=== PATIENT | female | born 1945 | race Caucasian/White ===

== ENCOUNTER → 2017-10-15 08:09 | Outpatient (CLI) | payer MEDICARE, SELFPAY ==
[2017-10-15 10:47] LABS: ALB/GLOB Ratio 1.1 RATIO (0.9-2.4); AST(SGOT) 28 U/L (15-37); Alanine Aminotransfer ALT/SGPT 38 U/L (13-56); Albumin, Serum 3.7 g/dL (3.2-5.0); Alkaline Phosphatase 74 U/L (45-117); Anion Gap 7 (5-15); BUN 8 mg/dL (7-18); BUN/Creat Ratio 8.2 RATIO (10-20); Calcium,Total 9.2 mg/dL (8.5-10.1); Chloride 106 mmol/L (98-107); Creatinine, Serum 0.98 mg/dL (0.55-1.02); EST Glomerular Filtration Rate 59 mL/min (>60); Est Glom Filt Rate - Afr Amer 71 mL/min (>60); Globulin 3.5 g/dL (2.2-4.2); Glucose 92 mg/dL (74-106); Potassium 3.8 mmol/L (3.5-5.1); Protein, Total 7.2 g/dL (6.4-8.2); Sodium Level 142 mmol/L (136-145)
[2017-10-15 10:54] LABS: Absolute Neutrophil Count 2.5 X10^3/uL (2.0-7.7); Basophil# 0.01 X10^3/uL; Basophil% 0.3 % (0-1); Hematocrit 37.4 % (37-47); Hemoglobin 12.1 g/dl (12.0-15.0); Lymphocyte % 20.2 % (19-41); Mean Corp Hgb Conc 32.4 g/gl (32-36); Mean Corpuscular Hgb 30.5 pg (27.0-32.0); Mean Corpuscular Volume 94.2 fL (81-99); Mean Platelet Vol. 9.8 fl (6.2-12.0); Monocyte# 0.29 X10^3/uL; Monocyte% 8.4 % (0-10); Neutrophil # 2.45 X10^3/uL (2.7-7.7); Neutrophil % 70.8 % (47-70); Platelet Count 356 K/mm3 (150-450); RBC Distribution Width CV 15.3 % (11.6-14.6); RBC Distribution Width SD 50.6 fl (35.1-43.9); Red Blood Count 3.97 M/mm3 (4.2-5.4); White Blood Count 3.5 K/mm3 (4.4-11.0)
[2017-10-15 11:01] LABS: POSITIVE COUNT NO; POSITIVE DIFFERENTIAL NO; POSITIVE MORPHOLOGY NO
== END ==
PROVIDERS: Family Provider Internal Medicine; PCP Internal Medicine; Visit Provider Internal Medicine Rheumatology
DX: M06.4 Inflammatory polyarthropathy (principal); M17.0 Bilateral primary osteoarthritis of knee; M19.071 Primary osteoarthritis, right ankle and foot; K76.0 Fatty (change of) liver, not elsewhere classified; K21.9 Gastro-esophageal reflux disease without esophagitis; M47.896 Other spondylosis, lumbar region; H33.001 Unspecified retinal detachment with retinal break, right eye; E78.5 Hyperlipidemia, unspecified; Z79.899 Other long term (current) drug therapy
CPT/HCPCS: 36415; 80053; 85025

== ENCOUNTER → 2017-12-25 10:43 | Outpatient (CLI) | payer MEDICARE, SELFPAY ==
--- NOTE | 2017-12-25 10:44 | CDU_ITS ---
Reason For Study: Carotid stenosis Rt. Velocities/BP Lt. Velocities/BP Prox CCA 87.9/18.2 cm/sec. Prox CCA 134.0/24.4 cm/sec. Mid CCA 92.6/19.3 cm/sec. Mid CCA 119.0/26.7 cm/sec. Dist CCA 92.0/18.2 cm/sec. Dist CCA 86.4/23.6 cm/sec. Prox ICA 81.5/17.6 cm/sec. Prox ICA 54.3/13.8 cm/sec. Mid ICA 105.0/32.2 cm/sec. Mid ICA 87.4/27.0 cm/sec. Dist ICA 80.7/19.2 cm/sec. Dist ICA 96.7/29.3 cm/sec. Rt. ICA/CCA = 1.1. Lt. ICA/CCA = .81. Prox ECA 151.0/22.8 cm/sec. Prox ECA 113.0/17.6 cm/sec. Rt. Vert. 59.8/17.0 cm/sec. Lt. Vert. 80.3/18.8 cm/sec. Right Extracranial There is intimal thickening but no significant atherosclerotic plaque noted in the right common carotid artery. There is intimal thickening but no significant atherosclerotic plaque noted in the right internal carotid artery. There is intimal thickening but no significant atherosclerotic plaque noted in the right external carotid artery. Antegrade flow is noted in the right vertebral artery. Left Extracranial There is intimal thickening but no significant atherosclerotic plaque noted in the left common carotid artery. There is intimal thickening but no significant atherosclerotic plaque noted in the left internal carotid artery. There is heterogeneous, irregular atherosclerotic plaque noted in the left external carotid artery. Antegrade flow is noted in the left vertebral artery. Procedure Carotid Duplex 92165. Exam performed in department. Interpretation Summary Mild (<50%) stenosis right extracranial internal carotid. Mild (<50%) stenosis left extracranial internal carotid. Flow within the vertebral arteries is antegrade bilaterally. Ordering Physician: Camryn Faith Referring Physician: Camryn Faith Performed By: Adelita Ramirez RVT
== END ==
PROVIDERS: Family Provider Internal Medicine; PCP Internal Medicine; Visit Provider Internal Medicine
DX: I65.23 Occlusion and stenosis of bilateral carotid arteries (principal); Z78.0 Asymptomatic menopausal state
CPT/HCPCS: 93880

== ENCOUNTER → 2018-01-23 10:39 | Outpatient (CLI) | payer MEDICARE, SELFPAY ==
[2018-01-23 12:14] LABS: Absolute Lymphocyte Count 0.91 X10^3/ul (0.83-4.51); Absolute Neutrophil Count 3.3 X10^3/uL (2.0-7.7); Basophil# 0.01 X10^3/uL; Basophil% 0.2 % (0-1); Eosinophil# 0.06 X10^3/uL; Eosinophils% 1.3 % (0-5); Hematocrit 40.8 % (37-47); Hemoglobin 12.8 g/dl (12.0-15.0); Lymphocyte # 0.91 X10^3/ul (4.0); Lymphocyte % 19.4 % (19-41); Mean Corp Hgb Conc 31.4 g/gl (32-36); Mean Corpuscular Hgb 30.5 pg (27.0-32.0); Mean Corpuscular Volume 97.1 fL (81-99); Mean Platelet Vol. 9.4 fl (6.2-12.0); Monocyte% 8.5 % (0-10); Neutrophil % 70.4 % (47-70); POSITIVE COUNT NO; POSITIVE DIFFERENTIAL NO; POSITIVE MORPHOLOGY NO; Platelet Count 344 K/mm3 (150-450); RBC Distribution Width CV 15.3 % (11.6-14.6); RBC Distribution Width SD 53.4 fl (35.1-43.9); White Blood Count 4.7 K/mm3 (4.4-11.0)
[2018-01-23 12:49] LABS: ALB/GLOB Ratio 1.1 RATIO (0.9-2.4); AST(SGOT) 54 U/L (15-37); Alanine Aminotransfer ALT/SGPT 66 U/L (13-56); Albumin, Serum 3.9 g/dL (3.2-5.0); Alkaline Phosphatase 100 U/L (45-117); Anion Gap 6 (5-15); BUN 11 mg/dL (7-18); BUN/Creat Ratio 11.3 RATIO (10-20); Calcium,Total 9.7 mg/dL (8.5-10.1); Chloride 105 mmol/L (98-107); Creatinine, Serum 0.97 mg/dL (0.55-1.02); EST Glomerular Filtration Rate 60 mL/min (>60); Est Glom Filt Rate - Afr Amer 72 mL/min (>60); Globulin 3.7 g/dL (2.2-4.2); Glucose 105 mg/dL (74-106); Protein, Total 7.6 g/dL (6.4-8.2); Sodium Level 140 mmol/L (136-145)
== END ==
PROVIDERS: Family Provider Internal Medicine; PCP Internal Medicine; Visit Provider Internal Medicine Rheumatology
DX: M06.4 Inflammatory polyarthropathy (principal); M17.0 Bilateral primary osteoarthritis of knee; M19.071 Primary osteoarthritis, right ankle and foot; M79.7 Fibromyalgia; M47.896 Other spondylosis, lumbar region; K76.0 Fatty (change of) liver, not elsewhere classified; H33.001 Unspecified retinal detachment with retinal break, right eye; E78.5 Hyperlipidemia, unspecified; K21.9 Gastro-esophageal reflux disease without esophagitis; F41.9 Anxiety disorder, unspecified; Z79.899 Other long term (current) drug therapy
CPT/HCPCS: 36415; 80053; 85025

== ENCOUNTER → 2018-02-01 13:40 | Outpatient (CLI) | payer MEDICARE, SELFPAY ==
--- NOTE | 2018-02-01 13:41 | BI_ITS ---
MAMMOGRAPHY - BILATERAL DIAGNOSTIC REASON FOR EXAM: Female, 72 years old. Right breast lump. PERTINENT HISTORY: Daughter with breast cancer. Prior left excisional breast biopsy. TECHNIQUE: Digital bilateral breast stephanie (3D mammographic acquisition) in the CC and MLO projections. 2-D mediolateral oblique (MLO) and craniocaudad (CC) views of both breasts were obtained. CAD: Full Field Digital Mammography with Computer Added Detection was performed. COMPARISON: Comparison is made with prior study dated April 16, 2017 and February 15, 2016. FINDINGS: Breast Composition: There are scattered areas of fibroglandular density. There are no dominant masses or suspicious calcifications. Stable 4 mm well-defined nodule in the upper slightly lateral portion of the left breast. No other significant abnormalities are identified. There has been no significant change since the prior study. BI/DIAG MAMM W/CAD, BILAT IMPRESSION: Stable bilateral diagnostic mammogram. With the patient's history of a palpable abnormality in the inferior retroareolar region of the right breast, correlation with ultrasound is recommended. ASSESSMENT CATEGORY: BIRADS Category 0: Incomplete. Need additional imaging evaluation. A letter regarding these results will be sent to the patient by the facility within 30 days. Approximately 10% of breast cancers are not detected by mammography. A normal mammogram should not delay biopsy of a clinically suspicious abnormality. Electronically Signed: Zbigniew Perez MD at 15:36 EDT Tel [phone], Service support ,
--- NOTE | 2018-02-01 13:41 | US_ITS ---
STUDY: ULTRASOUND BREAST - RIGHT REASON FOR EXAM: Female, 72 years old. Palpable lump in the right breast. TECHNIQUE: Axial and longitudinal images of the RIGHT breast were performed with a high resolution ultrasound transducer. COMPARISON: Comparison is made with prior mammogram done earlier today. FINDINGS: RIGHT Breast: The inferior aspect of the right breast was examined by ultrasound. No solid or cystic mass lesion is seen. US/Breast Limited Unilateral IMPRESSION: Unremarkable sonographic examination. ASSESSMENT CATEGORY: BIRADS Category 1: Negative. A letter regarding these results will be sent to the patient by the facility within 30 days. Electronically Signed: Zbigniew Perez MD at 15:46 EDT Tel [phone], Service support ,
== END ==
PROVIDERS: Family Provider Internal Medicine; PCP Internal Medicine; Visit Provider Nurse Practitioner Women's Health
DX: N64.4 Mastodynia (principal); N63.10 Unspecified lump in the right breast, unspecified quadrant
CPT/HCPCS: 76642; 77062; 77066; G0279

== ENCOUNTER → 2018-02-19 08:18 | Outpatient (CLI) | payer MEDICARE, SELFPAY ==
[2018-02-19 10:31] LABS: Absolute Lymphocyte Count 0.84 X10^3/ul (0.83-4.51); Absolute Neutrophil Count 4.5 X10^3/uL (2.0-7.7); Basophil# 0.02 X10^3/uL; Basophil% 0.3 % (0-1); Eosinophil# 0.01 X10^3/uL; Eosinophils% 0.2 % (0-5); Hematocrit 40.5 % (37-47); Lymphocyte # 0.84 X10^3/ul (4.0); Lymphocyte % 14.5 % (19-41); Mean Corp Hgb Conc 32.1 g/gl (32-36); Mean Corpuscular Hgb 31.2 pg (27.0-32.0); Mean Corpuscular Volume 97.1 fL (81-99); Mean Platelet Vol. 9.8 fl (6.2-12.0); Monocyte# 0.44 X10^3/uL; Monocyte% 7.6 % (0-10); Neutrophil # 4.45 X10^3/uL (2.7-7.7); Neutrophil % 77.1 % (47-70); Platelet Count 358 K/mm3 (150-450); RBC Distribution Width CV 13.8 % (11.6-14.6); RBC Distribution Width SD 47.7 fl (35.1-43.9); Red Blood Count 4.17 M/mm3 (4.2-5.4); White Blood Count 5.8 K/mm3 (4.4-11.0)
[2018-02-19 10:35] LABS: POSITIVE COUNT NO; POSITIVE DIFFERENTIAL NO; POSITIVE MORPHOLOGY NO
[2018-02-19 10:50] LABS: Albumin, Serum 3.8 g/dL (3.2-5.0); BUN 9 mg/dL (7-18); BUN/Creat Ratio 9.7 RATIO (10-20); Creatinine, Serum 0.93 mg/dL (0.55-1.02); EST Glomerular Filtration Rate 63 mL/min (>60); Est Glom Filt Rate - Afr Amer 76 mL/min (>60); Globulin 3.6 g/dL (2.2-4.2); Glucose 90 mg/dL (74-106); Protein, Total 7.4 g/dL (6.4-8.2)
[2018-02-19 10:51] LABS: ALB/GLOB Ratio 1.1 RATIO (0.9-2.4); AST(SGOT) 25 U/L (15-37); Alanine Aminotransfer ALT/SGPT 34 U/L (13-56); Alkaline Phosphatase 101 U/L (45-117); Anion Gap 5 (5-15); Calcium,Total 9.7 mg/dL (8.5-10.1); Chloride 104 mmol/L (98-107); Potassium 3.9 mmol/L (3.5-5.1); Sodium Level 139 mmol/L (136-145)
== END ==
PROVIDERS: Family Provider Internal Medicine; PCP Internal Medicine; Visit Provider Internal Medicine Rheumatology
DX: M06.4 Inflammatory polyarthropathy (principal); M17.0 Bilateral primary osteoarthritis of knee; M19.071 Primary osteoarthritis, right ankle and foot; M79.7 Fibromyalgia; K76.0 Fatty (change of) liver, not elsewhere classified; M47.896 Other spondylosis, lumbar region; H33.001 Unspecified retinal detachment with retinal break, right eye; E78.5 Hyperlipidemia, unspecified; K21.9 Gastro-esophageal reflux disease without esophagitis; F41.9 Anxiety disorder, unspecified; Z79.899 Other long term (current) drug therapy
CPT/HCPCS: 36415; 80053; 85025

== ENCOUNTER → 2018-04-04 09:26 | Outpatient (CLI) | payer MEDICARE, SELFPAY ==
[2018-04-04 12:22] LABS: Absolute Lymphocyte Count 0.71 X10^3/ul (0.83-4.51); Absolute Neutrophil Count 3.5 X10^3/uL (2.0-7.7); Basophil# 0.01 X10^3/uL; Basophil% 0.2 % (0-1); Eosinophil# 0.02 X10^3/uL; Eosinophils% 0.4 % (0-5); Hematocrit 37.8 % (37-47); Lymphocyte # 0.71 X10^3/ul (4.0); Lymphocyte % 15.1 % (19-41); Mean Corp Hgb Conc 31.7 g/gl (32-36); Mean Corpuscular Hgb 30.5 pg (27.0-32.0); Mean Corpuscular Volume 95.9 fL (81-99); Mean Platelet Vol. 9.6 fl (6.2-12.0); Monocyte# 0.42 X10^3/uL; Monocyte% 8.9 % (0-10); Neutrophil # 3.53 X10^3/uL (2.7-7.7); Neutrophil % 75.2 % (47-70); Platelet Count 392 K/mm3 (150-450); RBC Distribution Width CV 13.6 % (11.6-14.6); RBC Distribution Width SD 46.1 fl (35.1-43.9); Red Blood Count 3.94 M/mm3 (4.2-5.4); White Blood Count 4.7 K/mm3 (4.4-11.0)
[2018-04-04 12:29] LABS: POSITIVE COUNT NO; POSITIVE DIFFERENTIAL NO; POSITIVE MORPHOLOGY NO
[2018-04-04 12:38] LABS: AST(SGOT) 30 U/L (15-37); Alanine Aminotransfer ALT/SGPT 32 U/L (13-56); Albumin, Serum 3.6 g/dL (3.2-5.0); Alkaline Phosphatase 91 U/L (45-117); Anion Gap 10 (5-15); BUN 14 mg/dL (7-18); BUN/Creat Ratio 13.7 RATIO (10-20); Calcium,Total 9.1 mg/dL (8.5-10.1); Chloride 107 mmol/L (98-107); Creatinine, Serum 1.02 mg/dL (0.55-1.02); EST Glomerular Filtration Rate 56 mL/min (>60); Est Glom Filt Rate - Afr Amer 68 mL/min (>60); Globulin 3.5 g/dL (2.2-4.2); Glucose 98 mg/dL (74-106); Protein, Total 7.1 g/dL (6.4-8.2); Sodium Level 144 mmol/L (136-145)
== END ==
PROVIDERS: Family Provider Internal Medicine; PCP Internal Medicine; Visit Provider Internal Medicine Rheumatology
DX: M06.4 Inflammatory polyarthropathy (principal); M17.0 Bilateral primary osteoarthritis of knee; M19.071 Primary osteoarthritis, right ankle and foot; M79.7 Fibromyalgia; K76.0 Fatty (change of) liver, not elsewhere classified; H33.001 Unspecified retinal detachment with retinal break, right eye; M47.896 Other spondylosis, lumbar region; E78.5 Hyperlipidemia, unspecified; K21.9 Gastro-esophageal reflux disease without esophagitis; F32.89 Other specified depressive episodes; F41.9 Anxiety disorder, unspecified; Z79.899 Other long term (current) drug therapy
CPT/HCPCS: 36415; 80053; 85025

== ENCOUNTER → 2018-04-16 06:06 | Outpatient (CLI) | payer MEDICARE, SELFPAY ==
--- NOTE | 2018-04-16 17:09 | STRESSREP ---
Stress Test Report Date: 04/16/2018 Procedure: Exercise tolerance test/imaging study Indications: Shortness of breath/dyspnea on exertion Consent: Per the patient Procedure: The patient exercised on a Darian protocol for 6 minutes and 30 seconds completing Stage II and 30 seconds of Stage III achieving a peak heart rate of 139 bpm (95 % predicted maximal heart rate) with a peak blood pressure 184/60 mmHg and a peak MET capacity of 7 METs. The baseline ECG demonstrated normal sinus rhythm. The peak exercise ECG demonstrated no obvious ECG changes. There were no cardiac dysrhythmias pretest, during exercise, or recovery. The functional capacity was considered average. There was no complaint of chest discomfort during exercise or recovery. The examination was discontinued secondary to dyspnea. Impression: 1. Technically adequate (percent predicted maximal heart rate greater than 85%) exercise tolerance test 2. Peak exercise ECG with no obvious ECG changes 3. There were no cardiac dysrhythmias pretest, during exercise, or recovery. 4. Nuclear images pending Myocardial perfusion imaging study: Technique: The patient was injected with 11.3 mCi of technetium 99m Cardiolite and subsequently rest SPECT Cardiolite nuclear imaging was obtained in the horizontal long, vertical long, and short axis views. The patient exercised on a Darian protocol for 6 minutes and 30 seconds completing Stage II and 30 seconds of Stage III achieving a peak heart rate of 139 bpm (95 % predicted maximal heart rate) with a peak blood pressure 184/60 mmHg and a peak MET capacity of 7 METs. The patient was injected with 32.9 mCi of technetium 99m Cardiolite and subsequently stress SPECT Cardiolite nuclear imaging was obtained in the horizontal long, vertical long, and short axis views. A gated Cardiolite study at peak stress was obtained. Interpretation: Rest and stress SPECT Cardiolite nuclear imaging status post realignment, normalization, and attenuation correction, demonstrates the appearance of relative uniform tracer uptake and myocardial perfusion appearing within normal limits. There is end systolic thickening and brightening. The gated Cardiolite study demonstrates myocardial thickening and inward wall motion. The reported LVEF is 86 %. Impression: 1. Rest and stress SPECT Cardiolite nuclear imaging demonstrate relative uniform tracer uptake and myocardial perfusion appearing within normal limits. 2. The gated Cardiolite study reports an LVEF of 86 %. This note was generated with [employer] software. It may contain incorrect words, spelling, and punctuation that were not noted in checking the note before signing.
== END ==
PROVIDERS: Family Provider Internal Medicine; PCP Internal Medicine; Visit Provider Internal Medicine
DX: R06.02 Shortness of breath (principal); R10.13 Epigastric pain
CPT/HCPCS: 76705; 78452; 93017; 93306; A9500; A4216

== ENCOUNTER → 2018-04-30 08:00 | Outpatient (CLI) | payer MEDICARE, SELFPAY | PROVIDERS: Family Provider Internal Medicine; PCP Internal Medicine; Visit Provider Surgery | DX: K44.9 Diaphragmatic hernia without obstruction or gangrene (principal); R10.13 Epigastric pain | CPT/HCPCS: 74246 ==

== ENCOUNTER → 2018-05-08 08:45 | Outpatient (CLI) | payer MEDICARE, SELFPAY ==
--- OUTSIDE RECORDS SUMMARY | 2018-05-01 07:16 | XMS RPT_ITS ---
:1945 Author Organization OHIP Support Name Relationship Address Phone AYAAN OCTAVIA Unavailable [address] + [address] [place] [address] R Unavailable Unavailable Unavailable GUPTA, KAMRYN Unavailable [address] + [place] [address] OCTAVIA BROWN Unavailable [address] + [address] [place] [address] R Unavailable Unavailable Unavailable GUPTA, KAMRYN Unavailable [address] + [place] [address] OCTAVIA BROWN Unavailable [address] + [address] [place] [address] R Unavailable Unavailable Unavailable GUPTA, KAMRYN Unavailable [address] + [place] [address] OCTAVIA BROWN Unavailable [address] + [address] [place] [address] R Unavailable Unavailable Unavailable GUPTA, KAMRYN Unavailable [address] + [place] [address] OCTAVIA BROWN Unavailable [address] + [address] [place] [address] R Unavailable Unavailable Unavailable GUPTA, KAMRYN Unavailable [address] + [place] [address] OCTAVIA BROWN Unavailable [address] + [address] [place] [address] R Unavailable Unavailable Unavailable GPUTA, KAMRYN Unavailable [address] + [place] [address] OCTAVIA BROWN Unavailable [address] + [address] [place] [address] R Unavailable Unavailable Unavailable GUPTA, KAMRYN Unavailable [address] + [place] [address] OCTAVIA BROWN Unavailable [address] + [address] [place] [address] R Unavailable Unavailable Unavailable GUPTA, KAMRYN Unavailable [address] + [place] [address] OCTAVIA BROWN Unavailable [address] + [address] [place] [address] R Unavailable Unavailable Unavailable GUPTA, KAMRYN Unavailable [address] + [place] [address] OCTAVIA BROWN Unavailable [address] + [address] [place] [address] R Unavailable Unavailable Unavailable GUPTA, KAMRYN Unavailable [address] + [place] [address] OCTAVIA BROWN Unavailable [address] + [address] [place] [address] R Unavailable Unavailable Unavailable GUPTA, KAMRYN Unavailable [address] + [place] [address] OCTAVIA BROWN Unavailable [address] + [address] [place] [address] R Unavailable Unavailable Unavailable GUPTA, KAMRYN Unavailable [address] + [place] [address] OCTAVIA BROWN JR Unavailable [address] + [address] [place] [address] R Unavailable Unavailable Unavailable GUPTA, KAMRYN Unavailable [address] + [place] [address] Care Team Providers Name Role Phone Sybil Gill Attending Unavailable Camryn Faith Primary Care Unavailable Carmine Reddy Attending Unavailable Camryn Faith Referring Unavailable Camryn Faith Primary Care Unavailable Sybil Gill Attending Unavailable Vellanki, Sybil Referring Unavailable Marcell, Camryn Primary Care Unavailable Marcell, Camryn Attending Unavailable Marcell, Camryn Referring Unavailable Marcell, Camryn Primary Care Unavailable Vellanki, Sybil Attending Unavailable Vellanki, Sybil Referring Unavailable Marcell, Camryn Primary Care Unavailable [place], Lawanda Attending Unavailable Marcell, Camryn Referring Unavailable Marcell, Camryn Primary Care Unavailable [place], Lawanda Attending Unavailable [place], Lawanda Referring Unavailable Marcell, Camryn Primary Care Unavailable Vellanki, Sybil Attending Unavailable Vellanki, Sybil Referring Unavailable Marcell, Camryn Primary Care Unavailable Vellanki, Sybil Attending Unavailable Vellanki, Sybil Referring Unavailable Marcell, Camryn Primary Care Unavailable Marcell, Camryn Attending Unavailable Marcell, Camryn Referring Unavailable Marcell, Camryn Primary Care Unavailable Cebul, Rylan Attending Unavailable Marcell, Camryn Referring Unavailable Marcell, Camryn Primary Care Unavailable Cebul, Rylan Attending Unavailable Cebul, Rylan Referring Unavailable Marcell, Camryn Primary Care Unavailable SuhailPino Attending Unavailable Suhail, Pino Veliz Referring Unavailable Marcell, Carmyn Primary Care Unavailable PROBLEMS PROBLEMS DATE TYPE CONDITION / CODE ATTENDING STATUS SOURCE 04/30/2018 Unknown K44.9 - Diaphragmatic Cebul, Rylan Active [facility] hernia without Community obstruction or Hospital gangrene / Repository K44.9(ICD-10) 04/30/2018 Unknown R10.13 - Epigastric Cebul, Rylan Active [facility] pain / R10.13(ICD-10) Community Hospital Repository 04/25/2018 Unknown K21.9 - Cebul, Rylan Active [facility] Gastro-esophageal Community reflux disease Hospital without esophagitis / Repository K21.9(ICD-10) 04/25/2018 Unknown R06.02 - Shortness of Cebul, Rylan Active [facility] breath / Community R06.02(ICD-10) Hospital Repository 04/25/2018 Unknown Z12.10 - Encounter CebuRylan suarez Active [facility] for screening for Community malignant neoplasm of Hospital intestinal tract, Repository unspecified / Z12.10(ICD-10) 02/19/2018 Unknown M06.4 - Inflammatory Vellanki, 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 / Community M06.4(ICD-10) Hospital Repository 02/19/2018 Unknown Z79.899 - Other long Vellanki, Sybil Active [facility] term (current) drug Community therapy / Hospital Z79.899(ICD-10) Repository 02/19/2018 Unknown M79.7 - Fibromyalgia Vellanki, Sybil Active [facility] / M79.7(ICD-10) Community Hospital Repository 02/19/2018 Unknown M15.9 - Vellanki, 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, Community unspecified / Hospital M15.9(ICD-10) Repository 02/19/2018 Unknown 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, Sybil Active [facility] primary Community osteoarthritis of Hospital knee / M17.0(ICD-10) Repository 02/19/2018 Unknown 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, Sybil Active [facility] osteoarthritis, right Community ankle and foot / Hospital M19.071(ICD-10) Repository 02/19/2018 Unknown K76.0 - Fatty (change Vellanki, Sybil Active [facility] of) liver, not Community elsewhere classified Hospital / K76.0(ICD-10) Repository 02/19/2018 Unknown M47.896 - Other Vellanki, Sybil Active [facility] spondylosis, lumbar Community region / Hospital M47.896(ICD-10) Repository 02/19/2018 Unknown H33.001 - Unspecified Vellanki, Sybil Active [facility] detachment [facility] with retinal break, Hospital right eye / Repository H33.001(ICD-10) 02/19/2018 Unknown E78.5 - Vellanki, Sybil Active [facility] Hyperlipidemia, Community unspecified / Hospital E78.5(ICD-10) Repository 02/19/2018 Unknown F41.9 - Anxiety Vellanki, Sybil Active [facility] disorder, unspecified Community / F41.9(ICD-10) Hospital Repository 01/29/2018 Unknown Z12.31 - Encounter [place], Lawanda Active [facility] for screening Community mammogram for Hospital malignant neoplasm of Repository breast / Z12.31(ICD-10) 01/29/2018 Unknown N64.4 - Mastodynia / Jorge, Lawanda Active [facility] N64.4(ICD-10) Community Hospital Repository 01/29/2018 Unknown N63.10 - Unspecified Jorge, Lawanda Active [facility] lump in the right Community breast, unspecified Hospital quadrant / Repository N63.10(ICD-10) 01/29/2018 Unknown Z01.411 - Encounter Lawanda Patel Active [facility] for gynecological Community examination (general) Hospital (routine) with Repository abnormal findings / Z01.411(ICD-10) 01/29/2018 Unknown N95.2 - Lawanda Patel Active [facility] Postmenopausal Community atrophic vaginitis / Hospital N95.2(ICD-10) Repository 12/25/2017 Unknown I65.23 - Occlusion Marcell, Active [facility] and stenosis of [facility] bilateral carotid Hospital arteries / Repository I65.23(ICD-10) 12/25/2017 Unknown Z78.0 - Asymptomatic Marcell, Active [facility] menopausal state / [facility] Z78.0(ICD-10) Hospital Repository 07/30/2017 Unknown INFLAMMATORY Vellanki, Sybil Active [facility] POLYARTHROPATHY / Community M06.4(ICD-10) Hospital Repository 07/30/2017 Unknown BILATERAL PRIMARY Vellanki, Sybil Active [facility] OSTEOARTHRITIS OF Community KNEE / M17.0(ICD-10) Hospital Repository 07/30/2017 Unknown PRIMARY Vellanki, Sybil Active [facility] OSTEOARTHRITIS, RIGHT Community ANKLE AND FOOT / Hospital M19.071(ICD-10) Repository 07/30/2017 Unknown FIBROMYALGIA / Vellanki, Sybil Active [facility] M79.7(ICD-10) [facility] Hospital Repository 07/30/2017 Unknown FATTY (CHANGE OF) Vellanki, Sybil Active [facility] LIVER, NOT ELSEWHERE Community CLASSIFIED / Hospital K76.0(ICD-10) Repository 07/30/2017 Unknown OTHER SPONDYLOSIS, Vellanki, Sybil Active [facility] LUMBAR REGION / Community M47.896(ICD-10) Hospital Repository 07/30/2017 Unknown UNSPECIFIED RETINAL Vellanki, Sybil Active [facility] DETACHMENT WITH Community RETINAL BREAK, RIGHT Hospital EYE / H33.001(ICD-10) Repository 07/30/2017 Unknown HYPERLIPIDEMIA, Vellanki, Sybil Active [facility] UNSPECIFIED / Community E78.5(ICD-10) Hospital Repository 07/30/2017 Unknown GASTRO-ESOPHAGEAL Vellanki, Sybil Active [facility] REFLUX DISEASE Community WITHOUT ESOPHAGITIS / Hospital K21.9(ICD-10) Repository 07/30/2017 Unknown OTHER SPECIFIED Vellanki, Sybil Active [facility] DEPRESSIVE EPISODES / Community F32.89(ICD-10) Hospital Repository 07/30/2017 Unknown ANXIETY DISORDER, Sybil Gill Active [facility] UNSPECIFIED / Community F41.9(ICD-10) Hospital Repository 07/30/2017 Unknown OTHER VIDEO PRODUCTION COORDINATOR Sybil Gill Active [facility] (CURRENT) DRUG Community THERAPY / Hospital Z79.899(ICD-10) Repository PROCEDURES PROCEDURES No Procedure Records FoundRESULTS RESULTS UPPER GI W/BA Observed: 04/30/2018 Status: F Source: [place] SWALLOW 8:02 AM [facility] [id number] [place] [address]Zevym GI w/BA SwallowMR#: [id number] Acct: [id number]: JENS BROWN Rep #: [id number]: F 72 From: Zbigniew Perez MDPCP: Camryn Faith DO Status: REG CLIStudy: Upper GI w/BA Swallow Date of Exam: 04/30/18Exam# [id number] Ordering Dr: Rylan Bird MDSTUDY: AIR-CONTRAST UPPER GI SERIES.REASON FOR EXAM: Female , 72 years old. Epigastric pain.FLUOROSCOPY TIME (if supplied): (1:00) minutes/secondsTECHNIQUE: The patient ingested barium. Multiple images of the esophagusstomach and duodenum were obtained.COMPARISON: None. FINDINGS:The esophagus is unremarkable. There is no evidence of gastroesophagealreflux. No mass lesion is seen. The patient ingested a 12 mm tablet ofbarium without any difficulty.The stomach and duodenum are unremarkable. There is no evidence ofulceration. ORDER #: [id number] RAD/Upper GI w/BA SwallowIMPRESSION:Unremarkable examination.Electronically Signed:Zbigniew Perez MD at 15:59 EDTTel [phone], Service support , IP: Camryn Faith DO; Rylan Bird MD Trailer Body Assembler:Signed SURGERY VISIT REPORT Observed: 04/25/2018 Status: F Source: [place] 9:12 AM [facility] REPOSITORY [facility] [address] [place] [address] [id number] VISITDate of Service: 04/25/18MR#: [id number] Acct: [id number]: JENS BROWN Rk Rep #: [id number]: 1945 Provider: Rylan Bird MDAge/Sex: 72/F [facility]: [facility]OCIATIONWSAStatus: SignedIntakeVital Signs04/25/18 Height 5 ft 1 in04/25/18 Weight: 149 lb 5 oz04/25/18 Body Mass Index (BMI) 28.208 Blood Pressure 166/75IntakeVisit Reasons: Acid RefluxChief Complaint: gerd, need for colonoscopyInterpreter Required: NoIs patient in pain?: NoAllergieserythromycin base Allergy (Verified 04/25/18 08:41)Rashibuprofen [From Motrin] Allergy (Verified 04/25/18 08:41)Rashdicyclomine HCl [From Bentyl] Adverse Reaction (Verified 08:41)Nauseanitrofurantoin Adverse Reaction (Verified 04/25/18 08:41) NauseaSulfa (Sulfonamide Antibiotics) Adverse Reaction (Verified 04/25/18 08:41)NauseaMedicationstraMADol [Ultram] 100 mg PO BID 09/30/13 [History Confirmed 04/25/18]Bergamot [Rosebud Bergamot] 02/12/17 [History Confirmed 04/25/18]Cyanocobalamin (Vitamin B-12) [B-12] 2,000 mcg PO DAILY 02/12/17 [ History Confirmed 04/25/18]Duloxetine HCl 60 mg PO DAILY 02/12/17 [History Confirmed 04/25/18]Folic Acid 2 mg PO DAILY 02/12/17 [History Confirmed 04/25/18] busPIRone [Buspar] 15 mg PO BID 02/12/17 [History Confirmed 04/25/18]Esomeprazole Magnesium [Nexium 24Hr] 22.3 mg PO BID 03/14/17 [History Confirmed 04/25/18]aspirin 81 mg chewable tablet 81 mg PO QDAY 01/29/18 [History Confirmed 04/25/18] cholecalciferol (vit D3) 1,000 unit-vitamin K2 (MK4) 100 mcg tablet 1 tab PO QDAY 01/29/18[ History Confirmed 04/25/18]estradiol 0.01% (0.1 mg/gram) vaginal cream See Label Instructions VAGINAL .COMPLEX #42.5 g001/29/18 [Rx Confirmed 04/25/18]ferrous sulfate 324 mg (65 mg iron) tablet,delayed release 324 mg PO QDAY tab 01/29/18[History Confirmed 04/25/18]metformin ER 500 mg tablet,extended release 24 hr 500 mg PO QDAY 01/29 [History Xszvzvqut87/23/18]gabapentin 600 mg tablet 600 mg PO DAILY 04/25/18 [ History Confirmed 04/25/18]methotrexate sodium 2.5 mg tablet 12.5 mg PO QWEEK tab [History Confirmed 04/25/18]vitamin K2 40 mcg tablet 40 mcg PO DAILY 04/25/18 [History Confirmed 04/25/18]Is last menstrual period known: NoPost menopausal: YesPatient : NoPFSHMedical HistoryScreening for intestinal cancer (Acute)Shortness of breath (Acute)Anxiety (Acute)Arthritis (Acute)Constipation (Acute)Diabetes (Acute)Diverticula of colon (Acute)GERD (gastroesophageal reflux disease) (Acute)Rheumatoid arthritis (Acute)Surgical HistoryHistory of appendectomy (Acute)History of colectomy (Acute 03/2017)History of colonoscopy (Acute 03/2017)History of esophagogastroduodenoscopy (EGD) (Acute 2014)History of hysterectomy (Acute)History of laparoscopic cholecystectomy (Acute)Family HistoryMother CVA (cerebral vascular accident)Sister DiabetesHeart diseaseBrother Heart diseaseDaughter Breast cancerSocial HistorySmoking Status: Never smokeralcohol intake: neversubstance use type: does not usecaffeine: Yeswhat type of physical activity do you participate in: noneseatbelt use: alwaysdo you feel safe at home: Yesadditional social history: Octavia- Both are retiredHPIHPIHPI: JENS BROWN, is a 72 F who presents to the office today for surgical follow-up statuspost a laparoscopic sigmoid colectomy that performed for her for intractable recurrentdiverticulitis. I perform that procedure for her on March 19, 2017. She is very pleased withher progress and has not had any recurrent disease. Her final pathology showed diverticulardisease. It is of note that the colonoscopy that I attempted prior to that procedure could notbe accomplished due to the severity of her diverticular disease. Her only previouslyaccomplished colonoscopy was in 2004.She has had a previous CT scan February 12, 2017. She has evidence of previous cholecystectomy.To the diverticular disease. Demonstrated a small umbilical hernia at that time and smallhiatal hernia.Her previous upper endoscopy was June with H. pylori negative but with antralgastritis. Distal and proximal esophageal esophageal biopsies did not show esophagitis at thattime. She did have an abnormal pH probe study at that time.On this occasion the patient is also complaining of progressive new recurrent problems ofshortness of breath. She does have her head of bed elevated. She complains of intermittentepigastric pain and breakthrough problems with her chronic Nexium. She is interested in tryingto come off of her chronic Nexium. She does not eat within 2 hours of going to sleep.ROSGeneralGeneral: Yes weight change;no appetite, fatigue, colon cancer, breast cancer or weaknessHEENTHEENT: Yes eye surgery;no difficulty swallowing, eye injury, swollen glands or hoarsenessEndoEndocrine: No thyroid disease, diabetes mellitus, thyroid cancer, Hair loss, heat intoleranceor cold intoleranceMuscMusculoskeletal: Yes rheumatoid arthritis;no back problems, arthritis, gout or joint painCardioCardiovascular: No murmur, pacemaker, heart disease, atrial fibrillation, high blood pressure,heart attack, heart stent, palpitations, shortness of breat with exertion or chest painRespRespiratory: No shortness of breath, No sleep apnea, No cough, No COPD, No asthma, Noemphysema, No wheezingGastroGastrointestinal: Yes abdominal pain, Yes nausea or vomiting, No diarrhea, Yes constipation, Noblood in stool, Yes acid reflux, No hemorrhoids, No ulcers, No gallbladder problem, Noblack,tarry stoolsHemaHematologic: No blood thinners, No blood disorders, No bleeding, No anemia, No blood clotsNeuroNeurologic: No weaknessExamConstGeneral : cooperative, healthy appearing, comfortable, no acute distressHENMTHead: normal to inspectionEyesGeneral: appearance normal, both eyes and all related structuresNeckNeck: normal visual inspectionChestChest palpation AND inspection: normal inspection of the chestRespEffort AND Inspection: normal respiratory effortAuscultation: clear to auscultation bilaterallyCardioRate: regular rateRhythm: regular rhythmHeart Sounds: no murmursGIPalpation: soft, no hepatosplenomegalyOther: Well-healed mini Pfannenstiel incision from her colectomyWell-healed larger transverse right lower quadrant incision from a previous appendectomySmall nontender umbilical herniaMuscCervical Spine: normal cervical lordosisSkinGeneral: no rashes or lesions notedNeuroGeneral: CN's II-XI intact bilaterallyExtremGeneral: no calf tendernessPsychAffect: normal affectAssessment AND PlanProblems1. Shortness of breath R06.022. Gastroesophageal reflux disease, esophagitis presence not specified K21.93. Screening for intestinal cancer Z12.10PlanI am concerned that the patient's shortness of breath may be secondary to mechanical problemswith her hiatal hernia or intractable gastroesophageal reflux disease. It is been 3 years fromher previous testing. I recommend a esophagogastroduodenoscopy with anticipated biopsies andpH probe placement. The patient may require future manometry but that will not yet bescheduled. I am also requesting a upper GI contrast study to get imaging evidence of her upperGI tract.I am recommending a screening colonoscopy. The patient's previous successful screeningcolonoscopy was 2004. Her colonoscopy performed a year ago was not successful due to theseverity of her diverticular disease.She has had an opportunity to ask and have questions answered. She is very much interested intrying to limit her come off of her proton pump inhibitor Nexium. I believe that she may be afuture candidate for reflux surgery but as noted above we would need to additionally obtainmanometry.I appreciate the ongoing opportunity of assisting with her surgical careCc: Dr. Camryn Bird M.D., F.A.C.S.OrdersOrders: CodingLevel of Care CodeOff vis,est,level 3DiagnosesShortness of breath R06.02Gastroesophageal reflux disease, esophagitis presence not specified K21.9Esophagitis presence: esophagitis presence not specifiedScreening for intestinal cancer Z12.1008/ 0912 <Electronically signed by Rylan Bird MD>Date Rylan Bird MDCosigner Signature: Date (if applicable)CC: Camryn Faith DO STRESS REPORT Observed: 04/16/2018 Status: F Source: [place] 5:14 PM [facility] RE[facility] [address] [place], [place] [address]JZ#: [id number] Acct: [id number]: JENS BROWN Rep #: [id number]: 1945 72 From: [facility] southtammie Care: Camryn Faith DO Status: REG CLIOrdering Dr: Sex: F CStress Test ReportDate: 04/16/2018Procedure: Exercise tolerance test/imaging studyIndications: Shortness of breath/dyspnea on exertionConsent: Per the patientProcedure:The patient exercised on a Darian protocol for 6 minutes and 30 seconds completing Stage II and30 seconds of Stage III achieving a peak heart rate of 139 bpm (95 % predicted maximal heartrate) with a peak blood pressure 184/60 mmHg and a peak MET capacity of 7 METs.The baseline ECG demonstrated normal sinus rhythm. The peak exercise ECG demonstrated noobvious ECG changes.There were no cardiac dysrhythmias pretest, during exercise, or recovery.The functional capacity was considered average.There was no complaint of chest discomfort during exercise or recovery.The examination was discontinued secondary to dyspnea.Impression:1. Technically adequate (percent predicted maximal heart rate greater than 85%) exercisetolerance test2. Peak exercise ECG with no obvious ECG changes3. There were no cardiac dysrhythmias pretest, during exercise, or recovery.4. Nuclear images pendingMyocardial perfusion imaging study:Technique:The patient was injected with 11.3 mCi of technetium 99m Cardiolite and subsequently rest SPECTCardiolite nuclear imaging was obtained in the horizontal long, vertical long, and short axisviews. The patient exercised on a Darian protocol for 6 minutes and 30 seconds completing StageII and 30 seconds of Stage III achieving a peak heart rate of 139 bpm (95 % predicted maximalheart rate) with a peak blood pressure 184/60 mmHg and a peak MET capacity of 7 METs. Thepatient was injected with 32.9 mCi of technetium 99m Cardiolite and subsequently stress SPECTCardiolite nuclear imaging was obtained in the horizontal long, vertical long, and short axisviews. A gated Cardiolite study at peak stress was obtained.Interpretation :Rest and stress SPECT Cardiolite nuclear imaging status post realignment, normalization, andattenuation correction, demonstrates the appearance of relative uniform tracer uptake andmyocardial perfusion appearing within normal limits. There is end systolic thickening andbrightening. The gated Cardiolite study demonstrates myocardial thickening and inward wallmotion. The reported LVEF is 86 %.Impression:1. Rest and stress SPECT Cardiolite nuclear imaging demonstrate relative uniform tracer uptakeand myocardial perfusion appearing within normal limits.2. The gated Cardiolite study reports an LVEF of 86 %.This note was generated with MediaSiloation software. It may contain incorrect words,spelling, and punctuation that were not noted in checking the note before signing.04/16/18 1714 <Electronically signed by Julio Cote MD>Date Julio Cote [facility]: Camryn Faith DO Date Dictated: 04/16/181708Date Transcribed: 1708Transcriptionist: PMSkassandra ECHOCARDIOGRAM COMPLETE Observed: 04/16/2018 Status: F Source: [place] 4:00 PM [facility]POS[facility] [address] [place], [place] [address]Inbq Wbhszzus44/14/18 0844MR#: [id number] Acct: [id number]: JENS BROWN Rep #: [id number]: 1945 72 From: Julio Cote MDAttending Dr: Camryn Faith DO Status: REG CLIOrdering Dr: Camryn Faith DO Date: 04/16/18Location: [facility] Sex: F CAdmitted:Reason For Study: SOB on exertionProcedureThis was a 2D Doppler, Color Flow transthoracic echocardiogram. The exam was of fair technicalquality due to diminished acoustic windows. The study was technically difficult. Exam performedindepartment.Left VentricleNormal LV size. Left ventricular systolic function is normal. The estimated ejection fractionis 55%. Diastolic function: considered indeterminate. No regional wall motion abnormalities noted.Right VentricleNormal RV size. Normal systolic function.AtriaNormal left atrium. Normal right atrium. No doppler evidence for ASD.Mitral ValveThere is no mitral annular calcification. Normal mitral valve. Trivial mitral valveinsufficiency.Tricuspid ValveNormal tricuspid valve. Trivial tricuspid valve insufficiency. Right ventricular systolicpressureestimated to be 28 mmHg.Aortic ValveTrisinus/trileaflet aortic valve. Mild diffuse aortic valve thickening.Pulmonic ValveThe pulmonic valve is not well visualized.Great VesselsNormal sized aortic root.Pericardium/PleuralNo pericardial effusion.MMode/2D Measurements AND CalculationsLVIDd: 3.8 cm IVSd: 0.77 cm Ao root diam: 3.1 cmLVIDs: 2.6 cm LVPWd: 0.83 cm LA dimension: 3.5 cmFS: 32.2 % __LAV( MOD-bp): 39.3 ml LVAd ap4: 24.3 cm2 SV(MOD-sp4) : 36.5 mlLAV(MOD-bp) Indexed: 23.9 ml/m2 EDV(MOD-sp4): 65.9 mlLAV(MOD-sp2): 39.4 ml EDV(sp4-el): 67.8 mlLAV(MOD-sp4): 36.8 ml LVAs ap4: 14.5 cm2ESV(MOD-sp4): 29.5 mlESV(sp4-el): 28.9 mlEF(MOD-sp4): 55.3 %EF(sp4-el): 57.4 % __SV(s p4-el): 38.9 ml LA A4 area: 15.1 cm2 RA A4 area: 12.8 ta2Bfgx MeasurementsMV dec time: 0.20 secDoppler Measurements AND CalculationsMV E max luigi: 85.0 cm/sec Lat Peak E' Luigi: 8.0 cm/sec Med Peak E' Luigi: 6.7 cm/secMV A max luigi: 110.8 cm/sec E/E' lat: 10.6 E/E' med: 12.7MV E/A: 0.77 M V V2 max: 118.5 cm/sec MV P1/2t max luigi: 93.4 cm/sec Ao V2 max: 121.5 cm/secMV max P.6 mmHg MV P1/2t: 86.2 msec Ao max P.9 mmHgMV V2 mean: 64.1 cm/sec MV dec slope: 317.5 cm/sec2 Ao V2 mean: 76.8 cm/secMV mean P.9 mmHg MVA(P1/2t): 2.6 cm2 Ao mean P.7 mmHgMV V2 VTI: 26.0 cm Ao V2 VTI: 24.3 cm ___LV V1 max: 101.3 cm/sec PA V2 max: 97.3 cm/sec TR max luigi: 250.0 cm/secLV V1 max P.1 mmHg TR max P.0 mmHgLV V1 mean P.2 mmHgLV V1 mean: 68.5 cm/secLV V1 VTI: 23.1 cmInterpretation SummaryThe study was technically difficult.Left ventricular systolic function is normal.The estimated ejection fraction is 55 %.Trivial mitral valve insufficiency.Trivial tricuspid valve insufficiency.Mild diffuse aortic valve thickening.Right ventricular systolic pressure estimated to be 28 mmHg.Diastolic function: considered indeterminate. Ordering Physician: Camryn FaithReferring Physician: Camryn FaithPerformed By: Sam Quinones RCS 04/16/18 1559Date Julio Cote MDCC: Camryn Faith DO Date Dictated: 04/16/18 0844Date Transcribed: 04/16/18 1559Transcriptionist:Signed ABDOMEN LIMITED Observed: 04/16/2018 Status: F Source: [place] 9:19 AM [facility] REPOSITORY [facility]ITALIm[facility] [address] [place] [address]Chihaxl LimitedMR#: [id number] Acct: [id number]: JENS BROWN Rep #: [id number]: 1945 F 72 From: Bairon Fernandez MDPCP: Camryn Faith DO Status: REG CLIStudy: Abdomen Limited Date of Exam: 04/16/18Exam# [id number] Ordering Dr: Camryn Faith DOSTUDY: ABDOMINAL ULTRASOUND - RIGHT UPPER QUADRANTREASON FOR VISIT: Female, 72 years old. Epigastric pain x3 monthsTECHNIQUE: Ultrasound evaluation of the right upper quadrant wasperformed with real-time and static rene-scale imaging.TECHNICAL QUALITY: Adequate.COMPARISON: 05/03/2016 FINDINGS:Liver: The liver measures 15.8 cm. There is increased echogenicityconsistent with fatty infiltration. The bile ducts are within normallimits. There is hepatic color flow. The direction of portal flow ishepatopetal. There is no demonstrated mass lesion.Gallbladder: The patient is status post cholecystectomy.Common Bile Duct (C.B.D.): The common bile duct measures 4.0 mm.Pancreas: Normal size of the head, body and tail of the pancreas. Thereis normal echogenicity of the pancreas. There is no demonstratedpancreatic mass or cyst.Right Kidney: Normal size of the right kidney. The right kidney dmybreqx81.1 x 4.4 x 4.5 cm. Normal renal cortex. The right cortex measures 1.3cm. There is no demonstrated renal mass or cyst. There is mild righthydronephrosis. Nonobstructing stones noted. ORDER #: [id number] US/Abdomen LimitedIMPRESSION:Fatty infiltration of liver, no discrete lesion.Mild right hydronephrosis, there are nonobstructing stones noted in theright kidney.Previous cholecystectomyLimited evaluation of the left lower quadrant did not demonstrate asuspicious abnormality. There is sonographic evidence of a stone in theleft kidney.Electronically Signed:Terry Fernandez MD at 12:14 Han [phone], Service support , QH: Camryn Faith Trailer Body Assembler:Signed CBC W/DIFF, AUTOMATED Collected: 04/04/2018 Status: F Source: [place] 9:31 AM [facility] REPOSITORY TYPE CODE TESTS RESULT OUT OF RANGE REFERENCE UNITS LAB L100.1000 Normal 4.4-11.0 K/mm3 WBC 4.7 LAB L100.1200 Low 4.2-5.4 M/mm3 RBC 3.94 LAB L100.1300 Normal 12.0-15.0 g/dl HGB 12.0 LAB L100.1400 Normal 37-47 % HCT 37.8 LAB L100.1500 Normal 81-99 fL MCV 95.9 LAB L100.1600 Normal 27.0-32.0 pg MCH 30.5 LAB L100.1700 Low 32-36 g/gl MCHC 31.7 LAB L100.1810 Normal 11.6-14.6 % RDW 13.6 CV LAB L100.1820 High 35.1-43.9 fl RDW 46.1 SD LAB L100.1900 Normal 150-450 K/mm3 PLT 392 LAB L100.2000 Normal 6.2-12.0 fl MPV 9.6 LAB L100.2100 High 47-70 % NEUT% 75.2 LAB L100.2200 Low 19-41 % LY% 15.1 LAB L100.2300 Normal 0-10 % MONO% 8.9 LAB L100.2400 Normal 0-5 % EO% 0.4 LAB L100.2500 Normal 0-1 % BASO% 0.2 LAB L100.2550 Normal 0.0-0.9 % IM 0.200 GRAN % Result Comment: IG% - Immature Granulocytes (promyelocytes, myelocytes andmetamyelocytes) > 1% indicates that a LEFT SHIFT is Present. LAB L100.2620 Normal 2.0-7.7 X10 3/uL Absolute Neut 3.5 LAB L100.2720 Low 0.83-4.51 X10 3/ul Absolute Lymph 0.71 Performed By: #### L100.0100 ####[facility] [address] [place], [place], [address] COMPREHENSIVE METABOLIC Collected: 04/04/2018 Status: F Source: [place] 9:31 AM [facility] REPOSITORY TYPE CODE TESTS RESULT OUT OF RANGE REFERENCE UNITS LAB L501.0100 Normal 74-106 mg/dL GLU 98 Result Comment: Please note revised GLUCOSE reference range gehrktcas44/02/2018. LAB L501.1000 Normal 7-18 mg/dL BUN 14 LAB L501.1100 Normal 0.55-1.02 mg/dL CREAT,SERUM 1.02 Result Comment: The validity of the calculated GFR AND GFRAA in patients over70 years has not been determined. Clinical correlation isessential. LAB L501.1110 Low >60 mL/min EST GFR 56 Result Comment: Non- GFR Calc LAB L501.1115 Normal >60 mL/min EST GFR - 68 AA Result Comment: GFR Calc LAB L501.1300 Normal 10-20 RATIO BUN/CRE 13.7 LAB L501.1500 Normal 6.4-8.2 g/dL T PROT 7.1 LAB L501.1800 Normal 3.2-5.0 g/dL ALB 3.6 LAB L501.1950 Normal 2.2-4.2 g/dL GLOB 3.5 LAB L501.2000 Normal 0.9-2.4 RATIO A/G 1.0 LAB L501.2200 Normal 8.5-10.1 mg/dL CA 9.1 LAB L501.4100 Normal 15-37 U/L AST 30 LAB L501.4305 Normal 45-117 U/L ALK P 91 LAB L501.4405 Normal 13-56 U/L ALT 32 LAB L501.4600 Normal 0.20-1.00 mg/dL T BILI 0.30 LAB L501.5300 Normal 136-145 mmol/L NA 144 LAB L501.5600 Normal 3.5-5.1 mmol/L K 4.0 LAB L501.5900 Normal 98-107 mmol/L CL 107 LAB L501.6100 Normal 21.0-32.0 mmol/L CO2 27.0 LAB L501.6200 Normal 5-15 GAP 10 Performed By: #### L500.4050 ####[facility] [address] [place], [place], [id number] CBC W/DIFF, AUTOMATED Collected: 02/19/2018 Status: F Source: [place] 8:29 AM [facility] REPOSITORY TYPE CODE TESTS RESULT OUT OF RANGE REFERENCE UNITS LAB L100.1000 Normal 4.4-11.0 K/mm3 WBC 5.8 LAB L100.1200 Low 4.2-5.4 M/mm3 RBC 4.17 LAB L100.1300 Normal 12.0-15.0 g/dl HGB 13.0 LAB L100.1400 Normal 37-47 % HCT 40.5 LAB L100.1500 Normal 81-99 fL MCV 97.1 LAB L100.1600 Normal 27.0-32.0 pg MCH 31.2 LAB L100.1700 Normal 32-36 g/gl MCHC 32.1 LAB L100.1810 Normal 11.6-14.6 % RDW 13.8 CV LAB L100.1820 High 35.1-43.9 fl RDW 47.7 SD LAB L100.1900 Normal 150-450 K/mm3 PLT 358 LAB L100.2000 Normal 6.2-12.0 fl MPV 9.8 LAB L100.2100 High 47-70 % NEUT% 77.1 LAB L100.2200 Low 19-41 % LY% 14.5 LAB L100.2300 Normal 0-10 % MONO% 7.6 LAB L100.2400 Normal 0-5 % EO% 0.2 LAB L100.2500 Normal 0-1 % BASO% 0.3 LAB L100.2550 Normal 0.0-0.9 % IM 0.300 GRAN % Result Comment: IG% - Immature Granulocytes (promyelocytes, myelocytes andmetamyelocytes) > 1% indicates that a LEFT SHIFT is Present. LAB L100.2620 Normal 2.0-7.7 X10 3/uL Absolute Neut 4.5 LAB L100.2720 Normal 0.83-4.51 X10 3/ul Absolute Lymph 0.84 Performed By: #### L100.0100 ####[facility] [address] [place], [address] COMPREHENSIVE METABOLIC Collected: 02/19/2018 Status: F [facility] REPOSITORY TYPE CODE TESTS RESULT OUT OF RANGE REFERENCE UNITS LAB L501.0100 Normal 74-106 mg/dL GLU 90 Result Comment: Please note revised GLUCOSE reference range hykfjcnni92/02/2018. LAB L501.1000 Normal 7-18 mg/dL BUN 9 LAB L501.1100 Normal 0.55-1.02 mg/dL CREAT,SERUM 0.93 Result Comment: The validity of the calculated GFR AND GFRAA in patients over70 years has not been determined. Clinical correlation isessential. LAB L501.1110 Normal >60 mL/min EST GFR 63 Result Comment: Non- GFR Calc LAB L501.1115 Normal >60 mL/min EST GFR - 76 AA Result Comment: GFR Calc LAB L501.1300 Low 10-20 RATIO BUN/CRE 9.7 LAB L501.1500 Normal 6.4-8.2 g/dL T PROT 7.4 LAB L501.1800 Normal 3.2-5.0 g/dL ALB 3.8 LAB L501.1950 Normal 2.2-4.2 g/dL GLOB 3.6 LAB L501.2000 Normal 0.9-2.4 RATIO A/G 1.1 LAB L501.2200 Normal 8.5-10.1 mg/dL CA 9.7 LAB L501.4100 Normal 15-37 U/L AST 25 LAB L501.4305 Normal 45-117 U/L ALK P 101 LAB L501.4405 Normal 13-56 U/L ALT 34 LAB L501.4600 Normal 0.20-1.00 mg/dL T BILI 0.60 LAB L501.5300 Normal 136-145 mmol/L NA 139 LAB L501.5600 Normal 3.5-5.1 mmol/L K 3.9 LAB L501.5900 Normal 98-107 mmol/L CL 104 LAB L501.6100 Normal 21.0-32.0 mmol/L CO2 30.0 LAB L501.6200 Normal 5-15 GAP 5 Performed By: #### L500.4050 ####[facility] [address] [place], [address] DIAG MAMM W/CAD, Observed: 02/01/2018 Status: F Source: [place] BILAT 1:41 PM [facility] REPOSITORY [facility]ITALIm[facility] Gvsizaqg[address] [place] [address]PMIL MAMM W/CAD, BILATMR#: [id number] Acct: [id number]: JENS BROWN Rep #: [id number]: F 72 From: Zbigniew Perez MDPCP: Camryn Faith DO Status: REG CLIStudy: DIAG MAMM W/CAD, BILAT Date of Exam: 02/01/18Exam# [id number] Ordering Dr: Lawanda Patel RN PERITONEAL DIALYSIS-CMAMMOGRAPHY - BILATERAL DIAGNOSTICREASON FOR EXAM: Female , 72 years old. Right breast lump.PERTINENT HISTORY: Daughter with breast cancer. Prior left excisionalbreast biopsy.TECHNIQUE: Digital bilateral breast stephanie (3D mammographic acquisition) inthe CC and MLO projections. 2-D mediolateral oblique (MLO) and craniocaudad(CC) views of both breasts were obtained. CAD: Full Field DigitalMammography with Computer Added Detection was performed.COMPARISON: Comparison is made with prior study dated April 16, 2017 andFebruary 15, 2016. FINDINGS:Breast Composition: There are scattered areas of fibroglandular density.There are no dominant masses or suspicious calcifications. Stable 4 mmwell-defined nodule in the upper slightly lateral portion of the leftbreast.No other significant abnormalities are identified. There has been nosignificant change since the prior study. BI/DIAG MAMM W/CAD, BILATIMPRESSION:Stable bilateral diagnostic mammogram. With the patient's history of apalpable abnormality in the inferior retroareolar region of the rightbreast, correlation with ultrasound is recommended. ASSESSMENT CATEGORY:BIRADS Category 0: Incomplete. Need additional imaging evaluation. Aletter regarding these results will be sent to the patient by the facilitywithin 30 days.Approximately 10% of breast cancers are not detected by mammography. Anormal mammogram should not delay biopsy of a clinically suspiciousabnormality.Electronically Signed:Zbigniew Perez MD at 15:36 EDTTel [phone], Service support , DY: CHIQUIS Patel; Camryn Faith DO Trailer Body Assembler: Signed BREAST LIMITED Observed: 02/01/2018 Status: F Source: [place] UNILATERAL 1:41 PM [facility] REPOSITORY [facility]ITALIm[facility] [address] [address]Lamtwt Limited UnilateralMR#: [id number] Acct: [id number]: JENS BROWN Rep #: [id number]: F 72 From: Zbigniew Perez MDPCP: Camryn Faith DO Status: REG CLIStudy: Breast Limited Unilateral Date of Exam: 02/01/18Exam# [id number] Ordering Dr: Lawanda Patel RN PERITONEAL DIALYSIS-CSTUDY: ULTRASOUND BREAST - RIGHTREASON FOR EXAM: Female , 72 years old. Palpable lump in the rightbreast.TECHNIQUE: Axial and longitudinal images of the RIGHT breast wereperformed with a high resolution ultrasound transducer.COMPARISON: Comparison is made with prior mammogram done earlier today. FINDINGS:RIGHT Breast:The inferior aspect of the right breast was examined by ultrasound. Nosolid or cystic mass lesion is seen. ORDER #: [id number] US/Breast Limited UnilateralIMPRESSION:Unremarkable sonographic examination. ASSESSMENT CATEGORY:BIRADS Category 1: Negative. A letter regarding these results will besent to the patient by the facility within 30 days.Electronically Signed:Zbigniew Perez MD at 15:46 Han [phone], Service support , GG: CHIQUIS Patel; Camryn Faith DO Trailer Body Assembler:Signed DEBURRER STRIP OFFICE VISIT Observed: 01/29/2018 Status: F Source: [place] REPORT 8:58 AM [facility] [place] [address] [place] [address] [id number] VISITDate of Service: 01/29/18MR#: [id number] Acct: [id number]: JENS BROWN Rep #: [id number]: 1945 Provider: CHIQUIS Hernandezge/Sex: 72/F [facility]: SignedIntakeVital Signs01/29/18 Height 5 ft 1 in01/29/18 Weight: 147 lb 6 oz01/29/18 Body Mass Index (BMI) 27.805 Blood Pressure 131/74IntakeVisit Reasons: WELLNESS CHECKChief Complaint: est annualInterpreter Required: NoIs patient in pain?: YesAllergieserythromycin base Allergy (Verified 01/29/18 08:04)Rashibuprofen [From Motrin] Allergy (Verified 01/29/18 08:04)Rashdicyclomine HCl [From Bentyl] Adverse Reaction (Verified 08:04)Nauseanitrofurantoin Adverse Reaction (Verified 01/29/18 08:04) NauseaSulfa (Sulfonamide Antibiotics) Adverse Reaction (Verified 01/29/18 08:04)NauseaMedicationstraMADol [Ultram] 100 mg PO BID 09/30/13 [History Confirmed 01/29/18]Bergamot [Rosebud Bergamot] 02/12/17 [History Confirmed 01/29/18]Cyanocobalamin (Vitamin B-12) [B-12] 2,000 mcg PO DAILY 02/12/17 [ History Confirmed 01/29/18]Duloxetine HCl 60 mg PO DAILY 02/12/17 [History Confirmed 01/29/18]Folic Acid 2 mg PO DAILY 02/12/17 [History Confirmed 01/29/18] busPIRone [Buspar] 15 mg PO BID 02/12/17 [History Confirmed 01/29/18]Esomeprazole Magnesium [Nexium 24Hr] 22.3 mg PO BID 03/14/17 [History Confirmed 01/29/18]aspirin 81 mg chewable tablet 81 mg PO QDAY 01/29/18 [History Confirmed 01/29/18] cholecalciferol (vit D3) 1,000 unit-vitamin K2 (MK4) 100 mcg tablet 1 tab PO QDAY 01/29/18[ History Confirmed 01/29/18]estradiol 0.01% (0.1 mg/gram) vaginal cream See Label Instructions VAGINAL .COMPLEX #42.5 g001/29/18 [Rx Confirmed 01/29/18]ferrous sulfate 324 mg (65 mg iron) tablet,delayed release 324 mg PO QDAY tab 01/29/18[History Confirmed 01/29/18]metformin ER 500 mg tablet,extended release 24 hr 500 mg PO QDAY 01/29 [History Ciokahbjz65/29/18]Is last menstrual period known: NoPost menopausal: YesPatient : NoBreastfeeding: NoPFSHMedical History Anxiety (Acute)Arthritis (Acute)Diverticula of colon (Acute)Family HistoryMother CVA (cerebral vascular accident)Social HistorySmoking Status: Never smokeralcohol intake: neversubstance use type: does not usecaffeine: Yeswhat type of physical activity do you participate in: noneseatbelt use: alwaysdo you feel safe at home: Yesadditional social history: Octavia- Both are retiredPregancy HistoryGravida 2 Elective abortionsHx Para 2 Spontaneous abortionsPast PregnanciesDel. DatName GA/WeeksOutcome Route [facility] WeigInflagstaff medical centert GLaoverlake hospital [facility] LgAnestheCHI St. [facility] LocaProviderFOBe ht en ia tnUnknown 1965 BrendaUnknown 1968 RichardHPIWELLNESS CHECK:Details : JENS BROWN is a 72 year old who presents for annual exam. Right breast tenderness X4 daysHistory of abnormal PAP: noLast mammogram: 04/2017History of abnormal mammogram: noColon cancer screeninFemale Reproductive HistoryQuestions: Metorrhagia: No, Sexually active: Yes, Dyspareunia: Yes, PCB: NoMenopausal Treatment: No HRT, Yes Vaginal Estrogen (premarin cream)ROSConstConstitutional: Denies fatigue, weight gain or weight lossCardioCard: Denies chest painRespResp: Denies cough or shortness of breath with activityGIGI: Denies abdominal pain, constipation, change in stools, vomiting or bloatingGUGU: Reports as per HPI;denies urinary frequency, pelvic pain, urinary urgency, vaginal discharge, vaginal itching,urinary incontinence or difficulty urinatingExamConstGeneral: cooperative, healthy appearing, no acute distress, well developedOrientation: alert, oriented to person, oriented to placeHENMTHead: normal to inspectionNeckNeck: normal visual inspectionThyroid: thyroid normalLymphatic: no lymphadenopathy notedChestBreast inspection: normal inspection of the breasts, normal inspection of the axillaeBreast palpation: normal palpation of the breasts (left), normal palpation of the axillae(bilateral), no axillary lymphadenopathy (bilateral), abnormal palpation of the breast right: mass mobile and cysticOther: 7:00 position, 3cm from areolaRespEffort AND Inspection: normal respiratory effortAuscultation: clear to auscultation bilaterallyCardioRate: regular rateRhythm: regular rhythmGIPalpation: soft, nontender, no massesRectal Exam: mass, deferredGUExternal Female Exam: normal external appearance, normal appearance of the urethraUrethra: normal appearance of the urethra, normal palpationSpeculum Exam - Vagina: normal appearance of the vagina, normal vaginal discharge, atrophicvaginal mucosa (mild)Speculum Exam - Cervix: normal appearance of the cervixBimanual Exam- Vagina AND Uterus: normal bimanual exam, uterine size normal, uterine shapenormal, uterus non-tenderBimanual Exam- Adnexa, other: normal adnexae, no adnexal masses, adnexae non-tender, pelvicsupport normalPelvic Support: normalNeuroGeneral: alert, oriented x2OzmimHcnhvl: normal affectAssessment AND PlanProblems1. Encounter for gynecological examination with abnormal finding Z01.4112. Mass of right breast N63.103. Mastodynia of right breast N64.44. Atrophic vaginitis N95.2PlanCompleted breast and pelvic examReviewed diet and exercisePap NAMammogram bilateral diagnostic with right ultrasoundColonoscopy up to dateBone density do not see in hospital records, [facility] Will checkCCF records also.RTO 1 year, prn with Britton Patel CNPOrdersOrders:MedicationsNew:CodingLevel of Care [facility] Pelvic/BreastDiagnosesEncounter for gynecological examination with abnormal finding Z01.411Gynecological examination findings: abnormal findings PRESENTMass of right breast N63.10Mastodynia of right breast N64.4Atrophic vaginitis N95. 0858 <Electronically signed by Lawanda Patel NP-C>Date Lawanda Patel RN PERITONEAL DIALYSIS-CCosigner Signature: Date (if applicable)CC: CBC W/DIFF, AUTOMATED Collected: 01/23/2018 Status: F Source: [place] 10:52 AM [facility] REPOSITORY TYPE CODE TESTS RESULT OUT OF RANGE REFERENCE UNITS LAB L100.1000 Normal 4.4-11.0 K/mm3 WBC 4.7 LAB L100.1200 Normal 4.2-5.4 M/mm3 RBC 4.20 LAB L100.1300 Normal 12.0-15.0 g/dl HGB 12.8 LAB L100.1400 Normal 37-47 % HCT 40.8 LAB L100.1500 Normal 81-99 fL MCV 97.1 LAB L100.1600 Normal 27.0-32.0 pg MCH 30.5 LAB L100.1700 Low 32-36 g/gl MCHC 31.4 LAB L100.1810 High 11.6-14.6 % RDW 15.3 CV LAB L100.1820 High 35.1-43.9 fl RDW 53.4 SD LAB L100.1900 Normal 150-450 K/mm3 PLT 344 LAB L100.2000 Normal 6.2-12.0 fl MPV 9.4 LAB L100.2100 High 47-70 % NEUT% 70.4 LAB L100.2200 Normal 19-41 % LY% 19.4 LAB L100.2300 Normal 0-10 % MONO% 8.5 LAB L100.2400 Normal 0-5 % EO% 1.3 LAB L100.2500 Normal 0-1 % BASO% 0.2 LAB L100.2550 Normal 0.0-0.9 % IM 0.200 GRAN % Result Comment: IG% - Immature Granulocytes (promyelocytes, myelocytes andmetamyelocytes) > 1% indicates that a LEFT SHIFT is Present. LAB L100.2620 Normal 2.0-7.7 X10 3/uL Absolute Neut 3.3 LAB L100.2720 Normal 0.83-4.51 X10 3/ul Absolute Lymph 0.91 Performed By: #### L100.0100 ####[facility] [address] [place], [place], [address] COMPREHENSIVE METABOLIC Collected: 01/23/2018 Status: F Source: [facility] 10:52 AM [facility] REPOSITORY TYPE CODE TESTS RESULT OUT OF RANGE REFERENCE UNITS LAB L501.0100 Normal 74-106 mg/dL GLU 105 Result Comment: Fasting Glucose result from 100 to 125 mg/dLsuggests IMPAIRED HOMEOSTASIS per A.D.A. criteria.Please note revised GLUCOSE reference range zicqvnvgy94/02/2018. LAB L501.1000 Normal 7-18 mg/dL BUN 11 LAB L501.1100 Normal 0.55-1.02 mg/dL CREAT,SERUM 0.97 Result Comment: The validity of the calculated GFR AND GFRAA in patients over70 years has not been determined. Clinical correlation isessential. LAB L501.1110 Normal >60 mL/min EST GFR 60 Result Comment: Non- GFR Calc LAB L501.1115 Normal >60 mL/min EST GFR - 72 AA Result Comment: GFR Calc LAB L501.1300 Normal 10-20 RATIO BUN/CRE 11.3 LAB L501.1500 Normal 6.4-8.2 g/dL T PROT 7.6 LAB L501.1800 Normal 3.2-5.0 g/dL ALB 3.9 LAB L501.1950 Normal 2.2-4.2 g/dL GLOB 3.7 LAB L501.2000 Normal 0.9-2.4 RATIO A/G 1.1 LAB L501.2200 Normal 8.5-10.1 mg/dL CA 9.7 LAB L501.4100 High 15-37 U/L AST 54 LAB L501.4305 Normal 45-117 U/L ALK P 100 LAB L501.4405 High 13-56 U/L ALT 66 LAB L501.4600 Normal 0.20-1.00 mg/dL T BILI 0.40 LAB L501.5300 Normal 136-145 mmol/L NA 140 LAB L501.5600 Normal 3.5-5.1 mmol/L K 4.0 LAB L501.5900 Normal 98-107 mmol/L CL 105 LAB L501.6100 Normal 21.0-32.0 mmol/L CO2 29.0 LAB L501.6200 Normal 5-15 GAP 6 Performed By: #### L500.4050 ####[facility] [address] [facility] [place], [address] CAROTID DUPLEX Observed: 12/26/2017 Status: F Source: [place] ULTRASOUND 8:25 AM [facility] REPOSITORY [facility]ITALCard[facility] [address] [place], [place] [address]Aihnfbn Duplex Hzzpspvdxj60/24/18 1043#: [id number] Acct: [id number]: JENS BROWN Rep #: [id number]: 1945 72 From: Ej Ortiz MDAchelsy Dr: Camryn Faith DO Status: REG CLIOrdering Dr: Camryn Faith DO Date: 12/25/17Location: [facility] Sex: F CAdmitted:Reason For Study: Carotid stenosisRt. Velocities/BP Lt. Velocities/BPProx CCA 87.9/18.2 cm/sec. Prox CCA 134.0/24.4 cm/sec.Mid CCA 92.6/19.3 cm/sec. Mid CCA 119.0/26.7 cm/ sec.Dist CCA 92.0/18.2 cm/sec. Dist CCA 86.4/23.6 cm/sec.Prox ICA 81.5/17.6 cm/sec. Prox ICA 54.3/13.8 cm/sec.Mid ICA 105.0/32.2 cm/sec. Mid ICA 87.4/27.0 cm/sec.Dist ICA 80.7/19.2 cm/sec. Dist ICA 96.7/29.3 cm/ sec.Rt. ICA/CCA = 1.1. Lt. ICA/CCA = .81.Prox ECA 151.0/22.8 cm/sec. Prox ECA 113.0/17.6 cm/sec.Rt. Vert. 59.8/17.0 cm/sec. Lt. Vert. 80.3/18.8 cm/sec.Right ExtracranialThere is intimal thickening but no significant atherosclerotic plaque noted in the right commoncarotid artery. There is intimal thickening but no significant atherosclerotic plaque noted intheright internal carotid artery. There is intimal thickening but no significant atheroscleroticplaque noted in the right external carotid artery. Antegrade flow is noted in the rightvertebralartery.Left ExtracranialThere is intimal thickening but no significant atherosclerotic plaque noted in the left commoncarotid artery. There is intimal thickening but no significant atherosclerotic plaque noted intheleft internal carotid artery. There is heterogeneous, irregular atherosclerotic plaque noted intheleft external carotid artery. Antegrade flow is noted in the left vertebral artery.ProcedureCarotid Duplex [id number]. Exam performed in department.Interpretation SummaryMild (<50%) stenosis right extracranial internal carotid. Mild (<50%) stenosis leftextracranialinternal carotid. Flow within the vertebral arteries is antegrade bilaterally. Ordering Physician: Camryn FaithReferring Physician: Camryn FaithPerformed By: Adelita Ramirez, RVT 12/26/17 0824Date _ Ej Ortiz [facility]: Camryn Faith DO Date Dictated: 12/25/17 1043Date Transcribed: 12/26/17 0824Transcriptionist:Signed COMPREHENSIVE METABOLIC Collected: 10/15/2017 Status: F Source: [place] PROFIL 8:15 AM [facility] REPOSITORY TYPE CODE TESTS RESULT OUT OF RANGE REFERENCE UNITS LAB L501.0100 Normal 74-106 mg/dL GLU 92 Result Comment: Please note revised GLUCOSE reference range cbqufzyfi37/02/2018. LAB L501.1000 Normal 7-18 mg/dL BUN 8 LAB L501.1100 Normal 0.55-1.02 mg/dL CREAT,SERUM 0.98 Result Comment: The validity of the calculated GFR AND GFRAA in patients over70 years has not been determined. Clinical correlation isessential. LAB L501.1110 Low >60 mL/min EST GFR 59 Result Comment: Non- GFR Calc LAB L501.1115 Normal >60 mL/min EST GFR - 71 AA Result Comment: GFR Calc LAB L501.1300 Low 10-20 RATIO BUN/CRE 8.2 LAB L501.1500 Normal 6.4-8.2 g/dL T PROT 7.2 LAB L501.1800 Normal 3.2-5.0 g/dL ALB 3.7 LAB L501.1950 Normal 2.2-4.2 g/dL GLOB 3.5 LAB L501.2000 Normal 0.9-2.4 RATIO A/G 1.1 LAB L501.2200 Normal 8.5-10.1 mg/dL CA 9.2 LAB L501.4100 Normal 15-37 U/L AST 28 LAB L501.4305 Normal 45-117 U/L ALK P 74 LAB L501.4405 Normal 13-56 U/L ALT 38 Result Comment: Please note revised ALT reference range gvhyxxoft16/28/2018. LAB L501.4600 Normal 0.20-1.00 mg/dL T BILI 0.40 LAB L501.5300 Normal 136-145 mmol/L NA 142 LAB L501.5600 Normal 3.5-5.1 mmol/L K 3.8 LAB L501.5900 Normal 98-107 mmol/L CL 106 LAB L501.6100 Normal 21.0-32.0 mmol/L CO2 29.0 LAB L501.6200 Normal 5-15 GAP 7 Performed By: #### L500.4050 ####[facility] [address] [place], [address] CBC W/DIFF, AUTOMATED Collected: 10/15/2017 Status: F Source: [place] 8:15 AM [facility] REPOSITORY TYPE CODE TESTS RESULT OUT OF RANGE REFERENCE UNITS LAB L100.1000 Low 4.4-11.0 K/mm3 WBC 3.5 LAB L100.1200 Low 4.2-5.4 M/mm3 RBC 3.97 LAB L100.1300 Normal 12.0-15.0 g/dl HGB 12.1 LAB L100.1400 Normal 37-47 % HCT 37.4 LAB L100.1500 Normal 81-99 fL MCV 94.2 LAB L100.1600 Normal 27.0-32.0 pg MCH 30.5 LAB L100.1700 Normal 32-36 g/gl MCHC 32.4 LAB L100.1810 High 11.6-14.6 % RDW 15.3 CV LAB L100.1820 High 35.1-43.9 fl RDW 50.6 SD LAB L100.1900 Normal 150-450 K/mm3 PLT 356 LAB L100.2000 Normal 6.2-12.0 fl MPV 9.8 LAB L100.2100 High 47-70 % NEUT% 70.8 LAB L100.2200 Normal 19-41 % LY% 20.2 LAB L100.2300 Normal 0-10 % MONO% 8.4 LAB L100.2400 Normal 0-5 % EO% 0.0 LAB L100.2500 Normal 0-1 % BASO% 0.3 LAB L100.2550 Normal 0.0-0.9 % IM 0.300 GRAN % Result Comment: IG% - Immature Granulocytes (promyelocytes, myelocytes andmetamyelocytes) > 1% indicates that a LEFT SHIFT is Present. LAB L100.2620 Normal 2.0-7.7 X10 3/uL Absolute Neut 2.5 LAB L100.2720 Low 0.83-4.51 X10 3/ul Absolute Lymph 0.70 Performed By: #### L100.0100 ####[facility] [address] [place], [place], [address] URGENT CARE VISIT Observed: 09/26/2017 Status: F Source: [place] REPORT 12:16 PM [facility] REPOSITORY Now [address] [id number] VISITDate of Service: 08/28/17MR#: [id number] Acct: [id number]: JENS BROWN Rep #: [id number]: 1945 Provider: Carmine Bergeron/Sex: 72/F Location: [facility] [place].NOWStatus: SignedIntakeVital Signs08/28/17 Height 5 ft 1 in08/28/17 Weight: 146 lb08/28/17 Body Mass Index (BMI) 27.6IntakeVisit Reasons: Sinus infectionInterpreter Required: NoIs patient in pain?: NoAllergieserythromycin base Allergy (Verified 08/28/17 09:42)Rashibuprofen [From Motrin] Allergy (Verified 08/28/17 09:42)Rashdicyclomine HCl [From Bentyl] Adverse Reaction (Verified 09:42)Nauseanitrofurantoin Adverse Reaction (Verified 08/28/17 09:42) NauseaSulfa (Sulfonamide Antibiotics) Adverse Reaction (Verified 08/28/17 09:42)NauseaMedicationsTraMADol [Ultram] 100 mg PO BID 09/30/13 [History Confirmed 03/20/17]Bergamot [Rosebud Bergamot] 02/12/17 [History]BusPIRone [Buspar] 15 mg PO BID 02/12/17 [History Confirmed 03/14/17]Cyanocobalamin (Vitamin B-12) [B-12] 2 ,000 mcg PO DAILY 02/12/17 [History Confirmed 03/14/17]Duloxetine HCl 60 mg PO DAILY 02/12/17 [History Confirmed 03/14/17]Folic Acid 2 mg PO DAILY 02/12/17 [History Confirmed 03/14/17]Hydroxychloroquine [Plaquenil] 200 mg PO DAILY 02/12/17 [ History Confirmed 03/14/17]Methotrexate 12.5 mg PO Q7D 02/12/17 [History Confirmed 03/14/17]Esomeprazole Magnesium [Nexium 24Hr] 22.3 mg PO BID 03/14/17 [History Confirmed 03/19/17]cephalexin 500 mg capsule 500 mg PO Q12H 10 Days #20 cap [Rx Confirmed 08/28/17]PFSHMedical History Hyperlipidemia (Chronic)Acute diverticulitis (Acute)Social HistorySmoking Status: Never smokerHPISinusitis:Details: JENS BROWN, is a 72 F who presents to the office today for complaint of sinuscongestion pressure and pain for the past 10 day. She is a pressure pain is causedintermittent headaches which is made better with ibuprofen. She also complains of slightlysore throat with postnasal drainage. No fever, chills, sweats. No chest pain or shortness ofbreath. No other associated symptoms or alleviating/aggravating factors.ROSConstConstitutional: Positive for headache(s);no fever(s), chills, night sweats or abnormal sleep patternENTENT: Positive for headache(s), nasal congestion, sinus pressure, sinus pain and nasaldischarge;no ear painRespRespiratory: No cough or shortness of breathCardioCardiology: No shortness of breath, irregular heart rhythm or fast heart rateNeuroNeurology: Positive for headache(s);no confusionPsychPsychiatric: No abnormal sleep pattern, No confusionExamConstGeneral: cooperativeHENMTHead: normal to inspectionEars: hearing grossly normal bilaterallyNose: nasal discharge purulentFace and sinus: sinus tenderness frontal and maxillaryMouth: oral mucosae normalThroat: abnormal tonsil bilaterally, postnasal drainageRespEffort AND Inspection: normal respiratory effortAuscultation: Bilateral: Clear to AuscultationCardioRate: regular rateRhythm: regular rhythmNeuroGeneral: alert, CN's II-XI intact bilaterallyPsychAppearance: grossly normalMental Status: mental status grossly normalAssessment AND Plan1. Acute non-recurrent maxillary sinusitis J01.00; J01.00StatusAcutePlanEncouraged to get plenty of rest, drink lots of clear liquids, and use Tylenol or Ibuprofen(unless contraindicated) for fever and comfort. Patient also educated on other symptomaticmanagement techniques. To be seen in 7-10 days if no improvement; sooner if worsening ofsymptoms. Patient advised of potential red flags when appropriate report to the ED. Patientverbalized understanding all the above.Plan DetailOther MedicationsNew:CodingLevel of Care CodeOff vis,new,level 3DiagnosesAcute non-recurrent maxillary sinusitis J01.00; J01.00Chronicity: acuteRecurrence: non-recurrentSinusitis location: pajuxresh90/08/18 1614 <Electronically signed by Carmine ELDER>Date Carmine Reddy PACosigner Signature: Date (if applicable)CC: CBC W/DIFF, AUTOMATED Collected: 07/16/2017 Status: F Source: [place] 7:53 AM [facility] REPOSITORY TYPE CODE TESTS RESULT OUT OF RANGE REFERENCE UNITS LAB L100.1000 Low 4.4-11.0 K/mm3 WBC 3.8 LAB L100.1200 Low 4.2-5.4 M/mm3 RBC 3.93 LAB L100.1300 Low 12.0-15.0 g/dl HGB 11.0 LAB L100.1400 Low 37-47 % HCT 36.0 LAB L100.1500 Normal 81-99 fL MCV 91.6 LAB L100.1600 Normal 27.0-32.0 pg MCH 28.0 LAB L100.1700 Low 32-36 g/gl MCHC 30.6 LAB L100.1810 High 11.6-14.6 % RDW 16.9 CV LAB L100.1820 High 35.1-43.9 fl RDW 55.4 SD LAB L100.1900 Normal 150-450 K/mm3 PLT 423 LAB L100.2000 Normal 6.2-12.0 fl MPV 9.4 LAB L100.2100 High 47-70 % NEUT% 70.4 LAB L100.2200 Normal 19-41 % LY% 20.4 LAB L100.2300 Normal 0-10 % MONO% 8.6 LAB L100.2400 Normal 0-5 % EO% 0.0 LAB L100.2500 Normal 0-1 % BASO% 0.3 LAB L100.2550 Normal 0.0-0.9 % IM 0.300 GRAN % Result Comment: IG% - Immature Granulocytes (promyelocytes, myelocytes andmetamyelocytes) > 1% indicates that a LEFT SHIFT is Present. LAB L100.2620 Normal 2.0-7.7 X10 3/uL Absolute Neut 2.7 LAB L100.2720 Low 0.83-4.51 X10 3/ul Absolute Lymph 0.78 Performed By: #### L100.0100 ####[facility] [address] [place], [address] COMPREHENSIVE METABOLIC Collected: 07/16/2017 Status: F Source: [facility] 7:53 AM [facility] REPOSITORY TYPE CODE TESTS RESULT OUT OF RANGE REFERENCE UNITS LAB L501.0100 Normal 70-110 mg/dL GLU 90 LAB L501.1000 Normal 7-18 mg/dL BUN 10 LAB L501.1100 Normal 0.55-1.02 mg/dL 0.96 CREAT,SERUM Result Comment: The validity of the calculated GFR AND GFRAA in patients over70 years has not been determined. Clinical correlation isessential. LAB L501.1110 Normal >60 mL/min EST GFR 60 Result Comment: Non- GFR Calc LAB L501.1115 Normal >60 mL/min EST GFR - 73 AA Result Comment: GFR Calc LAB L501.1300 Normal 10-20 RATIO BUN/CRE 10.4 LAB L501.1500 Normal 6.4-8.2 g/dL T PROT 7.4 LAB L501.1800 Normal 3.4-5.0 g/dL ALB 3.8 Result Comment: Please note revised Albumin AND Globulin reference rangeeffective 2017. LAB L501.1950 Normal 2.2-4.2 g/dL GLOB 3.6 LAB L501.2000 Normal 0.9-2.4 RATIO A/G 1.1 LAB L501.2200 Normal 8.5-10.1 mg/dL CA 9.2 LAB L501.4100 High 15-37 U/L AST 43 LAB L501.4305 Normal 45-117 U/L ALK P 79 LAB L501.4405 Normal 12-78 U/L ALT 54 LAB L501.4600 Normal 0.20-1.00 mg/dL T BILI 0.50 LAB L501.5300 Normal 136-145 mmol/L NA 140 LAB L501.5600 Normal 3.5-5.1 mmol/L K 3.7 LAB L501.5900 Normal 98-107 mmol/L CL 105 LAB L501.6100 Normal 21.0-32.0 mmol/L CO2 27.0 LAB L501.6200 Normal 5-15 GAP 8 Performed By: #### L500.4050 ####[facility] [address] [place], [address] ALLERGIES ALLERGIES DATE TYPE / CODE NAME / CODE REACTION SEVERITY SOURCE 04/25/2018 Drug dicyclomine Nausea Unknown Sheri Allergy/416 HCl/[id number](RXNO Community 010245([facility] ED CT) Repository 04/25/2018 Drug Sulfa (Sulfonamide Nausea Unknown Jackson Allergy/416 Antibiotics)/Z99371 Community 822297([facility] 0491([facility] ED [facility]) Repository 04/25/2018 Drug ibuprofen/[id number] Rash Unknown Jackson Allergy/416 7(RXNORM) [facility] 915475([facility] ED CT) Repository 04/25/2018 Drug erythromycin Rash Unknown Jackson Allergy/416 base/[id number](RXN Community 693533([facility] [place] [place] ED CT) Repository 04/25/2018 Drug nitrofurantoin/F006 Nausea Unknown Jackson Allergy/416 137375(RXNORM) Community 923091([facility] ED CT) Repository 02/12/2017 Drug dicyclomine Nausea Jackson Allergy/416 HCl/U601426434(RXNO Community 210923([facility] ED CT) Repository 02/12/2017 Drug Sulfa (Sulfonamide Nausea Sheri Allergy/416 Antibiotics)/C56703 Community 682375([facility] 0491([facility] ED CT) Repository 02/12/2017 Drug ibuprofen/F59961767 Rash Sheri Allergy/416 7(RXNORM) Community 344728([facility] ED CT) Repository 02/12/2017 Drug erythromycin Rash Sheri Allergy/416 base/E818494363(RXN Community 020247([facility] [place] [place] ED CT) Repository 02/12/2017 Drug nitrofurantoin/F006 Nausea Sheri Allergy/416 817173(RXNORM) [facility] 343123([facility] ED CT) Repository ENCOUNTERS ENCOUNTERS ADMIT/DISCHARGE ACCOUNT ADMITTING ENCOUNTER LOCATION SOURCE NUMBER CLASS 05/01/2018 [id number] Ambulatory Jackson Jackson 2 [facility] Hospital ing:CT Repository 04/30/2018 [id number] Ambulatory Sheri Jackson 9 [facility] Hospital ing:RAD Repository 04/25/2018/ [id number] Ambulatory BMSBuilding:B Sheri 8 7 [facility] Repository 04/16/2018 [id number] Ambulatory Sheri Jackson 0 [facility] Hospital ing:CVS Repository 04/04/2018 [id number] Ambulatory Sheri Jackson 6 [facility] Hospital ing:MTLAB Repository 02/19/2018 [id number] Ambulatory Jackson Sheri 9 [facility] Hospital ing:MTLAB Repository 02/01/2018 [id number] Ambulatory Jackson Jackson 2 [facility] Hospital ing:OPUS Repository 01/29/2018/ [id number] Ambulatory BMSBuilding:B Jackson 8 4 [facility] Repository 01/23/2018 [id number] Ambulatory Jackson Sheri 6 [facility] Hospital ing:MTLAB Repository 12/25/2017 [id number] Ambulatory Jackson Sheri 2 [facility] ing:CVS Repository 10/15/2017 [id number] Ambulatory Sheri Jackson 5 [facility] ing:MTLAB Repository 08/28/2017/ [id number] [facility]MS[facility] 07/16/2017 [id number] Ambulatory Jackson Sheri 1 [facility] ing:MTLAB Repository PAYERS PAYERS ENCOUNTER GUARANTOR PAYER SUBSCRIBER SOURCE 05/01/2018 JENS [id number] Insurance:HUMANA MOOREDOB: [place] PPOPolicy [id number] [address]Tel: (330) Number: Repository [phone] () [id number] Date:8387-45-10CN [address] [place] [address]FX: 05/01/2018 Secondary NOT GIVENUNK Jackson Insurance:SELF PAY [facility] Number: Effective Repository Date:2018-04-22 04/30/2018 JENS [id number] Insurance:HUMANA MOOREDOB: Community [place] PPOPolicy [id number] [address]Tel: [phone]) Number: Repository [phone] () [id number] Date:[id number] [address]IE: 04/30/2018 Secondary NOT GIVENUNK Sheri Insurance:SELF PAY [facility] Number: Effective Repository Date:2018-04-25 04/25/2018 JENS [id number] Insurance:HUMANA AYAANDOB: Community [place] PPOPolicy [id number] [place] [address]Tel: [phone]) Number: Repository [phone] () [id number] Date:9499-61-25FB [place] [address]WP: 04/25/2018 Secondary NOT GIVENUNK Jackson Insurance:SELF PAY [facility] Number: Effective Repository Date:2018-04-25 04/16/2018 JENS Beckman [id number] Primary [address] Insurance:HUMANA MOOREDOB: Community [place] PPOPolicy [id number] Hospital [address]Pot: [phone]) Number: Repository [phone] () [id number] Date:8129-74-51PN [address] [address]GW: 04/16/2018 Secondary NOT GIVENUNK Sheri Insurance:SELF PAY [facility] Number: Effective Repository Date:2018-04-10 04/04/2018 JENS K [id number] Primary JENS [address] Insurance:HUMANA MOOREDOB: Community [place] PPOPolicy [id number] Hospital [address]Nnu: (330) Number: Repository [phone] () [id number] Date:3675-35-14SR [address] [address]PC: 04/04/2018 Secondary NOT GIVENUNK Jackson Insurance:SELF PAY [facility] Number: Effective Repository Date:2018-04-04 02/19/2018 JENS K [id number] Primary [address] Insurance:HUMANA MOOREDOB: Community [place] PPOPolicy [id number] Hospital [address]Iwe: (330) Number: Repository [phone] () [id number] Date:4657-47-85GZ [address] [address]RG: 02/19/2018 Secondary NOT GIVENUNK Sheri Insurance:SELF PAY [facility] Number: Effective Repository Date:2018-02-19 02/01/2018 JENS [id number] [address] Insurance:HUMANA MOOREDOB: [facility] [place] [facility] [id number] [facility] [address]Ypg: (330) Number: Repository [phone] () [id number] Date:7717-75-87UN [address] [address]AK: 02/01/2018 Secondary NOT GIVENUNK Jackson Insurance:SELF PAY [facility] Number: Effective Repository Date:2018-01-29 01/29/2018 JENS K [id number] Primary JENS Rk Jackson [address] Insurance:HUMANA MOOREDOB: [address] [facility]ARE [facility] [id number] Hospital [address]Exd: [phone]) Number: Repository [phone] () [id number] Date:8142-24-22RK [address] [address]LH: 01/29/2018 Secondary NOT GIVENUNK Jackson Insurance:SELF PAY [facility] Number: Effective Repository Date:2018-01-29 01/23/2018 JENS K [id number] Primary JENS Rk Jackson [address] Insurance:HUMANA AYAANDOB: Community [place] PPOPolicy [id number] Hospital [address]Dve: (330) Number: Repository [phone] () [id number] Date:9181-45-51ZG [address] [address]DO: 01/23/2018 Secondary NOT GIVENUNK Jackson Insurance:SELF PAY [facility] Number: Effective Repository Date:2018-01-23 12/25/2017 JENS [id number] Primary JENS K Sheri [address] Insurance:HUMANA AYAANDOB: [address] MEDICARE [facility] [id number] Hospital [address]Shx: [phone]) Number: Repository [phone] () [id number] Date:2329-20-27OU [address] [address]HJ: 12/25/2017 Secondary NOT GIVENUNK Jackson Insurance:SELF PAY [facility] Number: Effective Repository Date:2017-12-06 10/15/2017 Octavia Brown [id number] [address] Insurance:HUMANA AYAANDOB: Community [address] [place] [address] MEDICARE [facility] [id number] Hospital [address]Jgh: Number: Repository [phone] [id number] (HP) Date:7053-39-78NT [address] [address]RG: 10/15/2017 Secondary NOT GIVENUNK Jackson Insurance:SELF PAY [facility] Number: Effective Repository Date:2017-10-15 08/28/2017 Octavia Brown [id number] [address] Insurance:HUMANA AYAANDOB: [address] MEDICARE [facility] [id number] [id number]: Number: Repository [phone] [id number] (HP) Date:6939-65-77JI [address] [address]CU: 08/28/2017 Secondary NOT GIVENUNK Jackson Insurance:SELF PAY [facility] Number: Effective Repository Date:2017-08-28 07/16/2017 OCTAVIA BROWN [id number] Primary [address] Insurance:HUMANA AYAANDOB: [address] MEDICARE [facility] [id number] Hospital [address]Rgj: (330) Number: Repository [phone] (HP) [id number] Date:3250-94-35DI [address] [address]IZ:
== END ==
PROVIDERS: Family Provider Internal Medicine; PCP Internal Medicine; Visit Provider Internal Medicine
DX: N13.2 Hydronephrosis with renal and ureteral calculous obstruction (principal)
CPT/HCPCS: 74176

== ENCOUNTER 2018-05-21 05:15 | Day surgery (SDC) | payer MEDICARE, SELFPAY ==
[2018-05-21] VITALS (12 sets, daily range): BP systolic 119–189; BP diastolic 63–89; PULSE 77–88; RESP 16–18; TEMP 36.2–36.8; O2SAT 95–100
--- NOTE | 2018-05-21 | IMM_PTH ---
PATIENT: JENS KUO LOC: EN U#:[id number] AGE/SX: 73/F ROOM: RE05/21/[address]: Dr. Rylan Bird MD : 1945 BED: DIS: 05/21/2018 SPEC #: [id number] RECD: 05/22/18 14:30 STATUS: NICOLE RERaymundo #: [id number] NANI: 05/21/18 00:[address]: Rylan Bird DEPT: IMMUNOHISTOCHEMISTRY RECD BY: Stacey Matthews ENTERED: 05/22/18 14:31 SP TYPE: IMMUNO OTHR DR: Dr. Camryn Faith DO Tissues: A - Stomach, NOS Procedures: H Pylori (initial) PHYSICIAN & INSTITUTION [place] [address] SPECIMEN INFORMATION: Tissue Source: A ? Antral biopsy Clinical Info: GERD, esophagitis, screening Specimen Number: [id number] CPT code: 34699 METHODOLOGY: Deparaffinized sections of prefer/formalin-fixed tissue or PAP/DQ stained slides are incubated with monoclonal/polyclonal antibodies/oligonucleotide probes. Localization is made via biotin free immunoperoxidase method. Appropriate controls are performed and reacted as expected. Results on target cell population are indicated in the following table: RESULTS: ANTIBODY / CLONE RESULT Block A H Pylori (polyclonal) negative These tests were developed and their performance characteristics determined by [facility]. They may not have been cleared or approved by the U.S. Food and Drug Administration. The FDA has determined that such clearance or approval is not necessary. INTERPRETATION: A. Antral biopsy: Negative for Helicobacter pylori organisms. AM:aga 05/24/18
--- NOTE | 2018-05-21 06:30 | EGD_PTH ---
PATIENT: JENS KUO LOC: EN U#:[id number] AGE/SX: 73/F ROOM: RE05/21/[address]: Dr. Rylan Bird MD : 1945 BED: DIS: 05/21/2018 SPEC #: [id number] RECD: 05/21/18 09:43 STATUS: NICOLE DONY #: [id number] NANI: 05/21/18 06:[address]: Rylan Bird DEPT: SURGICAL PATHOLOGY RECD BY: Shan Davidson ENTERED: 05/21/18 11:21 SP TYPE: EGD BIOPSY ASHLEIGH DR: Dr. Camryn Faith, DO Tissues: A - Gastric mucous membrane B - Esophageal mucous membrane C - Esophageal mucous membrane Procedures: Surgery Specimen Level IV HEADER OPERATION: Colonoscopy, EGD (MOD) with PH probe PRE-OP DIAGNOSIS: GERD, esophagitis, screening for intestinal cancer, shortness of breath TISSUE SUBMITTED: A ? Antral biopsy, B ? Distal esophageal biopsy, C ? Mid esophageal biopsy MICROSCOPIC DIAGNOSIS A. Gastric antrum, biopsy: Mild chronic gastritis. B. Distal esophagus, biopsy: Fragments of benign squamous mucosa. No evidence of inflammation. C. Mid esophagus, biopsy: Fragments of benign squamous mucosa. No evidence of inflammation. AM:aga 05/22/18 COMMENT The results of immunohistochemistry for Helicobacter pylori will be reported separately ([id number]). MICROSCOPIC DESCRIPTION Slides are reviewed. GROSS DESCRIPTION A - Received in fixative is one container labeled with the patient's name and designated gastric antrum. The specimen consists of one irregular fragment of light burciaga soft tissue that measures 0.5 x 0.2 x 0.1 cm. The specimen is totally submitted in one cassette. B - Received in fixative is one container labeled with the patient's name and designated biopsy distal esophagus. The specimen consists of multiple irregular fragments of light burciaga soft tissue that in aggregate measure 1 x 0.3 x 0.1 cm. The specimen is totally submitted in one cassette. C - Received in fixative is one container labeled with the patient's name and designated mid esophageal biopsy. The specimen consists of one irregular fragment of light burciaga soft tissue that measures 0.4 x 0.2 x 0.1 cm. The specimen is totally submitted in one cassette. / TERENCE:aga 05/21/18 TC:3 CPT: 95373 x3
--- NOTE | 2018-05-21 10:45 | OP.ENDO_ITS ---
Patient Name: Brandie Brown Procedure Date: 05/21/2018 6:22 AM Date of : 1945 Age: 73 Procedure: Upper GI endoscopy Indications: Gastro-esophageal reflux disease Providers: Rylan Bird Referring MD: Camryn Tobin Medicines: Midazolam 4 mg IV, Meperidine 100 mg IV Complications: No immediate complications. Procedure: Pre-Anesthesia Assessment: - Prior to the procedure, a History and Physical was performed, and patient medications and allergies were reviewed. The patient's tolerance of previous anesthesia was also reviewed. The risks and benefits of the procedure and the sedation options and risks were discussed with the patient. All questions were answered, and informed consent was obtained. Prior Anticoagulants: The patient has taken no previous anticoagulant or antiplatelet agents. ASA Grade Assessment: II - A patient with mild systemic disease. After reviewing the risks and benefits, the patient was deemed in satisfactory condition to undergo the procedure. After obtaining informed consent, the endoscope was passed under direct vision. Throughout the procedure, the patient's blood pressure, pulse, and oxygen saturations were monitored continuously. The gastroscope was introduced through the mouth, and advanced to the second part of duodenum. The upper GI endoscopy was accomplished without difficulty. The patient tolerated the procedure well. Scope In: 6:36:00 AM Scope Out: 6:44:58 AM Total Procedure Duration Time 0 hours 8 minutes 58 seconds Findings: LA Grade A (one or more mucosal breaks less than 5 mm, not extending between tops of 2 mucosal folds) esophagitis with no bleeding was found 36 to 37 cm from the incisors. Biopsies were taken with a cold forceps for histology. A small hiatal hernia was present. Diffuse mild inflammation characterized by erythema and bile staining was found in the gastric antrum. Biopsies were taken with a cold forceps for histology. The examined duodenum was normal. The ELLIS capsule with delivery system was introduced through the mouth and advanced into the esophagus, such that the ELLIS pH capsule was positioned 30 cm from the incisors, which was 6 cm proximal to the GE junction. The ELLIS pH capsule was then deployed and attached to the esophageal mucosa. The delivery system was then withdrawn. Endoscopy was utilized for probe placement and diagnostic evaluation. Impression: - LA Grade A reflux esophagitis. Biopsied. - Small hiatal hernia. - Chronic gastritis. Biopsied. - Normal examined duodenum. - The ELLIS pH capsule was deployed. Recommendation: - Discharge patient to home. - Resume previous diet. - Continue present medications. - Return to my office in 1 week. Procedure Code(s): --- Professional --- 71720, Esophagogastroduodenoscopy, flexible, transoral; with biopsy, single or multiple Diagnosis Code(s): --- Professional --- K21.0, Gastro-esophageal reflux disease with esophagitis K44.9, Diaphragmatic hernia without obstruction or gangrene K29.50, Unspecified chronic gastritis without bleeding CPT copyright 2017 [employer]. All rights reserved. The codes documented in this report are preliminary and upon coder operator review may be revised to meet current compliance requirements. MD Rylan Taylor MD 05/21/2018 7:16:52 AM This report has been signed electronically. Number of Addenda: 0 Note Initiated On: 05/21/2018 6:22 AM
--- NOTE | 2018-05-21 10:45 | OP.ENDO_ITS ---
Patient Name: Brandie Brown Procedure Date: 05/21/2018 6:47 AM Date of : 1945 Age: 73 Procedure: Colonoscopy Indications: Screening for colorectal malignant neoplasm Providers: Rylan Bird Referring MD: Rylan Bird Medicines: See the other procedure note for documentation of the administered medications Complications: No immediate complications. Procedure: Pre-Anesthesia Assessment: - Prior to the procedure, a History and Physical was performed, and patient medications and allergies were reviewed. The patient's tolerance of previous anesthesia was also reviewed. The risks and benefits of the procedure and the sedation options and risks were discussed with the patient. All questions were answered, and informed consent was obtained. Prior Anticoagulants: The patient has taken no previous anticoagulant or antiplatelet agents. ASA Grade Assessment: II - A patient with mild systemic disease. After reviewing the risks and benefits, the patient was deemed in satisfactory condition to undergo the procedure. After I obtained informed consent, the scope was passed under direct vision. Throughout the procedure, the patient's blood pressure, pulse, and oxygen saturations were monitored continuously. The colonoscope was introduced through the anus and advanced to the cecum, identified by appendiceal orifice and ileocecal valve. The colonoscopy was performed without difficulty. The patient tolerated the procedure well. The quality of the bowel preparation was excellent. Scope In: 6:48:39 AM Scope Withdrawal Time 0 hours 6 minutes 25 seconds Scope Out: 7:04:54 AM Total Procedure Duration Time 0 hours 16 minutes 15 seconds Findings: Hemorrhoids were found on perianal exam. There was evidence of a prior end-to-side colo-colonic anastomosis in the distal sigmoid colon. This was patent and was characterized by moderate stenosis. The anastomosis was traversed after dilation. A TTS dilator was passed through the scope. Dilation with a 13.5 mm colonic balloon dilator was performed. The dilation site was examined following endoscope reinsertion and showed moderate improvement in luminal narrowing. Estimated blood loss was minimal. Scattered small-mouthed diverticula were found in the distal sigmoid colon. At anastomosis an end to side was found with photo taken of the blind end pouch, healthy in appearance. Impression: - Hemorrhoids found on perianal exam. - Patent end-to-side colo-colonic anastomosis, characterized by moderate stenosis. Dilated. - Diverticulosis in the distal sigmoid colon. - At anastomosis an end to side was found with photo taken of the blind end pouch, healthy in appearance. - No specimens collected. Recommendation: - Discharge patient to home. - Resume previous diet. - Continue present medications. - Return to my office in 1 week. Procedure Code(s): --- Professional --- 12876, Colonoscopy, flexible; with transendoscopic balloon dilation Diagnosis Code(s): --- Professional --- Z12.11, Encounter for screening for malignant neoplasm of colon K64.9, Unspecified hemorrhoids Z98.0, Intestinal bypass and anastomosis status K57.30, Diverticulosis of large intestine without perforation or abscess without bleeding CPT copyright 2017 [employer]. All rights reserved. The codes documented in this report are preliminary and upon electrician locomotive review may be revised to meet current compliance requirements. MD Rylan Taylor MD 05/21/2018 7:25:41 AM This report has been signed electronically. Number of Addenda: 1 Note Initiated On: 05/21/2018 6:47 AM Addendum Number: 1 Addendum Date: 05/21/2018 7:30:35 AM Repeat colonoscopy for screening in 10 years. MD Rylan Taylor MD 05/21/2018 7:30:59 AM This report has been signed electronically.
== END 2018-05-21 07:48 | disposition home or self-care (01) ==
LOC: EN 05:18 → AC 05:19
PROVIDERS: Family Provider Internal Medicine; PCP Internal Medicine; Visit Provider Surgery
PROC: 0DJD8ZZ Inspection of Lower Intestinal Tract, Via Natural or Artificial Opening Endoscopic (ICD-10-PCS; CPT 45378; principal; 2018-05-21 06:00)
DX: Z12.11 Encounter for screening for malignant neoplasm of colon (principal); Z12.12 Encounter for screening for malignant neoplasm of rectum; K91.89 Other postprocedural complications and disorders of digestive system; K57.30 Diverticulosis of large intestine without perforation or abscess without bleeding; K64.9 Unspecified hemorrhoids; K29.50 Unspecified chronic gastritis without bleeding; K44.9 Diaphragmatic hernia without obstruction or gangrene; Z98.0 Intestinal bypass and anastomosis status; K21.9 Gastro-esophageal reflux disease without esophagitis; M06.9 Rheumatoid arthritis, unspecified; F41.9 Anxiety disorder, unspecified; Z79.84 Long term (current) use of oral hypoglycemic drugs; Z79.82 Long term (current) use of aspirin; Z79.899 Other long term (current) drug therapy; Z90.49 Acquired absence of other specified parts of digestive tract
CPT/HCPCS: 43239; 45386; 91035; 88305; 88342; 99152; 99153; J7120

== ENCOUNTER → 2018-05-23 09:43 | Outpatient (CLI) | payer MEDICARE, SELFPAY ==
--- NOTE | 2018-05-23 09:49 | BD_ITS ---
STUDY: DUAL ENERGY X-RAY ABSORPTIOMETRY / DXA REASON FOR EXAM: Female, 73 years old. The patient is postmenopausal. Loss of height. TECHNIQUE: Bone Mineral Density (BMD) measurements of lumbar spine and bilateral hips were obtained. COMPARISON: Comparison is made with prior study dated February 15, 2016. FINDINGS: Lumbar Spine (L1-L4): g/cm2 (1.027) / T-score (-1.3) / Z-score (0.5) Findings are suggestive of osteopenia with a moderate fracture risk. Left Femur Total: g/cm2 (0.997) / T-score (-0.1) / Z-score (1.6) Left Femoral Neck: g/cm2 (0.893) / T-score (-1.0) / Z-score (0.9) Right Femur Total: g/cm2 (0.917) / T-score (-0.7) / Z-score (1.0) Right Femoral Neck: g/cm2 (0.819) / T-score (-1.6) / Z-score (0.3) The T-Scores on the most recent prior examination were: Lumbar Spine (L1-L4): There has been improvement of bone density since the previous examination. Left Femur Total: which represents an improvement of 3.6%. Right Femur Total: which represents an improvement of 2.7%. BD/Dexa Bone Density Study IMPRESSION: The patient is considered osteopenic as outlined below according to World Matt Organization (WHO) criteria with a moderate fracture risk. There has been improvement of bone density since the previous examination. Reference Information: The T-score is the number of standard deviations above or below the standard which is normal for young adults at their peak bone mineral density. The World Health Organization (WHO) interprets the T-scores as follows: Above -1 Normal bone density Between -1 and -2.5 Osteopenia Equal to / or below -2.5 Osteoporosis As a practical clinical guideline, osteopenia may be graded as follows: Mild -1 through -1.5 Moderate -1.6 through -2.0 Severe -2.1 through -2.4 The Z-score is the number of standard deviations above or below age-matched controls. A Z-score of less than -1.5 would be considered abnormal. References: 1. NIH Osteoporosis and Related Bone Diseases http://www.osteo.org 2. International Society for Clinical Densitometry http://www.iscd.org 3. National Osteoporosis Foundation http://www.nof.org Electronically Signed: Zbigniew Perez MD at 8:17 EDT Tel [phone], Service support ,
== END ==
PROVIDERS: Family Provider Internal Medicine; PCP Internal Medicine; Visit Provider Internal Medicine
DX: Z78.0 Asymptomatic menopausal state (principal); M85.80 Other specified disorders of bone density and structure, unspecified site
CPT/HCPCS: 77080

== ENCOUNTER → 2018-05-31 09:27 | Outpatient (CLI) | payer MEDICARE, SELFPAY ==
--- NOTE | 2018-05-31 09:30 | NM_ITS ---
CLINICAL: 73-year-old female with reported history of abdominal pain. SEMI-SOLID PHASE 99m Tc SULFUR COLLOID GASTRIC EMPTYING STUDY COMPARISON: CT of the abdomen-pelvis report 05/08/2018 FINDINGS: The patient was administered 1.1 mCi of 99m Tc sulfur colloid mixed with oatmeal and consumed per os. Image acquisitions in the anterior-posterior projections were obtained for 60 minutes. There is prompt visualization of the stomach. There is no gastroesophageal reflux identified. First order kinetics are maintained throughout the duration of the acquisitions. The T1/2 linear fit was calculated to be 63.43 minutes, (Normal: 12-56 minutes). NM/Gastric Emptying Study IMPRESSION: 1. MILDLY ABNORMAL 99m Tc sulfur colloid semi-solid phase (oatmeal) gastric emptying imaging examination. A. There is mild delayed semi-solid phase gastric emptying compared to normal controls with defined first order kinetics throughout all components of the examination. (Alannah et al, J Nucl Med Tech 38: 186, 2010). Electronically Signed: Carson Thacker DO at 8:03 EDT Tel , Service support ,
== END ==
PROVIDERS: Family Provider Internal Medicine; PCP Internal Medicine; Referring Provider Physician Assistant; Visit Provider Physician Assistant
DX: K21.9 Gastro-esophageal reflux disease without esophagitis (principal)
CPT/HCPCS: 78264; A9541

== ENCOUNTER → 2018-06-10 15:21 | Outpatient (CLI) | payer MEDICARE, SELFPAY ==
[2018-06-10 17:36] LABS: Absolute Lymphocyte Count 0.97 X10^3/ul (0.83-4.51); Absolute Neutrophil Count 3.8 X10^3/uL (2.0-7.7); Basophil# 0.02 X10^3/uL; Basophil% 0.4 % (0-1); Eosinophil# 0.01 X10^3/uL; Eosinophils% 0.2 % (0-5); Hematocrit 36.1 % (37-47); Hemoglobin 11.5 g/dl (12.0-15.0); Lymphocyte # 0.97 X10^3/ul (4.0); Lymphocyte % 18.5 % (19-41); Mean Corp Hgb Conc 31.9 g/gl (32-36); Mean Corpuscular Hgb 30.6 pg (27.0-32.0); Mean Platelet Vol. 8.9 fl (6.2-12.0); Monocyte# 0.44 X10^3/uL; Monocyte% 8.4 % (0-10); Neutrophil # 3.79 X10^3/uL (2.7-7.7); Neutrophil % 72.5 % (47-70); Platelet Count 416 K/mm3 (150-450); RBC Distribution Width CV 15.2 % (11.6-14.6); RBC Distribution Width SD 52.1 fl (35.1-43.9); Red Blood Count 3.76 M/mm3 (4.2-5.4); White Blood Count 5.2 K/mm3 (4.4-11.0)
[2018-06-10 17:38] LABS: POSITIVE COUNT NO; POSITIVE DIFFERENTIAL NO; POSITIVE MORPHOLOGY NO
[2018-06-10 17:49] LABS: AST(SGOT) 35 U/L (15-37); Alanine Aminotransfer ALT/SGPT 60 U/L (13-56); Albumin, Serum 3.8 g/dL (3.2-5.0); Alkaline Phosphatase 104 U/L (45-117); Anion Gap 9 (5-15); BUN 11 mg/dL (7-18); BUN/Creat Ratio 11.5 RATIO (10-20); Calcium,Total 9.7 mg/dL (8.5-10.1); Chloride 104 mmol/L (98-107); Creatinine, Serum 0.96 mg/dL (0.55-1.02); EST Glomerular Filtration Rate 61 mL/min (>60); Est Glom Filt Rate - Afr Amer 73 mL/min (>60); Globulin 3.8 g/dL (2.2-4.2); Glucose 94 mg/dL (74-106); Potassium 3.9 mmol/L (3.5-5.1); Protein, Total 7.6 g/dL (6.4-8.2); Sodium Level 141 mmol/L (136-145)
== END ==
PROVIDERS: Family Provider Internal Medicine; PCP Internal Medicine; Referring Provider Internal Medicine Rheumatology; Visit Provider Internal Medicine Rheumatology
DX: M06.4 Inflammatory polyarthropathy (principal); Z79.899 Other long term (current) drug therapy; M79.7 Fibromyalgia; M15.9 Polyosteoarthritis, unspecified; M17.0 Bilateral primary osteoarthritis of knee; M19.071 Primary osteoarthritis, right ankle and foot; K76.0 Fatty (change of) liver, not elsewhere classified; K21.9 Gastro-esophageal reflux disease without esophagitis; M47.896 Other spondylosis, lumbar region; H33.001 Unspecified retinal detachment with retinal break, right eye; E78.5 Hyperlipidemia, unspecified; F41.9 Anxiety disorder, unspecified
CPT/HCPCS: 36415; 80053; 85025

== ENCOUNTER 2018-06-13 08:38 | Day surgery (SDC) | payer MEDICARE, SELFPAY ==
[2018-06-13 08:56] VITALS: BP 140/76; PULSE 98; RESP 16; O2SAT 98
== END 2018-06-13 09:24 | disposition home or self-care (01) ==
LOC: EN 08:39
PROVIDERS: Family Provider Internal Medicine; PCP Internal Medicine; Referring Provider Surgery; Visit Provider Surgery
PROC: F00ZJWZ Instrumental Swallowing and Oral Function Assessment using Swallowing Equipment (ICD-10-PCS; CPT 43235; principal; 2018-06-13 08:55)
DX: K21.9 Gastro-esophageal reflux disease without esophagitis (principal)
CPT/HCPCS: 91010

== ENCOUNTER → 2018-08-13 09:17 | Outpatient (CLI) | payer MEDICARE, SELFPAY ==
[2018-06-24 07:51] VITALS: BMI 27.6
[2018-08-13 10:50] LABS: Absolute Lymphocyte Count 0.68 X10^3/ul (0.83-4.51); Absolute Neutrophil Count 3.6 X10^3/uL (2.0-7.7); Basophil# 0.02 X10^3/uL; Basophil% 0.4 % (0-1); Eosinophil# 0.06 X10^3/uL; Eosinophils% 1.2 % (0-5); Hematocrit 39.3 % (37-47); Hemoglobin 12.4 g/dl (12.0-15.0); Lymphocyte # 0.68 X10^3/ul (4.0); Lymphocyte % 13.8 % (19-41); Mean Corp Hgb Conc 31.6 g/gl (32-36); Mean Corpuscular Volume 98.3 fL (81-99); Mean Platelet Vol. 9.2 fl (6.2-12.0); Monocyte# 0.54 X10^3/uL; Neutrophil % 73.4 % (47-70); POSITIVE COUNT NO; POSITIVE DIFFERENTIAL NO; POSITIVE MORPHOLOGY NO; Platelet Count 355 K/mm3 (150-450); RBC Distribution Width CV 14.8 % (11.6-14.6); RBC Distribution Width SD 53.1 fl (35.1-43.9); White Blood Count 4.9 K/mm3 (4.4-11.0)
[2018-08-13 11:10] LABS: AST(SGOT) 28 U/L (15-37); Alanine Aminotransfer ALT/SGPT 29 U/L (13-56); Albumin, Serum 3.9 g/dL (3.2-5.0); Alkaline Phosphatase 108 U/L (45-117); Anion Gap 5 (5-15); BUN 12 mg/dL (7-18); BUN/Creat Ratio 12.5 RATIO (10-20); Calcium,Total 9.6 mg/dL (8.5-10.1); Chloride 105 mmol/L (98-107); Creatinine, Serum 0.96 mg/dL (0.55-1.02); EST Glomerular Filtration Rate 60 mL/min (>60); Est Glom Filt Rate - Afr Amer 73 mL/min (>60); Globulin 3.8 g/dL (2.2-4.2); Glucose 96 mg/dL (74-106); Protein, Total 7.7 g/dL (6.4-8.2); Sodium Level 140 mmol/L (136-145)
--- OUTSIDE RECORDS SUMMARY | 2018-09-29 08:14 | XMS RPT_ITS | Continuity of Care Document ---
:1945 Author Organization [facility] Address [address] [place] [address] Phone Care Team Providers Name Role Phone Camryn Faith DO Unavailable Artemio Huang MD Unavailable Christina MONROE, Dr. Avani Benitez Unavailable Rylan Bird MD Unavailable DERRICK George Unavailable Unavailable Polina Worthington Unavailable Unavailable Long Ale MEZA Unavailable Unavailable Unavailable Unavailable Problems Name Dates Details Abdominal pain (R10.9, 789.00) Comments: PUDr pelon Cid, endopscopy Haital hernia.Onprilisec 20 mg Qdpain worse after eating, central, 5/10, most of the timect scan 10/19 diverticulosis Status: Active Abdominal pain, acute, generalized (R10.84, 789.07) Status: Active Abdominal pain, acute, left lower quadrant (Renamed from Acute abdominal pain in left lower quadrant) (R10.32, 789.04) Status: Active Abnormal blood finding (R79.9, 790.99) Status: Active Abnormal glucose tolerance test (Renamed from Abnormal glucose tolerance test (GTT)) (R73.02, 790.22) Status: Active Abnormal urine (R82.90, 791.9) Status: Active Anemia, unspecified (D64.9, 285.9) Comments: cologard 2017 normal Status: Active Annual Medicare Phyiscal WITHOUT abnormal findings (Renamed from Encounter for general adult medical examination without abnormal findings) (Z00.00, V70.9) Status: Active Arteriosclerosis of carotid artery, bilateral (I65.23, 433.10) Comments: 02/02/16: <50% narrowing, yeraly Status: Active arthritis left first digit Status: Active Arthritis, rheumatic, acute or subacute (I00, 390) Status: Active Asymptomatic bilateral carotid artery stenosis (I65.23, 433.10) Comments: last doppler 12/2015- mild Status: Active Bilateral kidney stones (N20.0, 592.0) Status: Active BMI 26.0-26.9,adult (Z68.26, V85.22) Status: Active BMI 27.0-27.9,adult (Z68.27, V85.23) Status: Active BMI 28.0-28.9,adult (Z68.28, V85.24) Status: Active BMI 28.0-28.9,adult (Z68.28, V85.24) Status: Active Burning tongue (K14.6, 529.6) Comments: since 02/16, on right anterior side, Used probiotics and kefir did not helpHas swollen gland on the right submandibular area Status: Active Chronic pain of right knee (M25.561, 719.46) Status: Active 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 Sm. Adenoma Status: Active Constipation, chronic (K59.09, 564.00) Status: Active Deliveries (Parity) Comments: 2 Status: Active Diverticulitis (K57.92, 562.11) Status: Active Diverticulitis, colon (K57.32, 562.11) Status: Active Dyspnea on exertion (Renamed from Breathlessness on exertion) (R06.09, 786.09) Status: Active Elevated pancreatic enzyme (R74.8, 790.5) Status: Active Elevated serum globulin level (R77.1, 790.99) Status: Active Encounter for annual general medical examination with abnormal findings in adult (Z00.01, V70.0) Status: Active Encounter for immunization (Z23, V03.89) Status: Active Encounter for screening for malignant neoplasm of colon (Renamed from Special screening for malignant neoplasms, colon) (Z12.11, V76.51) Comments: beto 2017 normal Status: Active Encounter for screening mammogram for breast cancer (Renamed from Encounter for screening mammogram for malignant neoplasm of breast) (Z12.31, V76.12) Comments: 2018 Status: Active enlarged pancreas /adrenal lesion Status: Active Epigastric pain (R10.13, 789.06) Comments: pt will increase ppi bid until sees dr bird and see if helps Status: Active Eustachian tube dysfunction (H69.80, 381.81) Status: Active Fatty liver (K76.0, 571.8) Status: Active Gastroesophageal reflux disease without esophagitis (K21.9, 530.81) Comments: worsening Status: Active Hiatal hernia (K44.9, 553.3) Status: Active History of colon polyps (Z86.010, V12.72) Comments: cebul/jaobur q 5yr and last one 3yrs ago Status: Active History of constipation (Renamed from H/O constipation) (Z87.19, V12.79) Status: Active History of peptic ulcer (Z87.11, V12.71) Status: Active Hydronephrosis, right (N13.30, 591) Status: Active Hypercalcemia (E83.52, 275.42) -Jun-2012 Comments: chronic stable-continue present regimen Status: Active Hypercholesterolemia (E78.00, 272.0) Comments: long historyof not toelrating many statins - tried on many over the yrs Status: Active Hyperlipidemia, mixed (E78.2, 272.2) Status: Active Hysterectomy; Abdominal Status: Active Inflamed skin tag (L91.8, 701.9) Status: Active Intention tremor (G25.2, 333.1) Status: Active Iron deficiency anemia, unspecified iron deficiency anemia type (D50.9, 280.9) Status: Active Irritable bowel syndrome (K58.9, 564.1) Comments: goping to start probiotic and digestion support-- chg in diet Status: Active Leg cramp (R25.2, 729.82) Comments: improved off of crestor, getting lipid today and f/u with Dr. Haywood to determine if back on cholest med Status: Active Low back pain (M54.5, 724.2) Status: Active Medication side effect, initial encounter (T88.7XXA, 995.20) Status: Active Mitral valve insufficiency and aortic valve insufficiency (I08.0, 396.3) Status: Active Nausea alone (R11.0, 787.02) Status: Active Need for prophylactic vaccination and inoculation against influenza (Z23, V04.81) Status: Active Need for prophylactic vaccination and inoculation against influenza (Renamed from Need for immunization against influenza) (Z23, V04.81) Status: Active Non-smoker (Z78.9, V49.89) Status: Active Osteoarthritis of right knee, unspecified osteoarthritis type (M17.11, 715.96) Status: Active Osteopenia (M85.80, 733.90) Status: Active Other anxiety states (F41.1, 300.09) Status: Active Other dietary vitamin B12 deficiency anemia (D51.3, 281.1) Status: Active Other intervertebral disc degeneration, lumbar region (M51.36, 722.52) Status: Active Other seborrheic keratosis (L82.1, 702.19) Status: Active Postmenopausal (Z78.0, V49.81) Status: Active Pregnancies () Comments: 2 Status: Active Renal calculi (N20.0, 592.0) Comments: right per CT 2.4mm nonobstructing stone, to drink more water will follow Status: Active right thoracic pain Status: Active screening Status: Active Shortness of breath on exertion (R06.02, 786.05) Comments: stress test and echo normaloffered pulm consult since cv normal but declined and we decidied to work on kid stones /hydronephrosis and epigastric pain first Status: Active Sinusitis, chronic (J32.9, 473.9) Status: Active Skin lesion of hand (L98.9, 709.9) Status: Active Stress incontinence, female (N39.3, 625.6) Status: Active Vitamin D deficiency, unspecified (E55.9, 268.9) Status: Active Wart (B07.9, 078.10) Status: Active Weight gain (R63.5, 783.1) Status: Active Medications Name Dates Details BusPIRone HCl 15 MG Oral Tablet 1 (one) Tablet bid for 90 days Quantity: 180 {Tablet} Refills: 2 Ordered:04-Mar-2018 Domi Faith DO, DO, Kathleen Start : 04-Mar-2018 Active Cymbalta 60 MG Oral Capsule Delayed Release Particles 1 (one) Capsule DR Part qd for 0 days Quantity: 90 {Capsule} Refills: 3 Ordered:20-Feb-2018 Domi Faith DO, DO, Kathleen Start : 20-Feb-2018 Active Folic Acid 1 MG Oral Tablet 2 (two) Tablet qd for 0 days Quantity: 60 {Tablet} Refills: 3 Ordered:26-Apr-2016 Royal Perea MD Start : 26-Apr-2016 Active Gabapentin 300 MG Oral Capsule 1 qd (300 MG) Active Hydroxychloroquine Sulfate 200 MG Oral Tablet 2 tabs bid (200 MG) Start : 27-Nov-2016 Active Comments:Dr. Lehman Ibandronate Sodium 150 MG Oral Tablet 1 (one) Tablet Tablet qmonth for 0 days Quantity: 1 {Tablet} Refills: 4 Ordered:03-May-2017 Polina Worthington Start : 03-May-2017 Active Iron 18 MG Oral Tablet Extended Release 1 qd (18 MG) Active MetFORMIN HCl ER 500 MG Oral Tablet Extended Release 24 Hour 1 (one) Tablet Tablet qd for 0 days Quantity: 30 {Tablet} Refills: 3 Ordered:03-Aug-2017 Domi Faith DO, DO, Kathleen Start : 03-Aug-2017 Active NexIUM 40 MG Oral Capsule Delayed Release 1 (one) Capsule DR qd for 0 days Quantity: 90 {Capsule} Refills: 0 Ordered:18-Apr-2018 Domi Faith DO, DO, Kathleen Start : 18-Apr-2018 Active PREMARIN, 0.625MG/GM (Vaginal Cream) uad twice a week (0.625 MG/GM) Active Prochlorperazine Maleate 10 MG Oral Tablet 1 (one) Tablet Tablet 1 q 8hrs prn for 0 days Quantity: 20 {Tablet} Refills: 0 Ordered:14-Feb-2017 Daly George LPN Start : 14-Feb-2017 Active Promethazine HCl 12.5 MG Oral Tablet 1 (one) Tablet Tablet q 8hr prn nausea and vomiiting for 0 days Quantity: 10 {Tablet} Refills: 0 Ordered:21-Feb-2017 Daly George LPN Start : 21-Feb-2017 Active Comments:hold for sedation Vitamin D3 2000 UNIT Oral Capsule 2 (two) Capsule qd for 0 days Quantity: 90 {Capsule} Refills: 0 Ordered:26-Apr-2016 Royal Perea MD Start : 26-Apr-2016 Active ACYCLOVIR, 800MG (Oral Tablet) 1 (one) Tablet Tablet 5x daily for 7 days Quantity: 35 {Tablet} Refills: 0 Ordered:15-Apr-2014 Magdalena Leroy Start : 15-Apr-2014 End : 22-Apr-2014 Inactive MICHAEL ALLERGY, 180MG (Oral Tablet) 1 Tablet daily for 30 days Refills: 0 Ordered:20-Sep-2011 Shannon Campuzano RN Start : 19-Jun-2011 End : 19-Jul-2011 Inactive Amitriptyline HCl 10 MG Oral Tablet 1 Tablet qhs prn for 0 days Quantity: 30 {Tablet} Refills: 1 Ordered:27-Nov-2016 Daly George LPN Start : 26-Apr-2016 End : 27-Nov-2016 Inactive Comments:dont take with tramadol AMOXICILLIN, 875MG (Oral Tablet) 1 (one) Tablet Tablet bid for 10 days Quantity: 20 {Tablet} Refills: 0 Ordered:17-Jun-2015 Itzel Boucher LPN Start : 17-Jun-2015 End : 27-Jun-2015 Inactive Augmentin 875-125 MG Oral Tablet 1 (one) Tablet bid for 10 days Quantity: 20 {Tablet} Refills: 0 Ordered:12-Feb-2017 Daly George LPN Start : 12-Feb-2017 End : 22-Feb-2017 Inactive Comments:take with Probiotic Cipro 500 MG Oral Tablet 1 (one) Tablet bid for 5 days Quantity: 10 {Tablet} Refills: 0 Ordered:16-Feb-2017 Alicia Shaffer Start : 16-Feb-2017 End : 21-Feb-2017 Inactive CIPROFLOXACIN HCL, 500MG (Oral Tablet) 1 (one) Tablet bid for 10 days Quantity: 20 {Tablet} Refills: 0 Ordered:07-May-2015 Kylie Haywood DO Start : 07-May-2015 End : 17-May-2015 Inactive Citalopram Hydrobromide 40 MG Oral Tablet 1 Tablet QD for 90 days Quantity: 90 {Tablet} Refills: 0 Ordered:27-Nov-2016 Daly George LPN Start : 29-Nov-2015 End : 27-Nov-2016 Inactive Clotrimazole 10 MG Mouth/Throat Yaritza 1 (one) Yaritza 5 times aday for 10 days Quantity: 50 {Yaritza} Refills: 0 Ordered:26-Apr-2016 Royal Perea MD Start : 26-Apr-2016 End : 06-May-2016 Inactive COMPOUNDING CREAM (NEUROPATHIC: AMANTADINE 8%, GABAPENTIN 10%, IMIPRAMINE 3%, BUPIVACAINE 5%) (External Cream) (Free Text) 1 (one) Cream Cream bid for 0 days Quantity: 1 {Tube} Refills: 0 Ordered:26-Apr-[address] LPN Start : 15-Apr-2014 End : 26-Apr-2016 Inactive Flagyl 500 MG Oral Tablet 1 (one) Tablet Tablet q8hrs for 10 days Quantity: 30 {Tablet} Refills: 0 Ordered:12-Feb-2017 Daly George LPN Start : 12-Feb-2017 End : 22-Feb-2017 Inactive Levaquin 500 MG Oral Tablet 1 (one) Tablet Tablet qd for 0 days Quantity: 5 {Tablet} Refills: 0 Ordered:03-Aug-2017 Daly George LPN Start : 21-Feb-2017 End : 03-Aug-2017 Inactive LEXAPRO, 20MG (Oral Tablet) 2 Tablet QD for 0 days Quantity: 90 {Tablet} Refills: 3 Ordered:30-May-2007 Sigrid Rock Start : 30-May-2007 End : 31-May-2007 Inactive Lovastatin 20 MG Oral Tablet 1 (one) Tablet Tablet qd for 30 days Quantity: 30 {Tablet} Refills: 3 Ordered:27-Nov-2016 Daly George LPN Start : 26-Apr-2016 End : 27-Nov-2016 Inactive Methotrexate 2.5 MG Oral Tablet 5 Tablet weekly for 0 days Quantity: 20 {Tablet} Refills: 0 Ordered:19-Feb-2018 Daly Enriquez Start : 26-Apr-2016 End : 19-Feb-2018 Inactive Comments:[place] MultiVitamin 1 qd Inactive NASACORT AQ, 55MCG/ACT (Nasal Aerosol Solution) 2 (two) Aerosol Soln qd for 0 days Refills: 0 Ordered:01-Dec-2008 Magdalena Leroy Start : 01-Dec-2008 End : 27-Jul-2009 Inactive NITROFURANTOIN MONOHYD MACRO, 100MG (Oral Capsule) 1 Capsule q12 hr for 7 days Quantity: 14 {Capsule} Refills: 0 Ordered:25-Apr-2013 Yumiko Felton CNP Start : 25-Apr-2013 End : 02-May-2013 Inactive Omeprazole 40 MG Oral Capsule Delayed Release 1 (one) Capsule DR q am for 90 days Quantity: 90 {Capsule} Refills: 1 Ordered:27-Nov-2016 Daly George LPN Start : 26-Apr-2016 End : 27-Nov-2016 Inactive TraMADol HCl 50 MG Oral Tablet 1 tab Tablet tid, prn for 14 days Quantity: 42 {Tablet} Refills: 0 Ordered:27-Nov-2016 Domi Faith DO, DO, Kathleen Start : 27-Nov-2016 End : 11-Dec-2016 Inactive Comments:earlier refill was incorrect- didnt need it for mail away- is currently waiting on tabs in the mail-just needs 14 day supply till gets mail away- verbally called [facility] 12/14/15- earlier approved and signed OARS by rudolph TRAZODONE HCL, 50MG (Oral Tablet) 1 (one) Tablet Each evening as needed for 0 days Quantity: 30 {Tablet} Refills: 3 Ordered:18-Sep-2006 Magdalena Leroy Start : 18-Sep-2006 End : 25-Dec-2006 Inactive Comments:Medication taken as needed. VYTORIN, 10-20MG (Oral Tablet) 1 Tablet QD for 0 days Quantity: 30 {Tablet} Refills: 3 Ordered:03-Jul-2006 Magdalena Leroy Start : 03-Jul-2006 End : 18-Sep-2006 Inactive AMOXICILLIN, 500MG (Oral Capsule) 4 Capsule 1 hour prior to dental procedure for 0 days Quantity: 4 {Capsule} Refills: 0 Ordered:09-Apr-2007 Magdalena Leroy Start : 09-Apr-2007 End : 06-Nov-2007 Discontinued Comments:no longer needed. COQ10, 100MG (Oral Capsule) 1 cap qd (100 MG) End : 05-Oct-2014 Discontinued CRESTOR, 10MG (Oral Tablet) 1 (one) Tablet qd for 0 days Quantity: 90 {Tablet} Refills: 3 Ordered:27-Apr-2009 Kylie Haywood DO Start : 27-Apr-2009 End : 27-Apr-2009 Discontinued CRESTOR, 5MG (Oral Tablet) 1 Tablet qd for 0 days Quantity: 50 {Tablet} Refills: 0 Ordered:15-Feb-2016 SlaItzel henderson LPN Start : 08-Sep-2014 End : 15-Feb-2016 Discontinued FISH OIL BURP-LESS, 1200MG (Oral Capsule) 1 cap qd (1200 MG) End : 14-Oct-2013 Discontinued FOLIC ACID, 1MG (Oral Tablet) 1 tab qd (1 MG) End : 06-Feb-2012 Discontinued HYDROCORTISONE VALERATE, 0.2% (External Cream) 1 (one) Cream Cream apply twice a day for 0 days Quantity: 60 {Gram} Refills: 0 Ordered:08-Sep-2014 Saray Escalante LPN Start : 20-Apr-2014 End : 08-Sep-2014 Discontinued LINZESS, 290MCG (Oral Capsule) 1 cap prn (290 MCG) End : 15-Jun-2015 Discontinued LIVALO, 2MG (Oral Tablet) 1 Tablet qd for 0 days Quantity: 30 {Tablet} Refills: 3 Ordered:06-Feb-2012 Magdalena Leroy Start : 06-Feb-2012 End : 06-Feb-2012 Discontinued METHOTREXATE, 2.5MG (Oral Tablet) 4 tabs once weekly (2.5 MG) End : 14-Feb-2011 Discontinued Comments:Dr. Lehman NAPROXEN, 500MG (Oral Tablet) 1 to 2 tabs qd (500 MG) End : 07-Jun-2012 Discontinued Comments:Dr. Lehman NASONEX, 50MCG/ACT (Nasal Suspension) 2 (two) Suspension daily for 0 days Quantity: 3 {Suspension} Refills: 3 Ordered:08-Sep-2014 Saray Escalante LPN Start : 20-Sep-2011 End : 08-Sep-2014 Discontinued OMEGA 3, 1000MG (Oral Capsule) 1 cap tid for 0 days Refills: 0 Ordered:17-Sep-2007 Magdalena Leroy End : 17-Sep-2007 Discontinued PLAQUENIL, 200MG (Oral Tablet) 1 (one) Tablet qd for 0 days Quantity: 30 {Tablet} Refills: 3 Ordered:15-Apr-2014 Saray Escalante LPN Start : 06-Jan-2014 End : 15-Apr-2014 Discontinued PRAVACHOL, 80MG (Oral Tablet) 1 (one) Tablet qd for 0 days Quantity: 90 {Tablet} Refills: 3 Ordered:10-Oct-2011 Yobany YEE Kylie Farris Start : 10-Oct-2011 End : 10-Oct-2011 Discontinued WELCHOL, 625MG (Oral Tablet) 6 Tablet Daily for 0 days Quantity: 540 {Tablet} Refills: 3 Ordered:23-Oct-2008 Casie Nichols Start : 23-Oct-2008 End : 01-Dec-2008 Discontinued Comments:generic ZEGERID, 40-1100MG (Oral Capsule) 1 cap Capsule qd for 0 days Quantity: 90 {Capsule} Refills: 3 Ordered:10-Oct-2011 Yobany YEEKylie Start : 10-Oct-2011 End : 10-Oct-2011 Discontinued ZETIA, 10MG (Oral Tablet) 1 Tablet QD for 0 days Refills: 0 Ordered:18-Sep-2006 Magdalena Leroy Start : 18-Sep-2006 End : 01-Oct-2006 Discontinued ZOSTAVAX, 21528SPP/0.65ML (Subcutaneous Solution Reconstituted) 1 (one) For Solution For Solution one time dose for 0 days Quantity: 1 {Vial} Refills: 0 Ordered:22-Oct-2015 Magdalena Leroy Start : 25-Jun-2014 End : 22-Oct-2015 Discontinued Allergies and Adverse Reactions Name Dates Details Bentyl *ULCER DRUGS* (Allergy) Status: Active Erythromycins (Allergy) Status: Active Livalo *ANTIHYPERLIPIDEMICS* (Allergy) Status: Active Comments: fatigue Motrin *ANALGESICS - ANTI-INFLAMMATORY* (Allergy) Status: Active Pravachol *ANTIHYPERLIPIDEMICS* (Allergy) Status: Active Comments: myalgia Sulfa Drugs (Allergy) Status: Active Past Medical History Name Dates Details Acute sinusitis (J01.90, 461.9) 26-Dec-2010 Status: Resolved as of 20-Apr-2014 atypical skin lesion-- shave bx set up Status: Resolved as of 25-Jan-2009 Cough (R05, 786.2) Comments: she eleni check with insurance and see if covers nexium and let me know Status: Resolved as of 06-Feb-2012 Diarrhea (R19.7, 787.91) 16-Jun-2011 Status: Resolved as of 04-Jul-2011 diarrhea- getting colonoscopy Status: Resolved as of 22-Jan-2009 Dysuria (R30.0, 788.1) Comments: although urine not >100,000 colonies will treat as if UTI as symptoms worsen and known stone per US Status: Resolved as of 20-Apr-2014 Encounter for Medicare annual wellness exam (Z00.00, V70.0) Status: Inactive as of 20-Apr-2014 Encounter for screening for malignant neoplasm of cervix (Z12.4, V76.2) Status: Inactive as of 06-Jan-2014 enlarged pancreas and adrenal on ct- she never followed up for results with Drew and I encouraged to be compliant with this- will try to get the results- Status: Resolved as of 25-Jan-2009 Epigastric pain (R10.13, 789.06) Status: Inactive as of 03-Aug-2017 Epigastric Pain (R10.13, 789.06) Status: Resolved as of 13-May-2013 ETD- Status: Resolved as of 25-Jan-2009 Gastritis, acute (K29.00, 535.00) Comments: chronic stable-continue present regimen Status: Resolved as of 01-Nov-2010 Headache (R51, 784.0) Status: Resolved as of 13-Jun-2011 Itching (L29.9, 698.9) Status: Resolved as of 20-Apr-2014 Lateral epicondylitis (Renamed from Backhand tennis elbow) (M77.10, 726.32) Status: Resolved as of 25-Jan-2009 Myalgia and myositis (729.1) Comments: improved Status: Inactive as of 03-Aug-2017 Nausea and vomiting in adult (R11.2, 787.01) Comments: from cipro-- pt didnt want to go back on augmentin so willing to purchase adn try levaquin -- will cont flagyll ---- medication side effect along with discont sympthomo from running out of cyXenaptoalta Status: Inactive as of 05-Dec-2017 Other specified viral infection, in conditions classified elsewhere and of unspecified site (B97.89, 079.89) Status: Resolved as of 20-Apr-2014 Paresthesia (R20.2, 782.0) Status: Resolved as of 22-Jan-2009 Peptic ulcer disease (K27.9, 533.90) Status: Inactive as of 27-Nov-2016 possible lipoma of right latissimus dorsi- Status: Inactive as of 25-Jan-2009 Rib pain on left side (R07.81, 786.50) Status: Resolved as of 06-Jan-2014 right latissimus dorsi pain- get mri of the muscle Status: Resolved as of 25-Jan-2009 screening Status: Inactive as of 20-Apr-2014 screening Status: Inactive as of 20-Apr-2014 screening Status: Inactive as of 20-Apr-2014 screening Status: Inactive as of 26-Oct-2009 screening Status: Inactive as of 01-Nov-2010 SCREENING FOR BLOOD DISORDER NEC (V78.8) Status: Inactive as of 01-Nov-2010 Screening for thyroid disorder (Z13.29, V77.0) Status: Inactive as of 01-Nov-2010 Shingles (B02.9, 053.9) Status: Resolved as of 19-May-2014 Thrush (B37.0, 112.0) Status: Inactive as of 27-Nov-2016 Unspecified Diagnosis Status: Inactive as of 22-Jan-2009 Unspecified Diagnosis Status: Inactive as of 20-Apr-2014 Urinary tract infection (N39.0, 599.0) Status: Resolved as of 20-Apr-2014 wt gain-- Status: Resolved as of 25-Jan-2009 Procedures Procedure Dates Details bowel sx Completed Comments: 03/19 Date Value Details 24-Jun-2018 Surgery Visit Report Result: Comments: See Note; NOTES: [facility] [address] [place] [address]. [address] [place] [address] OFFICE VISIT Date of Service: 06/24/18 MR#: [id number] Acct: [id number] Name: BRANDIE KUO Rep #: [id number] : 1945 Provider: Rylan Bird MD Age/Sex: 73/F Location: [facility] Status: Signed Intake Vital Signs06/24/18 Height 5 ft 1.5 in 06/24/18 Weight: 149 lb Intake Visit Re asons: To discuss test results Chief Complaint: gerd, need for colonoscopy Fisheries Inspector Required: No Is patient in pain?: No Allergies erythromycin base Allergy (Verified 06/24/18 07:52) Rash ibuprofen [From Motrin] Allergy (Verified 06/24/18 07:52) Rash dicyclomine HCl [From Bentyl] Adverse Reaction (Verified 06/24/18 07:52) Nausea nitrofurantoin Adverse Reaction (Verified 06/24/18 07:52) Nausea Sul fa (Sulfonamide Antibiotics) Adverse Reaction (Verified 06/24/18 07:52) Nausea Medications traMADol [Ultram] 100 mg PO BID 09/30/13 [History Confirmed 06/24/18] Bergamot [Paola Bergamot] 02/12/17 [H istory Confirmed 06/24/18] Cyanocobalamin (Vitamin B-12) [B-12] 2,000 mcg PO DAILY 02/12/17 [History Confirmed 06/24/18] Duloxetine HCl 60 mg PO DAILY 02/12/17 [History Confirmed 06/24/18] Folic Acid 2 mg PO DAILY 02/12/17 [History Confirmed 06/24/18] busPIRone [Buspar] 15 mg PO BID 02/12/17 [History Confirmed 06/24/18] Esomeprazole Magnesium [Nexium 24Hr] 22.3 mg PO BID 03/14/17 [History Confirmed ] aspirin 81 mg chewable tablet 81 mg PO QDAY 01/29/18 [History Confirmed 06/24/18] cholecalciferol (vit D3) 1,000 unit-vitamin K2 (MK4) 100 mcg tablet 1 tab PO QDAY 01/29/18 [History Confirmed ] estradiol 0.01% (0.1 mg/gram) vaginal cream See Rx Instructions VAGINAL .COMPLEX #42.5 g 01/29/18 [Rx Confirmed 06/24/18] ferrous sulfate 324 mg (65 mg iron) tablet,delayed release 324 mg PO QDA Y tab 01/29/18 [History Confirmed 06/24/18] metformin ER 500 mg tablet,extended release 24 hr 500 mg PO QDAY 01/29/18 [History Confirmed 06/24/18] gabapentin 600 mg tablet 600 mg PO DAILY 04/25/18 [Hist ory Confirmed 06/24/18] methotrexate sodium 2.5 mg tablet 12.5 mg PO QWEEK tab 04/25/18 [History Confirmed 06/24/18] vitamin K2 40 mcg tablet 40 mcg PO DAILY 04/25/18 [History Confirmed 06/24/18] PFS H Medical History Screening for intestinal cancer (Acute) Shortness of breath (Acute) Anxiety (Acute) Arthritis (Acute) Constipation (Acute) Diabetes (Ac yosvany) Diverticula of colon (Acute) GERD (gastroesophageal reflux disease) (Acute) History of hysterectomy (Acute) Rheumatoid arthritis (Acute) Surgical History History of appendectomy (Acute) History of colectomy (Acute 03/2017) History of colonoscopy (Acute 03/2017) History of esophagogastroduodenoscopy (EGD) (Acute 2014) History of laparoscopic ch olecystectomy (Acute) Family History Mother CVA (cerebral vascular accident) Sister Diabetes Heart disease Brother Heart disease Daughter Breast cancer Social History Smoking Status: Never smoker alcohol intake: never substance use type: does not use caffeine: Yes what type of physical activity do you participate in: none seatbelt use: always do you feel safe at home: Yes additional social history: Cholo- Both are retired HPI HPI HPI: BRANDIE KOU, is a 73 F who presents to the office today for surgical follow-up regarding esophageal dysphasia April 16, 2018 right upper quadrant ultrasound performed at the [facility] Fatty infiltration of the liver. Mild right hydronephrosis. No stones identified. Evidence of previous cholec ystectomy. April 30, 2018 contrast upper GI examination performed at the [facility] Normal findings May 08, 2018 CT scan abdomen and pelvis performed at the [facility] pital. 3 nonobstructing right renal collecting system stones. Evidence of previous cholecystectomy. Normal-appearing liver and stomach. No acute findings May 21, 2018. Esophagogastroduodenoscopy with biopsy and pH probe placement. Colonoscopy with hydrostatic anastomotic dilatation The colonoscopy demonstrated evidence of a previous end-to-side colocolonic anastomosis in the distal sigmoid colo n. Moderate stenosis. Dilatation to 13.5 mm with a hydrostatic balloon was performed. The colonoscope then advanced without difficulty. Diverticulosis of the distal sigmoid identified and hemorrhoids no vandana. No other acute findings. The patient had not been symptomatic from a colorectal standpoint preprocedure. She had had a preoperative history of a sigmoid diverticular recurrent disease. The upper en doscopy suggested a small hiatal hernia and clinical findings suggestive of reflux and some mild bile staining and gastritis. H. pylori was negative. Antral biopsies showed mild chronic gastritis. Inter estingly however biopsies of both the distal and midesophagus showed no evidence of inflammation. The pH probe demonstrated a DeMeester score of 32.5 with 17.1 for first 24hr and 42.2 for the second 24 hr. Esophageal manometry performed June 13, 2018 was abnormal with distal contraction integral 6804. The distal contraction integral highest reading was 9557. Incomplete bolus clearance at 60%. LES basal respiratory mean 31.9 with a residual of 28.1. The e.g. junction demonstrated a median IRP of 27.1 mmHg greater than normal of 15. Nuclear medicine gastric emptying study May 31, 2018. Prom pt visualization of the stomach. No GE reflux identified. The T1/2 linear fit calculated to be 63.43 minutes with normal up to 56 minutes. Findings were felt to be mildly abnormal technetium 99 colloid semisolid phase oatmeal gastric emptying imaging examination. ROS General General: Yes weight change; no appetite, fatigue, colon cancer, breast cancer or weakness HEENT HEENT: Yes eye surgery; no difficulty swallowing, eye injury, swollen glands or hoarseness Endo Endocrine: No thyroid disease, diabetes mellitus, thyroid cancer, Hair loss, heat intolerance or cold intolerance Musc Musculoske letal: Yes rheumatoid arthritis; no back problems, arthritis, gout or joint pain Cardio Cardiovascular: No murmur, pacemaker, heart disease, atrial fibrillation, high blood pressure, heart attack, heart stent, palpitations, shortness of breat with exertion or chest pain Resp Respiratory: No shortness of breath, No sleep apnea, No cough, No COPD, No asthma, No emphysema, No wheezing Gastro Gastrointest inal: Yes abdominal pain, Yes nausea or vomiting, No diarrhea, Yes constipation, No blood in stool, Yes acid reflux, No hemorrhoids, No ulcers, No gallbladder problem, No black,tarry stools Blu Hematol ogic: No blood thinners, No blood disorders, No bleeding, No anemia, No blood clots Neuro Neurologic: No weakness Exam Cardio Heart Sounds: no murmurs Assessment AND Plan Problems 1. Esophageal dysp hagia R13.10 Plan Today was a 20-minute [id number] consultative appointment. I reviewed all of the extensive above evaluation. Findings are curious in that biopsies did not confirm esophageal inflamm ation but the pH study was abnormal. The barium study does not demonstrate a hiatal hernia but I felt on upper endoscopy that one was present. It is of note that the gastric emptying study is abnormal. It is of note that the manometric study is significantly abnormal. With all of this in mind it is not completely clear to me the etiology to her esophageal reflux symptoms/upper abdominal bloating/exce ssive flatus. I am recommending tertiary referral for review of all of the above findings for additional treatment recommendations. 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 It is not clear to brandi conrad that offering her a reflux procedure would be of benefit even though the patient would like to be able to come off her proton pump inhibitors. CC: Dr. Camryn Bird M.D., F.A.C.S. Coding Level of Care Code Off vis,est,level 2 Diagnoses Esophageal dysphagia R13.10 Dysphagia type: esophageal phase 06/24/18 1523 <Electronically signed by Rylan Bird MD> Rudy e Rylan Bird MD Cosigner Signature: Date (if applicable) CC: Camryn Faith DO 31-May-2018 Gastric Emptying Study Result: Comments: See Note; NOTES: [facility] Imaging Services [address] [place] [address] Gastric Emptying Study MR#: [id number] Acct: [id number] Name: BRANDIE KUO Rk Rep #: [id number] : 1945 F 73 From: Carson Thacker DO PCP: Camryn Faith DO Status: REG CLI Study: Gastric Emptying Study Date of Exam: 05/31/18 Exam# [id number] Ordering Dr: Kay Sanchez PA-C CLINICAL : 73-year-old female with reported history of abdominal pain. SEMI-SOLID PHASE 99m Tc SULFUR COLLOID GASTRIC EMPTYING STUDY COMPARISON: CT of the abdomen- pelvis report 05/08/2018 FINDINGS: The patien t was administered 1.1 mCi of 99m Tc sulfur colloid mixed with oatmeal and consumed per os. Image acquisitions in the anterior-posterior projections were obtained for 60 minutes. There is prompt visuali zation of the stomach. There is no gastroesophageal reflux identified. First order kinetics are maintained throughout the duration of the acquisitions. The T1/2 linear fit was calculated to be 63.43 min utes, (Normal: 12-56 minutes). NM/Gastric Emptying Study IMPRESSION: 1. MILDLY ABNORMAL 99m Tc sulfur colloid semi-solid phase (oatmeal) gastric emptying imaging examination. A. Th ere is mild delayed semi-solid phase gastric emptying compared to normal controls with defined first order kinetics throughout all components of the examination. (Alannah et al, J Nucl Med Tech 38: 186, 2010). Electronically Signed: Carson Thacker DO at 8:03 EDT Tel , Service support , CC: Kay Sanchez PA-C; Camryn Faith DO Accounts Receivable Coordinator: Signed 28-May-2018 Surgery Visit Report Result: Comments: See Note; NOTES: [facility] [address] [place] [address] OFFICE VISIT Date of Service: 05/28/18 MR#: [id number] Acct: [id number] Name: BRANDIE KUO Rep #: [id number] : 1945 Provider: Rylan Bird MD Age/Sex: 73/F Location: [facility] Status: Signed Intake Intake Visit Reasons: C-Scope 05/21 Chief Complaint: gerd, need for colonoscopy Allergies erythromycin base Allergy (Verified 04/25/18 08:41) Rash ibuprofen [From Motrin] Allergy (Verified 04/25/18 08:41) Rash dicyclomine HCl [From Bentyl] Adverse Reaction (Verified 04/25/18 08:4 1) Nausea nitrofurantoin Adverse Reaction (Verified 04/25/18 08:41) Nausea Sulfa (Sulfonamide Antibiotics) Adverse Reaction (Verified 04/25/18 08:41) Nausea Medications traMADol [Ultram] 100 mg PO BI D 09/30/13 [History Confirmed 04/25/18] Bergamot [Paola Bergamot] 02/12/17 [History Confirmed 04/25/18] Cyanocobalamin (Vitamin B-12) [B-12] 2,000 mcg PO DAILY 02/12/17 [History Confirmed 04/25/18] Dul oxetine HCl 60 mg PO DAILY 02/12/17 [History Confirmed 04/25/18] Folic Acid 2 mg PO DAILY 02/12/17 [History Confirmed 04/25/18] busPIRone [Buspar] 15 mg PO BID 02/12/17 [History Confirmed 04/25/18] Esom eprazole Magnesium [Nexium 24Hr] 22.3 mg PO BID 03/14/17 [History Confirmed 04/25/18] aspirin 81 mg chewable tablet 81 mg PO QDAY 01/29/18 [History Confirmed 04/25/18] cholecalciferol (vit D3) 1,000 uni t-vitamin K2 (MK4) 100 mcg tablet 1 tab PO QDAY 01/29/18 [History Confirmed 04/25/18] estradiol 0.01% (0.1 mg/gram) vaginal cream See Rx Instructions VAGINAL .COMPLEX #42.5 g 01/29/18 [Rx Confirmed 04/04 11/18] ferrous sulfate 324 mg (65 mg iron) tablet,delayed release 324 mg PO QDAY tab 01/29/18 [History Confirmed 04/25/18] metformin ER 500 mg tablet,extended release 24 hr 500 mg PO QDAY 01/29/18 [Histo ry Confirmed 04/25/18] gabapentin 600 mg tablet 600 mg PO DAILY 04/25/18 [History Confirmed 04/25/18] methotrexate sodium 2.5 mg tablet 12.5 mg PO QWEEK tab 04/25/18 [History Confirmed 04/25/18] vitamin K2 40 mcg tablet 40 mcg PO DAILY 04/25/18 [History Confirmed 04/25/18] [facility] Medical History Screening for intestinal cancer (Acute) Shortness of breath (Acute) Anxiety (Acute) Arthritis (Acute) Con stipation (Acute) Diabetes (Acute) Diverticula of colon (Acute) GERD (gastroesophageal reflux disease) (Acute) Rheumatoid arthritis (Acute) Surgical History History of appendectomy (Acute) History of colectomy (Acute 03/2017) History of colonoscopy (Acute 03/2017) History of esophagogastroduodenoscopy (EGD) (Acute 2014) History of hysterectomy (Acute) History of laparoscopic cholecystectomy (Acu te) Family History Mother CVA (cerebral vascular accident) Sister Diabetes Heart disease Brother Heart disease Daughter Breast cancer Social History Smoking Status: Never smoker alcohol intake: hardeep kelley substance use type: does not use caffeine: Yes what type of physical activity do you participate in: none seatbelt use: always do you feel safe at home: Yes additional social history: [place]- Both are retired HPI HPI HPI: BRANDIE KUO, is a 73 F who presents to the office today for surgical follow-up Her previous concerns are as follows HPI: BRANDIE KUO, is a 72 F who presents to the office to day for surgical follow-up status post a laparoscopic sigmoid colectomy that performed for her for intractable recurrent diverticulitis. I perform that procedure for her on March 19, 2017. She is very pl eased with her progress and has not had any recurrent disease. Her final pathology showed diverticular disease. It is of note that the colonoscopy that I attempted prior to that procedure could not be a ccomplished due to the severity of her diverticular disease. Her only previously accomplished colonoscopy was in 2004. She has had a previous CT scan February 12, 2017. She has evidence of previous cholecy stectomy. To the diverticular disease. Demonstrated a small umbilical hernia at that time and small hiatal hernia. Her previous upper endoscopy was June 16, 2015 with H. pylori negative but with ant ral gastritis. Distal and proximal esophageal esophageal biopsies did not show esophagitis at that time. She did have an abnormal pH probe study at this time.Demeester score32.5 av. with first 24hr 17.1 and 48hr 42.2 On this occasion the patient is also complaining of progressive new recurrent problems of shortness of breath. She does have her head of bed elevated. She complains of intermittent epiga stric pain and breakthrough problems with her chronic Nexium. She is interested in trying to come off of her chronic Nexium. She does not eat within 2 hours of going to sleep. To help evaluate her sit uation she had a combined esophagogastroduodenoscopy with biopsy and pH probe placement as well as a colonoscopy with anastomotic dilatation. She had a previous history of a lap scopic sigmoid colectomy for diverticular disease. On May 21, 2018 did a colonoscopy. I did have to do a hydrostatic dilatation to 13 mm to allow for advancement of the colonoscope. She had an end-to-side anastomosis wit h a very short rectal pouch. Few scattered distal sigmoid diverticula remained. The patient confirms that she has had a previous history of colon polyps. For that reason a follow-up colonoscopy recommen ded in 5 years. If the patient were to further clarify her symptoms it would be problems with intermittent food regurgitation and some abdominal bloating Assessment AND Plan Problems 1. Gastroesopha geal reflux disease, esophagitis presence not specified K21.9 Plan Having reviewed the upper endoscopy showing some mild chronic gastritis. Distal and mid esophageal biopsies showed no signs of inflamm ation. H. pylori is negative. however the pH probe is abnormal The patient does have some symptoms of abdominal bloating in addition to her food regurgitation. I believe that it is important to assess for esophageal motility and gastric emptying. I am recommending to her esophageal manometry and a nuclear medicine gastric emptying study. I will then have her return to the office one more time to disc uss the potential as to whether she could be benefited from a laparoscopic Toupet procedure She has had an opportunity to ask and have questions answered. She will return subsequent to the 2 additional testing procedures. Cc: Dr. Camryn Bird M.D., F.A.C.S. Orders Orders: Coding Level of Care Code Off vis,est,level 2 Diagnoses Gastroesophageal reflux disease, esophagitis p resence not specified K21.9 Esophagitis presence: esophagitis presence not specified 05/28/18 150 <Electronically signed by Rylan Bird MD> Date Rylan Bird MD Cosigner Signature: Date (if applicable) CC: Camryn Faith DO 23-May-2018 Dexa Bone Density Study Result: Comments: See Note; NOTES: [facility] Imaging Services [address] [place] [address] Dexa Bone Density Study MR#: [id number] Acct: [id number] Name: BRANDIE KUO Rep #: [id number] : 1945 F 73 From: Zbigniew Carroll MD PCP: Camryn Faith DO Status: [facility] CLI Study: Dexa Bone Density Study Date of Exam: 05/23/18 Exam# [id number] Ordering Dr: Camryn Faith DO UDY: DUAL ENERGY X-RAY ABSORPTIOMETRY / DXA REASON FOR EXAM: Female, 73 years old. The patient is postmenopausal. Loss of height. TECHNIQUE: Bone Mineral Density (BMD) measurements of lumbar spine and bilateral hips were obtained. COMPARISON: Comparison is made with prior study dated February 15, 2016. FINDINGS: Lumbar Spine (L1-L4): g/cm2 (1.027) / T-score (-1.3) / Z-score (0.5) Findings are suggestive of osteopenia with a moderate fracture risk. Left Femur Total: g/cm2 (0.997) / T-score (-0.1) / Z-score (1.6) Left Femoral Neck: g/cm2 (0.893) / T-score (-1.0) / Z-score (0.9) Right Femur Total: g/cm2 (0.917) / T-score (-0.7) / Z-score (1.0) Right Femoral Neck: g/cm2 (0.819) / T-score (-1.6) / Z-score (0.3) The T- Scores on the most recent prior examination wer e: Lumbar Spine (L1-L4): There has been improvement of bone density since the previous examination. Left Femur Total: which represents an improvement of 3.6%. Right Femur Total: which represents an im provement of 2.7%. BD/Dexa Bone Density Study IMPRESSION: The patient is considered osteopenic as outlined below according to World [employer] Organ[employer] ation (WHO) criteria with a moderate fracture risk. There has been improvement of bone density since the previous examination. Reference Information: The T-score is the number of standard deviations above or below the standard which is normal for young adults at their peak bone mineral density. The World Health Organization (WHO) interprets the T-scores as follows : Above -1 Normal bone density Between -1 and -2.5 Osteopenia Equal to / or below -2.5 Osteoporosis As a practical clinical guideline, osteopenia may be graded as follows: Mild -1 through -1.5 Moderat e -1.6 through -2.0 Severe -2.1 through -2.4 The Z-score is the number of standard deviations above or below age-matched controls. A Z-score of less than -1.5 would be considered abnormal. References: 1. NIH Osteoporosis and Related Bone Diseases http://www.osteo.org 2. International Society for Clinical Densitometry http://www.iscd.org 3. National Osteoporosis Foundation http://www.nof.org Electro nically Signed: Zbigniew Carroll MD at 8:17 EDT Tel [phone], Service support , CC: Camryn Faith DO Accounts Receivable Coordinator: Signed 22-May-2018 Operative Report - Endoscopy Result: Comments: See Note; NOTES: [facility] Medical Records Department [address] [address] Progress Note - Endoscopy 05/21/18 0647 MR#: [id number] Acct: [id number] Name: BRANDIE LOGAN #: [id number] : 1945 73 From: Rylan Bird MD Patient Name: Brandie Kuo Procedure Date: 05/21/2018 6:47 AM Date of : 1945 [address] Age: 73 Procedure: Colonoscopy Indications: Screening for colorectal malignant neoplasm Providers: Rylan Bird Referring MD: Rylan Bird Medicines: See the other procedure note for document ation of the administered medications Complications: No immediate complications. Procedure: Pre-Anesthesia Assessment: - Prior to the procedure, a History and Physical was performed, and patient medicat ions and allergies were reviewed. The patient's tolerance of previous anesthesia was also reviewed. The risks and benefits of the procedure and the sedation options and risks were discussed with the pat ient. All questions were answered, and informed consent was obtained. Prior Anticoagulants: The patient has taken no previous anticoagulant or antiplatelet agents. ASA Grade Assessment: II - A patient w ith mild systemic disease. After reviewing the risks and benefits, the patient was deemed in satisfactory condition to undergo the procedure. After I obtained informed consent, the scope was passed unde r direct vision. Throughout the procedure, the patient's blood pressure, pulse, and oxygen saturations were monitored continuously. The colonoscope was introduced through the anus and advanced to the ce cum, identified by appendiceal orifice and ileocecal valve. The colonoscopy was performed without difficulty. The patient tolerated the procedure well. The quality of the bowel preparation was excellent . Scope In: 6:48:39 AM Scope Withdrawal Time 0 hours 6 minutes 25 seconds Scope Out: 7:04:54 AM Total Procedure Duration Time 0 hours 16 minutes 15 seconds Findings: Hemorrhoids were found on perianal e xam. There was evidence of a prior end-to-side colo-colonic anastomosis in the distal sigmoid colon. This was patent and was characterized by moderate stenosis. The anastomosis was traversed after dilat ion. A TTS dilator was passed through the scope. Dilation with a 13.5 mm colonic balloon dilator was performed. The dilation site was examined following endoscope reinsertion and showed moderate improve ment in luminal narrowing. Estimated blood loss was minimal. Scattered small-mouthed diverticula were found in the distal sigmoid colon. At anastomosis an end to side was found with photo taken of the danilo yarbrough end pouch, healthy in appearance. Impression: - Hemorrhoids found on perianal exam. - Patent end-to-side colo-colonic anastomosis, characterized by moderate stenosis. Dilated. - Diverticulosis in t he distal sigmoid colon. - At anastomosis an end to side was found with photo taken of the blind end pouch, healthy in appearance. - No specimens collected. Recommendation: - Discharge patient to home. - Resume previous diet. - Continue present medications. - Return to my office in 1 week. Procedure Code(s): --- Professional --- 23246, Colonoscopy, flexible; with transendoscopic balloon dilation Diagn osis Code(s): --- Professional --- Z12.11, Encounter for screening for malignant neoplasm of colon K64.9, Unspecified hemorrhoids Z98.0, Intestinal bypass and anastomosis status K57.30, Diverticulosis o f large intestine without perforation or abscess without bleeding CPT copyright 2017 [employer]. All rights reserved. The codes documented in this report are preliminary and upon individual small group instructor review may be revised to meet current compliance requirements. MD Rylan Taylor MD 05/21/2018 7:25:41 AM This report has been signed electronically. Number of Addenda: 1 Note Initiated O n: 05/21/2018 6:47 AM Addendum Number: 1 Addendum Date: 05/21/2018 7:30:35 AM Repeat colonoscopy for screening in 10 years. MD Rylan Taylor MD 05/21/2018 7:30:59 AM This report has been si gned electronically. ____ No Clinically relevant changes since time of dictation ____ See Progress Notes for Changes ____ Dictated on Admission 05/21/18 0846 Date Rylan Bird MD Progress Note - Endoscopy CC: DT: RDC Signed 21-May-2018 Progress Note - Endoscopy Result: Comments: See Note; NOTES: [facility] Medical Records Department [address] [place] [address] Progress Note - Endoscopy 05/21/18 0647 MR#: [id number] Acct: [id number] Name: BRANDIE LOGAN Rep #: [id number] : 1945 73 From: Rylan Bird MD Patient Name: Brandie Kuo Procedure Date: 05/21/2018 6:47 AM Date of : 1945 7871 Age: 73 Procedure: Colonoscopy Indications: Screening for colorectal malignant neoplasm Providers: Rylan Bird Referring MD: Rylan Bird Medicines: See the other procedure note for document ation of the administered medications Complications: No immediate complications. Procedure: Pre-Anesthesia Assessment: - Prior to the procedure, a History and Physical was performed, and patient medicat ions and allergies were reviewed. The patient's tolerance of previous anesthesia was also reviewed. The risks and benefits of the procedure and the sedation options and risks were discussed with the pat ient. All questions were answered, and informed consent was obtained. Prior Anticoagulants: The patient has taken no previous anticoagulant or antiplatelet agents. ASA Grade Assessment: II - A patient w ith mild systemic disease. After reviewing the risks and benefits, the patient was deemed in satisfactory condition to undergo the procedure. After I obtained informed consent, the scope was passed unde r direct vision. Throughout the procedure, the patient's blood pressure, pulse, and oxygen saturations were monitored continuously. The colonoscope was introduced through the anus and advanced to the ce cum, identified by appendiceal orifice and ileocecal valve. The colonoscopy was performed without difficulty. The patient tolerated the procedure well. The quality of the bowel preparation was excellent . Scope In: 6:48:39 AM Scope Withdrawal Time 0 hours 6 minutes 25 seconds Scope Out: 7:04:54 AM Total Procedure Duration Time 0 hours 16 minutes 15 seconds Findings: Hemorrhoids were found on perianal e xam. There was evidence of a prior end-to-side colo-colonic anastomosis in the distal sigmoid colon. This was patent and was characterized by moderate stenosis. The anastomosis was traversed after dilat ion. A TTS dilator was passed through the scope. Dilation with a 13.5 mm colonic balloon dilator was performed. The dilation site was examined following endoscope reinsertion and showed moderate improve ment in luminal narrowing. Estimated blood loss was minimal. Scattered small-mouthed diverticula were found in the distal sigmoid colon. At anastomosis an end to side was found with photo taken of the b linnea end pouch, healthy in appearance. Impression: - Hemorrhoids found on perianal exam. - Patent end-to-side colo-colonic anastomosis, characterized by moderate stenosis. Dilated. - Diverticulosis in t he distal sigmoid colon. - At anastomosis an end to side was found with photo taken of the blind end pouch, healthy in appearance. - No specimens collected. Recommendation: - Discharge patient to home. - Resume previous diet. - Continue present medications. - Return to my office in 1 week. Procedure Code(s): --- Professional --- 22149, Colonoscopy, flexible; with transendoscopic balloon dilation Diagn osis Code(s): --- Professional --- Z12.11, Encounter for screening for malignant neoplasm of colon K64.9, Unspecified hemorrhoids Z98.0, Intestinal bypass and anastomosis status K57.30, Diverticulosis o f large intestine without perforation or abscess without bleeding CPT copyright 2017 [employer]. All rights reserved. The codes documented in this report are preliminary and upon individual small group instructor review may be revised to meet current compliance requirements. MD Rylan Taylor MD 05/21/2018 7:25:41 AM This report has been signed electronically. Number of Addenda: 1 Note Initiated O n: 05/21/2018 6:47 AM Addendum Number: 1 Addendum Date: 05/21/2018 7:30:35 AM Repeat colonoscopy for screening in 10 years. MD Rylan Taylor MD 05/21/2018 7:30:59 AM This report has been si gned electronically. ____ No Clinically relevant changes since time of dictation ____ See Progress Notes for Changes ____ Dictated on Admission 05/21/18 0846 Date Rylan Bird MD Progress Note - Endoscopy CC: [id number] DT: LIU Signed 21-May-2018 Progress Note - Endoscopy Result: Comments: See Note; NOTES: [facility] Medical Records Department [address] [place] [address] Progress Note - Endoscopy 05/21/18 0647 MR#: [id number] Acct: [id number] Name: BRANDIE LOGAN Rep #: [id number] : 1945 73 From: Eduardo Adams MD Patient Name: Brandie Kuo Procedure Date: 05/21/2018 6:47 AM Date of : 1945 Account Number: [id number] Age: 73 Procedure: Colonoscopy Indications: Screening for colorectal malignant neoplasm Providers: Rylan Bird Referring MD: Rylan Bird Medicines: See the other procedure note for docu mentation of the administered medications Complications: No immediate complications. Procedure: Pre-Anesthesia Assessment: - Prior to the procedure, a History and Physical was performed, and patient med ications and allergies were reviewed. The patient's tolerance of previous anesthesia was also reviewed. The risks and benefits of the procedure and the sedation options and risks were discussed with the patient. All questions were answered, and informed consent was obtained. Prior Anticoagulants: The patient has taken no previous anticoagulant or antiplatelet agents. ASA Grade Assessment: II - A patie nt with mild systemic disease. After reviewing the risks and benefits, the patient was deemed in satisfactory condition to undergo the procedure. After I obtained informed consent, the scope was passed under direct vision. Throughout the procedure, the patient's blood pressure, pulse, and oxygen saturations were monitored continuously. The colonoscope was introduced through the anus and advanced to th e cecum, identified by appendiceal orifice and ileocecal valve. The colonoscopy was performed without difficulty. The patient tolerated the procedure well. The quality of the bowel preparation was excel lent. Scope In: 6:48:39 AM Scope Withdrawal Time 0 hours 6 minutes 25 seconds Scope Out: 7:04:54 AM Total Procedure Duration Time 0 hours 16 minutes 15 seconds Findings: Hemorrhoids were found on perian al exam. There was evidence of a prior end-to-side colo-colonic anastomosis in the distal sigmoid colon. This was patent and was characterized by moderate stenosis. The anastomosis was traversed after d ilation. A TTS dilator was passed through the scope. Dilation with a 13.5 mm colonic balloon dilator was performed. The dilation site was examined following endoscope reinsertion and showed moderate imp rovement in luminal narrowing. Estimated blood loss was minimal. Scattered small- mouthed diverticula were found in the distal sigmoid colon. At anastomosis an end to side was found with photo taken of t he blind end pouch, healthy in appearance. Impression: - Hemorrhoids found on perianal exam. - Patent end-to-side colo-colonic anastomosis, characterized by moderate stenosis. Dilated. - Diverticulosis in the distal sigmoid colon. - At anastomosis an end to side was found with photo taken of the blind end pouch, healthy in appearance. - No specimens collected. Recommendation: [facility] - Resume previous diet. - Continue present medications. - Return to my office in 1 week. Procedure Code(s): --- Professional --- 48483, Colonoscopy, flexible; with transendoscopic balloon dilation D iagnosis Code(s): --- Professional --- Z12.11, Encounter for screening for malignant neoplasm of colon K64.9, Unspecified hemorrhoids Z98.0, Intestinal bypass and anastomosis status K57.30, Diverticulos is of large intestine without perforation or abscess without bleeding CPT copyright 2017 [employer]. All rights reserved. The codes documented in this report are preliminary and upon c crower review may be revised to meet current compliance requirements. MD Rylan Taylor MD 05/21/2018 7:25:41 AM This report has been signed electronically. Number of Addenda: 1 Note Initiat ed On: 05/21/2018 6:47 AM Addendum Number: 1 Addendum Date: 05/21/2018 7:30:35 AM Repeat colonoscopy for screening in 10 years. MD Rylan Taylor MD 05/21/2018 7:30:59 AM This report has bee n signed electronically. ____ No Clinically relevant changes since time of dictation ____ See Progress Notes for Changes ____ Dictated on Admission 05/21/18 0846 Date Eduardo Adams MD Progress Note - Endoscopy CC: DD: 09/646 DT: AC Signed 21-May-2018 Progress Note - Endoscopy Result: Comments: See Note; NOTES: [facility] Medical Records Department [address] [place] [address] Progress Note - Endoscopy 05/21/18646 MR#: [id number] Acct: [id number] Name: BRANDIE LOGAN Rep #: [id number] : 1945 73 From: Eduardo Adams MD Patient Name: Brandie Kuo Procedure Date: 05/21/2018 6:47 AM Date of : 1945 Account Number: [id number] Age: 73 Procedure: Colonoscopy Indications: Screening for colorectal malignant neoplasm Providers: Rylan Bird Referring MD: Rylan Bird Medicines: See the other procedure note for docu mentation of the administered medications Complications: No immediate complications. Procedure: Pre-Anesthesia Assessment: - Prior to the procedure, a History and Physical was performed, and patient med ications and allergies were reviewed. The patient's tolerance of previous anesthesia was also reviewed. The risks and benefits of the procedure and the sedation options and risks were discussed with the patient. All questions were answered, and informed consent was obtained. Prior Anticoagulants: The patient has taken no previous anticoagulant or antiplatelet agents. ASA Grade Assessment: II - A patie nt with mild systemic disease. After reviewing the risks and benefits, the patient was deemed in satisfactory condition to undergo the procedure. After I obtained informed consent, the scope was passed under direct vision. Throughout the procedure, the patient's blood pressure, pulse, and oxygen saturations were monitored continuously. The colonoscope was introduced through the anus and advanced to th e cecum, identified by appendiceal orifice and ileocecal valve. The colonoscopy was performed without difficulty. The patient tolerated the procedure well. The quality of the bowel preparation was excel lent. Scope In: 6:48:39 AM Scope Withdrawal Time 0 hours 6 minutes 25 seconds Scope Out: 7:04:54 AM Total Procedure Duration Time 0 hours 16 minutes 15 seconds Findings: Hemorrhoids were found on perian al exam. There was evidence of a prior end-to-side colo-colonic anastomosis in the distal sigmoid colon. This was patent and was characterized by moderate stenosis. The anastomosis was traversed after d ilation. A TTS dilator was passed through the scope. Dilation with a 13.5 mm colonic balloon dilator was performed. The dilation site was examined following endoscope reinsertion and showed moderate imp rovement in luminal narrowing. Estimated blood loss was minimal. Scattered small- mouthed diverticula were found in the distal sigmoid colon. At anastomosis an end to side was found with photo taken of t he blind end pouch, healthy in appearance. Impression: - Hemorrhoids found on perianal exam. - Patent end-to-side colo-colonic anastomosis, characterized by moderate stenosis. Dilated. - Diverticulosis in the distal sigmoid colon. - At anastomosis an end to side was found with photo taken of the blind end pouch, healthy in appearance. - No specimens collected. Recommendation: [facility] - Resume previous diet. - Continue present medications. - Return to my office in 1 week. Procedure Code(s): --- Professional --- 49278, Colonoscopy, flexible; with transendoscopic balloon dilation D iagnosis Code(s): --- Professional --- Z12.11, Encounter for screening for malignant neoplasm of colon K64.9, Unspecified hemorrhoids Z98.0, Intestinal bypass and anastomosis status K57.30, Diverticulos is of large intestine without perforation or abscess without bleeding CPT copyright 2017 [employer]. All rights reserved. The codes documented in this report are preliminary and upon c crower review may be revised to meet current compliance requirements. MD Rylan Taylor MD 05/21/2018 7:25:41 AM This report has been signed electronically. Number of Addenda: 1 Note Initiat ed On: 05/21/2018 6:47 AM Addendum Number: 1 Addendum Date: 05/21/2018 7:30:35 AM Repeat colonoscopy for screening in 10 years. MD Rylan Taylor MD 05/21/2018 7:30:59 AM This report has bee n signed electronically. ____ No Clinically relevant changes since time of dictation ____ See Progress Notes for Changes ____ Dictated on Admission 05/21/18 0845 Date Eduardo Adams MD Progress Note - Endoscopy CC: DT: AC Signed 21-May-2018 Progress Note - Endoscopy Result: Comments: See Note; NOTES: [facility] Medical Records Department [address] [place] [address] Progress Note - Endoscopy 05/21/18621 MR#: [id number] Acct: [id number] Name: BRANDIE LOGAN Rep #: [id number] : 1945 73 From: Eduardo Adams MD Patient Name: Brandie Kuo Procedure Date: 05/21/2018 6:22 AM Date of : 1945 Account Number: [id number] Age: 73 Procedure: Upper GI endoscopy Indications: Gastro-esophageal reflux disease Providers: Rylan Bird Referring MD: Camryn Tobin Medicines: Midazolam 4 mg IV, Meper idine 100 mg IV Complications: No immediate complications. Procedure: Pre-Anesthesia Assessment: - Prior to the procedure, a History and Physical was performed, and patient medications and allergies wer e reviewed. The patient's tolerance of previous anesthesia was also reviewed. The risks and benefits of the procedure and the sedation options and risks were discussed with the patient. All questions we re answered, and informed consent was obtained. Prior Anticoagulants: The patient has taken no previous anticoagulant or antiplatelet agents. ASA Grade Assessment: II - A patient with mild systemic dise ase. After reviewing the risks and benefits, the patient was deemed in satisfactory condition to undergo the procedure. After obtaining informed consent, the endoscope was passed under direct vision. Th roughout the procedure, the patient's blood pressure, pulse, and oxygen saturations were monitored continuously. The gastroscope was introduced through the mouth, and advanced to the second part of duod enum. The upper GI endoscopy was accomplished without difficulty. The patient tolerated the procedure well. Scope In: 6:36:00 AM Scope Out: 6:44:58 AM Total Procedure Duration Time 0 hours 8 minutes 58 seconds Findings: LA Grade A (one or more mucosal breaks less than 5 mm, not extending between tops of 2 mucosal folds) esophagitis with no bleeding was found 36 to 37 cm from the incisors. Biopsies wer e taken with a cold forceps for histology. A small hiatal hernia was present. Diffuse mild inflammation characterized by erythema and bile staining was found in the gastric antrum. Biopsies were taken w ith a cold forceps for histology. The examined duodenum was normal. The ELLIS capsule with delivery system was introduced through the mouth and advanced into the esophagus, such that the ELLIS pH capsul e was positioned 30 cm from the incisors, which was 6 cm proximal to the GE junction. The ELLIS pH capsule was then deployed and attached to the esophageal mucosa. The delivery system was then withdrawn . Endoscopy was utilized for probe placement and diagnostic evaluation. Impression: - LA Grade A reflux esophagitis. Biopsied. - Small hiatal hernia. - Chronic gastritis. Biopsied. - Normal examined duo denum. - The ELLIS pH capsule was deployed. Recommendation: - Discharge patient to home. - Resume previous diet. - Continue present medications. - Return to my office in 1 week. Procedure Code(s): --- P rofessional --- 63657, Esophagogastroduodenoscopy, flexible, transoral; with biopsy, single or multiple Diagnosis Code(s): --- Professional --- K21.0, Gastro- esophageal reflux disease with esophagitis K 44.9, Diaphragmatic hernia without obstruction or gangrene K29.50, Unspecified chronic gastritis without bleeding CPT copyright 2017 [employer]. All rights reserved. The codes document ed in this report are preliminary and upon individual small group instructor review may be revised to meet current compliance requirements. MD Rylan Taylor MD 05/21/2018 7:16:52 AM This report has been signed elect ronically. Number of Addenda: 0 Note Initiated On: 05/21/2018 6:22 AM ____ No Clinically relevant changes since time of dictation ____ See Progress Notes for Changes ____ Dictated on Admission 0845 Date Eduardo Adams MD Progress Note - Endoscopy CC: 0622 DT: AC Signed 08-May-2018 Abdomen/Pelvis without Cont Result: Comments: See Note; NOTES: [facility] Imaging Services [address] [place] [address] Abdomen/Pelvis without Cont MR#: [id number] Acct: [id number] Name: BRANDIE KUO Rep #: [id number] : 1945 F 72 From: Kenneth Hunter MD PCP: Camryn Faith DO Status: REG CLI Study: Abdomen/Pelvis without Cont Date of Exam: 05/08/18 Exam# [id number] Ordering Dr: Pino Jang MD STUDY: CT ABDOMEN AND PELVIS WITHOUT CONTRAST REASON FOR EXAM: Female, 72 years old. Pain. History of kidney stones, cholecystectomy and appendectomy. RADIATION DOSAGE (If Supplied By Facility): CTDI vol = ( 8.95 ) mGy, DLP = ( 472.02 ) mGycm TECHNIQUE: Transaxial images were obtained from the dome of the diaphragm to the symphysis pubis with oral contrast, and without intravenous contrast. Sagitta l and coronal images were reconstructed. Individualized dose optimization techniques were used for this CT. COMPARISON: CT dated 02/12/2017. FINDINGS: Evaluation o f the abdominal viscera is limited in the absence of intravenous contrast. There is atelectasis at the lung bases. The visualized portions of the heart and pericardium are within normal limits. The pa tient is status post cholecystectomy. The liver demonstrates an unremarkable unenhanced appearance. The spleen is normal in size. There are calcified granulomata noted in the spleen. The pancreas dem onstrates an unremarkable unenhanced appearance. The adrenal glands are within normal limits. There is a 3 mm nonobstructing stone in the collecting system of the right kidney. There are no additional urinary stones. There is no hydronephrosis. Normal visualized stomach. There is no bowel obstruction or inflammation. The patient is status post appendectomy. The aorta is normal in caliber. There is no abdominal or pelvic free air, free fluid, fluid collection or lymphadenopathy. There are no destructive osseous lesions. CT/Abdomen/Pelvis w ithout Cont IMPRESSION: 3 mm nonobstructing stone in the collecting system of the right kidney. No additional urinary calculi. No hydronephrosis. No bowel obstruction or inflammation. Electronically Signed: Kenneth Hunter, at 19:31 EDT Tel , Service support , CC: Pino Jang MD; Camryn Faith DO Accounts Receivable Coordinator: Signed 30-Apr-2018 Upper GI w/BA Swallow Result: Comments: See Note; NOTES: [facility] Imaging Services [address] [place] [address] Upper GI w/BA Swallow MR#: [id number] Acct: [id number] Name: BRANDIE KUO Rep #: [id number] : 1945 F 72 From: Zbigniew Carroll MD PCP: Camryn Faith DO Status: REG CLI Study: Upper GI w/BA Swallow Date of Exam: 04/30/18 Exam# [id number] Ordering Dr: Rylan Bird MD STUDY: AIR-CONTRAST UPPER GI SERIES. REASON FOR EXAM: Female, 72 years old. Epigastric pain. FLUOROSCOPY TIME (if supplied): (1:00) minutes/seconds TECHNIQUE: The patient ingested barium. Multiple images of the esophagus stomach and duodenum were obtained. COMPARISON: None. FINDINGS: The esophagus is unremarkable. There is no evidence of gastroesophageal reflux. No ma ss lesion is seen. The patient ingested a 12 mm tablet of barium without any difficulty. The stomach and duodenum are unremarkable. There is no evidence of ulceration. __ RAD/Upper GI w/BA Swallow IMPRESSION: Unremarkable examination. Electronically Signed: Zbigniew Carroll MD at 15:59 EDT Tel [phone], Service support [phone], CC: Camryn Faith DO; Rylan Bird MD Accounts Receivable Coordinator: Signed 25-Apr-2018 Surgery Visit Report Result: Comments: See Note; NOTES: [facility] [address] [place] [address] OFFICE VISIT Date of Service: 04/25/18 MR#: [id number] Acct: [id number] Name: BRANDIE KUO Rep #: [id number] : 1945 Provider: Rylan Bird MD Age/Sex: 72/F Location: [facility] Status: Signed Intake Vital Signs04/25/18 Height 5 ft 1 in 04/25/18 Weight: 149 lb 5 oz 04/25/18 Body Mass Index (BMI) 28.2 04/25/18 Blood Pressure 166/75 Intake Visit Reasons: Acid Reflux Chief Complaint: gerd, need for colonoscopy Fisheries Inspector Required: No Is patient in pain?: No Allergies erythrom ycin base Allergy (Verified 04/25/18 08:41) Rash ibuprofen [From Motrin] Allergy (Verified 04/25/18 08:41) Rash dicyclomine HCl [From Bentyl] Adverse Reaction (Verified 04/25/18 08:41) Nausea nitrofuran toin Adverse Reaction (Verified 04/25/18 08:41) Nausea Sulfa (Sulfonamide Antibiotics) Adverse Reaction (Verified 04/25/18 08:41) Nausea Medications traMADol [Ultram] 100 mg PO BID 09/30/13 [History Confirmed 04/25/18] Bergamot [Paola Bergamot] 02/12/17 [History Confirmed 04/25/18] Cyanocobalamin (Vitamin B-12) [B-12] 2,000 mcg PO DAILY 02/12/17 [History Confirmed 04/25/18] Duloxetine HCl 60 mg PO DAILY 02/12/17 [History Confirmed 04/25/18] Folic Acid 2 mg PO DAILY 02/12/17 [History Confirmed 04/25/18] busPIRone [Buspar] 15 mg PO BID 02/12/17 [History Confirmed 04/25/18] Esomeprazole Magnesium [ Nexium 24Hr] 22.3 mg PO BID 03/14/17 [History Confirmed 04/25/18] aspirin 81 mg chewable tablet 81 mg PO QDAY 01/29/18 [History Confirmed 04/25/18] cholecalciferol (vit D3) 1,000 unit-vitamin K2 (MK4) 1 00 mcg tablet 1 tab PO QDAY 01/29/18 [History Confirmed 04/25/18] estradiol 0.01% (0.1 mg/gram) vaginal cream See Label Instructions VAGINAL .COMPLEX #42.5 g 01/29/18 [Rx Confirmed 04/25/18] ferrous sul fate 324 mg (65 mg iron) tablet,delayed release 324 mg PO QDAY tab 01/29/18 [History Confirmed 04/25/18] metformin ER 500 mg tablet,extended release 24 hr 500 mg PO QDAY 01/29/18 [History Confirmed 04/04 11/18] gabapentin 600 mg tablet 600 mg PO DAILY 04/25/18 [History Confirmed 04/25/18] methotrexate sodium 2.5 mg tablet 12.5 mg PO QWEEK tab 04/25/18 [History Confirmed 04/25/18] vitamin K2 40 mcg tablet 40 mcg PO DAILY 04/25/18 [History Confirmed 04/25/18] Is last menstrual period known: No Post menopausal: Yes Patient : No PFSH Medical History Screening for intestinal cancer (Acute) Short ness of breath (Acute) Anxiety (Acute) Arthritis (Acute) Constipation (Acute) Diabetes (Acute) Diverticula of colon (Acute) GERD (gastroesophageal reflux disease) (Acute) Rheumatoid arthritis (Acute) Surgical History History of appendectomy (Acute) History of colectomy (Acute 03/2017) History of colonoscopy (Acute 03/2017) History of esophagogastroduodenoscopy (EGD) (Acute 2014) History of hyste rectomy (Acute) History of laparoscopic cholecystectomy (Acute) Family History Mother CVA (cerebral vascular accident) Sister Diabetes Heart disease Brother Heart disease Daughter Breast cancer Soci al History Smoking Status: Never smoker alcohol intake: never substance use type: does not use caffeine: Yes what type of physical activity do you participate in: none seatbelt use: always do you feel safe at home: Yes additional social history: [place]- Both are retired HPI HPI HPI: BRANDIE KUO, is a 72 F who presents to the office today for surgical follow-up status post a laparoscopic si gmoid colectomy that performed for her for intractable recurrent diverticulitis. I perform that procedure for her on March 19, 2017. She is very pleased with her progress and has not had any recurrent di sease. Her final pathology showed diverticular disease. It is of note that the colonoscopy that I attempted prior to that procedure could not be accomplished due to the severity of her diverticular dise ase. Her only previously accomplished colonoscopy was in 2004. She has had a previous CT scan February 12, 2017. She has evidence of previous cholecystectomy. To the diverticular disease. Demonstrated a sm all umbilical hernia at that time and small hiatal hernia. Her previous upper endoscopy was June 16, 2015 with H. pylori negative but with antral gastritis. Distal and proximal esophageal esophageal biopsies did not show esophagitis at that time. She did have an abnormal pH probe study at that time. On this occasion the patient is also complaining of progressive new recurrent problems of shortnes s of breath. She does have her head of bed elevated. She complains of intermittent epigastric pain and breakthrough problems with her chronic Nexium. She is interested in trying to come off of her chron ic Nexium. She does not eat within 2 hours of going to sleep. ROS General General: Yes weight change; no appetite, fatigue, colon cancer, breast cancer or weakness HEENT HEENT: Yes eye surgery; no di fficulty swallowing, eye injury, swollen glands or hoarseness Endo Endocrine: No thyroid disease, diabetes mellitus, thyroid cancer, Hair loss, heat intolerance or cold intolerance Musc Musculoskeletal: Yes rheumatoid arthritis; no back problems, arthritis, gout or joint pain Cardio Cardiovascular: No murmur, pacemaker, heart disease, atrial fibrillation, high blood pressure, heart attack, heart stent , palpitations, shortness of breat with exertion or chest pain Resp Respiratory: No shortness of breath, No sleep apnea, No cough, No COPD, No asthma, No emphysema, No wheezing Gastro Gastrointestinal: Yes abdominal pain, Yes nausea or vomiting, No diarrhea, Yes constipation, No blood in stool, Yes acid reflux, No hemorrhoids, No ulcers, No gallbladder problem, No black,tarry stools Blu Hematologic: No blood thinners, No blood disorders, No bleeding, No anemia, No blood clots Neuro Neurologic: No weakness Exam Const General: cooperative, healthy appearing, comfortable, no acute distress [facility] Hea d: normal to inspection Eyes General: appearance normal, both eyes and all related structures Neck Neck: normal visual inspection Chest Chest palpation AND inspection: normal inspection of the chest Res p Effort AND Inspection: normal respiratory effort Auscultation: clear to auscultation bilaterally Cardio Rate: regular rate Rhythm: regular rhythm Heart Sounds: no murmurs GI Palpation: soft, no hepato splenomegaly Other: Well-healed mini Pfannenstiel incision from her colectomy Well-healed larger transverse right lower quadrant incision from a previous appendectomy Small nontender umbilical hernia Musc Cervical Spine: normal cervical lordosis Skin General: no rashes or lesions noted Neuro General: CN's II-XI intact bilaterally Extrem General: no calf tenderness Psych Affect: normal affect Asses sment AND Plan Problems 1. Shortness of breath R06.02 2. Gastroesophageal reflux disease, esophagitis presence not specified K21.9 3. Screening for intestinal cancer Z12.10 Plan I am concerned that the patient's shortness of breath may be secondary to mechanical problems with her hiatal hernia or intractable gastroesophageal reflux disease. It is been 3 years from her previous testing. I recommend a esophagogastroduodenoscopy with anticipated biopsies and pH probe placement. The patient may require future manometry but that will not yet be scheduled. I am also requesting a upper GI contrast study t o get imaging evidence of her upper GI tract. I am recommending a screening colonoscopy. The patient's previous successful screening colonoscopy was 2004. Her colonoscopy performed a year ago was not s uccessful due to the severity of her diverticular disease. She has had an opportunity to ask and have questions answered. She is very much interested in trying to limit her come off of her proton pump inhibitor Nexium. I believe that she may be a future candidate for reflux surgery but as noted above we would need to additionally obtain manometry. I appreciate the ongoing opportunity of assisting wi th her surgical care Cc: Dr. Camryn Bird M.D., F.A.C.S. Orders Orders: Coding Level of Care Code Off vis,est,level 3 Diagnoses Shortness of breath R06.02 Gastroesophageal refl ux disease, esophagitis presence not specified K21.9 Esophagitis presence: esophagitis presence not specified Screening for intestinal cancer Z12.10 04/25/18 0912 <Electronically signed by Crystal Bird MD> Date [facility] Signature: Date (if applicable) CC: Camryn Faith DO 16-Apr-2018 Stress Report Result: Comments: See Note; NOTES: [facility] Cardiovascular Services [address] [place] [address] MR#: [id number] Acct: [id number] Name: BRANDIE KUO Rep #: [id number] : [birth year] 72 From: Julio Cote MD Primary Care: Camryn Faith DO Status: REG CLI Ordering Dr: Sex: F C Stress Test Report Date: 04/16/2018 Procedure: Exercise tolerance test/imaging study Indicat ions: Shortness of breath/dyspnea on exertion Consent: Per the patient Procedure: The patient exercised on a Darian protocol for 6 minutes and 30 seconds completing Stage II and 30 seconds of Stage II I achieving a peak heart rate of 139 bpm (95 % predicted maximal heart rate) with a peak blood pressure 184/60 mmHg and a peak MET capacity of 7 METs. The baseline ECG demonstrated normal sinus rhythm. The peak exercise ECG demonstrated no obvious ECG changes. There were no cardiac dysrhythmias pretest, during exercise, or recovery. The functional capacity was considered average. There was no comp laint of chest discomfort during exercise or recovery. The examination was discontinued secondary to dyspnea. Impression: 1. Technically adequate (percent predicted maximal heart rate greater than 85 %) exercise tolerance test 2. Peak exercise ECG with no obvious ECG changes 3. There were no cardiac dysrhythmias pretest, during exercise, or recovery. 4. Nuclear images pending Myocardial perfusion i maging study: Technique: The patient was injected with 11.3 mCi of technetium 99m Cardiolite and subsequently rest SPECT Cardiolite nuclear imaging was obtained in the horizontal long, vertical long, and short axis views. The patient exercised on a Darian protocol for 6 minutes and 30 seconds completing Stage II and 30 seconds of Stage III achieving a peak heart rate of 139 bpm (95 % predicted haider l heart rate) with a peak blood pressure 184/60 mmHg and a peak MET capacity of 7 METs. The patient was injected with 32.9 mCi of technetium 99m Cardiolite and subsequently stress SPECT Cardiolite nucle ar imaging was obtained in the horizontal long, vertical long, and short axis views. A gated Cardiolite study at peak stress was obtained. Interpretation: Rest and stress SPECT Cardiolite nuclear imag ing status post realignment, normalization, and attenuation correction, demonstrates the appearance of relative uniform tracer uptake and myocardial perfusion appearing within normal limits. There is en d systolic thickening and brightening. The gated Cardiolite study demonstrates myocardial thickening and inward wall motion. The reported LVEF is 86 %. Impression: 1. Rest and stress SPECT Cardiolite nuclear imaging demonstrate relative uniform tracer uptake and myocardial perfusion appearing within normal limits. 2. The gated Cardiolite study reports an LVEF of 86 %. This note was generated with iMusicTweetation software. It may contain incorrect words, spelling, and punctuation that were not noted in checking the note before signing. 04/16/18 171 <Electronically signed by Julio savage MD> Date Julio Cote MD CC: Camryn Faith DO Date Dictated: 04/16/181708 Date Transcribed: 04/16/181708 Accounts Receivable Coordinator: PM Signed 16-Apr-2018 Echocardiogram Complete Result: Comments: See Note; NOTES: [facility] Cardiovascular Services [address] [place] [address] Echo Complete 04/16/18 0844 MR#: [id number] Acct: [id number] Name: BRANDIE KUO ep #: [id number] : 1945 72 From: Julio Cote MD Attending Dr: Camryn Faith DO Status: REG CLI Ordering Dr: Camryn Faith DO Date: 04/16/18 Location: [facility] Sex: F C Admitted: Reason F or Study: SOB on exertion Procedure This was a 2D Doppler, Color Flow transthoracic echocardiogram. The exam was of fair technical quality due to diminished acoustic windows. The study was technically difficult. Exam performed in department. Left Ventricle Normal LV size. Left ventricular systolic function is normal. The estimated ejection fraction is 55 %. Diastolic function: considered indetermina te. No regional wall motion abnormalities noted. Right Ventricle Normal RV size. Normal systolic function. Atria Normal left atrium. Normal right atrium. No doppler evidence for ASD. Mitral Valve The re is no mitral annular calcification. Normal mitral valve. Trivial mitral valve insufficiency. Tricuspid Valve Normal tricuspid valve. Trivial tricuspid valve insufficiency. Right ventricular systolic pressure estimated to be 28 mmHg. Aortic Valve Trisinus/trileaflet aortic valve. Mild diffuse aortic valve thickening. Pulmonic Valve The pulmonic valve is not well visualized. Great Vessels Normal s ized aortic root. Pericardium/Pleural No pericardial effusion. MMode/2D Measurements AND Calculations LVIDd: 3.8 cm IVSd: 0.77 cm Ao root diam: 3.1 cm LVIDs: 2.6 cm LVPWd: 0.83 cm LA dimension: 3.5 cm FS: 32.2 % LAV(MOD-bp): 39.3 ml LVAd ap4: 24.3 cm2 SV(MOD-sp4): 36.5 ml LAV(MOD-bp) Indexed: 23.9 ml/m2 EDV(MOD-sp4): 6 5.9 ml LAV(MOD-sp2): 39.4 ml EDV(sp4-el): 67.8 ml LAV(MOD-sp4): 36.8 ml LVAs ap4: 14.5 cm2 ESV(MOD-sp4): 29.5 ml ESV(sp4-el): 28.9 ml EF(MOD-sp4): 55.3 % EF(sp4- el): 57.4 % SV(sp4-el): 38.9 ml LA A4 area: 15.1 cm2 RA A4 area: 12.8 cm2 Time Measurements MV dec time: 0.20 sec Doppler Measurements AND Calculations MV E ma x josé miguel: 85.0 cm/sec Lat Peak E' José Miguel: 8.0 cm/sec Med Peak E' José Miguel: 6.7 cm/sec MV A max josé miguel: 110.8 cm/sec E/E' lat: 10.6 E/E' med: 12.7 MV E/A: 0.77 MV V2 max: 118.5 cm/sec MV P1/2t max josé miguel: 93.4 cm/sec Ao V2 max: 121.5 cm/sec MV max P.6 mmHg MV P1/2t: 86.2 msec Ao max P.9 mmHg MV V2 mean: 64.1 cm/sec MV dec slope: 3 17.5 cm/sec2 Ao V2 mean: 76.8 cm/sec MV mean P.9 mmHg MVA(P1/2t): 2.6 cm2 Ao mean P.7 mmHg MV V2 VTI: 26.0 cm Ao V2 VTI: 24.3 cm LV V1 max: 101.3 cm/sec PA V2 max: 97.3 cm/sec TR max josé miguel: 250.0 cm/sec LV V1 max P.1 mmHg TR max P.0 mmHg LV V1 mean P.2 mmHg LV V1 mean: 68.5 cm/sec LV V1 VTI: 23.1 cm I nterpretation Summary The study was technically difficult. Left ventricular systolic function is normal. The estimated ejection fraction is 55 %. Trivial mitral valve insufficiency. Trivial tricuspid v alve insufficiency. Mild diffuse aortic valve thickening. Right ventricular systolic pressure estimated to be 28 mmHg. Diastolic function: considered indeterminate. Ordering Physician: Camryn Faith Referring Physician: Camryn Faith Performed By: Sam Quinones [facility] 04/16/18 1559 Date Julio Cote MD CC: Camryn Faith DO Date Dictated: 04/16/18 0844 Date Transcribed: 04/16/181558 Accounts Receivable Coordinator: Signed 16-Apr-2018 Abdomen Limited Result: Comments: See Note; NOTES: [facility] Imaging Services [address] [place] [address] Abdomen Limited MR#: [id number] Acct: [id number] Name: BRANDIE KUO Rep #: [id number] : 1945 F 72 From: Bairon Fernandez MD PCP: Camryn Faith DO Status: REG CLI Study: Abdomen Limited Date of Exam: 04/16/18 Exam# [id number] Ordering Dr: Camryn Faith DO STUDY: ABDOMINAL ULTRASOU ND - RIGHT UPPER QUADRANT REASON FOR VISIT: Female, 72 years old. Epigastric pain x3 months TECHNIQUE: Ultrasound evaluation of the right upper quadrant was performed with real-time and static rene-sc leslie imaging. TECHNICAL QUALITY: Adequate. COMPARISON: 05/03/2016 FINDINGS: Liver: The liver measures 15.8 cm. There is increased echogenicity consistent with fatty infiltration. The bile ducts are within normal limits. There is hepatic color flow. The direction of portal flow is hepatopetal. There is no demonstrated mass lesion. Gallbladder: The patient is statu s post cholecystectomy. Common Bile Duct (C.B.D.): The common bile duct measures 4.0 mm. Pancreas: Normal size of the head, body and tail of the pancreas. There is normal echogenicity of the pancreas. There is no demonstrated pancreatic mass or cyst. Right Kidney: Normal size of the right kidney. The right kidney measures 10.1 x 4.4 x 4.5 cm. Normal renal cortex. The right cortex measures 1.3 cm. T here is no demonstrated renal mass or cyst. There is mild right hydronephrosis. Nonobstructing stones noted. US/Abdomen Limited IMPRESSION: Fatty infiltration of liver, no discrete lesion. Mild right hydronephrosis, there are nonobstructing stones noted in the right kidney. Previous cholecystectomy Limited evaluation of the left lower quadran t did not demonstrate a suspicious abnormality. There is sonographic evidence of a stone in the left kidney. Electronically Signed: Terry Fernandez MD at 12:14 EDT , Service support , CC: Camryn Faith DO Accounts Receivable Coordinator: Signed 01-Feb-2018 Breast Limited Unilateral Result: Comments: See Note; NOTES: [facility] Imaging Services [address] [place] [address] Breast Limited Unilateral MR#: [id number] Acct: [id number] Name: BRANDIE KUO Rep #: [id number] : 1945 F 72 From: Zbigniew Carroll MD PCP: Camryn Faith DO Status: REG CLI Study: Breast Limited Unilateral Date of Exam: 02/01/18 Exam# [id number] Ordering Dr: Lawanda aPtel STUDY: ULTRASOUND BREAST - RIGHT REASON FOR EXAM: Female, 72 years old. Palpable lump in the right breast. TECHNIQUE: Axial and longitudinal images of the RIGHT breast were performed with a high re solution ultrasound transducer. COMPARISON: Comparison is made with prior mammogram done earlier today. FINDINGS: RIGHT Breast: The inferior aspect of the right br east was examined by ultrasound. No solid or cystic mass lesion is seen. US/Breast Limited Unilateral IMPRESSION: Unremarkable sonographic examin ation. ASSESSMENT CATEGORY: BIRADS Category 1: Negative. A letter regarding these results will be sent to the patient by the facility within 30 days. Electronically Signed: Zbigniew Carroll MD at 15:46 EDT Tel [phone], Service support , CC: CHIQUIS Patel; Camryn Faith DO Accounts Receivable Coordinator: Signed 01-Feb-2018 DIAG MAMM W/CAD, BILAT Result: Comments: See Note; NOTES: [facility] Imaging Services [address] [place] [address] DIAG MAMM W/CAD, BILAT MR#: [id number] Acct: [id number] Name: BRANDIE KUO Rep #: [id number] : 1945 F 72 From: Zbigniew Carroll MD PCP: Camryn Faith DO Status: REG CLI Study: DIAG MAMM W/CAD, BILAT Date of Exam: 02/01/18 Exam# [id number] Ordering Dr: Lawanda Patel [facility] REASON FOR EXAM: Female, 72 years old. Right breast lump. PERTINENT HISTORY: Daughter with breast cancer. Prior left excisional breast biopsy. TECHNIQUE: Digital bilat eral breast stephanie (3D mammographic acquisition) in the CC and MLO projections. 2-D mediolateral oblique (MLO) and craniocaudad (CC) views of both breasts were obtained. CAD: Full Field Digital Mammograph y with Computer Added Detection was performed. COMPARISON: Comparison is made with prior study dated April 16, 2017 and February 15, 2016. FINDINGS: Breast Composition : There are scattered areas of fibroglandular density. There are no dominant masses or suspicious calcifications. Stable 4 mm well-defined nodule in the upper slightly lateral portion of the left breas t. No other significant abnormalities are identified. There has been no significant change since the prior study. BI/DIAG MAMM W/CAD, BILAT IMPR ESSION: Stable bilateral diagnostic mammogram. With the patient's history of a palpable abnormality in the inferior retroareolar region of the right breast, correlation with ultrasound is recommended. ASSESSMENT CATEGORY: BIRADS Category 0: Incomplete. Need additional imaging evaluation. A letter regarding these results will be sent to the patient by the facility within 30 days. Approximately 10% of breast cancers are not detected by mammography. A normal mammogram should not delay biopsy of a clinically suspicious abnormality. Electronically Signed: Zbigniew Carroll MD at 15:36 EDT Tel [phone], Service support , CC: CHIQUIS Patel; Camryn Faith DO Accounts Receivable Coordinator: Signed 29-Jan-2018 Form Setter Office Visit Report Result: Comments: See Note; NOTES: [facility] [address] [facility] [place] [id number] OFFICE VISIT Date of Service: 01/29/18 MR#: [id number] Acct: [id number] Name: ADITHYA KUO RA Rep #: [id number] : 1945 Provider: CHIQUSI Patel Age/Sex: 72/F [place] [facility] [place]: Signed Intake Vital Signs01/29/18 Height 5 ft 1 in 01/29/18 Weight: 147 lb 6 oz 01/29/18 Body M ass Index (BMI) 27.8 01/29/18 Blood Pressure 131/74 Intake Visit Reasons: WELLNESS CHECK Chief Complaint: est annual Fisheries Inspector Required: No Is patient in pain?: Yes Allergies erythromycin base Celio rgy (Verified 01/29/18 08:04) Rash ibuprofen [From Motrin] Allergy (Verified 01/29/18 08:04) Rash dicyclomine HCl [From Bentyl] Adverse Reaction (Verified 01/29/18 08:04) Nausea nitrofurantoin Adverse R eaction (Verified 01/29/18 08:04) Nausea Sulfa (Sulfonamide Antibiotics) Adverse Reaction (Verified 01/29/18 08:04) Nausea Medications traMADol [Ultram] 100 mg PO BID 09/30/13 [History Confirmed 01/02 05/21] Bergamot [Paola Bergamot] 02/12/17 [History Confirmed 01/29/18] Cyanocobalamin (Vitamin B-12) [B-12] 2,000 mcg PO DAILY 02/12/17 [History Confirmed 01/29/18] Duloxetine HCl 60 mg PO DAILY 7 [History Confirmed 01/29/18] Folic Acid 2 mg PO DAILY 02/12/17 [History Confirmed 01/29/18] busPIRone [Buspar] 15 mg PO BID 02/12/17 [History Confirmed 01/29/18] Esomeprazole Magnesium [Nexium 24Hr] 2 2.3 mg PO BID 03/14/17 [History Confirmed 01/29/18] aspirin 81 mg chewable tablet 81 mg PO QDAY 01/29/18 [History Confirmed 01/29/18] cholecalciferol (vit D3) 1,000 unit-vitamin K2 (MK4) 100 mcg tablet 1 tab PO QDAY 01/29/18 [History Confirmed 01/29/18] estradiol 0.01% (0.1 mg/gram) vaginal cream See Label Instructions VAGINAL .COMPLEX #42.5 g 01/29/18 [Rx Confirmed 01/29/18] ferrous sulfate 324 mg (6 5 mg iron) tablet,delayed release 324 mg PO QDAY tab 01/29/18 [History Confirmed 01/29/18] metformin ER 500 mg tablet,extended release 24 hr 500 mg PO QDAY 01/29/18 [History Confirmed 01/29/18] Is las t menstrual period known: No Post menopausal: Yes Patient : No : No PFSH Medical History Anxiety (Acute) Arthritis (Acute) Diverti cula of colon (Acute) Family History Mother CVA (cerebral vascular accident) Social History Smoking Status: Never smoker alcohol intake: never substance use type: does not use caffeine: Yes what type of physical activity do you participate in: none seatbelt use: always do you feel safe at home: Yes additional social history: Cholo- Both are retired Pregancy History 2 Elective abortions Hx Para 2 Spontaneous abortions Past Pregnancies Del. DatName GA/WeeksOutcome Route [facility] LocaProviderFOB e ht en tn Unknown 1965 Lisa nda Unknown 1969 Bartolo hard HPI WELLNESS CHECK: Details: BRANDIE KUO is a 72 year old who presents for annual exam. Right breast tenderness X 4 days History of abnormal PAP: no Last mammogram: 04/2017 History of abnormal mammogram: no Colon cancer screenin Female Reproductive History Questions: Metorrhagia: No, Sexually active: Yes, Dyspareunia: Yes, PCB: No Menopausal Treatment: No HRT, Yes Vaginal Estrogen (premarin cream) ROS Const Constitutional: Denies fatigue, weight gain or weight loss Cardio Card: Denies chest pain Resp Resp: Denies cough or shortness of breath with activity GI GI: Denies abdomina l pain, constipation, change in stools, vomiting or bloating : Reports as per HPI; denies urinary frequency, pelvic pain, urinary urgency, vaginal discharge, vaginal itching, urinary incontinence o r difficulty urinating Exam Const General: cooperative, healthy appearing, no acute distress, well developed Orientation: alert, oriented to person, oriented to place [facility] Head: normal to inspection Neck Neck: normal visual inspection Thyroid: thyroid normal Lymphatic: no lymphadenopathy noted Chest Breast inspection: normal inspection of the breasts, normal inspection of the axillae Breast palpati on: normal palpation of the breasts (left), normal palpation of the axillae (bilateral), no axillary lymphadenopathy (bilateral), abnormal palpation of the breast right: mass mobile and cystic Other: 7: 00 position, 3cm from areola Resp Effort AND Inspection: normal respiratory effort Auscultation: clear to auscultation bilaterally Cardio Rate: regular rate Rhythm: regular rhythm GI Palpation: soft, no ntender, no masses Rectal Exam: mass, deferred External Female Exam: normal external appearance, normal appearance of the urethra Urethra: normal appearance of the urethra, normal palpation Speculum Exam - Vagina: normal appearance of the vagina, normal vaginal discharge, atrophic vaginal mucosa (mild) Speculum Exam - Cervix: normal appearance of the cervix Bimanual Exam- Vagina AND Uterus: normal bimanual exam, uterine size normal, uterine shape normal, uterus non-tender Bimanual Exam- Adnexa, other: normal adnexae, no adnexal masses, adnexae non-tender, pelvic support normal Pelvic Support: nor mal Neuro General: alert, oriented x3 Psych Affect: normal affect Assessment AND Plan Problems 1. Encounter for gynecological examination with abnormal finding Z01.411 2. Mass of right breast N63.10 3 . Mastodynia of right breast N64.4 4. Atrophic vaginitis N95.2 Plan Completed breast and pelvic exam Reviewed diet and exercise Pap NA Mammogram bilateral diagnostic with right ultrasound Colonoscopy u p to date Bone density do not see in hospital records, she thought was done at [facility]. Will check [facility] records also. RTO 1 year, prn with problems Lawanda Patel AUTO APPRAISER Orders Orders: Medications New : Coding Level of Care Code Pelvic/Breast Diagnoses Encounter for gynecological examination with abnormal finding Z01.411 Gynecological examination findings: abnormal findings PRESENT Mass of righ t breast N63.10 Mastodynia of right breast N64.4 Atrophic vaginitis N95.2 01/29/18 0858 <Electronically signed by Lawanda Patel SUPERVISOR LENDING [employer]IVITIES-C> Date ____ Lawanda Patel SUPERVIS[employer]-C Cosigner Signature: Date (if applicable) CC: 26-Dec-2017 Carotid Duplex Ultrasound Result: Comments: See Note; NOTES: [facility] Cardiovascular Services [address] [place] [address] Carotid Duplex Ultrasound 12/25/17 1043 MR#: [id number] Acct: [id number] Name: BRANDIE ARTEAGA Rep #: [id number] : 1945 72 From: Ej Ortiz MD Attending Dr: Camyrn Faith DO Status: REG CLI Ordering Dr: Camryn Faith DO Date: 12/25/17 Location: [facility] Sex: F C Admitted: Reason For Study: Carotid stenosis Rt. Velocities/BP Lt. Velocities/BP Prox CCA 87.9/18.2 cm/sec. Prox CCA 134.0/24.4 cm/sec. Mid CCA 92.6/19.3 cm/sec. Mid CCA 119.0/26.7 cm/sec. Dist CCA 92.0/18.2 cm/sec. Dist CCA 86.4/23.6 cm/sec. Prox ICA 81.5/17.6 cm/sec. Prox ICA 54.3/13.8 cm/sec. Mid ICA 105.0/32.2 cm/sec. Mid ICA 87.4/27.0 cm/sec. Dist ICA 80.7/19.2 cm/sec. Dist ICA 96.7/29.3 cm/sec. Rt. I CA/CCA = 1.1. Lt. ICA/CCA = .81. Prox ECA 151.0/22.8 cm/sec. Prox ECA 113.0/17.6 cm/sec. Rt. Vert. 59.8/17.0 cm/sec. Lt. Vert. 80.3/18.8 cm/sec. Right Extracranial There is intimal thickening but no si gnificant atherosclerotic plaque noted in the right common carotid artery. There is intimal thickening but no significant atherosclerotic plaque noted in the right internal carotid artery. There is inti mal thickening but no significant atherosclerotic plaque noted in the right external carotid artery. Antegrade flow is noted in the right vertebral artery. Left Extracranial There is intimal thickening but no significant atherosclerotic plaque noted in the left common carotid artery. There is intimal thickening but no significant atherosclerotic plaque noted in the left internal carotid artery. There is heterogeneous, irregular atherosclerotic plaque noted in the left external carotid artery. Antegrade flow is noted in the left vertebral artery. Procedure Carotid Duplex [address]. Exam performed in [facility]. Interpretation Summary Mild (<50%) stenosis right extracranial internal carotid. Mild (<50%) stenosis left extracranial internal carotid. Flow within the vertebral arteries is antegrade bilaterally. Ordering Physician: Camryn Faith Referring Physician: Mai Faith Performed By: Adelita Ramirez RVT 12/26/17823 Date Ej Ortiz MD CC: Rk Faith DO Date Dictated: 12/25/17 1043 Date Transcribed: 12/26/17823 Accounts Receivable Coordinator: Signed 26-Sep-2017 Urgent Care Visit Report Result: Comments: See Note; NOTES: [place] [id number] OFFICE VISIT Date of Service: 08/28/17 MR#: [id number] Acct: [id number] Name: BRANDIE KUO #: [id number] : 1945 Provider: Carmine ELDER Age/Sex: 72/F [place] [facility] [place] Status: Signed Intake Vital Signs08/28/17 Height 5 ft 1 in 08/28/17 Weight: 146 lb 08/28/17 Body Mass Index (BMI) 27.6 Intake Visit Reasons: Sinus infection Fisheries Inspector Required: No Is patient in pain?: No Allergies erythromycin base Allergy (Verified 08/28/17 09:42) Rash ibuprofen [From Motrin] Allergy (Verifie d 08/28/17 09:42) Rash dicyclomine HCl [From Bentyl] Adverse Reaction (Verified 08/28/17 09:42) Nausea nitrofurantoin Adverse Reaction (Verified 08/28/17 09:42) Nausea Sulfa (Sulfonamide Antibiotics) Ad verse Reaction (Verified 08/28/17 09:42) Nausea Medications TraMADol [Ultram] 100 mg PO BID 09/30/13 [History Confirmed 03/20/17] Bergamot [Paola Bergamot] 02/12/17 [History] BusPIRone [Buspar] 15 m g PO BID 02/12/17 [History Confirmed 03/14/17] Cyanocobalamin (Vitamin B-12) [B- 12] 2,000 mcg PO DAILY 02/12/17 [History Confirmed 03/14/17] Duloxetine HCl 60 mg PO DAILY 02/12/17 [History Confirmed 08/19] Folic Acid 2 mg PO DAILY 02/12/17 [History Confirmed 03/14/17] Hydroxychloroquine [Plaquenil] 200 mg PO DAILY 02/12/17 [History Confirmed 03/14/17] Methotrexate 12.5 mg PO Q7D 02/12/17 [History C onfirmed 03/14/17] Esomeprazole Magnesium [Nexium 24Hr] 22.3 mg PO BID 03/14/17 [History Confirmed 03/19/17] cephalexin 500 mg capsule 500 mg PO Q12H 10 Days #20 cap 08/28/17 [Rx Confirmed 08/28/17] PFSH Medical History Hyperlipidemia (Chronic) Acute diverticulitis (Acute) Social History Smoking Status: Never smoker HPI Sinusitis: Details: BRANDIE KUO, is a 72 F who presents to the office today for complaint of sinus congestion pressure and pain for the past 10 day. She is a pressure pain is caused intermittent headaches which is made better w ith ibuprofen. She also complains of slightly sore throat with postnasal drainage. No fever, chills, sweats. No chest pain or shortness of breath. No other associated symptoms or alleviating/aggravating factors. ROS Const Constitutional: Positive for headache(s); no fever(s), chills, night sweats or abnormal sleep pattern ENT ENT: Positive for headache(s), nasal congestion, sinus pressure, sinus pain and nasal discharge; no ear pain Resp Respiratory: No cough or shortness of breath Cardio Cardiology: No shortness of breath, irregular heart rhythm or fast heart rate Neuro Neurology: Positive for hea dache(s); no confusion Psych Psychiatric: No abnormal sleep pattern, No confusion Exam Const General: cooperative HENMT Head: normal to inspection Ears: hearing grossly normal bilaterally Nose: nasal discharge purulent Face and sinus: sinus tenderness frontal and maxillary Mouth: oral mucosae normal Throat: abnormal tonsil bilaterally, postnasal drainage Resp Effort AND Inspection: normal respirator y effort Auscultation: Bilateral: Clear to Auscultation Cardio Rate: regular rate Rhythm: regular rhythm Neuro General: alert, CN's II-XI intact bilaterally Psych Appearance: grossly normal Mental Statu s: mental status grossly normal Assessment AND Plan 1. Acute non-recurrent maxillary sinusitis J01.00; J01.00 Status Acute Plan Encouraged to get plenty of rest, drink lots of clear liquids, and use T ylenol or Ibuprofen (unless contraindicated) for fever and comfort. Patient also educated on other symptomatic management techniques. To be seen in 7-10 days if no improvement; sooner if worsening of sy mptoms. Patient advised of potential red flags when appropriate report to the ED. Patient verbalized understanding all the above. Plan Detail Other Medications New: Coding Level of Care Code Off vis, new,level 3 Diagnoses Acute non-recurrent maxillary sinusitis J01.00; J01.00 Chronicity: acute Recurrence: non-recurrent Sinusitis location: maxillary 09/10/17 6555 <Electronically signed by Carmine ELDER> Date Carmine ELDER Cosign Signature: Date (if applicable) CC: 10-Sep-2017 Urgent Care Visit Report Result: Comments: See Note; NOTES: [facility] [address] [place] [address] OFFICE VISIT Date of Service: 08/28/17 MR#: [id number] Acct: [id number] Name: BRANDIE KUO Rep #: [id number] : 1945 Provider: Carmine ELDER Age/Sex: 72/F Location: [facility] Status: Signed Intake Vital Signs08/28/17 Height 5 ft 1 in 08/28/17 Weight: 146 lb 08/28/17 Body Mass Index (BMI) 27.6 Intake Visit Reasons: Sinus infection Fisheries Inspector Required: No Is patient in pain?: No Allergies erythromycin base Allergy (Verified 08/28/17 09:42) Rash ibuprofen [From Motrin] Allergy (Verifie d 08/28/17 09:42) Rash dicyclomine HCl [From Bentyl] Adverse Reaction (Verified 08/28/17 09:42) Nausea nitrofurantoin Adverse Reaction (Verified 08/28/17 09:42) Nausea Sulfa (Sulfonamide Antibiotics) Ad verse Reaction (Verified 08/28/17 09:42) Nausea Medications TraMADol [Ultram] 100 mg PO BID 09/30/13 [History Confirmed 03/20/17] Bergamot [Paola Bergamot] 02/12/17 [History] BusPIRone [Buspar] 15 m g PO BID 02/12/17 [History Confirmed 03/14/17] Cyanocobalamin (Vitamin B-12) [B- 12] 2,000 mcg PO DAILY 02/12/17 [History Confirmed 03/14/17] Duloxetine HCl 60 mg PO DAILY 02/12/17 [History Confirmed 08/19] Folic Acid 2 mg PO DAILY 02/12/17 [History Confirmed 03/14/17] Hydroxychloroquine [Plaquenil] 200 mg PO DAILY 02/12/17 [History Confirmed 03/14/17] Methotrexate 12.5 mg PO Q7D 02/12/17 [History C onfirmed 03/14/17] Esomeprazole Magnesium [Nexium 24Hr] 22.3 mg PO BID 03/14/17 [History Confirmed 03/19/17] PFSH Medical History Hyperlipidemia (Chronic ) Acute diverticulitis (Acute) Social History Smoking Status: Never smoker HPI Sinusitis: Details: BRANDIE KUO, is a 72 F who presents to the office today for Assessment AND Plan 1. Acute non-recurrent maxillary sinusitis J01.00; J01.00 Coding Diagnoses Acute non-recurrent maxillary sinusitis J01.00; J01.00 Sinusitis location: maxillary Chronici ty: acute Recurrence: non-recurrent 09/10/17 8814 <Electronically signed by Carmine ELDER> Date Carmine ELDER Cosigner Signature : Date (if applicable) CC: 16-Apr-2017 SCREENING MAMM (CAD), BILAT Result: Comments: See Note; NOTES: [facility] Imaging Services [address] [place] [address] SCREENING MAMM (CAD), BILAT MR#: [id number] Acct: [id number] Name: BRANDIE KUO Rep #: [id number] : 1945 F 71 From: Zbigniew Carroll MD PCP: Camryn Faith DO Status: [facility] Study: SCREENING MAMM (CAD), BILAT Date of Exam: 04/16/17 Exam# [id number] Ordering Dr: Camryn Faith DO MAMMOGRAPHY - BILATERAL SCREENING REASON FOR EXAM: Female, 71 years old. Routine annual screening examination. PERTINENT HISTORY: Daughter with breast cancer. Remote left excisional breast biops y. TECHNIQUE: Digital bilateral breast stephanie (3D mammographic acquisition) in the CC and MLO projections. 2-D mediolateral oblique (MLO) and craniocaudad (CC) views of both breasts were obtained. CAD: F ull Field Digital Mammography with Computer Added Detection was performed. COMPARISON: Comparison is made with prior study dated February 15, 2016 and February 09, 2015. FIN DINGS: Breast Composition: There are scattered areas of fibroglandular density. There are no dominant masses or suspicious calcifications. Stable 4 mm well- defined nodule in the superior deep lateral a spect of the left breast. No other significant abnormalities are identified. There has been no significant change since the prior study. HPBI/SC REENING MAMM (CAD), BILAT IMPRESSION: Stable bilateral screening mammogram. Yearly follow-up mammogram recommended. (A) ASSESSMENT CATEGORY: BIRADS Category 2: Amish gn. A letter regarding these results will be sent to the patient by the facility within 30 days. Approximately 10% of breast cancers are not detected by mammography. A normal mammogram should not delay biopsy of a clinically suspicious abnormality. [id number] Electronically Signed: Zbigniew Carroll MD at 8:58 EDT Tel [phone], Service support , CC: Camryn Faith DO Accounts Receivable Coordinator: Signed 15-Mar-2017 12 Lead Electrocardiogram Result: Comments: See Note; NOTES: [facility] Cardiovascular Services [address] [place] [address] [facility] [place] 03/14/17 0732 MR#: [id number] Acct: [id number] Name: BRANDIE KUO Rep # : [id number] : 1945 71 From: Luis Buckley MD Attending Dr: Rylan Bird MD Status: PRE IN Ordering Dr: Rylan Bird MD Date: 03/14/17 Location: [facility] Sex: F C Admitted: Test Reason : Blood Pressure : / mmHG Vent. Rate : 078 BPM Atrial Rate : 078 BPM P-R Int : 130 ms QRS Dur : 084 ms QT Int : 386 ms P-R-T Axes : 044 026 070 degrees QTc Int : 440 ms Normal sinus rhythm Low voltage Q RS Borderline ECG Confirmed by LUIS BUCKLEY ([id number]), brands editor DEENA TOUSSAINT ([id number]) on 03/15/2017 10:41:46 AM Referred By: CARLIE TEJEDA Confirmed By:LUIS BUCKLEY 03/15/17 1041 Date Luis Buckley MD CC: Luis Buckley MD; Camryn Faith DO Date Dictated: 03/14/17731 Date Transcribed: 03/14/17731 Accounts Receivable Coordinator: Signed 12-Feb-2017 Emergency Department Summary Result: Comments: See Note; NOTES: [facility] Medical Records Department [address] [place] [address] Emergency Department Summary MR#: [id number] Acct: [id number] Name: BRANDIE KUO Rep #: [id number] : 1945 71 From: Luis Garcia DO PCP: Camryn Faith DO Status: [facility] ER DATE OF SERVICE: 02/12/2017 CHIEF COMPLAINT: Abdominal pain. HISTORY OF PRESENT ILLNESS: A very p leasant 71-year-old female with history of diverticulitis states she ate some strawberries about 4 days ago and 2 days after that she began to have some pain, left lower quadrant, pain when she urinates and when she defecates, she saw her primary care physician today, was placed on Augmentin and Flagyl. She states the pain seems to have gotten worse. She denies any fevers. She denies any bleeding. PH YSICAL EXAMINATION: VITAL SIGNS: Afebrile. Vital signs are stable. ABDOMEN: The patient does have tenderness, some mild guarding in the left lower and suprapubic quadrant. I do not appreciate any reboun d. EMERGENCY DEPARTMENT COURSE: Basic labs were essentially negative. Creatinine 1.11. CT of the abdomen and pelvis demonstrates uncomplicated descending and sigmoid diverticulitis. No perforation. She received fluids, morphine, Zofran and feels significantly improved. I will write for some OxyIR as well as Zofran. Return if worsening. CLINICAL IMPRESSION: Acute sigmoid diverticulitis. Luis kenney DO T: NTS JOB: [id number] 02/12/172224 <Electronically signed by Luis Garcia DO> Date Luis Garcia DO Cosigner Signature (If I ndicated): Date CC: Camryn Faith DO Date Dictated: 02/12/171934 Date Transcribed: 02/12/171934 Accounts Receivable Coordinator: Signed 12-Feb-2017 Discharge Instruction Result: Comments: See Note; NOTES: [facility] Medical Records Department [address] [place] [address] Discharge Instruction 02/12/171913 MR#: [id number] Acct: [id number] Name: Michelle KUO Rep #: [id number] : 1945 71 From: Luis Garcia DO PCP: Camryn Faith DO Status: REG ER ED Disposition - Plan for ED Patient: Disposition: Home or Assisted Living Chief Complaint: Abd Pain Instructions: ED Diverticulitis Prescriptions: Oxycodone [Oxyir] 5 - 10 mg PO Q4H PRN PRN #25 tablet PRN Reason: Pain Ondansetron [Zofran Odt] 4 mg PO Q6H PRN PRN #15 tablet PRN Reason: Nausea Referrals: Camryn Faith DO [Primary Care Provider] - 3-5 Days if not improving What to do if you have Problems For any increased pain, shortness of breath, bleeding, nausea or vomiting, chest pa in, or any unexpected problems, contact your Primary Care Provider. Call [facility] ([phone]) or report to the closest Emergency Room. Call 911 if necessary. 02/12/17 1916 <Electron ically signed by Luis Garcia DO> Date Luis Garcia DO Cosigner Signature (If Indicated): Date CC: Camryn Faith DO 12-Feb-2017 Abdomen/Pelvis W IV Cont ONLY Result: Comments: See Note; NOTES: [facility] Imaging Services [address] [place] [address] Verdana 4d Abdomen/Pelvis W IV Cont ONLY MR#: [id number] Acct: [id number] Name: ADITHYA KUO RA Rep #: [id number] : 1945 F 71 From: Gloria Whitman MD PCP: Camryn Faith DO Status: REG ER Study: Abdomen/Pelvis W IV Cont ONLY Date of Exam: 02/12/17 Exam# [id number] Ordering Dr: Palak Garcia DO STUDY: CT ABDOMEN AND PELVIS WITH CONTRAST REASON FOR EXAM: Female, 71 years old. Pain nausea and history of diverticulitis hypertension, surgical history appendectomy cholecystectomy hyster ectomy RADIATION DOSAGE (If Supplied By Facility): CTDIvol = ( 13.86 ) mGy, DLP = ( 880.62 ) mGycm TECHNIQUE: Transaxial images were obtained from the dome of the diaphragm to the symphysis pubis with out oral contrast. 100ML ml of Isovue 300 contrast was administered. Sagittal and coronal images were reconstructed. Individualized dose optimization techniques were used for this CT. COMPARISON: 2015 CT scan abdomen and pelvis FINDINGS: The visualized lung bases are unremarkable. The visualized portions of the heart are within normal limits. There is mild intrahepatic ductal dilatation. The common duct measures 6.3 mm stable since prior study. There are multiple benign calcified granulomata of the spleen. Normal pancreas. Normal bilateral adrena l glands. There is a left renal cyst measuring 1.3 x 1.2 cm. There is a 3.6 mm stone in the right kidney. There is no evidence of hydronephrosis. There is a small hiatal hernia. Normal small intestine . There is moderate stool in the colon. Within the distal descending colon and sigmoid there are numerous diverticula. There is focal inflammatory change in the pelvis adjacent to the distal descending colon and proximal sigmoid on image #94 of the axial views. There is no evidence of significant free fluid free air or abscess development. There is non- visualization of the appendix. There is partial calcification of the aorta. Normal inferior vena cava. Normal retroperitoneum. The bladder wall is mildly thickened. There is absence of the uterus consistent with a prior hysterectomy. There is a sma ll umbilical hernia containing fat. Normal osseous structures. CT/Abdomen/Pelvis W IV Cont ONLY IMPRESSION: Status post cholecystectomy stable mo derate intrahepatic and extrahepatic ductal dilatation Evidence of a granulomatous disease Stable nonobstructing right renal stone. Stable left renal cysts. Mild diverticulitis of the distal descend ing colon/sigmoid on image #94 the axial views. Status post hysterectomy Status post appendectomy. Degenerative change thoracolumbar spine. Electronically Signed: Gloria Whitman MD at 19:20 EDT Tel , Service support , CC: Luis Garcia DO; Camryn Faith DO Accounts Receivable Coordinator: Signed 03-May-2016 Transvaginal Non- Result: Comments: See Note; NOTES: [facility] Imaging Services [address] [place] [address] Verdana 4d Transvaginal Non- MR#: [id number] Acct: [id number] Name: BRANDIE KUO Rep #: [id number] : 1945 F 70 From: Zbigniew Carroll MD PCP: Royal Perea Status: REG CLI Study: Transvaginal Non- Date of Exam: 05/03/16 Exam# [id number] Ordering Dr: Royal Perea STUDY: ULTRASOUND OF THE FEMALE PELVIS - COMPLETE REASON FOR EXAM: Female, 70 years old. 4 month history of abdominal pain. LMP: The patient is postmenopausal. TECHNIQUE: Transabdominal and Transvagi nal TECHNICAL QUALITY: Adequate. COMPARISON: None. FINDINGS: The patient is status post hysterectomy. The right ovary is visualized. The right ovary measures 3.3 cm x 1.7 cm x 1.3 cm. There is no right ovarian cyst or ovarian mass. There is no visualized right adnexal mass or complex lesion. There is normal arterial and normal venous vascularity. The patient is status post left oophorectomy. There is no fluid in the cul-de-sac. US/Transvaginal Non- IMPRESSION: The patient is status post hyste rectomy and left oophorectomy. No other abnormality is seen. Electronically Signed: Zbigniew Carroll MD at 11:16 EDT Tel [phone], Service support [phone], CC: Royal Perea Accounts Receivable Coordinator: Signed 03-May-2016 Abdomen Complete Result: Comments: See Note; NOTES: [facility] Imaging Services [address] [place] [address] Verdana 4d Abdomen Complete MR#: [id number] Acct: [id number] Name: BRANDIE KUO Rep #: [id number] : 1945 F 70 From: Zbigniew Carroll MD PCP: Royal Perea Status: REG CLI Study: Abdomen Complete Date of Exam: 05/03/16 Exam# [id number] Ordering Dr: Royal Perea STUDY: ABDOMINAL ULTRASOUND REASON FOR EXAM: Female, 70 years old. 4 month history of abdominal pain. Hiatal hernia. TECHNIQUE: Transabdominal ultrasound was performed with real-time and static rene scale imaging. TE CHNICAL QUALITY: Adequate. COMPARISON: Comparison is made with prior study dated April 24, 2013. FINDINGS: Liver: The liver measures 14.1 cm. There is increased e chogenicity consistent with fatty infiltration. The bile ducts are within normal limits. There is hepatic color flow. The direction of portal flow is hepatopetal. There is no demonstrated mass lesion. Gallbladder: The patient is status post cholecystectomy. Common Bile Duct (C.B.D.): The common bile duct measures 4.0 mm. Pancreas: Normal size of the head, body and tail of the pancreas. There is nor mal echogenicity of the pancreas. There is no demonstrated pancreatic mass or cyst. Spleen: Normal size of the spleen. The spleen measures 10.2 cm x 4.4 cm x 4.3 cm. Multiple calcified granulomas are s een within the spleen. Right Kidney: Normal size of the right kidney. The right kidney measures 9.7 cm x 4.7 cm x 5.2 cm. Normal renal cortex. The right cortex measures 1.3 cm. There is no demonstrated renal mass or cyst. There is no right hydronephrosis. Suspect a 3 mm nonobstructive intrarenal calculus. Left Kidney: Normal size of the left kidney. The left kidney measures 9.7 cm x 5.8 cm x 5.3 cm. Normal renal cortex. The left cortex measures 1.4 cm. There is a 9 mm x 10 mm x 8 mm cyst. There is no left hydronephrosis. I suspect a 5 mm x 5 mm x 1.4 cm nonobstructive intrarenal calculus. There i s no ascites. US/Abdomen Complete IMPRESSION: Findings suggestive of bilateral nonobstructive intrarenal calculi. Small left renal cyst. Electr onically Signed: Zbigniew Carroll MD at 11:14 EDT Tel [phone], Service support [phone], CC: Royal Perea Accounts Receivable Coordinator: Signed 03-May-2016 Pelvic (Non ) Result: Comments: See Note; NOTES: [facility] Imaging Services [address] [place] [address] Verdana 4d Pelvic (Non ) MR#: [id number] Acct: [id number] Name: BRANDIE KUO Deborah p #: [id number] : 1945 F 70 From: Zbigniew Carroll MD PCP: Royal Perea Status: REG CLI Study: Pelvic (Non ) Date of Exam: 05/03/16 Exam# [id number] Ordering Dr: Royal Perea STUDY: ULTRASOUND OF THE FEMALE PELVIS - COMPLETE REASON FOR EXAM: Female, 70 years old. 4 month history of abdominal pain. LMP: The patient is postmenopausal. TECHNIQUE: Transabdominal and Transvaginal LEONA HNICAL QUALITY: Adequate. COMPARISON: None. FINDINGS: The patient is status post hysterectomy. The right ovary is visualized. The right ovary measures 3.3 cm x 1.7 cm x 1.3 cm. There is no right ovarian cyst or ovarian mass. There is no visualized right adnexal mass or complex lesion. There is normal arterial and normal venous vascularity. The patient is status post left oophorectomy. There is no fluid in the cul-de-sac. US/Pelvic (Non ) IMPRESSION: The patient is status post hysterectomy and left oophorectomy. No other abnormality is seen. Electronically Signed: Zbigniew Carroll MD at 11:16 EDT Tel [phone], Service support [phone], CC: Royal Perea Accounts Receivable Coordinator: Signed 15-Feb-2016 Bilat Scrn Digital AND CAD Result: Comments: See Note; NOTES: [facility] Imaging Services [address] [place] [address] Verdana 4d Bilat Scrn Digital AND CAD MR#: [id number] Acct: [id number] Name: BRANDIE KUO Rep #: [id number] : 1945 F 70 From: Zbigniew Carroll MD PCP: Royal Perea Status: REG CLI Study: Bilat Scrn Digital AND CAD Date of Exam: 02/15/16 Exam# [id number] Ordering D r: Kylie Haywood DO MAMMOGRAPHY - BILATERAL SCREENING REASON FOR EXAM: Female, 70 years old. Routine annual screening examination. PERTINENT HISTORY: Prior left excisional breast biopsy. TECHNI QUE: Digital bilateral breast tomosynthesis (3-D mammographic acquisition) in the CC and MLO projections. Synthesized 2-D images (C-View reconstruction from tomosynthesis acquisition) providing bilate ral breast CC and MLO views. Mediolateral oblique (MLO) and craniocaudad (CC) views of both breasts were obtained. CAD: Full Field Digital Mammography with Computer Added Detection was performed. C OMPARISON: Comparison is made with prior study dated February 09, 2015 and January 16, 2014. FINDINGS: Breast Composition: There are scattered areas of fibroglandular den sity. There are no dominant masses or suspicious calcifications. There is a stable 4.3 mm well-defined nodule in the superior deep lateral aspect of the left breast. This is unchanged. No other si gnificant abnormalities are identified. There has been no significant change since the prior study. IMPRESSION: Stable bilateral screening mammogram. Yearly foll ow-up mammogram recommended. (A) ASSESSMENT CATEGORY: BIRADS Category 2: Benign. A letter regarding these results will be sent to the patient by the facility w ithin 30 days. Approximately 10% of breast cancers are not detected by mammography. A normal mammogram should not delay biopsy of a clinically suspicious abnormality. [id number] Electronically Shaina d: Zbigniew Carroll MD at 9:50 EDT Tel [phone], Service support [phone], CC: Kylie Haywood DO; Royal Perea Accounts Receivable Coordinator: Signed 15-Feb-2016 Dexa Bone Density/Append Skel Result: Comments: See Note; NOTES: [facility] Imaging Services [address] [place] [address] Verdana 4d Dexa Bone Density/Append Skel MR#: [id number] Acct: [id number] [facility] e: BRANDIE KUO Rep #: [id number] : 1945 F 70 From: Zbigniew Carroll MD PCP: Royal Perea Status: REG CLI Study: Dexa Bone Density/Append Skel Date of Exam: 02/15/16 Exam# [id number] Orde ring Dr: Kylie Haywood DO STUDY: DUAL ENERGY X-RAY ABSORPTIOMETRY / DXA REASON FOR EXAM: Female, 70 years old. Early menopause. Loss of height. TECHNIQUE: Bone Mineral Density (BMD) measurements o f lumbar spine and bilateral hips were obtained. COMPARISON: Comparison is made with prior study dated July 15, 2013. FINDINGS: Lumbar Spine (L1-L4): g/cm 2 (0.988) / T-score (-1.6) / Z-score (0.1) Findings are suggestive of osteopenia with a moderate fracture risk. Left Femur Total: g/cm2 (0.962) / T-score (- 0.4) / Z-score (1.2) Left Femoral Neck: g/ cm2 (0.875) / T-score (-1.2) / Z-score (0.6) Right Femur Total: g/cm2 (0.893) / T-score (-0.9) / Z-score (0.7) Right Femoral Neck: g/cm2 (0.799) / T-score (-1.7) / Z-score (0.1) The T-Scores on the most recent prior examination were: Lumbar Spine (L1-L4): There has been worsening of bone density since the previous examination. Left Femur Total: which represents a worsening of 3.5%. Right Fem ur Total: which represents a worsening of 3.6%. IMPRESSION: The patient is considered osteopenic as outlined below according to World Matt Organization (WHO) cr iteria with a moderate fracture risk. There has been worsening of bone density since the previous examination. Reference Information: The T-score is the number of standard deviations above or below the standard which is normal for young adults at their peak bone mineral density. The World Health Organization (WHO) interprets the T-scores as follows: Above -1 Normal bone density Between -1 and -2.5 Osteopenia Equal to / or below - 2.5 Osteoporosis As a practical clinical guideline, osteopenia may be graded as follows: Mild -1 through -1.5 Moderate - 1.6 through -2.0 Severe -2.1 through -2.4 The Z-score is the number of standard deviations above or below age-matched controls. A Z-score of less than -1.5 would be considered abnormal. References : 1. NIH Osteoporosis and Related Bone Diseases http://www.osteo.org 2. International Society for Clinical Densitometry http://www.iscd.org 3. National Osteoporosis Foundation http://www.nof.org El ectronically Signed: Zbigniew Carroll MD at 9:26 EDT Tel [phone], Service support [phone], CC: Kylie Haywood DO; Royal Perea Accounts Receivable Coordinator: Signed 02-Feb-2016 Carotid Duplex Ultrasound Result: Comments: See Note; NOTES: [facility] Cardiovascular Services [address] [place] [address] Carotid Duplex Ultrasound 02/01/16 0856 MR#: [id number] Acct: [id number] Name: BRANDIE KUO Rep #: [id number] : 1945 70 From: Ej Ortiz MD Attending Dr: Kylie Haywood DO Status: REG CLI Ordering Dr: Kylie Haywood DO Date: 02/01/16 Location: [facility] Sex: F C Ad mitted: Reason For Study: atherosclerosis Rt. Velocities/BP Lt. Velocities/BP Prox CCA 97.3/19.3 cm/sec. Prox CCA 106/22.8 cm/sec. Mid CCA 91.5/19.9 cm/sec. Mid CCA 97.4/23.6 cm/sec. Dist CC A 76.8/20.5 cm/sec. Dist CCA 97.4/25.1 cm/sec. Prox ICA 108/22.0 cm/sec. Prox ICA 101/25.9 cm/sec. Mid ICA 102/25.1 cm/sec. Mid ICA 96.6/31.4 cm/sec. Dist ICA 107/38.5 cm/sec. Dist ICA 105/27.5 cm/se c. Rt. ICA/CCA = 1.2. Lt. ICA/CCA = 1.1. Prox ECA 159/21.2 cm/sec. Prox ECA 123/22.8 cm/sec. Rt. Vert. 51.9/11.4 cm/sec. Lt. Vert. 61.3/15.7 cm/sec. Right Extracranial There is homogeneous, smooth atherosclerotic plaque noted in the right common carotid artery. There is homogeneous, smooth atherosclerotic plaque noted in the right internal carotid artery. There is intimal thickening but no s ignificant atherosclerotic plaque noted in the right external carotid artery. Antegrade flow is noted in the right vertebral artery. Left Extracranial There is intimal thickening but no significant atherosclerotic plaque noted in the left common carotid artery. There is intimal thickening but no significant atherosclerotic plaque noted in the left internal carotid artery. There is intimal thick ening but no significant atherosclerotic plaque noted in the left external carotid artery. Antegrade flow is noted in the left vertebral artery. Procedure Carotid Duplex [id number]. The exam was diagno stic. Exam performed in department. Interpretation Summary Mild (<50%) stenosis right extracranial internal carotid. Mild (<50%) stenosis left extracranial internal carotid. Flow wi thin the vertebral arteries is antegrade bilaterally. Ordering Physician: Kylie Haywood By: Blue Joseph RVT 02/02/16 1123 Date Ej Ortiz MD CC: Kylie Haywood DO Date Dictated: 02/01/16 0856 Date Transcribed: 02/02/16 1123 Accounts Receivable Coordinator: Signed 25-Jan-2016 EKG ([id number]) Comments: ekg showed normal sinus rhythym, normal axis, no acute st/t wave changes Result: [MEASUREMENTS ANALYSIS] Date of Test: 01/25/2016 10:38:09; Heart Rate: 73; CA Interval: 132; QRS: 95; QT Interval: 408; Corrected QT Interval (QTc): 430; P Wave [place]: 52; QRS Wave [place]: 20; T Wave [place]: 61; Blood Pressure: 124/68 [ECG DIAGNOSTIC STATEMENTS] Date of Test: 01/25/2016 10:38:09; Summary: Sinus Rhythm Low voltage in limb leads. ABNORMAL 28-Oct-2015 Abdomen/Pelvis WITH Contrast Result: Comments: See Note; NOTES: [facility] Imaging Services [address] [place] [address] Verdana 4d Abdomen/Pelvis WITH Contrast MR#: [id number] Acct: [id number] Name : BRANDIE KUO Rep #: [id number] : 1945 F 70 From: Zbigniew Carroll MD PCP: Kylie Haywood DO Status: REG CLI Study: Abdomen/Pelvis WITH Contrast Date of Exam: 10/28/15 Exam# [id number] [facility] Dr: Kylie Haywood DO STUDY: CT ABDOMEN AND PELVIS WITH CONTRAST REASON FOR EXAM: Female, 70 years old. Left-sided abdominal pain. RADIATION DOSAGE (If Supplied By Facility): CTDIvol = ( 10.43 ) mGy, DLP = ( 953.46 ) mGycm TECHNIQUE: Transaxial images were obtained from the dome of the diaphragm to the symphysis pubis with oral contrast. 100 ml of Isovue 300 contrast was administered. S agittal and coronal images were reconstructed. Delayed imaging was obtained as well. COMPARISON: Comparison is made with prior study dated September 05, 2014. FIND INGS: Stable mild increased linear markings at the lung bases suggestive of linear scarring. The visualized portions of the heart are within normal limits. Normal liver. The patient is status post cholecystectomy. There are multiple benign calcified granulomata of the spleen. Normal pancreas. Normal bilateral adrenal glands. A punctate calcification is seen in the lower pole calyx of the rig ht kidney. 8.2 mm cyst in the upper pole of the left kidney. There is a small hiatal hernia. Normal small intestine. There are multiple colonic diverticula consistent with diverticulosis. The patien t is status post appendectomy. There is scattered atherosclerotic calcification of the abdominal aorta, without a demonstrated aneurysm. Normal inferior vena cava. Normal retroperitoneum. The uri nary bladder is empty at the time of the examination. There is absence of the uterus consistent with a prior hysterectomy. Normal abdominal wall. There are diffuse degenerative changes of the visual ized lumbar spine. IMPRESSION: Sigmoid diverticulosis with no evidence of diverticulitis. Stable examination. Electronically Signed: Zbigniew Carroll MD at 15:09 EST Tel [phone], Service support [phone], CC: Kylie Haywood DO Accounts Receivable Coordinator: Signed 25-Oct-2015 L/S Spine Min 4 Views Result: Comments: See Note; NOTES: [facility] Imaging Services [address] [place] [address] Verdana 4d L/S Spine Min 4 Views MR#: [id number] Acct: [id number] Name: BRANDIE KUO Rep #: [id number] : 1945 F 70 From: Zbigniew Carroll MD PCP: Kylie Haywood DO Status: REG CLI Study: L/S Spine Min 4 Views Date of Exam: 10/25/15 Exam# [id number] Ordering Dr: Kylie Haywood DO STUDY: X-RAY - LUMBAR SPINE REASON FOR EXAM: Female, 70 years old. Low back and bilateral hip pain. TECHNIQUE: 5 view(s) of the lumbar spine were obtained including oblique views. C OMPARISON: None FINDINGS: Normal lumbar lordosis. There is no substantial scoliosis. There is a normal alignment of the vertebrae. There is multilevel endplate spondylosis of the lumbar vertebrae. There is multi-level degenerative disc disease with multi-level disc space narrowing. Facet joint osteoarthritis. There is atherosclerotic calcification of the abdominal aorta without a demonstrated aneurysm. IMPRESSION: Degenerative changes of the spine, as detailed above. Electronically Signed: Zbigniew Carroll MD at 8:59 EST Tel [phone], Service support [phone], RAD/L/S Spine Min 4 Views IMPRESSION: Degenerative changes of the spine, as detailed a zabrina. Electronically Signed: Zbiginew Carroll MD at 8:59 EST Tel [phone], Service support [phone], CC: Kylie Haywood DO Accounts Receivable Coordinator: Signed 17-Jun-2015 Operative Report Result: Comments: See Note; NOTES: [facility] Medical Records Department [address] [place] [address] Operative Report MR#: [id number] Acct: [id number] Name: BRANDIE KUO Rep #: [id number] : 1945 70 From: Rylan Bird MD PCP: Kylie Haywood DO Status: REG CLI DATE OF SERVICE: 06/16/2015 DATE OF PROCEDURE: June 16, 2015 PREOPERATIVE DIAGNOSIS: Int ractable gastroesophageal reflux disease, abdominal pain with intractable diarrhea and suspected episode of acute diverticulitis, personal history of colon polyps. POSTOPERATIVE DIAGNOSES: Small hia marli hernia, mild chronic gastritis, sigmoid diverticulosis. PROCEDURES: Esophagogastroduodenoscopy with gastric and distal esophageal and proximal esophageal biopsies with Ellis pH probe placement, colonoscopy with random colonic biopsies. SURGEON: Rylan Bird M.D. DESCRIPTION OF PROCEDURE: Time out and informed consent was obtained. A 70-year-old female was taken to the endoscopy suite. Her oropharynx was anesthetized with 0.5% Cetacaine. She was placed in the left lateral decubitus position. Throughout both the upper and lower endoscopy, she received a total of 100 mg of Demerol and 4 mg of Versed as intravenous sedation. Under direct visualization, GF-130 gastroscope was inserted in the esophageal inlet, advanced without difficulty. Proximal, mid, distal esophagus initially did not appear to be remarkable. EG junction was at 35 cm. Scope was advanced in the stomach, very mild amount of flat chronic gastritis identified, a small amount of bile was staining the stomach, no e vidence of active bleeding. The scope was advanced through the pylorus. The first and second portions of the duodenum were inspected. No evidence of abnormality. The scope was withdrawn back into the stomach, retroflexed, the EG junction inspected. Small hiatal hernia noted. The cardia was not remarkable. The scope was placed back in an antegrade viewing position, lesser and greater curvatures ins pected. The scope was advanced back down to the antral area. Biopsy was obtained for histopathology and PyloriTek. Excess fluid and air was aspirated free. The scope was withdrawn to the distal esoph lior. Distal esophageal biopsies obtained of otherwise normal mucosa in that looking for possible eosinophilic esophagitis and the scope was withdrawn back to the proximal esophagus where proximal eso phageal biopsy was obtained as well, then the probe was checked likely lubricated. It was carefully inserted to 29 cm. Suction was applied. The device was fired. Then, dissection was removed and the d evice was released. Finally, the upper scope was replaced, demonstrating the probe to be in good position. The procedure was completed. The patient tolerated it well. The patient was kept in the lef t lateral decubitus position. Digital rectal exam performed, normal anal tone. Mild hemorrhoidal changes. Flexible CF 140 colonoscope inserted in the rectum, advanced through the colon, sigmoid colon was rather tortuous. There was extensive diverticulosis; however the scope was advanced past this area and then nicely advanced to the cecum. Cecum and ileocecal valve area was nicely achieved. Bowel prep was quite good. This scope was carefully withdrawn from the ascending, transverse, descending and sigmoid colon. Random colonic biopsies were obtained. No gross abnormalities noted. There was fa irly extensive sigmoid diverticulosis, but the lumen appeared to be patent. There was no evidence of active purulence or erythema. The scope was withdrawn to the rectum. Mild hemorrhoidal changes note d. Excess fluid and air was aspirated free. The procedure was completed with the patient tolerating it well. IMPRESSION: Mild chronic gastritis, normal- appearing proximal and distal esophagus. Small hiatal hernia. Extensive sigmoid diverticulosis without luminal narrowing. The patient will pursue the pH probe monitoring for 48 hours. The random gastroesophageal and random colonic biopsies were pending. We will have her return to the office in 1 week's time for surgical follow up. Based upon personal history of colon polyps, next routine colonoscopy for screening would be in 5 years. Rylan Bird MD T: NTS JOB: [id number] 06/17/15 0548 <Electronically signed by Rylan Bird MD> Date Rylan hidalgo Signature (If Indicated): Date CC: Kylie Haywood DO; Rylan Bird MD Date Dictated: 06/16/15833 Date Transcribed: 06/16/15833 Accounts Receivable Coordinator: Signed 15-Feb-2015 Carotid Duplex Ultrasound Result: Comments: See Note; NOTES: [facility] Cardiovascular Services [address] [place] [address] Carotid Duplex Ultrasound 02/15/15 1339 MR#: [id number] Acct: [id number] Na me: BRANDIE KUO Rep #: [id number] : 1945 69 From: Ej Ortiz MD Attending Dr: Kylie Haywood DO Status: REG CLI Ordering Dr: Kylie Haywood DO Date: 02/15/15 Location: [facility] Sex: F C Admitted : Rt. Velocities/BP Lt. Velocities/BP Prox CCA 74.5/17 cm/sec. Prox CCA 117/26.5 cm/sec. Mid CCA 72.1/17.6 cm/sec. Mid CCA 92.3/31.4 cm/sec. Dist CCA 86.2/17.6 cm/sec. Dist CCA 91.3/31.4 cm/sec. Prox ICA 86.1/16.7 cm/sec. Prox ICA 93.3/25.5 cm/sec. Mid ICA 114/36.3 cm/sec. Mid ICA 100/35.4 cm/sec. Dist ICA 106/39.3 cm/sec. Dist ICA 92.3/35.4 cm/sec. Rt. ICA/CCA = 1.6. Lt. ICA/CCA = 1.1. P sue ECA 101/16.9 cm/sec. Prox ECA 87.4/9.8 cm/sec. Rt. Vert. 61.9/15.7 cm/sec. Lt. Vert. 64.8/27.5 cm/sec. Right Extracranial There is homogeneous, smooth atherosclerotic plaque noted in the right c ommon carotid artery. There is intimal thickening but no significant atherosclerotic plaque noted in the right internal carotid artery. There is intimal thickening but no significant atherosclerotic plaque noted in the right external carotid artery. Antegrade flow is noted in the right vertebral artery. Left Extracranial There is homogeneous, smooth atherosclerotic plaque noted in the left co mmon carotid artery. There is intimal thickening but no significant atherosclerotic plaque noted in the left internal carotid artery. There is intimal thickening but no significant atherosclerotic p laque noted in the left external carotid artery. Antegrade flow is noted in the left vertebral artery. Procedure Carotid Duplex 38585. The exam was diagnostic. Exam performed in department. Inter pretation Summary Mild (<50%) stenosis right extracranial internal carotid. Mild (<50%) stenosis left extracranial internal carotid. Flow within the vertebral arteries is antegrade bi laterally. Ordering Physician: Kylie Haywood Performed By: BRENTON Eng Electronically si gned by: MD Ej Ortiz on 02/15/2015 07:45 PM 02/15/151944 Date Ej Ortiz MD CC: Kylie Haywood DO Date Dictated: 02/15/15 1339 Date Transcribed: 02/15/151944 Accounts Receivable Coordinator: Signed 09-Feb-2015 Bilat Scrn Digital AND CAD Result: Comments: See Note; NOTES: [facility] Imaging Services [address] [place] [address] Breast Imaging Report MR#: [id number] Acct: [id number] Name: BRANDIE KUO Rep #: [id number] : 1945 F 69 From: Zbigniew Carroll MD PCP: Kylie Haywood DO Status: REG CLI Study: Bilat Scrn Digital AND CAD Date of Exam: 02/09/15 Exam# [id number] Ordering Dr: Kylie Haywood DO MAMMOGRAPHY - BILATERAL SCREENING REASON FOR EXAM: Female, 69 years old. Routine annual screening examination. PERTINENT HISTORY: Prior left excisional breast biopsy. TECHNIQUE: Digital examina tion. Mediolateral oblique (MLO) and craniocaudad (CC) views of both breasts were obtained. CAD: CAD was performed on this study. COMPARISON: Comparison is made with prior study dated January 16, 2014 a nd January 01, 2013. FINDINGS: Breast Composition: There are scattered areas of fibroglandular density. There are no dominant masses or suspicious calcifications. T here is a stable 4.3 mm well-defined nodule in the superior deep lateral portion of the left breast. This is unchanged as compared to prior studies. This most likely represents a small cyst. No oth er significant abnormalities are identified. There has been no significant change since the prior study. IMPRESSION: Stable bilateral screening mammogram. Yearly follow-up recommended. (A) ASSESSMENT CATEGORY: BIRADS Category 2: Benign. A letter regarding these results will be sent to the patient by the facility within 30 days. Approximately 10% of breast cancers are not detected by mammography. A normal mammogram should not delay biopsy of a clinically suspicious abnormality. Electronically Signed: Zbigniew pop MD at 10:49 EDT Tel [phone], Service support [phone], CC: Kylie PATEL Accounts Receivable Coordinator: Signed 05-Sep-2014 Discharge Instruction Result: Comments: See Note; NOTES: [facility] Medical Records Department [address] [place] [address] Discharge Instruction 09/05/14 0648 MR#: [id number] Acct: [id number] Name: BRANDIE KUO Rep #: [id number] : 1945 69 From: Kamran Swartz MD PCP: Kylie Haywood DO Status: REG ER ED Disposition - Plan for ED Patient: Disposition: Home Chief Complaint: Abd Pa in Instructions: ED Palpitations Referrals: Kylie Haywood DO [Primary Care Provider] - Kirby Jeronimo DO [STAFF PHYSICIAN] - What to do if you have Problems For any increased pain, shortness of breath, bleeding, nausea or vomiting, chest pain, or any unexpected problems, contact your doctor. Call [facility] ( [phone]) or report to the closest Emergency Room. Call 911 if necessar y. 09/05/14 0744 <Electronically signed by Kamran Swartz MD> Date Kamran Swartz MD Cosigner Signature (If Indicated): Date CC: Kylie Haywood DO 05-Sep-2014 Discharge Instruction Result: Comments: See Note; NOTES: [facility] Medical Records Department [address] [place] [address] Discharge Instruction 09/05/14 0647 MR#: [id number] Acct: [id number] Name: BRANDIE KUO Rep #: [id number] : 1945 69 From: Kamran Swartz MD PCP: Kylie Haywood DO Status: REG ER ED Disposition - Plan for ED Patient: Disposition: Home Chief Complaint: Abd Pa in Instructions: ED Palpitations Referrals: Kylie Haywood DO [Primary Care Provider] - Kirby Jeronimo DO [STAFF PHYSICIAN] - What to do if you have Problems For any increased pain, shortness of breath, bleeding, nausea or vomiting, chest pain, or any unexpected problems, contact your doctor. Call [facility] ( [phone]) or report to the closest Emergency Room. Call 911 if necessar y. 09/05/14 0648 <Electronically signed by Kamran Swartz MD> Date Kamran Swartz MD Cosigner Signature (If Indicated): Date CC: Kylie Haywood DO 05-Sep-2014 Abdomen/Pelvis without Cont Result: Comments: See Note; NOTES: [facility] Imaging Services [address] [place] [address] CAT Scan Report MR#: [id number] Acct: [id number] Name: BRANDIE KUO Rep #: [id number] : 1945 F 69 From: Viviana Robles PCP: Kylie Haywood DO Status: REG ER Study: Abdomen/Pelvis without Cont Date of Exam: 09/05/14 Exam# [id number] Ordering Dr: Kamran Swartz MD STUDY: CT ABDOMEN AND PELVIS WITHOUT CONTRAST REASON FOR EXAM: Female, 69 years old. Left lower quadrant pain. History of diverticulitis. RADIATION DOSAGE (If Supplied By Facility): CTDIvol = ( 8.91 ) mGy, DLP = ( 420.46 ) mGycm TECHNIQUE: Transaxial images were obtained from the dome of the diaphragm to the symphysis pubis without oral contrast, and without intravenous contrast. Sagittal and coronal images were reconstructed. COMPARISON: 09/30/2013 FINDINGS: The visualized lung bases demonstrate posteriorly linear mild fibrotic atelectasis. The visualized portions of the heart are within normal limits. There are a few calcified tiny granulomata of the liver. There is non-visualization of the gallbladder, which may be secondary to either contraction or a prior cholecystectomy. There are multiple benign calcified granulomata of the spleen. Normal unenhanced pancreas. Normal bilateral adrenal glands. There is a 2.5 mm small nonobstructing calcu judy present in lower pole calyx of the right kidney. Normal left kidney. There is a very small hiatal hernia. Normal small intestine. There are multiple colonic diverticula consistent with sigmoid d iverticulosis. Also there is abnormal wall thickening of the mid sigmoid colon with pericolonic inflammatory stranding of the fat noted, consistent with acute diverticulitis, somewhat similar to the previous exam. There is no focal abscess formation. There Is non-visualization of the appendix. There is atherosclerotic calcification of the abdominal aorta, without a demonstrated aneurysm. Normal inferior vena cava. Normal retroperitoneum. Centrally a few small reactive mesenteric lymph nodes are visualized. Normal urinary bladder. There is absence of the uterus consistent with a prior hyst erectomy. Normal abdominal wall. There are degenerative changes of the visualized lumbar spine, most pronounced at L5-S1 level. IMPRESSION: 1. Abnormal wall th ickening and pericolonic inflammatory stranding of the sigmoid, consistent with acute diverticulitis. Since differential diagnosis includes malignancy, followup with colonoscopy is recommended at [facility] nically appropriate time. 2. Non-obstructing small right renal calculus. 3. Degenerative lumbosacral spondylosis. Electronically Signed: Brooks Robles MD at 6:33 EST Tel , Service support [phone], CC: Kylie Haywood DO; Kamran Swartz MD Accounts Receivable Coordinator: Signed 16-Jan-2014 Bilat Scrn Digital & CAD Result: Comments: See Note; NOTES: [facility] Imaging Services [address] [place] [address] Breast Imaging Report MR#: [id number] Acct: [id number] Name: BRANDIE KUO Rep #: [id number] : 1945 F 68 From: Zbigniew Carroll MD PCP: Kylie Haywood DO Status: REG [facility] Exam# [id number] Ordering Dr: Kylie Haywood DO MAMMOGRAPHY - BILATERAL SCREENING REASON FOR EXAM: Fem leslie, 68 years old. Routine annual screening examination. PERTINENT HISTORY: Non-contributory. TECHNIQUE: Digital examination. Mediolateral oblique (MLO) and craniocaudad (CC) views of both breasts were obtained. CAD: CAD was performed on this study. COMPARISON: Comparison is made with prior study dated January 01, 2013 and January 01, 2012. FINDINGS: The colette st composition is composed of scattered fibroglandular tissues ranging from 25% to 50% of the breast. There are no dominant masses or suspicious calcifications. No other significant abnormalities a re identified. There has been no significant change since the prior study. IMPRESSION: Stable bilateral screening mammogram. Yearly follow-up recommended. (A) _ ASSESSMENT CATEGORY: BIRADS Category 2: Benign finding(s). A letter regarding these results will be sent to the patient by the facility within 30 days. Approxima tely 10% of breast cancers are not detected by mammography. A normal mammogram should not delay biopsy of a clinically suspicious abnormality. Electronically Signed: Zbigniew Carroll MD at 8:42 EDT Tel [phone], Service support [phone], CC: Kylie Haywood DO Accounts Receivable Coordinator: Signed 14-Oct-2013 Ribs Uni Min 3V w/PA Chest Result: Comments: See Note; NOTES: [facility] Imaging Services [address] [place] [address] Radiology Report MR#: [id number] Acct: [id number] Name: BRANDIE KUO Rep #: [id number] : 1945 F 68 From: Zbigniew Carroll MD PCP: Kylie Haywood DO Status: REG CLI Study: Ribs Uni Min 3V w/PA Chest Date of Exam: 10/14/13 Exam# [id number] Ordering Dr: Kylie Haywood DO STUD Y: X-RAY - BILATERAL RIBS WITH CHEST REASON FOR EXAM: Female, 68 years old. Left mid rib pain following a fall. TECHNIQUE - RIBS: 3 views of the ribs. TECHNIQUE - CHEST: Single PA view of the [address]. COMPARISON: None. FINDINGS - RIBS : Normal visualized ribs without a demonstrated fracture. FINDINGS - CHEST: The lungs are clear and expanded. Calcifie d old granulomatous disease. There is no demonstrated pleural abnormality. Normal size heart. Normal mediastinum and [place]. Normal visualized pulmonary arteries. Normal visualized aortic arch and yusef cending thoracic aorta. Normal visualized thoracic spine. Normal visualized ribs, clavicles, and shoulders. There is no demonstrated abnormality of the visualized soft tissue structures of the up per abdomen. IMPRESSION: RIBS: Normal x-ray examination of the bilateral ribs. CHEST: Normal x-ray examination of the chest. Electronically Signed: Zbigniew Carroll M.D. at 15:39 EST , Service support [phone], CC: Kylie Haywood DO Accounts Receivable Coordinator: Signed 15-Jul-2013 Dexa Bone Density Study (HP) Result: Comments: See Note; NOTES: [facility] Imaging Services [address] [place] [address] Bone Density Report MR#: [id number] Acct: [id number] Name: BRANDIE KUO Rep #: [id number] : 1945 F 68 From: Zbigniew Carroll MD PCP: Status: REG CLI Study: Dexa Bone Density Study (HP) Date of Exam: 07/15/13 Exam# [id number] Ordering Dr: Kylie Haywood DO STUDY: DUAL E NERGY X-RAY ABSORPTIOMETRY / DXA REASON FOR EXAM: Female, 68 years old. The patient is postmenopausal. TECHNIQUE: Bone Mineral Density (BMD) measurements of lumbar spine and bilateral hips were obt ained. COMPARISON: Comparison is made with prior study dated July 13, 2011. FINDINGS: Lumbar Spine (L1-L4): g/cm2 (1.020) / T-score (-1.3) / Z-score (0.3) Findings are suggestive of osteopenia with a moderate fracture risk. Left Femur Total: g/cm2 (0.997) / T-score (-0.1) / Z-score (1.4) Left Femoral Neck: g/cm2 (0.905) / T-score (-1.0) / Z-score (0.7 ) Right Femur Total: g/cm2 (0.926) / T-score (-0.7) / Z-score (0.8) Right Femoral Neck: g/cm2 (0.838) / T-score (-1.4) / Z-score (0.3) The T-Scores on the most recent prior examination were: Lumba r Spine (L1-L4): There has been worsening of bone density since the previous examination. Left Femur Total: which represents a worsening of 0.2%. Right Femur Total: which represents a worsening of 3 .8%. IMPRESSION: The patient is considered osteopenic as outlined below according to World Matt Organization (WHO) criteria with a moderate fracture risk. There has been worsening of bone density since the previous examination. Reference Information: The T-score is the number of standard deviations above or below the standard which is normal for young adults at their peak bone mineral density. The World Health Organization (WHO) interprets the T-scores as follows: Above -1 Normal bone density Between -1 and -2. 5 Osteopenia Equal to / or below -2.5 Osteoporosis As a practical clinical guideline, osteopenia may be graded as follows: Mild -1 through -1.5 Moderate -1.6 through -2.0 Severe -2.1 through -2.4 The Z-score is the number of standard deviations above or below age-matched controls. A Z-score of less than -1.5 would be considered abnormal. References: 1. NIH Osteoporosis and Related Bone Dis eases http://www.osteo.org 2. International Society for Clinical Densitometry http://www.iscd.org 3. National Osteoporosis Foundation http://www.nof.org Signed: Zbigniew Carroll M.D. July 042012 at 8:59:54 AM EST [phone] Electronically Signed GP/GP If you are the referring physician and would like to consult with the radiologist who provided this interpretation, please conta mikhail Carroll M.D. at [phone]. If this radiologist is unavailable, you will be directed to another radiologist to assist. If you are a patient with a question regarding this report, pl ease contact your referring physician directly. Professional Interpretation Provided By: [employer], Phone , These documents contain legally protected and confidenti al health information intended only for the use of the individual or entity named above. If you are not the intended recipient, you are hereby notified that any disclosure, copying, distribution, or other use of these documents is strictly prohibited. If you have received this information in error, please notify the sender immediately and arrange for the return or destruction of these documents. CC: Kylie Haywood DO Accounts Receivable Coordinator: Signed Immunization Name Dates Details Influenza (3 years and up) on: 25-Jun-2007 Comments: given in left deltoid, 0.5cc, lot#[id number], exp.03.02.08 WF Influenza (3 years and up) on: 23-Jun-2008 Pneumococcal (2 years and up) on: 25-Jun-2007 Comments: given in right deltoid, 0.5cc, lot#[id number], exp.07.14.08 WF Family History Unknown Family Member Name Dates Details Father Comments: at 92 Status: Active Mother Comments: CVA Status: Active Sister 1 Comments: OA all 6 sisters Status: Active Social History Name Dates Details Alcohol Use Comments: Occasional alcohol use Status: Active Non Smoker/No Tobacco Use Comments: 04/19/11 Status: Active Tobacco use: Former smoker. Comments: 10/10/11 Status: Active Smoking Status Name Dates Details Former smoker Vital Signs Date Test Result Details [id number] Comments: Dr. Quick and had a glaucoma test doneHearing wnl Pulse 89 /min Comments: Pattern: Regular Respiration Rate 18 /min Comments: Pattern: Unlabored O2 SAT 90 % Comments: Room air BP Systolic 128 mm[Hg] Comments: Patient Position: Sitting; Cuff Location: Left Arm; Cuff Size: Standard BP Diastolic 78 mm[Hg] Comments: Patient Position: Sitting; Cuff Location: Left Arm; Cuff Size: Standard Weight 149.5 lb Height 61 in Body Mass Index Calculated 28.25 kg/m2 Body Surface Area Calculated 1.67 m2 :16 Temperature 97.6 f Comments: Method: Temporal Pulse 72 /min Comments: Pattern: Regular Respiration Rate 16 /min Comments: Pattern: Unlabored O2 SAT 97 % Comments: Room air BP Systolic 140 mm[Hg] Comments: Patient Position: Sitting; Cuff Location: Left Arm; Cuff Size: Standard BP Diastolic 72 mm[Hg] Comments: Patient Position: Sitting; Cuff Location: Left Arm; Cuff Size: Standard Weight 149 lb Height 61 in Body Mass Index Calculated 28.15 kg/m2 Body Surface Area Calculated 1.67 m2 :12 Pulse 82 /min Comments: Pattern: Regular Respiration Rate 18 /min Comments: Pattern: Unlabored O2 SAT 95 % Comments: Room air BP Systolic 120 mm[Hg] Comments: Patient Position: Sitting; Cuff Location: Left Arm; Cuff Size: Standard BP Diastolic 68 mm[Hg] Comments: Patient Position: Sitting; Cuff Location: Left Arm; Cuff Size: Standard Weight 149.25 lb Height 61 in Body Mass Index Calculated 28.2 kg/m2 Body Surface Area Calculated 1.67 m2 :44 Temperature 97.2 f Comments: Method: Temporal Pulse 84 /min Comments: Pattern: Regular Respiration Rate 16 /min Comments: Pattern: Unlabored O2 SAT 95 % Comments: Room air BP Systolic 128 mm[Hg] Comments: Patient Position: Sitting; Cuff Location: Left Arm; Cuff Size: Standard BP Diastolic 80 mm[Hg] Comments: Patient Position: Sitting; Cuff Location: Left Arm; Cuff Size: Standard Weight 148 lb Height 61 in Body Mass Index Calculated 27.96 kg/m2 Body Surface Area Calculated 1.66 m2 :13 Pulse 81 /min Comments: Pattern: Regular Respiration Rate 18 /min Comments: Pattern: Unlabored O2 SAT 95 % Comments: Room air BP Systolic 148 mm[Hg] Comments: Patient Position: Sitting; Cuff Location: Left Arm; Cuff Size: Standard BP Diastolic 70 mm[Hg] Comments: Patient Position: Sitting; Cuff Location: Left Arm; Cuff Size: Standard Weight 143.5 lb Height 61 in Body Mass Index Calculated 27.11 kg/m2 Body Surface Area Calculated 1.64 m2 :24 Pulse 62 /min Comments: Pattern: Regular Respiration Rate 18 /min Comments: Pattern: Unlabored O2 SAT 92 % Comments: Room air BP Systolic 122 mm[Hg] Comments: Patient Position: Sitting; Cuff Location: Left Arm; Cuff Size: Standard BP Diastolic 60 mm[Hg] Comments: Patient Position: Sitting; Cuff Location: Left Arm; Cuff Size: Standard Weight 143.5 lb Height 61 in Body Mass Index Calculated 27.11 kg/m2 Body Surface Area Calculated 1.64 m2 :21 Pulse 84 /min Comments: Pattern: Regular Respiration Rate 18 /min Comments: Pattern: Unlabored O2 SAT 97 % Comments: Room air BP Systolic 120 mm[Hg] Comments: Patient Position: Sitting; Cuff Location: Left Arm; Cuff Size: Large BP Diastolic 62 mm[Hg] Comments: Patient Position: Sitting; Cuff Location: Left Arm; Cuff Size: Large Weight 142 lb Height 61 in Body Mass Index Calculated 26.83 kg/m2 Body Surface Area Calculated 1.63 m2 :06 Pulse 80 /min Comments: Pattern: Regular Respiration Rate 18 /min Comments: Pattern: Unlabored O2 SAT 93 % Comments: Room air BP Systolic 128 mm[Hg] Comments: Patient Position: Sitting; Cuff Location: Left Arm; Cuff Size: Large BP Diastolic 76 mm[Hg] Comments: Patient Position: Sitting; Cuff Location: Left Arm; Cuff Size: Large Weight 142 lb Height 61 in Body Mass Index Calculated 26.83 kg/m2 Body Surface Area Calculated 1.63 m2 :32 Pulse 81 /min Comments: Pattern: Regular Respiration Rate 18 /min Comments: Pattern: Unlabored O2 SAT 97 % Comments: Room air BP Systolic 140 mm[Hg] Comments: Patient Position: Sitting; Cuff Location: Left Arm; Cuff Size: Standard BP Diastolic 80 mm[Hg] Comments: Patient Position: Sitting; Cuff Location: Left Arm; Cuff Size: Standard Weight 142 lb Height 61 in Body Mass Index Calculated 26.83 kg/m2 Body Surface Area Calculated 1.63 m2 :34 Pulse 87 /min Comments: Pattern: Regular Respiration Rate 18 /min Comments: Pattern: Unlabored O2 SAT 94 % Comments: Room air BP Systolic 140 mm[Hg] Comments: Patient Position: Sitting; Cuff Location: Left Arm; Cuff Size: Large BP Diastolic 78 mm[Hg] Comments: Patient Position: Sitting; Cuff Location: Left Arm; Cuff Size: Large Weight 144.125 lb Height 61 in Body Mass Index Calculated 27.23 kg/m2 Body Surface Area Calculated 1.64 m2 :33 Comments: hearing wnlDr. Fenzal and had aglaucoma test done Pulse 94 /min Comments: Pattern: Regular Respiration Rate 18 /min Comments: Pattern: Unlabored O2 SAT 94 % Comments: Room air BP Systolic 142 mm[Hg] Comments: Patient Position: Sitting; Cuff Location: Left Arm; Cuff Size: Large BP Diastolic 64 mm[Hg] Comments: Patient Position: Sitting; Cuff Location: Left Arm; Cuff Size: Large Weight 146.5 lb Height 61 in Body Mass Index Calculated 27.68 kg/m2 Body Surface Area Calculated 1.66 m2 :30 Pulse 64 /min Comments: Pattern: Regular Respiration Rate 18 /min Comments: Pattern: Unlabored O2 SAT 96 % Comments: Room air BP Systolic 128 mm[Hg] Comments: Patient Position: Sitting; Cuff Location: Left Arm; Cuff Size: Standard BP Diastolic 62 mm[Hg] Comments: Patient Position: Sitting; Cuff Location: Left Arm; Cuff Size: Standard Weight 147 lb Height 61 in Body Mass Index Calculated 27.78 kg/m2 Body Surface Area Calculated 1.66 m2 :16 Temperature 97.6 f Pulse 82 /min Comments: Pattern: Regular Respiration Rate 16 /min Comments: Pattern: Unlabored BP Systolic 124 mm[Hg] Comments: Patient Position: Sitting; Cuff Location: Left Arm; Cuff Size: Standard BP Diastolic 80 mm[Hg] Comments: Patient Position: Sitting; Cuff Location: Left Arm; Cuff Size: Standard Weight 146 lb Height 61 in Body Mass Index Calculated 27.59 kg/m2 Body Surface Area Calculated 1.65 m2 :21 Temperature 97.7 f Pulse 90 /min Comments: Pattern: Regular Respiration Rate 17 /min Comments: Pattern: Unlabored O2 SAT 95 % Comments: Room air BP Systolic 118 mm[Hg] Comments: Patient Position: Sitting; Cuff Location: Left Arm; Cuff Size: Standard BP Diastolic 72 mm[Hg] Comments: Patient Position: Sitting; Cuff Location: Left Arm; Cuff Size: Standard Weight 142 lb Height 61 in Body Mass Index Calculated 26.83 kg/m2 Body Surface Area Calculated 1.63 m2 :52 Temperature 97 f Comments: Method: Temporal Pulse 82 /min Comments: Pattern: Regular Respiration Rate 15 /min Comments: Pattern: Unlabored O2 SAT 96 % Comments: Room air BP Systolic 124 mm[Hg] Comments: Patient Position: Sitting; Cuff Location: Left Arm; Cuff Size: Standard BP Diastolic 68 mm[Hg] Comments: Patient Position: Sitting; Cuff Location: Left Arm; Cuff Size: Standard Weight 142 lb Height 61 in Body Mass Index Calculated 26.83 kg/m2 Body Surface Area Calculated 1.63 m2 :15 Temperature 96.7 f Comments: Method: Temporal Pulse 78 /min Comments: Pattern: Regular Respiration Rate 16 /min Comments: Pattern: Unlabored O2 SAT 95 % Comments: Room air BP Systolic 132 mm[Hg] Comments: Patient Position: Sitting; Cuff Location: Left Arm; Cuff Size: Standard BP Diastolic 72 mm[Hg] Comments: Patient Position: Sitting; Cuff Location: Left Arm; Cuff Size: Standard Weight 142 lb Height 61 in Body Mass Index Calculated 26.83 kg/m2 Body Surface Area Calculated 1.63 m2 :26 Temperature 97.8 f Comments: Method: Temporal Pulse 82 /min Comments: Pattern: Regular Respiration Rate 16 /min Comments: Pattern: Unlabored BP Systolic 112 mm[Hg] Comments: Patient Position: Sitting; Cuff Location: Left Arm; Cuff Size: Standard BP Diastolic 70 mm[Hg] Comments: Patient Position: Sitting; Cuff Location: Left Arm; Cuff Size: Standard Weight 135 lb Height 61 in Body Mass Index Calculated 25.51 kg/m2 Body Surface Area Calculated 1.6 m2 :13 Temperature 96.9 f Comments: Method: Oral Pulse 76 /min Comments: Pattern: Regular Respiration Rate 16 /min Comments: Pattern: Unlabored BP Systolic 136 mm[Hg] Comments: Patient Position: Sitting; Cuff Location: Left Arm; Cuff Size: Standard BP Diastolic 72 mm[Hg] Comments: Patient Position: Sitting; Cuff Location: Left Arm; Cuff Size: Standard Weight 134 lb Height 61 in Body Mass Index Calculated 25.32 kg/m2 Body Surface Area Calculated 1.59 m2 :43 Temperature 98.4 f Comments: Method: Oral Pulse 80 /min Comments: Pattern: Regular Respiration Rate 16 /min Comments: Pattern: Unlabored BP Systolic 100 mm[Hg] Comments: Patient Position: Sitting; Cuff Location: Left Arm; Cuff Size: Standard BP Diastolic 52 mm[Hg] Comments: Patient Position: Sitting; Cuff Location: Left Arm; Cuff Size: Standard Weight 134 lb Height 61 in Body Mass Index Calculated 25.32 kg/m2 Body Surface Area Calculated 1.59 m2 :14 Temperature 98.2 f Pulse 84 /min Comments: Pattern: Regular Respiration Rate 16 /min Comments: Pattern: Unlabored BP Systolic 110 mm[Hg] Comments: Patient Position: Sitting; Cuff Location: Left Arm; Cuff Size: Standard BP Diastolic 54 mm[Hg] Comments: Patient Position: Sitting; Cuff Location: Left Arm; Cuff Size: Standard Weight 129 lb Height 61 in Body Mass Index Calculated 24.37 kg/m2 Body Surface Area Calculated 1.57 m2 :09 Temperature 97.8 f Comments: Method: Oral Pulse 86 /min Comments: Pattern: Regular Respiration Rate 17 /min O2 SAT 96 % Comments: Room air BP Systolic 120 mm[Hg] Comments: Patient Position: Sitting; Cuff Location: Left Arm; Cuff Size: Standard BP Diastolic 72 mm[Hg] Comments: Patient Position: Sitting; Cuff Location: Left Arm; Cuff Size: Standard Weight 130.3125 lb Height 61 in Body Mass Index Calculated 24.62 kg/m2 Body Surface Area Calculated 1.57 m2 :06 Temperature 98.8 f Comments: Method: Oral Pulse 84 /min Comments: Pattern: Regular Respiration Rate 17 /min O2 SAT 98 % Comments: Room air BP Systolic 142 mm[Hg] Comments: Patient Position: Sitting; Cuff Location: Left Arm; Cuff Size: Standard BP Diastolic 80 mm[Hg] Comments: Patient Position: Sitting; Cuff Location: Left Arm; Cuff Size: Standard Weight 136.125 lb Height 61 in Body Mass Index Calculated 25.72 kg/m2 Body Surface Area Calculated 1.6 m2 :06 BP Systolic 118 mm[Hg] Comments: Patient Position: Sitting; Cuff Location: Left Arm; Cuff Size: Standard BP Diastolic 72 mm[Hg] Comments: Patient Position: Sitting; Cuff Location: Left Arm; Cuff Size: Standard :22 Temperature 97.6 f Comments: Method: Oral Pulse 83 /min Comments: Pattern: Regular Respiration Rate 18 /min Comments: Pattern: Unlabored O2 SAT 97 % Comments: Room air BP Systolic 140 mm[Hg] Comments: Patient Position: Sitting; Cuff Location: Left Arm; Cuff Size: Standard BP Diastolic 72 mm[Hg] Comments: Patient Position: Sitting; Cuff Location: Left Arm; Cuff Size: Standard Weight 132 lb Height 61.5 in Body Mass Index Calculated 24.54 kg/m2 Body Surface Area Calculated 1.59 m2 :58 Temperature 98.4 f Pulse 86 /min Comments: Pattern: Regular Respiration Rate 16 /min Comments: Pattern: Unlabored BP Systolic 122 mm[Hg] Comments: Patient Position: Sitting; Cuff Location: Left Arm; Cuff Size: Standard BP Diastolic 64 mm[Hg] Comments: Patient Position: Sitting; Cuff Location: Left Arm; Cuff Size: Standard Weight 130 lb Height 61.5 in Body Mass Index Calculated 24.17 kg/m2 Body Surface Area Calculated 1.58 m2 :46 Temperature 97.4 f Comments: Method: Oral Pulse 60 /min Comments: Pattern: Regular Respiration Rate 15 /min O2 SAT 96 % Comments: Room air BP Systolic 126 mm[Hg] Comments: Patient Position: Sitting; Cuff Location: Left Arm; Cuff Size: Standard BP Diastolic 70 mm[Hg] Comments: Patient Position: Sitting; Cuff Location: Left Arm; Cuff Size: Standard Weight 130 lb Height 61.5 in Body Mass Index Calculated 24.17 kg/m2 Body Surface Area Calculated 1.58 m2 :36 Temperature 98.4 f Pulse 110 /min Comments: Pattern: Regular Respiration Rate 16 /min Comments: Pattern: Unlabored BP Systolic 112 mm[Hg] Comments: Patient Position: Sitting; Cuff Location: Left Arm; Cuff Size: Standard BP Diastolic 62 mm[Hg] Comments: Patient Position: Sitting; Cuff Location: Left Arm; Cuff Size: Standard Weight 130 lb Height 61.5 in Body Mass Index Calculated 24.17 kg/m2 Body Surface Area Calculated 1.58 m2 :39 Temperature 98 f Pulse 76 /min Comments: Pattern: Regular Respiration Rate 16 /min Comments: Pattern: Unlabored BP Systolic 102 mm[Hg] Comments: Patient Position: Sitting; Cuff Location: Left Arm; Cuff Size: Large BP Diastolic 64 mm[Hg] Comments: Patient Position: Sitting; Cuff Location: Left Arm; Cuff Size: Large Weight 135 lb Height 61.5 in Body Mass Index Calculated 25.09 kg/m2 Body Surface Area Calculated 1.61 m2 :54 Temperature 97.8 f Pulse 84 /min Comments: Pattern: Regular Respiration Rate 16 /min Comments: Pattern: Unlabored BP Systolic 116 mm[Hg] Comments: Patient Position: Sitting; Cuff Location: Left Arm; Cuff Size: Standard BP Diastolic 60 mm[Hg] Comments: Patient Position: Sitting; Cuff Location: Left Arm; Cuff Size: Standard Weight 141 lb Height 61.5 in Body Mass Index Calculated 26.21 kg/m2 Body Surface Area Calculated 1.64 m2 :30 Temperature 97.9 f Pulse 76 /min Comments: Pattern: Regular Respiration Rate 18 /min Comments: Pattern: Unlabored BP Systolic 110 mm[Hg] Comments: Patient Position: Sitting; Cuff Location: Left Arm; Cuff Size: Standard BP Diastolic 66 mm[Hg] Comments: Patient Position: Sitting; Cuff Location: Left Arm; Cuff Size: Standard Weight 140 lb Height 61.5 in Body Mass Index Calculated 26.02 kg/m2 Body Surface Area Calculated 1.63 m2 :03 Pulse 81 /min Comments: Pattern: Regular Respiration Rate 16 /min Comments: Pattern: Unlabored O2 SAT 98 % Comments: Room air BP Systolic 122 mm[Hg] Comments: Patient Position: Sitting; Cuff Location: Left Arm; Cuff Size: Standard BP Diastolic 72 mm[Hg] Comments: Patient Position: Sitting; Cuff Location: Left Arm; Cuff Size: Standard Weight 141 lb Height 61.5 in Body Mass Index Calculated 26.21 kg/m2 Body Surface Area Calculated 1.64 m2 :51 Temperature 99.1 f Comments: Method: Oral Pulse 99 /min Comments: Pattern: Regular O2 SAT 97 % Comments: Room air BP Systolic 140 mm[Hg] Comments: Patient Position: Sitting; Cuff Location: Left Arm; Cuff Size: Standard BP Diastolic 72 mm[Hg] Comments: Patient Position: Sitting; Cuff Location: Left Arm; Cuff Size: Standard Weight 141 lb Height 61.5 in Body Mass Index Calculated 26.21 kg/m2 Body Surface Area Calculated 1.64 m2 :11 Temperature 97.9 f Pulse 80 /min Comments: Pattern: Regular Respiration Rate 16 /min Comments: Pattern: Unlabored BP Systolic 114 mm[Hg] Comments: Patient Position: Sitting; Cuff Location: Left Arm; Cuff Size: Standard BP Diastolic 62 mm[Hg] Comments: Patient Position: Sitting; Cuff Location: Left Arm; Cuff Size: Standard Weight 137 lb Height 61.5 in Body Mass Index Calculated 25.47 kg/m2 Body Surface Area Calculated 1.62 m2 :32 Temperature 97.9 f Pulse 76 /min Comments: Pattern: Regular Respiration Rate 18 /min Comments: Pattern: Unlabored BP Systolic 126 mm[Hg] Comments: Patient Position: Sitting; Cuff Location: Left Arm; Cuff Size: Large BP Diastolic 68 mm[Hg] Comments: Patient Position: Sitting; Cuff Location: Left Arm; Cuff Size: Large Weight 133 lb Height 61.5 in Body Mass Index Calculated 24.72 kg/m2 Body Surface Area Calculated 1.6 m2 :57 Temperature 97.3 f Pulse 72 /min Comments: Pattern: Regular Respiration Rate 16 /min Comments: Pattern: Unlabored BP Systolic 122 mm[Hg] Comments: Patient Position: Sitting; Cuff Location: Left Arm; Cuff Size: Large BP Diastolic 62 mm[Hg] Comments: Patient Position: Sitting; Cuff Location: Left Arm; Cuff Size: Large Weight 136 lb Height 61.5 in Body Mass Index Calculated 25.28 kg/m2 Body Surface Area Calculated 1.61 m2 :40 Temperature 97.8 f Pulse 72 /min Comments: Pattern: Regular Respiration Rate 16 /min Comments: Pattern: Unlabored BP Systolic 110 mm[Hg] Comments: Patient Position: Sitting; Cuff Location: Left Arm; Cuff Size: Large BP Diastolic 62 mm[Hg] Comments: Patient Position: Sitting; Cuff Location: Left Arm; Cuff Size: Large Weight 137 lb Height 61.5 in Body Mass Index Calculated 25.47 kg/m2 Body Surface Area Calculated 1.62 m2 :08 Temperature 97.6 f Pulse 76 /min Comments: Pattern: Regular Respiration Rate 16 /min Comments: Pattern: Unlabored BP Systolic 100 mm[Hg] Comments: Patient Position: Sitting; Cuff Location: Left Arm; Cuff Size: Large BP Diastolic 62 mm[Hg] Comments: Patient Position: Sitting; Cuff Location: Left Arm; Cuff Size: Large Weight 143 lb Height 61.5 in Body Mass Index Calculated 26.58 kg/m2 Body Surface Area Calculated 1.65 m2 :21 Temperature 98.4 f Comments: Method: Oral Pulse 80 /min Comments: Pattern: Regular Respiration Rate 14 /min Comments: Pattern: Unlabored BP Systolic 120 mm[Hg] Comments: Patient Position: Sitting; Cuff Location: Left Arm; Cuff Size: Standard BP Diastolic 72 mm[Hg] Comments: Patient Position: Sitting; Cuff Location: Left Arm; Cuff Size: Standard Weight 143 lb Height 61.5 in Body Mass Index Calculated 26.58 kg/m2 Body Surface Area Calculated 1.65 m2 :28 Temperature 97.3 f Comments: Method: Oral Pulse 72 /min Comments: Pattern: Regular Respiration Rate 18 /min Comments: Pattern: Unlabored BP Systolic 118 mm[Hg] Comments: Patient Position: Sitting; Cuff Location: Left Arm; Cuff Size: Large BP Diastolic 62 mm[Hg] Comments: Patient Position: Sitting; Cuff Location: Left Arm; Cuff Size: Large Weight 144 lb Height 61.5 in Body Mass Index Calculated 26.77 kg/m2 Body Surface Area Calculated 1.65 m2 :33 Temperature 99.5 f Comments: Method: Oral Pulse 80 /min Comments: Pattern: Regular Respiration Rate 20 /min Comments: Pattern: Unlabored BP Systolic 116 mm[Hg] Comments: Patient Position: Sitting; Cuff Location: Left Arm; Cuff Size: Standard BP Diastolic 56 mm[Hg] Comments: Patient Position: Sitting; Cuff Location: Left Arm; Cuff Size: Standard Weight 143 lb Height 61.5 in Body Mass Index Calculated 26.58 kg/m2 Body Surface Area Calculated 1.65 m2 :55 Temperature 97.8 f Pulse 76 /min Comments: Pattern: Regular Respiration Rate 16 /min Comments: Pattern: Unlabored BP Systolic 128 mm[Hg] Comments: Patient Position: Sitting; Cuff Location: Left Arm; Cuff Size: Large BP Diastolic 70 mm[Hg] Comments: Patient Position: Sitting; Cuff Location: Left Arm; Cuff Size: Large Weight 148 lb Height 61.5 in Body Mass Index Calculated 27.51 kg/m2 Body Surface Area Calculated 1.67 m2 :26 Temperature 97.6 f Pulse 86 /min Comments: Pattern: Regular Respiration Rate 16 /min Comments: Pattern: Unlabored BP Systolic 110 mm[Hg] Comments: Patient Position: Sitting; Cuff Location: Left Arm; Cuff Size: Large BP Diastolic 60 mm[Hg] Comments: Patient Position: Sitting; Cuff Location: Left Arm; Cuff Size: Large Weight 141 lb Height 61.5 in Body Mass Index Calculated 26.21 kg/m2 Body Surface Area Calculated 1.64 m2 :36 Temperature 96.9 f Comments: Method: Oral Pulse 76 /min Comments: Pattern: Regular Respiration Rate 16 /min Comments: Pattern: Unlabored BP Systolic 104 mm[Hg] Comments: Patient Position: Sitting; Cuff Location: Left Arm; Cuff Size: Standard BP Diastolic 58 mm[Hg] Comments: Patient Position: Sitting; Cuff Location: Left Arm; Cuff Size: Standard Weight 140 lb Height 61.5 in Body Mass Index Calculated 26.02 kg/m2 Body Surface Area Calculated 1.63 m2 :41 Temperature 98.9 f Pulse 92 /min Comments: Pattern: Regular Respiration Rate 16 /min Comments: Pattern: Unlabored BP Systolic 120 mm[Hg] Comments: Patient Position: Sitting; Cuff Location: Left Arm; Cuff Size: Large BP Diastolic 60 mm[Hg] Comments: Patient Position: Sitting; Cuff Location: Left Arm; Cuff Size: Large Weight 139 lb Height 61.5 in Body Mass Index Calculated 25.84 kg/m2 Body Surface Area Calculated 1.63 m2 :25 Temperature 97.9 f Pulse 84 /min Comments: Pattern: Regular Respiration Rate 16 /min Comments: Pattern: Unlabored BP Systolic 116 mm[Hg] Comments: Patient Position: Sitting; Cuff Location: Left Arm; Cuff Size: Standard BP Diastolic 56 mm[Hg] Comments: Patient Position: Sitting; Cuff Location: Left Arm; Cuff Size: Standard Weight 139 lb Height 61.5 in Body Mass Index Calculated 25.84 kg/m2 Body Surface Area Calculated 1.63 m2 :06 Temperature 97.4 f Pulse 72 /min Comments: Pattern: Regular Respiration Rate 18 /min Comments: Pattern: Unlabored BP Systolic 122 mm[Hg] Comments: Patient Position: Sitting; Cuff Location: Left Arm; Cuff Size: Standard BP Diastolic 62 mm[Hg] Comments: Patient Position: Sitting; Cuff Location: Left Arm; Cuff Size: Standard Weight 140 lb :21 Pulse 92 /min Comments: Pattern: Regular Respiration Rate 16 /min Comments: Pattern: Unlabored BP Systolic 134 mm[Hg] Comments: Patient Position: Sitting; Cuff Location: Left Arm; Cuff Size: Standard BP Diastolic 68 mm[Hg] Comments: Patient Position: Sitting; Cuff Location: Left Arm; Cuff Size: Standard :15 Temperature 97.7 f Pulse 80 /min Comments: Pattern: Regular Respiration Rate 18 /min Comments: Pattern: Unlabored BP Systolic 110 mm[Hg] Comments: Patient Position: Sitting; Cuff Location: Left Arm; Cuff Size: Large BP Diastolic 60 mm[Hg] Comments: Patient Position: Sitting; Cuff Location: Left Arm; Cuff Size: Large Weight 138 lb :15 Temperature 97.1 f Pulse 86 /min Comments: Pattern: Regular Respiration Rate 18 /min Comments: Pattern: Unlabored BP Systolic 120 mm[Hg] Comments: Patient Position: Sitting; Cuff Location: Left Arm; Cuff Size: Large BP Diastolic 64 mm[Hg] Comments: Patient Position: Sitting; Cuff Location: Left Arm; Cuff Size: Large Weight 140 lb :03 Temperature 97.3 f Comments: Method: Undefined Pulse 84 /min Comments: Pattern: Regular Respiration Rate 18 /min Comments: Pattern: Undefined BP Systolic 128 mm[Hg] Comments: Patient Position: Sitting; Cuff Location: Left Arm; Cuff Size: Standard BP Diastolic 62 mm[Hg] Comments: Patient Position: Sitting; Cuff Location: Left Arm; Cuff Size: Standard Weight 139 lb Height 0 in Head Circumference 0.00 cm :25 Temperature 97.4 f Comments: Method: Undefined Pulse 80 /min Comments: Pattern: Regular Respiration Rate 16 /min Comments: Pattern: Undefined BP Systolic 130 mm[Hg] Comments: Patient Position: Sitting; Cuff Location: Right Arm; Cuff Size: Standard BP Diastolic 70 mm[Hg] Comments: Patient Position: Sitting; Cuff Location: Right Arm; Cuff Size: Standard Weight 133 lb Height 0 in Head Circumference 0.00 cm :39 Temperature 96.3 f Comments: Method: Undefined Pulse 70 /min Comments: Pattern: Regular Respiration Rate 16 /min Comments: Pattern: Undefined BP Systolic 126 mm[Hg] Comments: Patient Position: Sitting; Cuff Location: Right Arm; Cuff Size: Standard BP Diastolic 70 mm[Hg] Comments: Patient Position: Sitting; Cuff Location: Right Arm; Cuff Size: Standard Weight 128 lb Height 62 in Body Mass Index Calculated 23.41 kg/m2 Body Surface Area Calculated 1.58 m2 Head Circumference 0.00 cm :29 Temperature 97.5 f Comments: Method: Oral Pulse 75 /min Comments: Pattern: Regular Respiration Rate 16 /min Comments: Pattern: Unlabored BP Systolic 118 mm[Hg] Comments: Patient Position: Sitting; Cuff Location: Left Arm; Cuff Size: Standard BP Diastolic 72 mm[Hg] Comments: Patient Position: Sitting; Cuff Location: Left Arm; Cuff Size: Standard Weight 130.5625 lb Height 62 in Body Mass Index Calculated 23.88 kg/m2 Body Surface Area Calculated 1.59 m2 Head Circumference 0.00 cm :17 Temperature 96.8 f Comments: Method: Undefined Pulse 96 /min Comments: Pattern: Regular Respiration Rate 16 /min Comments: Pattern: Undefined BP Systolic 116 mm[Hg] Comments: Patient Position: Sitting; Cuff Location: Right Arm; Cuff Size: Large BP Diastolic 60 mm[Hg] Comments: Patient Position: Sitting; Cuff Location: Right Arm; Cuff Size: Large Weight 0 lb Height 0 in Head Circumference 0.00 cm :06 Temperature 98.5 f Comments: Method: Undefined Pulse 72 /min Comments: Pattern: Regular Respiration Rate 16 /min Comments: Pattern: Undefined BP Systolic 132 mm[Hg] Comments: Patient Position: Sitting; Cuff Location: Right Arm; Cuff Size: Large BP Diastolic 68 mm[Hg] Comments: Patient Position: Sitting; Cuff Location: Right Arm; Cuff Size: Large Weight 133 lb Height 0 in Head Circumference 0.00 cm :20 Temperature 97 f Comments: Method: Undefined Pulse 84 /min Comments: Pattern: Regular Respiration Rate 16 /min Comments: Pattern: Undefined BP Systolic 120 mm[Hg] Comments: Patient Position: Sitting; Cuff Location: Right Arm; Cuff Size: Standard BP Diastolic 70 mm[Hg] Comments: Patient Position: Sitting; Cuff Location: Right Arm; Cuff Size: Standard Weight 132 lb Height 0 in Head Circumference 0.00 cm :46 Temperature 97.9 f Comments: Method: Undefined Pulse 76 /min Comments: Pattern: Regular Respiration Rate 16 /min Comments: Pattern: Undefined BP Systolic 108 mm[Hg] Comments: Patient Position: Sitting; Cuff Location: Right Arm; Cuff Size: Standard BP Diastolic 54 mm[Hg] Comments: Patient Position: Sitting; Cuff Location: Right Arm; Cuff Size: Standard Weight 131 lb Height 0 in Head Circumference 0.00 cm :28 Temperature 97.9 f Comments: Method: Undefined Pulse 88 /min Comments: Pattern: Regular Respiration Rate 16 /min Comments: Pattern: Undefined BP Systolic 124 mm[Hg] Comments: Patient Position: Sitting; Cuff Location: Left Arm; Cuff Size: Large BP Diastolic 72 mm[Hg] Comments: Patient Position: Sitting; Cuff Location: Left Arm; Cuff Size: Large Weight 126 lb Height 61.75 in Body Mass Index Calculated 23.23 kg/m2 Body Surface Area Calculated 1.57 m2 Head Circumference 0.00 cm :29 Temperature 97 f Comments: Method: Oral Pulse 76 /min Comments: Pattern: Regular Respiration Rate 16 /min Comments: Pattern: Unlabored BP Systolic 138 mm[Hg] Comments: Patient Position: Sitting; Cuff Location: Left Arm; Cuff Size: Standard BP Diastolic 80 mm[Hg] Comments: Patient Position: Sitting; Cuff Location: Left Arm; Cuff Size: Standard Weight 120 lb Height 61.75 in Body Mass Index Calculated 22.13 kg/m2 Body Surface Area Calculated 1.53 m2 Head Circumference 0.00 cm :54 Temperature 98.1 f Comments: Method: Oral Pulse 80 /min Comments: Pattern: Regular Respiration Rate 16 /min Comments: Pattern: Unlabored BP Systolic 116 mm[Hg] Comments: Patient Position: Sitting; Cuff Location: Left Arm; Cuff Size: Standard BP Diastolic 68 mm[Hg] Comments: Patient Position: Sitting; Cuff Location: Left Arm; Cuff Size: Standard Weight 127 lb Height 61.75 in Body Mass Index Calculated 23.42 kg/m2 Body Surface Area Calculated 1.57 m2 Head Circumference 0.00 cm :02 Temperature 97.9 f Comments: Method: Oral Pulse 84 /min Comments: Pattern: Regular Respiration Rate 16 /min Comments: Pattern: Unlabored BP Systolic 102 mm[Hg] Comments: Patient Position: Sitting; Cuff Location: Right Arm; Cuff Size: Standard BP Diastolic 56 mm[Hg] Comments: Patient Position: Sitting; Cuff Location: Right Arm; Cuff Size: Standard Weight 133 lb Height 61.75 in Body Mass Index Calculated 24.52 kg/m2 Body Surface Area Calculated 1.6 m2 Head Circumference 0.00 cm :55 Temperature 98.2 f Comments: Method: Oral Pulse 72 /min Comments: Pattern: Regular Respiration Rate 16 /min Comments: Pattern: Unlabored BP Systolic 122 mm[Hg] Comments: Patient Position: Sitting; Cuff Location: Left Arm; Cuff Size: Standard BP Diastolic 70 mm[Hg] Comments: Patient Position: Sitting; Cuff Location: Left Arm; Cuff Size: Standard Weight 129 lb Height 61.75 in Body Mass Index Calculated 23.79 kg/m2 Body Surface Area Calculated 1.58 m2 Head Circumference 0.00 cm :09 Temperature 97.6 f Comments: Method: Oral Pulse 88 /min Comments: Pattern: Regular Respiration Rate 16 /min Comments: Pattern: Unlabored BP Systolic 118 mm[Hg] Comments: Patient Position: Sitting; Cuff Location: Right Arm; Cuff Size: Standard BP Diastolic 58 mm[Hg] Comments: Patient Position: Sitting; Cuff Location: Right Arm; Cuff Size: Standard Weight 127.5 lb Height 61.75 in Body Mass Index Calculated 23.51 kg/m2 Body Surface Area Calculated 1.57 m2 Head Circumference 0.00 cm :23 Temperature 97.7 f Comments: Method: Oral Pulse 72 /min Comments: Pattern: Regular Respiration Rate 16 /min Comments: Pattern: Unlabored BP Systolic 100 mm[Hg] Comments: Patient Position: Sitting; Cuff Location: Left Arm; Cuff Size: Standard BP Diastolic 62 mm[Hg] Comments: Patient Position: Sitting; Cuff Location: Left Arm; Cuff Size: Standard Weight 124.5 lb Height 0 in Head Circumference 0.00 cm :07 Temperature 98.1 f Comments: Method: Oral Pulse 80 /min Comments: Pattern: Regular Respiration Rate 16 /min Comments: Pattern: Unlabored BP Systolic 114 mm[Hg] Comments: Patient Position: Sitting; Cuff Location: Left Arm; Cuff Size: Standard BP Diastolic 60 mm[Hg] Comments: Patient Position: Sitting; Cuff Location: Left Arm; Cuff Size: Standard Weight 127.0625 lb Height 63 in Body Mass Index Calculated 22.51 kg/m2 Body Surface Area Calculated 1.59 m2 Head Circumference 0.00 cm :05 Temperature 97.8 f Comments: Method: Oral Pulse 76 /min Comments: Pattern: Regular Respiration Rate 16 /min Comments: Pattern: Unlabored BP Systolic 120 mm[Hg] Comments: Patient Position: Sitting; Cuff Location: Right Arm; Cuff Size: Undefined BP Diastolic 72 mm[Hg] Comments: Patient Position: Sitting; Cuff Location: Right Arm; Cuff Size: Undefined Weight 124 lb Height 63 in Body Mass Index Calculated 21.97 kg/m2 Body Surface Area Calculated 1.58 m2 Head Circumference 0.00 cm Results Date Description Value Details 5-Mzu-[id number]:27 CBC W/Diff, Automated Comments: [facility] [address] [place], [place], [id number] Absolute Lymph 0.97 {X10_3/ul} (Normal) Range: 0.83-4.51 Absolute Neut 3.8 {X10_3/uL} (Normal) Range: 2.0-7.7 IM GRAN % 0.000 % (Normal) Range: 0.0-0.9 Comments: IG% - Immature Granulocytes (promyelocytes, myelocytes andmetamyelocytes) > 1% indicates that a LEFT SHIFT is Present. BASO% 0.4 % (Normal) Range: 0-1 EO% 0.2 % (Normal) Range: 0-5 MONO% 8.4 % (Normal) Range: 0-10 LY% 18.5 % (Abnormal) Range: 19-41 NEUT% 72.5 % (Abnormal) Range: 47-70 MPV 8.9 fL (Normal) Range: 6.2-12.0 PLT 416 K/mm3 (Normal) Range: 150-450 RDW SD 52.1 fL (Abnormal) Range: 35.1-43.9 RDW CV 15.2 % (Abnormal) Range: 11.6-14.6 MCHC 31.9 {g/gl} (Abnormal) Range: 32-36 MCH 30.6 pg (Normal) Range: 27.0-32.0 MCV 96.0 fL (Normal) Range: 81-99 HCT 36.1 % (Abnormal) Range: 37-47 HGB 11.5 g/dL (Abnormal) Range: 12.0-15.0 RBC 3.76 {M/mm3} (Abnormal) Range: 4.2-5.4 WBC 5.2 K/mm3 (Normal) Range: 4.4-11.0 5-Uoe-130070:27 Comprehensive Metabolic Profil Comments: [facility] [address] [place], [place], [address] GAP 9 (Normal) Range: 5-15 CO2 28.0 mmol/L (Normal) Range: 21.0-32.0 CL 104 mmol/L (Normal) Range: 98-107 K 3.9 mmol/L (Normal) Range: 3.5-5.1 NA 141 mmol/L (Normal) Range: 136-145 T BILI 0.30 mg/dL (Normal) Range: 0.20-1.00 ALT 60 U/L (Abnormal) Range: 13-56 ALK P 104 U/L (Normal) Range: 45-117 AST 35 U/L (Normal) Range: 15-37 CA 9.7 mg/dL (Normal) Range: 8.5-10.1 A/G 1.0 {RATIO} (Normal) Range: 0.9-2.4 GLOB 3.8 g/dL (Normal) Range: 2.2-4.2 ALB 3.8 g/dL (Normal) Range: 3.2-5.0 T PROT 7.6 g/dL (Normal) Range: 6.4-8.2 BUN/CRE 11.5 {RATIO} Range: 10-20 (Normal) EST GFR - AA 73 mL/min (Normal) Comments: GFR Calc EST GFR 61 mL/min (Normal) Comments: Non- GFR Calc CREAT,SERUM 0.96 mg/dL (Normal) Range: 0.55-1.02 Comments: The validity of the calculated GFR AND GFRAA in patients over70 years has not been determined. Clinical correlation isessential. BUN 11 mg/dL (Normal) Range: 7-18 GLU 94 mg/dL (Normal) Range: 74-106 Comments: Please note revised GLUCOSE reference range pitdkcyya25/02/2018. 16-Qcf-10313:3 EGD (PICK SITE) See Note (Normal) Comments: [facility] [address] [place], [address] 0 Comments: Patient: BRANDIE KUO : 1945 (73/F) Acct Num: [id number] Phys: Pelon MONROE,Rylan Unit Num: [id number] Loc: EN Specimen: [id number] Received: 05/21/18942 Spec Type: EGD B IOPSY TISSUES TISSUES: A. Gastric mucous membrane B. Esophageal mucous membrane C. Esophageal mucous membrane COMMENT The results of immunohisto chemistry for Helicobacter pylori will be reported separately ([id number]). GROSS DESCRIPTION A - Received in fixative is one container labeled with the patient's name and designated gastric antru m. The specimen consists of one irregular fragment oflight burciaga soft tissue that measures 0.5 x 0.2 x 0.1 cm. The specimen is totallysubmitted in one cassette. B - Received in fixative is one contai ner labeled with the patient's name and designated biopsy distal esophagus. The specimen consists of multiple irregular fragments of light burciaga soft tissue that in aggregate measure 1 x 0.3 x0.1 cm. The specimen is totally submitted in one cassette. C - Received in fixative is one container labeled with the patient's name and designated mid esophageal biopsy. The specimen consists of one irre gular fragment of light burciaga soft tissue that measures 0.4 x 0.2 x 0.1 cm. The specimen is totally submitted in one cassette. / SJ:aga 05/21/18 TC:3 CPT: 63387 x3 HEADER OPERATION: Colonoscopy , EGD (MOD) with PH probe PRE-OP DIAGNOSIS: GERD, esophagitis, screening for intestinal cancer, shortness of breath TISSUE SUBMITTED: A Antral biopsy, B Distal esophageal biopsy, C Mid esoph ageal biopsy MICROSCOPIC DESCRIPTION Slides are reviewed. MICROSCOPIC DIAGNOSIS A. Gastric antrum, biopsy: Mild chronic gastritis. B. Distal esophagus, biopsy: Fragments of benign squamous mucosa. No evidence of inflammation. C. Mid esophagus, biopsy: Fragments of benign squamous mucosa. No evidence of inflammation. AM:aga 05/22/18 Signed ___ [facility] 05/22/18 <signature on file> :0 IMMUNOHISTOCHEMISTRY See Note (Normal) Comments: [facility] [address] [place], [place], [id number] 0 Comments: Patient: BRANDIE KUO : 1945 (73/F) Acct Num: [id number] Phys: Pelon MONROE,Rylan Unit Num: [id number] Loc: EN Specimen: [id number] Received: 05/22/181429 Spec Type: IMMUN O TISSUES TISSUES: A. Stomach, NOS SPECIMEN INFORMATION: Tissue Source: A Antral biopsy Clinical Info: GERD, esophagitis, screening Specimen Number: [id number] CPT code: 00239 METHODOLOGY: Deparaffinized sections of prefer/formalin- fixed tissue or PAP/DQ stained slides are incubated with monoclonal/polyclonal antibodies/oligonucleotide probes. Localizat ion is made via biotin free immunoperoxidase method. Appropriate controls are performed and reacted as expected. Results on target cell population are indicated in the following table: RESULTS: ANTIBODY / CLONE RESULT Block A H Pylori (polyclonal) negative These tests were developed and their performance characteristics determined by [facility]. They may not have been cleared or approved by the U.S. Food and Drug Administration. The FDA has determined that such clearance or approval is not necessary. INTERPRETATION: A. Antral biopsy: Negative for Helicobacter pylori organisms. AM:aga 05/24/18 PHYSICIAN AND INSTITUTION [address] [address] Sign ed [facility] 05/24/18 <signature on file> :18 C-REACTIVE PROTEIN (14993) Comments: PATIENT NOT FASTINGPERFORMED BY: JAYDE [facility] [address] Danni [facility] [id number] C-Reactive Protein, Quant 4.9 mg/L (Normal) Range: 0.0-4.9 :18 ESR-F (SED RATE ERYTHROCYTE - Comments: PATIENT NOT FASTINGPERFORMED BY: [facility] [facility] [id number] FEMALE) (75740) Sedimentation Rate-Westergren 24 mm/h (Normal) Range: 0-40 :18 LIPASE (20630) Comments: PATIENT NOT FASTINGPERFORMED BY: [facility] [facility] [id number] Lipase 76 U/L (Normal) Range: 14-85 :18 AMYLASE (14714) Comments: PATIENT NOT FASTINGPERFORMED BY: [facility] [facility] [id number] Amylase 111 U/L (Normal) Range: 31-124 :18 TSH (93711) Comments: PATIENT NOT FASTINGPERFORMED BY: [facility] [facility] [id number] TSH 3.730 {uIU/mL} (Normal) Range: 0.450-4.500 :18 T4, FREE (THYROXINE) (04882) Comments: PATIENT NOT FASTINGPERFORMED BY: [facility] [facility] [id number] T4,Free(Direct) 0.84 ng/dL (Normal) Range: 0.82-1.77 :18 T3, FREE (TRIDOTHYRONINE) (94656) Comments: PATIENT NOT FASTINGPERFORMED BY: [facility] [facility] [id number] Triiodothyronine (T3), Free 2.7 pg/mL (Normal) Range: 2.0-4.4 :13 HgA1C , Office (76985) HgA1C , Office 5.8 % (Normal) Range: 4.6 - 7.1 :13 Blood Glucose , Office (43947) Blood Glucose , Office 98 (Normal) :31 CBC W/Diff, Automated Comments: [facility] [address] [place], [address] Absolute Lymph 0.71 {X10_3/ul} (Abnormal) Range: 0.83-4.51 Absolute Neut 3.5 {X10_3/uL} (Normal) Range: 2.0-7.7 IM GRAN % 0.200 % (Normal) Range: 0.0-0.9 Comments: IG% - Immature Granulocytes (promyelocytes, myelocytes andmetamyelocytes) > 1% indicates that a LEFT SHIFT is Present. BASO% 0.2 % (Normal) Range: 0-1 EO% 0.4 % (Normal) Range: 0-5 MONO% 8.9 % (Normal) Range: 0-10 LY% 15.1 % (Abnormal) Range: 19-41 NEUT% 75.2 % (Abnormal) Range: 47-70 MPV 9.6 fL (Normal) Range: 6.2-12.0 PLT 392 K/mm3 (Normal) Range: 150-450 RDW SD 46.1 fL (Abnormal) Range: 35.1-43.9 RDW CV 13.6 % (Normal) Range: 11.6-14.6 MCHC 31.7 {g/gl} (Abnormal) Range: 32-36 MCH 30.5 pg (Normal) Range: 27.0-32.0 MCV 95.9 fL (Normal) Range: 81-99 HCT 37.8 % (Normal) Range: 37-47 HGB 12.0 g/dL (Normal) Range: 12.0-15.0 RBC 3.94 {M/mm3} (Abnormal) Range: 4.2-5.4 WBC 4.7 K/mm3 (Normal) Range: 4.4-11.0 04-Apr-20189:31 Comprehensive Metabolic Profil Comments: [facility] [address] [place], [address] GAP 10 (Normal) Range: 5-15 CO2 27.0 mmol/L (Normal) Range: 21.0-32.0 CL 107 mmol/L (Normal) Range: 98-107 K 4.0 mmol/L (Normal) Range: 3.5-5.1 NA 144 mmol/L (Normal) Range: 136-145 T BILI 0.30 mg/dL (Normal) Range: 0.20-1.00 ALT 32 U/L (Normal) Range: 13-56 ALK P 91 U/L (Normal) Range: 45-117 AST 30 U/L (Normal) Range: 15-37 CA 9.1 mg/dL (Normal) Range: 8.5-10.1 A/G 1.0 {RATIO} (Normal) Range: 0.9-2.4 GLOB 3.5 g/dL (Normal) Range: 2.2-4.2 ALB 3.6 g/dL (Normal) Range: 3.2-5.0 T PROT 7.1 g/dL (Normal) Range: 6.4-8.2 BUN/CRE 13.7 {RATIO} (Normal) Range: 10-20 EST GFR - AA 68 mL/min (Normal) Comments: GFR Calc EST GFR 56 mL/min (Abnormal) Comments: Non- GFR Calc CREAT,SERUM 1.02 mg/dL (Normal) Range: 0.55-1.02 Comments: The validity of the calculated GFR AND GFRAA in patients over70 years has not been determined. Clinical correlation isessential. BUN 14 mg/dL (Normal) Range: 7-18 GLU 98 mg/dL (Normal) Range: 74-106 Comments: Please note revised GLUCOSE reference range bshfqbqeb21/02/2018. 11-Jdq-08669:29 CBC W/Diff, Automated Comments: [facility] [address] [place], [address] Absolute Lymph 0.84 {X10_3/ul} (Normal) Range: 0.83-4.51 Absolute Neut 4.5 {X10_3/uL} (Normal) Range: 2.0-7.7 IM GRAN % 0.300 % (Normal) Range: 0.0-0.9 Comments: IG% - Immature Granulocytes (promyelocytes, myelocytes andmetamyelocytes) > 1% indicates that a LEFT SHIFT is Present. BASO% 0.3 % (Normal) Range: 0-1 EO% 0.2 % (Normal) Range: 0-5 MONO% 7.6 % (Normal) Range: 0-10 LY% 14.5 % (Abnormal) Range: 19-41 NEUT% 77.1 % (Abnormal) Range: 47-70 MPV 9.8 fL (Normal) Range: 6.2-12.0 PLT 358 K/mm3 (Normal) Range: 150-450 RDW SD 47.7 fL (Abnormal) Range: 35.1-43.9 RDW CV 13.8 % (Normal) Range: 11.6-14.6 MCHC 32.1 {g/gl} (Normal) Range: 32-36 MCH 31.2 pg (Normal) Range: 27.0-32.0 MCV 97.1 fL (Normal) Range: 81-99 HCT 40.5 % (Normal) Range: 37-47 HGB 13.0 g/dL (Normal) Range: 12.0-15.0 RBC 4.17 {M/mm3} (Abnormal) Range: 4.2-5.4 WBC 5.8 K/mm3 (Normal) Range: 4.4-11.0 11-Qrs-01064:29 Comprehensive Metabolic Profil Comments: [facility] [address] [place], [place], [id number] GAP 5 (Normal) Range: 5-15 CO2 30.0 mmol/L (Normal) Range: 21.0-32.0 CL 104 mmol/L (Normal) Range: 98-107 K 3.9 mmol/L (Normal) Range: 3.5-5.1 NA 139 mmol/L (Normal) Range: 136-145 T BILI 0.60 mg/dL (Normal) Range: 0.20-1.00 ALT 34 U/L (Normal) Range: 13-56 ALK P 101 U/L (Normal) Range: 45-117 AST 25 U/L (Normal) Range: 15-37 CA 9.7 mg/dL (Normal) Range: 8.5-10.1 A/G 1.1 {RATIO} (Normal) Range: 0.9-2.4 GLOB 3.6 g/dL (Normal) Range: 2.2-4.2 ALB 3.8 g/dL (Normal) Range: 3.2-5.0 T PROT 7.4 g/dL (Normal) Range: 6.4-8.2 BUN/CRE 9.7 {RATIO} (Abnormal) Range: 10-20 EST GFR - AA 76 mL/min (Normal) Comments: GFR Calc EST GFR 63 mL/min (Normal) Comments: Non- GFR Calc CREAT,SERUM 0.93 mg/dL (Normal) Range: 0.55-1.02 Comments: The validity of the calculated GFR AND GFRAA in patients over70 years has not been determined. Clinical correlation isessential. BUN 9 mg/dL (Normal) Range: 7-18 GLU 90 mg/dL (Normal) Range: 74-106 Comments: Please note revised GLUCOSE reference range wyaqcvoji85/02/2018. 53-Qtf-59519:14 METABOLIC PANEL, COMPREHENSIVE Comments: PATIENT WAS FASTINGPERFORMED BY: [facility] [id number] ([address]) ALT (SGPT) 26 [iU]/L (Normal) Range: 0-32 AST (SGOT) 26 [iU]/L (Normal) Range: 0-40 Alkaline Phosphatase 95 [iU]/L (Normal) Range: 39-117 Bilirubin, Total 0.3 mg/dL (Normal) Range: 0.0-1.2 A/G Ratio 1.7 (Normal) Range: 1.2-2.2 Globulin, Total 2.5 g/dL (Normal) Range: 1.5-4.5 Albumin 4.3 g/dL (Normal) Range: 3.5-4.8 Protein, Total 6.8 g/dL (Normal) Range: 6.0-8.5 Calcium 10.1 mg/dL (Normal) Range: 8.7-10.3 Carbon Dioxide, Total 23 mmol/L (Normal) Range: 20-29 Chloride 100 mmol/L (Normal) Range: 96-106 Potassium 4.5 mmol/L (Normal) Range: 3.5-5.2 Sodium 140 mmol/L (Normal) Range: 134-144 BUN/Creatinine Ratio 14 (Normal) Range: 12-28 eGFR If Africn Am 63 mL/min/1.73 (Normal) eGFR If NonAfricn Am 55 mL/min/1.73 (Abnormal) Creatinine 1.01 mg/dL (Abnormal) Range: 0.57-1.00 BUN 14 mg/dL (Normal) Range: 8-27 Glucose 93 mg/dL (Normal) Range: 65-99 28-Olz-99688:14 CBC, PLATELETS & AUT DIFF Comments: PATIENT WAS FASTINGPERFORMED BY: BevBucksox RoadDublin [place] [id number] ([address]) Immature Grans (Abs) 0.0 {x10E3/uL} (Normal) Range: 0.0-0.1 Immature Granulocytes 0 % (Normal) Baso (Absolute) 0.0 {x10E3/uL} (Normal) Range: 0.0-0.2 Eos (Absolute) 0.0 {x10E3/uL} (Normal) Range: 0.0-0.4 Monocytes(Absolute) 0.4 {x10E3/uL} (Normal) Range: 0.1-0.9 Lymphs (Absolute) 0.9 {x10E3/uL} (Normal) Range: 0.7-3.1 Neutrophils (Absolute) 4.0 {x10E3/uL} (Normal) Range: 1.4-7.0 Basos 0 % (Normal) Eos 0 % (Normal) Monocytes 7 % (Normal) Lymphs 16 % (Normal) Neutrophils 77 % (Normal) Platelets 409 {x10E3/uL} (Abnormal) Range: 150-379 RDW 14.9 % (Normal) Range: 12.3-15.4 MCHC 32.8 g/dL (Normal) Range: 31.5-35.7 MCH 30.4 pg (Normal) Range: 26.6-33.0 MCV 93 fL (Normal) Range: 79-97 Hematocrit 37.5 % (Normal) Range: 34.0-46.6 Hemoglobin 12.3 g/dL (Normal) Range: 11.1-15.9 RBC 4.05 {x10E6/uL} (Normal) Range: 3.77-5.28 WBC 5.3 {x10E3/uL} (Normal) Range: 3.4-10.8 54-Twf-43253:14 LIPID PANEL (53614) Comments: PATIENT WAS FASTINGPERFORMED BY: [facility]v2402 [facility] [id number] LDL/HDL Ratio 4.7 {ratio} (Abnormal) Range: 0.0-3.2 Comments: LDL/HDL Ratio Men Women 1/2 Avg.Risk 1.0 1.5 Av g.Risk 3.6 3.2 2X Avg.Risk 6.2 5.0 3X Avg.Risk 8.0 6.1 LDL Cholesterol Calc 178 mg/dL (Abnormal) Range: 0-99 VLDL Cholesterol Rocky 79 mg/dL (Abnormal) Range: 5-40 HDL Cholesterol 38 mg/dL (Abnormal) Triglycerides 397 mg/dL (Abnormal) Range: 0-149 Cholesterol, Total 295 mg/dL (Abnormal) Range: 100-199 43-Bcc-09946:14 CALCIFEDIOL (79205) Comments: PATIENT WAS FASTINGPERFORMED BY: [facility] HospitalIbayjm4138 [facility] [id number] Vitamin D, 25-Hydroxy 75.8 ng/mL (Normal) Range: 30.0-100.0 Comments: Vitamin D deficiency has been defined by the [place] ofMedicine and an Endocrine Society practice guideline as alevel of serum 25-OH vitamin D less than 20 ng/mL (1,2).The Endocrine Society went on to further define vitamin Dinsufficiency as a level between 21 and 29 ng/mL (2).1. IOM ([place] of [employer]). 2010. Dietary reference intakes for calcium and D. [place]: The National Academies Press.2. Micky MF, Yohana NC, Kennedy PAL, et al. Evaluation, treatment, and prevention of vitamin D deficiency: an Endocrine Society clinical practice guideline. JCEM. 2010; 96(7):1911-30. 80-Trk-434870:52 CBC W/Diff, Automated Comments: [facility] [address] [place], [place], [address] Absolute Lymph 0.91 {X10_3/ul} (Normal) Range: 0.83-4.51 Absolute Neut 3.3 {X10_3/uL} (Normal) Range: 2.0-7.7 IM GRAN % 0.200 % (Normal) Range: 0.0-0.9 Comments: IG% - Immature Granulocytes (promyelocytes, myelocytes andmetamyelocytes) > 1% indicates that a LEFT SHIFT is Present. BASO% 0.2 % (Normal) Range: 0-1 EO% 1.3 % (Normal) Range: 0-5 MONO% 8.5 % (Normal) Range: 0-10 LY% 19.4 % (Normal) Range: 19-41 NEUT% 70.4 % (Abnormal) Range: 47-70 MPV 9.4 fL (Normal) Range: 6.2-12.0 PLT 344 K/mm3 (Normal) Range: 150-450 RDW SD 53.4 fL (Abnormal) Range: 35.1-43.9 RDW CV 15.3 % (Abnormal) Range: 11.6-14.6 MCHC 31.4 {g/gl} (Abnormal) Range: 32-36 MCH 30.5 pg (Normal) Range: 27.0-32.0 MCV 97.1 fL (Normal) Range: 81-99 HCT 40.8 % (Normal) Range: 37-47 HGB 12.8 g/dL (Normal) Range: 12.0-15.0 RBC 4.20 {M/mm3} (Normal) Range: 4.2-5.4 WBC 4.7 K/mm3 (Normal) Range: 4.4-11.0 97-Cix-691724:52 Comprehensive Metabolic Profil Comments: [facility] [address] [place], [place], [address] GAP 6 (Normal) Range: 5-15 CO2 29.0 mmol/L (Normal) Range: 21.0-32.0 CL 105 mmol/L (Normal) Range: 98-107 K 4.0 mmol/L (Normal) Range: 3.5-5.1 NA 140 mmol/L (Normal) Range: 136-145 T BILI 0.40 mg/dL (Normal) Range: 0.20-1.00 ALT 66 U/L (Abnormal) Range: 13-56 ALK P 100 U/L (Normal) Range: 45-117 AST 54 U/L (Abnormal) Range: 15-37 CA 9.7 mg/dL (Normal) Range: 8.5-10.1 A/G 1.1 {RATIO} (Normal) Range: 0.9-2.4 GLOB 3.7 g/dL (Normal) Range: 2.2-4.2 ALB 3.9 g/dL (Normal) Range: 3.2-5.0 T PROT 7.6 g/dL (Normal) Range: 6.4-8.2 BUN/CRE 11.3 {RATIO} (Normal) Range: 10-20 EST GFR - AA 72 mL/min (Normal) Comments: GFR Calc EST GFR 60 mL/min (Normal) Comments: Non- GFR Calc CREAT,SERUM 0.97 mg/dL (Normal) Range: 0.55-1.02 Comments: The validity of the calculated GFR AND GFRAA in patients over70 years has not been determined. Clinical correlation isessential. BUN 11 mg/dL (Normal) Range: 7-18 GLU 105 mg/dL (Normal) Range: 74-106 Comments: Fasting Glucose result from 100 to 125 mg/dLsuggests IMPAIRED HOMEOSTASIS per A.D.A. criteria.Please note revised GLUCOSE reference range xnrksoiah76/02/2018. 3-Glc-571767:09 HgA1C , Office (46222) HgA1C , Office 5.6 % (Normal) Range: 4.6 - 7.1 02-Qgf-77198:15 CBC W/Diff, Automated Comments: [facility] [address] [place], [place], [id number] Absolute Lymph 0.70 {X10_3/ul} (Abnormal) Range: 0.83-4.51 Absolute Neut 2.5 {X10_3/uL} (Normal) Range: 2.0-7.7 IM GRAN % 0.300 % (Normal) Range: 0.0-0.9 Comments: IG% - Immature Granulocytes (promyelocytes, myelocytes andmetamyelocytes) > 1% indicates that a LEFT SHIFT is Present. BASO% 0.3 % (Normal) Range: 0-1 EO% 0.0 % (Normal) Range: 0-5 MONO% 8.4 % (Normal) Range: 0-10 LY% 20.2 % (Normal) Range: 19-41 NEUT% 70.8 % (Abnormal) Range: 47-70 MPV 9.8 fL (Normal) Range: 6.2-12.0 PLT 356 K/mm3 (Normal) Range: 150-450 RDW SD 50.6 fL (Abnormal) Range: 35.1-43.9 RDW CV 15.3 % (Abnormal) Range: 11.6-14.6 MCHC 32.4 {g/gl} (Normal) Range: 32-36 MCH 30.5 pg (Normal) Range: 27.0-32.0 MCV 94.2 fL (Normal) Range: 81-99 HCT 37.4 % (Normal) Range: 37-47 HGB 12.1 g/dL (Normal) Range: 12.0-15.0 RBC 3.97 {M/mm3} (Abnormal) Range: 4.2-5.4 WBC 3.5 K/mm3 (Abnormal) Range: 4.4-11.0 [id number] Comprehensive Metabolic Profil Comments: [facility] [id number] [place], [place], [id number] GAP 7 (Normal) Range: 5-15 CO2 29.0 mmol/L (Normal) Range: 21.0-32.0 CL 106 mmol/L (Normal) Range: 98-107 K 3.8 mmol/L (Normal) Range: 3.5-5.1 NA 142 mmol/L (Normal) Range: 136-145 T BILI 0.40 mg/dL (Normal) Range: 0.20-1.00 ALT 38 U/L (Normal) Range: 13-56 Comments: Please note revised ALT reference range [id number]/28/2018. ALK P 74 U/L (Normal) Range: 45-117 AST 28 U/L (Normal) Range: 15-37 CA 9.2 mg/dL (Normal) Range: 8.5-10.1 A/G 1.1 {RATIO} (Normal) Range: 0.9-2.4 GLOB 3.5 g/dL (Normal) Range: 2.2-4.2 ALB 3.7 g/dL (Normal) Range: 3.2-5.0 T PROT 7.2 g/dL (Normal) Range: 6.4-8.2 BUN/CRE 8.2 {RATIO} (Abnormal) Range: 10-20 EST GFR - AA 71 mL/min (Normal) Comments: GFR Calc EST GFR 59 mL/min (Abnormal) Comments: Non- GFR Calc CREAT,SERUM 0.98 mg/dL (Normal) Range: 0.55-1.02 Comments: The validity of the calculated GFR AND GFRAA in patients over70 years has not been determined. Clinical correlation isessential. BUN 8 mg/dL (Normal) Range: 7-18 GLU 92 mg/dL (Normal) Range: 74-106 Comments: Please note revised GLUCOSE reference range uiiipurxk96/02/2018. 47-Vtc-64448:44 VITAMIN B-12 (CYANOCOBALAMIN) Comments: PATIENT WAS FASTINGPERFORMED BY: [facility]ohmMeadowview Psychiatric HospitalTabtzl9256 [facility] [id number] ([id number]) Vitamin B12 575 pg/mL (Normal) Range: 232-1245 12-Nix-06536:44 METABOLIC PANEL, COMPREHENSIVE Comments: PATIENT WAS FASTINGPERFORMED BY: EnohmMeadowview Psychiatric HospitalQgijmo2707 [facility] [id number] (19698) ALT (SGPT) 30 [iU]/L (Normal) Range: 0-32 AST (SGOT) 30 [iU]/L (Normal) Range: 0-40 Alkaline Phosphatase 74 [iU]/L (Normal) Range: 39-117 Bilirubin, Total 0.3 mg/dL (Normal) Range: 0.0-1.2 A/G Ratio 1.9 (Normal) Range: 1.2-2.2 Globulin, Total 2.4 g/dL (Normal) Range: 1.5-4.5 Albumin 4.5 g/dL (Normal) Range: 3.5-4.8 Protein, Total 6.9 g/dL (Normal) Range: 6.0-8.5 Calcium 9.6 mg/dL (Normal) Range: 8.7-10.3 Carbon Dioxide, Total 24 mmol/L (Normal) Range: 18-29 Chloride 101 mmol/L (Normal) Range: 96-106 Potassium 4.2 mmol/L (Normal) Range: 3.5-5.2 Sodium 144 mmol/L (Normal) Range: 134-144 BUN/Creatinine Ratio 11 (Abnormal) Range: 12-28 eGFR If Africn Am 70 mL/min/1.73 (Normal) eGFR If NonAfricn Am 61 mL/min/1.73 (Normal) Creatinine 0.93 mg/dL (Normal) Range: 0.57-1.00 BUN 10 mg/dL (Normal) Range: 8-27 Glucose 86 mg/dL (Normal) Range: 65-99 49-Dtc-60325:44 CBC W/AUTO DIFF WBC (49790) Comments: PATIENT WAS FASTINGPERFORMED BY: EnohmMeadowview Psychiatric HospitalJlijhe1607 [facility] [id number] Immature Grans (Abs) 0.0 {x10E3/uL} (Normal) Range: 0.0-0.1 Immature Granulocytes 0 % (Normal) Baso (Absolute) 0.0 {x10E3/uL} (Normal) Range: 0.0-0.2 Eos (Absolute) 0.0 {x10E3/uL} (Normal) Range: 0.0-0.4 Monocytes(Absolute) 0.4 {x10E3/uL} (Normal) Range: 0.1-0.9 Lymphs (Absolute) 1.1 {x10E3/uL} (Normal) Range: 0.7-3.1 Neutrophils (Absolute) 4.0 {x10E3/uL} (Normal) Range: 1.4-7.0 Basos 0 % (Normal) Eos 0 % (Normal) Monocytes 7 % (Normal) Lymphs 19 % (Normal) Neutrophils 74 % (Normal) Platelets 376 {x10E3/uL} (Normal) Range: 150-379 RDW 16.9 % (Abnormal) Range: 12.3-15.4 MCHC 32.2 g/dL (Normal) Range: 31.5-35.7 MCH 30.3 pg (Normal) Range: 26.6-33.0 MCV 94 fL (Normal) Range: 79-97 Hematocrit 38.2 % (Normal) Range: 34.0-46.6 Hemoglobin 12.3 g/dL (Normal) Range: 11.1-15.9 RBC 4.06 {x10E6/uL} (Normal) Range: 3.77-5.28 WBC 5.5 {x10E3/uL} (Normal) Range: 3.4-10.8 98-Lyz-47373:44 LIPID PANEL (19587) Comments: PATIENT WAS FASTINGPERFORMED BY: LabCoMeadowview Psychiatric HospitalMvcgsn0303 [facility] [id number] LDL/HDL Ratio 3.9 {ratio_units} (Abnormal) Range: 0.0-3.2 Comments: LDL/HDL Ratio Men Women 1/2 Avg.Risk 1.0 1.5 Av g.Risk 3.6 3.2 2X Avg.Risk 6.2 5.0 3X Avg.Risk 8.0 6.1 LDL Cholesterol Calc 177 mg/dL (Abnormal) Range: 0-99 VLDL Cholesterol Rocky 54 mg/dL (Abnormal) Range: 5-40 HDL Cholesterol 45 mg/dL (Normal) Triglycerides 271 mg/dL (Abnormal) Range: 0-149 Cholesterol, Total 276 mg/dL (Abnormal) Range: 100-199 60-Ecu-28398:44 CALCIFIDIOL (44156) VIT D 25 Comments: PATIENT WAS FASTINGPERFORMED BY: LabCoMeadowview Psychiatric HospitalYfbshv4397 [facility] [id number] Vitamin D, 25-Hydroxy 38.1 ng/mL (Normal) Range: 30.0-100.0 Comments: Vitamin D deficiency has been defined by the [place] ofMedicine and an Endocrine Society practice guideline as alevel of serum 25-OH vitamin D less than 20 ng/mL (1,2).The Endocrine Society went on to further define vitamin Dinsufficiency as a level between 21 and 29 ng/mL (2).1. IOM ([place] of Medicine). 2010. Dietary reference intakes for calcium and D. [place]: The National Academies Press.2. Micky MF, Yohana COBURN, Kennedy PAL, et al. Evaluation, treatment, and prevention of vitamin D deficiency: an Endocrine Society clinical practice guideline. JCEM. 2010; 96(7):1911-30. :51 HgA1C , Office (65959) HgA1C , Office 5.6 % (Normal) Range: 4.6 - 7.1 :53 CBC W/Diff, Automated Comments: [facility] [address] [place], [place], [id number] Absolute Lymph 0.78 {X10_3/ul} (Abnormal) Range: 0.83-4.51 Absolute Neut 2.7 {X10_3/uL} (Normal) Range: 2.0-7.7 IM GRAN % 0.300 % (Normal) Range: 0.0-0.9 Comments: IG% - Immature Granulocytes (promyelocytes, myelocytes andmetamyelocytes) > 1% indicates that a LEFT SHIFT is Present. BASO% 0.3 % (Normal) Range: 0-1 EO% 0.0 % (Normal) Range: 0-5 MONO% 8.6 % (Normal) Range: 0-10 LY% 20.4 % (Normal) Range: 19-41 NEUT% 70.4 % (Abnormal) Range: 47-70 MPV 9.4 fL (Normal) Range: 6.2-12.0 PLT 423 K/mm3 (Normal) Range: 150-450 RDW SD 55.4 fL (Abnormal) Range: 35.1-43.9 RDW CV 16.9 % (Abnormal) Range: 11.6-14.6 MCHC 30.6 {g/gl} (Abnormal) Range: 32-36 MCH 28.0 pg (Normal) Range: 27.0-32.0 MCV 91.6 fL (Normal) Range: 81-99 HCT 36.0 % (Abnormal) Range: 37-47 HGB 11.0 g/dL (Abnormal) Range: 12.0-15.0 RBC 3.93 {M/mm3} (Abnormal) Range: 4.2-5.4 WBC 3.8 K/mm3 (Abnormal) Range: 4.4-11.0 :53 Comprehensive Metabolic Profil Comments: [facility] [address] [place], [address] GAP 8 (Normal) Range: 5-15 CO2 27.0 mmol/L (Normal) Range: 21.0-32.0 CL 105 mmol/L (Normal) Range: 98-107 K 3.7 mmol/L (Normal) Range: 3.5-5.1 NA 140 mmol/L (Normal) Range: 136-145 T BILI 0.50 mg/dL (Normal) Range: 0.20-1.00 ALT 54 U/L (Normal) Range: 12-78 ALK P 79 U/L (Normal) Range: 45-117 AST 43 U/L (Abnormal) Range: 15-37 CA 9.2 mg/dL (Normal) Range: 8.5-10.1 A/G 1.1 {RATIO} (Normal) Range: 0.9-2.4 GLOB 3.6 g/dL (Normal) Range: 2.2-4.2 ALB 3.8 g/dL (Normal) Range: 3.4-5.0 Comments: Please note revised Albumin AND Globulin reference rangeeffective 2017. T PROT 7.4 g/dL (Normal) Range: 6.4-8.2 BUN/CRE 10.4 {RATIO} (Normal) Range: 10-20 EST GFR - AA 73 mL/min (Normal) Comments: GFR Calc EST GFR 60 mL/min (Normal) Comments: Non- GFR Calc CREAT,SERUM 0.96 mg/dL (Normal) Range: 0.55-1.02 Comments: The validity of the calculated GFR AND GFRAA in patients over70 years has not been determined. Clinical correlation isessential. BUN 10 mg/dL (Normal) Range: 7-18 GLU 90 mg/dL (Normal) Range: 70-110 :48 LIPID PANEL (00722) Comments: PATIENT WAS FASTINGPERFORMED BY: [employer] [facility] HospitalVF CorporationRutherford Regional Health System [id number] BY: [employer] [address] [id number] LDL/HDL Ratio 4.5 {ratio_units} (Abnormal) Range: 0.0-3.2 Comments: LDL/HDL Ratio Men Women 1/2 Avg.Risk 1.0 1.5 Av g.Risk 3.6 3.2 2X Avg.Risk 6.2 5.0 3X Avg.Risk 8.0 6.1 LDL Cholesterol Calc 211 mg/dL (Abnormal) Range: 0-99 VLDL Cholesterol Rocky 51 mg/dL (Abnormal) Range: 5-40 HDL Cholesterol 47 mg/dL (Normal) Triglycerides 253 mg/dL (Abnormal) Range: 0-149 Cholesterol, Total 309 mg/dL (Abnormal) Range: 100-199 48-Csm-09134:48 Vitamin D Hydroxy Comments: PATIENT WAS FASTINGPERFORMED BY: [employer] [facility] [id number] BY: [employer] [address] [id number] (11416) Vitamin D, 25-Hydroxy 68.0 ng/mL (Normal) Range: 30.0-100.0 Comments: Vitamin D deficiency has been defined by the [place] ofMedicine and an Endocrine Society practice guideline as alevel of serum 25-OH vitamin D less than 20 ng/mL (1,2).The Endocrine Society went on to further define vitamin Dinsufficiency as a level between 21 and 29 ng/mL (2).1. IOM ([place] of Medicine). 2010. Dietary reference intakes for calcium and D. [place]: The National Academies Press.2. Micky MF, Yohana COBURN, Kennedy PAL, et al. Evaluation, treatment, and prevention of vitamin D deficiency: an Endocrine Society clinical practice guideline. JCEM. 2010; 96(7):1911-30. :48 FERRITIN (53175) Comments: PATIENT WAS FASTINGPERFORMED BY: [employer]70 [address] Road[address] [place] [id number] BY: Enohm[address] [id number] Ferritin, Serum 20 ng/mL (Normal) Range: 15-150 :48 IRON BINDING CAPACITY Comments: PATIENT WAS FASTINGPERFORMED BY: [employer] [facility] [place] [id number] BY: Enohm[address] [id number] (TIBC) (14510) Iron Saturation 10 % (Abnormal) Range: 15-55 Iron, Serum 43 ug/dL (Normal) Range: 27-139 UIBC 376 ug/dL (Abnormal) Range: 118-369 Iron Bind.Cap.(TIBC) 419 ug/dL (Normal) Range: 250-450 :48 Methymalonic Acid, Serum Comments: PATIENT WAS FASTINGPERFORMED BY: [employer] [address] [facility] [place] [id number] BY: Enohm[address] [id number] (14161) Methylmalonic Acid, Serum 371 nmol/L (Normal) Range: 0-378 :48 VITAMIN B-12 (CYANOCOBALAMIN) Comments: PATIENT WAS FASTINGPERFORMED BY: [employer] [address] [facility] [place] [id number] BY: [address] [id number] (72059) Vitamin B12 511 pg/mL (Normal) Range: 211-946 Comments: Effective August 06, 2017 the reference interval for Vitamin B12 will be changing to: 232-1245 pg/mL. 71-Oxv-252515:27 Protein Electro, Random Comments: PATIENT NOT FASTINGPERFORMED BY: Enohm Wnhkoh4231 [facility] [id number] BY: [address] [id number] Urine Please note: SPRCS (Normal) Comments: Protein electrophoresis scan will follow via computer, mail, orcourier delivery. M-Geraldo, % Not Observed % (Normal) Gamma Globulin, U 24.5 % (Normal) Beta Globulin, U 26.3 % (Normal) Tvbus-3-Upoavhju, U 17.3 % (Normal) Gtadu-4-Fsowznce, U 7.0 % (Normal) Albumin, U 24.9 % (Normal) Protein,Total,Urine <4.0 mg/dL (Normal) Comments: Verified by repeat analysis 36-Dyt-989042:27 Soluble Transferrin Comments: PATIENT NOT FASTINGPERFORMED BY: Enohm Fzhvhh4262 [facility] [id number] BY: [address] [id number] Receptor (95212) Soluble Transferrin Receptor 24.6 nmol/L (Normal) Range: 12.2-27.3 15-Ili-008338:27 WILLIAM TEST, DIRECT Comments: PATIENT NOT FASTINGPERFORMED BY: Enohm Lzotjv9927 [facility] [id number] BY: [address] [id number] (84708) William', Direct Negative (Normal) 57-Bga-214063:27 FOLIC ACID SERUM (67402) Comments: PATIENT NOT FASTINGPERFORMED BY: Enohm Jzythh7345 [facility] [id number] BY: [address] [id number] Folate (Folic Acid), Serum >20.0 ng/mL (Normal) Comments: A serum folate concentration of less than 3.1 ng/mL isconsidered to represent clinical deficiency. 22-Psp-653750:27 Methymalonic Acid, Serum Comments: PATIENT NOT FASTINGPERFORMED BY: [employer] Gynfsm[address] [facility] [place] [id number] BY: [address] [id number] (64742) Methylmalonic Acid, Serum 554 nmol/L (Abnormal) Range: 0-378 39-Cee-602983:27 VITAMIN B-12 Comments: PATIENT NOT FASTINGPERFORMED BY: [employer] Ibelfe7362 Razo RoadDublin [place] [id number] BY: [address] [id number] (CYANOCOBALAMIN) (81493) Vitamin B12 386 pg/mL (Normal) Range: 211-946 26-Hed-946046:27 RETICULOCYTE COUNT MANUL Comments: PATIENT NOT FASTINGPERFORMED BY: [facility] Hzknhr[address] [facility] [place] [id number] BY: [address] [id number] (73550) Reticulocyte Count 1.4 % (Normal) Range: 0.6-2.6 29-Xmx-997231:27 LDH (LD) (LACTATE Comments: PATIENT NOT FASTINGPERFORMED BY: [facility] Ilokib[address] [facility] [place] [id number] BY: [address] [id number] DEHYDROGENASE) (09331) LDH 202 [iU]/L (Normal) Range: 119-226 91-Eti-006776:27 IRON BINDING CAPACITY Comments: PATIENT NOT FASTINGPERFORMED BY: [facility] Qufbuh78[address] RoadFormerly [facility] Hospitalin [place] [id number] BY: [address] [id number] (TIBC) (98553) Iron Saturation 6 % (Abnormal) Range: 15-55 Iron, Serum 26 ug/dL (Abnormal) Range: 27-139 UIBC 394 ug/dL (Abnormal) Range: 118-369 Iron Bind.Cap.(TIBC) 420 ug/dL (Normal) Range: 250-450 02-Zxr-214963:27 FERRITIN (62130) Comments: PATIENT NOT FASTINGPERFORMED BY: EnohmRobert [place] 2379370 [facility] [id number] BY: Enohm[address] [id number] Ferritin, Serum 20 ng/mL (Normal) Range: 15-150 47-Xqc-049814:27 CBC, PLATELETS & AUT DIFF Comments: PATIENT NOT FASTINGPERFORMED BY: EnohmRobert [place] 2379370 [facility] [id number] BY: Enohm[address] [id number] (38440) Immature Grans (Abs) 0.0 {x10E3/uL} (Normal) Range: 0.0-0.1 Immature Granulocytes 0 % (Normal) Baso (Absolute) 0.0 {x10E3/uL} (Normal) Range: 0.0-0.2 Eos (Absolute) 0.0 {x10E3/uL} (Normal) Range: 0.0-0.4 Monocytes(Absolute) 0.4 {x10E3/uL} (Normal) Range: 0.1-0.9 Lymphs (Absolute) 0.8 {x10E3/uL} (Normal) Range: 0.7-3.1 Neutrophils (Absolute) 3.9 {x10E3/uL} (Normal) Range: 1.4-7.0 Basos 0 % (Normal) Eos 0 % (Normal) Monocytes 8 % (Normal) Lymphs 15 % (Normal) Neutrophils 77 % (Normal) Platelets 469 {x10E3/uL} (Abnormal) Range: 150-379 RDW 17.7 % (Abnormal) Range: 12.3-15.4 MCHC 31.2 g/dL (Abnormal) Range: 31.5-35.7 MCH 27.5 pg (Normal) Range: 26.6-33.0 MCV 88 fL (Normal) Range: 79-97 Hematocrit 34.3 % (Normal) Range: 34.0-46.6 Hemoglobin 10.7 g/dL (Abnormal) Range: 11.1-15.9 RBC 3.89 {x10E6/uL} (Normal) Range: 3.77-5.28 WBC 5.1 {x10E3/uL} (Normal) Range: 3.4-10.8 75-Jea-366150:27 Serum Protein Comments: PATIENT NOT FASTINGPERFORMED BY: CB [facility] Fuxgot4201 [facility] [id number] BY: BN [facility] [address] [id number] Electrophoresis (SPEP) (75158) Please note: SPRCS (Normal) Comments: Protein electrophoresis scan will follow via computer, mail, orcourier delivery. A/G Ratio 1.2 (Normal) Range: 0.7-1.7 Globulin, Total 3.3 g/dL (Normal) Range: 2.2-3.9 M-Geraldo Not Observed g/dL (Normal) Gamma Globulin 0.8 g/dL (Normal) Range: 0.4-1.8 Beta Globulin 1.3 g/dL (Normal) Range: 0.7-1.3 Hqmbf-2-Xspcrzxy 1.0 g/dL (Normal) Range: 0.4-1.0 Lnjiw-7-Uectafmd 0.2 g/dL (Normal) Range: 0.0-0.4 Albumin 3.8 g/dL (Normal) Range: 2.9-4.4 Protein, Total, Serum 7.1 g/dL (Normal) Range: 6.0-8.5 :58 CBC W/Diff, Automated Comments: [facility] [address] [place], [place], [id number] Absolute Lymph 0.80 {X10_3/ul} (Abnormal) Range: 0.83-4.51 Absolute Neut 3.5 {X10_3/uL} (Normal) Range: 2.0-7.7 IM GRAN % 0.200 % (Normal) Range: 0.0-0.9 Comments: IG% - Immature Granulocytes (promyelocytes, myelocytes andmetamyelocytes) > 1% indicates that a LEFT SHIFT is Present. BASO% 0.4 % (Normal) Range: 0-1 EO% 0.4 % (Normal) Range: 0-5 MONO% 6.7 % (Normal) Range: 0-10 LY% 17.2 % (Abnormal) Range: 19-41 NEUT% 75.1 % (Abnormal) Range: 47-70 MPV 9.8 fL (Normal) Range: 6.2-12.0 PLT 367 K/mm3 (Normal) Range: 150-450 RDW SD 50.6 fL (Abnormal) Range: 35.1-43.9 RDW CV 15.6 % (Abnormal) Range: 11.6-14.6 MCHC 31.3 {g/gl} (Abnormal) Range: 32-36 MCH 28.2 pg (Normal) Range: 27.0-32.0 MCV 90.3 fL (Normal) Range: 81-99 HCT 35.5 % (Abnormal) Range: 37-47 HGB 11.1 g/dL (Abnormal) Range: 12.0-15.0 RBC 3.93 {M/mm3} (Abnormal) Range: 4.2-5.4 WBC 4.6 K/mm3 (Normal) Range: 4.4-11.0 18-Qhr-78049:58 Comprehensive Metabolic Profil Comments: [facility] [address] [place], [address] GAP 7 (Normal) Range: 5-15 CO2 30.0 mmol/L (Normal) Range: 21.0-32.0 CL 102 mmol/L (Normal) Range: 98-107 K 3.7 mmol/L (Normal) Range: 3.5-5.1 NA 139 mmol/L (Normal) Range: 136-145 T BILI 0.60 mg/dL (Normal) Range: 0.20-1.00 ALT 25 U/L (Normal) Range: 12-78 ALK P 81 U/L (Normal) Range: 45-117 AST 28 U/L (Normal) Range: 15-37 CA 9.6 mg/dL (Normal) Range: 8.5-10.1 A/G 1.0 {RATIO} (Normal) Range: 0.9-2.4 GLOB 3.9 g/dL (Abnormal) Range: 2.3-3.5 ALB 3.8 g/dL (Normal) Range: 3.4-5.0 T PROT 7.7 g/dL (Normal) Range: 6.4-8.2 BUN/CRE 13.0 {RATIO} (Normal) Range: 10-20 EST GFR - AA 77 mL/min (Normal) Comments: GFR Calc EST GFR 63 mL/min (Normal) Comments: Non- GFR Calc CREAT,SERUM 0.92 mg/dL (Normal) Range: 0.55-1.02 Comments: The validity of the calculated GFR AND GFRAA in patients over70 years has not been determined. Clinical correlation isessential. BUN 12 mg/dL (Normal) Range: 7-18 GLU 90 mg/dL (Normal) Range: 70-110 :35 Basic Metabolic Profile (BMP) Comments: [facility] [address] [place], [place], [id number] GAP 9 (Normal) Range: 5-15 CO2 28.0 mmol/L (Normal) Range: 21.0-32.0 CL 104 mmol/L (Normal) Range: 98-107 K 4.0 mmol/L (Normal) Range: 3.5-5.1 NA 141 mmol/L (Normal) Range: 136-145 CA 9.6 mg/dL (Normal) Range: 8.5-10.1 BUN/CRE 8.0 {RATIO} (Abnormal) Range: 10-20 Estimated CRCL 37.81 ml/min (Normal) EST GFR - AA 70 mL/min (Normal) Comments: GFR Calc EST GFR 58 mL/min (Abnormal) Comments: Non- GFR Calc CREAT,SERUM 1.00 mg/dL (Normal) Range: 0.55-1.02 Comments: The validity of the calculated GFR AND GFRAA in patients over70 years has not been determined. Clinical correlation isessential. BUN 8 mg/dL (Normal) Range: 7-18 GLU 94 mg/dL (Normal) Range: 70-110 :35 CBC-Complete Blood Cnt No Diff Comments: [facility] [address] [place], [place], [id number] MPV 9.6 fL (Normal) Range: 6.2-12.0 PLT 400 K/mm3 (Normal) Range: 150-450 RDW SD 47.8 fL (Abnormal) Range: 35.1-43.9 RDW CV 14.8 % (Abnormal) Range: 11.6-14.6 MCHC 31.6 {g/gl} (Abnormal) Range: 32-36 MCH 28.5 pg (Normal) Range: 27.0-32.0 MCV 90.1 fL (Normal) Range: 81-99 HCT 36.4 % (Abnormal) Range: 37-47 HGB 11.5 g/dL (Abnormal) Range: 12.0-15.0 RBC 4.04 {M/mm3} (Abnormal) Range: 4.2-5.4 WBC 4.5 K/mm3 (Normal) Range: 4.4-11.0 :35 Partial Thromboplast Time Comments: [facility] [address] [place], [place], [id number] PTT 27.3 s (Normal) Range: 24.1-36.2 :35 Prothrombin Time w/INR Comments: [facility] [address] [place], [address] INR 1.0 (Normal) PROTIME 12.7 s (Normal) Range: 11.7-14.9 79-Hjx-365044:30 Urinalysis, Complete Comments: Order Date: 02/12/17How was Urine Obtained? CLEAN [facility] [address] [place], [place], [id number] MUCUS, URINE 0 SEEN {/hpf} (Normal) BACTERIA 0 SEEN {/hpf} (Normal) SQUAM EPI 5-10 SEEN {/hpf} (Normal) Range: 5-10 RBC-UA 0-5 SEEN {/hpf} (Normal) Range: 0-5 WBC 0-5 SEEN {/hpf} (Normal) Range: 0-5 LEUK ESTERASE 25 /ul (Abnormal) OCCULT BLOOD-UR 10 /ul (Abnormal) NITRITE UR Negative (Normal) UROBILI Normal mg/dL (Normal) PROT DIPSTX 15 mg/dL (Abnormal) pH UR 6.0 (Normal) Range: 5.0 - 8.0 SP.GR. DIPSTX 1.020 (Normal) Range: 1.002-1.030 KETONE UR Negative mg/dL (Normal) BILIRUBIN URINE Negative mg/dL (Normal) GLUCOSE, UR Normal mg/dL (Normal) CLARITY Sl. Cloudy (Normal) COLOR Yellow (Normal) :45 Basic Metabolic Profile (BMP) Comments: [facility] [address] [place], [place], [id number] GAP 10 (Normal) Range: 5-15 CO2 27.0 mmol/L (Normal) Range: 21.0-32.0 CL 104 mmol/L (Normal) Range: 98-107 K 3.6 mmol/L (Normal) Range: 3.5-5.1 Comments: Slight Hemolysis, Result may be falsely increased. NA 141 mmol/L (Normal) Range: 136-145 CA 10.1 mg/dL (Normal) Range: 8.5-10.1 BUN/CRE 7.2 {RATIO} (Abnormal) Range: 10-20 Estimated CRCL 34.06 ml/min (Normal) EST GFR - AA 62 mL/min (Normal) Comments: GFR Calc EST GFR 51 mL/min (Abnormal) Comments: Non- GFR Calc CREAT,SERUM 1.11 mg/dL (Abnormal) Range: 0.55-1.02 Comments: The validity of the calculated GFR AND GFRAA in patients over70 years has not been determined. Clinical correlation isessential. BUN 8 mg/dL (Normal) Range: 7-18 GLU 100 mg/dL (Normal) Range: 70-110 :45 CBC W/Diff, Automated Comments: [facility] [address] [place], [address] Absolute Lymph 0.94 {X10_3/ul} (Normal) Range: 0.83-4.51 Absolute Neut 5.9 {X10_3/uL} (Normal) Range: 2.0-7.7 IM GRAN % 0.300 % (Normal) Range: 0.0-0.9 Comments: IG% - Immature Granulocytes (promyelocytes, myelocytes andmetamyelocytes) > 1% indicates that a LEFT SHIFT is Present. BASO% 0.1 % (Normal) Range: 0-1 EO% 0.0 % (Normal) Range: 0-5 MONO% 5.5 % (Normal) Range: 0-10 LY% 12.9 % (Abnormal) Range: 19-41 NEUT% 81.2 % (Abnormal) Range: 47-70 MPV 9.6 fL (Normal) Range: 6.2-12.0 PLT 436 K/mm3 (Normal) Range: 150-450 RDW SD 49.3 fL (Abnormal) Range: 35.1-43.9 RDW CV 15.0 % (Abnormal) Range: 11.6-14.6 MCHC 31.5 {g/gl} (Abnormal) Range: 32-36 MCH 28.3 pg (Normal) Range: 27.0-32.0 MCV 90.1 fL (Normal) Range: 81-99 HCT 37.2 % (Normal) Range: 37-47 HGB 11.7 g/dL (Abnormal) Range: 12.0-15.0 RBC 4.13 {M/mm3} (Abnormal) Range: 4.2-5.4 WBC 7.3 K/mm3 (Normal) Range: 4.4-11.0 08-Hly-679280:10 URINE MAHENDRA CULTURE-IDENTIFICATN Comments: PATIENT WAS FASTINGPERFORMED BY: FreshPayMeadowview Psychiatric HospitalUrjszk1220 [facility] [id number] (28907) Result 1 MUG (Normal) Comments: Mixed urogenital flora25,000-50,000 colony forming units per mL Urine Final report (Normal) Culture,Comprehensive 72-Zhq-900108:10 URINALYSIS (26450) Comments: PATIENT WAS FASTINGPERFORMED BY: FreshPayMeadowview Psychiatric HospitalMvfkki1565 [facility] [id number] Microscopic Examination MICNIP (Normal) Comments: Microscopic not indicated and not performed. Nitrite, Urine Negative (Normal) Urobilinogen,Semi-Qn 0.2 mg/dL (Normal) Range: 0.2-1.0 Bilirubin Negative (Normal) Occult Blood Negative (Normal) Ketones Negative (Normal) Glucose Negative (Normal) Protein Trace (Normal) WBC Esterase Negative (Normal) Appearance Clear (Normal) Urine-Color Yellow (Normal) pH 7.0 (Normal) Range: 5.0-7.5 Specific Kinder 1.015 (Normal) Range: 1.005-1.030 [id number] C-REACTIVE PROTEIN ([id number]) Comments: PATIENT WAS FASTINGPERFORMED BY: [employer] [id number] [facility] [id number] C-Reactive Protein, Quant 7.7 mg/L (Abnormal) Range: 0.0-4.9 :10 Sed Rate Erythrocyte (84922) Comments: PATIENT WAS FASTINGPERFORMED BY: [facility] [id number] [facility] [id number] Sedimentation Rate-Westergren 34 mm/h (Normal) Range: 0-40 [id number] Metabolic Panel, Comprehensive Comments: PATIENT WAS FASTINGPERFORMED BY: [employer] [id number] [facility] [id number] ([id number]) ALT (SGPT) 13 [iU]/L (Normal) Range: 0-32 AST (SGOT) 26 [iU]/L (Normal) Range: 0-40 Alkaline Phosphatase, S 77 [iU]/L (Normal) Range: 39-117 Bilirubin, Total 0.5 mg/dL (Normal) Range: 0.0-1.2 A/G Ratio 1.8 (Normal) Range: 1.2-2.2 Globulin, Total 2.4 g/dL (Normal) Range: 1.5-4.5 Albumin, Serum 4.4 g/dL (Normal) Range: 3.5-4.8 Protein, Total, Serum 6.8 g/dL (Normal) Range: 6.0-8.5 Calcium, Serum 10.6 mg/dL (Abnormal) Range: 8.7-10.3 Carbon Dioxide, Total 23 mmol/L (Normal) Range: 18-29 Chloride, Serum 99 mmol/L (Normal) Range: 96-106 Potassium, Serum 4.5 mmol/L (Normal) Range: 3.5-5.2 Sodium, Serum 141 mmol/L (Normal) Range: 134-144 BUN/Creatinine Ratio 9 (Abnormal) Range: 12-28 eGFR If Africn Am 66 mL/min/1.73 (Normal) eGFR If NonAfricn Am 57 mL/min/1.73 (Abnormal) Creatinine, Serum 0.98 mg/dL (Normal) Range: 0.57-1.00 BUN 9 mg/dL (Normal) Range: 8-27 Glucose, Serum 93 mg/dL (Normal) Range: 65-99 [id number] CBC with auto diff Comments: PATIENT WAS FASTINGPERFORMED BY: [facility] [id number] [facility] [id number] Information: SRC:KORINA ([id number]) Hematology Comments: Note: (Normal) Comments: Verified by microscopic examination. Immature Grans (Abs) 0.0 {x10E3/uL} (Normal) Range: 0.0-0.1 Immature Granulocytes 0 % (Normal) Baso (Absolute) 0.0 {x10E3/uL} (Normal) Range: 0.0-0.2 Eos (Absolute) 0.0 {x10E3/uL} (Normal) Range: 0.0-0.4 Monocytes(Absolute) 0.4 {x10E3/uL} (Normal) Range: 0.1-0.9 Lymphs (Absolute) 0.9 {x10E3/uL} (Normal) Range: 0.7-3.1 Neutrophils (Absolute) 5.1 {x10E3/uL} (Normal) Range: 1.4-7.0 Basos 0 % (Normal) Eos 0 % (Normal) Monocytes 6 % (Normal) Lymphs 13 % (Normal) Neutrophils 81 % (Normal) Platelets 404 {x10E3/uL} (Abnormal) Range: 150-379 RDW 16.6 % (Abnormal) Range: 12.3-15.4 MCHC 32.2 g/dL (Normal) Range: 31.5-35.7 MCH 27.8 pg (Normal) Range: 26.6-33.0 MCV 86 fL (Normal) Range: 79-97 Hematocrit 35.7 % (Normal) Range: 34.0-46.6 Hemoglobin 11.5 g/dL (Normal) Range: 11.1-15.9 RBC 4.13 {x10E6/uL} (Normal) Range: 3.77-5.28 Comments: Polychromasia presentOvalocytes present. WBC 6.4 {x10E3/uL} (Normal) Range: 3.4-10.8 :43 CBC W/Diff, Automated Comments: [facility] [address] [place], [place], [id number] Absolute Lymph 0.79 {X10_3/ul} (Abnormal) Range: 0.83-4.51 Absolute Neut 2.8 {X10_3/uL} (Normal) Range: 2.0-7.7 IM GRAN % 0.300 % (Normal) Range: 0.0-0.9 Comments: IG% - Immature Granulocytes (promyelocytes, myelocytes andmetamyelocytes) > 1% indicates that a LEFT SHIFT is Present. BASO% 0.3 % (Normal) Range: 0-1 EO% 0.0 % (Normal) Range: 0-5 MONO% 8.8 % (Normal) Range: 0-10 LY% 19.9 % (Normal) Range: 19-41 NEUT% 70.7 % (Abnormal) Range: 47-70 MPV 9.5 fL (Normal) Range: 6.2-12.0 PLT 441 K/mm3 (Normal) Range: 150-450 RDW SD 49.2 fL (Abnormal) Range: 35.1-43.9 RDW CV 15.2 % (Abnormal) Range: 11.6-14.6 MCHC 30.9 {g/gl} (Abnormal) Range: 32-36 MCH 28.2 pg (Normal) Range: 27.0-32.0 MCV 91.3 fL (Normal) Range: 81-99 HCT 35.9 % (Abnormal) Range: 37-47 HGB 11.1 g/dL (Abnormal) Range: 12.0-15.0 RBC 3.93 {M/mm3} (Abnormal) Range: 4.2-5.4 WBC 4.0 K/mm3 (Abnormal) Range: 4.4-11.0 :43 Comprehensive Metabolic Profil Comments: [facility] [address] [place], [place], [id number] GAP 7 (Normal) Range: 5-15 CO2 29.0 mmol/L (Normal) Range: 21.0-32.0 CL 107 mmol/L (Normal) Range: 98-107 K 3.9 mmol/L (Normal) Range: 3.5-5.1 NA 143 mmol/L (Normal) Range: 136-145 T BILI 0.40 mg/dL (Normal) Range: 0.20-1.00 ALT 26 U/L (Normal) Range: 12-78 ALK P 78 U/L (Normal) Range: 45-117 AST 26 U/L (Normal) Range: 15-37 CA 9.2 mg/dL (Normal) Range: 8.5-10.1 A/G 1.1 {RATIO} (Normal) Range: 0.9-2.4 GLOB 3.5 g/dL (Normal) Range: 2.3-3.5 ALB 3.8 g/dL (Normal) Range: 3.4-5.0 T PROT 7.3 g/dL (Normal) Range: 6.4-8.2 BUN/CRE 11.9 {RATIO} (Normal) Range: 10-20 EST GFR - AA 69 mL/min (Normal) Comments: GFR Calc EST GFR 57 mL/min (Abnormal) Comments: Non- GFR Calc CREAT,SERUM 1.01 mg/dL (Normal) Range: 0.55-1.02 Comments: The validity of the calculated GFR AND GFRAA in patients over70 years has not been determined. Clinical correlation isessential. BUN 12 mg/dL (Normal) Range: 7-18 GLU 94 mg/dL (Normal) Range: 70-110 57-Lmz-13598:10 LIPID PANEL (77030) Comments: PATIENT WAS FASTINGPERFORMED BY: [facility] Gbytkp1850 [facility] [id number] LDL/HDL Ratio 4.4 {ratio_units} (Abnormal) Range: 0.0-3.2 Comments: LDL/HDL Ratio Men Women 1/2 Avg.Risk 1.0 1.5 Av g.Risk 3.6 3.2 2X Avg.Risk 6.2 5.0 3X Avg.Risk 8.0 6.1 Comment: LDLCOM (Normal) Comments: Possible Familial Hypercholesterolemia. FH should be suspected whenfasting LDL cholesterol is above 189 mg/dL or non-HDL cholesterolis above 219 mg/dL. A family history of high cholesterol and heartdise ase in 1st degree relatives should be collected. J Clin Gngycmk3442;5:133-140 LDL Cholesterol Calc 209 mg/dL (Abnormal) Range: 0-99 VLDL Cholesterol Rocky 57 mg/dL (Abnormal) Range: 5-40 HDL Cholesterol 48 mg/dL (Normal) Triglycerides 285 mg/dL (Abnormal) Range: 0-149 Cholesterol, Total 314 mg/dL (Abnormal) Range: 100-199 :10 HEPATIC FUNCTION PANEL Comments: PATIENT WAS FASTINGPERFORMED BY: [facility] [id number] ([id number]) ALT (SGPT) 13 [iU]/L (Normal) Range: 0-32 AST (SGOT) 19 [iU]/L (Normal) Range: 0-40 Alkaline Phosphatase, S 75 [iU]/L (Normal) Range: 39-117 Bilirubin, Direct 0.08 mg/dL (Normal) Range: 0.00-0.40 Bilirubin, Total 0.2 mg/dL (Normal) Range: 0.0-1.2 Albumin, Serum 4.4 g/dL (Normal) Range: 3.5-4.8 Protein, Total, Serum 6.7 g/dL (Normal) Range: 6.0-8.5 :46 FRQDE-CNDJXSNEUMZ-SWITK ([id number]) Comments: PATIENT WAS FASTINGPERFORMED BY: [facility] [id number] AFP, Serum, Tumor Marker 5.5 ng/mL (Normal) Range: 0.0-8.3 Comments: Carmencita ECLIA methodology [id number]-Tno-880633:28 HgA1C , Office (40283) HgA1C , Office 5.7 % (Normal) Range: 4.6 - 7.1 :46 CBC W/AUTO DIFF WBC (04354) Comments: PATIENT WAS FASTINGPERFORMED BY: Wind[employer]70 [facility] [id number] Immature Grans (Abs) 0.0 {x10E3/uL} (Normal) Range: 0.0-0.1 Immature Granulocytes 0 % (Normal) Baso (Absolute) 0.0 {x10E3/uL} (Normal) Range: 0.0-0.2 Eos (Absolute) 0.0 {x10E3/uL} (Normal) Range: 0.0-0.4 Monocytes(Absolute) 0.2 {x10E3/uL} (Normal) Range: 0.1-0.9 Lymphs (Absolute) 0.7 {x10E3/uL} (Normal) Range: 0.7-3.1 Neutrophils (Absolute) 3.4 {x10E3/uL} (Normal) Range: 1.4-7.0 Basos 1 % (Normal) Eos 0 % (Normal) Monocytes 5 % (Normal) Lymphs 17 % (Normal) Neutrophils 77 % (Normal) Platelets 452 {x10E3/uL} (Abnormal) Range: 150-379 RDW 16.0 % (Abnormal) Range: 12.3-15.4 MCHC 32.4 g/dL (Normal) Range: 31.5-35.7 MCH 28.4 pg (Normal) Range: 26.6-33.0 MCV 88 fL (Normal) Range: 79-97 Hematocrit 35.8 % (Normal) Range: 34.0-46.6 Hemoglobin 11.6 g/dL (Normal) Range: 11.1-15.9 RBC 4.08 {x10E6/uL} (Normal) Range: 3.77-5.28 WBC 4.4 {x10E3/uL} (Normal) Range: 3.4-10.8 25-Pvq-380243:46 METABOLIC PANEL, COMPREHENSIVE Comments: PATIENT WAS FASTINGPERFORMED BY: [facility] HospitalYcdzcw4287 [facility] [id number] (63691) ALT (SGPT) 15 [iU]/L (Normal) Range: 0-32 AST (SGOT) 19 [iU]/L (Normal) Range: 0-40 Alkaline Phosphatase, S 74 [iU]/L (Normal) Range: 39-117 Bilirubin, Total 0.3 mg/dL (Normal) Range: 0.0-1.2 A/G Ratio 1.8 (Normal) Range: 1.2-2.2 Comments: Please note reference interval change Globulin, Total 2.5 g/dL (Normal) Range: 1.5-4.5 Albumin, Serum 4.6 g/dL (Normal) Range: 3.5-4.8 Protein, Total, Serum 7.1 g/dL (Normal) Range: 6.0-8.5 Calcium, Serum 9.7 mg/dL (Normal) Range: 8.7-10.3 Carbon Dioxide, Total 21 mmol/L (Normal) Range: 18-29 Chloride, Serum 102 mmol/L (Normal) Range: 96-106 Potassium, Serum 4.7 mmol/L (Normal) Range: 3.5-5.2 Sodium, Serum 144 mmol/L (Normal) Range: 134-144 BUN/Creatinine Ratio 11 (Normal) Range: 11-26 Comments: Effective December 04, 2016 BUN/Creatinine Ratio reference interval will be changing to: Age Male Female 0 days - 7 days 9 - 25 9 - 26 8 days - 30 days 8 - 32 10 - 33 1 month - 6 months 11 - 57 11 - 54 7 mo nths - 1 year - 71 20 - 71 2 years - 5 years 19 - 51 19 - 49 6 years - 12 years 14 - 34 13 - 32 13 years - 17 years 10 - 22 10 - 22 18 years - 59 years 9 - 20 9 - 23 >59 years 10 - 24 12 - 28 eGFR If Africn Am 71 mL/min/1.73 (Normal) eGFR If NonAfricn Am 62 mL/min/1.73 (Normal) Creatinine, Serum 0.92 mg/dL (Normal) Range: 0.57-1.00 BUN 10 mg/dL (Normal) Range: 8-27 Glucose, Serum 95 mg/dL (Normal) Range: 65-99 24-Mha-690619:46 TSH (11585) Comments: PATIENT WAS FASTINGPERFORMED BY: [employer]70 [facility] [id number] TSH 1.750 {uIU/mL} (Normal) Range: 0.450-4.500 44-Zei-425120:46 LIPID PANEL (11352) Comments: PATIENT WAS FASTINGPERFORMED BY: [facility]70 [facility] [id number] LDL/HDL Ratio 4.7 {ratio_units} (Abnormal) Range: 0.0-3.2 Comments: LDL/HDL Ratio Men Women 1/2 Avg.Risk 1.0 1.5 Av g.Risk 3.6 3.2 2X Avg.Risk 6.2 5.0 3X Avg.Risk 8.0 6.1 Comment: LDLCOM (Normal) Comments: Possible Familial Hypercholesterolemia. FH should be suspected whenfasting LDL cholesterol is above 189 mg/dL or non-HDL cholesterolis above 219 mg/dL. A family history of high cholesterol and heartdise ase in 1st degree relatives should be collected. J Clin Ssmoxpm8843;5:133-140 LDL Cholesterol Calc 201 mg/dL (Abnormal) Range: 0-99 VLDL Cholesterol Rocky 63 mg/dL (Abnormal) Range: 5-40 HDL Cholesterol 43 mg/dL (Normal) Triglycerides 316 mg/dL (Abnormal) Range: 0-149 Cholesterol, Total 307 mg/dL (Abnormal) Range: 100-199 97-Fbm-997490:46 CALCIFIDIOL (29773) VIT D 25 Comments: PATIENT WAS FASTINGPERFORMED BY: [facility] Hrjnqn1834 [facility] [id number] Vitamin D, 25-Hydroxy 38.5 ng/mL (Normal) Range: 30.0-100.0 Comments: Vitamin D deficiency has been defined by the [place] [facility] and an Endocrine Society practice guideline as alevel of serum 25-OH vitamin D less than 20 ng/mL (1,2).The Endocrine Society went on to further define vitamin Dinsufficiency as a level between 21 and 29 ng/mL (2).1. IOM ([place] of Medicine). 2010. Dietary reference intakes for calcium and D. [place]: The National Academies Press.2. Micky MF, Yohana NC, Kennedy PAL, et al. Evaluation, treatment, and prevention of vitamin D deficiency: an Endocrine Society clinical practice guideline. JCEM. 2010; 96(7):1911-30. 92-Tkn-760661:43 CBC W/Diff, Automated Comments: [facility] [address] [place], [place], [id number] Absolute Lymph 1.03 {X10_3/ul} (Normal) Range: 0.83-4.51 Absolute Neut 3.7 {X10_3/uL} (Normal) Range: 2.0-7.7 IM GRAN % 0.200 % (Normal) Range: 0.0-0.9 Comments: IG% - Immature Granulocytes (promyelocytes, myelocytes andmetamyelocytes) > 1% indicates that a LEFT SHIFT is Present. BASO% 0.2 % (Normal) Range: 0-1 EO% 0.0 % (Normal) Range: 0-5 MONO% 6.9 % (Normal) Range: 0-10 LY% 20.4 % (Normal) Range: 19-41 NEUT% 72.3 % (Abnormal) Range: 47-70 MPV 9.5 fL (Normal) Range: 6.2-12.0 PLT 385 K/mm3 (Normal) Range: 150-450 RDW SD 48.8 fL (Abnormal) Range: 35.1-43.9 RDW CV 15.2 % (Abnormal) Range: 11.6-14.6 MCHC 31.1 {g/gl} (Abnormal) Range: 32-36 MCH 28.4 pg (Normal) Range: 27.0-32.0 MCV 91.3 fL (Normal) Range: 81-99 HCT 34.7 % (Abnormal) Range: 37-47 HGB 10.8 g/dL (Abnormal) Range: 12.0-15.0 RBC 3.80 {M/mm3} (Abnormal) Range: 4.2-5.4 WBC 5.1 K/mm3 (Normal) Range: 4.4-11.0 58-Pmy-414136:43 Comprehensive Metabolic Profil Comments: [facility] [address] [place], [place], [address] GAP -4 (Abnormal) Range: 5-15 CO2 29.0 mmol/L (Normal) Range: 21.0-32.0 CL 108 mmol/L (Abnormal) Range: 98-107 K 4.0 mmol/L (Normal) Range: 3.5-5.1 NA 133 mmol/L (Abnormal) Range: 136-145 T BILI 0.30 mg/dL (Normal) Range: 0.20-1.00 ALT 25 U/L (Normal) Range: 12-78 ALK P 76 U/L (Normal) Range: 50-136 AST 21 U/L (Normal) Range: 15-37 CA 8.7 mg/dL (Normal) Range: 8.5-10.1 A/G 1.2 {RATIO} (Normal) Range: 0.9-2.4 GLOB 3.3 g/dL (Normal) Range: 2.3-3.5 ALB 3.8 g/dL (Normal) Range: 3.4-5.0 T PROT 7.1 g/dL (Normal) Range: 6.4-8.2 BUN/CRE 9.4 {RATIO} (Abnormal) Range: 10-20 EST GFR - AA 65 mL/min (Normal) Comments: GFR Calc EST GFR 54 mL/min (Abnormal) Comments: Non- GFR Calc CREAT,SERUM 1.06 mg/dL (Normal) Range: 0.55-1.20 Comments: The validity of the calculated GFR AND GFRAA in patients over70 years has not been determined. Clinical correlation isessential. BUN 10 mg/dL (Normal) Range: 7-18 GLU 86 mg/dL (Normal) Range: 70-110 62-Ryk-05012:30 Culture, Miscellaneous Comments: [facility] [address] [place], [place], [id number] CUM See Note (Normal) Comments: MOUTH AND TONGUE PLUS YEAST TONGUE GLOSSITIS DRY MOUTH Comments: MOUTH AND TONGUE/ PLUS YEASTMisc. CultureNo Yeast, Haemophilus, Streptococcus pneumoniae, beta-hemolytic Streptococcus or Staphyloco ccus aureus isolated. Gram StainGram Stain 2+ Epithelial cells 2+ Gram positive cocci 94-Wfu-702826:03 CBC W/Diff, Automated Comments: [facility] [address] [place], [place], [address] Absolute Lymph 0.88 {X10_3/ul} (Normal) Range: 0.83-4.51 Absolute Neut 3.7 {X10_3/uL} (Normal) Range: 2.0-7.7 IM GRAN % 0.200 % (Normal) Range: 0.0-0.9 Comments: IG% - Immature Granulocytes (promyelocytes, myelocytes andmetamyelocytes) > 1% indicates that a LEFT SHIFT is Present. BASO% 0.4 % (Normal) Range: 0-1 EO% 0.0 % (Normal) Range: 0-5 MONO% 8.7 % (Normal) Range: 0-10 LY% 17.5 % (Abnormal) Range: 19-41 NEUT% 73.2 % (Abnormal) Range: 47-70 MPV 9.8 fL (Normal) Range: 6.2-12.0 PLT 403 K/mm3 (Normal) Range: 150-450 RDW SD 47.4 fL (Abnormal) Range: 35.1-43.9 RDW CV 14.5 % (Normal) Range: 11.6-14.6 MCHC 31.3 {g/gl} (Abnormal) Range: 32-36 MCH 28.2 pg (Normal) Range: 27.0-32.0 MCV 90.1 fL (Normal) Range: 81-99 HCT 36.4 % (Abnormal) Range: 37-47 HGB 11.4 g/dL (Abnormal) Range: 12.0-15.0 RBC 4.04 {M/mm3} (Abnormal) Range: 4.2-5.4 WBC 5.0 K/mm3 (Normal) Range: 4.4-11.0 56-Tmc-588248:03 Comprehensive Metabolic Profil Comments: [facility] [address] [place], [place], [id number] GAP 7 (Normal) Range: 5-15 CO2 29.0 mmol/L (Normal) Range: 21.0-32.0 CL 100 mmol/L (Normal) Range: 98-107 K 4.2 mmol/L (Normal) Range: 3.5-5.1 NA 136 mmol/L (Normal) Range: 136-145 T BILI 0.30 mg/dL (Normal) Range: 0.20-1.00 ALT 20 U/L (Normal) Range: 12-78 ALK P 82 U/L (Normal) Range: 50-136 AST 22 U/L (Normal) Range: 15-37 CA 9.8 mg/dL (Normal) Range: 8.5-10.1 A/G 1.0 {RATIO} (Normal) Range: 0.9-2.4 GLOB 3.9 g/dL (Abnormal) Range: 2.3-3.5 ALB 3.8 g/dL (Normal) Range: 3.4-5.0 T PROT 7.7 g/dL (Normal) Range: 6.4-8.2 BUN/CRE 10.1 {RATIO} (Normal) Range: 10-20 EST GFR - AA 63 mL/min (Normal) Comments: GFR Calc EST GFR 52 mL/min (Abnormal) Comments: Non- GFR Calc CREAT,SERUM 1.09 mg/dL (Normal) Range: 0.55-1.20 Comments: The validity of the calculated GFR AND GFRAA in patients over70 years has not been determined. Clinical correlation isessential. BUN 11 mg/dL (Normal) Range: 7-18 GLU 83 mg/dL (Normal) Range: 70-110 :16 Vitamin D Hydroxy (09705) Comments: PATIENT WAS FASTINGPERFORMED BY: [facility] [id number] Vitamin D, 25-Hydroxy 56.1 ng/mL (Normal) Range: 30.0-100.0 Comments: Vitamin D deficiency has been defined by the [place] ofMedicine and an Endocrine Society practice guideline as alevel of serum 25-OH vitamin D less than 20 ng/mL (1,2).The Endocrine Society went on to further define vitamin Dinsufficiency as a level between 21 and 29 ng/mL (2).1. IOM ([place] of Medicine). 2010. Dietary reference intakes for calcium and D. [place]: The National Academies Press.2. Micky MF, Yohana NC, Mateo-Quintin PAL, et al. Evaluation, treatment, and prevention of vitamin D deficiency: an Endocrine Society clinical practice guideline. JCEM. 2010; 96(7):1911-30. :16 [id number]-[id number] (06169) Comments: PATIENT WAS FASTINGPERFORMED BY: [employer]6370 [facility] [id number] AFP, Serum, Tumor Marker 5.3 ng/mL (Normal) Range: 0.0-8.3 Comments: Carmencita ECLIA methodology :16 METABOLIC PANEL, Comments: PATIENT WAS FASTINGPERFORMED BY: WindSim70 [facility] [id number] Information: [id number] COMPREHENSIVE (00135) ALT (SGPT) 14 [iU]/L (Normal) Range: 0-32 AST (SGOT) 25 [iU]/L (Normal) Range: 0-40 Alkaline Phosphatase, S 77 [iU]/L (Normal) Range: 39-117 Bilirubin, Total 0.4 mg/dL (Normal) Range: 0.0-1.2 A/G Ratio 1.6 (Normal) Range: 1.1-2.5 Globulin, Total 2.6 g/dL (Normal) Range: 1.5-4.5 Albumin, Serum 4.2 g/dL (Normal) Range: 3.5-4.8 Protein, Total, Serum 6.8 g/dL (Normal) Range: 6.0-8.5 Calcium, Serum 9.6 mg/dL (Normal) Range: 8.7-10.3 Carbon Dioxide, Total 22 mmol/L (Normal) Range: 18-29 Chloride, Serum 98 mmol/L (Normal) Range: 97-108 Potassium, Serum 4.6 mmol/L (Normal) Range: 3.5-5.2 Sodium, Serum 141 mmol/L (Normal) Range: 134-144 BUN/Creatinine Ratio 13 (Normal) Range: 11-26 eGFR If Africn Am 67 mL/min/1.73 (Normal) eGFR If NonAfricn Am 59 mL/min/1.73 (Abnormal) Creatinine, Serum 0.97 mg/dL (Normal) Range: 0.57-1.00 BUN 13 mg/dL (Normal) Range: 8-27 Glucose, Serum 85 mg/dL (Normal) Range: 65-99 29-Wpa-50516:16 LIPID PANEL (78773) Comments: PATIENT WAS FASTINGPERFORMED BY: [facility]CoM[facility] HospitalNitocx9397 [facility] [id number]; non-emergent till apt with Dr. Perea LDL/HDL Ratio 4.6 {ratio_units} (Abnormal) Range: 0.0-3.2 Comments: LDL/HDL Ratio Men Women 1/2 Avg.Risk 1.0 1.5 Av g.Risk 3.6 3.2 2X Avg.Risk 6.2 5.0 3X Avg.Risk 8.0 6.1 LDL Cholesterol Calc 196 mg/dL (Abnormal) Range: 0-99 VLDL Cholesterol Rocky 55 mg/dL (Abnormal) Range: 5-40 HDL Cholesterol 43 mg/dL (Normal) Comments: According to ATP-III Guidelines, HDL-C >59 mg/dL is considered anegative risk factor for CHD. Triglycerides 273 mg/dL (Abnormal) Range: 0-149 Cholesterol, Total 294 mg/dL (Abnormal) Range: 100-199 9-Wre-601089:21 ANTINUCLEAR ANTIBODIES DIRECT Comments: [facility] (refer to report for specific site)refer to report for address and phone number RENUKA-DIRECT Negative (Normal) Comments: Performed at: - [facility] [id number] Director: Sudheer Russell PhD, Phone: [phone] 7-Ytd-625663:21 CBC W/Diff, Automated Comments: [facility] [address] [place], [place], [id number] Absolute Lymph 1.13 {X10_3/ul} (Normal) Range: 0.83-4.51 Absolute Neut 3.3 {X10_3/uL} (Normal) Range: 2.0-7.7 IM GRAN % 0.200 % (Normal) Range: 0.0-0.9 Comments: IG% - Immature Granulocytes (promyelocytes, myelocytes andmetamyelocytes) > 1% indicates that a LEFT SHIFT is Present. BASO% 0.2 % (Normal) Range: 0-1 EO% 0.0 % (Normal) Range: 0-5 MONO% 9.9 % (Normal) Range: 0-10 LY% 22.8 % (Normal) Range: 19-41 NEUT% 66.9 % (Normal) Range: 47-70 MPV 9.3 fL (Normal) Range: 6.2-12.0 PLT 413 K/mm3 (Normal) Range: 150-450 RDW SD 45.0 fL (Abnormal) Range: 35.1-43.9 RDW CV 13.9 % (Normal) Range: 11.6-14.6 MCHC 32.1 {g/gl} (Normal) Range: 32-36 MCH 28.8 pg (Normal) Range: 27.0-32.0 MCV 89.6 fL (Normal) Range: 81-99 HCT 36.1 % (Abnormal) Range: 37-47 HGB 11.6 g/dL (Abnormal) Range: 12.0-15.0 RBC 4.03 {M/mm3} (Abnormal) Range: 4.2-5.4 WBC 5.0 K/mm3 (Normal) Range: 4.4-11.0 5-Mmv-213568:21 CCP IgG Antibodies Comments: [facility] (refer to report for specific site)refer to report for address and phone number ANTI-CCP [id number] 8 {units} (Normal) Range: 0-19 Comments: Negative <20 Weak positive 20 - 39 Moderate positive 40 - 59 Strong positive >59 8-Rfp-222296:21 Comprehensive Metabolic Profil Comments: [facility] [address] [place], [address] GAP 7 (Normal) Range: 5-15 CO2 29.0 mmol/L (Normal) Range: 21.0-32.0 CL 106 mmol/L (Normal) Range: 98-107 K 3.8 mmol/L (Normal) Range: 3.5-5.1 NA 142 mmol/L (Normal) Range: 136-145 T BILI 0.40 mg/dL (Normal) Range: 0.20-1.00 ALT 30 U/L (Normal) Range: 12-78 ALK P 84 U/L (Normal) Range: 50-136 AST 29 U/L (Normal) Range: 15-37 CA 9.0 mg/dL (Normal) Range: 8.5-10.1 A/G 1.0 {RATIO} (Normal) Range: 0.9-2.4 GLOB 3.8 g/dL (Abnormal) Range: 2.3-3.5 ALB 3.7 g/dL (Normal) Range: 3.4-5.0 T PROT 7.5 g/dL (Normal) Range: 6.4-8.2 BUN/CRE 6.9 {RATIO} (Abnormal) Range: 10-20 EST GFR - AA 69 mL/min (Normal) Comments: GFR Calc EST GFR 57 mL/min (Abnormal) Comments: Non- GFR Calc CREAT,SERUM 1.01 mg/dL (Normal) Range: 0.55-1.20 Comments: The validity of the calculated GFR AND GFRAA in patients over70 years has not been determined. Clinical correlation isessential. BUN 7 mg/dL (Normal) Range: 7-18 GLU 87 mg/dL (Normal) Range: 70-110 8-Yux-460945:21 Hep B Surface Antibodies Comments: [facility] (refer to report for specific site)refer to report for address and phone number Hep B Cecille AB Non Reactive (Normal) Comments: Non Reactive: Inconsistent with immunity, less than 10 mIU/mL Reactive: Consistent with immunity, greater than 9.9 mIU/ mL 5-Gme-967877:21 Hepatitis B Surface Ag Comments: [facility] (refer to report for specific site)refer to report for address and phone number HB SURF AG Negative (Normal) Comments: Performed at: [facility] [address] [id number] Director: Sudheer Russell PhD, Phone: [phone] at: [address] [id number] Director: Kirby Fitch MD, Phone: [phone] 5-Bia-866275:21 Hepatitis C Antibodies Comments: [facility] (refer to report for specific site)refer to report for address and phone number HEP C AB 0.2 {s/co_ratio} (Normal) Range: 0.0-0.9 Comments: Negative: < 0.8 Indeterminate: 0.8 - 0.9 Positive: > 0.9 The CDC recommends that a positive HCV antibody result be followed up with a HCV Nucleic Acid Amplification test ([id number]). 0-Jva-148084:21 Rheumatoid Factor Comments: [facility] [address] [place], [place], [address] RHEUMATOID FAC < 10.0 {IU/mL} (Normal) 24-Wsx-68736:16 CBC with auto diff Comments: PATIENT WAS FASTINGPERFORMED BY: [facility] [id number] Information: [id number] (41561) Immature Grans (Abs) 0.0 {x10E3/uL} (Normal) Range: 0.0-0.1 Immature Granulocytes 0 % (Normal) Baso (Absolute) 0.0 {x10E3/uL} (Normal) Range: 0.0-0.2 Eos (Absolute) 0.0 {x10E3/uL} (Normal) Range: 0.0-0.4 Monocytes(Absolute) 0.5 {x10E3/uL} (Normal) Range: 0.1-0.9 Lymphs (Absolute) 0.9 {x10E3/uL} (Normal) Range: 0.7-3.1 Neutrophils (Absolute) 3.8 {x10E3/uL} (Normal) Range: 1.4-7.0 Basos 0 % (Normal) Eos 0 % (Normal) Monocytes 9 % (Normal) Lymphs 17 % (Normal) Neutrophils 74 % (Normal) Platelets 362 {x10E3/uL} (Normal) Range: 150-379 RDW 15.4 % (Normal) Range: 12.3-15.4 MCHC 32.3 g/dL (Normal) Range: 31.5-35.7 MCH 28.3 pg (Normal) Range: 26.6-33.0 MCV 88 fL (Normal) Range: 79-97 Hematocrit 36.2 % (Normal) Range: 34.0-46.6 Hemoglobin 11.7 g/dL (Normal) Range: 11.1-15.9 RBC 4.13 {x10E6/uL} (Normal) Range: 3.77-5.28 WBC 5.2 {x10E3/uL} (Normal) Range: 3.4-10.8 :16 LIPID PANEL (12065) Comments: PATIENT WAS FASTINGPERFORMED BY: [facility]Co[facility] HospitalTphmtf6087 [facility] [id number] LDL/HDL Ratio 5.7 {ratio_units} (Abnormal) Range: 0.0-3.2 Comments: LDL/HDL Ratio Men Women 1/2 Avg.Risk 1.0 1.5 Av g.Risk 3.6 3.2 2X Avg.Risk 6.2 5.0 3X Avg.Risk 8.0 6.1 Comment: LDLCOM (Normal) Comments: Possible Familial Hypercholesterolemia. FH should be suspected whenfasting LDL cholesterol is above 189 mg/dL or non-HDL cholesterolis above 219 mg/dL. A family history of high cholesterol and heartdise ase in 1st degree relatives should be collected. J Clin [id number];5:133-140 LDL Cholesterol Calc 223 mg/dL (Abnormal) Range: 0-99 VLDL Cholesterol Rocky 63 mg/dL (Abnormal) Range: 5-40 HDL Cholesterol 39 mg/dL (Abnormal) Comments: According to ATP-III Guidelines, HDL-C >59 mg/dL is considered anegative risk factor for CHD. Triglycerides 313 mg/dL (Abnormal) Range: 0-149 Cholesterol, Total 325 mg/dL (Abnormal) Range: 100-199 :16 METABOLIC PANEL, COMPREHENSIVE Comments: PATIENT WAS FASTINGPERFORMED BY: [employer] [place] [id number] ([id number]) ALT (SGPT) 13 [iU]/L (Normal) Range: 0-32 AST (SGOT) 19 [iU]/L (Normal) Range: 0-40 Alkaline Phosphatase, S 81 [iU]/L (Normal) Range: 39-117 Bilirubin, Total 0.4 mg/dL (Normal) Range: 0.0-1.2 A/G Ratio 2.0 (Normal) Range: 1.1-2.5 Globulin, Total 2.2 g/dL (Normal) Range: 1.5-4.5 Albumin, Serum 4.5 g/dL (Normal) Range: 3.5-4.8 Protein, Total, Serum 6.7 g/dL (Normal) Range: 6.0-8.5 Calcium, Serum 9.9 mg/dL (Normal) Range: 8.7-10.3 Carbon Dioxide, Total 25 mmol/L (Normal) Range: 18-29 Chloride, Serum 99 mmol/L (Normal) Range: 97-108 Potassium, Serum 4.6 mmol/L (Normal) Range: 3.5-5.2 Sodium, Serum 140 mmol/L (Normal) Range: 134-144 BUN/Creatinine Ratio 10 (Abnormal) Range: 11-26 eGFR If Africn Am 61 mL/min/1.73 (Normal) eGFR If NonAfricn Am 53 mL/min/1.73 (Abnormal) Creatinine, Serum 1.05 mg/dL (Abnormal) Range: 0.57-1.00 BUN 11 mg/dL (Normal) Range: 8-27 Glucose, Serum 87 mg/dL (Normal) Range: 65-99 :16 Vitamin D Hydroxy ([id number]) Comments: PATIENT WAS FASTINGPERFORMED BY: [id number] [id number] Vitamin D, 25-Hydroxy 35.5 ng/mL (Normal) Range: 30.0-100.0 Comments: Vitamin D deficiency has been defined by the [place] of[employer] and an Endocrine Society practice guideline as alevel of serum 25-OH vitamin D less than 20 ng/mL (1,2).The Endocrine Society went on to further define vitamin Dinsufficiency as a level between 21 and 29 ng/mL (2).1. IOM ([place] of [employer]). 2010. Dietary reference intakes for calcium and D. [place]: The National Academies Press.2. Micky MF, Yohana COBURN, Kennedy PAL, et al. Evaluation, treatment, and prevention of vitamin D deficiency: an Endocrine Society clinical practice guideline. JCEM. 2010; 96(7):1911-30. [id number] Comprehensive Metabolic Profil Comments: [facility] [id number] [place], [address] GAP 8 (Normal) Range: 5-15 CO2 29.0 mmol/L (Normal) Range: 21.0-32.0 CL 106 mmol/L (Normal) Range: 98-107 K 4.0 mmol/L (Normal) Range: 3.5-5.1 NA 143 mmol/L (Normal) Range: 136-145 T BILI 0.30 mg/dL (Normal) Range: 0.20-1.00 ALT 18 U/L (Normal) Range: 12-78 ALK P 89 U/L (Normal) Range: 50-136 AST 24 U/L (Normal) Range: 15-37 CA 9.6 mg/dL (Normal) Range: 8.5-10.1 A/G 0.9 {RATIO} (Normal) Range: 0.9-2.4 GLOB 3.9 g/dL (Abnormal) Range: 2.3-3.5 ALB 3.7 g/dL (Normal) Range: 3.4-5.0 T PROT 7.6 g/dL (Normal) Range: 6.4-8.2 BUN/CRE 10.1 {RATIO} (Normal) Range: 10-20 EST GFR - AA 63 mL/min (Normal) Comments: GFR Calc EST GFR 52 mL/min (Abnormal) Comments: Non- GFR Calc CREAT,SERUM 1.09 mg/dL (Normal) Range: 0.55-1.20 Comments: The validity of the calculated GFR AND GFRAA in patients over70 years has not been determined. Clinical correlation isessential. BUN 11 mg/dL (Normal) Range: 7-18 GLU 96 mg/dL (Normal) Range: 70-110 55-Ytw-74848:22 Lipase Comments: [facility] [address] [place], [address] LIPASE 583 U/L (Abnormal) Range: 73-393 :22 Lipid Profile Comments: [facility] [address] [place], [address] VLDL 55 mg/dL (Abnormal) Range: 5-40 LDL 214 mg/dL (Abnormal) Range: 0-130 HDL 43 mg/dL (Normal) Comments: Reference Range HDL <40 mg/dL Low HDL Cholesterol HDL >or= 60 mg/dL High HDL Cholesterol TRIG 273 mg/dL (Abnormal) Comments: Serum Triglycerides Reference Interval Normal <150 mg/dL Borderline high 150 - 199 mg/dL High 200 - 499 mg/dL Very High > or = 500 mg/dL CHOL 312 mg/dL (Abnormal) Comments: <200 mg/dL Desirable 200-240 mg/dL Borderline >240 mg/dL High Risk 19-Nwj-33165:22 Vitamin D,25 Hydroxy Comments: [facility] [address] [place], [address] Vitamin D 25-OH 37.0 ng/mL (Normal) Comments: Vitamin D 25(OH) Status Range Deficiency <20 ng/mL (50nmol/L) Insuffciency 20 - 30 ng/mL (50 - 75 nmol/L) Sufficiency 30 - 100 ng/mL (75 - 250 nmol/L) Toxicity >100 ng/mL (>250 nmol/L) 1-Pgz-059173:10 Culture, Nose Comments: [facility] [address] [place], [address] CUN See Note (Normal) Comments: Gram StainGram Stain 1+ White Blood Cells Rare Red Blood Cells No organisms seen Nasoph. CultNo Haemophilus, Streptococcus pneumoniae, beta-hemolytic Streptococcus or Staphylococcus aureus isolated. : EGD (PICK SITE) See Note (Normal) Comments: [facility] [address] [place], [place], [address] 00 Comments: Patient: BRANDIE KUO : 1945 (70/F) Acct Num: [id number] Phys: Pelon MONROE,Rylan Unit Num: [id number] Loc: EN Specimen: [id number] Received: 06/16/1549 Spec Type: EGD B IOPSY TISSUES TISSUES: COMMENT A - The results of immunohistochemistry for Helicobacter pylori will be reportedseparately ([id number]). GROSS DESCRIPTION A - Received is one contai ner labeled with the patient name and designated gastric antrum biopsy. The specimen consists of one irregular fragment of light burciaga soft tissue that measures 0.3 x 0.1 x 0.1 cm. The specimen is tot allysubmitted in one cassette. B - Received is one container labeled with the patient name and designated distal esophagus biopsy. The specimen consists of one irregular fragment of light burciaga so ft tissue that measures 0.6 x 0.2 x < 0.1 cm. The specimen is totally submitted in one cassette. C - Received is one container labeled with the patient name and designated proximal esophagus. The specimen consists of one irregular fragment of light burciaga soft tissue that measures 0.7 x 0.3 x < 0.1 cm. The specimen is totally submitted in one cassette. D - Received is one container l abeled with the patient name and designated random colon biopsy. The specimen consists of multiple irregular fragments oflight burciaga soft tissue that in aggregate measure 1.5 x 1 x 0.1 cm. The specime n is totally submitted in one cassette. / AM: 06/16/15 TC:3 CPT: 61587 x4 HEADER OPERATION: EGD and colonoscopy with biopsies PRE-OP DIAGNOSIS: Reflux, epigastric pain, diverticulitis TISSUE SUBMITTED: A - Gastric antrum biopsy, B - Distal esophagus biopsy, C - Proximal esophagus biopsy, D - Random colonic biopsy MICROSCOPIC DESCRIPTION Slides are reviewed. A - Sections show small collections and groups of plasma cells in the mucosa. Active inflammation is not present. These findings are consistent with mild chronic gastritis. MICROSCOPIC DIAGNOSIS A. Gastric antrum , biopsy: Gastritis. B. Distal esophagus, biopsy: Fragments of squamous epithelium with no significant pathologic change. No evidence of esophagitis. C. Proximal esophagus, biops y: No pathologic change. D. Colon, random biopsy: Melanosis coli. AM: 06/17/15 Signed Edgard Betancur 06/18/15 <signature on file> : IMMUNOHISTOCHEMISTRY See Note (Normal) Comments: [facility] [address] [place], [place], [address] 00 Comments: Patient: BRANDIE KUO : 1945 (70/F) Acct Num: [id number] Phys: Pelon MONROE,Rylan Unit Num: [id number] Loc: EN Specimen: [id number] Received: 06/18/151003 Spec Type: IMMU NO TISSUES TISSUES: SPECIMEN INFORMATION: Tissue Source: Gastric antrum, biopsy Clinical Info: Reflux, epigastric pain Specimen Number: [id number] CPT code: 79635 METHODOLO GY: Deparaffinized sections of prefer/formalin-fixed tissue or PAP/DQ stained slides are incubated with monoclonal/polyclonal antibodies/oligonucleotide probes. Localization is made via biotin free immunoperoxidase method. Appropriate controls are performed and reacted as expected. Results on target cell population are indicated in the following table: RESULTS: ANTIBODY / CLONE RESULT H Pylori (polyclonal) negative These tests were developed and their performance characteristics determined by [facility]. They may not have been cleared or approved by the U.S. Food and Drug Administration. The FDA has determined that such clearance or approval is not necessary. INTERPRETATION: Gastric antrum, biopsy: Negative for H elicobacter pylori organisms. SJ: 06/18/15 PHYSICIAN AND INSTITUTION [facility] [address] [place], [place] [address] Signed Bobby Yadav 06/18/15 <signature on file> 29-Wiq-82279:59 Urinalysis, Office (61075) UA - LEUKOCYTE ESTERASE Trace (Normal) UA - NITRITE Negative (Normal) URINE UROBILINGN MIKI TIMED 2 mg/dL (Normal) UA - PROTEIN Trace mg/dL (Normal) UA - PH 8.0 (Normal) UA - BLOOD Negative (Normal) UA - SPECIFIC GRAVITY 1.020 (Normal) UA - KETONES Small mg/dL (Normal) UA - BILIRUBIN Small (Normal) UA - GLUCOSE Negative (Normal) 01-Ics-26220:34 URINE MAHENDRA CULTURE-IDENTIFICATN Comments: PATIENT NOT FASTINGPERFORMED BY: [place] 9414370 [facility] [id number] Information: [id number] ([id number]) Result 1 BETAGB (Abnormal) Comments: Beta hemolytic Streptococcus, group B25,000- 50,000 colony forming units per mLPenicillin and ampicillin are drugs of choice for treatment ofbeta-hemolytic streptococcal infections. Susceptibility testin g ofpenicillins and other beta-lactam agents approved by the FDA fortreatment of beta-hemolytic streptococcal infections need not beperformed routinely because nonsusceptible isolates are extremelyrare in any beta-hemolytic streptococcus and have not been reportedfor Streptococcus pyogenes (group A). (CLSI 2011)Mixed urogenital flora25,000-50,000 colony forming units per mL Urine Final report (Abnormal) Culture,Comprehensive 3-Dez-127540:44 URINE MAHENDRA CULTURE-MIKI COL Comments: PATIENT NOT FASTINGPERFORMED BY: [facility]6[address] [facility] [id number] Information: SRC:URT [id number] COUNT ([id number]) Result 2 BETAGB (Abnormal) Comments: Beta hemolytic Streptococcus, group B25,000- 50,000 colony forming units per mLPenicillin and ampicillin are drugs of choice for treatment ofbeta-hemolytic streptococcal infections. Susceptibility testin g ofpenicillins and other beta-lactam agents approved by the FDA fortreatment of beta-hemolytic streptococcal infections need not beperformed routinely because nonsusceptible isolates are extremelyrare in any beta-hemolytic streptococcus and have not been reportedfor Streptococcus pyogenes (group A). (CLSI 2011) S = Susceptible; I = Intermediate; R = Resistant P = Positive ; N = Negative MICS are expressed in micrograms per mL Antibiotic RSLT#1 RSLT#2 RSLT#3 RSLT#4Ciprofloxacin SLevofloxacin SNitrofu rantoin SPenicillin STetracycline RVancomycin S Result 1 Enterococcus faecalis Comments: 10,000-25,000 colony forming units per mLNote: this isolate is vancomycin-susceptible.This information is provided for epidemiologic purposes only:vancomycin is not among the antibiotics rec ommended for (Abnormal) therapyof urinary tract infections caused by Enterococcus.For Enterococcus species, cephalosporins, aminoglycosides (except forhigh-level resistance screening), clindamycin, and trimethoprim-sulfametho xazole are not effective clinically. Fluoroquinolones areused primarily for treating urinary tract infections. (CLSI, E145-U55,2009) Urine Final report (Abnormal) Culture,Comprehensive 3-Beq-249618:12 Urinalysis, Office (94129) UA - LEUKOCYTE ESTERASE Negative (Normal) UA - NITRITE Negative (Normal) URINE UROBILINGN MIKI TIMED Normal mg/dL (Normal) UA - PROTEIN Negative mg/dL (Normal) UA - PH 7.0 (Normal) UA - BLOOD Negative (Normal) UA - SPECIFIC GRAVITY 1.020 (Normal) UA - KETONES Negative mg/dL (Normal) UA - BILIRUBIN Negative (Normal) UA - GLUCOSE Negative (Normal) 08-Jun-20158:26 CBC W/AUTO DIFF WBC Comments: PATIENT WAS FASTINGPERFORMED BY: [facility] Nolvbb5936 [facility] [id number] Information: [id number] (86023) Immature Grans (Abs) 0.0 {x10E3/uL} (Normal) Range: 0.0-0.1 Immature Granulocytes 0 % (Normal) Baso (Absolute) 0.0 {x10E3/uL} (Normal) Range: 0.0-0.2 Eos (Absolute) 0.0 {x10E3/uL} (Normal) Range: 0.0-0.4 Monocytes(Absolute) 0.3 {x10E3/uL} (Normal) Range: 0.1-0.9 Lymphs (Absolute) 1.0 {x10E3/uL} (Normal) Range: 0.7-3.1 Neutrophils (Absolute) 3.1 {x10E3/uL} (Normal) Range: 1.4-7.0 Basos 0 % (Normal) Eos 0 % (Normal) Monocytes 7 % (Normal) Lymphs 23 % (Normal) Neutrophils 70 % (Normal) Platelets 359 {x10E3/uL} (Normal) Range: 150-379 RDW 16.0 % (Abnormal) Range: 12.3-15.4 MCHC 32.5 g/dL (Normal) Range: 31.5-35.7 MCH 28.9 pg (Normal) Range: 26.6-33.0 MCV 89 fL (Normal) Range: 79-97 Hematocrit 37.8 % (Normal) Range: 34.0-46.6 Hemoglobin 12.3 g/dL (Normal) Range: 11.1-15.9 RBC 4.26 {x10E6/uL} (Normal) Range: 3.77-5.28 WBC 4.4 {x10E3/uL} (Normal) Range: 3.4-10.8 :26 Vitamin D Hydroxy (97427) Comments: PATIENT WAS FASTINGPERFORMED BY: [facility]6[address] [facility] [id number] Vitamin D, 25-Hydroxy 36.5 ng/mL (Normal) Range: 30.0-100.0 Comments: Vitamin D deficiency has been defined by the [place] [facility] and an Endocrine Society practice guideline as alevel of serum 25-OH vitamin D less than 20 ng/mL (1,2).The Endocrine Society went on to further define vitamin Dinsufficiency as a level between 21 and 29 ng/mL (2).1. IOM ([place] of Medicine). 2010. Dietary reference intakes for calcium and D. [place]: The National Academies Press.2. Micky MF, Yohana NC, Kennedy PAL, et al. Evaluation, treatment, and prevention of vitamin D deficiency: an Endocrine Society clinical practice guideline. JCEM. 2010; 96(7):1911-30. :26 METABOLIC PANEL, COMPREHENSIVE Comments: PATIENT WAS FASTINGPERFORMED BY: [employer]6[address] [facility] HospitalVF CorporationRuther[facility] [id number] (48999) ALT (SGPT) 13 [iU]/L (Normal) Range: 0-32 AST (SGOT) 23 [iU]/L (Normal) Range: 0-40 Alkaline Phosphatase, S 78 [iU]/L (Normal) Range: 39-117 Bilirubin, Total 0.4 mg/dL (Normal) Range: 0.0-1.2 A/G Ratio 1.7 (Normal) Range: 1.1-2.5 Globulin, Total 2.5 g/dL (Normal) Range: 1.5-4.5 Albumin, Serum 4.3 g/dL (Normal) Range: 3.5-4.8 Protein, Total, Serum 6.8 g/dL (Normal) Range: 6.0-8.5 Calcium, Serum 9.9 mg/dL (Normal) Range: 8.7-10.3 Carbon Dioxide, Total 24 mmol/L (Normal) Range: 18-29 Chloride, Serum 100 mmol/L (Normal) Range: 97-108 Potassium, Serum 4.5 mmol/L (Normal) Range: 3.5-5.2 Sodium, Serum 141 mmol/L (Normal) Range: 134-144 BUN/Creatinine Ratio 9 (Abnormal) Range: 11-26 eGFR If Africn Am 64 mL/min/1.73 (Normal) eGFR If NonAfricn Am 55 mL/min/1.73 (Abnormal) Creatinine, Serum 1.02 mg/dL (Abnormal) Range: 0.57-1.00 BUN 9 mg/dL (Normal) Range: 8-27 Glucose, Serum 85 mg/dL (Normal) Range: 65-99 08-Jun-20158:26 LIPID PANEL (69707) Comments: PATIENT WAS FASTINGPERFORMED BY: [facility]6[address] [facility] [id number] LDL/HDL Ratio 5.8 {ratio_units} (Abnormal) Range: 0.0-3.2 Comments: LDL/HDL Ratio Men Women 1/2 Avg.Risk 1.0 1.5 Av g.Risk 3.6 3.2 2X Avg.Risk 6.2 5.0 3X Avg.Risk 8.0 6.1 LDL Cholesterol Calc 254 mg/dL (Abnormal) Range: 0-99 VLDL Cholesterol Rocky 50 mg/dL (Abnormal) Range: 5-40 HDL Cholesterol 44 mg/dL (Normal) Comments: According to ATP-III Guidelines, HDL-C >59 mg/dL is considered anegative risk factor for CHD. Triglycerides 250 mg/dL (Abnormal) Range: 0-149 Cholesterol, Total 348 mg/dL (Abnormal) Range: 100-199 :26 GVFMS-VBYMAPQFSER-[id number] (78679) Comments: PATIENT WAS FASTINGPERFORMED BY: [employer]6[address] [facility] [id number] AFP, Serum, Tumor Marker 5.8 ng/mL (Normal) Range: 0.0-8.3 Comments: Carmencita ECLIA methodology :26 LIPASE (25551) Comments: PATIENT WAS FASTINGPERFORMED BY: [employer]6[address] [facility] [id number] Lipase, Serum 117 U/L (Abnormal) Range: 0-59 :11 Comp. Metabolic Panel (14) Comments: PATIENT NOT FASTINGPERFORMED BY: [employer]6[address] [facility] [id number] Information: [id number] ALT (SGPT) 11 [iU]/L (Normal) Range: 0-32 AST (SGOT) 21 [iU]/L (Normal) Range: 0-40 Alkaline Phosphatase, S 74 [iU]/L (Normal) Range: 39-117 Bilirubin, Total 0.3 mg/dL (Normal) Range: 0.0-1.2 A/G Ratio 1.8 (Normal) Range: 1.1-2.5 Globulin, Total 2.4 g/dL (Normal) Range: 1.5-4.5 Albumin, Serum 4.2 g/dL (Normal) Range: 3.5-4.8 Protein, Total, Serum 6.6 g/dL (Normal) Range: 6.0-8.5 Calcium, Serum 9.5 mg/dL (Normal) Range: 8.7-10.3 Carbon Dioxide, Total 24 mmol/L (Normal) Range: 18-29 Chloride, Serum 103 mmol/L (Normal) Range: 97-108 Potassium, Serum 4.2 mmol/L (Normal) Range: 3.5-5.2 Sodium, Serum 141 mmol/L (Normal) Range: 134-144 BUN/Creatinine Ratio 12 (Normal) Range: 11-26 eGFR If Africn Am 73 mL/min/1.73 (Normal) eGFR If NonAfricn Am 64 mL/min/1.73 (Normal) Creatinine, Serum 0.91 mg/dL (Normal) Range: 0.57-1.00 BUN 11 mg/dL (Normal) Range: 8-27 Glucose, Serum 89 mg/dL (Normal) Range: 65-99 :11 Lipid Panel With LDL/HDL Comments: PATIENT NOT FASTINGPERFORMED BY: Enohm Uslayq6204 [facility] [id number]; will review at 02/09 appt Ratio LDL/HDL Ratio 5.5 {ratio_units} Range: 0.0-3.2 (Abnormal) Comments: LDL/HDL Ratio Men Women 1/2 Avg.Risk 1.0 1.5 Av g.Risk 3.6 3.2 2X Avg.Risk 6.2 5.0 3X Avg.Risk 8.0 6.1 LDL Cholesterol Calc 220 mg/dL (Abnormal) Range: 0-99 VLDL Cholesterol Rocky 54 mg/dL (Abnormal) Range: 5-40 HDL Cholesterol 40 mg/dL (Normal) Comments: According to ATP-III Guidelines, HDL-C >59 mg/dL is considered anegative risk factor for CHD. Triglycerides 268 mg/dL (Abnormal) Range: 0-149 Cholesterol, Total 314 mg/dL (Abnormal) Range: 100-199 Vitamin D, 25-Hydroxy 28.4 ng/mL (Abnormal) Comments: PATIENT NOT FASTINGPERFORMED BY: Enohm Ltwuji2818 [facility] [id number] :11 Range: 30.0-100.0 Comments: Vitamin D deficiency has been defined by the [place] ofMedicine and an Endocrine Society practice guideline as alevel of serum 25-OH vitamin D less than 20 ng/mL (1,2).The Endocrine Society went on to further define vitamin Dinsufficiency as a level between 21 and 29 ng/mL (2).1. IOM ([place] of Medicine). 2010. Dietary reference intakes for calcium and D. [place]: The National Academies Press.2. Micky RAWLS, Yohana COBURN, Kennedy PAL, et al. Evaluation, treatment, and prevention of vitamin D deficiency: an Endocrine Society clinical practice guideline. JCEM. 2010; 96(9):1911-30. 2-Qpe-437234:37 LIPASE (37036) Comments: PATIENT NOT FASTINGPERFORMED BY: [place] 9414370 [facility] [id number] Information: [id number] Lipase, Serum 99 U/L (Abnormal) Range: 0-59 :48 Lipase (25529) Comments: PATIENT WAS FASTINGPERFORMED BY: [place] 9414370 [facility] [id number] Information: [id number] Lipase, Serum 110 U/L (Abnormal) Range: 0-59 :20 Basic Metabolic Profile (BMP) Comments: Test performed at:[facility] [address] [place], [place] [id number] GAP 8 (Normal) Range: 5-15 CO2 26.0 mmol/L (Normal) Range: 21.0-32.0 CL 105 mmol/L (Normal) Range: 98-107 K 3.6 mmol/L (Normal) Range: 3.5-5.1 NA 139 mmol/L (Normal) Range: 136-145 CA 9.5 mg/dL (Normal) Range: 8.5-10.1 BUN/CRE 6.7 {RATIO} (Abnormal) Range: 10-20 Estimated CRCL 43.26 ml/min (Normal) CREAT,SERUM 0.9 mg/dL (Normal) Range: 0.6-1.0 BUN 6 mg/dL (Abnormal) Range: 7-18 GLU 96 mg/dL (Normal) Range: 70-110 :20 CBC W/Diff, Automated Comments: Test performed at:[facility] [address] [facility] [place], [place] [id number] Absolute Lymph 0.64 {X10_3/ul} (Abnormal) Range: 0.83-4.51 Absolute Neut 7.4 {X10_3/uL} (Normal) Range: 2.0-7.7 IM GRAN % 0.200 % (Normal) Range: 0.0-0.9 Comments: IG% - Immature Granulocytes (promyelocytes, myelocytes andmetamyelocytes) > 1% indicates that a LEFT SHIFT is Present. BASO% 0.1 % (Normal) Range: 0-1 EO% 0.0 % (Normal) Range: 0-5 MONO% 7.6 % (Normal) Range: 0-10 LY% 7.3 % (Abnormal) Range: 19-41 NEUT% 84.8 % (Abnormal) Range: 47-70 MPV 9.0 fL (Normal) Range: 6.2-12.0 PLT 316 K/mm3 (Normal) Range: 150-450 RDW SD 43.7 fL (Normal) Range: 35.1-43.9 RDW CV 13.3 % (Normal) Range: 11.6-14.6 MCHC 32.7 {g/gl} (Normal) Range: 32-36 MCH 29.5 pg (Normal) Range: 27.0-32.0 MCV 90.3 fL (Normal) Range: 81-99 HCT 36.1 % (Abnormal) Range: 37-47 HGB 11.8 g/dL (Abnormal) Range: 12.0-15.0 RBC 4.00 {M/mm3} (Abnormal) Range: 4.2-5.4 WBC 8.7 K/mm3 (Normal) Range: 4.4-11.0 :20 Lipase Comments: Test performed at:[facility] [address] [place], [place] [id number] LIPASE 377 U/L (Abnormal) Range: 70-290 62-Liv-39604:50 CBCD ALC 0.80 {X10_3/ul} (Abnormal) Range: 0.83-4.51 ANC 2.5 {X10_3/uL} (Normal) Range: 2.0-7.7 IG% 0.000 % (Normal) Range: 0.0-0.9 Comments: IG% - Immature Granulocytes (promyelocytes, myelocytes andmetamyelocytes) > 1% indicates that a LEFT SHIFT is Present. B% 0.3 % (Normal) Range: 0-1 E% 0.0 % (Normal) Range: 0-5 M% 9.1 % (Normal) Range: 0-10 L% 22.1 % (Normal) Range: 19-41 N% 68.5 % (Normal) Range: 47-70 MPV 9.7 fL (Normal) Range: 6.2-12.0 PLT 344 K/mm3 (Normal) Range: 150-450 RDWSD 45.1 fL (Abnormal) Range: 35.1-43.9 RDWCV 13.5 % (Normal) Range: 11.6-14.6 MCHC 32.0 {g/gl} (Normal) Range: 32-36 MCH 29.4 pg (Normal) Range: 27.0-32.0 MCV 92.0 fL (Normal) Range: 81-99 HCT 37.8 % (Normal) Range: 37-47 HGB 12.1 g/dL (Normal) Range: 12.0-15.0 RBC 4.11 {M/mm3} (Abnormal) Range: 4.2-5.4 WBC 3.6 K/mm3 (Abnormal) Range: 4.4-11.0 07-Brp-64310:50 CMP GAP 6 (Normal) Range: 5-15 CO2 30.0 mmol/L (Normal) Range: 21.0-32.0 CL 102 mmol/L (Normal) Range: 98-107 K 3.9 mmol/L (Normal) Range: 3.5-5.1 NA 138 mmol/L (Normal) Range: 136-145 BIT 0.50 mg/dL (Normal) Range: 0.00-4.00 ALT 19 U/L (Normal) Range: 12-78 ALK 70 U/L (Normal) Range: 50-136 AST 18 U/L (Normal) Range: 15-37 CA 9.3 mg/dL (Normal) Range: 8.5-10.1 AG 1.2 {RATIO} (Normal) Range: 0.9-2.4 GLOB 3.3 g/dL (Normal) Range: 2.7-4.2 ALB 3.9 g/dL (Normal) Range: 3.4-5.0 TPROT 7.2 g/dL (Normal) Range: 6.4-8.2 BC 9.0 {RATIO} (Abnormal) Range: 10-20 CREAT 1.0 mg/dL (Normal) Range: 0.6-1.0 BUN 9 mg/dL (Normal) Range: 7-18 GLU 80 mg/dL (Normal) Range: 70-110 :50 Vitamin D Hydroxy (41961) Comments: PATIENT WAS FASTINGPERFORMED BY: [facility]6370 [facility] [id number] Vitamin D, 25-Hydroxy 35.7 ng/mL (Normal) Range: 30.0-100.0 Comments: Vitamin D deficiency has been defined by the [place] [facility] and an Endocrine Society practice guideline as alevel of serum 25-OH vitamin D less than 20 ng/mL (1,2).The Endocrine Society went on to further define vitamin Dinsufficiency as a level between 21 and 29 ng/mL (2).1. IOM ([place] of Medicine). 2010. Dietary reference intakes for calcium and D. [place]: The National AcademAgorafy Press.2. Micky MF, Yohana COBURN, Kennedy PAL, et al. Evaluation, treatment, and prevention of vitamin D deficiency: an Endocrine Society clinical practice guideline. JCEM. 2010; 96(7):1911-30. :50 LIPID PANEL (06734) Comments: PATIENT WAS FASTINGPERFORMED BY: [facility]6[address] [facility] [id number] Information: [id number],2ND ORDER LDL/HDL Ratio 4.0 {ratio_units} (Abnormal) Range: 0.0-3.2 Comments: LDL/HDL Ratio Men Women 1/2 Avg.Risk 1.0 1.5 Av g.Risk 3.6 3.2 2X Avg.Risk 6.2 5.0 3X Avg.Risk 8.0 6.1 Comment: LDLCOM (Normal) Comments: Possible Familial Hypercholesterolemia. FH should be suspected whenfasting LDL cholesterol is above 189 mg/dL or non-HDL cholesterolis above 219 mg/dL. A family history of high cholesterol and heartdise ase in 1st degree relatives should be collected. J Clin Wzrdunr1403;5:133-140 LDL Cholesterol Calc 195 mg/dL (Abnormal) Range: 0-99 VLDL Cholesterol Rocky 32 mg/dL (Normal) Range: 5-40 HDL Cholesterol 49 mg/dL (Normal) Comments: According to ATP-III Guidelines, HDL-C >59 mg/dL is considered anegative risk factor for CHD. Triglycerides 160 mg/dL (Abnormal) Range: 0-149 Cholesterol, Total 276 mg/dL (Abnormal) Range: 100-199 :50 [id number]-[id number] (26953) Comments: PATIENT WAS FASTINGPERFORMED BY: [place] [id number] [facility] [id number] AFP, Serum, Tumor Marker 6.3 ng/mL (Normal) Range: 0.0-8.3 Comments: Carmencita ECLIA methodology :50 PTT (Activated Partial Comments: PATIENT WAS FASTINGPERFORMED BY: [address] [id number] Thromboplastin Time) (89569) aPTT 24 {sec} (Normal) Range: 24-33 Comments: This test has not been validated for monitoring unfractionated heparintherapy. aPTT-based therapeutic ranges for unfractionated heparintherapy have not been established. For general guidelines onHeparin monitoring, refer to the [facility] Directory of Services. :50 PT (Prothrobim Time) (72112) Comments: PATIENT WAS FASTINGPERFORMED BY: [facility]6370 [facility] [id number] Prothrombin Time 10.3 {sec} (Normal) Range: 9.1-12.0 INR 1.0 (Normal) Range: 0.8-1.2 Comments: Reference interval is for non-anticoagulated patients. . Suggested INR therapeutic range for Vitamin K anta gonist therapy: Standard Dose (moderate intensity therapeutic range): 2.0 - 3.0 Higher intensity therapeutic range 2.5 - 3.5 :19 CBC WITH MANUAL DIFF Comments: PATIENT WAS FASTINGPERFORMED BY: [place] [id number] [facility] [id number] Information: [id number] (41322) Immature Grans (Abs) 0.0 {x10E3/uL} (Normal) Range: 0.0-0.1 Immature Granulocytes 0 % (Normal) Range: 0-2 Comments: The percent (%) differential reference intervals for normal cell typeswill be removed from patient reports beginning May 18, 2014,consistent with CAP standards. Baso (Absolute) 0.0 {x10E3/uL} (Normal) Range: 0.0-0.2 Eos (Absolute) 0.0 {x10E3/uL} (Normal) Range: 0.0-0.4 Monocytes(Absolute) 0.4 {x10E3/uL} (Normal) Range: 0.1-0.9 Lymphs (Absolute) 0.8 {x10E3/uL} (Normal) Range: 0.7-3.1 Neutrophils (Absolute) 3.3 {x10E3/uL} (Normal) Range: 1.4-7.0 Basos 0 % (Normal) Range: 0-3 Comments: The percent (%) differential reference intervals for normal cell typeswill be removed from patient reports beginning May 18, 2014,consistent with CAP standards. Eos 0 % (Normal) Range: 0-5 Comments: The percent (%) differential reference intervals for normal cell typeswill be removed from patient reports beginning May 18, 2014,consistent with CAP standards. Monocytes 8 % (Normal) Range: 4-12 Comments: The percent (%) differential reference intervals for normal cell typeswill be removed from patient reports beginning May 18, 2014,consistent with CAP standards. Lymphs 18 % (Normal) Range: 14-46 Comments: The percent (%) differential reference intervals for normal cell typeswill be removed from patient reports beginning May 18, 2014,consistent with CAP standards. Neutrophils 74 % (Normal) Range: 40-74 Comments: The percent (%) differential reference intervals for normal cell typeswill be removed from patient reports beginning May 18, 2014,consistent with CAP standards. Platelets 339 {x10E3/uL} (Normal) Range: 150-379 RDW 15.6 % (Abnormal) Range: 12.3-15.4 MCHC 33.2 g/dL (Normal) Range: 31.5-35.7 MCH 29.5 pg (Normal) Range: 26.6-33.0 MCV 89 fL (Normal) Range: 79-97 Hematocrit 36.8 % (Normal) Range: 34.0-46.6 Hemoglobin 12.2 g/dL (Normal) Range: 11.1-15.9 RBC 4.13 {x10E6/uL} (Normal) Range: 3.77-5.28 WBC 4.5 {x10E3/uL} (Normal) Range: 3.4-10.8 :19 METABOLIC PANEL, COMPREHENSIVE Comments: PATIENT WAS FASTINGPERFORMED BY: Enohm LP Amina [facility] [id number] ([id number]) ALT (SGPT) 10 [iU]/L (Normal) Range: 0-32 AST (SGOT) 21 [iU]/L (Normal) Range: 0-40 Alkaline Phosphatase, S 73 [iU]/L (Normal) Range: 39-117 Bilirubin, Total 0.4 mg/dL (Normal) Range: 0.0-1.2 A/G Ratio 2.1 (Normal) Range: 1.1-2.5 Globulin, Total 2.1 g/dL (Normal) Range: 1.5-4.5 Albumin, Serum 4.4 g/dL (Normal) Range: 3.5-4.8 Protein, Total, Serum 6.5 g/dL (Normal) Range: 6.0-8.5 Calcium, Serum 9.9 mg/dL (Normal) Range: 8.6-10.2 Carbon Dioxide, Total 26 mmol/L (Normal) Range: 18-29 Chloride, Serum 101 mmol/L (Normal) Range: 97-108 Potassium, Serum 4.5 mmol/L (Normal) Range: 3.5-5.2 Sodium, Serum 143 mmol/L (Normal) Range: 134-144 BUN/Creatinine Ratio 9 (Abnormal) Range: 11-26 eGFR If Africn Am 68 mL/min/1.73 (Normal) eGFR If NonAfricn Am 59 mL/min/1.73 (Abnormal) Creatinine, Serum 0.98 mg/dL (Normal) Range: 0.57-1.00 BUN 9 mg/dL (Normal) Range: 8-27 Glucose, Serum 81 mg/dL (Normal) Range: 65-99 :19 Vitamin D Hydroxy (16079) Comments: PATIENT WAS FASTINGPERFORMED BY: [employer]6370 [facility] [id number] Vitamin D, 25-Hydroxy 42.1 ng/mL (Normal) Range: 30.0-100.0 Comments: Vitamin D deficiency has been defined by the [place] ofMedicine and an Endocrine Society practice guideline as alevel of serum 25-OH vitamin D less than 20 ng/mL (1,2).The Endocrine Society went on to further define vitamin Dinsufficiency as a level between 21 and 29 ng/mL (2).1. IOM ([place] of [employer]). 2010. Dietary reference intakes for calcium and D. [place]: The National Academies Press.2. Micky MF, Yohana COBURN, Kennedy PAL, et al. Evaluation, treatment, and prevention of vitamin D deficiency: an Endocrine Society clinical practice guideline. JCEM. 2010; 96(7):1911-30. :19 LIPID PANEL (62921) Comments: PATIENT WAS FASTINGPERFORMED BY: [facility] [id number] LDL/HDL Ratio 2.4 {ratio_units} (Normal) Range: 0.0-3.2 LDL Cholesterol Calc 126 mg/dL (Abnormal) Range: 0-99 VLDL Cholesterol Rocky 36 mg/dL (Normal) Range: 5-40 HDL Cholesterol 53 mg/dL (Normal) Comments: According to ATP-III Guidelines, HDL-C >59 mg/dL is considered anegative risk factor for CHD. Triglycerides 178 mg/dL (Abnormal) Range: 0-149 Cholesterol, Total 215 mg/dL (Abnormal) Range: 100-199 :41 T4, FREE (THYROXINE) (61944) Comments: PATIENT WAS FASTINGPERFORMED BY: [facility] [id number] T4,Free(Direct) 1.00 ng/dL (Normal) Range: 0.82-1.77 :41 T3, FREE (TRIDOTHYRONINE) (19402) Comments: PATIENT WAS FASTINGPERFORMED BY: [employer] [place] [id number] Triiodothyronine,Free,Serum 3.0 pg/mL (Normal) Range: 2.0-4.4 :41 TSH (41745) Comments: PATIENT WAS FASTINGPERFORMED BY: [employer] RoadDublin [place] [id number] TSH 1.740 {uIU/mL} (Normal) Range: 0.450-4.500 :41 LIPID PANEL (02459) Comments: PATIENT WAS FASTINGPERFORMED BY: [facility] [facility] [id number] Information: [id number],NO DRAW FEE 2ND ORD ER; see message from 01/09/14....labs taken care of LDL/HDL Ratio 2.2 {ratio_units} (Normal) Range: 0.0-3.2 LDL Cholesterol Calc 115 mg/dL (Abnormal) Range: 0-99 VLDL Cholesterol Rocky 24 mg/dL (Normal) Range: 5-40 HDL Cholesterol 52 mg/dL (Normal) Comments: According to ATP-III Guidelines, HDL-C >59 mg/dL is considered anegative risk factor for CHD. Triglycerides 120 mg/dL (Normal) Range: 0-149 Cholesterol, Total 191 mg/dL (Normal) Range: 100-199 :19 [id number] (06031) Comments: PATIENT WAS FASTINGPERFORMED BY: [facility]6[address] [facility] [id number] AFP, Serum, Tumor Marker 5.2 ng/mL (Normal) Range: 0.0-8.3 Comments: Carmencita ECLIA methodology :19 PTT (Activated Partial Comments: PATIENT WAS FASTINGPERFORMED BY: [facility]6[address] [facility] [id number] Thromboplastin Time) (81720) aPTT 25 {sec} (Normal) Range: 24-33 Comments: This test has not been validated for monitoring unfractionated heparintherapy. aPTT-based therapeutic ranges for unfractionated heparintherapy have not been established. For general guidelines onHeparin monitoring, refer to the [facility] Directory of Services. :19 PT (Prothrobim Time) (43848) Comments: PATIENT WAS FASTINGPERFORMED BY: [facility]6[address] [facility] [id number] Prothrombin Time 11.0 {sec} (Normal) Range: 9.1-12.0 INR 1.1 (Normal) Range: 0.8-1.2 Comments: Reference interval is for non-anticoagulated patients. . Suggested INR therapeutic range for Vitamin K anta gonist therapy: Standard Dose (moderate intensity therapeutic range): 2.0 - 3.0 Higher intensity therapeutic range 2.5 - 3.5 51-Pkh-52916:19 CBC WITH MANUAL DIFF Comments: PATIENT WAS FASTINGPERFORMED BY: [facility]6[address] [facility] [id number] Information: [id number] ([id number]) Immature Grans (Abs) 0.0 {x10E3/uL} (Normal) Range: 0.0-0.1 Immature Granulocytes 0 % (Normal) Range: 0-2 Baso (Absolute) 0.0 {x10E3/uL} (Normal) Range: 0.0-0.2 Eos (Absolute) 0.0 {x10E3/uL} (Normal) Range: 0.0-0.4 Monocytes(Absolute) 0.3 {x10E3/uL} (Normal) Range: 0.1-0.9 Lymphs (Absolute) 0.6 {x10E3/uL} (Abnormal) Range: 0.7-3.1 Neutrophils (Absolute) 2.7 {x10E3/uL} (Normal) Range: 1.4-7.0 Basos 0 % (Normal) Range: 0-3 Eos 0 % (Normal) Range: 0-5 Monocytes 8 % (Normal) Range: 4-12 Lymphs 17 % (Normal) Range: 14-46 Neutrophils 75 % (Abnormal) Range: 40-74 Platelets 303 {x10E3/uL} (Normal) Range: 155-379 RDW 15.0 % (Normal) Range: 12.3-15.4 MCHC 33.0 g/dL (Normal) Range: 31.5-35.7 MCH 29.7 pg (Normal) Range: 26.6-33.0 MCV 90 fL (Normal) Range: 79-97 Hematocrit 36.4 % (Normal) Range: 34.0-46.6 Hemoglobin 12.0 g/dL (Normal) Range: 11.1-15.9 RBC 4.04 {x10E6/uL} (Normal) Range: 3.77-5.28 WBC 3.7 {x10E3/uL} (Normal) Range: 3.4-10.8 :19 METABOLIC PANEL, COMPREHENSIVE Comments: PATIENT WAS FASTINGPERFORMED BY: Enohm LP Amina [facility] [id number] ([id number]) ALT (SGPT) 10 [iU]/L (Normal) Range: 0-32 AST (SGOT) 19 [iU]/L (Normal) Range: 0-40 Alkaline Phosphatase, S 61 [iU]/L (Normal) Range: 39-117 Bilirubin, Total 0.5 mg/dL (Normal) Range: 0.0-1.2 A/G Ratio 1.9 (Normal) Range: 1.1-2.5 Globulin, Total 2.3 g/dL (Normal) Range: 1.5-4.5 Albumin, Serum 4.4 g/dL (Normal) Range: 3.5-4.8 Protein, Total, Serum 6.7 g/dL (Normal) Range: 6.0-8.5 Calcium, Serum 10.0 mg/dL (Normal) Range: 8.6-10.2 Carbon Dioxide, Total 25 mmol/L (Normal) Range: 19-28 Chloride, Serum 103 mmol/L (Normal) Range: 97-108 Potassium, Serum 4.0 mmol/L (Normal) Range: 3.5-5.2 BUN/Creatinine Ratio 10 (Abnormal) Range: 11-26 Sodium, Serum 142 mmol/L (Normal) Range: 134-144 eGFR If Africn Am 68 mL/min/1.73 (Normal) eGFR If NonAfricn Am 59 mL/min/1.73 (Abnormal) Creatinine, Serum 0.97 mg/dL (Normal) Range: 0.57-1.00 BUN 10 mg/dL (Normal) Range: 8-27 Glucose, Serum 77 mg/dL (Normal) Range: 65-99 :19 Vitamin D Hydroxy (25561) Comments: PATIENT WAS FASTINGPERFORMED BY: Enohm Ewnsxq3129 [facility] [id number] Vitamin D, 25-Hydroxy 36.2 ng/mL (Normal) Range: 30.0-100.0 Comments: Vitamin D deficiency has been defined by the [place] of[place]icine and an Endocrine Society practice guideline as alevel of serum 25-OH vitamin D less than 20 ng/mL (1,2).The Endocrine Society went on to further define vitamin Dinsufficiency as a level between 21 and 29 ng/mL (2).1. IOM ([place] of [employer]). 2010. Dietary reference intakes for calcium and D. [place]: The National Academies Press.2. Micky MF, Yohana COBURN, Kennedy PAL, et al. Evaluation, treatment, and prevention of vitamin D deficiency: an Endocrine Society clinical practice guideline. JCEM. 2010; 96(7):1911-30. :55 URINE MAHENDRA CULTURE (MIKI Comments: PATIENT NOT FASTINGPERFORMED BY: [employer] [place] [id number] Information: SRC:UR [id number] COL COUNT) (78050) Result 1 BETAGB (Normal) Comments: Beta hemolytic Streptococcus, group B10,000- 25,000 colony forming units per mLPenicillin and ampicillin are drugs of choice for treatment ofbeta-hemolytic streptococcal infections. Susceptibility testin g ofpenicillins and other beta-lactam agents approved by the FDA fortreatment of beta-hemolytic streptococcal infections need not beperformed routinely because nonsusceptible isolates are extremelyrare in any beta-hemolytic streptococcus and have not been reportedfor Streptococcus pyogenes (group A). (CLSI 2010)Mixed urogenital flora10,000-25,000 colony forming units per mL Urine Final report (Normal) Culture,Comprehensive :43 Urinalysis, Office (24586) UA - BILIRUBIN Negative (Normal) UA - BLOOD Negative (Normal) UA - GLUCOSE Negative (Normal) UA - KETONES Negative mg/dL (Normal) UA - LEUKOCYTE ESTERASE Small (Normal) UA - NITRITE Negative (Normal) UA - PH 7.0 (Normal) UA - PROTEIN Negative mg/dL (Normal) UA - SPECIFIC GRAVITY 1.025 (Normal) URINE UROBILINGN MIKI TIMED Normal mg/dL (Normal) 62-Tjr-99612:13 LIPID PANEL (11820) Comments: PATIENT WAS FASTINGPERFORMED BY: [facility]CoCOMPS.com70 [address] [facility] [id number] LDL Cholesterol Calc 93 mg/dL (Normal) Range: 0-99 LDL/HDL Ratio 1.7 {ratio_units} (Normal) Range: 0.0-3.2 VLDL Cholesterol Rocky 32 mg/dL (Normal) Range: 5-40 HDL Cholesterol 54 mg/dL (Normal) Comments: According to ATP-III Guidelines, HDL-C >59 mg/dL is considered anegative risk factor for CHD. Cholesterol, Total 179 mg/dL (Normal) Range: 100-199 Triglycerides 161 mg/dL (Abnormal) Range: 0-149 91-Neg-07316:13 CBC WITH MANUAL DIFF Comments: PATIENT WAS FASTINGPERFORMED BY: [facility] Srrbfm1496 [address] [facility] [id number] Information: [id number] (19447) Immature Grans (Abs) 0.0 {x10E3/uL} (Normal) Range: 0.0-0.1 Immature Granulocytes 0 % (Normal) Range: 0-2 Baso (Absolute) 0.0 {x10E3/uL} (Normal) Range: 0.0-0.2 Eos (Absolute) 0.0 {x10E3/uL} (Normal) Range: 0.0-0.4 Monocytes(Absolute) 0.4 {x10E3/uL} (Normal) Range: 0.1-0.9 Lymphs (Absolute) 0.9 {x10E3/uL} (Normal) Range: 0.7-3.1 Neutrophils (Absolute) 2.9 {x10E3/uL} (Normal) Range: 1.4-7.0 Basos 1 % (Normal) Range: 0-3 Eos 0 % (Normal) Range: 0-5 Monocytes 9 % (Normal) Range: 4-12 Lymphs 22 % (Normal) Range: 14-46 Neutrophils 68 % (Normal) Range: 40-74 Platelets 346 {x10E3/uL} (Normal) Range: 155-379 RDW 15.3 % (Normal) Range: 12.3-15.4 MCHC 32.5 g/dL (Normal) Range: 31.5-35.7 MCH 28.8 pg (Normal) Range: 26.6-33.0 MCV 89 fL (Normal) Range: 79-97 Hematocrit 36.6 % (Normal) Range: 34.0-46.6 Hemoglobin 11.9 g/dL (Normal) Range: 11.1-15.9 RBC 4.13 {x10E6/uL} (Normal) Range: 3.77-5.28 WBC 4.1 {x10E3/uL} (Normal) Range: 3.4-10.8 :13 METABOLIC PANEL, COMPREHENSIVE Comments: PATIENT WAS FASTINGPERFORMED BY: [employer]70 [facility] [id number] ([id number]) ALT (SGPT) 16 [iU]/L (Normal) Range: 0-32 Alkaline Phosphatase, S 73 [iU]/L (Normal) Range: 39-117 AST (SGOT) 30 [iU]/L (Normal) Range: 0-40 Bilirubin, Total 0.4 mg/dL (Normal) Range: 0.0-1.2 A/G Ratio 1.8 (Normal) Range: 1.1-2.5 Globulin, Total 2.4 g/dL (Normal) Range: 1.5-4.5 Albumin, Serum 4.4 g/dL (Normal) Range: 3.5-4.8 Protein, Total, Serum 6.8 g/dL (Normal) Range: 6.0-8.5 Calcium, Serum 9.9 mg/dL (Normal) Range: 8.6-10.2 Carbon Dioxide, Total 23 mmol/L (Normal) Range: 19-28 Chloride, Serum 102 mmol/L (Normal) Range: 97-108 Potassium, Serum 4.2 mmol/L (Normal) Range: 3.5-5.2 Sodium, Serum 140 mmol/L (Normal) Range: 134-144 BUN/Creatinine Ratio 11 (Normal) Range: 11-26 eGFR If Africn Am 64 mL/min/1.73 (Normal) eGFR If NonAfricn Am 55 mL/min/1.73 (Abnormal) Creatinine, Serum 1.03 mg/dL (Abnormal) Range: 0.57-1.00 BUN 11 mg/dL (Normal) Range: 8-27 Glucose, Serum 80 mg/dL (Normal) Range: 65-99 :13 Vitamin D Hydroxy (86955) Comments: PATIENT WAS FASTINGPERFORMED BY: [employer]70 [facility] [id number] Vitamin D, 25-Hydroxy 40.1 ng/mL (Normal) Range: 30.0-100.0 Comments: Vitamin D deficiency has been defined by the [place] of[place]icine and an Endocrine Society practice guideline as alevel of serum 25-OH vitamin D less than 20 ng/mL (1,2).The Endocrine Society went on to further define vitamin Dinsufficiency as a level between 21 and 29 ng/mL (2).1. IOM ([place] of [employer]). 2010. Dietary reference intakes for calcium and D. [place]: The National Academies Press.2. Micky MF, Yohana NC, Kennedy PAL, et al. Evaluation, treatment, and prevention of vitamin D deficiency: an Endocrine Society clinical practice guideline. JCEM. 2010; 96(7):1911-30. 47-Mzh-88128:33 ABDOMEN COMPLETE Radiology Report See Note Comments: STUDY: ABDOMINAL ULTRASOUND REASON FOR EXAM: Female, 67 years old with left lower abdominal pain. TECHNIQUE: Transabdominal ultrasound was performed with real-time andstatic rene scale imaging. TECHNICA (Normal) L QUALITY: Adequate. COMPARISON: 05/13/12 FINDINGS: Liver: The liver measures 11.9 cm. There is normal echogenicity of theliver. The bile ducts are within normal limits . There is hepatic colorflow. There is no demonstrated mass lesion. Gallbladder: Not demonstrated. There is history of cholecystectomy. Common Bile Duct (C.B.D.): The common bile duct measures 5.9 mm. P ancreas: This organ is not visualized due to adjacent bowel gas. Spleen: Normal size of the spleen. The spleen measures 8.2 cm. Smalldenseechoes in the spleen representing granulomatous calcifications. Right Kidney: Normal size of the right kidney. The right kidney measures9.5 cm. Normal renal cortex. The right cortex measures 1.2 cm. There isnodemonstrated renal mass or cyst. There is no right hydron ephrosis. Left Kidney: Normal size of the left kidney. The left kidney measures 9.5cm. Normal renal cortex. There is small dense echo in the left kidneyrepresenting nonobstructing calculus. Aorta: The a bdominal aorta is of normal caliber. I.V.C.: The IVC is patent. There is no ascites. IMPRESSION:1. Small nonobstructing left renal calculus. Signed:Milly PhamApril 24, 2013 at 2:03:02 PM [id number] Signed RU/RU If you are the referring physician and would like to consult with theradiologist who provided this interpretation, please contbrenton Sheehan M.D. at [phone]. If this radiologist is unavailable, youwillbe directed to another radiologist to assist. If you are a patient with a question regarding this report, pleasecontac tyour referring physician directly. Professional Interpretation Provided By: [employer], Phone , These documents contain legally protected and confidential healthinformati on intended only for the use of the individual or entity namedabove. If you are not the intended recipient, you are hereby notifiedthatany disclosure, copying, distribution, or other use of these docume nts isstrictly prohibited. If you have received this information in error,pleasenotify the sender immediately and arrange for the return or destructionofthese documents. Dictated on 04/24/13 1403 by Carson MontoyaTranscribed on 04/24/131426 by ITS IMPORTSign by Carson Montoya on 04/24/131427 Sign by: Carson Montoya 40-Cgr-69405:33 TRANSVAGINAL NON- Radiology See Note Comments: CLINICAL:Female, 67 years old with left lower quadrant pain. STUDY: ULTRASOUND TRANSVAGINAL TECHNIQUE:Transvaginal COMPARISON:None. FINDINGS:The uterus is not visualiz Report (Normal) ed. There is history of hysterectomy. The leftovary is not visualized. There is also history of left nephrectomy. The right ovary could not be delineated by ultrasound in thispostmenopausal patient. No obvious adnexal masses are seen on the right. No free pelvic fluid is observed. IMPRESSION:1. Hysterectomy with left nephrectomy. 2. Right ovary could not be demonstra vandana by ultrasound. No obvious rightadnexal masses seen, however. Signed:Carson Montoya M.D.April 24, 2013 at 2:03:00 PM [id number] Signed RU/RU If you are the referring physician a nd would like to consult with theradiologist who provided this interpretation, please contact Joshua Sheehan at [phone]. If this radiologist is unavailable, youwillbe directed to another radi ologist to assist. If you are a patient with a question regarding this report, pleasecontactyour referring physician directly. Professional Interpretation Provided By: [employer], Phone , These documents contain legally protected and confidential healthinformation intended only for the use of the individual or entity namedabove. If you are not the intended recipient, you are hereby notifiedthatany disclosure, copying, distribution, or other use of these documents isstrictly prohibited. If you have received this information in error,pleasenotify the sender immediately a nd arrange for the return or destructionofthese documents. Dictated on 04/24/13 1403 by Carson MontoyaTranscribed on 04/24/13 1435 by ITS IMPORTSign by Carson Montoya on 04/24/13 1436 Sign by: Carson Montoya 03-Exl-508456:01 URINE MAHENDRA CULTURE-IDENTIFICATN Comments: PATIENT NOT FASTINGPERFORMED BY: [facility] Jsyuxm5996 [facility] [id number] Information: [id number] ([id number]) Result 1 Enterococcus faecalis Comments: 3,000 Colonies/mLNote: this isolate is vancomycin-susceptible.This information is provided for epidemiologic purposesonly: vancomycin is not among the antibioticsrecommended for therapy of urinary tract (Normal) infectionscaused by Enterococcus.For Enterococcus species, cephalosporins, aminoglycosides (except forhigh-level resistance screening), clindamycin, and trimethoprim-sulfamethoxazole are not effective clinically. Fluoroquinolones areused primarily for treating urinary tract infections. (CLSI, Z397-[id number],2009) Result 2 BETAGB (Normal) Comments: Beta hemolytic Streptococcus, group B2,000 Colonies/mLPenicillin and ampicillin are drugs of choice for treatment ofbeta- hemolytic streptococcal infections. Susceptibility testing ofpenicillins and othe r beta-lactam agents approved by the FDA fortreatment of beta-hemolytic streptococcal infections need not beperformed routinely because nonsusceptible isolates are extremelyrare in any beta-hemolytic st reptococcus and have not been reportedfor Streptococcus pyogenes (group A). (CLSI 2011)Mixed urogenital flora4,000 Colonies/mL S = Susceptible; I = Intermediate; R = Resistant P = Positive; N = Negative MICS are expressed in micrograms per mL Antibiotic RSLT#1 RSLT#2 RSLT#3 RSLT#4Ciprofloxacin SLevofloxacin SNitrofurantoin SPenicillin STetracycline RVancomycin S Urine Final report (Normal) Culture,Comprehens laquita 14-Pkg-891017:55 Urinalysis, Office (94325) UA - LEUKOCYTE ESTERASE Small (Normal) UA - NITRITE Negative (Normal) URINE UROBILINGN MIKI TIMED Normal mg/dL (Normal) UA - PROTEIN Negative mg/dL (Normal) UA - BLOOD Non Hemolyzed Trace (Normal) UA - SPECIFIC GRAVITY 1.025 (Normal) UA - KETONES Negative mg/dL (Normal) UA - BILIRUBIN Negative (Normal) UA - GLUCOSE Negative (Normal) 01-Jan-20136:57 BILAT SCRN DIGITAL & CAD Radiology Report See Note (Normal) Comments: MAMMOGRAPHY - BILATERAL SCREENING REASON FOR EXAM: Female, 67 years old. Routine annual screeningexamination. PERTINENT HISTORY: Non-contributory. TECHNIQUE: Digital examination. Med iolateral ob lique (MLO) andcraniocaudad (CC) views of both breasts were obtained. CAD: CAD wasperformed on this study. COMPARISON: Comparison is made with prior study dated December 31ndFebruary 2010. GINGER DINGS:The breast composition is composed of scattered fibroglandular tissuesranging from 25% to 50% of the breast. There are no dominant masses or suspicious calcifications. No other significant abnorma lities are identified. There has been nosignificant change since the prior study. IMPRESSION:Stable bilateral screening mammogram. Yearly follow-up recommended. (A) ASSESSMENT CATEGORY:BIRADS Catego ry 2: Benign finding(s). A letter regarding these resultswill be sent to the patient by the facility within 30 days. Approximately 10% of breast cancers are not detected by mammography. Anormal mammo gram should not delay biopsy of a clinically suspiciousabnormality. Signed:Zbigniew Carroll M.D.January 01, 2013 at 8:13:49 AM [id number] Signed GP/GP If you are the referring physician and would like to consult with theradiologist who provided this interpretation, please contact Joshua Brunson at [phone]. If this radiologist is unavailable, youwill be directed to [facility] radiologist to assist. If you are a patient with a question regarding this report, pleasecontactyour referring physician directly. Professional Interpretation Provided By: [employer], Phone , These documents contain legally protected and confidential healthinformation intended only for the use of the individual or entity namedabove. If you are not the intended recipien t, you are hereby notifiedthatany disclosure, copying, distribution, or other use of these documents isstrictly prohibited. If you have received this information in error,pleasenotify the sender immedia tely and arrange for the return or destructionofthese documents. Dictated on 01/01/1357 by Ana MONROE,Maliascribed on 01/01/1333 by ITS IMPORTSign by Zbigniew Carroll MD on 01/01/13833 Sign by: Zbigniew Carroll MD 98-Cae-44101:18 ABDOMEN COMPLETE Radiology Report See Note (Normal) Comments: PROCEDURE: ABDOMINAL ULTRASOUND REASON FOR EXAM: Female, 67 years old. Epigastric pain. TECHNIQUE: Transabdominal ultrasound was performed with real-time andstatic rene scale imaging. TECHNICAL QUALITY: Adequate. COMPARISON: Comparison is made with prior study dated May. FINDINGS: Liver: The liver measures 11.7 cm. There is normal echogenicity of theliver. The bile ducts a re within normal limits. There is hepatic colorflow. The direction of portal flow is hepatopetal. There is nodemonstrated mass lesion. Gallbladder: The patient is status post cholecystectomy. Common Bile Duct (C.B.D.): The common bile duct measures 3.2 mm. Pancreas: Normal size of the head, body of the pancreas. The tailportionis obscured due to overlying bowel gas. There is normal echogenici ty ofthe pancreas. There is no demonstrated pancreatic mass or cyst. Spleen: Normal size of the spleen. The spleen measures 8.3-cm . Right Kidney: Normal size of the right kidney. The right kidney measures8.7 cm. Normal renal cortex. The right cortex measures 1.3 cm. Thereisno demonstrated renal mass or cyst. There is no right hydronephrosis.Norenal cyst is seen on this examination. Left Kidn ey: Normal size of the left kidney. The left kidney measures9.1cm. Normal renal cortex. The left cortex measures 1.3 cm. There is nodemonstrated renal mass or cyst. There is no left hydronephrosis. Aorta: Unremarkable. I.V.C.: The IVC is patent. There is no ascites. IMPRESSION:Normal abdominal ultrasound examination. Status post cholecystectomy. Signed:Zbigniew Carroll M.D.December 20, 2012 at 12:53:26 PM [id number] Signed GP/GP If you are the referring physician and would like to consult with theradiologist who provided this interpretation, please contact Alyssa parikh M.D. at [phone]. If this radiologist is unavailable, youwill be directed to another radiologist to assist. If you are a patient with a question regarding this report, pleasecontactyour referring physician directly. Professional Interpretation Provided By: Pavithra, Phone , These documents contain legally protected and confidential healthinformation intended onl y for the use of the individual or entity namedabove. If you are not the intended recipient, you are hereby notifiedthatany disclosure, copying, distribution, or other use of these documents isstrictly prohibited. If you have received this information in error,pleasenotify the sender immediately and arrange for the return or destructionofthese documents. Dictated on 12/20/12 0922 by Ana MONROE,Bob Pearcecribed on 12/20/12 1255 by ITS IMPORTSign by Ana MONROE,Zbigniew on 12/20/12 1256 Sign by: Zbigniew Carroll MD 75-Nax-34160:34 HEPATIC FUNCTION PANEL Comments: PATIENT WAS FASTINGPERFORMED BY: Moonfryelin6370 [facility] [id number] ([id number]) ALT (SGPT) 28 [iU]/L (Normal) Range: 0-32 AST (SGOT) 39 [iU]/L (Normal) Range: 0-40 Alkaline Phosphatase, S 99 [iU]/L (Normal) Range: 47-112 Bilirubin, Direct 0.17 mg/dL (Normal) Range: 0.00-0.40 Bilirubin, Total 0.7 mg/dL (Normal) Range: 0.0-1.2 Albumin, Serum 4.6 g/dL (Normal) Range: 3.6-4.8 Protein, Total, Serum 7.2 g/dL (Normal) Range: 6.0-8.5 :34 LIPID PANEL (89900) Comments: PATIENT WAS FASTINGPERFORMED BY: [facility]PayM[facility] HospitalVananf7198 [facility] [id number] Information: [id number] LDL/HDL Ratio 1.7 {ratio_units} (Normal) Range: 0.0-3.2 HDL Cholesterol 62 mg/dL (Normal) Comments: According to ATP-III Guidelines, HDL-C >59 mg/dL is considered anegative risk factor for CHD. LDL Cholesterol Calc 104 mg/dL (Abnormal) Range: 0-99 VLDL Cholesterol Rocky 32 mg/dL (Normal) Range: 5-40 Triglycerides 158 mg/dL (Abnormal) Range: 0-149 Cholesterol, Total 198 mg/dL (Normal) Range: 100-199 :34 [id number] ([id number]) Comments: PATIENT WAS FASTINGPERFORMED BY: [address] [id number] AFP, Serum, Tumor Marker 5.3 ng/mL (Normal) Range: 0.0-8.3 Comments: Carmencita ECLIA methodology :34 PTT (Activated Partial Comments: PATIENT WAS FASTINGPERFORMED BY: [address] [id number] Thromboplastin Time) (39074) aPTT 27 {sec} (Normal) Range: 24-33 Comments: This test has not been validated for monitoring unfractionated heparintherapy. aPTT-based therapeutic ranges for unfractionated heparintherapy have not been established. For general guidelines onHeparin monitoring, refer to the [facility] Directory of Services. :34 PT (Prothrobim Time) (14915) Comments: PATIENT WAS FASTINGPERFORMED BY: [place] [id number] [facility] [id number] INR 1.0 (Normal) Range: 0.8-1.2 Comments: Reference interval is for non-anticoagulated patients. . Suggested INR therapeutic range for Vitamin K anta gonist therapy: Standard Dose (moderate intensity therapeutic range): 2.0 - 3.0 Higher intensity therapeutic range 2.5 - 3.5 Prothrombin Time 10.3 {sec} (Normal) Range: 9.1-12.0 :28 METABOLIC PANEL, COMPREHENSIVE Comments: PATIENT WAS FASTINGPERFORMED BY: [address] [id number] ([id number]) ALT (SGPT) 11 [iU]/L (Normal) Range: 0-32 AST (SGOT) 21 [iU]/L (Normal) Range: 0-40 Alkaline Phosphatase, S 78 [iU]/L (Normal) Range: 25-165 Bilirubin, Total 0.5 mg/dL (Normal) Range: 0.0-1.2 A/G Ratio 1.8 (Normal) Range: 1.1-2.5 Globulin, Total 2.5 g/dL (Normal) Range: 1.5-4.5 Albumin, Serum 4.4 g/dL (Normal) Range: 3.6-4.8 Protein, Total, Serum 6.9 g/dL (Normal) Range: 6.0-8.5 Calcium, Serum 9.7 mg/dL (Normal) Range: 8.6-10.2 Carbon Dioxide, Total 23 mmol/L (Normal) Range: 20-32 Chloride, Serum 103 mmol/L (Normal) Range: 97-108 Potassium, Serum 4.3 mmol/L (Normal) Range: 3.5-5.2 Sodium, Serum 141 mmol/L (Normal) Range: 134-144 BUN/Creatinine Ratio 13 (Normal) Range: 11-26 eGFR If Africn Am 74 mL/min/1.73 (Normal) eGFR If NonAfricn Am 65 mL/min/1.73 (Normal) Creatinine, Serum 0.91 mg/dL (Normal) Range: 0.57-1.00 BUN 12 mg/dL (Normal) Range: 8-27 Glucose, Serum 86 mg/dL (Normal) Range: 65-99 05-Dec-20128:28 CBC WITH MANUAL DIFF Comments: PATIENT WAS FASTINGPERFORMED BY: [facility]6370 [facility] [id number] Information: [id number] ([id number]) Immature Grans (Abs) 0.0 {x10E3/uL} (Normal) Range: 0.0-0.1 Immature Granulocytes 0 % (Normal) Range: 0-2 Baso (Absolute) 0.0 {x10E3/uL} (Normal) Range: 0.0-0.2 Eos (Absolute) 0.0 {x10E3/uL} (Normal) Range: 0.0-0.4 Monocytes(Absolute) 0.4 {x10E3/uL} (Normal) Range: 0.1-1.0 Lymphs (Absolute) 1.0 {x10E3/uL} (Normal) Range: 0.7-4.5 Neutrophils (Absolute) 3.2 {x10E3/uL} (Normal) Range: 1.8-7.8 Basos 0 % (Normal) Range: 0-3 Eos 0 % (Normal) Range: 0-7 Monocytes 8 % (Normal) Range: 4-13 Lymphs 22 % (Normal) Range: 14-46 Neutrophils 70 % (Normal) Range: 40-74 Platelets 334 {x10E3/uL} (Normal) Range: 140-415 RDW 15.5 % (Abnormal) Range: 12.3-15.4 MCHC 32.9 g/dL (Normal) Range: 31.5-35.7 MCH 29.6 pg (Normal) Range: 26.6-33.0 MCV 90 fL (Normal) Range: 79-97 Hematocrit 37.4 % (Normal) Range: 34.0-46.6 Hemoglobin 12.3 g/dL (Normal) Range: 11.1-15.9 RBC 4.15 {x10E6/uL} (Normal) Range: 3.77-5.28 WBC 4.6 {x10E3/uL} (Normal) Range: 4.0-10.5 05-Dec-20128:28 Vitamin D Hydroxy (45562) Comments: PATIENT WAS FASTINGPERFORMED BY: LabCoMeadowview Psychiatric HospitalZqobpt3816 [facility] [id number] Vitamin D, 25-Hydroxy 48.4 ng/mL (Normal) Range: 30.0-100.0 Comments: Vitamin D deficiency has been defined by the [place] ofMedicine and an Endocrine Society practice guideline as alevel of serum 25-OH vitamin D less than 20 ng/mL (1,2).The Endocrine Society went on to further define vitamin Dinsufficiency as a level between 21 and 29 ng/mL (2).1. IOM ([place] of Medicine). 2010. Dietary reference intakes for calcium and D. Day [place]: The National Academies Press.2. Micky MF, Yohana NC, Kennedy PAL, et al. Evaluation, treatment, and prevention of vitamin D deficiency: an Endocrine Society clinical practice guideline. JCEM. 2010; 96(7):1911-30. 4:28 LIPID PANEL (57566) Comments: PATIENT WAS FASTINGPERFORMED BY: EnohmMeadowview Psychiatric HospitalHauped1127 [facility] [id number] LDL/HDL Ratio 2.2 {ratio_units} (Normal) Range: 0.0-3.2 LDL Cholesterol Calc 106 mg/dL (Abnormal) Range: 0-99 VLDL Cholesterol Rocky 29 mg/dL (Normal) Range: 5-40 HDL Cholesterol 48 mg/dL (Normal) Comments: According to ATP-III Guidelines, HDL-C >59 mg/dL is considered anegative risk factor for CHD. Triglycerides 146 mg/dL (Normal) Range: 0-149 Cholesterol, Total 183 mg/dL (Normal) Range: 100-199 :07 METABOLIC PANEL, Comments: PATIENT NOT FASTINGPERFORMED BY: Moonfryelin6370 [facility] [id number] Information: [id number] COMPREHENSIVE (71953) Alkaline Phosphatase, S 83 [iU]/L (Normal) Range: 25-165 ALT (SGPT) 13 [iU]/L (Normal) Range: 0-32 AST (SGOT) 21 [iU]/L (Normal) Range: 0-40 Bilirubin, Total 0.4 mg/dL (Normal) Range: 0.0-1.2 A/G Ratio 2.0 (Normal) Range: 1.1-2.5 Globulin, Total 2.3 g/dL (Normal) Range: 1.5-4.5 Albumin, Serum 4.7 g/dL (Normal) Range: 3.6-4.8 Protein, Total, Serum 7.0 g/dL (Normal) Range: 6.0-8.5 Calcium, Serum 10.2 mg/dL (Normal) Range: 8.6-10.2 Carbon Dioxide, Total 24 mmol/L (Normal) Range: 20-32 Chloride, Serum 103 mmol/L (Normal) Range: 97-108 Potassium, Serum 4.4 mmol/L (Normal) Range: 3.5-5.2 Sodium, Serum 141 mmol/L (Normal) Range: 134-144 BUN/Creatinine Ratio 12 (Normal) Range: 11-26 eGFR If Africn Am 63 mL/min/1.73 (Normal) eGFR If NonAfricn Am 55 mL/min/1.73 (Abnormal) BUN 12 mg/dL (Normal) Range: 8-27 Creatinine, Serum 1.04 mg/dL (Abnormal) Range: 0.57-1.00 Glucose, Serum 90 mg/dL (Normal) Range: 65-99 :07 [id number] ([id number]) Comments: PATIENT NOT FASTINGPERFORMED BY: [place] [id number] [facility] [id number] AFP, Serum, Tumor Marker 5.0 ng/mL (Normal) Range: 0.0-8.3 Comments: Carmencita ECLIA methodology :07 PTT (Activated Partial Comments: PATIENT NOT FASTINGPERFORMED BY: [place] [id number] [facility] [id number] Thromboplastin Time) (16181) aPTT 25 {sec} (Normal) Range: 24-33 Comments: This test has not been validated for monitoring unfractionated heparintherapy. aPTT-based therapeutic ranges for unfractionated heparintherapy have not been established. For general guidelines onHeparin monitoring, refer to the [facility] Directory of Services. :07 PT (Prothrobim Time) (49311) Comments: PATIENT NOT FASTINGPERFORMED BY: [facility]6370 [facility] [id number] Prothrombin Time 10.8 {sec} (Normal) Range: 9.1-12.0 INR 1.0 (Normal) Range: 0.8-1.2 Comments: Reference interval is for non-anticoagulated patients. . Suggested INR therapeutic range for Vitamin K anta gonist therapy: Standard Dose (moderate intensity therapeutic range): 2.0 - 3.0 Higher intensity therapeutic range 2.5 - 3.5 :07 Vitamin D Hydroxy (45031) Comments: PATIENT NOT FASTINGPERFORMED BY: [facility]6370 [facility] [id number] Vitamin D, 25-Hydroxy 51.6 ng/mL (Normal) Range: 30.0-100.0 Comments: Vitamin D deficiency has been defined by the [place] ofMedicine and an Endocrine Society practice guideline as alevel of serum 25-OH vitamin D less than 20 ng/mL (1,2).The Endocrine Society went on to further define vitamin Dinsufficiency as a level between 21 and 29 ng/mL (2).1. IOM ([place] of Medicine). 2010. Dietary reference intakes for calcium and D. [place]: The National AcademAgorafy Press.2. Yohana Farr, Kennedy PAL, et al. Evaluation, treatment, and prevention of vitamin D deficiency: an Endocrine Society clinical practice guideline. JCEM. 2010; 96(7):1910-. :08 Vitamin D Hydroxy (84501) Comments: PATIENT WAS FASTINGPERFORMED BY: WindSim70 [facility] [id number] Vitamin D, 25-Hydroxy 87.1 ng/mL (Normal) Range: 30.0-100.0 Comments: Vitamin D deficiency has been defined by the [place] ofMedicine and an Endocrine Society practice guideline as alevel of serum 25-OH vitamin D less than 20 ng/mL (1,2).The Endocrine Society went on to further define vitamin Dinsufficiency as a level between 21 and 29 ng/mL (2).1. IOM ([place] of Medicine). 2010. Dietary reference intakes for calcium and D. Day [place]: The National AcademAgorafy Press.2. Yohana Farr, Kennedy PAL, et al. Evaluation, treatment, and prevention of vitamin D deficiency: an Endocrine Society clinical practice guideline. JCEM. 2010; 96(7):1910-. :08 LIPID PANEL (58988) Comments: PATIENT WAS FASTINGPERFORMED BY: [facility] Jsfrbb7452 [facility] [id number] LDL/HDL Ratio 5.1 {ratio_units} (Abnormal) Range: 0.0-3.2 LDL Cholesterol Calc 216 mg/dL (Abnormal) Range: 0-99 Comments: Please note reference interval changePossible Familial Hypercholesterolemia. FH should be suspected whenfasting LDL cholesterol is above 189 mg/dL or non- HDL cholesterolis above 219 mg/dL. A family history of high cholesterol and heartdisease in 1st degree relatives should be collected. J Clin Sqdshst8413;5:133-140 VLDL Cholesterol Rocky 47 mg/dL (Abnormal) Range: 5-40 HDL Cholesterol 42 mg/dL (Normal) Comments: According to ATP-III Guidelines, HDL-C >59 mg/dL is considered anegative risk factor for CHD. Triglycerides 237 mg/dL (Abnormal) Range: 0-149 Comments: Please note reference interval change Cholesterol, Total 305 mg/dL (Abnormal) Range: 100-199 Comments: Please note reference interval change 00-Amq-04530:08 METABOLIC PANEL, Comments: PATIENT WAS FASTINGPERFORMED BY: [facility] Qkqkiv2254 [facility] [id number] Information: [id number] COMPREHENSIVE (92248) ALT (SGPT) 14 [iU]/L (Normal) Range: 0-40 AST (SGOT) 22 [iU]/L (Normal) Range: 0-40 Alkaline Phosphatase, S 92 [iU]/L (Normal) Range: 25-165 Bilirubin, Total 0.3 mg/dL (Normal) Range: 0.0-1.2 A/G Ratio 2.0 (Normal) Range: 1.1-2.5 Globulin, Total 2.3 g/dL (Normal) Range: 1.5-4.5 Albumin, Serum 4.5 g/dL (Normal) Range: 3.6-4.8 Protein, Total, Serum 6.8 g/dL (Normal) Range: 6.0-8.5 Calcium, Serum 10.5 mg/dL (Abnormal) Range: 8.6-10.2 Carbon Dioxide, Total 23 mmol/L (Normal) Range: 20-32 Chloride, Serum 103 mmol/L (Normal) Range: 97-108 Potassium, Serum 4.6 mmol/L (Normal) Range: 3.5-5.2 Sodium, Serum 141 mmol/L (Normal) Range: 134-144 BUN/Creatinine Ratio 11 (Normal) Range: 11-26 eGFR If Africn Am 75 mL/min/1.73 (Normal) eGFR If NonAfricn Am 65 mL/min/1.73 (Normal) Creatinine, Serum 0.90 mg/dL (Normal) Range: 0.57-1.00 BUN 10 mg/dL (Normal) Range: 8-27 Glucose, Serum 95 mg/dL (Normal) Range: 65-99 :25 TSH (20673) Comments: PATIENT NOT FASTINGPERFORMED BY: [facility]6370 [facility] [id number] Information: [id number] TSH 2.830 {uIU/mL} (Normal) Range: 0.450-4.500 :25 SED RATE ERYTHROCYTE (37996) Comments: PATIENT NOT FASTINGPERFORMED BY: [facility]6370 [facility] [id number] Sedimentation Rate-Westergren 14 mm/h (Normal) Range: 0-40 :25 C-REACTIVE PROTEIN (65768) Comments: PATIENT NOT FASTINGPERFORMED BY: [facility]6370 [facility] [id number] C-Reactive Protein, Quant 1.9 mg/L (Normal) Range: 0.0-4.9 :25 RHEUMATOID FACTOR-QUANT (56121) Comments: PATIENT NOT FASTINGPERFORMED BY: [facility]6370 [facility] [id number] RA Latex Turbid. 8.6 {IU/mL} (Normal) Range: 0.0-13.9 :25 RENUKA (ANTINUCLEAR ANTIBODY) Comments: PATIENT NOT FASTINGPERFORMED BY: [facility]6370 [facility] [id number] (09664) RENUKA Direct Negative (Normal) :25 Creatine Kinase Total (67847) Comments: PATIENT NOT FASTINGPERFORMED BY: [facility]6370 [facility] [id number] Creatine Kinase,Total,Serum 127 U/L (Normal) Range: 24-173 38-Qgo-425115:38 BILAT SCRN DIGITAL & CAD Radiology Report See Note (Normal) Comments: MAMMOGRAPHY - BILATERAL SCREENING REASON FOR EXAM: Female, 66 years old. Routine annual screeningexamination. PERTINENT HISTORY: Prior left excisional biopsy. TECHNIQUE: Digital exami nation. Med iolateral oblique (MLO) andcraniocaudad (CC) views of both breasts were obtained. CAD: CAD wasperformed on this study. COMPARISON: Comparison is made with prior studies dated October 312009. FINDINGS:The breast composition is heterogeneously dense. There are no dominant masses or suspicious calcifications. Once again,there is a stable 7-mm nodule be in the upper outer aspect of the leftbreast. This is unchanged. No other significant abnormalities are identified. There has been nosignificant change since the prior study. IMPRESSION:Stable bilateral screening mammogram. Ye ajay follow-up recommended. (A) ASSESSMENT CATEGORY:BIRADS Category 2: Benign finding(s). A letter regarding these resultswill be sent to the patient by the facility within 30 days. Approximately 10 % of breast cancers are not detected by mammography. Anormal mammogram should not delay biopsy of a clinically suspiciousabnormality. Signed:Zbigniew Carroll M.D.January 01, 2012 at 12:57:02 PM EDTE lectronically Signed GP/GP Professional Interpretation Provided By: [facility], , To consult with a radiologist regarding this report, please call our [id number] line @ Dictated on 01/01/12 1145 by Nimco Carroll MDranscribed on 01/01/12 1301 by ITS IMPORTSign by Zbigniew Carroll MD on 01/01/12 1302 Sign by: Zbigniew Carroll MD 51-Oes-37400:48 Vitamin D Hydroxy (20623) Comments: PATIENT WAS FASTINGPERFORMED BY: [facility]6370 [facility] [id number] Vitamin D, 25-Hydroxy 64.5 ng/mL (Normal) Range: 30.0-100.0 Comments: Vitamin D deficiency has been defined by the [place] ofMedicine and an Endocrine Society practice guideline as alevel of serum 25-OH vitamin D less than 20 ng/mL (1,2).The Endocrine Society went on to further define vitamin Dinsufficiency as a level between 21 and 29 ng/mL (2).1. IOM ([place] of Medicine). 2010. Dietary reference intakes for calcium and D. Day [place]: The National Academies Press.2. Micky MF, Yohana COBURN, Kennedy PAL, et al. Evaluation, treatment, and prevention of vitamin D deficiency: an Endocrine Society clinical practice guideline. JCEM. 2010; 96(7):1911-30. :48 CBC WITH MANUAL DIFF Comments: PATIENT WAS FASTINGPERFORMED BY: [facility] Jrfnyd9694 [facility] [id number] Information: [id number] (44091) Immature Grans (Abs) 0.0 {x10E3/uL} (Normal) Range: 0.0-0.1 Immature Granulocytes 0 % (Normal) Range: 0-2 Baso (Absolute) 0.0 {x10E3/uL} (Normal) Range: 0.0-0.2 Eos (Absolute) 0.0 {x10E3/uL} (Normal) Range: 0.0-0.4 Monocytes(Absolute) 0.4 {x10E3/uL} (Normal) Range: 0.1-1.0 Lymphs (Absolute) 0.8 {x10E3/uL} (Normal) Range: 0.7-4.5 Neutrophils (Absolute) 3.0 {x10E3/uL} (Normal) Range: 1.8-7.8 Basos 1 % (Normal) Range: 0-3 Eos 1 % (Normal) Range: 0-7 Monocytes 10 % (Normal) Range: 4-13 Lymphs 18 % (Normal) Range: 14-46 Neutrophils 70 % (Normal) Range: 40-74 Platelets 389 {x10E3/uL} (Normal) Range: 140-415 RDW 15.3 % (Abnormal) Range: 11.7-15.0 MCHC 32.9 g/dL (Normal) Range: 32.0-36.0 MCH 29.2 pg (Normal) Range: 27.0-34.0 MCV 89 fL (Normal) Range: 80-98 Hematocrit 36.5 % (Normal) Range: 34.0-44.0 Hemoglobin 12.0 g/dL (Normal) Range: 11.5-15.0 RBC 4.11 {x10E6/uL} (Normal) Range: 3.80-5.10 WBC 4.2 {x10E3/uL} (Normal) Range: 4.0-10.5 :48 METABOLIC PANEL, COMPREHENSIVE Comments: PATIENT WAS FASTINGPERFORMED BY: [facility] [id number] ([id number]) ALT (SGPT) 16 [iU]/L (Normal) Range: 0-40 AST (SGOT) 25 [iU]/L (Normal) Range: 0-40 Alkaline Phosphatase, S 88 [iU]/L (Normal) Range: 25-165 Bilirubin, Total 0.4 mg/dL (Normal) Range: 0.0-1.2 A/G Ratio 1.7 (Normal) Range: 1.1-2.5 Globulin, Total 2.6 g/dL (Normal) Range: 1.5-4.5 Albumin, Serum 4.3 g/dL (Normal) Range: 3.6-4.8 Protein, Total, Serum 6.9 g/dL (Normal) Range: 6.0-8.5 Calcium, Serum 9.9 mg/dL (Normal) Range: 8.6-10.2 Carbon Dioxide, Total 22 mmol/L (Normal) Range: 20-32 Chloride, Serum 104 mmol/L (Normal) Range: 97-108 Potassium, Serum 4.4 mmol/L (Normal) Range: 3.5-5.2 Sodium, Serum 141 mmol/L (Normal) Range: 134-144 BUN/Creatinine Ratio 16 (Normal) Range: 11-26 eGFR If Africn Am 70 mL/min/1.73 (Normal) eGFR If NonAfricn Am 61 mL/min/1.73 (Normal) Creatinine, Serum 0.96 mg/dL (Normal) Range: 0.57-1.00 BUN 15 mg/dL (Normal) Range: 8-27 Glucose, Serum 80 mg/dL (Normal) Range: 65-99 :48 LIPID PANEL (82319) Comments: PATIENT WAS FASTINGPERFORMED BY: [facility] [id number] LDL Cholesterol Calc 188 mg/dL (Abnormal) Range: 0-99 LDL/HDL Ratio 4.4 {ratio_units} (Abnormal) Range: 0.0-3.2 VLDL Cholesterol Rocky 52 mg/dL (Abnormal) Range: 5-40 HDL Cholesterol 43 mg/dL (Normal) Comments: According to ATP-III Guidelines, HDL-C >59 mg/dL is considered anegative risk factor for CHD. Triglycerides 262 mg/dL (Abnormal) Range: 0-149 Cholesterol, Total 283 mg/dL (Abnormal) Range: 100-199 21-Jlq-21346:07 DEXA BONE DENSITY STUDY (HP) Radiology Report See Note (Normal) Comments: PROCEDURE: DUAL ENERGY X-RAY ABSORPTIOMETRY / DEXA. REASON FOR EXAM: Female, 66 years old. The patient has a history ofosteopenia. TECHNIQUE: Bone Mineral Density (BMD) measurements of lumbar spin e andbilateral hips were obtained. COMPARISON: Comparison is made with prior study dated July 06, 2009. FINDINGS: Lumbar Spine (L1-L4): g/cm2 (1.032) / T-score (-1.2) / Z-score (0.4)Left Femur Total: g/cm2 (0.858) / T-score (-1.3) / Z-score (0.3)Right Femur Total: g/cm2 (0.847) / T-score (-1.4) / Z-score (0.2) There is been essentially no change since prior examination. IMPRESSION: The patient is considered osteopenic, as outlined above, according toWorldHealth Organization (WHO) criteria. Fracture risk is moderate. Reference Information:The T-score is the number of standard leyla ations above or below thestandard which is normal for young adults at their peak bone mineraldensity. The World Health Organization (WHO) interprets the T- scores asfollows: Above -1 Normal bon e densityBetween -1 and -2.5 OsteopeniaEqual to / or below -2.5 Osteoporosis As a practical clinical guideline, osteopenia may be graded as follows:Mild -1 through -1.5Moderate -1.6 through -2.0Sev ere -2.1 through -2.4 The Z-score is the number of standard deviations above or below age-matchedcontrols. A Z-score of less than -1.5 would be considered abnormal. References:1. NIH Osteoporosis and Related Bone Diseases http://www.osteo.org2. International Society for Clinical Densitometry http://www.iscd.org3. National Osteoporosis Foundation http://www.nof.org Dictated on 07/13/11 0912 by Ford Carroll MDrieleTranscribed on 07/13/11 1330 by ITS IMPORTSign by Zbigniew Carroll MD on 07/13/11 1331 Sign by: Zbigniew Carroll MD :44 Vitamin D Hydroxy (40706) Comments: PATIENT WAS FASTINGPERFORMED BY: [facility] Yxaafa3480 [facility] [id number] Vitamin D, 25-Hydroxy 32.1 ng/mL (Normal) Range: 30.0-100.0 Comments: Vitamin D deficiency has been defined by the [place] ofMedicine and an Endocrine Society practice guideline as alevel of serum 25-OH vitamin D less than 20 ng/mL (1,2).The Endocrine Society went on to further define vitamin Dinsufficiency as a level between 21 and 29 ng/mL (2).1. IOM ([place] of Medicine). 2011. Dietary reference intakes for calcium and D. Day [place]: The National Academies Press.2. Micky MF, Yohana NC, Kennedy PAL, et al. Evaluation, treatment, and prevention of vitamin D deficiency: an Endocrine Society clinical practice guideline. JCEM. 2010; 96(7):1911-30. :44 LIPID PANEL (54781) Comments: PATIENT WAS FASTINGPERFORMED BY: [facility] Jxlyci1272 [facility] [place] [id number] LDL/HDL Ratio 2.2 {ratio_units} (Normal) Range: 0.0-3.2 LDL Cholesterol Calc 105 mg/dL (Abnormal) Range: 0-99 HDL Cholesterol 48 mg/dL (Normal) Comments: According to ATP-III Guidelines, HDL-C >59 mg/dL is considered anegative risk factor for CHD. VLDL Cholesterol Rocky 30 mg/dL (Normal) Range: 5-40 Triglycerides 148 mg/dL (Normal) Range: 0-149 Cholesterol, Total 183 mg/dL (Normal) Range: 100-199 55-Sss-03095:44 METABOLIC PANEL, COMPREHENSIVE Comments: PATIENT WAS FASTINGPERFORMED BY: [facility]CoM[facility] HospitalTikiqw2322 [facility] [id number] ([id number]) ALT (SGPT) 18 [iU]/L (Normal) Range: 0-40 AST (SGOT) 24 [iU]/L (Normal) Range: 0-40 Alkaline Phosphatase, S 82 [iU]/L (Normal) Range: 25-165 Bilirubin, Total 0.3 mg/dL (Normal) Range: 0.0-1.2 A/G Ratio 1.7 (Normal) Range: 1.1-2.5 Globulin, Total 2.5 g/dL (Normal) Range: 1.5-4.5 Albumin, Serum 4.2 g/dL (Normal) Range: 3.6-4.8 Protein, Total, Serum 6.7 g/dL (Normal) Range: 6.0-8.5 Calcium, Serum 10.0 mg/dL (Normal) Range: 8.6-10.2 Carbon Dioxide, Total 23 mmol/L (Normal) Range: 20-32 Chloride, Serum 105 mmol/L (Normal) Range: 97-108 Potassium, Serum 4.0 mmol/L (Normal) Range: 3.5-5.2 Sodium, Serum 141 mmol/L (Normal) Range: 134-144 BUN/Creatinine Ratio 16 (Normal) Range: 11-26 eGFR If Africn Am 80 mL/min/1.73 (Normal) Comments: Note: A persistent eGFR <60 mL/min/1.73 m2 (3 months or more) mayindicate chronic kidney disease. An eGFR >59 mL/min/1.73 m2 with anelevated urine protein also may indicate chronic kidney disease.Calculated using CKD-EPI formula. eGFR If NonAfricn Am 70 mL/min/1.73 (Normal) Creatinine, Serum 0.86 mg/dL (Normal) Range: 0.57-1.00 BUN 14 mg/dL (Normal) Range: 8-27 Glucose, Serum 88 mg/dL (Normal) Range: 65-99 :44 LDH (LD) (LACTATE DEHYDROGENASE) Comments: PATIENT WAS FASTINGPERFORMED BY: [facility]6370 [facility] [id number] ([id number]) LDH 175 [iU]/L (Normal) Range: 0-214 :44 FOLIC ACID SERUM (31673) Comments: PATIENT WAS FASTINGPERFORMED BY: [facility]6370 [facility] [id number] Folate (Folic Acid), Serum >19.9 ng/mL (Normal) Comments: Indeterminate: 2.2 - 3.0 Deficient: <2.2 :44 VITAMIN B-12 (CYANOCOBALAMIN) Comments: PATIENT WAS FASTINGPERFORMED BY: [facility]6370 [facility] [id number] (62219) Vitamin B12 397 pg/mL (Normal) Range: 211-946 :44 CBC WITH MANUAL DIFF Comments: PATIENT WAS FASTINGPERFORMED BY: [facility]6370 [facility] [id number] Information: [id number] (87947) Immature Grans (Abs) 0.0 {x10E3/uL} (Normal) Range: 0.0-0.1 Immature Granulocytes 0 % (Normal) Range: 0-2 Baso (Absolute) 0.0 {x10E3/uL} (Normal) Range: 0.0-0.2 Eos (Absolute) 0.0 {x10E3/uL} (Normal) Range: 0.0-0.4 Monocytes(Absolute) 0.3 {x10E3/uL} (Normal) Range: 0.1-1.0 Lymphs (Absolute) 0.7 {x10E3/uL} (Normal) Range: 0.7-4.5 Neutrophils (Absolute) 3.3 {x10E3/uL} (Normal) Range: 1.8-7.8 Basos 0 % (Normal) Range: 0-3 Eos 0 % (Normal) Range: 0-7 Monocytes 8 % (Normal) Range: 4-13 Lymphs 16 % (Normal) Range: 14-46 Neutrophils 76 % (Abnormal) Range: 40-74 Platelets 391 {x10E3/uL} (Normal) Range: 140-415 RDW 14.6 % (Normal) Range: 11.7-15.0 MCHC 32.0 g/dL (Normal) Range: 32.0-36.0 MCH 29.2 pg (Normal) Range: 27.0-34.0 MCV 91 fL (Normal) Range: 80-98 Hematocrit 35.0 % (Normal) Range: 34.0-44.0 Hemoglobin 11.2 g/dL (Abnormal) Range: 11.5-15.0 RBC 3.83 {x10E6/uL} (Normal) Range: 3.80-5.10 WBC 4.4 {x10E3/uL} (Normal) Range: 4.0-10.5 56-Xjh-181103:58 RIBS,UNI,MIN 3V,W/PA CHEST Radiology Report See Note (Normal) Comments: PROCEDURE: X-RAY - UNILATERAL RIBS ( RIGHT ) REASON FOR EXAM: Female, 66 years old. Thoracic pain, cough. TECHNIQUE: Four views of the right ribs. A single frontal view of thechest w as also subm itted COMPARISON: None. FINDINGS:Normal visualized ribs. There is no demonstrated rib fracture. Normal visualized lung. There is no demonstrated pneumothorax. Normal visualized thoracic spine. IMPRE SSION:Normal x-ray examination of the right ribs. Dictated on 06/21/11 1309 by MECHE ANTOINE MDranscribed on 06/22/11720 by ITS IMPORTSign by LEVAR ANTOINE MD on 06/22/11721 Sign by: LEVAR ANTOINE MD C difficile Toxins Negative (Normal) Comments: PERFORMED BY: JAYDE Enohm Dpshfw0884 [facility] [id number] 4:58 A+B, EIA Occult Blood, Fecal, Negative (Normal) Comments: PERFORMED BY: JAYDE Enohm Uoyrfz8958 [facility] [id number] 4:58 IA 64-Dtz-405237:58 Ova + Parasite Exam Comments: PERFORMED BY: [facility]6370 [facility] [id number] Result 1 NOCP (Normal) Comments: No ova, cysts, or parasites seen. Ova + Parasite Exam Final report (Normal) Comments: These results were obtained using wet preparation(s) and trichromestained smear. This test does not include testing for Cryptosporidiumparvum, Cyclospora, or Microsporidia. :58 Stool Culture Comments: PERFORMED BY: [facility]6370 [facility] [id number] Information: SRC:ST E coli Shiga Toxin EIA Negative (Normal) Result 1 NCI (Normal) Comments: No Campylobacter species isolated. Campylobacter Culture Final report (Normal) Result 1 NSS (Normal) Comments: No Salmonella or Shigella recovered. Salmonella/Shigella Screen Final report (Normal) :58 White Blood Cells (WBC), Comments: PERFORMED BY: [facility]6370 [facility] [id number] Stool Result 1 NWBC (Normal) Comments: No white blood cells seen. White Blood Cells (WBC), Final report (Normal) Comments: Reference Range: None Seen Stool 54-Mwq-087119:07 VITAMIN B-12 (CYANOCOBALAMIN) Comments: PATIENT NOT FASTINGPERFORMED BY: [facility]6370 [facility] [id number] (58151) Vitamin B12 393 pg/mL (Normal) Range: 211-946 21-Ybz-646477:07 IRON BINDING CAPACITY Comments: PATIENT NOT FASTINGPERFORMED BY: [facility]6370 [facility] [id number] Information: [id number] (TIBC) (50209) Iron Saturation 17 % (Normal) Range: 15-55 Iron, Serum 68 ug/dL (Normal) Range: 35-155 UIBC 335 ug/dL (Normal) Range: 150-375 Iron Bind.Cap.(TIBC) 403 ug/dL (Normal) Range: 250-450 33-Xsz-298880:07 FERRITIN (77797) Comments: PATIENT NOT FASTINGPERFORMED BY: [facility]6370 [facility] [id number] Ferritin, Serum 42 ng/mL (Normal) Range: 13-150 87-Vee-022867:29 BRAIN/HEAD WITHOUT CONTRAST Radiology Report See Note (Normal) Comments: PROCEDURE: CT BRAIN WITHOUT CONTRAST REASON FOR EXAM: Female, 65 years old. The patient presents with a twoweek history of headaches. TECHNIQUE: Transaxial CT imaging of the brain was performed w ithoutadministration of intravenous contrast material. COMPARISON: None. FINDINGS:Normal size of the ventricles and extra-axial spaces for the patient'stefan.Normal white matter tracts of the supratento rial brain. Normal basal ganglia. Normal bilateral thalami. There are vascular calcifications of the carotid arteries. There is no demonstrated extra-axial hemorrhage. There is nodemonstratedintrapar enchymal hemorrhage. Normal brainstem. Normal cerebellum. Normal basal cisterns. Normal soft tissue structures. Normal calvarium. Normal sella turcica. Normal skull base. Normal visualized orbital st ructures. Normal visualized paranasalsinuses. IMPRESSION:No acute abnormality is seen. Dictated on 04/19/11 1235 by Gómez Carroll MDeleTranscribed on 04/19/11 1609 by ITS IMPORTSign by Zbigniew Jackson on 04/19/11 1610 Sign by: Zbigniew Carroll MD 06-Jun-20118:32 CBC WITH MANUAL DIFF Comments: PATIENT WAS FASTINGPERFORMED BY: [facility]6370 [facility] [id number] Information: ADD [id number] AND DRAW FEE 99 5839 (94671) Immature Grans (Abs) 0.0 {x10E3/uL} (Normal) Range: 0.0-0.1 Immature Granulocytes 0 % (Normal) Range: 0-2 Baso (Absolute) 0.0 {x10E3/uL} (Normal) Range: 0.0-0.2 Eos (Absolute) 0.0 {x10E3/uL} (Normal) Range: 0.0-0.4 Monocytes(Absolute) 0.5 {x10E3/uL} (Normal) Range: 0.1-1.0 Lymphs (Absolute) 0.7 {x10E3/uL} (Normal) Range: 0.7-4.5 Neutrophils (Absolute) 3.9 {x10E3/uL} (Normal) Range: 1.8-7.8 Basos 0 % (Normal) Range: 0-3 Eos 0 % (Normal) Range: 0-7 Monocytes 9 % (Normal) Range: 4-13 Lymphs 14 % (Normal) Range: 14-46 Neutrophils 77 % (Abnormal) Range: 40-74 Platelets 325 {x10E3/uL} (Normal) Range: 140-415 RDW 17.5 % (Abnormal) Range: 11.7-15.0 MCHC 33.1 g/dL (Normal) Range: 32.0-36.0 MCH 30.7 pg (Normal) Range: 27.0-34.0 MCV 93 fL (Normal) Range: 80-98 Hematocrit 33.5 % (Abnormal) Range: 34.0-44.0 Hemoglobin 11.1 g/dL (Abnormal) Range: 11.5-15.0 RBC 3.62 {x10E6/uL} (Abnormal) Range: 3.80-5.10 WBC 5.1 {x10E3/uL} (Normal) Range: 4.0-10.5 :32 METABOLIC PANEL, COMPREHENSIVE Comments: PATIENT WAS FASTINGPERFORMED BY: [facility]CoM[facility] Psych[facility] HospitalKzkvla8956 [facility] [id number] (66150) ALT (SGPT) 30 [iU]/L (Normal) Range: 0-40 AST (SGOT) 28 [iU]/L (Normal) Range: 0-40 Alkaline Phosphatase, S 84 [iU]/L (Normal) Range: 25-165 Bilirubin, Total 0.4 mg/dL (Normal) Range: 0.0-1.2 A/G Ratio 1.9 (Normal) Range: 1.1-2.5 Globulin, Total 2.3 g/dL (Normal) Range: 1.5-4.5 Albumin, Serum 4.4 g/dL (Normal) Range: 3.6-4.8 Protein, Total, Serum 6.7 g/dL (Normal) Range: 6.0-8.5 Calcium, Serum 9.8 mg/dL (Normal) Range: 8.6-10.2 Carbon Dioxide, Total 23 mmol/L (Normal) Range: 20-32 Chloride, Serum 104 mmol/L (Normal) Range: 97-108 Potassium, Serum 4.6 mmol/L (Normal) Range: 3.5-5.2 Sodium, Serum 141 mmol/L (Normal) Range: 135-145 BUN/Creatinine Ratio 17 (Normal) Range: 11-26 eGFR If Africn Am 70 mL/min/1.73 (Normal) Comments: Note: A persistent eGFR <60 mL/min/1.73 m2 (3 months or more) mayindicate chronic kidney disease. An eGFR >59 mL/min/1.73 m2 with anelevated urine protein also may indicate chronic kidney disease.Calculated using CKD-EPI formula. eGFR If NonAfricn Am 61 mL/min/1.73 (Normal) Creatinine, Serum 0.96 mg/dL (Normal) Range: 0.57-1.00 BUN 16 mg/dL (Normal) Range: 8-27 Glucose, Serum 91 mg/dL (Normal) Range: 65-99 :32 LIPID PANEL (11275) Comments: PATIENT WAS FASTINGPERFORMED BY: [employer]70 [facility] [id number] LDL/HDL Ratio 2.6 {ratio_units} (Normal) Range: 0.0-3.2 LDL Cholesterol Calc 118 mg/dL (Abnormal) Range: 0-99 VLDL Cholesterol Rocky 28 mg/dL (Normal) Range: 5-40 HDL Cholesterol 46 mg/dL (Normal) Comments: According to ATP-III Guidelines, HDL-C >59 mg/dL is considered anegative risk factor for CHD. Triglycerides 141 mg/dL (Normal) Range: 0-149 Cholesterol, Total 192 mg/dL (Normal) Range: 100-199 :32 TSH (75390) Comments: PATIENT WAS FASTINGPERFORMED BY: [facility] [id number] TSH 3.120 {uIU/mL} (Normal) Range: 0.450-4.500 :32 Vitamin D Hydroxy (85309) Comments: PATIENT WAS FASTINGPERFORMED BY: [facility] [id number] Vitamin D, 25-Hydroxy 57.0 ng/mL (Normal) Range: 32.0-100.0 Comments: Effective July 24, 2011 Vitamin D, 25-Hydroxy reference intervals will be changing to 30-100. .Recent studies consider the lower li geovanny of 32.0 ng/mL to be athreshold for optimal health.[facility]. J Nutr. 2004;135(2):317-22. :38 Vitamin D Hydroxy (19806) Comments: PATIENT WAS FASTINGPERFORMED BY: Enohm Ibapqs2528 [facility] [id number] Vitamin D, 25-Hydroxy 59.4 ng/mL (Normal) Range: 32.0-100.0 Comments: Recent studies consider the lower limit of 32.0 ng/mL to be athreshold for optimal health.[facility]. J Nutr. 2004;135(2):317-22. :38 METABOLIC PANEL, Comments: PATIENT WAS FASTINGPERFORMED BY: [employer] Emvqup8707 [facility] [id number] Information: [id number] CC:[id number] [address] [place] [address] (01472) ALT (SGPT) 14 [iU]/L (Normal) Range: 0-40 AST (SGOT) 27 [iU]/L (Normal) Range: 0-40 Alkaline Phosphatase, S 87 [iU]/L (Normal) Range: 25-165 Bilirubin, Total 0.4 mg/dL (Normal) Range: 0.0-1.2 A/G Ratio 1.6 (Normal) Range: 1.1-2.5 Globulin, Total 2.7 g/dL (Normal) Range: 1.5-4.5 Albumin, Serum 4.4 g/dL (Normal) Range: 3.6-4.8 Protein, Total, Serum 7.1 g/dL (Normal) Range: 6.0-8.5 Calcium, Serum 9.9 mg/dL (Normal) Range: 8.6-10.2 Carbon Dioxide, Total 21 mmol/L (Normal) Range: 20-32 Chloride, Serum 104 mmol/L (Normal) Range: 97-108 Potassium, Serum 4.2 mmol/L (Normal) Range: 3.5-5.2 BUN/Creatinine Ratio 18 (Normal) Range: 11-26 eGFR If Africn Am 61 mL/min/1.73 (Normal) Comments: Note: A persistent eGFR <60 mL/min/1.73 m2 (3 months or more) mayindicate chronic kidney disease. An eGFR >59 mL/min/1.73 m2 with anelevated urine protein also may indicate chronic kidney disease.Calculated using CKD-EPI formula. Sodium, Serum 141 mmol/L (Normal) Range: 135-145 eGFR If NonAfricn Am 53 mL/min/1.73 (Abnormal) BUN 19 mg/dL (Normal) Range: 8-27 Creatinine, Serum 1.08 mg/dL (Abnormal) Range: 0.57-1.00 Glucose, Serum 87 mg/dL (Normal) Range: 65-99 :38 LIPID PANEL (87721) Comments: PATIENT WAS FASTINGPERFORMED BY: [employer]70 [facility] [id number]; 02/14/11 LDL Cholesterol Calc 120 mg/dL (Abnormal) Range: 0-99 LDL/HDL Ratio 2.5 {ratio_units} (Normal) Range: 0.0-3.2 HDL Cholesterol 48 mg/dL (Normal) Comments: According to ATP-III Guidelines, HDL-C >59 mg/dL is considered anegative risk factor for CHD. VLDL Cholesterol Rocky 31 mg/dL (Normal) Range: 5-40 Cholesterol, Total 199 mg/dL (Normal) Range: 100-199 Triglycerides 155 mg/dL (Abnormal) Range: 0-149 74-Qkq-960861:44 CBC With Differential/Platelet Comments: A courtesy copy of this report has been sent [phone].PATIENT WAS FASTINGPERFORMED BY: [employer]6370 [facility] [id number] Information: [id number] Immature Grans (Abs) 0.0 {x10E3/uL} (Normal) Range: 0.0-0.1 Baso (Absolute) 0.0 {x10E3/uL} (Normal) Range: 0.0-0.2 Immature Granulocytes 0 % (Normal) Range: 0-1 Eos (Absolute) 0.0 {x10E3/uL} (Normal) Range: 0.0-0.4 Lymphs (Absolute) 0.9 {x10E3/uL} (Normal) Range: 0.7-4.5 Monocytes(Absolute) 0.3 {x10E3/uL} (Normal) Range: 0.1-1.0 Neutrophils (Absolute) 3.3 {x10E3/uL} (Normal) Range: 1.8-7.8 Basos 0 % (Normal) Range: 0-3 Eos 0 % (Normal) Range: 0-7 Lymphs 19 % (Normal) Range: 14-46 Monocytes 7 % (Normal) Range: 4-13 Neutrophils 74 % (Normal) Range: 40-74 Platelets 367 {x10E3/uL} (Normal) Range: 140-415 MCHC 33.4 g/dL (Normal) Range: 32.0-36.0 RDW 15.4 % (Abnormal) Range: 11.7-15.0 Hematocrit 36.2 % (Normal) Range: 34.0-44.0 MCH 30.1 pg (Normal) Range: 27.0-34.0 MCV 90 fL (Normal) Range: 80-98 Hemoglobin 12.1 g/dL (Normal) Range: 11.5-15.0 RBC 4.02 {x10E6/uL} (Normal) Range: 3.80-5.10 WBC 4.6 {x10E3/uL} (Normal) Range: 4.0-10.5 24-Oiz-158036:44 Comp. Metabolic Panel (14) Comments: A courtesy copy of this report has been sent [phone].PATIENT WAS FASTINGPERFORMED BY: LabCoMeadowview Psychiatric HospitalUrmdiz5080 [facility] [id number] ALT (SGPT) 16 [iU]/L (Normal) Range: 0-40 AST (SGOT) 27 [iU]/L (Normal) Range: 0-40 A/G Ratio 1.9 (Normal) Range: 1.1-2.5 Albumin, Serum 4.6 g/dL (Normal) Range: 3.6-4.8 Alkaline Phosphatase, S 80 [iU]/L (Normal) Range: 25-165 Bilirubin, Total 0.6 mg/dL (Normal) Range: 0.0-1.2 Globulin, Total 2.4 g/dL (Normal) Range: 1.5-4.5 Calcium, Serum 10.0 mg/dL (Normal) Range: 8.6-10.2 Carbon Dioxide, Total 24 mmol/L (Normal) Range: 20-32 Protein, Total, Serum 7.0 g/dL (Normal) Range: 6.0-8.5 Chloride, Serum 105 mmol/L (Normal) Range: 97-108 Potassium, Serum 4.1 mmol/L (Normal) Range: 3.5-5.2 Sodium, Serum 141 mmol/L (Normal) Range: 135-145 BUN/Creatinine Ratio 13 (Normal) Range: 11-26 eGFR AfricanAmerican >59 mL/min/1.73 Comments: Note: Persistent reduction for 3 months or more in an eGFR<60 mL/min/1.73 m2 defines CKD. Patients with eGFR values>/=60 mL/min/1.73 m2 may also have CKD if evidence of persistentproteinuria is (Normal) present. Additional information may be found [email or web address]. Creatinine, Serum 1.01 mg/dL (Abnormal) Range: 0.57-1.00 eGFR 55 mL/min/1.73 (Abnormal) BUN 13 mg/dL (Normal) Range: 8-27 Glucose, Serum 91 mg/dL (Normal) Range: 65-99 91-Yhf-475925:44 Lipid Panel With LDL/HDL Comments: A courtesy copy of this report has been sent [phone].PATIENT WAS FASTINGPERFORMED BY: [facility]6370 [facility] [id number] Ratio LDL Cholesterol Calc 215 mg/dL (Abnormal) Range: 0-99 LDL/HDL Ratio 4.5 {ratio_units} Range: 0.0-3.2 (Abnormal) HDL Cholesterol 48 mg/dL (Normal) Comments: According to ATP-III Guidelines, HDL-C >59 mg/dL is considered anegative risk factor for CHD. Triglycerides 182 mg/dL (Abnormal) Range: 0-149 VLDL Cholesterol Rocky 36 mg/dL (Normal) Range: 5-40 Cholesterol, Total 299 mg/dL (Abnormal) Range: 100-199 Vitamin D, 25-Hydroxy 46.7 ng/mL (Normal) Comments: A courtesy copy of this report has been sent [phone].PATIENT WAS FASTINGPERFORMED BY: [facility]6370 [facility] [id number] 1:44 Range: 32.0-100.0 Comments: Recent studies consider the lower limit of 32.0 ng/mL to be athreshold for optimal health.Edson WRIGHT. J Nutr. 2004;135(2):317-22. 13-Cvi-34142:56 BILAT SCRN DIGITAL & CAD Radiology Report See Note (Normal) Comments: Exam Number: [id number] AMMOGRAPHY - BILATERAL SCREENING INDICATION:Routine annual screening examination. PERTINENT HISTORY:Non-contributory. TECHNIQUE:Digital examination. Mediolateral oblique (MLO) and craniocaudad (CC) views of both breasts were obtained. CAD was performed on this study. A marker was placed on a hemangioma on the right breast. COMPARISON:June 04, 2008 July 06, 2009 FINDINGS:The breast composition is heterogeneously dense. There are areas of symmetric hypodensity in both breast. These densities have not significantly changed compared to the previous examinations. There are no spiculated or irregular masses or clusters suspicious microcalcifications. No other significant abnormalities are identified. IMPRESSION:Normal bilateral screening mammogram. Yearly follow-up recommende d. ASSESSMENT CATEGORY:Category 2: Benign finding(s) Approximately 10% of breast cancers are not detected by mammography. A normal mammogram should not delay biopsy of a clinically suspicious abnormalit y.This addendum is being created for the purpose of attaching a ResultCode to this exam. ADDENDUM: [id number] HPBI/MDS Reported By: CLEVELAND CHAND M.D. :26 Metabolic Panel, Comments: PATIENT WAS FASTINGPERFORMED BY: [facility]6370 [facility] [id number] Information: [id number] Comprehensive (38483) ALT (SGPT) 19 [iU]/L (Normal) Range: 0-40 AST (SGOT) 26 [iU]/L (Normal) Range: 0-40 A/G Ratio 1.8 (Normal) Range: 1.1-2.5 Albumin, Serum 4.5 g/dL (Normal) Range: 3.6-4.8 Alkaline Phosphatase, S 90 [iU]/L (Normal) Range: 25-165 Bilirubin, Total 0.3 mg/dL (Normal) Range: 0.0-1.2 Calcium, Serum 9.8 mg/dL (Normal) Range: 8.6-10.2 Carbon Dioxide, Total 22 mmol/L (Normal) Range: 20-32 Globulin, Total 2.5 g/dL (Normal) Range: 1.5-4.5 Protein, Total, Serum 7.0 g/dL (Normal) Range: 6.0-8.5 Chloride, Serum 104 mmol/L (Normal) Range: 97-108 Potassium, Serum 4.7 mmol/L (Normal) Range: 3.5-5.2 BUN/Creatinine Ratio 12 (Normal) Range: 8-27 Sodium, Serum 141 mmol/L (Normal) Range: 135-145 Creatinine, Serum 1.03 mg/dL (Abnormal) Range: 0.57-1.00 eGFR 53 mL/min/1.73 (Abnormal) eGFR AfricanAmerican >59 mL/min/1.73 Comments: Note: Persistent reduction for 3 months or more in an eGFR<60 mL/min/1.73 m2 defines CKD. Patients with eGFR values>/=60 mL/min/1.73 m2 may also have CKD if evidence of persistentproteinuria is (Normal) present. Additional information may be found [email or web address]. BUN 12 mg/dL (Normal) Range: 5-26 Glucose, Serum 91 mg/dL (Normal) Range: 65-99 :26 TSH (77445) Comments: PATIENT WAS FASTINGPERFORMED BY: [facility] Zlvzfi6071 [address] [facility] [place] [id number] TSH 3.450 {uIU/mL} (Normal) Range: 0.450-4.500 :26 Vitamin D Hydroxy (75918) Comments: PATIENT WAS FASTINGPERFORMED BY: [facility] Uypnjq4491 [address] [facility] [place] [id number] Vitamin D, 25-Hydroxy 61.8 ng/mL (Normal) Range: 32.0-100.0 Comments: Recent studies consider the lower limit of 32.0 ng/mL to be athreshold for optimal health.Edson WRIGHT. J Nutr. 2004;135(2):317-22. :26 Lipid Panel (25579) Comments: PATIENT WAS FASTINGPERFORMED BY: EnohmMeadowview Psychiatric HospitalXlgwjd9504 [facility] [id number] Cholesterol, Total 234 mg/dL (Abnormal) Range: 100-199 HDL Cholesterol 41 mg/dL (Normal) Comments: According to ATP-III Guidelines, HDL-C >59 mg/dL is considered anegative risk factor for CHD. LDL Cholesterol Calc 150 mg/dL (Abnormal) Range: 0-99 LDL/HDL Ratio 3.7 {ratio_units} (Abnormal) Range: 0.0-3.2 Triglycerides 214 mg/dL (Abnormal) Range: 0-149 VLDL Cholesterol Rocky 43 mg/dL (Abnormal) Range: 5-40 :40 METABOLIC PANEL, Comments: PATIENT WAS FASTINGPERFORMED BY: [employer]6370 [facility] [id number] Information: [id number] COMPREHENSIVE (67157) A/G Ratio 1.7 (Normal) Range: 1.1-2.5 Alkaline Phosphatase, S 86 [iU]/L (Normal) Range: 25-165 ALT (SGPT) 18 [iU]/L (Normal) Range: 0-40 AST (SGOT) 27 [iU]/L (Normal) Range: 0-40 Bilirubin, Total 0.4 mg/dL (Normal) Range: 0.0-1.2 Albumin, Serum 4.5 g/dL (Normal) Range: 3.6-4.8 Calcium, Serum 9.7 mg/dL (Normal) Range: 8.6-10.2 Carbon Dioxide, Total 24 mmol/L (Normal) Range: 20-32 Globulin, Total 2.6 g/dL (Normal) Range: 1.5-4.5 Protein, Total, Serum 7.1 g/dL (Normal) Range: 6.0-8.5 Chloride, Serum 102 mmol/L (Normal) Range: 97-108 Potassium, Serum 4.2 mmol/L (Normal) Range: 3.5-5.2 BUN/Creatinine Ratio 13 (Normal) Range: 8-27 Sodium, Serum 142 mmol/L (Normal) Range: 135-145 Creatinine, Serum 0.94 mg/dL (Normal) Range: 0.57-1.00 eGFR >59 mL/min/1.73 (Normal) eGFR AfricanAmerican >59 mL/min/1.73 Comments: Note: Persistent reduction for 3 months or more in an eGFR<60 mL/min/1.73 m2 defines CKD. Patients with eGFR values>/=60 mL/min/1.73 m2 may also have CKD if evidence of persistentproteinuria is (Normal) present. Additional information may be found [email or web address]. BUN 12 mg/dL (Normal) Range: 5-26 Glucose, Serum 86 mg/dL (Normal) Range: 65-99 :40 HEPATIC FUNCTION PANEL (50741) Comments: PATIENT WAS FASTINGPERFORMED BY: [facility]ShowR[facility] [id number] Bilirubin, Direct 0.10 mg/dL (Normal) Range: 0.00-0.40 :40 LIPID PANEL (26711) Comments: PATIENT WAS FASTINGPERFORMED BY: [employer]6370 [facility] [id number] LDL Cholesterol Calc 121 mg/dL (Abnormal) Range: 0-99 LDL/HDL Ratio 2.5 {ratio_units} (Normal) Range: 0.0-3.2 VLDL Cholesterol Rocky 44 mg/dL (Abnormal) Range: 5-40 HDL Cholesterol 49 mg/dL (Normal) Comments: According to ATP-III Guidelines, HDL-C >59 mg/dL is considered anegative risk factor for CHD. Triglycerides 220 mg/dL (Abnormal) Range: 0-149 Cholesterol, Total 214 mg/dL (Abnormal) Range: 100-199 :40 Vitamin D Hydroxy (15717) Comments: PATIENT WAS FASTINGPERFORMED BY: [employer]6370 [employer] [facility] [id number] Vitamin D, 25-Hydroxy 57.9 ng/mL (Normal) Range: 32.0-100.0 Comments: Recent studies consider the lower limit of 32.0 ng/mL to be athreshold for optimal health.Edson WRIGHT. J Nutr. 2004;135(2):317-22. :22 Comp. Metabolic Panel (14) Comments: PATIENT WAS FASTINGPERFORMED BY: [facility] Ukikki4203 [facility] [id number] ALT (SGPT) 14 [iU]/L (Normal) Range: 0-40 AST (SGOT) 21 [iU]/L (Normal) Range: 0-40 A/G Ratio 1.6 (Normal) Range: 1.1-2.5 Albumin, Serum 4.4 g/dL (Normal) Range: 3.6-4.8 Alkaline Phosphatase, S 84 [iU]/L (Normal) Range: 25-165 Bilirubin, Total 0.4 mg/dL (Normal) Range: 0.1-1.2 Calcium, Serum 10.4 mg/dL (Abnormal) Range: 8.6-10.2 Globulin, Total 2.8 g/dL (Normal) Range: 1.5-4.5 Protein, Total, Serum 7.2 g/dL (Normal) Range: 6.0-8.5 Carbon Dioxide, Total 22 mmol/L (Normal) Range: 20-32 Chloride, Serum 104 mmol/L (Normal) Range: 97-108 Potassium, Serum 4.3 mmol/L (Normal) Range: 3.5-5.2 BUN/Creatinine Ratio 13 (Normal) Range: 8-27 Sodium, Serum 141 mmol/L (Normal) Range: 135-145 Creatinine, Serum 1.01 mg/dL (Abnormal) Range: 0.57-1.00 eGFR 55 mL/min/1.73 (Abnormal) eGFR AfricanAmerican >59 mL/min/1.73 Comments: Note: Persistent reduction for 3 months or more in an eGFR<60 mL/min/1.73 m2 defines CKD. Patients with eGFR values>/=60 mL/min/1.73 m2 may also have CKD if evidence of persistentproteinuria is (Normal) present. Additional information may be found [email or web address]. BUN 13 mg/dL (Normal) Range: 5-26 Glucose, Serum 85 mg/dL (Normal) Range: 65-99 :22 Hepatic Function Panel (7) Comments: PATIENT WAS FASTINGPERFORMED BY: [facility] Lmrkei8448 [facility] [id number] Bilirubin, Direct 0.10 mg/dL (Normal) Range: 0.00-0.40 :22 Lipid Panel With LDL/HDL Comments: PATIENT WAS FASTINGPERFORMED BY: [facility]Core[facility]6370 [facility] [id number] Ratio LDL Cholesterol Calc 158 mg/dL (Abnormal) Range: 0-99 LDL/HDL Ratio 3.0 {ratio_units} Range: 0.0-3.2 (Normal) VLDL Cholesterol Rocky 30 mg/dL (Normal) Range: 5-40 Cholesterol, Total 240 mg/dL (Abnormal) Range: 100-199 HDL Cholesterol 52 mg/dL (Normal) Comments: According to ATP-III Guidelines, HDL-C >59 mg/dL is considered anegative risk factor for CHD. Triglycerides 152 mg/dL (Abnormal) Range: 0-149 Vitamin D, 25-Hydroxy 36.1 ng/mL (Normal) Comments: PATIENT WAS FASTINGPERFORMED BY: [facility]Core[facility]6370 [facility] [id number] :22 Range: 32.0-100.0 Comments: Recent studies consider the lower limit of 32.0 ng/mL to be athreshold for optimal health.Edson WRIGHT. J Nutr. 2004;135(2):317-22. :40 BILAT SCRN DIGITAL & CAD Radiology Report See Note (Normal) Comments: Exam Number: [id number] DIGITAL BILATERAL MAMMOGRAM Digital oblique and craniocaudal views were obtained. Comparison ismade with the prior examination dated June 04, 2008. Interpretationwas made with the benefit of the CAD system. There is a moderateamount of fibroglandular tissue. No dominant mass lesion is seen. Nocluster of microcalcifications present. The overlying skin is notthickened. Th ere has been no change since prior examination. Routineannual mammographic screening is suggested for further evaluation. IMPRESSIONThere has been no change since prior examination. FINAL ASSESSMENTBIR ADS Category 1. Negative. A letter regarding the results has been sent to the patient. This interpretation was rendered by a radiologist certified under theMammography Quality Standards Act of 1992 (M QSA). The mammograms werealso examined with computer-aided detection software ([employer], [employer] Reported By: ZBIGNIEW CARROLL :39 DEXA BONE DENSITY STUDY () Radiology Report See Note (Normal) Comments: Exam Number: [id number] BONE DENSITOMETRY HISTORYOsteopenia. TECHNIQUE Bone densitometry of the lumbar spine and both hips is now beingperformed. The best criteria for evaluation of osteoporosis is theT-value, which represents the comparison of the patient's bone mass gorge expected peak bone mass. For most patients, the mean T-value of K3shljjyr L4 is used to evaluate the lumbar spine. To evalua te the hip,the lower T-value of the femoral neck or total hip is used. FINDINGSIn this patient, the mean T-value of L1 through L4 is -1.2 which is inthe range of osteopenia. Bone mineral density is pia sured at 3.1%greater than in 1996 and 9% greater than in 2006. Digital lateralview for evaluation of vertebral deformity only demonstrates noobvious compression fractures. The T-value of the left femo ral neckis -1 which is low normal. The T-value of the total left hip is -0.4which is normal. Bone mineral density is measured at 10.3% less thanin 1996 and 3.6% less than in 2006. The T-value of the right femoralneck is -1.3 which is in the range of osteopenia. The T-value of thetotal right hip is -0.7 which is normal. IMPRESSIONThere is osteopenia of the lumbar spine and right hip. Bonedensitome try of the left hip is low normal. Reported By: CLEVELAND CHAND M.D. :25 Vitamin D Hydroxy ([id number]) Comments: PATIENT NOT FASTINGPERFORMED BY: [facility]6[address] [facility] [id number] Vitamin D, 25-Hydroxy 39.8 ng/mL (Normal) Range: 32.0-100.0 Comments: Recent studies consider the lower limit of 32.0 ng/mL to be athreshold for optimal health.Edson WRIGHT. J Nutr. 2005 Oct;135(2):317-22. :25 HEPATIC FUNCTION PANEL Comments: PATIENT NOT FASTINGClinical Information: ADD DRAW FEE [id number] AND [id number] PERFORMED BY: Enohm LP Amina [facility] [id number] ([id number]) Albumin, Serum 4.1 g/dL (Normal) Range: 3.6-4.8 Alkaline Phosphatase, S 78 [iU]/L (Normal) Range: 25-165 ALT (SGPT) 14 [iU]/L (Normal) Range: 0-40 AST (SGOT) 24 [iU]/L (Normal) Range: 0-40 Bilirubin, Direct 0.08 mg/dL (Normal) Range: 0.00-0.40 Bilirubin, Total 0.4 mg/dL (Normal) Range: 0.1-1.2 Protein, Total, Serum 6.8 g/dL (Normal) Range: 6.0-8.5 :25 LIPID PANEL ([id number]) Comments: PATIENT NOT FASTINGPERFORMED BY: [employer]6[address] [facility] [id number] Cholesterol, Total 307 mg/dL (Abnormal) Range: 100-199 HDL Cholesterol 45 mg/dL (Normal) Comments: According to ATP-III Guidelines, HDL-C >59 mg/dL is considered anegative risk factor for CHD. LDL Cholesterol Calc 224 mg/dL (Abnormal) Range: 0-99 LDL/HDL Ratio 5.0 {ratio_units} (Abnormal) Range: 0.0-3.2 Triglycerides 190 mg/dL (Abnormal) Range: 0-149 VLDL Cholesterol Rocky 38 mg/dL (Normal) Range: 5-40 [id number]-Xti-[id number]:13 METABOLIC PANEL, COMPREHENSIVE Comments: PATIENT WAS FASTINGClinical Information: ADD DRAW FEE AND [id number] PERFORMED BY: Enohm LP Amina [facility] [id number] ([id number]) A/G Ratio 1.6 (Normal) Range: 1.1-2.5 Albumin, Serum 4.4 g/dL (Normal) Range: 3.6-4.8 Alkaline Phosphatase, S 72 [iU]/L (Normal) Range: 25-165 ALT (SGPT) 14 [iU]/L (Normal) Range: 0-40 AST (SGOT) 22 [iU]/L (Normal) Range: 0-40 Bilirubin, Total 0.5 mg/dL (Normal) Range: 0.1-1.2 BUN 9 mg/dL (Normal) Range: 5-26 BUN/Creatinine Ratio 10 (Normal) Range: 8-27 Calcium, Serum 10.4 mg/dL (Normal) Range: 8.5-10.6 Carbon Dioxide, Total 23 mmol/L (Normal) Range: 20-32 Chloride, Serum 106 mmol/L (Normal) Range: 97-108 Creatinine, Serum 0.91 mg/dL (Normal) Range: 0.57-1.00 eGFR >59 mL/min/1.73 (Normal) eGFR AfricanAmerican >59 mL/min/1.73 Comments: Note: Persistent reduction for 3 months or more in an eGFR<60 mL/min/1.73 m2 defines CKD. Patients with eGFR values>/=60 mL/min/1.73 m2 may also have CKD if evidence of persistentproteinuria is (Normal) present. Additional information may be found [email or web address]. Globulin, Total 2.7 g/dL (Normal) Range: 1.5-4.5 Glucose, Serum 87 mg/dL (Normal) Range: 65-99 Potassium, Serum 4.7 mmol/L (Normal) Range: 3.5-5.2 Protein, Total, Serum 7.1 g/dL (Normal) Range: 6.0-8.5 Sodium, Serum 145 mmol/L (Normal) Range: 135-145 [id number]-Irm-[id number]:13 TSH ([id number]) Comments: PATIENT WAS FASTINGPERFORMED BY: EnohmMeadowview Psychiatric HospitalKyejen3919 [facility] [id number] TSH 2.300 {uIU/mL} (Normal) Range: 0.450-4.500 31-Qzh-646490:13 HEPATIC FUNCTION PANEL Comments: PATIENT WAS FASTINGPERFORMED BY: [facility]6[address] [facility] [id number] ([id number]) Bilirubin, Direct 0.11 mg/dL (Normal) Range: 0.00-0.40 65-Woe-964764:13 LIPID PANEL ([id number]) Comments: PATIENT WAS FASTINGPERFORMED BY: [employer]6[address] [facility] [id number] Cholesterol, Total 303 mg/dL (Abnormal) Range: 100-199 HDL Cholesterol 54 mg/dL (Normal) Comments: According to ATP-III Guidelines, HDL-C >59 mg/dL is considered anegative risk factor for CHD. LDL Cholesterol Calc 218 mg/dL (Abnormal) Range: 0-99 LDL/HDL Ratio 4.0 {ratio_units} (Abnormal) Range: 0.0-3.2 Triglycerides 157 mg/dL (Abnormal) Range: 0-149 VLDL Cholesterol Rocky 31 mg/dL (Normal) Range: 5-40 :17 HEPATIC FUNCTION PANEL Comments: PATIENT WAS FASTINGClinical Information: ADD DRAW FEE [id number] ADD J [id number] PERFORMED BY: [employer]70 [facility] [id number] ([id number]) Albumin, Serum 4.3 g/dL (Normal) Range: 3.6-4.8 Alkaline Phosphatase, S 75 [iU]/L (Normal) Range: 25-165 ALT (SGPT) 18 [iU]/L (Normal) Range: 0-40 AST (SGOT) 32 [iU]/L (Normal) Range: 0-40 Bilirubin, Direct 0.13 mg/dL (Normal) Range: 0.00-0.40 Bilirubin, Total 0.6 mg/dL (Normal) Range: 0.1-1.2 Protein, Total, Serum 7.0 g/dL (Normal) Range: 6.0-8.5 :17 LIPID PANEL ([id number]) Comments: PATIENT WAS FASTINGPERFORMED BY: [employer]6[address] [facility] [id number] Cholesterol, Total 292 mg/dL (Abnormal) Range: 100-199 Comment SPRCS (Normal) Comments: If initial LDL-cholesterol result is >100 mg/dL, assess forrisk factors. HDL Cholesterol 45 mg/dL (Normal) Comments: According to ATP-III Guidelines, HDL-C >59 mg/dL is considered anegative risk factor for CHD. LDL Cholesterol Calc 217 mg/dL (Abnormal) Range: 0-99 LDL/HDL Ratio 4.8 {ratio_units} (Abnormal) Range: 0.0-3.2 Triglycerides 150 mg/dL (Abnormal) Range: 0-149 VLDL Cholesterol Rocky 30 mg/dL (Normal) Range: 5-40 08-Sep-20088:47 Comp. Metabolic Panel (14) Comments: PATIENT WAS FASTINGPERFORMED BY: LabCoMeadowview Psychiatric HospitalInriki8290 [facility] [id number] A/G Ratio 1.5 (Normal) Range: 1.1-2.5 Albumin, Serum 4.6 g/dL (Normal) Range: 3.6-4.8 Alkaline Phosphatase, S 94 [iU]/L (Normal) Range: 25-165 ALT (SGPT) 21 [iU]/L (Normal) Range: 0-40 AST (SGOT) 28 [iU]/L (Normal) Range: 0-40 Bilirubin, Total 0.6 mg/dL (Normal) Range: 0.1-1.2 BUN 13 mg/dL (Normal) Range: 5-26 BUN/Creatinine Ratio 14 (Normal) Range: 8-27 Calcium, Serum 10.5 mg/dL (Normal) Range: 8.5-10.6 Carbon Dioxide, Total 25 mmol/L (Normal) Range: 20-32 Chloride, Serum 102 mmol/L (Normal) Range: 97-108 Creatinine, Serum 0.90 mg/dL (Normal) Range: 0.57-1.00 Globulin, Total 3.0 g/dL (Normal) Range: 1.5-4.5 Glom Filt Rate, Est >59 mL/min/1.73 (Normal) Glucose, Serum 86 mg/dL (Normal) Range: 65-99 If -Peruvian >59 mL/min/1.73 Comments: Note: Persistent reduction for 3 months or more in an eGFR<60 mL/min/1.73 m2 defines CKD. Patients with eGFR values>/=60 mL/min/1.73 m2 may also have CKD if evidence of persistentproteinur ia is (Normal) present. Additional information may be found [email or web address]. Potassium, Serum 4.1 mmol/L (Normal) Range: 3.5-5.2 Protein, Total, Serum 7.6 g/dL (Normal) Range: 6.0-8.5 Sodium, Serum 140 mmol/L (Normal) Range: 135-145 :47 Hepatic Function Panel (7) Comments: PATIENT WAS FASTINGPERFORMED BY: LabCoMeadowview Psychiatric HospitalVnmbcc4947 [facility] [id number] Bilirubin, Direct 0.11 mg/dL (Normal) Range: 0.00-0.40 :47 Lipid Panel With LDL/HDL Comments: PATIENT WAS FASTINGPERFORMED BY: LabCoMeadowview Psychiatric HospitalRtezqy2212 [facility] [id number] Ratio Cholesterol, Total 325 mg/dL (Abnormal) Range: 100-199 Comment SPRCS (Normal) Comments: If initial LDL-cholesterol result is >100 mg/dL, assess forrisk factors. HDL Cholesterol 56 mg/dL (Normal) Comments: According to ATP-III Guidelines, HDL-C >59 mg/dL is considered anegative risk factor for CHD. LDL Cholesterol Calc 222 mg/dL (Abnormal) Range: 0-99 LDL/HDL Ratio 4.0 {ratio_units} (Abnormal) Range: 0.0-3.2 Triglycerides 237 mg/dL (Abnormal) Range: 0-149 VLDL Cholesterol Rocky 47 mg/dL (Abnormal) Range: 5-40 08-Cbu-68714:49 PELVIS WITH CONTRAST Radiology Report See Note (Normal) Comments: Exam Number: [id number] CT ABDOMEN WITHOUT AND WITH CONTRAST AND CT PELVIS WITH INTRAVENOUSCONTRAST REASON FOR EXAMFollow up mass associated with the left adrenal gland.Follow up enlarged shirley creas. Unenh anced scans were initially obtained through the upper abdomenfollowed by contrast enhanced MDCT performed with intravenousadministration of l00 cc of Isovue 300. Axial reconstructions wereobtained from hepatic dome to symphysis pubis. Precontrast scans redemonstrate focal nodular prominence of the leftadrenal gland, stable and unchanged since 2005. There are noassociated calcifications in either a drenal gland or the pancreas.There is a 2-3 mm calcific opacity associated with the lower pole of the right kidney also seen on previous study of July 02, 2007.There is no abnormal distention of eith er collecting system. On postcontrast scans, there is normal size and attenuation of theliver and spleen. There is no contour deformity or attenuationabnormality associated with the pancreas. The ri ght adrenal gland is normal. Nodular associated with the left adrenal gland is mostconsistent with incidental benign nonfunctioning adrenal gland adenomaand needs no additional workup given stability o jessica 2 years and likelybenign etiology. Kidneys are symmetric in imaging corticonephrographic phase. Excretion is not assessed. There is a 7 mm low attenuation structureassociated with the posterior a nd upper pole of the left kidneyunchanged since March 22, 2006, indicating benignity. The patient is post cholecystectomy. There is no intra orextrahepatic ductal dilatation. There is no ascites. C T pelvisBladder is adequately distended. There are no bladder calculi.Pelvic ureters are not dilated. There is no free fluid in the pelvis.Abdominal and pelvic bowel loops as visualized are unremarkab le. There is no free fluid in the abdomen or pelvis. Lung bases areclear. IMPRESSION1. 4 mm low attenuation nodule associated with left adrenal glandmost compatible with an incidental benign nonfun ctioning adrenal glandadenoma without significant change since March 22, 2006, indicating benignity. This needs no additional workup. 2. Normal CT appearance of the pancreas. 3. No acute findings in the abdomen or pelvis. Reported By: TITA FULLER M.D. 74-Swx-34650:48 ABDOMEN W/WO CONTRAST Radiology Report See Note (Normal) Comments: Exam Number: [id number] CT ABDOMEN WITHOUT AND WITH CONTRAST AND CT PELVIS WITH INTRAVENOUSCONTRAST REASON FOR EXAMFollow up mass associated with the left adrenal gland.Follow up enlarged shirley creas. Unenh anced scans were initially obtained through the upper abdomenfollowed by contrast enhanced MDCT performed with intravenousadministration of l00 cc of Isovue 300. Axial reconstructions wereobtained from hepatic dome to symphysis pubis. Precontrast scans redemonstrate focal nodular prominence of the leftadrenal gland, stable and unchanged since 2005. There are noassociated calcifications in either a drenal gland or the pancreas.There is a 2-3 mm calcific opacity associated with the lower pole of the right kidney also seen on previous study of July 02, 2007.There is no abnormal distention of eith er collecting system. On postcontrast scans, there is normal size and attenuation of theliver and spleen. There is no contour deformity or attenuationabnormality associated with the pancreas. The ri ght adrenal gland is normal. Nodular associated with the left adrenal gland is mostconsistent with incidental benign nonfunctioning adrenal gland adenomaand needs no additional workup given stability o jessica 2 years and likelybenign etiology. Kidneys are symmetric in imaging corticonephrographic phase. Excretion is not assessed. There is a 7 mm low attenuation structureassociated with the posterior a nd upper pole of the left kidneyunchanged since March 22, 2006, indicating benignity. The patient is post cholecystectomy. There is no intra orextrahepatic ductal dilatation. There is no ascites. C T pelvisBladder is adequately distended. There are no bladder calculi.Pelvic ureters are not dilated. There is no free fluid in the pelvis.Abdominal and pelvic bowel loops as visualized are unremarkab le. There is no free fluid in the abdomen or pelvis. Lung bases areclear. IMPRESSION1. 4 mm low attenuation nodule associated with left adrenal glandmost compatible with an incidental benign nonfun ctioning adrenal glandadenoma without significant change since March 22, 2006, indicating benignity. This needs no additional workup. 2. Normal CT appearance of the pancreas. 3. No acute findings in the abdomen or pelvis. Reported By: TITA FULLER M.D. 08-Jun-20089:37 CBCD,SMEAR DIFF CELLS COUNTED 100 (Normal) HCT 35.8 % (Abnormal) Range: 37-47 HGB 12.0 g/dL (Normal) Range: 12.0-16.0 LYMPH 24 % (Normal) Range: 19-41 MCH 30.3 pg (Normal) Range: 27.0-32.0 MCHC 33.6 g/dL (Normal) Range: 32-36 MCV 90.4 fL (Normal) Range: 81-99 MONOCYTE 7 % (Normal) Range: 0-10 PLT 389 K/mm3 (Normal) Range: 150-450 PLT EST SeeNote (Normal) Comments: Result: ADEQUATE RBC 3.96 {M/mm3} (Abnormal) Range: 4.2-5.4 RDW 14.5 % (Normal) Range: 11.6-14.6 RED CELL MORPH SeeNote {NORMAL} (Normal) Comments: Result: NORM C+C SEGS 69 % (Normal) Range: 47-70 WBC 4.1 K/mm3 (Abnormal) Range: 4.4-11.0 :37 COMP METABOLIC A/G 1.2 {RATIO} (Normal) Range: 0.9-2.4 ALB 4.0 g/dL (Normal) Range: 3.4-5.0 ALK P 90 U/L (Normal) Range: 50-136 ALT 31 U/L (Normal) Range: 30-65 AST 24 U/L (Normal) Range: 15-37 BUN 15 mg/dL (Normal) Range: 7-18 BUN/CRE 16.7 {RATIO} (Normal) Range: 10-20 CA 10.0 mg/dL (Normal) Range: 8.5-10.1 CL 105 mmol/L (Normal) Range: 98-107 CO2 29.2 mmol/L (Normal) Range: 21.0-32.0 CREAT,SERUM 0.9 mg/dL (Normal) Range: 0.6-1.0 GAP 7 (Normal) Range: 5-15 GLOB 3.3 g/dL (Normal) Range: 2.7-4.2 GLU 91 mg/dL (Normal) Range: 70-110 K 4.4 mmol/L (Normal) Range: 3.5-5.1 NA 141 mmol/L (Normal) Range: 136-145 T BILI 0.39 mg/dL (Normal) Range: 0.00-1.00 T PROT 7.3 g/dL (Normal) Range: 6.4-8.2 :37 D BILI 0.07 mg/dL (Normal) Range: 0.00-0.30 :37 LIPID CHOL 259 mg/dL (Abnormal) Comments: <200 mg/dL Desirable 200-240 mg/dL Borderline >240 mg/dL High Risk HDL 46 mg/dL (Normal) Comments: Reference Range HDL <40 mg/dL Low HDL Cholesterol HDL >or= 60 mg/dL High HDL Cholesterol LDL 178 mg/dL (Abnormal) Range: 0-130 TRIG 173 mg/dL (Normal) Comments: Serum Triglycerides Reference Interval Normal <150 mg/dL Borderline high 150 - 199 mg/dL High 200 - 499 mg/dL Very High > or = 500 mg/dL VLDL 35 mg/dL (Normal) Range: -40 :37 TSH 1.40 {uIU/mL} (Normal) Range: 0.34-4.82 1-Frx-525061:43 BILAT SCRN DIGITAL & CAD Radiology Report See Note (Normal) Comments: Exam Number: [id number] DIGITAL SCREENING MAMMOGRAMS WITH CAD COMPARISON STUDYAugus2006 and February 09, 2006 TECHNIQUERoutine craniocaudal and mediolateral oblique views are obtained ofeach breast using digital technique. CAD is also performed. There is moderate breast density bilaterally. There is no worrisomemass, typically malignant-type microcalcifications or architecturaldistortion in either lisa ast. There is no significant interval changesince April 05, 2007 and February 09, 2006. IMPRESSIONNo mammographic evidence for cancer in either breast. Routinebilateral annual screening assessment is recom mended. BIRADS Category 1. Negative. A letter regarding the results has been sent to the patient. This interpretation was rendered by a radiologist certified under theMammography Quality Standards Act of 1992 (MQSA). The mammograms werealso examined with computer-aided detection software ([employer], [employer] Reported By: TITA FULLER M.D. 73-Emr-77848:30 LIPID CHOL 232 mg/dL (Abnormal) Comments: <200 mg/dL Desirable 200-240 mg/dL Borderline >240 mg/dL High Risk HDL 54 mg/dL (Normal) Comments: Reference Range HDL <40 mg/dL Low HDL Cholesterol HDL >or= 60 mg/dL High HDL Cholesterol LDL 134 mg/dL (Abnormal) Range: 0-130 TRIG 218 mg/dL (Abnormal) Comments: Serum Triglycerides Reference Interval Normal <150 mg/dL Borderline high 150 - 199 mg/dL High 200 - 499 mg/dL Very High > or = 500 mg/dL VLDL 44 mg/dL (Abnormal) Range: 5-40 :30 LIVER ALB 4.0 g/dL (Normal) Range: 3.4-5.0 ALK P 95 U/L (Normal) Range: 50-136 ALT 43 U/L (Normal) Range: 30-65 AST 33 U/L (Normal) Range: 15-37 D BILI 0.07 mg/dL (Normal) Range: 0.00-0.30 T BILI 0.29 mg/dL (Normal) Range: 0.00-1.00 T PROT 7.0 g/dL (Normal) Range: 6.4-8.2 :32 FINGER(S),MIN 2 VIEWS Radiology Report See Note (Normal) Comments: Exam Number: [id number] THREE VIEWS OF THE LEFT INDEX FINGER AP, LATERAL AND OBLIQUE HISTORYBeing done for swelling and pain. No acute fracture is noted. There are mild to moderate degenerat ivechanges i n the PIP joint with narrowing and spur formation. There ismoderate soft tissue swelling in the area of the PIP joint. Theremainder of the finger is unremarkable. If patient persists in beingsymptoma tic and there has been trauma, repeat study in 5-7 days issuggested. No foreign body is demonstrated. IMPRESSIONDegenerative changes PIP joint with joint swelling. Reported By: JULIO BRANCH M.D. :53 RENUKA-D [id number] RENUKA-DIRECT 27 AU/mL (Normal) Range: 0-99 Comments: Negative <100 Equivocal 100 - 120 Positive >120 :53 C-REACTIVE PROT 3.33 mg/L (Normal) Range: 0.0-6.0 Comments: Test performed using the Dimension C-Reactive ProteinExtended Range assay method. This assay meets the AHA/CDC 2003 recommendations fordetermining patients at high risk for cardiovasculardisease. Reference: High risk CRP >3.0 mg/L :53 ESR SED RATE 20 mm/h (Normal) Range: 0-30 :53 RA LATEX 6502 8.8 {IU/mL} (Normal) Range: 0.0-13.9 Comments: Performed At: [facility] [place], [place] [id number] :53 URIC 3.4 mg/dL (Normal) Range: 2.6-6.0 :09 LIPID CHOL 227 mg/dL (Abnormal) Comments: <200 mg/dL Desirable 200-240 mg/dL Borderline >240 mg/dL High Risk HDL 53 mg/dL (Normal) Comments: Reference Range HDL <40 mg/dL Low HDL Cholesterol HDL >or= 60 mg/dL High HDL Cholesterol LDL 142 mg/dL (Abnormal) Range: 0-130 TRIG 161 mg/dL (Normal) Comments: Serum Triglycerides Reference Interval Normal <150 mg/dL Borderline high 150 - 199 mg/dL High 200 - 499 mg/dL Very High > or = 500 mg/dL VLDL 32 mg/dL (Normal) Range: 5-40 :09 LIVER ALB 4.0 g/dL (Normal) Range: 3.4-5.0 ALK P 104 U/L (Normal) Range: 50-136 ALT 35 [iU]/L (Normal) Range: 30-65 AST 27 U/L (Normal) Range: 15-37 D BILI 0.09 mg/dL (Normal) Range: 0.00-0.30 T BILI 0.54 mg/dL (Normal) Range: 0.00-1.00 T PROT 7.7 g/dL (Normal) Range: 6.4-8.2 :35 COMP METABOLIC A/G 1.1 {RATIO} (Normal) Range: 0.9-2.4 ALB 3.9 g/dL (Normal) Range: 3.4-5.0 ALK P 103 U/L (Normal) Range: 50-136 ALT 31 [iU]/L (Normal) Range: 30-65 AST 21 U/L (Normal) Range: 15-37 BUN 8 mg/dL (Normal) Range: 7-18 BUN/CRE 10.0 {RATIO} (Normal) Range: 10-20 CA 9.8 mg/dL (Normal) Range: 8.5-10.1 CL 103 mmol/L (Normal) Range: 98-107 CO2 29.1 mmol/L (Normal) Range: 21.0-32.0 Comments: Please Note Reference Interval Change CREAT,SERUM 0.8 mg/dL (Normal) Range: 0.6-1.0 GAP 9 (Normal) Range: 5-15 GLOB 3.4 g/dL (Normal) Range: 2.7-4.2 Comments: Please Note Reference Interval Change GLU 86 mg/dL (Normal) Range: 70-110 K 4.1 mmol/L (Normal) Range: 3.5-5.1 NA 141 mmol/L (Normal) Range: 136-145 T BILI 0.55 mg/dL (Normal) Range: 0.00-1.00 T PROT 7.3 g/dL (Normal) Range: 6.4-8.2 :35 D BILI 0.06 mg/dL (Normal) Range: 0.00-0.30 :35 LIPID CHOL 221 mg/dL (Abnormal) Comments: <200 mg/dL Desirable 200-240 mg/dL Borderline >240 mg/dL High Risk HDL 42 mg/dL (Normal) Comments: Reference Range HDL <40 mg/dL Low HDL Cholesterol HDL >or= 60 mg/dL High HDL Cholesterol LDL 140 mg/dL (Abnormal) Range: 0-130 TRIG 194 mg/dL (Normal) Comments: Serum Triglycerides Reference Interval Normal <150 mg/dL Borderline high 150 - 199 mg/dL High 200 - 499 mg/dL Very High > or = 500 mg/dL VLDL 39 mg/dL (Normal) Range: 5-40 :08 ABDOMEN W/WO CONTRAST Radiology Report See Note (Normal) Comments: Exam Number: [id number] CT SCAN OF ABDOMEN AND PELVIS HISTORYEnlarged pancreas. Following the oral administration of contrast, scans were obtainedthrough the pancreas at 2.5-mm intervals without intraven ous contrastenhancement. With the intravenous administration of 100 mL of Odohxl696, scans were obtained at 2.5-mm intervals through the pancreas and3.75-mm intervals from the lung bases through the sy mphysis pubis. The current study is compared to the examinations of December 28nd June 18, 2006. There is a small calcified granuloma in theright lung base. The liver contains a small number of calcifiedgranulomas. Calcified granulomas are also seen in the normal-sizespleen. As seen on the previous examinations, the pancreas is abovethe usual limits of normal in size. The pancreatic head m easures 3.4cm compared to 3.2 cm on the previous examination. The maximumcaliber of the distal pancreatic tail is 4.6 cm compared to 4.6 cm onthe previous examination. At the level of the proximal shirley creatictail there is a nodule arising from the anterior surface of thepancreas. This measures approximately 1 cm i size. It is better seenon the current study but appears to have been present on the pr eviousexamination. The maximum caliber of the pancreatic body is 4 cmcompared to 3.9 cm on the previous examination. There is no adrenallesion identified. There is a small hypodensity in the left kid neyunchanged from the previous study. There is no periaortic adenopathy.There is a small hiatal hernia. The caliber of the abdominal aorta iswithin normal limits. Scans through the pelvis demonstrat e the urinary bladder to be normal.The uterus is surgically absent. Ovaries are not seen. There iscolonic diverticulosis. The pancreas is enlarged. The enlargement ofthe tail has a nodular appearanc e. The appearance of the pancreas,however, has not significantly changed compared to the study of 2006. A previous noncontrast examination performed through the[facility] is available. This wa s performed June 18, 2006. Thepancreas size has not significantly changed. The nodularity seen atthe level of the pancreatic tail was also present on that examination. IMPRESSION1. There is enlarg ement of the pancreas which is stable. There is noabnormality of attenuation, no surrounding peripancreatic adenopathyor inflammatory change and no abnormality of attenuation is seenwithin the pancreas .2. There is mild enlargement of the left adrenal which is stable.3. There is colonic diverticulosis. Reported By: CLEVELAND CHAND M.D. [id number] PELVIS WITH CONTRAST Radiology Report See Note (Normal) Comments: Exam Number: [id number] CT SCAN OF ABDOMEN AND PELVIS HISTORYEnlarged pancreas. Following the oral administration of contrast, scans were obtainedthrough the pancreas at 2.5-mm intervals without intraven ous contrastenhancement. With the intravenous administration of 100 mL of [id number], scans were obtained at 2.5-mm intervals through the pancreas and3.75-mm intervals from the lung bases through the sy mphysis pubis. The current study is compared to the examinations of December 28nd June 18, 2006. There is a small calcified granuloma in theright lung base. The liver contains a small number of calcifiedgranulomas. Calcified granulomas are also seen in the normal-sizespleen. As seen on the previous examinations, the pancreas is abovethe usual limits of normal in size. The pancreatic head m easures 3.4cm compared to 3.2 cm on the previous examination. The maximumcaliber of the distal pancreatic tail is 4.6 cm compared to 4.6 cm onthe previous examination. At the level of the proximal shirley creatictail there is a nodule arising from the anterior surface of thepancreas. This measures approximately 1 cm i size. It is better seenon the current study but appears to have been present on the pr eviousexamination. The maximum caliber of the pancreatic body is 4 cmcompared to 3.9 cm on the previous examination. There is no adrenallesion identified. There is a small hypodensity in the left kid neyunchanged from the previous study. There is no periaortic adenopathy.There is a small hiatal hernia. The caliber of the abdominal aorta iswithin normal limits. Scans through the pelvis demonstrat e the urinary bladder to be normal.The uterus is surgically absent. Ovaries are not seen. There iscolonic diverticulosis. The pancreas is enlarged. The enlargement ofthe tail has a nodular appearanc e. The appearance of the pancreas,however, has not significantly changed compared to the study of 2006. A [facility]contrast [facility]. This wa s performed June 18, 2006. Thepancreas size has not significantly changed. The nodularity seen atthe level of the pancreatic tail was also present on that examination. IMPRESSION1. There is enlarg ement of the pancreas which is stable. There is noabnormality of attenuation, no surrounding peripancreatic adenopathyor inflammatory change and no abnormality of attenuation is seenwithin the pancreas .2. There is mild enlargement of the left adrenal which is stable.3. There is colonic diverticulosis. Reported By: CLEVELAND CHAND M.D. [id number] DEXA BONE DENSITY STUDY () Radiology Report See Note (Normal) Comments: Exam Number: [id number] BONE DENSITOMETRY HISTORYOsteopenia. TECHNIQUE Bone densitometry of the lumbar spine and left hip was performed. Thebest criteria for evaluation of osteoporosis is the T-valu e whichrepresents the comparison of the patient's bone mass to an expectedpeak bone mass. For most patients, the mean T-value of L1 through L4and the T-value of the total left hip are most useful. FI NDINGSIn this patient, the mean T-value of L1 through L4 is -1.9 which is inthe range of osteopenia. Digital lateral view for evaluation ofvertebral deformity only demonstrates no obvious compressionfr actures. Bone mineral density is measured at 5.8% less than in 1997and 11.5% less than in 2000. The T-value of the left femoral neck is-0.7 which is within normal limits. The T-value of the total left hipis -0.4 which is normal. Bone mineral density is measured at 8.5%less than in 1996 and 8.3% less than in 2000. IMPRESSIONThere is osteopenia of the lumbar spine. Bone densitometry of thetotal left hip is within normal limits. Reported By: CLEVELAND CHAND M.D. :46 TSH ([id number]) Comments: PATIENT NOT FASTINGClinical Information: ADD DRAW FEE [id number] ADD [id number] DIFFICULT DRAW PERFORMED BY: [facility] [id number] [facility] [id number] TSH 1.980 {uIU/mL} (Normal) Range: 0.350-5.500 :46 COMP METABOLIC A/G 1.1 {RATIO} (Normal) Range: 0.9-2.4 ALB 3.9 g/dL (Normal) Range: 3.4-5.0 ALK P 80 U/L (Normal) Range: 50-136 ALT 29 [iU]/L (Abnormal) Range: 30-65 AST 23 U/L (Normal) Range: 15-37 BUN 8 mg/dL (Normal) Range: 7-18 BUN/CRE 8.9 {RATIO} (Abnormal) Range: 10-20 CA 9.5 mg/dL (Normal) Range: 8.5-10.1 CL 104 mmol/L (Normal) Range: 98-107 CO2 29.3 mmol/L (Normal) Range: 21.0-32.0 Comments: Please Note Reference Interval Change CREAT,SERUM 0.9 mg/dL (Normal) Range: 0.6-1.0 GAP 8 (Normal) Range: 5-15 GLOB 3.6 g/dL (Normal) Range: 2.7-4.2 Comments: Please Note Reference Interval Change GLU 89 mg/dL (Normal) Range: 70-110 K 3.7 mmol/L (Normal) Range: 3.5-5.1 NA 141 mmol/L (Normal) Range: 136-145 T BILI 0.62 mg/dL (Normal) Range: 0.00-1.00 T PROT 7.5 g/dL (Normal) Range: 6.4-8.2 :46 D BILI 0.13 mg/dL (Normal) Range: 0.00-0.30 :46 LIPID CHOL 352 mg/dL (Abnormal) Comments: <200 mg/dL Desirable 200-240 mg/dL Borderline >240 mg/dL High Risk HDL 47 mg/dL (Normal) Comments: Reference Range HDL <40 mg/dL Low HDL Cholesterol HDL >or= 60 mg/dL High HDL Cholesterol LDL 274 mg/dL (Abnormal) Range: 0-130 TRIG 155 mg/dL (Normal) Comments: Serum Triglycerides Reference Interval Normal <150 mg/dL Borderline high 150 - 199 mg/dL High 200 - 499 mg/dL Very High > or = 500 mg/dL VLDL 31 mg/dL (Normal) Range: 5-40 [id number] Fecal Occult Blood , Office ([id number]) Comments: NEG Fecal Occult Blood , Office Negative (Normal) Comments: X3 :07 BILAT SCRN DIGITAL & CAD Radiology Report See Note (Normal) Comments: Exam Number: [id number] BILATERAL SCREENING DIGITAL MAMMOGRAPHY AND CAD. REASON FOR EXAMINATIONScreening. COMPARISONApr2004 and February 09, 2006. SCREENING MAMMOGRAMS WITH CAD COMPARISON STUDY TECHN IQUERoutine craniocaudal and mediolateral oblique views are obtained ofeach breast using digital technique. CAD is also performed. There is heterogeneously dense breast density bilaterally. There isno worrisome mass, typically malignant-type microcalcification orarchitectural distortion in either breast. There is no significantinterval change since December, and February 09, 2006. Nodularity in thelate ral left breast, posterior depth has remained stable since . IMPRESSIONNo mammographic evidence for cancer in either breast. Routinebilateral annual screening assessment is recommended. BIRAD S Category 2. Negative. A letter regarding the results has been sent to the patient. This interpretation was rendered by a radiologist certified under theMammography Quality Standards Act of 1992 (MQS A). The mammograms werealso examined with computer-aided detection software ([employer] Reported By: TITA FULLER :46 COMP METABOLIC CL 104 mmol/L (Normal) Range: 98-107 CO2 27.9 mmol/L (Normal) Range: 22.0-29.0 GAP 8 (Normal) Range: 5-15 A/G 1.1 {RATIO} (Normal) Range: 0.9-2.4 ALB 3.8 g/dL (Normal) Range: 3.4-5.0 ALK P 85 U/L (Normal) Range: 50-136 ALT 35 [iU]/L (Normal) Range: 30-65 AST 25 U/L (Normal) Range: 15-37 BUN 11 mg/dL (Normal) Range: 7-18 BUN/CRE 11.0 {RATIO} (Normal) Range: 10-20 CA 9.3 mg/dL (Normal) Range: 8.5-10.1 CREAT,SERUM 1.0 mg/dL (Normal) Range: 0.6-1.0 GLOB 3.6 g/dL (Abnormal) Range: 2.3-3.5 GLU 82 mg/dL (Normal) Range: 70-110 K 3.9 mmol/L (Normal) Range: 3.5-5.1 NA 140 mmol/L (Normal) Range: 136-145 T BILI 0.44 mg/dL (Normal) Range: 0.00-1.00 T PROT 7.4 g/dL (Normal) Range: 6.4-8.2 :46 [place] [address] 5.8 mg/dL (Abnormal) Range: 4.5-5.6 :46 PTH,[id number] PTH,Intact 19 pg/mL (Normal) Range: 12-65 Comments: Performed At: [address] [id number] :36 L/S SPINE,MIN 4 VIEWS Radiology Report See Note (Normal) Comments: Exam Number: [id number] LUMBAR SPINE, 5 VIEWS HISTORYLow back spine. TECHNIQUEAP, lateral, both obliques, and coned-down L5-S1 views of the lumbarspine were obtained. FINDINGSPedicles are intact. There is moderate disc disease at L5-S1. Thereis mild disease at L2-L3 and L3-L4 with spur formation at theselevels. What is seen of the S1 joints is unremarkable. No fracturesare seen. If the patient per sists being symptomatic, MR scan issuggested to evaluate possible nerve root irritation. 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 Reported By: JULIO BRANCH M.D. :24 CBCD,SMEAR DIFF BAND 4 % (Normal) Range: 0-5 BASOPHIL 3 % (Abnormal) Range: 0-1 CELLS COUNTED 100 (Normal) HCT 38.1 % (Normal) Range: 37-47 HGB 12.7 g/dL (Normal) Range: 12.0-16.0 LYMPH 33 % (Normal) Range: 19-41 MCH 30.4 pg (Normal) Range: 27.0-32.0 MCHC 33.3 g/dL (Normal) Range: 32-36 MCV 91.5 fL (Normal) Range: 81-99 MONOCYTE 2 % (Normal) Range: 0-10 PLT 388 K/mm3 (Normal) Range: 150-450 PLT EST SeeNote (Normal) Comments: Result: ADEQUATE RBC 4.17 {M/mm3} (Abnormal) Range: 4.2-5.4 RDW 14.2 % (Normal) Range: 11.6-14.6 RED CELL MORPH SeeNote {NORMAL} (Normal) Comments: Result: NORM C&C SEGS 58 % (Normal) Range: 47-70 WBC 3.5 K/mm3 (Abnormal) Range: 4.4-11.0 :24 COMP METABOLIC A/G 1.1 {RATIO} (Normal) Range: 0.9-2.4 ALB 4.0 g/dL (Normal) Range: 3.4-5.0 ALK P 107 U/L (Normal) Range: 50-136 ALT 32 [iU]/L (Normal) Range: 30-65 AST 24 U/L (Normal) Range: 15-37 BUN 9 mg/dL (Normal) Range: 7-18 BUN/CRE 10.0 {RATIO} (Normal) Range: 10-20 CA 9.6 mg/dL (Normal) Range: 8.5-10.1 CL 105 mmol/L (Normal) Range: 98-107 CO2 29.4 mmol/L (Abnormal) Range: 22.0-29.0 CREAT,SERUM 0.9 mg/dL (Normal) Range: 0.6-1.0 GAP 8 (Normal) Range: 5-15 GLOB 3.8 g/dL (Abnormal) Range: 2.3-3.5 GLU 81 mg/dL (Normal) Range: 70-110 K 3.9 mmol/L (Normal) Range: 3.5-5.1 NA 142 mmol/L (Normal) Range: 136-145 T BILI 0.51 mg/dL (Normal) Range: 0.00-1.00 T PROT 7.8 g/dL (Normal) Range: 6.4-8.2 :33 COMP METABOLIC A/G 1.1 {RATIO} (Normal) Range: 0.9-2.4 ALB 3.9 g/dL (Normal) Range: 3.4-5.0 ALK P 101 U/L (Normal) Range: 50-136 ALT 33 [iU]/L (Normal) Range: 30-65 AST 23 U/L (Normal) Range: 15-37 BUN 10 mg/dL (Normal) Range: 7-18 BUN/CRE 11.1 {RATIO} (Normal) Range: 10-20 CA 9.0 mg/dL (Normal) Range: 8.5-10.1 CL 104 mmol/L (Normal) Range: 98-107 CO2 28.8 mmol/L (Normal) Range: 22.0-29.0 CREAT,SERUM 0.9 mg/dL (Normal) Range: 0.6-1.0 GAP 10 (Normal) Range: 5-15 GLOB 3.6 g/dL (Abnormal) Range: 2.3-3.5 GLU 85 mg/dL (Normal) Range: 70-110 K 4.2 mmol/L (Normal) Range: 3.5-5.1 NA 143 mmol/L (Normal) Range: 136-145 T BILI 0.62 mg/dL (Normal) Range: 0.00-1.00 T PROT 7.5 g/dL (Normal) Range: 6.4-8.2 :33 D BILI 0.13 mg/dL (Normal) Range: 0.00-0.30 :33 LIPID CHOL 277 mg/dL (Abnormal) Comments: <200 mg/dL Desirable 200-240 mg/dL Borderline >240 mg/dL High Risk HDL 45 mg/dL (Normal) Comments: Reference Range HDL <40 mg/dL Low HDL Cholesterol HDL >or= 60 mg/dL High HDL Cholesterol LDL 196 mg/dL (Abnormal) Range: 0-130 TRIG 181 mg/dL (Normal) Comments: Serum Triglycerides Reference Interval Normal <150 mg/dL Borderline high 150 - 199 mg/dL High 200 - 499 mg/dL Very High > or = 500 mg/dL VLDL 36 mg/dL (Normal) Range: 5-40 [id number]:25 ABDOMEN W/WO CONTRAST Radiology Report See Note (Normal) Comments: Exam Number: [id number] CT OF THE ABDOMEN WITH AND WITHOUT CONTRAST AND CT OF THE PELVIS WITHCONTRAST STATEMENTFollowup of pancreas and adrenal glands. COMPARISONAbdominal CT of June 18, 2006, and [facility] CT of March 22, 2006. TECHNIQUEInitial nonenhanced imaging was performed through the abdomen. Thiswas followed by routine CT to the abdomen and pelvis utilizing l00cc of Isovue-300 and oral contrast. FINDINGSThe lung bases are clear. The heart size is within normal limits. There are multiple splenic granuloma. The liver, spleen, bile ductsand right adrenal gland are stable. There is mild nodular fullnessof the left adrenal gland unchanged, likely secondary to underlyingadenomatous changes. There is persistent mild fullness of thepancreatic body and tail which is stable. No pancreatic mass or peripancreatic inflammation is shown. There is no pancreatic ductaldilatation. There is a small cyst in the left kidney. Right kidneyis unremarkable. The aorta is mildly atherosclerotic. Small andb owel was unremarkable with the exception of mild sigmoiddiverticulosis. There are degenerative changes present within thelower lumbar spine. Uterus is absent. There is no adnexal mass orfree pelvic f luid. The urinary bladder was unremarkable. IMPRESSION1. No acute intra- abdominal or pelvic process. 2. Stable appearance of the pancreas and left adrenal gland. Reported By: PRABHAKAR ROTH M.D. :25 PELVIS WITH CONTRAST Radiology Report See Note (Normal) Comments: Exam Number: [id number] CT OF THE ABDOMEN WITH AND WITHOUT CONTRAST AND CT OF THE PELVIS WITHCONTRAST STATEMENTFollowup of pancreas and adrenal glands. COMPARISONAbdominal CT of June 18, 2006, and [facility] CT of March 22, 2006. TECHNIQUEInitial nonenhanced imaging was performed through the abdomen. Thiswas followed by routine CT to the abdomen and pelvis utilizing l00cc of Isovue-300 and oral contrast. FINDINGSThe lung bases are clear. The heart size is within normal limits. There are multiple splenic granuloma. The liver, spleen, bile ductsand right adrenal gland are stable. There is mild nodular fullnessof the left adrenal gland unchanged, likely secondary to underlyingadenomatous changes. There is persistent mild fullness of thepancreatic body and tail which is stable. No pancreatic mass or peripancreatic inflammation is shown. There is no pancreatic ductaldilatation. There is a small cyst in the left kidney. Right kidneyis unremarkable. The aorta is mildly atherosclerotic. Small andb owel was unremarkable with the exception of mild sigmoiddiverticulosis. There are degenerative changes present within thelower lumbar spine. Uterus is absent. There is no adnexal mass orfree pelvic f luid. The urinary bladder was unremarkable. IMPRESSION1. No acute intra- abdominal or pelvic process. 2. Stable appearance of the pancreas and left adrenal gland. Reported By: PRABHAKAR ROTH M.D. [id number] COMP METABOLIC A/G 1.1 {RATIO} (Normal) Range: 0.9-2.4 ALB 3.9 g/dL (Normal) Range: 3.4-5.0 ALK P 96 U/L (Normal) Range: 50-136 ALT 31 [iU]/L (Normal) Range: 30-65 AST 25 U/L (Normal) Range: 15-37 BUN 11 mg/dL (Normal) Range: 7-18 BUN/CRE 12.2 {RATIO} (Normal) Range: 10-20 CA 9.3 mg/dL (Normal) Range: 8.5-10.1 CL 102 mmol/L (Normal) Range: 98-107 CO2 31.9 mmol/L (Abnormal) Range: 22.0-29.0 CREAT,SERUM 0.9 mg/dL (Normal) Range: 0.6-1.0 GAP 5 (Normal) Range: 5-15 GLOB 3.7 g/dL (Abnormal) Range: 2.3-3.5 GLU 90 mg/dL (Normal) Range: 70-110 K 4.3 mmol/L (Normal) Range: 3.5-5.1 NA 139 mmol/L (Normal) Range: 136-145 T BILI 0.39 mg/dL (Normal) Range: 0.00-1.00 T PROT 7.6 g/dL (Normal) Range: 6.4-8.2 :57 D BILI 0.13 mg/dL (Normal) Range: 0.00-0.30 :57 [place] [address] 5.8 mg/dL (Abnormal) Range: 4.5-5.6 :57 LIPID CHOL 252 mg/dL (Abnormal) Comments: <200 mg/dL Desirable 200-240 mg/dL Borderline >240 mg/dL High Risk HDL 52 mg/dL (Normal) Comments: Reference Range HDL <40 mg/dL Low HDL Cholesterol HDL >or= 60 mg/dL High HDL Cholesterol LDL 167 mg/dL (Abnormal) Range: 0-130 TRIG 164 mg/dL (Normal) Comments: Serum Triglycerides Reference Interval Normal <150 mg/dL Borderline high 150 - 199 mg/dL High 200 - 499 mg/dL Very High > or = 500 mg/dL VLDL 33 mg/dL (Normal) Range: 5-40 :57 PTH,[id number] PTH,Intact 16 pg/mL (Normal) Range: 12-65 Comments: Performed At: [address] [id number] :45 BMP BUN 10 mg/dL (Normal) Range: 7-18 BUN/CRE 11.1 {RATIO} (Normal) Range: 10-20 CA 10.1 mg/dL (Normal) Range: 8.5-10.1 CL 102 mmol/L (Normal) Range: 98-107 CO2 29.3 mmol/L (Abnormal) Range: 22.0-29.0 CREAT,SERUM 0.9 mg/dL (Normal) Range: 0.6-1.0 GAP 7 (Normal) Range: 5-15 GLU 84 mg/dL (Normal) Range: 70-110 K 4.2 mmol/L (Normal) Range: 3.5-5.1 NA 138 mmol/L (Normal) Range: 136-145 :45 LIVER ALB 4.2 g/dL (Normal) Range: 3.4-5.0 ALK P 102 U/L (Normal) Range: 50-136 ALT 39 [iU]/L (Normal) Range: 30-65 AST 29 U/L (Normal) Range: 15-37 D BILI 0.07 mg/dL (Normal) Range: 0.00-0.30 T BILI 0.53 mg/dL (Normal) Range: 0.00-1.00 T PROT 8.0 g/dL (Normal) Range: 6.4-8.2 :45 PFLIP CHOL 299 mg/dL (Abnormal) Comments: <200 mg/dL Desirable 200-240 mg/dL Borderline >240 mg/dL High Risk HDL 46 mg/dL (Normal) Comments: Reference Range HDL <40 mg/dL Low HDL Cholesterol HDL >or= 60 mg/dL High HDL Cholesterol LDL 216 mg/dL (Abnormal) Range: 0-130 TRIG 186 mg/dL (Normal) Comments: Serum Triglycerides Reference Interval Normal <150 mg/dL Borderline high 150 - 199 mg/dL High 200 - 499 mg/dL Very High > or = 500 mg/dL VLDL 37 mg/dL (Normal) Range: 5-40 Plan of Care Name Dates Details Instructions Annual Medicare Phyiscal WITHOUT abnormal findings (Renamed from Encounter for general adult medical examination without abnormal findings) : fall reduction handout Indication: Annual Medicare Phyiscal WITHOUT abnormal findings (Renamed from Encounter for general adult medical examination without abnormal findings) Annual Medicare Phyiscal WITHOUT abnormal findings (Renamed from Encounter for general adult medical examination without abnormal findings) : elderly packet given Indication: Annual Medicare Phyiscal WITHOUT abnormal findings (Renamed from Encounter for general adult medical examination without abnormal findings) Annual Medicare Phyiscal WITHOUT abnormal findings (Renamed from Encounter for general adult medical examination without abnormal findings) : advance planning information Indication: Annual Medicare Phyiscal WITHOUT abnormal findings (Renamed from Encounter for general adult medical examination without abnormal findings) Shortness of breath on exertion : Reviewed Diagnostic Tests Indication: Shortness of breath on exertion Epigastric pain : Reviewed Lab Indication: Epigastric pain Epigastric pain : Reviewed Diagnostic Tests Indication: Epigastric pain BMI 28.0-28.9,adult : Eprescribed prescriptions (G8553) Indication: BMI 28.0-28.9,adult Shortness of breath on exertion : Follow up - Make appt after diagnostic tests Indication: Shortness of breath on exertion Abnormal glucose tolerance test (Renamed from Abnormal glucose tolerance test (GTT)) : Follow up in 4 months Indication: Abnormal glucose tolerance test (Renamed from Abnormal glucose tolerance test (GTT)) Abnormal glucose tolerance test (Renamed from Abnormal glucose tolerance test (GTT)) : Continue Current Prescription(s) Indication: Abnormal glucose tolerance test (Renamed from Abnormal glucose tolerance test (GTT)) Fatty liver : Diet, Exercise, and Wt loss Indication: Fatty liver Gastroesophageal reflux disease without esophagitis : Continue Current Prescription(s) Indication: Gastroesophageal reflux disease without esophagitis Hypercholesterolemia : Reviewed Lab Indication: Hypercholesterolemia Skin lesion of hand : Follow up if no improvement or if symptoms worsen Indication: Skin lesion of hand Wart : Warts: skin Indication: Wart Wart : Liquid Nitrogen - Wart Indication: Wart Non-smoker : Eprescribed prescriptions (G8553) Indication: Non-smoker Abnormal glucose tolerance test (Renamed from Abnormal glucose tolerance test (GTT)) : Follow up in 4 months Indication: Abnormal glucose tolerance test (Renamed from Abnormal glucose tolerance test (GTT)) Abnormal glucose tolerance test (Renamed from Abnormal glucose tolerance test (GTT)) : *Diabetes Education Indication: Abnormal glucose tolerance test (Renamed from Abnormal glucose tolerance test (GTT)) Fatty liver : Reviewed Lab Indication: Fatty liver Fatty liver : Continue Current Prescription(s) Indication: Fatty liver Gastroesophageal reflux disease without esophagitis : GERD Education Indication: Gastroesophageal reflux disease without esophagitis Hypercholesterolemia : Eprescribed prescriptions (G8553) Indication: Hypercholesterolemia Fatty liver : Diet, Exercise, and Wt loss Indication: Fatty liver Hypercholesterolemia : Cholesterol mgmt Indication: Hypercholesterolemia Iron deficiency anemia, unspecified iron deficiency anemia type : Reviewed Clinical Unit Coordinator Letter-- colonoscopy 04/19-[place] Indication: Iron deficiency anemia, unspecified iron deficiency anemia type Elevated serum globulin level : Reviewed Lab Indication: Elevated serum globulin level Osteopenia : Reviewed Diagnostic Tests Indication: Osteopenia Anemia, unspecified : Anemia: diagnosis and treatment Indication: Anemia, unspecified Abdominal pain : Continue Current Prescription(s) Indication: Abdominal pain Abdominal pain : Reviewed Lab Indication: Abdominal pain Abdominal pain : Reviewed Diagnostic Tests Indication: Abdominal pain Abdominal pain : *Abd Pain Red Flags Indication: Abdominal pain Hypercholesterolemia : Reviewed Lab Indication: Hypercholesterolemia Encounter for annual general medical examination with abnormal findings in adult : fall reduction handout Indication: Encounter for annual general medical examination with abnormal findings in adult Encounter for annual general medical examination with abnormal findings in adult : elderly packet given Indication: Encounter for annual general medical examination with abnormal findings in adult Encounter for annual general medical examination with abnormal findings in adult : advance planning information Indication: Encounter for annual general medical examination with abnormal findings in adult Encounter for annual general medical examination with abnormal findings in adult : Self breast exam Indication: Encounter for annual general medical examination with abnormal findings in adult Encounter for screening for malignant neoplasm of colon (Renamed from Special screening for malignant neoplasms, colon) : *Colon Cancer Screening Indication: Encounter for screening for malignant neoplasm of colon (Renamed from Special screening for malignant neoplasms, colon) Other anxiety states : Follow up in 1 month Indication: Other anxiety states Hypercholesterolemia : Cholesterol mgmt Indication: Hypercholesterolemia History of peptic ulcer : Continue Current Prescription(s) Indication: History of peptic ulcer 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 Hypercholesterolemia : Follow up in 4 months Indication: Hypercholesterolemia Hypercholesterolemia : Eprescribed prescriptions (G8553) Indication: Hypercholesterolemia Burning tongue : Follow up if no improvement or if symptoms worsen Indication: Burning tongue Burning tongue : Eprescribed prescriptions (G8553) Indication: Burning tongue Hypercholesterolemia : Eprescribed prescriptions (G8553) Indication: Hypercholesterolemia Hypercholesterolemia : Eprescribed prescriptions (G8553) Indication: Hypercholesterolemia Hypercholesterolemia : Eprescribed prescriptions (G8553) Indication: Hypercholesterolemia Abdominal pain, acute, generalized : Eprescribed prescriptions (G8553) Indication: Abdominal pain, acute, generalized Hypercholesterolemia : Eprescribed prescriptions (G8553) Indication: Hypercholesterolemia Hypercholesterolemia : Eprescribed prescriptions (G8553) Indication: Hypercholesterolemia Renal calculi : Follow up with Dr. Haywood Indication: Renal calculi Leg cramp : Reviewed Lab Indication: Leg cramp Diverticulitis : Reviewed Lab Indication: Diverticulitis Leg cramp : Follow up in 2 weeks Indication: Leg cramp Encounter for immunization : Shingles Vaccine Education 2005 Indication: Encounter for immunization Hypercholesterolemia : Diet, Exercise, and Wt loss Indication: Hypercholesterolemia Shingles : Eprescribed prescriptions (G8553) Indication: Shingles Itching : Follow up if no improvement or if symptoms worsen Indication: Itching Shingles : Shingles (Herpes Zoster) *: blisters Indication: Shingles Encounter for Medicare annual wellness exam : fall reduction handout Indication: Encounter for Medicare annual wellness exam Encounter for Medicare annual wellness exam : elderly packet given Indication: Encounter for Medicare annual wellness exam Encounter for screening for malignant neoplasm of cervix : *Well Female Maintenance (KF) Indication: Encounter for screening for malignant neoplasm of cervix Epigastric pain : Follow up if no improvement or if symptoms worsen Indication: Epigastric pain Epigastric pain : Reviewed Diagnostic Tests Indication: Epigastric pain Dysuria : Reviewed Diagnostic Tests Indication: Dysuria Renal calculi : Reviewed Diagnostic Tests Indication: Renal calculi Epigastric pain : Abdominal Pain: abdominal pain Indication: Epigastric pain Epigastric pain : Follow up in 3 days Indication: Epigastric pain Gastroesophageal reflux disease without esophagitis : Heartburn *: heartburn Indication: Gastroesophageal reflux disease without esophagitis Hypercholesterolemia : High Cholesterol (Hypercholesterolemia) *: cholesterol Indication: Hypercholesterolemia Other anxiety states : Anxiety: anxiety Indication: Other anxiety states Other specified viral infection, in conditions classified elsewhere and of unspecified site : *URI Symptoms Indication: Other specified viral infection, in conditions classified elsewhere and of unspecified site Other specified viral infection, in conditions classified elsewhere and of unspecified site : *URI Treatment Indication: Other specified viral infection, in conditions classified elsewhere and of unspecified site Diarrhea : *Abd Pain Red Flags Indication: Diarrhea Diarrhea : Diarrhea instructions Indication: Diarrhea Acute sinusitis : *Antibiotic Usage Education - Female Indication: Acute sinusitis Hypercholesterolemia : Diet and Exercise Indication: Hypercholesterolemia Hypercholesterolemia : Cholesterol - Medication Side Effects Indication: Hypercholesterolemia Hypercholesterolemia : Cholesterol - Medication Side Effects Indication: Hypercholesterolemia Acute sinusitis : Antibiotic Usage Education - Female Indication: Acute sinusitis Planned Observations Lipid Panel ([id number])Indication: Hypercholesterolemia On: 78-Jhz-456679:39 Request MICROALBUMIN: CREATININE RATIO ([id number]) AND (05961)Indication: Abnormal glucose tolerance test (Renamed from Abnormal glucose tolerance test (GTT)) On: 1-Zql-934067:03 Request URINALYSIS ([id number])Indication: Abnormal glucose tolerance test (Renamed from Abnormal glucose tolerance test (GTT)) On: 5-Tfw-866468:03 Request [id number] ([id number])Indication: Hyperlipidemia, mixed On: 3-Psk-322618:16 Request CALCIFEDIOL ([id number])Indication: Vitamin D deficiency, unspecified On: 5-Czw-647725:01 Request IRON ([id number])Indication: Iron deficiency anemia, unspecified iron deficiency anemia type On: 79-Mnu-941468:20 Request IRON ([id number])Indication: Anemia, unspecified On: :48 Request Urine Protein Electrophoresis (UPEP) ([id number])Indication: Elevated serum globulin level On: :48 Request MICROALBUMIN: CREATININE RATIO ([id number]) AND ([id number])Indication: Hypercholesterolemia On: :14 Request Comments: 09/19 VITAMIN B12 AND FOLATES ([id number])Indication: Hypercholesterolemia On: : Request Comments: 09/19 CALCIFEDIOL ([id number])Indication: Hypercholesterolemia On: :14 Request Comments: 09/19 TSH (THYROID STIMULATING HORMONE) ([id number])Indication: Hypercholesterolemia On: Request Comments: 09/19 METABOLIC PANEL, COMPREHENSIVE ([id number])Indication: Hypercholesterolemia On: :14 Request Comments: 09/19 CBC, PLATELETS & AUT DIFF ([id number])Indication: Hypercholesterolemia On: 14 Request Comments: 09/19 LIPID PANEL ([id number])Indication: Hypercholesterolemia On: :14 Request Comments: 09/19 LIPID PANEL ([id number])Indication: Hypercholesterolemia On: :13 Request Comments: 06/18 METABOLIC PANEL, COMPREHENSIVE ([id number])Indication: Hypercholesterolemia On: :13 Request Comments: 06/18 LIPASE ([id number])Indication: Vitamin D deficiency, unspecified On: : Request Vitamin D Hydroxy ([id number])Indication: Vitamin D deficiency, unspecified On: : Request METABOLIC PANEL, COMPREHENSIVE ([id number])Indication: Fatty liver On: :00 Request LIPID PANEL ([id number])Indication: Hypercholesterolemia On: :00 Request LIPID PANEL ([id number])Indication: Hypercholesterolemia On: :33 Request METABOLIC PANEL, COMPREHENSIVE ([id number])Indication: Hypercalcemia On: :33 Request Vitamin D Hydroxy ([id number])Indication: Vitamin D deficiency, unspecified On: :33 Request LIPASE ([id number])Indication: Abnormal blood finding On: :28 Request AMYLASE ([id number])Indication: Abnormal blood finding On: :28 Request URINE MAHENDRA CULTURE-IDENTIFICATN ([id number])Indication: Urinary tract infection On: 7-Tue-597483:11 Request Comments: repeat after finishing atb LIPID PANEL ([id number])Indication: Hypercholesterolemia On: :43 Request CALCIUM SERUM ([id number])Indication: Hypercalcemia On: :03 Request Vitamin D Hydroxy ([id number])Indication: Hypercalcemia On: :03 Request Vitamin D Hydroxy ([id number])Indication: Vitamin D deficiency, unspecified On: :28 Request CBC WITH MANUAL DIFF ([id number])Indication: Anemia, unspecified On: : Request LIPID PANEL ([id number])Indication: Hypercholesterolemia On: : Request METABOLIC PANEL, COMPREHENSIVE ([id number])Indication: Hypercalcemia On: : Request OVA & PARASITE DIR SMEAR ([id number])Indication: Diarrhea On: :50 Request OCCULT BLOOD FECES SCREEN ([id number])Indication: Diarrhea On: 47-Kqr-972733:50 Request LEUKOCYTE COUNT, FECAL ([id number])Indication: Diarrhea On: :50 Request C-DIFFICILE, STOOL ([id number])Indication: Diarrhea On: :50 Request MAHENDRA CULTURE-STOOL ([id number])Indication: Diarrhea On: :50 Request IRON ([id number])Indication: Anemia, unspecified On: 93-Mzp-787564:25 Request Vitamin D Hydroxy ([id number])Indication: Osteopenia On: :25 Request METABOLIC PANEL, COMPREHENSIVE ([id number])Indication: Gastritis, acute On: :25 Request LIPID PANEL ([id number])Indication: Hypercholesterolemia On: :25 Request Vitamin D Hydroxy ([id number])Indication: Vitamin D deficiency, unspecified On: 66-Ybu-868598:13 Request HEPATIC FUNCTION PANEL ([id number])Indication: Hypercholesterolemia On: 21-Jpi-890404:13 Request LIPID PANEL ([id number])Indication: Hypercholesterolemia On: 74-Fhv-990196:13 Request HEPATIC FUNCTION PANEL ([id number])Indication: Hypercholesterolemia On: :31 Request LIPID PANEL ([id number])Indication: Hypercholesterolemia On: :31 Request METABOLIC PANEL, COMPREHENSIVE ([id number])Indication: Hypercalcemia On: :16 Request HEPATIC FUNCTION PANEL ([id number])Indication: Hypercholesterolemia On: :16 Request LIPID PANEL ([id number])Indication: Hypercholesterolemia On: :16 Request CBC WITH MANUAL DIFF ([id number])Indication: Hypercalcemia On: :20 Request TSH ([id number])Indication: Hypercalcemia On: :20 Request METABOLIC PANEL, COMPREHENSIVE ([id number])Indication: Hypercalcemia On: :20 Request HEPATIC FUNCTION PANEL ([id number])Indication: Hypercholesterolemia On: :19 Request LIPID PANEL ([id number])Indication: Hypercholesterolemia On: :19 Request Uric Acid Blood ([id number])Indication: arthritis left first digit On: :53 Request SED RATE ERYTHROCYTE ([id number])Indication: arthritis left first digit On: 94-Gbu-47429:53 Request C-REACTIVE PROTEIN ([id number])Indication: arthritis left first digit On: 33-Hre-84428:53 Request RHEUMATOID FACTOR-QUANT ([id number])Indication: arthritis left first digit On: :53 Request RENUKA (ANTINUCLEAR ANTIBODY) ([id number])Indication: arthritis left first digit On: 01-Upa-14446:53 Request LIPID PANEL ([id number])Indication: Hypercholesterolemia On: :06 Request HEPATIC FUNCTION PANEL ([id number])Indication: Hypercholesterolemia On: :06 Request METABOLIC PANEL, COMPREHENSIVE ([id number])Indication: Hypercalcemia On: 24-Jju-788244:37 Request HEPATIC FUNCTION PANEL ([id number])Indication: Hypercholesterolemia On: 43-Tim-984089:37 Request LIPID PANEL ([id number])Indication: Hypercholesterolemia On: 96-Rwa-151068:37 Request METABOLIC PANEL, COMPREHENSIVE ([id number])Indication: Hypercalcemia On: 91-Vnv-738755:40 Request HEPATIC FUNCTION PANEL ([id number])Indication: Hypercholesterolemia On: :40 Request LIPID PANEL ([id number])Indication: Hypercholesterolemia On: 25-Zve-095828:40 Request METABOLIC PANEL, COMPREHENSIVE ([id number])Indication: Hypercalcemia On: 44-Yam-284547:08 Request HEPATIC FUNCTION PANEL ([id number])Indication: Hypercholesterolemia On: 87-Cgf-477931:07 Request LIPID PANEL ([id number])Indication: Hypercholesterolemia On: 48-Nhz-293082:07 Request HEPATIC FUNCTION PANEL ([id number])Indication: Hypercholesterolemia On: :58 Request Comments: 3 mos LIPID PANEL ([id number])Indication: Hypercholesterolemia On: :58 Request Planned Encounters Medical; 3 Month FU - On: 05-Jul-2018 10:00 [facility] Camryn Faith DO, DO, Kathleen Planned Procedures DEXA SCAN AXIAL SKELETON ([id number])By: On: 24-Apr-2018 Intent Camryn Faith DO, DO, Kathleen ABDOMINAL ULTRASOUND, LIMITED On: 10-Apr-2018 Intent ([id number])By: Camryn Faith DO DOCamryn ELECTROCARDIOGRAM, COMPLETE (ECG) On: 10-Apr-2018 Intent ([id number])By: Camryn Faith DO Comments: nsr no acute chg Camryn Faith DO Nuclear Stress Test/Stress On: 10-Apr-2018 Intent SPECT/TreadmillBy: Camryn Faith DO, DO, Kathleen Echo CompleteBy: Marcell YEE, On: 10-Apr-2018 Intent Camryn Dykes DO ELECTROCARDIOGRAM, COMPLETE (ECG) On: 05-Dec-2017 Intent ([id number])By: Camryn Faith DO Comments: nsr no acute chg Camryn Faith DO DEXA SCAN AXIAL SKELETON ([id number])By: On: 05-Dec-2017 Intent Camryn Faith DO DOCamryn US DOPPLER CAROTID BILATERAL On: 05-Dec-2017 Intent ([id number])By: Camryn Faith DO, DO, Kathleen ELECTROCARDIOGRAM, COMPLETE (ECG) On: 03-Aug-2017 Intent ([id number])By: Camryn Faith DO Comments: nsr no acute chg Marcell DOCamryn US DOPPLER CAROTID BILATERAL On: 03-Aug-2017 Intent ([id number])By: Camryn Faith DO, DO, Kathleen Flu Vaccine (Quadrivalent) [id number]: On: 11-Jun-2017 Intent Marcell YEE, Camryn Faith DO, Comments: QUAD flu shotlot number: [id number]: 12/2017L Deltoid IMAD STAVE HEWER Camryn B 12 Injection, 1000 mcg ([id number])By: On: 03-May-2017 Intent Marcell YEE Camryn Faith , Comments: 1 ml given rt arm lot [id number] exp 10/22 Camryn MAMMOGRAM, BOTH SIDES ([id number])By: On: 05-Dec-2016 Intent Marcell YEE Camryn Northgisselle YEE, Comments: due after 02/14/17 Camryn Ultrasound - Abdomen Complete & On: 26-Apr-2016 Intent PelvisBy: Royal Perea MD DEXA SCAN AXIAL SKELETON ([id number])By: On: 25-Jan-2016 Intent Kylie Haywood DO MAMMOGRAM, SCREENING, BOTH BREAST On: 25-Jan-2016 Intent ([id number])By: Kylie Haywood DO Cartoid DopplerBy: Kylie Haywood DO On: 25-Jan-2016 Intent Radiology - Lumbar SpineBy: Fast On: 22-Oct-[address] - Abdomen (IV Contrast On: 22-Oct-2015 Intent Needed)By: Kylie Haywood DO Flu Vaccine (Quadrivalent) 25813Eb: On: 25-Jun-2015 Intent Slarb STAVE HEWER Itzel Comments: Lot #Lot #[id number]-L dltd, IMDose prefilled syringeVIS and ABN signedgiven by:as, STAVE HEWER MAMMOGRAM, SCREENING, BOTH BREAST On: 09-Feb-2015 Intent ([id number])By: Kylie Haywood DO Cartoid DopplerBy: Kylie Haywood DO On: 09-Feb-2015 Intent IMMUNIZ ADMNIN, 1 VAC, SNGL/COMBO On: 25-Jun-2014 Intent ([id number])By: Magdalena Leroy ZOSTER VACC, [place] ([id number])By: Mariaa, On: 25-Jun-2014 Intent Magdalena EKG (49705)By: Kylie Haywood DO On: 19-May-2014 Intent Comments: ekg showed normal sinus rhythym, normal axis, no acute st/t wave changes MAMMOGRAM, SCREENING, BOTH BREASTS On: 06-Jan-2014 Intent ([id number])By: Kylie Haywood DO Eprescribed prescriptions On: 06-Jan-2014 Intent ([id number])By: Kylie Haywood DO Mgtxzlprk-Tzy-Zglo ([id number])By: Yobany On: 14-Oct-2013 Intent Kylie YEE Pelvic and Breast, Medicare On: 14-Oct-2013 Intent (G0101)By: Kylie Haywood DO Eprescribed prescriptions On: 08-Sep-2013 Intent (G8553)By: Magdalena Leroy ADMINISTRATION OF INFLUENZA VIRUS On: 09-Jun-2013 Intent VACCINE (G0008)By: Kim MEZA, Comments: Lot:[id number]:0.5mLSite: L Dltd, IMGiven by: ANTONIO Silverman signed Shayla FLU VAC, SPLIT, >3 YEARS, INTRAMUSC On: 09-Jun-2013 Intent ([id number])By: Shayla Alvarez LPN Spirometry (07289)By: Mariaa, On: 13-May-2013 Intent Magdalena Comments: good effort and curve normal EKG (81035)By: Kylie Haywood DO On: 13-May-2013 Intent Comments: ekg showed normal sinus rhythym, normal axis, no acute st/t wave changes DXA, BONE DENSITY, AXIAL SKELETON On: 13-May-2013 Intent ([id number])By: Kylie Haywood DO Comments: nov Eprescribed prescriptions On: 13-May-2013 Intent ([id number])By: Magdalena Leroy Eprescribed prescriptions On: 25-Apr-2013 Intent (G8553)By: Alicia Shaffer Ultrasound - Abdomen Complete & On: 22-Apr-2013 Intent PelvisBy: Ciesa AUTO APPRAISER, Melre Eprescribed prescriptions On: 22-Apr-2013 Intent (G8553)By: Alicia Shaffer PNEUM VAC ADLT/IMUMNOSPR, SBC/INTRM On: 10-Jan-2013 Intent ([id number])By: Kylie Haywood DO Comments: lot: [id number]: 03/06/14site/route: L deltoid/IMamt: 0.5mlVIS signed when applicable: yesChelsea, SURVEILLANCE INVESTIGATOR ADMINISTRATION OF PNEUMOCOCCAL On: 10-Jan-2013 Intent VACCINE (G0009)By: Kylie Haywood DO Ultrasound - Abdomen CompleteBy: On: 16-Dec-2012 Intent [address] DO CT - AbdomenBy: Kylie Haywood DO On: 13-Dec-2012 Intent MAMMOGRAM, SCREENING, BOTH BREASTS On: 13-Dec-2012 Intent ([id number])By: Kylie Haywood DO EKG (19781)By: Magdalena Leroy On: 06-Feb-2012 Intent Comments: ekg showed normal sinus rhythym, normal axis, no acute st/t wave changes TDAP VACCINE >7 IM ([id number])By: Yobany On: 04-Jul-2011 Kylie Wayne DO Comments: Lot #[id number] arm, IMSite- Dose prefilledgiven by:Ale DXA, BONE DENSITY, AXIAL SKELETON On: 04-Jul-2011 Intent ([id number])By: Kylie Haywood DO Spirometry ([id number])By: Yobany YEE, On: 13-Jun-2011 Rosana Farris Comments: good effort and curv enormal Ymmucgpde-Nkn-Pfttx ([id number])By: Yobany On: 13-Jun-2011 Kylie Wayne DO Radiology - Chest- PA and LatBy: On: 13-Jun-2011 Intent Kylie Haywood DO MAMMOGRAM, SCREENING, BOTH BREASTS On: 13-Jun-2011 Intent ([id number])By: Kylie Haywood DO Comments: nov Cartoid DopplerBy: Kylie Haywood DO On: 13-Jun-2011 Intent FLU VAC, SPLIT, >3 YEARS, INTRAMUSC On: 13-Jun-2011 Intent ([id number])By: Magdalena Leroy Comments: Lot #:[id number] date:03/02/12Amount given:0.5mlRoute: IMSite given:left deltGiven by: PARIS Silver TD Injection , IM (13811)By: On: 13-Jun-2011 Intent Magdalena Leroy Comments: received in 1999 ADMINISTRATION OF INFLUENZA VIRUS On: 13-Jun-2011 Intent VACCINE (G0008)By: Magdalena Leroy CT - Brain/HeadBy: Kylie Haywood DO A On: 19-Apr-2011 Intent Comments: stat call wet read EKG ([id number])By: Magdalena Leroy On: 01-Nov-2010 Intent Comments: ekg showed normal sinus rhythym, normal axis, no acute st/t wave changes FLU VAC, SPLIT, >3 YEARS, INTRAMUSC On: 17-Jun-2010 Intent ([id number])By: Magdalena Leroy Comments: Lot #: [id number] date: mount given: 0.5 mlRoute: IMSite given: left deltoidGiven by: Brenton Castillo RN MAMMOGRAM, SCREENING, BOTH BREASTS On: 17-Jun-2010 Intent ([id number])By: Kylie Haywood DO ADMINISTRATION OF INFLUENZA VIRUS On: 17-Jun-2010 Intent VACCINE (G0008)By: Magdalena Leroy EKG ([id number])By: Magdalena Leroy On: 27-Jul-2009 Intent Comments: ekg showed normal sinus rhythym, normal axis, no acute st/t wave changes MAMMOGRAM, SCREENING, BOTH BREASTS On: 27-Apr-2009 Intent ([id number])By: Kylie Haywood DO DXA, BONE DENSITY, AXIAL SKELETON On: 27-Apr-2009 Intent ([id number])By: Kylie Haywood DO Comments: oct Nerve ConductionBy: Kylie Haywood DO On: 23-Oct-2008 Intent A Comments: upper ext EMGBy: Se Haywood DOa A On: 23-Oct-2008 Intent Comments: upper ext CT - Abdomen & PelvisBy: Yobany YEE, On: 23-Jun-2008 Intent Kylie Brenton FLU VAC, SPLIT, >3 YEARS, INTRAMUSC On: 23-Jun-2008 Intent ([id number])By: Magdalena Leroy IMMUNIZ ADMNIN, 1 VAC, SNGL/COMBO On: 23-Jun-2008 Intent (06050)By: Magdalena Leroy EKG ([id number])By: Magdalena Leroy On: 23-Jun-2008 Intent Comments: ekg showed normal sinus rhythym, normal axis, no acute st/t wave changes EKG ([id number])By: Kylie Haywood DO On: 25-Jun-2007 Intent Comments: ekg showed normal sinus rhythym, normal axis, no acute st/t wave changes CT - Abdomen & PelvisBy: Yobany YEE, On: 25-Jun-2007 Intent Kylie Farris DXA, BONE DENSITY, AXIAL SKELETON On: 25-Jun-2007 Intent ([id number])By: Kylie Haywood DO IMMUNIZ ADMNIN, 1 VAC, SNGL/COMBO On: 25-Jun-2007 Intent ([id number])By: Kylie Haywood DO FLU VAC, SPLIT, >3 YEARS, INTRAMUSC On: 25-Jun-2007 Intent ([id number])By: Kylie Haywood DO Comments: given in left deltoid, 0.5cc, lot#[id number], exp.03.02.08 WF Pneumovax ([id number])By: Yobany YEE, On: 25-Jun-2007 Intent Kylie Farris Comments: given in right deltoid, 0.5cc, lot#[id number], exp.07.14.08 WF EKG ([id number])By: Magdalena Leroy On: 25-Mar-2007 Intent Comments: ekg showed normal sinus rhythym, normal axis, no acute st/t wave changes CT - Abdomen & PelvisBy: Yobany YEE, On: 25-Dec-2006 Intent Kylie Farris Planned Medications Vitamin B-12 1000 MCG/ML Injection Solution Ordered: 03-May-2017 Pending Camryn Faith DO, DO, Kathleen Instructions Name Dates Details Non-smoker : How to access health information online Indication: Non-smoker Non-smoker : How to access health information online - Detail Indication: Non-smoker Non-smoker : Patient Instructions Indication: Non-smoker Non-smoker : Patient Instructions Indication: Non-smoker BMI 28.0-28.9,adult : How to access health information online Indication: BMI 28.0-28.9,adult BMI 28.0-28.9,adult : How to access health information online - Detail Indication: BMI 28.0-28.9,adult BMI 28.0-28.9,adult : Patient Instructions Indication: BMI 28.0-28.9,adult Abnormal glucose tolerance test (Renamed from Abnormal glucose tolerance test (GTT)) : How to access health information online Indication: Abnormal glucose tolerance test (Renamed from Abnormal glucose tolerance test (GTT)) Abnormal glucose tolerance test (Renamed from Abnormal glucose tolerance test (GTT)) : How to access health information online - Detail Indication: Abnormal glucose tolerance test (Renamed from Abnormal glucose tolerance test (GTT)) Abnormal glucose tolerance test (Renamed from Abnormal glucose tolerance test (GTT)) : Patient Instructions Indication: Abnormal glucose tolerance test (Renamed from Abnormal glucose tolerance test (GTT)) Non-smoker : How to access health information online Indication: Non-smoker Non-smoker : How to access health information online - Detail Indication: Non-smoker Skin lesion of hand : Patient Instructions Indication: Skin lesion of hand Hypercholesterolemia : How to access health information online Indication: Hypercholesterolemia Hypercholesterolemia : How to access health information online - Detail Indication: Hypercholesterolemia Hypercholesterolemia : Patient Instructions Indication: Hypercholesterolemia Non-smoker : How to access health information online Indication: Non-smoker Non-smoker : How to access health information online - Detail Indication: Non-smoker Non-smoker : Patient Instructions Indication: Non-smoker Non-smoker : How to access health information online Indication: Non-smoker Non-smoker : How to access health information online - Detail Indication: Non-smoker Non-smoker : Patient Instructions Indication: Non-smoker Non-smoker : How to access health information online Indication: Non-smoker Non-smoker : How to access health information online - Detail Indication: Non-smoker Non-smoker : Patient Instructions Indication: Non-smoker Non-smoker : How to access health information online Indication: Non-smoker Non-smoker : Patient Instructions Indication: Non-smoker Non-smoker : How to access health information online Indication: Non-smoker Non-smoker : How to access health information online - Detail Indication: Non-smoker Non-smoker : Patient Instructions Indication: Non-smoker Non-smoker : How to access health information online Indication: Non-smoker Non-smoker : How to access health information online - Detail Indication: Non-smoker Non-smoker : Patient Instructions Indication: Non-smoker Non-smoker : How to access health information online Indication: Non-smoker Non-smoker : How to access health information online - Detail Indication: Non-smoker Non-smoker : Patient Instructions Indication: Non-smoker Hypercholesterolemia : How to access health information online Indication: Hypercholesterolemia Hypercholesterolemia : How to access health information online - Detail Indication: Hypercholesterolemia Hypercholesterolemia : Patient Instructions Indication: Hypercholesterolemia Burning tongue : How to access health information online Indication: Burning tongue Burning tongue : How to access health information online - Detail Indication: Burning tongue Burning tongue : Patient Instructions Indication: Burning tongue Hypercholesterolemia : How to access health information online Indication: Hypercholesterolemia Hypercholesterolemia : How to access health information online - Detail Indication: Hypercholesterolemia Hypercholesterolemia : Patient Instructions Indication: Hypercholesterolemia Hypercholesterolemia : How to access health information online Indication: Hypercholesterolemia Hypercholesterolemia : How to access health information online - Detail Indication: Hypercholesterolemia Hypercholesterolemia : Patient Instructions Indication: Hypercholesterolemia Hypercholesterolemia : How to access health information online Indication: Hypercholesterolemia Hypercholesterolemia : How to access health information online - Detail Indication: Hypercholesterolemia Hypercholesterolemia : Patient Instructions Indication: Hypercholesterolemia Abdominal pain, acute, generalized : How to access health information online Indication: Abdominal pain, acute, generalized Abdominal pain, acute, generalized : How to access health information online - Detail Indication: Abdominal pain, acute, generalized Abdominal pain, acute, generalized : Patient Instructions Indication: Abdominal pain, acute, generalized Hypercholesterolemia : Patient Instructions Indication: Hypercholesterolemia Hypercholesterolemia : Patient Instructions Indication: Hypercholesterolemia Leg cramp : Patient Instructions Indication: Leg cramp Fatty liver : How to access health information online Indication: Fatty liver Fatty liver : How to access health information online - Detail Indication: Fatty liver Hypercholesterolemia : Patient Instructions Indication: Hypercholesterolemia Shingles : Patient Instructions Indication: Shingles Hypercholesterolemia : Patient Instructions Indication: Hypercholesterolemia Encounter for screening for malignant neoplasm of cervix : Patient Instructions Indication: Encounter for screening for malignant neoplasm of cervix Hypercholesterolemia : Patient Instructions Indication: Hypercholesterolemia Hypercholesterolemia : Patient Instructions Indication: Hypercholesterolemia Epigastric pain : Patient Instructions Indication: Epigastric pain Epigastric pain : Patient Instructions Indication: Epigastric pain Epigastric Pain : Patient Instructions Indication: Epigastric Pain Hypercholesterolemia : Patient Instructions Indication: Hypercholesterolemia Hypercholesterolemia : Patient Instructions Indication: Hypercholesterolemia Other anxiety states : Patient Instructions Indication: Other anxiety states Encounters Phone Encounter On: 28-Jun-2018 13:37 Encounter Diagnosis: Hypercholesterolemia End: 28-Jun-2018 13:39 [facility] Office Visit On: 24-Apr-2018 9:03 Encounter Reason: Annual Medicare Exam - The patient had reviewed and updated the family history, medication/s, past medical history and social history. Yes the patient did have a mini mental status exam done today. The End: 24-Apr-2018 9:59 activities of daily living the patient needs help with are none. The patient has driven in past 6 months and put area rugs through house, but the patient has not had fecal incontinence, had urinary inco ntinence, missed or ran out of medications to soon, fallen in the past 6 months, gotten lost, has a medalert necklace or bracelet or put handrails in bathroom. The patient has completed the following pr eventative measures: PAP smear (2018), mammography (2018) and colonoscopy (due this year). The patient does have durable power of business attorney and living will. The patient has noticed nothing from the geria tic depression scale. Other providers contributing to the patient's care are gastrologist and urologist.Encounter Diagnosis: BMI 28.0-28.9,adult, Non-smoker, Annual Medicare Phyiscal WITHOUT abnormal findings (Renamed from Encounter for general adult medical examination without abnormal findings), Encounter for screening for malignant neoplasm of colon (Renamed from Special screening for malignant neoplasms, colon), Encounter for screening mammogram for breast cancer (Renamed from Encounter for screening mammogram for malignant neoplasm of breast), Postmenopausal [facility] Office Visit On: 18-Apr-2018 7:15 Encounter Reason: Follow up testsEncounter Diagnosis: BMI 28.0-28.9,adult, Non-smoker, Epigastric pain, Shortness of breath on exertion, Hydronephrosis, right, Bilateral kidney stones End: 18-Apr-2018 8:04 [facility] Visit On: 10-Apr-2018 8:00 Encounter Reason: Follow up for chronic medical issues - The patient feels well with minor complaints, has good energy level and is sleeping well. Patient has been compliant with instructions. Current medication use: no End: 10-Apr-2018 17:30 side effects and compliant with dosing regimen. Patient sleeps 6 hours per night. Nutrition: balanced diet and no supplemental vitamins & iron. The medical issues the patient is following up for inc lude All identified problems below, blood sugar issues, gastric reflux, high cholesterol and other. blood pressure range :, fasting blood sugars : and weight :., [ADDITIONAL REASON] Follow up tests - Date: (04/04/18). Encounter Diagnosis: BMI 28.0-28.9,adult, Non-smoker, Abnormal glucose tolerance test (Renamed from Abnormal glucose tolerance test (GTT)), Weight gain, Hypercholesterolemia, Vitamin D deficiency, unspecified, Gastroesophageal reflux disease without esophagitis, Irritable bowel syndrome (564.1), Fatty liver, Shortness of breath on exertion, Nausea alone, Epigastric pain [facility] Visit On: 19-Feb-2018 8:43 Encounter Reason: Warts, Unspecified - The lesions are located on the right hand. Note for Unspecified warts: Have had this wart on right hand for some time now-its starting to really be bothersome. Hurts when it gets End: 19-Feb-2018 9:35 bumped. No itching, bleeding, scaling, or peeling.Encounter Diagnosis: BMI 27.0- 27.9,adult, Non-smoker, Wart, Skin lesion of hand [facility] Lab Order On: 04-Feb-2018 11:58 Encounter Diagnosis: Vitamin D deficiency, unspecified, Hypercholesterolemia, Fatty liver, Abnormal glucose tolerance test (Renamed from Abnormal glucose tolerance test (GTT)) End: 04-Feb-2018 12:06 [facility] Visit On: 05-Dec-2017 9:11 Encounter Reason: Follow up tests - Diagnostic tests include other (labs). Date: (11/27/17)., [ADDITIONAL REASON] Follow up for chronic medical issues - The patient feels well with minor complai End: 05-Dec-2017 16:14 nts, has good energy level and is sleeping well. Patient has been compliant with instructions. Current medication use: no side effects and compliant with dosing regimen. Patient sleeps 8 hours per night . Nutrition: balanced diet and supplemental vitamins. The medical issues the patient is following up for include All identified problems below, gastric reflux, high cholesterol and other. weight :. Encounter Diagnosis: BMI 27.0-27.9,adult, Non-smoker , Hypercholesterolemia, Gastroesophageal reflux disease without esophagitis, Fatty liver, Vitamin D deficiency, unspecified, Asymptomatic bilateral carotid artery stenosis, Osteopenia (733.90), Abnormal glucose tolerance test (Renamed from Abnormal glucose tolerance test (GTT)), Hyperlipidemia, mixed [facility] Visit On: 03-Aug-2017 7:19 Encounter Reason: Follow up tests - Date: (07/25/17 labs)., [ADDITIONAL REASON] Follow up for chronic medical issues - The patient feels well with minor complai End: 03-Aug-2017 8:59 nts, has good energy level and is sleeping well. Patient has been compliant with instructions. Current medication use: no side effects and compliant with dosing regimen. Patient sleeps 7 hours per night . Nutrition: balanced diet and supplemental vitamins. The medical issues the patient is following up for include All identified problems below, gastric reflux, high cholesterol and other. weight :. Encounter Diagnosis: BMI 27.0-27.9,adult, Non-smoker , Hypercholesterolemia, Other dietary vitamin B12 deficiency anemia, Vitamin D deficiency, unspecified, Constipation, chronic, Fatty liver, Asymptomatic bilateral carotid artery stenosis [facility] Visit On: 11-Jun-2017 11:05 Encounter Reason: Injections - The medication the patient is here to receive is other (quad flu).Encounter Diagnosis: Need for prophylactic vaccination and inoculation against influenza (Renamed from Need for immunization against influenza) End: 11-Jun-2017 11:42 [facility] Visit On: 03-May-2017 10:20 Encounter Reason: Follow up tests - Date: (04/26/17 labs).Encounter Diagnosis: BMI 26.0-26.9,adult, Non-smoker, Osteopenia (733.90), Vitamin D deficiency, unspecified, Elevated serum globulin level, Other dietary vitamin B12 deficiency anemia, End: 03-May-2017 13:36 Iron deficiency anemia, unspecified iron deficiency anemia type, Hypercholesterolemia [facility] Visit On: 26-Apr-2017 9:39 Encounter Reason: Follow up tests - Date: (04/16/17 labs).Encounter Diagnosis: BMI 26.0-26.9,adult, Non-smoker, Elevated serum globulin level, Anemia, unspecified, Hypercholesterolemia End: 26-Apr-2017 10:55 [facility] Visit On: 21-Feb-2017 11:27 Encounter Reason: Diverticulitis - No changes in management were made at the last visit. Symptoms include abdominal pain, abdominal cramping, nausea and constipation. Pain is located in the left lower quadrant and in the End: 21-Feb-2017 17:05 right lower quadrant. There is no radiation. The patient describes the pain as aching. Onset was gradual 3 day(s) ago. The symptoms occur constantly. The patient describes this as moderate in severity and worsening.Encounter Diagnosis: BMI 27.0-27.9,adult, Non-smoker, Abdominal pain, Diverticulitis, colon, Nausea and vomiting in adult, Medication side effect, initial encounter, Other anxiety states, Chronic pain of right knee, Osteoarthritis of right knee, unspecified osteoarthritis type [facility] Phone Encounter On: 16-Feb-2017 13:11 Encounter Diagnosis: Abdominal pain End: 16-Feb-2017 13:13 [facility] Phone Encounter On: 14-Feb-2017 15:47 Encounter Diagnosis: Other anxiety states End: 14-Feb-2017 15:52 [facility] Office Visit On: 12-Feb-2017 9:32 Encounter Reason: Diverticulitis - No changes in management were made at the last visit. Symptoms include abdominal pain, abdominal cramping, nausea and constipation. Pain is located in the left lower quadrant and in the End: 12-Feb-2017 10:34 right lower quadrant. There is no radiation. The patient describes the pain as aching. Onset was gradual 3 day(s) ago. The symptoms occur constantly. The patient describes this as moderate in severity and worsening.Encounter Diagnosis: BMI 27.0-27.9,adult, Non-smoker, Abdominal pain, acute, left lower quadrant (Renamed from Acute abdominal pain in left lower quadrant), Abdominal pain, Constipation, chronic [facility] Visit On: 05-Dec-2016 9:33 Encounter Reason: Annual Medicare Exam - The patient had reviewed and updated the family history, medication/s, past medical history and social history. Yes the patient did have a mini mental status exam done today. The End: 05-Dec-2016 14:07 activities of daily living the patient needs help with are none. The patient has driven in past 6 months, but the patient has not had fecal incontinence, had urinary incontinence, missed or ran out of m edications to soon, fallen in the past 6 months, gotten lost, has a medalert necklace or bracelet, put area rugs through house or put handrails in bathroom. The patient has completed the following preve ntative measures: PAP smear (2014), mammography (2015) and colonoscopy (2015). The patient does have durable power of business attorney and living will. The patient has noticed dissatisfaction with life. Other p roviders contributing to the patient's care are other:.Encounter Diagnosis: BMI 27.0-27.9,adult, Non-smoker, Encounter for screening mammogram for breast cancer (Renamed from Encounter for screening mammogram for malignant neoplasm of breast), Postmenopausal, Encounter for screening for malignant neoplasm of colon (Renamed from Special screening for malignant neoplasms, colon), Encounter for annual general medical examination with abnormal findings in adult, Hypercholesterolemia [facility] Visit On: 27-Nov-2016 9:25 Encounter Reason: Follow up for chronic medical issues - The patient feels well with minor complaints, has good energy level and is sleeping well. Patient has been compliant with instructions. Current medication use: no End: 27-Nov-2016 17:15 side effects and compliant with dosing regimen. Patient sleeps 7 hours per night. Nutrition: balanced diet and supplemental vitamins. The medical issues the patient is following up for include All ident ified problems below, high blood pressure and high cholesterol. 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), History of peptic ulcer, History of colon polyps, Mitral valve insufficiency and aortic valve insufficiency, Hiatal hernia, Arthritis, rheumatic, acute or subacute, Other anxiety states, Vitamin D deficiency, unspecified, Hypercholesterolemia, Fatty liver, Asymptomatic bilateral carotid artery stenosis, Osteopenia (733.90) [facility] Visit On: 26-Apr-2016 9:05 Encounter Reason: Follow up tests - Date: ()., [ADDITIONAL REASON] Follow up for chronic medical issues - The patient feels well with no complaints End: 26-Apr-2016 16:57 , has good energy level and is sleeping well. Patient has been compliant with instructions. Current medication use: no side effects, compliant with dosing regimen and considered effective by patient. Brad dwyer sleeps 6 hours per night. Nutrition: balanced diet, supplemental vitamins and low salt diet. The medical issues the patient is following up for include All identified problems below, cardiac issue s (mitral vavle insuff), gastric reflux, high cholesterol, osteoporosis/osteopenia and other (ibs, ddd, arthritis). 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 Has improved but not gone. Encounter Diagnosis: Burning tongue End: 15-Feb-2016 10:02 [facility] Visit On: 25-Jan-2016 9:37 Encounter Reason: Follow up for chronic medical issues - The patient feels well with no complaints, has good energy level and is sleeping well. Patient has been compliant with instructions. Current medication use: no danilo End: 25-Jan-2016 23:28 e effects, compliant with dosing regimen and considered effective by patient. Patient sleeps 7 hours per night. Nutrition: balanced diet, supplemental vitamins and low salt diet. The medical issues the patient is following up for include All identified problems below, cardiac issues (mitral vavle insuff), gastric reflux, high cholesterol, osteoporosis/osteopenia and other (ibs, ddd, arthritis). Note f or Follow up for chronic medical issues: overall doing ok and mood been pretty good adn stomach ok if watches what she eats andno gerd-not exercising yet - she is encouraged- she thinks taking 1-2000 of vit d- so double, [ADDITIONAL REASON] Follow up, Laboratory Test Results - Date: (01/18/16). Encounter Diagnosis: Hypercholesterolemia, Gastroesophageal reflux disease without esophagitis, Fatty liver, Vitamin D deficiency, unspecified, Osteopenia (733.90), Arteriosclerosis of carotid artery, bilateral, Encounter for screening mammogram for breast cancer (Renamed from Encounter for screening mammogram for malignant neoplasm of breast), BMI 26.0-26.9,adult, Non-smoker [facility] Visit On: 22-Oct-2015 8:02 Encounter Reason: Follow up for chronic medical issues - The patient feels well with minor complaints (lower back pain- hx of arthritis), has good energy level and is sleeping well. Patient has been compliant with instru End: 23-Oct-2015 12:38 ctions. Current medication use: no side effects, compliant with dosing regimen and considered effective by patient. Patient sleeps 7 hours per night. Nutrition: balanced diet, supplemental vitamins and low salt diet. The medical issues the patient is following up for include All identified problems below, cardiac issues (mitral vavle insuff), gastric reflux, high cholesterol, osteoporosis/osteopenia a nd other (ibs, ddd, arthritis). Note for Follow up for chronic medical issues: had colosncopy and egd - had no polyps had gerd- this was cebul gerd better - occ some upper abd pain comes and goes - did have nausea this am no vomit-no tyopicalweight up not exercising, [ADDITIONAL REASON] Follow up, Laboratory Test Results - Date: (10/18/15). Encounter Diagnosis: Hypercholesterolemia, Other anxiety states, Arthritis, rheumatic, acute or subacute, Epigastric pain, Vitamin D deficiency, unspecified, Elevated pancreatic enzyme, Fatty liver, Gastroesophageal reflux disease without esophagitis, Low back pain [facility] Visit On: 25-Jun-2015 10:35 Encounter Reason: Injections - The medication the patient is here to receive is other (Influenza). history: Patient is not currently .Encounter Diagnosis: Need for prophylactic vaccination and inoculation against influenza End: 25-Jun-2015 11:14 [facility] Phone Encounter On: 17-Jun-2015 15:17 Encounter Diagnosis: Abnormal urine End: 17-Jun-2015 15:19 [facility] Office Visit On: 15-Jun-2015 8:15 Encounter Reason: Follow up for chronic medical issues - The patient feels well with no complaints, has good energy level and is sleeping well. Patient has been compliant with instructions. Current medication use: no danilo End: 15-Jun-2015 22:48 e effects, compliant with dosing regimen and considered effective by patient. Patient sleeps 7 hours per night. Nutrition: balanced diet, supplemental vitamins and low salt diet. The medical issues the patient is following up for include All identified problems below, cardiac issues (mitral vavle insuff), gastric reflux, high cholesterol, osteoporosis/osteopenia and other (ibs, ddd, arthritis). Note f or Follow up for chronic medical issues: - sometimes gets nauseated- and sometimes epigastric pain - comes and goes daily and food makes it worse- no vomit- bowels ok - saw cebul and getting upper and lower endoscopy, [ADDITIONAL REASON] Follow up, Laboratory Test Results - Date: (06/08/15). 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 The course has been increasing. The pain is described as a moderate dull ache. The End: 10-May-2015 17:46 pain is described as being located in the suprapubic area. The pain does not radiate. The symptoms have been associated with bloating, dysuria and nausea, while the symptoms have not been associated wi th bloody stools, constipation, dark urine, diarrhea or vomiting. Note for Pain: - lower abd pain never gets diarrhea- and always constipation- - no fever or vomiting but nauseaEncounter Diagnosis: Abdominal Pain,General (789.07), Diverticulitis (562.11) [facility] Visit On: 09-Feb-2015 8:36 Encounter Reason: Follow up for chronic medical issues - The patient feels well with no complaints, has good energy level and is sleeping well. Patient has been compliant with instructions. Current medication use: no danilo End: 09-Feb-2015 9:10 e effects, compliant with dosing regimen and considered effective by patient. Patient sleeps 7 hours per night. Nutrition: balanced diet, supplemental vitamins and low salt diet. The medical issues the patient is following up for include All identified problems below, cardiac issues (mitral vavle insuff), gastric reflux, high cholesterol, osteoporosis/osteopenia and other (ibs, ddd, arthritis). Note f or Follow up for chronic medical issues: weight up 5 pounds- ating things shouldnt - bp is good feels well- she saw Mike and he told her he didnt know at this point what to do with elevation of panc reas enzymes- she not having pain has some nausea in am relieved with nexium has been scoped above has female exam appt, [ADDITIONAL REASON] Follow up, Laboratory Test Results - Date: (02/01/15). Encounter Diagnosis: Hypercholesterolemia (272.0), Gerd (530.81), Carotid stenosis (433.10), Fatty Liver (571.8), Elevated pancreatic enzyme, VITAMIN D DEFICIENCY, NOS (268.9), screening [facility] Visit On: 05-Oct-2014 13:00 Encounter Reason: Follow up for chronic medical issues - The patient feels well with no complaints, has good energy level and is sleeping well. Patient has been compliant with instructions. Current medication use: no danilo End: 05-Oct-2014 20:42 e effects, compliant with dosing regimen and considered effective by patient. Patient sleeps 7 hours per night. Nutrition: balanced diet, supplemental vitamins and low salt diet. The medical issues the patient is following up for include All identified problems below, cardiac issues (mitral vavle insuff), gastric reflux, high cholesterol, osteoporosis/osteopenia and other (ibs, ddd, arthritis). Note f or Follow up for chronic medical issues: is going to see Irene next week had diverticiulitis and was in hosptial again - feelingb lalita now and trying to watch what eat- appetitie good and bp is good - had to go off crestor - muscle aching- and that better- no gerd- no nausea or abd pain, [ADDITIONAL REASON] Follow up, Laboratory Test Results - Date: (09/24/14). Encounter Diagnosis: Hypercholesterolemia (272.0), Elevated pancreatic enzyme, Gerd (530.81), VITAMIN D DEFICIENCY, NOS (268.9), Fatty Liver (571.8), Colon Polyps, History of (V12.72), DISORDERS OF CALCIUM METABOLISM, HYPERCALCEMIA (275.42) [facility] Phone Encounter On: 25-Sep-2014 8:07 Encounter Diagnosis: Abnormal blood finding End: 25-Sep-2014 8:28 [facility] Office Visit On: 24-Sep-2014 7:57 Encounter Reason: Follow up acute care visit - The patient feeling better since last seen and improving. Patient has been compliant with instructions. Current medication use: no side effects. The medical issues the patie End: 24-Sep-2014 8:44 nt is following up for include All identified problems below and other (diverticulitis, leg cramps).Encounter Diagnosis: Diverticulitis (562.11), Leg cramp, Renal calculi (592.0), Elevated pancreatic enzyme [facility] Visit On: 08-Sep-2014 14:18 Encounter Reason: Transition into care - The patient is transitioning into care from a hospital and a summary of care was reviewed ., [ADDITIONAL REASON] Follow up hospital - The patient does not feel well, has good energy level and i End: 08-Sep-2014 15:41 s sleeping well. Patient has been compliant with instructions. Current medication use: experiencing side effects (? myalgia ), compliant with dosing regimen and considered effective by patient. Patient sleeps 8 hours per night. Encounter Diagnosis: Diverticulitis (562.11), Renal calculi (592.0), Leg cramp [facility] Phone Encounter On: 25-Jun-2014 10:45 Encounter Diagnosis: SHINGLES,NEED FOR PROPHYLACTIC VACCINATION AND INOCULATION AGAINST (V05.8) End: 25-Jun-2014 10:53 [facility] Visit On: 19-May-2014 8:22 Encounter Reason: Follow up for chronic medical issues - The patient feels well with no complaints, has good energy level and is sleeping well. Patient has been compliant with instructions. Current medication use: no danilo End: 19-May-2014 9:07 e effects, compliant with dosing regimen and considered effective by patient. Patient sleeps 7 hours per night. Nutrition: balanced diet, supplemental vitamins and low salt diet. The medical issues the patient is following up for include All identified problems below, cardiac issues (mitral vavle insuff), gastric reflux, high cholesterol, osteoporosis/osteopenia and other (ibs, ddd, arthritis). Note f or Follow up for chronic medical issues: feeling well- ??bp up a little - no routine gerd- using linzess from jabour prn for bowels and woring - taking crestor qod and tolerating , [ADDITIONAL REASON] Follow up, Laboratory Test Results - Date: (05/13/14). Encounter Diagnosis: Hypercholesterolemia (272.0), Fatty Liver (571.8), Anxiety state, unspecified (300.00), VITAMIN D DEFICIENCY, NOS (268.9), Gerd (530.81), Irritable bowel syndrome (564.1) [facility] Visit On: 20-Apr-2014 10:53 Encounter Reason: Follow up acute care visit - The patient feels the same (shingles is spreading) and worsening. Patient has been compliant with instructions. Current medication use: no side effects and compliant with do End: 20-Apr-2014 12:18 sing regimen. Patient sleeps 6 hours per night. The medical issues the patient is following up for include All identified problems below and other (shingles). Note for Follow up acute care visit: not painfulno issue sleep and onlyitch Encounter Diagnosis: Shingles [facility] Visit On: 15-Apr-2014 9:38 Encounter Reason: Skin Problems - The onset of the skin problems has been sudden and they have been occurring in a persistent pattern for days. The course has been increasing. The problem is characterized as a rash, itch End: 15-Apr-2014 10:24 ing and a change in skin color. Lesions are described as red and raised above the skin. The spots were first seen on sites of pressure (R hip). There has been no progression. There has been associated itching, while there has been no pain. Encounter Diagnosis: Shingles, Itching [facility] Visit On: 06-Jan-2014 8:27 Encounter Reason: Follow up for chronic medical issues - The patient feels well with no complaints, has good energy level and is sleeping well. Patient has been compliant with instructions. Current medication use: no danilo End: 06-Jan-2014 21:22 e effects, compliant with dosing regimen and considered effective by patient. Patient sleeps 7 hours per night. Nutrition: balanced diet, supplemental vitamins and low salt diet. The medical issues the patient is following up for include All identified problems below, cardiac issues (mitral vavle insuff), gastric reflux, high cholesterol, osteoporosis/osteopenia and other (ibs, ddd, arthritis). Note f or Follow up for chronic medical issues: weight down 5 more pounds really trying to cut back- and bp is good and exercising- no gerd- mood good ??- she is taking plaquneil per valenke , [ADDITIONAL REASON] Follow up, Laboratory Test Results - Date: (12/25/13). 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 Yes the patient did have a mini mental status exam done today. The End: 14-Oct-2013 9:10 activities of daily living the patient needs help with are none. The patient has driven in past 6 months and fallen in the past 6 months, but the patient has not had fecal incontinence, had urinary inco ntinence, missed or ran out of medications to soon, gotten lost, has a medalert necklace or bracelet, put area rugs through house or put handrails in bathroom. The patient has completed the following pr eventative measures: PAP smear (2011), mammography (2012) and colonoscopy (07/2013). The patient does have durable power of business attorney and living will. The patient has noticed nothing from the geriatic de pression scale. Other providers contributing to the patient's care are gastrologist and qc lab technician., [ADDITIONAL REASON] Well Women Exam - The patient feels well with minor complaints (left sided rib p ain from falling in bathtub couple weeks ago), has good energy level and is sleeping well. Pap smear: date of last pap: (not sure when last pap was since had hysterectomy). Contraceptive history: The pa yuliya is not using any method of contraception at this time. Patient exercises 3 - 4 times per week. The patient's libido is normal. The patient reports that she performs monthly self breast exam. Calci um intake includes 1 serving milk daily. Previous evaluations: hysterectomy (partial- still has right ovary). The patient denies the use of oral contraceptives or hormone replacement therapy. Menstruati on: Last menstrual period date: (post-lily). Note for Well Women Exam: no breast lumps no vaginal bleeding , [ADDITIONAL REASON] RIb Pain - Pt fell in bathtub couple weeks ago and is having some left sided rib pain, upper back area. - fall becuase slipped in tub- no mat- put mat-- nothing hurt now except left ribs no sob Encounter Diagnosis: Well Woman Exam , Medicare (V76.2) (Renamed from Well Woman Exam , Medicare (V76.2, V72.31)), Annual Medicare Physical (V70.0), Rib pain on left side [facility] Phone Encounter On: 10-Sep-2013 13:08 Encounter Diagnosis: Urinary tract infection (599.0) End: 10-Sep-2013 13:12 [facility] Office Visit On: 08-Sep-2013 8:48 Encounter Reason: Follow up for chronic medical issues - The patient feels well with no complaints, has good energy level and is sleeping poorly (tosses and turns a lot). Patient has been compliant with instructions. Cur End: 08-Sep-2013 10:10 rent medication use: no side effects, compliant with dosing regimen and considered effective by patient. Patient sleeps 6 hours per night. Nutrition: balanced diet, supplemental vitamins and low salt di et. The medical issues the patient is following up for include All identified problems below, cardiac issues (mitral vavle insuff), gastric reflux, high cholesterol, osteoporosis/osteopenia and other (i bs, ddd, arthritis). Note for Follow up for chronic medical issues: prilosec working no gerd and bp is good and mood is good - she is exercisig 4 days a week- bone density - we discussed options for m eds and she conscerned about bisphosphonate side effects and cost of evista- insurance no cover iv at this level- and sob better, [ADDITIONAL REASON] Follow up, Laboratory Test Results - Date: (07/25/13). Encounter Diagnosis: Hypercholesterolemia (272.0), Anxiety state, unspecified (300.00), Gerd (530.81), VITAMIN D DEFICIENCY, NOS (268.9), Osteopenia (733.90), Fatty Liver (571.8), Stress Incontinence, Female (625.6) [facility] Office Visit On: 09-Jun-2013 10:25 Encounter Reason: Injections - The medication the patient is here to receive is other (Influenza Vaccine).Encounter Diagnosis: Need for prophylactic vaccination and inoculation against influenza (V04.81) End: 09-Jun-2013 10:44 [facility] Office Visit On: 13-May-2013 8:25 Encounter Reason: Follow up for chronic medical issues - The patient feels well with no complaints, has good energy level and is sleeping poorly (tosses and turns a lot). Patient has been compliant with instructions. Cur End: 13-May-2013 9:16 rent medication use: no side effects, compliant with dosing regimen and considered effective by patient. Patient sleeps 6 hours per night. Nutrition: balanced diet, supplemental vitamins and low salt di et. The medical issues the patient is following up for include All identified problems below, cardiac issues (mitral vavle insuff), gastric reflux, high cholesterol, osteoporosis/osteopenia and other (i bs, ddd, arthritis). Note for Follow up for chronic medical issues: - little ache with crestor not bad- bp is good in general feels good- only sleeps bad if doesnt take amitryptline- mood good - , [ADDITIONAL REASON] Follow up, Laboratory Test Results - Date: (04/23/13). Encounter Diagnosis: Hypercholesterolemia (272.0), Dyspnea on exertion (786.09), Gerd (530.81), Epigastric Pain (789.06), Osteopenia (733.90), VITAMIN D DEFICIENCY, NOS (268.9), Colon Polyps, History of (V12.72) [facility] Annotation/Addendum On: 25-Apr-2013 15:29 Encounter Diagnosis: Unspecified Diagnosis End: 25-Apr-2013 15:36 [facility] Office Visit On: 25-Apr-2013 11:01 Encounter Reason: Follow up tests - Diagnostic tests include ultrasound (abdomen and pelvic). Date: (04/24/13 and blood work).Encounter Diagnosis: Abdominal pain (789.00), Renal calculi (592.0), Dysuria (788.1) End: 25-Apr-2013 11:52 [facility] Office Visit On: 22-Apr-2013 11:46 Encounter Reason: Abdominal Pain, Female - Symptoms include abdominal pain and nausea, while symptoms do not include vomiting, diarrhea or vaginal bleeding. The pain is located in the lower abdominal area. The pain radia End: 22-Apr-2013 12:28 eddie to the left pelvis, right pelvis and back. The patient describes the pain as sharp. Onset was 1 day(s) ago. There is no known event that preceded symptom onset. The symptoms occur intermittently. Th e patient describes this as worsening. Associated symptoms do not include fever. The patient is not currently being treated for this problem.Encounter Diagnosis: Abdominal pain (789.00), History of constipation (V12.79) [facility] Office Visit On: 10-Jan-2013 8:06 Encounter Reason: Follow up tests - Diagnostic tests include ultrasound (abd). Date: (12/13/12). Follow up visit with no current symptoms. 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 Also says some nausea off and on- Hasnt been taking her Prilosec daily- I suggested to take it daily and see if helps with the nausea.), has good energy level and is sleeping poorly (cause of j oint pain). Patient has been compliant with instructions. Current medication use: no side effects, compliant with dosing regimen and considered effective by patient. Patient sleeps 8 hours per night. Nu trition: balanced diet, supplemental vitamins and low salt diet. The medical issues the patient is following up for include All identified problems below, cardiac issues (mitral vavle insuff), gastric r eflux, high cholesterol, osteoporosis/osteopenia and other (ibs, ddd, arthritis). Note for Follow up for chronic medical issues: her bp is good weight down and trying- her chol way better and tolerati ng crestor thinks myalgia not from crestor just started , [ADDITIONAL REASON] Follow up, Laboratory Test Results - Date: (12/05/12). 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 Patient has been compliant with instructions. Current medication use: no danilo End: 13-Sep-2012 9:33 e effects, compliant with dosing regimen and considered effective by patient. Patient sleeps 8 hours per night. Impact of disease: no overall impact. Nutrition: balanced diet, supplemental vitamins and low salt diet. The medical issues the patient is following up for include All identified problems below, cardiac issues (mitral vavle insuff), gastric reflux, high cholesterol, osteoporosis/osteopenia a nd other (ibs, ddd, arthritis). Note for Follow up for chronic medical issues: she can take crestor with q10 but cant afford it- - feeling good- no gerd, [ADDITIONAL REASON] Follow up, Laboratory Test Results - Date: (08/14). Encounter Diagnosis: Hypercholesterolemia (272.0), VITAMIN D DEFICIENCY, NOS (268.9), Carotid stenosis (433.10), Fatty Liver (571.8), Gerd (530.81), Anxiety state, unspecified (300.00), Myalgia(729.1), Osteopenia (733.90) [facility] Office Visit On: 07-Jun-2012 8:29 Encounter Reason: Follow up for chronic medical issues - The patient feels well with no complaints, has good energy level and is sleeping well. Patient has been compliant with instructions. Current medication use: no danilo End: 07-Jun-2012 9:19 e effects, compliant with dosing regimen and considered effective by patient. Patient sleeps 8 hours per night. Impact of disease: no overall impact. Nutrition: balanced diet, supplemental vitamins and low salt diet. The medical issues the patient is following up for include All identified problems below, cardiac issues (mitral vavle insuff), gastric reflux, high cholesterol, osteoporosis/osteopenia a nd other (ibs, ddd, arthritis). Note for Follow up for chronic medical issues: she is feeling wellin general and was told by yudelka that she has fatty liver so we disccused - she is having no gerd of f nexium - by watching foods more takign prilosec-mood is good and sleepign good- weight loss of 6 pounds and trying and bp is goood- she is exercising, [ADDITIONAL REASON] Follow up, Laboratory Test Results - Date: (05/27/12). Encounter Diagnosis: Anxiety state, unspecified (300.00), VITAMIN D DEFICIENCY, NOS (268.9), Gerd (530.81), Hypercholesterolemia (272.0), Carotid stenosis (433.10), Fatty Liver (571.8), DISORDERS OF CALCIUM METABOLISM, HYPERCALCEMIA (275.42) [facility] Office Visit On: 06-Feb-2012 8:01 Encounter Reason: Follow up for chronic medical issues - The patient feels well with no complaints, has good energy level and is sleeping well. Patient has been compliant with instructions. Current medication use: no danilo End: 06-Feb-2012 8:54 e effects, compliant with dosing regimen and considered effective by patient. Patient sleeps 8 hours per night. Impact of disease: no overall impact. Nutrition: balanced diet, supplemental vitamins and low salt diet. The medical issues the patient is following up for include All identified problems below, cardiac issues (mitral vavle insuff), gastric reflux, high cholesterol, osteoporosis/osteopenia a nd other (ibs, ddd, arthritis). Note for Follow up for chronic medical issues: livalo made her very tired and grumpy so she quit taking - bp is good-- gerd once a week if eats something wrong- she eleni l take extra nexium then and relieves it- no dysphia routinely- she feels anxiety is controlled- - she is still having muscle aches and fatigue off drugs though not as bad- all muscles- weak and achey- her knees and elbows ache- not much shoulders or hips- she tends to get worse when stressed out, [ADDITIONAL REASON] Follow up, Laboratory Test Results - Date: (01/24/12). Encounter Diagnosis: Hypercholesterolemia (272.0), VITAMIN D DEFICIENCY, NOS (268.9), Gerd (530.81), Anemia(285.9), Anxiety state, unspecified (300.00), Myalgia(729.1) [facility] Office Visit On: 10-Oct-2011 8:17 Encounter Reason: Follow up for chronic medical issues - The patient feels well with minor complaints (soreness from pravachol), has good energy level and is sleeping well. Patient has been compliant with instructions. C End: 10-Oct-2011 8:54 urrent medication use: no side effects, compliant with dosing regimen and considered effective by patient. Patient sleeps 8 hours per night. Impact of disease: no overall impact. Nutrition: balanced t, supplemental vitamins and low salt diet. The medical issues the patient is following up for include All identified problems below, cardiac issues (mitral vavle insuff), gastric reflux, high cholester ol, osteoporosis/osteopenia and other (ibs, ddd, arthritis). Note for Follow up for chronic medical issues: cough is improved compared to previous- she hasnt checked into nexium still havign gerd ever y few days - nexium makes it go away- takign 4000 vit d increase to 6000- mood good- with celexa but pravachol making her achey and weak- she is exercising 4 days a weekEncounter Diagnosis: Gerd (530.81), VITAMIN D DEFICIENCY, NOS (268.9), Anemia(285.9), Hypercholesterolemia (272.0), Osteopenia (733.90), Anxiety state, unspecified (300.00) [facility] Office Visit On: 04-Jul-2011 10:26 Encounter Reason: Follow up tests - Diagnostic tests include other (carotid dopplers) and X-Ray (ribs). Date: (06/21/11). Note for Follow up tests: rib pain improving but still - cough nonproductive- xray ok takign clive End: 04-Jul-2011 11:42 d meds- and allergy meds- still having gerd onn otc meds- did better on nexium- she will che4ck insurqance and let me know may switch see if helps coughEncounter Diagnosis: Cough (786.2), Anemia(285.9), Diarrhea (787.91), Osteopenia (733.90), VITAMIN D DEFICIENCY, NOS (268.9), Hypercholesterolemia (272.0) [facility] Office Visit On: 19-Jun-2011 9:31 Encounter Reason: Sinus pain - The onset of the pain has been acute and has been occurring in a persistent pattern for 4 days. The course has been constant. The pain is described as being located in the frontal area and the temporal area. End: 19-Jun-2011 9:59 Encounter Diagnosis: Viral infection, unspecified (079.99), Eustachian tube dysfunction (381.81) [facility] Historical Summary On: 16-Jun-2011 14:48 Encounter Diagnosis: Diarrhea (787.91) End: 16-Jun-2011 14:50 [facility] Office Visit On: 13-Jun-2011 10:24 Encounter Reason: Follow up for chronic medical issues - The patient feels well with no complaints, has good energy level and is sleeping well. Patient has been compliant with instructions. Current medication use: no danilo End: 13-Jun-2011 12:47 e effects, compliant with dosing regimen and considered effective by patient. Patient sleeps 8 hours per night. Nutrition: inappropriate diet, supplemental vitamins and low salt diet. The medical issues the patient is following up for include All identified problems below, cardiac issues (mitral vavle insuff), gastric reflux, high cholesterol, osteoporosis/osteopenia and other (ibs, ddd, arthritis). N ote for Follow up for chronic medical issues: she is taking prilosec prn- but told her if taking 2 times a week or more after the fact then risk for esophageal cancer- should take every day- bowels ab out the same- weight up 7 pounds- but exercising - no more pal- mood is good, [ADDITIONAL REASON] Follow up, Laboratory Test Results - Date: (06/06/11). Encounter Diagnosis: Need for prophylactic vaccination and inoculation against influenza (V04.81) , Carotid stenosis (433.10), Headache (784.0), Irritable bowel syndrome (564.1), Gerd (530.81), DISORDERS OF CALCIUM METABOLISM, HYPERCALCEMIA (275.42), VITAMIN D DEFICIENCY, NOS (268.9), Hypercholesterolemia (272.0), Anxiety state, unspecified (300.00), screening, Anemia(285.9), Cough (786.2), right thoracic pain [facility] Office Visit On: 19-Apr-2011 11:21 Encounter Reason: Head injury - The type of injury is blunt head trauma (hit tree branch, roght side forehead). The head injury has been occurring in a persistent pattern for weeks (2). The course has been constant. The End: 19-Apr-2011 11:48 head injury is described as moderate. The accident occured other (mowing lawn and hit head on tree branch). There has been associated headache and other (sore to touch), while there has been no associa vandana vomiting, weakness, inability to walk, nausea, fatigue, intolerance to light, intolerance to loud sounds, difficulty speaking, difficulty hearing, difficulty seeing or difficulty understanding. Note for Head injury: right frontal- didnt get bump or bruise- headaches off and on but pretty sore to touch- - no vision change or weak or numb in arm or legEncounter Diagnosis: Headache (784.0) [facility] Office Visit On: 14-Feb-2011 9:32 Encounter Reason: Follow up for chronic medical issues - The patient feels well with no complaints, has decreased energy level and is sleeping well. Patient has been compliant with instructions. Current medication use: n End: 14-Feb-2011 10:09 o side effects, compliant with dosing regimen and considered effective by patient. Patient sleeps 8 hours per night. Impact of disease: emotional impact-mild. Nutrition: inappropriate diet, supplemental vitamins and low salt diet. The medical issues the patient is following up for include All identified problems below, cardiac issues (mitral vavle insuff), gastric reflux, high cholesterol, osteoporosi s/osteopenia and other (ibs, ddd, arthritis). 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 Onset was sudden 3 day(s End: 26-Dec-2010 11:21 ) ago. Onset followed exposure at home to someone with upper respiratory symptoms. The symptoms occur constantly. The patient describes this as moderate in severity and worsening. Symptoms are exacerbat ed by lying down, while symptoms are not exacerbated by activity. Associated symptoms include shortness of breath, fever and chills, while associated symptoms do not include ear pain, wheezing, nausea, vomiting or diarrhea. The patient is not currently being treated for this problem. Note for Cold Symptoms: not getting any better not tried ot c- use warm compresses- temp 100.8- sob is congestion in noseEncounter Diagnosis: Acute sinusitis (461.9) [facility] Office Visit On: 01-Nov-2010 10:17 Encounter Reason: Follow up for chronic medical issues - The patient feels well with no complaints, has good energy level and is sleeping well. Patient has been compliant with instructions. Current medication use: no danilo End: 01-Nov-2010 10:58 e effects and compliant with dosing regimen. Patient sleeps 8 hours per night. Nutrition: inappropriate diet, supplemental vitamins and low salt diet. The medical issues the patient is following up for include All identified problems below, cardiac issues (mitral vavle insuff), gastric reflux, high cholesterol, osteoporosis/osteopenia and other (ibs, ddd, arthritis). weight : (home-139). 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 Patient has been compliant with instructions. Current medication use: no danilo End: 17-Jun-2010 8:01 e effects and compliant with dosing regimen. Patient sleeps 8 hours per night. Nutrition: inappropriate diet and no supplemental vitamins & iron. The medical issues the patient is following up for i nclude All identified problems below, cardiac issues (mitral vavle insuff), gastric reflux, high cholesterol, osteoporosis/osteopenia and other (ibs, ddd, arthritis). blood pressure range : (130's/80's) . Note for Follow up for chronic medical issues: she is feelingwell - no change in stomach or gerd- she admits to not exercising this summer and chol went astray becuase of it but tolerating the prava chol and only taking celexa qod and mood is good , [ADDITIONAL REASON] Follow up, Laboratory Test Results - Date: (06/02/10). Encounter Diagnosis: Need for prophylactic vaccination and inoculation against influenza (V04.81), Hypercholesterolemia (272.0), Gastritis (535.00), Irritable bowel syndrome (564.1), Osteopenia (733.90), screening [facility] Phone Encounter On: 01-Jun-2010 14:50 Encounter Diagnosis: Hypercholesterolemia (272.0), VITAMIN D DEFICIENCY, NOS (268.9), Screening for thyroid disorder (V77.0), SCREENING FOR BLOOD DISORDER NEC (V78.8) End: 01-Jun-2010 15:11 [facility] Office Visit On: 02-Mar-2010 16:17 Encounter Reason: Skin lesion - The skin lesion appeared gradually and has been occurring for months. It has been unchanging in size. The skin lesion is characterized as red (where its sore) ,brown and raised above the s End: 03-Mar-2010 21:20 kin. The skin lesion is located on the upper extremity (left underarm). There has been associated pain (from rubbing it when she walks or clothes rubbing it), while there has been no chills ,fever ,itching or loss of sensation. Encounter Diagnosis: Skin Tag, Irritated (701.9) [facility] Office Visit On: 15-Feb-2010 9:15 Encounter Reason: Follow up for chronic medical issues - The patient feels well with no complaints ,has good energy level and is sleeping well. Patient has been compliant with instructions. Current medication use: no danilo End: 15-Feb-2010 10:14 e effects and compliant with dosing regimen. Patient sleeps 7 hours per night. Nutrition: inappropriate diet and no supplemental vitamins & iron. The medical issues the patient is following up for i nclude All identified problems below ,cardiac issues (mitral vavle insuff) ,gastric reflux ,high cholesterol ,osteoporosis/osteopenia and other (ibs, ddd, arthritis). weight :. Note for Follow up for c hronic medical issues: no issues with the pravachol- bpis good- and weight down 2 pounds- walking 31/2 miles - 4 times a week- she admits to dietary indescretionwith carbs- will help with trigs- calciu m good- no gerd with meds- and anxiety is really good, [ADDITIONAL REASON] Follow up, Laboratory Test Results - Date: (02/02/10). Encounter Diagnosis: Sinusitis,chronic (473.9), Anxiety state, unspecified (300.00), Gerd (530.81), Hypercholesterolemia (272.0), VITAMIN D DEFICIENCY, NOS (268.9) [facility] Office Visit On: 26-Oct-2009 9:15 Encounter Reason: Follow up for chronic medical issues - The patient feels well with no complaints ,has good energy level and is sleeping well. Patient has been compliant with instructions. Current medication use: no danilo End: 26-Oct-2009 9:55 e effects and compliant with dosing regimen. Patient sleeps 9 hours per night. Nutrition: inappropriate diet and no supplemental vitamins & iron. The medical issues the patient is following up for i nclude All identified problems below ,cardiac issues (mitral vavle insuff) ,gastric reflux ,high cholesterol ,osteoporosis/osteopenia and other (ibs, ddd, arthritis). Note for Follow up for chronic med ical issues: she has been doing well - her gerd is well controlled on the zegerid and mood is good- she is taking pravachol and doing ok on that- and tolerating it, [ADDITIONAL REASON] Follow up, Laboratory Test Results - Date: (10/15/09). Encounter Diagnosis: VITAMIN D DEFICIENCY, NOS (268.9), Hypercholesterolemia (272.0), Gerd (530.81), Anxiety state, unspecified (300.00), DISORDERS OF CALCIUM METABOLISM, HYPERCALCEMIA (275.42) [facility] Office Visit On: 27-Jul-2009 9:00 Encounter Reason: Follow up for chronic medical issues - The patient feels well with no complaints ,has good energy level and is sleeping well. Patient has been compliant with instructions. Current medication use: no danilo End: 27-Jul-2009 9:52 e effects and compliant with dosing regimen. Patient sleeps 9 hours per night. Nutrition: inappropriate diet ,supplemental vitamins and low salt diet. The medical issues the patient is following up for include All identified problems below ,cardiac issues (mitral vavle insuff) ,gastric reflux ,high cholesterol ,osteoporosis/osteopenia and other (ibs, ddd, arthritis). Note for Follow up for chronic me dical issues: she had colonsocoopy - had polyp- was told benign followup 5 years- she tried pravachol but didnt keep taking and diddnt send for it- no side effects- she got zegerid and it helped her- b p is good and her weight is up - so encouraged routine exercise, [ADDITIONAL REASON] Follow up, Laboratory Test Results - Date: (07/13/09). , [ADDITIONAL REASON] Follow up, Diagnostic Procedure Results - Diagnostic tests include other (bone d exa). Date: (07/06/09). Encounter Diagnosis: Gerd (530.81), Anxiety state, unspecified (300.00), Hypercholesterolemia (272.0), Colon Polyps, History of (V12.72), Osteopenia (733.90) [facility] Historical Summary On: 02-Jul-2009 7:54 [facility] End: 02-Jul-2009 7:54 Historical Summary On: 24-Jun-2009 9:32 [facility] End: 24-Jun-2009 9:33 Office Visit On: 27-Apr-2009 8:23 Encounter Reason: Follow up, Laboratory Test Results - Date: (04/14/09- under date of 01/09). , [ADDITIONAL REASON] Follow up for chronic medical issues - The patient feels well with no complaints End: 27-Apr-2009 9:21 ,has good energy level and is sleeping well. Patient has been compliant with instructions. Current medication use: experiencing side effects (muscle pain from statin) and compliant with dosing regimen. Patient sleeps 8 hours per night. Nutrition: inappropriate diet ,supplemental vitamins and low salt diet. The medical issues the patient is following up for include All identified problems below ,gastr ic reflux ,high cholesterol ,osteoporosis/osteopenia and other (ddd, anxiety). Note for Follow up for chronic medical issues: her bowels are good and using miralax for constipation- she admits to not watching the diet so sometimes issues with the gastritis-- only tolereating crestor 5 mg every 3-4 days- makes muscles ache- hasnt been taking zegerid due to insurance Encounter Diagnosis: Hypercholesterolemia (272.0), Gastritis (535.00), Irritable bowel syndrome (564.1), Anxiety state, unspecified (300.00), enlarged pancreas /adrenal lesion, Osteopenia (733.90), screening [facility] Office Visit On: 22-Jan-2009 8:36 Encounter Reason: Follow up for chronic medical issues - The patient feels well with no complaints ,has good energy level and is sleeping poorly. Patient has been compliant with instructions. Current medication use: no s End: 25-Jan-2009 20:23 rubin effects and compliant with dosing regimen. Patient sleeps 2 (to 10hrs, different each night) hours per night. Nutrition: inappropriate diet ,supplemental vitamins and low salt diet. The medical issu es the patient is following up for include All identified problems below ,gastric reflux ,high cholesterol ,osteoporosis/osteopenia and other (ddd, anemia, ibs). Note for Follow up for chronic medical issues: her idarrhea is gone off the zegerid- and her stomach feels ok - bowels ok -- she didnt get the nerve study done because her numbness is better- her mood is good but still cant sleep- cant fall asleep- start with some tylenol pm-- -- sinus stuffy - using the nasal spray and does help, [ADDITIONAL REASON] Follow up, Laboratory Test Results - Date: (12/29/08). Encounter Diagnosis: Irritable bowel syndrome (564.1), Hypercholesterolemia (272.0), Anxiety state, unspecified (300.00), Gastritis (535.00), Diarrhea (787.91), Diverticulitis (562.11), Parasthesia (782.0), DISORDERS OF CALCIUM METABOLISM, HYPERCALCEMIA (275.42), atypical skin lesion-- shave bx set up , Lateral epicondylitis (Renamed from Backhand tennis elbow), wt gain--, enlarged pancreas and adrenal on ct- she never followed up for results with Drew and I encouraged to be compliant with this- will try to get the results-, ETD- , possible lipoma of right latissimus dorsi-, right latissimus dorsi pain- get mri of the muscle [facility] Office Visit On: 07-Dec-2008 17:46 Encounter Diagnosis: Diarrhea (787.91) End: 07-Dec-2008 18:08 [facility] Office Visit On: 01-Dec-2008 11:27 Encounter Reason: Sinus pain - The onset of the pain has been acute and has been occurring in a persistent pattern for 3 days. The course has been constant. The pain is characterized as a pressure sensation. The pain is End: 01-Dec-2008 12:02 experienced any time of the day (no diurnal variation). The pain is described as being located in the frontal area. The symptoms have been associated with nasal discharge/stuffy nose and tenderness over sinuses, while the symptoms have not been associated with ear pain ,eye pain ,nausea ,neck pain or vomiting. Note for Sinus pain: alot of facial pressure and burning throat teeth and gums hurtEncounter Diagnosis: Acute sinusitis (461.9) [facility] Office Visit On: 11-Nov-2008 12:17 Encounter Reason: Skin lesion - The skin lesion appeared rapidly and has been occurring for 1 months. It has been unchanging in size. The skin lesion is characterized as red ,crusty and raised above the skin. The skin le End: 12-Nov-2008 14:57 isabell is located on the back. There has been no associated chills ,itching ,loss of sensation or pain. Encounter Diagnosis: Other seborrheic keratosis (702.19) [facility] Office Visit On: 23-Oct-2008 12:06 Encounter Reason: Follow up for chronic medical issues - The patient feels well with no complaints ,has good energy level and is sleeping well. Patient has been compliant with instructions. Current medication use: no danilo End: 25-Oct-2008 20:39 e effects and compliant with dosing regimen. Patient sleeps 10 hours per night. Nutrition: inappropriate diet ,no supplemental vitamins & iron and low salt diet. The medical issues the patient is fo llowing up for include All identified problems below ,cardiac issues (mitral valve insuff) ,gastric reflux (pud) ,high cholesterol ,osteoporosis/osteopenia and other (ddd, ibs, anxiety). weight :. Note for Follow up for chronic medical issues: wt creeping and so is blood pressure- elbow not hurting --feels pretty good except when goes to bed at night- arms are tingling- goes into hands- both sides- ramon change positon and make it better- no weakness except when she carries something heavy left feels weak and achey- she had went down to 4 welchol- just wanted to see what would happen- her chol way up but not watching diet or exercise-- -- she would lijke to go back up on celexa- she is unmotivated and fatigued - more anxiuos, [ADDITIONAL REASON] Follow up, Laboratory Test Results - Date: (09/08/08). Encounter Diagnosis: Irritable bowel syndrome (564.1), Hypercholesterolemia (272.0), Anxiety state, unspecified (300.00), Sinusitis,chronic (473.9), DISORDERS OF CALCIUM METABOLISM, HYPERCALCEMIA (275.42), Osteopenia (733.90), Parasthesia (782.0) [facility] Office Visit On: 23-Jun-2008 8:18 Encounter Reason: Follow up for chronic medical issues - The patient feels well with minor complaints (elbow pain) ,has good energy level and is sleeping well. Patient has been compliant with instructions. Current medica End: 23-Jun-2008 9:16 tion use: no side effects and compliant with dosing regimen. Patient sleeps 8 hours per night. Nutrition: low salt diet. The medical issues the patient is following up for include All identified problem s below ,cardiac issues (mvp) ,gastric reflux ,high cholesterol ,osteoporosis/osteopenia and other (anxiety, ddd, ibs, arthritis). weight :. Note for Follow up for chronic medical issues: she saw Kayla cool and he put her on zelnormand it helped but her insurance wont cover-- breathing got better- if she watches what she eats not much gerd- wt stable and bp good-- anxiety is good=-- she is only taking 3 welchol a day-- so will go back to 6 , [ADDITIONAL REASON] Elbow Pain - The onset of the elbow pain has been gradual following no specific incident and has been occurring in an intermittent pattern for months. The course has been recurrent. The elbow pain is mild to moderate. The elbow pain is characterized as a burning sensation. The elbow pain is described as being located over the lateral elbow and over the posterior elbow. Aggravating factors include physical activity. There were no relieving factors. The symptoms have been associated with decreased range of motion ,swelling in the elbow ,difficulty using extremity ,difficulty strai ghtening arm and difficulty turning doorknobs, while the symptoms have not been associated with stiffness ,weakness ,numbness ,tingling ,grinding ,catching ,locking ,muscle atrophy ,swelling in the arm ,skin rash ,trauma ,fever ,chills ,difficulty with sports activities or other joint complaints. , [ADDITIONAL REASON] Follow up, Laboratory Test Results - Date: (06/08/08). Encounter Diagnosis: Hypercholesterolemia (272.0), Anxiety state, unspecified (300.00), Lateral epicondylitis (726.32), DISORDERS OF CALCIUM METABOLISM, HYPERCALCEMIA (275.42), Need for prophylactic vaccination and inoculation against influenza (V04.81), enlarged pancreas /adrenal lesion, Osteopenia (733.90), Gerd (530.81), Irritable bowel syndrome (564.1), atypical skin lesion-- shave bx set up [facility] Office Visit On: 17-Mar-2008 8:27 Encounter Reason: Follow up for chronic medical issues - The patient feels well with minor complaints (arthritis hurts) ,has good energy level and is sleeping well. Patient has been compliant with instructions. Current m End: 17-Mar-2008 22:30 edication use: no side effects and compliant with dosing regimen. The medical issues the patient is following up for include All identified problems below ,gastric reflux ,high blood pressure ,high chol esterol ,osteoporosis/osteopenia and other (ibs, arthritis, ddd, anxiety). Note for Follow up for chronic medical issues: she is still having arthritis issues- her labs neg-- xrays showed deg arthriti s- she doesnt do well with nsaids and glucosamine-- this made her gaseous-- maybe retry glucosamine at once a day to start- welchol could bloat as well - celexa is good for mood , [ADDITIONAL REASON] Follow up, Laboratory Test Results - Date: (02/25/08). Encounter Diagnosis: Hypercholesterolemia (272.0), Sinusitis,chronic (473.9), Gastritis (535.00), Irritable bowel syndrome (564.1), Anxiety state, unspecified (300.00), Gerd (530.81), DISORDERS OF CALCIUM METABOLISM, HYPERCALCEMIA (275.42) [facility] Office Visit On: 17-Dec-2007 8:28 Encounter Reason: Follow up for chronic medical issues - The patient feels well with minor complaints (hands hurt from arthritis) ,has good energy level and is sleeping well. Patient has been compliant with instructions. End: 17-Dec-2007 8:58 Current medication use: no side effects and compliant with dosing regimen. Nutrition: balanced diet ,no supplemental vitamins & iron and low salt diet. The medical issues the patient is following u p for include All identified problems below ,gastric reflux ,high blood pressure ,high cholesterol ,osteoporosis/osteopenia and other (anxiety, ddd, mitrial valve insufficiency). weight :. Note for Fol low up for chronic medical issues: saw mike had egd--gastritis and mri of pancreas-- she will see him again in 6 weeks- she is feeling well and no back pain- no issues with welchol- mood better with sunsrise--- and calcium level now normal, [ADDITIONAL REASON] Hand Pain - The onset of the hand pain has been gradual following no specific incident and has been occurring in a persistent pattern for months. The course has been gradually worse eleni. The hand pain is moderate to severe. The hand pain is characterized as a sharp stabbing. The hand pain is described as being located in the palmar hand ,index finger ,long finger ,ring finger and small finger. The hand pain is aggravated by work duties. There have been no relieving factors. The symptoms have been associated with muscle stiffness ,joint swelling ,painful ROM ,decreased ROM ,warmt h ,difficulty with shaking hands ,difficulty with fine motor skills ,difficulty with lifting ,difficulty with grasping and difficulty with pinching, while the symptoms have not been associated with burn ing sensation ,fever ,chills ,difficulty opening doors or difficulty turning keys in the ignition. Note for Hand Pain: first finger on the left swollen and painful-- no trauma- hurts to have sheets touch it-- , [ADDITIONAL REASON] Follow up, Laboratory Test Results - Date: (12/07/07). Encounter Diagnosis: Hypercholesterolemia (272.0), Anxiety state, unspecified (300.00), Irritable bowel syndrome (564.1), enlarged pancreas /adrenal lesion, Gastritis (535.00), arthritis left first digit [facility] Historical Summary On: 06-Nov-2007 13:20 [facility] End: 06-Nov-2007 13:20 Office Visit On: 17-Sep-2007 8:29 Encounter Reason: Follow up for chronic medical issues - The patient feels well with no complaints (so, so) ,has decreased energy level and is sleeping well. Patient has been compliant with instructions. Current medicati End: 17-Sep-2007 9:08 on use: experiencing side effects (weight gain from anti-depressant) and compliant with dosing regimen. Nutrition: inappropriate diet ,no supplemental vitamins & iron and low salt diet. The medical issues the patient is following up for include All identified problems below ,gastric reflux ,high cholesterol ,osteoporosis/osteopenia and other (chronic sinus, ibs, anxiety, ddd). weight :. Note for Follow up for chronic medical issues: back doing better with alot of exercise and she is changing insurances so she will check and see if he takes her insurance-- has gerd if doesnt watch her diet- no issues with the welchol- would like to wean to lower dose of celexa, [ADDITIONAL REASON] Follow up, Laboratory Test Results - Date: (09/05/07). Encounter Diagnosis: Hypercholesterolemia (272.0), Degenerative Disc Disease - Lumbar (722.52), enlarged pancreas /adrenal lesion, DISORDERS OF CALCIUM METABOLISM, HYPERCALCEMIA (275.42), Anxiety state, unspecified (300.00) [facility] Office Visit On: 16-Jul-2007 14:54 Encounter Reason: Follow up, Diagnostic Procedure Results - Diagnostic tests include CT scan (abd/pelvis) and other (bone density- 06/27/07). Date: (07/02/07). Encounter Diagnosis: enlarged pancreas /adrenal lesion, End: 16-Jul-2007 15:39 Degenerative Disc Disease - Lumbar (722.52), Osteopenia (733.90), Hypercholesterolemia (272.0), DISORDERS OF CALCIUM METABOLISM, HYPERCALCEMIA (275.42) [facility] Office Visit On: 25-Jun-2007 9:02 Encounter Reason: Follow up for chronic medical issues - The patient feels well with minor complaints (bloating from IBS) ,has good energy level and is sleeping poorly (tossing and turning). Patient has been compliant wi End: 25-Jun-2007 10:28 th instructions. Current medication use: no side effects and non-compliant with dosing regimen (stopped welchol and is now taking omega 3). Nutrition: inappropriate diet ,no supplemental vitamins & iron and low salt diet. The medical issues the patient is following up for include All identified problems below ,gastric reflux ,high cholesterol ,osteoporosis/osteopenia and other (IBS, chronic sinus, ddd, diverticulitis, anxiety). blood pressure range : (100's/60's) and weight :. Note for Follow up for chronic medical issues: not having lat pain any more-- cant lose wt - gained 10 pounds- likely celexa, [ADDITIONAL REASON] Follow up, Laboratory Test Results - Date: (06/10/07). Encounter Diagnosis: Hypercholesterolemia (272.0), Gerd (530.81), Osteopenia (733.90), Anxiety state, unspecified (300.00), Irritable bowel syndrome (564.1), Need for prophylactic vaccination and inoculation against influenza (V04.81), enlarged pancreas /adrenal lesion, wt gain-- [facility] Historical Summary On: 31-May-2007 11:07 [facility] End: 31-May-2007 11:07 Phone Encounter On: 31-May-2007 9:27 [facility] End: 31-May-2007 9:27 Nurse Visit On: 09-Apr-2007 10:47 [facility] End: 09-Apr-2007 10:49 Office Visit On: 05-Apr-2007 13:01 Encounter Diagnosis: Unspecified Diagnosis End: 05-Apr-2007 13:36 [facility] Office Visit On: 25-Mar-2007 14:55 Encounter Reason: Follow up for chronic medical issues - The patient feels well with minor complaints (back pain) ,has good energy level and is sleeping well. Patient has been compliant with instructions. Current medicat End: 25-Mar-2007 16:02 ion use: no side effects and compliant with dosing regimen. Nutrition: inappropriate diet ,no supplemental vitamins & iron and low salt diet. The medical issues the patient is following up for inclu de All identified problems below ,gastric reflux ,high cholesterol ,osteoporosis/osteopenia and other (anxiety, IBS, hypercalemia). Note for Follow up for chronic medical issues: gerd is stable and raheem nielsong to watch the diet- she does have colonoscopy scheduled for her diarrhea and intermittent abdominal pain- taking the welchol but not watching her diet- chol is high again- nothing changed in pancrea s and adrenal on ct and did see Colin and he wants to see her in fall but no want to do sx- and she said it feels better- calcium is normal, [ADDITIONAL REASON] Follow up, Laboratory Test Results - Date: (03/12/07 and 03/14/07- on face sheet). , [ADDITIONAL REASON] Follow up, Diagnostic Procedure Results - Diagnostic tests include X-Ray (l/s spine). Date: (03/14/07- on face sheet). Encounter Diagnosis: Hypercholesterolemia (272.0), Degenerative Disc Disease - Lumbar (722.52), Gerd (530.81) , diarrhea- getting colonoscopy, DISORDERS OF CALCIUM METABOLISM, HYPERCALCEMIA (275.42), enlarged pancreas and adrenal on ct- she never followed up for results with Drew and I encouraged to be compliant with this- will try to get the results- [facility] Office Visit On: 25-Dec-2006 9:09 Encounter Reason: Follow up for chronic medical issues - The patient feels well with minor complaints (arthritis) ,has decreased energy level and is sleeping well. Patient has been compliant with instructions. Current ok End: 25-Dec-2006 10:13 dication use: no side effects and non-compliant with dosing regimen. Nutrition: balanced diet ,inappropriate diet ,supplemental vitamins and low salt diet. The medical issues the patient is following up for include All identified problems below ,gastric reflux ,high cholesterol ,osteoporosis/osteopenia and other (pud, IBS, chronic sinus, hypercalemia, anxiety). weight :. 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 Encounter Diagnosis: Anxiety state, unspecified (300.00), Hypercholesterolemia (272.0), Gerd (530.81), DISORDERS OF CALCIUM METABOLISM, HYPERCALCEMIA (275.42), possible lipoma of right latissimus dorsi-, ETD- , enlarged pancreas and adrenal on ct- she never followed up for results with Drew and I encouraged to be compliant with this- will try to get the results- [facility] Office Visit On: 01-Oct-2006 12:24 Encounter Reason: Follow up tests - Diagnostic tests include MRI (chest). Date: (09/24/06- on paper chart.). Note for Follow up tests: she showed them the spot of issue and the MRI is normal- Encounter Diagnosis: End: 01-Oct-2006 12:59 right latissimus dorsi pain- get mri of the muscle, Hypercholesterolemia (272.0) [facility] Office Visit On: 18-Sep-2006 8:07 Encounter Reason: Follow up for chronic medical issues - The patient feels well with no complaints ,has decreased energy level and is sleeping poorly. Patient has been compliant with instructions. Current medication use: End: 18-Sep-2006 9:07 experiencing side effects (vytorin- myalgia) and non-compliant with dosing regimen (stopped the vytorin). Patient sleeps 5 hours per night. Nutrition: inappropriate diet and low salt diet. The medical issues the patient is following up for include gastric reflux ,high cholesterol and other (anxiety, hypercalemia). weight :. Note for Follow up for chronic medical issues: waking every 2 hours- no fee l depressed but does get issues in the winter- never followed up with Drew scherer- for her calcium and encouraged her she needs to follow up- pt had followup ct af abd to follow up adrenal and pancreas and she never followed up with W[facility] to get results, [ADDITIONAL REASON] Follow up, Laboratory Test Results - Date: (08/21/06- on face sheet.). , [ADDITIONAL REASON] Muscle pain - The onset of the pain has been gradual and has been occurring in a n intermittent pattern for months. The course has been increasing. The pain is described as a moderate dull aching (soreness). The pain is located in the shoulder ,in the upper arm and in the leg (knees ). The symptoms are aggravated by prolonged rest. The symptoms have no relieving factors. There has been no associated arthralgia ,cough ,fatigue ,fever ,headache or insomnia. Encounter Diagnosis: Hypercholesterolemia (272.0), Gerd (530.81), right latissimus dorsi pain- get mri of the muscle, enlarged pancreas and adrenal on ct- she never followed up for results with Drew and I encouraged to be compliant with this- will try to get the results-, Anxiety state, unspecified (300.00), DISORDERS OF CALCIUM METABOLISM, HYPERCALCEMIA (275.42) [facility] Historical Summary On: 14-Sep-2006 13:22 [facility] End: 14-Sep-2006 13:34 Historical Summary On: 03-Jul-2006 10:18 [facility] End: 03-Jul-2006 10:19 Office Visit On: 29-Jun-2006 11:22 [facility] End: 01-Jul-2006 8:53 Office Visit On: 09-May-2006 7:59 [facility] End: 09-May-2006 8:44 Payers Hum//Medicare Cleopatra Kuo; [place] guarantor
--- OUTSIDE RECORDS SUMMARY | 2018-09-29 08:17 | XMS RPT_ITS | Continuity of Care Document ---
:1945 Author Organization [facility] Address [facility] [address] [place] [address] Phone Care Team Providers Name Role Phone Camryn Faith DO Unavailable Artemio Huang MD Unavailable Christina MONROE, Dr. Avani Benitez Unavailable Rylan Bird MD Unavailable DERRICK George Unavailable Unavailable Unavailable Unavailable Problems Name Dates Details Abdominal pain, acute, generalized (R10.84, 789.07) Status: Active Abdominal pain, acute, left lower quadrant (Renamed from Acute abdominal pain in left lower quadrant) (R10.32, 789.04) Status: Active Abnormal blood finding (R79.9, 790.99) Status: Active Abnormal glucose tolerance test (Renamed from Abnormal glucose tolerance test (GTT)) (R73.02, 790.22) Status: Active Abnormal urine (R82.90, 791.9) Status: Active Anemia, unspecified (D64.9, 285.9) Comments: beto 2016 normal Status: Active Annual Medicare Phyiscal WITHOUT [...] Elevated pancreatic enzyme (R74.8, 790.5) Status: Active Encounter for annual general medical [...] unspecified iron deficiency anemia type (D50.9, 280.9) Comments: drop recently prob related to surgery with blood loss -- will follow and cont iron Status: Active Irritable bowel syndrome (K58.9, 564.1) Comments: goping to start probiotic and digestion support-- chg in diet Status: Active Leg cramp (R25.2, 729.82) Comments: improved off of crestor, getting lipid today and f/u with Dr. 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.3) Status: Active Need for prophylactic vaccination and [...] thoracic pain Status: Active screening Status: Active Sinusitis, chronic (J32.9, 473.9) Status: Active Stress incontinence, female (N39.3, 625.6) Status: Active Vitamin D deficiency, unspecified (E55.9, 268.9) Comments: on 5K D3 withK2 Status: Active Weight gain (R63.5, 783.1) Status: [...] DO, DO, Kathleen Start : 18-Apr-2018 Active TraMADol HCl 50 MG Oral Tablet 1 tab Tablet bid for 14 days Quantity: 42 {Tablet} Refills: 0 Ordered:05-Jul-2018 Domi Faith DO, DO, Kathleen Start : 05-Jul-2018 Active Comments:earlier refill was incorrect- didnt need it for mail away- is currently waiting on tabs in the mail-just needs 14 day supply till gets mail away- verbally called [facility] 12/14/15- earlier approved and signed OARS by rudolph Vitamin D3 2000 UNIT Oral Capsule 2 [...] days Quantity: 20 {Tablet} Refills: 0 Ordered:17-Jun-2015 Slabeatriz MEZA Itzel Start : 17-Jun-2015 End : 27-Jun-2015 Inactive [...] Start : 26-Apr-2016 End : 27-Nov-2016 Inactive PREMARIN, 0.625MG/GM (Vaginal Cream) uad twice a week (0.625 MG/GM) Inactive Prochlorperazine Maleate 10 MG Oral Tablet 1 (one) Tablet Tablet 1 q 8hrs prn for 0 days Quantity: 20 {Tablet} Refills: 0 Ordered:05-Jul-2018 Daly George LPN Start : 14-Feb-2017 End : 05-Jul-2018 Inactive Promethazine HCl 12.5 MG Oral Tablet 1 (one) Tablet Tablet q 8hr prn nausea and vomiiting for 0 days Quantity: 10 {Tablet} Refills: 0 Ordered:05-Jul-2018 Daly George LPN Start : 21-Feb-2017 End : 05-Jul-2018 Inactive Comments:hold for sedation TRAZODONE HCL, 50MG (Oral Tablet) 1 (one) [...] days Quantity: 90 {Tablet} Refills: 3 Ordered:27-Apr-2009 Yobany DO, Kylie Farris Start : 27-Apr-2009 End : 27-Apr-2009 Discontinued CRESTOR, 5MG (Oral Tablet) 1 Tablet qd for 0 days Quantity: 50 {Tablet} Refills: 0 Ordered:15-Feb-2016 Itzel Boucher LPN Start : 08-Sep-2014 End : 15-Feb-2016 [...] days Quantity: 90 {Tablet} Refills: 3 Ordered:10-Oct-2011 DO, Kylie A Start : 10-Oct-2011 End : 10-Oct-2011 Discontinued WELCHOL, 625MG (Oral Tablet) 6 Tablet Daily for 0 days Quantity: 540 {Tablet} Refills: 3 Ordered:23-Oct-2008 Casie Nichols Start : 23-Oct-2008 End : 01-Dec-2008 Discontinued Comments:generic ZEGERID, 40-1100MG (Oral Capsule) 1 cap Capsule qd for 0 days Quantity: 90 {Capsule} Refills: 3 Ordered:10-Oct-2011 Fast DO, Kylie A Start : 10-Oct-2011 End : 10-Oct-2011 Discontinued ZETIA, 10MG (Oral Tablet) 1 Tablet QD for 0 days Refills: 0 Ordered:18-Sep-2006 Magdalena Leroy Start : 18-Sep-2006 End : 01-Oct-2006 Discontinued ZOSTAVAX, 76624VLK/0.65ML (Subcutaneous Solution Reconstituted) 1 (one) For Solution [...] Active Past Medical History Name Dates Details Abdominal pain (R10.9, 789.00) Comments: Dr pelon ODELL, endopscopy Haital hernia.Onprilisec 20 mg Qdpain worse after eating, central, 01/10, most of the timect scan 10/19 diverticulosis Status: Inactive as of 05-Jul-2018 Acute sinusitis (J01.90, 461.9) 26-Dec-2010 Status: Resolved [...] per US Status: Resolved as of 20-Apr-2014 Elevated serum globulin level (R77.1, 790.99) Status: Inactive as of 05-Jul-2018 Encounter for Medicare annual wellness exam (Z00.00, [...] (M77.10, 726.32) Status: Resolved as of 25-Jan-2009 Low back pain (M54.5, 724.2) Status: Inactive as of 05-Jul-2018 Myalgia and myositis (729.1) Comments: improved Status: Inactive as of 03-Aug-2017 Nausea alone (R11.0, 787.02) Status: Inactive as of 05-Jul-2018 Nausea and vomiting in adult (R11.2, 787.01) Comments: from cipro-- pt didnt want to go back on augmentin so willing to purchase adn try levaquin -- will cont flagyll ---- medication side effect along with discont sympthomo from running out of cyBringmeta Status: Inactive as of 05-Dec-2017 Other specified [...] (B02.9, 053.9) Status: Resolved as of 19-May-2014 Shortness of breath on exertion (R06.02, 786.05) Comments: stress test and echo normaloffered pulm consult since cv normal but declined and we decidied to work on kid stones /hydronephrosis and epigastric pain first Status: Inactive as of 05-Jul-2018 Skin lesion of hand (L98.9, 709.9) Status: Inactive as of 05-Jul-2018 Thrush (B37.0, 112.0) Status: Inactive as of 27-Nov-2016 Unspecified Diagnosis Status: Inactive as of 20-Apr-2014 Unspecified Diagnosis Status: Inactive as of 22-Jan-2009 Urinary tract infection (N39.0, 599.0) Status: Resolved as of 20-Apr-2014 Wart (B07.9, 078.10) Status: Inactive as of 05-Jul-2018 wt gain-- Status: Resolved as of 25-Jan-2009 Procedures Procedure Dates Details bowel sx Completed Comments: 03/19 Date Value Details 24-Jun-2018 Surgery Visit Report Result: Comments: See Note; NOTES: [facility] [address] [place] [address] OFFICE VISIT Date of Service: 06/24/18 MR#: [id number] Acct: [id number] Name: BRANDIE KUO Rep #: [id number] : 1945 Provider: Rylan Bird MD Age/Sex: 73/F Location: [facility] Status: Signed Intake Vital Signs06/24/18 Height 5 ft 1.5 in 06/24/18 Weight: 149 lb Intake Visit Re asons: To discuss test results Chief Complaint: gerd, need for colonoscopy 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 Required: No Is patient in pain?: No Allergies erythromycin base Allergy (Verified 06/24/18 07:52) Rash ibuprofen [From Motrin] Allergy (Verified 06/24/18 07:52) Rash dicyclomine HCl [From Bentyl] Adverse Reaction (Verified 06/24/18 07:52) Nausea nitrofurantoin Adverse Reaction (Verified 06/24/18 07:52) Nausea Sul fa (Sulfonamide Antibiotics) Adverse Reaction (Verified 06/24/18 07:52) Nausea Medications traMADol [Ultram] 100 mg PO BID 09/30/13 [History Confirmed 06/24/18] Bergamot [[place] Bergamot] 02/12/17 [H istory Confirmed 06/24/18] Cyanocobalamin [...] (Acute) Arthritis (Acute) Constipation (Acute) Diabetes (Ac [place]) Diverticula of colon (Acute) GERD (gastroesophageal reflux [...] right upper quadrant ultrasound performed at the [facility] Fatty infiltration of the liver. Mild right hydronephrosis. No stones identified. Evidence of previous cholec ystectomy. April 30, 2018 contrast upper GI examination performed at the [facility] Normal findings May 08, 2018 CT scan abdomen and pelvis performed at the [facility]. 3 nonobstructing right renal collecting system [...] hagia R13.10 Plan Today was a 20-minute mflp-lf-vuvt consultative appointment. I reviewed all of the [...] Emptying Study Result: Comments: See Note; NOTES: [facility] Imaging Services [address] [place] [address] Gastric Emptying Study MR#: [id number] Acct: [id number] Name: BRANDIE KUO Rep #: [id number] : 1945 F 73 From: Carson Thacker DO PCP: Camryn Faith DO Status: REG CLI Study: Gastric Emptying Study Date of Exam: 05/31/18 Exam# [id number] Ordering Dr: Kay Sanchez PA-C CLINICAL : [...] throughout all components of the examination. (Alannah velazco al, J Nucl Med Tech 38: 186, 2010). Electronically Signed: Carson Thacker DO at 8:03 EDT Tel , Service support , CC: Kay Sanchez PA-C; Camryn Faith DO Claims Coordinator: Signed 28-May-2018 Surgery Visit Report Result: Comments: See Note; NOTES: [facility] [address] [facility] [place] [address] OFFICE VISIT Date of Service: 05/28/18 MR#: [id number] Acct: [id number] Name: ADITHYA KUORA Beckman Rep #: [id number] : 1945 Provider: Rylan Bird MD Age/Sex: 73/F Location: [facility] Status: Signed Intake Intake Visit Reasons: C-Scope [...] BI D 09/30/13 [History Confirmed 04/25/18] Bergamot [[place] Bergamot] 02/12/17 [History Confirmed 04/25/18] Cyanocobalamin (Vitamin [...] mcg PO DAILY 04/25/18 [History Confirmed 04/25/18] [facility] Medical History Screening for intestinal cancer [...] Esophagitis presence: esophagitis presence not specified 05/28/18 0102 <Electronically signed by Rylan Bird MD> Date Rylan Bird MD Cosigner Signature: Date (if applicable) CC: Camryn Faith DO 23-May-2018 Dexa Bone Density Study Result: Comments: See Note; NOTES: [facility] Imaging Services [address] [place] [address] Dexa Bone Density Study MR#: [id number] Acct: [id number] Name: BRANDIE KUO Rep #: [id number] : 1945 F 73 From: Zbigniew Carroll MD PCP: Camryn Faith DO Status: REG CLI Study: Dexa Bone Density Study Date of Exam: 05/23/18 Exam# [id number] Ordering Dr: Camryn Faith DO UDY: DUAL [...] Zbigniew Carroll MD at 8:17 EDT Tel [phone], Service support , CC: Camryn Faith DO Claims Coordinator: Signed 22-May-2018 Operative Report - Endoscopy Result: Comments: See Note; NOTES: [facility] Medical Records Department [address] [place] [address] Progress Note - Endoscopy 05/21/18 0647 MR#: [id number] Acct: [id number] Name: BRANDIE LOGAN Rep #: [id number] : 1945 73 From: Rylan Bird MD [...] 1 week. Procedure Code(s): --- Professional --- 41865, Colonoscopy, flexible; with transendoscopic balloon dilation Diagn osis Code(s): --- Professional --- Z12.11, Encounter for screening for malignant neoplasm of colon K64.9, Unspecified hemorrhoids Z98.0, Intestinal bypass and anastomosis status K57.30, Diverticulosis o f large intestine without perforation or abscess without bleeding CPT copyright 2017 [employer]. All rights reserved. The codes documented in this report are preliminary and upon header dock review may be revised to meet current [...] Bird MD Progress Note - Endoscopy CC: 6 DT: RDC Signed 21-May-2018 Progress Note - Endoscopy Result: Comments: See Note; NOTES: [facility] Medical Records Department [address] [place] [address] Progress Note - Endoscopy 05/21/18646 MR#: [id number] Acct: [id number] Name: BRANDIE LOGAN Rep #: [id number] : 1945 73 From: Rylan Bird MD [...] 1 week. Procedure Code(s): --- Professional --- 12897, Colonoscopy, flexible; with transendoscopic balloon dilation Diagn osis Code(s): --- Professional --- Z12.11, Encounter for screening for malignant neoplasm of colon K64.9, Unspecified hemorrhoids Z98.0, Intestinal bypass and anastomosis status K57.30, Diverticulosis o f large intestine without perforation or abscess without bleeding CPT copyright 2017 [employer]. All rights reserved. The codes documented in this report are preliminary and upon header dock review may be revised to meet current [...] Bird MD Progress Note - Endoscopy CC: 6 DT: RDC Signed 21-May-2018 Progress Note - Endoscopy Result: Comments: See Note; NOTES: [facility] Medical Records Department [address] [place] [address] Progress Note - Endoscopy 05/21/18646 MR#: [id number] Acct: [id number] Name: BRANDIE LOGAN Rep #: [id number] : 1945 73 From: Eduardo Adams MD Patient Name: Brandie Kuo Procedure Date: 05/21/2018 6:47 AM Date of : 1945 Account Number: [id number] Age: 73 Procedure: Colonoscopy Indications: Screening for [...] specimens collected. Recommendation: - Discharge [facility]. - Resume previous diet. - Continue present medications. - Return to my office in 1 week. Procedure Code(s): --- Professional --- 10579, Colonoscopy, flexible; with transendoscopic balloon dilation D iagnosis Code(s): --- Professional --- Z12.11, Encounter for screening for malignant neoplasm of colon K64.9, Unspecified hemorrhoids Z98.0, Intestinal bypass and anastomosis status K57.30, Diverticulos is of large intestine without perforation or abscess without bleeding CPT copyright 2017 [employer]. All rights reserved. The codes [...] Adams MD Progress Note - Endoscopy CC: 6 DT: AC Signed 21-May-2018 Progress Note - Endoscopy Result: Comments: See Note; NOTES: [facility] Medical Records Department [address] [place] [address] Progress Note - Endoscopy 05/21/18646 MR#: [id number] Acct: [id number] Name: BRANDIE LOGAN Rep #: [id number] : 1945 73 From: Eduardo Adams MD Patient Name: Brandie Kuo Procedure Date: 05/21/2018 6:47 AM Date of : 1945 Account Number: [id number] Age: 73 Procedure: Colonoscopy Indications: Screening for [...] specimens collected. Recommendation: - Discharge patient to [facility]. - Resume previous diet. - Continue present medications. - Return to my office in 1 week. Procedure Code(s): --- Professional --- 85384, Colonoscopy, flexible; with transendoscopic balloon dilation D iagnosis Code(s): --- Professional --- Z12.11, Encounter for screening for malignant neoplasm of colon K64.9, Unspecified hemorrhoids Z98.0, Intestinal bypass and anastomosis status K57.30, Diverticulos is of large intestine without perforation or abscess without bleeding CPT copyright 2017 [employer]. All rights reserved. The codes [...] Adams MD Progress Note - Endoscopy CC: 0647 DT: AC Signed 21-May-2018 Progress Note - Endoscopy Result: Comments: See Note; NOTES: [facility] Medical Records Department [address] [place] [address] Progress Note - Endoscopy 05/21/18621 MR#: [id number] Acct: [id number] Name: BRANDIE LOGAN Rep #: [id number] : 1945 73 From: Eduardo Adams MD Patient Name: Brandie Kuo Procedure Date: 05/21/2018 6:22 AM Date of : 1945 Account Number: [id number] Age: 73 Procedure: Upper GI endoscopy Indications: [...] week. Procedure Code(s): --- P rofessional --- 16744, Esophagogastroduodenoscopy, flexible, transoral; with biopsy, single or multiple Diagnosis Code(s): --- Professional --- K21.0, Gastro- esophageal reflux disease with esophagitis K 44.9, Diaphragmatic hernia without obstruction or gangrene K29.50, Unspecified chronic gastritis without bleeding CPT copyright 2017 [employer]. All rights reserved. The codes document ed in this report are preliminary and upon header dock review may be revised to meet current [...] without Cont Result: Comments: See Note; NOTES: [facility] Imaging Services [address] [place] [address] Abdomen/Pelvis without Cont MR#: [id number] Acct: [id number] Name: BRANDIE KUO Rep #: [id number] : 1945 F 72 From: Kenneth Hunter MD PCP: Camryn Faith DO Status: REG CLI Study: Abdomen/Pelvis without Cont Date of Exam: 05/08/18 Exam# [id number] Ordering Dr: Pino Jang MD STUDY: CT [...] CC: Pino Jang MD; Camryn Faith DO Claims Coordinator: Signed 30-Apr-2018 Upper GI w/BA Swallow Result: Comments: See Note; NOTES: [facility] Imaging Services [address] [place] [address] Upper GI w/BA Swallow MR#: [id number] Acct: [id number] Name: BRANDIE KUO Rep #: [id number] : 1945 F 72 From: Zbigniew Carroll MD PCP: Camryn Faith DO Status: REG CLI Study: Upper GI w/BA Swallow Date of Exam: 04/30/18 Exam# [id number] Ordering Dr: Rylan Bird MD STUDY: AIR-CONTRAST [...] Zbigniew Carroll MD at 15:59 EDT Tel [phone], Service support [phone], CC: Camryn Faith DO; Rylan Bird MD Claims Coordinator: Signed 25-Apr-2018 Surgery Visit Report Result: Comments: See Note; NOTES: [facility] [address] [place] [address] OFFICE VISIT Date of Service: 04/25/18 MR#: [id number] Acct: [id number] Name: BRANDIE KUO Rep #: [id number] : 1945 Provider: Rylan Bird MD Age/Sex: 72/F Location: [facility] Status: Signed Intake Vital Signs04/25/18 Height 5 ft 1 in 04/25/18 Weight: 149 lb 5 oz 04/25/18 Body Mass Index (BMI) 28.2 04/25/18 Blood Pressure 166/75 Intake Visit Reasons: Acid Reflux Chief Complaint: gerd, need for colonoscopy 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 Required: No Is patient in pain?: No Allergies erythrom ycin base Allergy (Verified 04/25/18 08:41) Rash ibuprofen [From Motrin] Allergy (Verified 04/25/18 08:41) Rash dicyclomine HCl [From Bentyl] Adverse Reaction (Verified 04/25/18 08:41) Nausea nitrofuran toin Adverse Reaction (Verified 04/25/18 08:41) Nausea Sulfa (Sulfonamide Antibiotics) Adverse Reaction (Verified 04/25/18 08:41) Nausea Medications traMADol [Ultram] 100 mg PO BID 09/30/13 [History Confirmed 04/25/18] Bergamot [[place] Bergamot] 02/12/17 [History Confirmed 04/25/18] Cyanocobalamin (Vitamin [...] cooperative, healthy appearing, comfortable, no acute distress HENBENJI Hea d: normal to inspection Eyes General: [...] Crystal Bird MD> Date Rylan Bird MD Cosigner Signature: Date (if applicable) CC: Camryn Marcell YEE 16-Apr-2018 Stress Report Result: Comments: See Note; NOTES: [facility] Cardiovascular Services [address] [place] [address] MR#: [id number] Acct: [id number] Name: BRANDIE KUO Rep #: [id number] : [birth year] 72 From: Julio Cote MD [...] 86 %. This note was generated with Watt[employer] dictation software. It may contain incorrect words, spelling, and punctuation that were not noted in checking the note before signing. 04/16/181713 <Electronically signed by Julio savage MD> Date Julio Cote MD CC: Camryn Faith DO Date Dictated: 04/16/181708 Date Transcribed: 04/16/181708 Claims Coordinator: PM Signed 16-Apr-2018 Echocardiogram Complete Result: Comments: See Note; NOTES: [facility] Cardiovascular Services [address] [place] [address] Echo Complete 04/16/18843 MR#: [id number] Acct: [id number] Name: BRANDIE KUO ep #: [id number] : 1945 72 From: Julio Cote MD Attending Dr: Camryn Faith DO Status: REG CLI Ordering Dr: Camryn Faith DO Date: 04/16/18 Location: [facility] Sex: F C Admitted: Reason F or [...] Physician: Camryn Faith Performed By: Sam Quinones [facility] 04/16/18 1559 Date Julio Cote MD CC: Camryn Faith DO Date Dictated: 04/16/18 0844 Date Transcribed: 04/16/18 1559 Claims Coordinator: Signed 16-Apr-2018 Abdomen Limited Result: Comments: See Note; NOTES: [facility] Imaging Services [address] [place] [address] Abdomen Limited MR#: [id number] Acct: [id number] Name: BRANDIE KUO Rep #: [id number] : 1945 F 72 From: Bairon Fernandez MD PCP: Camryn Faith DO Status: REG CLI Study: Abdomen Limited Date of Exam: 04/16/18 Exam# [id number] Ordering Dr: Camryn Faith DO STUDY: ABDOMINAL [...] Service support , CC: Camryn Faith DO Claims Coordinator: Signed 01-Feb-2018 Breast Limited Unilateral Result: Comments: See Note; NOTES: [facility] Imaging Services [address] [place] [address] Breast Limited Unilateral MR#: [id number] Acct: [id number] Name: BRANDIE KUO Rep #: [id number] : 1945 F 72 From: Zbigniew Carroll MD PCP: Camryn Faith DO Status: REG CLI Study: Breast Limited Unilateral Date of Exam: 02/01/18 Exam# [id number] Ordering Dr: Evelyn Patel CERTIFIED TECHNICIAN SPECIALIST-Sara STUDY: ULTRASOUND BREAST - RIGHT REASON FOR [...] Zbigniew Carroll MD at 15:46 EDT Tel [phone], Service support , CC: CHIQUIS Patel; Camryn Faith DO Claims Coordinator: Signed 01-Feb-2018 DIAG MAMM W/CAD, BILAT Result: Comments: See Note; NOTES: [facility] Imaging Services [address] [place] [address] DIAG MAMM W/CAD, BILAT MR#: [id number] Acct: [id number] Name: BRANDIE KUO Rep #: [id number] : 1945 F 72 From: Zbigniew Carroll MD PCP: Camryn Faith DO Status: [facility] Study: DIAG MAMM W/CAD, BILAT Date of Exam: 02/01/18 Exam# [id number] Ordering Dr: Evelyn Patel CERTIFIED TECHNICIAN SPECIALIST-C WAGNER MOGRAPHY - BILATERAL DIAGNOSTIC REASON FOR EXAM: Female, [...] Zbigniew Carroll MD at 15:36 EDT Tel [phone], Service support , CC: CHIQUIS Patel; Camryn Faith DO Claims Coordinator: Signed 29-Jan-2018 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 [place] [address] OFFICE VISIT Date of Service: 01/29/18 MR#: [id number] Acct: [id number] Name: ADITHYA KUO RA Rep #: [id number] : 1945 Provider: CHIQUIS Patel Age/Sex: 72/F [place] [facility]: Signed Intake Vital Signs01/29/18 Height 5 ft 1 in 01/29/18 Weight: 147 lb 6 oz 01/29/18 Body M ass Index (BMI) 27.8 01/29/18 Blood Pressure 131/74 Intake Visit Reasons: WELLNESS CHECK Chief Complaint: est annual 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 Required: No Is patient in pain?: Yes [...] BID 09/30/13 [History Confirmed 01/02 05/21] Bergamot [[place] Bergamot] 02/12/17 [History Confirmed 01/29/18] Cyanocobalamin (Vitamin [...] abortions Past Pregnancies Del. DatName GA/WeeksOutcome Route [facility] tn Unknown 1965 [...] alert, oriented to person, oriented to place HENOR Head: normal to inspection Neck Neck: normal [...] hospital records, she thought was done at [facility]. Will check [facility] records also. 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 Orders Orders: Medications New : Coding Level of Care Code Pelvic/Breast Diagnoses Encounter for gynecological examination with abnormal finding Z01.411 Gynecological examination findings: abnormal findings PRESENT Mass of righ t breast N63.10 Mastodynia of right breast N64.4 Atrophic vaginitis N95.2 01/29/18 0858 <Electronically signed by Evelyn MALDONADO> Date ____ Evelyn MALDONADO Cosigner Signature: Date (if applicable) CC: 26-Dec-2017 Carotid Duplex Ultrasound Result: Comments: See Note; NOTES: [facility] Cardiovascular Services [address] [place] [address] Carotid Duplex Ultrasound 12/25/17 1043 MR#: [id number] Acct: [id number] Name: JANET KitBRANDIE K Rep #: [id number] : 1945 72 From: Ej Ortiz MD Attending Dr: Camryn Faith DO Status: REG CLI Ordering Dr: Camryn Faith DO Date: 12/25/17 Location: [facility] Sex: F C Admitted: Reason For Study: [...] the left vertebral artery. Procedure Carotid Duplex 45245. Exam performed in [facility]. Interpretation Summary Mild (<50%) stenosis right extracranial internal carotid. Mild (<50%) stenosis left extracranial internal carotid. Flow within the vertebral arteries is antegrade bilaterally. Ordering Physician: Camryn Faith Referring Physician: Mai Faith Performed By: Adelita Ramirez RVT 12/26/17823 Date Ej Ortiz MD CC: Rk Faith DO Date Dictated: 12/25/17 1043 Date Transcribed: 12/26/17823 Claims Coordinator: Signed 26-Sep-2017 Urgent Care Visit Report Result: Comments: See Note; NOTES: [facility] [address] [place] [address] [address] [place] [address] OFFICE VISIT Date of Service: 08/28/17 MR#: [id number] Acct: [id number] Name: BRANDIE KUO Rep #: [id number] : 1945 Provider: Carmine ELDER Age/Sex: 72/F Location: [facility] [place] Status: Signed Intake Vital Signs08/28/17 Height 5 ft 1 in 08/28/17 Weight: 146 lb 08/28/17 Body Mass Index (BMI) 27.6 Intake Visit Reasons: Sinus infection 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 Required: No Is patient in pain?: No Allergies erythromycin base Allergy (Verified 08/28/17 09:42) Rash ibuprofen [From Motrin] Allergy (Verifie d 08/28/17 09:42) Rash dicyclomine HCl [From Bentyl] Adverse Reaction (Verified 08/28/17 09:42) Nausea nitrofurantoin Adverse Reaction (Verified 08/28/17 09:42) Nausea Sulfa (Sulfonamide Antibiotics) Ad verse Reaction (Verified 08/28/17 09:42) Nausea Medications TraMADol [Ultram] 100 mg PO BID 09/30/13 [History Confirmed 03/20/17] Bergamot [[place] Bergamot] 02/12/17 [History] BusPIRone [Buspar] 15 m [...] Days #20 cap 08/28/17 [Rx Confirmed 08/28/17] [facility] Medical History Hyperlipidemia (Chronic) Acute diverticulitis (Acute) [...] acute Recurrence: non-recurrent Sinusitis location: maxillary 09/10/17 1614 <Electronically signed by Carmine ELDER> Date Carmine ELDER Cosigner Signature: Date (if applicable) CC: 10-Sep-2017 Urgent Care Visit Report Result: Comments: See Note; NOTES: [facility] [address] [place] [address] OFFICE VISIT Date of Service: 08/28/17 MR#: [id number] Acct: [id number] Name: BRANDIE KUO Rk Rep #: [id number] : 1945 Provider: Carmine ELDER Age/Sex: 72/F Location: [facility] [place] Status: Signed Intake Vital Signs08/28/17 Height 5 ft 1 in 08/28/17 Weight: 146 lb 08/28/17 Body Mass Index (BMI) 27.6 Intake Visit Reasons: Sinus infection 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 Required: No Is patient in pain?: No Allergies erythromycin base Allergy (Verified 08/28/17 09:42) Rash ibuprofen [From Motrin] Allergy (Verifie d 08/28/17 09:42) Rash dicyclomine HCl [From Bentyl] Adverse Reaction (Verified 08/28/17 09:42) Nausea nitrofurantoin Adverse Reaction (Verified 08/28/17 09:42) Nausea Sulfa (Sulfonamide Antibiotics) Ad verse Reaction (Verified 08/28/17 09:42) Nausea Medications TraMADol [Ultram] 100 mg PO BID 09/30/13 [History Confirmed 03/20/17] Bergamot [[place]'S Bergamot] 02/12/17 [History] BusPIRone [Buspar] 15 m [...] maxillary Chronici ty: acute Recurrence: non-recurrent 09/10/17 1614 <Electronically signed by Carmine ELDER> Date Carmine ELDER Cosigner Signature : Date (if applicable) CC: 16-Apr-2017 SCREENING MAMM (CAD), BILAT Result: Comments: See Note; NOTES: [facility] Imaging Services [address] [place] [address] SCREENING MAMM (CAD), BILAT MR#: [id number] Acct: [id number] Name: BRANDIE KUO Rep #: [id number] : 1945 F 71 From: Zbigniew Carroll MD PCP: Camryn Faith DO Status: REG CLI Study: SCREENING MAMM (CAD), BILAT Date of Exam: 04/16/17 Exam# [id number] Ordering Dr: Camryn Faith DO MAMMOGRAPHY - [...] delay biopsy of a clinically suspicious abnormality. [id number] Electronically Signed: Zbigniew Carroll MD at 8:58 EDT Tel [phone], Service support , CC: Camryn Faith DO Claims Coordinator: Signed 15-Mar-2017 12 Lead Electrocardiogram Result: Comments: See Note; NOTES: [facility] Cardiovascular Services [address] [place] [address] EKG - SDC 03/14/1732 MR#: [id number] Acct: [id number] Name: BRANDIE KUO Rep # : [id number] : 1945 71 From: Luis Buckley MD Attending Dr: Rylan Bird MD Status: PRE IN Ordering Dr: Rylan Bird MD Date: 03/14/17 Location: [facility] Sex: F C Admitted: Test Reason [...] Borderline ECG Confirmed by LUIS BUCKLEY ([id number]), business editor DEENA TOUSSAINT ([id number]) on 03/15/2017 10:41:46 AM Referred By: CARLIE TEJEDA Confirmed By:LUIS BUCKLEY 03/15/17 1041 Date Luis Buckley MD CC: Luis Buckley MD; Camryn Faith DO Date Dictated: 03/14/17731 Date Transcribed: 03/14/17731 Claims Coordinator: Signed 12-Feb-2017 Emergency Department Summary Result: Comments: See Note; NOTES: [facility] Medical Records Department [address] [place] [address] Emergency Department Summary MR#: [id number] Acct: [id number] Name: BRANDIE KUO Rep #: [id number] : 1945 71 From: Luis Garcia DO PCP: Camryn Faith DO Status: [facility] ER DATE OF SERVICE: 02/12/2017 CHIEF COMPLAINT: [...] diverticulitis. Luis kenney DO T: NTS JOB: [id number] 02/12/172224 <Electronically signed by Luis Garcia DO> Date Luis Garcia DO Cosigner Signature (If I ndicated): Date CC: Camryn Faith DO Date Dictated: 02/12/171934 Date Transcribed: 02/12/171934 Claims Coordinator: Signed 12-Feb-2017 Discharge Instruction Result: Comments: See Note; NOTES: [facility] Medical Records Department [address] [place] [address] Discharge Instruction 02/12/171913 MR#: [id number] Acct: [id number] Name: Michelle KUO Rep #: [id number] : 1945 71 From: Lusi Garcia DO PCP: Camryn Faith DO Status: [...] your Primary Care Provider. Call Doctors Registry ([phone]) or report to the closest Emergency Room. Call 911 if necessary. 02/12/171915 <Electron ically signed by Luis Garcia DO> Date Luis Garcia DO Cosigner Signature (If Indicated): Date CC: Camryn Faith DO 12-Feb-2017 Abdomen/Pelvis W IV Cont ONLY Result: Comments: See Note; NOTES: [facility] Imaging Services [address] [place] [address] Verdana 4d Abdomen/Pelvis W IV Cont ONLY MR#: [id number] Acct: [id number] Name: ADITHYA KUO RA Beckman Rep #: [id number] : 1945 F 71 From: Gloria Whitman MD PCP: Camryn Faith DO Status: REG ER Study: Abdomen/Pelvis W IV Cont ONLY Date of Exam: 02/12/17 Exam# [id number] Ordering Dr: Palak Garcia DO STUDY: CT [...] techniques were used for this CT. COMPARISON: [facility] 2015 CT scan abdomen and pelvis FINDINGS: [...] CC: Luis Garcia DO; Camryn Faith DO Claims Coordinator: Signed 03-May-2016 Transvaginal Non- Result: Comments: See Note; NOTES: [facility] Imaging Services [address] [place] [address] Verdana 4d Transvaginal Non- MR#: [id number] Acct: [id number] Name: BRANDIE KUO Rep #: [id number] : 1945 F 70 From: Zbigniew Carroll MD PCP: Royal Perea Status: REG CLI Study: Transvaginal Non- Date of Exam: 05/03/16 Exam# [id number] Ordering Dr: Royal Perea STUDY: ULTRASOUND OF [...] Zbigniew Carroll MD at 11:16 EDT Tel [phone], Service support [phone], CC: Royal Perea Claims Coordinator: Signed 03-May-2016 Abdomen Complete Result: Comments: See Note; NOTES: [facility] Imaging Services [address] [place] [address] Verdana 4d Abdomen Complete MR#: [id number] Acct: [id number] Name: BRANDIE KUO Rep #: [id number] : 1945 F 70 From: Zbigniew Carroll MD PCP: Royal Perea Status: REG CLI Study: Abdomen Complete Date of Exam: 05/03/16 Exam# [id number] Ordering Dr: Royal Perea STUDY: ABDOMINAL ULTRASOUND [...] Zbigniew Carroll MD at 11:14 EDT Tel [phone], Service support [phone], CC: Royal Perea Claims Coordinator: Signed 03-May-2016 Pelvic (Non ) Result: Comments: See Note; NOTES: [facility] Imaging Services [address] [place] [address] Verdana 4d Pelvic (Non ) MR#: [id number] Acct: [id number] Name: AYAANBRANDIERA Rk Cabrera p #: [id number] : 1945 F 70 From: Zbigniew Carroll MD PCP: Royal Perea Status: REG CLI Study: Pelvic (Non ) Date of Exam: 05/03/16 Exam# [id number] Ordering Dr: Royal Perea STUDY: ULTRASOUND OF [...] Zbigniew Carroll MD at 11:16 EDT Tel [phone], Service support [phone], CC: Royal Perea Claims Coordinator: Signed 15-Feb-2016 Bilat Scrn Digital AND CAD Result: Comments: See Note; NOTES: [facility] Imaging Services [address] [facility] [place] [address] Verdana 4d Bilat Scrn Digital AND CAD MR#: [id number] Acct: [id number] Name: BRANDIE KUO Rep #: [id number] : 1945 F 70 From: Zbigniew Carroll MD PCP: Royal Perea Status: REG CLI Study: Bilat Scrn Digital AND CAD Date of Exam: 02/15/16 Exam# [id number] Ordering D r: Yobany, Kylie DO MAMMOGRAPHY - BILATERAL SCREENING REASON FOR [...] delay biopsy of a clinically suspicious abnormality. [id number] Electronically Shaina d: Zbigniew Carroll MD at 9:50 EDT Tel [phone], Service support [phone], CC: Kylie Haywood DO; Royal Perea Claims Coordinator: Signed 15-Feb-2016 Dexa Bone Density/Append Skel Result: Comments: See Note; NOTES: [facility] Imaging Services [address] [place] [address] Verdana 4d Dexa Bone Density/Append Skel MR#: [id number] Acct: [id number] Wilder e: BRANDIE KUO Rep #: [id number] : 1945 F 70 From: Zbigniew Carroll MD PCP: Royal Perea Status: REG CLI Study: Dexa Bone Density/Append Skel Date of Exam: 02/15/16 Exam# [id number] Orde ring Dr: Kylie Haywood DO STUDY: [...] Zbigniew Carroll MD at 9:26 EDT Tel [phone], Service support [phone], CC: Kylie Haywood DO; Royal Perea Claims Coordinator: Signed 02-Feb-2016 Carotid Duplex Ultrasound Result: Comments: See Note; NOTES: [facility] Cardiovascular Services [address] [place] [address] Carotid Duplex Ultrasound 02/01/16 0856 MR#: [id number] Acct: [id number] Name: BRANDIE KUO Rep #: [id number] : 1945 70 From: Ej Ortiz MD [...] the left vertebral artery. Procedure Carotid Duplex 27687. The exam was diagno stic. Exam performed in department. Interpretation Summary Mild (<50%) stenosis right extracranial internal carotid. Mild (<50%) stenosis left extracranial internal carotid. Flow wi thin the vertebral arteries is antegrade bilaterally. Ordering Physician: Kylie Haywood By: Blue Joseph RVT 02/02/16 1123 Date Ej Ortiz MD CC: Kylie Haywood DO Date Dictated: 02/01/16 0856 Date Transcribed: 02/02/16 1123 Claims Coordinator: Signed 25-Jan-2016 EKG (63020) Comments: ekg showed normal sinus rhythym, normal axis, no acute st/t wave changes Result: [MEASUREMENTS ANALYSIS] Date of Test: 01/25/2016 10:38:09; Heart Rate: 73; AR Interval: 132; QRS: 95; QT Interval: 408; Corrected QT Interval (QTc): 430; P Wave Pearcy: 52; QRS Wave Pearcy: 20; T Wave Pearcy: 61; Blood Pressure: 124/68 [ECG DIAGNOSTIC STATEMENTS] Date of Test: 01/25/2016 10:38:09; Summary: Sinus Rhythm Low voltage in limb leads. ABNORMAL 28-Oct-2015 Abdomen/Pelvis WITH Contrast Result: Comments: See Note; NOTES: [facility] Imaging Services [address] [place] [address] Verdana 4d Abdomen/Pelvis WITH Contrast MR#: [id number] Acct: [id number] Name : BRANDIE KUO Rep #: [id number] : 1945 F 70 From: Zbigniew Carroll MD PCP: Kylie Haywood DO Status: REG CLI Study: Abdomen/Pelvis WITH Contrast Date of Exam: 10/28/15 Exam# [id number] [facility] Dr: Kylie Haywood DO STUDY: CT ABDOMEN [...] Zbigniew Carroll MD at 15:09 EST Tel [phone], Service support [phone], CC: Kylie Haywood DO Claims Coordinator: Signed 25-Oct-2015 L/S Spine Min 4 Views Result: Comments: See Note; NOTES: [facility] Imaging Services [address] [place] [address] Verda 4d L/S Spine Min 4 Views MR#: [id number] Acct: [id number] Name: BRANDIE KUO Rep #: [id number] : 1945 F 70 From: Zbigniew Carroll MD PCP: Kylie Haywood DO Status: REG CLI Study: L/S Spine Min 4 Views Date of Exam: 10/25/15 Exam# [id number] Ordering Dr: Kylie Haywood DO STUDY: X-RAY [...] Zbigniew Carroll MD at 8:59 EST Tel [phone], Service support [phone], RAD/L/S Spine Min 4 Views IMPRESSION: Degenerative changes of the spine, as detailed a zabrina. Electronically Signed: Zbigniew Carroll MD at 8:59 EST Tel [phone], Service support [phone], CC: Kylie Haywood DO Claims Coordinator: Signed 17-Jun-2015 Operative Report Result: Comments: See Note; NOTES: [facility] Medical Records Department [address] [place] [address] Operative Report MR#: [id number] Acct: [id number] Name: BRANDIE KUO Rep #: [id number] : 1945 70 From: Rylan Bird MD [...] years. Rylan Bird MD T: NTS JOB: [id number] 06/17/15 0548 <Electronically signed by Rylan Bird MD> Date Rylan hidalgo Signature (If Indicated): Date CC: Kylie Haywood DO; Rylan Bird MD Date Dictated: 06/16/15833 Date Transcribed: 06/16/15833 Claims Coordinator: Signed 15-Feb-2015 Carotid Duplex Ultrasound Result: Comments: See Note; NOTES: [facility] Cardiovascular Services [address] [place] [address] Carotid Duplex Ultrasound 02/15/15 1339 MR#: [id number] Acct: [id number] Na me: BRANDIE KUO Rep #: [id number] : 1945 69 From: Ej Ortiz MD [...] the left vertebral artery. Procedure Carotid Duplex 76025. The exam was diagnostic. Exam performed in [...] Date Dictated: 02/15/15 1339 Date Transcribed: 02/15/151944 Claims Coordinator: Signed 09-Feb-2015 Bilat Scrn Digital AND CAD Result: Comments: See Note; NOTES: [facility] Imaging Services [address] [place] [address] Breast Imaging Report MR#: [id number] Acct: [id number] Name: BRANDIE KUO Rep #: [id number] : 1945 F 69 From: Zbigniew Carroll MD PCP: Kylie Haywood DO Status: REG CLI Study: Logan Roperjeff Digital AND CAD Date of Exam: 02/09/15 Exam# [id number] Ordering Dr: Kylie Haywood DO MAMMOGRAPHY - [...] Zbigniew pop MD at 10:49 EDT Tel [phone], Service support [phone], CC: Kylie Haywood DO; EVELYN PATEL Claims Coordinator: Signed 05-Sep-2014 Discharge Instruction Result: Comments: See Note; NOTES: [facility] Medical Records Department [address] [facility] [place] [address] Discharge Instruction 09/05/14 0648 MR#: [id number] Acct: [id number] Name: BRANDIE KUO Rep #: [id number] : 1945 69 From: Kamran Swartz MD [...] problems, contact your doctor. Call Doctors Registry ) or report to the closest Emergency Room. Call 911 if necessar y. 09/05/14 0744 <Electronically signed by Kamran Swartz MD> Date Kamran Swartz MD Cosigner Signature (If Indicated): Date CC: Kylie Haywood DO 05-Sep-2014 Discharge Instruction Result: Comments: See Note; NOTES: [facility] Medical Records Department [address] [place] [address] Discharge Instruction 09/05/14 0647 MR#: [id number] Acct: [id number] Name: BRANDIE UKO Rep #: [id number] : 1945 69 From: Kamran Swartz MD [...] problems, contact your doctor. Call Doctors Registry ) or report to the closest Emergency Room. Call 911 if necessar y. 09/05/14 0648 <Electronically signed by Kamran Swartz MD> Date Kamran Swartz MD Cosigner Signature (If Indicated): Date CC: Kylie Haywood DO 05-Sep-2014 Abdomen/Pelvis without Cont Result: Comments: See Note; NOTES: [facility] Imaging Services [address] [place] [address] CAT Scan Report MR#: [id number] Acct: [id number] Name: BRANDIE KUO Rep #: [id number] : 1945 F 69 From: Viviana Robles PCP: Kylie Haywood DO Status: REG ER Study: Abdomen/Pelvis without Cont Date of Exam: 09/05/14 Exam# [id number] Ordering Dr: Kamran Swartz MD STUDY: CT [...] malignancy, followup with [facility] is [facility] n[facility] appropriate [facility]. 2. Non-obstructing small right renal calculus. 3. Degenerative lumbosacral spondylosis. Electronically Signed: Brooks Robles MD at 6:33 EST Tel , Service support [phone], CC: Kylie Haywood DO; Kamran Swartz MD Claims Coordinator: Signed 16-Jan-2014 Bilat Scrn Digital & CAD Result: Comments: See Note; NOTES: [facility] Imaging Services [address] [place] [address] Breast Imaging Report MR#: [id number] Acct: [id number] Name: BRANDIE KUO Rep #: [id number] : 1945 F 68 From: Zbigniew Carroll MD PCP: Kylie Haywood DO Status: REG CLI Exam# [id number] Ordering Dr: Kylie Haywood DO MAMMOGRAPHY - BILATERAL SCREENING REASON FOR EXAM: Dmitry nelson, 68 years old. Routine annual screening examination. [...] Zbigniew Carroll MD at 8:42 EDT Tel [phone], Service support [phone], CC: Kylie Haywood DO Claims Coordinator: Signed 14-Oct-2013 Ribs Uni Min 3V w/PA Chest Result: Comments: See Note; NOTES: [facility] Imaging Services [address] [place] [address] Radiology Report MR#: [id number] Acct: [id number] Name: BRANDIE KUO Rep #: [id number] : 1945 F 68 From: Zbigniew Carroll MD PCP: Kylie Haywood DO Status: REG CLI Study: Ribs Uni Min 3V w/PA Chest Date of Exam: 10/14/13 Exam# [id number] Ordering Dr: Kylie Haywood DO STUD Y: [...] M.D. at 15:39 EST , Service support [phone], CC: Kylie Haywood DO Claims Coordinator: Signed 15-Jul-2013 Dexa Bone Density Study (HP) Result: Comments: See Note; NOTES: [facility] Imaging Services [address] [place] [address] Bone Density Report MR#: [id number] Acct: [id number] Name: BRANDIE KUO Rep #: [id number] : 1945 F 68 From: Zbigniew Carroll MD PCP: Status: REG CLI Study: Dexa Bone Density Study (HP) Date of Exam: 07/15/13 Exam# [id number] Ordering Dr: Kylie Haywood DO STUDY: DUAL [...] M.D. July 042012 at 8:59:54 AM EST [phone] Electronically Signed GP/GP If you are the referring physician and would like to consult with the radiologist who provided this interpretation, please conta mikhail Carroll M.D. at [phone]. If this radiologist is unavailable, you will be directed to another radiologist to assist. If you are a patient with a question regarding this report, pl ease contact your referring physician directly. Professional Interpretation Provided By: [employer], Phone , These documents contain legally protected [...] of these documents. CC: Kylie Haywood DO Claims Coordinator: Signed Immunization Name Dates Details Influenza (3 years and up) on: 25-Jun-2007 Comments: given in left deltoid, 0.5cc, lot#[id number], exp.08 WF Influenza (3 years and up) on: 23-Jun-2008 Pneumococcal (2 years and up) on: 25-Jun-2007 Comments: given in right deltoid, 0.5cc, lot#[id number], exp.08 WF Family History Unknown Family Member Name [...] smoker Vital Signs Date Test Result Details :59 Pulse 74 /min Comments: Pattern: Regular Respiration Rate 18 /min Comments: Pattern: Unlabored O2 SAT 94 % Comments: Room air BP Systolic 124 mm[Hg] Comments: Patient Position: Standing; Cuff Location: Left Arm; Cuff Size: Large BP Diastolic 62 mm[Hg] Comments: Patient Position: Standing; Cuff Location: Left Arm; Cuff Size: Large Weight 146.375 lb Height 61 in Body Mass Index Calculated 27.66 kg/m2 Body Surface Area Calculated 1.65 m2 :20 Comments: Dr. Quick and had a glaucoma [...] 0.00 cm Results Date Description Value Details :02 Blood Glucose , Office (80632) Blood Glucose , Office 102 (Normal) :02 HgA1C , Office (06773) HgA1C , Office 5.5 % (Normal) Range: 4.6 - 7.1 :27 CBC W/Diff, Automated Comments: [facility] [address] [place], [place], [address] Absolute Lymph 0.97 {X10_3/ul} (Normal) Range: 0.83-4.51 [...] 4.2-5.4 WBC 5.2 K/mm3 (Normal) Range: 4.4-11.0 9-Xhb-693874:27 Comprehensive Metabolic Profil Comments: [facility] [address] [place], [place], [address] GAP 9 (Normal) Range: 5-15 CO2 28.0 [...] Comments: Please note revised GLUCOSE reference range wltoqgezq44/02/2018. 94-Ojm-88505:3 EGD ([facility]) See Note (Normal) Comments: [facility] [address] [place], [address] 0 Comments: Patient: BRANDIE KUO : 1945 (73/F) Acct Num: [id number] Phys: Rylan Bird MD Unit Num: [id number] Loc: EN Specimen: [id number] Received: 05/21/1817 Spec Type: EGD B IOPSY TISSUES TISSUES: A. Gastric mucous membrane B. Esophageal mucous membrane C. Esophageal mucous membrane COMMENT The results of immunohisto chemistry for Helicobacter pylori will be reported separately ([id number]). GROSS DESCRIPTION A - Received in fixative [...] one cassette. / SJ:aga 05/21/18 TC:3 CPT: 94354 x3 HEADER OPERATION: Colonoscopy , EGD (MOD) [...] of inflammation. AM:aga 05/22/18 Signed ___ [facility] 05/22/18 <signature on file> 10-Uxw-67681:0 IMMUNOHISTOCHEMISTRY See Note (Normal) Comments: [facility] [address] [facility] [place], [place], [address] 0 Comments: Patient: BRANDIE KUO : 1945 (73/F) Acct Num: [id number] Phys: Pelon MONROE,Rylan Unit Num: [id number] Loc: EN Specimen: [id number] Received: 05/22/18 - 1430 Spec Type: IMMUN O TISSUES TISSUES: A. Stomach, NOS SPECIMEN INFORMATION: Tissue Source: A Antral biopsy Clinical Info: GERD, esophagitis, screening Specimen Number: [id number] CPT code: 29276 METHODOLOGY: Deparaffinized sections of prefer/formalin- fixed tissue [...] developed and their performance characteristics determined by [facility]. They may not have been cleared or approved by the U.S. Food and Drug Administration. The FDA has determined that such clearance or approval is not necessary. INTERPRETATION: A. Antral biopsy: Negative for Helicobacter pylori organisms. AM:aga 05/24/18 PHYSICIAN AND INSTITUTION [place] [address] Sign ed Edgard Pipe 05/24/18 <signature on file> :18 C-REACTIVE PROTEIN (63879) Comments: PATIENT NOT FASTINGPERFORMED BY: [facility] Fcbmlt2996 [facility] [id number] C-Reactive Protein, Quant 4.9 mg/L (Normal) Range: 0.0-4.9 :18 ESR-F (SED RATE ERYTHROCYTE - Comments: PATIENT NOT FASTINGPERFORMED BY: [facility] Npwxkx5579 [facility] [id number] FEMALE) (83664) Sedimentation Rate-Westergren 24 mm/h (Normal) Range: 0-40 :18 LIPASE (26022) Comments: PATIENT NOT FASTINGPERFORMED BY: [facility] Zatxjs9786 [facility] [id number] Lipase 76 U/L (Normal) Range: 14-85 :18 AMYLASE (15256) Comments: PATIENT NOT FASTINGPERFORMED BY: [facility] Apqsif9547 [facility] [id number] Amylase 111 U/L (Normal) Range: 31-124 :18 TSH (71829) Comments: PATIENT NOT FASTINGPERFORMED BY: [facility] Ejxfpr2451 [facility] [id number] TSH 3.730 {uIU/mL} (Normal) Range: 0.450-4.500 :18 T4, FREE (THYROXINE) (89179) Comments: PATIENT NOT FASTINGPERFORMED BY: [facility]Dbgbog5634 [facility] [id number] T4,Free(Direct) 0.84 ng/dL (Normal) Range: 0.82-1.77 :18 T3, FREE (TRIDOTHYRONINE) (60714) Comments: PATIENT NOT FASTINGPERFORMED BY: [facility]Aoyitn3696 [facility] [id number] Triiodothyronine (T3), Free 2.7 pg/mL (Normal) Range: 2.0-4.4 :13 HgA1C , Office (50240) HgA1C , Office 5.8 % (Normal) Range: 4.6 - 7.1 :13 Blood Glucose , Office (13268) Blood Glucose , Office 98 (Normal) :31 CBC W/Diff, Automated Comments: [facility] [address], [place], [address] Absolute Lymph 0.71 {X10_3/ul} (Abnormal) Range: 0.83-4.51 [...] Range: 4.4-11.0 04-Apr-20189:31 Comprehensive Metabolic Profil Comments: [facility] [address] [place], [address] GAP 10 (Normal) Range: 5-15 CO2 27.0 [...] Comments: Please note revised GLUCOSE reference range qteauiopb31/02/2018. 77-Fpq-98358:29 CBC W/Diff, Automated Comments: [facility] [address] [place], [place], [phone] Absolute Lymph 0.84 {X10_3/ul} (Normal) Range: 0.83-4.51 [...] 4.2-5.4 WBC 5.8 K/mm3 (Normal) Range: 4.4-11.0 27-Ooq-26422:29 Comprehensive Metabolic Profil Comments: [facility] [address] [place], [place], [address] GAP 5 (Normal) Range: 5-15 CO2 30.0 [...] Comments: Please note revised GLUCOSE reference range atzdxqtfs46/02/2018. 73-Hju-91848:14 METABOLIC PANEL, COMPREHENSIVE Comments: PATIENT WAS FASTINGPERFORMED BY: [facility]Zxiqvf5773 [facility] [id number] (83543) ALT (SGPT) 26 [iU]/L (Normal) Range: 0-32 [...] 8-27 Glucose 93 mg/dL (Normal) Range: 65-99 00-Fix-20788:14 CBC, PLATELETS & AUT DIFF Comments: PATIENT WAS FASTINGPERFORMED BY: [facility] Tbvurg7914 [facility] [id number] (26936) Immature Grans (Abs) 0.0 {x10E3/uL} (Normal) Range: [...] 3.77-5.28 WBC 5.3 {x10E3/uL} (Normal) Range: 3.4-10.8 25-Wca-70672:14 LIPID PANEL (26605) Comments: PATIENT WAS FASTINGPERFORMED BY: [facility]Ehlkaf7779 [facility] [id number] LDL/HDL Ratio 4.7 {ratio} (Abnormal) Range: 0.0-3.2 Comments: LDL/HDL Ratio Men Women 1/2 Avg.Risk 1.0 1.5 Av g.Risk 3.6 3.2 2X Avg.Risk 6.2 5.0 3X Avg.Risk 8.0 6.1 LDL Cholesterol Calc 178 mg/dL (Abnormal) Range: 0-99 VLDL Cholesterol Rocky 79 mg/dL (Abnormal) Range: 5-40 HDL Cholesterol 38 mg/dL (Abnormal) Triglycerides 397 mg/dL (Abnormal) Range: 0-149 Cholesterol, Total 295 mg/dL (Abnormal) Range: 100-199 :14 CALCIFEDIOL (72437) Comments: PATIENT WAS FASTINGPERFORMED BY: Krikle Xxrexg8782 [facility] [id number] Vitamin D, 25-Hydroxy 75.8 ng/mL (Normal) Range: 30.0-100.0 Comments: Vitamin D deficiency has been defined by the [place] ofMedicine and an Endocrine Society practice guideline as alevel of serum 25-OH vitamin D less than 20 ng/mL (1,2).The Endocrine Society went on to further define vitamin Dinsufficiency as a level between 21 and 29 ng/mL (2).1. IOM ([place] of Medicine). 2010. Dietary reference intakes for calcium and D. Day [place]: The National Academies Press.2. Micky RAWLS, Yohana COBURN, eKnnedy PAL, et al. Evaluation, treatment, and prevention of vitamin D deficiency: an Endocrine Society clinical practice guideline. JCEM. 2010; 96(7):1911-30. 49-Guw-221480:52 CBC W/Diff, Automated Comments: [facility] [address] [place], [phone] Absolute Lymph 0.91 {X10_3/ul} (Normal) Range: 0.83-4.51 [...] 4.2-5.4 WBC 4.7 K/mm3 (Normal) Range: 4.4-11.0 85-Ghl-984140:52 Comprehensive Metabolic Profil Comments: [facility] [address] [place], [id number] GAP 6 (Normal) Range: 5-15 CO2 29.0 [...] A.D.A. criteria.Please note revised GLUCOSE reference range baykieqhn20/02/2018. 9-Tjz-376492:09 HgA1C , Office (78325) HgA1C , Office 5.6 % (Normal) Range: 4.6 - 7.1 :15 CBC W/Diff, Automated Comments: [facility] [address] [place], [place], [address] Absolute Lymph 0.70 {X10_3/ul} (Abnormal) Range: 0.83-4.51 [...] 4.2-5.4 WBC 3.5 K/mm3 (Abnormal) Range: 4.4-11.0 39-Pof-36729:15 Comprehensive Metabolic Profil Comments: [facility] [address] [place], [address] GAP 7 (Normal) Range: 5-15 CO2 29.0 mmol/L (Normal) Range: 21.0-32.0 CL 106 mmol/L (Normal) Range: 98-107 K 3.8 mmol/L (Normal) Range: 3.5-5.1 NA 142 mmol/L (Normal) Range: 136-145 T BILI 0.40 mg/dL (Normal) Range: 0.20-1.00 ALT 38 U/L (Normal) Range: 13-56 Comments: Please note revised ALT reference range gwdwfimyl90/28/2018. ALK P 74 U/L (Normal) Range: 45-117 [...] Comments: Please note revised GLUCOSE reference range izohoaitu45/02/2018. 79-Dqn-41194:44 VITAMIN B-12 (CYANOCOBALAMIN) Comments: PATIENT WAS FASTINGPERFORMED BY: [employer]6370 [facility] [id number] (99083) Vitamin B12 575 pg/mL (Normal) Range: 232-1245 25-Nel-37486:44 METABOLIC PANEL, COMPREHENSIVE Comments: PATIENT WAS FASTINGPERFORMED BY: [employer]6370 [facility] [id number] (70923) ALT (SGPT) 30 [iU]/L (Normal) Range: 0-32 [...] 8-27 Glucose 86 mg/dL (Normal) Range: 65-99 36-Snf-48115:44 CBC W/AUTO DIFF WBC (78888) Comments: PATIENT WAS FASTINGPERFORMED BY: [facility]Henry [facility]6370 [facility] [id number] Immature Grans (Abs) 0.0 {x10E3/uL} (Normal) Range: [...] 3.77-5.28 WBC 5.5 {x10E3/uL} (Normal) Range: 3.4-10.8 80-Tha-27405:44 LIPID PANEL (06449) Comments: PATIENT WAS FASTINGPERFORMED BY: [facility]Umkyjh3341 [facility] [id number] LDL/HDL Ratio 3.9 {ratio_units} (Abnormal) Range: 0.0-3.2 Comments: LDL/HDL Ratio Men Women 1/2 Avg.Risk 1.0 1.5 Av g.Risk 3.6 3.2 2X Avg.Risk 6.2 5.0 3X Avg.Risk 8.0 6.1 LDL Cholesterol Calc 177 mg/dL (Abnormal) Range: 0-99 VLDL Cholesterol Rocky 54 mg/dL (Abnormal) Range: 5-40 HDL Cholesterol 45 mg/dL (Normal) Triglycerides 271 mg/dL (Abnormal) Range: 0-149 Cholesterol, Total 276 mg/dL (Abnormal) Range: 100-199 06-Zlq-83730:44 CALCIFIDIOL (23963) VIT D 25 Comments: PATIENT WAS FASTINGPERFORMED BY: Realvu IncHenry Ford [facility] Hospital6370 [facility] [id number] Vitamin D, 25-Hydroxy 38.1 ng/mL (Normal) Range: 30.0-100.0 Comments: Vitamin D deficiency has been defined by the [place] ofMedicine and an Endocrine Society practice guideline as alevel of serum 25-OH vitamin D less than 20 ng/mL (1,2).The Endocrine Society went on to further define vitamin Dinsufficiency as a level between 21 and 29 ng/mL (2).1. IOM ([place] of Medicine). 2010. Dietary reference intakes for calcium and D. Day [place]: The National Academies Press.2. Micky MF, Yohana NC, Kennedy PAL, et al. Evaluation, treatment, and prevention of vitamin D deficiency: an Endocrine Society clinical practice guideline. JCEM. 2010; 96(7):1911-30. :51 HgA1C , Office (21325) HgA1C , Office 5.6 % (Normal) Range: 4.6 - 7.1 :53 CBC W/Diff, Automated Comments: [facility] [address] [place], [place], [address] Absolute Lymph 0.78 {X10_3/ul} (Abnormal) Range: 0.83-4.51 [...] Range: 4.4-11.0 :53 Comprehensive Metabolic Profil Comments: [facility] [address] [place], [address] GAP 8 (Normal) Range: 5-15 CO2 27.0 [...] 7-18 GLU 90 mg/dL (Normal) Range: 70-110 46-Gis-10656:48 LIPID PANEL (83321) Comments: PATIENT WAS FASTINGPERFORMED BY: CB [facility] Bxqeht7053 [facility] [id number] BY: BN [facility] [address] [id number] LDL/HDL Ratio 4.5 {ratio_units} (Abnormal) Range: 0.0-3.2 Comments: LDL/HDL Ratio Men Women 1/2 Avg.Risk 1.0 1.5 Av g.Risk 3.6 3.2 2X Avg.Risk 6.2 5.0 3X Avg.Risk 8.0 6.1 LDL Cholesterol Calc 211 mg/dL (Abnormal) Range: 0-99 VLDL Cholesterol Rocky 51 mg/dL (Abnormal) Range: 5-40 HDL Cholesterol 47 mg/dL (Normal) Triglycerides 253 mg/dL (Abnormal) Range: 0-149 Cholesterol, Total 309 mg/dL (Abnormal) Range: 100-199 :48 Vitamin D Hydroxy Comments: PATIENT WAS FASTINGPERFORMED BY: [employer] Hdukpi4445 [facility] [place] [id number] BY: Krikle[address] [id number] (05219) Vitamin D, 25-Hydroxy 68.0 ng/mL (Normal) Range: 30.0-100.0 Comments: Vitamin D deficiency has been defined by the [place] of[facility] and an Endocrine Society practice guideline as alevel of serum 25-OH vitamin D less than 20 ng/mL (1,2).The Endocrine Society went on to further define vitamin Dinsufficiency as a level between 21 and 29 ng/mL (2).1. IOM ([place] of [place]). 2010. Dietary reference intakes for calcium and D. Day [place]: The National Academies Press.2. Micky MF, Yohana COBURN, Kennedy PAL, et al. Evaluation, treatment, and prevention of vitamin D deficiency: an Endocrine Society clinical practice guideline. JCEM. 2010; 96(7):1911-30. :48 FERRITIN (90166) Comments: PATIENT WAS FASTINGPERFORMED BY: [employer] Jzywln3154 [facility] [place] [id number] BY: Krikle[address] [id number] Ferritin, Serum 20 ng/mL (Normal) Range: 15-150 :48 IRON BINDING CAPACITY Comments: PATIENT WAS FASTINGPERFORMED BY: [employer] Kvorgh4627 [address] [facility] [place] [id number] BY: Krikle[address] [id number] (TIBC) (87885) Iron Saturation 10 % (Abnormal) Range: 15-55 Iron, Serum 43 ug/dL (Normal) Range: 27-139 UIBC 376 ug/dL (Abnormal) Range: 118-369 Iron Bind.Cap.(TIBC) 419 ug/dL (Normal) Range: 250-450 43-Izc-55642:48 Methymalonic Acid, Serum Comments: PATIENT WAS FASTINGPERFORMED BY: [employer]70 [address] [facility] [id number] BY: Bonush Madixfclxo8830 [facility] [id number] (69287) Methylmalonic Acid, Serum 371 nmol/L (Normal) Range: 0-378 92-Mwj-60577:48 VITAMIN B-12 (CYANOCOBALAMIN) Comments: PATIENT WAS FASTINGPERFORMED BY: [employer]70 [facility] [id number] BY: [employer] Fnwflnpuct8836 [facility] [id number] (54510) Vitamin B12 511 pg/mL (Normal) Range: 211-946 Comments: Effective August 06, 2017 the reference interval for Vitamin B12 will be changing to: 232-1245 pg/mL. 07-Fmo-622985:27 Protein Electro, Random Comments: PATIENT NOT FASTINGPERFORMED BY: [employer]6370 [facility] [id number] BY: Krikle[address] [id number] Urine Please note: SPRCS (Normal) Comments: Protein electrophoresis scan will follow via computer, mail, orcourier delivery. M-Geraldo, % Not Observed % (Normal) Gamma Globulin, U 24.5 % (Normal) Beta Globulin, U 26.3 % (Normal) Bejlh-1-Aqzhjwom, U 17.3 % (Normal) Glowj-2-Obojvsag, U 7.0 % (Normal) Albumin, U 24.9 % (Normal) Protein,Total,Urine <4.0 mg/dL (Normal) Comments: Verified by repeat analysis 96-Hib-292912:27 Soluble Transferrin Comments: PATIENT NOT FASTINGPERFORMED BY: LabJJ [employer]ARMA Ebzsho9488 [facility] [id number] BY: [address] [id number] Receptor (07244) Soluble Transferrin Receptor 24.6 nmol/L (Normal) Range: 12.2-27.3 23-Txw-614166:27 WILLIAM TEST, DIRECT Comments: PATIENT NOT FASTINGPERFORMED BY: [facility] Pzkvjk7074 [address] [facility] [id number] BY: [address] [id number] (50876) William', Direct Negative (Normal) 27-Ixq-004290: FOLIC ACID SERUM (13094) Comments: PATIENT NOT FASTINGPERFORMED BY: LabJJ [employer]ARMA Lnebfo8787 [facility] [id number] BY: [address] [id number] Folate (Folic Acid), Serum >20.0 ng/mL (Normal) Comments: A serum folate concentration of less than 3.1 ng/mL isconsidered to represent clinical deficiency. 50-Svk-839051:27 Methymalonic Acid, Serum Comments: PATIENT NOT FASTINGPERFORMED BY: Kriklerp Tfdehj5351 [facility] [id number] BY: [address] [id number] (55120) Methylmalonic Acid, Serum 554 nmol/L (Abnormal) Range: 0-378 71-Nul-523415:27 VITAMIN B-12 Comments: PATIENT NOT FASTINGPERFORMED BY: [facility] Cdihyo0496 [facility] [id number] BY: [address] [id number] (CYANOCOBALAMIN) (28323) Vitamin B12 386 pg/mL (Normal) Range: 211-946 23-Qoj-037299:27 RETICULOCYTE COUNT MANUL Comments: PATIENT NOT FASTINGPERFORMED BY: [place] 0415370 [facility] [id number] BY: [address] [id number] (46370) Reticulocyte Count 1.4 % (Normal) Range: 0.6-2.6 74-Sxf-675680:27 LDH (LD) (LACTATE Comments: PATIENT NOT FASTINGPERFORMED BY: [place] 0415370 [facility] [id number] BY: [address] [id number] DEHYDROGENASE) (11165) LDH 202 [iU]/L (Normal) Range: 119-226 60-Jvh-490920:27 IRON BINDING CAPACITY Comments: PATIENT NOT FASTINGPERFORMED BY: [address] [id number] BY: [address] [id number] (TIBC) (42298) Iron Saturation 6 % (Abnormal) Range: 15-55 Iron, Serum 26 ug/dL (Abnormal) Range: 27-139 UIBC 394 ug/dL (Abnormal) Range: 118-369 Iron Bind.Cap.(TIBC) 420 ug/dL (Normal) Range: 250-450 22-Uer-557682:27 FERRITIN (32674) Comments: PATIENT NOT FASTINGPERFORMED BY: [place] 0415370 [facility] [id number] BY: [address] [id number] Ferritin, Serum 20 ng/mL (Normal) Range: 15-150 64-Buh-474876:27 CBC, PLATELETS & AUT DIFF Comments: PATIENT NOT FASTINGPERFORMED BY: [address] [id number] BY: [address] [id number] (42704) Immature Grans (Abs) 0.0 {x10E3/uL} (Normal) Range: [...] 3.77-5.28 WBC 5.1 {x10E3/uL} (Normal) Range: 3.4-10.8 73-Prt-268668:27 Serum Protein Comments: PATIENT NOT FASTINGPERFORMED BY: [facility] Lquwif8222 [facility] [id number] BY: [facility] [address] [id number] Electrophoresis (SPEP) (80580) Please note: SPRCS (Normal) Comments: Protein electrophoresis scan will follow via computer, mail, orcourier delivery. A/G Ratio 1.2 (Normal) Range: 0.7-1.7 Globulin, Total 3.3 g/dL (Normal) Range: 2.2-3.9 M-Geraldo Not Observed g/dL (Normal) Gamma Globulin 0.8 g/dL (Normal) Range: 0.4-1.8 Beta Globulin 1.3 g/dL (Normal) Range: 0.7-1.3 Rdjji-0-Hfqaqdfv 1.0 g/dL (Normal) Range: 0.4-1.0 Ikbhd-1-Getjlryc 0.2 g/dL (Normal) Range: 0.0-0.4 Albumin 3.8 g/dL (Normal) Range: 2.9-4.4 Protein, Total, Serum 7.1 g/dL (Normal) Range: 6.0-8.5 :58 CBC W/Diff, Automated Comments: [facility] [address] [place], [place], [address] Absolute Lymph 0.80 {X10_3/ul} (Abnormal) Range: 0.83-4.51 [...] 4.2-5.4 WBC 4.6 K/mm3 (Normal) Range: 4.4-11.0 :58 Comprehensive Metabolic Profil Comments: [facility] [address] [place], [place], [address](082) GAP 7 (Normal) Range: 5-15 CO2 30.0 [...] 70-110 :35 Basic Metabolic Profile (BMP) Comments: [facility] [address] [place], [place], [address] GAP 9 (Normal) Range: 5-15 CO2 28.0 [...] :35 CBC-Complete Blood Cnt No Diff Comments: [facility] [address] [place], [place], [address] MPV 9.6 fL (Normal) Range: 6.2-12.0 PLT [...] Range: 4.4-11.0 :35 Partial Thromboplast Time Comments: [facility] [address] [place], [place], [address] PTT 27.3 s (Normal) Range: 24.1-36.2 :35 Prothrombin Time w/INR Comments: [facility] [address] [place], [place], [address] INR 1.0 (Normal) PROTIME 12.7 s (Normal) Range: 11.7-14.9 60-Hly-799003:30 Urinalysis, Complete Comments: Order Date: 02/12/17How was Urine Obtained? CLEAN CATCHWooSelect [facility], Inc [address]poplafzzd[address] [place], [place], [address] MUCUS, URINE 0 SEEN {/hpf} (Normal) BACTERIA [...] CLARITY Sl. Cloudy (Normal) COLOR Yellow (Normal) 68-Qff-645521:45 Basic Metabolic Profile (BMP) Comments: [facility] [address] [place], [place], [address] GAP 10 (Normal) Range: 5-15 CO2 27.0 [...] 7-18 GLU 100 mg/dL (Normal) Range: 70-110 86-Muu-789611:45 CBC W/Diff, Automated Comments: [facility] [address] [place], [address] Absolute Lymph 0.94 {X10_3/ul} (Normal) Range: 0.83-4.51 [...] 4.2-5.4 WBC 7.3 K/mm3 (Normal) Range: 4.4-11.0 44-Vuz-367137:10 URINE MAHENDRA CULTURE-IDENTIFICATN Comments: PATIENT WAS FASTINGPERFORMED BY: Realvu IncHenry [facility] Hospital6370 [facility] [id number] (69002) Result 1 MUG (Normal) Comments: Mixed urogenital flora25,000-50,000 colony forming units per mL Urine Final report (Normal) Culture,Comprehensive 97-Quz-427277:10 URINALYSIS (95552) Comments: PATIENT WAS FASTINGPERFORMED BY: Real[employer] IncHenry [facility]6370 [facility] [id number] Microscopic Examination MICNIP (Normal) Comments: Microscopic not indicated and not performed. Nitrite, Urine Negative (Normal) Urobilinogen,Semi-Qn 0.2 mg/dL (Normal) Range: 0.2-1.0 Bilirubin Negative (Normal) Occult Blood Negative (Normal) Ketones Negative (Normal) Glucose Negative (Normal) Protein Trace (Normal) WBC Esterase Negative (Normal) Appearance Clear (Normal) Urine-Color Yellow (Normal) pH 7.0 (Normal) Range: 5.0-7.5 Specific Elkin 1.015 (Normal) Range: 1.005-1.030 14-Jam-517783:10 C-REACTIVE PROTEIN (56579) Comments: PATIENT WAS FASTINGPERFORMED BY: Real[facility] IncHenry [facility]6370 [facility] [id number] C-Reactive Protein, Quant 7.7 mg/L (Abnormal) Range: 0.0-4.9 39-Gsa-207610:10 Sed Rate Erythrocyte (38650) Comments: PATIENT WAS FASTINGPERFORMED BY: Real[employer] IncHenry [facility]6370 [facility] [id number] Sedimentation Rate-Westergren 34 mm/h (Normal) Range: 0-40 54-Gfp-237885:10 Metabolic Panel, Comprehensive Comments: PATIENT WAS FASTINGPERFORMED BY: Real[facility] IncHenry [facility]6370 [facility] [id number] (29177) ALT (SGPT) 13 [iU]/L (Normal) Range: 0-32 [...] Glucose, Serum 93 mg/dL (Normal) Range: 65-99 36-Cqw-341494:10 CBC with auto diff Comments: PATIENT WAS FASTINGPERFORMED BY: LabHenry [facility]6370 [facility] [id number] Information: SRC:KORINA (52592) Hematology Comments: Note: (Normal) Comments: Verified by [...] Range: 3.4-10.8 :43 CBC W/Diff, Automated Comments: [facility] Waqnmcuxvp3625 [facility] [place], [place], [address] Absolute Lymph 0.79 {X10_3/ul} (Abnormal) Range: 0.83-4.51 [...] Range: 4.4-11.0 :43 Comprehensive Metabolic Profil Comments: [facility] [address]it[address] [place], [address] GAP 7 (Normal) Range: 5-15 CO2 29.0 [...] 7-18 GLU 94 mg/dL (Normal) Range: 70-110 :10 LIPID PANEL (49053) Comments: PATIENT WAS FASTINGPERFORMED BY: [employer]6370 [facility] [id number] LDL/HDL Ratio 4.4 {ratio_units} (Abnormal) Range: 0.0-3.2 [...] degree relatives should be collected. J Clin Zmqvncd4973;5:133-140 LDL Cholesterol Calc 209 mg/dL (Abnormal) Range: 0-99 VLDL Cholesterol Rocky 57 mg/dL (Abnormal) Range: 5-40 HDL Cholesterol 48 mg/dL (Normal) Triglycerides 285 mg/dL (Abnormal) Range: 0-149 Cholesterol, Total 314 mg/dL (Abnormal) Range: 100-199 49-Dfi-20333:10 HEPATIC FUNCTION PANEL Comments: PATIENT WAS FASTINGPERFORMED BY: P[facility]Lmpbah1334 [facility] [id number] (73579) ALT (SGPT) 13 [iU]/L (Normal) Range: 0-32 AST (SGOT) 19 [iU]/L (Normal) Range: 0-40 Alkaline Phosphatase, S 75 [iU]/L (Normal) Range: 39-117 Bilirubin, Direct 0.08 mg/dL (Normal) Range: 0.00-0.40 Bilirubin, Total 0.2 mg/dL (Normal) Range: 0.0-1.2 Albumin, Serum 4.4 g/dL (Normal) Range: 3.5-4.8 Protein, Total, Serum 6.7 g/dL (Normal) Range: 6.0-8.5 :46 ATLHW-HWDHQIOTHUX-TVXLI (54614) Comments: PATIENT WAS FASTINGPERFORMED BY: LabCoCapital [facility])Bnmfor3085 [facility] [id number] AFP, Serum, Tumor Marker 5.5 ng/mL (Normal) Range: 0.0-8.3 Comments: Carmencita ECLIA methodology :28 HgA1C , Office (30420) HgA1C , Office 5.7 % (Normal) Range: 4.6 - 7.1 :46 CBC W/AUTO DIFF WBC (11955) Comments: PATIENT WAS FASTINGPERFORMED BY: [facility]CoCap[facility])Kagjwp2075 [facility] [id number] Immature Grans (Abs) 0.0 {x10E3/uL} (Normal) Range: [...] 3.77-5.28 WBC 4.4 {x10E3/uL} (Normal) Range: 3.4-10.8 09-Zze-021614:46 METABOLIC PANEL, COMPREHENSIVE Comments: PATIENT WAS FASTINGPERFORMED BY: [facility] Mimocw6978 [facility] [id number] (01550) ALT (SGPT) 15 [iU]/L (Normal) Range: 0-32 [...] 0 days - 7 days 9 - 9 - 26 8 days - 30 days 8 - 32 10 - 33 1 month - 6 months 11 - 57 11 - 54 7 mo nths - 1 year - - 71 2 years - 5 years [...] Glucose, Serum 95 mg/dL (Normal) Range: 65-99 05-Asb-312981:46 TSH (43413) Comments: PATIENT WAS FASTINGPERFORMED BY: Krikle Qikskg8449 [facility] [id number] TSH 1.750 {uIU/mL} (Normal) Range: 0.450-4.500 95-Aya-349326:46 LIPID PANEL (19386) Comments: PATIENT WAS FASTINGPERFORMED BY: Krikle Ucbwpb0430 [facility] [id number] LDL/HDL Ratio 4.7 {ratio_units} (Abnormal) Range: 0.0-3.2 [...] degree relatives should be collected. J Clin Gkgnllr3095;5:133-140 LDL Cholesterol Calc 201 mg/dL (Abnormal) Range: 0-99 VLDL Cholesterol Rocky 63 mg/dL (Abnormal) Range: 5-40 HDL Cholesterol 43 mg/dL (Normal) Triglycerides 316 mg/dL (Abnormal) Range: 0-149 Cholesterol, Total 307 mg/dL (Abnormal) Range: 100-199 41-Dhf-845820:46 CALCIFIDIOL (04766) VIT D 25 Comments: PATIENT WAS FASTINGPERFORMED BY: [facility]leCap[facility]Ftvnia3183 [facility] [id number] Vitamin D, 25-Hydroxy 38.5 ng/mL (Normal) Range: 30.0-100.0 Comments: Vitamin D deficiency has been defined by the [place] ofMedicine and an Endocrine Society practice guideline as alevel of serum 25-OH vitamin D less than 20 ng/mL (1,2).The Endocrine Society went on to further define vitamin Dinsufficiency as a level between 21 and 29 ng/mL (2).1. IOM ([place] of Medicine). 2010. Dietary reference intakes for calcium and D. Day [place]: The National Academies Press.2. Micky MF, Yohana COBURN, Kennedy PAL, et al. Evaluation, treatment, and prevention of vitamin D deficiency: an Endocrine Society clinical practice guideline. JCEM. 2010; 96(7):1911-30. 43-Ujm-178460:43 CBC W/Diff, Automated Comments: [facility] [address] [place], [place], [address] Absolute Lymph 1.03 {X10_3/ul} (Normal) Range: 0.83-4.51 [...] 4.2-5.4 WBC 5.1 K/mm3 (Normal) Range: 4.4-11.0 64-Qal-859699:43 Comprehensive Metabolic Profil Comments: [facility] [address] [place], [place], [address] GAP -4 (Abnormal) Range: 5-15 CO2 29.0 [...] 7-18 GLU 86 mg/dL (Normal) Range: 70-110 :30 Culture, Miscellaneous Comments: [facility] [address]xt[address]mkky[address] [place], [place], [address] CUM See Note (Normal) Comments: MOUTH AND TONGUE PLUS YEAST TONGUE GLOSSITIS DRY MOUTH Comments: MOUTH AND TONGUE/ PLUS YEASTMisc. CultureNo Yeast, Haemophilus, Streptococcus pneumoniae, beta-hemolytic Streptococcus or Staphyloco ccus aureus isolated. Gram StainGram Stain 2+ Epithelial cells 2+ Gram positive cocci :03 CBC W/Diff, Automated Comments: [facility] [address] [place], [place], [address] Absolute Lymph 0.88 {X10_3/ul} (Normal) Range: 0.83-4.51 [...] 4.2-5.4 WBC 5.0 K/mm3 (Normal) Range: 4.4-11.0 40-Hex-983202:03 Comprehensive Metabolic Profil Comments: [facility] [address]ftzl[address] [place], [place], [address] GAP 7 (Normal) Range: 5-15 CO2 29.0 [...] 7-18 GLU 83 mg/dL (Normal) Range: 70-110 71-Lih-53351:16 Vitamin D Hydroxy (09574) Comments: PATIENT WAS FASTINGPERFORMED BY: [facility]6370 [facility] [id number] Vitamin D, 25-Hydroxy 56.1 ng/mL (Normal) Range: 30.0-100.0 Comments: Vitamin D deficiency has been defined by the [place] ofMedicine and an Endocrine Society practice guideline as alevel of serum 25-OH vitamin D less than 20 ng/mL (1,2).The Endocrine Society went on to further define vitamin Dinsufficiency as a level between 21 and 29 ng/mL (2).1. IOM ([place] of Medicine). 2010. Dietary reference intakes for calcium and D. Day [place]: The National Academies Press.2. Micky RAWLS, Yohana COBURN, Kennedy PAL, et al. Evaluation, treatment, and prevention of vitamin D deficiency: an Endocrine Society clinical practice guideline. JCEM. 2010; 96(7):1911-30. :16 REXHU-ZNHSEEFHJRJ-ERCWI (63146) Comments: PATIENT WAS FASTINGPERFORMED BY: [employer]6370 [facility] [id number] AFP, Serum, Tumor Marker 5.3 ng/mL (Normal) Range: 0.0-8.3 Comments: Carmencita ECLIA methodology :16 METABOLIC PANEL, Comments: PATIENT WAS FASTINGPERFORMED BY: Krikle Dvengt8900 [facility] [id number] Information: [id number] COMPREHENSIVE (45494) ALT (SGPT) 14 [iU]/L (Normal) Range: 0-32 [...] Glucose, Serum 85 mg/dL (Normal) Range: 65-99 00-Pko-94297:16 LIPID PANEL (61365) Comments: PATIENT WAS FASTINGPERFORMED BY: [address] [id number]; non-emergent till apt with Dr. Perea LDL/HDL [...] Cholesterol, Total 294 mg/dL (Abnormal) Range: 100-199 1-Dlv-537233:21 ANTINUCLEAR ANTIBODIES DIRECT Comments: [facility] (refer to report for specific site)refer to report for address and phone number RENUKA-DIRECT Negative (Normal) Comments: Performed at: [address] [id number] Director: Sudheer Russell PhD, Phone: [phone] 9-Cxz-957315:21 CBC W/Diff, Automated Comments: [facility] [address] [place], [address] Absolute Lymph 1.13 {X10_3/ul} (Normal) Range: 0.83-4.51 [...] 4.2-5.4 WBC 5.0 K/mm3 (Normal) Range: 4.4-11.0 [id number] CCP IgG Antibodies Comments: [facility] (refer to report for specific site)refer to report for address and phone number ANTI-CCP [id number] {units} (Normal) Range: 0-19 Comments: Negative <20 Weak positive 20 - 39 Moderate positive 40 - 59 Strong positive >59 [id number] Comprehensive Metabolic Profil Comments: [facility] [address] [place], [place], [id number] GAP 7 (Normal) Range: 5-15 CO2 29.0 [...] 7-18 GLU 87 mg/dL (Normal) Range: 70-110 6-Tyn-417859:21 Hep B Surface Antibodies Comments: [facility] (refer to report for specific site)refer to report for address and phone number Hep B Cecille AB Non Reactive (Normal) Comments: Non Reactive: Inconsistent with immunity, less than 10 mIU/mL Reactive: Consistent with immunity, greater than 9.9 mIU/ mL 7-Kqs-658916:21 Hepatitis B Surface Ag Comments: [facility] (refer to report for specific site)refer to report for address and phone number HB SURF AG Negative (Normal) Comments: Performed at: CB - [facility] [address] [id number] Director: Sudheer Russell PhD, Phone: [phone] at: BN - [facility] [place] [id number] Director: Kirby Fitch MD, Phone: [phone] 6-Swj-506775:21 Hepatitis C Antibodies Comments: [facility] (refer to report for specific site)refer to report for address and phone number HEP C AB 0.2 {s/co_ratio} (Normal) Range: 0.0-0.9 Comments: Negative: < 0.8 Indeterminate: 0.8 - 0.9 Positive: > 0.9 The CDC recommends that a positive HCV antibody result be followed up with a HCV Nucleic Acid Amplification test (058275). 8-Tmr-902497:21 Rheumatoid Factor Comments: [facility] [address] [place], [address] RHEUMATOID FAC < 10.0 {IU/mL} (Normal) 61-Mew-01766:16 CBC with auto diff Comments: PATIENT WAS FASTINGPERFORMED BY: [facility]Ubrwyh0373 [facility] [id number] Information: [id number] (42830) Immature Grans (Abs) 0.0 {x10E3/uL} (Normal) Range: [...] 3.77-5.28 WBC 5.2 {x10E3/uL} (Normal) Range: 3.4-10.8 46-Lkh-15642:16 LIPID PANEL (20142) Comments: PATIENT WAS FASTINGPERFORMED BY: [facility]Htzjfc5624 [facility] [id number] LDL/HDL Ratio 5.7 {ratio_units} (Abnormal) Range: 0.0-3.2 [...] degree relatives should be collected. J Clin Wadgxbb1318;5:133-140 LDL Cholesterol Calc 223 mg/dL (Abnormal) Range: 0-99 VLDL Cholesterol Rocky 63 mg/dL (Abnormal) Range: 5-40 HDL Cholesterol 39 mg/dL (Abnormal) Comments: According to ATP-III Guidelines, HDL-C >59 mg/dL is considered anegative risk factor for CHD. Triglycerides 313 mg/dL (Abnormal) Range: 0-149 Cholesterol, Total 325 mg/dL (Abnormal) Range: 100-199 :16 METABOLIC PANEL, COMPREHENSIVE Comments: PATIENT WAS FASTINGPERFORMED BY: [facility]addle8 Oudtho6916 [facility] [id number] (40581) ALT (SGPT) 13 [iU]/L (Normal) Range: 0-32 [...] (Normal) Range: 65-99 :16 Vitamin D Hydroxy (56413) Comments: PATIENT WAS FASTINGPERFORMED BY: [facility]Fawtyp8835 [facility] [id number] Vitamin D, 25-Hydroxy 35.5 ng/mL (Normal) Range: 30.0-100.0 Comments: Vitamin D deficiency has been defined by the [place] [facility] and an Endocrine Society practice guideline as alevel of serum 25-OH vitamin D less than 20 ng/mL (1,2).The Endocrine Society went on to further define vitamin Dinsufficiency as a level between 21 and 29 ng/mL (2).1. IOM ([place] of Medicine). 2010. Dietary reference intakes for calcium and D. Day [place]: The National Academies Press.2. Micky MF, Yohana NC, Kennedy PAL, et al. Evaluation, treatment, and prevention of vitamin D deficiency: an Endocrine Society clinical practice guideline. JCEM. 2010; 96(7):1911-30. :22 Comprehensive Metabolic Profil Comments: [facility] [address] [place], [address] GAP 8 (Normal) Range: 5-15 CO2 29.0 [...] 7-18 GLU 96 mg/dL (Normal) Range: 70-110 44-Avo-15532:22 Lipase Comments: [facility] [address] [facility] [address] [place], [place], [address] LIPASE 583 U/L (Abnormal) Range: 73-393 :22 Lipid Profile Comments: [facility] [address] [facility] [address] [place], [place], [address] VLDL 55 mg/dL (Abnormal) Range: 5-40 LDL [...] 200-240 mg/dL Borderline >240 mg/dL High Risk :22 Vitamin D,25 Hydroxy Comments: [facility] [address] [place], [address] Vitamin D 25-OH 37.0 ng/mL (Normal) Comments: Vitamin D 25(OH) Status Range Deficiency <20 ng/mL (50nmol/L) Insuffciency 20 - 30 ng/mL (50 - 75 nmol/L) Sufficiency 30 - 100 ng/mL (75 - 250 nmol/L) Toxicity >100 ng/mL (>250 nmol/L) 9-Urx-850796:10 Culture, Nose Comments: [facility] [address] [place], [address] CUN See Note (Normal) Comments: Gram StainGram Stain 1+ White Blood Cells Rare Red Blood Cells No organisms seen Nasoph. CultNo Haemophilus, Streptococcus pneumoniae, beta-hemolytic Streptococcus or Staphylococcus aureus isolated. : EGD (PICK SITE) See Note (Normal) Comments: [facility] [address] [place], [address] 00 Comments: Patient: BRANDIE KUO : 1945 (70/F) Acct Num: [id number] Phys: Rylan Bird MD Unit Num: [id number] Loc: EN Specimen: [id number] Received: 06/16/1549 Spec Type: EGD B IOPSY TISSUES TISSUES: COMMENT A - The results of immunohistochemistry for Helicobacter pylori will be reportedseparately ([id number]). GROSS DESCRIPTION A - Received is one [...] one cassette. / AM: 06/16/15 TC:3 CPT: 27499 x4 HEADER OPERATION: EGD and colonoscopy with [...] biopsy: Melanosis coli. AM: 06/17/15 Signed [facility] 06/18/15 <signature on file> : IMMUNOHISTOCHEMISTRY See Note (Normal) Comments: [facility] Lhq[address]argu[address] [facility] [place], [address] 00 Comments: Patient: BRANDIE KUO : 1945 (70/F) Acct Num: [id number] Phys: Pelon MONROE,Rylan Unit Num: [id number] Loc: EN Specimen: [id number] Received: 06/18/15 - 1004 Spec Type: IMMU NO TISSUES TISSUES: SPECIMEN INFORMATION: Tissue Source: Gastric antrum, biopsy Clinical Info: Reflux, epigastric pain Specimen Number: [id number] CPT code: 48958 METHODOLO GY: Deparaffinized sections of prefer/formalin-fixed tissue or PAP/DQ stained slides are incubated with monoclonal/polyclonal antibodies/oligonucleotide probes. Localization is made via biotin free immunoperoxidase method. Appropriate controls are performed and reacted as expected. Results on target cell population are indicated in the following table: RESULTS: ANTIBODY / CLONE RESULT H Pylori (polyclonal) negative These tests were developed and their performance characteristics determined by [facility]. They may not have been cleared or approved by the U.S. Food and Drug Administration. The FDA has determined that such clearance or approval is not necessary. INTERPRETATION: Gastric antrum, biopsy: Negative for H elicobacter pylori organisms. SJ:shaan 06/18/15 PHYSICIAN AND INSTITUTION [place] [address] Signed Bobby Yadav 06/18/15 <signature on file> 53-Fqy-98154:59 Urinalysis, Office (05940) UA - LEUKOCYTE ESTERASE Trace (Normal) UA - NITRITE Negative (Normal) URINE UROBILINGN MIKI TIMED 2 mg/dL (Normal) UA - PROTEIN Trace mg/dL (Normal) UA - PH 8.0 (Normal) UA - BLOOD Negative (Normal) UA - SPECIFIC GRAVITY 1.020 (Normal) UA - KETONES Small mg/dL (Normal) UA - BILIRUBIN Small (Normal) UA - GLUCOSE Negative (Normal) 73-Buh-30614:34 URINE MAHENDRA CULTURE-IDENTIFICATN Comments: PATIENT NOT FASTINGPERFORMED BY: [facility] Sxsviz0621 [facility] [id number] Information: [id number] (75658) Result 1 BETAGB (Abnormal) Comments: Beta hemolytic [...] per mL Urine Final report (Abnormal) Culture,Comprehensive 3-Kxc-966691:44 URINE MAHENDRA CULTURE-MIKI COL Comments: PATIENT NOT FASTINGPERFORMED BY: JAYDE [facility] Zxqild1198 Danni [facility] [id number] Information: SRC:URT [id number] COUNT (84836) Result 2 BETAGB (Abnormal) Comments: Beta hemolytic [...] primarily for treating urinary tract infections. (CLSI, [id number],2009) Urine Final report (Abnormal) Culture,Comprehensive 9-Umk-841355:12 Urinalysis, Office (35931) UA - LEUKOCYTE ESTERASE Negative (Normal) UA - NITRITE Negative (Normal) URINE UROBILINGN MIKI TIMED Normal mg/dL (Normal) UA - PROTEIN Negative mg/dL (Normal) UA - PH 7.0 (Normal) UA - BLOOD Negative (Normal) UA - SPECIFIC GRAVITY 1.020 (Normal) UA - KETONES Negative mg/dL (Normal) UA - BILIRUBIN Negative (Normal) UA - GLUCOSE Negative (Normal) :26 CBC W/AUTO DIFF WBC Comments: PATIENT WAS FASTINGPERFORMED BY: K[employer]le [employer] Razo [facility] [id number] Information: [id number] (75608) Immature Grans (Abs) 0.0 {x10E3/uL} (Normal) Range: [...] (Normal) Range: 3.4-10.8 :26 Vitamin D Hydroxy (84901) Comments: PATIENT WAS FASTINGPERFORMED BY: KrikleZuni HospitalThgejr7325 [facility] [id number] Vitamin D, 25-Hydroxy 36.5 ng/mL (Normal) Range: 30.0-100.0 Comments: Vitamin D deficiency has been defined by the [place] of[place]icine and an Endocrine Society practice guideline as alevel of serum 25-OH vitamin D less than 20 ng/mL (1,2).The Endocrine Society went on to further define vitamin Dinsufficiency as a level between 21 and 29 ng/mL (2).1. IOM ([place] of Medicine). 2010. Dietary reference intakes for calcium and D. Day [place]: The National Academies Press.2. Micky MF, Yohana COBURN, Kennedy PAL, et al. Evaluation, treatment, and prevention of vitamin D deficiency: an Endocrine Society clinical practice guideline. JCEM. 2010; 96(7):1911-30. :26 METABOLIC PANEL, COMPREHENSIVE Comments: PATIENT WAS FASTINGPERFORMED BY: [facility]Ylcqki4836 [facility] [id number] (16578) ALT (SGPT) 13 [iU]/L (Normal) Range: 0-32 [...] Glucose, Serum 85 mg/dL (Normal) Range: 65-99 :26 LIPID PANEL (05124) Comments: PATIENT WAS FASTINGPERFORMED BY: [facility]Ckjnok7945 [facility] [id number] LDL/HDL Ratio 5.8 {ratio_units} (Abnormal) Range: 0.0-3.2 [...] Total 348 mg/dL (Abnormal) Range: 100-199 :26 [id number]-JDYXTMUIKFJ-UGKAD (11937) Comments: PATIENT WAS FASTINGPERFORMED BY: [facility]Qbhugd0697 [facility] [id number] AFP, Serum, Tumor Marker 5.8 ng/mL (Normal) Range: 0.0-8.3 Comments: Carmencita ECLIA methodology :26 LIPASE (95126) Comments: PATIENT WAS FASTINGPERFORMED BY: [facility]Uwpazs7616 [facility] [id number] Lipase, Serum 117 U/L (Abnormal) Range: 0-59 :11 Comp. Metabolic Panel (14) Comments: PATIENT NOT FASTINGPERFORMED BY: [facility]Uoznic4423 [facility] [id number] Information: [id number] ALT (SGPT) 11 [iU]/L (Normal) Range: 0-32 [...] Glucose, Serum 89 mg/dL (Normal) Range: 65-99 01-Feb-20159:11 Lipid Panel With LDL/HDL Comments: PATIENT NOT FASTINGPERFORMED BY: [facility]Fymleg9128 [facility] [id number]; will review at 02/09 appt Ratio LDL/HDL [...] ng/mL (Abnormal) Comments: PATIENT NOT FASTINGPERFORMED BY: [place] [address]370 [facility] [id number] :11 Range: 30.0-100.0 Comments: Vitamin D deficiency has been defined by the [place] ofMedicine and an Endocrine Society practice guideline as alevel of serum 25-OH vitamin D less than 20 ng/mL (1,2).The Endocrine Society went on to further define vitamin Dinsufficiency as a level between 21 and 29 ng/mL (2).1. IOM ([place] of Medicine). 2010. Dietary reference intakes for calcium and D. Day [place]: The National Academies Press.2. Micky MF, Yohana NC, Kennedy PAL, et al. Evaluation, treatment, and prevention of vitamin D deficiency: an Endocrine Society clinical practice guideline. JCEM. 2010; 96(7):1911-30. :37 LIPASE (16209) Comments: PATIENT NOT FASTINGPERFORMED BY: [place] 0415370 [facility] [id number] Information: [id number] Lipase, Serum 99 U/L (Abnormal) Range: 0-59 :48 Lipase (81759) Comments: PATIENT WAS FASTINGPERFORMED BY: [place] 0415370 [facility] [id number] Information: [id number] Lipase, Serum 110 U/L (Abnormal) Range: 0-59 :20 Basic Metabolic Profile (BMP) Comments: Test performed at:[facility] [address] [place] [address] GAP 8 (Normal) Range: 5-15 CO2 26.0 [...] 7-18 GLU 96 mg/dL (Normal) Range: 70-110 05-Sep-20145:20 CBC W/Diff, Automated Comments: Test performed at:[facility] [address]jkmcx[address] [place], [place] [id number] Absolute Lymph 0.64 {X10_3/ul} (Abnormal) Range: 0.83-4.51 [...] Range: 4.4-11.0 :20 Lipase Comments: Test performed at:[facility] [address] [place] [address] LIPASE 377 U/L (Abnormal) Range: 70-290 :50 CBCD ALC 0.80 {X10_3/ul} (Abnormal) Range: 0.83-4.51 [...] 4.2-5.4 WBC 3.6 K/mm3 (Abnormal) Range: 4.4-11.0 :50 CMP GAP 6 (Normal) Range: 5-15 CO2 [...] (Normal) Range: 70-110 :50 Vitamin D Hydroxy (83706) Comments: PATIENT WAS FASTINGPERFORMED BY: [facility]Sktxdo2618 [facility] [id number] Vitamin D, 25-Hydroxy 35.7 ng/mL (Normal) Range: 30.0-100.0 Comments: Vitamin D deficiency has been defined by the [place] [facility] and an Endocrine Society practice guideline as alevel of serum 25-OH vitamin D less than 20 ng/mL (1,2).The Endocrine Society went on to further define vitamin Dinsufficiency as a level between 21 and 29 ng/mL (2).1. IOM ([place] of Medicine). 2010. Dietary reference intakes for calcium and D. Day [place]: The National Academies Press.2. Micky MF, Yohana NC, Kennedy PAL, et al. Evaluation, treatment, and prevention of vitamin D deficiency: an Endocrine Society clinical practice guideline. JCEM. 2010; 96(7):1911-30. :50 LIPID PANEL (58898) Comments: PATIENT WAS FASTINGPERFORMED BY: [facility]6370 [facility] [id number] Information: [id number],2ND ORDER LDL/HDL Ratio 4.0 {ratio_units} (Abnormal) Range: [...] degree relatives should be collected. J Clin Nqkuyfn1104;5:133-140 LDL Cholesterol Calc 195 mg/dL (Abnormal) Range: 0-99 VLDL Cholesterol Rocky 32 mg/dL (Normal) Range: 5-40 HDL Cholesterol 49 mg/dL (Normal) Comments: According to ATP-III Guidelines, HDL-C >59 mg/dL is considered anegative risk factor for CHD. Triglycerides 160 mg/dL (Abnormal) Range: 0-149 Cholesterol, Total 276 mg/dL (Abnormal) Range: 100-199 :50 LZTMJ-QFWKPFATDGR-HRANU (33865) Comments: PATIENT WAS FASTINGPERFORMED BY: [facility]6370 [facility] [id number] AFP, Serum, Tumor Marker 6.3 ng/mL (Normal) Range: 0.0-8.3 Comments: Carmencita ECLIA methodology :50 PTT (Activated Partial Comments: PATIENT WAS FASTINGPERFORMED BY: [facility]6370 [facility] [id number] Thromboplastin Time) (83795) aPTT 24 {sec} (Normal) Range: 24-33 Comments: This test has not been validated for monitoring unfractionated heparintherapy. aPTT-based therapeutic ranges for unfractionated heparintherapy have not been established. For general guidelines onHeparin monitoring, refer to the [facility] Directory of Services. :50 PT (Prothrobim Time) (20501) Comments: PATIENT WAS FASTINGPERFORMED BY: [facility]6370 [facility] [id number] Prothrombin Time 10.3 {sec} (Normal) Range: 9.1-12.0 INR 1.0 (Normal) Range: 0.8-1.2 Comments: Reference interval is for non-anticoagulated patients. . Suggested INR therapeutic range for Vitamin K anta gonist therapy: Standard Dose (moderate intensity therapeutic range): 2.0 - 3.0 Higher intensity therapeutic range 2.5 - 3.5 33-Awy-54116:19 CBC WITH MANUAL DIFF Comments: PATIENT WAS FASTINGPERFORMED BY: [facility]6370 [facility] [id number] Information: [id number] (24881) Immature Grans (Abs) 0.0 {x10E3/uL} (Normal) Range: [...] 3.77-5.28 WBC 4.5 {x10E3/uL} (Normal) Range: 3.4-10.8 61-Ljv-45774:19 METABOLIC PANEL, COMPREHENSIVE Comments: PATIENT WAS FASTINGPERFORMED BY: [facility]Quoybm8491 [facility] [id number] (10194) ALT (SGPT) 10 [iU]/L (Normal) Range: 0-32 [...] (Normal) Range: 65-99 :19 Vitamin D Hydroxy (89285) Comments: PATIENT WAS FASTINGPERFORMED BY: [employer] [facility] [id number] Vitamin D, 25-Hydroxy 42.1 ng/mL (Normal) Range: 30.0-100.0 Comments: Vitamin D deficiency has been defined by the [place] [facility] and an Endocrine Society practice guideline as alevel of serum 25-OH vitamin D less than 20 ng/mL (1,2).The Endocrine Society went on to further define vitamin Dinsufficiency as a level between 21 and 29 ng/mL (2).1. IOM ([place] of [place]). 2010. Dietary reference intakes for calcium and D. Day [place]: The National Academies Press.2. Micky MF, Yohana NC, Kenendy PAL, et al. Evaluation, treatment, and prevention of vitamin D deficiency: an Endocrine Society clinical practice guideline. JCEM. 2010; 96(7):1911-30. :19 LIPID PANEL (88450) Comments: PATIENT WAS FASTINGPERFORMED BY: [facility] Xbmbbz6407 [facility] [id number] LDL/HDL Ratio 2.4 {ratio_units} (Normal) Range: 0.0-3.2 LDL Cholesterol Calc 126 mg/dL (Abnormal) Range: 0-99 VLDL Cholesterol Rocky 36 mg/dL (Normal) Range: 5-40 HDL Cholesterol 53 mg/dL (Normal) Comments: According to ATP-III Guidelines, HDL-C >59 mg/dL is considered anegative risk factor for CHD. Triglycerides 178 mg/dL (Abnormal) Range: 0-149 Cholesterol, Total 215 mg/dL (Abnormal) Range: 100-199 :41 T4, FREE (THYROXINE) (02909) Comments: PATIENT WAS FASTINGPERFORMED BY: [facility]Jmrrfl8326 [facility] [id number] T4,Free(Direct) 1.00 ng/dL (Normal) Range: 0.82-1.77 :41 T3, FREE (TRIDOTHYRONINE) (36815) Comments: PATIENT WAS FASTINGPERFORMED BY: [facility]Qtxqvf5116 [facility] [id number] Triiodothyronine,Free,Serum 3.0 pg/mL (Normal) Range: 2.0-4.4 :41 TSH (81567) Comments: PATIENT WAS FASTINGPERFORMED BY: Krikle Udctuv7746 [facility] [id number] TSH 1.740 {uIU/mL} (Normal) Range: 0.450-4.500 :41 LIPID PANEL (59673) Comments: PATIENT WAS FASTINGPERFORMED BY: [facility]Ervdja0986 [facility] [id number] Information: [id number],NO DRAW FEE 2ND ORD ER; see message [...] Total 191 mg/dL (Normal) Range: 100-199 :19 RGBQN-NSSZOWGIGEJ-OIGTP (10732) Comments: PATIENT WAS FASTINGPERFORMED BY: [facility]6370 [facility] [id number] AFP, Serum, Tumor Marker 5.2 ng/mL (Normal) Range: 0.0-8.3 Comments: Carmencita ECLIA methodology :19 PTT (Activated Partial Comments: PATIENT WAS FASTINGPERFORMED BY: [facility]6370 [facility] [id number] Thromboplastin Time) (76494) aPTT 25 {sec} (Normal) Range: 24-33 Comments: This test has not been validated for monitoring unfractionated heparintherapy. aPTT-based therapeutic ranges for unfractionated heparintherapy have not been established. For general guidelines onHeparin monitoring, refer to the [facility] Directory of Services. :19 PT (Prothrobim Time) (39336) Comments: PATIENT WAS FASTINGPERFORMED BY: [facility]6370 [facility] [id number] Prothrombin Time 11.0 {sec} (Normal) Range: 9.1-12.0 INR 1.1 (Normal) Range: 0.8-1.2 Comments: Reference interval is for non-anticoagulated patients. . Suggested INR therapeutic range for Vitamin K anta gonist therapy: Standard Dose (moderate intensity therapeutic range): 2.0 - 3.0 Higher intensity therapeutic range 2.5 - 3.5 :19 CBC WITH MANUAL DIFF Comments: PATIENT WAS FASTINGPERFORMED BY: [facility]6370 [facility] [id number] Information: [id number] (49831) Immature Grans (Abs) 0.0 {x10E3/uL} (Normal) Range: [...] 3.77-5.28 WBC 3.7 {x10E3/uL} (Normal) Range: 3.4-10.8 85-Xgd-20242:19 METABOLIC PANEL, COMPREHENSIVE Comments: PATIENT WAS FASTINGPERFORMED BY: [facility]Yyvylm7391 [facility] [id number] (16083) ALT (SGPT) 10 [iU]/L (Normal) Range: 0-32 [...] (Normal) Range: 65-99 :19 Vitamin D Hydroxy (29371) Comments: PATIENT WAS FASTINGPERFORMED BY: [employer])[facility] [id number] Vitamin D, 25-Hydroxy 36.2 ng/mL (Normal) Range: 30.0-100.0 Comments: Vitamin D deficiency has been defined by the [place] ofMedicine and an Endocrine Society practice guideline as alevel of serum 25-OH vitamin D less than 20 ng/mL (1,2).The Endocrine Society went on to further define vitamin Dinsufficiency as a level between 21 and 29 ng/mL (2).1. IOM ([place] of Medicine). 2010. Dietary reference intakes for calcium and D. Day [place]: The National Academies Press.2. Micky MF, Yohana NC, Kennedy PAL, et al. Evaluation, treatment, and prevention of vitamin D deficiency: an Endocrine Society clinical practice guideline. JCEM. 2010; 96(7):1911-30. :55 URINE MAHENDRA CULTURE (MIKI Comments: PATIENT NOT FASTINGPERFORMED BY: Ping4 Wynwnp2042 [facility] [id number] Information: SRC:UR [id number] COL COUNT) (82805) Result 1 BETAGB (Normal) Comments: Beta hemolytic [...] Streptococcus pyogenes (group A). (CLSI 2011)Mixed urogenital flora10,000-25,000 colony forming units per mL Urine Final report (Normal) Culture,Comprehensive 08-Sep-20139:43 Urinalysis, Office (98633) UA - BILIRUBIN Negative (Normal) UA - BLOOD Negative (Normal) UA - GLUCOSE Negative (Normal) UA - KETONES Negative mg/dL (Normal) UA - LEUKOCYTE ESTERASE Small (Normal) UA - NITRITE Negative (Normal) UA - PH 7.0 (Normal) UA - PROTEIN Negative mg/dL (Normal) UA - SPECIFIC GRAVITY 1.025 (Normal) URINE UROBILINGN MIKI TIMED Normal mg/dL (Normal) :13 LIPID PANEL (43797) Comments: PATIENT WAS FASTINGPERFORMED BY: [facility] [id number] LDL Cholesterol Calc 93 mg/dL (Normal) Range: 0-99 LDL/HDL Ratio 1.7 {ratio_units} (Normal) Range: 0.0-3.2 VLDL Cholesterol Rocky 32 mg/dL (Normal) Range: 5-40 HDL Cholesterol 54 mg/dL (Normal) Comments: According to ATP-III Guidelines, HDL-C >59 mg/dL is considered anegative risk factor for CHD. Cholesterol, Total 179 mg/dL (Normal) Range: 100-199 Triglycerides 161 mg/dL (Abnormal) Range: 0-149 :13 CBC WITH MANUAL DIFF Comments: PATIENT WAS FASTINGPERFORMED BY: [employer]6370 [facility]azo [facility] [id number] Information: [id number] (45684) Immature Grans (Abs) 0.0 {x10E3/uL} (Normal) Range: [...] 3.77-5.28 WBC 4.1 {x10E3/uL} (Normal) Range: 3.4-10.8 82-Bsg-19523:13 METABOLIC PANEL, COMPREHENSIVE Comments: PATIENT WAS FASTINGPERFORMED BY: [facility]Dfalij8501 [facility] [id number] (43260) ALT (SGPT) 16 [iU]/L (Normal) Range: 0-32 [...] (Normal) Range: 65-99 :13 Vitamin D Hydroxy (30468) Comments: PATIENT WAS FASTINGPERFORMED BY: [facility]6370 [facility] [id number] Vitamin D, 25-Hydroxy 40.1 ng/mL (Normal) Range: 30.0-100.0 Comments: Vitamin D deficiency has been defined by the [place] of[facility] and an Endocrine Society practice guideline as alevel of serum 25-OH vitamin D less than 20 ng/mL (1,2).The Endocrine Society went on to further define vitamin Dinsufficiency as a level between 21 and 29 ng/mL (2).1. IOM ([place] of Medicine). 2010. Dietary reference intakes for calcium and D. Day [place]: The National Academies Press.2. Micky MF, Yohana NC, Kennedy PAL, et al. Evaluation, treatment, and prevention of vitamin D deficiency: an Endocrine Society clinical practice guideline. JCEM. 2010; 96(7):1911-30. :33 ABDOMEN COMPLETE Radiology Report See Note Comments: [...] Signed:Milly PhamApril 24, 2013 at 2:03:02 PM [id number] Signed RU/RU If you are the referring physician and would like to consult with theradiologist who provided this interpretation, please conta mikhail Sheehan M.D. at [phone]. If this radiologist is unavailable, youwillbe directed to another radiologist to assist. If you are a patient with a question regarding this report, pleasecontac tyour referring physician directly. Professional Interpretation Provided By: [employer], Phone , These documents contain legally protected [...] Montoya on 04/24/131427 Sign by: Carson Montoya 32-Ghn-82528:33 TRANSVAGINAL NON- Radiology See Note Comments: CLINICAL:Female, [...] Montoya M.D.April 24, 2013 at 2:03:00 PM [id number] Signed RU/RU If you are the referring physician a nd would like to consult with theradiologist who provided this interpretation, please contact Joshua Sheehan at [phone]. If this radiologist is unavailable, youellyllbe directed to another radi ologist to assist. If you are a patient with a question regarding this report, pleasecontactyour referring physician directly. Professional Interpretation Provided By: [employer], Phone , These documents contain legally protected [...] on 04/24/13 1436 Sign by: Carson Montoya 30-Mma-703649:01 URINE MAHENDRA CULTURE-IDENTIFICATN Comments: PATIENT NOT FASTINGPERFORMED BY: [facility] Ukrisp3168 [facility] [id number] Information: [id number] (48360) Result 1 Enterococcus faecalis Comments: 3,000 Colonies/mLNote: this isolate is vancomycin-susceptible.This information is provided for epidemiologic purposesonly: vancomycin is not among the antibioticsrecommended for therapy of urinary tract (Normal) infectionscaused by Enterococcus.For Enterococcus species, cephalosporins, aminoglycosides (except forhigh-level resistance screening), clindamycin, and trimethoprim-sulfamethoxazole are not effective clinically. Fluoroquinolones areused primarily for treating urinary tract infections. (CLSI, M507-[id number],2009) Result 2 BETAGB (Normal) Comments: Beta hemolytic [...] STetracycline RVancomycin S Urine Final report (Normal) CultureIsh 04-Ffe-829691:55 Urinalysis, Office (66012) UA - LEUKOCYTE ESTERASE Small (Normal) UA [...] with prior study dated December 31ndFebruary 2010. FIN DINGS:The breast composition is composed of scattered [...] Carroll M.D.January 01, 2013 at 8:13:49 AM [id number] Signed GP/GP If you are the referring physician and would like to consult with theradiologist who provided this interpretation, please contact Joshua Brunson at [phone]. If this radiologist is unavailable, youwill be directed to [facility] radiologist to assist. If you are a [...] the return or destructionofthese documents. Dictated on 01/01/13 0657 by Ana MONROE,Nimcoranscribed on 01/01/13 0833 by ITS IMPORTSign by Zbigniew Carroll MD on 01/01/13833 Sign by: Zbigniew Carroll MD 21-Mlu-71537:18 ABDOMEN COMPLETE Radiology Report See Note (Normal) [...] Carroll M.D.December 20, 2012 at 12:53:26 PM [id number] Signed GP/GP If you are the referring physician and would like to consult with theradiologist who provided this interpretation, please contact Alyssa parikh M.D. at [phone]. If this radiologist is unavailable, youwill be directed to another radiologist to assist. If you are a patient with a question regarding this report, pleasecontactyour referring physician directly. Professional Interpretation Provided By: [employer], Phone , These documents contain legally protected [...] Dictated on 12/20/12 0922 by Ana MONROE,Bob Kingnscribed on 12/20/12 1255 by ITS IMPORTSign by Zbigniew Carroll MD on 12/20/12 1256 Sign by: Zbigniew Carroll MD 60-Ixz-72701:34 HEPATIC FUNCTION PANEL Comments: PATIENT WAS FASTINGPERFORMED BY: [facility]6370 [facility] [id number] (52834) ALT (SGPT) 28 [iU]/L (Normal) Range: 0-32 AST (SGOT) 39 [iU]/L (Normal) Range: 0-40 Alkaline Phosphatase, S 99 [iU]/L (Normal) Range: 47-112 Bilirubin, Direct 0.17 mg/dL (Normal) Range: 0.00-0.40 Bilirubin, Total 0.7 mg/dL (Normal) Range: 0.0-1.2 Albumin, Serum 4.6 g/dL (Normal) Range: 3.6-4.8 Protein, Total, Serum 7.2 g/dL (Normal) Range: 6.0-8.5 :34 LIPID PANEL (40568) Comments: PATIENT WAS FASTINGPERFORMED BY: [facility]Tcdlum1591 [facility] [id number] Information: [id number] LDL/HDL Ratio 1.7 {ratio_units} (Normal) Range: 0.0-3.2 HDL Cholesterol 62 mg/dL (Normal) Comments: According to ATP-III Guidelines, HDL-C >59 mg/dL is considered anegative risk factor for CHD. LDL Cholesterol Calc 104 mg/dL (Abnormal) Range: 0-99 VLDL Cholesterol Rocky 32 mg/dL (Normal) Range: 5-40 Triglycerides 158 mg/dL (Abnormal) Range: 0-149 Cholesterol, Total 198 mg/dL (Normal) Range: 100-199 :34 SGNTZ-LRHERULFDKN-PSHUR (64517) Comments: PATIENT WAS FASTINGPERFORMED BY: [employer] Bpczks0467 [facility] [id number] AFP, Serum, Tumor Marker 5.3 ng/mL (Normal) Range: 0.0-8.3 Comments: Carmencita ECLIA methodology :34 PTT (Activated Partial Comments: PATIENT WAS FASTINGPERFORMED BY: [facility]Jtcdic0121 [facility] [id number] Thromboplastin Time) (41769) aPTT 27 {sec} (Normal) Range: 24-33 Comments: This test has not been validated for monitoring unfractionated heparintherapy. aPTT-based therapeutic ranges for unfractionated heparintherapy have not been established. For general guidelines onHeparin monitoring, refer to the [facility] Directory of Services. :34 PT (Prothrobim Time) (39846) Comments: PATIENT WAS FASTINGPERFORMED BY: [facility]6370 [facility] [id number] INR 1.0 (Normal) Range: 0.8-1.2 Comments: Reference interval is for non-anticoagulated patients. . Suggested INR therapeutic range for Vitamin K anta gonist therapy: Standard Dose (moderate intensity therapeutic range): 2.0 - 3.0 Higher intensity therapeutic range 2.5 - 3.5 Prothrombin Time 10.3 {sec} (Normal) Range: 9.1-12.0 :28 METABOLIC PANEL, COMPREHENSIVE Comments: PATIENT WAS FASTINGPERFORMED BY: [facility]6370 [facility] [id number] (38006) ALT (SGPT) 11 [iU]/L (Normal) Range: 0-32 [...] Glucose, Serum 86 mg/dL (Normal) Range: 65-99 :28 CBC WITH MANUAL DIFF Comments: PATIENT WAS FASTINGPERFORMED BY: [facility]6370 [facility] [id number] Information: [id number] (66677) Immature Grans (Abs) 0.0 {x10E3/uL} (Normal) Range: [...] 3.77-5.28 WBC 4.6 {x10E3/uL} (Normal) Range: 4.0-10.5 :28 Vitamin D Hydroxy (82869) Comments: PATIENT WAS FASTINGPERFORMED BY: Ping4 Abdnmw3818 [facility] [id number] Vitamin D, 25-Hydroxy 48.4 ng/mL (Normal) Range: 30.0-100.0 Comments: Vitamin D deficiency has been defined by the [place] ofMedicine and an Endocrine Society practice guideline as alevel of serum 25-OH vitamin D less than 20 ng/mL (1,2).The Endocrine Society went on to further define vitamin Dinsufficiency as a level between 21 and 29 ng/mL (2).1. IOM ([place] of Medicine). 2010. Dietary reference intakes for calcium and D. [place]: The National Academies Press.2. Micky MF, Yohana COBURN, Kennedy PAL, et al. Evaluation, treatment, and prevention of vitamin D deficiency: an Endocrine Society clinical practice guideline. JCEM. 2010; 96(7):1911-30. :28 LIPID PANEL (31782) Comments: PATIENT WAS FASTINGPERFORMED BY: [employer]6370 [facility] [id number] LDL/HDL Ratio 2.2 {ratio_units} (Normal) Range: 0.0-3.2 [...] METABOLIC PANEL, Comments: PATIENT NOT FASTINGPERFORMED BY: [employer] Jbxisn3948 [facility] [id number] Information: [id number] COMPREHENSIVE (08406) Alkaline Phosphatase, S 83 [iU]/L (Normal) Range: [...] Serum 90 mg/dL (Normal) Range: 65-99 :07 EMIFR-PTYYOFAZNRF-FKSNA (27782) Comments: PATIENT NOT FASTINGPERFORMED BY: [employer]6370 [facility] [id number] AFP, Serum, Tumor Marker 5.0 ng/mL (Normal) Range: 0.0-8.3 Comments: Carmencita ECLIA methodology :07 PTT (Activated Partial Comments: PATIENT NOT FASTINGPERFORMED BY: [employer] Bojijs9730 [facility] [id number] Thromboplastin Time) (04113) aPTT 25 {sec} (Normal) Range: 24-33 Comments: This test has not been validated for monitoring unfractionated heparintherapy. aPTT-based therapeutic ranges for unfractionated heparintherapy have not been established. For general guidelines onHeparin monitoring, refer to the [facility] Directory of Services. :07 PT (Prothrobim Time) (90727) Comments: PATIENT NOT FASTINGPERFORMED BY: [facility]6370 [facility] [id number] Prothrombin Time 10.8 {sec} (Normal) Range: 9.1-12.0 INR 1.0 (Normal) Range: 0.8-1.2 Comments: Reference interval is for non-anticoagulated patients. . Suggested INR therapeutic range for Vitamin K anta gonist therapy: Standard Dose (moderate intensity therapeutic range): 2.0 - 3.0 Higher intensity therapeutic range 2.5 - 3.5 :07 Vitamin D Hydroxy (02168) Comments: PATIENT NOT FASTINGPERFORMED BY: [facility]6370 [facility] [id number] Vitamin D, 25-Hydroxy 51.6 ng/mL (Normal) Range: 30.0-100.0 Comments: Vitamin D deficiency has been defined by the [place] of[place]icine and an Endocrine Society practice guideline as alevel of serum 25-OH vitamin D less than 20 ng/mL (1,2).The Endocrine Society went on to further define vitamin Dinsufficiency as a level between 21 and 29 ng/mL (2).1. IOM ([place] of [place]). 2010. Dietary reference intakes for calcium and D. [place]: The National Academies Press.2. Micky MF, Yohana NC, Kennedy PAL, et al. Evaluation, treatment, and prevention of vitamin D deficiency: an Endocrine Society clinical practice guideline. JCEM. 2010; 96(7):1911-30. :08 Vitamin D Hydroxy (34363) Comments: PATIENT WAS FASTINGPERFORMED BY: [facility]6370 [facility] [id number] Vitamin D, 25-Hydroxy 87.1 ng/mL (Normal) Range: 30.0-100.0 Comments: Vitamin D deficiency has been defined by the [place] of[place]icine and an Endocrine Society practice guideline as alevel of serum 25-OH vitamin D less than 20 ng/mL (1,2).The Endocrine Society went on to further define vitamin Dinsufficiency as a level between 21 and 29 ng/mL (2).1. IOM ([place]). 2010. Dietary reference intakes for calcium and D. [place]: The National Academies Press.2. Micky MF, Yohana COBURN, Kennedy PAL, et al. Evaluation, treatment, and prevention of vitamin D deficiency: an Endocrine Society clinical practice guideline. JCEM. 2010; 96(7):1911-30. :08 LIPID PANEL (94202) Comments: PATIENT WAS FASTINGPERFORMED BY: [facility]Ditgiv5291 [facility] [id number] LDL/HDL Ratio 5.1 {ratio_units} (Abnormal) Range: 0.0-3.2 LDL Cholesterol Calc 216 mg/dL (Abnormal) Range: 0-99 Comments: Please note reference interval changePossible Familial Hypercholesterolemia. FH should be suspected whenfasting LDL cholesterol is above 189 mg/dL or non- HDL cholesterolis above 219 mg/dL. A family history of high cholesterol and heartdisease in 1st degree relatives should be collected. J Clin Hbpnqgd9137;5:133-140 VLDL Cholesterol Rocky 47 mg/dL (Abnormal) Range: 5-40 HDL Cholesterol 42 mg/dL (Normal) Comments: According to ATP-III Guidelines, HDL-C >59 mg/dL is considered anegative risk factor for CHD. Triglycerides 237 mg/dL (Abnormal) Range: 0-149 Comments: Please note reference interval change Cholesterol, Total 305 mg/dL (Abnormal) Range: 100-199 Comments: Please note reference interval change :08 METABOLIC PANEL, Comments: PATIENT WAS FASTINGPERFORMED BY: [facility]Esvmfz9161 [facility] [id number] Information: [id number] COMPREHENSIVE (78556) ALT (SGPT) 14 [iU]/L (Normal) Range: 0-40 [...] 95 mg/dL (Normal) Range: 65-99 :25 TSH (90525) Comments: PATIENT NOT FASTINGPERFORMED BY: [facility]Yrjlkq4986 [facility] [id number] Information: [id number] TSH 2.830 {uIU/mL} (Normal) Range: 0.450-4.500 :25 SED RATE ERYTHROCYTE (01045) Comments: PATIENT NOT FASTINGPERFORMED BY: [facility]Henry [facility]6370 [facility] [id number] Sedimentation Rate-Westergren 14 mm/h (Normal) Range: 0-40 :25 C-REACTIVE PROTEIN (65233) Comments: PATIENT NOT FASTINGPERFORMED BY: [facility] IncHenry [facility]6370 [facility] [id number] C-Reactive Protein, Quant 1.9 mg/L (Normal) Range: 0.0-4.9 :25 RHEUMATOID FACTOR-QUANT (18628) Comments: PATIENT NOT FASTINGPERFORMED BY: [facility] Cmfpiu3231 [facility] [id number] RA Latex Turbid. 8.6 {IU/mL} (Normal) Range: 0.0-13.9 06-Feb-20129:25 RENUKA (ANTINUCLEAR ANTIBODY) Comments: PATIENT NOT FASTINGPERFORMED BY: CB [facility] Abqpxi4369 [facility] [id number] (02151) RENUKA Direct Negative (Normal) :25 Creatine Kinase Total (09593) Comments: PATIENT NOT FASTINGPERFORMED BY: CB [facility] Qgulyq2320 [facility] [id number] Creatine Kinase,Total,Serum 127 U/L (Normal) Range: 24-173 06-Xow-726593:38 BILAT SCRN DIGITAL & CAD Radiology Report See Note (Normal) Comments: MAMMOGRAPHY - BILATERAL SCREENING REASON FOR EXAM: Female, 66 years old. Routine annual screeningexamination. PERTINENT HISTORY: Prior left excisional biopsy. TECHNIQUE: Digital exami [facility] [place]. Med iolateral oblique (MLO) andcraniocaudad (CC) views of both breasts were obtained. CAD: CAD wasperformed on this study. COMPARISON: Comparison is made with prior studies dated October 31nd 2009. FINDINGS:The breast composition is heterogeneously dense. There [...] lectronically Signed GP/GP Professional Interpretation Provided By: [facility], , To consult with a radiologist regarding this report, please call our 35I0fyhayjv line @ Dictated on 01/01/12 1145 by Ana MONROE,FordriAngelranscribed on 01/01/12 1301 by ITS IMPORTSign by Zbigniew Carroll MD on 01/01/12 1302 Sign by: Zbigniew Carroll MD :48 Vitamin D Hydroxy (67290) Comments: PATIENT WAS FASTINGPERFORMED BY: [employer]4 Vzjwdb5911 [facility] [id number] Vitamin D, 25-Hydroxy 64.5 ng/mL (Normal) Range: 30.0-100.0 Comments: Vitamin D deficiency has been defined by the [place] of[place]icine and an Endocrine Society practice guideline as alevel of serum 25-OH vitamin D less than 20 ng/mL (1,2).The Endocrine Society went on to further define vitamin Dinsufficiency as a level between 21 and 29 ng/mL (2).1. IOM ([place]). 2010. Dietary reference intakes for calcium and D. Day [place]: The National Academies Press.2. Micky MF, Yohana NC, Kennedy PAL, et al. Evaluation, treatment, and prevention of vitamin D deficiency: an Endocrine Society clinical practice guideline. JCEM. 2010; 96(7):1911-30. :48 CBC WITH MANUAL DIFF Comments: PATIENT WAS FASTINGPERFORMED BY: [facility] Iigvkz5874 [facility] [id number] Information: [id number] (20662) Immature Grans (Abs) 0.0 {x10E3/uL} (Normal) Range: [...] 3.80-5.10 WBC 4.2 {x10E3/uL} (Normal) Range: 4.0-10.5 85-Tvu-08207:48 METABOLIC PANEL, COMPREHENSIVE Comments: PATIENT WAS FASTINGPERFORMED BY: [facility]Imdeik0100 [facility] [id number] (24963) ALT (SGPT) 16 [iU]/L (Normal) Range: 0-40 [...] Glucose, Serum 80 mg/dL (Normal) Range: 65-99 31-Sip-85001:48 LIPID PANEL (45071) Comments: PATIENT WAS FASTINGPERFORMED BY: [facility] Dxymqt1657 [facility] [id number] LDL Cholesterol Calc 188 mg/dL (Abnormal) Range: 0-99 LDL/HDL Ratio 4.4 {ratio_units} (Abnormal) Range: 0.0-3.2 VLDL Cholesterol Rocky 52 mg/dL (Abnormal) Range: 5-40 HDL Cholesterol 43 mg/dL (Normal) Comments: According to ATP-III Guidelines, HDL-C >59 mg/dL is considered anegative risk factor for CHD. Triglycerides 262 mg/dL (Abnormal) Range: 0-149 Cholesterol, Total 283 mg/dL (Abnormal) Range: 100-199 :07 DEXA BONE DENSITY STUDY (HP) Radiology Report [...] Foundation [email or web address] Dictated on 07/13/11 0912 by Nimco Carroll MDranscribed on 07/13/11 1330 by ITS IMPORTSign by Zbigniew Carroll MD on 07/13/11 1331 Sign by: Zbigniew Carroll MD 38-Mwf-47018:44 Vitamin D Hydroxy (15181) Comments: PATIENT WAS FASTINGPERFORMED BY: [facility]6370 [facility] [id number] Vitamin D, 25-Hydroxy 32.1 ng/mL (Normal) Range: 30.0-100.0 Comments: Vitamin D deficiency has been defined by the [place] of[place]icine and an Endocrine Society practice guideline as alevel of serum 25-OH vitamin D less than 20 ng/mL (1,2).The Endocrine Society went on to further define vitamin Dinsufficiency as a level between 21 and 29 ng/mL (2).1. IOM ([place] of [place]). 2011. Dietary reference intakes for calcium and D. Day [place]: The National Academies Press.2. Micky MF, Yohana COBURN, Kennedy PAL, et al. Evaluation, treatment, and prevention of vitamin D deficiency: an Endocrine Society clinical practice guideline. JCEM. 2010; 96(7):1911-30. :44 LIPID PANEL (96504) Comments: PATIENT WAS FASTINGPERFORMED BY: [employer]6370 [facility] [id number] LDL/HDL Ratio 2.2 {ratio_units} (Normal) Range: 0.0-3.2 LDL Cholesterol Calc 105 mg/dL (Abnormal) Range: 0-99 HDL Cholesterol 48 mg/dL (Normal) Comments: According to ATP-III Guidelines, HDL-C >59 mg/dL is considered anegative risk factor for CHD. VLDL Cholesterol Rocky 30 mg/dL (Normal) Range: 5-40 Triglycerides 148 mg/dL (Normal) Range: 0-149 Cholesterol, Total 183 mg/dL (Normal) Range: 100-199 :44 METABOLIC PANEL, COMPREHENSIVE Comments: PATIENT WAS FASTINGPERFORMED BY: [facility]Uxpygz6757 [facility] [id number] (44549) ALT (SGPT) 18 [iU]/L (Normal) Range: 0-40 [...] (LACTATE DEHYDROGENASE) Comments: PATIENT WAS FASTINGPERFORMED BY: [employer]email [place] [id number] (43744) LDH 175 [iU]/L (Normal) Range: 0-214 :44 FOLIC ACID SERUM (69202) Comments: PATIENT WAS FASTINGPERFORMED BY: [employer]6370 [facility] [employer] [facility] [id number] Folate (Folic Acid), Serum >19.9 ng/mL (Normal) Comments: Indeterminate: 2.2 - 3.0 Deficient: <2.2 :44 VITAMIN B-12 (CYANOCOBALAMIN) Comments: PATIENT WAS FASTINGPERFORMED BY: [employer]70 [facility] [employer] [facility] [id number] (57146) Vitamin B12 397 pg/mL (Normal) Range: 211-946 :44 CBC WITH MANUAL DIFF Comments: PATIENT WAS FASTINGPERFORMED BY: [employer]70 [facility] [employer] [facility])in [place] [id number] Information: [id number], [id number] (12921) Immature Grans (Abs) 0.0 {x10E3/uL} (Normal) Range: [...] 3.80-5.10 WBC 4.4 {x10E3/uL} (Normal) Range: 4.0-10.5 35-Wet-172682:58 RIBS,UNI,MIN 3V,W/PA CHEST Radiology Report See Note [...] right ribs. Dictated on 06/21/11 1309 by SALAS ANTOINE MDSTranscribed on 06/22/11720 by ITS IMPORTSign by LEVAR ANTOINE MD on 06/22/11721 Sign by: LEVAR ANTOINE MD C difficile Toxins Negative (Normal) Comments: PERFORMED BY: [facility] [id number] 4:58 A+B, EIA Occult Blood, Fecal, Negative (Normal) Comments: PERFORMED BY: [facility] IncSaint [facility] Fuqgzn9[address] [place] [address] [id number] 4:58 IA :58 Ova + Parasite Exam Comments: PERFORMED BY: [facility] IncHenry [facility] [place] [address] [id number] Result 1 NOCP (Normal) Comments: No ova, cysts, or parasites seen. Ova + Parasite Exam Final report (Normal) Comments: These results were obtained using wet preparation(s) and trichromestained smear. This test does not include testing for Cryptosporidiumparvum, Cyclospora, or Microsporidia. :58 Stool Culture Comments: PERFORMED BY: [facility] IncSaint [facility] V[address]gt[address] [place] [address] [id number] Information: SRC:ST E coli Shiga Toxin EIA Negative (Normal) Result 1 NCI (Normal) Comments: No Campylobacter species isolated. Campylobacter Culture Final report (Normal) Result 1 NSS (Normal) Comments: No Salmonella or Shigella recovered. Salmonella/Shigella Screen Final report (Normal) :58 White Blood Cells (WBC), Comments: PERFORMED BY: [facility] IncSaint [facility] Iovcmt7383 [facility] [id number] Stool Result 1 NWBC (Normal) Comments: No white blood cells seen. White Blood Cells (WBC), Final report (Normal) Comments: Reference Range: None Seen Stool 68-Gny-019052:07 VITAMIN B-12 (CYANOCOBALAMIN) Comments: PATIENT NOT FASTINGPERFORMED BY: [facility]le[facility]Ghooxi3821 [facility] [id number] (91838) Vitamin B12 393 pg/mL (Normal) Range: 211-946 08-Mzh-484963:07 IRON BINDING CAPACITY Comments: PATIENT NOT FASTINGPERFORMED BY: [facility] IncHenry [facility]6370 [facility] [id number] Information: [id number] (TIBC) (89610) Iron Saturation 17 % (Normal) Range: 15-55 Iron, Serum 68 ug/dL (Normal) Range: 35-155 UIBC 335 ug/dL (Normal) Range: 150-375 Iron Bind.Cap.(TIBC) 403 ug/dL (Normal) Range: 250-450 03-Bvu-888818:07 FERRITIN (71208) Comments: PATIENT NOT FASTINGPERFORMED BY: [facility]Ljznbg4676 [facility] [id number] Ferritin, Serum 42 ng/mL (Normal) Range: 13-150 80-Wgs-641959:29 BRAIN/HEAD WITHOUT CONTRAST Radiology Report See Note [...] is seen. Dictated on 04/19/11 1235 by Nimco Carroll MDranscribed on 04/19/11 1609 by ITS IMPORTSign by Zbigniew Jackson on 04/19/11 1610 Sign by: Zbigniew Carroll MD 06-Jun-20118:32 CBC WITH MANUAL DIFF Comments: PATIENT WAS FASTINGPERFORMED BY: [facility] Kuirmm0053 [facility] [id number] Information: ADD [id number] AND DRAW FEE 99 9316 (06603) Immature Grans (Abs) 0.0 {x10E3/uL} (Normal) Range: [...] PANEL, COMPREHENSIVE Comments: PATIENT WAS FASTINGPERFORMED BY: [employer]70 [facility] [id number] (79346) ALT (SGPT) 30 [iU]/L (Normal) Range: 0-40 [...] mg/dL (Normal) Range: 65-99 :32 LIPID PANEL (79278) Comments: PATIENT WAS FASTINGPERFORMED BY: [employer]70 [facility] [id number] LDL/HDL Ratio 2.6 {ratio_units} (Normal) Range: 0.0-3.2 LDL Cholesterol Calc 118 mg/dL (Abnormal) Range: 0-99 VLDL Cholesterol Rocky 28 mg/dL (Normal) Range: 5-40 HDL Cholesterol 46 mg/dL (Normal) Comments: According to ATP-III Guidelines, HDL-C >59 mg/dL is considered anegative risk factor for CHD. Triglycerides 141 mg/dL (Normal) Range: 0-149 Cholesterol, Total 192 mg/dL (Normal) Range: 100-199 :32 TSH (17305) Comments: PATIENT WAS FASTINGPERFORMED BY: [employer]6370 [employer] [facility] [id number] TSH 3.120 {uIU/mL} (Normal) Range: 0.450-4.500 :32 Vitamin D Hydroxy (87201) Comments: PATIENT WAS FASTINGPERFORMED BY: [employer]6370 [facility]urg[facility] HospitalHAULblin [place] [id number] Vitamin D, 25-Hydroxy 57.0 ng/mL (Normal) Range: 32.0-100.0 Comments: Effective July 24, 2011 Vitamin D, 25-Hydroxy reference intervals will be changing to 30-100. .Recent studies consider the lower li geovanny of 32.0 ng/mL to be athreshold for optimal health.Sandhu BW. J Nutr. 2004;135(2):317-. :38 Vitamin D Hydroxy (22820) Comments: PATIENT WAS FASTINGPERFORMED BY: Krikle Yseemu8479 [facility] [place] [id number] Vitamin D, 25-Hydroxy 59.4 ng/mL (Normal) Range: 32.0-100.0 Comments: Recent studies consider the lower limit of 32.0 ng/mL to be athreshold for optimal health.Sandhu BW. J Nutr. 2004;135(2):317-22. :38 METABOLIC PANEL, Comments: PATIENT WAS FASTINGPERFORMED BY: Krikle Etlunt0785 [facility] [place] [id number] Information: [id number] CC:[id number] COMPREHENSIVE (99353) ALT (SGPT) 14 [iU]/L (Normal) Range: 0-40 [...] mg/dL (Normal) Range: 65-99 :38 LIPID PANEL (15191) Comments: PATIENT WAS FASTINGPERFORMED BY: [facility][id number] [facility] [id number]; 02/14/11 LDL Cholesterol Calc 120 mg/dL (Abnormal) Range: 0-99 LDL/HDL Ratio 2.5 {ratio_units} (Normal) Range: 0.0-3.2 HDL Cholesterol 48 mg/dL (Normal) Comments: According to ATP-III Guidelines, HDL-C >59 mg/dL is considered anegative risk factor for CHD. VLDL Cholesterol Rocky 31 mg/dL (Normal) Range: 5-40 Cholesterol, Total 199 mg/dL (Normal) Range: 100-199 Triglycerides 155 mg/dL (Abnormal) Range: 0-149 97-Vsf-763432:44 CBC With Differential/Platelet Comments: A courtesy copy of this report has been sent [phone].PATIENT WAS FASTINGPERFORMED BY: [facility] Hcfvvn5821 [facility] [id number] Information: [id number] Immature Grans (Abs) 0.0 {x10E3/uL} (Normal) Range: [...] 3.80-5.10 WBC 4.6 {x10E3/uL} (Normal) Range: 4.0-10.5 86-Kug-953858:44 Comp. Metabolic Panel (14) Comments: A courtesy copy of this report has been sent [phone].PATIENT WAS FASTINGPERFORMED BY: [facility]Uazizq3367 [facility] [id number] ALT (SGPT) 16 [iU]/L (Normal) Range: 0-40 [...] Glucose, Serum 91 mg/dL (Normal) Range: 65-99 12-Eja-054068:44 Lipid Panel With LDL/HDL Comments: A courtesy copy of this report has been sent [phone].PATIENT WAS FASTINGPERFORMED BY: [facility][id number] [facility] [id number] Ratio LDL Cholesterol Calc 215 mg/dL (Abnormal) [...] copy of this report has been sent [phone].PATIENT WAS FASTINGPERFORMED BY: [facility]Qjgfju2016 [facility] [id number] 1:44 Range: 32.0-100.0 Comments: Recent studies consider the lower limit of 32.0 ng/mL to be athreshold for optimal health.Edson WRIGHT. J Nutr. 2004;135(2):317-22. 83-Rhk-09627:56 BILAT SCRN DIGITAL & CAD Radiology Report See Note (Normal) Comments: Exam Number: [id number] AMMOGRAPHY - BILATERAL SCREENING INDICATION:Routine annual screening [...] attaching a ResultCode to this exam. ADDENDUM: [id number] HPBI/MDS Reported By: CLEVELAND CHAND M.D. 15-Qll-20372:26 Metabolic Panel, Comments: PATIENT WAS FASTINGPERFORMED BY: [facility]Ymydgg1914 [facility] [id number] Information: [id number] Comprehensive (79556) ALT (SGPT) 19 [iU]/L (Normal) Range: 0-40 [...] 91 mg/dL (Normal) Range: 65-99 :26 TSH (58678) Comments: PATIENT WAS FASTINGPERFORMED BY: [facility] Zmbwus5555 [facility] [place] [id number] TSH 3.450 {uIU/mL} (Normal) Range: 0.450-4.500 :26 Vitamin D Hydroxy (28675) Comments: PATIENT WAS FASTINGPERFORMED BY: [facility]Place [facility] Egfxyb0951 [facility] [id number] Vitamin D, 25-Hydroxy 61.8 ng/mL (Normal) Range: 32.0-100.0 Comments: Recent studies consider the lower limit of 32.0 ng/mL to be athreshold for optimal health.Edson WRIGHT. J Nutr. 2004;135(2):317-22. :26 Lipid Panel (16341) Comments: PATIENT WAS FASTINGPERFORMED BY: ZendyPlace Lab[facility] PHARMArp Hwcopw0096 [facility] [id number] Cholesterol, Total 234 mg/dL (Abnormal) Range: 100-199 [...] PANEL, Comments: PATIENT WAS FASTINGPERFORMED BY: [facility] Jctqkb6553 [facility] [id number] Information: [id number] COMPREHENSIVE (11630) A/G Ratio 1.7 (Normal) Range: 1.1-2.5 Alkaline [...] (Normal) Range: 65-99 :40 HEPATIC FUNCTION PANEL (49490) Comments: PATIENT WAS FASTINGPERFORMED BY: [facility][id number] [facility] [id number] Bilirubin, Direct 0.10 mg/dL (Normal) Range: 0.00-0.40 :40 LIPID PANEL (07245) Comments: PATIENT WAS FASTINGPERFORMED BY: [facility]Dbftwz4669 [facility] [id number] LDL Cholesterol Calc 121 mg/dL (Abnormal) Range: 0-99 LDL/HDL Ratio 2.5 {ratio_units} (Normal) Range: 0.0-3.2 VLDL Cholesterol Rocky 44 mg/dL (Abnormal) Range: 5-40 HDL Cholesterol 49 mg/dL (Normal) Comments: According to ATP-III Guidelines, HDL-C >59 mg/dL is considered anegative risk factor for CHD. Triglycerides 220 mg/dL (Abnormal) Range: 0-149 Cholesterol, Total 214 mg/dL (Abnormal) Range: 100-199 :40 Vitamin D Hydroxy (94612) Comments: PATIENT WAS FASTINGPERFORMED BY: [facility]Iluyvc2797 [facility] [id number] Vitamin D, 25-Hydroxy 57.9 ng/mL (Normal) Range: 32.0-100.0 Comments: Recent studies consider the lower limit of 32.0 ng/mL to be athreshold for optimal health.Edson WRIGHT. J Nutr. 2004;135(2):317-22. :22 Comp. Metabolic Panel (14) Comments: PATIENT WAS FASTINGPERFORMED BY: [facility]Yeusmb0948 [facility] [id number] ALT (SGPT) 14 [iU]/L (Normal) Range: 0-40 [...] Panel (7) Comments: PATIENT WAS FASTINGPERFORMED BY: [employer]70 [employer] [id number] Bilirubin, Direct 0.10 mg/dL (Normal) Range: 0.00-0.40 :22 Lipid Panel With LDL/HDL Comments: PATIENT WAS FASTINGPERFORMED BY: [employer] [facility] [id number] Ratio LDL Cholesterol Calc 158 mg/dL (Abnormal) [...] ng/mL (Normal) Comments: PATIENT WAS FASTINGPERFORMED BY: Sandman D&RAt[facility] [id number] :22 Range: 32.0-100.0 Comments: Recent studies consider the lower limit of 32.0 ng/mL to be athreshold for optimal health.Edson WRIGHT. J Nutr. 2004;135(2):317-22. 06-Jul-20098:40 BILAT SCRN DIGITAL & CAD Radiology Report See Note (Normal) Comments: Exam Number: [id number] DIGITAL BILATERAL MAMMOGRAM Digital oblique and craniocaudal [...] mammograms werealso examined with computer-aided detection software ([employer], [employer].). Reported By: ZBIGNIEW CARROLL :39 DEXA BONE DENSITY STUDY (HP) Radiology Report See Note (Normal) Comments: Exam Number: [id number] BONE DENSITOMETRY HISTORYOsteopenia. TECHNIQUE Bone densitometry of the lumbar spine and both hips is now beingperformed. The best criteria for evaluation of osteoporosis is theT-value, which represents the comparison of the patient's bone mass gorge expected peak bone mass. For most patients, the mean T-value of W7dyiumpr L4 is used to evaluate the lumbar spine. To evalua te the hip,the lower T-value of the femoral neck or total hip is used. FINDINGSIn this patient, the mean T-value of L1 through L4 is -1.2 which is inthe range of osteopenia. Bone mineral density is pia sured at 3.1%greater than in 1997 and 9% greater than in 2006. Digital [...] CLEVELAND CHAND M.D. :25 Vitamin D Hydroxy (85869) Comments: PATIENT NOT FASTINGPERFORMED BY: [employer] [employer] [employer] [place] [id number] Vitamin D, 25-Hydroxy 39.8 ng/mL (Normal) Range: 32.0-100.0 Comments: Recent studies consider the lower limit of 32.0 ng/mL to be athreshold for optimal health.Edson WRIGHT. J Nutr. 2004;135(2):317-22. :25 HEPATIC FUNCTION PANEL Comments: PATIENT NOT FASTINGClinical Information: ADD DRAW FEE 145106 AND J0 8809 PERFORMED BY: Sand[facility]&R[facility] [id number] (02433) Albumin, Serum 4.1 g/dL (Normal) Range: 3.6-4.8 Alkaline Phosphatase, S 78 [iU]/L (Normal) Range: 25-165 ALT (SGPT) 14 [iU]/L (Normal) Range: 0-40 AST (SGOT) 24 [iU]/L (Normal) Range: 0-40 Bilirubin, Direct 0.08 mg/dL (Normal) Range: 0.00-0.40 Bilirubin, Total 0.4 mg/dL (Normal) Range: 0.1-1.2 Protein, Total, Serum 6.8 g/dL (Normal) Range: 6.0-8.5 :25 LIPID PANEL (19381) Comments: PATIENT NOT FASTINGPERFORMED BY: Sand[facility]RAt[facility] [id number] Cholesterol, Total 307 mg/dL (Abnormal) Range: 100-199 HDL Cholesterol 45 mg/dL (Normal) Comments: According to ATP-III Guidelines, HDL-C >59 mg/dL is considered anegative risk factor for CHD. LDL Cholesterol Calc 224 mg/dL (Abnormal) Range: 0-99 LDL/HDL Ratio 5.0 {ratio_units} (Abnormal) Range: 0.0-3.2 Triglycerides 190 mg/dL (Abnormal) Range: 0-149 VLDL Cholesterol Rocky 38 mg/dL (Normal) Range: 5-40 86-Wjt-849266:13 METABOLIC PANEL, COMPREHENSIVE Comments: PATIENT WAS FASTINGClinical Information: ADD DRAW FEE AND [id number] PERFORMED BY: [facility]Ocrwhp2373 [facility] [id number] (23834) A/G Ratio 1.6 (Normal) Range: 1.1-2.5 Albumin, [...] Sodium, Serum 145 mmol/L (Normal) Range: 135-145 85-Agp-066959:13 TSH (64644) Comments: PATIENT WAS FASTINGPERFORMED BY: Ping4 [employer] [facility] [id number] TSH 2.300 {uIU/mL} (Normal) Range: 0.450-4.500 90-Dgc-545213:13 HEPATIC FUNCTION PANEL Comments: PATIENT WAS FASTINGPERFORMED BY: [employer] [facility] [id number] (89687) Bilirubin, Direct 0.11 mg/dL (Normal) Range: 0.00-0.40 84-Cmi-383639:13 LIPID PANEL (82506) Comments: PATIENT WAS FASTINGPERFORMED BY: Ping4 [address] [place] [address] [id number] Cholesterol, Total 303 mg/dL (Abnormal) Range: 100-199 HDL Cholesterol 54 mg/dL (Normal) Comments: According to ATP-III Guidelines, HDL-C >59 mg/dL is considered anegative risk factor for CHD. LDL Cholesterol Calc 218 mg/dL (Abnormal) Range: 0-99 LDL/HDL Ratio 4.0 {ratio_units} (Abnormal) Range: 0.0-3.2 Triglycerides 157 mg/dL (Abnormal) Range: 0-149 VLDL Cholesterol Rocky 31 mg/dL (Normal) Range: 5-40 39-Sqs-67975:17 HEPATIC FUNCTION PANEL Comments: PATIENT WAS FASTINGClinical Information: ADD DRAW FEE 230341 ADD J 77112 PERFORMED BY: Ping[address] [id number] (00201) Albumin, Serum 4.3 g/dL (Normal) Range: 3.6-4.8 Alkaline Phosphatase, S 75 [iU]/L (Normal) Range: 25-165 ALT (SGPT) 18 [iU]/L (Normal) Range: 0-40 AST (SGOT) 32 [iU]/L (Normal) Range: 0-40 Bilirubin, Direct 0.13 mg/dL (Normal) Range: 0.00-0.40 Bilirubin, Total 0.6 mg/dL (Normal) Range: 0.1-1.2 Protein, Total, Serum 7.0 g/dL (Normal) Range: 6.0-8.5 :17 LIPID PANEL (51002) Comments: PATIENT WAS FASTINGPERFORMED BY: Bonush Lldwmy8324 [facility] [id number] Cholesterol, Total 292 mg/dL (Abnormal) Range: 100-199 [...] Cholesterol Rocky 30 mg/dL (Normal) Range: 5-40 :47 Comp. Metabolic Panel (14) Comments: PATIENT WAS FASTINGPERFORMED BY: [employer] Dwssov1566 [facility] [id number] A/G Ratio 1.5 (Normal) Range: 1.1-2.5 Albumin, [...] Serum 86 mg/dL (Normal) Range: 65-99 If -Nigerian >59 mL/min/1.73 Comments: Note: Persistent reduction for [...] Panel (7) Comments: PATIENT WAS FASTINGPERFORMED BY: ZendyPlace LabCoSharp Edge LabsCmslqi1358 [facility] [id number] Bilirubin, Direct 0.11 mg/dL (Normal) Range: 0.00-0.40 :47 Lipid Panel With LDL/HDL Comments: PATIENT WAS FASTINGPERFORMED BY: [facility]Place [facility] Viyofn0420 [facility] [id number] Ratio Cholesterol, Total 325 mg/dL (Abnormal) Range: 100-199 Comment SPR (Normal) Comments: If initial LDL-cholesterol result is >100 mg/dL, assess forrisk factors. HDL Cholesterol 56 mg/dL (Normal) Comments: According to ATP-III Guidelines, HDL-C >59 mg/dL is considered anegative risk factor for CHD. LDL Cholesterol Calc 222 mg/dL (Abnormal) Range: 0-99 LDL/HDL Ratio 4.0 {ratio_units} (Abnormal) Range: 0.0-3.2 Triglycerides 237 mg/dL (Abnormal) Range: 0-149 VLDL Cholesterol Rocky 47 mg/dL (Abnormal) Range: 5-40 70-Zlz-24381:49 PELVIS WITH CONTRAST Radiology Report See Note (Normal) Comments: Exam Number: [id number] CT ABDOMEN WITHOUT AND WITH CONTRAST AND [...] or pelvis. Reported By: TITA FULLER M.D. 06-Uez-64317:48 ABDOMEN W/WO CONTRAST Radiology Report See Note (Normal) Comments: Exam Number: [id number] CT ABDOMEN WITHOUT AND WITH CONTRAST AND [...] or pelvis. Reported By: TITA FULLER M.D. :37 CBCD,SMEAR DIFF CELLS COUNTED 100 (Normal) HCT [...] 500 mg/dL VLDL 35 mg/dL (Normal) Range: 5-40 :37 TSH 1.40 {uIU/mL} (Normal) Range: 0.34-4.82 :43 BILAT SCRN DIGITAL & CAD Radiology Report See Note (Normal) Comments: Exam Number: [id number] DIGITAL SCREENING MAMMOGRAMS WITH CAD COMPARISON STUDYAugus2006 [...] mammograms werealso examined with computer-aided detection software ([employer], [employer] Reported By: TITA FULLER M.D. :30 LIPID CHOL 232 mg/dL (Abnormal) Comments: <200 [...] Report See Note (Normal) Comments: Exam Number: [id number] THREE VIEWS OF THE LEFT INDEX FINGER [...] Reported By: JULIO BRANCH M.D. :53 RENUKA-D [id number] RENUKA-DIRECT 27 AU/mL (Normal) Range: 0-99 Comments: [...] {IU/mL} (Normal) Range: 0.0-13.9 Comments: Performed At: [address] [id number] :53 URIC 3.4 mg/dL (Normal) Range: 2.6-6.0 [...] Report See Note (Normal) Comments: Exam Number: [id number] CT SCAN OF ABDOMEN AND PELVIS HISTORYEnlarged pancreas. Following the oral administration of contrast, scans were obtainedthrough the pancreas at 2.5-mm intervals without intraven ous contrastenhancement. With the intravenous administration of 100 mL of Ibxbkh135, scans were obtained at 2.5-mm intervals through [...] 2006. [facility] This wa s performed June [...] colonic diverticulosis. Reported By: CLEVELAND CHAND M.D. 65-Det-19168:08 PELVIS WITH CONTRAST Radiology Report See Note (Normal) Comments: Exam Number: [id number] CT SCAN OF ABDOMEN AND PELVIS HISTORYEnlarged pancreas. Following the oral administration of contrast, scans were obtainedthrough the pancreas at 2.5-mm intervals without intraven ous contrastenhancement. With the intravenous administration of 100 mL of Kfasyi905, scans were obtained at 2.5-mm intervals through [...] 2006. [facility] This wa s performed June [...] colonic diverticulosis. Reported By: CLEVELAND CHAND M.D. 75-Tjr-649698:55 DEXA BONE DENSITY STUDY () Radiology Report See Note (Normal) Comments: Exam Number: [id number] BONE DENSITOMETRY HISTORYOsteopenia. TECHNIQUE Bone densitometry of [...] density is measured at 8.5%less than in 1997 and 8.3% less than in 2001. IMPRESSIONThere is osteopenia of the lumbar spine. Bone densitometry of thetotal left hip is within normal limits. Reported By: CLEVELAND CHAND M.D. :46 TSH (95964) Comments: PATIENT NOT FASTINGClinical Information: ADD DRAW FEE 164089 ADD J0 3378 DIFFICULT DRAW PERFORMED BY: LabHenry [facility]6370 [facility] [id number] TSH 1.980 {uIU/mL} (Normal) Range: 0.350-5.500 :46 [...] mg/dL VLDL 31 mg/dL (Normal) Range: 5-40 :02 Fecal Occult Blood , Office (69983) Comments: NEG Fecal Occult Blood , Office Negative (Normal) Comments: X3 :07 BILAT SCRN DIGITAL & CAD Radiology Report See Note (Normal) Comments: Exam Number: [id number] BILATERAL SCREENING DIGITAL MAMMOGRAPHY AND CAD. REASON [...] mammograms werealso examined with computer-aided detection software ([employer].). Reported By: TITA FULLER :46 COMP METABOLIC [...] 4804 5.8 mg/dL (Abnormal) Range: 4.5-5.6 :46 PTH,[id number] PTH,Intact 19 pg/mL (Normal) Range: 12-65 Comments: Performed At: [address] [id number] :36 L/S SPINE,MIN 4 VIEWS Radiology Report See Note (Normal) Comments: Exam Number: [id number] LUMBAR SPINE, 5 VIEWS HISTORYLow back spine. [...] mg/dL VLDL 36 mg/dL (Normal) Range: 5-40 :25 ABDOMEN W/WO CONTRAST Radiology Report See Note (Normal) Comments: Exam Number: [id number] CT OF THE ABDOMEN WITH AND WITHOUT CONTRAST AND CT OF THE PELVIS WITHCONTRAST STATEMENTFollowup of pancreas and adrenal glands. COMPARISONAbdominal CT of June 18, 2006, and [facility] CT of March 22, 2006. TECHNIQUEInitial nonenhanced [...] adrenal gland. Reported By: PRABHAKAR ROTH M.D. 72-Hfd-42133:25 PELVIS WITH CONTRAST Radiology Report See Note (Normal) Comments: Exam Number: [id number] CT OF THE ABDOMEN WITH AND WITHOUT CONTRAST AND CT OF THE PELVIS WITHCONTRAST STATEMENTFollowup of pancreas and adrenal glands. COMPARISONAbdominal CT of June 18, 2006, and [facility] CT of March 22, 2006. TECHNIQUEInitial nonenhanced [...] adrenal gland. Reported By: PRABHAKAR ROTH M.D. 42-Fjp-41057:57 COMP METABOLIC A/G 1.1 {RATIO} (Normal) Range: [...] VLDL 33 mg/dL (Normal) Range: 5-40 :57 PTH,[id number] PTH,Intact 16 pg/mL (Normal) Range: 12-65 Comments: Performed At: [address] [id number] :45 BMP BUN 10 mg/dL (Normal) Range: [...] Plan of Care Name Dates Details Instructions Abnormal glucose tolerance test (Renamed from Abnormal glucose tolerance test (GTT)) : Follow up in 4 months Indication: Abnormal glucose tolerance test (Renamed from Abnormal glucose tolerance test (GTT)) Epigastric pain : Reviewed Diagnostic Tests Indication: Epigastric pain Epigastric pain : Reviewed [employer] Supervisor Letter Indication: Epigastric pain Hypercholesterolemia : Cholesterol mgmt Indication: Hypercholesterolemia Abnormal glucose tolerance test (Renamed from Abnormal glucose tolerance test (GTT)) : *Diabetes Education Indication: Abnormal glucose tolerance test (Renamed from Abnormal glucose tolerance test (GTT)) Annual Medicare Phyiscal WITHOUT abnormal findings (Renamed [...] unspecified iron deficiency anemia type : Reviewed [employer]izing Supervisor Letter-- colonoscopy 04/19-pelon Indication: Iron deficiency anemia, [...] - Female Indication: Acute sinusitis Planned Observations CALCIFIDIOL (28543) VIT D 25Indication: Vitamin D deficiency, unspecified On: :57 Request TSH (36137)Indication: Abnormal glucose tolerance test (Renamed from Abnormal glucose tolerance test (GTT)) On: :57 Request URINALYSIS, W/ MICRO (02965)Indication: Abnormal glucose tolerance test (Renamed from Abnormal glucose tolerance test (GTT)) On: :57 Request MICROALBUMIN: CREATININE RATIO (60904) AND (68222)Indication: Abnormal glucose tolerance test (Renamed from Abnormal glucose tolerance test (GTT)) On: :57 Request METABOLIC PANEL, COMPREHENSIVE (31254)Indication: Abnormal glucose tolerance test (Renamed from Abnormal glucose tolerance test (GTT)) On: :57 Request LIPOPROTEIN, BLD, BY NMR (34800)Indication: Hypercholesterolemia On: :57 Request CBC, PLATELETS & AUT DIFF (62286)Indication: Iron deficiency anemia, unspecified iron deficiency anemia type On: :57 Request VITAMIN B-12 (CYANOCOBALAMIN) (62560)Indication: Other dietary vitamin B12 deficiency anemia On: :56 Request IRON BINDING CAPACITY (TIBC) (55270)Indication: Iron deficiency anemia, unspecified iron deficiency anemia type On: :56 Request IRON (96907)Indication: Iron deficiency anemia, unspecified iron deficiency anemia type On: 2-Khs-063118:56 Request FERRITIN (38521)Indication: Iron deficiency anemia, unspecified iron deficiency anemia type On: 2-Szh-212524:56 Request Lipid Panel (22342)Indication: Hypercholesterolemia On: 06-Vpa-956469:39 Request MICROALBUMIN: CREATININE RATIO (60761) AND (41009)Indication: Abnormal glucose tolerance test (Renamed from Abnormal glucose tolerance test (GTT)) On: 1-Vjq-005530:03 Request URINALYSIS (01021)Indication: Abnormal glucose tolerance test (Renamed from Abnormal glucose tolerance test (GTT)) On: 2-Lvv-355218:03 Request IYOKH-VMTYPSDBKVP-YDBFA (24025)Indication: Hyperlipidemia, mixed On: 3-Abk-066205:16 Request CALCIFEDIOL (65187)Indication: Vitamin D deficiency, unspecified On: 5-Zhy-042811: Request IRON (32921)Indication: Iron deficiency anemia, unspecified iron deficiency anemia type On: 82-Qlm-445846:20 Request IRON (17961)Indication: Anemia, unspecified On: 71-Jql-378058:48 Request Urine Protein Electrophoresis (UPEP) (36313)Indication: Elevated serum globulin level On: 28-Aqw-871817:48 Request MICROALBUMIN: CREATININE RATIO (13851) AND (13635)Indication: Hypercholesterolemia On: :14 Request Comments: 09/19 VITAMIN B12 AND FOLATES (37050)Indication: Hypercholesterolemia On: :14 Request Comments: 09/19 CALCIFEDIOL (96968)Indication: Hypercholesterolemia On: :14 Request Comments: 09/19 TSH (THYROID STIMULATING HORMONE) (15884)Indication: Hypercholesterolemia On: :14 Request Comments: 09/19 METABOLIC PANEL, COMPREHENSIVE (20156)Indication: Hypercholesterolemia On: :14 Request Comments: 09/19 CBC, PLATELETS & AUT DIFF (63716)Indication: Hypercholesterolemia On: :14 Request Comments: 09/19 LIPID PANEL (91962)Indication: Hypercholesterolemia On: :14 Request Comments: 09/19 LIPID PANEL (95974)Indication: Hypercholesterolemia On: :13 Request Comments: 06/18 METABOLIC PANEL, COMPREHENSIVE (24389)Indication: Hypercholesterolemia On: 82-Hbu-192150:13 Request Comments: 06/18 LIPASE (57817)Indication: Vitamin D deficiency, unspecified On: : Request Vitamin D Hydroxy (48713)Indication: Vitamin D deficiency, unspecified On: : Request METABOLIC PANEL, COMPREHENSIVE (83962)Indication: Fatty liver On: :00 Request LIPID PANEL (62892)Indication: Hypercholesterolemia On: :00 Request LIPID PANEL (15972)Indication: Hypercholesterolemia On: :33 Request METABOLIC PANEL, COMPREHENSIVE (25801)Indication: Hypercalcemia On: :33 Request Vitamin D Hydroxy (19833)Indication: Vitamin D deficiency, unspecified On: :33 Request LIPASE (61366)Indication: Abnormal blood finding On: :28 Request AMYLASE (00964)Indication: Abnormal blood finding On: :28 Request URINE MAHENDRA CULTURE-IDENTIFICATN (97665)Indication: Urinary tract infection On: 4-Jjp-306634:11 Request Comments: repeat after finishing atb LIPID PANEL (08736)Indication: Hypercholesterolemia On: :43 Request CALCIUM SERUM (89558)Indication: Hypercalcemia On: :03 Request Vitamin D Hydroxy (46614)Indication: Hypercalcemia On: :03 Request Vitamin D Hydroxy (84948)Indication: Vitamin D deficiency, unspecified On: :28 Request CBC WITH MANUAL DIFF (18303)Indication: Anemia, unspecified On: :27 Request LIPID PANEL (33457)Indication: Hypercholesterolemia On: :27 Request METABOLIC PANEL, COMPREHENSIVE (91910)Indication: Hypercalcemia On: : Request OVA & PARASITE DIR SMEAR (12579)Indication: Diarrhea On: :50 Request OCCULT BLOOD FECES SCREEN (33738)Indication: Diarrhea On: :50 Request LEUKOCYTE COUNT, FECAL (46946)Indication: Diarrhea On: 65-Byu-695039:50 Request C-DIFFICILE, STOOL (91599)Indication: Diarrhea On: 81-Yzy-479198:50 Request MAHENDRA CULTURE-STOOL (19871)Indication: Diarrhea On: 57-Yzw-074777:50 Request IRON (37683)Indication: Anemia, unspecified On: 36-Puj-484444:25 Request Vitamin D Hydroxy (31896)Indication: Osteopenia On: :25 Request METABOLIC PANEL, COMPREHENSIVE (64826)Indication: Gastritis, acute On: :25 Request LIPID PANEL (27863)Indication: Hypercholesterolemia On: :25 Request Vitamin D Hydroxy (00995)Indication: Vitamin D deficiency, unspecified On: 37-Uoh-504053:13 Request HEPATIC FUNCTION PANEL (64606)Indication: Hypercholesterolemia On: :13 Request LIPID PANEL (61948)Indication: Hypercholesterolemia On: :13 Request HEPATIC FUNCTION PANEL (80656)Indication: Hypercholesterolemia On: :31 Request LIPID PANEL (43475)Indication: Hypercholesterolemia On: :31 Request METABOLIC PANEL, COMPREHENSIVE (45798)Indication: Hypercalcemia On: 69-Oym-43690:16 Request HEPATIC FUNCTION PANEL ([id number])Indication: Hypercholesterolemia On: :16 Request LIPID PANEL ([id number])Indication: Hypercholesterolemia On: :16 Request CBC WITH MANUAL DIFF ([id number])Indication: Hypercalcemia On: :20 Request TSH ([id number])Indication: Hypercalcemia On: :20 Request METABOLIC PANEL, COMPREHENSIVE ([id number])Indication: Hypercalcemia On: :20 Request HEPATIC FUNCTION PANEL ([id number])Indication: Hypercholesterolemia On: :19 Request LIPID PANEL ([id number])Indication: Hypercholesterolemia On: :19 Request Uric Acid Blood ([id number])Indication: arthritis left first digit On: :53 Request SED RATE ERYTHROCYTE ([id number])Indication: arthritis left first digit On: 02-Qyc-74937:53 Request C-REACTIVE PROTEIN ([id number])Indication: arthritis left first digit On: :53 Request RHEUMATOID FACTOR-QUANT ([id number])Indication: arthritis left first digit On: 62-Wvj-13449:53 Request RENUKA (ANTINUCLEAR ANTIBODY) ([id number])Indication: arthritis left first digit On: :53 Request LIPID PANEL ([id number])Indication: Hypercholesterolemia On: :06 Request HEPATIC FUNCTION PANEL ([id number])Indication: Hypercholesterolemia On: :06 Request METABOLIC PANEL, COMPREHENSIVE ([id number])Indication: Hypercalcemia On: 71-Ptp-947641:37 Request HEPATIC FUNCTION PANEL ([id number])Indication: Hypercholesterolemia On: 54-Hrs-508245:37 Request LIPID PANEL ([id number])Indication: Hypercholesterolemia On: :37 Request METABOLIC PANEL, COMPREHENSIVE ([id number])Indication: Hypercalcemia On: :40 Request HEPATIC FUNCTION PANEL ([id number])Indication: Hypercholesterolemia On: :40 Request LIPID PANEL ([id number])Indication: Hypercholesterolemia On: :40 Request METABOLIC PANEL, COMPREHENSIVE ([id number])Indication: Hypercalcemia On: 39-Wbo-443445:08 Request HEPATIC FUNCTION PANEL ([id number])Indication: Hypercholesterolemia On: 42-Vqe-171911:07 Request LIPID PANEL ([id number])Indication: Hypercholesterolemia On: 37-Wea-330134:07 Request HEPATIC FUNCTION PANEL ([id number])Indication: Hypercholesterolemia On: :58 Request Comments: 3 mos LIPID PANEL ([id number])Indication: Hypercholesterolemia On: 96-Pow-641739:58 Request Planned Encounters Medical; 4 Month FU - On: 04-Nov-2018 8:30 [facility] Camryn Faith DO, DO, Kathleen Planned Procedures B 12 Injection, 1000 mcg ([id number])By: On: 05-Jul-2018 Intent Camryn Faith DO, DO, Comments: 1 ml given lt dltd lot [id number] exp 12/21 Camryn DEXA SCAN AXIAL SKELETON ([id number])By: On: 24-Apr-2018 Intent Camryn Faith DO, DO, Kathleen ABDOMINAL ULTRASOUND, LIMITED On: 10-Apr-2018 Intent ([id number])By: Camryn Faith DO, DO, Kathleen ELECTROCARDIOGRAM, COMPLETE (ECG) On: 10-Apr-2018 Intent ([id number])By: Camryn Faith DO Comments: nsr no acute chg Camryn Faith DO Nuclear Stress Test/Stress On: 10-Apr-2018 Intent SPECT/TreadmillBy: Camryn Faith DO, DO, Kathleen Echo CompleteBy: Marcell YEE, On: 10-Apr-2018 Intent Camryn Dykes DO ELECTROCARDIOGRAM, COMPLETE (ECG) On: 05-Dec-2017 Intent ([id number])By: Camryn Faith DO Comments: nsr no acute chg Camryn Faith DO DEXA SCAN AXIAL SKELETON ([id number])By: On: 05-Dec-2017 Intent Camryn Faith DO, DO, Kathleen US DOPPLER CAROTID BILATERAL On: 05-Dec-2017 Intent ([id number])By: Camryn Faith DO, DO, Kathleen ELECTROCARDIOGRAM, COMPLETE (ECG) On: 03-Aug-2017 Intent ([id number])By: Camryn Faith DO Comments: nsr no acute chg Camryn Faith DO US DOPPLER CAROTID BILATERAL On: 03-Aug-2017 Intent ([id number])By: Camryn Faith DO, DO, Kathleen Flu Vaccine (Quadrivalent) [id number]: On: 11-Jun-2017 Intent Camryn Faith DO, DO, Comments: QUAD flu shotlot number: [id number]: 12/2017L Deltoid IMAD MINE [employer]ORER Camryn B 12 Injection, 1000 mcg ([id number])By: On: 03-May-2017 Intent Camryn Faith DO, DO, Comments: 1 ml given rt arm lot [id number] exp 10/22 Camryn MAMMOGRAM, BOTH SIDES ([id number])By: On: 05-Dec-2016 Intent Camryn Faith DO, DO, Comments: due after 02/14/17 Camryn Ultrasound - Abdomen Complete & On: 26-Apr-2016 Intent PelvisBy: Royal Perea MD DEXA SCAN AXIAL SKELETON ([id number])By: On: 25-Jan-2016 Intent Kylie Haywood DO MAMMOGRAM, SCREENING, BOTH BREAST On: 25-Jan-2016 Intent ([id number])By: Kylie Haywood DO Cartoid DopplerBy: Yobany YEE Kylie A On: 25-Jan-2016 Intent Radiology - Lumbar SpineBy: Fast On: 22-Oct-[address] - Abdomen (IV Contrast On: 22-Oct-2015 Intent Needed)By: Kylie Haywood DO Flu Vaccine (Quadrivalent) [id number]: On: 25-Jun-2015 Intent Itzel Boucher LPN Comments: Lot #Lot #[id number]-L dltd, IMDose prefilled syringeVIS and ABN signedgiven by:DERRICK mahmood MAMMOGRAM, SCREENING, BOTH BREAST On: 09-Feb-2015 Intent ([id number])By: Kylie Haywood DO Cartoid DopplerBy: Kylie Haywood DO On: 09-Feb-2015 Intent IMMUNIZ ADMNIN, 1 VAC, SNGL/COMBO On: 25-Jun-2014 Intent ([id number])By: Magdalena Leroy ZOSTER VACC, [place] ([id number])By: Mariaa, On: 25-Jun-2014 Intent Magdalena EKG ([id number])By: Kylie Haywood DO On: 19-May-2014 Intent Comments: ekg showed normal sinus rhythym, normal axis, no acute st/t wave changes MAMMOGRAM, SCREENING, BOTH BREASTS On: 06-Jan-2014 Intent ([id number])By: Kylie Haywood DO Eprescribed prescriptions On: 06-Jan-2014 Intent ([id number])By: Kylie Haywood DO Rrstnueqf-Tee-Facs ([id number])By: Yobany On: 14-Oct-2013 Intent Kylie YEE Pelvic and Breast, Medicare On: 14-Oct-2013 Intent (G0101)By: Kylie Haywood DO A Eprescribed prescriptions On: 08-Sep-2013 Intent (G8553)By: Magdalena Leroy ADMINISTRATION OF INFLUENZA VIRUS On: 09-Jun-2013 Intent VACCINE (G0008)By: Kim MEZA, Comments: Lot:[id number]:6.14Amt:0.5mLSite: L Dltd, IMGiven by: DERRICK SilvermanVIS signed Shayla FLU VAC, SPLIT, >3 YEARS, INTRAMUSC On: 09-Jun-2013 Intent ([id number])By: Shayla Alvarez LPN Spirometry ([id number])By: Mraiaa, On: 13-May-2013 Intent Magdalena Comments: good effort and curve normal EKG (17684)By: Kylie Haywood DO On: 13-May-2013 Intent Comments: ekg showed normal sinus rhythym, normal axis, no acute st/t wave changes DXA, BONE DENSITY, AXIAL SKELETON On: 13-May-2013 Intent ([id number])By: Kylie Haywood DO Comments: alexus Eprescribed prescriptions On: 13-May-2013 Intent ([id number])By: Magdalena Leroy Eprescribed prescriptions On: 25-Apr-2013 Intent ([id number])By: Alicia Shaffer Ultrasound - Abdomen Complete & On: 22-Apr-2013 Intent PelvisBy: Purnima VALLE, Merle Eprescribed prescriptions On: 22-Apr-2013 Intent ([id number])By: Alicia Shaffer PNEUM VAC ADLT/IMUMNOSPR, SBC/INTRM On: 10-Jan-2013 Intent ([id number])By: Kylie Haywood DO Comments: lot: [id number]: 03/06/14site/route: L deltoid/IMamt: 0.5mlVIS signed when applicable: OSCAR Liu ADMINISTRATION OF PNEUMOCOCCAL On: 10-Jan-2013 Intent VACCINE ([id number])By: Kylie Haywood DO Ultrasound - Abdomen CompleteBy: On: 16-Dec-[address] DO CT - AbdomenBy: Kylie Haywood DO On: 13-Dec-2012 Intent MAMMOGRAM, SCREENING, BOTH BREASTS On: 13-Dec-2012 Intent ([id number])By: Kylie Haywood DO EKG ([id number])By: Magdalena Leroy On: 06-Feb-2012 Intent Comments: ekg showed normal sinus rhythym, normal axis, no acute st/t wave changes TDAP VACCINE >7 IM ([id number])By: Yobany On: 04-Jul-2011 Intent Kylie YEE Comments: Lot #[id number] arm, IMSite- Dose prefilledgiven by:Ale DXA, BONE DENSITY, AXIAL SKELETON On: 04-Jul-2011 Intent ([id number])By: Kylie Haywood DO Spirometry (73607)By: Yobany YEE, On: 13-Jun-2011 Intent Kylie Farris Comments: good effort and curv enormal Rdrxuytps-Ojq-Orilg ([id number])By: Yobany On: 13-Jun-2011 Intent Kylie YEE Radiology - Chest- PA and LatBy: On: 13-Jun-2011 Intent Kylie Haywood DO MAMMOGRAM, SCREENING, BOTH BREASTS On: 13-Jun-2011 Intent ([id number])By: Kylie Haywood DO Comments: nov Cartoid DopplerBy: Kylie Haywood DO On: 13-Jun-2011 Intent FLU VAC, SPLIT, >3 YEARS, INTRAMUSC On: 13-Jun-2011 Intent ([id number])By: Magdalena Leroy Comments: Lot #:[id number] date:03/02/12Amount given:0.5mlRoute: IMSite given:left deltGiven by: PARIS Silver TD Injection , IM ([id number])By: On: 13-Jun-2011 Intent Magdalena Leroy Comments: received in 1999 ADMINISTRATION OF INFLUENZA VIRUS On: 13-Jun-2011 Intent VACCINE (G0008)By: Magdalena Leroy CT - Brain/HeadBy: Kylie Haywood DO On: 19-Apr-2011 Intent Comments: stat call wet read EKG ([id number])By: Magdalena Leroy On: 01-Nov-2010 Intent Comments: ekg showed normal sinus rhythym, normal axis, no acute st/t wave changes FLU VAC, SPLIT, >3 YEARS, INTRAMUSC On: 17-Jun-2010 Intent ([id number])By: Magdalena eLroy Comments: Lot #: [id number] date: mount given: 0.5 mlRoute: IMSite given: left deltoidGiven by: Brenton Castillo RN MAMMOGRAM, SCREENING, BOTH BREASTS On: 17-Jun-2010 Intent ([id number])By: Kylie Haywood DO ADMINISTRATION OF INFLUENZA VIRUS On: 17-Jun-2010 Intent VACCINE (G0008)By: Magdalena Leroy EKG ([id number])By: Magdalena Leroy On: 27-Jul-2009 Intent Comments: ekg showed normal sinus rhythym, normal axis, no acute st/t wave changes MAMMOGRAM, SCREENING, BOTH BREASTS On: 27-Apr-2009 Intent ([id number])By: Kylie Haywood DO A DXA, BONE DENSITY, AXIAL SKELETON On: 27-Apr-2009 Intent ([id number])By: Se Haywood DOa A Comments: oct Nerve ConductionBy: Se Haywood DOa On: 23-Oct-2008 Intent A Comments: upper ext EMGBy: Se Haywood DOa A On: 23-Oct-2008 Intent Comments: upper ext CT - Abdomen & PelvisBy: Yobany YEE, On: 23-Jun-2008 Intent Kylie A FLU VAC, SPLIT, >3 YEARS, INTRAMUSC On: 23-Jun-2008 Intent ([id number])By: Magdalena Leroy IMMUNIZ ADMNIN, 1 VAC, SNGL/COMBO On: 23-Jun-2008 Intent ([id number])By: Magdalena Leroy EKG ([id number])By: Magdalena Leroy On: 23-Jun-2008 Intent Comments: ekg showed normal sinus rhythym, normal axis, no acute st/t wave changes EKG ([id number])By: Kylie Haywood DO A On: 25-Jun-2007 Intent Comments: ekg showed normal sinus rhythym, normal axis, no acute st/t wave changes CT - Abdomen & PelvisBy: Yobany YEE, On: 25-Jun-2007 Intent Kylie A DXA, BONE DENSITY, AXIAL SKELETON On: 25-Jun-2007 Intent ([id number])By: Kylie Haywood DO A IMMUNIZ ADMNIN, 1 VAC, SNGL/COMBO On: 25-Jun-2007 Intent ([id number])By: Se Haywood DOa A FLU VAC, SPLIT, >3 YEARS, INTRAMUSC On: 25-Jun-2007 Intent ([id number])By: Se Haywood DOa A Comments: given in left deltoid, 0.5cc, lot#[id number], exp.03.02.08 WF Pneumovax ([id number])By: Yobany YEE, On: 25-Jun-2007 Intent Kylie A Comments: given in right deltoid, 0.5cc, lot#[id number], exp.07.14.08 WF EKG ([id number])By: Magdalena Leroy On: 25-Mar-2007 Intent Comments: ekg showed normal sinus rhythym, normal axis, no acute st/t wave changes CT - Abdomen & PelvisBy: Yobany , On: 25-Dec-2006 Intent Kylie A Planned Medications Vitamin B-12 1000 MCG/ML Injection Solution Ordered: 03-May-2017 Pending Camryn Faith DO, DO, Kathleen Vitamin B-12 1000 MCG/ML Injection Solution Ordered: 05-Jul-2018 Pending Camryn Faith DO, DO, Kathleen Instructions [...] Patient Instructions Indication: Other anxiety states Encounters Office Visit On: 05-Jul-2018 9:50 Encounter Reason: Follow up for chronic medical issues - The patient feels well with minor complaints, has good energy level and is sleeping well. Patient has been compliant with instructions. Current medication use: no End: 05-Jul-2018 12:37 side effects and compliant with dosing regimen. Patient sleeps 6 hours per night. Nutrition: balanced diet and supplemental vitamins. The medical issues the patient is following up for include All ident ified problems below, blood sugar issues, gastric reflux, high cholesterol and other. blood pressure range : and weight :.Encounter Diagnosis: BMI 27.0-27.9,adult, Non-smoker, Abnormal glucose tolerance test (Renamed from Abnormal glucose tolerance test (GTT)), Hypercholesterolemia, Iron deficiency anemia, unspecified iron deficiency anemia type, Other dietary vitamin B12 deficiency anemia, Bilateral kidney stones, Epigastric pain, Asymptomatic bilateral carotid artery stenosis, Vitamin D deficiency, unspecified [facility] Phone Encounter On: 28-Jun-2018 13:37 Encounter Diagnosis: [...] The patient does have durable power of boatswain mate and living will. The patient has noticed [...] preve ntative measures: PAP smear (2014), mammography (2016) and colonoscopy (2016). The patient does have durable power of boatswain mate and living will. The patient has noticed [...] The patient does have durable power of boatswain mate and living will. The patient has noticed nothing from the geriatic de pression scale. Other providers contributing to the patient's care are gastrologist and fisher trot line., [ADDITIONAL REASON] Well Women Exam - The patient feels well with minor complaints (left sided rib p ain from falling in bathtub couple weeks ago), has good energy level and is sleeping well. Pap smear: date of last pap: (not sure when last pap was since had hysterectomy). Contraceptive history: The pa tieevans is not using any method of contraception [...] results: she is feeling alot better - saw yudelka lozano End: 10-Jan-2013 8:44 ut her on [...] but still - cough nonproductive- xray ok takalea clive End: 04-Jul-2011 11:42 d meds- and [...] up she is exercising and joined the Employee Benefit Plans [facility]- she is working on diet too- [...] chronic medical issues: gerd is stable and tr yeni to watch the diet- she does have [...] Patient has been compliant with instructions. Current wi End: 25-Dec-2006 10:13 dication use: no side [...] c medical issues: tolerating welchol and saw order picker and she is not finding an etiology [...] she never followed up for results with [employer] and I encouraged to be compliant with [...] pancreas and she never followed up with [facility] to get results, [ADDITIONAL REASON] Follow up, [...]
--- OUTSIDE RECORDS SUMMARY | 2018-09-29 08:20 | XMS RPT_ITS | Continuity of Care Document ---
:1945 Author Organization [facility] Address [facility]7 [facility] [address] [place] [address] Phone Care Team Providers Name Role Phone [...] : 18-Sep-2006 End : 01-Oct-2006 Discontinued ZOSTAVAX, 92889GSZ/0.65ML (Subcutaneous Solution Reconstituted) 1 (one) For Solution [...] with discont sympthomo from running out of cyConverginta Status: Inactive as of 05-Dec-2017 Other specified [...] Visit Report Result: Comments: See Note; NOTES: [facility] [address] [place] [address] OFFICE VISIT Date of Service: 06/24/18 MR#: [id number] Acct: [id number] Name: BRANDIE KUO Rep #: [id number] : 1945 Provider: Rylan Bird MD Age/Sex: 73/F Location: [facility] Status: Signed Intake Vital Signs06/24/18 Height 5 ft 1.5 in 06/24/18 Weight: 149 lb Intake Visit Re asons: To discuss test results Chief Complaint: gerd, need for colonoscopy Bolt Sorter Required: No Is patient in pain?: No Allergies erythromycin base Allergy (Verified 06/24/18 07:52) Rash ibuprofen [From Motrin] Allergy (Verified 06/24/18 07:52) Rash dicyclomine HCl [From Bentyl] Adverse Reaction (Verified 06/24/18 07:52) Nausea nitrofurantoin Adverse Reaction (Verified 06/24/18 07:52) Nausea Sul fa (Sulfonamide Antibiotics) Adverse Reaction (Verified 06/24/18 07:52) Nausea Medications traMADol [Ultram] 100 mg PO BID 09/30/13 [History Confirmed 06/24/18] Bergamot [[place] Bergamot] 02/12/17 [H istory Confirmed 06/24/18] Cyanocobalamin [...] (Acute) Arthritis (Acute) Constipation (Acute) Diabetes (Ac inaja) Diverticula of colon (Acute) GERD (gastroesophageal reflux [...] right upper quadrant ultrasound performed at the [facility] Fatty infiltration of the liver. Mild right hydronephrosis. No stones identified. Evidence of previous cholec ystectomy. April 30, 2018 contrast upper GI examination performed at the [facility] Normal findings May 08, 2018 CT scan abdomen and pelvis performed at the [facility] pital. 3 nonobstructing right renal collecting [...] hagia R13.10 Plan Today was a 20-minute [id number]-[id number] consultative appointment. I reviewed all of the [...] signed by Rylan Bird MD> Rudy e yRlan Bird MD Cosigner Signature: Date (if applicable) CC: Camryn Faith DO 31-May-2018 Gastric Emptying Study Result: Comments: See Note; NOTES: [facility] Imaging Services [address] [place] [address] Gastric Emptying Study MR#: [id number] Acct: [id number] Name: BRANDIE KUO Rep #: [id number] : 1945 F 73 From: Carson Thacker DO PCP: Camryn Faith DO Status: REG CLI Study: Gastric Emptying Study Date of Exam: 05/31/18 Exam# [id number] Ordering Dr: Kay Sanchez PA-C CLINICAL : [...] CC: Kay Sanchez PA-C; Camryn Faith DO Roof Truss Builder: Signed 28-May-2018 Surgery Visit Report Result: Comments: See Note; NOTES: [facility] [address] [facility] [place] [address] OFFICE VISIT Date of Service: 05/28/18 MR#: [id number] Acct: [id number] Name: ADITHYA KUORA Beckman Rep #: [id number] : 1945 Provider: Rylan Bird MD Age/Sex: 73/F Location: [facility] Status: Signed Intake Intake Visit Reasons: [...] BI D 09/30/13 [History Confirmed 04/25/18] Bergamot [[place] Bergamot] 02/12/17 [History Confirmed 04/25/18] Cyanocobalamin (Vitamin [...] mcg PO DAILY 04/25/18 [History Confirmed 04/25/18] [facility] Medical History Screening for intestinal cancer (Acute) [...] Esophagitis presence: esophagitis presence not specified 05/28/18 6092 <Electronically signed by Rylan Bird MD> Date Rylan Bird MD Cosigner Signature: Date (if applicable) CC: Camryn Faith DO 23-May-2018 Dexa Bone Density Study Result: Comments: See Note; NOTES: [facility] Imaging Services [address] [place] [address] Dexa Bone Density Study MR#: [id number] Acct: [id number] Name: BRANDIE KUO Rep #: [id number] : 1945 F 73 From: Zbigniew Carroll MD PCP: Camryn Faith DO Status: REG CLI Study: Dexa Bone Density Study Date of Exam: 05/23/18 Exam# [id number] Ordering Dr: Camryn Faith DO UDY: DUAL [...] Zbigniew Carroll MD at 8:17 EDT Tel [phone], Service support , CC: Camryn Faith DO Roof Truss Builder: Signed 22-May-2018 Operative Report - Endoscopy Result: Comments: See Note; NOTES: [facility] Medical Records Department [address] [place] [address] Progress Note - Endoscopy 05/21/18 0647 MR#: [id number] Acct: [id number] Name: BRANDIE LOGAN Rep #: [id number] : 1945 73 From: Rylan Bird MD [...] 1 week. Procedure Code(s): --- Professional --- 76909, Colonoscopy, flexible; with transendoscopic balloon dilation Diagn osis Code(s): --- Professional --- Z12.11, Encounter for screening for malignant neoplasm of colon K64.9, Unspecified hemorrhoids Z98.0, Intestinal bypass and anastomosis status K57.30, Diverticulosis o f large intestine without perforation or abscess without bleeding CPT copyright 2017 [employer]. All rights reserved. The codes documented in this report are preliminary and upon editor book review may be revised to meet current [...] - Endoscopy Result: Comments: See Note; NOTES: [facility] Medical Records Department [address] [place] [address] Progress Note - Endoscopy 05/21/18646 MR#: [id number] Acct: [id number] Name: BRANDIE LOGAN Rep #: [id number] : 1945 73 From: Rylan Bird MD [...] 1 week. Procedure Code(s): --- Professional --- 51206, Colonoscopy, flexible; with transendoscopic balloon dilation Diagn osis Code(s): --- Professional --- Z12.11, Encounter for screening for malignant neoplasm of colon K64.9, Unspecified hemorrhoids Z98.0, Intestinal bypass and anastomosis status K57.30, Diverticulosis o f large intestine without perforation or abscess without bleeding CPT copyright 2017 [employer]. All rights reserved. The codes documented in this report are preliminary and upon editor book review may be revised to meet current [...] - Endoscopy Result: Comments: See Note; NOTES: [facility] Medical Records Department [address] [place] [address] Progress Note - Endoscopy 05/21/18646 MR#: [id number] Acct: [id number] Name: BRANDIE LGOAN Rep #: [id number] : 1945 73 From: Eduardo Adams MD Patient Name: Brandie Kuo Procedure Date: 05/21/2018 6:47 AM Date of : 1945 Account Number: [id number] Age: 73 Procedure: Colonoscopy Indications: Screening for [...] specimens collected. Recommendation: - Discharge patient to [facility]. - Resume previous diet. - Continue present medications. - Return to my office in 1 week. Procedure Code(s): --- Professional --- 60886, Colonoscopy, flexible; with transendoscopic balloon dilation D iagnosis Code(s): --- Professional --- Z12.11, Encounter for screening for malignant neoplasm of colon K64.9, Unspecified hemorrhoids Z98.0, Intestinal bypass and anastomosis status K57.30, Diverticulos is of large intestine without perforation or abscess without bleeding CPT copyright 2017 [employer]. All rights reserved. The codes [...] - Endoscopy Result: Comments: See Note; NOTES: [facility] Medical Records Department [address] [place] [address] Progress Note - Endoscopy 05/21/18646 MR#: [id number] Acct: [id number] Name: BRANDIE LOGAN Rep #: [id number] : 1945 73 From: Eduardo Adams MD Patient Name: Brandie Kuo Procedure Date: 05/21/2018 6:47 AM Date of : 1945 Account Number: [id number] Age: 73 Procedure: Colonoscopy Indications: Screening for [...] specimens collected. Recommendation: - Discharge patient to [facility]. - Resume previous diet. - Continue present medications. - Return to my office in 1 week. Procedure Code(s): --- Professional --- 99315, Colonoscopy, flexible; with transendoscopic balloon dilation D iagnosis Code(s): --- Professional --- Z12.11, Encounter for screening for malignant neoplasm of colon K64.9, Unspecified hemorrhoids Z98.0, Intestinal bypass and anastomosis status K57.30, Diverticulos is of large intestine without perforation or abscess without bleeding CPT copyright 2017 [employer]. All rights reserved. The codes [...] - Endoscopy Result: Comments: See Note; NOTES: [facility] Medical Records Department [address] [place] [address] Progress Note - Endoscopy 05/21/18621 MR#: [id number] Acct: [id number] Name: BRANDIE LOGAN Rep #: [id number] : 1945 73 From: Eduardo Adams MD Patient Name: Brandie Kuo Procedure Date: 05/21/2018 6:22 AM Date of : 1945 Account Number: [id number] Age: 73 Procedure: Upper GI endoscopy Indications: [...] week. Procedure Code(s): --- P rofessional --- 03883, Esophagogastroduodenoscopy, flexible, transoral; with biopsy, single or multiple Diagnosis Code(s): --- Professional --- K21.0, Gastro- esophageal reflux disease with esophagitis K 44.9, Diaphragmatic hernia without obstruction or gangrene K29.50, Unspecified chronic gastritis without bleeding CPT copyright 2017 [employer]. All rights reserved. The codes document ed in this report are preliminary and upon editor book review may be revised to meet current [...] without Cont Result: Comments: See Note; NOTES: [facility] Imaging Services [address] [place] [address] Abdomen/Pelvis without Cont MR#: [id number] Acct: [id number] Name: BRANDIE KUO Rep #: [id number] : 1945 F 72 From: Kenneth Hunter MD PCP: Camryn Faith DO Status: REG CLI Study: Abdomen/Pelvis without Cont Date of Exam: 05/08/18 Exam# [id number] Ordering Dr: Pino Jang MD STUDY: CT [...] CC: Pino Jang MD; Camryn Faith DO Roof Truss Builder: Signed 30-Apr-2018 Upper GI w/BA Swallow Result: Comments: See Note; NOTES: [facility] Imaging Services [address] [place] [address] Upper GI w/BA Swallow MR#: [id number] Acct: [id number] Name: BRANDIE KUO Rep #: [id number] : 1945 F 72 From: Zbigniew Carroll MD PCP: Camryn Faith DO Status: REG CLI Study: Upper GI w/BA Swallow Date of Exam: 04/30/18 Exam# [id number] Ordering Dr: Rylan Bird MD STUDY: AIR-CONTRAST [...] Zbigniew Carroll MD at 15:59 EDT Tel [phone], Service support , CC: Camryn Faith DO; Rylan Bird MD Roof Truss Builder: Signed 25-Apr-2018 Surgery Visit Report Result: Comments: See Note; NOTES: [facility] [address] [place] [address] OFFICE VISIT Date of Service: 04/25/18 MR#: [id number] Acct: [id number] Name: BRANDIE KUO Rep #: [id number] : 1945 Provider: Rylan Bird MD Age/Sex: 72/F Location: [facility] Status: Signed Intake Vital Signs04/25/18 Height 5 ft 1 in 04/25/18 Weight: 149 lb 5 oz 04/25/18 Body Mass Index (BMI) 28.2 04/25/18 Blood Pressure 166/75 Intake Visit Reasons: Acid Reflux Chief Complaint: gerd, need for colonoscopy Bolt Sorter Required: No Is patient in pain?: No Allergies erythrom ycin base Allergy (Verified 04/25/18 08:41) Rash ibuprofen [From Motrin] Allergy (Verified 04/25/18 08:41) Rash dicyclomine HCl [From Bentyl] Adverse Reaction (Verified 04/25/18 08:41) Nausea nitrofuran toin Adverse Reaction (Verified 04/25/18 08:41) Nausea Sulfa (Sulfonamide Antibiotics) Adverse Reaction (Verified 04/25/18 08:41) Nausea Medications traMADol [Ultram] 100 mg PO BID 09/30/13 [History Confirmed 04/25/18] Bergamot [[place] Bergamot] 02/12/17 [History Confirmed 04/25/18] Cyanocobalamin (Vitamin [...] Stress Report Result: Comments: See Note; NOTES: [facility] Cardiovascular Services [address] [place] [address] MR#: [id number] Acct: [id number] Name: BRANDIE KUO Rep #: [id number] : [birth year] 72 From: Julio Cote MD [...] 86 %. This note was generated with [employer] dictation software. It may contain incorrect words, spelling, and punctuation that were not noted in checking the note before signing. 04/16/181713 <Electronically signed by Julio savage MD> Date Julio Cote MD CC: Camryn Faith DO Date Dictated: 04/16/181708 Date Transcribed: 04/16/181708 Roof Truss Builder: PM Signed 16-Apr-2018 Echocardiogram Complete Result: Comments: See Note; NOTES: [facility] Cardiovascular Services [address] [place] [address] Echo Complete 04/16/18843 MR#: [id number] Acct: [id number] Name: BRANDIE KUO ep #: [id number] : 1945 72 From: Julio Cote MD [...] Physician: Camryn Faith Performed By: Sam Quinones [facility] [[email or web address]] 04/16/18 1559 Date Julio Cote MD CC: Camryn Faith DO Date Dictated: 04/16/18 0844 Date Transcribed: 04/16/18 1559 Roof Truss Builder: Signed 16-Apr-2018 Abdomen Limited Result: Comments: See Note; NOTES: [facility] Imaging Services [address] [place] [address] Abdomen Limited MR#: [id number] Acct: [id number] Name: BRANDIE KUO Rep #: [id number] : 1945 F 72 From: Bairon Fernandez MD PCP: Camryn Faith DO Status: REG CLI Study: Abdomen Limited Date of Exam: 04/16/18 Exam# [id number] Ordering Dr: Camryn Faith DO STUDY: ABDOMINAL [...] Service support , CC: Camryn Faith DO Roof Truss Builder: Signed 01-Feb-2018 Breast Limited Unilateral Result: Comments: See Note; NOTES: [facility] Imaging Services [address] [place] [address] Breast Limited Unilateral MR#: [id number] Acct: [id number] Name: BRANDIE KUO Rep #: [id number] : 1945 F 72 From: Zbigniew Carroll MD PCP: Camryn Faith DO Status: REG CLI Study: Breast Limited Unilateral Date of Exam: 02/01/18 Exam# [id number] Ordering Dr: Evelyn Patel LEARNING ANALYST-Sara STUDY: ULTRASOUND BREAST - RIGHT REASON FOR [...] Zbigniew Carroll MD at 15:46 EDT Tel [phone], Service support , CC: CHIQUIS Patel; Camryn Faith DO Roof Truss Builder: Signed 01-Feb-2018 DIAG MAMM W/CAD, BILAT Result: Comments: See Note; NOTES: [facility] Imaging Services [address] [place] [address] DIAG MAMM W/CAD, BILAT MR#: [id number] Acct: [id number] Name: BRANDIE KUO Rep #: [id number] : 1945 F 72 From: Zbigniew Carroll MD PCP: Carmyn Faith DO Status: [facility] CL Study: DIAG MAMM W/CAD, BILAT Date of Exam: 02/01/18 Exam# [id number] Ordering Dr: Evelyn Patel LEARNING ANALYST-C WAGNER MOGRAPHY - BILATERAL DIAGNOSTIC REASON FOR [...] Zbigniew Carroll MD at 15:36 EDT Tel [phone], Service support , CC: CHIQUIS Patel; Camryn Faith DO Roof Truss Builder: Signed 29-Jan-2018 Natural Resource Manager Office Visit Report Result: Comments: See Note; NOTES: [facility] [place] [address] [facility] [place] [address] OFFICE VISIT Date of Service: 01/29/18 MR#: [id number] Acct: [id number] Name: ADITHYA KUO RA Rep #: [id number] : 1945 Provider: CHIQUIS Patel Age/Sex: 72/F Location: [facility] Status: Signed Intake Vital Signs01/29/18 Height 5 ft 1 in 01/29/18 Weight: 147 lb 6 oz 01/29/18 Body M ass Index (BMI) 27.8 01/29/18 Blood Pressure 131/74 Intake Visit Reasons: WELLNESS CHECK Chief Complaint: est annual Bolt Sorter Required: No Is patient in pain?: Yes [...] BID 09/30/13 [History Confirmed 01/02 05/21] Bergamot [[place] Bergamot] 02/12/17 [History Confirmed 01/29/18] Cyanocobalamin (Vitamin [...] abortions Past Pregnancies Del. DatName GA/WeeksOutcome Route [facility] LocaProviderFOB e ht en tn Unknown 1965 [...] alert, oriented to person, oriented to place HENIL Head: normal to inspection Neck Neck: normal [...] hospital records, she thought was done at [facility]. Will check [facility] records also. RTO 1 year, prn with problems Evelyn Patel MEDICAL STAFF MANAGER Orders Orders: Medications New : Coding Level [...] Duplex Ultrasound Result: Comments: See Note; NOTES: [facility] Cardiovascular Services [address] [place] [address] Carotid Duplex Ultrasound 12/25/17 1043 MR#: [id number] Acct: [id number] Name: JANET KitBRANDIE K Rep #: [id number] : 1945 72 From: Ej Ortiz MD Attending Dr: Camryn Faith DO Status: REG CLI Ordering Dr: Camryn Faith DO Date: 12/25/17 Location: [facility] Sex: F C Admitted: Reason For [...] the left vertebral artery. Procedure Carotid Duplex 92675. Exam performed in [facility]. Interpretation Summary Mild (<50%) stenosis right extracranial internal carotid. Mild (<50%) stenosis left extracranial internal carotid. Flow within the vertebral arteries is antegrade bilaterally. Ordering Physician: Camryn Faith Referring Physician: Mai Faith Performed By: Adelita Ramirez RVT 12/26/17823 Date Ej Ortiz MD CC: Rk Faith DO Date Dictated: 12/25/17 1043 Date Transcribed: 12/26/17823 Roof Truss Builder: Signed 26-Sep-2017 Urgent Care Visit Report Result: Comments: See Note; NOTES: [facility] [address] [place] [address] [address] [place] [address] OFFICE VISIT Date of Service: 08/28/17 MR#: [id number] Acct: [id number] Name: BRANDIE KUO Rep #: [id number] : 1945 Provider: Carmine ELDER Age/Sex: 72/F Location: [facility] Status: Signed Intake Vital Signs08/28/17 Height 5 ft 1 in 08/28/17 Weight: 146 lb 08/28/17 Body Mass Index (BMI) 27.6 Intake Visit Reasons: Sinus infection Bolt Sorter Required: No Is patient in pain?: No Allergies erythromycin base Allergy (Verified 08/28/17 09:42) Rash ibuprofen [From Motrin] Allergy (Verifie d 08/28/17 09:42) Rash dicyclomine HCl [From Bentyl] Adverse Reaction (Verified 08/28/17 09:42) Nausea nitrofurantoin Adverse Reaction (Verified 08/28/17 09:42) Nausea Sulfa (Sulfonamide Antibiotics) Ad verse Reaction (Verified 08/28/17 09:42) Nausea Medications TraMADol [Ultram] 100 mg PO BID 09/30/13 [History Confirmed 03/20/17] Bergamot [[place] Bergamot] 02/12/17 [History] BusPIRone [Buspar] 15 m [...] Days #20 cap 08/28/17 [Rx Confirmed 08/28/17] [facility] Medical History Hyperlipidemia (Chronic) Acute diverticulitis (Acute) [...] Result: Comments: See Note; NOTES: [facility] [address] [place] [address] OFFICE VISIT Date of Service: 08/28/17 MR#: [id number] Acct: [id number] Name: BRANDIE KUO Rk Rep #: [id number] : 1945 Provider: Carmine ELDER Age/Sex: 72/F Location: [facility] Status: Signed Intake Vital Signs08/28/17 Height 5 ft 1 in 08/28/17 Weight: 146 lb 08/28/17 Body Mass Index (BMI) 27.6 Intake Visit Reasons: Sinus infection Bolt Sorter Required: No Is patient in pain?: No Allergies erythromycin base Allergy (Verified 08/28/17 09:42) Rash ibuprofen [From Motrin] Allergy (Verifie d 08/28/17 09:42) Rash dicyclomine HCl [From Bentyl] Adverse Reaction (Verified 08/28/17 09:42) Nausea nitrofurantoin Adverse Reaction (Verified 08/28/17 09:42) Nausea Sulfa (Sulfonamide Antibiotics) Ad verse Reaction (Verified 08/28/17 09:42) Nausea Medications TraMADol [Ultram] 100 mg PO BID 09/30/13 [History Confirmed 03/20/17] Bergamot [[place] Bergamot] 02/12/17 [History] BusPIRone [Buspar] 15 m [...] (CAD), BILAT Result: Comments: See Note; NOTES: [facility] Imaging Services [address] [place] [address] SCREENING MAMM (CAD), BILAT MR#: [id number] Acct: [id number] Name: BRANDIE KUO Rep #: [id number] : 1945 F 71 From: Zbigniew Carroll MD PCP: Camryn Faith DO Status: REG CLI Study: SCREENING MAMM (CAD), BILAT Date of Exam: 04/16/17 Exam# [id number] Ordering Dr: Camryn Faith DO MAMMOGRAPHY - [...] delay biopsy of a clinically suspicious abnormality. [id number] Electronically Signed: Zbigniew Carroll MD at 8:58 EDT Tel [phone], Service support , CC: Camryn Faith DO Roof Truss Builder: Signed 15-Mar-2017 12 Lead Electrocardiogram Result: Comments: See Note; NOTES: [facility] Cardiovascular Services [address] [place] [address] EKG - SDC 03/14/1732 MR#: [id number] Acct: [id number] Name: BRANDIE KUO Rep # : [id number] : 1945 71 From: Luis Buckley MD Attending Dr: Rylan Bird MD Status: PRE IN Ordering Dr: Rylan Bird MD Date: 03/14/17 Location: [facility] Sex: F C Admitted: Test Reason : Blood Pressure : / mmHG Vent. Rate : 078 BPM Atrial Rate : 078 BPM P-R Int : 130 ms QRS Dur : 084 ms QT Int : 386 ms P-R-T Axes : 044 026 070 degrees QTc Int : 440 ms Normal sinus rhythm Low voltage Q RS Borderline ECG Confirmed by LUIS BUCKLEY ([id number]), editor sound DEENA TOUSSAINT ([id number]) on 03/15/2017 10:41:46 AM Referred By: CARLIE TEJEDA Confirmed By:LUIS BUCKLEY 03/15/17 1041 Date Luis Buckley MD CC: Luis Buckley MD; Camryn Faith DO Date Dictated: 03/14/17731 Date Transcribed: 03/14/17731 Roof Truss Builder: Signed 12-Feb-2017 Emergency Department Summary Result: Comments: See Note; NOTES: [facility] Medical Records Department [address] [place] [address] Emergency Department Summary MR#: [id number] Acct: [id number] Name: BRANDIE KUO Rep #: [id number] : 1945 71 From: Luis Garcia DO PCP: Camryn Faith DO Status: [facility] ER DATE OF SERVICE: 02/12/2017 CHIEF [...] diverticulitis. Luis kenney DO T: NTS JOB: [id number] 02/12/172224 <Electronically signed by Luis Garcia DO> Date Luis Garcia DO Cosigner Signature (If I ndicated): Date CC: Camryn Faith DO Date Dictated: 02/12/171934 Date Transcribed: 02/12/171934 Roof Truss Builder: Signed 12-Feb-2017 Discharge Instruction Result: Comments: See Note; NOTES: [facility] Medical Records Department [address] [place] [address] Discharge Instruction 02/12/171913 MR#: [id number] Acct: [id number] Name: Michelle KUO Rep #: [id number] : 1945 71 From: Luis Garcia DO [...] your Primary Care Provider. Call [facility] ([phone]) or report to the closest Emergency Room. Call 911 if necessary. 02/12/171915 <Electron ically signed by Luis Garcia DO> Date Luis Garcia DO Cosigner Signature (If Indicated): Date CC: Camryn Faith DO 12-Feb-2017 Abdomen/Pelvis W IV Cont ONLY Result: Comments: See Note; NOTES: [facility] Imaging Services [address] [place] [address] Verdana 4d Abdomen/Pelvis W IV Cont ONLY MR#: [id number] Acct: [id number] Name: ADITHYA KUO RA Beckman Rep #: [id number] : 1945 F 71 From: Gloria Whitman MD PCP: Camryn Faith DO Status: REG ER Study: Abdomen/Pelvis W IV Cont ONLY Date of Exam: 02/12/17 Exam# [id number] Ordering Dr: Palak Garcia DO STUDY: CT [...] techniques were used for this CT. COMPARISON: [facility] 2015 CT scan abdomen and pelvis FINDINGS: [...] CC: Luis Garcia DO; Camryn Faith DO Roof Truss Builder: Signed 03-May-2016 Transvaginal Non- Result: Comments: See Note; NOTES: [facility] Imaging Services [address] [place] [address] Verdana 4d Transvaginal Non- MR#: [id number] Acct: [id number] Name: BRANDIE KUO Rep #: [id number] : 1945 F 70 From: Zbigniew Carroll MD PCP: Royal Perea Status: REG CLI Study: Transvaginal Non- Date of Exam: 05/03/16 Exam# [id number] Ordering Dr: Royal Perea STUDY: ULTRASOUND OF [...] Zbigniew Carroll MD at 11:16 EDT Tel [phone], Service support [phone], CC: Royal Perea Roof Truss Builder: Signed 03-May-2016 Abdomen Complete Result: Comments: See Note; NOTES: [facility] Imaging Services [address] [place] [address] Verdana 4d Abdomen Complete MR#: [id number] Acct: [id number] Name: BRANDIE KUO Rep #: [id number] : 1945 F 70 From: Zbigniew Carroll MD PCP: Royal Perea Status: REG CLI Study: Abdomen Complete Date of Exam: 05/03/16 Exam# [id number] Ordering Dr: Royal Perea STUDY: ABDOMINAL ULTRASOUND [...] Zbigniew Carroll MD at 11:14 EDT Tel [phone], Service support [phone], CC: Royal Perea Roof Truss Builder: Signed 03-May-2016 Pelvic (Non ) Result: Comments: See Note; NOTES: [facility] Imaging Services [address] [place] [address] Verdana 4d Pelvic (Non ) MR#: [id number] Acct: [id number] Name: AYAANBRANDIERA Rk Cabrera p #: [id number] : 1945 F 70 From: Zbigniew Carroll MD PCP: Royal Perea Status: REG CLI Study: Pelvic (Non ) Date of Exam: 05/03/16 Exam# [id number] Ordering Dr: Royal Perea STUDY: ULTRASOUND OF [...] Zbigniew Carroll MD at 11:16 EDT Tel [phone], Service support [phone], CC: Royal Perea Roof Truss Builder: Signed 15-Feb-2016 Bilat Scrn Digital AND CAD Result: Comments: See Note; NOTES: [facility] Imaging Services [address] [place] [address] Verdana 4d Bilat Scrn Digital AND CAD MR#: [id number] Acct: [id number] Name: BRANDIE KUO Rep #: [id number] : 1945 F 70 From: Zbigniew Carroll MD PCP: Royal Perea Status: REG CLI Study: Bilat Scrn Digital AND CAD Date of Exam: 02/15/16 Exam# [id number] Ordering D r: Yobany, Kylie DO MAMMOGRAPHY [...] delay biopsy of a clinically suspicious abnormality. [id number] Electronically Shaina d: Zbigniew Carroll MD at 9:50 EDT Tel [phone], Service support [phone], CC: Kylie Haywood DO; Royal Perea Roof Truss Builder: Signed 15-Feb-2016 Dexa Bone Density/Append Skel Result: Comments: See Note; NOTES: [facility] Imaging Services [address] [place] [address] Verdana 4d Dexa Bone Density/Append Skel MR#: [id number] Acct: [id number] Wilder e: BRANDIE KUO Rep #: [id number] : 1945 F 70 From: Zbigniew Carroll MD PCP: Royal Perea Status: REG CLI Study: Dexa Bone Density/Append Skel Date of Exam: 02/15/16 Exam# [id number] Orde ring Dr: Kylie Haywood DO STUDY: [...] Zbigniew Carroll MD at 9:26 EDT Tel [phone], Service support [phone], CC: Kylie Haywood DO; Royal Perea Roof Truss Builder: Signed 02-Feb-2016 Carotid Duplex Ultrasound Result: Comments: See Note; NOTES: [facility] Cardiovascular Services [address] [place] [address] Carotid Duplex Ultrasound 02/01/16 0856 MR#: [id number] Acct: [id number] Name: BRANDIE KUO Rep #: [id number] : 1945 70 From: Ej Ortiz MD [...] the left vertebral artery. Procedure Carotid Duplex 07375. The exam was diagno stic. Exam performed in department. Interpretation Summary Mild (<50%) stenosis right extracranial internal carotid. Mild (<50%) stenosis left extracranial internal carotid. Flow wi thin the vertebral arteries is antegrade bilaterally. Ordering Physician: Kylie Haywood By: Blue Joseph RVT 02/02/16 1123 Date Ej Ortiz MD CC: Kylie Haywood DO Date Dictated: 02/01/16 0856 Date Transcribed: 02/02/16 1123 Roof Truss Builder: Signed 25-Jan-2016 EKG (57304) Comments: ekg showed normal sinus rhythym, normal axis, no acute st/t wave changes Result: [MEASUREMENTS ANALYSIS] Date of Test: 01/25/2016 10:38:09; Heart Rate: 73; LA Interval: 132; QRS: 95; QT Interval: 408; Corrected QT Interval (QTc): 430; P Wave Secor: 52; QRS Wave Secor: 20; T Wave Secor: 61; Blood Pressure: 124/68 [ECG DIAGNOSTIC STATEMENTS] Date of Test: 01/25/2016 10:38:09; Summary: Sinus Rhythm Low voltage in limb leads. ABNORMAL 28-Oct-2015 Abdomen/Pelvis WITH Contrast Result: Comments: See Note; NOTES: [facility] Imaging Services [address] [place] [address] Verdana 4d Abdomen/Pelvis WITH Contrast MR#: [id number] Acct: [id number] Name : BRANDIE KUO Rep #: [id number] : 1945 F 70 From: Zbigniew Carroll MD PCP: Kylie Haywood DO Status: REG CLI Study: Abdomen/Pelvis WITH Contrast Date of Exam: 10/28/15 Exam# [id number] Orde [facility] Dr: Kylie Haywood DO STUDY: CT ABDOMEN [...] Zbigniew Carroll MD at 15:09 EST Tel [phone], Service support [phone], CC: Kylie Haywood DO Roof Truss Builder: Signed 25-Oct-2015 L/S Spine Min 4 Views Result: Comments: See Note; NOTES: [facility] Imaging Services [address] [place] [address] Verda 4d L/S Spine Min 4 Views MR#: [id number] Acct: [id number] Name: BRANDIE KUO Rep #: [id number] : 1945 F 70 From: Zbigniew Carroll MD PCP: Kylie Haywood DO Status: REG CLI Study: L/S Spine Min 4 Views Date of Exam: 10/25/15 Exam# [id number] Ordering Dr: Kylie Haywood DO STUDY: X-RAY [...] Zbigniew Carroll MD at 8:59 EST Tel [phone], Service support [phone], RAD/L/S Spine Min 4 Views IMPRESSION: Degenerative changes of the spine, as detailed a zabrina. Electronically Signed: Zbigniew Carroll MD at 8:59 EST Tel [phone], Service support [phone], CC: Kylie Haywood DO Roof Truss Builder: Signed 17-Jun-2015 Operative Report Result: Comments: See Note; NOTES: [facility] Medical Records Department [address] [place] [address] Operative Report MR#: [id number] Acct: [id number] Name: BRANDIE KUO Rep #: [id number] : 1945 70 From: Rylan Bird MD [...] years. Rylan Bird MD T: NTS JOB: [id number] 06/17/15 0548 <Electronically signed by Rylan Bird MD> Date Rylan hidalgo Signature (If Indicated): Date CC: Kylie Haywood DO; Rylan Bird MD Date Dictated: 06/16/15833 Date Transcribed: 06/16/15833 Roof Truss Builder: Signed 15-Feb-2015 Carotid Duplex Ultrasound Result: Comments: See Note; NOTES: [facility] Cardiovascular Services [address] [place] [address] Carotid Duplex Ultrasound 02/15/15 1339 MR#: [id number] Acct: [id number] Na me: BRANDIE KUO Rep #: [id number] : 1945 69 From: Ej Ortiz MD [...] the left vertebral artery. Procedure Carotid Duplex 80372. The exam was diagnostic. Exam performed in [...] Date Dictated: 02/15/15 1339 Date Transcribed: 02/15/151944 Roof Truss Builder: Signed 09-Feb-2015 Bilat Scrn Digital AND CAD Result: Comments: See Note; NOTES: [facility] Imaging Services [address] [place] [address] Breast Imaging Report MR#: [id number] Acct: [id number] Name: BRANDIE KUO Rep #: [id number] : 1945 F 69 From: Zbigniew Carroll MD PCP: Kylie Haywood DO Status: REG CLI Study: Logan Roperjeff Digital AND CAD Date of Exam: 02/09/15 Exam# [id number] Ordering Dr: Kylie Haywood DO MAMMOGRAPHY - [...] Zbigniew pop MD at 10:49 EDT Tel [phone], Service support [phone], CC: Kylie Haywood DO; EVELYN PATEL Roof Truss Builder: Signed 05-Sep-2014 Discharge Instruction Result: Comments: See Note; NOTES: [facility] Medical Records Department [address] [place] [address] Discharge Instruction 09/05/14 0648 MR#: [id number] Acct: [id number] Name: BRANDIE KUO Rep #: [id number] : 1945 69 From: Kamran Swartz MD [...] Discharge Instruction Result: Comments: See Note; NOTES: [facility] Medical Records Department [address] [place] [address] Discharge Instruction 09/05/14 0647 MR#: [id number] Acct: [id number] Name: BRANDIE KUO Rep #: [id number] : 1945 69 From: Kamran Swartz MD [...] without Cont Result: Comments: See Note; NOTES: [facility] Imaging Services [address] [place] [address] CAT Scan Report MR#: [id number] Acct: [id number] Name: BRANDIE KUO Rep #: [id number] : 1945 F 69 From: Viviana Robles PCP: Kylie Haywood DO Status: REG ER Study: Abdomen/Pelvis without Cont Date of Exam: 09/05/14 Exam# [id number] Ordering Dr: Kamran Swartz MD STUDY: CT [...] malignancy, followup with colonoscopy is recommended at [facility] nically appropriate time. 2. Non-obstructing small right renal calculus. 3. Degenerative lumbosacral spondylosis. Electronically Signed: Brooks Robles MD at 6:33 EST Tel , Service support [phone], CC: Kylie Haywood DO; Kamran Swartz MD Roof Truss Builder: Signed 16-Jan-2014 Bilat Scrn Digital & CAD Result: Comments: See Note; NOTES: [facility] Imaging Services [address] [place] [address] Breast Imaging Report MR#: [id number] Acct: [id number] Name: BRANDIE KUO Rep #: [id number] : 1945 F 68 From: Zbigniew Carroll MD PCP: Kylie Haywood DO Status: REG CLI Exam# [id number] Ordering Dr: Kylie Haywood DO MAMMOGRAPHY - [...] Zbigniew Carroll MD at 8:42 EDT Tel [phone], Service support [phone], CC: Kylie Haywood DO Roof Truss Builder: Signed 14-Oct-2013 Ribs Uni Min 3V w/PA Chest Result: Comments: See Note; NOTES: [facility] Imaging Services [address] [place] [address] Radiology Report MR#: [id number] Acct: [id number] Name: BRANDIE KUO Rep #: [id number] : 1945 F 68 From: Zbigniew Carroll MD PCP: Kylie Haywood DO Status: REG CLI Study: Ribs Uni Min 3V w/PA Chest Date of Exam: 10/14/13 Exam# [id number] Ordering Dr: Kylie Haywood DO STUD Y: [...] M.D. at 15:39 EST , Service support [phone], CC: Kylie Haywood DO Roof Truss Builder: Signed 15-Jul-2013 Dexa Bone Density Study (HP) Result: Comments: See Note; NOTES: [facility] Imaging Services [address] [place] [address] Bone Density Report MR#: [id number] Acct: [id number] Name: BRANDIE KUO Rep #: [id number] : 1945 F 68 From: Zbigniew Carroll MD PCP: Status: REG CLI Study: Dexa Bone Density Study (HP) Date of Exam: 07/15/13 Exam# [id number] Ordering Dr: Kylie Haywood DO STUDY: DUAL [...] M.D. July 042012 at 8:59:54 AM EST [phone] Electronically Signed GP/GP If you are the referring physician and would like to consult with the radiologist who provided this interpretation, please conta mikhail Carroll M.D. at [phone]. If this radiologist is unavailable, you will be directed to another radiologist to assist. If you are a patient with a question regarding this report, pl ease contact your referring physician directly. Professional Interpretation Provided By: [email or web address], Phone , These documents contain legally protected [...] of these documents. CC: Kylie Haywood DO Roof Truss Builder: Signed Immunization Name Dates Details Influenza (3 years and up) on: 25-Jun-2007 Comments: given in left deltoid, 0.5cc, lot#[id number], exp.08 WF Influenza (3 years and up) [...] Value Details :02 Blood Glucose , Office (13698) Blood Glucose , Office 102 (Normal) :02 HgA1C , Office (84181) HgA1C , Office 5.5 % (Normal) Range: 4.6 - 7.1 :27 CBC W/Diff, Automated Comments: [facility] [address] [place], [place], [address] Absolute Lymph 0.97 {X10_3/ul} (Normal) Range: 0.83-4.51 [...] 4.2-5.4 WBC 5.2 K/mm3 (Normal) Range: 4.4-11.0 1-Rah-525115:27 Comprehensive Metabolic Profil Comments: [facility] [address] [place], [place], [id number] GAP 9 (Normal) Range: 5-15 CO2 28.0 [...] Comments: Please note revised GLUCOSE reference range yowfypsst60/02/2018. 63-Njq-52916:3 EGD ([facility] SITE) See Note (Normal) Comments: [facility] [address] [place], [address] 0 Comments: Patient: BRANDIE KUO : 1945 (73/F) Acct Num: [id number] Phys: Rylan Bird MD Unit Num: [id number] Loc: EN Specimen: [id number] Received: 05/21/1820 Spec Type: EGD B IOPSY TISSUES TISSUES: A. Gastric mucous membrane B. Esophageal mucous membrane C. Esophageal mucous membrane COMMENT The results of immunohisto chemistry for Helicobacter pylori will be reported separately ([id number]). GROSS DESCRIPTION A - Received in fixative [...] one cassette. / SJ:aga 05/21/18 TC:3 CPT: 61179 x3 HEADER OPERATION: Colonoscopy , EGD (MOD) [...] of inflammation. AM:aga 05/22/18 Signed ___ Edgard [facility] 05/22/18 <signature on file> 04-Nhn-64111:0 IMMUNOHISTOCHEMISTRY See Note (Normal) Comments: [facility] [address] [facility] [place], [place], [address] 0 Comments: Patient: BRANDIE KUO : 1945 (73/F) Acct Num: [id number] Phys: Pelon MONROE,Rylan Unit Num: [id number] Loc: EN Specimen: [id number] Received: 05/22/18 - 1430 Spec Type: IMMUN O TISSUES TISSUES: A. Stomach, NOS SPECIMEN INFORMATION: Tissue Source: A Antral biopsy Clinical Info: GERD, esophagitis, screening Specimen Number: [id number] CPT code: 52077 METHODOLOGY: Deparaffinized sections of prefer/formalin- fixed tissue [...] developed and their performance characteristics determined by [facility]. They may not have been cleared or approved by the U.S. Food and Drug Administration. The FDA has determined that such clearance or approval is not necessary. INTERPRETATION: A. Antral biopsy: Negative for Helicobacter pylori organisms. AM:aga 05/24/18 PHYSICIAN AND INSTITUTION [place] [address] Sign ed Edgard Pipe 05/24/18 <signature on file> :18 C-REACTIVE PROTEIN (89218) Comments: PATIENT NOT FASTINGPERFORMED BY: [facility] Eymeil3870 [facility] [id number] C-Reactive Protein, Quant 4.9 mg/L (Normal) Range: 0.0-4.9 :18 ESR-F (SED RATE ERYTHROCYTE - Comments: PATIENT NOT FASTINGPERFORMED BY: [facility] Aliswz2958 [facility] [id number] FEMALE) (96683) Sedimentation Rate-Westergren 24 mm/h (Normal) Range: 0-40 :18 LIPASE (96824) Comments: PATIENT NOT FASTINGPERFORMED BY: [facility] Vxyhpk4966 [facility] [id number] Lipase 76 U/L (Normal) Range: 14-85 :18 AMYLASE (26534) Comments: PATIENT NOT FASTINGPERFORMED BY: [facility] Cxsjih0782 [facility] [id number] Amylase 111 U/L (Normal) Range: 31-124 :18 TSH (39597) Comments: PATIENT NOT FASTINGPERFORMED BY: [facility] Yvghog7273 [facility] [id number] TSH 3.730 {uIU/mL} (Normal) Range: 0.450-4.500 :18 T4, FREE (THYROXINE) (42692) Comments: PATIENT NOT FASTINGPERFORMED BY: [facility]CoRobert [facility] at HamiltonXkkcuf8005 [facility] [id number] T4,Free(Direct) 0.84 ng/dL (Normal) Range: 0.82-1.77 :18 T3, FREE (TRIDOTHYRONINE) (79489) Comments: PATIENT NOT FASTINGPERFORMED BY: LabCoRobert [facility] at HamiltonNfbeav9714 [facility] [id number] Triiodothyronine (T3), Free 2.7 pg/mL (Normal) Range: 2.0-4.4 :13 HgA1C , Office (02034) HgA1C , Office 5.8 % (Normal) Range: 4.6 - 7.1 :13 Blood Glucose , Office (36883) Blood Glucose , Office 98 (Normal) :31 CBC W/Diff, Automated Comments: [facility] [address], [place], [address] Absolute Lymph 0.71 {X10_3/ul} (Abnormal) Range: 0.83-4.51 [...] Range: 4.4-11.0 04-Apr-20189:31 Comprehensive Metabolic Profil Comments: [facility] [address] [place], [address] GAP 10 (Normal) Range: 5-15 CO2 27.0 [...] Comments: Please note revised GLUCOSE reference range duyyccegt60/02/2018. 20-Pnz-47078:29 CBC W/Diff, Automated Comments: [facility] [address] [place], [place], [phone] Absolute Lymph 0.84 {X10_3/ul} (Normal) Range: 0.83-4.51 [...] 4.2-5.4 WBC 5.8 K/mm3 (Normal) Range: 4.4-11.0 13-Zfo-24553:29 Comprehensive Metabolic Profil Comments: [facility] [address] [place], [place], [address] GAP 5 (Normal) Range: 5-15 CO2 30.0 [...] Comments: Please note revised GLUCOSE reference range vainkkxch87/02/2018. 72-Wyr-72265:14 METABOLIC PANEL, COMPREHENSIVE Comments: PATIENT WAS FASTINGPERFORMED BY: LabCoRobert Wood Johnson [facility] at HamiltonTrsffn0632 [facility] [id number] (56482) ALT (SGPT) 26 [iU]/L (Normal) Range: 0-32 [...] 8-27 Glucose 93 mg/dL (Normal) Range: 65-99 55-Vaf-43894:14 CBC, PLATELETS & AUT DIFF Comments: PATIENT WAS FASTINGPERFORMED BY: [facility] Pftehx4875 [facility] [id number] (77641) Immature Grans (Abs) 0.0 {x10E3/uL} (Normal) Range: [...] 3.77-5.28 WBC 5.3 {x10E3/uL} (Normal) Range: 3.4-10.8 97-Mat-69002:14 LIPID PANEL (34685) Comments: PATIENT WAS FASTINGPERFORMED BY: Cupid-LabsRobert Wood Johnson University Hospital at HamiltonXuhold6884 [facility] [id number] LDL/HDL Ratio 4.7 {ratio} (Abnormal) Range: 0.0-3.2 [...] 295 mg/dL (Abnormal) Range: 100-199 :14 CALCIFEDIOL (56373) Comments: PATIENT WAS FASTINGPERFORMED BY: [employer] Dgpebr8127 [facility] [id number] Vitamin D, 25-Hydroxy 75.8 ng/mL (Normal) Range: 30.0-100.0 Comments: Vitamin D deficiency has been defined by the [place] of[place]icine and an Endocrine Society practice guideline as alevel of serum 25-OH vitamin D less than 20 ng/mL (1,2).The Endocrine Society went on to further define vitamin Dinsufficiency as a level between 21 and 29 ng/mL (2).1. IOM ([place] of Medicine). 2010. Dietary reference intakes for calcium and D. Day [place]: The National Academies Press.2. Micky RAWLS, Yohana COBURN, Kennedy PAL, et al. Evaluation, treatment, and prevention of vitamin D deficiency: an Endocrine Society clinical practice guideline. JCEM. 2010; 96(7):1911-30. 01-Gfv-259154:52 CBC W/Diff, Automated Comments: [facility] [address] [place], [phone] Absolute Lymph 0.91 {X10_3/ul} (Normal) Range: 0.83-4.51 [...] 4.2-5.4 WBC 4.7 K/mm3 (Normal) Range: 4.4-11.0 54-Hhb-820509:52 Comprehensive Metabolic Profil Comments: [facility] [address] [place], [phone] GAP 6 (Normal) Range: 5-15 CO2 29.0 [...] A.D.A. criteria.Please note revised GLUCOSE reference range tebqnrvdd97/02/2018. 0-Yid-805399:09 HgA1C , Office (50034) HgA1C , Office 5.6 % (Normal) Range: 4.6 - 7.1 :15 CBC W/Diff, Automated Comments: [facility] [address] [place], [place], [address] Absolute Lymph 0.70 {X10_3/ul} (Abnormal) Range: 0.83-4.51 [...] 4.2-5.4 WBC 3.5 K/mm3 (Abnormal) Range: 4.4-11.0 00-Vup-14323:15 Comprehensive Metabolic Profil Comments: [facility] [address] [place], [address] GAP 7 (Normal) Range: 5-15 CO2 29.0 mmol/L (Normal) Range: 21.0-32.0 CL 106 mmol/L (Normal) Range: 98-107 K 3.8 mmol/L (Normal) Range: 3.5-5.1 NA 142 mmol/L (Normal) Range: 136-145 T BILI 0.40 mg/dL (Normal) Range: 0.20-1.00 ALT 38 U/L (Normal) Range: 13-56 Comments: Please note revised ALT reference range jyrninydt09/28/2018. ALK P 74 U/L (Normal) Range: 45-117 [...] Comments: Please note revised GLUCOSE reference range gphebuser70/02/2018. 36-Sff-58456:44 VITAMIN B-12 (CYANOCOBALAMIN) Comments: PATIENT WAS FASTINGPERFORMED BY: [employer]6370 [facility] [id number] (51606) Vitamin B12 575 pg/mL (Normal) Range: 232-1245 07-Ddk-13454:44 METABOLIC PANEL, COMPREHENSIVE Comments: PATIENT WAS FASTINGPERFORMED BY: [employer]6370 [facility] [id number] (60253) ALT (SGPT) 30 [iU]/L (Normal) Range: 0-32 [...] 8-27 Glucose 86 mg/dL (Normal) Range: 65-99 47-Cko-87076:44 CBC W/AUTO DIFF WBC (70934) Comments: PATIENT WAS FASTINGPERFORMED BY: LabFormerly [facility]6370 [facility] [id number] Immature Grans (Abs) 0.0 {x10E3/uL} (Normal) Range: [...] 3.77-5.28 WBC 5.5 {x10E3/uL} (Normal) Range: 3.4-10.8 19-Dgy-89613:44 LIPID PANEL (05776) Comments: PATIENT WAS FASTINGPERFORMED BY: Cupid-LabsRobert Wood Johnson [facility] Hospital at HamiltonSqabbv2894 [facility] [id number] LDL/HDL Ratio 3.9 {ratio_units} (Abnormal) Range: 0.0-3.2 Comments: LDL/HDL Ratio Men Women 1/2 Avg.Risk 1.0 1.5 Av g.Risk 3.6 3.2 2X Avg.Risk 6.2 5.0 3X Avg.Risk 8.0 6.1 LDL Cholesterol Calc 177 mg/dL (Abnormal) Range: 0-99 VLDL Cholesterol Rocky 54 mg/dL (Abnormal) Range: 5-40 HDL Cholesterol 45 mg/dL (Normal) Triglycerides 271 mg/dL (Abnormal) Range: 0-149 Cholesterol, Total 276 mg/dL (Abnormal) Range: 100-199 88-Wqg-54443:44 CALCIFIDIOL (44655) VIT D 25 Comments: PATIENT WAS FASTINGPERFORMED BY: [facility]6370 [facility] [id number] Vitamin D, 25-Hydroxy 38.1 ng/mL (Normal) Range: 30.0-100.0 Comments: Vitamin D deficiency has been defined by the [place] of[place]icine and an Endocrine Society practice guideline as alevel of serum 25-OH vitamin D less than 20 ng/mL (1,2).The Endocrine Society went on to further define vitamin Dinsufficiency as a level between 21 and 29 ng/mL (2).1. IOM ([place] of Medicine). 2010. Dietary reference intakes for calcium and D. Day [place]: The National Academies Press.2. Micky MF, Yohana NC, Kennedy PAL, et al. Evaluation, treatment, and prevention of vitamin D deficiency: an Endocrine Society clinical practice guideline. JCEM. 2010; 96(7):1911-30. :51 HgA1C , Office (72101) HgA1C , Office 5.6 % (Normal) Range: 4.6 - 7.1 :53 CBC W/Diff, Automated Comments: [facility] [address] [place], [place], [phone] Absolute Lymph 0.78 {X10_3/ul} (Abnormal) Range: 0.83-4.51 [...] Range: 4.4-11.0 :53 Comprehensive Metabolic Profil Comments: [facility] [address] [place], [address] GAP 8 (Normal) Range: 5-15 CO2 27.0 [...] 7-18 GLU 90 mg/dL (Normal) Range: 70-110 42-Twq-69958:48 LIPID PANEL (29606) Comments: PATIENT WAS FASTINGPERFORMED BY: CB [facility] Fzgopw9635 [facility] [id number] BY: BN [facility] [address] [id number] LDL/HDL Ratio 4.5 {ratio_units} (Abnormal) Range: 0.0-3.2 [...] D Hydroxy Comments: PATIENT WAS FASTINGPERFORMED BY: [employer] Fwjvdi6968 [address] [facility] [place] [id number] BY: [employer] [id number] ([address]) Vitamin D, 25-Hydroxy 68.0 ng/mL (Normal) Range: 30.0-100.0 Comments: Vitamin D deficiency has been defined by the [place] of[facility] Oste[facility] Cliniccine and an Endocrine Society practice guideline as alevel of serum 25-OH vitamin D less than 20 ng/mL (1,2).The Endocrine Society went on to further define vitamin Dinsufficiency as a level between 21 and 29 ng/mL (2).1. IOM ([place]). 2010. Dietary reference intakes for calcium and D. Day [place]: The National Academies Press.2. Micky MF, Yohana COBURN, Kennedy PAL, et al. Evaluation, treatment, and prevention of vitamin D deficiency: an Endocrine Society clinical practice guideline. JCEM. 2010; 96(7):1911-30. :48 FERRITIN (59021) Comments: PATIENT WAS FASTINGPERFORMED BY: [employer] Mxspsd4086 [facility] [place] [id number] BY: [employer] [id number] Ferritin, Serum 20 ng/mL (Normal) Range: 15-150 :48 IRON BINDING CAPACITY Comments: PATIENT WAS FASTINGPERFORMED BY: Fredio LabFRESS Daigka0696 [address] [facility] [place] [id number] BY: [employer] [id number] (TIBC) (58167) Iron Saturation 10 % (Abnormal) Range: 15-55 Iron, Serum 43 ug/dL (Normal) Range: 27-139 UIBC 376 ug/dL (Abnormal) Range: 118-369 Iron Bind.Cap.(TIBC) 419 ug/dL (Normal) Range: 250-450 76-Bnr-78601:48 Methymalonic Acid, Serum Comments: PATIENT WAS FASTINGPERFORMED BY: [employer]versions70 [address] [facility] [id number] BY: [employer] Ffditocudm4735 [facility] [id number] (52295) Methylmalonic Acid, Serum 371 nmol/L (Normal) Range: 0-378 40-Rpf-68688:48 VITAMIN B-12 (CYANOCOBALAMIN) Comments: PATIENT WAS FASTINGPERFORMED BY: [employer]versions70 [address] [facility] [id number] BY: [employer] Lbpwsxexet1260 [facility] [id number] (41882) Vitamin B12 511 pg/mL (Normal) Range: 211-946 Comments: Effective August 06, 2017 the reference interval for Vitamin B12 will be changing to: 232-1245 pg/mL. 57-Bet-949108:27 Protein Electro, Random Comments: PATIENT NOT FASTINGPERFORMED BY: [employer]6370 [facility] [id number] BY: [employer] [id number] Urine Please note: SPRCS (Normal) Comments: Protein electrophoresis scan will follow via computer, mail, orcourier delivery. M-Geraldo, % Not Observed % (Normal) Gamma Globulin, U 24.5 % (Normal) Beta Globulin, U 26.3 % (Normal) Axlsm-5-Svcjqjzz, U 17.3 % (Normal) Wipja-6-Ujkiktou, U 7.0 % (Normal) Albumin, U 24.9 % (Normal) Protein,Total,Urine <4.0 mg/dL (Normal) Comments: Verified by repeat analysis 09-Oia-553819:27 Soluble Transferrin Comments: PATIENT NOT FASTINGPERFORMED BY: LabEncompass Media Fiukcg6862 [facility] [id number] BY: [address] [id number] Receptor (34298) Soluble Transferrin Receptor 24.6 nmol/L (Normal) Range: 12.2-27.3 00-Pcu-326232:27 WILLIAM TEST, DIRECT Comments: PATIENT NOT FASTINGPERFORMED BY: [facility] Zlufcc7876 [address] [id number] BY: [address] [id number] ([address]019) William', Direct Negative (Normal) 23-Tus-467587: FOLIC ACID SERUM (86485) Comments: PATIENT NOT FASTINGPERFORMED BY: [employer] Kddenh0369 [facility] [id number] BY: [address] [id number] Folate (Folic Acid), Serum >20.0 ng/mL (Normal) Comments: A serum folate concentration of less than 3.1 ng/mL isconsidered to represent clinical deficiency. 49-Quj-416961:27 Methymalonic Acid, Serum Comments: PATIENT NOT FASTINGPERFORMED BY: [employer] Ujraef0112 [facility] [id number] BY: [address] [id number] (27317) Methylmalonic Acid, Serum 554 nmol/L (Abnormal) Range: 0-378 38-Xyc-380037:27 VITAMIN B-12 Comments: PATIENT NOT FASTINGPERFORMED BY: [facility] Xcnnxl5889 [facility] [id number] BY: [address] [id number] (CYANOCOBALAMIN) (32837) Vitamin B12 386 pg/mL (Normal) Range: 211-946 56-Rtw-324085:27 RETICULOCYTE COUNT MANUL Comments: PATIENT NOT FASTINGPERFORMED BY: [place] 4127470 [facility] [id number] BY: [address] [id number] (46077) Reticulocyte Count 1.4 % (Normal) Range: 0.6-2.6 64-Rdw-372968:27 LDH (LD) (LACTATE Comments: PATIENT NOT FASTINGPERFORMED BY: [place] 4127470 [facility] [id number] BY: [address] [id number] DEHYDROGENASE) (92500) LDH 202 [iU]/L (Normal) Range: 119-226 75-Tdg-420856:27 IRON BINDING CAPACITY Comments: PATIENT NOT FASTINGPERFORMED BY: [address] [id number] BY: [address] [id number] (TIBC) (26543) Iron Saturation 6 % (Abnormal) Range: 15-55 Iron, Serum 26 ug/dL (Abnormal) Range: 27-139 UIBC 394 ug/dL (Abnormal) Range: 118-369 Iron Bind.Cap.(TIBC) 420 ug/dL (Normal) Range: 250-450 43-Men-939491:27 FERRITIN (61649) Comments: PATIENT NOT FASTINGPERFORMED BY: [place] 4127470 [facility] [id number] BY: [address] [id number] Ferritin, Serum 20 ng/mL (Normal) Range: 15-150 13-Zej-024537:27 CBC, PLATELETS & AUT DIFF Comments: PATIENT NOT FASTINGPERFORMED BY: [address] [id number] BY: [address] [id number] (85444) Immature Grans (Abs) 0.0 {x10E3/uL} (Normal) Range: [...] 3.77-5.28 WBC 5.1 {x10E3/uL} (Normal) Range: 3.4-10.8 55-Ayz-915388:27 Serum Protein Comments: PATIENT NOT FASTINGPERFORMED BY: [facility] Ftsoha8213 [facility] [id number] BY: [facility] [address] [id number] Electrophoresis (SPEP) (83054) Please note: SPRCS (Normal) Comments: Protein electrophoresis scan will follow via computer, mail, orcourier delivery. A/G Ratio 1.2 (Normal) Range: 0.7-1.7 Globulin, Total 3.3 g/dL (Normal) Range: 2.2-3.9 M-Geraldo Not Observed g/dL (Normal) Gamma Globulin 0.8 g/dL (Normal) Range: 0.4-1.8 Beta Globulin 1.3 g/dL (Normal) Range: 0.7-1.3 Fhhon-8-Chcfiroj 1.0 g/dL (Normal) Range: 0.4-1.0 Dhisb-9-Zjxtxzdv 0.2 g/dL (Normal) Range: 0.0-0.4 Albumin 3.8 g/dL (Normal) Range: 2.9-4.4 Protein, Total, Serum 7.1 g/dL (Normal) Range: 6.0-8.5 :58 CBC W/Diff, Automated Comments: [facility] [address] [place], [place], [address] Absolute Lymph 0.80 {X10_3/ul} (Abnormal) Range: 0.83-4.51 [...] Range: 4.4-11.0 :58 Comprehensive Metabolic Profil Comments: [facility] [address] [place], [place], [phone](270) GAP 7 (Normal) Range: 5-15 CO2 30.0 [...] 70-110 :35 Basic Metabolic Profile (BMP) Comments: [facility] [address] [place], [place], [address] GAP 9 (Normal) Range: 5-15 CO2 28.0 [...] :35 CBC-Complete Blood Cnt No Diff Comments: [facility] [address] [place], [place], [address] MPV 9.6 fL (Normal) Range: 6.2-12.0 PLT [...] Range: 4.4-11.0 :35 Partial Thromboplast Time Comments: [facility] [address] [place], [place], [phone] PTT 27.3 s (Normal) Range: 24.1-36.2 :35 Prothrombin Time w/INR Comments: [facility] [address] [place], [place], [address] INR 1.0 (Normal) PROTIME 12.7 s (Normal) Range: 11.7-14.9 01-Stl-356183:30 Urinalysis, Complete Comments: Order Date: 02/12/17How was Urine Obtained? [facility] [address] [place], [place], [address] MUCUS, URINE 0 SEEN {/hpf} (Normal) BACTERIA [...] CLARITY Sl. Cloudy (Normal) COLOR Yellow (Normal) 05-Owv-382088:45 Basic Metabolic Profile (BMP) Comments: [facility] [address] [place], [place], [address] GAP 10 (Normal) Range: 5-15 CO2 27.0 [...] 7-18 GLU 100 mg/dL (Normal) Range: 70-110 01-Wiy-671874:45 CBC W/Diff, Automated Comments: [facility] [address] [place], [address] Absolute Lymph 0.94 {X10_3/ul} (Normal) Range: 0.83-4.51 [...] 4.2-5.4 WBC 7.3 K/mm3 (Normal) Range: 4.4-11.0 53-Oqm-872102:10 URINE MAHENDRA CULTURE-IDENTIFICATN Comments: PATIENT WAS FASTINGPERFORMED BY: [facility]6370 [facility] [id number] (31235) Result 1 MUG (Normal) Comments: Mixed urogenital flora25,000-50,000 colony forming units per mL Urine Final report (Normal) Culture,Comprehensive 89-Hta-170748:10 URINALYSIS (80426) Comments: PATIENT WAS FASTINGPERFORMED BY: [facility]6370 [facility] [id number] Microscopic Examination MICNIP (Normal) Comments: Microscopic not indicated and not performed. Nitrite, Urine Negative (Normal) Urobilinogen,Semi-Qn 0.2 mg/dL (Normal) Range: 0.2-1.0 Bilirubin Negative (Normal) Occult Blood Negative (Normal) Ketones Negative (Normal) Glucose Negative (Normal) Protein Trace (Normal) WBC Esterase Negative (Normal) Appearance Clear (Normal) Urine-Color Yellow (Normal) pH 7.0 (Normal) Range: 5.0-7.5 Specific Climax 1.015 (Normal) Range: 1.005-1.030 69-Jup-517585:10 C-REACTIVE PROTEIN (32879) Comments: PATIENT WAS FASTINGPERFORMED BY: [facility]6370 [facility] [id number] C-Reactive Protein, Quant 7.7 mg/L (Abnormal) Range: 0.0-4.9 95-Hgu-339575:10 Sed Rate Erythrocyte (98009) Comments: PATIENT WAS FASTINGPERFORMED BY: [facility]6370 [facility] [id number] Sedimentation Rate-Westergren 34 mm/h (Normal) Range: 0-40 90-Vtk-825273:10 Metabolic Panel, Comprehensive Comments: PATIENT WAS FASTINGPERFORMED BY: [facility]6370 [facility] [id number] (46651) ALT (SGPT) 13 [iU]/L (Normal) Range: 0-32 [...] Glucose, Serum 93 mg/dL (Normal) Range: 65-99 56-Skz-575918:10 CBC with auto diff Comments: PATIENT WAS FASTINGPERFORMED BY: [facility]6370 [facility] [id number] Information: SRC:KORINA (45393) Hematology Comments: Note: (Normal) Comments: Verified by [...] Range: 3.4-10.8 :43 CBC W/Diff, Automated Comments: [facility] Ibrtbzarok8470 [facility] [place], [place], [address] Absolute Lymph 0.79 {X10_3/ul} (Abnormal) Range: 0.83-4.51 [...] Range: 4.4-11.0 :43 Comprehensive Metabolic Profil Comments: [facility] [address] [place], [address] GAP 7 (Normal) Range: 5-15 CO2 29.0 [...] mg/dL (Normal) Range: 70-110 :10 LIPID PANEL (05049) Comments: PATIENT WAS FASTINGPERFORMED BY: [employer]6370 [facility] [id number] LDL/HDL Ratio 4.4 {ratio_units} (Abnormal) Range: 0.0-3.2 [...] degree relatives should be collected. J Clin Pgvqfvk5195;5:133-140 LDL Cholesterol Calc 209 mg/dL (Abnormal) Range: 0-99 VLDL Cholesterol Rocky 57 mg/dL (Abnormal) Range: 5-40 HDL Cholesterol 48 mg/dL (Normal) Triglycerides 285 mg/dL (Abnormal) Range: 0-149 Cholesterol, Total 314 mg/dL (Abnormal) Range: 100-199 84-Drn-79649:10 HEPATIC FUNCTION PANEL Comments: PATIENT WAS FASTINGPERFORMED BY: AM PharmaRobert Wood [facility] at HamiltonCyuobl5874 [facility] [id number] (37913) ALT (SGPT) 13 [iU]/L (Normal) Range: 0-32 AST (SGOT) 19 [iU]/L (Normal) Range: 0-40 Alkaline Phosphatase, S 75 [iU]/L (Normal) Range: 39-117 Bilirubin, Direct 0.08 mg/dL (Normal) Range: 0.00-0.40 Bilirubin, Total 0.2 mg/dL (Normal) Range: 0.0-1.2 Albumin, Serum 4.4 g/dL (Normal) Range: 3.5-4.8 Protein, Total, Serum 6.7 g/dL (Normal) Range: 6.0-8.5 :46 LFAUE-OIOXWCLMVDA-UXZGM (58768) Comments: PATIENT WAS FASTINGPERFORMED BY: LabCoRobert Wood Johnson [facility] Hospital at HamiltonKbimmf7332 [facility] [id number] AFP, Serum, Tumor Marker 5.5 ng/mL (Normal) Range: 0.0-8.3 Comments: Carmencita ECLIA methodology :28 HgA1C , Office (34088) HgA1C , Office 5.7 % (Normal) Range: 4.6 - 7.1 :46 CBC W/AUTO DIFF WBC (35010) Comments: PATIENT WAS FASTINGPERFORMED BY: LabCoRobert Wood Johnson [facility] at HamiltonNtiotw2285 [facility] [id number] Immature Grans (Abs) 0.0 {x10E3/uL} (Normal) Range: [...] 3.77-5.28 WBC 4.4 {x10E3/uL} (Normal) Range: 3.4-10.8 88-Rtq-013290:46 METABOLIC PANEL, COMPREHENSIVE Comments: PATIENT WAS FASTINGPERFORMED BY: [facility] Yenupo1571 [facility] [id number] (95298) ALT (SGPT) 15 [iU]/L (Normal) Range: 0-32 [...] Glucose, Serum 95 mg/dL (Normal) Range: 65-99 68-Qak-765939:46 TSH (20186) Comments: PATIENT WAS FASTINGPERFORMED BY: [employer] Svmrnm8211 [facility] [id number] TSH 1.750 {uIU/mL} (Normal) Range: 0.450-4.500 15-Shx-109989:46 LIPID PANEL (11156) Comments: PATIENT WAS FASTINGPERFORMED BY: [employer] Obgvlr0054 [facility] [id number] LDL/HDL Ratio 4.7 {ratio_units} (Abnormal) Range: 0.0-3.2 [...] degree relatives should be collected. J Clin Hdeeypp1690;5:133-140 LDL Cholesterol Calc 201 mg/dL (Abnormal) Range: 0-99 VLDL Cholesterol Rocky 63 mg/dL (Abnormal) Range: 5-40 HDL Cholesterol 43 mg/dL (Normal) Triglycerides 316 mg/dL (Abnormal) Range: 0-149 Cholesterol, Total 307 mg/dL (Abnormal) Range: 100-199 85-Vhp-501657:46 CALCIFIDIOL (83467) VIT D 25 Comments: PATIENT WAS FASTINGPERFORMED BY: Cupid-LabsRobert Wood Johnson [facility] Hospital at HamiltonPolffx6578 [facility] [id number] Vitamin D, 25-Hydroxy 38.5 ng/mL (Normal) Range: 30.0-100.0 Comments: Vitamin D deficiency has been defined by the [place] of[place]icine and an Endocrine Society practice guideline as alevel of serum 25-OH vitamin D less than 20 ng/mL (1,2).The Endocrine Society went on to further define vitamin Dinsufficiency as a level between 21 and 29 ng/mL (2).1. IOM ([place] of Medicine). 2010. Dietary reference intakes for calcium and D. Day [place]: The National Academies Press.2. Micky MF, Yohana COBURN, Kennedy PAL, et al. Evaluation, treatment, and prevention of vitamin D deficiency: an Endocrine Society clinical practice guideline. JCEM. 2010; 96(7):1911-30. 88-Zpo-605828:43 CBC W/Diff, Automated Comments: [facility] [address] [place], [place], [address] Absolute Lymph 1.03 {X10_3/ul} (Normal) Range: 0.83-4.51 [...] 4.2-5.4 WBC 5.1 K/mm3 (Normal) Range: 4.4-11.0 26-Quq-274421:43 Comprehensive Metabolic Profil Comments: [facility] [address] [place], [place], [address] GAP -4 (Abnormal) Range: 5-15 CO2 29.0 [...] (Normal) Range: 70-110 :30 Culture, Miscellaneous Comments: [facility] [address] [place], [place], [address] CUM See Note (Normal) Comments: MOUTH AND TONGUE PLUS YEAST TONGUE GLOSSITIS DRY MOUTH Comments: MOUTH AND TONGUE/ PLUS YEASTMisc. CultureNo Yeast, Haemophilus, Streptococcus pneumoniae, beta-hemolytic Streptococcus or Staphyloco ccus aureus isolated. Gram StainGram Stain 2+ Epithelial cells 2+ Gram positive cocci :03 CBC W/Diff, Automated Comments: [facility] [address] [place], [place], [address] Absolute Lymph 0.88 {X10_3/ul} (Normal) Range: 0.83-4.51 [...] 4.2-5.4 WBC 5.0 K/mm3 (Normal) Range: 4.4-11.0 47-Sxl-811815:03 Comprehensive Metabolic Profil Comments: [facility] [address] [place], [place], [phone] GAP 7 (Normal) Range: 5-15 CO2 29.0 [...] 7-18 GLU 83 mg/dL (Normal) Range: 70-110 31-Nnz-63879:16 Vitamin D Hydroxy (39171) Comments: PATIENT WAS FASTINGPERFORMED BY: [facility]6370 [facility] [id number] Vitamin D, 25-Hydroxy 56.1 ng/mL (Normal) Range: 30.0-100.0 Comments: Vitamin D deficiency has been defined by the [place] ofMedicine and an Endocrine Society practice guideline as alevel of serum 25-OH vitamin D less than 20 ng/mL (1,2).The Endocrine Society went on to further define vitamin Dinsufficiency as a level between 21 and 29 ng/mL (2).1. IOM ([place] of Medicine). 2010. Dietary reference intakes for calcium and D. Day [place]: The National Academies Press.2. Micky RAWLS, Yohana COBURN, Kennedy PAL, et al. Evaluation, treatment, and prevention of vitamin D deficiency: an Endocrine Society clinical practice guideline. JCEM. 2010; 96(7):1911-30. :16 JJJCJ-VOKHGYOJUSR-GLJRM (70243) Comments: PATIENT WAS FASTINGPERFORMED BY: [facility]6370 [facility] [id number] AFP, Serum, Tumor Marker 5.3 ng/mL (Normal) Range: 0.0-8.3 Comments: Carmencita ECLIA methodology :16 METABOLIC PANEL, Comments: PATIENT WAS FASTINGPERFORMED BY: [employer] Qcrjcg7728 [facility] [id number] Information: [id number] COMPREHENSIVE (10178) ALT (SGPT) 14 [iU]/L (Normal) Range: 0-32 [...] Glucose, Serum 85 mg/dL (Normal) Range: 65-99 42-Lpf-76067:16 LIPID PANEL (83296) Comments: PATIENT WAS FASTINGPERFORMED BY: [address] [id number]; non-emergent till apt with Dr. Perea LDL/HDL [...] Cholesterol, Total 294 mg/dL (Abnormal) Range: 100-199 9-Aqh-726621:21 ANTINUCLEAR ANTIBODIES DIRECT Comments: [facility] (refer to report for specific site)refer to report for address and phone number RENUKA-DIRECT Negative (Normal) Comments: Performed at: [address] [id number] Director: Sudheer Russell PhD, Phone: [phone] 0-Xql-986705:21 CBC W/Diff, Automated Comments: [facility] [address] [place], [address] Absolute Lymph 1.13 {X10_3/ul} (Normal) [...] 4.2-5.4 WBC 5.0 K/mm3 (Normal) Range: 4.4-11.0 3-Obq-675268:21 CCP IgG Antibodies Comments: [facility] (refer to report for specific site)refer to report for address and phone number ANTI-CCP 234596 8 {units} (Normal) Range: 0-19 Comments: Negative <20 Weak positive 20 - 39 Moderate positive 40 - 59 Strong positive >59 0-Lbs-835614:21 Comprehensive Metabolic Profil Comments: [facility] [address] [place], [place], [address] GAP 7 (Normal) Range: 5-15 CO2 29.0 [...] 7-18 GLU 87 mg/dL (Normal) Range: 70-110 7-Veh-286103:21 Hep B Surface Antibodies Comments: [facility] (refer to report for specific site)refer to report for address and phone number Hep B Cecille AB Non Reactive (Normal) Comments: Non Reactive: Inconsistent with immunity, less than 10 mIU/mL Reactive: Consistent with immunity, greater than 9.9 mIU/ mL 9-Nfq-128531:21 Hepatitis B Surface Ag Comments: [facility] (refer to report for specific site)refer to report for address and phone number HB SURF AG Negative (Normal) Comments: Performed at: CB - [facility] [address] [id number] Director: Sudheer Russell PhD, Phone: [phone] at: BN - [facility] [place] [id number] Director: Kirby Fitch MD, Phone: [phone] 4-Bgk-792850:21 Hepatitis C Antibodies Comments: [facility] (refer to report for specific site)refer to report for address and phone number HEP C AB 0.2 {s/co_ratio} (Normal) Range: 0.0-0.9 Comments: Negative: < 0.8 Indeterminate: 0.8 - 0.9 Positive: > 0.9 The CDC recommends that a positive HCV antibody result be followed up with a HCV Nucleic Acid Amplification test (077164). 8-Jbs-571665:21 Rheumatoid Factor Comments: [facility] [address] [place], [address] RHEUMATOID FAC < 10.0 {IU/mL} (Normal) 85-Ovo-34709:16 CBC with auto diff Comments: PATIENT WAS FASTINGPERFORMED BY: LabCoRobert [facility] at HamiltonOzrzlf9503 [facility] [id number] Information: [id number] (44840) Immature Grans (Abs) 0.0 {x10E3/uL} (Normal) Range: [...] 3.77-5.28 WBC 5.2 {x10E3/uL} (Normal) Range: 3.4-10.8 59-Qts-86827:16 LIPID PANEL (39675) Comments: PATIENT WAS FASTINGPERFORMED BY: LabCoRobert Wood Johnson [facility] Hospital at HamiltonGmladz7924 [facility] [id number] LDL/HDL Ratio 5.7 {ratio_units} (Abnormal) Range: 0.0-3.2 [...] degree relatives should be collected. J Clin Mqbwake8592;5:133-140 LDL Cholesterol Calc 223 mg/dL (Abnormal) Range: 0-99 VLDL Cholesterol Rocky 63 mg/dL (Abnormal) Range: 5-40 HDL Cholesterol 39 mg/dL (Abnormal) Comments: According to ATP-III Guidelines, HDL-C >59 mg/dL is considered anegative risk factor for CHD. Triglycerides 313 mg/dL (Abnormal) Range: 0-149 Cholesterol, Total 325 mg/dL (Abnormal) Range: 100-199 :16 METABOLIC PANEL, COMPREHENSIVE Comments: PATIENT WAS FASTINGPERFORMED BY: LabCoNavSem[employer] Rzrrfr9326 [facility] [id number] (02762) ALT (SGPT) 13 [iU]/L (Normal) Range: 0-32 [...] (Normal) Range: 65-99 :16 Vitamin D Hydroxy (19279) Comments: PATIENT WAS FASTINGPERFORMED BY: LabCoRobert Wood Johnson [facility] Hospital at HamiltonYlnqiz8185 [facility] [id number] Vitamin D, 25-Hydroxy 35.5 ng/mL (Normal) Range: 30.0-100.0 Comments: Vitamin D deficiency has been defined by the [place] of[facility] Osteopathic Cliniccine and an Endocrine Society practice guideline as alevel of serum 25-OH vitamin D less than 20 ng/mL (1,2).The Endocrine Society went on to further define vitamin Dinsufficiency as a level between 21 and 29 ng/mL (2).1. IOM ([place] of Medicine). 2010. Dietary reference intakes for calcium and D. Day [place]: The National Academies Press.2. Micky MF, Yohana NC, Kennedy PAL, et al. Evaluation, treatment, and prevention of vitamin D deficiency: an Endocrine Society clinical practice guideline. JCEM. 2010; 96(7):1911-30. :22 Comprehensive Metabolic Profil Comments: [facility] [address] [place], [address] GAP 8 (Normal) Range: 5-15 CO2 29.0 [...] 7-18 GLU 96 mg/dL (Normal) Range: 70-110 33-Tpm-99463:22 Lipase Comments: [facility] [address] [facility] [address] [place], [place], [address] LIPASE 583 U/L (Abnormal) Range: 73-393 :22 Lipid Profile Comments: [facility] [address] [facility] [address] [place], [place], [address] VLDL 55 mg/dL (Abnormal) Range: 5-40 LDL [...] High Risk :22 Vitamin D,25 Hydroxy Comments: [facility] [address] [place], [address] Vitamin D 25-OH 37.0 ng/mL (Normal) Comments: Vitamin D 25(OH) Status Range Deficiency <20 ng/mL (50nmol/L) Insuffciency 20 - 30 ng/mL (50 - 75 nmol/L) Sufficiency 30 - 100 ng/mL (75 - 250 nmol/L) Toxicity >100 ng/mL (>250 nmol/L) 3-Sog-513086:10 Culture, Nose Comments: [facility] [address] [place], [address] CUN See Note (Normal) Comments: Gram StainGram Stain 1+ White Blood Cells Rare Red Blood Cells No organisms seen Nasoph. CultNo Haemophilus, Streptococcus pneumoniae, beta-hemolytic Streptococcus or Staphylococcus aureus isolated. : EGD (PICK SITE) See Note (Normal) Comments: [facility] [address] [place], [address] 00 Comments: Patient: BRANDIE KUO : 1945 (70/F) Acct Num: [id number] Phys: Rylan Bird MD Unit Num: [id number] Loc: EN Specimen: [id number] Received: 06/16/1549 Spec Type: EGD B IOPSY TISSUES TISSUES: COMMENT A - The results of immunohistochemistry for Helicobacter pylori will be reportedseparately ([id number]). GROSS DESCRIPTION A - Received is one [...] one cassette. / AM: 06/16/15 TC:3 CPT: 40570 x4 HEADER OPERATION: EGD and colonoscopy with [...] biopsy: Melanosis coli. AM: 06/17/15 Signed [facility] 06/18/15 <signature on file> : IMMUNOHISTOCHEMISTRY See Note (Normal) Comments: [facility] [address] [facility] [place], [address] 00 Comments: Patient: BRANDIE KUO : 1945 (70/F) Acct Num: [id number] Phys: Pelon MONROE,Rylan Unit Num: [id number] Loc: EN Specimen: [id number] Received: 06/18/15 - 1004 Spec Type: IMMU NO TISSUES TISSUES: SPECIMEN INFORMATION: Tissue Source: Gastric antrum, biopsy Clinical Info: Reflux, epigastric pain Specimen Number: [id number] CPT code: 67117 METHODOLO GY: Deparaffinized sections of prefer/formalin-fixed tissue or PAP/DQ stained slides are incubated with monoclonal/polyclonal antibodies/oligonucleotide probes. Localization is made via biotin free immunoperoxidase method. Appropriate controls are performed and reacted as expected. Results on target cell population are indicated in the following table: RESULTS: ANTIBODY / CLONE RESULT H Pylori (polyclonal) negative These tests were developed and their performance characteristics determined by [facility]. They may not have been cleared or approved by the U.S. Food and Drug Administration. The FDA has determined that such clearance or approval is not necessary. INTERPRETATION: Gastric antrum, biopsy: Negative for H elicobacter pylori organisms. SJ:shaan 06/18/15 PHYSICIAN AND INSTITUTION [place] [address] Signed Bobby Yadav 06/18/15 <signature on file> 21-Dhx-35158:59 Urinalysis, Office (43245) UA - LEUKOCYTE ESTERASE Trace (Normal) UA - NITRITE Negative (Normal) URINE UROBILINGN MIKI TIMED 2 mg/dL (Normal) UA - PROTEIN Trace mg/dL (Normal) UA - PH 8.0 (Normal) UA - BLOOD Negative (Normal) UA - SPECIFIC GRAVITY 1.020 (Normal) UA - KETONES Small mg/dL (Normal) UA - BILIRUBIN Small (Normal) UA - GLUCOSE Negative (Normal) 78-Ywh-23569:34 URINE MAHENDRA CULTURE-IDENTIFICATN Comments: PATIENT NOT FASTINGPERFORMED BY: [facility] Tifgbs7193 [facility] [id number] Information: [id number] (94543) Result 1 BETAGB (Abnormal) Comments: Beta hemolytic [...] per mL Urine Final report (Abnormal) Culture,Comprehensive 0-Wbf-219568:44 URINE MAHENDRA CULTURE-MIKI COL Comments: PATIENT NOT FASTINGPERFORMED BY: JAYDE [facility] Zimabu4201 Danni FregosoAtrium Health Cleveland [id number] Information: SRC:URT [id number] COUNT (06265) Result 2 BETAGB (Abnormal) Comments: Beta hemolytic [...] primarily for treating urinary tract infections. (CLSI, X771-I49,2009) Urine Final report (Abnormal) Culture,Comprehensive 9-Ktt-882721:12 Urinalysis, Office (83067) UA - LEUKOCYTE ESTERASE Negative (Normal) UA [...] DIFF WBC Comments: PATIENT WAS FASTINGPERFORMED BY: [employer] [facility] [id number] Information: [id number] (49957) Immature Grans (Abs) 0.0 {x10E3/uL} (Normal) Range: [...] (Normal) Range: 3.4-10.8 :26 Vitamin D Hydroxy (68025) Comments: PATIENT WAS FASTINGPERFORMED BY: Cupid-LabsUNM Cancer CenterBtynqb1178 [facility] [id number] Vitamin D, 25-Hydroxy 36.5 ng/mL (Normal) Range: 30.0-100.0 Comments: Vitamin D deficiency has been defined by the [place] of[place]icine and an Endocrine Society practice guideline as alevel of serum 25-OH vitamin D less than 20 ng/mL (1,2).The Endocrine Society went on to further define vitamin Dinsufficiency as a level between 21 and 29 ng/mL (2).1. IOM ([place] of Medicine). 2010. Dietary reference intakes for calcium and D. Day [place]: The National Academies Press.2. Micky MF, Yohana COBURN, Kennedy PAL, et al. Evaluation, treatment, and prevention of vitamin D deficiency: an Endocrine Society clinical practice guideline. JCEM. 2010; 96(7):1911-30. :26 METABOLIC PANEL, COMPREHENSIVE Comments: PATIENT WAS FASTINGPERFORMED BY: LabCoRobert Wood Johnson University Hospital at HamiltonAcxlnl8558 [facility] [id number] (87207) ALT (SGPT) 13 [iU]/L (Normal) Range: 0-32 [...] mg/dL (Normal) Range: 65-99 :26 LIPID PANEL (21316) Comments: PATIENT WAS FASTINGPERFORMED BY: Cupid-LabsRobert Wood Johnson University Hospital at HamiltonFggdtx3275 [facility] [id number] LDL/HDL Ratio 5.8 {ratio_units} (Abnormal) Range: 0.0-3.2 [...] Total 348 mg/dL (Abnormal) Range: 100-199 :26 MGPPT-[id number]-GLGMT (63059) Comments: PATIENT WAS FASTINGPERFORMED BY: Cupid-LabsRobert Wood Johnson University Hospital at HamiltonQstpju7868 [facility] [id number] AFP, Serum, Tumor Marker 5.8 ng/mL (Normal) Range: 0.0-8.3 Comments: Carmencita ECLIA methodology :26 LIPASE (71051) Comments: PATIENT WAS FASTINGPERFORMED BY: Cupid-LabsRobert Wood Johnson University Hospital at HamiltonLajflf5704 [facility] [id number] Lipase, Serum 117 U/L (Abnormal) Range: 0-59 :11 Comp. Metabolic Panel (14) Comments: PATIENT NOT FASTINGPERFORMED BY: Cupid-LabsRobert Wood Johnson University Hospital at HamiltonIioqyh1621 [facility] [id number] Information: [id number], [id number] ALT (SGPT) 11 [iU]/L (Normal) Range: 0-32 [...] With LDL/HDL Comments: PATIENT NOT FASTINGPERFORMED BY: LabCoRobert Wood Johnson University Hospital at HamiltonEtlicb6133 [facility] [id number]; will review at 02/09 appt Ratio LDL/HDL [...] ng/mL (Abnormal) Comments: PATIENT NOT FASTINGPERFORMED BY: [place] [id number] [facility] [id number] :11 Range: 30.0-100.0 Comments: Vitamin D deficiency has been defined by the [place] of[place]icine and an Endocrine Society practice guideline as alevel of serum 25-OH vitamin D less than 20 ng/mL (1,2).The Endocrine Society went on to further define vitamin Dinsufficiency as a level between 21 and 29 ng/mL (2).1. IOM ([place] of Medicine). 2010. Dietary reference intakes for calcium and D. Day [place]: The National Academies Press.2. Micky MF, Yohana NC, Kennedy PAL, et al. Evaluation, treatment, and prevention of vitamin D deficiency: an Endocrine Society clinical practice guideline. JCEM. 2010; 96(7):1911-30. :37 LIPASE (99898) Comments: PATIENT NOT FASTINGPERFORMED BY: [place] [id number] [facility] [id number] Information: [id number] Lipase, Serum 99 U/L (Abnormal) Range: 0-59 :48 Lipase (31986) Comments: PATIENT WAS FASTINGPERFORMED BY: [place] 4127470 [facility] [id number] Information: [id number] Lipase, Serum 110 U/L (Abnormal) Range: 0-59 :20 Basic Metabolic Profile (BMP) Comments: Test performed at:[facility] Ttlzciaxvv96[address] [place] [address] GAP 8 (Normal) Range: 5-15 CO2 26.0 [...] 05-Sep-20145:20 CBC W/Diff, Automated Comments: Test performed at:[facility] Dqnmrbmkot8088 [address] HoyosRani [place], [place] [id number] Absolute Lymph 0.64 {X10_3/ul} (Abnormal) Range: 0.83-4.51 [...] Range: 4.4-11.0 :20 Lipase Comments: Test performed at:[facility] Agksmphkhi0901 [place] [address] LIPASE 377 U/L (Abnormal) Range: 70-290 :50 [...] (Normal) Range: 70-110 :50 Vitamin D Hydroxy (80025) Comments: PATIENT WAS FASTINGPERFORMED BY: LabCoRobert Wood Johnson University Hospital at HamiltonXjbyoh7932 [facility] [id number] Vitamin D, 25-Hydroxy 35.7 ng/mL (Normal) Range: 30.0-100.0 Comments: Vitamin D deficiency has been defined by the [place] [facility] and an Endocrine Society practice guideline as alevel of serum 25-OH vitamin D less than 20 ng/mL (1,2).The Endocrine Society went on to further define vitamin Dinsufficiency as a level between 21 and 29 ng/mL (2).1. IOM ([place] of [place]). 2010. Dietary reference intakes for calcium and D. [place]: The National Academies Press.2. Micky MF, Yohana NC, Kennedy PAL, et al. Evaluation, treatment, and prevention of vitamin D deficiency: an Endocrine Society clinical practice guideline. JCEM. 2010; 96(7):1911-30. :50 LIPID PANEL (69632) Comments: PATIENT WAS FASTINGPERFORMED BY: [facility]6370 [facility] [id number] Information: [id number],2ND ORDER LDL/HDL Ratio 4.0 {ratio_units} (Abnormal) Range: [...] degree relatives should be collected. J Clin Cjhzvvj8335;5:133-140 LDL Cholesterol Calc 195 mg/dL (Abnormal) Range: 0-99 VLDL Cholesterol Rocky 32 mg/dL (Normal) Range: 5-40 HDL Cholesterol 49 mg/dL (Normal) Comments: According to ATP-III Guidelines, HDL-C >59 mg/dL is considered anegative risk factor for CHD. Triglycerides 160 mg/dL (Abnormal) Range: 0-149 Cholesterol, Total 276 mg/dL (Abnormal) Range: 100-199 :50 YJZDM-IDESEZWZLIN-OAYIF (07441) Comments: PATIENT WAS FASTINGPERFORMED BY: [facility]6370 [facility] [id number] AFP, Serum, Tumor Marker 6.3 ng/mL (Normal) Range: 0.0-8.3 Comments: Carmencita ECLIA methodology :50 PTT (Activated Partial Comments: PATIENT WAS FASTINGPERFORMED BY: [facility]6370 [facility] [id number] Thromboplastin Time) (45278) aPTT 24 {sec} (Normal) Range: 24-33 Comments: This test has not been validated for monitoring unfractionated heparintherapy. aPTT-based therapeutic ranges for unfractionated heparintherapy have not been established. For general guidelines onHeparin monitoring, refer to the [facility] Directory of Services. :50 PT (Prothrobim Time) (67088) Comments: PATIENT WAS FASTINGPERFORMED BY: [facility]Formerly [facility]6370 [facility] [id number] Prothrombin Time 10.3 {sec} (Normal) Range: 9.1-12.0 INR 1.0 (Normal) Range: 0.8-1.2 Comments: Reference interval is for non-anticoagulated patients. . Suggested INR therapeutic range for Vitamin K anta gonist therapy: Standard Dose (moderate intensity therapeutic range): 2.0 - 3.0 Higher intensity therapeutic range 2.5 - 3.5 11-Fad-66625:19 CBC WITH MANUAL DIFF Comments: PATIENT WAS FASTINGPERFORMED BY: [facility]6370 [facility] [id number] Information: [id number] (03710) Immature Grans (Abs) 0.0 {x10E3/uL} (Normal) Range: [...] 3.77-5.28 WBC 4.5 {x10E3/uL} (Normal) Range: 3.4-10.8 83-Qhm-12696:19 METABOLIC PANEL, COMPREHENSIVE Comments: PATIENT WAS FASTINGPERFORMED BY: LabCoRobert Wood Johnson University Hospital at HamiltonUpsaml6215 [facility] [id number] (41754) ALT (SGPT) 10 [iU]/L (Normal) Range: 0-32 [...] (Normal) Range: 65-99 :19 Vitamin D Hydroxy (38978) Comments: PATIENT WAS FASTINGPERFORMED BY: [employer]70 [facility] [id number] Vitamin D, 25-Hydroxy 42.1 ng/mL (Normal) Range: 30.0-100.0 Comments: Vitamin D deficiency has been defined by the [place] [facility] and an Endocrine Society practice guideline as alevel of serum 25-OH vitamin D less than 20 ng/mL (1,2).The Endocrine Society went on to further define vitamin Dinsufficiency as a level between 21 and 29 ng/mL (2).1. IOM ([place]). 2010. Dietary reference intakes for calcium and D. [place]: The National Academies Press.2. Micky MF, Yohana NC, Kennedy PAL, et al. Evaluation, treatment, and prevention of vitamin D deficiency: an Endocrine Society clinical practice guideline. JCEM. 2010; 96(7):1911-30. :19 LIPID PANEL (08570) Comments: PATIENT WAS FASTINGPERFORMED BY: [facility] Zkchhb0107 [facility] [id number] LDL/HDL Ratio 2.4 {ratio_units} (Normal) Range: 0.0-3.2 LDL Cholesterol Calc 126 mg/dL (Abnormal) Range: 0-99 VLDL Cholesterol Rocky 36 mg/dL (Normal) Range: 5-40 HDL Cholesterol 53 mg/dL (Normal) Comments: According to ATP-III Guidelines, HDL-C >59 mg/dL is considered anegative risk factor for CHD. Triglycerides 178 mg/dL (Abnormal) Range: 0-149 Cholesterol, Total 215 mg/dL (Abnormal) Range: 100-199 :41 T4, FREE (THYROXINE) (50882) Comments: PATIENT WAS FASTINGPERFORMED BY: Cupid-LabsRobert Wood Johnson University Hospital at HamiltonKrqsrs2665 [facility] [id number] T4,Free(Direct) 1.00 ng/dL (Normal) Range: 0.82-1.77 :41 T3, FREE (TRIDOTHYRONINE) (71487) Comments: PATIENT WAS FASTINGPERFORMED BY: Cupid-LabsRobert Wood Johnson University Hospital at HamiltonTepvug1274 [facility] [id number] Triiodothyronine,Free,Serum 3.0 pg/mL (Normal) Range: 2.0-4.4 :41 TSH (96802) Comments: PATIENT WAS FASTINGPERFORMED BY: [employer] Fndqwu5028 [facility] [id number] TSH 1.740 {uIU/mL} (Normal) Range: 0.450-4.500 :41 LIPID PANEL (91857) Comments: PATIENT WAS FASTINGPERFORMED BY: Cupid-LabsRobert Wood Johnson University Hospital at HamiltonSbnjcn4818 [facility] [id number] Information: [id number],NO DRAW FEE 2ND ORD ER; see message [...] Total 191 mg/dL (Normal) Range: 100-199 :19 [id number]-ZFDCR (81546) Comments: PATIENT WAS FASTINGPERFORMED BY: [facility]6370 [facility] [id number] AFP, Serum, Tumor Marker 5.2 ng/mL (Normal) Range: 0.0-8.3 Comments: Carmencita ECLIA methodology :19 PTT (Activated Partial Comments: PATIENT WAS FASTINGPERFORMED BY: [facility]6370 [facility] [id number] Thromboplastin Time) (19101) aPTT 25 {sec} (Normal) Range: 24-33 Comments: This test has not been validated for monitoring unfractionated heparintherapy. aPTT-based therapeutic ranges for unfractionated heparintherapy have not been established. For general guidelines onHeparin monitoring, refer to the [facility] Directory of Services. :19 PT (Prothrobim Time) (80239) Comments: PATIENT WAS FASTINGPERFORMED BY: [facility]6370 [facility] [id number] Prothrombin Time 11.0 {sec} (Normal) Range: 9.1-12.0 INR 1.1 (Normal) Range: 0.8-1.2 Comments: Reference interval is for non-anticoagulated patients. . Suggested INR therapeutic range for Vitamin K anta gonist therapy: Standard Dose (moderate intensity therapeutic range): 2.0 - 3.0 Higher intensity therapeutic range 2.5 - 3.5 :19 CBC WITH MANUAL DIFF Comments: PATIENT WAS FASTINGPERFORMED BY: [facility]6370 [facility] [id number] Information: [id number] (02353) Immature Grans (Abs) 0.0 {x10E3/uL} (Normal) Range: [...] 3.77-5.28 WBC 3.7 {x10E3/uL} (Normal) Range: 3.4-10.8 20-Nhy-99320:19 METABOLIC PANEL, COMPREHENSIVE Comments: PATIENT WAS FASTINGPERFORMED BY: LabCoRobert Wood Johnson University Hospital at HamiltonBjmylf4672 [facility] [id number] (16082) ALT (SGPT) 10 [iU]/L (Normal) Range: 0-32 [...] (Normal) Range: 65-99 :19 Vitamin D Hydroxy (90027) Comments: PATIENT WAS FASTINGPERFORMED BY: [employer] EV Conversions70 DigitalTownAt[facility] [id number] Vitamin D, 25-Hydroxy 36.2 ng/mL (Normal) Range: 30.0-100.0 Comments: Vitamin D deficiency has been defined by the [place] of[place]icine and an Endocrine Society practice guideline as alevel of serum 25-OH vitamin D less than 20 ng/mL (1,2).The Endocrine Society went on to further define vitamin Dinsufficiency as a level between 21 and 29 ng/mL (2).1. IOM ([place]). 2010. Dietary reference intakes for calcium and D. Day [place]: The National Academies Press.2. Micky MF, Yohana NC, Kennedy PAL, et al. Evaluation, treatment, and prevention of vitamin D deficiency: an Endocrine Society clinical practice guideline. JCEM. 2010; 96(7):1911-30. :55 URINE MAHENDRA CULTURE (MIKI Comments: PATIENT NOT FASTINGPERFORMED BY: [employer] Qnflfu8494 [facility] [id number] Information: SRC:UR [id number] COL COUNT) (13984) Result 1 BETAGB (Normal) Comments: Beta hemolytic [...] Final report (Normal) Culture,Comprehensive 08-Sep-20139:43 Urinalysis, Office (02837) UA - BILIRUBIN Negative (Normal) UA - BLOOD Negative (Normal) UA - GLUCOSE Negative (Normal) UA - KETONES Negative mg/dL (Normal) UA - LEUKOCYTE ESTERASE Small (Normal) UA - NITRITE Negative (Normal) UA - PH 7.0 (Normal) UA - PROTEIN Negative mg/dL (Normal) UA - SPECIFIC GRAVITY 1.025 (Normal) URINE UROBILINGN MIKI TIMED Normal mg/dL (Normal) :13 LIPID PANEL (15602) Comments: PATIENT WAS FASTINGPERFORMED BY: [employer] WolinakAt[facility] Health [place] [id number] LDL Cholesterol Calc 93 mg/dL (Normal) Range: [...] MANUAL DIFF Comments: PATIENT WAS FASTINGPERFORMED BY: [employer]6370 [facility] [id number] Information: [id number] (88494) Immature Grans (Abs) 0.0 {x10E3/uL} (Normal) Range: [...] 3.77-5.28 WBC 4.1 {x10E3/uL} (Normal) Range: 3.4-10.8 91-Rhh-97561:13 METABOLIC PANEL, COMPREHENSIVE Comments: PATIENT WAS FASTINGPERFORMED BY: LabCoRobert Wood Johnson University Hospital at HamiltonIwhhvh7912 [facility] [id number] (58138) ALT (SGPT) 16 [iU]/L (Normal) Range: 0-32 [...] (Normal) Range: 65-99 :13 Vitamin D Hydroxy (40941) Comments: PATIENT WAS FASTINGPERFORMED BY: [facility]6370 [facility] [id number] Vitamin D, 25-Hydroxy 40.1 ng/mL (Normal) Range: 30.0-100.0 Comments: Vitamin D deficiency has been defined by the [place] [facility] [facility] and an Endocrine Society practice guideline as alevel of serum 25-OH vitamin D less than 20 ng/mL (1,2).The Endocrine Society went on to further define vitamin Dinsufficiency as a level between 21 and 29 ng/mL (2).1. IOM ([place] of [place]). 2010. Dietary reference intakes for [...] Signed:Milly PhamApril 24, 2013 at 2:03:02 PM [id number] Signed RU/RU If you are the referring physician and would like to consult with theradiologist who provided this interpretation, please conta mikhail Sheehan M.D. at [phone]. If this radiologist is unavailable, youwillbe directed to another radiologist to assist. If you are a patient with a question regarding this report, pleasecontac tyour referring physician directly. Professional Interpretation Provided By: [email or web address], Phone , These documents contain legally protected [...] Montoya on 04/24/131427 Sign by: Carson Montoya 12-Wli-18451:33 TRANSVAGINAL NON- Radiology See Note Comments: CLINICAL:Female, [...] Montoya M.D.April 24, 2013 at 2:03:00 PM [id number] Signed RU/RU If you are the referring physician a nd would like to consult with theradiologist who provided this interpretation, please contact Joshua Sheehan at [phone]. If this radiologist is unavailable, youellyllbe directed to another radi ologist to assist. If you are a patient with a question regarding this report, pleasecontactyour referring physician directly. Professional Interpretation Provided By: [email or web address], Phone , These documents contain legally protected [...] on 04/24/13 1436 Sign by: Carson Montoya 62-Fnu-825269:01 URINE MAHENDRA CULTURE-IDENTIFICATN Comments: PATIENT NOT FASTINGPERFORMED BY: [facility]Co Ovamlf0884 [facility] [id number] Information: [id number] (88770) Result 1 Enterococcus faecalis Comments: 3,000 Colonies/mLNote: this isolate is vancomycin-susceptible.This information is provided for epidemiologic purposesonly: vancomycin is not among the antibioticsrecommended for therapy of urinary tract (Normal) infectionscaused by Enterococcus.For Enterococcus species, cephalosporins, aminoglycosides (except forhigh-level resistance screening), clindamycin, and trimethoprim-sulfamethoxazole are not effective clinically. Fluoroquinolones areused primarily for treating urinary tract infections. (CLSI, [id number],2009) Result 2 BETAGB (Normal) Comments: Beta hemolytic [...] RVancomycin S Urine Final report (Normal) CultureIsh 42-Cmu-888098:55 Urinalysis, Office (08718) UA - LEUKOCYTE ESTERASE Small (Normal) UA [...] Carroll M.D.January 01, 2013 at 8:13:49 AM [id number] Signed GP/GP If you are the referring physician and would like to consult with theradiologist who provided this interpretation, please contact Joshua Brunson at [phone]. If this radiologist is unavailable, youwill be directed to [facility] to assist. If you are [...] on 01/01/13833 Sign by: Zbigniew Carroll MD 89-Xto-15907:18 ABDOMEN COMPLETE Radiology Report See Note (Normal) [...] Carroll M.D.December 20, 2012 at 12:53:26 PM [id number] Signed GP/GP If you are the referring physician and would like to consult with theradiologist who provided this interpretation, please contact Alyssa parikh M.D. at [phone]. If this radiologist is unavailable, youwill be directed to another radiologist to assist. If you are a patient with a question regarding this report, pleasecontactyour referring physician directly. Professional Interpretation Provided By: [email or web address], Phone , These documents contain legally protected [...] 12/20/12 1256 Sign by: Zbigniew Carroll MD 69-Xii-77359:34 HEPATIC FUNCTION PANEL Comments: PATIENT WAS FASTINGPERFORMED BY: [facility]6370 [facility] [id number] (93025) ALT (SGPT) 28 [iU]/L (Normal) Range: 0-32 AST (SGOT) 39 [iU]/L (Normal) Range: 0-40 Alkaline Phosphatase, S 99 [iU]/L (Normal) Range: 47-112 Bilirubin, Direct 0.17 mg/dL (Normal) Range: 0.00-0.40 Bilirubin, Total 0.7 mg/dL (Normal) Range: 0.0-1.2 Albumin, Serum 4.6 g/dL (Normal) Range: 3.6-4.8 Protein, Total, Serum 7.2 g/dL (Normal) Range: 6.0-8.5 :34 LIPID PANEL (25607) Comments: PATIENT WAS FASTINGPERFORMED BY: AM PharmaRobert Wood Johnson University Hospital at HamiltonWbykyu3840 [facility] [id number] Information: [id number] LDL/HDL Ratio 1.7 {ratio_units} (Normal) Range: 0.0-3.2 HDL Cholesterol 62 mg/dL (Normal) Comments: According to ATP-III Guidelines, HDL-C >59 mg/dL is considered anegative risk factor for CHD. LDL Cholesterol Calc 104 mg/dL (Abnormal) Range: 0-99 VLDL Cholesterol Rocky 32 mg/dL (Normal) Range: 5-40 Triglycerides 158 mg/dL (Abnormal) Range: 0-149 Cholesterol, Total 198 mg/dL (Normal) Range: 100-199 :34 USNTR-GYSBHVCCTWO-FIUCW (15383) Comments: PATIENT WAS FASTINGPERFORMED BY: [employer] Gzuqje3424 [facility] [id number] AFP, Serum, Tumor Marker 5.3 ng/mL (Normal) Range: 0.0-8.3 Comments: Carmencita ECLIA methodology :34 PTT (Activated Partial Comments: PATIENT WAS FASTINGPERFORMED BY: Cupid-LabsRobert Wood Johnson University Hospital at HamiltonFtkhmv6987 [facility] [id number] Thromboplastin Time) (56152) aPTT 27 {sec} (Normal) Range: 24-33 Comments: This test has not been validated for monitoring unfractionated heparintherapy. aPTT-based therapeutic ranges for unfractionated heparintherapy have not been established. For general guidelines onHeparin monitoring, refer to the [facility] Directory of Services. :34 PT (Prothrobim Time) (36328) Comments: PATIENT WAS FASTINGPERFORMED BY: [facility]6370 [facility] [id number] INR 1.0 (Normal) Range: 0.8-1.2 Comments: Reference interval is for non-anticoagulated patients. . Suggested INR therapeutic range for Vitamin K anta gonist therapy: Standard Dose (moderate intensity therapeutic range): 2.0 - 3.0 Higher intensity therapeutic range 2.5 - 3.5 Prothrombin Time 10.3 {sec} (Normal) Range: 9.1-12.0 :28 METABOLIC PANEL, COMPREHENSIVE Comments: PATIENT WAS FASTINGPERFORMED BY: [facility]6370 [facility] [id number] (86240) ALT (SGPT) 11 [iU]/L (Normal) Range: 0-32 [...] MANUAL DIFF Comments: PATIENT WAS FASTINGPERFORMED BY: [facility]6[address] [facility] [id number] Information: [id number] (28462) Immature Grans (Abs) 0.0 {x10E3/uL} (Normal) Range: [...] (Normal) Range: 4.0-10.5 :28 Vitamin D Hydroxy (96753) Comments: PATIENT WAS FASTINGPERFORMED BY: [employer] Yxhmlr1746 [facility] [id number] Vitamin D, 25-Hydroxy 48.4 ng/mL (Normal) Range: 30.0-100.0 Comments: Vitamin D deficiency has been defined by the [place] of[place]icine and an Endocrine Society practice guideline as alevel of serum 25-OH vitamin D less than 20 ng/mL (1,2).The Endocrine Society went on to further define vitamin Dinsufficiency as a level between 21 and 29 ng/mL (2).1. IOM ([place]). 2010. Dietary reference intakes for calcium and D. Day [place]: The National Academies Press.2. Micky MF, Yohana COBURN, Kennedy PAL, et al. Evaluation, treatment, and prevention of vitamin D deficiency: an Endocrine Society clinical practice guideline. JCEM. 2010; 96(7):1911-30. :28 LIPID PANEL (79377) Comments: PATIENT WAS FASTINGPERFORMED BY: [employer]6370 [facility] [id number] LDL/HDL Ratio 2.2 {ratio_units} (Normal) Range: 0.0-3.2 [...] METABOLIC PANEL, Comments: PATIENT NOT FASTINGPERFORMED BY: [employer] Hgskih5491 [facility] [id number] Information: [id number] COMPREHENSIVE (63526) Alkaline Phosphatase, S 83 [iU]/L (Normal) Range: [...] Serum 90 mg/dL (Normal) Range: 65-99 :07 SDLNM-HSUZPYMAACA-BSPHJ (24308) Comments: PATIENT NOT FASTINGPERFORMED BY: [facility]6370 [facility]Former[facility] [id number] AFP, Serum, Tumor Marker 5.0 ng/mL (Normal) Range: 0.0-8.3 Comments: Carmencita ECLIA methodology :07 PTT (Activated Partial Comments: PATIENT NOT FASTINGPERFORMED BY: [employer] Wfizkv1128 [facility] [id number] Thromboplastin Time) (03196) aPTT 25 {sec} (Normal) Range: 24-33 Comments: This test has not been validated for monitoring unfractionated heparintherapy. aPTT-based therapeutic ranges for unfractionated heparintherapy have not been established. For general guidelines onHeparin monitoring, refer to the [facility] Directory of Services. :07 PT (Prothrobim Time) (29965) Comments: PATIENT NOT FASTINGPERFORMED BY: [facility]6370 [facility] [id number] Prothrombin Time 10.8 {sec} (Normal) Range: 9.1-12.0 INR 1.0 (Normal) Range: 0.8-1.2 Comments: Reference interval is for non-anticoagulated patients. . Suggested INR therapeutic range for Vitamin K anta gonist therapy: Standard Dose (moderate intensity therapeutic range): 2.0 - 3.0 Higher intensity therapeutic range 2.5 - 3.5 :07 Vitamin D Hydroxy (34238) Comments: PATIENT NOT FASTINGPERFORMED BY: [facility]6370 [facility] [id number] Vitamin D, 25-Hydroxy 51.6 ng/mL (Normal) Range: 30.0-100.0 Comments: Vitamin D deficiency has been defined by the [place] of[place]icine and an Endocrine Society practice guideline as alevel of serum 25-OH vitamin D less than 20 ng/mL (1,2).The Endocrine Society went on to further define vitamin Dinsufficiency as a level between 21 and 29 ng/mL (2).1. IOM ([place] of [place]). 2010. Dietary reference intakes for calcium and D. Day [place]: The National Academies Press.2. Micky MF, Yohana NC, Kennedy PAL, et al. Evaluation, treatment, and prevention of vitamin D deficiency: an Endocrine Society clinical practice guideline. JCEM. 2010; 96(7):1911-30. :08 Vitamin D Hydroxy (52523) Comments: PATIENT WAS FASTINGPERFORMED BY: [facility]6[address] [facility] [id number] Vitamin D, 25-Hydroxy 87.1 ng/mL (Normal) Range: 30.0-100.0 Comments: Vitamin D deficiency has been defined by the [place] of[place]icine and an Endocrine Society practice guideline as alevel of serum 25-OH vitamin D less than 20 ng/mL (1,2).The Endocrine Society went on to further define vitamin Dinsufficiency as a level between 21 and 29 ng/mL (2).1. IOM ([place] of Medicine). 2010. Dietary reference intakes for calcium and D. [place]: The National Academies Press.2. Micky MF, Yohana COBURN, Kennedy PAL, et al. Evaluation, treatment, and prevention of vitamin D deficiency: an Endocrine Society clinical practice guideline. JCEM. 2010; 96(7):1911-30. :08 LIPID PANEL (80602) Comments: PATIENT WAS FASTINGPERFORMED BY: Cupid-LabsRobert Wood Johnson University Hospital at HamiltonVvrusq6893 [facility] [id number] LDL/HDL Ratio 5.1 {ratio_units} (Abnormal) Range: 0.0-3.2 LDL Cholesterol Calc 216 mg/dL (Abnormal) Range: 0-99 Comments: Please note reference interval changePossible Familial Hypercholesterolemia. FH should be suspected whenfasting LDL cholesterol is above 189 mg/dL or non- HDL cholesterolis above 219 mg/dL. A family history of high cholesterol and heartdisease in 1st degree relatives should be collected. J Clin Jpvtpyj5851;5:133-140 VLDL Cholesterol Rocky 47 mg/dL (Abnormal) Range: 5-40 HDL Cholesterol 42 mg/dL (Normal) Comments: According to ATP-III Guidelines, HDL-C >59 mg/dL is considered anegative risk factor for CHD. Triglycerides 237 mg/dL (Abnormal) Range: 0-149 Comments: Please note reference interval change Cholesterol, Total 305 mg/dL (Abnormal) Range: 100-199 Comments: Please note reference interval change :08 METABOLIC PANEL, Comments: PATIENT WAS FASTINGPERFORMED BY: Cupid-LabsRobert Wood Johnson University Hospital at HamiltonBbjfdf7622 [facility] [id number] Information: [id number] COMPREHENSIVE (95189) ALT (SGPT) 14 [iU]/L (Normal) Range: 0-40 [...] 95 mg/dL (Normal) Range: 65-99 :25 TSH (10787) Comments: PATIENT NOT FASTINGPERFORMED BY: Cupid-LabsRobert Wood Johnson University Hospital at HamiltonIbgrgy9516 [facility] [id number] Information: [id number] TSH 2.830 {uIU/mL} (Normal) Range: 0.450-4.500 :25 SED RATE ERYTHROCYTE (65494) Comments: PATIENT NOT FASTINGPERFORMED BY: [facility]6370 [facility] [id number] Sedimentation Rate-Westergren 14 mm/h (Normal) Range: 0-40 :25 C-REACTIVE PROTEIN (88256) Comments: PATIENT NOT FASTINGPERFORMED BY: [facility]6370 [facility] [id number] C-Reactive Protein, Quant 1.9 mg/L (Normal) Range: 0.0-4.9 :25 RHEUMATOID FACTOR-QUANT (86221) Comments: PATIENT NOT FASTINGPERFORMED BY: [facility] Opcbpz3826 [facility] [id number] RA Latex Turbid. 8.6 {IU/mL} (Normal) Range: 0.0-13.9 06-Feb-20129:25 RENUKA (ANTINUCLEAR ANTIBODY) Comments: PATIENT NOT FASTINGPERFORMED BY: CB [facility] Htheik5754 [facility] [id number] (91640) RENUKA Direct Negative (Normal) :25 Creatine Kinase Total (81478) Comments: PATIENT NOT FASTINGPERFORMED BY: CB [facility] Myuvxn6285 [facility] [id number] Creatine Kinase,Total,Serum 127 U/L (Normal) Range: 24-173 94-Ruu-228486:38 BILAT SCRN DIGITAL & CAD Radiology Report See Note (Normal) Comments: MAMMOGRAPHY - BILATERAL SCREENING REASON FOR EXAM: Female, 66 years old. Routine annual screeningexamination. PERTINENT HISTORY: Prior left excisional biopsy. TECHNIQUE: Digital exami nemours foundation. Med iolateral oblique (MLO) andcraniocaudad (CC) views [...] lectronically Signed GP/GP Professional Interpretation Provided By: [facility]Sing[facility], , To consult with a radiologist regarding this report, please call our [id number] line @ Dictated on 01/01/12 1145 by Ana MONROE,FordriAngelranscribed on 01/01/12 1301 by ITS IMPORTSign by Zbigniew Carroll MD on 01/01/12 1302 Sign by: Zbigniew Carroll MD :48 Vitamin D Hydroxy (14141) Comments: PATIENT WAS FASTINGPERFORMED BY: [employer] Evymhf7291 [facility] [id number] Vitamin D, 25-Hydroxy 64.5 ng/mL (Normal) Range: 30.0-100.0 Comments: Vitamin D deficiency has been defined by the [place] of[place]icine and an Endocrine Society practice guideline as alevel of serum 25-OH vitamin D less than 20 ng/mL (1,2).The Endocrine Society went on to further define vitamin Dinsufficiency as a level between 21 and 29 ng/mL (2).1. IOM ([place] of [place]). 2010. Dietary reference intakes for calcium and D. [place]: The National Academies Press.2. Micky MF, Yohana NC, Kennedy PAL, et al. Evaluation, treatment, and prevention of vitamin D deficiency: an Endocrine Society clinical practice guideline. JCEM. 2010; 96(7):1911-30. :48 CBC WITH MANUAL DIFF Comments: PATIENT WAS FASTINGPERFORMED BY: [facility] Qdiyoa3052 [facility] [id number] Information: [id number] (80464) Immature Grans (Abs) 0.0 {x10E3/uL} (Normal) Range: [...] 3.80-5.10 WBC 4.2 {x10E3/uL} (Normal) Range: 4.0-10.5 20-Ggl-36703:48 METABOLIC PANEL, COMPREHENSIVE Comments: PATIENT WAS FASTINGPERFORMED BY: LabCoRobert Wood Johnson University Hospital at HamiltonGvoxfp8684 [facility] [id number] (50775) ALT (SGPT) 16 [iU]/L (Normal) Range: 0-40 [...] Glucose, Serum 80 mg/dL (Normal) Range: 65-99 19-Eus-06026:48 LIPID PANEL (25563) Comments: PATIENT WAS FASTINGPERFORMED BY: [facility] Ocmyqm8748 [facility] [id number] LDL Cholesterol Calc 188 mg/dL (Abnormal) Range: [...] 07/13/11 1331 Sign by: Zbigniew Carroll MD 19-Apq-56510:44 Vitamin D Hydroxy (66079) Comments: PATIENT WAS FASTINGPERFORMED BY: [facility]6370 [facility] [id number] Vitamin D, 25-Hydroxy 32.1 ng/mL (Normal) Range: 30.0-100.0 Comments: Vitamin D deficiency has been defined by the [place] of[place] and an Endocrine Society practice guideline as alevel of serum 25-OH vitamin D less than 20 ng/mL (1,2).The Endocrine Society went on to further define vitamin Dinsufficiency as a level between 21 and 29 ng/mL (2).1. IOM ([place] of [place]). 2011. Dietary reference intakes for calcium and D. [place]: The National Academies Press.2. Micky MF, Yohana COBURN, Kennedy PAL, et al. Evaluation, treatment, and prevention of vitamin D deficiency: an Endocrine Society clinical practice guideline. JCEM. 2010; 96(7):1911-30. :44 LIPID PANEL (23959) Comments: PATIENT WAS FASTINGPERFORMED BY: [employer]6370 [facility] [id number] LDL/HDL Ratio 2.2 {ratio_units} (Normal) Range: 0.0-3.2 [...] PANEL, COMPREHENSIVE Comments: PATIENT WAS FASTINGPERFORMED BY: AM PharmaRobert Wood Johnson University Hospital at HamiltonLmwdin8179 [facility] [id number] (98792) ALT (SGPT) 18 [iU]/L (Normal) Range: 0-40 [...] (LACTATE DEHYDROGENASE) Comments: PATIENT WAS FASTINGPERFORMED BY: [employer] [place] [id number] (78123) LDH 175 [iU]/L (Normal) Range: 0-214 :44 FOLIC ACID SERUM (30634) Comments: PATIENT WAS FASTINGPERFORMED BY: [employer]6370 [employer]Town[employer] [place] [id number] Folate (Folic Acid), Serum >19.9 ng/mL (Normal) Comments: Indeterminate: 2.2 - 3.0 Deficient: <2.2 :44 VITAMIN B-12 (CYANOCOBALAMIN) Comments: PATIENT WAS FASTINGPERFORMED BY: [employer] EV Conversions70 [employer]Townbl[place] [id number] (59632) Vitamin B12 397 pg/mL (Normal) Range: 211-946 :44 CBC WITH MANUAL DIFF Comments: PATIENT WAS FASTINGPERFORMED BY: [employer] EV Conversions70 DigitalTownin [place] [id number] Information: [id number], [id number] (50343) Immature Grans (Abs) 0.0 {x10E3/uL} (Normal) Range: [...] 3.80-5.10 WBC 4.4 {x10E3/uL} (Normal) Range: 4.0-10.5 29-Tqc-195929:58 RIBS,UNI,MIN 3V,W/PA CHEST Radiology Report See Note [...] difficile Toxins Negative (Normal) Comments: PERFORMED BY: Lab[address] [id number] 4:58 A+B, EIA Occult Blood, Fecal, Negative (Normal) Comments: PERFORMED BY: [facility] Iowryy[address] [place] [address] [id number] 4:58 IA :58 Ova + Parasite Exam Comments: PERFORMED BY: [facility] [place] [address] [id number] Result 1 NOCP (Normal) Comments: No ova, cysts, or parasites seen. Ova + Parasite Exam Final report (Normal) Comments: These results were obtained using wet preparation(s) and trichromestained smear. This test does not include testing for Cryptosporidiumparvum, Cyclospora, or Microsporidia. :58 Stool Culture Comments: PERFORMED BY: [facility] Cetsbc[address] [place] [address] [id number] Information: SRC:ST E coli Shiga Toxin EIA Negative (Normal) Result 1 NCI (Normal) Comments: No Campylobacter species isolated. Campylobacter Culture Final report (Normal) Result 1 NSS (Normal) Comments: No Salmonella or Shigella recovered. Salmonella/Shigella Screen Final report (Normal) :58 White Blood Cells (WBC), Comments: PERFORMED BY: [facility] Ecmyhq9851 [facility] [id number] Stool Result 1 NWBC (Normal) Comments: No white blood cells seen. White Blood Cells (WBC), Final report (Normal) Comments: Reference Range: None Seen Stool 44-Ffy-790166:07 VITAMIN B-12 (CYANOCOBALAMIN) Comments: PATIENT NOT FASTINGPERFORMED BY: Cupid-LabsRobert Wood Johnson University Hospital at HamiltonVieyor5874 [facility] [id number] (16510) Vitamin B12 393 pg/mL (Normal) Range: 211-946 77-Opf-005059:07 IRON BINDING CAPACITY Comments: PATIENT NOT FASTINGPERFORMED BY: [facility]6370 [facility] [id number] Information: [id number] (TIBC) (73264) Iron Saturation 17 % (Normal) Range: 15-55 Iron, Serum 68 ug/dL (Normal) Range: 35-155 UIBC 335 ug/dL (Normal) Range: 150-375 Iron Bind.Cap.(TIBC) 403 ug/dL (Normal) Range: 250-450 43-Jev-193816:07 FERRITIN (98537) Comments: PATIENT NOT FASTINGPERFORMED BY: Cupid-LabsRobert Wood Johnson University Hospital at HamiltonMwayei0574 [facility] [id number] Ferritin, Serum 42 ng/mL (Normal) Range: 13-150 17-Nxx-186989:29 BRAIN/HEAD WITHOUT CONTRAST Radiology Report See Note [...] DIFF Comments: PATIENT WAS FASTINGPERFORMED BY: [facility] Ngwogg1677 [facility] [id number] Information: ADD [id number] AND DRAW FEE 99 5932 (90445) Immature Grans (Abs) 0.0 {x10E3/uL} (Normal) Range: [...] PANEL, COMPREHENSIVE Comments: PATIENT WAS FASTINGPERFORMED BY: [employer]versions70 [facility] [id number] (98677) ALT (SGPT) 30 [iU]/L (Normal) Range: 0-40 [...] mg/dL (Normal) Range: 65-99 :32 LIPID PANEL (09618) Comments: PATIENT WAS FASTINGPERFORMED BY: [employer] EV Conversions70 [facility] [id number] LDL/HDL Ratio 2.6 {ratio_units} (Normal) Range: 0.0-3.2 LDL Cholesterol Calc 118 mg/dL (Abnormal) Range: 0-99 VLDL Cholesterol Rocky 28 mg/dL (Normal) Range: 5-40 HDL Cholesterol 46 mg/dL (Normal) Comments: According to ATP-III Guidelines, HDL-C >59 mg/dL is considered anegative risk factor for CHD. Triglycerides 141 mg/dL (Normal) Range: 0-149 Cholesterol, Total 192 mg/dL (Normal) Range: 100-199 :32 TSH (46648) Comments: PATIENT WAS FASTINGPERFORMED BY: [employer]6370 [employer] [id number] TSH 3.120 {uIU/mL} (Normal) Range: 0.450-4.500 :32 Vitamin D Hydroxy (12135) Comments: PATIENT WAS FASTINGPERFORMED BY: [employer]6370 [facility] CenterREHblin [place] [id number] Vitamin D, 25-Hydroxy 57.0 ng/mL (Normal) Range: 32.0-100.0 Comments: Effective July 24, 2011 Vitamin D, 25-Hydroxy reference intervals will be changing to 30-100. .Recent studies consider the lower li geovanny of 32.0 ng/mL to be athreshold for optimal health.Sandhu BW. J Nutr. 2004;135(2):317-. :38 Vitamin D Hydroxy (56826) Comments: PATIENT WAS FASTINGPERFORMED BY: [facility] Qjtujq0557 [facility] [place] [id number] Vitamin D, 25-Hydroxy 59.4 ng/mL (Normal) Range: 32.0-100.0 Comments: Recent studies consider the lower limit of 32.0 ng/mL to be athreshold for optimal health.Sandhu BW. J Nutr. 2004;135(2):317-22. :38 METABOLIC PANEL, Comments: PATIENT WAS FASTINGPERFORMED BY: [employer] Vdbrtv4530 [facility] [place] [id number] Information: [id number] COMPREHENSIVE (12980) ALT (SGPT) 14 [iU]/L (Normal) Range: 0-40 [...] mg/dL (Normal) Range: 65-99 :38 LIPID PANEL (31503) Comments: PATIENT WAS FASTINGPERFORMED BY: LabCoRobert Wood Johnson University Hospital at HamiltonBatkbr0569 [facility] [id number]; 02/14/11 LDL Cholesterol Calc 120 mg/dL (Abnormal) Range: 0-99 LDL/HDL Ratio 2.5 {ratio_units} (Normal) Range: 0.0-3.2 HDL Cholesterol 48 mg/dL (Normal) Comments: According to ATP-III Guidelines, HDL-C >59 mg/dL is considered anegative risk factor for CHD. VLDL Cholesterol Rocky 31 mg/dL (Normal) Range: 5-40 Cholesterol, Total 199 mg/dL (Normal) Range: 100-199 Triglycerides 155 mg/dL (Abnormal) Range: 0-149 78-Xbh-196893:44 CBC With Differential/Platelet Comments: A courtesy copy of this report has been sent [phone].PATIENT WAS FASTINGPERFORMED BY: [facility] Srbazu0010 [facility] [id number] Information: [id number] Immature Grans (Abs) 0.0 {x10E3/uL} (Normal) Range: [...] 3.80-5.10 WBC 4.6 {x10E3/uL} (Normal) Range: 4.0-10.5 55-Rge-971669:44 Comp. Metabolic Panel (14) Comments: A courtesy copy of this report has been sent [phone].PATIENT WAS FASTINGPERFORMED BY: LabCoRobert Wood Johnson University Hospital at HamiltonTdtlbg9416 [facility] [id number] ALT (SGPT) 16 [iU]/L (Normal) Range: 0-40 [...] Glucose, Serum 91 mg/dL (Normal) Range: 65-99 51-Cak-865620:44 Lipid Panel With LDL/HDL Comments: A courtesy copy of this report has been sent [phone].PATIENT WAS FASTINGPERFORMED BY: Cupid-LabsRobert Wood Johnson University Hospital at HamiltonMepmun5932 [facility] [id number] Ratio LDL Cholesterol Calc 215 mg/dL (Abnormal) [...] copy of this report has been sent [phone].PATIENT WAS FASTINGPERFORMED BY: Cupid-LabsRobert Wood Johnson University Hospital at HamiltonLbuard7434 [facility] [id number] 1:44 Range: 32.0-100.0 Comments: Recent studies consider the lower limit of 32.0 ng/mL to be athreshold for optimal health.Edson WRIGHT. J Nutr. 2004;135(2):317-22. 14-Rjp-15747:56 BILAT SCRN DIGITAL & CAD Radiology Report See Note (Normal) Comments: Exam Number: [id number] AMMOGRAPHY - BILATERAL SCREENING INDICATION:Routine annual screening [...] attaching a ResultCode to this exam. ADDENDUM: [id number] HPBI/MDS Reported By: CLEVELAND CHAND M.D. 55-Pzr-62681:26 Metabolic Panel, Comments: PATIENT WAS FASTINGPERFORMED BY: LabCoRobert Wood Johnson University Hospital at HamiltonVcbnog2880 [facility] [id number] Information: [id number] Comprehensive (61295) ALT (SGPT) 19 [iU]/L (Normal) Range: 0-40 [...] 91 mg/dL (Normal) Range: 65-99 :26 TSH (63802) Comments: PATIENT WAS FASTINGPERFORMED BY: [facility] Wqwzkp6252 [facility] [place] [id number] TSH 3.450 {uIU/mL} (Normal) Range: 0.450-4.500 :26 Vitamin D Hydroxy (44416) Comments: PATIENT WAS FASTINGPERFORMED BY: Fredio [facility] Troifq5799 [facility] [id number] Vitamin D, 25-Hydroxy 61.8 ng/mL (Normal) Range: 32.0-100.0 Comments: Recent studies consider the lower limit of 32.0 ng/mL to be athreshold for optimal health.Edson WRIGHT. J Nutr. 2004;135(2):317-22. :26 Lipid Panel (07596) Comments: PATIENT WAS FASTINGPERFORMED BY: Fredio [facility] Mgdbse3891 [facility] [id number] Cholesterol, Total 234 mg/dL (Abnormal) Range: 100-199 [...] PANEL, Comments: PATIENT WAS FASTINGPERFORMED BY: [facility] Prvicd7903 [facility] [id number] Information: [id number] COMPREHENSIVE (27607) A/G Ratio 1.7 (Normal) Range: 1.1-2.5 Alkaline [...] (Normal) Range: 65-99 :40 HEPATIC FUNCTION PANEL (85642) Comments: PATIENT WAS FASTINGPERFORMED BY: LabCoRobert Wood Johnson University Hospital at HamiltonEansjc4586 [facility] [id number] Bilirubin, Direct 0.10 mg/dL (Normal) Range: 0.00-0.40 :40 LIPID PANEL (58644) Comments: PATIENT WAS FASTINGPERFORMED BY: Cupid-LabsRobert Wood Johnson University Hospital at HamiltonBomhaq4451 [facility] [id number] LDL Cholesterol Calc 121 mg/dL (Abnormal) Range: 0-99 LDL/HDL Ratio 2.5 {ratio_units} (Normal) Range: 0.0-3.2 VLDL Cholesterol Rocky 44 mg/dL (Abnormal) Range: 5-40 HDL Cholesterol 49 mg/dL (Normal) Comments: According to ATP-III Guidelines, HDL-C >59 mg/dL is considered anegative risk factor for CHD. Triglycerides 220 mg/dL (Abnormal) Range: 0-149 Cholesterol, Total 214 mg/dL (Abnormal) Range: 100-199 :40 Vitamin D Hydroxy (58979) Comments: PATIENT WAS FASTINGPERFORMED BY: Cupid-LabsRobert Wood Johnson University Hospital at HamiltonPurboz5171 [facility] [id number] Vitamin D, 25-Hydroxy 57.9 ng/mL (Normal) Range: 32.0-100.0 Comments: Recent studies consider the lower limit of 32.0 ng/mL to be athreshold for optimal health.Edson WRIGHT. J Nutr. 2004;135(2):317-22. :22 Comp. Metabolic Panel (14) Comments: PATIENT WAS FASTINGPERFORMED BY: Cupid-LabsRobert Wood Johnson University Hospital at HamiltonQpeccw2759 [facility] [id number] ALT (SGPT) 14 [iU]/L (Normal) Range: 0-40 [...] Panel (7) Comments: PATIENT WAS FASTINGPERFORMED BY: [employer] EV Conversions70 [facility]TownAt[facility] [id number] Bilirubin, Direct 0.10 mg/dL (Normal) Range: 0.00-0.40 :22 Lipid Panel With LDL/HDL Comments: PATIENT WAS FASTINGPERFORMED BY: [employer] EV Conversions70 DigitalTownAt[facility] [id number] Ratio LDL Cholesterol Calc 158 mg/dL (Abnormal) [...] ng/mL (Normal) Comments: PATIENT WAS FASTINGPERFORMED BY: Plastiques WolinakAtrium Health [place] [id number] :22 Range: 32.0-100.0 Comments: Recent studies consider the lower limit of 32.0 ng/mL to be athreshold for optimal health.Edson WRIGHT. J Nutr. 2004;135(2):317-22. 06-Jul-20098:40 BILAT SCRN DIGITAL & CAD Radiology Report See Note (Normal) Comments: Exam Number: [id number] DIGITAL BILATERAL MAMMOGRAM Digital oblique and craniocaudal [...] mammograms werealso examined with computer-aided detection software ([employer], [employer] Reported By: ZBIGNIEW CARROLL :39 DEXA BONE DENSITY STUDY (HP) Radiology Report See Note (Normal) Comments: Exam Number: [id number] BONE DENSITOMETRY HISTORYOsteopenia. TECHNIQUE Bone densitometry of the lumbar spine and both hips is now beingperformed. The best criteria for evaluation of osteoporosis is theT-value, which represents the comparison of the patient's bone mass gorge expected peak bone mass. For most patients, the mean T-value of J0fxiafmx L4 is used to evaluate the lumbar [...] CLEVELAND CHAND M.D. :25 Vitamin D Hydroxy (71770) Comments: PATIENT NOT FASTINGPERFORMED BY: [employer] WolinakAcylin Therapeutics [place] [id number] Vitamin D, 25-Hydroxy 39.8 ng/mL (Normal) Range: 32.0-100.0 Comments: Recent studies consider the lower limit of 32.0 ng/mL to be athreshold for optimal health.Edson WRIGHT. J Nutr. 2004;135(2):317-22. :25 HEPATIC FUNCTION PANEL Comments: PATIENT NOT FASTINGClinical Information: ADD DRAW FEE 597919 AND J0 1954 PERFORMED BY: Plastiques WolinakAtrium Health [facility] [id number] (67838) Albumin, Serum 4.1 g/dL (Normal) Range: 3.6-4.8 Alkaline Phosphatase, S 78 [iU]/L (Normal) Range: 25-165 ALT (SGPT) 14 [iU]/L (Normal) Range: 0-40 AST (SGOT) 24 [iU]/L (Normal) Range: 0-40 Bilirubin, Direct 0.08 mg/dL (Normal) Range: 0.00-0.40 Bilirubin, Total 0.4 mg/dL (Normal) Range: 0.1-1.2 Protein, Total, Serum 6.8 g/dL (Normal) Range: 6.0-8.5 :25 LIPID PANEL (81374) Comments: PATIENT NOT FASTINGPERFORMED BY: Plastiques WolinakAtrium Health [place] [id number] Cholesterol, Total 307 mg/dL (Abnormal) Range: 100-199 HDL Cholesterol 45 mg/dL (Normal) Comments: According to ATP-III Guidelines, HDL-C >59 mg/dL is considered anegative risk factor for CHD. LDL Cholesterol Calc 224 mg/dL (Abnormal) Range: 0-99 LDL/HDL Ratio 5.0 {ratio_units} (Abnormal) Range: 0.0-3.2 Triglycerides 190 mg/dL (Abnormal) Range: 0-149 VLDL Cholesterol Rocky 38 mg/dL (Normal) Range: 5-40 04-Rqn-341484:13 METABOLIC PANEL, COMPREHENSIVE Comments: PATIENT WAS FASTINGClinical Information: ADD DRAW FEE AND [id number] PERFORMED BY: LabCoRobert Wood Johnson [facility] Hospital at HamiltonYdvmok2305 [facility] [id number] (06938) A/G Ratio 1.6 (Normal) Range: 1.1-2.5 Albumin, [...] Sodium, Serum 145 mmol/L (Normal) Range: 135-145 52-Vbu-026842:13 TSH (00794) Comments: PATIENT WAS FASTINGPERFORMED BY: [employer] [facility] [id number] TSH 2.300 {uIU/mL} (Normal) Range: 0.450-4.500 27-Ygp-643220:13 HEPATIC FUNCTION PANEL Comments: PATIENT WAS FASTINGPERFORMED BY: Digital H2O [facility] [id number] (15978) Bilirubin, Direct 0.11 mg/dL (Normal) Range: 0.00-0.40 27-Zdn-938744:13 LIPID PANEL (29726) Comments: PATIENT WAS FASTINGPERFORMED BY: [employer] Cnqpns[address] [place] [address] [id number] Cholesterol, Total 303 mg/dL (Abnormal) Range: 100-199 HDL Cholesterol 54 mg/dL (Normal) Comments: According to ATP-III Guidelines, HDL-C >59 mg/dL is considered anegative risk factor for CHD. LDL Cholesterol Calc 218 mg/dL (Abnormal) Range: 0-99 LDL/HDL Ratio 4.0 {ratio_units} (Abnormal) Range: 0.0-3.2 Triglycerides 157 mg/dL (Abnormal) Range: 0-149 VLDL Cholesterol Rocky 31 mg/dL (Normal) Range: 5-40 29-Huq-94566:17 HEPATIC FUNCTION PANEL Comments: PATIENT WAS FASTINGClinical Information: ADD DRAW FEE [id number] ADD J 59180 PERFORMED BY: AM [employer]arma[address] [id number] (52830) Albumin, Serum 4.3 g/dL (Normal) Range: 3.6-4.8 Alkaline Phosphatase, S 75 [iU]/L (Normal) Range: 25-165 ALT (SGPT) 18 [iU]/L (Normal) Range: 0-40 AST (SGOT) 32 [iU]/L (Normal) Range: 0-40 Bilirubin, Direct 0.13 mg/dL (Normal) Range: 0.00-0.40 Bilirubin, Total 0.6 mg/dL (Normal) Range: 0.1-1.2 Protein, Total, Serum 7.0 g/dL (Normal) Range: 6.0-8.5 :17 LIPID PANEL (89611) Comments: PATIENT WAS FASTINGPERFORMED BY: Kosmix Yyehxb2175 [facility] [id number] Cholesterol, Total 292 mg/dL (Abnormal) Range: 100-199 [...] Panel (14) Comments: PATIENT WAS FASTINGPERFORMED BY: Applifier Hlantp9246 [facility] [id number] A/G Ratio 1.5 (Normal) Range: 1.1-2.5 Albumin, [...] Serum 86 mg/dL (Normal) Range: 65-99 If -Mosotho >59 mL/min/1.73 Comments: Note: Persistent reduction for [...] Panel (7) Comments: PATIENT WAS FASTINGPERFORMED BY: Fredio LabCoNitroAfcdgr3695 [facility] [id number] Bilirubin, Direct 0.11 mg/dL (Normal) Range: 0.00-0.40 :47 Lipid Panel With LDL/HDL Comments: PATIENT WAS FASTINGPERFORMED BY: Fredio [facility] Kgsdzw8313 [facility] [id number] Ratio Cholesterol, Total 325 mg/dL (Abnormal) Range: [...] Cholesterol Rocky 47 mg/dL (Abnormal) Range: 5-40 98-Nsh-30660:49 PELVIS WITH CONTRAST Radiology Report See Note (Normal) Comments: Exam Number: [id number] CT ABDOMEN WITHOUT AND WITH CONTRAST AND [...] or pelvis. Reported By: TITA FULLER M.D. 30-Eqr-90811:48 ABDOMEN W/WO CONTRAST Radiology Report See Note (Normal) Comments: Exam Number: [id number] CT ABDOMEN WITHOUT AND WITH CONTRAST AND [...] Report See Note (Normal) Comments: Exam Number: [id number] DIGITAL SCREENING MAMMOGRAMS WITH CAD COMPARISON STUDYAugus2006 [...] mammograms werealso examined with computer-aided detection software ([employer], [employer] Reported By: TITA FULLER M.D. :30 [...] Report See Note (Normal) Comments: Exam Number: [id number] THREE VIEWS OF THE LEFT INDEX FINGER [...] Reported By: JULIO BRANCH M.D. :53 RENUKA-D [id number] RENUKA-DIRECT 27 AU/mL (Normal) Range: 0-99 Comments: [...] {IU/mL} (Normal) Range: 0.0-13.9 Comments: Performed At: [address] [id number] :53 URIC 3.4 mg/dL (Normal) Range: 2.6-6.0 [...] Report See Note (Normal) Comments: Exam Number: [id number] CT SCAN OF ABDOMEN AND PELVIS HISTORYEnlarged pancreas. Following the oral administration of contrast, scans were obtainedthrough the pancreas at 2.5-mm intervals without intraven ous contrastenhancement. With the intravenous administration of 100 mL of Unnbin714, scans were obtained at 2.5-mm intervals through [...] 2006. A previous noncontrast examination performed through [facility] is available. This wa s performed June [...] colonic diverticulosis. Reported By: CLEVELAND CHAND M.D. 81-Bwe-87585:08 PELVIS WITH CONTRAST Radiology Report See Note (Normal) Comments: Exam Number: [id number] CT SCAN OF ABDOMEN AND PELVIS HISTORYEnlarged pancreas. Following the oral administration of contrast, scans were obtainedthrough the pancreas at 2.5-mm intervals without intraven ous contrastenhancement. With the intravenous administration of 100 mL of Jelxyt777, scans were obtained at 2.5-mm intervals through [...] 2006. A previous noncontrast examination performed through [facility] is available. This wa s performed June [...] colonic diverticulosis. Reported By: CLEVELAND CHAND M.D. 74-Oog-682467:55 DEXA BONE DENSITY STUDY () Radiology Report See Note (Normal) Comments: Exam Number: [id number] BONE DENSITOMETRY HISTORYOsteopenia. TECHNIQUE Bone densitometry of [...] Reported By: CLEVELAND CHAND M.D. :46 TSH (56675) Comments: PATIENT NOT FASTINGClinical Information: ADD DRAW FEE [id number] ADD J0 3378 DIFFICULT DRAW PERFORMED BY: [facility] [facility] [id number] TSH 1.980 {uIU/mL} (Normal) Range: 0.350-5.500 :46 [...] 5-40 :02 Fecal Occult Blood , Office (20409) Comments: NEG Fecal Occult Blood , Office Negative (Normal) Comments: X3 :07 BILAT SCRN DIGITAL & CAD Radiology Report See Note (Normal) Comments: Exam Number: [id number] BILATERAL SCREENING DIGITAL MAMMOGRAPHY AND CAD. REASON [...] mammograms werealso examined with computer-aided detection software (ImageCursogram.). Reported By: TITA FULLER :46 COMP METABOLIC [...] 4804 5.8 mg/dL (Abnormal) Range: 4.5-5.6 :46 PTH,[id number] PTH,Intact 19 pg/mL (Normal) Range: 12-65 Comments: Performed At: [address] [id number] :36 L/S SPINE,MIN 4 VIEWS Radiology Report See Note (Normal) Comments: Exam Number: [id number] LUMBAR SPINE, 5 VIEWS HISTORYLow back spine. [...] Report See Note (Normal) Comments: Exam Number: [id number] CT OF THE ABDOMEN WITH AND WITHOUT CONTRAST AND CT OF THE PELVIS WITHCONTRAST STATEMENTFollowup of pancreas and adrenal glands. COMPARISONAbdominal CT of June 18, 2006, and [facility] CT of March 22, 2006. [...] adrenal gland. Reported By: PRABHAKAR ROTH M.D. 58-Whw-93799:25 PELVIS WITH CONTRAST Radiology Report See Note (Normal) Comments: Exam Number: [id number] CT OF THE ABDOMEN WITH AND WITHOUT CONTRAST AND CT OF THE PELVIS WITHCONTRAST STATEMENTFollowup of pancreas and adrenal glands. COMPARISONAbdominal CT of June 18, 2006, and [facility] CT of March 22, 2006. [...] adrenal gland. Reported By: PRABHAKAR ROTH M.D. 10-Xro-41928:57 COMP METABOLIC A/G 1.1 {RATIO} (Normal) Range: [...] VLDL 33 mg/dL (Normal) Range: 5-40 :57 PTH,[id number] PTH,Intact 16 pg/mL (Normal) Range: 12-65 Comments: Performed At: [address] [id number] :45 BMP BUN 10 mg/dL (Normal) Range: [...] Indication: Epigastric pain Epigastric pain : Reviewed Egg Worker Letter Indication: Epigastric pain Hypercholesterolemia : Cholesterol [...] unspecified iron deficiency anemia type : Reviewed Egg Worker Letter-- colonoscopy 04/19-pelon Indication: Iron deficiency anemia, [...] Female Indication: Acute sinusitis Planned Observations CALCIFIDIOL (41887) VIT D 25Indication: Vitamin D deficiency, unspecified On: :57 Request TSH ([id number])Indication: Abnormal glucose tolerance test (Renamed from Abnormal glucose tolerance test (GTT)) On: :57 Request URINALYSIS, W/ MICRO (87713)Indication: Abnormal glucose tolerance test (Renamed from Abnormal glucose tolerance test (GTT)) On: :57 Request MICROALBUMIN: CREATININE RATIO ([id number]) AND ([id number])Indication: Abnormal glucose tolerance test (Renamed from Abnormal glucose tolerance test (GTT)) On: :57 Request METABOLIC PANEL, COMPREHENSIVE ([id number])Indication: Abnormal glucose tolerance test (Renamed from Abnormal glucose tolerance test (GTT)) On: :57 Request LIPOPROTEIN, BLD, BY NMR ([id number])Indication: Hypercholesterolemia On: :57 Request CBC, PLATELETS & AUT DIFF (43689)Indication: Iron deficiency anemia, unspecified iron deficiency anemia type On: :57 Request VITAMIN B-12 (CYANOCOBALAMIN) (92426)Indication: Other dietary vitamin B12 deficiency anemia On: :56 Request IRON BINDING CAPACITY (TIBC) (14327)Indication: Iron deficiency anemia, unspecified iron deficiency anemia type On: :56 Request IRON (94700)Indication: Iron deficiency anemia, unspecified iron deficiency anemia type On: 5-Mmg-477698:56 Request FERRITIN (23116)Indication: Iron deficiency anemia, unspecified iron deficiency anemia type On: 8-Rmy-222834:56 Request Lipid Panel (98786)Indication: Hypercholesterolemia On: 67-Rhr-342408:39 Request MICROALBUMIN: CREATININE RATIO (31295) AND (72703)Indication: Abnormal glucose tolerance test (Renamed from Abnormal glucose tolerance test (GTT)) On: 9-Zdq-049518:03 Request URINALYSIS (00488)Indication: Abnormal glucose tolerance test (Renamed from Abnormal glucose tolerance test (GTT)) On: 9-Xfe-143880:03 Request XJYVA-ZTHNZKCJXUM-NQCAS (53389)Indication: Hyperlipidemia, mixed On: 1-Jdf-923268:16 Request CALCIFEDIOL (94049)Indication: Vitamin D deficiency, unspecified On: 5-Uqu-367492: Request IRON (48523)Indication: Iron deficiency anemia, unspecified iron deficiency anemia type On: 30-Auj-833076:20 Request IRON ([id number])Indication: Anemia, unspecified On: 00-Byd-515191:48 Request Urine Protein Electrophoresis (UPEP) (39541)Indication: Elevated serum globulin level On: 09-Kjn-073485:48 Request MICROALBUMIN: CREATININE RATIO (32648) AND (67773)Indication: Hypercholesterolemia On: :14 Request Comments: 09/19 VITAMIN B12 AND FOLATES (32053)Indication: Hypercholesterolemia On: :14 Request Comments: 09/19 CALCIFEDIOL (65734)Indication: Hypercholesterolemia On: :14 Request Comments: 09/19 TSH (THYROID STIMULATING HORMONE) (57668)Indication: Hypercholesterolemia On: :14 Request Comments: 09/19 METABOLIC PANEL, COMPREHENSIVE (79957)Indication: Hypercholesterolemia On: :14 Request Comments: 09/19 CBC, PLATELETS & AUT DIFF (52759)Indication: Hypercholesterolemia On: :14 Request Comments: 09/19 LIPID PANEL (12149)Indication: Hypercholesterolemia On: :14 Request Comments: 09/19 LIPID PANEL (22378)Indication: Hypercholesterolemia On: :13 Request Comments: 06/18 METABOLIC PANEL, COMPREHENSIVE (40183)Indication: Hypercholesterolemia On: 25-Gim-560250:13 Request Comments: 06/18 LIPASE (99967)Indication: Vitamin D deficiency, unspecified On: : Request Vitamin D Hydroxy (18604)Indication: Vitamin D deficiency, unspecified On: : Request METABOLIC PANEL, COMPREHENSIVE (04143)Indication: Fatty liver On: :00 Request LIPID PANEL (36808)Indication: Hypercholesterolemia On: :00 Request LIPID PANEL (85004)Indication: Hypercholesterolemia On: :33 Request METABOLIC PANEL, COMPREHENSIVE (27172)Indication: Hypercalcemia On: :33 Request Vitamin D Hydroxy (93631)Indication: Vitamin D deficiency, unspecified On: :33 Request LIPASE (23110)Indication: Abnormal blood finding On: :28 Request AMYLASE (47812)Indication: Abnormal blood finding On: :28 Request URINE MAHENDRA CULTURE-IDENTIFICATN (20760)Indication: Urinary tract infection On: 1-Omo-138202:11 Request Comments: repeat after finishing atb LIPID PANEL (27778)Indication: Hypercholesterolemia On: :43 Request CALCIUM SERUM (48068)Indication: Hypercalcemia On: :03 Request Vitamin D Hydroxy (00511)Indication: Hypercalcemia On: :03 Request Vitamin D Hydroxy (95616)Indication: Vitamin D deficiency, unspecified On: :28 Request CBC WITH MANUAL DIFF (78599)Indication: Anemia, unspecified On: :27 Request LIPID PANEL (94292)Indication: Hypercholesterolemia On: :27 Request METABOLIC PANEL, COMPREHENSIVE (13963)Indication: Hypercalcemia On: : Request OVA & PARASITE DIR SMEAR (16887)Indication: Diarrhea On: :50 Request OCCULT BLOOD FECES SCREEN (95665)Indication: Diarrhea On: :50 Request LEUKOCYTE COUNT, FECAL (68564)Indication: Diarrhea On: 29-Nol-418304:50 Request C-DIFFICILE, STOOL (29652)Indication: Diarrhea On: 60-Pwh-906061:50 Request MAHENDRA CULTURE-STOOL (45531)Indication: Diarrhea On: 23-Fgg-482761:50 Request IRON ([id number])Indication: Anemia, unspecified On: 58-Puq-982791:25 Request Vitamin D Hydroxy (83371)Indication: Osteopenia On: :25 Request METABOLIC PANEL, COMPREHENSIVE (47539)Indication: Gastritis, acute On: :25 Request LIPID PANEL (42583)Indication: Hypercholesterolemia On: :25 Request Vitamin D Hydroxy (09552)Indication: Vitamin D deficiency, unspecified On: 15-Vcw-768572:13 Request HEPATIC FUNCTION PANEL (14920)Indication: Hypercholesterolemia On: :13 Request LIPID PANEL (97354)Indication: Hypercholesterolemia On: :13 Request HEPATIC FUNCTION PANEL (19442)Indication: Hypercholesterolemia On: :31 Request LIPID PANEL (29303)Indication: Hypercholesterolemia On: :31 Request METABOLIC PANEL, COMPREHENSIVE (62029)Indication: Hypercalcemia On: 46-Soh-15413:16 Request HEPATIC FUNCTION PANEL (17858)Indication: Hypercholesterolemia On: :16 Request LIPID PANEL (56200)Indication: Hypercholesterolemia On: :16 Request CBC WITH MANUAL DIFF (09601)Indication: Hypercalcemia On: :20 Request TSH (15974)Indication: Hypercalcemia On: :20 Request METABOLIC PANEL, COMPREHENSIVE (64560)Indication: Hypercalcemia On: :20 Request HEPATIC FUNCTION PANEL ([id number])Indication: Hypercholesterolemia On: :19 Request LIPID PANEL (53094)Indication: Hypercholesterolemia On: :19 Request Uric Acid Blood (23040)Indication: arthritis left first digit On: :53 Request SED RATE ERYTHROCYTE (60529)Indication: arthritis left first digit On: 48-Bpf-88055:53 Request C-REACTIVE PROTEIN (03791)Indication: arthritis left first digit On: :53 Request RHEUMATOID FACTOR-QUANT (39579)Indication: arthritis left first digit On: 33-Kvy-86739:53 Request RENUKA (ANTINUCLEAR ANTIBODY) (45606)Indication: arthritis left first digit On: :53 Request LIPID PANEL (36219)Indication: Hypercholesterolemia On: :06 Request HEPATIC FUNCTION PANEL (96583)Indication: Hypercholesterolemia On: :06 Request METABOLIC PANEL, COMPREHENSIVE ([id number])Indication: Hypercalcemia On: 50-Guc-745241:37 Request HEPATIC FUNCTION PANEL (14129)Indication: Hypercholesterolemia On: 83-Wtp-784747:37 Request LIPID PANEL (02630)Indication: Hypercholesterolemia On: :37 Request METABOLIC PANEL, COMPREHENSIVE (06910)Indication: Hypercalcemia On: :40 Request HEPATIC FUNCTION PANEL (21038)Indication: Hypercholesterolemia On: :40 Request LIPID PANEL (31021)Indication: Hypercholesterolemia On: :40 Request METABOLIC PANEL, COMPREHENSIVE ([id number])Indication: Hypercalcemia On: 26-Qsj-128174:08 Request HEPATIC FUNCTION PANEL (23942)Indication: Hypercholesterolemia On: 21-Qjr-789685:07 Request LIPID PANEL (50483)Indication: Hypercholesterolemia On: 07-Cdl-849498:07 Request HEPATIC FUNCTION PANEL (66819)Indication: Hypercholesterolemia On: :58 Request Comments: 3 mos LIPID PANEL ([id number])Indication: Hypercholesterolemia On: 36-Dhm-461413:58 Request Planned Encounters Medical; 4 Month FU - On: 04-Nov-2018 8:30 [facility] Camryn Faith DO, DO, Kathleen Planned Procedures B 12 Injection, 1000 mcg (J3420)By: On: 05-Jul-2018 Intent Camryn Faith DO, DO, Comments: 1 ml given lt dltd lot [id number] exp 12/21 Camryn DEXA SCAN AXIAL SKELETON (71887)By: On: 24-Apr-2018 Intent Camryn Faith DO, DO, Kathleen ABDOMINAL ULTRASOUND, LIMITED On: 10-Apr-2018 Intent (09372)By: Camryn Faith DO, DO, Kathleen ELECTROCARDIOGRAM, COMPLETE (ECG) On: 10-Apr-2018 Intent (70829)By: Camryn Faith DO Comments: nsr no acute chg Camryn Faith DO Nuclear Stress Test/Stress On: 10-Apr-2018 Intent SPECT/TreadmillBy: Camryn Faith DO, DO, Kathleen Echo CompleteBy: Marcell YEE, On: 10-Apr-2018 Intent Camryn Dykes DO ELECTROCARDIOGRAM, COMPLETE (ECG) On: 05-Dec-2017 Intent (59342)By: Camryn Faith DO Comments: nsr no acute chg Camryn Faith DO DEXA SCAN AXIAL SKELETON (59603)By: On: 05-Dec-2017 Intent Camryn Faith DO, DO, Kathleen US DOPPLER CAROTID BILATERAL On: 05-Dec-2017 Intent (08673)By: Camryn Faith DO, DO, Kathleen ELECTROCARDIOGRAM, COMPLETE (ECG) On: 03-Aug-2017 Intent (05831)By: Camryn Faith DO Comments: nsr no acute chg Camryn Faith DO US DOPPLER CAROTID BILATERAL On: 03-Aug-2017 Intent (40632)By: Camryn Faith DO, DO, Kathleen Flu Vaccine (Quadrivalent) 37905Rh: On: 11-Jun-2017 Intent Camryn Faith DO, DO, Comments: QUAD flu shotlot number: [id number]: 12/2017L Deltoid 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 Camryn B 12 Injection, 1000 mcg (J3420)By: On: 03-May-2017 Intent Camryn Faith DO, DO, Comments: 1 ml given rt arm lot [id number] exp 10/22 Camryn MAMMOGRAM, BOTH SIDES (66288)By: On: 05-Dec-2016 Intent Camryn Faith DO, DO, Comments: due after 02/14/17 Camryn Ultrasound - Abdomen Complete & On: 26-Apr-2016 Intent PelvisBy: Royal Perea MD DEXA SCAN AXIAL SKELETON (49141)By: On: 25-Jan-2016 Intent Kylie Haywood DO MAMMOGRAM, SCREENING, BOTH BREAST On: 25-Jan-2016 Intent (80269)By: Kylie Haywood DO Cartoid DopplerBy: Yobany YEE Kylie A On: 25-Jan-2016 Intent Radiology - Lumbar SpineBy: Fast On: 22-Oct-[address] - Abdomen (IV Contrast On: 22-Oct-2015 Intent Needed)By: Kylie Haywood DO Flu Vaccine (Quadrivalent) 44093Er: On: 25-Jun-2015 Intent Itzel Boucher LPN Comments: Lot #Lot #[id number]-L dltd, IMDose prefilled syringeVIS and ABN signedgiven by:DERRICK mahmood MAMMOGRAM, SCREENING, BOTH BREAST On: 09-Feb-2015 Intent (40496)By: Kylie Haywood DO Cartoid DopplerBy: Kylie Haywood DO On: 09-Feb-2015 Intent IMMUNIZ ADMNIN, 1 VAC, SNGL/COMBO On: 25-Jun-2014 Intent (18327)By: Magdalena Leroy ZOSTER VACC, [place] (04902)By: Mariaa, On: 25-Jun-2014 Intent Magdalena EKG (52454)By: Kylie Haywood DO On: 19-May-2014 Intent Comments: ekg showed normal sinus rhythym, normal axis, no acute st/t wave changes MAMMOGRAM, SCREENING, BOTH BREASTS On: 06-Jan-2014 Intent (69325)By: Kylie Haywood DO Eprescribed prescriptions On: 06-Jan-2014 Intent (G8553)By: Kylie Haywood DO Dlvnzhcpy-Acd-Cfnk (24761)By: Yobany On: 14-Oct-2013 Intent Kylie YEE Pelvic and Breast, Medicare On: 14-Oct-2013 Intent (G0101)By: Kylie Haywood DO A Eprescribed prescriptions On: 08-Sep-2013 Intent (G8553)By: Magdalena Leroy ADMINISTRATION OF INFLUENZA VIRUS On: 09-Jun-2013 Intent VACCINE (G0008)By: Kim MEZA, Comments: Lot:[id number]:0.5mLSite: L Dltd, IMGiven by: DERRICK SilvermanVIS signed Shayla FLU VAC, SPLIT, >3 YEARS, INTRAMUSC On: 09-Jun-2013 Intent (24152)By: Shayla Alvarez LPN Spirometry (04332)By: Mariaa, On: 13-May-2013 Intent Magdalena Comments: good effort and curve normal EKG (84724)By: Kylie Haywood DO On: 13-May-2013 Intent Comments: ekg showed normal sinus rhythym, normal axis, no acute st/t wave changes DXA, BONE DENSITY, AXIAL SKELETON On: 13-May-2013 Intent (61126)By: Kylie Haywood DO Comments: alexus Eprescribed prescriptions On: 13-May-2013 Intent (G8553)By: Magdalena Leroy Eprescribed prescriptions On: 25-Apr-2013 Intent (G8553)By: Alicia Shaffer Ultrasound - Abdomen Complete & On: 22-Apr-2013 Intent PelvisBy: Purnima VALLE, Merle Eprescribed prescriptions On: 22-Apr-2013 Intent (G8553)By: Alicia Shaffer PNEUM VAC ADLT/IMUMNOSPR, SBC/INTRM On: 10-Jan-2013 Intent (18804)By: Kylie Haywood DO Comments: lot: [id number]: 03/06/14site/route: L deltoid/IMamt: 0.5mlVIS signed when applicable: OSCAR Liu ADMINISTRATION OF PNEUMOCOCCAL On: 10-Jan-2013 Intent VACCINE (G0009)By: Kylie Haywood DO Ultrasound - Abdomen CompleteBy: On: 16-Dec-[address] - AbdomenBy: Kylie Haywood DO On: 13-Dec-2012 Intent MAMMOGRAM, SCREENING, BOTH BREASTS On: 13-Dec-2012 Intent (93808)By: Kylie Haywood DO EKG (03708)By: Magdalena Leroy On: 06-Feb-2012 Intent Comments: ekg showed normal sinus rhythym, normal axis, no acute st/t wave changes TDAP VACCINE >7 IM (03404)By: Yobany On: 04-Jul-2011 Intent Kylie YEE Comments: Lot #[id number] arm, IMSite- Dose prefilledgiven by:Ale DXA, BONE DENSITY, AXIAL SKELETON On: 04-Jul-2011 Intent (60327)By: Kylie Haywood DO Spirometry (32852)By: Yobany EYE, On: 13-Jun-2011 Intent Kylie Farris Comments: good effort and curv enormal Bxmjqzsya-Irt-Zuahl (93695)By: Yobany On: 13-Jun-2011 Intent Kylie YEE Radiology - Chest- PA and LatBy: On: 13-Jun-2011 Intent Kylie Haywood DO MAMMOGRAM, SCREENING, BOTH BREASTS On: 13-Jun-2011 Intent (10755)By: Kylie Haywood DO Comments: nov Cartoid DopplerBy: Kylie Haywood DO On: 13-Jun-2011 Intent FLU VAC, SPLIT, >3 YEARS, INTRAMUSC On: 13-Jun-2011 Intent (26413)By: Magdalena Leroy Comments: Lot #:[id number] date:03/02/12Amount given:0.5mlRoute: IMSite given:left deltGiven by: PARIS Silver TD Injection , IM (80008)By: On: 13-Jun-2011 Intent Magdalena Leroy Comments: received in 1999 ADMINISTRATION OF INFLUENZA VIRUS On: 13-Jun-2011 Intent VACCINE (G0008)By: Magdalena Leroy CT - Brain/HeadBy: Kylie Haywood DO On: 19-Apr-2011 Intent Comments: stat call wet read EKG (74322)By: Magdalena Leroy On: 01-Nov-2010 Intent Comments: ekg showed normal sinus rhythym, normal axis, no acute st/t wave changes FLU VAC, SPLIT, >3 YEARS, INTRAMUSC On: 17-Jun-2010 Intent (48623)By: Magdalena Leroy Comments: Lot #: [id number] date: mount given: 0.5 mlRoute: IMSite given: left deltoidGiven by: Brenton Castillo RN MAMMOGRAM, SCREENING, BOTH BREASTS On: 17-Jun-2010 Intent (59059)By: Kylie Haywood DO ADMINISTRATION OF INFLUENZA VIRUS On: 17-Jun-2010 Intent VACCINE (G0008)By: Magdalena Leroy EKG (70717)By: Magdalena Leroy On: 27-Jul-2009 Intent Comments: ekg showed normal sinus rhythym, normal axis, no acute st/t wave changes MAMMOGRAM, SCREENING, BOTH BREASTS On: 27-Apr-2009 Intent (28100)By: Kylie Haywood DO A DXA, BONE DENSITY, AXIAL SKELETON On: 27-Apr-2009 Intent (25331)By: Se Haywood DOa A Comments: oct Nerve ConductionBy: Se Haywood DOa On: 23-Oct-2008 Intent A Comments: upper ext EMGBy: Se Haywood DOa A On: 23-Oct-2008 Intent Comments: upper ext CT - Abdomen & PelvisBy: Yobany YEE, On: 23-Jun-2008 Intent Kylie A FLU VAC, SPLIT, >3 YEARS, INTRAMUSC On: 23-Jun-2008 Intent (96362)By: Magdalena Leroy IMMUNIZ ADMNIN, 1 VAC, SNGL/COMBO On: 23-Jun-2008 Intent (99985)By: Magdalena Leroy EKG (20586)By: Magdalena Leroy On: 23-Jun-2008 Intent Comments: ekg showed normal sinus rhythym, normal axis, no acute st/t wave changes EKG (70589)By: Kylie Haywood DO A On: 25-Jun-2007 Intent Comments: ekg showed normal sinus rhythym, normal axis, no acute st/t wave changes CT - Abdomen & PelvisBy: Yobany YEE, On: 25-Jun-2007 Intent Kylie A DXA, BONE DENSITY, AXIAL SKELETON On: 25-Jun-2007 Intent (46984)By: Kylie Haywood DO A IMMUNIZ ADMNIN, 1 VAC, SNGL/COMBO On: 25-Jun-2007 Intent (39631)By: eS Haywood DOa A FLU VAC, SPLIT, >3 YEARS, INTRAMUSC On: 25-Jun-2007 Intent (07979)By: Se Haywood DOa A Comments: given in left deltoid, 0.5cc, lot#[id number], exp.03.02.08 WF Pneumovax (67670)By: Yobany YEE, On: 25-Jun-2007 Intent Kylie A Comments: given in right deltoid, 0.5cc, lot#[id number], exp.07.14.08 WF EKG (90217)By: Magdalena Leroy On: 25-Mar-2007 Intent Comments: ekg [...] The patient does have durable power of ward secretary and living will. The patient has noticed [...] The patient does have durable power of ward secretary and living will. The patient has noticed [...] The patient does have durable power of ward secretary and living will. The patient has noticed nothing from the geriatic de pression scale. Other providers contributing to the patient's care are gastrologist and a&p technician., [ADDITIONAL REASON] Well Women Exam - [...] up she is exercising and joined the [employer] [facility]- she is working on diet too- [...] Patient has been compliant with instructions. Current wa End: 25-Dec-2006 10:13 dication use: no side [...] c medical issues: tolerating welchol and saw legal secretary and she is not finding an etiology [...] she never followed up for results with [facility] and I encouraged to be compliant with [...]
--- OUTSIDE RECORDS SUMMARY | 2018-09-29 08:23 | XMS RPT_ITS | Continuity of Care Document ---
:1945 Author Organization [facility] Address [facility]7 [facility] [address] [place] [address] Phone Care Team Providers Name Role Phone [...] : 18-Sep-2006 End : 01-Oct-2006 Discontinued ZOSTAVAX, 32786OSS/0.65ML (Subcutaneous Solution Reconstituted) 1 (one) For Solution [...] with discont sympthomo from running out of cyLocomizerta Status: Inactive as of 05-Dec-2017 Other specified [...] Visit Report Result: Comments: See Note; NOTES: [facility] [address] [place] [address] OFFICE VISIT Date of Service: 06/24/18 MR#: [id number] Acct: [id number] Name: BRANDIE KUO Rep #: [id number] : 1945 Provider: Rylan Bird MD Age/Sex: 73/F Location: [facility] Status: Signed Intake Vital Signs06/24/18 Height 5 ft 1.5 in 06/24/18 Weight: 149 lb Intake Visit Re asons: To discuss test results Chief Complaint: gerd, need for colonoscopy Manager Rail Required: No Is patient in pain?: No Allergies erythromycin base Allergy (Verified 06/24/18 07:52) Rash ibuprofen [From Motrin] Allergy (Verified 06/24/18 07:52) Rash dicyclomine HCl [From Bentyl] Adverse Reaction (Verified 06/24/18 07:52) Nausea nitrofurantoin Adverse Reaction (Verified 06/24/18 07:52) Nausea Sul fa (Sulfonamide Antibiotics) Adverse Reaction (Verified 06/24/18 07:52) Nausea Medications traMADol [Ultram] 100 mg PO BID 09/30/13 [History Confirmed 06/24/18] Bergamot [Susque[place]anna Bergamot] 02/12/17 [H istory Confirmed 06/24/18] Cyanocobalamin [...] (Acute) Arthritis (Acute) Constipation (Acute) Diabetes (Ac false pass) Diverticula of colon (Acute) GERD (gastroesophageal reflux [...] right upper quadrant ultrasound performed at the [facility] Fatty infiltration of the liver. Mild right hydronephrosis. No stones identified. Evidence of previous cholec ystectomy. April 30, 2018 contrast upper GI examination performed at the [facility] Normal findings May 08, 2018 CT scan abdomen and pelvis performed at the [facility] pital. 3 nonobstructing right renal collecting [...] hagia R13.10 Plan Today was a 20-minute iplz-ya-faxr consultative appointment. I reviewed all of the [...] Emptying Study Result: Comments: See Note; NOTES: [facility] Imaging Services [address] [place] [address] Gastric Emptying Study MR#: [id number] Acct: [id number] Name: BRANDIE KUO Rep #: [id number] : 1945 F 73 From: Carson Thacker DO PCP: Camryn Faith DO Status: REG CLI Study: Gastric Emptying Study Date of Exam: 05/31/18 Exam# [id number] Ordering Dr: Kay Sanchez PA-C CLINICAL : [...] CC: Kay Sanchez PA-C; Camryn Faith DO Track Hoe Operator: Signed 28-May-2018 Surgery Visit Report Result: Comments: See Note; NOTES: [facility] [address] [place] [address] OFFICE VISIT Date of Service: 05/28/18 MR#: [id number] Acct: [id number] Name: ADITHYA KUORA Beckman Rep #: [id number] : 1945 Provider: Rylan Bird MD Age/Sex: 73/F Location: [facility] Status: Signed Intake Intake Visit Reasons: C-Scope [...] BI D 09/30/13 [History Confirmed 04/25/18] Bergamot [Susquehanna Bergamot] 02/12/17 [History Confirmed 04/25/18] Cyanocobalamin (Vitamin [...] mcg PO DAILY 04/25/18 [History Confirmed 04/25/18] [facility] Medical History Screening for intestinal cancer (Acute) [...] Esophagitis presence: esophagitis presence not specified 05/28/18 2517 <Electronically signed by Rylan Bird MD> Date Rylan Bird MD Cosigner Signature: Date (if applicable) CC: Camryn Faith DO 23-May-2018 Dexa Bone Density Study Result: Comments: See Note; NOTES: [facility] Imaging Services [address] [place] [address] Dexa Bone Density Study MR#: [id number] Acct: [id number] Name: BRANDIE KUO Rep #: [id number] : 1945 F 73 From: Zbigniew Carroll MD PCP: Camryn Faith DO Status: REG CLI Study: Dexa Bone Density Study Date of Exam: 05/23/18 Exam# [id number] Ordering Dr: Camryn Faith DO UDY: DUAL [...] Zbigniew Carroll MD at 8:17 EDT Tel [phone], Service support , CC: Camryn Faith DO Track Hoe Operator: Signed 22-May-2018 Operative Report - Endoscopy Result: Comments: See Note; NOTES: [facility] Medical Records Department [address] [place] [address] Progress Note - Endoscopy 05/21/18 0647 MR#: [id number] Acct: [id number] Name: BRANDIE LOGAN Rep #: [id number] : 1945 73 From: Rylan Bird MD [...] 1 week. Procedure Code(s): --- Professional --- 61740, Colonoscopy, flexible; with transendoscopic balloon dilation Diagn osis Code(s): --- Professional --- Z12.11, Encounter for screening for malignant neoplasm of colon K64.9, Unspecified hemorrhoids Z98.0, Intestinal bypass and anastomosis status K57.30, Diverticulosis o f large intestine without perforation or abscess without bleeding CPT copyright 2017 [employer]. All rights reserved. The codes documented in this report are preliminary and upon certified professional coder review may be revised to meet current [...] - Endoscopy Result: Comments: See Note; NOTES: [facility] Medical Records Department [address] [place] [address] Progress Note - Endoscopy 05/21/18646 MR#: [id number] Acct: [id number] Name: BRANDIE LOGAN Rep #: [id number] : 1945 73 From: Rylan Bird MD [...] 1 week. Procedure Code(s): --- Professional --- 27641, Colonoscopy, flexible; with transendoscopic balloon dilation Diagn osis Code(s): --- Professional --- Z12.11, Encounter for screening for malignant neoplasm of colon K64.9, Unspecified hemorrhoids Z98.0, Intestinal bypass and anastomosis status K57.30, Diverticulosis o f large intestine without perforation or abscess without bleeding CPT copyright 2017 [employer]. All rights reserved. The codes documented in this report are preliminary and upon certified professional coder review may be revised to meet current [...] - Endoscopy Result: Comments: See Note; NOTES: [facility] Medical Records Department [address] [place] [address] Progress Note - Endoscopy 05/21/18646 MR#: [id number] Acct: [id number] Name: BRANDIE LOGAN Rep #: [id number] : 1945 73 From: Eduardo Adams MD Patient Name: Brandie Kuo Procedure Date: 05/21/2018 6:47 AM Date of : 1945 Account Number: [id number] Age: 73 Procedure: Colonoscopy Indications: Screening for [...] specimens collected. Recommendation: - Discharge patient to [facility]. - Resume previous diet. - Continue present medications. - Return to my office in 1 week. Procedure Code(s): --- Professional --- 83374, Colonoscopy, flexible; with transendoscopic balloon dilation D iagnosis Code(s): --- Professional --- Z12.11, Encounter for screening for malignant neoplasm of colon K64.9, Unspecified hemorrhoids Z98.0, Intestinal bypass and anastomosis status K57.30, Diverticulos is of large intestine without perforation or abscess without bleeding CPT copyright 2017 [employer]. All rights reserved. The codes [...] - Endoscopy Result: Comments: See Note; NOTES: [facility] Medical Records Department [address] [place] [address] Progress Note - Endoscopy 05/21/18646 MR#: [id number] Acct: [id number] Name: BRANDIE LOGAN Rep #: [id number] : 1945 73 From: Eduardo Adams MD Patient Name: Brandie Kuo Procedure Date: 05/21/2018 6:47 AM Date of : 1945 Account Number: [id number] Age: 73 Procedure: Colonoscopy Indications: Screening for [...] specimens collected. Recommendation: - Discharge patient to [facility]. - Resume previous diet. - Continue present medications. - Return to my office in 1 week. Procedure Code(s): --- Professional --- 05837, Colonoscopy, flexible; with transendoscopic balloon dilation D iagnosis Code(s): --- Professional --- Z12.11, Encounter for screening for malignant neoplasm of colon K64.9, Unspecified hemorrhoids Z98.0, Intestinal bypass and anastomosis status K57.30, Diverticulos is of large intestine without perforation or abscess without bleeding CPT copyright 2017 [employer]. All rights reserved. The codes [...] - Endoscopy Result: Comments: See Note; NOTES: [facility] Medical Records Department [address] [place] [address] Progress Note - Endoscopy 05/21/18621 MR#: [id number] Acct: [id number] Name: BRANDIE LOGAN Rep #: [id number] : 1945 73 From: Eduardo Adams MD Patient Name: Brandie Kuo Procedure Date: 05/21/2018 6:22 AM Date of : 1945 Account Number: [id number] Age: 73 Procedure: Upper GI endoscopy Indications: [...] week. Procedure Code(s): --- P rofessional --- 90794, Esophagogastroduodenoscopy, flexible, transoral; with biopsy, single or multiple Diagnosis Code(s): --- Professional --- K21.0, Gastro- esophageal reflux disease with esophagitis K 44.9, Diaphragmatic hernia without obstruction or gangrene K29.50, Unspecified chronic gastritis without bleeding CPT copyright 2017 [employer]. All rights reserved. The codes document ed in this report are preliminary and upon certified professional coder review may be revised to meet current [...] without Cont Result: Comments: See Note; NOTES: [facility] Imaging Services [address] [place] [address] Abdomen/Pelvis without Cont MR#: [id number] Acct: [id number] Name: BRANDIE KUO Rep #: [id number] : 1945 F 72 From: Kenneth Hunter MD PCP: Camryn Faith DO Status: REG CLI Study: Abdomen/Pelvis without Cont Date of Exam: 05/08/18 Exam# [id number] Ordering Dr: Pino Jang MD STUDY: CT [...] CC: Pino Jang MD; Camryn Faith DO Track Hoe Operator: Signed 30-Apr-2018 Upper GI w/BA Swallow Result: Comments: See Note; NOTES: [facility] Imaging Services [address] [place] [address] Upper GI w/BA Swallow MR#: [id number] Acct: [id number] Name: BRANDIE KUO Rep #: [id number] : 1945 F 72 From: Zbigniew Carroll MD PCP: Camryn Faith DO Status: REG CLI Study: Upper GI w/BA Swallow Date of Exam: 04/30/18 Exam# [id number] Ordering Dr: Rylan Bird MD STUDY: AIR-CONTRAST [...] Zbigniew Carroll MD at 15:59 EDT Tel [phone], Service support [phone], CC: Camryn Faith DO; Rylan Bird MD Track Hoe Operator: Signed 25-Apr-2018 Surgery Visit Report Result: Comments: See Note; NOTES: [facility] [address] [place] [address] OFFICE VISIT Date of Service: 04/25/18 MR#: [id number] Acct: [id number] Name: BRANDIE KUO Rep #: [id number] : 1945 Provider: Rylan Bird MD Age/Sex: 72/F Location: [facility] Status: Signed Intake Vital Signs04/25/18 Height 5 ft 1 in 04/25/18 Weight: 149 lb 5 oz 04/25/18 Body Mass Index (BMI) 28.2 04/25/18 Blood Pressure 166/75 Intake Visit Reasons: Acid Reflux Chief Complaint: gerd, need for colonoscopy Manager Rail Required: No Is patient in pain?: No Allergies erythrom ycin base Allergy (Verified 04/25/18 08:41) Rash ibuprofen [From Motrin] Allergy (Verified 04/25/18 08:41) Rash dicyclomine HCl [From Bentyl] Adverse Reaction (Verified 04/25/18 08:41) Nausea nitrofuran toin Adverse Reaction (Verified 04/25/18 08:41) Nausea Sulfa (Sulfonamide Antibiotics) Adverse Reaction (Verified 04/25/18 08:41) Nausea Medications traMADol [Ultram] 100 mg PO BID 09/30/13 [History Confirmed 04/25/18] Bergamot [Susquehanna Bergamot] 02/12/17 [History Confirmed 04/25/18] Cyanocobalamin (Vitamin [...] Stress Report Result: Comments: See Note; NOTES: [facility] Cardiovascular Services [address] [place] [address] MR#: [id number] Acct: [id number] Name: BRANDIE KUO Rep #: [id number] : [birth year] 72 From: Julio Cote MD [...] 86 %. This note was generated with [employer] dictation software. It may contain incorrect words, spelling, and punctuation that were not noted in checking the note before signing. 04/16/181713 <Electronically signed by Julio savage MD> Date Julio Cote MD CC: Camryn Faith DO Date Dictated: 04/16/181708 Date Transcribed: 04/16/181708 Track Hoe Operator: PM Signed 16-Apr-2018 Echocardiogram Complete Result: Comments: See Note; NOTES: [facility] Cardiovascular Services [address] [place] [address] Echo Complete 04/16/18843 MR#: [id number] Acct: [id number] Name: BRANDIE KUO ep #: [id number] : 1945 72 From: Julio Cote MD [...] Physician: Camryn Faith Performed By: Sam Quinones [facility] 04/16/18 1559 Date Julio Cote MD CC: Camryn Faith DO Date Dictated: 04/16/18 0844 Date Transcribed: 04/16/18 1559 Track Hoe Operator: Signed 16-Apr-2018 Abdomen Limited Result: Comments: See Note; NOTES: [facility] Imaging Services [address] [place] [address] Abdomen Limited MR#: [id number] Acct: [id number] Name: BRANDIE KUO Rep #: [id number] : 1945 F 72 From: Bairon Fernandez MD PCP: Camryn Faith DO Status: REG CLI Study: Abdomen Limited Date of Exam: 04/16/18 Exam# [id number] Ordering Dr: Camryn Faith DO STUDY: ABDOMINAL [...] Service support , CC: Camryn Faith DO Track Hoe Operator: Signed 01-Feb-2018 Breast Limited Unilateral Result: Comments: See Note; NOTES: [facility] Imaging Services [address] [place] [address] Breast Limited Unilateral MR#: [id number] Acct: [id number] Name: BRANDIE KUO Rep #: [id number] : 1945 F 72 From: Zbigniew Carroll MD PCP: Camryn Faith DO Status: REG CLI Study: Breast Limited Unilateral Date of Exam: 02/01/18 Exam# [id number] Ordering Dr: Evelyn Patel PERFORMANCE IMPROVEMENT SPECIALIST-Sara STUDY: ULTRASOUND BREAST - RIGHT REASON [...] Zbigniew Carroll MD at 15:46 EDT Tel [phone], Service support , CC: CHIQUIS Patel; Camryn Faith DO Track Hoe Operator: Signed 01-Feb-2018 DIAG MAMM W/CAD, BILAT Result: Comments: See Note; NOTES: [facility] Imaging Services [address] [place] [address] DIAG MAMM W/CAD, BILAT MR#: [id number] Acct: [id number] Name: BRANDIE KUO Rep #: [id number] : 1945 F 72 From: Zbigniew Carroll MD PCP: Camryn Faith DO Status: [facility] CL Study: DIAG MAMM W/CAD, BILAT Date of Exam: 02/01/18 Exam# [id number] Ordering Dr: Evelyn Patel PERFORMANCE IMPROVEMENT SPECIALIST-C WAGNER MOGRAPHY - BILATERAL DIAGNOSTIC REASON [...] Zbigniew Carroll MD at 15:36 EDT Tel [phone], Service support , CC: CHIQUIS Patel; Camryn Faith DO Track Hoe Operator: Signed 29-Jan-2018 Guest Services Director Office Visit Report Result: Comments: See Note; NOTES: [facility] [address] [place] [address] OFFICE VISIT Date of Service: 01/29/18 MR#: [id number] Acct: [id number] Name: ADITHYA KUO RA Rep #: [id number] : 1945 Provider: CHIQUIS Patel Age/Sex: 72/F Location: [facility] Status: Signed Intake Vital Signs01/29/18 Height 5 ft 1 in 01/29/18 Weight: 147 lb 6 oz 01/29/18 Body M ass Index (BMI) 27.8 01/29/18 Blood Pressure 131/74 Intake Visit Reasons: WELLNESS CHECK Chief Complaint: est annual Manager Rail Required: No Is patient in pain?: Yes [...] BID 09/30/13 [History Confirmed 01/02 05/21] Bergamot [Sus[place]anna Bergamot] 02/12/17 [History Confirmed 01/29/18] Cyanocobalamin (Vitamin [...] abortions Past Pregnancies Del. DatName [place]/WeeksOutcome Route [facility] LocaProviderFOB e ht en tn Unknown [...] alert, oriented to person, oriented to place HENCA Head: normal to inspection Neck Neck: normal [...] hospital records, she thought was done at [facility]. Will check [facility] records also. RTO 1 year, prn with problems Evelyn Patel FINISHER HAND Orders Orders: Medications New : Coding Level [...] Duplex Ultrasound Result: Comments: See Note; NOTES: [facility] Cardiovascular Services [address] [place] [address] Carotid Duplex Ultrasound 12/25/17 1043 MR#: [id number] Acct: [id number] Name: JANET KitBRANDIE K Rep #: [id number] : 1945 72 From: Ej Ortiz MD Attending Dr: Camryn Faith DO Status: REG CLI Ordering Dr: Camryn Faith DO Date: 12/25/17 Location: [facility] Sex: F C Admitted: Reason For [...] the left vertebral artery. Procedure Carotid Duplex 48933. Exam performed in [facility]. Interpretation Summary Mild (<50%) stenosis right extracranial internal carotid. Mild (<50%) stenosis left extracranial internal carotid. Flow within the vertebral arteries is antegrade bilaterally. Ordering Physician: Camryn Faith Referring Physician: Mai Faith Performed By: Adelita Ramirez RVT 12/26/17823 Date Ej Ortiz MD CC: Rk Faith DO Date Dictated: 12/25/17 1043 Date Transcribed: 12/26/17823 Track Hoe Operator: Signed 26-Sep-2017 Urgent Care Visit Report Result: Comments: See Note; NOTES: [facility] [address] [place] [address] [address] [place] [address] OFFICE VISIT Date of Service: 08/28/17 MR#: [id number] Acct: [id number] Name: BRANDIE KUO Rep #: [id number] : 1945 Provider: Carmine ELDER Age/Sex: 72/F Location: [facility] Status: Signed Intake Vital Signs08/28/17 Height 5 ft 1 in 08/28/17 Weight: 146 lb 08/28/17 Body Mass Index (BMI) 27.6 Intake Visit Reasons: Sinus infection Manager Rail Required: No Is patient in pain?: No Allergies erythromycin base Allergy (Verified 08/28/17 09:42) Rash ibuprofen [From Motrin] Allergy (Verifie d 08/28/17 09:42) Rash dicyclomine HCl [From Bentyl] Adverse Reaction (Verified 08/28/17 09:42) Nausea nitrofurantoin Adverse Reaction (Verified 08/28/17 09:42) Nausea Sulfa (Sulfonamide Antibiotics) Ad verse Reaction (Verified 08/28/17 09:42) Nausea Medications TraMADol [Ultram] 100 mg PO BID 09/30/13 [History Confirmed 03/20/17] Bergamot [[place] Bergamot] 02/12/17 [History] BusPIRone [Buspar] 15 m [...] Days #20 cap 08/28/17 [Rx Confirmed 08/28/17] [facility] Medical History Hyperlipidemia (Chronic) Acute diverticulitis (Acute) [...] Result: Comments: See Note; NOTES: [facility] [address] [place] [address] OFFICE VISIT Date of Service: 08/28/17 MR#: [id number] Acct: [id number] Name: BRANDIE KUO Rk Rep #: [id number] : 1945 Provider: Carmine ELDER Age/Sex: 72/F Location: [facility] Status: Signed Intake Vital Signs08/28/17 Height 5 ft 1 in 08/28/17 Weight: 146 lb 08/28/17 Body Mass Index (BMI) 27.6 Intake Visit Reasons: Sinus infection Manager Rail Required: No Is patient in pain?: No Allergies erythromycin base Allergy (Verified 08/28/17 09:42) Rash ibuprofen [From Motrin] Allergy (Verifie d 08/28/17 09:42) Rash dicyclomine HCl [From Bentyl] Adverse Reaction (Verified 08/28/17 09:42) Nausea nitrofurantoin Adverse Reaction (Verified 08/28/17 09:42) Nausea Sulfa (Sulfonamide Antibiotics) Ad verse Reaction (Verified 08/28/17 09:42) Nausea Medications TraMADol [Ultram] 100 mg PO BID 09/30/13 [History Confirmed 03/20/17] Bergamot [[place] Bergamot] 02/12/17 [History] BusPIRone [Buspar] 15 m [...] (CAD), BILAT Result: Comments: See Note; NOTES: [facility] Imaging Services [address] [place] [address] SCREENING MAMM (CAD), BILAT MR#: [id number] Acct: [id number] Name: BRANDIE KUO Rep #: [id number] : 1945 F 71 From: Zbigniew Carroll MD PCP: Camryn Faith DO Status: REG CLI Study: SCREENING MAMM (CAD), BILAT Date of Exam: 04/16/17 Exam# [id number] Ordering Dr: Camryn Faith DO MAMMOGRAPHY - [...] delay biopsy of a clinically suspicious abnormality. [id number] Electronically Signed: Zbigniew Carroll MD at 8:58 EDT Tel [phone], Service support , CC: Camryn Faith DO Track Hoe Operator: Signed 15-Mar-2017 12 Lead Electrocardiogram Result: Comments: See Note; NOTES: [facility] Cardiovascular Services [address] [place] [address] EKG - SDC 03/14/1732 MR#: [id number] Acct: [id number] Name: BRANDIE KUO Rep # : [id number] : 1945 71 From: Luis Buckley MD Attending Dr: Rylan Bird MD Status: PRE IN Ordering Dr: Rylan Bird MD Date: 03/14/17 Location: [facility] Sex: F C Admitted: Test Reason : Blood Pressure : / mmHG Vent. Rate : 078 BPM Atrial Rate : 078 BPM P-R Int : 130 ms QRS Dur : 084 ms QT Int : 386 ms P-R-T Axes : 044 026 070 degrees QTc Int : 440 ms Normal sinus rhythm Low voltage Q RS Borderline ECG Confirmed by LUIS BUCKLEY ([id number]), medical editor DEENA TOUSSAINT ([id number]) on 03/15/2017 10:41:46 AM Referred By: CARLIE TEJEDA Confirmed By:LUIS BUCKLEY 03/15/17 1041 Date uLis Buckley MD CC: Luis Buckley MD; Camryn Faith DO Date Dictated: 03/14/17731 Date Transcribed: 03/14/17731 Track Hoe Operator: Signed 12-Feb-2017 Emergency Department Summary Result: Comments: See Note; NOTES: [facility] Medical Records Department [address] [place] [address] Emergency Department Summary MR#: [id number] Acct: [id number] Name: BRANDIE KUO Rep #: [id number] : 1945 71 From: Luis Garcia DO PCP: Camryn Faith DO Status: [facility] ER DATE OF SERVICE: 02/12/2017 CHIEF COMPLAINT: [...] diverticulitis. Luis kenney DO T: NTS JOB: [id number] 02/12/172224 <Electronically signed by Luis Garcia DO> Date Luis Garcia DO Cosigner Signature (If I ndicated): Date CC: Camryn Faith DO Date Dictated: 02/12/171934 Date Transcribed: 02/12/171934 Track Hoe Operator: Signed 12-Feb-2017 Discharge Instruction Result: Comments: See Note; NOTES: [facility] Medical Records Department [address] [place] [address] Discharge Instruction 02/12/171913 MR#: [id number] Acct: [id number] Name: Michelle KUO Rep #: [id number] : 1945 71 From: Luis Garcia DO [...] your Primary Care Provider. Call [facility] ([phone]) or report to the closest Emergency Room. Call 911 if necessary. 02/12/171915 <Electron ically signed by Luis Garcia DO> Date Luis Garcia DO Cosigner Signature (If Indicated): Date CC: Camryn Faith DO 12-Feb-2017 Abdomen/Pelvis W IV Cont ONLY Result: Comments: See Note; NOTES: [facility] Imaging Services [address] [place] [address] [address] 4d Abdomen/Pelvis W IV Cont ONLY MR#: [id number] Acct: [id number] Name: ADITHYA KUO RA Beckman Rep #: [id number] : 1945 F 71 From: Gloria Whtiman MD PCP: Camryn Faith DO Status: REG ER Study: Abdomen/Pelvis W IV Cont ONLY Date of Exam: 02/12/17 Exam# [id number] Ordering Dr: Palak Garcia DO STUDY: CT [...] techniques were used for this CT. COMPARISON: [facility] 2015 CT scan abdomen and [...] CC: Luis Garcia DO; Camryn Faith DO Track Hoe Operator: Signed 03-May-2016 Transvaginal Non- Result: Comments: See Note; NOTES: [facility] Imaging Services [address] [place] [address] Verdana 4d Transvaginal Non- MR#: [id number] Acct: [id number] Name: BRANDIE KUO Rep #: [id number] : 1945 F 70 From: Zbigniew Carroll MD PCP: Royal Perea Status: REG CLI Study: Transvaginal Non- Date of Exam: 05/03/16 Exam# [id number] Ordering Dr: Royal Perea STUDY: ULTRASOUND OF [...] Zbigniew Carroll MD at 11:16 EDT Tel [phone], Service support [phone], CC: Royal Perea Track Hoe Operator: Signed 03-May-2016 Abdomen Complete Result: Comments: See Note; NOTES: [facility] Imaging Services [address] [place] [address] Verdana 4d Abdomen Complete MR#: [id number] Acct: [id number] Name: BRANDIE KUO Rep #: [id number] : 1945 F 70 From: Zbigniew Carroll MD PCP: Royal Perea Status: REG CLI Study: Abdomen Complete Date of Exam: 05/03/16 Exam# [id number] Ordering Dr: Royal Perea STUDY: ABDOMINAL ULTRASOUND [...] Zbigniew Carroll MD at 11:14 EDT Tel [phone], Service support [phone], CC: Royal Perea Track Hoe Operator: Signed 03-May-2016 Pelvic (Non ) Result: Comments: See Note; NOTES: [facility] Imaging Services [address] [place] [address]33 Verdana 4d Pelvic (Non ) MR#: [id number] Acct: [id number] Name: AYAANBRANDIERA Rk Cabrera p #: [id number] : 1945 F 70 From: Zbigniew Carroll MD PCP: Royal Perea Status: REG CLI Study: Pelvic (Non ) Date of Exam: 05/03/16 Exam# [id number] Ordering Dr: Royal Perea STUDY: ULTRASOUND OF [...] Zbigniew Carroll MD at 11:16 EDT Tel [phone], Service support [phone], CC: Royal Perea Track Hoe Operator: Signed 15-Feb-2016 Bilat Scrn Digital AND CAD Result: Comments: See Note; NOTES: [facility] Imaging Services [address] [place] [address] Verdana 4d Bilat Scrn Digital AND CAD MR#: [id number] Acct: [id number] Name: BRANDIE KUO Rep #: [id number] : 1945 F 70 From: Zbigniew Carroll MD PCP: Royal Perea Status: REG CLI Study: Bilat Scrn Digital AND CAD Date of Exam: 02/15/16 Exam# [id number] Ordering D r: Yobany, Kylie DO MAMMOGRAPHY [...] delay biopsy of a clinically suspicious abnormality. [id number] Electronically Shaina d: Zbigniew Carroll MD at 9:50 EDT Tel [phone], Service support [phone], CC: Kylie Haywood DO; Royal Perea Track Hoe Operator: Signed 15-Feb-2016 Dexa Bone Density/Append Skel Result: Comments: See Note; NOTES: [facility] Imaging Services [address] [place] [address]139 Verdana 4d Dexa Bone Density/Append Skel MR#: [id number] Acct: [id number] Wilder e: BRANDIE KUO Rep #: [id number] : 1945 F 70 From: Zbigniew Carroll MD PCP: Royal Perea Status: REG CLI Study: Dexa Bone Density/Append Skel Date of Exam: 02/15/16 Exam# [id number] Orde ring Dr: Kylie Haywood DO STUDY: [...] osteopenic as outlined below according to World Amtt Organization (WHO) cr iteria with a moderate [...] Zbigniew Carroll MD at 9:26 EDT Tel [phone], Service support [phone], CC: Kylie Haywood DO; Royal Perea Track Hoe Operator: Signed 02-Feb-2016 Carotid Duplex Ultrasound Result: Comments: See Note; NOTES: [facility] Cardiovascular Services [address] [place] [address] Carotid Duplex Ultrasound 02/01/16 0856 MR#: [id number] Acct: [id number] Name: BRANDIE KUO Rep #: [id number] : 1945 70 From: Ej Ortiz MD [...] the left vertebral artery. Procedure Carotid Duplex 03115. The exam was diagno stic. Exam performed in department. Interpretation Summary Mild (<50%) stenosis right extracranial internal carotid. Mild (<50%) stenosis left extracranial internal carotid. Flow wi thin the vertebral arteries is antegrade bilaterally. Ordering Physician: Kylie Haywood By: Blue Joseph RVT 02/02/16 1123 Date Ej Ortiz MD CC: Kylie Haywood DO Date Dictated: 02/01/16 0856 Date Transcribed: 02/02/16 1123 Track Hoe Operator: Signed 25-Jan-2016 EKG (61323) Comments: ekg showed normal sinus rhythym, normal axis, no acute st/t wave changes Result: [MEASUREMENTS ANALYSIS] Date of Test: 01/25/2016 10:38:09; Heart Rate: 73; VT Interval: 132; QRS: 95; QT Interval: 408; Corrected QT Interval (QTc): 430; P Wave [place]: 52; QRS Wave [place]: 20; T Wave [place]: 61; Blood Pressure: 124/68 [ECG DIAGNOSTIC STATEMENTS] Date of Test: 01/25/2016 10:38:09; Summary: Sinus Rhythm Low voltage in limb leads. ABNORMAL 28-Oct-2015 Abdomen/Pelvis WITH Contrast Result: Comments: See Note; NOTES: [facility] Imaging Services [address] [place] [address] Verdana 4d Abdomen/Pelvis WITH Contrast MR#: [id number] Acct: [id number] Name : BRANDIE KUO Rep #: [id number] : 1945 F 70 From: Zbigniew Carroll MD PCP: Kylie Haywood DO Status: REG CLI Study: Abdomen/Pelvis WITH Contrast Date of Exam: 10/28/15 Exam# [id number] Orde [facility] Dr: Kylie Haywood DO STUDY: CT ABDOMEN [...] Zbigniew Carroll MD at 15:09 EST Tel [phone], Service support [phone], CC: Kylie Haywood DO Track Hoe Operator: Signed 25-Oct-2015 L/S Spine Min 4 Views Result: Comments: See Note; NOTES: [facility] Imaging Services [address] [place] [address] 12510 Verda 4d L/S Spine Min 4 Views MR#: [id number] Acct: [id number] Name: BRANDIE KUO Rep #: [id number] : 1945 F 70 From: Zbigniew Carroll MD PCP: Kylie Haywood DO Status: REG CLI Study: L/S Spine Min 4 Views Date of Exam: 10/25/15 Exam# [id number] Ordering Dr: Kylie Haywood DO STUDY: X-RAY [...] Zbigniew Carroll MD at 8:59 EST Tel [phone], Service support [phone], RAD/L/S Spine Min 4 Views IMPRESSION: Degenerative changes of the spine, as detailed a zabrina. Electronically Signed: Zbigniew Carroll MD at 8:59 EST Tel [phone], Service support [phone], CC: Kylie Haywood DO Track Hoe Operator: Signed 17-Jun-2015 Operative Report Result: Comments: See Note; NOTES: [facility] Medical Records Department [address] [place] [address] Operative Report MR#: [id number] Acct: [id number] Name: BRANDIE KUO Rep #: [id number] : 1945 70 From: Rylan Bird MD [...] years. Rylan Bird MD T: NTS JOB: [id number] 06/17/15 0548 <Electronically signed by Rylan Bird MD> Date Rylan hidalgo Signature (If Indicated): Date CC: Kylie Haywood DO; Rylan Bird MD Date Dictated: 06/16/15833 Date Transcribed: 06/16/15833 Track Hoe Operator: Signed 15-Feb-2015 Carotid Duplex Ultrasound Result: Comments: See Note; NOTES: [facility] Cardiovascular Services [address] [place] [address] Carotid Duplex Ultrasound 02/15/15 1339 MR#: [id number] Acct: [id number] Na me: BRANDIE KUO Rep #: [id number] : 1945 69 From: Ej Ortiz MD [...] the left vertebral artery. Procedure Carotid Duplex 84386. The exam was diagnostic. Exam performed in [...] Date Dictated: 02/15/15 1339 Date Transcribed: 02/15/151944 Track Hoe Operator: Signed 09-Feb-2015 Bilat Scrn Digital AND CAD Result: Comments: See Note; NOTES: [facility] Imaging Services [address] [place] [address] Breast Imaging Report MR#: [id number] Acct: [id number] Name: BRANDIE KUO Rep #: [id number] : 1945 F 69 From: Zbigniew Carroll MD PCP: Kylie Haywood DO Status: REG CLI Study: Logan Roperjeff Digital AND CAD Date of Exam: 02/09/15 Exam# [id number] Ordering Dr: Kylie Haywood DO MAMMOGRAPHY - [...] Zbigniew pop MD at 10:49 EDT Tel [phone], Service support [phone], CC: Kylie Haywood DO; EVELYN PATEL Track Hoe Operator: Signed 05-Sep-2014 Discharge Instruction Result: Comments: See Note; NOTES: [facility] Medical Records Department [address] [place] [address] Discharge Instruction 09/05/14 0648 MR#: [id number] Acct: [id number] Name: BRANDIE KUO Rep #: [id number] : 1945 69 From: Kamran Swratz MD PCP: Kylie Haywood DO Status: REG [...] Discharge Instruction Result: Comments: See Note; NOTES: [facility] Medical Records Department [address] [place] [address] Discharge Instruction 09/05/14 0647 MR#: [id number] Acct: [id number] Name: BRANDIE KUO Rep #: [id number] : 1945 69 From: Kamran Swartz MD [...] without Cont Result: Comments: See Note; NOTES: [facility] Imaging Services [address] [place] [address] CAT Scan Report MR#: [id number] Acct: [id number] Name: BRANDIE KUO Rep #: [id number] : 1945 F 69 From: Viviana Robles PCP: Kylie Haywood DO Status: REG ER Study: Abdomen/Pelvis without Cont Date of Exam: 09/05/14 Exam# [id number] Ordering Dr: Kamran Swartz MD STUDY: CT [...] malignancy, followup with colonoscopy is recommended at [facility] nically appropriate time. 2. Non-obstructing small right renal calculus. 3. Degenerative lumbosacral spondylosis. Electronically Signed: Brooks Robles MD at 6:33 EST Tel , Service support [phone], CC: Kylie Haywood DO; Kamran Swartz MD Track Hoe Operator: Signed 16-Jan-2014 Bilat Scrn Digital & CAD Result: Comments: See Note; NOTES: [facility] Imaging Services [address] [place] [address] Breast Imaging Report MR#: [id number] Acct: [id number] Name: BRANDIE KUO Rep #: [id number] : 1945 F 68 From: Zbigniew Carroll MD PCP: Kylie Haywood DO Status: REG CLI Exam# [id number] Ordering Dr: Kylie Haywood DO MAMMOGRAPHY - [...] Zbigniew Carroll MD at 8:42 EDT Tel [phone], Service support [phone], CC: Kylie Haywood DO Track Hoe Operator: Signed 14-Oct-2013 Ribs Uni Min 3V w/PA Chest Result: Comments: See Note; NOTES: [facility] Imaging Services [address] [place] [address] Radiology Report MR#: [id number] Acct: [id number] Name: BRANDIE KUO Rep #: [id number] : 1945 F 68 From: Zbigniew Carroll MD PCP: Kylie Haywood DO Status: REG CLI Study: Ribs Uni Min 3V w/PA Chest Date of Exam: 10/14/13 Exam# [id number] Ordering Dr: Kylie Haywood DO STUD Y: [...] M.D. at 15:39 EST , Service support [phone], CC: Kylie Haywood DO Track Hoe Operator: Signed 15-Jul-2013 Dexa Bone Density Study (HP) Result: Comments: See Note; NOTES: [facility] Imaging Services [address] [place] [address] 44629 Bone Density Report MR#: [id number] Acct: [id number] Name: BRANDIE KUO Rep #: [id number] : 1945 F 68 From: Zbigniew Carroll MD PCP: Status: REG CLI Study: Dexa Bone Density Study (HP) Date of Exam: 07/15/13 Exam# [id number] Ordering Dr: Kylie Haywood DO STUDY: DUAL [...] M.D. July 042012 at 8:59:54 AM EST [phone] Electronically Signed GP/GP If you are the referring physician and would like to consult with the radiologist who provided this interpretation, please conta mikhail Carroll M.D. at [phone]. If this radiologist is unavailable, you will be directed to another radiologist to assist. If you are a patient with a question regarding this report, pl ease contact your referring physician directly. Professional Interpretation Provided By: USMD, Phone , These documents contain legally protected [...] of these documents. CC: Kylie Haywood DO Track Hoe Operator: Signed Immunization Name Dates Details Influenza (3 years and up) on: 25-Jun-2007 Comments: given in left deltoid, 0.5cc, lot#[id number], exp.08 WF Influenza (3 years and up) [...] Value Details :02 Blood Glucose , Office (33510) Blood Glucose , Office 102 (Normal) :02 HgA1C , Office (75364) HgA1C , Office 5.5 % (Normal) Range: 4.6 - 7.1 :27 CBC W/Diff, Automated Comments: [facility] [address] [place], [place], [address] Absolute Lymph 0.97 {X10_3/ul} (Normal) Range: 0.83-4.51 [...] 4.2-5.4 WBC 5.2 K/mm3 (Normal) Range: 4.4-11.0 1-Lyj-209078:27 Comprehensive Metabolic Profil Comments: [facility] [address] [place], [place], [id number] GAP 9 (Normal) Range: 5-15 CO2 28.0 [...] Comments: Please note revised GLUCOSE reference range bgsucmivc40/02/2018. 50-Vuu-03045:3 EGD ([facility] SITE) See Note (Normal) Comments: [facility] [address] [place], [address] 0 Comments: Patient: BRANDIE KUO : 1945 (73/F) Acct Num: [id number] Phys: Rylan Bird MD Unit Num: [id number] Loc: EN Specimen: [id number] Received: 05/21/1828 Spec Type: EGD B IOPSY TISSUES TISSUES: A. Gastric mucous membrane B. Esophageal mucous membrane C. Esophageal mucous membrane COMMENT The results of immunohisto chemistry for Helicobacter pylori will be reported separately ([id number]). GROSS DESCRIPTION A - Received in fixative [...] one cassette. / SJ:aga 05/21/18 TC:3 CPT: 33193 x3 HEADER OPERATION: Colonoscopy , EGD (MOD) [...] of inflammation. AM:aga 05/22/18 Signed ___ Edgard [facility] 05/22/18 <signature on file> 58-Aef-19752:0 IMMUNOHISTOCHEMISTRY See Note (Normal) Comments: [facility] [address] [facility] [place], [place], [address] 0 Comments: Patient: BRANDIE KUO : 1945 (73/F) Acct Num: [id number] Phys: Pelon MONROE,Rylan Unit Num: [id number] Loc: EN Specimen: [id number] Received: 05/22/18 - 1430 Spec Type: IMMUN O TISSUES TISSUES: A. Stomach, NOS SPECIMEN INFORMATION: Tissue Source: A Antral biopsy Clinical Info: GERD, esophagitis, screening Specimen Number: [id number] CPT code: 20220 METHODOLOGY: Deparaffinized sections of prefer/formalin- fixed tissue [...] developed and their performance characteristics determined by [facility]. They may not have been cleared or approved by the U.S. Food and Drug Administration. The FDA has determined that such clearance or approval is not necessary. INTERPRETATION: A. Antral biopsy: Negative for Helicobacter pylori organisms. AM:aga 05/24/18 PHYSICIAN AND INSTITUTION [place] [address] Sign ed Edgard Pipe 05/24/18 <signature on file> :18 C-REACTIVE PROTEIN (09259) Comments: PATIENT NOT FASTINGPERFORMED BY: [facility] Eozrzr8213 [facility] [id number] C-Reactive Protein, Quant 4.9 mg/L (Normal) Range: 0.0-4.9 :18 ESR-F (SED RATE ERYTHROCYTE - Comments: PATIENT NOT FASTINGPERFORMED BY: [facility] Ebzndo2050 [facility] [id number] FEMALE) (73908) Sedimentation Rate-Westergren 24 mm/h (Normal) Range: 0-40 :18 LIPASE (35863) Comments: PATIENT NOT FASTINGPERFORMED BY: [facility] Pqpdsf6068 [facility] [id number] Lipase 76 U/L (Normal) Range: 14-85 :18 AMYLASE (34210) Comments: PATIENT NOT FASTINGPERFORMED BY: [facility] Sxthdz0299 [facility] [id number] Amylase 111 U/L (Normal) Range: 31-124 :18 TSH (75178) Comments: PATIENT NOT FASTINGPERFORMED BY: [facility] Eentpq9068 [facility] [id number] TSH 3.730 {uIU/mL} (Normal) Range: 0.450-4.500 :18 T4, FREE (THYROXINE) (12008) Comments: PATIENT NOT FASTINGPERFORMED BY: [facility]CoBay[facility] CenterHrnant5508 [facility] [id number] T4,Free(Direct) 0.84 ng/dL (Normal) Range: 0.82-1.77 :18 T3, FREE (TRIDOTHYRONINE) (05639) Comments: PATIENT NOT FASTINGPERFORMED BY: [facility]Co[facility] CenterNrwmaf7772 [facility] [id number] Triiodothyronine (T3), Free 2.7 pg/mL (Normal) Range: 2.0-4.4 :13 HgA1C , Office (09118) HgA1C , Office 5.8 % (Normal) Range: 4.6 - 7.1 :13 Blood Glucose , Office (41531) Blood Glucose , Office 98 (Normal) :31 CBC W/Diff, Automated Comments: [facility] [address], [place], [id number] Absolute Lymph 0.71 {X10_3/ul} (Abnormal) Range: 0.83-4.51 [...] Range: 4.4-11.0 04-Apr-20189:31 Comprehensive Metabolic Profil Comments: [facility] [address] [place], [address] GAP 10 (Normal) Range: 5-15 CO2 27.0 [...] Comments: Please note revised GLUCOSE reference range jamddjljq11/02/2018. 43-Jsj-46822:29 CBC W/Diff, Automated Comments: [facility] [address] [place], [place], [phone] Absolute Lymph 0.84 {X10_3/ul} (Normal) Range: 0.83-4.51 [...] 4.2-5.4 WBC 5.8 K/mm3 (Normal) Range: 4.4-11.0 42-Ywn-49855:29 Comprehensive Metabolic Profil Comments: [facility] [address] [place], [place], [phone] GAP 5 (Normal) Range: 5-15 CO2 30.0 [...] Comments: Please note revised GLUCOSE reference range zaitrhwwb28/02/2018. 12-Gbs-93934:14 METABOLIC PANEL, COMPREHENSIVE Comments: PATIENT WAS FASTINGPERFORMED BY: [facility]CoBay[facility] CenterToziyg6600 [facility] [id number] (34477) ALT (SGPT) 26 [iU]/L (Normal) Range: 0-32 [...] 8-27 Glucose 93 mg/dL (Normal) Range: 65-99 83-Kya-70116:14 CBC, PLATELETS & AUT DIFF Comments: PATIENT WAS FASTINGPERFORMED BY: [facility] Bnijim6721 [facility] [id number] (97391) Immature Grans (Abs) 0.0 {x10E3/uL} (Normal) Range: [...] 3.77-5.28 WBC 5.3 {x10E3/uL} (Normal) Range: 3.4-10.8 25-Mxy-89937:14 LIPID PANEL (15098) Comments: PATIENT WAS FASTINGPERFORMED BY: OrderlordBayonne Medical CenterSyecve6940 [facility] [id number] LDL/HDL Ratio 4.7 {ratio} (Abnormal) Range: 0.0-3.2 [...] 295 mg/dL (Abnormal) Range: 100-199 :14 CALCIFEDIOL (92178) Comments: PATIENT WAS FASTINGPERFORMED BY: Orderlord Ynqdxw3225 [facility] [id number] Vitamin D, 25-Hydroxy 75.8 ng/mL (Normal) Range: 30.0-100.0 Comments: Vitamin D deficiency has been defined by the Hilbert ofMedicine and an Endocrine Society practice guideline as alevel of serum 25-OH vitamin D less than 20 ng/mL (1,2).The Endocrine Society went on to further define vitamin Dinsufficiency as a level between 21 and 29 ng/mL (2).1. IOM (Hilbert of Medicine). 2010. Dietary reference intakes for calcium and D. Day [place]: The National Academies Press.2. Micky RAWLS, Yohana COBURN, Kennedy PAL, et al. Evaluation, treatment, and prevention of vitamin D deficiency: an Endocrine Society clinical practice guideline. JCEM. 2010; 96(7):1911-30. 08-Dgl-907265:52 CBC W/Diff, Automated Comments: [facility] [address] [place], [phone] Absolute Lymph 0.91 {X10_3/ul} (Normal) Range: 0.83-4.51 [...] 4.2-5.4 WBC 4.7 K/mm3 (Normal) Range: 4.4-11.0 96-Oit-788339:52 Comprehensive Metabolic Profil Comments: [facility] [address] [place], [phone] GAP 6 (Normal) Range: 5-15 CO2 29.0 [...] A.D.A. criteria.Please note revised GLUCOSE reference range gzficzyjj17/02/2018. 4-Ldn-587374:09 HgA1C , Office (29905) HgA1C , Office 5.6 % (Normal) Range: 4.6 - 7.1 :15 CBC W/Diff, Automated Comments: [facility] [address] [place], [place], [address] Absolute Lymph 0.70 {X10_3/ul} (Abnormal) Range: 0.83-4.51 [...] 4.2-5.4 WBC 3.5 K/mm3 (Abnormal) Range: 4.4-11.0 54-Snr-81894:15 Comprehensive Metabolic Profil Comments: [facility] [address] [place], [address] GAP 7 (Normal) Range: 5-15 CO2 29.0 mmol/L (Normal) Range: 21.0-32.0 CL 106 mmol/L (Normal) Range: 98-107 K 3.8 mmol/L (Normal) Range: 3.5-5.1 NA 142 mmol/L (Normal) Range: 136-145 T BILI 0.40 mg/dL (Normal) Range: 0.20-1.00 ALT 38 U/L (Normal) Range: 13-56 Comments: Please note revised ALT reference range xcfyunbxf59/28/2018. ALK P 74 U/L (Normal) Range: 45-117 [...] Comments: Please note revised GLUCOSE reference range fkwnxdciw05/02/2018. 90-Haz-35328:44 VITAMIN B-12 (CYANOCOBALAMIN) Comments: PATIENT WAS FASTINGPERFORMED BY: [employer]6370 [facility] [id number] (02215) Vitamin B12 575 pg/mL (Normal) Range: 232-1245 85-Vxl-94180:44 METABOLIC PANEL, COMPREHENSIVE Comments: PATIENT WAS FASTINGPERFORMED BY: [employer]6370 [facility] [id number] (89777) ALT (SGPT) 30 [iU]/L (Normal) Range: 0-32 [...] 8-27 Glucose 86 mg/dL (Normal) Range: 65-99 84-Rgf-12988:44 CBC W/AUTO DIFF WBC (17664) Comments: PATIENT WAS FASTINGPERFORMED BY: [facility]6370 [facility] [id number] Immature Grans (Abs) 0.0 {x10E3/uL} (Normal) Range: [...] 3.77-5.28 WBC 5.5 {x10E3/uL} (Normal) Range: 3.4-10.8 84-Bdb-84683:44 LIPID PANEL (26213) Comments: PATIENT WAS FASTINGPERFORMED BY: OrderlordBayonne Medical CenterBmyuzi7328 [facility] [id number] LDL/HDL Ratio 3.9 {ratio_units} (Abnormal) Range: 0.0-3.2 Comments: LDL/HDL Ratio Men Women 1/2 Avg.Risk 1.0 1.5 Av g.Risk 3.6 3.2 2X Avg.Risk 6.2 5.0 3X Avg.Risk 8.0 6.1 LDL Cholesterol Calc 177 mg/dL (Abnormal) Range: 0-99 VLDL Cholesterol Rocky 54 mg/dL (Abnormal) Range: 5-40 HDL Cholesterol 45 mg/dL (Normal) Triglycerides 271 mg/dL (Abnormal) Range: 0-149 Cholesterol, Total 276 mg/dL (Abnormal) Range: 100-199 47-Myd-03447:44 CALCIFIDIOL (42091) VIT D 25 Comments: PATIENT WAS FASTINGPERFORMED BY: APT PharmaceuticalsMary [facility] Bed [facility] Hospital6370 [facility] [id number] Vitamin D, 25-Hydroxy 38.1 ng/mL (Normal) Range: 30.0-100.0 Comments: Vitamin D deficiency has been defined by the Hilbert ofMedicine and an Endocrine Society practice guideline as alevel of serum 25-OH vitamin D less than 20 ng/mL (1,2).The Endocrine Society went on to further define vitamin Dinsufficiency as a level between 21 and 29 ng/mL (2).1. IOM (Hilbert of Medicine). 2010. Dietary reference intakes for calcium and D. Day [place]: The National Academies Press.2. Micky MF, Yohana NC, Kennedy PAL, et al. Evaluation, treatment, and prevention of vitamin D deficiency: an Endocrine Society clinical practice guideline. JCEM. 2010; 96(7):1911-30. :51 HgA1C , Office (99778) HgA1C , Office 5.6 % (Normal) Range: 4.6 - 7.1 :53 CBC W/Diff, Automated Comments: [facility] [address] [place], [place], [id number] Absolute Lymph 0.78 {X10_3/ul} (Abnormal) Range: 0.83-4.51 [...] Range: 4.4-11.0 :53 Comprehensive Metabolic Profil Comments: [facility] [address] [place], [address] GAP 8 (Normal) Range: 5-15 CO2 27.0 [...] 7-18 GLU 90 mg/dL (Normal) Range: 70-110 14-Jsf-80642:48 LIPID PANEL (05267) Comments: PATIENT WAS FASTINGPERFORMED BY: CB [facility] Wzqcjr3159 [facility] [id number] BY: BN [facility] [address] [id number] LDL/HDL Ratio 4.5 {ratio_units} (Abnormal) Range: 0.0-3.2 [...] D Hydroxy Comments: PATIENT WAS FASTINGPERFORMED BY: [employer] Iajgtj9118 [facility] [place] [id number] BY: Orderlord[address] [id number] (25140) Vitamin D, 25-Hydroxy 68.0 ng/mL (Normal) Range: 30.0-100.0 Comments: Vitamin D deficiency has been defined by the Hilbert ofMercy Healthcine and an Endocrine Society practice guideline as alevel of serum 25-OH vitamin D less than 20 ng/mL (1,2).The Endocrine Society went on to further define vitamin Dinsufficiency as a level between 21 and 29 ng/mL (2).1. IOM (Hilbert of Medicine). 2010. Dietary reference intakes for calcium and D. Day [place]: The National Academies Press.2. Micky MF, Yohana COBURN, Kennedy PAL, et al. Evaluation, treatment, and prevention of vitamin D deficiency: an Endocrine Society clinical practice guideline. JCEM. 2010; 96(7):1911-30. :48 FERRITIN (07728) Comments: PATIENT WAS FASTINGPERFORMED BY: [employer] Wzsbip4589 [facility] [place] [id number] BY: Orderlord[address] [id number] Ferritin, Serum 20 ng/mL (Normal) Range: 15-150 :48 IRON BINDING CAPACITY Comments: PATIENT WAS FASTINGPERFORMED BY: [employer] Cijtmw9304 [address] [facility] [place] [id number] BY: Orderlord[address] [id number] (TIBC) (75565) Iron Saturation 10 % (Abnormal) Range: 15-55 Iron, Serum 43 ug/dL (Normal) Range: 27-139 UIBC 376 ug/dL (Abnormal) Range: 118-369 Iron Bind.Cap.(TIBC) 419 ug/dL (Normal) Range: 250-450 66-Aae-32615:48 Methymalonic Acid, Serum Comments: PATIENT WAS FASTINGPERFORMED BY: Triage[address] [facility] [id number] BY: [employer] Ntwkokhheg2816 [facility] [id number] (39814) Methylmalonic Acid, Serum 371 nmol/L (Normal) Range: 0-378 71-Xct-09928:48 VITAMIN B-12 (CYANOCOBALAMIN) Comments: PATIENT WAS FASTINGPERFORMED BY: [address] [facility] [id number] BY: My 1% Skktjvmtmk9230 [facility] [id number] (59448) Vitamin B12 511 pg/mL (Normal) Range: 211-946 Comments: Effective August 06, 2017 the reference interval for Vitamin B12 will be changing to: 232-1245 pg/mL. 00-Lco-125122:27 Protein Electro, Random Comments: PATIENT NOT FASTINGPERFORMED BY: [employer]6370 [facility] [id number] BY: Orderlord[address] [id number] Urine Please note: SPRCS (Normal) Comments: Protein electrophoresis scan will follow via computer, mail, orcourier delivery. M-Geraldo, % Not Observed % (Normal) Gamma Globulin, U 24.5 % (Normal) Beta Globulin, U 26.3 % (Normal) Grpnh-3-Inhdbbbx, U 17.3 % (Normal) Ceqtd-6-Csatwrbv, U 7.0 % (Normal) Albumin, U 24.9 % (Normal) Protein,Total,Urine <4.0 mg/dL (Normal) Comments: Verified by repeat analysis 79-Ywz-845067:27 Soluble Transferrin Comments: PATIENT NOT FASTINGPERFORMED BY: [facility] Qddsze6857 [facility] [id number] BY: [address] [id number] Receptor (12459) Soluble Transferrin Receptor 24.6 nmol/L (Normal) Range: 12.2-27.3 06-Oxz-964465:27 WILLIAM TEST, DIRECT Comments: PATIENT NOT FASTINGPERFORMED BY: [facility] Okgiun[address] [facility] [id number] BY: [address] [id number] (39032) William', Direct Negative (Normal) 15-Hzs-941379: FOLIC ACID SERUM (03623) Comments: PATIENT NOT FASTINGPERFORMED BY: [facility] Jdhcfx7089 [facility] [id number] BY: [address] [id number] Folate (Folic Acid), Serum >20.0 ng/mL (Normal) Comments: A serum folate concentration of less than 3.1 ng/mL isconsidered to represent clinical deficiency. 25-Xug-122919:27 Methymalonic Acid, Serum Comments: PATIENT NOT FASTINGPERFORMED BY: Orderlordrp Vbtdbn1026 [facility] [id number] BY: [address] [id number] (30245) Methylmalonic Acid, Serum 554 nmol/L (Abnormal) Range: 0-378 52-Jzy-519571:27 VITAMIN B-12 Comments: PATIENT NOT FASTINGPERFORMED BY: [facility] Tveebd9220 [facility] [id number] BY: [address] [id number] (CYANOCOBALAMIN) (71270) Vitamin B12 386 pg/mL (Normal) Range: 211-946 08-Nhv-480637:27 RETICULOCYTE COUNT MANUL Comments: PATIENT NOT FASTINGPERFORMED BY: [place] 3926070 [facility] [id number] BY: [address] [id number] (52695) Reticulocyte Count 1.4 % (Normal) Range: 0.6-2.6 48-Yov-706759:27 LDH (LD) (LACTATE Comments: PATIENT NOT FASTINGPERFORMED BY: [place] 3926070 [facility] [id number] BY: [address] [id number] DEHYDROGENASE) (86064) LDH 202 [iU]/L (Normal) Range: 119-226 00-Iki-890228:27 IRON BINDING CAPACITY Comments: PATIENT NOT FASTINGPERFORMED BY: [address] [id number] BY: [address] [id number] (TIBC) (33380) Iron Saturation 6 % (Abnormal) Range: 15-55 Iron, Serum 26 ug/dL (Abnormal) Range: 27-139 UIBC 394 ug/dL (Abnormal) Range: 118-369 Iron Bind.Cap.(TIBC) 420 ug/dL (Normal) Range: 250-450 46-Iqd-666455:27 FERRITIN (20180) Comments: PATIENT NOT FASTINGPERFORMED BY: [place] 3926070 [facility] [id number] BY: [address] [id number] Ferritin, Serum 20 ng/mL (Normal) Range: 15-150 24-Xth-008169:27 CBC, PLATELETS & AUT DIFF Comments: PATIENT NOT FASTINGPERFORMED BY: [address] [id number] BY: [address] [id number] (41219) Immature Grans (Abs) 0.0 {x10E3/uL} (Normal) Range: [...] 3.77-5.28 WBC 5.1 {x10E3/uL} (Normal) Range: 3.4-10.8 19-Zqr-311466:27 Serum Protein Comments: PATIENT NOT FASTINGPERFORMED BY: [facility] Viysdd3892 [facility] [id number] BY: [facility] [address] [id number] Electrophoresis (SPEP) (26329) Please note: SPRCS (Normal) Comments: Protein electrophoresis scan will follow via computer, mail, orcourier delivery. A/G Ratio 1.2 (Normal) Range: 0.7-1.7 Globulin, Total 3.3 g/dL (Normal) Range: 2.2-3.9 M-Geraldo Not Observed g/dL (Normal) Gamma Globulin 0.8 g/dL (Normal) Range: 0.4-1.8 Beta Globulin 1.3 g/dL (Normal) Range: 0.7-1.3 Ryxbb-2-Qytzgfhp 1.0 g/dL (Normal) Range: 0.4-1.0 Rgctp-3-Drblhpzs 0.2 g/dL (Normal) Range: 0.0-0.4 Albumin 3.8 g/dL (Normal) Range: 2.9-4.4 Protein, Total, Serum 7.1 g/dL (Normal) Range: 6.0-8.5 :58 CBC W/Diff, Automated Comments: [facility] [address] [place], [place], [address] Absolute Lymph 0.80 {X10_3/ul} (Abnormal) Range: 0.83-4.51 [...] Range: 4.4-11.0 :58 Comprehensive Metabolic Profil Comments: [facility] [address] [place], [place], [phone](638) GAP 7 (Normal) Range: 5-15 CO2 30.0 [...] 70-110 :35 Basic Metabolic Profile (BMP) Comments: [facility] [address] [place], [place], [address] GAP 9 (Normal) Range: 5-15 CO2 28.0 [...] :35 CBC-Complete Blood Cnt No Diff Comments: [facility] [address] [place], [place], [address] MPV 9.6 fL (Normal) Range: 6.2-12.0 PLT [...] Range: 4.4-11.0 :35 Partial Thromboplast Time Comments: [facility] [address] [place], [place], [address] PTT 27.3 s (Normal) Range: 24.1-36.2 :35 Prothrombin Time w/INR Comments: [facility] [address] [place], [place], [address] INR 1.0 (Normal) PROTIME 12.7 s (Normal) Range: 11.7-14.9 02-Nbu-187276:30 Urinalysis, Complete Comments: Order Date: 02/12/17How was Urine Obtained? [facility]Woo[facility] [address]nvjiwzk[address] [place], [place], [address] MUCUS, URINE 0 SEEN {/hpf} (Normal) BACTERIA [...] CLARITY Sl. Cloudy (Normal) COLOR Yellow (Normal) 11-Fro-117094:45 Basic Metabolic Profile (BMP) Comments: [facility] [address]sox[address] [place], [place], [address] GAP 10 (Normal) Range: 5-15 CO2 27.0 [...] 7-18 GLU 100 mg/dL (Normal) Range: 70-110 10-Was-508064:45 CBC W/Diff, Automated Comments: [facility] [address] [place], [address] Absolute Lymph 0.94 {X10_3/ul} (Normal) Range: 0.83-4.51 [...] 4.2-5.4 WBC 7.3 K/mm3 (Normal) Range: 4.4-11.0 18-Rcf-975574:10 URINE MAHENDRA CULTURE-IDENTIFICATN Comments: PATIENT WAS FASTINGPERFORMED BY: APT PharmaceuticalsMary [facility] Hospital6370 [facility] [id number] (53660) Result 1 MUG (Normal) Comments: Mixed urogenital flora25,000-50,000 colony forming units per mL Urine Final report (Normal) Culture,Comprehensive 04-Fyp-247768:10 URINALYSIS (44476) Comments: PATIENT WAS FASTINGPERFORMED BY: APT PharmaceuticalsMary [facility]6370 [facility] [id number] Microscopic Examination MICNIP (Normal) Comments: Microscopic not indicated and not performed. Nitrite, Urine Negative (Normal) Urobilinogen,Semi-Qn 0.2 mg/dL (Normal) Range: 0.2-1.0 Bilirubin Negative (Normal) Occult Blood Negative (Normal) Ketones Negative (Normal) Glucose Negative (Normal) Protein Trace (Normal) WBC Esterase Negative (Normal) Appearance Clear (Normal) Urine-Color Yellow (Normal) pH 7.0 (Normal) Range: 5.0-7.5 Specific [place] 1.015 (Normal) Range: 1.005-1.030 31-Unf-878020:10 C-REACTIVE PROTEIN (51506) Comments: PATIENT WAS FASTINGPERFORMED BY: AP[facility] PharmaceuticalsMary [facility]6370 [facility] [id number] C-Reactive Protein, Quant 7.7 mg/L (Abnormal) Range: 0.0-4.9 48-Wad-045882:10 Sed Rate Erythrocyte (99354) Comments: PATIENT WAS FASTINGPERFORMED BY: AP[facility] PharmaceuticalsMary [facility]6370 [facility] [id number] Sedimentation Rate-Westergren 34 mm/h (Normal) Range: 0-40 60-Wtr-511195:10 Metabolic Panel, Comprehensive Comments: PATIENT WAS FASTINGPERFORMED BY: AP[facility] PharmaceuticalsMary [facility]6370 [facility] [id number] (04268) ALT (SGPT) 13 [iU]/L (Normal) Range: 0-32 [...] Glucose, Serum 93 mg/dL (Normal) Range: 65-99 32-Hnc-729477:10 CBC with auto diff Comments: PATIENT WAS FASTINGPERFORMED BY: LabMary [facility] Hospital6370 [facility] [id number] Information: SRC:KORINA (45779) Hematology Comments: Note: (Normal) Comments: Verified by [...] Range: 3.4-10.8 :43 CBC W/Diff, Automated Comments: [facility] Hdgglnkssm9995 [facility] [place], [place], [address] Absolute Lymph 0.79 {X10_3/ul} (Abnormal) Range: 0.83-4.51 [...] Range: 4.4-11.0 :43 Comprehensive Metabolic Profil Comments: [facility] [address] [place], [address] GAP 7 (Normal) Range: 5-15 CO2 29.0 [...] mg/dL (Normal) Range: 70-110 :10 LIPID PANEL (80215) Comments: PATIENT WAS FASTINGPERFORMED BY: [employer]6370 [facility] [id number] LDL/HDL Ratio 4.4 {ratio_units} (Abnormal) Range: 0.0-3.2 [...] degree relatives should be collected. J Clin Gigklwr6478;5:133-140 LDL Cholesterol Calc 209 mg/dL (Abnormal) Range: 0-99 VLDL Cholesterol Rocky 57 mg/dL (Abnormal) Range: 5-40 HDL Cholesterol 48 mg/dL (Normal) Triglycerides 285 mg/dL (Abnormal) Range: 0-149 Cholesterol, Total 314 mg/dL (Abnormal) Range: 100-199 80-Tfk-78699:10 HEPATIC FUNCTION PANEL Comments: PATIENT WAS FASTINGPERFORMED BY: SinglePlatformBayonne Medical CenterWaljmk5753 [facility] [id number] (35031) ALT (SGPT) 13 [iU]/L (Normal) Range: 0-32 AST (SGOT) 19 [iU]/L (Normal) Range: 0-40 Alkaline Phosphatase, S 75 [iU]/L (Normal) Range: 39-117 Bilirubin, Direct 0.08 mg/dL (Normal) Range: 0.00-0.40 Bilirubin, Total 0.2 mg/dL (Normal) Range: 0.0-1.2 Albumin, Serum 4.4 g/dL (Normal) Range: 3.5-4.8 Protein, Total, Serum 6.7 g/dL (Normal) Range: 6.0-8.5 :46 HCQGV-ICLRTLPPELQ-XHSQW (12035) Comments: PATIENT WAS FASTINGPERFORMED BY: LabCoBayonne Medical CenterSfxgdn2708 [facility] [id number] AFP, Serum, Tumor Marker 5.5 ng/mL (Normal) Range: 0.0-8.3 Comments: Carmencita ECLIA methodology :28 HgA1C , Office (08746) HgA1C , Office 5.7 % (Normal) Range: 4.6 - 7.1 :46 CBC W/AUTO DIFF WBC (44172) Comments: PATIENT WAS FASTINGPERFORMED BY: LabCoBayonne Medical CenterIplokj9218 [facility] [id number] Immature Grans (Abs) 0.0 {x10E3/uL} (Normal) Range: [...] 3.77-5.28 WBC 4.4 {x10E3/uL} (Normal) Range: 3.4-10.8 07-Oan-355597:46 METABOLIC PANEL, COMPREHENSIVE Comments: PATIENT WAS FASTINGPERFORMED BY: [facility] Pmbujj2130 [facility] [id number] (67006) ALT (SGPT) 15 [iU]/L (Normal) Range: 0-32 [...] Glucose, Serum 95 mg/dL (Normal) Range: 65-99 21-Ozw-630523:46 TSH (90969) Comments: PATIENT WAS FASTINGPERFORMED BY: Orderlord Yrksjx1942 [facility] [id number] TSH 1.750 {uIU/mL} (Normal) Range: 0.450-4.500 09-Pnl-330088:46 LIPID PANEL (97288) Comments: PATIENT WAS FASTINGPERFORMED BY: Orderlord Sxztyi1798 [facility] [id number] LDL/HDL Ratio 4.7 {ratio_units} (Abnormal) Range: 0.0-3.2 [...] degree relatives should be collected. J Clin Wxdrjdn8918;5:133-140 LDL Cholesterol Calc 201 mg/dL (Abnormal) Range: 0-99 VLDL Cholesterol Rocky 63 mg/dL (Abnormal) Range: 5-40 HDL Cholesterol 43 mg/dL (Normal) Triglycerides 316 mg/dL (Abnormal) Range: 0-149 Cholesterol, Total 307 mg/dL (Abnormal) Range: 100-199 72-Yaf-416442:46 CALCIFIDIOL (43501) VIT D 25 Comments: PATIENT WAS FASTINGPERFORMED BY: OrderlordBayonne Medical CenterZmamzl8526 [facility] [id number] Vitamin D, 25-Hydroxy 38.5 ng/mL (Normal) Range: 30.0-100.0 Comments: Vitamin D deficiency has been defined by the Hilbert ofMedicine and an Endocrine Society practice guideline as alevel of serum 25-OH vitamin D less than 20 ng/mL (1,2).The Endocrine Society went on to further define vitamin Dinsufficiency as a level between 21 and 29 ng/mL (2).1. IOM (Hilbert of Medicine). 2010. Dietary reference intakes for calcium and D. Day [place]: The National Academies Press.2. Micky MF, Yohana COBURN, Kennedy PAL, et al. Evaluation, treatment, and prevention of vitamin D deficiency: an Endocrine Society clinical practice guideline. JCEM. 2010; 96(7):1911-30. 37-Dgh-253792:43 CBC W/Diff, Automated Comments: [facility] [address] [place], [place], [address] Absolute Lymph 1.03 {X10_3/ul} (Normal) Range: 0.83-4.51 [...] 4.2-5.4 WBC 5.1 K/mm3 (Normal) Range: 4.4-11.0 73-Zqb-589805:43 Comprehensive Metabolic Profil Comments: [facility] [address] [place], [place], [address] GAP -4 (Abnormal) Range: 5-15 CO2 29.0 [...] (Normal) Range: 70-110 :30 Culture, Miscellaneous Comments: [facility] [address] [place], [place], [address] CUM See Note (Normal) Comments: MOUTH AND TONGUE PLUS YEAST TONGUE GLOSSITIS DRY MOUTH Comments: MOUTH AND TONGUE/ PLUS YEASTMisc. CultureNo Yeast, Haemophilus, Streptococcus pneumoniae, beta-hemolytic Streptococcus or Staphyloco ccus aureus isolated. Gram StainGram Stain 2+ Epithelial cells 2+ Gram positive cocci :03 CBC W/Diff, Automated Comments: [facility] [address] [place], [place], [address] Absolute Lymph 0.88 {X10_3/ul} (Normal) Range: 0.83-4.51 [...] 4.2-5.4 WBC 5.0 K/mm3 (Normal) Range: 4.4-11.0 37-Utz-486652:03 Comprehensive Metabolic Profil Comments: [facility] [address] [place], [place], [address] GAP 7 (Normal) Range: 5-15 CO2 29.0 [...] 7-18 GLU 83 mg/dL (Normal) Range: 70-110 13-Hek-63630:16 Vitamin D Hydroxy (13623) Comments: PATIENT WAS FASTINGPERFORMED BY: [facility]6370 [facility] [id number] Vitamin D, 25-Hydroxy 56.1 ng/mL (Normal) Range: 30.0-100.0 Comments: Vitamin D deficiency has been defined by the Hilbert ofMedicine and an Endocrine Society practice guideline as alevel of serum 25-OH vitamin D less than 20 ng/mL (1,2).The Endocrine Society went on to further define vitamin Dinsufficiency as a level between 21 and 29 ng/mL (2).1. IOM (Hilbert of Medicine). 2010. Dietary reference intakes for calcium and D. Day [place]: The National Academies Press.2. Micky RAWLS, Yohana COBURN, Kennedy PAL, et al. Evaluation, treatment, and prevention of vitamin D deficiency: an Endocrine Society clinical practice guideline. JCEM. 2010; 96(7):1911-30. :16 AKHML-TANKRYGHXTZ-ZUSTS (31308) Comments: PATIENT WAS FASTINGPERFORMED BY: [employer]6370 [facility]Select [facility] [id number] AFP, Serum, Tumor Marker 5.3 ng/mL (Normal) Range: 0.0-8.3 Comments: Carmencita ECLIA methodology :16 METABOLIC PANEL, Comments: PATIENT WAS FASTINGPERFORMED BY: Orderlord Oodkjt9600 [facility] [id number] Information: [id number] COMPREHENSIVE (51619) ALT (SGPT) 14 [iU]/L (Normal) Range: 0-32 [...] Glucose, Serum 85 mg/dL (Normal) Range: 65-99 84-Rmo-49166:16 LIPID PANEL (98009) Comments: PATIENT WAS FASTINGPERFORMED BY: [address] [id number]; non-emergent till apt with Dr. Perea LDL/HDL [...] Cholesterol, Total 294 mg/dL (Abnormal) Range: 100-199 3-Ldo-729885:21 ANTINUCLEAR ANTIBODIES DIRECT Comments: [facility] (refer to report for specific site)refer to report for address and phone number RENUKA-DIRECT Negative (Normal) Comments: Performed at: [address] [id number] Director: Sudheer Russell PhD, Phone: [phone] 1-Pzg-438518:21 CBC W/Diff, Automated Comments: [facility] [address] [place], [address] Absolute Lymph 1.13 {X10_3/ul} (Normal) [...] 4.2-5.4 WBC 5.0 K/mm3 (Normal) Range: 4.4-11.0 9-Znh-441849:21 CCP IgG Antibodies Comments: [facility] (refer to report for specific site)refer to report for address and phone number ANTI-CCP 261325 8 {units} (Normal) Range: 0-19 Comments: Negative <20 Weak positive 20 - 39 Moderate positive 40 - 59 Strong positive >59 6-Cxq-020125:21 Comprehensive Metabolic Profil Comments: [facility] [address] [place], [place], [address] GAP 7 (Normal) Range: 5-15 CO2 29.0 [...] 7-18 GLU 87 mg/dL (Normal) Range: 70-110 6-Eju-159949:21 Hep B Surface Antibodies Comments: [facility] (refer to report for specific site)refer to report for address and phone number Hep B Cecille AB Non Reactive (Normal) Comments: Non Reactive: Inconsistent with immunity, less than 10 mIU/mL Reactive: Consistent with immunity, greater than 9.9 mIU/ mL 9-Fcc-557246:21 Hepatitis B Surface Ag Comments: [facility] (refer to report for specific site)refer to report for address and phone number HB SURF AG Negative (Normal) Comments: Performed at: CB - [facility] [address] [id number] Director: Sudheer Russell PhD, Phone: [phone] at: BN - [facility] [place] [address]Who Director: Kirby Fitch MD, Phone: [phone] 7-Bdw-810680:21 Hepatitis C Antibodies Comments: [facility] (refer to report for specific site)refer to report for address and phone number HEP C AB 0.2 {s/co_ratio} (Normal) Range: 0.0-0.9 Comments: Negative: < 0.8 Indeterminate: 0.8 - 0.9 Positive: > 0.9 The CDC recommends that a positive HCV antibody result be followed up with a HCV Nucleic Acid Amplification test (144505). 4-Ctj-024948:21 Rheumatoid Factor Comments: [facility] [address] [place], [address] RHEUMATOID FAC < 10.0 {IU/mL} (Normal) 99-Nkj-34142:16 CBC with auto diff Comments: PATIENT WAS FASTINGPERFORMED BY: LabCoBayonne Medical CenterDwhlxu4291 [facility] [id number] Information: [id number] (31008) Immature Grans (Abs) 0.0 {x10E3/uL} (Normal) Range: [...] 3.77-5.28 WBC 5.2 {x10E3/uL} (Normal) Range: 3.4-10.8 63-Fug-02558:16 LIPID PANEL (04510) Comments: PATIENT WAS FASTINGPERFORMED BY: LabCoBayonne Medical CenterUcally6994 [facility] [id number] LDL/HDL Ratio 5.7 {ratio_units} (Abnormal) Range: 0.0-3.2 [...] degree relatives should be collected. J Clin Bafrykn0213;5:133-140 LDL Cholesterol Calc 223 mg/dL (Abnormal) Range: 0-99 VLDL Cholesterol Rocky 63 mg/dL (Abnormal) Range: 5-40 HDL Cholesterol 39 mg/dL (Abnormal) Comments: According to ATP-III Guidelines, HDL-C >59 mg/dL is considered anegative risk factor for CHD. Triglycerides 313 mg/dL (Abnormal) Range: 0-149 Cholesterol, Total 325 mg/dL (Abnormal) Range: 100-199 :16 METABOLIC PANEL, COMPREHENSIVE Comments: PATIENT WAS FASTINGPERFORMED BY: [facility]Kab[facility]le Rbwwpc4588 [facility] [id number] (56308) ALT (SGPT) 13 [iU]/L (Normal) Range: 0-32 [...] (Normal) Range: 65-99 :16 Vitamin D Hydroxy (33875) Comments: PATIENT WAS FASTINGPERFORMED BY: [facility]CoBayonne Medical CenterMsuejb1540 [facility] [id number] Vitamin D, 25-Hydroxy 35.5 ng/mL (Normal) Range: 30.0-100.0 Comments: Vitamin D deficiency has been defined by the Hilbert ofMer[facility] Healthcine and an Endocrine Society practice guideline as alevel of serum 25-OH vitamin D less than 20 ng/mL (1,2).The Endocrine Society went on to further define vitamin Dinsufficiency as a level between 21 and 29 ng/mL (2).1. IOM (Hilbert of Medicine). 2010. Dietary reference intakes for calcium and D. Day [place]: The National Academies Press.2. Micky MF, Yohana [place], Kennedy PAL, et al. Evaluation, treatment, and prevention of vitamin D deficiency: an Endocrine Society clinical practice guideline. JCEM. 2010; 96(7):1911-30. :22 Comprehensive Metabolic Profil Comments: [facility] [address] [place], [address] GAP 8 (Normal) Range: 5-15 CO2 29.0 [...] 7-18 GLU 96 mg/dL (Normal) Range: 70-110 36-Okw-68121:22 Lipase Comments: [facility] [address] [place], [place], [address] LIPASE 583 U/L (Abnormal) Range: 73-393 :22 Lipid Profile Comments: [facility] [address] [place], [place], [address] VLDL 55 mg/dL (Abnormal) Range: 5-40 LDL [...] High Risk :22 Vitamin D,25 Hydroxy Comments: [facility] [address] [place], [address] Vitamin D 25-OH 37.0 ng/mL (Normal) Comments: Vitamin D 25(OH) Status Range Deficiency <20 ng/mL (50nmol/L) Insuffciency 20 - 30 ng/mL (50 - 75 nmol/L) Sufficiency 30 - 100 ng/mL (75 - 250 nmol/L) Toxicity >100 ng/mL (>250 nmol/L) 8-Xtz-589265:10 Culture, Nose Comments: [facility] [address] [place], [address] CUN See Note (Normal) Comments: Gram StainGram Stain 1+ White Blood Cells Rare Red Blood Cells No organisms seen Nasoph. CultNo Haemophilus, Streptococcus pneumoniae, beta-hemolytic Streptococcus or Staphylococcus aureus isolated. : EGD (PICK SITE) See Note (Normal) Comments: [facility] [address] [place], [address] 00 Comments: Patient: BRANDIE KUO : 1945 (70/F) Acct Num: [id number] Phys: Rylan Bird MD Unit Num: [id number] Loc: EN Specimen: [id number] Received: 06/16/1549 Spec Type: EGD B IOPSY TISSUES TISSUES: COMMENT A - The results of immunohistochemistry for Helicobacter pylori will be reportedseparately ([id number]). GROSS DESCRIPTION A - Received is one [...] one cassette. / AM: 06/16/15 TC:3 CPT: 60972 x4 HEADER OPERATION: EGD and colonoscopy with [...] biopsy: Melanosis coli. AM: 06/17/15 Signed [facility] 06/18/15 <signature on file> : IMMUNOHISTOCHEMISTRY See Note (Normal) Comments: [facility] [address] [place], [address] 00 Comments: Patient: BRANDIE KUO : 1945 (70/F) Acct Num: [id number] Phys: Pelon MONROE,Rylan Unit Num: [id number] Loc: EN Specimen: [id number] Received: 06/18/15 - 1004 Spec Type: IMMU NO TISSUES TISSUES: SPECIMEN INFORMATION: Tissue Source: Gastric antrum, biopsy Clinical Info: Reflux, epigastric pain Specimen Number: [id number] CPT code: 82800 METHODOLO GY: Deparaffinized sections of prefer/formalin-fixed tissue or PAP/DQ stained slides are incubated with monoclonal/polyclonal antibodies/oligonucleotide probes. Localization is made via biotin free immunoperoxidase method. Appropriate controls are performed and reacted as expected. Results on target cell population are indicated in the following table: RESULTS: ANTIBODY / CLONE RESULT H Pylori (polyclonal) negative These tests were developed and their performance characteristics determined by [facility]. They may not have been cleared or approved by the U.S. Food and Drug Administration. The FDA has determined that such clearance or approval is not necessary. INTERPRETATION: Gastric antrum, biopsy: Negative for H elicobacter pylori organisms. SJ:shaan 06/18/15 PHYSICIAN AND INSTITUTION [place] [address] Signed Bobby Yadav 06/18/15 <signature on file> 30-Kkn-02056:59 Urinalysis, Office (66817) UA - LEUKOCYTE ESTERASE Trace (Normal) UA - NITRITE Negative (Normal) URINE UROBILINGN MIKI TIMED 2 mg/dL (Normal) UA - PROTEIN Trace mg/dL (Normal) UA - PH 8.0 (Normal) UA - BLOOD Negative (Normal) UA - SPECIFIC GRAVITY 1.020 (Normal) UA - KETONES Small mg/dL (Normal) UA - BILIRUBIN Small (Normal) UA - GLUCOSE Negative (Normal) 18-Zwd-62509:34 URINE MAHENDRA CULTURE-IDENTIFICATN Comments: PATIENT NOT FASTINGPERFORMED BY: [facility] Uhwwmm8274 [facility] [id number] Information: [id number] (96465) Result 1 BETAGB (Abnormal) Comments: Beta hemolytic [...] per mL Urine Final report (Abnormal) Culture,Comprehensive 9-Nfu-061100:44 URINE MAHENDRA CULTURE-MIKI COL Comments: PATIENT NOT FASTINGPERFORMED BY: JAYDE [facility] Chdjui5725 Danni FregosoAtrium Health Union [id number] Information: SRC:URT [id number] COUNT (48498) Result 2 BETAGB (Abnormal) Comments: Beta hemolytic [...] primarily for treating urinary tract infections. (CLSI, B300-E82,2009) Urine Final report (Abnormal) Culture,Comprehensive 9-Buc-984280:12 Urinalysis, Office (53051) UA - LEUKOCYTE ESTERASE Negative (Normal) UA [...] DIFF WBC Comments: PATIENT WAS FASTINGPERFORMED BY: Orderlord gdgt Razo [facility] [id number] Information: [id number] (98124) Immature Grans (Abs) 0.0 {x10E3/uL} (Normal) Range: [...] (Normal) Range: 3.4-10.8 :26 Vitamin D Hydroxy (62633) Comments: PATIENT WAS FASTINGPERFORMED BY: OrderlordNew Mexico Behavioral Health Institute at Las VegasUhvksf2506 [facility] [id number] Vitamin D, 25-Hydroxy 36.5 ng/mL (Normal) Range: 30.0-100.0 Comments: Vitamin D deficiency has been defined by the Hilbert ofMedicine and an Endocrine Society practice guideline as alevel of serum 25-OH vitamin D less than 20 ng/mL (1,2).The Endocrine Society went on to further define vitamin Dinsufficiency as a level between 21 and 29 ng/mL (2).1. IOM (Hilbert of Medicine). 2010. Dietary reference intakes for calcium and D. Day [place]: The National Academies Press.2. Micky MF, Yohana COBURN, Kennedy PAL, et al. Evaluation, treatment, and prevention of vitamin D deficiency: an Endocrine Society clinical practice guideline. JCEM. 2010; 96(7):1911-30. :26 METABOLIC PANEL, COMPREHENSIVE Comments: PATIENT WAS FASTINGPERFORMED BY: LabCoBayonne Medical CenterHztrad7395 [facility] [id number] (91279) ALT (SGPT) 13 [iU]/L (Normal) Range: 0-32 [...] mg/dL (Normal) Range: 65-99 :26 LIPID PANEL (05626) Comments: PATIENT WAS FASTINGPERFORMED BY: OrderlordBayonne Medical CenterMysect0760 [facility] [id number] LDL/HDL Ratio 5.8 {ratio_units} (Abnormal) Range: 0.0-3.2 [...] Total 348 mg/dL (Abnormal) Range: 100-199 :26 CDLKV-YWADRAGJVMY-ERCTF (83717) Comments: PATIENT WAS FASTINGPERFORMED BY: OrderlordBayonne Medical CenterBthbuu4467 [facility] [id number] AFP, Serum, Tumor Marker 5.8 ng/mL (Normal) Range: 0.0-8.3 Comments: Carmencita ECLIA methodology :26 LIPASE (22090) Comments: PATIENT WAS FASTINGPERFORMED BY: OrderlordBayonne Medical CenterUwaitv0081 [facility] [id number] Lipase, Serum 117 U/L (Abnormal) Range: 0-59 :11 Comp. Metabolic Panel (14) Comments: PATIENT NOT FASTINGPERFORMED BY: OrderlordBayonne Medical CenterYxbiyz6843 [facility] [id number] Information: [id number] ALT (SGPT) 11 [iU]/L (Normal) Range: 0-32 [...] With LDL/HDL Comments: PATIENT NOT FASTINGPERFORMED BY: [facility]CoBay[facility] CenterEghemj9772 [facility] [id number]; will review at 02/09 appt Ratio LDL/HDL [...] ng/mL (Abnormal) Comments: PATIENT NOT FASTINGPERFORMED BY: [place] 3926070 [facility] [id number] :11 Range: 30.0-100.0 Comments: Vitamin D deficiency has been defined by the Hilbert ofMedicine and an Endocrine Society practice guideline as alevel of serum 25-OH vitamin D less than 20 ng/mL (1,2).The Endocrine Society went on to further define vitamin Dinsufficiency as a level between 21 and 29 ng/mL (2).1. IOM (Hilbert of Medicine). 2010. Dietary reference intakes for calcium and D. Day [place]: The National Academies Press.2. Micky MF, Yohana NC, Kennedy PAL, et al. Evaluation, treatment, and prevention of vitamin D deficiency: an Endocrine Society clinical practice guideline. JCEM. 2010; 96(7):1911-30. :37 LIPASE (72384) Comments: PATIENT NOT FASTINGPERFORMED BY: [place] 3926070 [facility] [id number] Information: [id number] Lipase, Serum 99 U/L (Abnormal) Range: 0-59 :48 Lipase (95537) Comments: PATIENT WAS FASTINGPERFORMED BY: [place] 3926070 [facility] [id number] Information: [id number] Lipase, Serum 110 U/L (Abnormal) Range: 0-59 :20 Basic Metabolic Profile (BMP) Comments: Test performed at:[facility] [address] [place] [address] GAP 8 (Normal) Range: 5-15 CO2 26.0 [...] 05-Sep-20145:20 CBC W/Diff, Automated Comments: Test performed at:[facility] Fambhkmkcr[address] [place], [place] [id number] Absolute Lymph 0.64 {X10_3/ul} (Abnormal) Range: 0.83-4.51 [...] Range: 4.4-11.0 :20 Lipase Comments: Test performed at:[facility] [address] [place] [address] LIPASE 377 U/L (Abnormal) Range: 70-290 :50 [...] (Normal) Range: 70-110 :50 Vitamin D Hydroxy (23150) Comments: PATIENT WAS FASTINGPERFORMED BY: LabCoBay[facility] CenterJekubs8802 [facility] [id number] Vitamin D, 25-Hydroxy 35.7 ng/mL (Normal) Range: 30.0-100.0 Comments: Vitamin D deficiency has been defined by the Hilbert ofMercy Healthcine and an Endocrine Society practice guideline as alevel of serum 25-OH vitamin D less than 20 ng/mL (1,2).The Endocrine Society went on to further define vitamin Dinsufficiency as a level between 21 and 29 ng/mL (2).1. IOM (Hilbert of Medicine). 2010. Dietary reference intakes for calcium and D. Day [place]: The National Academies Press.2. Micky MF, Yohana NC, Kennedy PAL, et al. Evaluation, treatment, and prevention of vitamin D deficiency: an Endocrine Society clinical practice guideline. JCEM. 2010; 96(7):1911-30. :50 LIPID PANEL (14438) Comments: PATIENT WAS FASTINGPERFORMED BY: [facility]6370 [facility] [id number] Information: [id number],2ND ORDER LDL/HDL Ratio 4.0 {ratio_units} (Abnormal) Range: [...] degree relatives should be collected. J Clin Oihgctg3515;5:133-140 LDL Cholesterol Calc 195 mg/dL (Abnormal) Range: 0-99 VLDL Cholesterol Rocky 32 mg/dL (Normal) Range: 5-40 HDL Cholesterol 49 mg/dL (Normal) Comments: According to ATP-III Guidelines, HDL-C >59 mg/dL is considered anegative risk factor for CHD. Triglycerides 160 mg/dL (Abnormal) Range: 0-149 Cholesterol, Total 276 mg/dL (Abnormal) Range: 100-199 :50 LGLMT-MHPHIKIMPPS-XOLWX (42924) Comments: PATIENT WAS FASTINGPERFORMED BY: [facility]6370 [facility] [id number] AFP, Serum, Tumor Marker 6.3 ng/mL (Normal) Range: 0.0-8.3 Comments: Carmencita ECLIA methodology :50 PTT (Activated Partial Comments: PATIENT WAS FASTINGPERFORMED BY: [facility]6370 [facility] [id number] Thromboplastin Time) (96264) aPTT 24 {sec} (Normal) Range: 24-33 Comments: This test has not been validated for monitoring unfractionated heparintherapy. aPTT-based therapeutic ranges for unfractionated heparintherapy have not been established. For general guidelines onHeparin monitoring, refer to the [facility] Directory of Services. :50 PT (Prothrobim Time) (34584) Comments: PATIENT WAS FASTINGPERFORMED BY: [facility]6370 [facility] [id number] Prothrombin Time 10.3 {sec} (Normal) Range: 9.1-12.0 INR 1.0 (Normal) Range: 0.8-1.2 Comments: Reference interval is for non-anticoagulated patients. . Suggested INR therapeutic range for Vitamin K anta gonist therapy: Standard Dose (moderate intensity therapeutic range): 2.0 - 3.0 Higher intensity therapeutic range 2.5 - 3.5 66-Cih-61409:19 CBC WITH MANUAL DIFF Comments: PATIENT WAS FASTINGPERFORMED BY: [facility]6370 [facility] [id number] Information: [id number] (10026) Immature Grans (Abs) 0.0 {x10E3/uL} (Normal) Range: [...] 3.77-5.28 WBC 4.5 {x10E3/uL} (Normal) Range: 3.4-10.8 58-Gom-80637:19 METABOLIC PANEL, COMPREHENSIVE Comments: PATIENT WAS FASTINGPERFORMED BY: [facility]CoBay[facility] CenterAzneyn5888 [facility] [id number] (37944) ALT (SGPT) 10 [iU]/L (Normal) Range: 0-32 [...] (Normal) Range: 65-99 :19 Vitamin D Hydroxy (90678) Comments: PATIENT WAS FASTINGPERFORMED BY: Triage[address] [employer] [facility] [id number] Vitamin D, 25-Hydroxy 42.1 ng/mL (Normal) Range: 30.0-100.0 Comments: Vitamin D deficiency has been defined by the Hilbert ofMer[facility] Healthcine and an Endocrine Society practice guideline as alevel of serum 25-OH vitamin D less than 20 ng/mL (1,2).The Endocrine Society went on to further define vitamin Dinsufficiency as a level between 21 and 29 ng/mL (2).1. IOM (Hilbert of Medicine). 2010. Dietary reference intakes for calcium and D. Day [place]: The National Academies Press.2. Micky MF, Yohana NC, Kennedy PAL, et al. Evaluation, treatment, and prevention of vitamin D deficiency: an Endocrine Society clinical practice guideline. JCEM. 2010; 96(7):1911-30. :19 LIPID PANEL (73166) Comments: PATIENT WAS FASTINGPERFORMED BY: [facility] Kmxndm5366 [facility] [id number] LDL/HDL Ratio 2.4 {ratio_units} (Normal) Range: 0.0-3.2 LDL Cholesterol Calc 126 mg/dL (Abnormal) Range: 0-99 VLDL Cholesterol Rocky 36 mg/dL (Normal) Range: 5-40 HDL Cholesterol 53 mg/dL (Normal) Comments: According to ATP-III Guidelines, HDL-C >59 mg/dL is considered anegative risk factor for CHD. Triglycerides 178 mg/dL (Abnormal) Range: 0-149 Cholesterol, Total 215 mg/dL (Abnormal) Range: 100-199 :41 T4, FREE (THYROXINE) (29773) Comments: PATIENT WAS FASTINGPERFORMED BY: OrderlordBayonne Medical CenterSlweym3345 [facility] [id number] T4,Free(Direct) 1.00 ng/dL (Normal) Range: 0.82-1.77 :41 T3, FREE (TRIDOTHYRONINE) (44381) Comments: PATIENT WAS FASTINGPERFORMED BY: OrderlordBayonne Medical CenterKnfdiu6069 [facility] [id number] Triiodothyronine,Free,Serum 3.0 pg/mL (Normal) Range: 2.0-4.4 :41 TSH (79451) Comments: PATIENT WAS FASTINGPERFORMED BY: Orderlord Zzuiob1909 [facility] [id number] TSH 1.740 {uIU/mL} (Normal) Range: 0.450-4.500 :41 LIPID PANEL (21428) Comments: PATIENT WAS FASTINGPERFORMED BY: OrderlordBayonne Medical CenterLdoluv7640 [facility] [id number] Information: [id number],NO DRAW FEE 2ND ORD ER; see message [...] Total 191 mg/dL (Normal) Range: 100-199 :19 RHUSE-ZVDLMQNNIJT-VREKP (88491) Comments: PATIENT WAS FASTINGPERFORMED BY: [facility]6370 [facility] [id number] AFP, Serum, Tumor Marker 5.2 ng/mL (Normal) Range: 0.0-8.3 Comments: Carmencita ECLIA methodology :19 PTT (Activated Partial Comments: PATIENT WAS FASTINGPERFORMED BY: [facility]6370 [facility] [id number] Thromboplastin Time) (05051) aPTT 25 {sec} (Normal) Range: 24-33 Comments: This test has not been validated for monitoring unfractionated heparintherapy. aPTT-based therapeutic ranges for unfractionated heparintherapy have not been established. For general guidelines onHeparin monitoring, refer to the [facility] Directory of Services. :19 PT (Prothrobim Time) (30951) Comments: PATIENT WAS FASTINGPERFORMED BY: [facility]6370 [facility] [id number] Prothrombin Time 11.0 {sec} (Normal) Range: 9.1-12.0 INR 1.1 (Normal) Range: 0.8-1.2 Comments: Reference interval is for non-anticoagulated patients. . Suggested INR therapeutic range for Vitamin K anta gonist therapy: Standard Dose (moderate intensity therapeutic range): 2.0 - 3.0 Higher intensity therapeutic range 2.5 - 3.5 :19 CBC WITH MANUAL DIFF Comments: PATIENT WAS FASTINGPERFORMED BY: [facility]6370 [facility] [id number] Information: [id number] (49586) Immature Grans (Abs) 0.0 {x10E3/uL} (Normal) Range: [...] 3.77-5.28 WBC 3.7 {x10E3/uL} (Normal) Range: 3.4-10.8 56-Coa-73223:19 METABOLIC PANEL, COMPREHENSIVE Comments: PATIENT WAS FASTINGPERFORMED BY: LabCoBayonne Medical CenterApgole0294 [facility] [id number] (18133) ALT (SGPT) 10 [iU]/L (Normal) Range: 0-32 [...] (Normal) Range: 65-99 :19 Vitamin D Hydroxy (16922) Comments: PATIENT WAS FASTINGPERFORMED BY: Triage70 [employer] [facility] ExperienceAt[facility] Union [id number] Vitamin D, 25-Hydroxy 36.2 ng/mL (Normal) Range: 30.0-100.0 Comments: Vitamin D deficiency has been defined by the Hilbert ofMedicine and an Endocrine Society practice guideline as alevel of serum 25-OH vitamin D less than 20 ng/mL (1,2).The Endocrine Society went on to further define vitamin Dinsufficiency as a level between 21 and 29 ng/mL (2).1. IOM (Hilbert of Medicine). 2010. Dietary reference intakes for calcium and D. Day [place]: The National Academies Press.2. Micky MF, Yohana NC, Kennedy PAL, et al. Evaluation, treatment, and prevention of vitamin D deficiency: an Endocrine Society clinical practice guideline. JCEM. 2010; 96(7):1911-30. :55 URINE MAHENDRA CULTURE (MIKI Comments: PATIENT NOT FASTINGPERFORMED BY: [employer] Pmaami0824 [facility] [id number] Information: SRC:UR [id number] COL COUNT) (00852) Result 1 BETAGB (Normal) Comments: Beta hemolytic [...] Final report (Normal) Culture,Comprehensive 08-Sep-20139:43 Urinalysis, Office (21879) UA - BILIRUBIN Negative (Normal) UA - BLOOD Negative (Normal) UA - GLUCOSE Negative (Normal) UA - KETONES Negative mg/dL (Normal) UA - LEUKOCYTE ESTERASE Small (Normal) UA - NITRITE Negative (Normal) UA - PH 7.0 (Normal) UA - PROTEIN Negative mg/dL (Normal) UA - SPECIFIC GRAVITY 1.025 (Normal) URINE UROBILINGN MIKI TIMED Normal mg/dL (Normal) :13 LIPID PANEL (12803) Comments: PATIENT WAS FASTINGPERFORMED BY: [facility] [id number] LDL Cholesterol Calc 93 mg/dL (Normal) Range: [...] MANUAL DIFF Comments: PATIENT WAS FASTINGPERFORMED BY: [employer] [facility] [id number] Information: [id number] (70178) Immature Grans (Abs) 0.0 {x10E3/uL} (Normal) Range: [...] 3.77-5.28 WBC 4.1 {x10E3/uL} (Normal) Range: 3.4-10.8 10-Vvd-17790:13 METABOLIC PANEL, COMPREHENSIVE Comments: PATIENT WAS FASTINGPERFORMED BY: LabCoBay[facility] CenterAbzlqv0367 [facility] [id number] (48923) ALT (SGPT) 16 [iU]/L (Normal) Range: 0-32 [...] (Normal) Range: 65-99 :13 Vitamin D Hydroxy (39401) Comments: PATIENT WAS FASTINGPERFORMED BY: [facility]6370 [facility] [id number] Vitamin D, 25-Hydroxy 40.1 ng/mL (Normal) Range: 30.0-100.0 Comments: Vitamin D deficiency has been defined by the Hilbert ofMercy Healthcine and an Endocrine Society practice guideline as alevel of serum 25-OH vitamin D less than 20 ng/mL (1,2).The Endocrine Society went on to further define vitamin Dinsufficiency as a level between 21 and 29 ng/mL (2).1. IOM (Hilbert of Medicine). 2010. Dietary reference intakes for [...] Signed:Milly PhamApril 24, 2013 at 2:03:02 PM [id number] Signed RU/RU If you are the referring physician and would like to consult with theradiologist who provided this interpretation, please conta mikhail Sheehan M.D. at [phone]. If this radiologist is unavailable, youwillbe directed to another radiologist to assist. If you are a patient with a question regarding this report, pleasecontac tyour referring physician directly. Professional Interpretation Provided By: USMD, Phone , These documents contain legally protected [...] Montoya on 04/24/131427 Sign by: Carson Montoya 47-Tkh-12497:33 TRANSVAGINAL NON- Radiology See Note Comments: CLINICAL:Female, [...] Montoya M.D.April 24, 2013 at 2:03:00 PM [id number] Signed RU/RU If you are the referring physician a nd would like to consult with theradiologist who provided this interpretation, please contact Joshua Sheehan at [phone]. If this radiologist is unavailable, youellyllbe directed to another radi ologist to assist. If you are a patient with a question regarding this report, pleasecontactyour referring physician directly. Professional Interpretation Provided By: USMD, Phone , These documents contain legally protected [...] on 04/24/13 1436 Sign by: Carson Montoya 32-Iye-386159:01 URINE MAHENDRA CULTURE-IDENTIFICATN Comments: PATIENT NOT FASTINGPERFORMED BY: [facility] Nwolzq0110 [facility] [id number] Information: [id number] (46470) Result 1 Enterococcus faecalis Comments: 3,000 Colonies/mLNote: this isolate is vancomycin-susceptible.This information is provided for epidemiologic purposesonly: vancomycin is not among the antibioticsrecommended for therapy of urinary tract (Normal) infectionscaused by Enterococcus.For Enterococcus species, cephalosporins, aminoglycosides (except forhigh-level resistance screening), clindamycin, and trimethoprim-sulfamethoxazole are not effective clinically. Fluoroquinolones areused primarily for treating urinary tract infections. (CLSI, V724-P73,2009) Result 2 BETAGB (Normal) Comments: Beta hemolytic [...] RVancomycin S Urine Final report (Normal) CultureIsh 46-Zwr-435321:55 Urinalysis, Office (39281) UA - LEUKOCYTE ESTERASE Small (Normal) UA [...] Carroll M.D.January 01, 2013 at 8:13:49 AM [phone] Signed GP/GP If you are the referring physician and would like to consult with theradiologist who provided this interpretation, please contact Joshua Brunson at [phone]. If this radiologist is unavailable, youwill be directed to [facility] r radiologist to assist. If you are [...] on 01/01/13833 Sign by: Zbigniew Carroll MD 78-Apj-42186:18 ABDOMEN COMPLETE Radiology Report See Note (Normal) [...] Carroll M.D.December 20, 2012 at 12:53:26 PM [phone] Signed GP/GP If you are the referring physician and would like to consult with theradiologist who provided this interpretation, please contact Alyssa parikh M.D. at [phone]. If this radiologist is unavailable, youwill be directed to another radiologist to assist. If you are a patient with a question regarding this report, pleasecontactyour referring physician directly. Professional Interpretation Provided By: USMD, Phone , These documents contain legally protected [...] 12/20/12 1256 Sign by: Zbigniew Carroll MD 97-Dxm-68317:34 HEPATIC FUNCTION PANEL Comments: PATIENT WAS FASTINGPERFORMED BY: [facility]6370 [facility] [id number] (24462) ALT (SGPT) 28 [iU]/L (Normal) Range: 0-32 AST (SGOT) 39 [iU]/L (Normal) Range: 0-40 Alkaline Phosphatase, S 99 [iU]/L (Normal) Range: 47-112 Bilirubin, Direct 0.17 mg/dL (Normal) Range: 0.00-0.40 Bilirubin, Total 0.7 mg/dL (Normal) Range: 0.0-1.2 Albumin, Serum 4.6 g/dL (Normal) Range: 3.6-4.8 Protein, Total, Serum 7.2 g/dL (Normal) Range: 6.0-8.5 :34 LIPID PANEL (45091) Comments: PATIENT WAS FASTINGPERFORMED BY: SinglePlatformBayonne Medical CenterVyxvnq0833 [facility] [id number] Information: [id number] LDL/HDL Ratio 1.7 {ratio_units} (Normal) Range: 0.0-3.2 HDL Cholesterol 62 mg/dL (Normal) Comments: According to ATP-III Guidelines, HDL-C >59 mg/dL is considered anegative risk factor for CHD. LDL Cholesterol Calc 104 mg/dL (Abnormal) Range: 0-99 VLDL Cholesterol Rocky 32 mg/dL (Normal) Range: 5-40 Triglycerides 158 mg/dL (Abnormal) Range: 0-149 Cholesterol, Total 198 mg/dL (Normal) Range: 100-199 :34 ZWCDH-RLBUYNAHETD-SYBYO (40974) Comments: PATIENT WAS FASTINGPERFORMED BY: [employer] Mojkqb0098 [facility] [id number] AFP, Serum, Tumor Marker 5.3 ng/mL (Normal) Range: 0.0-8.3 Comments: Carmencita ECLIA methodology :34 PTT (Activated Partial Comments: PATIENT WAS FASTINGPERFORMED BY: OrderlordBayonne Medical CenterXppnfj0468 [facility] [id number] Thromboplastin Time) (73090) aPTT 27 {sec} (Normal) Range: 24-33 Comments: This test has not been validated for monitoring unfractionated heparintherapy. aPTT-based therapeutic ranges for unfractionated heparintherapy have not been established. For general guidelines onHeparin monitoring, refer to the [facility] Directory of Services. :34 PT (Prothrobim Time) (20811) Comments: PATIENT WAS FASTINGPERFORMED BY: [facility]6370 [facility] [id number] INR 1.0 (Normal) Range: 0.8-1.2 Comments: Reference interval is for non-anticoagulated patients. . Suggested INR therapeutic range for Vitamin K anta gonist therapy: Standard Dose (moderate intensity therapeutic range): 2.0 - 3.0 Higher intensity therapeutic range 2.5 - 3.5 Prothrombin Time 10.3 {sec} (Normal) Range: 9.1-12.0 :28 METABOLIC PANEL, COMPREHENSIVE Comments: PATIENT WAS FASTINGPERFORMED BY: [facility]6370 [facility] [id number] (62148) ALT (SGPT) 11 [iU]/L (Normal) Range: 0-32 [...] MANUAL DIFF Comments: PATIENT WAS FASTINGPERFORMED BY: [facility]6370 [facility] [id number] Information: [id number] (67154) Immature Grans (Abs) 0.0 {x10E3/uL} (Normal) Range: [...] (Normal) Range: 4.0-10.5 :28 Vitamin D Hydroxy (59575) Comments: PATIENT WAS FASTINGPERFORMED BY: [employer] Txnchj3602 [facility] [id number] Vitamin D, 25-Hydroxy 48.4 ng/mL (Normal) Range: 30.0-100.0 Comments: Vitamin D deficiency has been defined by the Hilbert ofMedicine and an Endocrine Society practice guideline as alevel of serum 25-OH vitamin D less than 20 ng/mL (1,2).The Endocrine Society went on to further define vitamin Dinsufficiency as a level between 21 and 29 ng/mL (2).1. IOM (Hilbert of Medicine). 2010. Dietary reference intakes for calcium and D. Day [place]: The National Academies Press.2. Micky MF, Yohana COBURN, Kennedy PAL, et al. Evaluation, treatment, and prevention of vitamin D deficiency: an Endocrine Society clinical practice guideline. JCEM. 2010; 96(7):1911-30. :28 LIPID PANEL (20896) Comments: PATIENT WAS FASTINGPERFORMED BY: [employer]6370 [facility] [id number] LDL/HDL Ratio 2.2 {ratio_units} (Normal) Range: 0.0-3.2 [...] METABOLIC PANEL, Comments: PATIENT NOT FASTINGPERFORMED BY: Orderlord Urgwws2376 [facility] [id number] Information: [id number] COMPREHENSIVE (32034) Alkaline Phosphatase, S 83 [iU]/L (Normal) Range: [...] Serum 90 mg/dL (Normal) Range: 65-99 :07 UAPIK-HNPHIUPGFXO-WZVSG (97837) Comments: PATIENT NOT FASTINGPERFORMED BY: [employer]6370 [employer] [facility] [id number] AFP, Serum, Tumor Marker 5.0 ng/mL (Normal) Range: 0.0-8.3 Comments: Carmencita ECLIA methodology :07 PTT (Activated Partial Comments: PATIENT NOT FASTINGPERFORMED BY: Orderlord Bsvzln5957 [facility] [id number] Thromboplastin Time) (87372) aPTT 25 {sec} (Normal) Range: 24-33 Comments: This test has not been validated for monitoring unfractionated heparintherapy. aPTT-based therapeutic ranges for unfractionated heparintherapy have not been established. For general guidelines onHeparin monitoring, refer to the [facility] Directory of Services. :07 PT (Prothrobim Time) (36993) Comments: PATIENT NOT FASTINGPERFORMED BY: [facility]6370 [facility] [id number] Prothrombin Time 10.8 {sec} (Normal) Range: 9.1-12.0 INR 1.0 (Normal) Range: 0.8-1.2 Comments: Reference interval is for non-anticoagulated patients. . Suggested INR therapeutic range for Vitamin K anta gonist therapy: Standard Dose (moderate intensity therapeutic range): 2.0 - 3.0 Higher intensity therapeutic range 2.5 - 3.5 :07 Vitamin D Hydroxy (33779) Comments: PATIENT NOT FASTINGPERFORMED BY: [facility]6370 [facility] [id number] Vitamin D, 25-Hydroxy 51.6 ng/mL (Normal) Range: 30.0-100.0 Comments: Vitamin D deficiency has been defined by the Hilbert ofMedicine and an Endocrine Society practice guideline as alevel of serum 25-OH vitamin D less than 20 ng/mL (1,2).The Endocrine Society went on to further define vitamin Dinsufficiency as a level between 21 and 29 ng/mL (2).1. IOM (Hilbert of Medicine). 2010. Dietary reference intakes for calcium and D. Day [place]: The National Academies Press.2. Micky MF, Yohana NC, Kennedy PAL, et al. Evaluation, treatment, and prevention of vitamin D deficiency: an Endocrine Society clinical practice guideline. JCEM. 2010; 96(7):1911-30. :08 Vitamin D Hydroxy (88023) Comments: PATIENT WAS FASTINGPERFORMED BY: [facility]6370 [facility] [id number] Vitamin D, 25-Hydroxy 87.1 ng/mL (Normal) Range: 30.0-100.0 Comments: Vitamin D deficiency has been defined by the Hilbert ofMedicine and an Endocrine Society practice guideline as alevel of serum 25-OH vitamin D less than 20 ng/mL (1,2).The Endocrine Society went on to further define vitamin Dinsufficiency as a level between 21 and 29 ng/mL (2).1. IOM (Hilbert of Medicine). 2010. Dietary reference intakes for calcium and D. Day [place]: The National Academies Press.2. Micky MF, Yohana COBURN, Kennedy PAL, et al. Evaluation, treatment, and prevention of vitamin D deficiency: an Endocrine Society clinical practice guideline. JCEM. 2010; 96(7):1911-30. :08 LIPID PANEL (29013) Comments: PATIENT WAS FASTINGPERFORMED BY: [facility]lordBayonne Medical CenterAdjshr5080 [facility] [id number] LDL/HDL Ratio 5.1 {ratio_units} (Abnormal) Range: 0.0-3.2 LDL Cholesterol Calc 216 mg/dL (Abnormal) Range: 0-99 Comments: Please note reference interval changePossible Familial Hypercholesterolemia. FH should be suspected whenfasting LDL cholesterol is above 189 mg/dL or non- HDL cholesterolis above 219 mg/dL. A family history of high cholesterol and heartdisease in 1st degree relatives should be collected. J Clin Rnxodfh1051;5:133-140 VLDL Cholesterol Rocky 47 mg/dL (Abnormal) Range: 5-40 HDL Cholesterol 42 mg/dL (Normal) Comments: According to ATP-III Guidelines, HDL-C >59 mg/dL is considered anegative risk factor for CHD. Triglycerides 237 mg/dL (Abnormal) Range: 0-149 Comments: Please note reference interval change Cholesterol, Total 305 mg/dL (Abnormal) Range: 100-199 Comments: Please note reference interval change :08 METABOLIC PANEL, Comments: PATIENT WAS FASTINGPERFORMED BY: OrderlordBayonne Medical CenterBmhutw8853 [facility] [id number] Information: [id number] COMPREHENSIVE (71742) ALT (SGPT) 14 [iU]/L (Normal) Range: 0-40 [...] 95 mg/dL (Normal) Range: 65-99 :25 TSH (08380) Comments: PATIENT NOT FASTINGPERFORMED BY: OrderlordBayonne Medical CenterWtzhjq7051 [facility] [id number] Information: [id number] TSH 2.830 {uIU/mL} (Normal) Range: 0.450-4.500 :25 SED RATE ERYTHROCYTE (63816) Comments: PATIENT NOT FASTINGPERFORMED BY: APT PharmaceuticalsMary [facility] Bed Rehabilitation Hospital6370 [facility] [id number] Sedimentation Rate-Westergren 14 mm/h (Normal) Range: 0-40 :25 C-REACTIVE PROTEIN (94108) Comments: PATIENT NOT FASTINGPERFORMED BY: APT PharmaceuticalsMary [facility] Bed Rehabilitation Hospital6370 [facility] [id number] C-Reactive Protein, Quant 1.9 mg/L (Normal) Range: 0.0-4.9 :25 RHEUMATOID FACTOR-QUANT (57872) Comments: PATIENT NOT FASTINGPERFORMED BY: [facility] Odtpmd5027 [facility] [id number] RA Latex Turbid. 8.6 {IU/mL} (Normal) Range: 0.0-13.9 06-Feb-20129:25 RENUKA (ANTINUCLEAR ANTIBODY) Comments: PATIENT NOT FASTINGPERFORMED BY: CB [facility] Ouqcjy8043 [facility] [id number] (98527) RENUKA Direct Negative (Normal) :25 Creatine Kinase Total (21460) Comments: PATIENT NOT FASTINGPERFORMED BY: CB [facility] Wtdkwk1339 [facility] [id number] Creatine Kinase,Total,Serum 127 U/L (Normal) Range: 24-173 73-Iht-529332:38 BILAT SCRN DIGITAL & CAD Radiology Report See Note (Normal) Comments: MAMMOGRAPHY - BILATERAL SCREENING REASON FOR EXAM: Female, 66 years old. Routine annual screeningexamination. PERTINENT HISTORY: Prior left excisional biopsy. TECHNIQUE: Digital exami [facility]. Med iolateral oblique (MLO) andcraniocaudad (CC) views [...] lectronically Signed GP/GP Professional Interpretation Provided By: [facility], , To consult with a radiologist regarding this report, please call our 31O6wesnlbo line @ Dictated on 01/01/12 1145 by Ana MONROE,FordriAngelranscribed on 01/01/12 1301 by ITS IMPORTSign by Zbigniew Carroll MD on 01/01/12 1302 Sign by: Zbigniew Carroll MD :48 Vitamin D Hydroxy (21785) Comments: PATIENT WAS FASTINGPERFORMED BY: [employer] Ywphcv1834 [facility] [id number] Vitamin D, 25-Hydroxy 64.5 ng/mL (Normal) Range: 30.0-100.0 Comments: Vitamin D deficiency has been defined by the Hilbert ofMedicine and an Endocrine Society practice guideline as alevel of serum 25-OH vitamin D less than 20 ng/mL (1,2).The Endocrine Society went on to further define vitamin Dinsufficiency as a level between 21 and 29 ng/mL (2).1. IOM (Hilbert of Medicine). 2010. Dietary reference intakes for calcium and D. [place]: The National Academies Press.2. Micky MF, Yohana NC, Kennedy PAL, et al. Evaluation, treatment, and prevention of vitamin D deficiency: an Endocrine Society clinical practice guideline. JCEM. 2010; 96(7):1911-30. :48 CBC WITH MANUAL DIFF Comments: PATIENT WAS FASTINGPERFORMED BY: [facility] Dwrdha0824 [facility] [id number] Information: [id number] (03102) Immature Grans (Abs) 0.0 {x10E3/uL} (Normal) Range: [...] 3.80-5.10 WBC 4.2 {x10E3/uL} (Normal) Range: 4.0-10.5 81-Chc-58461:48 METABOLIC PANEL, COMPREHENSIVE Comments: PATIENT WAS FASTINGPERFORMED BY: LabCoBayonne Medical CenterJaypsv5609 [facility] [id number] (13456) ALT (SGPT) 16 [iU]/L (Normal) Range: 0-40 [...] Glucose, Serum 80 mg/dL (Normal) Range: 65-99 14-Tsj-35492:48 LIPID PANEL (64773) Comments: PATIENT WAS FASTINGPERFORMED BY: [facility] Teygou5396 [facility] [id number] LDL Cholesterol Calc 188 mg/dL (Abnormal) Range: [...] 07/13/11 1331 Sign by: Zbigniew Carroll MD 03-Nwi-36208:44 Vitamin D Hydroxy (21566) Comments: PATIENT WAS FASTINGPERFORMED BY: [facility]6370 [facility] [id number] Vitamin D, 25-Hydroxy 32.1 ng/mL (Normal) Range: 30.0-100.0 Comments: Vitamin D deficiency has been defined by the Hilbert ofMedicine and an Endocrine Society practice guideline as alevel of serum 25-OH vitamin D less than 20 ng/mL (1,2).The Endocrine Society went on to further define vitamin Dinsufficiency as a level between 21 and 29 ng/mL (2).1. IOM (Hilbert of Medicine). 2011. Dietary reference intakes for calcium and D. [place]: The National Academies Press.2. Micky MF, Yohana COBURN, Kennedy PAL, et al. Evaluation, treatment, and prevention of vitamin D deficiency: an Endocrine Society clinical practice guideline. JCEM. 2010; 96(7):1911-30. :44 LIPID PANEL (57951) Comments: PATIENT WAS FASTINGPERFORMED BY: [employer]6370 [facility] [id number] LDL/HDL Ratio 2.2 {ratio_units} (Normal) Range: 0.0-3.2 [...] PANEL, COMPREHENSIVE Comments: PATIENT WAS FASTINGPERFORMED BY: SinglePlatformBayonne Medical CenterFctayf0956 [facility] [id number] (05070) ALT (SGPT) 18 [iU]/L (Normal) Range: 0-40 [...] (LACTATE DEHYDROGENASE) Comments: PATIENT WAS FASTINGPERFORMED BY: [employer] [place] [id number] (53946) LDH 175 [iU]/L (Normal) Range: 0-214 :44 FOLIC ACID SERUM (99269) Comments: PATIENT WAS FASTINGPERFORMED BY: [employer]6370 [employer] Experience[employer] [place] [id number] Folate (Folic Acid), Serum >19.9 ng/mL (Normal) Comments: Indeterminate: 2.2 - 3.0 Deficient: <2.2 :44 VITAMIN B-12 (CYANOCOBALAMIN) Comments: PATIENT WAS FASTINGPERFORMED BY: Triage70 [employer] Experienceblin [place] [id number] (15759) Vitamin B12 397 pg/mL (Normal) Range: 211-946 :44 CBC WITH MANUAL DIFF Comments: PATIENT WAS FASTINGPERFORMED BY: Triage70 [employer] Experiencein [place] [id number] Information: [id number], [id number] (16942) Immature Grans (Abs) 0.0 {x10E3/uL} (Normal) Range: [...] 3.80-5.10 WBC 4.4 {x10E3/uL} (Normal) Range: 4.0-10.5 30-Dea-158879:58 RIBS,UNI,MIN 3V,W/PA CHEST Radiology Report See Note [...] difficile Toxins Negative (Normal) Comments: PERFORMED BY: [facility] [id number] 4:58 A+B, EIA Occult Blood, Fecal, Negative (Normal) Comments: PERFORMED BY: APT PharmaceuticalsSaint [facility] Tmihbv28[address] [place] [address] [id number] 4:58 IA :58 Ova + Parasite Exam Comments: PERFORMED BY: APT PharmaceuticalsMary [facility] Hospital[address] [place] [address] [id number] Result 1 NOCP (Normal) Comments: No ova, cysts, or parasites seen. Ova + Parasite Exam Final report (Normal) Comments: These results were obtained using wet preparation(s) and trichromestained smear. This test does not include testing for Cryptosporidiumparvum, Cyclospora, or Microsporidia. :58 Stool Culture Comments: PERFORMED BY: APT PharmaceuticalsSaint [facility] Jycwia[address] [place] [address] [id number] Information: SRC:ST E coli Shiga Toxin EIA Negative (Normal) Result 1 NCI (Normal) Comments: No Campylobacter species isolated. Campylobacter Culture Final report (Normal) Result 1 NSS (Normal) Comments: No Salmonella or Shigella recovered. Salmonella/Shigella Screen Final report (Normal) :58 White Blood Cells (WBC), Comments: PERFORMED BY: APT PharmaceuticalsSaint [facility] Owfuxl7379 [facility] [id number] Stool Result 1 NWBC (Normal) Comments: No white blood cells seen. White Blood Cells (WBC), Final report (Normal) Comments: Reference Range: None Seen Stool 28-Zgf-824202:07 VITAMIN B-12 (CYANOCOBALAMIN) Comments: PATIENT NOT FASTINGPERFORMED BY: OrderlordBayonne Medical CenterTgyynt8510 [facility] [id number] (90312) Vitamin B12 393 pg/mL (Normal) Range: 211-946 11-Vye-554897:07 IRON BINDING CAPACITY Comments: PATIENT NOT FASTINGPERFORMED BY: APT PharmaceuticalsMary [facility] Hospital6370 [facility] [id number] Information: [id number] (TIBC) (67977) Iron Saturation 17 % (Normal) Range: 15-55 Iron, Serum 68 ug/dL (Normal) Range: 35-155 UIBC 335 ug/dL (Normal) Range: 150-375 Iron Bind.Cap.(TIBC) 403 ug/dL (Normal) Range: 250-450 52-Haa-340540:07 FERRITIN (37736) Comments: PATIENT NOT FASTINGPERFORMED BY: OrderlordBayonne Medical CenterJykmiy3033 [facility] [id number] Ferritin, Serum 42 ng/mL (Normal) Range: 13-150 91-Ckl-471682:29 BRAIN/HEAD WITHOUT CONTRAST Radiology Report See Note [...] DIFF Comments: PATIENT WAS FASTINGPERFORMED BY: [facility] Oikdvb8016 [facility] [id number] Information: ADD [id number] AND DRAW FEE 99 8715 (43114) Immature Grans (Abs) 0.0 {x10E3/uL} (Normal) Range: [...] PANEL, COMPREHENSIVE Comments: PATIENT WAS FASTINGPERFORMED BY: Triage70 [facility] [id number] (72924) ALT (SGPT) 30 [iU]/L (Normal) Range: 0-40 [...] mg/dL (Normal) Range: 65-99 :32 LIPID PANEL (35278) Comments: PATIENT WAS FASTINGPERFORMED BY: Triage70 [facility] [id number] LDL/HDL Ratio 2.6 {ratio_units} (Normal) Range: 0.0-3.2 LDL Cholesterol Calc 118 mg/dL (Abnormal) Range: 0-99 VLDL Cholesterol Rocky 28 mg/dL (Normal) Range: 5-40 HDL Cholesterol 46 mg/dL (Normal) Comments: According to ATP-III Guidelines, HDL-C >59 mg/dL is considered anegative risk factor for CHD. Triglycerides 141 mg/dL (Normal) Range: 0-149 Cholesterol, Total 192 mg/dL (Normal) Range: 100-199 :32 TSH (32263) Comments: PATIENT WAS FASTINGPERFORMED BY: [employer]6370 [employer] Experience[employer] [place] [id number] TSH 3.120 {uIU/mL} (Normal) Range: 0.450-4.500 :32 Vitamin D Hydroxy (68568) Comments: PATIENT WAS FASTINGPERFORMED BY: [employer]6370 [facility] Centerkingskyblin [place] [id number] Vitamin D, 25-Hydroxy 57.0 ng/mL (Normal) Range: 32.0-100.0 Comments: Effective July 24, 2011 Vitamin D, 25-Hydroxy reference intervals will be changing to 30-100. .Recent studies consider the lower li geovanny of 32.0 ng/mL to be athreshold for optimal health.Sandhu BW. J Nutr. 2004;135(2):317-. :38 Vitamin D Hydroxy (53195) Comments: PATIENT WAS FASTINGPERFORMED BY: Orderlord Yglish3120 [facility] [place] [id number] Vitamin D, 25-Hydroxy 59.4 ng/mL (Normal) Range: 32.0-100.0 Comments: Recent studies consider the lower limit of 32.0 ng/mL to be athreshold for optimal health.Sandhu BW. J Nutr. 2004;135(2):317-22. :38 METABOLIC PANEL, Comments: PATIENT WAS FASTINGPERFORMED BY: Orderlord Gywmmd3410 [facility] [place] [id number] Information: [id number] COMPREHENSIVE (45500) ALT (SGPT) 14 [iU]/L (Normal) Range: 0-40 [...] mg/dL (Normal) Range: 65-99 :38 LIPID PANEL (88937) Comments: PATIENT WAS FASTINGPERFORMED BY: LabCoBayonne Medical CenterLqhlbe8015 [facility] [id number]; 02/14/11 LDL Cholesterol Calc 120 mg/dL (Abnormal) Range: 0-99 LDL/HDL Ratio 2.5 {ratio_units} (Normal) Range: 0.0-3.2 HDL Cholesterol 48 mg/dL (Normal) Comments: According to ATP-III Guidelines, HDL-C >59 mg/dL is considered anegative risk factor for CHD. VLDL Cholesterol Rocky 31 mg/dL (Normal) Range: 5-40 Cholesterol, Total 199 mg/dL (Normal) Range: 100-199 Triglycerides 155 mg/dL (Abnormal) Range: 0-149 99-Hcd-458510:44 CBC With Differential/Platelet Comments: A courtesy copy of this report has been sent [phone].PATIENT WAS FASTINGPERFORMED BY: [facility] Nzuyyg4165 [facility] [id number] Information: [id number] Immature Grans (Abs) 0.0 {x10E3/uL} (Normal) Range: [...] 3.80-5.10 WBC 4.6 {x10E3/uL} (Normal) Range: 4.0-10.5 71-Pmj-932695:44 Comp. Metabolic Panel (14) Comments: A courtesy copy of this report has been sent [phone].PATIENT WAS FASTINGPERFORMED BY: LabCoBayonne Medical CenterWvojoe0243 [facility] [id number] ALT (SGPT) 16 [iU]/L (Normal) Range: 0-40 [...] Glucose, Serum 91 mg/dL (Normal) Range: 65-99 67-Xpu-652961:44 Lipid Panel With LDL/HDL Comments: A courtesy copy of this report has been sent [phone].PATIENT WAS FASTINGPERFORMED BY: OrderlordBayonne Medical CenterVuhtru7209 [facility] [id number] Ratio LDL Cholesterol Calc 215 mg/dL (Abnormal) [...] copy of this report has been sent [phone].PATIENT WAS FASTINGPERFORMED BY: OrderlordBayonne Medical CenterBdirmk5106 [facility] [id number] 1:44 Range: 32.0-100.0 Comments: Recent studies consider the lower limit of 32.0 ng/mL to be athreshold for optimal health.Edson WRIGHT. J Nutr. 2004;135(2):317-22. 03-Jgu-96609:56 BILAT SCRN DIGITAL & CAD Radiology Report See Note (Normal) Comments: Exam Number: [id number] AMMOGRAPHY - BILATERAL SCREENING INDICATION:Routine annual screening [...] attaching a ResultCode to this exam. ADDENDUM: [id number] HPBI/MDS Reported By: CLEVELAND CHAND M.D. 87-Lwq-14069:26 Metabolic Panel, Comments: PATIENT WAS FASTINGPERFORMED BY: LabCoBay[facility] Medical CenterVslqph8048 [facility] [id number] Information: [id number] Comprehensive (65290) ALT (SGPT) 19 [iU]/L (Normal) Range: 0-40 [...] 91 mg/dL (Normal) Range: 65-99 :26 TSH (68928) Comments: PATIENT WAS FASTINGPERFORMED BY: [facility] Rjthob0350 [facility] [place] [id number] TSH 3.450 {uIU/mL} (Normal) Range: 0.450-4.500 :26 Vitamin D Hydroxy (13294) Comments: PATIENT WAS FASTINGPERFORMED BY: [facility] Xhawyi4627 [facility] [id number] Vitamin D, 25-Hydroxy 61.8 ng/mL (Normal) Range: 32.0-100.0 Comments: Recent studies consider the lower limit of 32.0 ng/mL to be athreshold for optimal health.Edson WRIGHT. J Nutr. 2004;135(2):317-22. :26 Lipid Panel (22628) Comments: PATIENT WAS FASTINGPERFORMED BY: [employer] LabK-12 Techno Servicesrp Yxvrbn5494 [facility] [id number] Cholesterol, Total 234 mg/dL (Abnormal) Range: 100-199 [...] PANEL, Comments: PATIENT WAS FASTINGPERFORMED BY: [facility] Wnjbeo6282 [facility] [id number] Information: [id number] COMPREHENSIVE (24780) A/G Ratio 1.7 (Normal) Range: 1.1-2.5 Alkaline [...] (Normal) Range: 65-99 :40 HEPATIC FUNCTION PANEL (15016) Comments: PATIENT WAS FASTINGPERFORMED BY: LabCoBayonne Medical CenterQvizax5739 [facility] [id number] Bilirubin, Direct 0.10 mg/dL (Normal) Range: 0.00-0.40 :40 LIPID PANEL (85134) Comments: PATIENT WAS FASTINGPERFORMED BY: OrderlordBayonne Medical CenterYrzqxq5925 [facility] [id number] LDL Cholesterol Calc 121 mg/dL (Abnormal) Range: 0-99 LDL/HDL Ratio 2.5 {ratio_units} (Normal) Range: 0.0-3.2 VLDL Cholesterol Rocky 44 mg/dL (Abnormal) Range: 5-40 HDL Cholesterol 49 mg/dL (Normal) Comments: According to ATP-III Guidelines, HDL-C >59 mg/dL is considered anegative risk factor for CHD. Triglycerides 220 mg/dL (Abnormal) Range: 0-149 Cholesterol, Total 214 mg/dL (Abnormal) Range: 100-199 :40 Vitamin D Hydroxy (59676) Comments: PATIENT WAS FASTINGPERFORMED BY: OrderlordBayonne Medical CenterPpnmfa9732 [facility] [id number] Vitamin D, 25-Hydroxy 57.9 ng/mL (Normal) Range: 32.0-100.0 Comments: Recent studies consider the lower limit of 32.0 ng/mL to be athreshold for optimal health.Edson WRIGHT. J Nutr. 2004;135(2):317-22. :22 Comp. Metabolic Panel (14) Comments: PATIENT WAS FASTINGPERFORMED BY: OrderlordBayonne Medical CenterYxovzk6226 [facility] [id number] ALT (SGPT) 14 [iU]/L (Normal) Range: 0-40 [...] Panel (7) Comments: PATIENT WAS FASTINGPERFORMED BY: Triage70 [facility] ExperienceAt[facility] [id number] Bilirubin, Direct 0.10 mg/dL (Normal) Range: 0.00-0.40 :22 Lipid Panel With LDL/HDL Comments: PATIENT WAS FASTINGPERFORMED BY: Triage70 [facility] ExperienceAt[facility] [id number] Ratio LDL Cholesterol Calc 158 mg/dL (Abnormal) [...] ng/mL (Normal) Comments: PATIENT WAS FASTINGPERFORMED BY: [facility] MedicalAt[facility] [id number] :22 Range: 32.0-100.0 Comments: Recent studies consider the lower limit of 32.0 ng/mL to be athreshold for optimal health.Edson WRIGHT. J Nutr. 2004;135(2):317-22. 06-Jul-20098:40 BILAT SCRN DIGITAL & CAD Radiology Report See Note (Normal) Comments: Exam Number: [id number] DIGITAL BILATERAL MAMMOGRAM Digital oblique and craniocaudal [...] mammograms werealso examined with computer-aided detection software ([employer]í, Equiendo.). Reported By: ZBIGNIEW CARROLL :39 DEXA BONE DENSITY STUDY (HP) Radiology Report See Note (Normal) Comments: Exam Number: [id number] BONE DENSITOMETRY HISTORYOsteopenia. TECHNIQUE Bone densitometry of the lumbar spine and both hips is now beingperformed. The best criteria for evaluation of osteoporosis is theT-value, which represents the comparison of the patient's bone mass gorge expected peak bone mass. For most patients, the mean T-value of S5ofzvaht L4 is used to evaluate the lumbar [...] CLEVELAND CHAND M.D. :25 Vitamin D Hydroxy (92830) Comments: PATIENT NOT FASTINGPERFORMED BY: [employer] MedicalCoveroo [place] [id number] Vitamin D, 25-Hydroxy 39.8 ng/mL (Normal) Range: 32.0-100.0 Comments: Recent studies consider the lower limit of 32.0 ng/mL to be athreshold for optimal health.Edson WRIGHT. J Nutr. 2004;135(2):317-22. :25 HEPATIC FUNCTION PANEL Comments: PATIENT NOT FASTINGClinical Information: ADD DRAW FEE 188471 AND J0 5164 PERFORMED BY: [facility] [id number] (38214) Albumin, Serum 4.1 g/dL (Normal) Range: 3.6-4.8 Alkaline Phosphatase, S 78 [iU]/L (Normal) Range: 25-165 ALT (SGPT) 14 [iU]/L (Normal) Range: 0-40 AST (SGOT) 24 [iU]/L (Normal) Range: 0-40 Bilirubin, Direct 0.08 mg/dL (Normal) Range: 0.00-0.40 Bilirubin, Total 0.4 mg/dL (Normal) Range: 0.1-1.2 Protein, Total, Serum 6.8 g/dL (Normal) Range: 6.0-8.5 :25 LIPID PANEL (91098) Comments: PATIENT NOT FASTINGPERFORMED BY: [facility] [id number] Cholesterol, Total 307 mg/dL (Abnormal) Range: 100-199 HDL Cholesterol 45 mg/dL (Normal) Comments: According to ATP-III Guidelines, HDL-C >59 mg/dL is considered anegative risk factor for CHD. LDL Cholesterol Calc 224 mg/dL (Abnormal) Range: 0-99 LDL/HDL Ratio 5.0 {ratio_units} (Abnormal) Range: 0.0-3.2 Triglycerides 190 mg/dL (Abnormal) Range: 0-149 VLDL Cholesterol Rocky 38 mg/dL (Normal) Range: 5-40 71-Xoq-630087:13 METABOLIC PANEL, COMPREHENSIVE Comments: PATIENT WAS FASTINGClinical Information: ADD DRAW FEE AND [id number] PERFORMED BY: LabCoBay[facility] Medical CenterNzcrqv2273 [facility] [id number] (31004) A/G Ratio 1.6 (Normal) Range: 1.1-2.5 Albumin, [...] Sodium, Serum 145 mmol/L (Normal) Range: 135-145 66-Aqa-094547:13 TSH (35224) Comments: PATIENT WAS FASTINGPERFORMED BY: [employer] gdgt [facility] [id number] TSH 2.300 {uIU/mL} (Normal) Range: 0.450-4.500 23-Mru-504642:13 HEPATIC FUNCTION PANEL Comments: PATIENT WAS FASTINGPERFORMED BY: [employer] [facility] [id number] (18376) Bilirubin, Direct 0.11 mg/dL (Normal) Range: 0.00-0.40 64-Ods-861990:13 LIPID PANEL (51481) Comments: PATIENT WAS FASTINGPERFORMED BY: [employer] Nyswhh[address] [place] [address] [id number] Cholesterol, Total 303 mg/dL (Abnormal) Range: 100-199 HDL Cholesterol 54 mg/dL (Normal) Comments: According to ATP-III Guidelines, HDL-C >59 mg/dL is considered anegative risk factor for CHD. LDL Cholesterol Calc 218 mg/dL (Abnormal) Range: 0-99 LDL/HDL Ratio 4.0 {ratio_units} (Abnormal) Range: 0.0-3.2 Triglycerides 157 mg/dL (Abnormal) Range: 0-149 VLDL Cholesterol Rocky 31 mg/dL (Normal) Range: 5-40 51-Msd-80572:17 HEPATIC FUNCTION PANEL Comments: PATIENT WAS FASTINGClinical Information: ADD DRAW FEE [id number] ADD J 66047 PERFORMED BY: Single[employer] [id number] (40159) Albumin, Serum 4.3 g/dL (Normal) Range: 3.6-4.8 Alkaline Phosphatase, S 75 [iU]/L (Normal) Range: 25-165 ALT (SGPT) 18 [iU]/L (Normal) Range: 0-40 AST (SGOT) 32 [iU]/L (Normal) Range: 0-40 Bilirubin, Direct 0.13 mg/dL (Normal) Range: 0.00-0.40 Bilirubin, Total 0.6 mg/dL (Normal) Range: 0.1-1.2 Protein, Total, Serum 7.0 g/dL (Normal) Range: 6.0-8.5 :17 LIPID PANEL (31285) Comments: PATIENT WAS FASTINGPERFORMED BY: Vib[employer]nt Juammd8547 [facility] [id number] Cholesterol, Total 292 mg/dL (Abnormal) Range: 100-199 [...] Panel (14) Comments: PATIENT WAS FASTINGPERFORMED BY: [employer] Fcugwx9707 [facility] [id number] A/G Ratio 1.5 (Normal) Range: 1.1-2.5 Albumin, [...] Serum 86 mg/dL (Normal) Range: 65-99 If -Tongan >59 mL/min/1.73 Comments: Note: Persistent reduction for [...] Panel (7) Comments: PATIENT WAS FASTINGPERFORMED BY: [employer] LabCoi3 membraneJhflml8290 [facility] [id number] Bilirubin, Direct 0.11 mg/dL (Normal) Range: 0.00-0.40 :47 Lipid Panel With LDL/HDL Comments: PATIENT WAS FASTINGPERFORMED BY: [facility] Ihlmkp9179 [facility] [id number] Ratio Cholesterol, Total 325 mg/dL (Abnormal) Range: [...] Cholesterol Rocky 47 mg/dL (Abnormal) Range: 5-40 84-Jvi-17293:49 PELVIS WITH CONTRAST Radiology Report See Note (Normal) Comments: Exam Number: [id number] CT ABDOMEN WITHOUT AND WITH CONTRAST AND [...] or pelvis. Reported By: TITA FULLER M.D. 37-Nqb-38376:48 ABDOMEN W/WO CONTRAST Radiology Report See Note (Normal) Comments: Exam Number: [id number] CT ABDOMEN WITHOUT AND WITH CONTRAST AND [...] Report See Note (Normal) Comments: Exam Number: [id number] DIGITAL SCREENING MAMMOGRAMS WITH CAD COMPARISON STUDYAugus2006 [...] mammograms werealso examined with computer-aided detection software ([employer] Reported By: TITA FULLER M.D. :30 [...] Report See Note (Normal) Comments: Exam Number: [id number] THREE VIEWS OF THE LEFT INDEX FINGER [...] Reported By: JULIO BRANCH M.D. :53 RENUKA-D [id number] RENUKA-DIRECT 27 AU/mL (Normal) Range: 0-99 Comments: [...] {IU/mL} (Normal) Range: 0.0-13.9 Comments: Performed At: [address] [id number] :53 URIC 3.4 mg/dL (Normal) Range: 2.6-6.0 [...] Report See Note (Normal) Comments: Exam Number: [id number] CT SCAN OF ABDOMEN AND PELVIS HISTORYEnlarged pancreas. Following the oral administration of contrast, scans were obtainedthrough the pancreas at 2.5-mm intervals without intraven ous contrastenhancement. With the intravenous administration of 100 mL of Zsxsdn385, scans were obtained at 2.5-mm intervals through [...] [facility]. This wa s performed June [...] colonic diverticulosis. Reported By: CLEVELAND CHAND M.D. 44-Xvl-85847:08 PELVIS WITH CONTRAST Radiology Report See Note (Normal) Comments: Exam Number: [id number] CT SCAN OF ABDOMEN AND PELVIS HISTORYEnlarged pancreas. Following the oral administration of contrast, scans were obtainedthrough the pancreas at 2.5-mm intervals without intraven ous contrastenhancement. With the intravenous administration of 100 mL of Zbpubm217, scans were obtained at 2.5-mm intervals through [...] [facility] This wa s performed June [...] colonic diverticulosis. Reported By: CLEVELAND CHAND M.D. 72-Uxy-[id number] DEXA BONE DENSITY STUDY () Radiology Report See Note (Normal) Comments: Exam Number: [id number] BONE DENSITOMETRY HISTORYOsteopenia. TECHNIQUE Bone densitometry of [...] Reported By: CLEVELAND CHAND M.D. :46 TSH (12688) Comments: PATIENT NOT FASTINGClinical Information: ADD DRAW FEE [id number] ADD J0 3378 DIFFICULT DRAW PERFORMED BY: [facility] [facility] [id number] TSH 1.980 {uIU/mL} (Normal) Range: 0.350-5.500 :46 [...] 5-40 :02 Fecal Occult Blood , Office (98884) Comments: NEG Fecal Occult Blood , Office Negative (Normal) Comments: X3 :07 BILAT SCRN DIGITAL & CAD Radiology Report See Note (Normal) Comments: Exam Number: [id number] BILATERAL SCREENING DIGITAL MAMMOGRAPHY AND CAD. REASON [...] mammograms werealso examined with computer-aided detection software ([employer] Reported By: TITA FULLER :46 COMP METABOLIC [...] 4804 5.8 mg/dL (Abnormal) Range: 4.5-5.6 :46 PTH,[id number] PTH,Intact 19 pg/mL (Normal) Range: 12-65 Comments: Performed At: [address] [id number] :36 L/S SPINE,MIN 4 VIEWS Radiology Report See Note (Normal) Comments: Exam Number: [id number] LUMBAR SPINE, 5 VIEWS HISTORYLow back spine. [...] Report See Note (Normal) Comments: Exam Number: [id number] CT OF THE ABDOMEN WITH AND WITHOUT CONTRAST AND CT OF THE PELVIS WITHCONTRAST STATEMENTFollowup of pancreas and adrenal glands. COMPARISONAbdominal CT of June 18, 2006, and [facility] of March 22, 2006. [...] adrenal gland. Reported By: PRABHAKAR ROTH M.D. 72-Gan-37987:25 PELVIS WITH CONTRAST Radiology Report See Note (Normal) Comments: Exam Number: [id number] CT OF THE ABDOMEN WITH AND WITHOUT CONTRAST AND CT OF THE PELVIS WITHCONTRAST STATEMENTFollowup of pancreas and adrenal glands. COMPARISONAbdominal CT of June 18, 2006, and [facility] CT of March 22, 2006. [...] adrenal gland. Reported By: PRABHAKAR ROTH M.D. 55-Gqj-99033:57 COMP METABOLIC A/G 1.1 {RATIO} (Normal) Range: [...] VLDL 33 mg/dL (Normal) Range: 5-40 :57 PTH,[id number] PTH,Intact 16 pg/mL (Normal) Range: 12-65 Comments: Performed At: [address] [id number] :45 BMP BUN 10 mg/dL (Normal) Range: [...] Indication: Epigastric pain Epigastric pain : Reviewed [employer] Letter Indication: Epigastric pain Hypercholesterolemia : Cholesterol [...] unspecified iron deficiency anemia type : Reviewed [employer] Letter-- colonoscopy 04/19-pelon Indication: Iron deficiency anemia, [...] Female Indication: Acute sinusitis Planned Observations CALCIFIDIOL (20338) VIT D 25Indication: Vitamin D deficiency, unspecified On: :57 Request TSH ([id number])Indication: Abnormal glucose tolerance test (Renamed from Abnormal glucose tolerance test (GTT)) On: :57 Request URINALYSIS, W/ MICRO ([id number])Indication: Abnormal glucose tolerance test (Renamed from Abnormal glucose tolerance test (GTT)) On: :57 Request MICROALBUMIN: CREATININE RATIO ([id number]) AND ([id number])Indication: Abnormal glucose tolerance test (Renamed from Abnormal glucose tolerance test (GTT)) On: :57 Request METABOLIC PANEL, COMPREHENSIVE ([id number])Indication: Abnormal glucose tolerance test (Renamed from Abnormal glucose tolerance test (GTT)) On: :57 Request LIPOPROTEIN, BLD, BY NMR ([id number])Indication: Hypercholesterolemia On: :57 Request CBC, PLATELETS & AUT DIFF (65614)Indication: Iron deficiency anemia, unspecified iron deficiency anemia type On: :57 Request VITAMIN B-12 (CYANOCOBALAMIN) (21220)Indication: Other dietary vitamin B12 deficiency anemia On: :56 Request IRON BINDING CAPACITY (TIBC) (74002)Indication: Iron deficiency anemia, unspecified iron deficiency anemia type On: :56 Request IRON (96832)Indication: Iron deficiency anemia, unspecified iron deficiency anemia type On: 6-Szz-581149:56 Request FERRITIN ([id number])Indication: Iron deficiency anemia, unspecified iron deficiency anemia type On: 9-Dol-322180:56 Request Lipid Panel (77078)Indication: Hypercholesterolemia On: 37-Kmg-077166:39 Request MICROALBUMIN: CREATININE RATIO (73371) AND (64012)Indication: Abnormal glucose tolerance test (Renamed from Abnormal glucose tolerance test (GTT)) On: 7-Asw-285059:03 Request URINALYSIS (75875)Indication: Abnormal glucose tolerance test (Renamed from Abnormal glucose tolerance test (GTT)) On: 7-Sgf-240712:03 Request EDGVI-DGHPHYAQYAC-MKHIF (57564)Indication: Hyperlipidemia, mixed On: 7-Pox-391144:16 Request CALCIFEDIOL (20776)Indication: Vitamin D deficiency, unspecified On: 1-Jcq-062738: Request IRON ([id number])Indication: Iron deficiency anemia, unspecified iron deficiency anemia type On: 34-Zii-018580:20 Request IRON ([id number])Indication: Anemia, unspecified On: 47-Puk-488913:48 Request Urine Protein Electrophoresis (UPEP) (06092)Indication: Elevated serum globulin level On: 33-Ljc-338655:48 Request MICROALBUMIN: CREATININE RATIO (99112) AND (74695)Indication: Hypercholesterolemia On: :14 Request Comments: 09/19 VITAMIN B12 AND FOLATES (93734)Indication: Hypercholesterolemia On: :14 Request Comments: 09/19 CALCIFEDIOL (60997)Indication: Hypercholesterolemia On: :14 Request Comments: 09/19 TSH (THYROID STIMULATING HORMONE) (41266)Indication: Hypercholesterolemia On: :14 Request Comments: 09/19 METABOLIC PANEL, COMPREHENSIVE (42766)Indication: Hypercholesterolemia On: :14 Request Comments: 09/19 CBC, PLATELETS & AUT DIFF (02410)Indication: Hypercholesterolemia On: :14 Request Comments: 09/19 LIPID PANEL (92092)Indication: Hypercholesterolemia On: :14 Request Comments: 09/19 LIPID PANEL (96847)Indication: Hypercholesterolemia On: :13 Request Comments: 06/18 METABOLIC PANEL, COMPREHENSIVE (04035)Indication: Hypercholesterolemia On: 97-Avz-662113:13 Request Comments: 06/18 LIPASE (07809)Indication: Vitamin D deficiency, unspecified On: : Request Vitamin D Hydroxy (80598)Indication: Vitamin D deficiency, unspecified On: : Request METABOLIC PANEL, COMPREHENSIVE (29517)Indication: Fatty liver On: :00 Request LIPID PANEL (21909)Indication: Hypercholesterolemia On: :00 Request LIPID PANEL (32695)Indication: Hypercholesterolemia On: :33 Request METABOLIC PANEL, COMPREHENSIVE (60901)Indication: Hypercalcemia On: :33 Request Vitamin D Hydroxy (85894)Indication: Vitamin D deficiency, unspecified On: :33 Request LIPASE (06438)Indication: Abnormal blood finding On: :28 Request AMYLASE (89938)Indication: Abnormal blood finding On: :28 Request URINE MAHENDRA CULTURE-IDENTIFICATN (44054)Indication: Urinary tract infection On: 1-Bom-913742:11 Request Comments: repeat after finishing atb LIPID PANEL (57816)Indication: Hypercholesterolemia On: :43 Request CALCIUM SERUM (48218)Indication: Hypercalcemia On: :03 Request Vitamin D Hydroxy (69694)Indication: Hypercalcemia On: :03 Request Vitamin D Hydroxy (23277)Indication: Vitamin D deficiency, unspecified On: :28 Request CBC WITH MANUAL DIFF (68476)Indication: Anemia, unspecified On: :27 Request LIPID PANEL (43062)Indication: Hypercholesterolemia On: :27 Request METABOLIC PANEL, COMPREHENSIVE (79305)Indication: Hypercalcemia On: : Request OVA & PARASITE DIR SMEAR (82657)Indication: Diarrhea On: :50 Request OCCULT BLOOD FECES SCREEN (11936)Indication: Diarrhea On: :50 Request LEUKOCYTE COUNT, FECAL (28915)Indication: Diarrhea On: 32-Lnh-870162:50 Request C-DIFFICILE, STOOL (25369)Indication: Diarrhea On: 29-Ljf-108541:50 Request MAHENDRA CULTURE-STOOL (96774)Indication: Diarrhea On: 38-Lmh-699513:50 Request IRON ([id number])Indication: Anemia, unspecified On: 36-Zyu-099691:25 Request Vitamin D Hydroxy (67597)Indication: Osteopenia On: :25 Request METABOLIC PANEL, COMPREHENSIVE (54164)Indication: Gastritis, acute On: :25 Request LIPID PANEL (41451)Indication: Hypercholesterolemia On: :25 Request Vitamin D Hydroxy (58402)Indication: Vitamin D deficiency, unspecified On: 15-Tra-718440:13 Request HEPATIC FUNCTION PANEL (76565)Indication: Hypercholesterolemia On: :13 Request LIPID PANEL ([id number])Indication: Hypercholesterolemia On: :13 Request HEPATIC FUNCTION PANEL (92348)Indication: Hypercholesterolemia On: :31 Request LIPID PANEL ([id number])Indication: Hypercholesterolemia On: :31 Request METABOLIC PANEL, COMPREHENSIVE (57185)Indication: Hypercalcemia On: 70-Mkr-70152:16 Request HEPATIC FUNCTION PANEL (66076)Indication: Hypercholesterolemia On: :16 Request LIPID PANEL (62031)Indication: Hypercholesterolemia On: :16 Request CBC WITH MANUAL DIFF (16802)Indication: Hypercalcemia On: :20 Request TSH (10860)Indication: Hypercalcemia On: :20 Request METABOLIC PANEL, COMPREHENSIVE (33566)Indication: Hypercalcemia On: :20 Request HEPATIC FUNCTION PANEL (85105)Indication: Hypercholesterolemia On: :19 Request LIPID PANEL (70781)Indication: Hypercholesterolemia On: :19 Request Uric Acid Blood (71724)Indication: arthritis left first digit On: :53 Request SED RATE ERYTHROCYTE (47724)Indication: arthritis left first digit On: 98-Sxx-84489:53 Request C-REACTIVE PROTEIN ([id number])Indication: arthritis left first digit On: :53 Request RHEUMATOID FACTOR-QUANT (26899)Indication: arthritis left first digit On: 11-Kvf-71221:53 Request RENUKA (ANTINUCLEAR ANTIBODY) (26240)Indication: arthritis left first digit On: :53 Request LIPID PANEL (29642)Indication: Hypercholesterolemia On: :06 Request HEPATIC FUNCTION PANEL (40360)Indication: Hypercholesterolemia On: :06 Request METABOLIC PANEL, COMPREHENSIVE (81788)Indication: Hypercalcemia On: 19-Ckk-331447:37 Request HEPATIC FUNCTION PANEL (33827)Indication: Hypercholesterolemia On: 27-Taj-935286:37 Request LIPID PANEL (09332)Indication: Hypercholesterolemia On: :37 Request METABOLIC PANEL, COMPREHENSIVE (89573)Indication: Hypercalcemia On: :40 Request HEPATIC FUNCTION PANEL (53479)Indication: Hypercholesterolemia On: :40 Request LIPID PANEL (36512)Indication: Hypercholesterolemia On: :40 Request METABOLIC PANEL, COMPREHENSIVE (47246)Indication: Hypercalcemia On: 66-Wps-731915:08 Request HEPATIC FUNCTION PANEL (10323)Indication: Hypercholesterolemia On: 93-Xhi-005803:07 Request LIPID PANEL (59720)Indication: Hypercholesterolemia On: 55-Wif-465144:07 Request HEPATIC FUNCTION PANEL (05271)Indication: Hypercholesterolemia On: :58 Request Comments: 3 mos LIPID PANEL (69342)Indication: Hypercholesterolemia On: 97-Zjg-729584:58 Request Planned Encounters Medical; 4 Month FU - On: 04-Nov-2018 8:30 [facility] Camryn Faith DO, DO, Kathleen Planned Procedures B 12 Injection, 1000 mcg (J3420)By: On: 05-Jul-2018 Intent Camryn Faith DO, DO, Comments: 1 ml given lt dltd lot [id number] exp 12/21 Camryn DEXA SCAN AXIAL SKELETON (11631)By: On: 24-Apr-2018 Intent Camryn Faith DO, DO, Kathleen ABDOMINAL ULTRASOUND, LIMITED On: 10-Apr-2018 Intent (81412)By: Camryn Faith DO, DO, Kathleen ELECTROCARDIOGRAM, COMPLETE (ECG) On: 10-Apr-2018 Intent (15864)By: Camryn Faith DO Comments: nsr no acute chg Camryn Faith DO Nuclear Stress Test/Stress On: 10-Apr-2018 Intent SPECT/TreadmillBy: Camryn Faith DO, DO, Kathleen Echo CompleteBy: Marcell YEE, On: 10-Apr-2018 Intent Camryn Dykes DO ELECTROCARDIOGRAM, COMPLETE (ECG) On: 05-Dec-2017 Intent (92788)By: Camryn Faith DO Comments: nsr no acute chg Camryn Faith DO DEXA SCAN AXIAL SKELETON (03556)By: On: 05-Dec-2017 Intent Camryn Faith DO, DO, Kathleen US DOPPLER CAROTID BILATERAL On: 05-Dec-2017 Intent (19495)By: Camryn Faith DO, DO, Kathleen ELECTROCARDIOGRAM, COMPLETE (ECG) On: 03-Aug-2017 Intent (83439)By: Camryn Faith DO Comments: nsr no acute chg Camryn Faith DO US DOPPLER CAROTID BILATERAL On: 03-Aug-2017 Intent (48913)By: Camryn Faith DO, DO, Kathleen Flu Vaccine (Quadrivalent) 93240Wh: On: 11-Jun-2017 Intent Camryn Faith DO, DO, Comments: QUAD flu shotlot number: [id number]: 12/2017L Deltoid IMAD FUSE CUP EXPANDER Camryn B 12 Injection, 1000 mcg (J3420)By: On: 03-May-2017 Intent Camryn Faith DO, DO, Comments: 1 ml given rt arm lot [id number] exp 10/22 Camryn MAMMOGRAM, BOTH SIDES (36380)By: On: 05-Dec-2016 Intent Camryn Faith DO, DO, Comments: due after 02/14/17 Camryn Ultrasound - Abdomen Complete & On: 26-Apr-2016 Intent PelvisBy: Royal Perea MD DEXA SCAN AXIAL SKELETON (71091)By: On: 25-Jan-2016 Intent Kylie Haywood DO MAMMOGRAM, SCREENING, BOTH BREAST On: 25-Jan-2016 Intent (93359)By: Kylie Haywood DO Cartoid DopplerBy: Yobany YEE Kylie A On: 25-Jan-2016 Intent Radiology - Lumbar SpineBy: Fast On: 22-Oct-[address] - Abdomen (IV Contrast On: 22-Oct-2015 Intent Needed)By: Kylie Haywood DO Flu Vaccine (Quadrivalent) 63681Ty: On: 25-Jun-2015 Intent Itzel Boucher LPN Comments: Lot #Lot #[id number]-L dltd, IMDose prefilled syringeVIS and ABN signedgiven by:DERRICK mahmood MAMMOGRAM, SCREENING, BOTH BREAST On: 09-Feb-2015 Intent (69917)By: Kylie Haywood DO Cartoid DopplerBy: Kylie Haywood DO On: 09-Feb-2015 Intent IMMUNIZ ADMNIN, 1 VAC, SNGL/COMBO On: 25-Jun-2014 Intent (63431)By: Magdalena Leroy ZOSTER VACC, [place] (37949)By: Mariaa, On: 25-Jun-2014 Intent Magdalena EKG (31184)By: Kylie Haywood DO On: 19-May-2014 Intent Comments: ekg showed normal sinus rhythym, normal axis, no acute st/t wave changes MAMMOGRAM, SCREENING, BOTH BREASTS On: 06-Jan-2014 Intent (69377)By: Kylie Haywood DO Eprescribed prescriptions On: 06-Jan-2014 Intent (G8553)By: Kylie Haywood DO Snkiojaew-Gzo-Ngqn (17712)By: Yobany On: 14-Oct-2013 Intent Kylie YEE Pelvic and Breast, Medicare On: 14-Oct-2013 Intent (G0101)By: Kylie Haywood DO A Eprescribed prescriptions On: 08-Sep-2013 Intent (G8553)By: Magdalena Leroy ADMINISTRATION OF INFLUENZA VIRUS On: 09-Jun-2013 Intent VACCINE (G0008)By: Kim MEZA, Comments: Lot:[id number]:0.5mLSite: L Dltd, IMGiven by: DERRICK SilvermanVIS signed Shayla FLU VAC, SPLIT, >3 YEARS, INTRAMUSC On: 09-Jun-2013 Intent (42712)By: Shayla Alvarez LPN Spirometry (47761)By: Mariaa, On: 13-May-2013 Intent Magdalena Comments: good effort and curve normal EKG (00222)By: Kylie Haywood DO On: 13-May-2013 Intent Comments: ekg showed normal sinus rhythym, normal axis, no acute st/t wave changes DXA, BONE DENSITY, AXIAL SKELETON On: 13-May-2013 Intent (53704)By: Kylie Haywood DO Comments: alexus Eprescribed prescriptions On: 13-May-2013 Intent (G8553)By: Magdalena Leroy Eprescribed prescriptions On: 25-Apr-2013 Intent (G8553)By: Alicia Shaffer Ultrasound - Abdomen Complete & On: 22-Apr-2013 Intent PelvisBy: Purnima VALLE, Merle Eprescribed prescriptions On: 22-Apr-2013 Intent (G8553)By: Alicia Shaffer PNEUM VAC ADLT/IMUMNOSPR, SBC/INTRM On: 10-Jan-2013 Intent (06179)By: Kyile Haywood DO Comments: lot: [id number]: 03/06/14site/route: L deltoid/IMamt: 0.5mlVIS signed when applicable: OSCAR Liu ADMINISTRATION OF PNEUMOCOCCAL On: 10-Jan-2013 Intent VACCINE (G0009)By: Kylie Haywood DO Ultrasound - Abdomen CompleteBy: On: 16-Dec-[address] - AbdomenBy: Kylie Haywood DO On: 13-Dec-2012 Intent MAMMOGRAM, SCREENING, BOTH BREASTS On: 13-Dec-2012 Intent (23086)By: Kylie Haywood DO EKG (63972)By: Magdalena Leroy On: 06-Feb-2012 Intent Comments: ekg showed normal sinus rhythym, normal axis, no acute st/t wave changes TDAP VACCINE >7 IM (88053)By: Yobany On: 04-Jul-2011 Intent Kylie YEE Comments: Lot #[id number] arm, IMSite- Dose prefilledgiven by:Ale DXA, BONE DENSITY, AXIAL SKELETON On: 04-Jul-2011 Intent (09552)By: Kylie Haywood DO Spirometry (65283)By: Yobany YEE, On: 13-Jun-2011 Intent Kylie Farris Comments: good effort and curv enormal Ijrufhgrt-Jlg-Dylmn (38076)By: Yobany On: 13-Jun-2011 Intent Kylie YEE Radiology - Chest- PA and LatBy: On: 13-Jun-2011 Intent Kylie Haywood DO MAMMOGRAM, SCREENING, BOTH BREASTS On: 13-Jun-2011 Intent (74377)By: Kylie Haywood DO Comments: nov Cartoid DopplerBy: Kylie Haywood DO On: 13-Jun-2011 Intent FLU VAC, SPLIT, >3 YEARS, INTRAMUSC On: 13-Jun-2011 Intent (05726)By: Magdalena Leroy Comments: Lot #:[id number] date:03/02/12Amount given:0.5mlRoute: IMSite given:left deltGiven by: PARIS Silver TD Injection , IM (70801)By: On: 13-Jun-2011 Intent Magdalena Leroy Comments: received in 1999 ADMINISTRATION OF INFLUENZA VIRUS On: 13-Jun-2011 Intent VACCINE (G0008)By: Magdalena Leroy CT - Brain/HeadBy: Kylie Haywood DO On: 19-Apr-2011 Intent Comments: stat call wet read EKG (32415)By: Magdalena Leroy On: 01-Nov-2010 Intent Comments: ekg showed normal sinus rhythym, normal axis, no acute st/t wave changes FLU VAC, SPLIT, >3 YEARS, INTRAMUSC On: 17-Jun-2010 Intent (69815)By: Magdalena Leroy Comments: Lot #: [id number] date: mount given: 0.5 mlRoute: IMSite given: left deltoidGiven by: Brenton Castillo RN MAMMOGRAM, SCREENING, BOTH BREASTS On: 17-Jun-2010 Intent (05747)By: Kylie Haywood DO ADMINISTRATION OF INFLUENZA VIRUS On: 17-Jun-2010 Intent VACCINE (G0008)By: Magdalena Leroy EKG (82768)By: Magdalena Leroy On: 27-Jul-2009 Intent Comments: ekg showed normal sinus rhythym, normal axis, no acute st/t wave changes MAMMOGRAM, SCREENING, BOTH BREASTS On: 27-Apr-2009 Intent (45030)By: Kylie Haywood DO A DXA, BONE DENSITY, AXIAL SKELETON On: 27-Apr-2009 Intent (62680)By: Se Haywood DOa A Comments: oct Nerve ConductionBy: Se Haywood DOa On: 23-Oct-2008 Intent A Comments: upper ext EMGBy: Se Haywood DOa A On: 23-Oct-2008 Intent Comments: upper ext CT - Abdomen & PelvisBy: Yobany YEE, On: 23-Jun-2008 Intent Kylie A FLU VAC, SPLIT, >3 YEARS, INTRAMUSC On: 23-Jun-2008 Intent (21429)By: Magdalena Leroy IMMUNIZ ADMNIN, 1 VAC, SNGL/COMBO On: 23-Jun-2008 Intent (75727)By: Magdalena Leroy EKG (71402)By: Magdalena Leroy On: 23-Jun-2008 Intent Comments: ekg showed normal sinus rhythym, normal axis, no acute st/t wave changes EKG (84303)By: Kyile Haywood DO A On: 25-Jun-2007 Intent Comments: ekg showed normal sinus rhythym, normal axis, no acute st/t wave changes CT - Abdomen & PelvisBy: Yobany YEE, On: 25-Jun-2007 Intent Kylie A DXA, BONE DENSITY, AXIAL SKELETON On: 25-Jun-2007 Intent (11799)By: Kylie Haywood DO A IMMUNIZ ADMNIN, 1 VAC, SNGL/COMBO On: 25-Jun-2007 Intent (92040)By: Se Haywood DOa A FLU VAC, SPLIT, >3 YEARS, INTRAMUSC On: 25-Jun-2007 Intent (14659)By: Se Haywood DOa A Comments: given in left deltoid, 0.5cc, lot#[id number], exp.03.02.08 WF Pneumovax (74524)By: Yobany YEE, On: 25-Jun-2007 Intent Kylie A Comments: given in right deltoid, 0.5cc, lot#[id number], exp.07.14.08 WF EKG (28757)By: Magdalena Leroy On: 25-Mar-2007 Intent Comments: ekg [...] The patient does have durable power of estate attorney and living will. The patient has [...] The patient does have durable power of estate attorney and living will. The patient has [...] The patient does have durable power of estate attorney and living will. The patient has noticed nothing from the geriatic de pression scale. Other providers contributing to the patient's care are gastrologist and satellite tv technician installer., [ADDITIONAL REASON] Well Women Exam - The [...] up she is exercising and joined the [email or web address] [facility]- she is working on diet too- [...] compliant with instructions. Current medication use: no dnailo End: 26-Oct-2009 9:55 e effects and compliant [...] Patient has been compliant with instructions. 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
--- OUTSIDE RECORDS SUMMARY | 2018-09-29 08:26 | XMS RPT_ITS | Continuity of Care Document ---
:1945 Author Organization [facility] Address [facility] 2 [place] [address] Phone Care Team Providers Name Role Phone [...] : 18-Sep-2006 End : 01-Oct-2006 Discontinued ZOSTAVAX, 68515OBJ/0.65ML (Subcutaneous Solution Reconstituted) 1 (one) For Solution [...] with discont sympthomo from running out of cymetraTecta Status: Inactive as of 05-Dec-2017 Other specified [...] Visit Report Result: Comments: See Note; NOTES: [facility] [address] [place] [address] OFFICE VISIT Date of Service: 06/24/18 MR#: [id number] Acct: [id number] Name: BRANDIE KUO Rep #: [id number] : 1945 Provider: Rylan Bird MD Age/Sex: 73/F Location: [facility] Status: Signed Intake Vital Signs06/24/18 Height 5 ft 1.5 in 06/24/18 Weight: 149 lb Intake Visit Re asons: To discuss test results Chief Complaint: gerd, need for colonoscopy Lawn Caretaker Required: No Is patient in pain?: No Allergies erythromycin base Allergy (Verified 06/24/18 07:52) Rash ibuprofen [From Motrin] Allergy (Verified 06/24/18 07:52) Rash dicyclomine HCl [From Bentyl] Adverse Reaction (Verified 06/24/18 07:52) Nausea nitrofurantoin Adverse Reaction (Verified 06/24/18 07:52) Nausea Sul fa (Sulfonamide Antibiotics) Adverse Reaction (Verified 06/24/18 07:52) Nausea Medications traMADol [Ultram] 100 mg PO BID 09/30/13 [History Confirmed 06/24/18] Bergamot [[place]ay Bergamot] 02/12/17 [H istory Confirmed 06/24/18] Cyanocobalamin [...] (Acute) Arthritis (Acute) Constipation (Acute) Diabetes (Ac [place]) Diverticula of colon (Acute) GERD (gastroesophageal reflux [...] right upper quadrant ultrasound performed at the [facility] Fatty infiltration of the liver. Mild right hydronephrosis. No stones identified. Evidence of previous cholec ystectomy. April 30, 2018 contrast upper GI examination performed at the [facility] Normal findings May 08, 2018 CT scan abdomen and pelvis performed at the [facility] pital. 3 nonobstructing right renal collecting [...] hagia R13.10 Plan Today was a 20-minute hssx-hz-widh consultative appointment. I reviewed all of the [...] Emptying Study Result: Comments: See Note; NOTES: [facility] Imaging Services [address] [place] [address] Gastric Emptying Study MR#: [id number] Acct: [id number] Name: BRANDIE KUO Rep #: [id number] : 1945 F 73 From: Carson Thacker DO PCP: Camryn Faith DO Status: REG CLI Study: Gastric Emptying Study Date of Exam: 05/31/18 Exam# [id number] Ordering Dr: Kay Sanchez PA-C CLINICAL : [...] CC: Kay Sanchez PA-C; Camryn Faith DO Communications Electrician Supervisor: Signed 28-May-2018 Surgery Visit Report Result: Comments: See Note; NOTES: [facility] [address] [facility] [place] [address] OFFICE VISIT Date of Service: 05/28/18 MR#: [id number] Acct: [id number] Name: ADITHYA KUORA Beckman Rep #: [id number] : 1945 Provider: Rylan Bird MD Age/Sex: 73/F Location: [facility] Status: Signed Intake Intake Visit Reasons: [...] BI D 09/30/13 [History Confirmed 04/25/18] Bergamot [N[place]ay Bergamot] 02/12/17 [History Confirmed 04/25/18] Cyanocobalamin (Vitamin [...] Esophagitis presence: esophagitis presence not specified 05/28/18 4042 <Electronically signed by Rylan Bird MD> Date Rylan Bird MD Cosigner Signature: Date (if applicable) CC: Camryn Faith DO 23-May-2018 Dexa Bone Density Study Result: Comments: See Note; NOTES: [facility] Imaging Services [address] [place] [address] Dexa Bone Density Study MR#: [id number] Acct: [id number] Name: BRANDIE KUO Rep #: [id number] : 1945 F 73 From: Zbigniew Carroll MD PCP: Camryn Faith DO Status: REG CLI Study: Dexa Bone Density Study Date of Exam: 05/23/18 Exam# [id number] Ordering Dr: Camryn Faith DO UDY: DUAL [...] Zbigniew Carroll MD at 8:17 EDT Tel [phone], Service support , CC: Camryn Faith DO Communications Electrician Supervisor: Signed 22-May-2018 Operative Report - Endoscopy Result: Comments: See Note; NOTES: [facility] Medical Records Department [address] [place] [address] Progress Note - Endoscopy 05/21/18 0647 MR#: [id number] Acct: [id number] Name: BRANDIE LOGAN Rep #: [id number] : 1945 73 From: Rylan Bird MD [...] 1 week. Procedure Code(s): --- Professional --- 91111, Colonoscopy, flexible; with transendoscopic balloon dilation Diagn osis Code(s): --- Professional --- Z12.11, Encounter for screening for malignant neoplasm of colon K64.9, Unspecified hemorrhoids Z98.0, Intestinal bypass and anastomosis status K57.30, Diverticulosis o f large intestine without perforation or abscess without bleeding CPT copyright 2017 [employer]. All rights reserved. The codes documented in this report are preliminary and upon sales ledger clerk review may be revised to meet current [...] - Endoscopy Result: Comments: See Note; NOTES: [facility] Medical Records Department [address] [place] [address] Progress Note - Endoscopy 05/21/18646 MR#: [id number] Acct: [id number] Name: BRANDIE LOGAN Rep #: [id number] : 1945 73 From: Rylan Bird MD [...] 1 week. Procedure Code(s): --- Professional --- 85936, Colonoscopy, flexible; with transendoscopic balloon dilation Diagn osis Code(s): --- Professional --- Z12.11, Encounter for screening for malignant neoplasm of colon K64.9, Unspecified hemorrhoids Z98.0, Intestinal bypass and anastomosis status K57.30, Diverticulosis o f large intestine without perforation or abscess without bleeding CPT copyright 2017 [employer]. All rights reserved. The codes documented in this report are preliminary and upon sales ledger clerk review may be revised to meet current [...] - Endoscopy Result: Comments: See Note; NOTES: [facility] Medical Records Department [address] [place] [address] Progress Note - Endoscopy 05/21/18646 MR#: [id number] Acct: [id number] Name: BRANDIE LOGAN Rep #: [id number] : 1945 73 From: Eduardo Adams MD Patient Name: Brandie Kuo Procedure Date: 05/21/2018 6:47 AM Date of : 1945 Account Number: [id number] Age: 73 Procedure: Colonoscopy Indications: Screening for [...] specimens collected. Recommendation: - Discharge patient to [facility]. - Resume previous diet. - Continue present medications. - Return to my office in 1 week. Procedure Code(s): --- Professional --- 40615, Colonoscopy, flexible; with transendoscopic balloon dilation D iagnosis Code(s): --- Professional --- Z12.11, Encounter for screening for malignant neoplasm of colon K64.9, Unspecified hemorrhoids Z98.0, Intestinal bypass and anastomosis status K57.30, Diverticulos is of large intestine without perforation or abscess without bleeding CPT copyright 2017 [employer]. All rights reserved. The codes [...] - Endoscopy Result: Comments: See Note; NOTES: [facility] Medical Records Department [address] [place] [address] Progress Note - Endoscopy 05/21/18646 MR#: [id number] Acct: [id number] Name: BRANDIE LOGAN Rep #: [id number] : 1945 73 From: Eduardo Adams MD Patient Name: Brandie Kuo Procedure Date: 05/21/2018 6:47 AM Date of : 1945 Account Number: [id number] Age: 73 Procedure: Colonoscopy Indications: Screening for [...] specimens collected. Recommendation: - Discharge patient to [facility]. - Resume previous diet. - Continue present medications. - Return to my office in 1 week. Procedure Code(s): --- Professional --- 34440, Colonoscopy, flexible; with transendoscopic balloon dilation D iagnosis Code(s): --- Professional --- Z12.11, Encounter for screening for malignant neoplasm of colon K64.9, Unspecified hemorrhoids Z98.0, Intestinal bypass and anastomosis status K57.30, Diverticulos is of large intestine without perforation or abscess without bleeding CPT copyright 2017 [employer]. All rights reserved. The codes [...] - Endoscopy Result: Comments: See Note; NOTES: [facility] Medical Records Department [address] [place] [address] Progress Note - Endoscopy 05/21/18621 MR#: [id number] Acct: [id number] Name: BRANDIE LOGAN Rep #: [id number] : 1945 73 From: Eduardo Adams MD Patient Name: Brandie Kuo Procedure Date: 05/21/2018 6:22 AM Date of : 1945 Account Number: [id number] Age: 73 Procedure: Upper GI endoscopy Indications: [...] week. Procedure Code(s): --- P rofessional --- 44956, Esophagogastroduodenoscopy, flexible, transoral; with biopsy, single or multiple Diagnosis Code(s): --- Professional --- K21.0, Gastro- esophageal reflux disease with esophagitis K 44.9, Diaphragmatic hernia without obstruction or gangrene K29.50, Unspecified chronic gastritis without bleeding CPT copyright 2017 [employer]. All rights reserved. The codes document ed in this report are preliminary and upon sales ledger clerk review may be revised to meet current [...] without Cont Result: Comments: See Note; NOTES: [facility] Imaging Services [address] [place] [address] Abdomen/Pelvis without Cont MR#: [id number] Acct: [id number] Name: BRANDIE KUO Rep #: [id number] : 1945 F 72 From: Kenneth Hunter MD PCP: Camryn Faith DO Status: REG CLI Study: Abdomen/Pelvis without Cont Date of Exam: 05/08/18 Exam# [id number] Ordering Dr: Pino Jang MD STUDY: CT [...] CC: Pino Jang MD; Camryn Faith DO Communications Electrician Supervisor: Signed 30-Apr-2018 Upper GI w/BA Swallow Result: Comments: See Note; NOTES: [facility] Imaging Services [address] [place] [address] Upper GI w/BA Swallow MR#: [id number] Acct: [id number] Name: BRANDIE KUO Rep #: [id number] : 1945 F 72 From: Zbigniew Carroll MD PCP: Camryn Faith DO Status: REG CLI Study: Upper GI w/BA Swallow Date of Exam: 04/30/18 Exam# [id number] Ordering Dr: Rylan Bird MD STUDY: AIR-CONTRAST [...] Zbigniew Carroll MD at 15:59 EDT Tel [phone], Service support , CC: Camryn Faith DO; Rylan Bird MD Communications Electrician Supervisor: Signed 25-Apr-2018 Surgery Visit Report Result: Comments: See Note; NOTES: [facility] [address] [place] [address] OFFICE VISIT Date of Service: 04/25/18 MR#: [id number] Acct: [id number] Name: BRANDIE KUO Rep #: [id number] : 1945 Provider: Rylan Bird MD Age/Sex: 72/F Location: [facility] Status: Signed Intake Vital Signs04/25/18 Height 5 ft 1 in 04/25/18 Weight: 149 lb 5 oz 04/25/18 Body Mass Index (BMI) 28.2 04/25/18 Blood Pressure 166/75 Intake Visit Reasons: Acid Reflux Chief Complaint: gerd, need for colonoscopy Lawn Caretaker Required: No Is patient in pain?: No Allergies erythrom ycin base Allergy (Verified 04/25/18 08:41) Rash ibuprofen [From Motrin] Allergy (Verified 04/25/18 08:41) Rash dicyclomine HCl [From Bentyl] Adverse Reaction (Verified 04/25/18 08:41) Nausea nitrofuran toin Adverse Reaction (Verified 04/25/18 08:41) Nausea Sulfa (Sulfonamide Antibiotics) Adverse Reaction (Verified 04/25/18 08:41) Nausea Medications traMADol [Ultram] 100 mg PO BID 09/30/13 [History Confirmed 04/25/18] Bergamot [[place]ott[place]ay Bergamot] 02/12/17 [History Confirmed 04/25/18] Cyanocobalamin (Vitamin [...] Stress Report Result: Comments: See Note; NOTES: [facility] Cardiovascular Services [address] [place] [address] MR#: [id number] Acct: [id number] Name: BRANDIE KUO Rep #: [id number] : [birth year] 72 From: Julio Cote MD [...] 86 %. This note was generated with [employer] dictation software. It may contain incorrect words, spelling, and punctuation that were not noted in checking the note before signing. 04/16/181713 <Electronically signed by Julio savage MD> Date Julio Cote MD CC: Camryn Faith DO Date Dictated: 04/16/181708 Date Transcribed: 04/16/181708 Communications Electrician Supervisor: PM Signed 16-Apr-2018 Echocardiogram Complete Result: Comments: See Note; NOTES: [facility] Cardiovascular Services [address] [place] [address] Echo Complete 04/16/18843 MR#: [id number] Acct: [id number] Name: BRANDIE KUO ep #: [id number] : 1945 72 From: Julio Cote MD [...] Dictated: 04/16/18 0844 Date Transcribed: 04/16/18 1559 Communications Electrician Supervisor: Signed 16-Apr-2018 Abdomen Limited Result: Comments: See Note; NOTES: [facility] Imaging Services [address] [place] [address] Abdomen Limited MR#: [id number] Acct: [id number] Name: BRANDIE KUO Rep #: [id number] : 1945 F 72 From: Bairon Fernandez MD PCP: Camryn Faith DO Status: REG CLI Study: Abdomen Limited Date of Exam: 04/16/18 Exam# [id number] Ordering Dr: Camryn Faith DO STUDY: ABDOMINAL [...] Service support , CC: Camryn Faith DO Communications Electrician Supervisor: Signed 01-Feb-2018 Breast Limited Unilateral Result: Comments: See Note; NOTES: [facility] Imaging Services [address] [facility] [place] [address] Breast Limited Unilateral MR#: [id number] Acct: [id number] Name: BRANDIE KUO Rep #: [id number] : 1945 F 72 From: Zbigniew Carroll MD PCP: Camryn Faith DO Status: REG CLI Study: Breast Limited Unilateral Date of Exam: 02/01/18 Exam# [id number] Ordering Dr: Evelyn Patel WEATHERIZATION DIRECTOR-Sara STUDY: ULTRASOUND BREAST - RIGHT REASON FOR [...] Zbigniew Carroll MD at 15:46 EDT Tel [phone], Service support , CC: CHIQUIS Patel; Camryn Faith DO Communications Electrician Supervisor: Signed 01-Feb-2018 DIAG MAMM W/CAD, BILAT Result: Comments: See Note; NOTES: [facility] Imaging Services [address] [place] [address] DIAG MAMM W/CAD, BILAT MR#: [id number] Acct: [id number] Name: BRANDIE KUO Rep #: [id number] : 1945 F 72 From: Zbigniew Carroll MD PCP: Camryn Faith DO Status: [facility] CL Study: DIAG MAMM W/CAD, BILAT Date of Exam: 02/01/18 Exam# [id number] Ordering Dr: Evelyn Patel WEATHERIZATION DIRECTOR-C WAGNER MOGRAPHY - BILATERAL DIAGNOSTIC REASON FOR [...] Zbigniew Carroll MD at 15:36 EDT Tel [phone], Service support , CC: CHIQUIS Patel; Camryn Faith DO Communications Electrician Supervisor: Signed 29-Jan-2018 Web Retailer Office Visit Report Result: Comments: See Note; NOTES: [facility] [address] [place] [address] OFFICE VISIT Date of Service: 01/29/18 MR#: [id number] Acct: [id number] Name: ADITHYA KUO RA Rep #: [id number] : 1945 Provider: CHIQUIS Patel Age/Sex: 72/F Location: [facility] Status: Signed Intake Vital Signs01/29/18 Height 5 ft 1 in 01/29/18 Weight: 147 lb 6 oz 01/29/18 Body M ass Index (BMI) 27.8 01/29/18 Blood Pressure 131/74 Intake Visit Reasons: WELLNESS CHECK Chief Complaint: est annual Lawn Caretaker Required: No Is patient in pain?: Yes [...] BID 09/30/13 [History Confirmed 01/02 05/21] Bergamot [[place]ay Bergamot] 02/12/17 [History Confirmed 01/29/18] Cyanocobalamin (Vitamin [...] abortions Past Pregnancies Del. DatName GA/WeeksOutcome Route [facility] LocaProviderFOB e ht en tn [...] alert, oriented to person, oriented to place HENMO Head: normal to inspection Neck Neck: normal [...] records, she thought was done at [facility]. Will check [facility] records also. RTO 1 year, prn with problems Evelyn Patel BEVERAGE MANAGER Orders Orders: Medications New : Coding [...] Duplex Ultrasound Result: Comments: See Note; NOTES: [facility] Cardiovascular Services [address] [place] [address] Carotid Duplex Ultrasound 12/25/17 1043 MR#: [id number] Acct: [id number] Name: JANET KitBRANDIE K Rep #: [id number] : 1945 72 From: Ej Ortiz MD Attending Dr: Camryn Faith DO Status: REG CLI Ordering Dr: Camryn Faith DO Date: 12/25/17 Location: [facility] Sex: F C Admitted: Reason For Study: [...] the left vertebral artery. Procedure Carotid Duplex 34274. Exam performed in [facility]. Interpretation Summary Mild (<50%) stenosis right extracranial internal carotid. Mild (<50%) stenosis left extracranial internal carotid. Flow within the vertebral arteries is antegrade bilaterally. Ordering Physician: Camryn Faith Referring Physician: Mai Faith Performed By: Adelita Ramirez RVT 12/26/17823 Date Ej Ortiz MD CC: Rk Faith DO Date Dictated: 12/25/17 1043 Date Transcribed: 12/26/17823 Communications Electrician Supervisor: Signed 26-Sep-2017 Urgent Care Visit Report Result: Comments: See Note; NOTES: [facility] [address] [place] [address] [address] [place] [address] OFFICE VISIT Date of Service: 08/28/17 MR#: [id number] Acct: [id number] Name: BRANDIE KUO Rep #: [id number] : 1945 Provider: Carmine ELDER Age/Sex: 72/F Location: [facility] Status: Signed Intake Vital Signs08/28/17 Height 5 ft 1 in 08/28/17 Weight: 146 lb 08/28/17 Body Mass Index (BMI) 27.6 Intake Visit Reasons: Sinus infection Lawn Caretaker Required: No Is patient in pain?: No Allergies erythromycin base Allergy (Verified 08/28/17 09:42) Rash ibuprofen [From Motrin] Allergy (Verifie d 08/28/17 09:42) Rash dicyclomine HCl [From Bentyl] Adverse Reaction (Verified 08/28/17 09:42) Nausea nitrofurantoin Adverse Reaction (Verified 08/28/17 09:42) Nausea Sulfa (Sulfonamide Antibiotics) Ad verse Reaction (Verified 08/28/17 09:42) Nausea Medications TraMADol [Ultram] 100 mg PO BID 09/30/13 [History Confirmed 03/20/17] Bergamot [Nottoway Bergamot] 02/12/17 [History] BusPIRone [Buspar] 15 m [...] Result: Comments: See Note; NOTES: [facility] [address] [place] [address] OFFICE VISIT Date of Service: 08/28/17 MR#: [id number] Acct: [id number] Name: BRANDIE KUO Rk Rep #: [id number] : 1945 Provider: Carmine ELDER Age/Sex: 72/F Location: [facility] Status: Signed Intake Vital Signs08/28/17 Height 5 ft 1 in 08/28/17 Weight: 146 lb 08/28/17 Body Mass Index (BMI) 27.6 Intake Visit Reasons: Sinus infection Lawn Caretaker Required: No Is patient in pain?: No Allergies erythromycin base Allergy (Verified 08/28/17 09:42) Rash ibuprofen [From Motrin] Allergy (Verifie d 08/28/17 09:42) Rash dicyclomine HCl [From Bentyl] Adverse Reaction (Verified 08/28/17 09:42) Nausea nitrofurantoin Adverse Reaction (Verified 08/28/17 09:42) Nausea Sulfa (Sulfonamide Antibiotics) Ad verse Reaction (Verified 08/28/17 09:42) Nausea Medications TraMADol [Ultram] 100 mg PO BID 09/30/13 [History Confirmed 03/20/17] Bergamot [[place] Bergamot] 02/12/17 [History] BusPIRone [Buspar] 15 m [...] (CAD), BILAT Result: Comments: See Note; NOTES: [facility] Imaging Services [address] [place] [address] SCREENING MAMM (CAD), BILAT MR#: [id number] Acct: [id number] Name: BRANDIE KUO Rep #: [id number] : 1945 F 71 From: Zbigniew Carroll MD PCP: Camryn Faith DO Status: REG CLI Study: SCREENING MAMM (CAD), BILAT Date of Exam: 04/16/17 Exam# [id number] Ordering Dr: Camryn Faith DO MAMMOGRAPHY - [...] delay biopsy of a clinically suspicious abnormality. [id number] Electronically Signed: Zbigniew Carroll MD at 8:58 EDT Tel [phone], Service support , CC: Camryn Faith DO Communications Electrician Supervisor: Signed 15-Mar-2017 12 Lead Electrocardiogram Result: Comments: See Note; NOTES: [facility] Cardiovascular Services [address] [place] [address] EKG - SDC 03/14/1732 MR#: [id number] Acct: [id number] Name: BRANDIE KUO Rep # : [id number] : 1945 71 From: Luis Buckley MD Attending Dr: Rylan Bird MD Status: PRE IN Ordering Dr: Rylan Bird MD Date: 03/14/17 Location: [facility] Sex: F C Admitted: Test Reason [...] Borderline ECG Confirmed by LUIS BUCKLEY ([id number]), publishing editor DEENA TOUSSAINT ([id number]) on 03/15/2017 10:41:46 AM Referred By: CARLIE TEJEDA Confirmed By:LUIS BUCKLEY 03/15/17 1041 Date Luis Buckley MD CC: Luis Buckley MD; Camryn Faith DO Date Dictated: 03/14/17731 Date Transcribed: 03/14/17731 Communications Electrician Supervisor: Signed 12-Feb-2017 Emergency Department Summary Result: Comments: See Note; NOTES: [facility] Medical Records Department [address] [place] [address] Emergency Department Summary MR#: [id number] Acct: [id number] Name: BRANDIE KUO Rep #: [id number] : 1945 71 From: Luis Garcia DO PCP: Camryn Faith DO Status: [facility] ER DATE OF SERVICE: 02/12/2017 [...] diverticulitis. Luis kenney DO T: NTS JOB: [id number] 02/12/172224 <Electronically signed by Luis Garcia DO> Date Luis Garcia DO Cosigner Signature (If I ndicated): Date CC: Camryn Faith DO Date Dictated: 02/12/171934 Date Transcribed: 02/12/171934 Communications Electrician Supervisor: Signed 12-Feb-2017 Discharge Instruction Result: Comments: See Note; NOTES: [facility] Medical Records Department [address] [place] [address] Discharge Instruction 02/12/171913 MR#: [id number] Acct: [id number] Name: Michelle KUO Rep #: [id number] : 1945 71 From: Luis Garcia DO [...] your Primary Care Provider. Call [facility] ([phone]) or report to the closest Emergency Room. Call 911 if necessary. 02/12/171915 <Electron ically signed by Luis Garcia DO> Date Luis Garcia DO Cosigner Signature (If Indicated): Date CC: Camryn Faith DO 12-Feb-2017 Abdomen/Pelvis W IV Cont ONLY Result: Comments: See Note; NOTES: [facility] Imaging Services [address] [place] [address] Ver[address]ana 4d Abdomen/Pelvis W IV Cont ONLY MR#: [id number] Acct: [id number] Name: ADITHYA KUO RA Beckman Rep #: [id number] : 1945 F 71 From: Gloria Whitman MD PCP: Camryn Faith DO Status: REG ER Study: Abdomen/Pelvis W IV Cont ONLY Date of Exam: 02/12/17 Exam# [id number] Ordering Dr: Palak Garcia DO STUDY: CT [...] techniques were used for this CT. COMPARISON: [facility] 2015 CT scan abdomen and [...] CC: Luis Garcia DO; Camryn Faith DO Communications Electrician Supervisor: Signed 03-May-2016 Transvaginal Non- Result: Comments: See Note; NOTES: [facility] Imaging Services [address] [place] [address] Verdana 4d Transvaginal Non- MR#: [id number] Acct: [id number] Name: BRANDIE KUO Rep #: [id number] : 1945 F 70 From: Zbigniew Carroll MD PCP: Royal Perea Status: REG CLI Study: Transvaginal Non- Date of Exam: 05/03/16 Exam# [id number] Ordering Dr: Royal Perea STUDY: ULTRASOUND OF [...] Zbigniew Carroll MD at 11:16 EDT Tel [phone], Service support [phone], CC: Royal Perea Communications Electrician Supervisor: Signed 03-May-2016 Abdomen Complete Result: Comments: See Note; NOTES: [facility] Imaging Services [address] [place] [address] Verdana 4d Abdomen Complete MR#: [id number] Acct: [id number] Name: BRANDIE KUO Rep #: [id number] : 1945 F 70 From: Zbigniew Carroll MD PCP: Royal Perea Status: REG CLI Study: Abdomen Complete Date of Exam: 05/03/16 Exam# [id number] Ordering Dr: Royal Perea STUDY: ABDOMINAL ULTRASOUND [...] Zbigniew Carroll MD at 11:14 EDT Tel [phone], Service support [phone], CC: Royal Perea Communications Electrician Supervisor: Signed 03-May-2016 Pelvic (Non ) Result: Comments: See Note; NOTES: [facility] Imaging Services [address] [place] [address] Verdana 4d Pelvic (Non ) MR#: [id number] Acct: [id number] Name: AYAANBRANDIERA Rk Cabrera p #: [id number] : 1945 F 70 From: Zbigniew Carroll MD PCP: Royal Perea Status: REG CLI Study: Pelvic (Non ) Date of Exam: 05/03/16 Exam# [id number] Ordering Dr: Royal Perea STUDY: ULTRASOUND OF [...] Zbigniew Carroll MD at 11:16 EDT Tel [phone], Service support [phone], CC: Royal Perea Communications Electrician Supervisor: Signed 15-Feb-2016 Bilat Scrn Digital AND CAD Result: Comments: See Note; NOTES: [facility] Imaging Services [address] [place] [address] Verdana 4d Bilat Scrn Digital AND CAD MR#: [id number] Acct: [id number] Name: BRANDIE KUO Rep #: [id number] : 1945 F 70 From: Zbigniew Carroll MD PCP: Royal Perea Status: REG CLI Study: Bilat Scrn Digital AND CAD Date of Exam: 02/15/16 Exam# [id number] Ordering D r: Yobany, Kylie DO MAMMOGRAPHY [...] delay biopsy of a clinically suspicious abnormality. [id number] Electronically Shaina d: Zbigniew Carroll MD at 9:50 EDT Tel [phone], Service support [phone], CC: Kylie aHywood DO; Royal Perea Communications Electrician Supervisor: Signed 15-Feb-2016 Dexa Bone Density/Append Skel Result: Comments: See Note; NOTES: [facility] Imaging Services [address] [place] [address] Verdana 4d Dexa Bone Density/Append Skel MR#: [id number] Acct: [id number] Wilder e: BRANDIE KUO Rep #: [id number] : 1945 F 70 From: Zbigniew Carroll MD PCP: Royal Perea Status: REG CLI Study: Dexa Bone Density/Append Skel Date of Exam: 02/15/16 Exam# [id number] Orde ring Dr: Kylie Haywood DO STUDY: [...] Zbigniew Carroll MD at 9:26 EDT Tel [phone], Service support [phone], CC: Kylie Haywood DO; Royal Perea Communications Electrician Supervisor: Signed 02-Feb-2016 Carotid Duplex Ultrasound Result: Comments: See Note; NOTES: [facility] Cardiovascular Services [address] [place] [address] Carotid Duplex Ultrasound 02/01/16 0856 MR#: [id number] Acct: [id number] Name: BRANDIE KUO Rep #: [id number] : 1945 70 From: Ej Ortiz MD [...] the left vertebral artery. Procedure Carotid Duplex 76692. The exam was diagno stic. Exam performed in department. Interpretation Summary Mild (<50%) stenosis right extracranial internal carotid. Mild (<50%) stenosis left extracranial internal carotid. Flow wi thin the vertebral arteries is antegrade bilaterally. Ordering Physician: Kylie Haywood By: Blue Joseph RVT 02/02/16 1123 Date Ej Ortiz MD CC: Kylie Haywood DO Date Dictated: 02/01/16 0856 Date Transcribed: 02/02/16 1123 Communications Electrician Supervisor: Signed 25-Jan-2016 EKG (45577) Comments: ekg showed normal sinus rhythym, normal axis, no acute st/t wave changes Result: [MEASUREMENTS ANALYSIS] Date of Test: 01/25/2016 10:38:09; Heart Rate: 73; GA Interval: 132; QRS: 95; QT Interval: 408; Corrected QT Interval (QTc): 430; P Wave [place]: 52; QRS Wave [place]: 20; T Wave [place]: 61; Blood Pressure: 124/68 [ECG DIAGNOSTIC STATEMENTS] Date of Test: 01/25/2016 10:38:09; Summary: Sinus Rhythm Low voltage in limb leads. ABNORMAL 28-Oct-2015 Abdomen/Pelvis WITH Contrast Result: Comments: See Note; NOTES: [facility] Imaging Services [address] [place] [address] Verdana 4d Abdomen/Pelvis WITH Contrast MR#: [id number] Acct: [id number] Name : BRANDIE KUO Rep #: [id number] : 1945 F 70 From: Zbigniew Carroll MD PCP: Kylie Haywood DO Status: REG CLI Study: Abdomen/Pelvis WITH Contrast Date of Exam: 10/28/15 Exam# [id number] Orde [facility] Dr: yKlie Haywood DO STUDY: CT ABDOMEN AND PELVIS [...] Zbigniew Carroll MD at 15:09 EST Tel [phone], Service support [phone], CC: Kylie Haywood DO Communications Electrician Supervisor: Signed 25-Oct-2015 L/S Spine Min 4 Views Result: Comments: See Note; NOTES: [facility] Imaging Services [address] [place] [address] Verda 4d L/S Spine Min 4 Views MR#: [id number] Acct: [id number] Name: BRANDIE KUO Rep #: [id number] : 1945 F 70 From: Zbigniew Carroll MD PCP: Kylie Haywood DO Status: REG CLI Study: L/S Spine Min 4 Views Date of Exam: 10/25/15 Exam# [id number] Ordering Dr: Kylie Haywood DO STUDY: X-RAY [...] Zbigniew Carroll MD at 8:59 EST Tel [phone], Service support [phone], RAD/L/S Spine Min 4 Views IMPRESSION: Degenerative changes of the spine, as detailed a zabrina. Electronically Signed: Zbigniew Carroll MD at 8:59 EST Tel [phone], Service support [phone], CC: Kylie Haywood DO Communications Electrician Supervisor: Signed 17-Jun-2015 Operative Report Result: Comments: See Note; NOTES: [facility] Medical Records Department [address] [place] [address] Operative Report MR#: [id number] Acct: [id number] Name: BRANDIE KUO Rep #: [id number] : 1945 70 From: Rylan Bird MD [...] years. Rylan Bird MD T: NTS JOB: [id number] 06/17/15 0548 <Electronically signed by Rylan Bird MD> Date Rylan hidalgo Signature (If Indicated): Date CC: Kylie Haywood DO; Rylan Bird MD Date Dictated: 06/16/15833 Date Transcribed: 06/16/15833 Communications Electrician Supervisor: Signed 15-Feb-2015 Carotid Duplex Ultrasound Result: Comments: See Note; NOTES: [facility] Cardiovascular Services [address] [place] [address] Carotid Duplex Ultrasound 02/15/15 1339 MR#: [id number] Acct: [id number] Na me: BRANDIE KUO Rep #: [id number] : 1945 69 From: Ej Ortiz MD [...] the left vertebral artery. Procedure Carotid Duplex 49774. The exam was diagnostic. Exam performed in [...] Date Dictated: 02/15/15 1339 Date Transcribed: 02/15/151944 Communications Electrician Supervisor: Signed 09-Feb-2015 Bilat Scrn Digital AND CAD Result: Comments: See Note; NOTES: [facility] Imaging Services [address] [place] [address] Breast Imaging Report MR#: [id number] Acct: [id number] Name: BRANDIE KUO Rep #: [id number] : 1945 F 69 From: Zbigniew Carroll MD PCP: Kylie Haywood DO Status: REG CLI Study: Logan Roperjeff Digital AND CAD Date of Exam: 02/09/15 Exam# [id number] Ordering Dr: Kylie Haywood DO MAMMOGRAPHY - [...] Zbigniew pop MD at 10:49 EDT Tel [phone], Service support [phone], CC: Kylie Haywood DO; EVELYN PATEL Communications Electrician Supervisor: Signed 05-Sep-2014 Discharge Instruction Result: Comments: See Note; NOTES: [facility] Medical Records Department [address] [facility] [place] [address] Discharge Instruction 09/05/14 0648 MR#: [id number] Acct: [id number] Name: BRANDIE KUO Rep #: [id number] : 1945 69 From: Kamran Swartz MD [...] Discharge Instruction Result: Comments: See Note; NOTES: [facility] Medical Records Department [address] [place] [address] Discharge Instruction 09/05/14 0647 MR#: [id number] Acct: [id number] Name: BRANDIE KUO Rep #: [id number] : 1945 69 From: Kamran Swartz MD [...] without Cont Result: Comments: See Note; NOTES: [facility] Imaging Services [address] [place] [address] CAT Scan Report MR#: [id number] Acct: [id number] Name: BRANDIE KUO Rep #: [id number] : 1945 F 69 From: Viviana Robles PCP: Kylie Haywood DO Status: REG ER Study: Abdomen/Pelvis without Cont Date of Exam: 09/05/14 Exam# [id number] Ordering Dr: Kamran Swartz MD STUDY: CT [...] malignancy, followup with colonoscopy is recommended at [facility] nically appropriate time. 2. Non-obstructing small right renal calculus. 3. Degenerative lumbosacral spondylosis. Electronically Signed: Brooks Robles MD at 6:33 EST Tel , Service support [phone], CC: Kylie Haywood DO; Kamran Swartz MD Communications Electrician Supervisor: Signed 16-Jan-2014 Bilat Scrn Digital & CAD Result: Comments: See Note; NOTES: [facility] Imaging Services [address] [place] [address] Breast Imaging Report MR#: [id number] Acct: [id number] Name: BRANDIE KUO Rep #: [id number] : 1945 F 68 From: Zbigniew Carroll MD PCP: Kylie Haywood DO Status: REG CLI Exam# [id number] Ordering Dr: Kylie Haywood DO MAMMOGRAPHY - [...] Zbigniew Carroll MD at 8:42 EDT Tel [phone], Service support [phone], CC: Kylie Haywood DO Communications Electrician Supervisor: Signed 14-Oct-2013 Ribs Uni Min 3V w/PA Chest Result: Comments: See Note; NOTES: [facility] Imaging Services [address] [place] [address] Radiology Report MR#: [id number] Acct: [id number] Name: BRANDIE KUO Rep #: [id number] : 1945 F 68 From: Zbigniew Carroll MD PCP: Kylie Haywood DO Status: REG CLI Study: Ribs Uni Min 3V w/PA Chest Date of Exam: 10/14/13 Exam# [id number] Ordering Dr: Kylie Haywood DO STUD Y: [...] M.D. at 15:39 EST , Service support [phone], CC: Kylie Haywood DO Communications Electrician Supervisor: Signed 15-Jul-2013 Dexa Bone Density Study (HP) Result: Comments: See Note; NOTES: [facility] Imaging Services [address] [place] [address] Bone Density Report MR#: [id number] Acct: [id number] Name: BRANDIE KUO Rep #: [id number] : 1945 F 68 From: Zbigniew Carroll MD PCP: Status: REG CLI Study: Dexa Bone Density Study (HP) Date of Exam: 07/15/13 Exam# [id number] Ordering Dr: Kylie Haywood DO STUDY: DUAL [...] M.D. July 042012 at 8:59:54 AM EST [phone] Electronically Signed GP/GP If you are the referring physician and would like to consult with the radiologist who provided this interpretation, please conta mikhail Carroll M.D. at [phone]. If this radiologist is unavailable, you will be directed to another radiologist to assist. If you are a patient with a question regarding this report, pl ease contact your referring physician directly. Professional Interpretation Provided By: [employer], Phone , These documents contain legally protected [...] of these documents. CC: Kylie Haywood DO Communications Electrician Supervisor: Signed Immunization Name Dates Details Influenza (3 years and up) on: 25-Jun-2007 Comments: given in left deltoid, 0.5cc, lot#[id number], exp.08 WF Influenza (3 years and up) [...] Value Details :02 Blood Glucose , Office (97265) Blood Glucose , Office 102 (Normal) :02 HgA1C , Office (90785) HgA1C , Office 5.5 % (Normal) Range: 4.6 - 7.1 :27 CBC W/Diff, Automated Comments: [facility] [address] [place], [place], [address] Absolute Lymph 0.97 {X10_3/ul} (Normal) Range: 0.83-4.51 [...] 4.2-5.4 WBC 5.2 K/mm3 (Normal) Range: 4.4-11.0 8-Amw-806524:27 Comprehensive Metabolic Profil Comments: [facility] [address] [place], [place], [phone] GAP 9 (Normal) Range: 5-15 CO2 28.0 [...] Comments: Please note revised GLUCOSE reference range lgizpdayp34/02/2018. 90-Udi-65368:3 EGD ([facility]) See Note (Normal) Comments: [facility] [address] [place], [address] 0 Comments: Patient: BRANDIE KUO : 1945 (73/F) Acct Num: [id number] Phys: Rylan Bird MD Unit Num: [id number] Loc: EN Specimen: [id number] Received: 05/21/1825 Spec Type: EGD B IOPSY TISSUES TISSUES: A. Gastric mucous membrane B. Esophageal mucous membrane C. Esophageal mucous membrane COMMENT The results of immunohisto chemistry for Helicobacter pylori will be reported separately ([id number]). GROSS DESCRIPTION A - Received in fixative [...] one cassette. / SJ:aga 05/21/18 TC:3 CPT: 00746 x3 HEADER OPERATION: Colonoscopy , EGD (MOD) [...] of inflammation. AM:aga 05/22/18 Signed ___ Edgard [facility] 05/22/18 <signature on file> 32-Dtw-72740:0 IMMUNOHISTOCHEMISTRY See Note (Normal) Comments: [facility] [address] [facility] [place], [place], [address] 0 Comments: Patient: BRANDIE KUO : 1945 (73/F) Acct Num: [id number] Phys: Pelon MONROE,Rylan Unit Num: [id number] Loc: EN Specimen: [id number] Received: 05/22/18 - 1430 Spec Type: IMMUN O TISSUES TISSUES: A. Stomach, NOS SPECIMEN INFORMATION: Tissue Source: A Antral biopsy Clinical Info: GERD, esophagitis, screening Specimen Number: [id number] CPT code: 00838 METHODOLOGY: Deparaffinized sections of prefer/formalin- fixed tissue [...] developed and their performance characteristics determined by [facility] Laboratory. They may not have been cleared or approved by the U.S. Food and Drug Administration. The FDA has determined that such clearance or approval is not necessary. INTERPRETATION: A. Antral biopsy: Negative for Helicobacter pylori organisms. AM:aga 05/24/18 PHYSICIAN AND INSTITUTION [place] [address] Sign ed Edgard Pipe 05/24/18 <signature on file> :18 C-REACTIVE PROTEIN (32775) Comments: PATIENT NOT FASTINGPERFORMED BY: [facility] Lbvcmb7452 [facility] [id number] C-Reactive Protein, Quant 4.9 mg/L (Normal) Range: 0.0-4.9 :18 ESR-F (SED RATE ERYTHROCYTE - Comments: PATIENT NOT FASTINGPERFORMED BY: [facility] Nhdnkl1939 [facility] [id number] FEMALE) (67905) Sedimentation Rate-[place] 24 mm/h (Normal) Range: 0-40 :18 LIPASE (77528) Comments: PATIENT NOT FASTINGPERFORMED BY: [facility] Gvvass3764 [facility] [id number] Lipase 76 U/L (Normal) Range: 14-85 :18 AMYLASE (32739) Comments: PATIENT NOT FASTINGPERFORMED BY: [facility] Xzojiv0581 [facility] [id number] Amylase 111 U/L (Normal) Range: 31-124 :18 TSH (41661) Comments: PATIENT NOT FASTINGPERFORMED BY: [facility] Wljszc7926 [facility] [id number] TSH 3.730 {uIU/mL} (Normal) Range: 0.450-4.500 :18 T4, FREE (THYROXINE) (02459) Comments: PATIENT NOT FASTINGPERFORMED BY: LabCoSummit Oaks HospitalVtzdwr9667 [facility] [id number] T4,Free(Direct) 0.84 ng/dL (Normal) Range: 0.82-1.77 :18 T3, FREE (TRIDOTHYRONINE) (93486) Comments: PATIENT NOT FASTINGPERFORMED BY: LabCoSummit Oaks HospitalGjrvya8512 [facility] [id number] Triiodothyronine (T3), Free 2.7 pg/mL (Normal) Range: 2.0-4.4 :13 HgA1C , Office (57942) HgA1C , Office 5.8 % (Normal) Range: 4.6 - 7.1 :13 Blood Glucose , Office (13019) Blood Glucose , Office 98 (Normal) :31 CBC W/Diff, Automated Comments: [facility] [address] [place], [place], [phone] Absolute Lymph 0.71 {X10_3/ul} (Abnormal) Range: 0.83-4.51 [...] Range: 4.4-11.0 04-Apr-20189:31 Comprehensive Metabolic Profil Comments: [facility] [address] [place], [address] GAP 10 (Normal) Range: 5-15 CO2 27.0 [...] Comments: Please note revised GLUCOSE reference range yflvojnnp90/02/2018. 92-Rkx-14746:29 CBC W/Diff, Automated Comments: [facility] [address] [place], [place], [phone] Absolute Lymph 0.84 {X10_3/ul} (Normal) Range: 0.83-4.51 [...] 4.2-5.4 WBC 5.8 K/mm3 (Normal) Range: 4.4-11.0 80-Ysg-72054:29 Comprehensive Metabolic Profil Comments: [facility] [address] [place], [place], [phone] GAP 5 (Normal) Range: 5-15 CO2 30.0 [...] Comments: Please note revised GLUCOSE reference range mfgcpxfqa36/02/2018. 60-Gaj-76834:14 METABOLIC PANEL, COMPREHENSIVE Comments: PATIENT WAS FASTINGPERFORMED BY: LabCoSummit Oaks HospitalFkxmjv6119 [facility] [id number] (46413) ALT (SGPT) 26 [iU]/L (Normal) Range: 0-32 [...] 8-27 Glucose 93 mg/dL (Normal) Range: 65-99 69-Wcm-45532:14 CBC, PLATELETS & AUT DIFF Comments: PATIENT WAS FASTINGPERFORMED BY: [facility] Lfrgmm6090 [facility] [id number] (26862) Immature Grans (Abs) 0.0 {x10E3/uL} (Normal) Range: [...] 3.77-5.28 WBC 5.3 {x10E3/uL} (Normal) Range: 3.4-10.8 77-Dze-99242:14 LIPID PANEL (06780) Comments: PATIENT WAS FASTINGPERFORMED BY: King SolarmanSummit Oaks HospitalUyzkvi2266 [facility] [id number] LDL/HDL Ratio 4.7 {ratio} (Abnormal) Range: 0.0-3.2 [...] 295 mg/dL (Abnormal) Range: 100-199 :14 CALCIFEDIOL (23500) Comments: PATIENT WAS FASTINGPERFORMED BY: King [employer] Dpaubq5588 [facility] [id number] Vitamin D, 25-Hydroxy 75.8 ng/mL (Normal) Range: 30.0-100.0 Comments: Vitamin D deficiency has been defined by the [place] ofMedicine and an Endocrine Society practice guideline as alevel of serum 25-OH vitamin D less than 20 ng/mL (1,2).The Endocrine Society went on to further define vitamin Dinsufficiency as a level between 21 and 29 ng/mL (2).1. IOM ([place] of Medicine). 2010. Dietary reference intakes for calcium and D. Day [place]: The National Academies Press.2. Micky RAWLS, Yohana COBURN, Kennedy PAL, et al. Evaluation, treatment, and prevention of vitamin D deficiency: an Endocrine Society clinical practice guideline. JCEM. 2010; 96(7):1911-30. 34-Rne-489121:52 CBC W/Diff, Automated Comments: [facility] [address] [place], [phone] Absolute Lymph 0.91 {X10_3/ul} (Normal) Range: 0.83-4.51 [...] 4.2-5.4 WBC 4.7 K/mm3 (Normal) Range: 4.4-11.0 38-Clq-687636:52 Comprehensive Metabolic Profil Comments: [facility] [address] [place], [phone] GAP 6 (Normal) Range: 5-15 CO2 29.0 [...] A.D.A. criteria.Please note revised GLUCOSE reference range tjnmzxxit03/02/2018. 0-Aim-864970:09 HgA1C , Office (93118) HgA1C , Office 5.6 % (Normal) Range: 4.6 - 7.1 :15 CBC W/Diff, Automated Comments: [facility] [address] [place], [place], [address] Absolute Lymph 0.70 {X10_3/ul} (Abnormal) Range: 0.83-4.51 [...] 4.2-5.4 WBC 3.5 K/mm3 (Abnormal) Range: 4.4-11.0 07-Fly-61385:15 Comprehensive Metabolic Profil Comments: [facility] [address] [place], [address] GAP 7 (Normal) Range: 5-15 CO2 29.0 mmol/L (Normal) Range: 21.0-32.0 CL 106 mmol/L (Normal) Range: 98-107 K 3.8 mmol/L (Normal) Range: 3.5-5.1 NA 142 mmol/L (Normal) Range: 136-145 T BILI 0.40 mg/dL (Normal) Range: 0.20-1.00 ALT 38 U/L (Normal) Range: 13-56 Comments: Please note revised ALT reference range qimaktmvz90/28/2018. ALK P 74 U/L (Normal) Range: 45-117 [...] Comments: Please note revised GLUCOSE reference range purlilcbb44/02/2018. 94-Osa-45116:44 VITAMIN B-12 (CYANOCOBALAMIN) Comments: PATIENT WAS FASTINGPERFORMED BY: [facility]6370 [facility] [id number] (02320) Vitamin B12 575 pg/mL (Normal) Range: 232-1245 82-Zuh-33400:44 METABOLIC PANEL, COMPREHENSIVE Comments: PATIENT WAS FASTINGPERFORMED BY: [employer]6370 [facility] [id number] (49744) ALT (SGPT) 30 [iU]/L (Normal) Range: 0-32 [...] 8-27 Glucose 86 mg/dL (Normal) Range: 65-99 07-Gof-52373:44 CBC W/AUTO DIFF WBC (50046) Comments: PATIENT WAS FASTINGPERFORMED BY: LabCorewell [facility]6370 [facility] [id number] Immature Grans (Abs) 0.0 {x10E3/uL} (Normal) Range: [...] 3.77-5.28 WBC 5.5 {x10E3/uL} (Normal) Range: 3.4-10.8 89-Eie-19644:44 LIPID PANEL (06888) Comments: PATIENT WAS FASTINGPERFORMED BY: King SolarmanSummit Oaks HospitalUajlwj8340 [facility] [id number] LDL/HDL Ratio 3.9 {ratio_units} (Abnormal) Range: 0.0-3.2 Comments: LDL/HDL Ratio Men Women 1/2 Avg.Risk 1.0 1.5 Av g.Risk 3.6 3.2 2X Avg.Risk 6.2 5.0 3X Avg.Risk 8.0 6.1 LDL Cholesterol Calc 177 mg/dL (Abnormal) Range: 0-99 VLDL Cholesterol Rocky 54 mg/dL (Abnormal) Range: 5-40 HDL Cholesterol 45 mg/dL (Normal) Triglycerides 271 mg/dL (Abnormal) Range: 0-149 Cholesterol, Total 276 mg/dL (Abnormal) Range: 100-199 19-Nbp-26902:44 CALCIFIDIOL (84279) VIT D 25 Comments: PATIENT WAS FASTINGPERFORMED BY: [employer] HoldingsCorewell Health Butterworth Hospital6370 [facility] [id number] Vitamin D, 25-Hydroxy 38.1 ng/mL (Normal) Range: 30.0-100.0 Comments: Vitamin D deficiency has been defined by the [place] ofMedicine and an Endocrine Society practice guideline as alevel of serum 25-OH vitamin D less than 20 ng/mL (1,2).The Endocrine Society went on to further define vitamin Dinsufficiency as a level between 21 and 29 ng/mL (2).1. IOM ([place] of Medicine). 2010. Dietary reference intakes for calcium and D. Day [place]: The National Academies Press.2. Micky MF, Yohana NC, Kennedy PAL, et al. Evaluation, treatment, and prevention of vitamin D deficiency: an Endocrine Society clinical practice guideline. JCEM. 2010; 96(7):1911-30. :51 HgA1C , Office (50372) HgA1C , Office 5.6 % (Normal) Range: 4.6 - 7.1 :53 CBC W/Diff, Automated Comments: [facility] [address] [place], [place], [phone] Absolute Lymph 0.78 {X10_3/ul} (Abnormal) Range: 0.83-4.51 [...] Range: 4.4-11.0 :53 Comprehensive Metabolic Profil Comments: [facility] [address] [place], [address] GAP 8 (Normal) Range: 5-15 CO2 27.0 [...] 7-18 GLU 90 mg/dL (Normal) Range: 70-110 94-Xum-10938:48 LIPID PANEL (90223) Comments: PATIENT WAS FASTINGPERFORMED BY: CB [facility] Lpshjb0529 [facility] [id number] BY: BN [facility] [address] [id number] LDL/HDL Ratio 4.5 {ratio_units} (Abnormal) Range: 0.0-3.2 [...] D Hydroxy Comments: PATIENT WAS FASTINGPERFORMED BY: [employer] Puaosp8739 [address] [facility] [place] [id number] BY: King Solarman[address] [id number] (84908) Vitamin D, 25-Hydroxy 68.0 ng/mL (Normal) Range: 30.0-100.0 Comments: Vitamin D deficiency has been defined by the [place] ofGreen Cross Hospitalcine and an Endocrine Society practice guideline as alevel of serum 25-OH vitamin D less than 20 ng/mL (1,2).The Endocrine Society went on to further define vitamin Dinsufficiency as a level between 21 and 29 ng/mL (2).1. IOM ([place] of Medicine). 2010. Dietary reference intakes for calcium and D. Day [place]: The National Academies Press.2. Micky MF, Yohana COBURN, Kennedy PAL, et al. Evaluation, treatment, and prevention of vitamin D deficiency: an Endocrine Society clinical practice guideline. JCEM. 2010; 96(7):1911-30. :48 FERRITIN (03926) Comments: PATIENT WAS FASTINGPERFORMED BY: [employer] Gopfir6112 [address] [facility] [place] [id number] BY: King Solarman[address] [id number] Ferritin, Serum 20 ng/mL (Normal) Range: 15-150 :48 IRON BINDING CAPACITY Comments: PATIENT WAS FASTINGPERFORMED BY: [employer] Jf[address]dl9[address] [facility] [place] [id number] BY: King Solarman[address] [id number] (TIBC) (33575) Iron Saturation 10 % (Abnormal) Range: 15-55 Iron, Serum 43 ug/dL (Normal) Range: 27-139 UIBC 376 ug/dL (Abnormal) Range: 118-369 Iron Bind.Cap.(TIBC) 419 ug/dL (Normal) Range: 250-450 23-Wgj-88640:48 Methymalonic Acid, Serum Comments: PATIENT WAS FASTINGPERFORMED BY: [employer] [facility] [id number] BY: [employer] Uuughueard9661 [facility] [id number] (02262) Methylmalonic Acid, Serum 371 nmol/L (Normal) Range: 0-378 32-Prl-18730:48 VITAMIN B-12 (CYANOCOBALAMIN) Comments: PATIENT WAS FASTINGPERFORMED BY: [employer] [facility] [id number] BY: [employer] Ooqpoozten7852 [facility] [id number] (89144) Vitamin B12 511 pg/mL (Normal) Range: 211-946 Comments: Effective August 06, 2017 the reference interval for Vitamin B12 will be changing to: 232-1245 pg/mL. 98-Djw-998312:27 Protein Electro, Random Comments: PATIENT NOT FASTINGPERFORMED BY: [employer]6370 [facility] [id number] BY: King Solarman[address] [id number] Urine Please note: SPRCS (Normal) Comments: Protein electrophoresis scan will follow via computer, mail, orcourier delivery. M-Geraldo, % Not Observed % (Normal) Gamma Globulin, U 24.5 % (Normal) Beta Globulin, U 26.3 % (Normal) Aaang-8-Ewlpjcqp, U 17.3 % (Normal) Mgosg-0-Cmbzlvbw, U 7.0 % (Normal) Albumin, U 24.9 % (Normal) Protein,Total,Urine <4.0 mg/dL (Normal) Comments: Verified by repeat analysis 35-Rsq-673955:27 Soluble Transferrin Comments: PATIENT NOT FASTINGPERFORMED BY: [facility] Vznhzx1594 [facility] [id number] BY: [address] [id number] Receptor (22017) Soluble Transferrin Receptor 24.6 nmol/L (Normal) Range: 12.2-27.3 22-Zie-904445:27 WILLIAM TEST, DIRECT Comments: PATIENT NOT FASTINGPERFORMED BY: [facility] Jismzg5349 [address] [facility] [id number] BY: [address] [id number] (89324) William', Direct Negative (Normal) 35-Oll-029726: FOLIC ACID SERUM (15258) Comments: PATIENT NOT FASTINGPERFORMED BY: [facility] Jthtyc2664 [facility] [id number] BY: [address] [id number] Folate (Folic Acid), Serum >20.0 ng/mL (Normal) Comments: A serum folate concentration of less than 3.1 ng/mL isconsidered to represent clinical deficiency. 93-Wpp-949816:27 Methymalonic Acid, Serum Comments: PATIENT NOT FASTINGPERFORMED BY: King Solarmanrp Qwuvmk7396 [facility] [id number] BY: [address] [id number] (40535) Methylmalonic Acid, Serum 554 nmol/L (Abnormal) Range: 0-378 12-Tuj-919705:27 VITAMIN B-12 Comments: PATIENT NOT FASTINGPERFORMED BY: [facility] Ybrmcn4367 [facility] [id number] BY: [address] [id number] (CYANOCOBALAMIN) (65135) Vitamin B12 386 pg/mL (Normal) Range: 211-946 50-Fqs-065340:27 RETICULOCYTE COUNT MANUL Comments: PATIENT NOT FASTINGPERFORMED BY: [place] [id number] [facility] [id number] BY: [address] [id number] (74319) Reticulocyte Count 1.4 % (Normal) Range: 0.6-2.6 87-Vqa-664266:27 LDH (LD) (LACTATE Comments: PATIENT NOT FASTINGPERFORMED BY: [place] 8688470 [facility] [id number] BY: [address] [id number] DEHYDROGENASE) (74379) LDH 202 [iU]/L (Normal) Range: 119-226 76-Uzn-296560:27 IRON BINDING CAPACITY Comments: PATIENT NOT FASTINGPERFORMED BY: [address] [id number] BY: [address] [id number] (TIBC) (72889) Iron Saturation 6 % (Abnormal) Range: 15-55 Iron, Serum 26 ug/dL (Abnormal) Range: 27-139 UIBC 394 ug/dL (Abnormal) Range: 118-369 Iron Bind.Cap.(TIBC) 420 ug/dL (Normal) Range: 250-450 36-Ffs-819346:27 FERRITIN (16013) Comments: PATIENT NOT FASTINGPERFORMED BY: [place] [id number] [facility] [id number] BY: [address] [id number] Ferritin, Serum 20 ng/mL (Normal) Range: 15-150 03-Xac-736158:27 CBC, PLATELETS & AUT DIFF Comments: PATIENT NOT FASTINGPERFORMED BY: [address] [id number] BY: [address] [id number] (08995) Immature Grans (Abs) 0.0 {x10E3/uL} (Normal) Range: [...] 3.77-5.28 WBC 5.1 {x10E3/uL} (Normal) Range: 3.4-10.8 82-Exf-756052:27 Serum Protein Comments: PATIENT NOT FASTINGPERFORMED BY: [facility] Dgthtw2419 [facility] [id number] BY: [facility] [address] [id number] Electrophoresis (SPEP) (69493) Please note: SPRCS (Normal) Comments: Protein electrophoresis scan will follow via computer, mail, orcourier delivery. A/G Ratio 1.2 (Normal) Range: 0.7-1.7 Globulin, Total 3.3 g/dL (Normal) Range: 2.2-3.9 M-Geraldo Not Observed g/dL (Normal) Gamma Globulin 0.8 g/dL (Normal) Range: 0.4-1.8 Beta Globulin 1.3 g/dL (Normal) Range: 0.7-1.3 Fksjr-4-Fvdkbdow 1.0 g/dL (Normal) Range: 0.4-1.0 Vcmtq-8-Hmriflmu 0.2 g/dL (Normal) Range: 0.0-0.4 Albumin 3.8 g/dL (Normal) Range: 2.9-4.4 Protein, Total, Serum 7.1 g/dL (Normal) Range: 6.0-8.5 :58 CBC W/Diff, Automated Comments: [facility] [address] [place], [place], [address] Absolute Lymph 0.80 {X10_3/ul} (Abnormal) Range: 0.83-4.51 [...] Range: 4.4-11.0 :58 Comprehensive Metabolic Profil Comments: [facility] [address] [place], [place], [phone](828) GAP 7 (Normal) Range: 5-15 CO2 30.0 [...] 70-110 :35 Basic Metabolic Profile (BMP) Comments: [facility] [address] [place], [place], [address] GAP 9 (Normal) Range: 5-15 CO2 28.0 [...] :35 CBC-Complete Blood Cnt No Diff Comments: [facility] Ak[address] [place], [place], [address] MPV 9.6 fL (Normal) Range: 6.2-12.0 PLT [...] Range: 4.4-11.0 :35 Partial Thromboplast Time Comments: [facility] [address] [place], [place], [address] PTT 27.3 s (Normal) Range: 24.1-36.2 :35 Prothrombin Time w/INR Comments: [facility] [address] [place], [place], [address] INR 1.0 (Normal) PROTIME 12.7 s (Normal) Range: 11.7-14.9 81-Rmr-766334:30 Urinalysis, Complete Comments: Order Date: 02/12/17How was Urine Obtained? [facility] [address] [place], [place], [phone] MUCUS, URINE 0 SEEN {/hpf} (Normal) BACTERIA [...] CLARITY Sl. Cloudy (Normal) COLOR Yellow (Normal) 54-Rvp-140659:45 Basic Metabolic Profile (BMP) Comments: [facility] [address] [place], [place], [address] GAP 10 (Normal) Range: 5-15 CO2 27.0 [...] 7-18 GLU 100 mg/dL (Normal) Range: 70-110 61-Lwk-729361:45 CBC W/Diff, Automated Comments: [facility] [address] [place], [address] Absolute Lymph 0.94 {X10_3/ul} (Normal) Range: 0.83-4.51 [...] 4.2-5.4 WBC 7.3 K/mm3 (Normal) Range: 4.4-11.0 88-Qvk-861070:10 URINE MAHENDRA CULTURE-IDENTIFICATN Comments: PATIENT WAS FASTINGPERFORMED BY: [employer] [facility] HoldingsCorewell [facility]6370 [facility] [id number] (62731) Result 1 MUG (Normal) Comments: Mixed urogenital flora25,000-50,000 colony forming units per mL Urine Final report (Normal) Culture,Comprehensive 98-Eaz-878589:10 URINALYSIS (91730) Comments: PATIENT WAS FASTINGPERFORMED BY: [employer] [facility] HoldingsCore[facility]6370 [facility] [id number] Microscopic Examination MICNIP (Normal) Comments: Microscopic not indicated and not performed. Nitrite, Urine Negative (Normal) Urobilinogen,Semi-Qn 0.2 mg/dL (Normal) Range: 0.2-1.0 Bilirubin Negative (Normal) Occult Blood Negative (Normal) Ketones Negative (Normal) Glucose Negative (Normal) Protein Trace (Normal) WBC Esterase Negative (Normal) Appearance Clear (Normal) Urine-Color Yellow (Normal) pH 7.0 (Normal) Range: 5.0-7.5 Specific [place] [facility] 1.015 (Normal) Range: 1.005-1.030 09-Six-035727:10 C-REACTIVE PROTEIN (30710) Comments: PATIENT WAS FASTINGPERFORMED BY: [employer] [facility] HoldingsCore[facility]6370 [facility] [id number] C-Reactive Protein, Quant 7.7 mg/L (Abnormal) Range: 0.0-4.9 19-Ooq-395635:10 Sed Rate Erythrocyte (45552) Comments: PATIENT WAS FASTINGPERFORMED BY: [employer] [facility] Holdings[facility]6370 [facility] [id number] Sedimentation Rate-[place] 34 mm/h (Normal) Range: 0-40 89-Nzw-899038:10 Metabolic Panel, Comprehensive Comments: PATIENT WAS FASTINGPERFORMED BY: [employer] [facility] HoldingsCore[facility]6370 [facility] [id number] (03915) ALT (SGPT) 13 [iU]/L (Normal) Range: 0-32 [...] Glucose, Serum 93 mg/dL (Normal) Range: 65-99 89-Kco-626244:10 CBC with auto diff Comments: PATIENT WAS FASTINGPERFORMED BY: LabCorewell [facility]6370 [facility] [id number] Information: SRC:KORINA (69017) Hematology Comments: Note: (Normal) Comments: Verified by [...] Range: 3.4-10.8 :43 CBC W/Diff, Automated Comments: [facility] Id[address]isja[address] [facility] [place], [place], [phone] Absolute Lymph 0.79 {X10_3/ul} (Abnormal) Range: 0.83-4.51 [...] Range: 4.4-11.0 :43 Comprehensive Metabolic Profil Comments: [facility] [address] [place], [address] GAP 7 (Normal) Range: 5-15 CO2 29.0 [...] mg/dL (Normal) Range: 70-110 :10 LIPID PANEL (42181) Comments: PATIENT WAS FASTINGPERFORMED BY: [employer]6370 [facility] [id number] LDL/HDL Ratio 4.4 {ratio_units} (Abnormal) Range: 0.0-3.2 [...] degree relatives should be collected. J Clin Jugcabk1545;5:133-140 LDL Cholesterol Calc 209 mg/dL (Abnormal) Range: 0-99 VLDL Cholesterol Rocky 57 mg/dL (Abnormal) Range: 5-40 HDL Cholesterol 48 mg/dL (Normal) Triglycerides 285 mg/dL (Abnormal) Range: 0-149 Cholesterol, Total 314 mg/dL (Abnormal) Range: 100-199 05-Yps-28377:10 HEPATIC FUNCTION PANEL Comments: PATIENT WAS FASTINGPERFORMED BY: DescomplicaSummit Oaks HospitalKzrwlz9156 [facility] [id number] (17630) ALT (SGPT) 13 [iU]/L (Normal) Range: 0-32 AST (SGOT) 19 [iU]/L (Normal) Range: 0-40 Alkaline Phosphatase, S 75 [iU]/L (Normal) Range: 39-117 Bilirubin, Direct 0.08 mg/dL (Normal) Range: 0.00-0.40 Bilirubin, Total 0.2 mg/dL (Normal) Range: 0.0-1.2 Albumin, Serum 4.4 g/dL (Normal) Range: 3.5-4.8 Protein, Total, Serum 6.7 g/dL (Normal) Range: 6.0-8.5 :46 LAMYI-VPBGNBGLPET-TQHPX (98034) Comments: PATIENT WAS FASTINGPERFORMED BY: LabCoSummit Oaks HospitalWjjvji0965 [facility] [id number] AFP, Serum, Tumor Marker 5.5 ng/mL (Normal) Range: 0.0-8.3 Comments: Carmencita ECLIA methodology :28 HgA1C , Office (22258) HgA1C , Office 5.7 % (Normal) Range: 4.6 - 7.1 :46 CBC W/AUTO DIFF WBC (11308) Comments: PATIENT WAS FASTINGPERFORMED BY: LabCoSummit Oaks HospitalXizive6427 [facility] [id number] Immature Grans (Abs) 0.0 {x10E3/uL} (Normal) Range: [...] 3.77-5.28 WBC 4.4 {x10E3/uL} (Normal) Range: 3.4-10.8 61-Plu-121218:46 METABOLIC PANEL, COMPREHENSIVE Comments: PATIENT WAS FASTINGPERFORMED BY: [facility] Jbkmve8138 [facility] [id number] (08040) ALT (SGPT) 15 [iU]/L (Normal) Range: 0-32 [...] Glucose, Serum 95 mg/dL (Normal) Range: 65-99 29-Ytk-422871:46 TSH (89950) Comments: PATIENT WAS FASTINGPERFORMED BY: King Solarman Wfztos6633 [facility] [id number] TSH 1.750 {uIU/mL} (Normal) Range: 0.450-4.500 38-Stg-128619:46 LIPID PANEL (56014) Comments: PATIENT WAS FASTINGPERFORMED BY: King Solarman Mbiysz3347 [facility] [id number] LDL/HDL Ratio 4.7 {ratio_units} (Abnormal) Range: 0.0-3.2 [...] degree relatives should be collected. J Clin Txsjida9092;5:133-140 LDL Cholesterol Calc 201 mg/dL (Abnormal) Range: 0-99 VLDL Cholesterol Rocky 63 mg/dL (Abnormal) Range: 5-40 HDL Cholesterol 43 mg/dL (Normal) Triglycerides 316 mg/dL (Abnormal) Range: 0-149 Cholesterol, Total 307 mg/dL (Abnormal) Range: 100-199 94-Qmf-191020:46 CALCIFIDIOL (60170) VIT D 25 Comments: PATIENT WAS FASTINGPERFORMED BY: King SolarmanSummit Oaks HospitalGhoysz8252 [facility] [id number] Vitamin D, 25-Hydroxy 38.5 ng/mL (Normal) Range: 30.0-100.0 Comments: Vitamin D deficiency has been defined by the [place] of[place]icine and an Endocrine Society practice guideline as alevel of serum 25-OH vitamin D less than 20 ng/mL (1,2).The Endocrine Society went on to further define vitamin Dinsufficiency as a level between 21 and 29 ng/mL (2).1. IOM ([place] of Medicine). 2010. Dietary reference intakes for calcium and D. Day [place]: The National Academies Press.2. Micky MF, Yohana COBURN, Kennedy PAL, et al. Evaluation, treatment, and prevention of vitamin D deficiency: an Endocrine Society clinical practice guideline. JCEM. 2010; 96(7):1911-30. 42-Yhe-428885:43 CBC W/Diff, Automated Comments: [facility] [address] [place], [place], [address] Absolute Lymph 1.03 {X10_3/ul} (Normal) Range: 0.83-4.51 [...] 4.2-5.4 WBC 5.1 K/mm3 (Normal) Range: 4.4-11.0 12-Gcr-920074:43 Comprehensive Metabolic Profil Comments: [facility] [address] [place], [place], [address] GAP -4 (Abnormal) Range: 5-15 CO2 29.0 [...] (Normal) Range: 70-110 :30 Culture, Miscellaneous Comments: [facility] [address] [place], [place], [address] CUM See Note (Normal) Comments: MOUTH AND TONGUE PLUS YEAST TONGUE GLOSSITIS DRY MOUTH Comments: MOUTH AND TONGUE/ PLUS YEASTMisc. CultureNo Yeast, Haemophilus, Streptococcus pneumoniae, beta-hemolytic Streptococcus or Staphyloco ccus aureus isolated. Gram StainGram Stain 2+ Epithelial cells 2+ Gram positive cocci :03 CBC W/Diff, Automated Comments: [facility] [address] [place], [place], [address] Absolute Lymph 0.88 {X10_3/ul} (Normal) Range: 0.83-4.51 [...] 4.2-5.4 WBC 5.0 K/mm3 (Normal) Range: 4.4-11.0 55-Qtg-226974:03 Comprehensive Metabolic Profil Comments: [facility] [address] [place], [place], [address] GAP 7 (Normal) Range: 5-15 CO2 29.0 [...] 7-18 GLU 83 mg/dL (Normal) Range: 70-110 90-Nsh-54033:16 Vitamin D Hydroxy (32041) Comments: PATIENT WAS FASTINGPERFORMED BY: [facility]6370 [facility] [id number] Vitamin D, 25-Hydroxy 56.1 ng/mL (Normal) Range: 30.0-100.0 Comments: Vitamin D deficiency has been defined by the [place] ofMedicine and an Endocrine Society practice guideline as alevel of serum 25-OH vitamin D less than 20 ng/mL (1,2).The Endocrine Society went on to further define vitamin Dinsufficiency as a level between 21 and 29 ng/mL (2).1. IOM ([place] of Medicine). 2010. Dietary reference intakes for calcium and D. Day [place]: The National Academies Press.2. Micky RAWLS, Yohana COBURN, Kennedy PAL, et al. Evaluation, treatment, and prevention of vitamin D deficiency: an Endocrine Society clinical practice guideline. JCEM. 2010; 96(7):1911-30. :16 UCSQD-MUKXHPHOYPH-BVCVW (58887) Comments: PATIENT WAS FASTINGPERFORMED BY: [facility]6370 [facility] [id number] AFP, Serum, Tumor Marker 5.3 ng/mL (Normal) Range: 0.0-8.3 Comments: Carmencita ECLIA methodology :16 METABOLIC PANEL, Comments: PATIENT WAS FASTINGPERFORMED BY: King Solarman Vihmzi2284 [facility] [id number] Information: [id number] COMPREHENSIVE (27002) ALT (SGPT) 14 [iU]/L (Normal) Range: 0-32 [...] Glucose, Serum 85 mg/dL (Normal) Range: 65-99 83-Zju-35293:16 LIPID PANEL (82360) Comments: PATIENT WAS FASTINGPERFORMED BY: [address] [id number]; non-emergent till apt with Dr. Perea LDL/HDL [...] Cholesterol, Total 294 mg/dL (Abnormal) Range: 100-199 3-Msz-675181:21 ANTINUCLEAR ANTIBODIES DIRECT Comments: [facility] (refer to report for specific site)refer to report for address and phone number RENUKA-DIRECT Negative (Normal) Comments: Performed at: [address] [id number] Director: Sudheer Russell PhD, Phone: [phone] 7-Cdt-942183:21 CBC W/Diff, Automated Comments: [facility] [address] [place], [address] Absolute Lymph 1.13 {X10_3/ul} (Normal) [...] 4.2-5.4 WBC 5.0 K/mm3 (Normal) Range: 4.4-11.0 9-Nih-706477:21 CCP IgG Antibodies Comments: [facility] (refer to report for specific site)refer to report for address and phone number ANTI-CCP 366199 8 {units} (Normal) Range: 0-19 Comments: Negative <20 Weak positive 20 - 39 Moderate positive 40 - 59 Strong positive >59 4-Tdc-728204:21 Comprehensive Metabolic Profil Comments: [facility] [address] [place], [place], [address] GAP 7 (Normal) Range: 5-15 CO2 29.0 [...] 7-18 GLU 87 mg/dL (Normal) Range: 70-110 8-Unb-412511:21 Hep B Surface Antibodies Comments: [facility] (refer to report for specific site)refer to report for address and phone number Hep B Cecille AB Non Reactive (Normal) Comments: Non Reactive: Inconsistent with immunity, less than 10 mIU/mL Reactive: Consistent with immunity, greater than 9.9 mIU/ mL 3-Wck-072734:21 Hepatitis B Surface Ag Comments: [facility] (refer to report for specific site)refer to report for address and phone number HB SURF AG Negative (Normal) Comments: Performed at: CB - [facility] [address] [id number] Director: Sudheer Russell PhD, Phone: [phone] at: BN - [facility] [place] [id number] Director: Kirby Fitch MD, Phone: [phone] 7-Ftp-378811:21 Hepatitis C Antibodies Comments: [facility] (refer to report for specific site)refer to report for address and phone number HEP C AB 0.2 {s/co_ratio} (Normal) Range: 0.0-0.9 Comments: Negative: < 0.8 Indeterminate: 0.8 - 0.9 Positive: > 0.9 The CDC recommends that a positive HCV antibody result be followed up with a HCV Nucleic Acid Amplification test (160613). 0-Cdo-080254:21 Rheumatoid Factor Comments: [facility] [address] [place], [address] RHEUMATOID FAC < 10.0 {IU/mL} (Normal) 70-Phc-04426:16 CBC with auto diff Comments: PATIENT WAS FASTINGPERFORMED BY: [facility]CoSummit Oaks HospitalOqxgqq2039 [facility] [id number] Information: [id number] (39426) Immature Grans (Abs) 0.0 {x10E3/uL} (Normal) Range: [...] 3.77-5.28 WBC 5.2 {x10E3/uL} (Normal) Range: 3.4-10.8 20-Whi-96427:16 LIPID PANEL (10265) Comments: PATIENT WAS FASTINGPERFORMED BY: [facility]CoSummit Oaks HospitalCylrlt5666 [facility] [id number] LDL/HDL Ratio 5.7 {ratio_units} (Abnormal) Range: 0.0-3.2 [...] degree relatives should be collected. J Clin Ndfevbk5011;5:133-140 LDL Cholesterol Calc 223 mg/dL (Abnormal) Range: 0-99 VLDL Cholesterol Rocky 63 mg/dL (Abnormal) Range: 5-40 HDL Cholesterol 39 mg/dL (Abnormal) Comments: According to ATP-III Guidelines, HDL-C >59 mg/dL is considered anegative risk factor for CHD. Triglycerides 313 mg/dL (Abnormal) Range: 0-149 Cholesterol, Total 325 mg/dL (Abnormal) Range: 100-199 :16 METABOLIC PANEL, COMPREHENSIVE Comments: PATIENT WAS FASTINGPERFORMED BY: [facility] Nnzwbn8954 [facility] [id number] (18725) ALT (SGPT) 13 [iU]/L (Normal) Range: 0-32 [...] (Normal) Range: 65-99 :16 Vitamin D Hydroxy (98510) Comments: PATIENT WAS FASTINGPERFORMED BY: [facility]CoSummit Oaks HospitalBjkmvq9189 [facility] [id number] Vitamin D, 25-Hydroxy 35.5 ng/mL (Normal) Range: 30.0-100.0 Comments: Vitamin D deficiency has been defined by the [place] ofGreen Cross Hospitalcine and an Endocrine Society practice guideline as alevel of serum 25-OH vitamin D less than 20 ng/mL (1,2).The Endocrine Society went on to further define vitamin Dinsufficiency as a level between 21 and 29 ng/mL (2).1. IOM ([place] of Medicine). 2010. Dietary reference intakes for calcium and D. Day [place]: The National Academies Press.2. Micky MF, Yohana NC, Kennedy PAL, et al. Evaluation, treatment, and prevention of vitamin D deficiency: an Endocrine Society clinical practice guideline. JCEM. 2010; 96(7):1911-30. :22 Comprehensive Metabolic Profil Comments: [facility] [address] [place], [address] GAP 8 (Normal) Range: 5-15 CO2 29.0 [...] 7-18 GLU 96 mg/dL (Normal) Range: 70-110 51-Xqe-64598:22 Lipase Comments: [facility] [address] [facility] [address] [place], [place], [address] LIPASE 583 U/L (Abnormal) Range: 73-393 :22 Lipid Profile Comments: [facility] [address] [facility] [facility] [address] [place], [place], [address] VLDL 55 mg/dL (Abnormal) Range: 5-40 LDL [...] High Risk :22 Vitamin D,25 Hydroxy Comments: [facility] [address] [place], [address] Vitamin D 25-OH 37.0 ng/mL (Normal) Comments: Vitamin D 25(OH) Status Range Deficiency <20 ng/mL (50nmol/L) Insuffciency 20 - 30 ng/mL (50 - 75 nmol/L) Sufficiency 30 - 100 ng/mL (75 - 250 nmol/L) Toxicity >100 ng/mL (>250 nmol/L) 8-Ils-597961:10 Culture, Nose Comments: [facility] [address] [place], [address] CUN See Note (Normal) Comments: Gram StainGram Stain 1+ White Blood Cells Rare Red Blood Cells No organisms seen Nasoph. CultNo Haemophilus, Streptococcus pneumoniae, beta-hemolytic Streptococcus or Staphylococcus aureus isolated. : EGD (PICK SITE) See Note (Normal) Comments: [facility] [address] [place], [address] 00 Comments: Patient: BRANDIE KUO : 1945 (70/F) Acct Num: [id number] Phys: Rylan Bird MD Unit Num: [id number] Loc: EN Specimen: [id number] Received: 06/16/1549 Spec Type: EGD B IOPSY TISSUES TISSUES: COMMENT A - The results of immunohistochemistry for Helicobacter pylori will be reportedseparately ([id number]). GROSS DESCRIPTION A - Received is one [...] one cassette. / AM: 06/16/15 TC:3 CPT: 54759 x4 HEADER OPERATION: EGD and colonoscopy with [...] biopsy: Melanosis coli. AM: 06/17/15 Signed Edgard [facility] 06/18/15 <signature on file> : IMMUNOHISTOCHEMISTRY See Note (Normal) Comments: [facility] [address] [place], [address] 00 Comments: Patient: BRANDIE KUO : 1945 (70/F) Acct Num: [id number] Phys: Pelon MONROE,Rylan Unit Num: [id number] Loc: EN Specimen: [id number] Received: 06/18/15 - 1004 Spec Type: IMMU NO TISSUES TISSUES: SPECIMEN INFORMATION: Tissue Source: Gastric antrum, biopsy Clinical Info: Reflux, epigastric pain Specimen Number: [id number] CPT code: 76218 METHODOLO GY: Deparaffinized sections of prefer/formalin-fixed tissue or PAP/DQ stained slides are incubated with monoclonal/polyclonal antibodies/oligonucleotide probes. Localization is made via biotin free immunoperoxidase method. Appropriate controls are performed and reacted as expected. Results on target cell population are indicated in the following table: RESULTS: ANTIBODY / CLONE RESULT H Pylori (polyclonal) negative These tests were developed and their performance characteristics determined by [facility]. They may not have been cleared or approved by the U.S. Food and Drug Administration. The FDA has determined that such clearance or approval is not necessary. INTERPRETATION: Gastric antrum, biopsy: Negative for H elicobacter pylori organisms. SJ:shaan 06/18/15 PHYSICIAN AND INSTITUTION [place] [address] Signed Bobby Yadav 06/18/15 <signature on file> 93-Ayn-21263:59 Urinalysis, Office (29794) UA - LEUKOCYTE ESTERASE Trace (Normal) UA - NITRITE Negative (Normal) URINE UROBILINGN MIKI TIMED 2 mg/dL (Normal) UA - PROTEIN Trace mg/dL (Normal) UA - PH 8.0 (Normal) UA - BLOOD Negative (Normal) UA - SPECIFIC GRAVITY 1.020 (Normal) UA - KETONES Small mg/dL (Normal) UA - BILIRUBIN Small (Normal) UA - GLUCOSE Negative (Normal) 21-Utx-21641:34 URINE MAHENDRA CULTURE-IDENTIFICATN Comments: PATIENT NOT FASTINGPERFORMED BY: [facility] Bzddga2081 [facility] [id number] Information: [id number] (88555) Result 1 BETAGB (Abnormal) Comments: Beta hemolytic [...] per mL Urine Final report (Abnormal) Culture,Comprehensive 5-Wpn-217570:44 URINE MAHENDRA CULTURE-MIKI COL Comments: PATIENT NOT FASTINGPERFORMED BY: JAYDE [facility] Belzuu4921 [facility] [id number] Information: SRC:URT [id number] COUNT (83272) Result 2 BETAGB (Abnormal) Comments: Beta hemolytic [...] primarily for treating urinary tract infections. (CLSI, W542-G11,2009) Urine Final report (Abnormal) Culture,Comprehensive 8-Apr-670554:12 Urinalysis, Office (68184) UA - LEUKOCYTE ESTERASE Negative (Normal) UA [...] DIFF WBC Comments: PATIENT WAS FASTINGPERFORMED BY: King Solarman [place] [facility] [id number] Information: [id number] (22587) Immature Grans (Abs) 0.0 {x10E3/uL} (Normal) Range: [...] (Normal) Range: 3.4-10.8 :26 Vitamin D Hydroxy (92834) Comments: PATIENT WAS FASTINGPERFORMED BY: [facility] SolarmanRoosevelt General HospitalOacnmk4202 [facility] [id number] Vitamin D, 25-Hydroxy 36.5 ng/mL (Normal) Range: 30.0-100.0 Comments: Vitamin D deficiency has been defined by the [place] ofMedicine and an Endocrine Society practice guideline as alevel of serum 25-OH vitamin D less than 20 ng/mL (1,2).The Endocrine Society went on to further define vitamin Dinsufficiency as a level between 21 and 29 ng/mL (2).1. IOM ([place] of Medicine). 2010. Dietary reference intakes for calcium and D. Day [place]: The National Academies Press.2. Micky MF, Yohana COBURN, Kennedy PAL, et al. Evaluation, treatment, and prevention of vitamin D deficiency: an Endocrine Society clinical practice guideline. JCEM. 2010; 96(7):1911-30. :26 METABOLIC PANEL, COMPREHENSIVE Comments: PATIENT WAS FASTINGPERFORMED BY: [facility]CoSum[facility] HospitalUvjgqf5720 [facility] [id number] (13999) ALT (SGPT) 13 [iU]/L (Normal) Range: 0-32 [...] mg/dL (Normal) Range: 65-99 :26 LIPID PANEL (61205) Comments: PATIENT WAS FASTINGPERFORMED BY: King SolarmanSummit Oaks HospitalRceevg1962 [facility] [id number] LDL/HDL Ratio 5.8 {ratio_units} (Abnormal) Range: 0.0-3.2 [...] Total 348 mg/dL (Abnormal) Range: 100-199 :26 BIFXE-CVGZOUFKWAW-WSYRW (69889) Comments: PATIENT WAS FASTINGPERFORMED BY: [facility] SolarmanSummit Oaks HospitalLmiumv2200 [facility] [id number] AFP, Serum, Tumor Marker 5.8 ng/mL (Normal) Range: 0.0-8.3 Comments: Carmencita ECLIA methodology :26 LIPASE (28100) Comments: PATIENT WAS FASTINGPERFORMED BY: King SolarmanSummit Oaks HospitalKkjixa5094 [facility] [id number] Lipase, Serum 117 U/L (Abnormal) Range: 0-59 :11 Comp. Metabolic Panel (14) Comments: PATIENT NOT FASTINGPERFORMED BY: [facility] SolarmanSummit Oaks HospitalLhuelx8360 [facility] [id number] Information: [id number] ALT (SGPT) 11 [iU]/L (Normal) Range: 0-32 [...] With LDL/HDL Comments: PATIENT NOT FASTINGPERFORMED BY: [facility]CoSum[facility]aks HospitalZjtnyp3986 [facility] [id number]; will review at 02/09 appt Ratio LDL/HDL [...] ng/mL (Abnormal) Comments: PATIENT NOT FASTINGPERFORMED BY: [place] [id number] [facility] [id number] :11 Range: 30.0-100.0 Comments: Vitamin D deficiency has been defined by the [place] ofMedicine and an Endocrine Society practice guideline as alevel of serum 25-OH vitamin D less than 20 ng/mL (1,2).The Endocrine Society went on to further define vitamin Dinsufficiency as a level between 21 and 29 ng/mL (2).1. IOM ([place] of Medicine). 2010. Dietary reference intakes for calcium and D. [place]: The National Academies Press.2. Micky MF, Yohana NC, Kennedy PAL, et al. Evaluation, treatment, and prevention of vitamin D deficiency: an Endocrine Society clinical practice guideline. JCEM. 2010; 96(7):1911-30. :37 LIPASE (87999) Comments: PATIENT NOT FASTINGPERFORMED BY: [place] [id number] [facility] [id number] Information: [id number] Lipase, Serum 99 U/L (Abnormal) Range: 0-59 :48 Lipase (01051) Comments: PATIENT WAS FASTINGPERFORMED BY: [place] [id number] [facility] [id number] Information: [id number] Lipase, Serum 110 U/L (Abnormal) Range: 0-59 :20 Basic Metabolic Profile (BMP) Comments: Test performed at:[facility] [address] [place] [address] GAP 8 (Normal) Range: 5-15 CO2 26.0 [...] 05-Sep-20145:20 CBC W/Diff, Automated Comments: Test performed at:[facility] [address]wx[address]os[address] [place], [place] [id number] Absolute Lymph 0.64 {X10_3/ul} (Abnormal) Range: 0.83-4.51 [...] Range: 4.4-11.0 :20 Lipase Comments: Test performed at:[facility] Tas[address]wp[address] [place] [address] LIPASE 377 U/L (Abnormal) Range: 70-290 :50 [...] (Normal) Range: 70-110 :50 Vitamin D Hydroxy (18293) Comments: PATIENT WAS FASTINGPERFORMED BY: [facility]CoSum[facility] HospitalNpjfqi5712 [facility] [id number] Vitamin D, 25-Hydroxy 35.7 ng/mL (Normal) Range: 30.0-100.0 Comments: Vitamin D deficiency has been defined by the [place] ofGreen [facility] Hospitalcine and an Endocrine Society practice guideline as alevel of serum 25-OH vitamin D less than 20 ng/mL (1,2).The Endocrine Society went on to further define vitamin Dinsufficiency as a level between 21 and 29 ng/mL (2).1. IOM ([place] of Medicine). 2010. Dietary reference intakes for calcium and D. [place]: The National Academies Press.2. Micky MF, Yohana NC, Kennedy PAL, et al. Evaluation, treatment, and prevention of vitamin D deficiency: an Endocrine Society clinical practice guideline. JCEM. 2010; 96(7):1911-30. :50 LIPID PANEL (27266) Comments: PATIENT WAS FASTINGPERFORMED BY: [facility]6370 [facility] [id number] Information: [id number],2ND ORDER LDL/HDL Ratio 4.0 {ratio_units} (Abnormal) Range: [...] degree relatives should be collected. J Clin Jcgspqy2292;5:133-140 LDL Cholesterol Calc 195 mg/dL (Abnormal) Range: 0-99 VLDL Cholesterol Rocky 32 mg/dL (Normal) Range: 5-40 HDL Cholesterol 49 mg/dL (Normal) Comments: According to ATP-III Guidelines, HDL-C >59 mg/dL is considered anegative risk factor for CHD. Triglycerides 160 mg/dL (Abnormal) Range: 0-149 Cholesterol, Total 276 mg/dL (Abnormal) Range: 100-199 :50 [id number]-[id number]-[id number] (33664) Comments: PATIENT WAS FASTINGPERFORMED BY: [facility]6370 [facility] [id number] AFP, Serum, Tumor Marker 6.3 ng/mL (Normal) Range: 0.0-8.3 Comments: Carmencita ECLIA methodology :50 PTT (Activated Partial Comments: PATIENT WAS FASTINGPERFORMED BY: [facility]6370 [facility] [id number] Thromboplastin Time) (76221) aPTT 24 {sec} (Normal) Range: 24-33 Comments: This test has not been validated for monitoring unfractionated heparintherapy. aPTT-based therapeutic ranges for unfractionated heparintherapy have not been established. For general guidelines onHeparin monitoring, refer to the [facility] Directory of Services. :50 PT (Prothrobim Time) (15965) Comments: PATIENT WAS FASTINGPERFORMED BY: [facility]6370 [facility] [id number] Prothrombin Time 10.3 {sec} (Normal) Range: 9.1-12.0 INR 1.0 (Normal) Range: 0.8-1.2 Comments: Reference interval is for non-anticoagulated patients. . Suggested INR therapeutic range for Vitamin K anta gonist therapy: Standard Dose (moderate intensity therapeutic range): 2.0 - 3.0 Higher intensity therapeutic range 2.5 - 3.5 68-Jhg-24620:19 CBC WITH MANUAL DIFF Comments: PATIENT WAS FASTINGPERFORMED BY: [facility]6370 [facility] [id number] Information: [id number] (35659) Immature Grans (Abs) 0.0 {x10E3/uL} (Normal) Range: [...] 3.77-5.28 WBC 4.5 {x10E3/uL} (Normal) Range: 3.4-10.8 98-Kjh-23408:19 METABOLIC PANEL, COMPREHENSIVE Comments: PATIENT WAS FASTINGPERFORMED BY: [facility]CoSum[facility] Oaks HospitalFtjaon7465 [facility] [id number] (67872) ALT (SGPT) 10 [iU]/L (Normal) Range: 0-32 [...] (Normal) Range: 65-99 :19 Vitamin D Hydroxy (79354) Comments: PATIENT WAS FASTINGPERFORMED BY: [employer]70 [facility] [id number] Vitamin D, 25-Hydroxy 42.1 ng/mL (Normal) Range: 30.0-100.0 Comments: Vitamin D deficiency has been defined by the [place] ofGreen Cross Hospitalcine and an Endocrine Society practice guideline as alevel of serum 25-OH vitamin D less than 20 ng/mL (1,2).The Endocrine Society went on to further define vitamin Dinsufficiency as a level between 21 and 29 ng/mL (2).1. IOM ([place] of Medicine). 2010. Dietary reference intakes for calcium and D. [place]: The National Academies Press.2. Micky MF, Yohana NC, Kennedy PAL, et al. Evaluation, treatment, and prevention of vitamin D deficiency: an Endocrine Society clinical practice guideline. JCEM. 2010; 96(7):1911-30. :19 LIPID PANEL (19777) Comments: PATIENT WAS FASTINGPERFORMED BY: [facility] Kuozjx5483 [facility] [id number] LDL/HDL Ratio 2.4 {ratio_units} (Normal) Range: 0.0-3.2 LDL Cholesterol Calc 126 mg/dL (Abnormal) Range: 0-99 VLDL Cholesterol Rocky 36 mg/dL (Normal) Range: 5-40 HDL Cholesterol 53 mg/dL (Normal) Comments: According to ATP-III Guidelines, HDL-C >59 mg/dL is considered anegative risk factor for CHD. Triglycerides 178 mg/dL (Abnormal) Range: 0-149 Cholesterol, Total 215 mg/dL (Abnormal) Range: 100-199 :41 T4, FREE (THYROXINE) (86676) Comments: PATIENT WAS FASTINGPERFORMED BY: [facility] SolarmanSummit Oaks HospitalHpagch4208 [facility] [id number] T4,Free(Direct) 1.00 ng/dL (Normal) Range: 0.82-1.77 :41 T3, FREE (TRIDOTHYRONINE) (57286) Comments: PATIENT WAS FASTINGPERFORMED BY: King SolarmanSummit Oaks HospitalDgpxwo4673 [facility] [id number] Triiodothyronine,Free,Serum 3.0 pg/mL (Normal) Range: 2.0-4.4 :41 TSH (84104) Comments: PATIENT WAS FASTINGPERFORMED BY: King Solarman Vbucnw2888 [facility] [id number] TSH 1.740 {uIU/mL} (Normal) Range: 0.450-4.500 :41 LIPID PANEL (25744) Comments: PATIENT WAS FASTINGPERFORMED BY: [facility] SolarmanSummit Oaks HospitalCeoaok5581 [facility] [id number] Information: [id number],NO DRAW FEE 2ND ORD ER; see message [...] Total 191 mg/dL (Normal) Range: 100-199 :19 [id number]-TFPVN (74035) Comments: PATIENT WAS FASTINGPERFORMED BY: [facility]6370 [facility] [id number] AFP, Serum, Tumor Marker 5.2 ng/mL (Normal) Range: 0.0-8.3 Comments: Carmencita ECLIA methodology :19 PTT (Activated Partial Comments: PATIENT WAS FASTINGPERFORMED BY: [facility]6370 [facility] [id number] Thromboplastin Time) (89774) aPTT 25 {sec} (Normal) Range: 24-33 Comments: This test has not been validated for monitoring unfractionated heparintherapy. aPTT-based therapeutic ranges for unfractionated heparintherapy have not been established. For general guidelines onHeparin monitoring, refer to the [facility] Directory of Services. :19 PT (Prothrobim Time) (44950) Comments: PATIENT WAS FASTINGPERFORMED BY: [facility]6370 [facility] [id number] Prothrombin Time 11.0 {sec} (Normal) Range: 9.1-12.0 INR 1.1 (Normal) Range: 0.8-1.2 Comments: Reference interval is for non-anticoagulated patients. . Suggested INR therapeutic range for Vitamin K anta gonist therapy: Standard Dose (moderate intensity therapeutic range): 2.0 - 3.0 Higher intensity therapeutic range 2.5 - 3.5 :19 CBC WITH MANUAL DIFF Comments: PATIENT WAS FASTINGPERFORMED BY: [facility]6370 [facility] [id number] Information: [id number] (41433) Immature Grans (Abs) 0.0 {x10E3/uL} (Normal) Range: [...] 3.77-5.28 WBC 3.7 {x10E3/uL} (Normal) Range: 3.4-10.8 65-Inm-54927:19 METABOLIC PANEL, COMPREHENSIVE Comments: PATIENT WAS FASTINGPERFORMED BY: [facility]CoSum[facility] Oaks HospitalMyzqzc3200 [facility] [id number] (65809) ALT (SGPT) 10 [iU]/L (Normal) Range: 0-32 [...] (Normal) Range: 65-99 :19 Vitamin D Hydroxy (85388) Comments: PATIENT WAS FASTINGPERFORMED BY: [employer]70 [facility] [id number] Vitamin D, 25-Hydroxy 36.2 ng/mL (Normal) Range: 30.0-100.0 Comments: Vitamin D deficiency has been defined by the [place] ofMedicine and an Endocrine Society practice guideline as alevel of serum 25-OH vitamin D less than 20 ng/mL (1,2).The Endocrine Society went on to further define vitamin Dinsufficiency as a level between 21 and 29 ng/mL (2).1. IOM ([place] of Medicine). 2010. Dietary reference intakes for calcium and D. Day [place]: The National Academies Press.2. Micky MF, Yohana NC, Kennedy PAL, et al. Evaluation, treatment, and prevention of vitamin D deficiency: an Endocrine Society clinical practice guideline. JCEM. 2010; 96(7):1911-30. :55 URINE MAHENDRA CULTURE (MIKI Comments: PATIENT NOT FASTINGPERFORMED BY: [employer] Bzzeqn2879 [facility] [id number] Information: SRC:UR [id number] COL COUNT) (00723) Result 1 BETAGB (Normal) Comments: Beta hemolytic [...] Final report (Normal) Culture,Comprehensive 08-Sep-20139:43 Urinalysis, Office (56036) UA - BILIRUBIN Negative (Normal) UA - BLOOD Negative (Normal) UA - GLUCOSE Negative (Normal) UA - KETONES Negative mg/dL (Normal) UA - LEUKOCYTE ESTERASE Small (Normal) UA - NITRITE Negative (Normal) UA - PH 7.0 (Normal) UA - PROTEIN Negative mg/dL (Normal) UA - SPECIFIC GRAVITY 1.025 (Normal) URINE UROBILINGN MIKI TIMED Normal mg/dL (Normal) :13 LIPID PANEL (32480) Comments: PATIENT WAS FASTINGPERFORMED BY: [facility] [id number] LDL Cholesterol Calc 93 mg/dL (Normal) Range: [...] MANUAL DIFF Comments: PATIENT WAS FASTINGPERFORMED BY: [employer]6370 [facility] [id number] Information: [id number] (00435) Immature Grans (Abs) 0.0 {x10E3/uL} (Normal) Range: [...] 3.77-5.28 WBC 4.1 {x10E3/uL} (Normal) Range: 3.4-10.8 07-Lmz-16173:13 METABOLIC PANEL, COMPREHENSIVE Comments: PATIENT WAS FASTINGPERFORMED BY: LabCoSum[facility] Oaks HospitalAbowgu0277 [facility] [id number] (34044) ALT (SGPT) 16 [iU]/L (Normal) Range: 0-32 [...] (Normal) Range: 65-99 :13 Vitamin D Hydroxy (78085) Comments: PATIENT WAS FASTINGPERFORMED BY: [facility]6370 [facility] [id number] Vitamin D, 25-Hydroxy 40.1 ng/mL (Normal) Range: 30.0-100.0 Comments: Vitamin D deficiency has been defined by the [place] ofGreen Cross Hospitalcine and an Endocrine Society practice guideline as alevel of serum 25-OH vitamin D less than 20 ng/mL (1,2).The Endocrine Society went on to further define vitamin Dinsufficiency as a level between 21 and 29 ng/mL (2).1. IOM ([place] of Medicine). 2010. Dietary reference intakes for [...] Signed:Milly PhamApril 24, 2013 at 2:03:02 PM [id number] Signed RU/RU If you are the referring physician and would like to consult with theradiologist who provided this interpretation, please conta mikhail Sheehan M.D. at [phone]. If this radiologist is unavailable, youwillbe directed to another radiologist to assist. If you are a patient with a question regarding this report, pleasecontac tyour referring physician directly. Professional Interpretation Provided By: [employer], Phone , These documents contain legally protected [...] Montoya on 04/24/131427 Sign by: Carson Montoya 87-Bjk-92014:33 TRANSVAGINAL NON- Radiology See Note Comments: CLINICAL:Female, [...] Montoya M.D.April 24, 2013 at 2:03:00 PM [id number] Signed RU/RU If you are the referring physician a nd would like to consult with theradiologist who provided this interpretation, please contact Joshua Sheehan at [phone]. If this radiologist is unavailable, youellyllbe directed to another radi ologist to assist. If you are a patient with a question regarding this report, pleasecontactyour referring physician directly. Professional Interpretation Provided By: [employer], Phone , These documents contain legally protected [...] on 04/24/13 1436 Sign by: Carson Montoya 97-Dyl-751267:01 URINE MAHENDRA CULTURE-IDENTIFICATN Comments: PATIENT NOT FASTINGPERFORMED BY: [facility] Ihxrci4147 [facility] [id number] Information: [id number] (54859) Result 1 Enterococcus faecalis Comments: 3,000 Colonies/mLNote: this isolate is vancomycin-susceptible.This information is provided for epidemiologic purposesonly: vancomycin is not among the antibioticsrecommended for therapy of urinary tract (Normal) infectionscaused by Enterococcus.For Enterococcus species, cephalosporins, aminoglycosides (except forhigh-level resistance screening), clindamycin, and trimethoprim-sulfamethoxazole are not effective clinically. Fluoroquinolones areused primarily for treating urinary tract infections. (CLSI, C460-L88,2009) Result 2 BETAGB (Normal) Comments: Beta hemolytic [...] RVancomycin S Urine Final report (Normal) CultureIsh 28-Lro-493136:55 Urinalysis, Office (53307) UA - LEUKOCYTE ESTERASE Small (Normal) UA [...] Carroll M.D.January 01, 2013 at 8:13:49 AM [id number] Signed GP/GP If you are the referring physician and would like to consult with theradiologist who provided this interpretation, please contact Joshua Brunson at [phone]. If this radiologist is unavailable, youwill be directed to select specialty hospital r radiologist to assist. If you [...] on 01/01/13833 Sign by: Zbigniew Carroll MD 29-Dve-37939:18 ABDOMEN COMPLETE Radiology Report See Note (Normal) [...] Carroll M.D.December 20, 2012 at 12:53:26 PM [id number] Signed GP/GP If you are the referring physician and would like to consult with theradiologist who provided this interpretation, please contact Alyssa parikh M.D. at [phone]. If this radiologist is unavailable, youwill be directed to another radiologist to assist. If you are a patient with a question regarding this report, pleasecontactyour referring physician directly. Professional Interpretation Provided By: [employer], Phone , These documents contain legally protected [...] 12/20/12 1256 Sign by: Zbigniew Carroll MD 90-Lim-10559:34 HEPATIC FUNCTION PANEL Comments: PATIENT WAS FASTINGPERFORMED BY: [facility]6370 [facility] [id number] (63841) ALT (SGPT) 28 [iU]/L (Normal) Range: 0-32 AST (SGOT) 39 [iU]/L (Normal) Range: 0-40 Alkaline Phosphatase, S 99 [iU]/L (Normal) Range: 47-112 Bilirubin, Direct 0.17 mg/dL (Normal) Range: 0.00-0.40 Bilirubin, Total 0.7 mg/dL (Normal) Range: 0.0-1.2 Albumin, Serum 4.6 g/dL (Normal) Range: 3.6-4.8 Protein, Total, Serum 7.2 g/dL (Normal) Range: 6.0-8.5 :34 LIPID PANEL (98961) Comments: PATIENT WAS FASTINGPERFORMED BY: DescomplicaSummit Oaks HospitalYzrsol0698 [facility] [id number] Information: [id number] LDL/HDL Ratio 1.7 {ratio_units} (Normal) Range: 0.0-3.2 HDL Cholesterol 62 mg/dL (Normal) Comments: According to ATP-III Guidelines, HDL-C >59 mg/dL is considered anegative risk factor for CHD. LDL Cholesterol Calc 104 mg/dL (Abnormal) Range: 0-99 VLDL Cholesterol Rocky 32 mg/dL (Normal) Range: 5-40 Triglycerides 158 mg/dL (Abnormal) Range: 0-149 Cholesterol, Total 198 mg/dL (Normal) Range: 100-199 :34 [id number]-[id number]-IIUVY (94761) Comments: PATIENT WAS FASTINGPERFORMED BY: [employer] Sknzcq7441 [facility] [id number] AFP, Serum, Tumor Marker 5.3 ng/mL (Normal) Range: 0.0-8.3 Comments: Carmencita ECLIA methodology :34 PTT (Activated Partial Comments: PATIENT WAS FASTINGPERFORMED BY: King SolarmanSummit Oaks HospitalSyeiky2553 [facility] [id number] Thromboplastin Time) (49562) aPTT 27 {sec} (Normal) Range: 24-33 Comments: This test has not been validated for monitoring unfractionated heparintherapy. aPTT-based therapeutic ranges for unfractionated heparintherapy have not been established. For general guidelines onHeparin monitoring, refer to the [facility] of Services. :34 PT (Prothrobim Time) (13431) Comments: PATIENT WAS FASTINGPERFORMED BY: [facility]6370 [facility] [id number] INR 1.0 (Normal) Range: 0.8-1.2 Comments: Reference interval is for non-anticoagulated patients. . Suggested INR therapeutic range for Vitamin K anta gonist therapy: Standard Dose (moderate intensity therapeutic range): 2.0 - 3.0 Higher intensity therapeutic range 2.5 - 3.5 Prothrombin Time 10.3 {sec} (Normal) Range: 9.1-12.0 :28 METABOLIC PANEL, COMPREHENSIVE Comments: PATIENT WAS FASTINGPERFORMED BY: [facility] [id number] (91191) ALT (SGPT) 11 [iU]/L (Normal) Range: 0-32 [...] MANUAL DIFF Comments: PATIENT WAS FASTINGPERFORMED BY: [facility] [id number] Information: [id number] (37198) Immature Grans (Abs) 0.0 {x10E3/uL} (Normal) Range: [...] (Normal) Range: 4.0-10.5 :28 Vitamin D Hydroxy (53740) Comments: PATIENT WAS FASTINGPERFORMED BY: [employer] Nxirnc9906 [facility] [id number] Vitamin D, 25-Hydroxy 48.4 ng/mL (Normal) Range: 30.0-100.0 Comments: Vitamin D deficiency has been defined by the [place] ofMedicine and an Endocrine Society practice guideline as alevel of serum 25-OH vitamin D less than 20 ng/mL (1,2).The Endocrine Society went on to further define vitamin Dinsufficiency as a level between 21 and 29 ng/mL (2).1. IOM ([place] of Medicine). 2010. Dietary reference intakes for calcium and D. Day [place]: The National Academies Press.2. Micky MF, Yohana COBURN, Kennedy PAL, et al. Evaluation, treatment, and prevention of vitamin D deficiency: an Endocrine Society clinical practice guideline. JCEM. 2010; 96(7):1911-30. :28 LIPID PANEL (37061) Comments: PATIENT WAS FASTINGPERFORMED BY: [employer]6370 [facility] [id number] LDL/HDL Ratio 2.2 {ratio_units} (Normal) Range: 0.0-3.2 [...] METABOLIC PANEL, Comments: PATIENT NOT FASTINGPERFORMED BY: King [employer] Rhrhfn7449 [facility] [id number] Information: [id number] COMPREHENSIVE (15082) Alkaline Phosphatase, S 83 [iU]/L (Normal) Range: [...] Serum 90 mg/dL (Normal) Range: 65-99 :07 [id number] (36749) Comments: PATIENT NOT FASTINGPERFORMED BY: [employer]6370 [facility] [id number] AFP, Serum, Tumor Marker 5.0 ng/mL (Normal) Range: 0.0-8.3 Comments: Carmencita ECLIA methodology :07 PTT (Activated Partial Comments: PATIENT NOT FASTINGPERFORMED BY: King [employer] Cwixvu6382 [facility] [id number] Thromboplastin Time) (98776) aPTT 25 {sec} (Normal) Range: 24-33 Comments: This test has not been validated for monitoring unfractionated heparintherapy. aPTT-based therapeutic ranges for unfractionated heparintherapy have not been established. For general guidelines onHeparin monitoring, refer to the [facility] Directory of Services. :07 PT (Prothrobim Time) (43014) Comments: PATIENT NOT FASTINGPERFORMED BY: [facility] [id number] Prothrombin Time 10.8 {sec} (Normal) Range: 9.1-12.0 INR 1.0 (Normal) Range: 0.8-1.2 Comments: Reference interval is for non-anticoagulated patients. . Suggested INR therapeutic range for Vitamin K anta gonist therapy: Standard Dose (moderate intensity therapeutic range): 2.0 - 3.0 Higher intensity therapeutic range 2.5 - 3.5 :07 Vitamin D Hydroxy (40235) Comments: PATIENT NOT FASTINGPERFORMED BY: [facility] [id number] Vitamin D, 25-Hydroxy 51.6 ng/mL (Normal) Range: 30.0-100.0 Comments: Vitamin D deficiency has been defined by the [place] ofMedicine and an Endocrine Society practice guideline as alevel of serum 25-OH vitamin D less than 20 ng/mL (1,2).The Endocrine Society went on to further define vitamin Dinsufficiency as a level between 21 and 29 ng/mL (2).1. IOM ([place] of Medicine). 2010. Dietary reference intakes for calcium and D. Day [place]: The National Academies Press.2. Micky MF, Yohana NC, Kennedy PAL, et al. Evaluation, treatment, and prevention of vitamin D deficiency: an Endocrine Society clinical practice guideline. JCEM. 2010; 96(7):1911-30. :08 Vitamin D Hydroxy (25125) Comments: PATIENT WAS FASTINGPERFORMED BY: [facility] [id number] Vitamin D, 25-Hydroxy 87.1 ng/mL (Normal) Range: 30.0-100.0 Comments: Vitamin D deficiency has been defined by the [place] ofMedicine and an Endocrine Society practice guideline as alevel of serum 25-OH vitamin D less than 20 ng/mL (1,2).The Endocrine Society went on to further define vitamin Dinsufficiency as a level between 21 and 29 ng/mL (2).1. IOM ([place] of Medicine). 2010. Dietary reference intakes for calcium and D. Day [place]: The National Academies Press.2. Micky MF, Yohana COBURN, Kennedy PAL, et al. Evaluation, treatment, and prevention of vitamin D deficiency: an Endocrine Society clinical practice guideline. JCEM. 2010; 96(7):1911-30. :08 LIPID PANEL (78883) Comments: PATIENT WAS FASTINGPERFORMED BY: King SolarmanSummit Oaks HospitalRlsatz5277 [facility] [id number] LDL/HDL Ratio 5.1 {ratio_units} (Abnormal) Range: 0.0-3.2 LDL Cholesterol Calc 216 mg/dL (Abnormal) Range: 0-99 Comments: Please note reference interval changePossible Familial Hypercholesterolemia. FH should be suspected whenfasting LDL cholesterol is above 189 mg/dL or non- HDL cholesterolis above 219 mg/dL. A family history of high cholesterol and heartdisease in 1st degree relatives should be collected. J Clin Scssoza0689;5:133-140 VLDL Cholesterol Rocky 47 mg/dL (Abnormal) Range: 5-40 HDL Cholesterol 42 mg/dL (Normal) Comments: According to ATP-III Guidelines, HDL-C >59 mg/dL is considered anegative risk factor for CHD. Triglycerides 237 mg/dL (Abnormal) Range: 0-149 Comments: Please note reference interval change Cholesterol, Total 305 mg/dL (Abnormal) Range: 100-199 Comments: Please note reference interval change :08 METABOLIC PANEL, Comments: PATIENT WAS FASTINGPERFORMED BY: King SolarmanSummit Oaks HospitalFfmamk0971 [facility] [id number] Information: [id number] COMPREHENSIVE (99808) ALT (SGPT) 14 [iU]/L (Normal) Range: 0-40 [...] 95 mg/dL (Normal) Range: 65-99 :25 TSH (62219) Comments: PATIENT NOT FASTINGPERFORMED BY: King SolarmanSummit Oaks HospitalIwkuew9395 [facility] [id number] Information: [id number] TSH 2.830 {uIU/mL} (Normal) Range: 0.450-4.500 :25 SED RATE ERYTHROCYTE (72023) Comments: PATIENT NOT FASTINGPERFORMED BY: [employer] Energy HoldingsCorewell Health Butterworth Hospital6370 [facility] [id number] Sedimentation Rate-Westergren 14 mm/h (Normal) Range: 0-40 :25 C-REACTIVE PROTEIN (76185) Comments: PATIENT NOT FASTINGPERFORMED BY: [employer] Energy HoldingsCorewell Health Butterworth Hospital6370 [facility] [id number] C-Reactive Protein, Quant 1.9 mg/L (Normal) Range: 0.0-4.9 :25 RHEUMATOID FACTOR-QUANT (27517) Comments: PATIENT NOT FASTINGPERFORMED BY: [facility] Yxfmyy1368 [facility] [id number] RA Latex Turbid. 8.6 {IU/mL} (Normal) Range: 0.0-13.9 06-Feb-20129:25 RENUKA (ANTINUCLEAR ANTIBODY) Comments: PATIENT NOT FASTINGPERFORMED BY: CB [facility] Ijghqy6883 [facility] [id number] (09052) RENUKA Direct Negative (Normal) :25 Creatine Kinase Total (40807) Comments: PATIENT NOT FASTINGPERFORMED BY: CB [facility] Khbwga7896 [facility] [id number] Creatine Kinase,Total,Serum 127 U/L (Normal) Range: 24-173 43-Eum-687509:38 BILAT SCRN DIGITAL & CAD Radiology Report See Note (Normal) Comments: MAMMOGRAPHY - BILATERAL SCREENING REASON FOR EXAM: Female, 66 years old. Routine annual screeningexamination. PERTINENT HISTORY: Prior left excisional biopsy. TECHNIQUE: Digital exam[place] [facility]. Med iolateral oblique (MLO) andcraniocaudad (CC) views [...] lectronically Signed GP/GP Professional Interpretation Provided By: [facility], , To consult with a radiologist regarding this report, please call our [id number] line @ Dictated on 01/01/12 1145 by Ana MONROE,FordriAngelranscribed on 01/01/12 1301 by ITS IMPORTSign by Zbigniew Carroll MD on 01/01/12 1302 Sign by: Zbigniew Carroll MD :48 Vitamin D Hydroxy (94867) Comments: PATIENT WAS FASTINGPERFORMED BY: [employer] Msnlns9022 [facility] [id number] Vitamin D, 25-Hydroxy 64.5 ng/mL (Normal) Range: 30.0-100.0 Comments: Vitamin D deficiency has been defined by the [place] ofMedicine and an Endocrine Society practice guideline as alevel of serum 25-OH vitamin D less than 20 ng/mL (1,2).The Endocrine Society went on to further define vitamin Dinsufficiency as a level between 21 and 29 ng/mL (2).1. IOM ([place] of Medicine). 2010. Dietary reference intakes for calcium and D. Day [place]: The National Academies Press.2. Micky MF, Yohana NC, Kennedy PAL, et al. Evaluation, treatment, and prevention of vitamin D deficiency: an Endocrine Society clinical practice guideline. JCEM. 2010; 96(7):1911-30. :48 CBC WITH MANUAL DIFF Comments: PATIENT WAS FASTINGPERFORMED BY: [facility] Tmuahj8755 [facility] [id number] Information: [id number] (93488) Immature Grans (Abs) 0.0 {x10E3/uL} (Normal) Range: [...] 3.80-5.10 WBC 4.2 {x10E3/uL} (Normal) Range: 4.0-10.5 38-Vah-19377:48 METABOLIC PANEL, COMPREHENSIVE Comments: PATIENT WAS FASTINGPERFORMED BY: LabCoSummit Oaks HospitalZnwbxy8708 [facility] [id number] (10752) ALT (SGPT) 16 [iU]/L (Normal) Range: 0-40 [...] Glucose, Serum 80 mg/dL (Normal) Range: 65-99 23-Rld-53618:48 LIPID PANEL (08577) Comments: PATIENT WAS FASTINGPERFORMED BY: [facility] Wxsqzp9486 [facility] [id number] LDL Cholesterol Calc 188 mg/dL (Abnormal) Range: [...] 07/13/11 1331 Sign by: Zbigniew Carroll MD 48-Sme-97745:44 Vitamin D Hydroxy (55476) Comments: PATIENT WAS FASTINGPERFORMED BY: [facility]6370 [facility] [id number] Vitamin D, 25-Hydroxy 32.1 ng/mL (Normal) Range: 30.0-100.0 Comments: Vitamin D deficiency has been defined by the [place] ofMedicine and an Endocrine Society practice guideline as alevel of serum 25-OH vitamin D less than 20 ng/mL (1,2).The Endocrine Society went on to further define vitamin Dinsufficiency as a level between 21 and 29 ng/mL (2).1. IOM ([place] of Medicine). 2011. Dietary reference intakes for calcium and D. Day [place]: The National Academies Press.2. Micky MF, Yohana COBURN, Kennedy PAL, et al. Evaluation, treatment, and prevention of vitamin D deficiency: an Endocrine Society clinical practice guideline. JCEM. 2010; 96(7):1911-30. :44 LIPID PANEL (45481) Comments: PATIENT WAS FASTINGPERFORMED BY: [employer]6370 [facility] [id number] LDL/HDL Ratio 2.2 {ratio_units} (Normal) Range: 0.0-3.2 [...] PANEL, COMPREHENSIVE Comments: PATIENT WAS FASTINGPERFORMED BY: DescomplicaSummit Oaks HospitalVysvwf3801 [facility] [id number] (42820) ALT (SGPT) 18 [iU]/L (Normal) Range: 0-40 [...] (LACTATE DEHYDROGENASE) Comments: PATIENT WAS FASTINGPERFORMED BY: [employer] [place] [id number] (96887) LDH 175 [iU]/L (Normal) Range: 0-214 :44 FOLIC ACID SERUM (33379) Comments: PATIENT WAS FASTINGPERFORMED BY: [employer]6370 [employer] [place] [id number] Folate (Folic Acid), Serum >19.9 ng/mL (Normal) Comments: Indeterminate: 2.2 - 3.0 Deficient: <2.2 :44 VITAMIN B-12 (CYANOCOBALAMIN) Comments: PATIENT WAS FASTINGPERFORMED BY: [employer]70 [employer] [place] [id number] (99675) Vitamin B12 397 pg/mL (Normal) Range: 211-946 :44 CBC WITH MANUAL DIFF Comments: PATIENT WAS FASTINGPERFORMED BY: [employer]70 [employer] [place] [id number] Information: [id number] (07026) Immature Grans (Abs) 0.0 {x10E3/uL} (Normal) Range: [...] 3.80-5.10 WBC 4.4 {x10E3/uL} (Normal) Range: 4.0-10.5 02-Qbj-560936:58 RIBS,UNI,MIN 3V,W/PA CHEST Radiology Report See Note [...] difficile Toxins Negative (Normal) Comments: PERFORMED BY: [facility] [id number] 4:58 A+B, EIA Occult Blood, Fecal, Negative (Normal) Comments: PERFORMED BY: [employer] Renew[facility] Energy HoldingsKindred Hospital Nzapng[address] [place] [address] [id number] 4:58 IA :58 Ova + Parasite Exam Comments: PERFORMED BY: [employer] [facility] Energy HoldingsCorewell [facility] Hospital[address] [place] [address] [id number] Result 1 NOCP (Normal) Comments: No ova, cysts, or parasites seen. Ova + Parasite Exam Final report (Normal) Comments: These results were obtained using wet preparation(s) and trichromestained smear. This test does not include testing for Cryptosporidiumparvum, Cyclospora, or Microsporidia. :58 Stool Culture Comments: PERFORMED BY: [employer] Renew[facility] Energy HoldingsKindred Hospital Odtixg[address] [place] [address] [id number] Information: SRC:ST E coli Shiga Toxin EIA Negative (Normal) Result 1 NCI (Normal) Comments: No Campylobacter species isolated. Campylobacter Culture Final report (Normal) Result 1 NSS (Normal) Comments: No Salmonella or Shigella recovered. Salmonella/Shigella Screen Final report (Normal) :58 White Blood Cells (WBC), Comments: PERFORMED BY: [employer] [facility] [facility] HoldingsKind[facility] Hospital Gjalna7849 [facility] [id number] Stool Result 1 NWBC (Normal) Comments: No white blood cells seen. White Blood Cells (WBC), Final report (Normal) Comments: Reference Range: None Seen Stool 84-Ukq-974864:07 VITAMIN B-12 (CYANOCOBALAMIN) Comments: PATIENT NOT FASTINGPERFORMED BY: King SolarmanSummit Oaks HospitalKqstzh9994 [facility] [id number] (34520) Vitamin B12 393 pg/mL (Normal) Range: 211-946 87-Ije-426913:07 IRON BINDING CAPACITY Comments: PATIENT NOT FASTINGPERFORMED BY: [employer] Energy HoldingsCorewell [facility] Hospital6370 [facility] [id number] Information: [id number] (TIBC) (75863) Iron Saturation 17 % (Normal) Range: 15-55 Iron, Serum 68 ug/dL (Normal) Range: 35-155 UIBC 335 ug/dL (Normal) Range: 150-375 Iron Bind.Cap.(TIBC) 403 ug/dL (Normal) Range: 250-450 82-Qht-811639:07 FERRITIN (08394) Comments: PATIENT NOT FASTINGPERFORMED BY: King SolarmanSummit Oaks HospitalNfjxzz8661 [facility] [id number] Ferritin, Serum 42 ng/mL (Normal) Range: 13-150 58-Ken-870968:29 BRAIN/HEAD WITHOUT CONTRAST Radiology Report See Note [...] DIFF Comments: PATIENT WAS FASTINGPERFORMED BY: [facility] Yoiute7229 [facility] [id number] Information: ADD [id number] AND DRAW FEE [id number] 7983 (03217) Immature Grans (Abs) 0.0 {x10E3/uL} (Normal) Range: [...] PANEL, COMPREHENSIVE Comments: PATIENT WAS FASTINGPERFORMED BY: [employer]70 [facility] [id number] (04060) ALT (SGPT) 30 [iU]/L (Normal) Range: 0-40 [...] mg/dL (Normal) Range: 65-99 :32 LIPID PANEL (85950) Comments: PATIENT WAS FASTINGPERFORMED BY: [employer]70 [facility] [id number] LDL/HDL Ratio 2.6 {ratio_units} (Normal) Range: 0.0-3.2 LDL Cholesterol Calc 118 mg/dL (Abnormal) Range: 0-99 VLDL Cholesterol Rocky 28 mg/dL (Normal) Range: 5-40 HDL Cholesterol 46 mg/dL (Normal) Comments: According to ATP-III Guidelines, HDL-C >59 mg/dL is considered anegative risk factor for CHD. Triglycerides 141 mg/dL (Normal) Range: 0-149 Cholesterol, Total 192 mg/dL (Normal) Range: 100-199 :32 TSH (76956) Comments: PATIENT WAS FASTINGPERFORMED BY: [employer]6370 [employer] [place] [id number] TSH 3.120 {uIU/mL} (Normal) Range: 0.450-4.500 :32 Vitamin D Hydroxy (53020) Comments: PATIENT WAS FASTINGPERFORMED BY: [employer]6370 [address] [facility] HospitalBitfone Corporationblin [place] [id number] Vitamin D, 25-Hydroxy 57.0 ng/mL (Normal) Range: 32.0-100.0 Comments: Effective July 24, 2011 Vitamin D, 25-Hydroxy reference intervals will be changing to 30-100. .Recent studies consider the lower li geovanny of 32.0 ng/mL to be athreshold for optimal health.Sandhu BW. J Nutr. 2004;135(2):317-. :38 Vitamin D Hydroxy (82437) Comments: PATIENT WAS FASTINGPERFORMED BY: King Solarman Eirqum5052 Rzao [facility]in [place] [id number] Vitamin D, 25-Hydroxy 59.4 ng/mL (Normal) Range: 32.0-100.0 Comments: Recent studies consider the lower limit of 32.0 ng/mL to be athreshold for optimal health.Sandhu BW. J Nutr. 2004;135(2):317-22. :38 METABOLIC PANEL, Comments: PATIENT WAS FASTINGPERFORMED BY: King Solarman Cvikjm1835 [facility]in [place] [id number] Information: [id number] COMPREHENSIVE (98502) ALT (SGPT) 14 [iU]/L (Normal) Range: 0-40 [...] mg/dL (Normal) Range: 65-99 :38 LIPID PANEL (63238) Comments: PATIENT WAS FASTINGPERFORMED BY: LabCoSummit Oaks HospitalLyklun6566 [facility] [id number]; 02/14/11 LDL Cholesterol Calc 120 mg/dL (Abnormal) Range: 0-99 LDL/HDL Ratio 2.5 {ratio_units} (Normal) Range: 0.0-3.2 HDL Cholesterol 48 mg/dL (Normal) Comments: According to ATP-III Guidelines, HDL-C >59 mg/dL is considered anegative risk factor for CHD. VLDL Cholesterol Rocky 31 mg/dL (Normal) Range: 5-40 Cholesterol, Total 199 mg/dL (Normal) Range: 100-199 Triglycerides 155 mg/dL (Abnormal) Range: 0-149 97-Vbj-518671:44 CBC With Differential/Platelet Comments: A courtesy copy of this report has been sent [phone].PATIENT WAS FASTINGPERFORMED BY: [facility] Yjqbsn9813 [facility] [id number] Information: [id number] Immature Grans (Abs) 0.0 {x10E3/uL} (Normal) Range: [...] 3.80-5.10 WBC 4.6 {x10E3/uL} (Normal) Range: 4.0-10.5 61-Joi-826379:44 Comp. Metabolic Panel (14) Comments: A courtesy copy of this report has been sent [phone].PATIENT WAS FASTINGPERFORMED BY: LabCoSummit Oaks HospitalNdiqgc7022 [facility] [id number] ALT (SGPT) 16 [iU]/L (Normal) Range: 0-40 [...] Glucose, Serum 91 mg/dL (Normal) Range: 65-99 59-Lax-399760:44 Lipid Panel With LDL/HDL Comments: A courtesy copy of this report has been sent [phone].PATIENT WAS FASTINGPERFORMED BY: King SolarmanSummit Oaks HospitalQlubyg5910 [facility] [id number] Ratio LDL Cholesterol Calc 215 mg/dL (Abnormal) [...] copy of this report has been sent [phone].PATIENT WAS FASTINGPERFORMED BY: King SolarmanSummit Oaks HospitalSuptyv3855 [facility] [id number] 1:44 Range: 32.0-100.0 Comments: Recent studies consider the lower limit of 32.0 ng/mL to be athreshold for optimal health.Edson WRIGHT. J Nutr. 2004;135(2):317-22. 89-Ulg-15385:56 BILAT SCRN DIGITAL & CAD Radiology Report See Note (Normal) Comments: Exam Number: [id number] AMMOGRAPHY - BILATERAL SCREENING INDICATION:Routine annual screening [...] attaching a ResultCode to this exam. ADDENDUM: [id number] HPBI/MDS Reported By: CLEVELAND CHAND M.D. 24-Txm-61501:26 Metabolic Panel, Comments: PATIENT WAS FASTINGPERFORMED BY: LabCoSummit Oaks HospitalLojlzr8694 [facility] [id number] Information: [id number] Comprehensive (29385) ALT (SGPT) 19 [iU]/L (Normal) Range: 0-40 [...] 91 mg/dL (Normal) Range: 65-99 :26 TSH (46711) Comments: PATIENT WAS FASTINGPERFORMED BY: [facility] Agsxvj0733 [address]in [place] [id number] TSH 3.450 {uIU/mL} (Normal) Range: 0.450-4.500 :26 Vitamin D Hydroxy (28997) Comments: PATIENT WAS FASTINGPERFORMED BY: [employer] [facility] Lmxwfx2253 [facility] [id number] Vitamin D, 25-Hydroxy 61.8 ng/mL (Normal) Range: 32.0-100.0 Comments: Recent studies consider the lower limit of 32.0 ng/mL to be athreshold for optimal health.Edson WRIGHT. J Nutr. 2004;135(2):317-22. :26 Lipid Panel (14244) Comments: PATIENT WAS FASTINGPERFORMED BY: [employer] LabMobPanelrp Epwwfc9342 [facility] [id number] Cholesterol, Total 234 mg/dL (Abnormal) Range: 100-199 [...] PANEL, Comments: PATIENT WAS FASTINGPERFORMED BY: [facility] Jqletq2087 [facility] [id number] Information: [id number] COMPREHENSIVE (02776) A/G Ratio 1.7 (Normal) Range: 1.1-2.5 Alkaline [...] (Normal) Range: 65-99 :40 HEPATIC FUNCTION PANEL (12580) Comments: PATIENT WAS FASTINGPERFORMED BY: LabCoSummit Oaks HospitalJvpgid0510 [facility] [id number] Bilirubin, Direct 0.10 mg/dL (Normal) Range: 0.00-0.40 :40 LIPID PANEL (66359) Comments: PATIENT WAS FASTINGPERFORMED BY: King SolarmanSummit Oaks HospitalLpbliz3288 [facility] [id number] LDL Cholesterol Calc 121 mg/dL (Abnormal) Range: 0-99 LDL/HDL Ratio 2.5 {ratio_units} (Normal) Range: 0.0-3.2 VLDL Cholesterol Rocky 44 mg/dL (Abnormal) Range: 5-40 HDL Cholesterol 49 mg/dL (Normal) Comments: According to ATP-III Guidelines, HDL-C >59 mg/dL is considered anegative risk factor for CHD. Triglycerides 220 mg/dL (Abnormal) Range: 0-149 Cholesterol, Total 214 mg/dL (Abnormal) Range: 100-199 :40 Vitamin D Hydroxy (07676) Comments: PATIENT WAS FASTINGPERFORMED BY: King SolarmanSummit Oaks HospitalZjwony8680 [facility] [id number] Vitamin D, 25-Hydroxy 57.9 ng/mL (Normal) Range: 32.0-100.0 Comments: Recent studies consider the lower limit of 32.0 ng/mL to be athreshold for optimal health.Edson WRIGHT. J Nutr. 2004;135(2):317-22. :22 Comp. Metabolic Panel (14) Comments: PATIENT WAS FASTINGPERFORMED BY: King SolarmanSummit Oaks HospitalKudhow4955 [facility] [id number] ALT (SGPT) 14 [iU]/L (Normal) Range: 0-40 [...] Panel (7) Comments: PATIENT WAS FASTINGPERFORMED BY: [employer]70 [facility] [id number] Bilirubin, Direct 0.10 mg/dL (Normal) Range: 0.00-0.40 :22 Lipid Panel With LDL/HDL Comments: PATIENT WAS FASTINGPERFORMED BY: [employer]70 [facility]RevM[facility] [id number] Ratio LDL Cholesterol Calc 158 mg/dL (Abnormal) [...] ng/mL (Normal) Comments: PATIENT WAS FASTINGPERFORMED BY: [facility] [id number] :22 Range: 32.0-100.0 Comments: Recent studies consider the lower limit of 32.0 ng/mL to be athreshold for optimal health.Edson WRIGHT. J Nutr. 2004;135(2):317-22. 06-Jul-20098:40 BILAT SCRN DIGITAL & CAD Radiology Report See Note (Normal) Comments: Exam Number: [id number] DIGITAL BILATERAL MAMMOGRAM Digital oblique and craniocaudal [...] mammograms werealso examined with computer-aided detection software (Oncope[employer], [employer].). Reported By: ZBIGNIEW CARROLL :39 DEXA BONE DENSITY STUDY (HP) Radiology Report See Note (Normal) Comments: Exam Number: [id number] BONE DENSITOMETRY HISTORYOsteopenia. TECHNIQUE Bone densitometry of the lumbar spine and both hips is now beingperformed. The best criteria for evaluation of osteoporosis is theT-value, which represents the comparison of the patient's bone mass gorge expected peak bone mass. For most patients, the mean T-value of C4gttvfvs L4 is used to evaluate the lumbar [...] CLEVELAND CHAND M.D. :25 Vitamin D Hydroxy (54226) Comments: PATIENT NOT FASTINGPERFORMED BY: UNYQIntiza [place] [id number] Vitamin D, 25-Hydroxy 39.8 ng/mL (Normal) Range: 32.0-100.0 Comments: Recent studies consider the lower limit of 32.0 ng/mL to be athreshold for optimal health.Edson WRIGHT. J Nutr. 2004;135(2):317-22. :25 HEPATIC FUNCTION PANEL Comments: PATIENT NOT FASTINGClinical Information: ADD DRAW FEE 701506 AND J0 8038 PERFORMED BY: [facility] [id number] (34797) Albumin, Serum 4.1 g/dL (Normal) Range: 3.6-4.8 Alkaline Phosphatase, S 78 [iU]/L (Normal) Range: 25-165 ALT (SGPT) 14 [iU]/L (Normal) Range: 0-40 AST (SGOT) 24 [iU]/L (Normal) Range: 0-40 Bilirubin, Direct 0.08 mg/dL (Normal) Range: 0.00-0.40 Bilirubin, Total 0.4 mg/dL (Normal) Range: 0.1-1.2 Protein, Total, Serum 6.8 g/dL (Normal) Range: 6.0-8.5 :25 LIPID PANEL (66937) Comments: PATIENT NOT FASTINGPERFORMED BY: [facility] [id number] Cholesterol, Total 307 mg/dL (Abnormal) Range: 100-199 HDL Cholesterol 45 mg/dL (Normal) Comments: According to ATP-III Guidelines, HDL-C >59 mg/dL is considered anegative risk factor for CHD. LDL Cholesterol Calc 224 mg/dL (Abnormal) Range: 0-99 LDL/HDL Ratio 5.0 {ratio_units} (Abnormal) Range: 0.0-3.2 Triglycerides 190 mg/dL (Abnormal) Range: 0-149 VLDL Cholesterol Rocky 38 mg/dL (Normal) Range: 5-40 23-Txi-200670:13 METABOLIC PANEL, COMPREHENSIVE Comments: PATIENT WAS FASTINGClinical Information: ADD DRAW FEE AND [id number] PERFORMED BY: LabCoSummit Oaks HospitalWbfhre0885 [facility] [id number] (68880) A/G Ratio 1.6 (Normal) Range: 1.1-2.5 Albumin, [...] Sodium, Serum 145 mmol/L (Normal) Range: 135-145 70-Tev-211032:13 TSH (69532) Comments: PATIENT WAS FASTINGPERFORMED BY: [employer] [place] [facility] [id number] TSH 2.300 {uIU/mL} (Normal) Range: 0.450-4.500 22-Hea-017164:13 HEPATIC FUNCTION PANEL Comments: PATIENT WAS FASTINGPERFORMED BY: [employer] [facility] [id number] (37434) Bilirubin, Direct 0.11 mg/dL (Normal) Range: 0.00-0.40 47-Gei-626830:13 LIPID PANEL (61177) Comments: PATIENT WAS FASTINGPERFORMED BY: [employer] K[address] [place] [address] [id number] Cholesterol, Total 303 mg/dL (Abnormal) Range: 100-199 HDL Cholesterol 54 mg/dL (Normal) Comments: According to ATP-III Guidelines, HDL-C >59 mg/dL is considered anegative risk factor for CHD. LDL Cholesterol Calc 218 mg/dL (Abnormal) Range: 0-99 LDL/HDL Ratio 4.0 {ratio_units} (Abnormal) Range: 0.0-3.2 Triglycerides 157 mg/dL (Abnormal) Range: 0-149 VLDL Cholesterol Rocky 31 mg/dL (Normal) Range: 5-40 59-Hlg-46952:17 HEPATIC FUNCTION PANEL Comments: PATIENT WAS FASTINGClinical Information: ADD DRAW FEE [id number] ADD J 95319 PERFORMED BY: Descomplica[address] [id number] (98338) Albumin, Serum 4.3 g/dL (Normal) Range: 3.6-4.8 Alkaline Phosphatase, S 75 [iU]/L (Normal) Range: 25-165 ALT (SGPT) 18 [iU]/L (Normal) Range: 0-40 AST (SGOT) 32 [iU]/L (Normal) Range: 0-40 Bilirubin, Direct 0.13 mg/dL (Normal) Range: 0.00-0.40 Bilirubin, Total 0.6 mg/dL (Normal) Range: 0.1-1.2 Protein, Total, Serum 7.0 g/dL (Normal) Range: 6.0-8.5 :17 LIPID PANEL (33683) Comments: PATIENT WAS FASTINGPERFORMED BY: [employer] Vymskj9811 [facility] [id number] Cholesterol, Total 292 mg/dL (Abnormal) Range: 100-199 [...] Panel (14) Comments: PATIENT WAS FASTINGPERFORMED BY: [employer] Qfqyos5177 [facility] [id number] A/G Ratio 1.5 (Normal) Range: 1.1-2.5 Albumin, [...] Serum 86 mg/dL (Normal) Range: 65-99 If -Fijian >59 mL/min/1.73 Comments: Note: Persistent reduction for [...] Panel (7) Comments: PATIENT WAS FASTINGPERFORMED BY: [employer] LabCoPegasus BiologicsBvlcsv9247 [facility] [id number] Bilirubin, Direct 0.11 mg/dL (Normal) Range: 0.00-0.40 :47 Lipid Panel With LDL/HDL Comments: PATIENT WAS FASTINGPERFORMED BY: [employer] [facility] Kfftuv1255 [facility] [id number] Ratio Cholesterol, Total 325 mg/dL (Abnormal) Range: [...] Cholesterol Rocky 47 mg/dL (Abnormal) Range: 5-40 07-Rte-86605:49 PELVIS WITH CONTRAST Radiology Report See Note (Normal) Comments: Exam Number: [id number] CT ABDOMEN WITHOUT AND WITH CONTRAST AND [...] or pelvis. Reported By: TITA FULLER M.D. 37-Feo-33421:48 ABDOMEN W/WO CONTRAST Radiology Report See Note (Normal) Comments: Exam Number: [id number] CT ABDOMEN WITHOUT AND WITH CONTRAST AND [...] Report See Note (Normal) Comments: Exam Number: [id number] DIGITAL SCREENING MAMMOGRAMS WITH CAD COMPARISON STUDYAugus2006 [...] mammograms werealso examined with computer-aided detection software ([employer], [employer] Reported By: TITA FULLER M.D. :30 [...] Report See Note (Normal) Comments: Exam Number: [id number] THREE VIEWS OF THE LEFT INDEX FINGER [...] Reported By: JULIO BRANCH M.D. :53 RENUKA-D [id number] RENUKA-DIRECT 27 AU/mL (Normal) Range: 0-99 Comments: [...] {IU/mL} (Normal) Range: 0.0-13.9 Comments: Performed At: [address] [id number] :53 URIC 3.4 mg/dL (Normal) Range: 2.6-6.0 [...] Report See Note (Normal) Comments: Exam Number: [id number] CT SCAN OF ABDOMEN AND PELVIS HISTORYEnlarged pancreas. Following the oral administration of contrast, scans were obtainedthrough the pancreas at 2.5-mm intervals without intraven ous contrastenhancement. With the intravenous administration of 100 mL of Ajtzoh329, scans were obtained at 2.5-mm intervals through [...] 2006. [facility] This wa s performed June [...] colonic diverticulosis. Reported By: CLEVELAND CHAND M.D. 09-Cww-65914:08 PELVIS WITH CONTRAST Radiology Report See Note (Normal) Comments: Exam Number: [id number] CT SCAN OF ABDOMEN AND PELVIS HISTORYEnlarged pancreas. Following the oral administration of contrast, scans were obtainedthrough the pancreas at 2.5-mm intervals without intraven ous contrastenhancement. With the intravenous administration of 100 mL of [id number], scans were obtained at 2.5-mm intervals through [...] 2006. [facility]. This [facility] s performed June [...] colonic diverticulosis. Reported By: CLEVELAND CHAND M.D. 16-Sso-[id number] DEXA BONE DENSITY STUDY () Radiology Report See Note (Normal) Comments: Exam Number: [id number] BONE DENSITOMETRY HISTORYOsteopenia. TECHNIQUE Bone densitometry of [...] Reported By: CLEVELAND CHAND M.D. :46 TSH (22312) Comments: PATIENT NOT FASTINGClinical Information: ADD DRAW FEE [id number] ADD J0 3378 DIFFICULT DRAW PERFORMED BY: [facility] [facility] [id number] TSH 1.980 {uIU/mL} (Normal) Range: 0.350-5.500 :46 [...] 5-40 :02 Fecal Occult Blood , Office (01552) Comments: NEG Fecal Occult Blood , Office Negative (Normal) Comments: X3 :07 BILAT SCRN DIGITAL & CAD Radiology Report See Note (Normal) Comments: Exam Number: [id number] BILATERAL SCREENING DIGITAL MAMMOGRAPHY AND CAD. REASON [...] mammograms werealso examined with computer-aided detection software ([employer] Reported By: TITA FULLER :46 COMP METABOLIC [...] 4804 5.8 mg/dL (Abnormal) Range: 4.5-5.6 :46 PTH,[id number] PTH,Intact 19 pg/mL (Normal) Range: 12-65 Comments: Performed At: [address] [id number] :36 L/S SPINE,MIN 4 VIEWS Radiology Report See Note (Normal) Comments: Exam Number: [id number] LUMBAR SPINE, 5 VIEWS HISTORYLow back spine. [...] Report See Note (Normal) Comments: Exam Number: [id number] CT OF THE ABDOMEN WITH AND WITHOUT CONTRAST AND CT OF THE PELVIS WITHCONTRAST STATEMENTFollowup of pancreas and adrenal glands. COMPARISONAbdominal CT of June 18, 2006, and [facility] of March 22, 2006. TECHNIQUEInitial [...] adrenal gland. Reported By: PRABHAKAR ROTH M.D. 81-Hbq-62784:25 PELVIS WITH CONTRAST Radiology Report See Note (Normal) Comments: Exam Number: [id number] CT OF THE ABDOMEN WITH AND WITHOUT CONTRAST AND CT OF THE PELVIS WITHCONTRAST STATEMENTFollowup of pancreas and adrenal glands. COMPARISONAbdominal CT of June 18, 2006, and [facility] of March 22, 2006. TECHNIQUEInitial [...] adrenal gland. Reported By: PRABHAKAR ROTH M.D. 85-Goj-66131:57 COMP METABOLIC A/G 1.1 {RATIO} (Normal) Range: [...] VLDL 33 mg/dL (Normal) Range: 5-40 :57 PTH,[id number] PTH,Intact 16 pg/mL (Normal) Range: 12-65 Comments: Performed At: [address] [id number] :45 BMP BUN 10 mg/dL (Normal) Range: [...] Indication: Epigastric pain Epigastric pain : Reviewed [employer] Letter Indication: Epigastric pain Hypercholesterolemia : Cholesterol [...] unspecified iron deficiency anemia type : Reviewed [employer] Letter-- colonoscopy 04/19-pelon Indication: Iron deficiency anemia, [...] Female Indication: Acute sinusitis Planned Observations CALCIFIDIOL (79040) VIT D 25Indication: Vitamin D deficiency, unspecified On: :57 Request TSH ([id number])Indication: Abnormal glucose tolerance test (Renamed from Abnormal glucose tolerance test (GTT)) On: :57 Request URINALYSIS, W/ MICRO (56979)Indication: Abnormal glucose tolerance test (Renamed from Abnormal glucose tolerance test (GTT)) On: :57 Request MICROALBUMIN: CREATININE RATIO (52920) AND (86454)Indication: Abnormal glucose tolerance test (Renamed from Abnormal glucose tolerance test (GTT)) On: :57 Request METABOLIC PANEL, COMPREHENSIVE (82020)Indication: Abnormal glucose tolerance test (Renamed from Abnormal glucose tolerance test (GTT)) On: :57 Request LIPOPROTEIN, BLD, BY NMR (02490)Indication: Hypercholesterolemia On: :57 Request CBC, PLATELETS & AUT DIFF (82580)Indication: Iron deficiency anemia, unspecified iron deficiency anemia type On: :57 Request VITAMIN B-12 (CYANOCOBALAMIN) (10703)Indication: Other dietary vitamin B12 deficiency anemia On: :56 Request IRON BINDING CAPACITY (TIBC) (11033)Indication: Iron deficiency anemia, unspecified iron deficiency anemia type On: :56 Request IRON (30716)Indication: Iron deficiency anemia, unspecified iron deficiency anemia type On: 4-Bpc-553581:56 Request FERRITIN (21871)Indication: Iron deficiency anemia, unspecified iron deficiency anemia type On: 5-Xwt-080153:56 Request Lipid Panel (92417)Indication: Hypercholesterolemia On: 18-Bnx-941473:39 Request MICROALBUMIN: CREATININE RATIO (49412) AND (45073)Indication: Abnormal glucose tolerance test (Renamed from Abnormal glucose tolerance test (GTT)) On: 0-Xov-505502:03 Request URINALYSIS (30536)Indication: Abnormal glucose tolerance test (Renamed from Abnormal glucose tolerance test (GTT)) On: 8-Zrk-833159:03 Request LYKEZ-VKUVCDOKHKV-NPOLQ (64752)Indication: Hyperlipidemia, mixed On: 9-Wnv-493854:16 Request CALCIFEDIOL (36382)Indication: Vitamin D deficiency, unspecified On: 8-Nux-998315: Request IRON (15430)Indication: Iron deficiency anemia, unspecified iron deficiency anemia type On: 94-Mmu-960365:20 Request IRON (10613)Indication: Anemia, unspecified On: 53-Afr-489603:48 Request Urine Protein Electrophoresis (UPEP) (47028)Indication: Elevated serum globulin level On: 17-Uzw-385235:48 Request MICROALBUMIN: CREATININE RATIO (68549) AND (21986)Indication: Hypercholesterolemia On: :14 Request Comments: 09/19 VITAMIN B12 AND FOLATES (49691)Indication: Hypercholesterolemia On: :14 Request Comments: 09/19 CALCIFEDIOL (39801)Indication: Hypercholesterolemia On: :14 Request Comments: 09/19 TSH (THYROID STIMULATING HORMONE) (62314)Indication: Hypercholesterolemia On: :14 Request Comments: 09/19 METABOLIC PANEL, COMPREHENSIVE (59980)Indication: Hypercholesterolemia On: :14 Request Comments: 09/19 CBC, PLATELETS & AUT DIFF (63857)Indication: Hypercholesterolemia On: :14 Request Comments: 09/19 LIPID PANEL (92221)Indication: Hypercholesterolemia On: :14 Request Comments: 09/19 LIPID PANEL (79224)Indication: Hypercholesterolemia On: :13 Request Comments: 06/18 METABOLIC PANEL, COMPREHENSIVE (12075)Indication: Hypercholesterolemia On: 37-Vjr-628535:13 Request Comments: 06/18 LIPASE (51424)Indication: Vitamin D deficiency, unspecified On: : Request Vitamin D Hydroxy (10278)Indication: Vitamin D deficiency, unspecified On: : Request METABOLIC PANEL, COMPREHENSIVE (18196)Indication: Fatty liver On: :00 Request LIPID PANEL (01707)Indication: Hypercholesterolemia On: :00 Request LIPID PANEL (57468)Indication: Hypercholesterolemia On: :33 Request METABOLIC PANEL, COMPREHENSIVE (94243)Indication: Hypercalcemia On: :33 Request Vitamin D Hydroxy (11165)Indication: Vitamin D deficiency, unspecified On: :33 Request LIPASE (66446)Indication: Abnormal blood finding On: :28 Request AMYLASE (86505)Indication: Abnormal blood finding On: :28 Request URINE MAHENDRA CULTURE-IDENTIFICATN (63081)Indication: Urinary tract infection On: 2-Rvc-158136:11 Request Comments: repeat after finishing atb LIPID PANEL (39338)Indication: Hypercholesterolemia On: :43 Request CALCIUM SERUM (74618)Indication: Hypercalcemia On: :03 Request Vitamin D Hydroxy (76502)Indication: Hypercalcemia On: :03 Request Vitamin D Hydroxy (52084)Indication: Vitamin D deficiency, unspecified On: :28 Request CBC WITH MANUAL DIFF (82105)Indication: Anemia, unspecified On: :27 Request LIPID PANEL (60464)Indication: Hypercholesterolemia On: :27 Request METABOLIC PANEL, COMPREHENSIVE (35996)Indication: Hypercalcemia On: : Request OVA & PARASITE DIR SMEAR (27896)Indication: Diarrhea On: :50 Request OCCULT BLOOD FECES SCREEN (43035)Indication: Diarrhea On: :50 Request LEUKOCYTE COUNT, FECAL (90554)Indication: Diarrhea On: 05-Idm-534842:50 Request C-DIFFICILE, STOOL (56416)Indication: Diarrhea On: 59-Mtg-012604:50 Request MAHENDRA CULTURE-STOOL (08810)Indication: Diarrhea On: 59-Ezf-164177:50 Request IRON ([id number])Indication: Anemia, unspecified On: 82-Uta-890373:25 Request Vitamin D Hydroxy (04182)Indication: Osteopenia On: :25 Request METABOLIC PANEL, COMPREHENSIVE (36331)Indication: Gastritis, acute On: :25 Request LIPID PANEL (41719)Indication: Hypercholesterolemia On: :25 Request Vitamin D Hydroxy (14548)Indication: Vitamin D deficiency, unspecified On: 30-Bpe-708676:13 Request HEPATIC FUNCTION PANEL (45039)Indication: Hypercholesterolemia On: :13 Request LIPID PANEL (18111)Indication: Hypercholesterolemia On: :13 Request HEPATIC FUNCTION PANEL (63535)Indication: Hypercholesterolemia On: :31 Request LIPID PANEL (82024)Indication: Hypercholesterolemia On: :31 Request METABOLIC PANEL, COMPREHENSIVE (84250)Indication: Hypercalcemia On: 47-Uxe-66929:16 Request HEPATIC FUNCTION PANEL (67716)Indication: Hypercholesterolemia On: :16 Request LIPID PANEL (64606)Indication: Hypercholesterolemia On: :16 Request CBC WITH MANUAL DIFF (54370)Indication: Hypercalcemia On: :20 Request TSH ([id number])Indication: Hypercalcemia On: :20 Request METABOLIC PANEL, COMPREHENSIVE (54821)Indication: Hypercalcemia On: :20 Request HEPATIC FUNCTION PANEL (17269)Indication: Hypercholesterolemia On: :19 Request LIPID PANEL (53193)Indication: Hypercholesterolemia On: :19 Request Uric Acid Blood (34041)Indication: arthritis left first digit On: :53 Request SED RATE ERYTHROCYTE (49546)Indication: arthritis left first digit On: 53-Qns-25463:53 Request C-REACTIVE PROTEIN (26611)Indication: arthritis left first digit On: :53 Request RHEUMATOID FACTOR-QUANT (84279)Indication: arthritis left first digit On: 30-Ybi-63575:53 Request RENUKA (ANTINUCLEAR ANTIBODY) (67618)Indication: arthritis left first digit On: :53 Request LIPID PANEL (31053)Indication: Hypercholesterolemia On: :06 Request HEPATIC FUNCTION PANEL (15465)Indication: Hypercholesterolemia On: :06 Request METABOLIC PANEL, COMPREHENSIVE (30752)Indication: Hypercalcemia On: 39-Oeq-599335:37 Request HEPATIC FUNCTION PANEL ([id number])Indication: Hypercholesterolemia On: 13-Tnz-454915:37 Request LIPID PANEL (91014)Indication: Hypercholesterolemia On: :37 Request METABOLIC PANEL, COMPREHENSIVE (78355)Indication: Hypercalcemia On: :40 Request HEPATIC FUNCTION PANEL (99787)Indication: Hypercholesterolemia On: :40 Request LIPID PANEL (24259)Indication: Hypercholesterolemia On: :40 Request METABOLIC PANEL, COMPREHENSIVE (33710)Indication: Hypercalcemia On: 74-Fjw-068441:08 Request HEPATIC FUNCTION PANEL (57476)Indication: Hypercholesterolemia On: 87-Cyf-120775:07 Request LIPID PANEL (93589)Indication: Hypercholesterolemia On: 16-Mor-518554:07 Request HEPATIC FUNCTION PANEL (45403)Indication: Hypercholesterolemia On: :58 Request Comments: 3 mos LIPID PANEL (38182)Indication: Hypercholesterolemia On: 58-Rfc-501741:58 Request Planned Encounters Medical; 4 Month FU - On: 04-Nov-2018 8:30 [facility] Camryn Faith DO, DO, Kathleen Planned Procedures B 12 Injection, 1000 mcg (J3420)By: On: 05-Jul-2018 Intent Camryn Faith DO, DO, Comments: 1 ml given lt dltd lot [id number] exp 12/21 Camryn DEXA SCAN AXIAL SKELETON (56518)By: On: 24-Apr-2018 Intent Camryn Faith DO, DO, Kathleen ABDOMINAL ULTRASOUND, LIMITED On: 10-Apr-2018 Intent (96541)By: Camryn Faith DO, DO, Kathleen ELECTROCARDIOGRAM, COMPLETE (ECG) On: 10-Apr-2018 Intent (04949)By: Camryn Faith DO Comments: nsr no acute chg Camryn Faith DO Nuclear Stress Test/Stress On: 10-Apr-2018 Intent SPECT/TreadmillBy: Camryn Faith DO, DO, Kathleen Echo CompleteBy: Marcell YEE, On: 10-Apr-2018 Intent Camryn Dykes DO ELECTROCARDIOGRAM, COMPLETE (ECG) On: 05-Dec-2017 Intent (02113)By: Camryn Faith DO Comments: nsr no acute chg Camryn Faith DO DEXA SCAN AXIAL SKELETON (07168)By: On: 05-Dec-2017 Intent Camryn Faith DO, DO, Kathleen US DOPPLER CAROTID BILATERAL On: 05-Dec-2017 Intent (72121)By: Camryn Faith DO, DO, Kathleen ELECTROCARDIOGRAM, COMPLETE (ECG) On: 03-Aug-2017 Intent (98723)By: Camryn Faith DO Comments: nsr no acute chg Camryn Faith DO US DOPPLER CAROTID BILATERAL On: 03-Aug-2017 Intent (60234)By: Camryn Faith DO, DO, Kathleen Flu Vaccine (Quadrivalent) 40381Gb: On: 11-Jun-2017 Intent Camryn Faiht DO, DO, Comments: QUAD flu shotlot number: [id number]: 12/2017L 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 Camryn B 12 Injection, 1000 mcg (J3420)By: On: 03-May-2017 Intent Camryn Faith DO, DO, Comments: 1 ml given rt arm lot [id number] exp 10/22 Camryn MAMMOGRAM, BOTH SIDES (08026)By: On: 05-Dec-2016 Intent Camryn Faith DO, DO, Comments: due after 02/14/17 Camryn Ultrasound - Abdomen Complete & On: 26-Apr-2016 Intent PelvisBy: Royal Perea MD DEXA SCAN AXIAL SKELETON (25105)By: On: 25-Jan-2016 Intent Kylie Haywood DO MAMMOGRAM, SCREENING, BOTH BREAST On: 25-Jan-2016 Intent (11634)By: Kylie Haywood DO Cartoid DopplerBy: Yobany YEE Kylie A On: 25-Jan-2016 Intent Radiology - Lumbar SpineBy: Fast On: 22-Oct-[address] - Abdomen (IV Contrast On: 22-Oct-2015 Intent Needed)By: Kylie Haywood DO Flu Vaccine (Quadrivalent) 59940Cq: On: 25-Jun-2015 Intent Itzel Boucher LPN Comments: Lot #Lot #[id number]-L dltd, IMDose prefilled syringeVIS and ABN signedgiven by:DERRICK mahmood MAMMOGRAM, SCREENING, BOTH BREAST On: 09-Feb-2015 Intent (62196)By: Kylie Haywood DO Cartoid DopplerBy: Kylie Haywood DO On: 09-Feb-2015 Intent IMMUNIZ ADMNIN, 1 VAC, SNGL/COMBO On: 25-Jun-2014 Intent (68566)By: Magdalena Leroy ZOSTER VACC, [place] (02903)By: Mariaa, On: 25-Jun-2014 Intent Magdalena EKG (59602)By: Kylie Haywood DO On: 19-May-2014 Intent Comments: ekg showed normal sinus rhythym, normal axis, no acute st/t wave changes MAMMOGRAM, SCREENING, BOTH BREASTS On: 06-Jan-2014 Intent (97846)By: Kylie Haywood DO Eprescribed prescriptions On: 06-Jan-2014 Intent (G8553)By: Kylie Haywood DO Xxslfvsza-Koj-Boyv (04632)By: Yobany On: 14-Oct-2013 Intent Kylie YEE Pelvic and Breast, Medicare On: 14-Oct-2013 Intent (G0101)By: Kylie Haywood DO A Eprescribed prescriptions On: 08-Sep-2013 Intent (G8553)By: Magdalena Leroy ADMINISTRATION OF INFLUENZA VIRUS On: 09-Jun-2013 Intent VACCINE (G0008)By: Kim MEZA, Comments: Lot:[id number]:0.5mLSite: L Dltd, IMGiven by: DERRICK SilvermanVIS signed Shayla FLU VAC, SPLIT, >3 YEARS, INTRAMUSC On: 09-Jun-2013 Intent (11987)By: Shayla Alvarez LPN Spirometry (88511)By: Mariaa, On: 13-May-2013 Intent Magdalena Comments: good effort and curve normal EKG (16128)By: Kylie Haywood DO On: 13-May-2013 Intent Comments: ekg showed normal sinus rhythym, normal axis, no acute st/t wave changes DXA, BONE DENSITY, AXIAL SKELETON On: 13-May-2013 Intent (83698)By: Kylie Haywood DO Comments: alexus Eprescribed prescriptions On: 13-May-2013 Intent (G8553)By: Magdalena Leroy Eprescribed prescriptions On: 25-Apr-2013 Intent (G8553)By: Alicia Shaffer Ultrasound - Abdomen Complete & On: 22-Apr-2013 Intent PelvisBy: Purnima VALLE, Merle Eprescribed prescriptions On: 22-Apr-2013 Intent (G8553)By: Alicia Shaffer PNEUM VAC ADLT/IMUMNOSPR, SBC/INTRM On: 10-Jan-2013 Intent (15680)By: Kylie Haywood DO Comments: lot: [id number]: 03/06/14site/route: L deltoid/IMamt: 0.5mlVIS signed when applicable: OSCAR Liu ADMINISTRATION OF PNEUMOCOCCAL On: 10-Jan-2013 Intent VACCINE (G0009)By: Kylie Haywood DO Ultrasound - Abdomen CompleteBy: On: 16-Dec-[address] - AbdomenBy: Kylie Haywood DO On: 13-Dec-2012 Intent MAMMOGRAM, SCREENING, BOTH BREASTS On: 13-Dec-2012 Intent (40400)By: Kylie Haywood DO EKG (90092)By: Magdalena Leryo On: 06-Feb-2012 Intent Comments: ekg showed normal sinus rhythym, normal axis, no acute st/t wave changes TDAP VACCINE >7 IM (95252)By: Yobany On: 04-Jul-2011 Intent Kylie YEE Comments: Lot #[id number] arm, IMSite- Dose prefilledgiven by:Ale DXA, BONE DENSITY, AXIAL SKELETON On: 04-Jul-2011 Intent (76433)By: Kylie Haywood DO Spirometry (10216)By: Yobany YEE, On: 13-Jun-2011 Intent Kylie Farris Comments: good effort and curv enormal Mjvvnvwlg-Dky-Ksjdl (40088)By: Yobany On: 13-Jun-2011 Intent Kylie YEE Radiology - Chest- PA and LatBy: On: 13-Jun-2011 Intent Kylie Haywood DO MAMMOGRAM, SCREENING, BOTH BREASTS On: 13-Jun-2011 Intent (20862)By: Kylie Haywood DO Comments: nov Cartoid DopplerBy: Kylie Haywood DO On: 13-Jun-2011 Intent FLU VAC, SPLIT, >3 YEARS, INTRAMUSC On: 13-Jun-2011 Intent (33829)By: Magdalena Leroy Comments: Lot #:[id number] date:03/02/12Amount given:0.5mlRoute: IMSite given:left deltGiven by: PARIS Silver TD Injection , IM (93024)By: On: 13-Jun-2011 Intent Magdalena Leroy Comments: received in 1999 ADMINISTRATION OF INFLUENZA VIRUS On: 13-Jun-2011 Intent VACCINE (G0008)By: Magdalena Leroy CT - Brain/HeadBy: Kylie Haywood DO On: 19-Apr-2011 Intent Comments: stat call wet read EKG (61815)By: Magdalena Leroy On: 01-Nov-2010 Intent Comments: ekg showed normal sinus rhythym, normal axis, no acute st/t wave changes FLU VAC, SPLIT, >3 YEARS, INTRAMUSC On: 17-Jun-2010 Intent (42234)By: Magdalena Leroy Comments: Lot #: [id number] date: mount given: 0.5 mlRoute: IMSite given: left deltoidGiven by: Brenton Castillo RN MAMMOGRAM, SCREENING, BOTH BREASTS On: 17-Jun-2010 Intent (01326)By: Kylie Haywood DO ADMINISTRATION OF INFLUENZA VIRUS On: 17-Jun-2010 Intent VACCINE (G0008)By: Magdalena Leroy EKG (58552)By: Magdalena Leroy On: 27-Jul-2009 Intent Comments: ekg showed normal sinus rhythym, normal axis, no acute st/t wave changes MAMMOGRAM, SCREENING, BOTH BREASTS On: 27-Apr-2009 Intent (23983)By: Kylie Haywood DO A DXA, BONE DENSITY, AXIAL SKELETON On: 27-Apr-2009 Intent (48223)By: Se Haywood DOa A Comments: oct Nerve ConductionBy: Se Haywood DOa On: 23-Oct-2008 Intent A Comments: upper ext EMGBy: Se Haywood DOa A On: 23-Oct-2008 Intent Comments: upper ext CT - Abdomen & PelvisBy: Yobany YEE, On: 23-Jun-2008 Intent Kylie A FLU VAC, SPLIT, >3 YEARS, INTRAMUSC On: 23-Jun-2008 Intent (93110)By: Magdalena Leroy IMMUNIZ ADMNIN, 1 VAC, SNGL/COMBO On: 23-Jun-2008 Intent (69807)By: Magdalena Leroy EKG (85797)By: Magdalena Leroy On: 23-Jun-2008 Intent Comments: ekg showed normal sinus rhythym, normal axis, no acute st/t wave changes EKG (96504)By: Kylie Haywood DO A On: 25-Jun-2007 Intent Comments: ekg showed normal sinus rhythym, normal axis, no acute st/t wave changes CT - Abdomen & PelvisBy: Yobany YEE, On: 25-Jun-2007 Intent Kylie A DXA, BONE DENSITY, AXIAL SKELETON On: 25-Jun-2007 Intent (15449)By: Kylie Haywood DO A IMMUNIZ ADMNIN, 1 VAC, SNGL/COMBO On: 25-Jun-2007 Intent (25040)By: Se Haywood DOa A FLU VAC, SPLIT, >3 YEARS, INTRAMUSC On: 25-Jun-2007 Intent (93017)By: Se Haywood DOa A Comments: given in left deltoid, 0.5cc, lot#[id number], exp.03.02.08 WF Pneumovax (59069)By: Yobany YEE, On: 25-Jun-2007 Intent Kylie A Comments: given in right deltoid, 0.5cc, lot#[id number], exp.07.14.08 WF EKG (12157)By: Magdalena Leroy On: 25-Mar-2007 Intent Comments: ekg [...] The patient does have durable power of civil rights attorney and living will. The patient has [...] The patient does have durable power of civil rights attorney and living will. The patient has [...] The patient does have durable power of civil rights attorney and living will. The patient has noticed nothing from the geriatic de pression scale. Other providers contributing to the patient's care are gastrologist and wind farm electrical systems designer., [ADDITIONAL REASON] Well Women Exam - The [...] up she is exercising and joined the [facility]- she is working on diet too- [...] Patient has been compliant with instructions. 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
--- OUTSIDE RECORDS SUMMARY | 2018-09-29 08:27 | XMS RPT_ITS ---
:1945 Author Organization OHIP Support Name Relationship Address Phone AYAAN OCTAVIA Unavailable [address] + [address] [place] [address] R Unavailable Unavailable Unavailable GUPTA, KAMRYN Unavailable [address] + [place] [address] OCTAVIA BROWN Unavailable [address] + [address] [place] [address] R Unavailable Unavailable Unavailable GUPTA, KAMRYN Unavailable [address] + [place] [address] OCTAVIA BROWN Unavailable [address] + [address] [place] [address] R Unavailable Unavailable Unavailable GUPTA, KAMRYN Unavailable [address] + [place] [address] OCTAVIA BROWN Unavailable [address] + [address] [place] [address] R Unavailable Unavailable Unavailable GUPTA, KAMRYN Unavailable [address] + [place] [address] OCTAVIA BROWN Unavailable [address] + [address] [place] [address] R Unavailable Unavailable Unavailable GUPTA, KAMRYN Unavailable [address] + [place] [address] OCTAVIA BROWN Unavailable [address] + [address] [place] [address] R Unavailable Unavailable Unavailable GUPTA, KAMRYN Unavailable [address] + [place] [address] OCTAVIA BROWN Unavailable [address] + [address] [place] [address] R Unavailable Unavailable Unavailable GUPTA, KAMRYN Unavailable [address] + [place] [address] OCTAVIA BROWN Unavailable [address] + [address] [place] [address] R Unavailable Unavailable Unavailable GUPTA, KAMRYN Unavailable [address] + [place] [address] OCTAVIA BROWN Unavailable [address] + [address] [place] [address] R Unavailable Unavailable Unavailable GUPTA, KAMRYN Unavailable [address] + [place] [address] OCTAVIA BROWN Unavailable [address] + [address] [place] [address] R Unavailable Unavailable Unavailable GUPTA, KAMRYN Unavailable [address] + [place] [address] OCTAVIA BROWN Unavailable [address] + [address] [place] [address] R Unavailable Unavailable Unavailable GUPTA, KAMRYN Unavailable [address] + [place] [address] OCTAVIA BROWN Unavailable [address] + [address] [place] [address] R Unavailable Unavailable Unavailable GUPTA, KAMRYN Unavailable [address] + [place] [address] OCTAVIA BROWN Unavailable [address] + [address] [place] [address] R Unavailable Unavailable Unavailable GUPTA, KAMRYN Unavailable [address] + [place] [address] OCTAVIA BROWN Unavailable [address] [facility] + [address] [place] [address] R Unavailable Unavailable Unavailable GUPTA, KAMRYN Unavailable [address] + [place] [address] OCTAVIA BROWN Unavailable [address] + [address] [place] [address] R Unavailable Unavailable Unavailable GUPTA, KAMRYN Unavailable [address] + [place] [address] OCTAVIA BROWN Unavailable [address] + [address] [place] [address] R Unavailable Unavailable Unavailable GUPTA, KAMRYN Unavailable [address] + [place] [address] OCTAVIA BROWN Unavailable [address] + [address] [place] [address] R Unavailable Unavailable Unavailable GUPTA, KAMRYN Unavailable [address] + [place] [address] OCTAVIA BROWN Unavailable [address] + [address] [place] [address] R Unavailable Unavailable Unavailable GUPTA, KAMRYN Unavailable [address] + [place] [address] OCTAVIA BROWN Unavailable [address] + [address] [place] [address] R Unavailable Unavailable Unavailable GUPTA, KAMRYN Unavailable [address] + [place] [address] OCTAVIA BROWN Unavailable [address] + [address] [place] [address] R Unavailable Unavailable Unavailable GUPTA, KAMRYN Unavailable [address] + [place] [address] OCTAVIA BROWN Unavailable [address] + [address] [place] [address] R Unavailable Unavailable Unavailable GUPTA, KAMRYN Unavailable [address] + [place] [address] OCTAVIA BROWN Unavailable [address] + [address] [place] [address] R Unavailable Unavailable Unavailable GUPTA, KAMRYN Unavailable [address] + [place] [address] Care Team Providers Name Role Phone CELINE RANDALL Car Attending Unavailable RAY, LILLI Referring Unavailable RAY, LILLI Referring Unavailable RAY, LILLI Attending Unavailable CEBULCORTEZ Referring Unavailable Vellanki, Sybil Attending Unavailable Vellanki, Sybil Referring Unavailable Marcell, Camryn Primary Care Unavailable Vellanki, Sybil Attending Unavailable Vellanki, Sybil Referring Unavailable Marcell, Camryn Primary Care Unavailable Marcell, Camryn Attending Unavailable Marcell, Camryn Referring Unavailable Marcell, Camryn Primary Care Unavailable Vellanki, Sybil Attending Unavailable Vellanki, Sybil Referring Unavailable Marcell, Camryn Primary Care Unavailable MonroeLawanda Attending Unavailable Marcell, Camryn Referring Unavailable Marcell, Camryn Primary Care Unavailable MonroeLawanda Attending Unavailable Monroe, Lawanda Referring Unavailable Marcell, Camryn Primary Care Unavailable Vellanki, Sybil Attending Unavailable Vellanki, Sybil Referring Unavailable Marcell, Camryn Primary Care Unavailable Vellanki, Sybil Attending Unavailable Vellanki, Sybil Referring Unavailable Marcell, Camryn Primary Care Unavailable Marcell, Camryn Attending Unavailable Marcell, Camryn Referring Unavailable Marcell, Camryn Primary Care Unavailable Cebul Cortez Attending Unavailable Marcell, Camryn Referring Unavailable Marcell, Camryn Primary Care Unavailable Cebul, Cortez Attending Unavailable Cebul, Cortez Referring Unavailable Marcell, Camryn Primary Care Unavailable Pino Jang Referring Unavailable Marcell, Camryn Primary Care Unavailable Marcell, Camryn Attending Unavailable Cebul, Cortez Attending Unavailable Cebul, Cortez Referring Unavailable Marcell, Camryn Primary Care Unavailable Julio Cote Attending Unavailable Marcell, Camryn Referring Unavailable Marcell, Camryn Attending Unavailable Marcell, Camryn Referring Unavailable Marcell, Camryn Primary Care Unavailable Cebul Cortez Attending Unavailable Marcell, Camryn Referring Unavailable Sanchez PA-CKay Attending Unavailable Sanchez PA-C, Kay Referring Unavailable Marcell, Camryn Primary Care Unavailable Eduardo Adams Attending Unavailable CalabrettaEduardo Referring Unavailable Marcell, Camryn Primary Care Unavailable Vellanki, Sybil Attending Unavailable Vellanki, Sybil Referring Unavailable Marcell, Camryn Primary Care Unavailable Cortez Bird Attending Unavailable Cortez Bird Attending Unavailable Camryn Faith Referring Unavailable Carmine Reddy Attending Unavailable Camryn Faith Referring Unavailable Camryn Faith Primary Care Unavailable PROBLEMS PROBLEMS DATE TYPE CONDITION / CODE ATTENDING STATUS SOURCE 08/13/2018 Unknown 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 / Community M06.4(ICD-10) Hospital Repository 08/13/2018 Unknown Z79.899 - Other long Vellanki, Sybil Active [facility] term (current) drug Community therapy / Hospital Z79.899(ICD-10) Repository 08/13/2018 Unknown M79.7 - Fibromyalgia Vellanki, Sybil Active [facility] / M79.7(ICD-10) Community Hospital Repository 08/13/2018 Unknown M15.9 - Vellanki, 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, Community unspecified / Hospital M15.9(ICD-10) Repository 08/13/2018 Unknown 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, 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 / M17.0(ICD-10) Repository 05/27/2015 Active Epigastric pain / RANDALL BERGER Active [facility] R10.13(ICD-10) [facility] [place] Repository 07/03/2018 Active Gastro-esophageal RANDALL BERGER Active [facility] reflux disease [facility] without esophagitis / [place] K21.9(ICD-10) Repository 07/03/2018 Active Unknown / RAY LILLI Active [facility] UNK(Unknown) [facility] [place] Repository 06/10/2018 Unknown 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, 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, right Community ankle and foot / Hospital M19.071(ICD-10) Repository 06/10/2018 Unknown K76.0 - Fatty (change Vellanki, Sybil Active [facility] of) liver, not Community elsewhere classified Hospital / K76.0(ICD-10) Repository 06/10/2018 Unknown K21.9 - Vellanki, Sybil Active [facility] Gastro-esophageal Community reflux disease Hospital without esophagitis / Repository K21.9(ICD-10) 06/10/2018 Unknown M47.896 - Other Vellanki, Sybil Active [facility] spondylosis, lumbar Community region / Hospital M47.896(ICD-10) Repository 06/10/2018 Unknown H33.001 - Unspecified Sybil Gill Active [facility] retinal detachment Community with retinal break, Hospital right eye / Repository H33.001(ICD-10) 06/10/2018 Unknown E78.5 - Sybil Gill Active [facility] Hyperlipidemia, Community unspecified / Hospital E78.5(ICD-10) Repository 06/10/2018 Unknown F41.9 - Anxiety Sybil Gill Active [facility] disorder, unspecified Community / F41.9(ICD-10) Hospital Repository 05/23/2018 Unknown N95.9 - Unspecified Marcell, Active [facility] menopausal and Camryn Community perimenopausal Hospital disorder / Repository N95.9(ICD-10) 06/18/2018 Unknown K44.9 - Diaphragmatic Cebul, Cortez Active [facility] hernia without Community obstruction or Hospital gangrene / Repository K44.9(ICD-10) 06/18/2018 Unknown K21.0 - CebulCortez Active [facility] Gastro-esophageal Community reflux disease with Hospital esophagitis / Repository K21.0(ICD-10) 06/18/2018 Unknown K29.50 - Unspecified Cebul, Cortez Active [facility] chronic gastritis Community without bleeding / Hospital K29.50(ICD-10) Repository 06/18/2018 Unknown Z12.11 - Encounter CebulCortez Active [facility] for screening for Community malignant neoplasm of Hospital colon / Repository Z12.11(ICD-10) 06/18/2018 Unknown K57.30 - Cebul, Cortez Active [facility] Diverticulosis of [facility] large intestine Hospital without perforation Repository or abscess without bleeding / K57.30(ICD-10) 04/30/2018 Unknown R10.13 - Epigastric CebulCortez Active [facility] pain / R10.13(ICD-10) Community Hospital Repository 04/25/2018 Unknown R06.02 - Shortness of Cebul, Cortez Active [facility] breath / Community R06.02(ICD-10) Hospital Repository 04/25/2018 Unknown Z12.10 - Encounter CebulCortez Active [facility] for screening for Community malignant neoplasm of Hospital intestinal tract, Repository unspecified / Z12.10(ICD-10) 2018 Unknown R06.09 - Other forms Moodispaw, Julio Active [facility] of dyspnea / Community R06.09(ICD-10) Hospital Repository 01/29/2018 Unknown Z12.31 - Encounter JorgeLawanda quiroz Active [facility] for screening Community mammogram for Hospital malignant neoplasm of Repository breast / Z12.31(ICD-10) 01/29/2018 Unknown N64.4 - Mastodynia / Monroe, Lawanda Active [facility] N64.4(ICD-10) [facility] Repository 01/29/2018 Unknown N63.10 - Unspecified Jorge, Lawanda Active [facility] lump in the right Community breast, unspecified Hospital quadrant / Repository N63.10(ICD-10) 01/29/2018 Unknown Z01.411 - Encounter MonroeLawanda quiroz Active [facility] for gynecological Community examination (general) Hospital (routine) with Repository abnormal findings / Z01.411(ICD-10) 01/29/2018 Unknown N95.2 - MonroeLawanda Active [facility] Postmenopausal Community atrophic vaginitis / Hospital N95.2(ICD-10) Repository 12/25/2017 Unknown I65.23 - Occlusion Marcell, Active [facility] and stenosis of [facility] bilateral carotid Hospital arteries / Repository I65.23(ICD-10) 12/25/2017 Unknown Z78.0 - Asymptomatic Marcell, Active [facility] menopausal state / [facility] Z78.0(ICD-10) Hospital Repository PROCEDURES PROCEDURES No Procedure Records FoundRESULTS RESULTS 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 OFFICE VISIT Observed: 09/09/2018 Status: F Source: [place] REPORT 12:48 PM [facility] REPOSITORY [facility] [address] [place] [address] [address] [place] [address] OFFICE VISIT Date of Service: 01/29/18 MR#: [id number] Acct: [id number] Name: BRANDIE BROWN Rk Rep #: [id number] : 1945 Provider: CHIQUIS Patel Age/Sex: 72/F Location: [facility] Status: Signed with Addenda ADDENDUM by CHIQUIS Patel on 09/09/18 at 1248 Addendum entered and electronically signed by JOEL Hardwick 09/09/18 12:48: Rectal exam was deferred. No masses palpated Assessment AND Plan Problems 1. Encounter for gynecological examination with abnormal finding Z01.411 2. Mass of right breast N63.10 3. Mastodynia of right breast N64.4 4. Atrophic vaginitis N95.2 Plan - JOEL Hardwick Completed breast and pelvic exam Reviewed diet and exercise Pap NA Mammogram bilateral diagnostic with right ultrasound Colonoscopy up to date Bone density do not see in hospital records, she thought was done at [facility]. Will check [facility] records also. RTO 1 year, prn with problems Lawanda Patel RETAIL ADVERTISING SALES MANAGER Orders Orders: Medications New: estradiol 0.01%(0.1mg/gram) (Estrace) pea sized amount VAGINAL twice a week; 42.5 grams 2 RF 09/09/18 1248 <Electronically signed by Lawanda MALDONADO> Date Lawanda Patel cc: * Signed Intake Vital Signs01/29/18 Height 5 ft 1 in 01/29/18 Weight: 147 lb 6 oz 01/29/18 Body Mass Index (BMI) 27.8 01/29/18 Blood Pressure 131/74 Intake Visit Reasons: WELLNESS CHECK Chief Complaint: est annual Inspector Elevators Required: No Is patient in pain?: Yes Allergies erythromycin base Allergy (Verified 01/29/18 08:04) Rash ibuprofen [From Motrin] Allergy (Verified 01/29/18 08:04) Rash dicyclomine HCl [From Bentyl] Adverse Reaction (Verified 01/29/18 08:04) Nausea nitrofurantoin Adverse Reaction (Verified 01/29/18 08:04) Nausea Sulfa (Sulfonamide Antibiotics) Adverse Reaction (Verified 01/29/18 08:04) Nausea Medications traMADol [Ultram] 100 mg PO BID 09/30/13 [History Confirmed 01/29/18] Bergamot [Nyack Bergamot] 02/12/17 [History Confirmed 01/29/18] Cyanocobalamin (Vitamin B-12) [B-12] 2,000 mcg PO DAILY 02/12/17 [History Confirmed 01/29/18] Duloxetine HCl 60 mg PO DAILY 02/12/17 [History Confirmed 01/29/18] Folic Acid 2 mg PO DAILY 02/12/17 [History Confirmed 01/29/18] busPIRone [Buspar] 15 mg PO BID 02/12/17 [History Confirmed 01/29/18] Esomeprazole Magnesium [Nexium 24Hr] 22.3 mg PO BID 03/14/17 [History Confirmed 01/29/18] aspirin 81 mg chewable tablet 81 mg PO QDAY 01/29/18 [History Confirmed 01/29/18] cholecalciferol (vit D3) 1,000 unit-vitamin K2 (MK4) 100 mcg tablet 1 tab PO QDAY 01/29/18 [History Confirmed 01/29/18] estradiol 0.01% (0.1 mg/gram) vaginal cream See Label Instructions VAGINAL .COMPLEX #42.5 g 01/29/18 [Rx Confirmed 01/29/18] ferrous sulfate 324 mg (65 mg iron) tablet,delayed release 324 mg PO QDAY tab 01/29/18 [History Confirmed 01/29/18] metformin ER 500 mg tablet,extended release 24 hr 500 mg PO QDAY 01/29/18 [History Confirmed 01/29/18] Is last menstrual period known: No Post menopausal: Yes Patient : No [facility] History Anxiety (Acute) Arthritis (Acute) Diverticula of colon (Acute) Family History Mother CVA (cerebral vascular accident) Social History Smoking Status: Never smoker alcohol intake: never substance use type: does not use caffeine: Yes what type of physical activity do you participate in: none seatbelt use: always do you feel safe at home: Yes additional social history: Octavia- Both are retired Pregancy History 2 Elective abortions Hx Para 2 Spontaneous abortions Past Pregnancies Del. DatName GA/WeeksOutcome Route [facility] Carmencita Campos LgAnestheLazaroel LocaProviderFOB e ht en ia tn Unknown 1965 Lisa nda Unknown 1969 Bartolo hard HPI WELLNESS CHECK: Details: BRANDIE BROWN is a 72 year old who [...] of breath with activity GI GI: Denies abdominal pain, constipation, change in stools, vomiting or bloating : Reports as per HPI; denies urinary frequency, pelvic pain, urinary urgency, vaginal discharge, vaginal itching, urinary incontinence or difficulty urinating Exam Const General: cooperative, healthy appearing, no acute distress, well developed Orientation: alert, oriented to person, oriented to place HENMT Head: normal to inspection Neck Neck: normal visual inspection Thyroid: thyroid normal Lymphatic: no lymphadenopathy noted Chest Breast inspection: normal inspection of the breasts, normal inspection of the axillae Breast palpation: normal palpation of the breasts (left), normal palpation of the axillae (bilateral), no axillary lymphadenopathy (bilateral), abnormal palpation of the breast right: mass mobile and cystic Other: 7:00 position, 3cm from areola Resp Effort AND Inspection: normal respiratory effort Auscultation: clear to auscultation bilaterally Cardio Rate: regular rate Rhythm: regular rhythm GI Palpation: soft, nontender, no masses Rectal Exam: mass, deferred External [...] adnexae non-tender, pelvic support normal Pelvic Support: normal Neuro General: alert, oriented x3 Psych Affect: normal affect Assessment AND Plan Problems 1. Encounter for gynecological examination with abnormal finding Z01.411 2. Mass of right breast N63.10 3. Mastodynia of right breast N64.4 4. Atrophic vaginitis N95.2 Plan Completed breast and pelvic exam Reviewed diet and exercise Pap NA Mammogram bilateral diagnostic with right ultrasound Colonoscopy up to date Bone density do not see in hospital records, she thought was done at [email or web address]. Will check [facility] records also. RTO 1 year, prn with problems Lawanda Patel RETAIL ADVERTISING SALES MANAGER Orders Orders: Medications New: Coding Level of Care Code Pelvic/Breast Diagnoses Encounter for gynecological examination with abnormal finding Z01.411 Gynecological examination findings: abnormal findings PRESENT Mass of right breast N63.10 Mastodynia of right breast N64.4 Atrophic vaginitis N95.2 01/29/18 0858 <Electronically signed by Lawanda Patel NP-C> Date Lawanda Patel TECH ED/WOODSHOP TEACHER-C Cosigner Signature: Date (if applicable) CC: CBC W/DIFF, AUTOMATED Collected: 08/13/2018 Status: F Source: [place] 9:23 AM [facility] REPOSITORY TYPE CODE TESTS RESULT OUT OF RANGE REFERENCE UNITS LAB L100.1000 4.4-11.0 K/mm3 Normal WBC 4.9 LAB L100.1200 4.2-5.4 M/mm3 Low RBC 4.00 LAB L100.1300 12.0-15.0 g/dl Normal HGB 12.4 LAB L100.1400 37-47 % Normal HCT 39.3 LAB L100.1500 81-99 fL Normal MCV 98.3 LAB L100.1600 27.0-32.0 pg Normal MCH 31.0 LAB L100.1700 32-36 g/gl Low MCHC 31.6 LAB L100.1810 11.6-14.6 % High RDW CV 14.8 LAB L100.1820 35.1-43.9 fl High RDW SD 53.1 LAB L100.1900 150-450 K/mm3 Normal PLT 355 LAB L100.2000 6.2-12.0 fl Normal MPV 9.2 LAB L100.2100 47-70 % High NEUT% 73.4 LAB L100.2200 19-41 % Low LY% 13.8 LAB L100.2300 0-10 % High MONO% 11.0 LAB L100.2400 0-5 % Normal EO% 1.2 LAB L100.2500 0-1 % Normal BASO% 0.4 LAB L100.2550 0.0-0.9 % Normal IM GRAN % 0.200 Result Comment: IG% - Immature Granulocytes (promyelocytes, myelocytes and metamyelocytes) > 1% indicates that a LEFT SHIFT is Present. LAB L100.2620 2.0-7.7 X10 3/uL Normal Absolute Neut 3.6 LAB L100.2720 0.83-4.51 X10 3/ul Low Absolute Lymph 0.68 Performed By: #### L100.0100 #### [facility] [address] [place], [address] COMPREHENSIVE METABOLIC Collected: 08/13/2018 Status: F Source: [facility] 9:23 AM [facility] REPOSITORY TYPE CODE TESTS RESULT OUT OF RANGE REFERENCE UNITS LAB L501.0100 74-106 mg/dL Normal GLU 96 Result Comment: Please note revised GLUCOSE reference range effective 2017. LAB L501.1000 7-18 mg/dL Normal BUN 12 LAB L501.1100 0.55-1.02 mg/dL Normal CREAT,SERUM 0.96 Result Comment: The validity of the calculated GFR AND GFRAA in patients over 70 years has not been determined. Clinical correlation is essential. LAB L501.1110 >60 mL/min Normal EST GFR 60 Result Comment: Non- GFR Calc LAB L501.1115 >60 mL/min Normal EST GFR - AA 73 Result Comment: GFR Calc LAB L501.1300 10-20 RATIO Normal BUN/CRE 12.5 LAB L501.1500 6.4-8.2 g/dL T Normal PROT 7.7 LAB L501.1800 3.2-5.0 g/dL Normal ALB 3.9 LAB L501.1950 2.2-4.2 g/dL Normal GLOB 3.8 LAB L501.2000 0.9-2.4 RATIO Normal A/G 1.0 LAB L501.2200 8.5-10.1 mg/dL CA Normal 9.6 LAB L501.4100 15-37 U/L Normal AST 28 LAB L501.4305 45-117 U/L Normal ALK P 108 LAB L501.4405 13-56 U/L Normal ALT 29 LAB L501.4600 0.20-1.00 mg/dL T Normal BILI 0.50 LAB L501.5300 136-145 mmol/L NA Normal 140 LAB L501.5600 3.5-5.1 mmol/L K Normal 4.0 LAB L501.5900 98-107 mmol/L CL Normal 105 LAB L501.6100 21.0-32.0 mmol/L Normal CO2 30.0 LAB L501.6200 5-15 Normal GAP 5 Performed By: #### L500.4050 #### [facility] [address] [place], [address] CNCO Observed: 07/11/2018 Status: COMPLETED Source: [place] 12:[address] [facility] REPOSITORY Letter Text Brandie Brown Lilli Benito MD. Department of Gastroenterology AND Hepatology [facility] Disease [place] / [place] [address] Office: [phone] July 11, 2018 Brandie Brown [address] [facility] [address] [facility] [address] Dear Ms. Brown: Fortunately nothing serious was found on your evaluation at [facility]. Esophageal manometry which looks at motility of the esophageal muscles. Your ph study done locally showed mild reflux. The upper endoscopy at the [facility] was essentially normal. I suspect you have mild reflux and some stomach irritation that is responding well to the medication you take to suppress acid and that you need to continue this. If you are not doing well I would be happy to see you back in the office. Thank you for the opportunity to participate in your care. Sincerely, Lilli Benito MD (Signed electronically to expedite mailing) cc: Camryn Faith DO CNCO Observed: 07/11/2018 Status: COMPLETED Source: [place] 12:[address] [facility] REPOSITORY Letter Text Brandiera Rk Brown Lilli Benito MD. Department of Gastroenterology AND Hepatology [facility] / [place] [address] Office: [phone] July 11, 2018 Cortez Bird Name: Brandie Brown [facility]. No.: [id number] : 1945 Date of Visit: 07/11/[address] Bird, This is a follow up letter after a recent visit of your patient, . Brandie Brown, to the [facility]. Repeat manometry performed at [facility] was normal. Egd revealed only mild atrophy of the stomach. Her pain is well controlled with her ppi. At present she only has mild early satiety. Her GES was not a 4 hour study and not reliable. If she becomes more symptomatic I would proceed with a 4 hour gastric emptying study. If this is positive she would benefit from referral to the gastroparesis clinic. If negative she may benefit from Buspar which relaxes the fundus and can relieve functional dyspepsia. So in summary I suspect she has nonerosive GERD and gastritis well controlled on ppi. I suspect both the manometry and gastric emptying study done locally were inaccurate. Thank you for including me in the care of Ms. Brandie Brown. Please feel free to contact me at any time if I can be of further assistance, or if you should have any further questions. Sincerely, Lilli Benito MD (Electronically signed to expedite mailing) Enclosure: Progress note SURGICAL PATHOLOGY Observed: 07/03/2018 Status: F Source: [place] 4:47 PM [facility] REPOSITORY Specimen originated from [facility] Specimen #: [id number] Submitting Physician: RANDALL BERGER MD FINAL DIAGNOSIS 1. Duodenum, biopsy (A) - Duodenal mucosa with no pathologic diagnostic abnormality; negative for celiac disease, dysplasia and malignancy. 2. Stomach, biopsy (B) - Gastric body-type mucosa with glandular microcystic formation. - Gastric antral-type mucosa with no pathologic diagnostic abnormality; see comment. REGAN/rosario 07/04/2018 COMMENT 2. Histologic changes in body-type mucosa can sometimes be seen in patients that are taking proton pump inhibitors. No microorganisms morphologically compatible with H. pylori are identified on routine H&E stained sections. There is no histologic evidence of atrophic gastritis in the biopsies submitted for microscopic examination. Taya Brito M.D. (Electronic Signature) SPECIMEN SUBMITTED A: DUODENUM, BIOPSY B: STOMACH, BIOPSY CLINICAL DATA HX OF DYSPEPSIA A: R/O CELIAC B: R/O ATROPHIC GASTRITIS, H PYLORI GROSS DESCRIPTION A. Received in formalin are five pieces of burciaga, soft tissue aggregating to 1.4 x 0.2 x 0.2 cm. Totally submitted in one cassette. B. Received in formalin are four pieces of burciaga, soft tissue aggregating to 1.3 x 0.3 x 0.2 cm. Totally submitted in one cassette. Gross examination performed at [facility], [address] [place] [address] 07/03/2018 10:08:43 PM Date of Report: 07/04/2018 Date of Procedure: 07/03/2018 Date of Receipt: 07/03/2018 Submitted by: RANDALL BERGER MD Location: [facility] A3 Diagnostic interpretation performed at [place] [address]. PROGRESS Observed: 07/03/2018 Status: COMPLETED Source: [place] 11:55 AM [facility] [place] REPOSITORY HNO ID: [id number] Author: Fredrick Price) IRENE Cooley Service: (none) Author Type: Registered Nurse Type: Progress Notes Filed: 07/03/2018 11:57 AM Note Text: Name: Brandie Brown F#: [id number] Date: 07/03/2018 ESOPHAGEAL MANOMETRY TEST Indication: GERD Pain Assessment: No pain is present. The patient has been NPO 6 hours. A local anesthetic 1 cc 2% Viscous Lidoccaine was instilled into the left nares. The patient was intubated the left nares using a 36 sensor high resolution circumferential solid state manometry catheter The esophageal manometry test was completed. The patient tolerated the test without difficulty. .Fredrick Cooley RN CNNURSE Observed: 07/03/2018 Status: COMPLETED Source: [place] 11:30 AM [facility] REPOSITORY Nurse Visit (GASTMN) BRANDIE BROWN ([id number]) 1945 F Date Time Provider Department 07/03/18 11:30 AM NURSE GI LAB I GASTMN During your visit today, we recorded the following information about you: Fredrick Cooley RN, RN 07/03/2018 11:57 AM Signed Name: Brandie Rk Brown CCF#: [id number] Date: 07/03/2018 ESOPHAGEAL MANOMETRY TEST Indication: GERD Pain Assessment: No pain is present. The patient has been NPO 6 hours. A local anesthetic 1 cc 2% Viscous Lidoccaine was instilled into the left nares. The patient was intubated the left nares using a 36 sensor high resolution circumferential solid state manometry catheter The esophageal manometry test was completed. The patient tolerated the test without difficulty. .Fredrick Cooley RN Referring Provider: LILLI BENITO [[id number]] Allergies As of Date: 07/03/2018 Noted Allergy Reaction BENTYL (DICYCLOMINE HCL) 05/23/2006 16 - Unknown ERYTHROMYCIN 05/23/2006 16 - Unknown MACROBID (NITROFURANTOIN MONOHYD/*05/23/2006 MOTRIN (IBUPROFEN) 01/08/2007 2 - Rash SULFA (SULFONAMIDE ANTIBIOTICS) 05/23/2006 14 - Other: See Comments Comments: fatigue Date Reviewed: 07/03/2018 Reviewed by: Meryl Espinosa LPN - Fully Assessed Reason for Visit: Procedure [88] Cmt: Manometry Esophageal Visit Diagnoses:Gastroesophageal reflux disease, esophagitis presence not specified [K21.9] Epigastric pain [R10.13] Order(s):MANOMETRY ESOPHAGEAL [[id number]] Order #: [id number] Prescriptions as of 07/03/2018 Sig: CEPHALEXIN 500 MG CAPSULE Take 2 capsules at 1pm, 2pm, * GABAPENTIN 100 MG CAPSULE ESOMEPRAZOLE MAGNESIUM 22.3 M* Take by mouth. NEOMYCIN 500 MG TABLET Take 1 tablet by mouth as dir* BUSPIRONE 15 MG TABLET Take 15 mg by mouth three newton* BERGAMOT OIL MISC DULOXETINE 60 MG CAPSULE,JUAN* FOLIC ACID 1 MG TABLET HYDROXYCHLOROQUINE 200 MG TAB* METHOTREXATE SODIUM 2.5 MG TA* CONJUGATED ESTROGENS 0.625 MG* Use small amount at vaginal o* CHOLECALCIFEROL (VITAMIN D3) * Take 1,000 Units by mouth onc* TRAMADOL 50 MG TABLET Take 50 mg by mouth every 6 h* Problem List As Of Date 07/03/2018 Noted Resolved CIRCUMSCRIBE SCLERODERMA [L94.0] INVALID FOR* Postmenopausal atrophic vaginitis [N95.2] INVALID FOR* Epigastric pain [R10.13] INVALID FOR* Esophageal reflux [K21.9] INVALID FOR* Diverticulitis of large intestine [K57.32] INVALID FOR* Chronic antral gastritis [K29.50] INVALID FOR* Generalized abdominal pain [R10.84] INVALID FOR* Sigmoid diverticulitis [K57.32] INVALID FOR* Encounter Status:Closed by FREDRICK COOLEY on 07/03/18 CNOV Observed: 07/03/2018 Status: COMPLETED Source: [place] 8:10 AM [facility] REPOSITORY Office Visit (GASTMN) BRANDIE BROWN ([id number]) 1945 F Date Time Provider Department 07/03/18 8:10 AM LILLI BENITO During your visit today, we recorded the following information about you: Temperature Pulse Blood pressure Weight 97.9 degrees 88/minute 155/64 66.6 kg Height 1.562 m Lilli Benito MD 07/03/2018 12:53 PM Addendum New Patient/Consult REASON FOR VISIT Brandie Brown is a 73 year old female who is scheduled for dysphagia at the request of Cortez Bird. My final recommendations will be communicated back to the requesting physician by the way of the shared medical record, fax, or via US Mail. PRESENTING COMPLAINT AND HISTORY -epigastric pain for years responds to nexium and returns when d/c ppi -occasional regurgitation of food into mough -gastric emptying study was only 2 hours -early satiety on occasional -deliberate weight loss -abnormal manometry however was taking tramadol at the time -denies dysphagia GI EVALUATION Manometry:-06/13/18- Impression; -10 swallows were analyzed. The average contractile integral was 6804 which is elevated and indicated increased contraction in the smooth muscle of esophagus 60% of swallows showed retained bolus in the proximal esophagus due to the contractions in the mid esophagus. -The IRP (relaxation pressure) of the EG junction was elevated at 27 (ni is 25). Several of the swallows showed premature contractions. Esophagram:-04/30/18- Impression: -Unremarkable examination. Findings; No evidence of GERD The patient ingested barium 12 mm tablet of barium w/o any difficulty. EGD: -05/21/18-Azul pH Monitoring Medicines; Midazolam 4 mg IV, Meperidine 100 mg IV Impression: -LA Grade A reflux esophagitis.Biopsied. -Small hiatal hernia. -Chronic gastritis. Biopsied. -Normal Examined duodenum. -The AZUL pH capsule was deployed. Surgical Pathology:-05/21/18- Microscopic DX: A. Gastric antrum,Bx: -Mild chronic gastritis. B. Distal esophagus ,Bx: -Fragments of benign squamous mucosa. - No evidence of inflammation. C. Mid esophagus,Bx: -Fragments of benign squamous mucosa. -No evidence of inflammation. Comment The result of immunohistochemistry for H.Pylori will be reported separately. Tramadol abapentum mtx exium Gastric Emptying Study:-05/31/18-2 hr study Impression; 1. MILDLY ABNORMAL 99 m To sulfur colloid semi-solid phase(oatmeal) gastric imaging examination. A. There is mild delayed semi-solid phase gastric emptying compared to normal controls with defined first order kinetics throughout all components of the examination. Colonoscopy: -05/21/18- Medicines; Midazolam 4 mg IV, Meperidine 100 mg IV Impression: -Hemorrhoids found perianal exam. -Patent end-to-side colo-colonic anastomosis,characterized by moderate stenosis.Dilated. -Diverticulosis in the distal sigmoid colon. -At anastomosis an end to side was found with photo taken of the blind end pouch,healthy in appearance. -No specimens collected. PH TESTING % total time in reflux 10.7 % upright reflux 8.2 % supine reflux 14.4 deemester 42.2 cephALEXin (KEFLEX) 500 mg capsule Take 2 capsules at 1pm, 2pm, and 10 pm the day before your surgery gabapentin (NEURONTIN) 100 mg capsule esomeprazole magnesium (NEXIUM 24HR) 22.3 mg cpDR Take by mouth. neomycin 500 mg tablet Take 1 tablet by mouth as directed. Take 2 tablets at 1 pm, 2pm, and 10 pm the day before your surgery busPIRone (BUSPAR) 15 mg tablet Take 15 mg by mouth three times daily. DULoxetine (CYMBALTA) 60 mg capsule folic acid 1 mg tablet methotrexate 2.5 mg tablet conjugated estrogens (PREMARIN) vaginal cream Use small amount at vaginal opening 2 nights per week Cholecalciferol, Vitamin D3, (VITAMIN D) 1,000 unit cap Take 1,000 Units by mouth once daily. traMADol (ULTRAM) 50 mg tablet Take 50 mg by mouth every 6 hours as needed. BERGAMOT OIL MISC hydroxychloroquine (PLAQUENIL) 200 mg tablet Bentyl [Dicyclomine Hcl]; Erythromycin; Macrobid [Nitrofurantoin Monohyd/M-Cryst]; Motrin [Ibuprofen]; Sulfa (Sulfonamide Antibiotics) FAMILY HISTORY Liver Problems: No Colitis: No Colon Cancer: No Other Cancers: No FAMILY HISTORY Problem Relation Age of Onset - Lipids Mother - Stroke Mother - Cancer Maternal Grandmother unsure of the type - Heart Maternal Uncle - Lipids Brother - Lipids Sister - Osteoporosis Sister - Thyroid Sister - Thyroid Other 3 nieces ADDITIONAL HISTORY Colon polyps: Yes Colon cancer: No Other cancer: No Radiation / Chemotherapy: No Crohn's disease / Ulcerative colitis: No High cholesterol or triglycerides: Yes Ulcers: No Gallstones: Yes Hepatitis / jaundice: No Heart Disease: No Lung Disease: No Liver problems: No Thyroid disease: No Kidney stones: Yes Pancreatitis: No Diabetes: No Arthritis: No Rheumatic fever: Yes Gastrointestinal bleeding: No Depression or other mental illness: Yes Other personal illness: No Weekly narcotic analgesic: Yes Organ transplant: No Other implanted devices: No Previous GI surgery: Yes PAST MEDICAL HISTORY Diagnosis Date - Acute gastritis - Circumscribed scleroderma LICHEN SCLEROSUS (ET ATROPHICUS) - Diaphragmatic hernia without mention of obstruction or gangrene Hiatal hernia - Diverticulitis of colon 2017 - Esophagitis - Essential hypertension, benign - Irritable bowel syndrome Irritable bowel - Other abnormal heart sounds Murmur - Pure hypercholesterolemia - Rheumatoid arthritis, adult (HCC) - Unspecified gastritis and gastroduodenitis PAST SURGICAL HISTORY Procedure Laterality Date - APPENDECTOMY - COLONOSCOP W/ OR W/O BRSH SPEC 1998 Colonoscopy - COLONOSCOPY W/BX 06/16/15 - COLONSCOPY SCREENING HIGH RISK [facility] - EGD W/O BRSH SPECIMEN W/BX 06/16/15 - EGD W/O OR W/BRUSH/WASH EGD with bx - LAPAROSCOPIC HEMICOLECTOMY 03/21/2017 - LIGATE FALLOPIAN TUBE Tubal ligation - LUMPECTOMY/RADIOTHERAPY DIAG MAMM/A10 left breast - MAMMOGRAM BILATERAL 02/09/06 normal at [facility] - PAST SURGICAL HISTORY OF cyst removed from chest - REMOVAL GALLBLADDER Cholecystectomy - REPAIR RETINAL DETACH, C Right 1999 - TOTAL ABDOM HYSTERECTOMY Hysterectomy, DELORES and left Jonah Social History Marital status: Spouse name: Octavia Years of education: 12 Number of children: 2 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 was more of a passive smoker only for a couple of months. Alcohol use: No Drug use: No Sexual activity: Yes Partners with: Male control/protection: Surgical Comment: btl GI SPECIFIC REVIEW OF SYSTEMS Difficulty swallowing / foods sticking in throat: No Heartburn: Yes Hoarseness: Yes Chronic cough: sometimes Regurgitation: sometimes Chest pain: No Filling up quickly at meals: Yes Loss of appetite: Yes Nausea: No Vomiting: Yes Abdominal pain: No Recent change in bowel movements: No Bloody or black, bowel movements: No Constipation: Yes Diarrhea: No Loss of control of bowel movements: No Night sweats, fever, chills: Yes Thought or memory problems: No Fluid in abdomen (ascites): No Prominent leg swelling: No Vomiting blood: No Recent change in weight: No Primary eating disorder: No Seizures: No PHYSICAL EXAMINATION BP 155/64 Pulse 88 Temp (Src) 97.9 (Oral) Ht 5' 1.5 (1.56m) Wt 146 lb 12.8 oz (66.6kg) SpO2 96% BMI 27.29 kg/(m2). General appearance: well appearing, alert, in no acute distress and well-hydrated, well nourished Skin: Skin color, texture, turgor normal, no suspicious rashes or lesions Head: normal Neck: Supple, no adenopathy; thyroid symmetric, normal size, no bruits Back: Normal exam Lungs: lungs clear to auscultation, no wheezing or rhonchi Heart: RRR without murmur, gallop, or rubs. No ectopy Abdomen: Normal abdominal exam, Abdomen soft, non-tender. Bowel sounds normal. No masses, organomegaly Extremities: No deformities, edema, skin discoloration, clubbing or cyanosis. Good capillary refill. Assessment Impression and Plan Epigastric pain hertburn which responds to ppi. Mild early satiety. Manometry elsewhere said to show premature contractions and elevated IRP of 27. Patient was however taking tramadol prior to the exam.. She has rheumatoid arthritis for which she takes plaquinil and neurontin. Abnormal GES however only a 2 hour study so inaccurate Symptoms not suggestive of a dysmotility. It is possible that she has dyspepsia from meds for RA which is responding to ppi.ph testing abnormal verifies reflux which is responding to ppi. Doubt manometric study is accurate or GES. PLAN: 1)Esophageal manometry 2) EGD with bx of esophagus stomach Lilli Benito MD [facility] July 01, 2018 11:43 AM Referring Provider: CORTEZ BIRD [[id number]] Allergies As of Date: 07/03/2018 Noted Allergy Reaction BENTYL (DICYCLOMINE HCL) 05/23/2006 16 - Unknown ERYTHROMYCIN 05/23/2006 16 - Unknown MACROBID (NITROFURANTOIN MONOHYD/*05/23/2006 MOTRIN (IBUPROFEN) 01/08/2007 2 - Rash SULFA (SULFONAMIDE ANTIBIOTICS) 05/23/2006 14 - Other: See Comments Comments: fatigue Date Reviewed: 07/03/2018 Reviewed by: Ania (Rn) IRENE Marie - Fully Assessed Reason for Visit: Consult [173] Primary Visit Diagnosis:Gastroesophageal reflux disease, esophagitis presence not specified [K21.9] Other Visit Diagnosis:Epigastric pain [R10.13] Order(s):MANOMETRY ESOPHAGEAL [[id number]] Order #: [id number] FUTURE EGD [[id number]] Order #: [id number] FUTURE Prescriptions as of 07/03/2018 Sig: CEPHALEXIN 500 MG CAPSULE Take 2 capsules at 1pm, 2pm, * GABAPENTIN 100 MG CAPSULE ESOMEPRAZOLE MAGNESIUM 22.3 M* Take by mouth. NEOMYCIN 500 MG TABLET Take 1 tablet by mouth as dir* BUSPIRONE 15 MG TABLET Take 15 mg by mouth three newton* DULOXETINE 60 MG CAPSULE,JUAN* FOLIC ACID 1 MG TABLET METHOTREXATE SODIUM 2.5 MG TA* CONJUGATED ESTROGENS 0.625 MG* Use small amount at vaginal o* CHOLECALCIFEROL (VITAMIN D3) * Take 1,000 Units by mouth onc* TRAMADOL 50 MG TABLET Take 50 mg by mouth every 6 h* BERGAMOT OIL MISC HYDROXYCHLOROQUINE 200 MG TAB* Problem List As Of Date 07/03/2018 Noted Resolved CIRCUMSCRIBE SCLERODERMA [L94.0] INVALID FOR* Postmenopausal atrophic vaginitis [N95.2] INVALID FOR* Epigastric pain [R10.13] INVALID FOR* Esophageal reflux [K21.9] INVALID FOR* Diverticulitis of large intestine [K57.32] INVALID FOR* Chronic antral gastritis [K29.50] INVALID FOR* Generalized abdominal pain [R10.84] INVALID FOR* Sigmoid diverticulitis [K57.32] INVALID FOR* Letter Text Encounter Status:Closed by LILLI BENITO MD on 07/03/18 PROGRESS Observed: 07/01/2018 Status: COMPLETED Source: [place] 11:43 AM [facility] REPOSITORY O ID: [id number] Author: Lilli Benito Service: (none) Author Type: Physician Type: Progress Notes Filed: 07/03/2018 12:53 PM Note Text: New Patient/Consult REASON FOR VISIT Brandie Brown is a 73 year old female who is scheduled for dysphagia at the request of Cortez Bird. My final recommendations will be communicated back to the requesting physician by the way of the shared medical record, fax, or via US Mail. PRESENTING COMPLAINT AND HISTORY -epigastric pain for years responds to nexium and returns when d/c ppi -occasional regurgitation of food into mough -gastric emptying study was only 2 hours -early satiety on occasional -deliberate weight loss -abnormal manometry however was taking tramadol at the time -denies dysphagia GI EVALUATION Manometry:-06/13/18- Impression; -10 swallows were analyzed. The average contractile integral was 6804 which is elevated and indicated increased contraction in the smooth muscle of esophagus 60% of swallows showed retained bolus in the proximal esophagus due to the contractions in the mid esophagus. -The IRP (relaxation pressure) of the EG junction was elevated at 27 (ni is 25). Several of the swallows showed premature contractions. Esophagram:-04/30/18- Impression: -Unremarkable examination. Findings; No evidence of GERD The patient ingested barium 12 mm tablet of barium w/o any difficulty. EGD: -05/21/18-Azul pH Monitoring Medicines; Midazolam 4 mg IV, Meperidine 100 mg IV Impression: -LA Grade A reflux esophagitis.Biopsied. -Small hiatal hernia. -Chronic gastritis. Biopsied. -Normal Examined duodenum. -The AZUL pH capsule was deployed. Surgical Pathology:-05/21/18- Microscopic DX: A. Gastric antrum,Bx: -Mild chronic gastritis. B. Distal esophagus ,Bx: -Fragments of benign squamous mucosa. - No evidence of inflammation. C. Mid esophagus,Bx: -Fragments of benign squamous mucosa. -No evidence of inflammation. Comment The result of immunohistochemistry for H.Pylori will be reported separately. Tramadol abapentum mtx exium Gastric Emptying Study:-05/31/18-2 hr study Impression; 1. MILDLY ABNORMAL 99 m To sulfur colloid semi-solid phase(oatmeal) gastric imaging examination. A. There is mild delayed semi-solid phase gastric emptying compared to normal controls with defined first order kinetics throughout all components of the examination. Colonoscopy: -05/21/18- Medicines; Midazolam 4 mg IV, Meperidine 100 mg IV Impression: -Hemorrhoids found perianal exam. -Patent end-to-side colo-colonic anastomosis,characterized by moderate stenosis.Dilated. -Diverticulosis in the distal sigmoid colon. -At anastomosis an end to side was found with photo taken of the blind end pouch,healthy in appearance. -No specimens collected. PH TESTING % total time in reflux 10.7 % upright reflux 8.2 % supine reflux 14.4 deemester 42.2 cephALEXin (KEFLEX) 500 mg capsule Take 2 capsules at 1pm, 2pm, and 10 pm the day before your surgery gabapentin (NEURONTIN) 100 mg capsule esomeprazole magnesium (NEXIUM 24HR) 22.3 mg cpDR Take by mouth. neomycin 500 mg tablet Take 1 tablet by mouth as directed. Take 2 tablets at 1 pm, 2pm, and 10 pm the day before your surgery busPIRone (BUSPAR) 15 mg tablet Take 15 mg by mouth three times daily. DULoxetine (CYMBALTA) 60 mg capsule folic acid 1 mg tablet methotrexate 2.5 mg tablet conjugated estrogens (PREMARIN) vaginal cream Use small amount at vaginal opening 2 nights per week Cholecalciferol, Vitamin D3, (VITAMIN D) 1,000 unit cap Take 1,000 Units by mouth once daily. traMADol (ULTRAM) 50 mg tablet Take 50 mg by mouth every 6 hours as needed. BERGAMOT OIL MISC hydroxychloroquine (PLAQUENIL) 200 mg tablet Bentyl [Dicyclomine Hcl]; Erythromycin; Macrobid [Nitrofurantoin Monohyd/M-Cryst]; Motrin [Ibuprofen]; Sulfa (Sulfonamide Antibiotics) FAMILY HISTORY Liver Problems: No Colitis: No Colon Cancer: No Other Cancers: No FAMILY HISTORY Problem Relation Age of Onset - Lipids Mother - Stroke Mother - Cancer Maternal Grandmother unsure of the type - Heart Maternal Uncle - Lipids Brother - Lipids Sister - Osteoporosis Sister - Thyroid Sister - Thyroid Other 3 nieces ADDITIONAL HISTORY Colon polyps: Yes Colon cancer: No Other cancer: No Radiation / Chemotherapy: No Crohn's disease / Ulcerative colitis: No High cholesterol or triglycerides: Yes Ulcers: No Gallstones: Yes Hepatitis / jaundice: No Heart Disease: No Lung Disease: No Liver problems: No Thyroid disease: No Kidney stones: Yes Pancreatitis: No Diabetes: No Arthritis: No Rheumatic fever: Yes Gastrointestinal bleeding: No Depression or other mental illness: Yes Other personal illness: No Weekly narcotic analgesic: Yes Organ transplant: No Other implanted devices: No Previous GI surgery: Yes PAST MEDICAL HISTORY Diagnosis Date - Acute gastritis - Circumscribed scleroderma LICHEN SCLEROSUS (ET ATROPHICUS) - Diaphragmatic hernia without mention of obstruction or gangrene Hiatal hernia - Diverticulitis of colon 2017 - Esophagitis - Essential hypertension, benign - Irritable bowel syndrome Irritable bowel - Other abnormal heart sounds Murmur - Pure hypercholesterolemia - Rheumatoid arthritis, adult (HCC) - Unspecified gastritis and gastroduodenitis PAST SURGICAL HISTORY Procedure Laterality Date - APPENDECTOMY - COLONOSCOP W/ OR W/O [facility] SPEC 1998 Colonoscopy - COLONOSCOPY W/BX 06/16/15 - COLONSCOPY SCREENING HIGH RISK 2012 - EGD W/O BRSH SPECIMEN W/BX 06/16/15 - EGD W/O OR W/BRUSH/WASH EGD with bx - LAPAROSCOPIC HEMICOLECTOMY 03/21/2017 - LIGATE FALLOPIAN TUBE Tubal ligation - LUMPECTOMY/RADIOTHERAPY DIAG MAMM/A10 left breast - MAMMOGRAM BILATERAL 02/09/06 normal at [facility] - PAST SURGICAL HISTORY OF cyst removed from chest - REMOVAL GALLBLADDER Cholecystectomy - REPAIR RETINAL DETACH, C Right 1999 - TOTAL ABDOM HYSTERECTOMY Hysterectomy, DELORES and left Jonah Social History Marital status: Spouse name: Octavia Years of education: 12 Number of children: 2 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 was more of a passive smoker only for a couple of months. Alcohol use: No Drug use: No Sexual activity: Yes Partners with: Male control/protection: Surgical Comment: btl GI SPECIFIC REVIEW OF SYSTEMS Difficulty swallowing / foods sticking in throat: No Heartburn: Yes Hoarseness: Yes Chronic cough: sometimes Regurgitation: sometimes Chest pain: No Filling up quickly at meals: Yes Loss of appetite: Yes Nausea: No Vomiting: Yes Abdominal pain: No Recent change in bowel movements: No Bloody or black, bowel movements: No Constipation: Yes Diarrhea: No Loss of control of bowel movements: No Night sweats, fever, chills: Yes Thought or memory problems: No Fluid in abdomen (ascites): No Prominent leg swelling: No Vomiting blood: No Recent change in weight: No Primary eating disorder: No Seizures: No PHYSICAL EXAMINATION BP 155/64 Pulse 88 Temp (Src) 97.9 (Oral) Ht 5' 1.5 (1.56m) Wt 146 lb 12.8 oz (66.6kg) SpO2 96% BMI 27.29 kg/(m2). General appearance: well appearing, alert, in no acute distress and well-hydrated, well nourished Skin: Skin color, texture, turgor normal, no suspicious rashes or lesions Head: normal Neck: Supple, no adenopathy; thyroid symmetric, normal size, no bruits Back: Normal exam Lungs: lungs clear to auscultation, no wheezing or rhonchi Heart: RRR without murmur, gallop, or rubs. No ectopy Abdomen: Normal abdominal exam, Abdomen soft, non-tender. Bowel sounds normal. No masses, organomegaly Extremities: No deformities, edema, skin discoloration, clubbing or cyanosis. Good capillary refill. Assessment Impression and Plan Epigastric pain hertburn which responds to ppi. Mild early satiety. Manometry elsewhere said to show premature contractions and elevated IRP of 27. Patient was however taking tramadol prior to the exam.. She has rheumatoid arthritis for which she takes plaquinil and neurontin. Abnormal GES however only a 2 hour study so inaccurate Symptoms not suggestive of a dysmotility. It is possible that she has dyspepsia from meds for RA which is responding to ppi.ph testing abnormal verifies reflux which is responding to ppi. Doubt manometric study is accurate or GES. PLAN: 1)Esophageal manometry 2) EGD with bx of esophagus stomach Lilli Benito MD [facility] July 01, 2018 11:43 AM SURGERY VISIT REPORT Observed: 06/24/2018 Status: F Source: [place] 3:23 PM [facility] REPOSITORY [facility] [address] [place] [address] [address] [place] [address] OFFICE VISIT Date of Service: 06/24/18 MR#: [id number] Acct: [id number] Name: BRANDIE BROWN Rep #: [id number] : 1945 Provider: Cortez Bird MD Age/Sex: 73/F Location: [facility] Status: Signed Intake Vital Signs06/24/18 Height 5 ft 1.5 in 06/24/18 Weight: 149 lb Intake Visit Reasons: To discuss test results Chief Complaint: gerd, need for colonoscopy Inspector Elevators Required: No Is patient in pain?: No Allergies erythromycin base Allergy (Verified 06/24/18 07:52) Rash ibuprofen [From Motrin] Allergy (Verified 06/24/18 07:52) Rash dicyclomine HCl [From Bentyl] Adverse Reaction (Verified 06/24/18 07:52) Nausea nitrofurantoin Adverse Reaction (Verified 06/24/18 07:52) Nausea Sulfa (Sulfonamide Antibiotics) Adverse Reaction (Verified 06/24/18 07:52) Nausea Medications traMADol [Ultram] 100 mg PO BID 09/30/13 [History Confirmed 06/24/18] Bergamot [Nyack Bergamot] 02/12/17 [History Confirmed 06/24/18] Cyanocobalamin (Vitamin B-12) [B-12] 2,000 mcg PO DAILY 02/12/17 [History Confirmed 06/24/18] Duloxetine HCl 60 mg PO DAILY 02/12/17 [History Confirmed 06/24/18] Folic Acid 2 mg PO DAILY 02/12/17 [History Confirmed 06/24/18] busPIRone [Buspar] 15 mg PO BID 02/12/17 [History Confirmed 06/24/18] Esomeprazole Magnesium [Nexium 24Hr] 22.3 mg PO BID 03/14/17 [History Confirmed 06/24/18] aspirin 81 mg chewable tablet 81 mg PO QDAY 01/29/18 [History Confirmed 06/24/18] cholecalciferol (vit D3) 1,000 unit-vitamin K2 (MK4) 100 mcg tablet 1 tab PO QDAY 01/29/18 [History Confirmed 06/24/18] estradiol 0.01% (0.1 mg/gram) vaginal cream See Rx Instructions VAGINAL .COMPLEX #42.5 g 01/29/18 [Rx Confirmed 06/24/18] ferrous sulfate 324 mg (65 mg iron) tablet,delayed release 324 mg PO QDAY tab 01/29/18 [History Confirmed 06/24/18] metformin ER 500 mg tablet,extended release 24 hr 500 mg PO QDAY 01/29/18 [History Confirmed 06/24/18] gabapentin 600 mg tablet 600 mg PO DAILY 04/25/18 [History Confirmed 06/24/18] methotrexate sodium 2.5 mg tablet 12.5 mg PO QWEEK tab 04/25/18 [History Confirmed 06/24/18] vitamin K2 40 mcg tablet 40 mcg PO DAILY 04/25/18 [History Confirmed 06/24/18] PFSH Medical History Screening for intestinal cancer (Acute) Shortness of breath (Acute) Anxiety (Acute) Arthritis (Acute) Constipation (Acute) Diabetes (Acute) Diverticula of colon (Acute) GERD (gastroesophageal reflux disease) (Acute) History of hysterectomy (Acute) Rheumatoid arthritis (Acute) Surgical History History of appendectomy (Acute) History of colectomy (Acute 03/2017) History of colonoscopy (Acute 03/2017) History of esophagogastroduodenoscopy (EGD) (Acute 2014) History of laparoscopic cholecystectomy (Acute) Family History Mother CVA (cerebral vascular accident) Sister Diabetes Heart disease Brother Heart disease Daughter Breast cancer Social History Smoking Status: Never smoker alcohol intake: never substance use type: does not use caffeine: Yes what type of physical activity do you participate in: none seatbelt use: always do you feel safe at home: Yes additional social history: Octavia- Both are retired HPI HPI HPI: BRANDIE BROWN, is a 73 F who presents to the office today for surgical follow-up regarding esophageal dysphasia April 16, 2018 right upper quadrant ultrasound performed at the [facility] Fatty infiltration of the liver. Mild right hydronephrosis. No stones identified. Evidence of previous cholecystectomy. April 30, 2018 contrast upper GI examination performed at the [facility] Normal findings May 08, 2018 CT scan abdomen and pelvis performed at the [facility]. 3 nonobstructing right renal collecting system stones. Evidence of previous cholecystectomy. Normal-appearing liver and stomach. No acute findings May 21, 2018. Esophagogastroduodenoscopy with biopsy and pH probe placement. Colonoscopy with hydrostatic anastomotic dilatation The colonoscopy demonstrated evidence of a previous end-to-side colocolonic anastomosis in the distal sigmoid colon. Moderate stenosis. Dilatation to 13.5 mm with a hydrostatic balloon was performed. The colonoscope then advanced without difficulty. Diverticulosis of the distal sigmoid identified and hemorrhoids noted. No other acute findings. The patient had not been symptomatic from a colorectal standpoint preprocedure. She had had a preoperative history of a sigmoid diverticular recurrent disease. The upper endoscopy suggested a small hiatal hernia and clinical findings suggestive of reflux and some mild bile staining and gastritis. H. pylori was negative. Antral biopsies showed mild chronic gastritis. Interestingly however biopsies of both the distal and [...] medicine gastric emptying study May 31, 2018. Prompt visualization of the stomach. No GE reflux [...] murmurs Assessment AND Plan Problems 1. Esophageal dysphagia R13.10 Plan Today was a 20-minute [id number] consultative appointment. I reviewed all of the extensive above evaluation. Findings are curious in that biopsies did not confirm esophageal inflammation but the pH study was abnormal. The [...] etiology to her esophageal reflux symptoms/upper abdominal bloating/excessive flatus. I am recommending tertiary referral for review of all of the above findings for additional treatment recommendations. 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 It is not clear to me that offering her a reflux procedure would be of benefit even though the patient would like to be able to come off her proton pump inhibitors. CC: Dr. Camryn Bird M.D., F.A.C.S. Coding Level of Care Code Off vis,est,level 2 Diagnoses Esophageal dysphagia R13.10 Dysphagia type: esophageal phase 06/24/18 1523 <Electronically signed by Cortez Bird MD> Date Cortez Bird MD Cosigner Signature: Date (if applicable) CC: Camryn Faith DO CBC W/DIFF, AUTOMATED Collected: 06/10/2018 Status: F Source: [facility] 3:27 PM [facility] REPOSITORY TYPE CODE TESTS RESULT OUT OF RANGE REFERENCE UNITS LAB L100.1000 4.4-11.0 K/mm3 Normal WBC 5.2 LAB L100.1200 4.2-5.4 M/mm3 Low RBC 3.76 LAB L100.1300 12.0-15.0 g/dl Low HGB 11.5 LAB L100.1400 37-47 % Low HCT 36.1 LAB L100.1500 81-99 fL Normal MCV 96.0 LAB L100.1600 27.0-32.0 pg Normal MCH 30.6 LAB L100.1700 32-36 g/gl Low MCHC 31.9 LAB L100.1810 11.6-14.6 % High RDW CV 15.2 LAB L100.1820 35.1-43.9 fl High RDW SD 52.1 LAB L100.1900 150-450 K/mm3 Normal PLT 416 LAB L100.2000 6.2-12.0 fl Normal MPV 8.9 LAB L100.2100 47-70 % High NEUT% 72.5 LAB L100.2200 19-41 % Low LY% 18.5 LAB L100.2300 0-10 % Normal MONO% 8.4 LAB L100.2400 0-5 % Normal EO% 0.2 LAB L100.2500 0-1 % Normal BASO% 0.4 LAB L100.2550 0.0-0.9 % Normal IM GRAN % 0.000 Result Comment: IG% - Immature Granulocytes (promyelocytes, myelocytes and metamyelocytes) > 1% indicates that a LEFT SHIFT is Present. LAB L100.2620 2.0-7.7 X10 3/uL Normal Absolute Neut 3.8 LAB L100.2720 0.83-4.51 X10 3/ul Normal Absolute Lymph 0.97 Performed By: #### L100.0100 #### [facility] [address] [place], [address] COMPREHENSIVE METABOLIC Collected: 06/10/2018 Status: F Source: [facility] 3:27 PM [facility] REPOSITORY TYPE CODE TESTS RESULT OUT OF RANGE REFERENCE UNITS LAB L501.0100 74-106 mg/dL Normal GLU 94 Result Comment: Please note revised GLUCOSE reference range effective 2017. LAB L501.1000 7-18 mg/dL Normal BUN 11 LAB L501.1100 0.55-1.02 mg/dL Normal CREAT,SERUM 0.96 Result Comment: The validity of the calculated GFR AND GFRAA in patients over 70 years has not been determined. Clinical correlation is essential. LAB L501.1110 >60 mL/min Normal EST GFR 61 Result Comment: Non- GFR Calc LAB L501.1115 >60 mL/min Normal EST GFR - AA 73 Result Comment: GFR Calc LAB L501.1300 10-20 RATIO Normal BUN/CRE 11.5 LAB L501.1500 6.4-8.2 g/dL T Normal PROT 7.6 LAB L501.1800 3.2-5.0 g/dL Normal ALB 3.8 LAB L501.1950 2.2-4.2 g/dL Normal GLOB 3.8 LAB L501.2000 0.9-2.4 RATIO Normal A/G 1.0 LAB L501.2200 8.5-10.1 mg/dL CA Normal 9.7 LAB L501.4100 15-37 U/L Normal AST 35 LAB L501.4305 45-117 U/L Normal ALK P 104 LAB L501.4405 13-56 U/L High ALT 60 LAB L501.4600 0.20-1.00 mg/dL T Normal BILI 0.30 LAB L501.5300 136-145 mmol/L NA Normal 141 LAB L501.5600 3.5-5.1 mmol/L K Normal 3.9 LAB L501.5900 98-107 mmol/L CL Normal 104 LAB L501.6100 21.0-32.0 mmol/L Normal CO2 28.0 LAB L501.6200 5-15 Normal GAP 9 Performed By: #### L500.4050 #### [facility] [address] [facility] [place], [address] GASTRIC EMPTYING Observed: 05/31/2018 Status: F Source: [facility] 9:30 AM [facility] REPOSITORY [facility] Imaging Services [address] [place] [address] Gastric Emptying Study MR#: [id number] Acct: [id number] Name: BRANDIE BROWN Rep #: [id number] : 1945 F 73 From: Carson Thacker DO PCP: Camryn Faith DO Status: REG CLI Study: Gastric Emptying Study Date of Exam: 05/31/18 Exam# [id number] Ordering Dr: Kay Sanchez PA-C CLINICAL: 73-year-old female with reported history of abdominal pain. SEMI-SOLID PHASE 99m Tc SULFUR COLLOID GASTRIC EMPTYING STUDY COMPARISON: CT of the abdomen-pelvis report 05/08/2018 FINDINGS: The patient was administered 1.1 mCi of 99m Tc sulfur colloid mixed with oatmeal and consumed per os. Image acquisitions in the anterior-posterior projections were obtained for 60 minutes. There is prompt visualization of the stomach. There is no gastroesophageal reflux identified. First order kinetics are maintained throughout the duration of the acquisitions. The T1/2 linear fit was calculated to be 63.43 minutes, (Normal: 12-56 minutes). NM/Gastric Emptying Study IMPRESSION: 1. MILDLY ABNORMAL 99m Tc sulfur colloid semi-solid phase (oatmeal) gastric emptying imaging examination. A. There is mild delayed semi-solid phase gastric emptying compared to normal controls with defined first order kinetics throughout all components of the examination. (Alannah velazco al, J Nucl Med Tech 38: 186, 2010). Electronically Signed: Carson Thacker DO at 8:03 EDT Tel , Service support , CC: Kay Sanchez PA-C; Camryn Faith DO [employer] Supervisor: Signed SURGERY VISIT REPORT Observed: 05/28/2018 Status: F Source: [facility] 3:09 PM [facility] REPOSITORY [facility] [address] [place] [address] [address] [place] [address] OFFICE VISIT Date of Service: 05/28/18 MR#: [id number] Acct: [id number] Name: BRANDIE BROWN Rk Rep #: [id number] : 1945 Provider: Cortez Bird MD Age/Sex: 73/F Location: [facility] Status: Signed Intake Intake Visit Reasons: C-Scope 05/21 Chief Complaint: gerd, need for colonoscopy Allergies erythromycin base Allergy (Verified 04/25/18 08:41) Rash ibuprofen [From Motrin] Allergy (Verified 04/25/18 08:41) Rash dicyclomine HCl [From Bentyl] Adverse Reaction (Verified 04/25/18 08:41) Nausea nitrofurantoin Adverse Reaction (Verified 04/25/18 08:41) Nausea Sulfa (Sulfonamide Antibiotics) Adverse Reaction (Verified 04/25/18 08:41) Nausea Medications traMADol [Ultram] 100 mg PO BID 09/30/13 [History Confirmed 04/25/18] Bergamot [Nyack Bergamot] 02/12/17 [History Confirmed 04/25/18] Cyanocobalamin (Vitamin B-12) [B-12] 2,000 mcg PO DAILY 02/12/17 [History Confirmed 04/25/18] Duloxetine HCl 60 mg PO DAILY 02/12/17 [History Confirmed 04/25/18] Folic Acid 2 mg PO DAILY 02/12/17 [History Confirmed 04/25/18] busPIRone [Buspar] 15 mg PO BID 02/12/17 [History Confirmed 04/25/18] Esomeprazole Magnesium [Nexium 24Hr] 22.3 mg PO BID 03/14/17 [History Confirmed 04/25/18] aspirin 81 mg chewable tablet 81 mg PO QDAY 01/29/18 [History Confirmed 04/25/18] cholecalciferol (vit D3) 1,000 unit-vitamin K2 (MK4) 100 mcg tablet 1 tab PO QDAY 01/29/18 [History Confirmed 04/25/18] estradiol 0.01% (0.1 mg/gram) vaginal cream See Rx Instructions VAGINAL .COMPLEX #42.5 g 01/29/18 [Rx Confirmed 04/25/18] ferrous sulfate 324 mg (65 mg iron) tablet,delayed release 324 mg PO QDAY tab 01/29/18 [History Confirmed 04/25/18] metformin ER 500 mg tablet,extended release 24 hr 500 mg PO QDAY 01/29/18 [History Confirmed 04/25/18] gabapentin 600 mg tablet 600 mg PO DAILY 04/25/18 [History Confirmed 04/25/18] methotrexate sodium 2.5 mg tablet 12.5 mg PO QWEEK tab 04/25/18 [History Confirmed 04/25/18] vitamin K2 40 mcg tablet 40 mcg PO DAILY 04/25/18 [History Confirmed 04/25/18] PFS Medical History Screening for intestinal cancer (Acute) Shortness of breath (Acute) Anxiety (Acute) Arthritis (Acute) Constipation (Acute) Diabetes (Acute) Diverticula of colon (Acute) GERD (gastroesophageal reflux disease) (Acute) Rheumatoid arthritis (Acute) Surgical History History of appendectomy (Acute) History of colectomy (Acute 03/2017) History of colonoscopy (Acute 03/2017) History of esophagogastroduodenoscopy (EGD) (Acute 2014) History of hysterectomy (Acute) History of laparoscopic cholecystectomy (Acute) Family History Mother CVA (cerebral vascular accident) Sister Diabetes Heart disease Brother Heart disease Daughter Breast cancer Social History Smoking Status: Never smoker alcohol intake: never substance use type: does not use caffeine: Yes what type of physical activity do you participate in: none seatbelt use: always do you feel safe at home: Yes additional social history: Octavia- Both are retired HPI HPI HPI: BRANDIE BROWN, is a 73 F who presents to the office today for surgical follow-up Her previous concerns are as follows HPI: BRANDIE BROWN, is a 72 F who presents [...] cholecystectomy. To the diverticular disease. Demonstrated a small [...] going to sleep. To help evaluate her situation she had a combined esophagogastroduodenoscopy with biopsy and pH probe placement as well as a colonoscopy with anastomotic dilatation. She had a previous history of a lap scopic sigmoid colectomy for diverticular disease. On May 21, 2018 did a colonoscopy. I did have to do a hydrostatic dilatation to 13 mm to allow for advancement of the colonoscope. She had an end-to-side anastomosis with a very short rectal pouch. Few scattered distal sigmoid diverticula remained. The patient confirms that she has had a previous history of colon polyps. For that reason a follow- up colonoscopy recommended in 5 years. If the patient were to further clarify her symptoms it would be problems with intermittent food regurgitation and some abdominal bloating Assessment AND Plan Problems 1. Gastroesophageal reflux disease, esophagitis presence not specified K21.9 Plan Having reviewed the upper endoscopy showing some mild chronic gastritis. Distal and mid esophageal biopsies showed no signs of inflammation. H. pylori is negative. however the pH [...] to the office one more time to discuss the potential as to whether she could be benefited from a laparoscopic Toupet procedure She has had an opportunity to ask and have questions answered. She will return subsequent to the 2 additional testing procedures. Cc: Dr. Camryn Bird M.D., F.A.C.S. Orders Orders: Coding Level of Care Code Off vis,est,level 2 Diagnoses Gastroesophageal reflux disease, esophagitis presence not specified K21.9 Esophagitis presence: esophagitis presence not specified 05/28/18 1509 <Electronically signed by Cortez Bird MD> Date Cortez Bird MD Cosigner Signature: Date (if applicable) CC: Camryn Faith DO DEXA BONE DENSITY Observed: 05/23/2018 Status: F Source: [facility] 9:45 AM [facility] REPOSITORY [facility] Imaging Services [address] [place] [address] Dexa Bone Density Study MR#: [id number] Acct: [id number] Name: BRANDIE BROWN Rk Rep #: [id number] : 1945 F 73 From: Zbigniew Perez MD PCP: Camryn Faith DO Status: [facility] Study: Dexa Bone Density Study Date of Exam: 05/23/18 Exam# [id number] Ordering Dr: Camryn Faith DO STUDY: DUAL ENERGY X-RAY ABSORPTIOMETRY / [...] Total: g/cm2 (0.997) / T-score (-0.1) / Z- score (1.6) Left Femoral Neck: g/cm2 (0.893) / T-score (-1.0) / Z- score (0.9) Right Femur Total: g/cm2 (0.917) / T-score (-0.7) / Z- score (1.0) Right Femoral Neck: g/cm2 (0.819) / T-score (-1.6) / Z-score (0.3) The T-Scores on the most recent prior examination were: Lumbar Spine (L1-L4): There has been improvement of bone density since the previous examination. Left Femur Total: which represents an improvement of 3.6%. Right Femur Total: which represents an improvement of 2.7%. BD/Dexa Bone Density Study IMPRESSION: [...] Densitometry http://www.iscd.org 3. National [employer]opor[employer] Foundation http://www.nof.org Electronically Signed: Zbigniew Perez MD at 8:17 EDT Tel [phone], Service support , CC: Camryn Faith DO [employer] Supervisor: Signed OPERATIVE REPORT - Observed: 05/22/2018 Status: F Source: [facility] 9:58 AM [facility] REPOSITORY [facility] Medical Records Department [address] [place] [id number] Progress Note - Endoscopy 05/21/18 0647 MR#: [id number] Acct: [id number] Name: BRANDIE BROWN Rep #: [id number] : 1945 73 From: Cortez Bird MD Patient Name: Brandie Brown Procedure Date: 05/21/2018 6:47 AM Date of : 1945 Age: 73 Procedure: Colonoscopy Indications: Screening for colorectal malignant neoplasm Providers: Cortez Bird Referring MD: Cortez Bird Medicines: See the other procedure note for documentation of the administered medications Complications: No immediate complications. Procedure: Pre-Anesthesia Assessment: - Prior to the procedure, a History and Physical was performed, and patient medications and allergies were reviewed. The patient's tolerance of previous anesthesia was also reviewed. The risks and benefits of the procedure and the sedation options and risks were discussed with the patient. All questions were answered, and informed consent was obtained. Prior Anticoagulants: The patient has taken no previous anticoagulant or antiplatelet agents. ASA Grade Assessment: II - A patient with mild systemic disease. After reviewing the risks and benefits, the patient was deemed in satisfactory condition to undergo the procedure. After I obtained informed consent, the scope was passed under direct vision. Throughout the procedure, the patient's blood pressure, pulse, and oxygen saturations were monitored continuously. The colonoscope was introduced through the anus and advanced to the cecum, identified by appendiceal orifice and ileocecal valve. The colonoscopy was performed without difficulty. The patient tolerated the procedure well. The quality of the bowel preparation was excellent. Scope In: 6:48:39 AM Scope Withdrawal Time 0 hours 6 minutes 25 seconds Scope Out: 7:04:54 AM Total Procedure Duration Time 0 hours 16 minutes 15 seconds Findings: Hemorrhoids were found on perianal exam. There was evidence of a prior end-to-side colo-colonic anastomosis in the distal sigmoid colon. This was patent and was characterized by moderate stenosis. The anastomosis was traversed after dilation. A TTS dilator was passed through the scope. Dilation with a 13.5 mm colonic balloon dilator was performed. The dilation site was examined following endoscope reinsertion and showed moderate improvement in luminal narrowing. Estimated blood loss was minimal. Scattered small-mouthed diverticula were found in the distal sigmoid colon. At anastomosis an end to side was found with photo taken of the blind end pouch, healthy in appearance. Impression: [...] 1 week. Procedure Code(s): --- Professional --- 54210, Colonoscopy, flexible; with transendoscopic balloon dilation Diagnosis Code(s): --- Professional --- Z12.11, Encounter for screening for malignant neoplasm of colon K64.9, Unspecified hemorrhoids Z98.0, Intestinal bypass and anastomosis status K57.30, Diverticulosis of large intestine without perforation or abscess without bleeding CPT copyright 2017 [employer]. All rights reserved. The codes documented in this report are preliminary and upon certified professional coder review may be revised to meet current compliance requirements. MD Cortez Taylor MD 05/21/2018 7:25:41 AM This report has been signed electronically. Number of Addenda: 1 Note Initiated On: 05/21/2018 6:47 AM Addendum Number: 1 Addendum Date: 05/21/2018 7:30:35 AM Repeat colonoscopy for screening in 10 years. MD Cortez Taylor MD 05/21/2018 7:30:59 AM This report has been signed electronically. ____ No Clinically relevant changes since time of dictation ____ See Progress Notes for Changes ____ Dictated on Admission 05/21/18 0846 Date Cortez Bird MD Progress Note - Endoscopy CC: 6 DT: RDC Signed PROGRESS NOTE - Observed: 05/21/2018 Status: F Source: [facility] 3:46 PM [facility] Medical Records Department [address] [place] [address] Progress Note - Endoscopy 05/21/1847 MR#: [id number] Acct: [id number] Name: BRANDIE BROWN Rep #: [id number] : 1945 73 From: Cortez Bird MD Patient Name: Brandie Brown Procedure Date: 05/21/2018 6:47 AM Date of : 1945 Age: 73 Procedure: Colonoscopy Indications: Screening for colorectal malignant neoplasm Providers: Cortez Bird Referring MD: Cortez Bird Medicines: See the other procedure note for documentation of the administered medications Complications: No immediate complications. Procedure: Pre-Anesthesia Assessment: - Prior to the procedure, a History and Physical was performed, and patient medications and allergies were reviewed. The patient's tolerance of previous anesthesia was also reviewed. The risks and benefits of the procedure and the sedation options and risks were discussed with the patient. All questions were answered, and informed consent was obtained. Prior Anticoagulants: The patient has taken no previous anticoagulant or antiplatelet agents. ASA Grade Assessment: II - A patient with mild systemic disease. After reviewing the risks and benefits, the patient was deemed in satisfactory condition to undergo the procedure. After I obtained informed consent, the scope was passed under direct vision. Throughout the procedure, the patient's blood pressure, pulse, and oxygen saturations were monitored continuously. The colonoscope was introduced through the anus and advanced to the cecum, identified by appendiceal orifice and ileocecal valve. The colonoscopy was performed without difficulty. The patient tolerated the procedure well. The quality of the bowel preparation was excellent. Scope In: 6:48:39 AM Scope Withdrawal Time 0 hours 6 minutes 25 seconds Scope Out: 7:04:54 AM Total Procedure Duration Time 0 hours 16 minutes 15 seconds Findings: Hemorrhoids were found on perianal exam. There was evidence of a prior end-to-side colo-colonic anastomosis in the distal sigmoid colon. This was patent and was characterized by moderate stenosis. The anastomosis was traversed after dilation. A TTS dilator was passed through the scope. Dilation with a 13.5 mm colonic balloon dilator was performed. The dilation site was examined following endoscope reinsertion and showed moderate improvement in luminal narrowing. Estimated blood loss was minimal. Scattered small-mouthed diverticula were found in the distal sigmoid colon. At anastomosis an end to side was found with photo taken of the blind end pouch, healthy in appearance. Impression: [...] 1 week. Procedure Code(s): --- Professional --- 10230, Colonoscopy, flexible; with transendoscopic balloon dilation Diagnosis Code(s): --- Professional --- Z12.11, Encounter for screening for malignant neoplasm of colon K64.9, Unspecified hemorrhoids Z98.0, Intestinal bypass and anastomosis status K57.30, Diverticulosis of large intestine without perforation or abscess without bleeding CPT copyright 2017 [employer]. All rights reserved. The codes documented in this report are preliminary and upon certified professional coder review may be revised to meet current compliance requirements. MD Cortez Taylor MD 05/21/2018 7:25:41 AM This report has been signed electronically. Number of Addenda: 1 Note Initiated On: 05/21/2018 6:47 AM Addendum Number: 1 Addendum Date: 05/21/2018 7:30:35 AM Repeat colonoscopy for screening in 10 years. MD Cortez Taylor MD 05/21/2018 7:30:59 AM This report has been signed electronically. ____ No Clinically relevant changes since time of dictation ____ See Progress Notes for Changes ____ Dictated on Admission 05/21/18 0846 Date Cortez Bird MD Progress Note - Endoscopy CC: DT: LIU Signed PROGRESS NOTE - Observed: 05/21/2018 Status: F Source: [facility] 10:45 AM [facility] REPOSITORY [facility] Medical Records Department [address] [place] [address] Progress Note - Endoscopy 05/21/18621 MR#: [id number] Acct: [id number] Name: BRANDIE BROWN Rep #: [id number] : 1945 73 From: Eduardo Adams MD Patient Name: Brandie Brown Procedure Date: 05/21/2018 6:22 AM Date of : 1945 Age: 73 Procedure: Upper GI endoscopy Indications: Gastro-esophageal reflux disease Providers: Cortez Bird Referring MD: Camryn Tobin Medicines: Midazolam 4 mg IV, Meperidine 100 mg IV Complications: No immediate complications. Procedure: Pre-Anesthesia Assessment: - Prior to the procedure, a History and Physical was performed, and patient medications and allergies were reviewed. The patient's tolerance of previous anesthesia was also reviewed. The risks and benefits of the procedure and the sedation options and risks were discussed with the patient. All questions were answered, and informed consent was obtained. Prior Anticoagulants: The patient has taken no previous anticoagulant or antiplatelet agents. ASA Grade Assessment: II - A patient with mild systemic disease. After reviewing the risks and benefits, the patient was deemed in satisfactory condition to undergo the procedure. After obtaining informed consent, the endoscope was passed under direct vision. Throughout the procedure, the patient's blood pressure, pulse, and oxygen saturations were monitored continuously. The gastroscope was introduced through the mouth, and advanced to the second part of duodenum. The upper GI endoscopy was accomplished without [...] to 37 cm from the incisors. Biopsies were taken with a cold forceps for histology. A small hiatal hernia was present. Diffuse mild inflammation characterized by erythema and bile staining was found in the gastric antrum. Biopsies were taken with a cold forceps for histology. The examined duodenum was normal. The AZUL capsule with delivery system was introduced through the mouth and advanced into the esophagus, such that the AZUL pH capsule was positioned 30 cm from the incisors, which was 6 cm proximal to the GE junction. The AZUL pH capsule was then deployed and attached to the esophageal mucosa. The delivery system was then withdrawn. Endoscopy was utilized for probe placement and diagnostic evaluation. Impression: - LA Grade A reflux esophagitis. Biopsied. - Small hiatal hernia. - Chronic gastritis. Biopsied. - Normal examined duodenum. - The AZUL pH capsule was deployed. Recommendation: - Discharge patient to home. - Resume previous diet. - Continue present medications. - Return to my office in 1 week. Procedure Code(s): --- Professional --- 98187, Esophagogastroduodenoscopy, flexible, transoral; with biopsy, single or multiple Diagnosis Code(s): --- Professional --- K21.0, Gastro-esophageal reflux disease with esophagitis K44.9, Diaphragmatic hernia without obstruction or gangrene K29.50, Unspecified chronic gastritis without bleeding CPT copyright 2017 [employer]. All rights reserved. The codes documented in this report are preliminary and upon certified professional coder review may be revised to meet current compliance requirements. MD Cortez Taylor MD 05/21/2018 7:16:52 AM This report has been signed electronically. Number of Addenda: 0 Note Initiated On: 05/21/2018 6:22 AM ____ No Clinically relevant changes since time of dictation ____ See Progress Notes for Changes ____ Dictated on Admission 05/21/18 0845 Date Eduardo Adams MD Progress Note - Endoscopy CC: DT: AC Signed EGD ([facility] SITE) Observed: 05/21/2018 Status: F Source: [place] 6:30 AM [facility] REPOSITORY Patient: BRANDIE BROWN : 1945 (73/F) Acct Num: [id number] Phys: Pelon MONROE,[place] Unit Num: [id number] Loc: EN Specimen: [id number] Received: 05/21/18942 Spec Type: EGD BIOPSY TISSUES TISSUES: A. Gastric mucous membrane B. Esophageal mucous membrane C. Esophageal mucous membrane COMMENT The results of immunohistochemistry for Helicobacter pylori will be reported separately ([id number]). GROSS DESCRIPTION A - Received in fixative is one container labeled with the patient's name and designated gastric antrum. The specimen consists of one irregular fragment of light burciaga soft tissue that measures 0.5 x 0.2 x 0.1 cm. The specimen is totally submitted in one cassette. B - Received in fixative is one container labeled with the patient's name and designated biopsy distal esophagus. The specimen consists of multiple irregular fragments of light burciaga soft tissue that in aggregate measure 1 x 0.3 x 0.1 cm. The specimen is totally submitted in one cassette. C - Received in fixative is one container labeled with the patient's name and designated mid esophageal biopsy. The specimen consists of one irregular fragment of light burciaga soft tissue that measures 0.4 x 0.2 x 0.1 cm. The specimen is totally submitted in one cassette. / SJ:aga 05/21/18 TC:3 CPT: 07022 x3 HEADER OPERATION: Colonoscopy, EGD (MOD) with PH probe PRE-OP DIAGNOSIS: GERD, esophagitis, screening for intestinal cancer, shortness of breath TISSUE SUBMITTED: A Antral biopsy, B Distal esophageal biopsy, C Mid esophageal biopsy MICROSCOPIC DESCRIPTION Slides are reviewed. MICROSCOPIC DIAGNOSIS A. Gastric antrum, biopsy: Mild chronic gastritis. B. Distal esophagus, biopsy: Fragments of benign squamous mucosa. No evidence of inflammation. C. Mid esophagus, biopsy: Fragments of benign squamous mucosa. No evidence of inflammation. AM:aga 05/22/18 Signed [facility] 05/22/18 <signature on file> Performed By: #### PEGD #### [facility] [address] [place] [address], [id number] IMMUNOHISTOCHEMISTRY Observed: 05/21/2018 Status: F Source: [place] 12:00 [facility] REPOSITORY Patient: BRANDIE BRONW : 1945 (73/F) Acct Num: [id number] Phys: Cortez Bird MD Unit Num: [id number] Loc: EN Specimen: [id number] Received: 05/22/181429 Spec Type: IMMUNO TISSUES TISSUES: A. Stomach, NOS SPECIMEN INFORMATION: Tissue Source: A Antral biopsy Clinical Info: GERD, esophagitis, screening Specimen Number: [id number] CPT code: 72281 METHODOLOGY: Deparaffinized sections of prefer/formalin-fixed tissue or PAP/DQ [...] their performance characteristics determined by [facility]. They may not have been cleared or approved by the U.S. Food and Drug Administration. The FDA has determined that such clearance or approval is not necessary. INTERPRETATION: A. Antral biopsy: Negative for Helicobacter pylori organisms. AM:aga 05/24/18 PHYSICIAN AND INSTITUTION [address] [address] Signed Edgard Pipe 05/24/18 <signature on file> Performed By: #### PIMM #### [facility] [address] [place], [address] ABDOMEN/PELVIS WITHOUT Observed: 05/08/2018 Status: F Source: [place] CONT 8:47 AM [facility] REPOSITORY [facility] Imaging Services [address] [place] [address] Abdomen/Pelvis without Cont MR#: [id number] Acct: [id number] Name: BRANDIE BROWN Rep #: [id number] : 1945 F 72 From: Kenneth Hunter MD PCP: Camryn Faith DO Status: REG CLI Study: Abdomen/Pelvis without Cont Date of Exam: 05/08/18 Exam# [id number] Ordering Dr: Pino Jang MD STUDY: CT ABDOMEN AND PELVIS WITHOUT CONTRAST REASON FOR EXAM: Female, 72 years old. Pain. History of kidney stones, cholecystectomy and appendectomy. RADIATION DOSAGE (If Supplied By Facility): CTDIvol = ( 8.95 ) mGy, DLP = ( 472.02 ) mGycm TECHNIQUE: Transaxial images were obtained from the dome of the diaphragm to the symphysis pubis with oral contrast, and without intravenous contrast. Sagittal and coronal images were reconstructed. Individualized dose optimization techniques were used for this CT. COMPARISON: CT dated 02/12/2017. FINDINGS: Evaluation of the abdominal viscera is limited in the absence of intravenous contrast. There is atelectasis at the lung bases. The visualized portions of the heart and pericardium are within normal limits. The patient is status post cholecystectomy. The liver demonstrates an unremarkable unenhanced appearance. The spleen is normal in size. There are calcified granulomata noted in the spleen. The pancreas demonstrates an unremarkable unenhanced appearance. The adrenal glands [...] There are no destructive osseous lesions. CT/Abdomen/Pelvis without Cont IMPRESSION: 3 mm nonobstructing stone in the collecting system of the right kidney. No additional urinary calculi. No hydronephrosis. No bowel obstruction or inflammation. Electronically Signed: Kenneth Hunter, at 19:31 EDT Tel , Service support , CC: Pino Jang MD; Camryn Faith DO White [employer] Supervisor: Signed UPPER GI W/BA Observed: 04/30/2018 Status: F Source: [place] SWALLOW 8:02 AM [facility] REPOSITORY [facility] Imaging Services [address] [place] [id number] Upper GI w/BA Swallow MR#: [id number] Acct: [id number] Name: BRANDIE BROWN Rep #: [id number] : 1945 F 72 From: Zbigniew Perez MD PCP: Camryn Faith DO Status: REG CLI Study: Upper GI w/BA Swallow Date of Exam: 04/30/18 Exam# [id number] Ordering Dr: Cortez Bird MD STUDY: AIR-CONTRAST UPPER GI SERIES. REASON FOR EXAM: Female, 72 years old. Epigastric pain. FLUOROSCOPY TIME (if supplied): (1:00) minutes/seconds TECHNIQUE: The patient ingested barium. Multiple images of the esophagus stomach and duodenum were obtained. COMPARISON: None. FINDINGS: The esophagus is unremarkable. There is no evidence of gastroesophageal reflux. No mass lesion is seen. The patient ingested a 12 mm tablet of barium without any difficulty. The stomach and duodenum are unremarkable. There is no evidence of ulceration. RAD/Upper GI w/BA Swallow IMPRESSION: Unremarkable examination. Electronically Signed: Zbingiew Perez MD at 15:59 EDT Tel [phone], Service support , CC: Camryn Faith DO; Cortez Bird MD White [employer] Supervisor: Signed SURGERY VISIT REPORT Observed: 04/25/2018 Status: F Source: [place] 9:12 AM [facility] [address] [place] [address] [address] [place] [address] OFFICE VISIT Date of Service: 04/25/18 MR#: [id number] Acct: [id number] Name: BRANDIE BROWN Rep #: [id number] : 1945 Provider: Cortez Bird MD Age/Sex: 72/F Location: [facility] Status: Signed Intake Vital Signs04/25/18 Height 5 ft 1 in 04/25/18 Weight: 149 lb 5 oz 04/25/18 Body Mass Index (BMI) 28.2 04/25/18 Blood Pressure 166/75 Intake Visit Reasons: Acid Reflux Chief Complaint: gerd, need for colonoscopy Inspector Elevators Required: No Is patient in pain?: No Allergies erythromycin base Allergy (Verified 04/25/18 08:41) Rash ibuprofen [From Motrin] Allergy (Verified 04/25/18 08:41) Rash dicyclomine HCl [From Bentyl] Adverse Reaction (Verified 04/25/18 08:41) Nausea nitrofurantoin Adverse Reaction (Verified 04/25/18 08:41) Nausea Sulfa (Sulfonamide Antibiotics) Adverse Reaction (Verified 04/25/18 08:41) Nausea Medications traMADol [Ultram] 100 mg PO BID 09/30/13 [History Confirmed 04/25/18] Bergamot [Nyack Bergamot] 02/12/17 [History Confirmed 04/25/18] Cyanocobalamin (Vitamin B-12) [B-12] 2,000 mcg PO DAILY 02/12/17 [History Confirmed 04/25/18] Duloxetine HCl 60 mg PO DAILY 02/12/17 [History Confirmed 04/25/18] Folic Acid 2 mg PO DAILY 02/12/17 [History Confirmed 04/25/18] busPIRone [Buspar] 15 mg PO BID 02/12/17 [History Confirmed 04/25/18] Esomeprazole Magnesium [Nexium 24Hr] 22.3 mg PO BID 03/14/17 [History Confirmed 04/25/18] aspirin 81 mg chewable tablet 81 mg PO QDAY 01/29/18 [History Confirmed 04/25/18] cholecalciferol (vit D3) 1,000 unit-vitamin K2 (MK4) 100 mcg tablet 1 tab PO QDAY 01/29/18 [History Confirmed 04/25/18] estradiol 0.01% (0.1 mg/gram) vaginal cream See Label Instructions VAGINAL .COMPLEX #42.5 g 01/29/18 [Rx Confirmed 04/25/18] ferrous sulfate 324 mg (65 mg iron) tablet,delayed release 324 mg PO QDAY tab 01/29/18 [History Confirmed 04/25/18] metformin ER 500 mg tablet,extended release 24 hr 500 mg PO QDAY 01/29/18 [History Confirmed 04/25/18] gabapentin 600 mg tablet 600 [...] of hysterectomy (Acute) History of laparoscopic cholecystectomy (Acute) Family History Mother CVA (cerebral vascular accident) Sister Diabetes Heart disease Brother Heart disease Daughter Breast cancer Social History Smoking Status: Never smoker alcohol intake: never substance use type: does not use caffeine: Yes what type of physical activity do you participate in: none seatbelt use: always do you feel safe at home: Yes additional social history: Octavia- Both are retired HPI HPI HPI: BRANDIE BROWN, is a 72 F who presents [...] cholecystectomy. To the diverticular disease. Demonstrated a small [...] cooperative, healthy appearing, comfortable, no acute distress [facility] Head: normal to inspection Eyes General: appearance normal, both eyes and all related structures Neck Neck: normal visual inspection Chest Chest palpation AND inspection: normal inspection of the chest Resp Effort AND Inspection: normal respiratory effort Auscultation: clear to auscultation bilaterally Cardio Rate: regular rate Rhythm: regular rhythm Heart Sounds: no murmurs GI Palpation: soft, no hepatosplenomegaly Other: Well-healed mini Pfannenstiel incision from her colectomy Well-healed larger transverse right lower quadrant incision from a previous appendectomy Small nontender umbilical hernia Musc Cervical Spine: normal cervical lordosis Skin General: no rashes or lesions noted Neuro General: CN's II-XI intact bilaterally Extrem General: no calf tenderness Psych Affect: normal affect Assessment AND Plan Problems 1. Shortness of breath [...] study to get imaging evidence of her upper GI tract. I am recommending a screening colonoscopy. The patient's previous successful screening colonoscopy was 2004. Her colonoscopy performed a year ago was not successful due to the severity of her diverticular [...] I appreciate the ongoing opportunity of assisting with her surgical care Cc: Dr. Camryn Bird M.D., F.A.C.S. Orders Orders: Coding Level of Care Code Off vis,est,level 3 Diagnoses Shortness of breath R06.02 Gastroesophageal reflux disease, esophagitis presence not specified K21.9 Esophagitis presence: esophagitis presence not specified Screening for intestinal cancer Z12.10 04/25/18 0912 <Electronically signed by Cortez Bird MD> Date Cortez Bird MD Cosigner Signature: Date (if applicable) CC: Camryn Faith DO STRESS REPORT Observed: 04/16/2018 Status: F Source: [place] 5:14 PM [facility] REPOSITORY [facility] Cardiovascular Services [address] [place] [address] MR#: [id number] Acct: [id number] Name: BRANDIE BROWN Rep #: [id number] : 1945 72 From: Julio Cote MD Primary Care: Camryn Faith DO Status: REG CLI Ordering Dr: Sex: F C Stress Test Report Date: 04/16/2018 Procedure: Exercise tolerance test/imaging study Indications: Shortness of breath/dyspnea on exertion Consent: Per [...] capacity was considered average. There was no complaint of chest discomfort during exercise or recovery. The examination was discontinued secondary to dyspnea. Impression: 1. Technically adequate (percent predicted maximal heart rate greater than 85%) exercise tolerance test 2. Peak exercise ECG with no obvious ECG changes 3. There were no cardiac dysrhythmias pretest, during exercise, or recovery. 4. Nuclear images pending Myocardial perfusion imaging study: Technique: The patient was injected with [...] 99m Cardiolite and subsequently stress SPECT Cardiolite nuclear imaging was obtained in the horizontal long, vertical long, and short axis views. A gated Cardiolite study at peak stress was obtained. Interpretation: Rest and stress SPECT Cardiolite nuclear imaging status post realignment, normalization, and attenuation correction, demonstrates the appearance of relative uniform tracer uptake and myocardial perfusion appearing within normal limits. There is end systolic thickening and brightening. The gated Cardiolite study demonstrates myocardial thickening and inward wall motion. The reported LVEF is 86 %. Impression: 1. Rest and stress SPECT Cardiolite nuclear imaging demonstrate relative uniform tracer uptake and myocardial perfusion appearing within normal limits. 2. The gated Cardiolite study reports an LVEF of 86 %. This note was generated with Nixonation software. It may contain incorrect words, spelling, and punctuation that were not noted in checking the note before signing. 04/16/184 <Electronically signed by Julio Cote MD> Date Julio Cote MD CC: Camryn Faith DO Date Dictated: 04/16/181708 Date Transcribed: 04/16/181708 White Sugar Supervisor: PM Signed ECHOCARDIOGRAM COMPLETE Observed: 04/16/2018 Status: F Source: [place] 4:00 PM [facility] REPOSITORY [facility] Cardiovascular [place] [place] [address] Echo Complete 04/16/18 0844 MR#: [id number] Acct: [id number] Name: BRANDIE BROWN Rep #: [id number] : 1945 72 From: Julio Cote MD Attending Dr: Camryn Faith DO Status: REG CLI Ordering Dr: Camryn Faith DO Date: 04/16/18 Location: [facility] Sex: F C Admitted: Reason For Study: SOB on exertion Procedure This was a 2D Doppler, Color Flow transthoracic echocardiogram. The exam was of fair technical quality due to diminished acoustic windows. The study was technically difficult. Exam performed in department. Left Ventricle Normal LV size. Left ventricular systolic function is normal. The estimated ejection fraction is 55 %. Diastolic function: considered indeterminate. No regional wall motion abnormalities noted. Right Ventricle Normal RV size. Normal systolic function. Atria Normal left atrium. Normal right atrium. No doppler evidence for ASD. Mitral Valve There is no mitral annular calcification. Normal mitral valve. Trivial mitral valve insufficiency. Tricuspid Valve Normal tricuspid valve. Trivial tricuspid valve insufficiency. Right ventricular systolic pressure estimated to be 28 mmHg. Aortic Valve Trisinus/trileaflet aortic valve. Mild diffuse aortic valve thickening. Pulmonic Valve The pulmonic valve is not well visualized. Great Vessels Normal sized aortic root. Pericardium/Pleural No pericardial effusion. MMode/2D Measurements AND Calculations LVIDd: 3.8 cm IVSd: 0.77 cm Ao root diam: 3.1 cm LVIDs: 2.6 cm LVPWd: 0.83 cm LA dimension: 3.5 cm FS: 32.2 % LAV(MOD-bp): 39.3 ml LVAd ap4: 24.3 cm2 SV(MOD-sp4): 36.5 ml LAV(MOD-bp) Indexed: 23.9 ml/m2 EDV(MOD-sp4): 65.9 ml LAV(MOD-sp2): 39.4 ml EDV(sp4-el): 67.8 ml LAV(MOD-sp4): 36.8 ml LVAs ap4: 14.5 cm2 ESV(MOD-sp4): 29.5 ml ESV(sp4-el): 28.9 ml EF(MOD-sp4): 55.3 % EF(sp4-el): 57.4 % SV(sp4-el): 38.9 ml LA A4 area: 15.1 cm2 RA A4 area: 12.8 cm2 Time Measurements MV dec time: 0.20 sec Doppler Measurements AND Calculations MV E max josé miguel: 85.0 cm/sec Lat Peak E' [...] slope: 317.5 cm/sec2 Ao V2 mean: 76.8 cm/sec MV [...] 68.5 cm/sec LV V1 VTI: 23.1 cm Interpretation Summary The study was technically difficult. Left ventricular systolic function is normal. The estimated ejection fraction is 55 %. Trivial mitral valve insufficiency. Trivial tricuspid valve insufficiency. Mild diffuse aortic valve thickening. Right ventricular systolic pressure estimated to be 28 mmHg. Diastolic function: considered indeterminate. Ordering Physician: Camryn Faith Referring Physician: Camryn Faith Performed By: Sam Quinones [facility] 04/16/18 1559 Date Julio Cote MD CC: Camryn Faith DO Date Dictated: 04/16/18 0844 Date Transcribed: 04/16/18 1559 White [employer] Supervisor: Signed ABDOMEN LIMITED Observed: 04/16/2018 Status: F Source: [place] 9:19 AM [facility] REPOSITORY [facility] Imaging Services [address] [place] [address] Abdomen Limited MR#: [id number] Acct: [id number] Name: BRANDIE BROWN Rep #: [id number] : 1945 F 72 From: Bairon Fernandez MD PCP: Camryn Faith DO Status: REG CLI Study: Abdomen Limited Date of Exam: 04/16/18 Exam# [id number] Ordering Dr: Camryn Faith DO STUDY: ABDOMINAL ULTRASOUND - RIGHT UPPER QUADRANT REASON FOR VISIT: Female, 72 years old. Epigastric pain x3 months TECHNIQUE: Ultrasound evaluation of the right upper quadrant was performed with real-time and static rene-scale imaging. TECHNICAL QUALITY: Adequate. COMPARISON: 05/03/2016 FINDINGS: [...] cholecystectomy Limited evaluation of the left lower quadrant did not demonstrate a suspicious abnormality. There is sonographic evidence of a stone in the left kidney. Electronically Signed: Terry Fernandez MD at 12:14 EDT , Service support , CC: Camryn Faith DO [employer] Supervisor: Signed CBC W/DIFF, AUTOMATED Collected: 04/04/2018 Status: F Source: [place] 9:31 AM [facility] REPOSITORY TYPE CODE TESTS RESULT OUT OF RANGE REFERENCE UNITS LAB L100.1000 4.4-11.0 K/mm3 Normal WBC 4.7 LAB L100.1200 4.2-5.4 M/mm3 Low RBC 3.94 LAB L100.1300 12.0-15.0 g/dl Normal HGB 12.0 LAB L100.1400 37-47 % Normal HCT 37.8 LAB L100.1500 81-99 fL Normal MCV 95.9 LAB L100.1600 27.0-32.0 pg Normal MCH 30.5 LAB L100.1700 32-36 g/gl Low MCHC 31.7 LAB L100.1810 11.6-14.6 % Normal RDW CV 13.6 LAB L100.1820 35.1-43.9 fl High RDW SD 46.1 LAB L100.1900 150-450 K/mm3 Normal PLT 392 LAB L100.2000 6.2-12.0 fl Normal MPV 9.6 LAB L100.2100 47-70 % High NEUT% 75.2 LAB L100.2200 19-41 % Low LY% 15.1 LAB L100.2300 0-10 % Normal MONO% 8.9 LAB L100.2400 0-5 % Normal EO% 0.4 LAB L100.2500 0-1 % Normal BASO% 0.2 LAB L100.2550 0.0-0.9 % Normal IM GRAN % 0.200 Result Comment: IG% - Immature Granulocytes (promyelocytes, myelocytes and metamyelocytes) > 1% indicates that a LEFT SHIFT is Present. LAB L100.2620 2.0-7.7 X10 3/uL Normal Absolute Neut 3.5 LAB L100.2720 0.83-4.51 X10 3/ul Low Absolute Lymph 0.71 Performed By: #### L100.0100 #### [facility] [place], [address] COMPREHENSIVE METABOLIC Collected: 04/04/2018 Status: F Source: [place]AN[place]ARD 9:31 AM [facility] REPOSITORY TYPE CODE TESTS RESULT OUT OF RANGE REFERENCE UNITS LAB L501.0100 74-106 mg/dL Normal GLU 98 Result Comment: Please note revised GLUCOSE reference range effective 2017. LAB L501.1000 7-18 mg/dL Normal BUN 14 LAB L501.1100 0.55-1.02 mg/dL Normal CREAT,SERUM 1.02 Result Comment: The validity of the calculated GFR AND GFRAA in patients over 70 years has not been determined. Clinical correlation is essential. LAB L501.1110 >60 mL/min Low EST GFR 56 Result Comment: Non- GFR Calc LAB L501.1115 >60 mL/min Normal EST GFR - AA 68 Result Comment: GFR Calc LAB L501.1300 10-20 RATIO Normal BUN/CRE 13.7 LAB L501.1500 6.4-8.2 g/dL T Normal PROT 7.1 LAB L501.1800 3.2-5.0 g/dL Normal ALB 3.6 LAB L501.1950 2.2-4.2 g/dL Normal GLOB 3.5 LAB L501.2000 0.9-2.4 RATIO Normal A/G 1.0 LAB L501.2200 8.5-10.1 mg/dL CA Normal 9.1 LAB L501.4100 15-37 U/L Normal AST 30 LAB L501.4305 45-117 U/L Normal ALK P 91 LAB L501.4405 13-56 U/L Normal ALT 32 LAB L501.4600 0.20-1.00 mg/dL T Normal BILI 0.30 LAB L501.5300 136-145 mmol/L NA Normal 144 LAB L501.5600 3.5-5.1 mmol/L K Normal 4.0 LAB L501.5900 98-107 mmol/L CL Normal 107 LAB L501.6100 21.0-32.0 mmol/L Normal CO2 27.0 LAB L501.6200 5-15 Normal GAP 10 Performed By: #### L500.4050 #### [facility] [address] [place], [place], [address] CBC W/DIFF, AUTOMATED Collected: 02/19/2018 Status: F Source: [place] 8:29 AM [facility] REPOSITORY TYPE CODE TESTS RESULT OUT OF RANGE REFERENCE UNITS LAB L100.1000 4.4-11.0 K/mm3 Normal WBC 5.8 LAB L100.1200 4.2-5.4 M/mm3 Low RBC 4.17 LAB L100.1300 12.0-15.0 g/dl Normal HGB 13.0 LAB L100.1400 37-47 % Normal HCT 40.5 LAB L100.1500 81-99 fL Normal MCV 97.1 LAB L100.1600 27.0-32.0 pg Normal MCH 31.2 LAB L100.1700 32-36 g/gl Normal MCHC 32.1 LAB L100.1810 11.6-14.6 % Normal RDW CV 13.8 LAB L100.1820 35.1-43.9 fl High RDW SD 47.7 LAB L100.1900 150-450 K/mm3 Normal PLT 358 LAB L100.2000 6.2-12.0 fl Normal MPV 9.8 LAB L100.2100 47-70 % High NEUT% 77.1 LAB L100.2200 19-41 % Low LY% 14.5 LAB L100.2300 0-10 % Normal MONO% 7.6 LAB L100.2400 0-5 % Normal EO% 0.2 LAB L100.2500 0-1 % Normal BASO% 0.3 LAB L100.2550 0.0-0.9 % Normal IM GRAN % 0.300 Result Comment: IG% - Immature Granulocytes (promyelocytes, myelocytes and metamyelocytes) > 1% indicates that a LEFT SHIFT is Present. LAB L100.2620 2.0-7.7 X10 3/uL Normal Absolute Neut 4.5 LAB L100.2720 0.83-4.51 X10 3/ul Normal Absolute Lymph 0.84 Performed By: #### L100.0100 #### [facility] [address] [facility] [address] [place], [address] COMPREHENSIVE METABOLIC Collected: 02/19/2018 Status: F Source: [facility] 8:29 AM [facility] REPOSITORY TYPE CODE TESTS RESULT OUT OF RANGE REFERENCE UNITS LAB L501.0100 74-106 mg/dL Normal GLU 90 Result Comment: Please note revised GLUCOSE reference range effective 2017. LAB L501.1000 7-18 mg/dL Normal BUN 9 LAB L501.1100 0.55-1.02 mg/dL Normal CREAT,SERUM 0.93 Result Comment: The validity of the calculated GFR AND GFRAA in patients over 70 years has not been determined. Clinical correlation is essential. LAB L501.1110 >60 mL/min Normal EST GFR 63 Result Comment: Non- GFR Calc LAB L501.1115 >60 mL/min Normal EST GFR - AA 76 Result Comment: GFR Calc LAB L501.1300 10-20 RATIO Low BUN/CRE 9.7 LAB L501.1500 6.4-8.2 g/dL Normal T PROT 7.4 LAB L501.1800 3.2-5.0 g/dL Normal ALB 3.8 LAB L501.1950 2.2-4.2 g/dL Normal GLOB 3.6 LAB L501.2000 0.9-2.4 RATIO Normal A/G 1.1 LAB L501.2200 8.5-10.1 mg/dL Normal CA 9.7 LAB L501.4100 15-37 U/L Normal AST 25 LAB L501.4305 45-117 U/L Normal ALK P 101 LAB L501.4405 13-56 U/L Normal ALT 34 LAB L501.4600 0.20-1.00 mg/dL Normal T BILI 0.60 LAB L501.5300 136-145 mmol/L Normal NA 139 LAB L501.5600 3.5-5.1 mmol/L Normal K 3.9 LAB L501.5900 98-107 mmol/L Normal CL 104 LAB L501.6100 21.0-32.0 mmol/L Normal CO2 30.0 LAB L501.6200 5-15 Normal GAP 5 Performed By: #### L500.4050 #### [facility] Laboratory [address] [facility] [address] [place], [address] DIAG MAMM W/CAD, Observed: 02/01/2018 Status: F Source: [facility] B[place] 1:41 PM [facility] REPOSITORY [facility] Imaging Services [address] [facility] [place] [address] DIAG MAMM W/CAD, BILAT MR#: [id number] Acct: [id number] Name: BRANDIE BROWN Rep #: [id number] : 1945 F 72 From: Zbigniew Perez MD PCP: Camryn Faith DO Status: REG CLI Study: DIAG MAMM W/CAD, BILAT Date of Exam: 02/01/18 Exam# [id number] Ordering Dr: Lawanda Patel TECH ED/WOODSHOP TEACHER-Sara MAMMOGRAPHY - BILATERAL DIAGNOSTIC REASON FOR EXAM: Female, 72 years old. Right breast lump. PERTINENT HISTORY: Daughter with breast cancer. Prior left excisional breast biopsy. TECHNIQUE: Digital bilateral breast stephanie (3D mammographic acquisition) in the CC and MLO projections. 2-D mediolateral oblique (MLO) and craniocaudad (CC) views of both breasts were obtained. CAD: Full Field Digital Mammography with Computer Added Detection was performed. COMPARISON: Comparison is made with prior study dated April 16, 2017 and February 15, 2016. FINDINGS: Breast Composition: There are scattered areas of fibroglandular density. There are no dominant masses or suspicious calcifications. Stable 4 mm well-defined nodule in the upper slightly lateral portion of the left breast. No other significant abnormalities are identified. There has been no significant change since the prior study. BI/DIAG MAMM W/CAD, BILAT IMPRESSION: Stable bilateral diagnostic mammogram. With the patient's [...] a clinically suspicious abnormality. Electronically Signed: Zbigniew Perez MD at 15:36 EDT Tel [phone], Service support , CC: CHIQUIS Patel; Camryn Faith DO White Sugar Supervisor: Signed BREAST LIMITED Observed: 02/01/2018 Status: F Source: [facility] UNILATERAL 1:41 PM [facility] REPOSITORY [facility] [place] [address] Breast Limited Unilateral MR#: [id number] Acct: [id number] Name: BRANDIE BROWN Rep #: [id number] : 1945 F 72 From: Zbigniew Perez MD PCP: Camryn Faith DO Status: REG CLI Study: Breast Limited Unilateral Date of Exam: 02/01/18 Exam# [id number] Ordering Dr: Lawanda Patel TECH ED/WOODSHOP TEACHER-Sara STUDY: ULTRASOUND BREAST - RIGHT REASON FOR EXAM: Female, 72 years old. Palpable lump in the right breast. TECHNIQUE: Axial and longitudinal images of the RIGHT breast were performed with a high resolution ultrasound transducer. COMPARISON: Comparison is made with prior mammogram done earlier today. FINDINGS: RIGHT Breast: The inferior aspect of the right breast was examined by ultrasound. No solid or cystic mass lesion is seen. US/Breast Limited Unilateral IMPRESSION: Unremarkable sonographic examination. ASSESSMENT CATEGORY: BIRADS Category 1: Negative. A letter regarding these results will be sent to the patient by the facility within 30 days. Electronically Signed: Zbigniew Perez MD at 15:46 EDT Tel [phone], Service support , CC: CHIQUIS Patel; Camryn Faith DO White Sugar Supervisor: Signed CBC W/DIFF, AUTOMATED Collected: 01/23/2018 Status: F Source: [facility] 10:52 AM [facility] REPOSITORY TYPE CODE TESTS RESULT OUT OF RANGE REFERENCE UNITS LAB L100.1000 4.4-11.0 K/mm3 Normal WBC 4.7 LAB L100.1200 4.2-5.4 M/mm3 Normal RBC 4.20 LAB L100.1300 12.0-15.0 g/dl Normal HGB 12.8 LAB L100.1400 37-47 % Normal HCT 40.8 LAB L100.1500 81-99 fL Normal MCV 97.1 LAB L100.1600 27.0-32.0 pg Normal MCH 30.5 LAB L100.1700 32-36 g/gl Low MCHC 31.4 LAB L100.1810 11.6-14.6 % High RDW CV 15.3 LAB L100.1820 35.1-43.9 fl High RDW SD 53.4 LAB L100.1900 150-450 K/mm3 Normal PLT 344 LAB L100.2000 6.2-12.0 fl Normal MPV 9.4 LAB L100.2100 47-70 % High NEUT% 70.4 LAB L100.2200 19-41 % Normal LY% 19.4 LAB L100.2300 0-10 % Normal MONO% 8.5 LAB L100.2400 0-5 % Normal EO% 1.3 LAB L100.2500 0-1 % Normal BASO% 0.2 LAB L100.2550 0.0-0.9 % Normal IM GRAN % 0.200 Result Comment: IG% - Immature Granulocytes (promyelocytes, myelocytes and metamyelocytes) > 1% indicates that a LEFT SHIFT is Present. LAB L100.2620 2.0-7.7 X10 3/uL Normal Absolute Neut 3.3 LAB L100.2720 0.83-4.51 X10 3/ul Normal Absolute Lymph 0.91 Performed By: #### L100.0100 #### [facility] Laboratory [address] [place], [place], [id number] COMPREHENSIVE METABOLIC Collected: 01/23/2018 Status: F Source: [facility] 10:52 AM [facility] REPOSITORY TYPE CODE TESTS RESULT OUT OF RANGE REFERENCE UNITS LAB L501.0100 74-106 mg/dL Normal GLU 105 Result Comment: Fasting Glucose result from 100 to 125 mg/dL suggests IMPAIRED HOMEOSTASIS per A.D.A. criteria. Please note revised GLUCOSE reference range effective 2017. LAB L501.1000 7-18 mg/dL Normal BUN 11 LAB L501.1100 0.55-1.02 mg/dL Normal CREAT,SERUM 0.97 Result Comment: The validity of the calculated GFR AND GFRAA in patients over 70 years has not been determined. Clinical correlation is essential. LAB L501.1110 >60 mL/min Normal EST GFR 60 Result Comment: Non- GFR Calc LAB L501.1115 >60 mL/min Normal EST GFR - AA 72 Result Comment: GFR Calc LAB L501.1300 10-20 RATIO Normal BUN/CRE 11.3 LAB L501.1500 6.4-8.2 g/dL T Normal PROT 7.6 LAB L501.1800 3.2-5.0 g/dL Normal ALB 3.9 LAB L501.1950 2.2-4.2 g/dL Normal GLOB 3.7 LAB L501.2000 0.9-2.4 RATIO Normal A/G 1.1 LAB L501.2200 8.5-10.1 mg/dL CA Normal 9.7 LAB L501.4100 15-37 U/L High AST 54 LAB L501.4305 45-117 U/L Normal ALK P 100 LAB L501.4405 13-56 U/L High ALT 66 LAB L501.4600 0.20-1.00 mg/dL T Normal BILI 0.40 LAB L501.5300 136-145 mmol/L NA Normal 140 LAB L501.5600 3.5-5.1 mmol/L K Normal 4.0 LAB L501.5900 98-107 mmol/L CL Normal 105 LAB L501.6100 21.0-32.0 mmol/L Normal CO2 29.0 LAB L501.6200 5-15 Normal GAP 6 Performed By: #### L500.4050 #### [facility] Laboratory [address] [facility]. [place], [place], [address] CAROTID DUPLEX Observed: 12/26/2017 Status: F Source: [facility] ULTRASOUND 8:25 AM [facility] REPOSITORY [facility] Cardiovascular Services [address] [facility] [place] [address] Carotid Duplex Ultrasound 12/25/17 1043 MR#: [id number] Acct: [id number] Name: BRANDIE BROWN Rep #: [id number] : 1945 72 From: Ej Ortiz MD Attending Dr: Camryn Faith DO Status: REG CLI Ordering Dr: Camryn Faith DO Date: 12/25/17 Location: [facility] Sex: F C Admitted: Reason For Study: Carotid stenosis Rt. Velocities/BP Lt. Velocities/BP Prox CCA 87.9/18.2 cm/sec. Prox CCA 134.0/24.4 cm/sec. Mid CCA 92.6/19.3 cm/sec. Mid CCA 119.0/26.7 cm/sec. Dist CCA 92.0/18.2 cm/sec. Dist CCA 86.4/23.6 cm/sec. Prox ICA 81.5/17.6 cm/sec. Prox ICA 54.3/13.8 cm/sec. Mid ICA 105.0/32.2 cm/sec. Mid ICA 87.4/27.0 cm/sec. Dist ICA 80.7/19.2 cm/sec. Dist ICA 96.7/29.3 cm/sec. Rt. ICA/CCA = 1.1. Lt. ICA/CCA = .81. Prox ECA 151.0/22.8 cm/sec. Prox ECA 113.0/17.6 cm/sec. Rt. Vert. 59.8/17.0 cm/sec. Lt. Vert. 80.3/18.8 cm/sec. Right Extracranial There is intimal thickening but no significant atherosclerotic plaque noted in the right common [...] the left vertebral artery. Procedure Carotid Duplex 38135. Exam performed in department. Interpretation Summary Mild (<50%) stenosis right extracranial internal carotid. Mild (<50%) stenosis left extracranial internal carotid. Flow within the vertebral arteries is antegrade bilaterally. Ordering Physician: Camryn Faith Referring Physician: Camryn Faith Performed By: Adelita Ramirez RVT 12/26/17823 Date Ej Ortiz MD CC: Camryn Faith DO Date Dictated: 12/25/17 1043 Date Transcribed: 12/26/17823 White Sugar Supervisor: Signed COMPREHENSIVE METABOLIC Collected: 10/15/2017 Status: F Source: [facility] [place] 8:15 AM [facility] REPOSITORY TYPE CODE TESTS RESULT OUT OF RANGE REFERENCE UNITS LAB L501.0100 74-106 mg/dL Normal GLU 92 Result Comment: Please note revised GLUCOSE reference range effective 2017. LAB L501.1000 7-18 mg/dL Normal BUN 8 LAB L501.1100 0.55-1.02 mg/dL Normal CREAT,SERUM 0.98 Result Comment: The validity of the calculated GFR AND GFRAA in patients over 70 years has not been determined. Clinical correlation is essential. LAB L501.1110 >60 mL/min Low EST GFR 59 Result Comment: Non- GFR Calc LAB L501.1115 >60 mL/min Normal EST GFR - AA 71 Result Comment: GFR Calc LAB L501.1300 10-20 RATIO Low BUN/CRE 8.2 LAB L501.1500 6.4-8.2 g/dL Normal T PROT 7.2 LAB L501.1800 3.2-5.0 g/dL Normal ALB 3.7 LAB L501.1950 2.2-4.2 g/dL Normal GLOB 3.5 LAB L501.2000 0.9-2.4 RATIO Normal A/G 1.1 LAB L501.2200 8.5-10.1 mg/dL Normal CA 9.2 LAB L501.4100 15-37 U/L Normal AST 28 LAB L501.4305 45-117 U/L Normal ALK P 74 LAB L501.4405 13-56 U/L Normal ALT 38 Result Comment: Please note revised ALT reference range effective 2017. LAB L501.4600 0.20-1.00 mg/dL Normal T BILI 0.40 LAB L501.5300 136-145 mmol/L Normal NA 142 LAB L501.5600 3.5-5.1 mmol/L Normal K 3.8 LAB L501.5900 98-107 mmol/L Normal CL 106 LAB L501.6100 21.0-32.0 mmol/L Normal CO2 29.0 LAB L501.6200 5-15 Normal GAP 7 Performed By: #### L500.4050 #### [facility] Laboratory [address] [place], [place], [address] CBC W/DIFF, AUTOMATED Collected: 10/15/2017 Status: F Source: [facility] 8:15 AM [facility] REPOSITORY TYPE CODE TESTS RESULT OUT OF RANGE REFERENCE UNITS LAB L100.1000 4.4-11.0 K/mm3 Low WBC 3.5 LAB L100.1200 4.2-5.4 M/mm3 Low RBC 3.97 LAB L100.1300 12.0-15.0 g/dl Normal HGB 12.1 LAB L100.1400 37-47 % Normal HCT 37.4 LAB L100.1500 81-99 fL Normal MCV 94.2 LAB L100.1600 27.0-32.0 pg Normal MCH 30.5 LAB L100.1700 32-36 g/gl Normal MCHC 32.4 LAB L100.1810 11.6-14.6 % High RDW CV 15.3 LAB L100.1820 35.1-43.9 fl High RDW SD 50.6 LAB L100.1900 150-450 K/mm3 Normal PLT 356 LAB L100.2000 6.2-12.0 fl Normal MPV 9.8 LAB L100.2100 47-70 % High NEUT% 70.8 LAB L100.2200 19-41 % Normal LY% 20.2 LAB L100.2300 0-10 % Normal MONO% 8.4 LAB L100.2400 0-5 % Normal EO% 0.0 LAB L100.2500 0-1 % Normal BASO% 0.3 LAB L100.2550 0.0-0.9 % Normal IM GRAN % 0.300 Result Comment: IG% - Immature Granulocytes (promyelocytes, myelocytes and metamyelocytes) > 1% indicates that a LEFT SHIFT is Present. LAB L100.2620 2.0-7.7 X10 3/uL Normal Absolute Neut 2.5 LAB L100.2720 0.83-4.51 X10 3/ul Low Absolute Lymph 0.70 Performed By: #### L100.0100 #### [facility] Laboratory [address] [place], [place], [address] URGENT CARE VISIT Observed: 09/26/2017 Status: F Source: [facility] REPORT 12:16 PM [facility] REPOSITORY [facility] [address] [place] [address] 6 [place], [place] [address] OFFICE VISIT Date of Service: 08/28/17 MR#: [id number] Acct: [id number] Name: BRANDIE BROWN Rk Rep #: [id number] : 1945 Provider: Carmine ELDER Age/Sex: 72/F Location: [facility] Status: Signed Intake Vital Signs08/28/17 Height 5 ft 1 in 08/28/17 Weight: 146 lb 08/28/17 Body Mass Index (BMI) 27.6 Intake Visit Reasons: Sinus infection Inspector Elevators Required: No Is patient in pain?: No Allergies erythromycin base Allergy (Verified 08/28/17 09:42) Rash ibuprofen [From Motrin] Allergy (Verified 08/28/17 09:42) Rash dicyclomine HCl [From Bentyl] Adverse Reaction (Verified 08/28/17 09:42) Nausea nitrofurantoin Adverse Reaction (Verified 08/28/17 09:42) Nausea Sulfa (Sulfonamide Antibiotics) Adverse Reaction (Verified 08/28/17 09:42) Nausea Medications TraMADol [Ultram] 100 mg PO BID 09/30/13 [History Confirmed 03/20/17] Bergamot [Nyack Bergamot] 02/12/17 [History] BusPIRone [Buspar] 15 mg PO BID 02/12/17 [History Confirmed 03/14/17] Cyanocobalamin (Vitamin B-12) [B-12] 2,000 mcg PO DAILY 02/12/17 [History Confirmed 03/14/17] Duloxetine HCl 60 mg PO DAILY 02/12/17 [History Confirmed 03/14/17] Folic Acid 2 mg PO DAILY 02/12/17 [History Confirmed 03/14/17] Hydroxychloroquine [Plaquenil] 200 mg PO DAILY 02/12/17 [History Confirmed 03/14/17] Methotrexate 12.5 mg PO Q7D 02/12/17 [History Confirmed 03/14/17] Esomeprazole Magnesium [Nexium 24Hr] 22.3 mg PO BID 03/14/17 [History Confirmed 03/19/17] cephalexin 500 mg capsule 500 mg PO Q12H 10 Days #20 cap 08/28/17 [Rx Confirmed 08/28/17] PFSH Medical History Hyperlipidemia (Chronic) Acute diverticulitis (Acute) Social History Smoking Status: Never smoker HPI Sinusitis: Details: BRANDIE BROWN, is a 72 F who presents to the office today for complaint of sinus congestion pressure and pain for the past 10 day. She is a pressure pain is caused intermittent headaches which is made better with ibuprofen. She also complains of slightly sore [...] fast heart rate Neuro Neurology: Positive for headache(s); no confusion Psych Psychiatric: No abnormal sleep pattern, No confusion Exam Const General: cooperative HENMT Head: normal to inspection Ears: hearing grossly normal bilaterally Nose: nasal discharge purulent Face and sinus: sinus tenderness frontal and maxillary Mouth: oral mucosae normal Throat: abnormal tonsil bilaterally, postnasal drainage Resp Effort AND Inspection: normal respiratory effort Auscultation: Bilateral: Clear to Auscultation Cardio Rate: regular rate Rhythm: regular rhythm Neuro General: alert, CN's II-XI intact bilaterally Psych Appearance: grossly normal Mental Status: mental status grossly normal Assessment AND Plan 1. Acute non-recurrent maxillary sinusitis J01.00; J01.00 Status Acute Plan Encouraged to get plenty of rest, drink lots of clear liquids, and use Tylenol or Ibuprofen (unless contraindicated) for fever and comfort. Patient also educated on other symptomatic management techniques. To be seen in 7-10 days if no improvement; sooner if worsening of symptoms. Patient advised of potential red flags when appropriate report to the ED. Patient verbalized understanding all the above. Plan Detail Other Medications New: Coding Level of Care Code Off vis,new,level 3 Diagnoses Acute non-recurrent maxillary sinusitis J01.00; J01.00 Chronicity: acute Recurrence: non-recurrent Sinusitis location: maxillary 09/10/17 1614 <Electronically signed by Carmine ELDER> Date Carmine ELDER Cosigner Signature: Date (if applicable) CC: ALLERGIES ALLERGIES DATE TYPE / NAME / CODE REACTION SEVERITY SOURCE CODE 06/24/2018 Drug dicyclomine Nausea Unknown [place] Allergy/41 HCl/[id number](RXNOR Community 1295484([facility]) Repository 06/24/2018 Drug Sulfa (Sulfonamide Nausea Unknown [place] Allergy/41 Antibiotics)/[id number] [facility] 7205765([address]) Repository 06/24/2018 Drug ibuprofen/[id number] Rash Unknown [place] Allergy/41 (RXNORM) [facility] 3827893([facility]) Repository 06/24/2018 Drug erythromycin Rash Unknown [place] Allergy/41 base/H244752221(RXNO Community 6928930([facility]) Hospital OMED CT) Repository 06/24/2018 Drug nitrofurantoin/F0060 Nausea Unknown [place] Allergy/41 14003(RXNORM) Community 2845805([facility] OMED [facility]) Repository 01/08/2007 DRUG IBUPROFEN RASH [address] 1074983( Repository OMED CT) 05/23/2006 DRUG DICYCLOMINE HCL UNKNOWN [place] [address] [address] [place] 8126970( Repository OMED CT) 05/23/2006 DRUG/34096 ERYTHROMYCIN UNKNOWN [facility] 1003(SNOME [address] [place] [address]) Repository 05/23/2006 DRUG/24843 NITROFURANTOIN [facility] 1003(SNOME MONOHYD/M-CRYST [address] [place] [address]) Repository 05/23/2006 Drug SULFA (SULFONAMIDE OTHER: SEE C [facility] Class/4195 ANTIBIOTICS) [address] [place] [address](SN Repository ED CT) ENCOUNTERS ENCOUNTERS ADMIT/DISCHARGE ACCOUNT ADMITTING ENCOUNTER LOCATION SOURCE NUMBER CLASS 08/13/2018 [id number] Ambulatory [facility] ing:MTLAB Repository 07/03/2018/07/03/20 [id number] Ambulatory [address] Repository 07/03/2018/07/04/20 [id number] Ambulatory [address] Repository 07/03/2018/07/04/20 [id number] Ambulatory [address] Repository 06/24/2018/06/24/20 [id number] Ambulatory BMSBuilding:B Sheri 18 MS.[facility] Repository 06/13/2018/06/13/20 [id number] Ambulatory [address] Hospital ing:EN Repository 06/10/2018 [id number] Ambulatory [facility] Hospital ing:MTLAB Repository 05/31/2018 [id number] Ambulatory [facility] Hospital ing:NM Repository 05/28/2018/05/28/20 [id number] Ambulatory BMSBuilding:B [place] 18 MS.[facility] Repository 05/23/2018 [id number] Ambulatory [facility] Hospital ing:OPBD Repository 05/21/2018/05/21/20 [id number] Ambulatory [place] [facility] HospitalBuild Hospital ing:EN Repository 05/21/2018/05/21/20 [id number] Ambulatory BMSBuilding:B [place]ri 18 MS.[facility] Repository 05/08/2018 [id number] Ambulatory [facility] HospitalBuild Hospital ing:CT Repository 04/30/2018 [id number] Ambulatory [facility] HospitalBuild Hospital ing:RAD Repository 04/25/2018/04/25/20 [id number] Ambulatory BMSBuilding:B Sheri 18 MS.[facility] Repository 04/16/2018 [id number] Ambulatory [facility] HospitalBuild Hospital ing:CVS Repository 04/16/2018 [id number] [facility] 04/04/2018 [id number] Ambulatory [facility] HospitalBuild Hospital ing:MTLAB Repository 02/19/2018 [id number] Ambulatory [facility] HospitalBuild Hospital ing:MTLAB Repository 02/01/2018 [id number] Ambulatory [facility] HospitalBuild Hospital ing:OPUS Repository 01/29/2018/01/30/20 [id number] Ambulatory BMSBuilding:B [place] 18 [facility] Hospital Repository 01/23/2018 [id number] Ambulatory [facility] HospitalBuild Hospital ing:MTLAB Repository 12/25/2017 [id number] Ambulatory [facility] HospitalBuild Hospital ing:CVS Repository 10/15/2017 [id number] Ambulatory [facility] HospitalBuild Hospital ing:MTLAB Repository 08/28/2017/08/28/20 [id number] Ambulatory BMSBuilding:B [place] 17 MS.[facility] Hospital Repository PAYERS PAYERS ENCOUNTER GUARANTOR PAYER SUBSCRIBER SOURCE 08/13/2018 BRANDIE [id number] Primary BRANDIE Wade [facility] Insurance:DM BULL[place]: Community [place] MEDICARE PPOPolicy [id number] Hospital [address]Fyf: (330) Number: Repository [phone] ) [id number] Date:3075-34-20UY [address] [place] [id number]: 08/13/2018 Secondary NOT GIVENUNK [place] Insurance:SELF PAY [facility] Number: Effective Repository Date:2018-08-13 06/24/2018 BRANDIE BROWN3589 Primary [address]IE [address] Insurance:HUMANA MOOREDOB: Community [address] [place] [address], [place] [facility] [id number] Hospital [address]Nce: (330) Number: Repository [phone] () [id number] Date:8401-43-67IX [address] [address]JI: 06/24/2018 Secondary NOT GIVENUNK [place] Insurance:SELF PAY [facility] Number: Effective Repository Date:2018-06-24 06/13/2018 BRANDIE ROSARIO9 Primary [address]IE [address] Insurance:HUMANA MOOREDOB: [facility] [place] [facility] OPolicy [id number] Hospital [address]Xmq: (330) Number: Repository [phone] () [id number] Date:6598-82-51NH [address] [address]PL: 06/13/2018 Secondary NOT GIVENUNK [place] Insurance:SELF PAY [facility] Number: Effective Repository Date:2018-05-28 06/10/2018 BRANDIE ROSARIO9 Primary [address]IE [address] Insurance:HUMANA MOOREDOB: [facility] [place] [facility] [id number] Hospital [address]Nqb: (330) Number: Repository [phone] () [id number] Date:1444-20-65PQ [address] [address]UR: 06/10/2018 Secondary NOT GIVENUNK [place] Insurance:SELF PAY [facility] Number: Effective Repository Date:2018-06-10 05/31/2018 BRANDIE ROSARIO9 Primary [address] Insurance:HUMANA MOOREDOB: [address] MEDICARE [facility] [id number] Hospital [address]Xuy: (330) Number: Repository [phone] () [id number] Date:3545-61-30BY [address]4601WP: 05/31/2018 Secondary NOT GIVENUNK Sheri Insurance:SELF PAY [facility] Number: Effective Repository Date:2018-05-28 05/28/2018 BRANDIE Beckman [id number] Primary [address]IE [address] Insurance:HUMANA MOOREDOB: [address] MEDICARE [facility] [id number] Hospital [address]Sye: (330) Number: Repository [phone] () [id number] Date:3400-44-12II [address]4601WP: 05/28/2018 Secondary NOT GIVENUNK Sheri Insurance:SELF PAY [facility] Number: Effective Repository Date:2018-05-28 05/23/2018 BRANDIE Beckman [id number] Primary [address] Insurance:HUMANA MOOREDOB: [address] MEDICARE [facility] [id number] Hospital [address]Iki: (330) Number: Repository [phone] () [id number] Date:5152-05-55ZT [place] [id number]: 05/23/2018 Secondary NOT GIVENUNK [place] Insurance:SELF PAY [facility] Number: Effective Repository Date:2018-05-22 05/21/2018 BRANDIE Beckman [id number] [address] Insurance:HUMANA MOOREDOB: [address] MEDICARE [facility] [id number] Hospital [address]Hrm: (330) Number: Repository [phone] () [id number] Date:1577-35-44BE [address] [place] [address]EU: 05/21/2018 Secondary NOT GIVENUNK [place] Insurance:SELF PAY [facility] Number: Effective Repository Date:2018-04-25 05/21/2018 BRANDIE Beckman [id number] Primary [address] Insurance:HUMANA MOOREDOB: Community [place] PPOPolicy [id number] Hospital [address]Axg: (330) Number: Repository [phone] () [id number] Date:5955-96-25UB [address] [place] [address] [id number]: 05/21/2018 Secondary NOT GIVENUNK Sheri Insurance:SELF PAY [facility] Number: Effective Repository Date:2018-05-21 05/08/2018 BRANDIE [id number] Primary BRANDIE [address] Insurance:HUMANA MOOREDOB: [address] MEDICARE [facility] [id number] Hospital [address]Ajz: [phone]) Number: Repository [phone] () [id number] Date:2471-92-41HV [address] [address]OR: 05/08/2018 Secondary NOT GIVENUNK Sheri Insurance:SELF PAY [facility] Number: Effective Repository Date:2018-04-30 04/30/2018 BRANDIE [id number] Primary [address] Insurance:HUMANA MOOREDOB: [address] MEDICARE [facility] [id number] Hospital [address]Dyb: [phone]) Number: Repository [phone] () [id number] Date:4077-74-06MB [address] [place] [address]TJ: 04/30/2018 Secondary NOT GIVENUNK [place] Insurance:SELF PAY [facility] Number: Effective Repository Date:2018-04-25 04/25/2018 BRANDIE [id number] [address] Insurance:HUMANA MOOREDOB: [address] [facility] [id number] [facility] [address]Nkn: [phone]) Number: Repository [phone] () [id number] Date:2862-81-73JE [address]46[address]WP: 04/25/2018 Secondary NOT GIVENUNK Sheri Insurance:SELF PAY [facility] Number: Effective Repository Date:2018-04-25 04/16/2018 BRANDIE Beckman [id number] Primary [address]ANDIE [address] Insurance:HUMANA MOOREDOB: [address] MEDICARE [facility] [id number] Hospital [address]Jpm: [phone]) Number: Repository [phone] () [id number] Date:6516-54-46VP [address]46[address]WP: 04/16/2018 Secondary NOT GIVENUNK Sheri Insurance:SELF PAY [facility] Number: Effective Repository Date:2018-04-10 04/16/2018 BRANDIE Beckman [id number] Primary [address] Insurance:HUMANA MOOREDOB: [address] MEDICARE [facility] [id number] Hospital [address]Inc: [phone]) Number: Repository [phone] () [id number] Date:7175-86-89AJ [place] [id number]: 04/16/2018 Secondary NOT GIVENUNK Sheri Insurance:SELF PAY [facility] Number: Effective Repository Date:2018-04-16 04/04/2018 BRANDIE Beckman [id number] Primary [address] Insurance:HUMANA MOOREDOB: [address] MEDICARE [facility] [id number] Hospital [address]Lda: [phone]) Number: Repository [phone] () [id number] Date:3685-43-85TS [address] [place] [address]BA: 04/04/2018 Secondary NOT GIVENUNK Sheri Insurance:SELF PAY [facility] Number: Effective Repository Date:2018-04-04 02/19/2018 BRADNIE [id number] Primary [address]ANDIE [address] Insurance:HUMANA FRONTIERDOB: [place] MEDICARE [facility] [id number] Hospital [address]Zip: [phone]) Number: Repository [phone] () [id number] Date:0699-89-48JS [address] [address]IU: 02/19/2018 Secondary NOT GIVENUNK Sheri Insurance:SELF PAY [facility] Number: Effective Repository Date:2018-02-19 02/01/2018 BRANDIE K [id number] Primary BRANDIE Beckman [place] [address] Insurance:HUMANA MOOREDOB: [place] MEDICARE [facility] [id number] Hospital [address]Hde: [phone]) Number: Repository [phone] () [id number] Date:0310-85-11FB [address] [address]OK: 02/01/2018 Secondary NOT GIVENUNK [place] Insurance:SELF PAY [facility] Number: Effective Repository Date:2018-01-29 01/29/2018 BRANDIE [id number] Primary [address]ANDIE [address] Insurance:HUMANA MOOREDOB: [place] [address] MEDICARE [facility] [id number] Hospital [address]Bqz: (330) Number: Repository [phone] () [id number] Date:0818-10-11RA [address] [address]HK: 01/29/2018 Secondary NOT GIVENUNK Sheri Insurance:SELF PAY [facility] Number: Effective Repository Date:2018-01-29 01/23/2018 BRANDIE K [id number] Primary [address]ANDIE [address] Insurance:HUMANA MOOREDOB: [address] MEDICARE [facility] [id number] Hospital [address]Tkb: [phone]) Number: Repository [phone] (HP) [id number] Date:1756-80-95RP [address] [address]HA: 01/23/2018 Secondary NOT GIVENUNK Sheri Insurance:SELF PAY [facility] Number: Effective Repository Date:2018-01-23 12/25/2017 BRANDIE [id number] Primary BRANDIE Beckman [place] [address] Insurance:HUMANA MOOREDOB: [address] MEDICARE [facility] [id number] [address]Tel: [phone]) Number: Repository [phone] () [id number] Date:6847-56-45BR [address] [address]CY: 12/25/2017 Secondary NOT GIVENUNK [place] Insurance:SELF PAY [facility] Number: Effective Repository Date:2017-12-06 10/15/2017 Octavia Brown [id number] [address]IE [address] Insurance:HUMANA MOOREDOB: [address] MEDICARE [facility] [id number] [id number]: Number: Repository [phone] [id number] (HP) Date:1340-69-81KM [address] [address]PR: 10/15/2017 Secondary NOT GIVENUNK [place] Insurance:SELF PAY [facility] Number: Effective Repository Date:2017-10-15 08/28/2017 Octavia Brown [id number] Primary [address]IE [address] Insurance:HUMANA MOOREDOB: [address] MEDICARE [facility] [id number] [place] [id number]: Number: Repository [phone] [id number] (HP) Date:2176-93-34TH [address] [address]DS: 08/28/2017 Secondary NOT GIVENUNK [place] Insurance:SELF PAY [facility]: Effective Repository Date:2017-08-28
== END ==
PROVIDERS: Family Provider Internal Medicine; PCP Internal Medicine; Referring Provider Internal Medicine Rheumatology; Visit Provider Internal Medicine Rheumatology
DX: M06.4 Inflammatory polyarthropathy (principal); M17.0 Bilateral primary osteoarthritis of knee; M79.7 Fibromyalgia; Z79.899 Other long term (current) drug therapy
CPT/HCPCS: 36415; 80053; 85025

== ENCOUNTER → 2018-10-10 09:03 | Outpatient (CLI) | payer MEDICARE, SELFPAY ==
[2018-10-10 10:14] LABS: Absolute Lymphocyte Count 0.76 X10^3/ul (0.83-4.51); Absolute Neutrophil Count 3.5 X10^3/uL (2.0-7.7); Basophil# 0.01 X10^3/uL; Basophil% 0.2 % (0-1); Eosinophil# 0.01 X10^3/uL; Eosinophils% 0.2 % (0-5); Hematocrit 39.5 % (37-47); Hemoglobin 12.5 g/dl (12.0-15.0); Lymphocyte # 0.76 X10^3/ul (4.0); Lymphocyte % 16.1 % (19-41); Mean Corp Hgb Conc 31.6 g/gl (32-36); Mean Corpuscular Hgb 30.6 pg (27.0-32.0); Mean Corpuscular Volume 96.6 fL (81-99); Mean Platelet Vol. 9.4 fl (6.2-12.0); Monocyte# 0.43 X10^3/uL; Monocyte% 9.1 % (0-10); Neutrophil # 3.49 X10^3/uL (2.7-7.7); Neutrophil % 74.2 % (47-70); Platelet Count 376 K/mm3 (150-450); RBC Distribution Width CV 14.3 % (11.6-14.6); RBC Distribution Width SD 50.1 fl (35.1-43.9); Red Blood Count 4.09 M/mm3 (4.2-5.4); White Blood Count 4.7 K/mm3 (4.4-11.0)
[2018-10-10 10:16] LABS: POSITIVE COUNT NO; POSITIVE DIFFERENTIAL NO; POSITIVE MORPHOLOGY NO
[2018-10-10 10:33] LABS: ALB/GLOB Ratio 1.1 RATIO (0.9-2.4); AST(SGOT) 24 U/L (15-37); Alanine Aminotransfer ALT/SGPT 27 U/L (13-56); Albumin, Serum 3.9 g/dL (3.2-5.0); Alkaline Phosphatase 94 U/L (45-117); Anion Gap 9 (5-15); BUN 10 mg/dL (7-18); BUN/Creat Ratio 9.7 RATIO (10-20); Calcium,Total 9.4 mg/dL (8.5-10.1); Chloride 106 mmol/L (98-107); Creatinine, Serum 1.03 mg/dL (0.55-1.02); EST Glomerular Filtration Rate 56 mL/min (>60); Est Glom Filt Rate - Afr Amer 67 mL/min (>60); Globulin 3.5 g/dL (2.2-4.2); Glucose 98 mg/dL (74-106); Potassium 4.2 mmol/L (3.5-5.1); Protein, Total 7.4 g/dL (6.4-8.2); Sodium Level 140 mmol/L (136-145)
== END ==
PROVIDERS: Family Provider Internal Medicine; PCP Internal Medicine; Referring Provider Internal Medicine Rheumatology; Visit Provider Internal Medicine Rheumatology
DX: M06.4 Inflammatory polyarthropathy (principal); M17.0 Bilateral primary osteoarthritis of knee; M19.071 Primary osteoarthritis, right ankle and foot; K76.0 Fatty (change of) liver, not elsewhere classified; K21.9 Gastro-esophageal reflux disease without esophagitis; M47.896 Other spondylosis, lumbar region; M79.7 Fibromyalgia; H33.001 Unspecified retinal detachment with retinal break, right eye; E78.5 Hyperlipidemia, unspecified; F32.89 Other specified depressive episodes; F41.9 Anxiety disorder, unspecified
CPT/HCPCS: 36415; 80053; 85025

== ENCOUNTER → 2018-11-05 10:34 | Outpatient (CLI) | payer MEDICARE, SELFPAY ==
[2018-06-24 07:51] VITALS: BMI 27.6
--- NOTE | 2018-11-05 10:40 | RAD_ITS ---
STUDY: X-RAY - LEFT TIBIA AND FIBULA REASON FOR EXAM: Female, 73 years old. Pain. TECHNIQUE: 2 view(s) of the tibia and fibula were obtained. COMPARISON: None. FINDINGS: Normal visualized tibia. Normal visualized fibula. There is no acute fracture, dislocation or destructive osseous pathology. The knee and ankle appear intact. The soft tissue structures are unremarkable. RAD/Tibia & Fibula 2 Views IMPRESSION: Normal x-ray examination of the tibia and fibula. Electronically Signed: Js Spencer DO at 23:52 EST Tel [phone], Service support ,
== END ==
PROVIDERS: Family Provider Internal Medicine; PCP Internal Medicine; Referring Provider Internal Medicine; Visit Provider Internal Medicine
DX: M79.605 Pain in left leg (principal)
CPT/HCPCS: 73590

== ENCOUNTER → 2019-01-06 08:10 | Outpatient (CLI) | payer MEDICARE, SELFPAY ==
[2019-01-06 10:32] LABS: Absolute Lymphocyte Count 0.76 X10^3/ul (0.83-4.51); Absolute Neutrophil Count 4.9 X10^3/uL (2.0-7.7); Basophil# 0.01 X10^3/uL; Basophil% 0.2 % (0-1); Eosinophil# 0.02 X10^3/uL; Eosinophils% 0.3 % (0-5); Hematocrit 38.6 % (37-47); Hemoglobin 12.6 g/dl (12.0-15.0); Lymphocyte # 0.76 X10^3/ul (4.0); Lymphocyte % 12.3 % (19-41); Mean Corp Hgb Conc 32.6 g/gl (32-36); Mean Corpuscular Hgb 30.8 pg (27.0-32.0); Mean Corpuscular Volume 94.4 fL (81-99); Mean Platelet Vol. 9.4 fl (6.2-12.0); Monocyte# 0.45 X10^3/uL; Monocyte% 7.3 % (0-10); Neutrophil # 4.92 X10^3/uL (2.7-7.7); Neutrophil % 79.4 % (47-70); Platelet Count 367 K/mm3 (150-450); RBC Distribution Width CV 14.2 % (11.6-14.6); RBC Distribution Width SD 46.4 fl (35.1-43.9); Red Blood Count 4.09 M/mm3 (4.2-5.4); White Blood Count 6.2 K/mm3 (4.4-11.0)
[2019-01-06 10:36] LABS: POSITIVE COUNT NO; POSITIVE DIFFERENTIAL NO; POSITIVE MORPHOLOGY NO
[2019-01-06 11:22] LABS: AST(SGOT) 27 U/L (15-37); Alanine Aminotransfer ALT/SGPT 36 U/L (13-56); Albumin, Serum 3.8 g/dL (3.2-5.0); Alkaline Phosphatase 100 U/L (45-117); Anion Gap 10 (5-15); BUN 12 mg/dL (7-18); BUN/Creat Ratio 12.1 RATIO (10-20); Calcium,Total 9.6 mg/dL (8.5-10.1); Chloride 104 mmol/L (98-107); Creatinine, Serum 0.99 mg/dL (0.55-1.02); EST Glomerular Filtration Rate 58 mL/min (>60); Est Glom Filt Rate - Afr Amer 70 mL/min (>60); Globulin 3.7 g/dL (2.2-4.2); Glucose 97 mg/dL (74-106); Potassium 4.1 mmol/L (3.5-5.1); Protein, Total 7.5 g/dL (6.4-8.2); Sodium Level 141 mmol/L (136-145)
== END ==
PROVIDERS: Family Provider Internal Medicine; PCP Internal Medicine; Referring Provider Internal Medicine Rheumatology; Visit Provider Internal Medicine Rheumatology
DX: M06.4 Inflammatory polyarthropathy (principal); M17.0 Bilateral primary osteoarthritis of knee; M19.071 Primary osteoarthritis, right ankle and foot; M79.7 Fibromyalgia; K76.0 Fatty (change of) liver, not elsewhere classified; M47.896 Other spondylosis, lumbar region; H33.001 Unspecified retinal detachment with retinal break, right eye; E78.5 Hyperlipidemia, unspecified; K21.9 Gastro-esophageal reflux disease without esophagitis; F41.9 Anxiety disorder, unspecified; Z79.899 Other long term (current) drug therapy
CPT/HCPCS: 36415; 80053; 85025

== ENCOUNTER → 2019-03-17 10:37 | Outpatient (CLI) | payer MEDICARE, SELFPAY ==
--- NOTE | 2019-03-17 10:41 | CDU_ITS ---
Reason For Study: bilateral carotid stenosis Rt. Velocities/BP Lt. Velocities/BP Prox CCA 108.9/17.5 cm/sec. Prox CCA 120.5/32.7 cm/sec. Mid CCA 85.8/19.5 cm/sec. Mid CCA 83.4/15.8 cm/sec. Dist CCA 84.6/26.9 cm/sec. Dist CCA 85.8/24.4 cm/sec. Prox ICA 85.7/21.7 cm/sec. Prox ICA 85.8/23.2 cm/sec. Mid ICA 107.6/40.0 cm/sec. Mid ICA 84.6/34.3 cm/sec. Dist ICA 78.5/25.7 cm/sec. Dist ICA 95.3/35.1 cm/sec. Rt. ICA/CCA = 107.6/108.9=1.0. Lt. ICA/CCA = 95.3/120.5=0.8. Prox ECA 100.3/21.7 cm/sec. Prox ECA 129.5/19.9 cm/sec. Rt. Vert. 61.3/15.8 cm/sec. Lt. Vert. 80.5/21.6 cm/sec. Right Extracranial There is homogeneous, smooth atherosclerotic plaque noted in the right common carotid artery. There is intimal thickening but no significant atherosclerotic plaque noted in the right internal carotid artery. There is intimal thickening but no significant atherosclerotic plaque noted in the right external carotid artery. Antegrade flow is noted in the right vertebral artery. Left Extracranial There is homogeneous, smooth atherosclerotic plaque noted in the left common carotid artery. There is intimal thickening but no significant atherosclerotic plaque noted in the left internal carotid artery. There is heterogeneous, irregular atherosclerotic plaque noted in the left external carotid artery. Antegrade flow is noted in the left vertebral artery. Procedure Carotid Duplex [id number]. The exam was diagnostic. Exam performed in department. Interpretation Summary Mild (<50%) stenosis right extracranial internal carotid. Mild (<50%) stenosis left extracranial internal carotid. Flow within the vertebral arteries is antegrade bilaterally. Ordering Physician: Camryn Faith Referring Physician: Camryn Faith Performed By: Danette Rivero, BRANDON, RVT
== END ==
PROVIDERS: Family Provider Internal Medicine; PCP Internal Medicine; Referring Provider Internal Medicine; Visit Provider Internal Medicine
DX: I65.23 Occlusion and stenosis of bilateral carotid arteries (principal)
CPT/HCPCS: 93880

== ENCOUNTER → 2019-04-10 09:25 | Outpatient (CLI) | payer MEDICARE, SELFPAY ==
[2018-06-24 07:51] VITALS: BMI 27.6
[2019-04-10 10:02] LABS: Absolute Lymphocyte Count 0.66 X10^3/uL (0.83-4.51); Absolute Neutrophil Count 4.1 X10^3/uL (2.0-7.7); Basophil# 0.02 X10^3/uL; Basophil% 0.4 % (0-1); Eosinophil# 0.04 X10^3/uL; Eosinophils% 0.8 % (0-5); Hematocrit 38.8 % (37-47); Hemoglobin 12.5 g/dL (12.0-15.0); Lymphocyte # 0.66 X10^3/ul (4.0); Lymphocyte % 12.6 % (19-41); Mean Corp Hgb Conc 32.2 g/dL (32-36); Mean Corpuscular Hgb 31.3 pg (27.0-32.0); Mean Platelet Vol. 9.3 fl (6.2-12.0); Monocyte# 0.36 X10^3/uL; Monocyte% 6.9 % (0-10); NRBC Flagged by Analyzer 0 % (0-5); Neutrophil # 4.13 X10^3/uL (2.7-7.7); Neutrophil % 78.7 % (47-70); POSITIVE MORPHOLOGY YES; Platelet Count 352 K/mm3 (150-450); RBC Distribution Width CV 14.5 % (11.6-14.6); RBC Distribution Width SD 50.9 fl (35.1-43.9); White Blood Count 5.2 K/mm3 (4.4-11.0)
[2019-04-10 10:03] LABS: Differential Indicated SCAN CRITERIA MET
[2019-04-10 10:36] LABS: AST(SGOT) 22 U/L (15-37); Alanine Aminotransfer ALT/SGPT 23 U/L (13-56); Albumin, Serum 3.8 g/dL (3.2-5.0); Alkaline Phosphatase 101 U/L (45-117); Anion Gap 8 (5-15); BUN 11 mg/dL (7-18); BUN/Creat Ratio 10.1 RATIO (10-20); Calcium,Total 9.7 mg/dL (8.5-10.1); Chloride 105 mmol/L (98-107); Creatinine, Serum 1.09 mg/dL (0.55-1.02); EST Glomerular Filtration Rate 52 mL/min (>60); Est Glom Filt Rate - Afr Amer 63 mL/min (>60); Globulin 3.7 g/dL (2.2-4.2); Glucose 123 mg/dL (74-106); Potassium 3.8 mmol/L (3.5-5.1); Protein, Total 7.5 g/dL (6.4-8.2); Sodium Level 141 mmol/L (136-145)
== END ==
PROVIDERS: Family Provider Internal Medicine; PCP Internal Medicine; Referring Provider Internal Medicine Rheumatology; Visit Provider Internal Medicine Rheumatology
DX: M06.4 Inflammatory polyarthropathy (principal); M17.0 Bilateral primary osteoarthritis of knee; M19.071 Primary osteoarthritis, right ankle and foot; M47.896 Other spondylosis, lumbar region; K76.0 Fatty (change of) liver, not elsewhere classified; M79.7 Fibromyalgia; H33.001 Unspecified retinal detachment with retinal break, right eye; E78.5 Hyperlipidemia, unspecified; K21.9 Gastro-esophageal reflux disease without esophagitis; F32.89 Other specified depressive episodes; F41.9 Anxiety disorder, unspecified; Z79.899 Other long term (current) drug therapy
CPT/HCPCS: 36415; 80053; 85025

== ENCOUNTER → 2019-05-01 11:44 | Outpatient (CLI) | payer MEDICARE, SELFPAY ==
--- NOTE | 2019-05-01 11:46 | BI_ITS ---
MAMMOGRAPHY - BILATERAL SCREENING REASON FOR EXAM: Female, 73 years old. Routine annual screening examination. PERTINENT HISTORY: Daughter with breast cancer. Remote left excisional breast biopsies. TECHNIQUE: Digital bilateral breast rosa (3D mammographic acquisition) in the CC and MLO projections. 2-D mediolateral oblique (MLO) and craniocaudad (CC) views of both breasts were obtained. CAD: Full Field Digital Mammography with Computer Added Detection was performed. COMPARISON: Comparison is made with prior examination dated April 16, 2017 and February 02, 2008. FINDINGS: Breast Composition: There are scattered areas of fibroglandular density. There are no dominant masses or suspicious calcifications. There is a stable 4 mm well-defined nodule in the upper slightly lateral portion of the left breast. No other significant abnormalities are identified. There has been no significant change since the prior study. BI/SCREEN MAMM (CAD) W/ROSA BILAT IMPRESSION: Stable bilateral screening mammogram. Yearly follow-up mammogram recommended. (A) ASSESSMENT CATEGORY: BIRADS Category 2: Benign. A letter regarding these results will be sent to the patient by the facility within 30 days. Approximately 10% of breast cancers are not detected by mammography. A normal mammogram should not delay biopsy of a clinically suspicious abnormality. [id number] Electronically Signed: Zbigniew Perez, at 15:06 EDT , Service support ,
== END ==
PROVIDERS: Family Provider Internal Medicine; PCP Internal Medicine; Referring Provider Internal Medicine; Visit Provider Internal Medicine
DX: Z12.31 Encounter for screening mammogram for malignant neoplasm of breast (principal)
CPT/HCPCS: 77063; 77067

== ENCOUNTER → 2019-06-04 09:30 | Outpatient (CLI) | payer MEDICARE, SELFPAY ==
--- NOTE | 2019-06-04 09:38 | RAD_ITS ---
STUDY: X-RAY - CERVICAL SPINE REASON FOR EXAM: Female, 74 years old. Right neck pain TECHNIQUE: 4 view(s) of the cervical spine were obtained. COMPARISON: None FINDINGS: Normal anterior atlantoaxial articulation. Normal odontoid process. Decreased cervical lordosis. No evidence for acute fracture or subluxation.. Narrowed disc space at C4-5 with endplate spurring. Multilevel arthrosis of the zygapophyseal joints The soft tissue structures are unremarkable. RAD/Cerv Spine 2 or 3 Views IMPRESSION: Degenerative changes. No evidence for acute fracture or other significant bony pathology Electronically Signed: Leo Arboleda MD at 19:13 EDT , Service support ,
--- NOTE | 2019-06-04 09:40 | RAD_ITS ---
STUDY: X-RAY - THORACIC SPINE REASON FOR EXAM: Female, 74 years old. Back pain TECHNIQUE: 2 view(s) of the thoracic spine were obtained. COMPARISON: None. FINDINGS: Normal kyphosis of the thoracic spine. There is no substantial scoliosis. No evidence for acute fracture or subluxation. Mild multilevel disc space narrowing and endplate spurring. The soft tissue structures are unremarkable. RAD/Thoracic Spine 2 Views IMPRESSION: Mild degenerative changes. No acute fracture or other significant bony pathology Electronically Signed: Leo Arboleda MD at 19:17 EDT , Service support ,
== END ==
PROVIDERS: Family Provider Internal Medicine; PCP Internal Medicine; Referring Provider Nurse Practitioner; Visit Provider Nurse Practitioner
DX: M89.8X9 Other specified disorders of bone, unspecified site (principal)
CPT/HCPCS: 72040; 72070

== ENCOUNTER → 2019-07-02 09:40 | Outpatient (CLI) | payer MEDICARE, SELFPAY ==
[2019-06-13 12:45] VITALS: BMI 27.6
[2019-07-02 12:27] LABS: Absolute Neutrophil Count 3.3 X10^3/uL (2.0-7.7); Basophil# 0.03 X10^3/uL; Basophil% 0.7 % (0-1); Eosinophil# 0.03 X10^3/uL; Eosinophils% 0.7 % (0-5); Hematocrit 38.9 % (37-47); Hemoglobin 12.2 g/dL (12.0-15.0); Lymphocyte % 13.9 % (19-41); Mean Corp Hgb Conc 31.4 g/dL (32-36); Mean Corpuscular Hgb 30.5 pg (27.0-32.0); Mean Corpuscular Volume 97.3 fL (81-99); Mean Platelet Vol. 9.4 fl (6.2-12.0); Monocyte# 0.37 X10^3/uL; Monocyte% 8.6 % (0-10); NRBC Flagged by Analyzer 0 % (0-5); Neutrophil # 3.28 X10^3/uL (2.7-7.7); Neutrophil % 75.9 % (47-70); POSITIVE DIFFERENTIAL YES; Platelet Count 359 K/mm3 (150-450); RBC Distribution Width CV 14.4 % (11.6-14.6); RBC Distribution Width SD 51.3 fl (35.1-43.9); White Blood Count 4.3 K/mm3 (4.4-11.0)
[2019-07-02 12:31] LABS: Differential Indicated SCAN CRITERIA MET
[2019-07-02 12:46] LABS: ALB/GLOB Ratio 1.1 RATIO (0.9-2.4); AST(SGOT) 22 U/L (15-37); Alanine Aminotransfer ALT/SGPT 24 U/L (13-56); Alkaline Phosphatase 93 U/L (45-117); Anion Gap 4 (5-15); BUN 9 mg/dL (7-18); BUN/Creat Ratio 9.7 RATIO (10-20); Calcium,Total 9.9 mg/dL (8.5-10.1); Chloride 105 mmol/L (98-107); Creatinine, Serum 0.93 mg/dL (0.55-1.02); EST Glomerular Filtration Rate 62 mL/min (>60); Est Glom Filt Rate - Afr Amer 75 mL/min (>60); Globulin 3.5 g/dL (2.2-4.2); Glucose 92 mg/dL (74-106); Potassium 3.9 mmol/L (3.5-5.1); Protein, Total 7.5 g/dL (6.4-8.2); Sodium Level 140 mmol/L (136-145)
[2019-07-03 13:47] LABS: Pathologist Review Reviewed
== END ==
PROVIDERS: Family Provider Internal Medicine; PCP Internal Medicine; Referring Provider Internal Medicine Rheumatology; Visit Provider Internal Medicine Rheumatology
DX: M06.4 Inflammatory polyarthropathy (principal); M79.7 Fibromyalgia; M17.0 Bilateral primary osteoarthritis of knee; M19.071 Primary osteoarthritis, right ankle and foot; K76.0 Fatty (change of) liver, not elsewhere classified; M47.896 Other spondylosis, lumbar region; H33.001 Unspecified retinal detachment with retinal break, right eye; E78.5 Hyperlipidemia, unspecified; K21.9 Gastro-esophageal reflux disease without esophagitis; F32.89 Other specified depressive episodes; Z79.899 Other long term (current) drug therapy
CPT/HCPCS: 36415; 80053; 85025

== ENCOUNTER → 2019-09-23 09:14 | Outpatient (CLI) | payer MEDICARE, SELFPAY ==
[2019-06-13 12:45] VITALS: BMI 27.6
[2019-09-23 09:56] LABS: Absolute Lymphocyte Count 0.82 X10^3/uL (0.83-4.51); Absolute Neutrophil Count 3.4 X10^3/uL (2.0-7.7); Basophil# 0.03 X10^3/uL; Basophil% 0.6 % (0-1); Eosinophil# 0.03 X10^3/uL; Eosinophils% 0.6 % (0-5); Hematocrit 38.3 % (37-47); Hemoglobin 12.4 g/dL (12.0-15.0); Lymphocyte # 0.82 X10^3/ul (4.0); Lymphocyte % 17.3 % (19-41); Mean Corp Hgb Conc 32.4 g/dL (32-36); Mean Corpuscular Volume 95.8 fL (81-99); Mean Platelet Vol. 9.1 fl (6.2-12.0); Monocyte# 0.44 X10^3/uL; Monocyte% 9.3 % (0-10); NRBC Flagged by Analyzer 0 % (0-5); Neutrophil # 3.39 X10^3/uL (2.7-7.7); Neutrophil % 71.6 % (47-70); Platelet Count 354 K/mm3 (150-450); RBC Distribution Width CV 13.9 % (11.6-14.6); RBC Distribution Width SD 48.4 fl (35.1-43.9); White Blood Count 4.7 K/mm3 (4.4-11.0)
[2019-09-23 10:43] LABS: ALB/GLOB Ratio 1.1 RATIO (0.9-2.4); AST(SGOT) 25 U/L (15-37); Alanine Aminotransfer ALT/SGPT 30 U/L (13-56); Albumin, Serum 3.9 g/dL (3.2-5.0); Alkaline Phosphatase 103 U/L (45-117); Anion Gap 4 (5-15); BUN 10 mg/dL (7-18); BUN/Creat Ratio 10.1 RATIO (10-20); Calcium,Total 9.7 mg/dL (8.5-10.1); Chloride 106 mmol/L (98-107); Creatinine, Serum 0.99 mg/dL (0.55-1.02); EST Glomerular Filtration Rate 58 mL/min (>60); Est Glom Filt Rate - Afr Amer 70 mL/min (>60); Globulin 3.6 g/dL (2.2-4.2); Glucose 92 mg/dL (74-106); Potassium 3.9 mmol/L (3.5-5.1); Protein, Total 7.5 g/dL (6.4-8.2); Sodium Level 139 mmol/L (136-145)
== END ==
PROVIDERS: PCP Internal Medicine; Referring Provider Internal Medicine Rheumatology; Visit Provider Internal Medicine Rheumatology
DX: M06.4 Inflammatory polyarthropathy (principal); M79.7 Fibromyalgia; M17.0 Bilateral primary osteoarthritis of knee; M19.071 Primary osteoarthritis, right ankle and foot; K76.0 Fatty (change of) liver, not elsewhere classified; K21.9 Gastro-esophageal reflux disease without esophagitis; Z79.899 Other long term (current) drug therapy
CPT/HCPCS: 36415; 80053; 85025

== ENCOUNTER → 2019-12-22 08:15 | Outpatient (CLI) | payer MEDICARE, SELFPAY ==
[2019-06-13 12:45] VITALS: BMI 27.6
[2019-12-22 09:54] LABS: Absolute Lymphocyte Count 0.95 X10^3/uL (0.83-4.51); Absolute Neutrophil Count 3.6 X10^3/uL (2.0-7.7); Basophil# 0.02 X10^3/uL; Basophil% 0.4 % (0-1); Eosinophil# 0.04 X10^3/uL; Eosinophils% 0.8 % (0-5); Hematocrit 38.2 % (37-47); Hemoglobin 12.1 g/dL (12.0-15.0); Lymphocyte # 0.95 X10^3/ul (4.0); Lymphocyte % 18.5 % (19-41); Mean Corp Hgb Conc 31.7 g/dL (32-36); Mean Corpuscular Hgb 30.5 pg (27.0-32.0); Mean Corpuscular Volume 96.2 fL (81-99); Mean Platelet Vol. 9.3 fl (6.2-12.0); Monocyte% 9.7 % (0-10); NRBC Flagged by Analyzer 0 % (0-5); Neutrophil % 70.2 % (47-70); Platelet Count 346 K/mm3 (150-450); RBC Distribution Width CV 14.6 % (11.6-14.6); RBC Distribution Width SD 51.1 fl (35.1-43.9); Red Blood Count 3.97 M/mm3 (4.2-5.4); White Blood Count 5.1 K/mm3 (4.4-11.0)
[2019-12-22 10:11] LABS: ALB/GLOB Ratio 1.1 RATIO (0.9-2.4); AST(SGOT) 26 U/L (15-37); Alanine Aminotransfer ALT/SGPT 27 U/L (13-56); Albumin, Serum 3.7 g/dL (3.2-5.0); Alkaline Phosphatase 104 U/L (45-117); Anion Gap 7 (5-15); BUN 10 mg/dL (7-18); BUN/Creat Ratio 10.7 RATIO (10-20); Calcium,Total 9.5 mg/dL (8.5-10.1); Chloride 102 mmol/L (98-107); Creatinine, Serum 0.94 mg/dL (0.55-1.02); EST Glomerular Filtration Rate 62 mL/min (>60); Est Glom Filt Rate - Afr Amer 75 mL/min (>60); Globulin 3.5 g/dL (2.2-4.2); Glucose 85 mg/dL (74-106); Potassium 3.7 mmol/L (3.5-5.1); Protein, Total 7.2 g/dL (6.4-8.2); Sodium Level 139 mmol/L (136-145)
== END ==
PROVIDERS: PCP Internal Medicine; Referring Provider Internal Medicine Rheumatology; Visit Provider Internal Medicine Rheumatology
DX: M06.4 Inflammatory polyarthropathy (principal); M79.7 Fibromyalgia; M17.0 Bilateral primary osteoarthritis of knee; M19.071 Primary osteoarthritis, right ankle and foot; K76.0 Fatty (change of) liver, not elsewhere classified; K21.9 Gastro-esophageal reflux disease without esophagitis; Z79.899 Other long term (current) drug therapy
CPT/HCPCS: 36415; 80053; 85025

== ENCOUNTER → 2020-03-16 07:17 | Outpatient (CLI) | payer MEDICARE, SELFPAY ==
[2019-06-13 12:45] VITALS: BMI 27.6
[2020-03-16 09:54] LABS: Absolute Lymphocyte Count 0.78 X10^3/uL (0.83-4.51); Absolute Neutrophil Count 2.5 X10^3/uL (2.0-7.7); Basophil# 0.03 X10^3/uL; Basophil% 0.8 % (0-1); Eosinophil# 0.05 X10^3/uL; Eosinophils% 1.3 % (0-5); Hematocrit 37.6 % (37-47); Hemoglobin 11.7 g/dL (12.0-15.0); Lymphocyte # 0.78 X10^3/ul (4.0); Lymphocyte % 20.5 % (19-41); Mean Corp Hgb Conc 31.1 g/dL (32-36); Mean Corpuscular Hgb 31.2 pg (27.0-32.0); Mean Corpuscular Volume 100.3 fL (81-99); Mean Platelet Vol. 9.3 fl (6.2-12.0); Monocyte# 0.41 X10^3/uL; Monocyte% 10.8 % (0-10); NRBC Flagged by Analyzer 0 % (0-5); Neutrophil # 2.51 X10^3/uL (2.7-7.7); Neutrophil % 66.1 % (47-70); Platelet Count 408 K/mm3 (150-450); RBC Distribution Width CV 14.6 % (11.6-14.6); RBC Distribution Width SD 52.5 fl (35.1-43.9); Red Blood Count 3.75 M/mm3 (4.2-5.4); White Blood Count 3.8 K/mm3 (4.4-11.0)
[2020-03-16 10:18] LABS: ALB/GLOB Ratio 1.1 RATIO (0.9-2.4); AST(SGOT) 26 U/L (15-37); Alanine Aminotransfer ALT/SGPT 31 U/L (13-56); Albumin, Serum 3.8 g/dL (3.2-5.0); Alkaline Phosphatase 87 U/L (45-117); Anion Gap 5 (5-15); BUN 11 mg/dL (7-18); BUN/Creat Ratio 10.6 RATIO (10-20); Calcium,Total 9.3 mg/dL (8.5-10.1); Chloride 106 mmol/L (98-107); Creatinine, Serum 1.04 mg/dL (0.55-1.02); EST Glomerular Filtration Rate 55 mL/min (>60); Est Glom Filt Rate - Afr Amer 66 mL/min (>60); Globulin 3.4 g/dL (2.2-4.2); Glucose 96 mg/dL (74-106); Potassium 3.9 mmol/L (3.5-5.1); Protein, Total 7.2 g/dL (6.4-8.2); Sodium Level 140 mmol/L (136-145)
== END ==
PROVIDERS: PCP Internal Medicine; Referring Provider Internal Medicine Rheumatology; Visit Provider Internal Medicine Rheumatology
DX: M06.4 Inflammatory polyarthropathy (principal); M79.7 Fibromyalgia; M15.9 Polyosteoarthritis, unspecified; K76.0 Fatty (change of) liver, not elsewhere classified; K21.9 Gastro-esophageal reflux disease without esophagitis; M47.896 Other spondylosis, lumbar region; H33.001 Unspecified retinal detachment with retinal break, right eye; E78.5 Hyperlipidemia, unspecified; F32.89 Other specified depressive episodes; F41.9 Anxiety disorder, unspecified; Z79.899 Other long term (current) drug therapy
CPT/HCPCS: 36415; 80053; 85025

== ENCOUNTER → 2020-05-25 07:33 | Outpatient (CLI) | payer MEDICARE, SELFPAY ==
[2019-06-13 12:45] VITALS: BMI 27.6
[2020-05-25 07:42] LABS: Mucous, Urine 0 SEEN /hpf (<or=2+)
[2020-05-25 09:52] LABS: Absolute Lymphocyte Count 0.93 X10^3/uL (0.83-4.51); Absolute Neutrophil Count 3.5 X10^3/uL (2.0-7.7); Basophil# 0.02 X10^3/uL; Basophil% 0.4 % (0-1); Eosinophil# 0.03 X10^3/uL; Eosinophils% 0.6 % (0-5); Hematocrit 38.7 % (37-47); Hemoglobin 12.1 g/dL (12.0-15.0); Lymphocyte # 0.93 X10^3/ul (4.0); Lymphocyte % 18.7 % (19-41); Mean Corp Hgb Conc 31.3 g/dL (32-36); Mean Corpuscular Hgb 30.8 pg (27.0-32.0); Mean Corpuscular Volume 98.5 fL (81-99); Mean Platelet Vol. 9.6 fl (6.2-12.0); Monocyte# 0.43 X10^3/uL; Monocyte% 8.6 % (0-10); NRBC Flagged by Analyzer 0 % (0-5); Neutrophil # 3.54 X10^3/uL (2.7-7.7); Neutrophil % 71.1 % (47-70); Platelet Count 467 K/mm3 (150-450); RBC Distribution Width CV 14.3 % (11.6-14.6); RBC Distribution Width SD 51.2 fl (35.1-43.9); Red Blood Count 3.93 M/mm3 (4.2-5.4)
[2020-05-25 09:56] LABS: Color, Urine Yellow (Yellow); Glucose, Dipstick Normal (Normal); Ketone-Dipstick Negative (Negative); Leukocyte Esterase-Dipstick 25 /ul (Negative); Nitrite-Dipstick Negative (Negative); Occult Blood-Urine 25 /ul (Negative); Protein-Dipstick 15 mg/dl (Negative); Urine Bilirubin Dipstick Negative (Negative); Urine Clarity Sl. Cloudy (Clear); Urine Urobilinogen Normal (Normal)
[2020-05-25 10:08] LABS: Bacteria 3+ /hpf (None Seen); Hyaline Cast 0-5 SEEN /lpf (0-5); Red Blood Cells-Urine 5-10 SEEN /hpf (0-5); Renal Epithelial Cells 0-5 SEEN /hpf (0-5); Squamous Epithelial Cells - UA 0-5 SEEN /hpf (5-10); White Blood Cells 0-5 SEEN /hpf (0-5)
[2020-05-25 10:09] LABS: Amorphous Sediment 1+
[2020-05-25 10:16] LABS: Microalbumin,Random Urine 45.4 mg/L (NO RANGE EST.); Microalbumin:Creatinine Ratio 46.4 mg/g CRE (<30 mg/g CRE)
[2020-05-25 10:17] LABS: ALB/GLOB Ratio 1.2 RATIO (0.9-2.4); AST(SGOT) 31 U/L (15-37); Alanine Aminotransfer ALT/SGPT 45 U/L (13-56); Albumin, Serum 4.1 g/dL (3.2-5.0); Alkaline Phosphatase 91 U/L (45-117); Anion Gap 5 (5-15); BUN 12 mg/dL (7-18); BUN/Creat Ratio 11.2 RATIO (10-20); Calcium,Total 9.7 mg/dL (8.5-10.1); Chloride 104 mmol/L (98-107); Cholesterol 253 mg/dL (200); Creatinine, Serum 1.07 mg/dL (0.55-1.02); EST Glomerular Filtration Rate 53 mL/min (>60); Est Glom Filt Rate - Afr Amer 64 mL/min (>60); Globulin 3.5 g/dL (2.2-4.2); Glucose 86 mg/dL (74-106); High Density Lipoprotein 44 mg/dL; Protein, Total 7.6 g/dL (6.4-8.2); Sodium Level 140 mmol/L (136-145); Thyroid Stim Hormone (TSH) 3.11 uIU/mL (0.358-3.74); Triglycerides 268 mg/dL; Very Low Density Lipoprotein 54 mg/dL (5-40)
[2020-05-25 11:04] LABS: Vitamin B12 386 pg/mL (211-911); Vitamin D,25 Hydroxy 84.6 ng/mL
== END ==
PROVIDERS: PCP Internal Medicine; Referring Provider Internal Medicine Rheumatology; Visit Provider Internal Medicine Rheumatology
DX: E55.9 Vitamin D deficiency, unspecified (principal); D51.3 Other dietary vitamin B12 deficiency anemia; R73.09 Other abnormal glucose; M06.4 Inflammatory polyarthropathy; Z79.899 Other long term (current) drug therapy; M79.7 Fibromyalgia; M15.9 Polyosteoarthritis, unspecified; M17.0 Bilateral primary osteoarthritis of knee; M19.071 Primary osteoarthritis, right ankle and foot; K76.0 Fatty (change of) liver, not elsewhere classified; K21.9 Gastro-esophageal reflux disease without esophagitis; M47.896 Other spondylosis, lumbar region
CPT/HCPCS: 36415; 80053; 80061; 81001; 82043; 82306; 82570; 82607; 84443; 85025

== ENCOUNTER → 2020-05-26 08:16 | Outpatient (CLI) | payer MEDICARE, SELFPAY ==
[2019-06-13 12:45] VITALS: BMI 27.6
--- NOTE | 2020-05-26 08:22 | BD_ITS ---
STUDY: DUAL ENERGY X-RAY ABSORPTIOMETRY / DXA REASON FOR EXAM: Female, 75 years old. 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 COMPARISON: Comparison is made with prior study dated 05/23/2018. FINDINGS: Lumbar Spine (L1-L4): g/cm2 (1.034) / T-score (-1.2) / Z-score (0.6) Findings are suggestive of osteopenia with a low fracture risk. Left Femur Total: g/cm2 (0.999) / T-score (-0.1) / Z-score (1.8) Left Femoral Neck: g/cm2 (0.875) / T-score (-1.2) / Z-score (0.8) Right Femur Total: g/cm2 (0.914) / T-score (-0.7) / Z-score (1.1) Right Femoral Neck: g/cm2 (0.818) / T-score (-1.6) / Z-score (0.4) The T-Scores on the most recent prior examination were: Lumbar Spine (L1-L4): There has been improvement of bone density since the previous examination. Left Femur Total: which represents an improvement of 0.2%. Right Femur Total: which represents a worsening of 0.3%. BD/Dexa Bone Density Study IMPRESSION: The patient is considered osteopenic as outlined below according to World Matt Organization (WHO) criteria with a moderate fracture risk. There has been improvement of bone density since the previous examination. Reference Information: The T-score is the number of standard deviations above or below the standard which is normal for young adults at their peak bone mineral density. The World Health Organization (WHO) interprets the T-scores as follows: Above -1 Normal bone density Between -1 and -2.5 Osteopenia Equal to / or below -2.5 Osteoporosis As a practical clinical guideline, osteopenia may be graded as follows: Mild -1 through -1.5 Moderate -1.6 through -2.0 Severe -2.1 through -2.4 The Z-score is the number of standard deviations above or below age-matched controls. A Z-score of less than -1.5 would be considered abnormal. References: 1. NIH Osteoporosis and Related Bone Diseases http://www.osteo.org 2. International Society for Clinical Densitometry http://www.iscd.org 3. National Osteoporosis Foundation http://www.nof.org Electronically Signed: Zbigniew Perez, at 14:45 EDT , Service support ,
== END ==
PROVIDERS: PCP Internal Medicine; Referring Provider Internal Medicine; Visit Provider Internal Medicine
DX: Z78.0 Asymptomatic menopausal state (principal)
CPT/HCPCS: 77080

== ENCOUNTER → 2020-05-28 07:02 | Outpatient (CLI) | payer MEDICARE, SELFPAY ==
[2019-06-13 12:45] VITALS: BMI 27.6
--- NOTE | 2020-05-28 07:04 | BI_ITS ---
MAMMOGRAPHY - BILATERAL SCREENING REASON FOR EXAM: Female, 75 years old. Routine annual screening examination. PERTINENT HISTORY: Daughter with breast cancer. Remote left excisional breast biopsy. TECHNIQUE: Digital bilateral breast rosa (3D mammographic acquisition) in the CC and MLO projections. 2-D mediolateral oblique (MLO) and craniocaudad (CC) views of both breasts were obtained. CAD: Full Field Digital Mammography with Computer Added Detection was performed. COMPARISON: Comparison is made with prior study dated 05/01/2019 and 02/02/2008. FINDINGS: Breast Composition: There are scattered areas of fibroglandular density. There are no dominant masses or suspicious calcifications. Stable 4 mm well-defined nodule in the deep slightly upper lateral aspect of the left breast. This most likely represents a small intramammary lymph node. No other significant abnormalities are identified. There has been no significant change since the prior study. BI/SCREEN MAMM (CAD) W/ROSA BILAT IMPRESSION: Stable bilateral screening mammogram. Yearly follow-up mammogram recommended. (A) ASSESSMENT CATEGORY: BIRADS Category 2: Benign. A letter regarding these results will be sent to the patient by the facility within 30 days. Approximately 10% of breast cancers are not detected by mammography. A normal mammogram should not delay biopsy of a clinically suspicious abnormality. [id number] Electronically Signed: Zbigniew Perez, at 13:03 EDT , Service support ,
== END ==
PROVIDERS: PCP Internal Medicine; Referring Provider Internal Medicine; Visit Provider Internal Medicine
DX: Z12.31 Encounter for screening mammogram for malignant neoplasm of breast (principal); Z80.3 Family history of malignant neoplasm of breast
CPT/HCPCS: 77063; 77067

== ENCOUNTER → 2020-08-10 08:37 | Outpatient (CLI) | payer MEDICARE, SELFPAY ==
[2020-08-10 09:43] LABS: Absolute Lymphocyte Count 0.34 X10^3/uL (0.83-4.51); Absolute Neutrophil Count 2.2 X10^3/uL (2.0-7.7); Basophil# 0.01 X10^3/uL; Basophil% 0.4 % (0-1); Hematocrit 35.3 % (37-47); Lymphocyte # 0.34 X10^3/ul (4.0); Lymphocyte % 12.4 % (19-41); Mean Corp Hgb Conc 31.2 g/dL (32-36); Mean Corpuscular Hgb 29.5 pg (27.0-32.0); Mean Corpuscular Volume 94.6 fL (81-99); Mean Platelet Vol. 9.3 fl (6.2-12.0); Monocyte# 0.16 X10^3/uL; Monocyte% 5.8 % (0-10); NRBC Flagged by Analyzer 0 % (0-5); Neutrophil # 2.21 X10^3/uL (2.7-7.7); Neutrophil % 80.3 % (47-70); POSITIVE DIFFERENTIAL YES; POSITIVE MORPHOLOGY YES; Platelet Count 273 K/mm3 (150-450); RBC Distribution Width CV 14.2 % (11.6-14.6); RBC Distribution Width SD 48.8 fl (35.1-43.9); Red Blood Count 3.73 M/mm3 (4.2-5.4); White Blood Count 2.8 K/mm3 (4.4-11.0)
[2020-08-10 09:47] LABS: Differential Indicated SCAN CRITERIA MET
[2020-08-10 10:26] LABS: AST(SGOT) 52 U/L (15-37); Alanine Aminotransfer ALT/SGPT 58 U/L (13-56); Albumin, Serum 3.7 g/dL (3.2-5.0); Alkaline Phosphatase 125 U/L (45-117); Anion Gap 8 (5-15); BUN 8 mg/dL (7-18); Calcium,Total 9.1 mg/dL (8.5-10.1); Chloride 106 mmol/L (98-107); EST Glomerular Filtration Rate 57 mL/min (>60); Est Glom Filt Rate - Afr Amer 69 mL/min (>60); Globulin 3.6 g/dL (2.2-4.2); Glucose 91 mg/dL (74-106); Potassium 3.8 mmol/L (3.5-5.1); Protein, Total 7.3 g/dL (6.4-8.2); Sodium Level 140 mmol/L (136-145)
[2020-08-11 13:31] LABS: Pathologist Review Reviewed
== END ==
PROVIDERS: PCP Internal Medicine; Referring Provider Internal Medicine Rheumatology; Visit Provider Internal Medicine Rheumatology
DX: M06.4 Inflammatory polyarthropathy (principal); M79.7 Fibromyalgia; M15.9 Polyosteoarthritis, unspecified; K76.0 Fatty (change of) liver, not elsewhere classified; K21.9 Gastro-esophageal reflux disease without esophagitis; M47.896 Other spondylosis, lumbar region; H33.001 Unspecified retinal detachment with retinal break, right eye; E78.5 Hyperlipidemia, unspecified; F32.89 Other specified depressive episodes; F41.9 Anxiety disorder, unspecified; Z79.899 Other long term (current) drug therapy
CPT/HCPCS: 36415; 80053; 85025

== ENCOUNTER → 2020-08-12 10:08 | Outpatient (CLI) | payer MEDICARE, SELFPAY ==
[2020-08-12 12:17] LABS: Erythrocyte Sedimentation Rate 26 mm/hr (0-30)
[2020-08-12 12:19] LABS: Absolute Lymphocyte Count 1.36 X10^3/uL (0.83-4.51); Absolute Neutrophil Count 4.1 X10^3/uL (2.0-7.7); Basophil# 0.03 X10^3/uL; Basophil% 0.5 % (0-1); Hematocrit 34.7 % (37-47); Hemoglobin 11.4 g/dL (12.0-15.0); Lymphocyte # 1.36 X10^3/ul (4.0); Lymphocyte % 23.2 % (19-41); Mean Corp Hgb Conc 32.9 g/dL (32-36); Mean Corpuscular Hgb 30.5 pg (27.0-32.0); Mean Corpuscular Volume 92.8 fL (81-99); Mean Platelet Vol. 9.7 fl (6.2-12.0); Monocyte# 0.25 X10^3/uL; Monocyte% 4.3 % (0-10); NRBC Flagged by Analyzer 0 % (0-5); Neutrophil # 4.14 X10^3/uL (2.7-7.7); Neutrophil % 70.5 % (47-70); POSITIVE MORPHOLOGY YES; Platelet Count 329 K/mm3 (150-450); RBC Distribution Width CV 14.3 % (11.6-14.6); Red Blood Count 3.74 M/mm3 (4.2-5.4); White Blood Count 5.9 K/mm3 (4.4-11.0)
[2020-08-12 12:22] LABS: Differential Indicated SCAN CRITERIA MET
[2020-08-12 12:31] LABS: AST(SGOT) 68 U/L (15-37); Alanine Aminotransfer ALT/SGPT 62 U/L (13-56); Albumin, Serum 3.6 g/dL (3.2-5.0); Alkaline Phosphatase 147 U/L (45-117); Anion Gap 8 (5-15); BUN 11 mg/dL (7-18); BUN/Creat Ratio 10.4 RATIO (10-20); Calcium,Total 9.6 mg/dL (8.5-10.1); Chloride 99 mmol/L (98-107); Creatinine, Serum 1.06 mg/dL (0.55-1.02); EST Glomerular Filtration Rate 53 mL/min (>60); Est Glom Filt Rate - Afr Amer 65 mL/min (>60); Globulin 3.7 g/dL (2.2-4.2); Glucose 95 mg/dL (74-106); Potassium 3.9 mmol/L (3.5-5.1); Protein, Total 7.3 g/dL (6.4-8.2); Sodium Level 132 mmol/L (136-145); Thyroid Stim Hormone (TSH) 1.33 uIU/mL (0.358-3.74); Vitamin B12 551 pg/mL (211-911)
[2020-08-12 12:50] LABS: Reactive Lymphocyte RARE
[2020-08-14 11:29] LABS: EBV Acute VCA IgM < 36.0 U/mL (0.0-35.9); EBV Nuclear Antigen IgG < 18.0 U/mL (0.0-17.9); EBV-VCA IgG < 18.0 U/mL (0.0-17.9)
== END ==
PROVIDERS: PCP Internal Medicine; Referring Provider Internal Medicine; Visit Provider Internal Medicine
DX: R53.83 Other fatigue (principal); R68.83 Chills (without fever); D72.819 Decreased white blood cell count, unspecified
CPT/HCPCS: 36415; 80053; 82607; 84443; 85025; 85652; 86140; 86645; 86664; 86665

== ENCOUNTER → 2020-08-17 17:03 | Outpatient (CLI) | payer MEDICARE, SELFPAY ==
--- NOTE | 2020-08-17 17:05 | RAD_ITS ---
STUDY: X-RAY CHEST REASON FOR EXAM: Female, 75 years old. Patient complains of cough, weakness, not feeling good for 4 weeks TECHNIQUE: Single frontal view of the chest. COMPARISON: None. FINDINGS: Cardiac silhouette unremarkable. Pulmonary vascularity unremarkable. Aorta unremarkable. No focal airspace opacities. No pleural effusions. Linear density at the left base likely represents scarring or atelectasis. Upper abdomen unremarkable. Osseous structures intact. No pneumothorax. RAD/Chest PA and Lateral IMPRESSION: No acute cardiopulmonary process identified. Electronically Signed: Anson Rocha, at 18:14 EST Tel , Service support ,
== END ==
PROVIDERS: PCP Internal Medicine; Referring Provider Physician Assistant Surgical; Visit Provider Physician Assistant Surgical
DX: R05 Cough (principal)
CPT/HCPCS: 71046

== ENCOUNTER → 2020-09-23 11:49 | Outpatient (CLI) | payer MEDICARE, SELFPAY ==
--- NOTE | 2020-09-23 11:51 | CT_ITS ---
STUDY: CT ABDOMEN AND PELVIS WITHOUT CONTRAST REASON FOR EXAM: Female, 75 years old. FLANK PAIN RADIATION DOSAGE (If Supplied By Facility): CTDIvol = ( 7.86 ) mGy, DLP = ( 365.12 ) mGycm TECHNIQUE: Transaxial images were obtained from the dome of the diaphragm to the symphysis pubis without oral contrast, and without intravenous contrast. Sagittal and coronal images were reconstructed. Individualized dose optimization techniques were used for this CT. COMPARISON: Comparison is made with prior examination dated 05/08/2018. FINDINGS: Stable minimal increased linear markings at the lung bases suggestive of scarring. The visualized portions of the heart are within normal limits. Normal liver. Normal gallbladder and extrahepatic biliary system. There are multiple benign calcified granulomata of the spleen. Normal pancreas. Normal bilateral adrenal glands. Mild degree of right hydronephrosis due to a 1 cm calculus at the right ureteral pelvic junction. Normal left kidney. There is a small hiatal hernia. Normal small intestine. Surgical anastomosis is seen at the colorectal junction. There are surgical clips in the region of the appendix consistent with a prior appendectomy. There is diffuse atherosclerotic calcification of the abdominal aorta, without a demonstrated aneurysm. Normal inferior vena cava. Normal retroperitoneum. Normal urinary bladder. There is absence of the uterus consistent with a prior hysterectomy. Normal abdominal wall. There are degenerative changes of the visualized lumbar spine. CT/Abdomen/Pelvis without Cont IMPRESSION: 1 cm calculus at the right ureteral pelvic junction causing a mild degree of right hydronephrosis. Electronically Signed: Zbigniew Perez MD at 12:32 EST , Service support ,
== END ==
PROVIDERS: PCP Internal Medicine; Visit Provider Internal Medicine
DX: N13.2 Hydronephrosis with renal and ureteral calculous obstruction (principal)
CPT/HCPCS: 74176

== ENCOUNTER 2020-10-26 07:43 | Day surgery (SDC) | payer MEDICARE, SELFPAY ==
[2020-10-25 09:41] LABS: Hematocrit 37.1 % (37-47); Hemoglobin 11.7 g/dL (12.0-15.0); Mean Corp Hgb Conc 31.5 g/dL (32-36); Mean Corpuscular Hgb 29.5 pg (27.0-32.0); Mean Corpuscular Volume 93.5 fL (81-99); Mean Platelet Vol. 9.3 fl (6.2-12.0); Platelet Count 412 K/mm3 (150-450); RBC Distribution Width CV 14.6 % (11.6-14.6); RBC Distribution Width SD 50.1 fl (35.1-43.9); Red Blood Count 3.97 M/mm3 (4.2-5.4)
[2020-10-25 10:45] LABS: ALB/GLOB Ratio 1.1 RATIO (0.9-2.4); AST(SGOT) 32 U/L (15-37); Alanine Aminotransfer ALT/SGPT 27 U/L (13-56); Albumin, Serum 3.8 g/dL (3.2-5.0); Alkaline Phosphatase 54 U/L (45-117); Anion Gap 6 (5-15); BUN 11 mg/dL (7-18); BUN/Creat Ratio 12.2 RATIO (10-20); Calcium,Total 9.4 mg/dL (8.5-10.1); Chloride 108 mmol/L (98-107); EST Glomerular Filtration Rate 64 mL/min (>60); Est Glom Filt Rate - Afr Amer 78 mL/min (>60); Globulin 3.4 g/dL (2.2-4.2); Glucose 99 mg/dL (74-106); Potassium 3.9 mmol/L (3.5-5.1); Protein, Total 7.2 g/dL (6.4-8.2); Sodium Level 140 mmol/L (136-145)
[2020-10-26 08:17] VITALS: BP 121/90; PULSE 92; RESP 16; TEMP 36.7; O2SAT 96; BMI 26.2
--- NOTE | 2020-10-26 08:18 | PCM.OPRPT ---
Problem List (1) Renal calculus, right Status: Acute (2) Hydronephrosis Status: Acute (3) Mixed incontinence Status: Acute Report of Operation Date of Procedure: 10/26/20 Pre-Operative Diagnosis: right renal calculus with hydronephrosis, mixed incontinence Post-Operative Diagnosis: Same Surgery/Procedure Performed:: Cystoscopy, right ureteral stent insertion, right renal extracorporal shockwave lithotripsy, pelvic exam under anesthesia Type of Anesthesia:: General Description of Procedure: The patient is a 75-year-old female identified as having a right renal calculus approximately 1 cm in size with mild hydronephrosis. After discussing the risk, benefits, and alternatives, informed consent was obtained for surgical intervention with extracorporal shockwave lithotripsy and stent placement. A discussion of COVID-19 was part of the informed consent process. Patient was taken to the operating room and placed on the operating room table. Anesthesia monitored the head, neck, airway, IV access and vital signs throughout the case. Once anesthesia was appropriate ministered the patient was placed into dorsal lithotomy position was prepped and draped in usual sterile fashion. A pelvic examination revealed vaginal atrophy, no pelvic organ prolapse, no pelvic mass and no palpable stool in the rectal vault. Using a 21 Indonesian cystoscope with a 30 degree lens. A cystoscopy was performed through the urethra under direct visualization. The bladder mucosa was visualized in its entirety. There were no masses, lesions, areas of erythema or foreign body identified. There is no significant trabeculation. The ureteral orifices were located in the correct anatomic position along the area of the trigone. The patient's right ureteral orifice was intubated with a 0.035 Glidewire which was visualized in the renal pelvis under fluoroscopy. A 22 Indonesian ureteral stent was then placed over the guidewire with positioning in the renal pelvis as well as the urinary bladder. The patient's bladder was then emptied and the lithotripsy was performed. 3000 shocks were applied to the stone which appeared to be well fragmented at the conclusion of the case. The patient was then awakened and taken to the recovery room in good condition. There were no complications during the procedure. Grafts/Implants Used: 6 x 22 JJ stent - Complications None - Admit VTE Documentation VTE Present on Admission: Yes VTE Mechan Device Prophylaxis: SCD's VTE Pharm Prophylaxis ordered?: No Reason prophylaxis not ordered:: Treatment Not Indicated
--- NOTE | 2020-10-26 08:23 | DCINST_ITS ---
Discharge Diet: No Restrictions Discharge Activity: May not drive while taking narcotic pain medications. May resume sexual activity in: No Restrictions Call your doctor if you observe: Fever of 101 or Higher, Inability to urinate, Inability to have a bowel movement, Calf discomfort, Uncontrolled pain Allergies/Adverse Reactions: Allergies erythromycin base Allergy (Verified 10/19/20 13:13) Rash ibuprofen [From Motrin] Allergy (Verified 10/19/20 13:13) Rash dicyclomine HCl [From Bentyl] Adverse Reaction (Verified 10/19/20 13:13) Nausea nitrofurantoin Adverse Reaction (Verified 10/19/20 13:13) Nausea Sulfa (Sulfonamide Antibiotics) Adverse Reaction (Verified 10/19/20 13:13) Nausea Medications to take at Discharge Cyanocobalamin (Vitamin B-12) [B-12] 2,000 mcg PO DAILY 02/12/17 Duloxetine HCl 60 mg PO DAILY 02/12/17 aspirin 81 mg chewable tablet 81 mg PO QDAY 01/29/18 cholecalciferol (vit D3) 1,000 unit-vitamin K2 (MK4) 100 mcg tablet 1 tab PO QDAY 01/29/18 gabapentin 600 mg tablet 600 mg PO QHS 04/25/18 vitamin K2 40 mcg tablet 40 mcg PO DAILY 04/25/18 Fenofibrate 160 mg PO DAILY 10/19/20 Ibandronate Sodium [Boniva] 150 mg PO QMONTH 10/19/20 Vit C/E/Zn/Coppr/Lutein/Zeaxan [Preservision Areds 2 Softgel] 2 ea PO DAILY 10/19/20 Cephalexin [Keflex] 500 mg PO Q12 3 Days #6 cap 10/26/20 Oxycodone HCl/Acetaminophen [Percocet 5/325] 2 tablet PO Q8H PRN PRN 7 Days #20 tablet 10/26/20 Phenazopyridine [Pyridium] 100 mg PO TID PRN #30 tab 10/26/20 The following prescriptions were given: Cephalexin [Keflex] 500 mg PO Q12 3 Days #6 cap Transmission Status: Pending to [facility] [address] Oxycodone HCl/Acetaminophen [Percocet 5/325] 2 tablet PO Q8H PRN PRN 7 Days #20 tablet PRN Reason: Pain Transmission Status: Sent to [facility] [facility] Phenazopyridine [Pyridium] 100 mg PO TID PRN #30 tab PRN Reason: Bladder Spasms Transmission Status: Pending to [facility] Primary Care Physician: aCmryn Faith DO [Primary Care Provider] - Test Results: Test results from this visit will be discussed in further detail at your follow- up appointment, if applicable. Please Follow Up With: Maria Luisa Blackwood MD When: call for appt to be seen in 2-3 weeks with LARRY Proposed Discharge Date: 10/26/20
[2020-10-26] MEDS: Lactated Ringers 1,000 ML 100 ML IV (08:26)
[2020-10-26] MEDS: Cefazolin 2 GM in 0.9% Normal Saline 100 ML IV (09:28)
[2020-10-26] MEDS: Lubricating Jelly 60 GM Tube 30 GM TOPICAL (09:40)
[2020-10-26 10:41] VITALS: BP 121/90; BP 141/62; PULSE 73; RESP 16; TEMP 36.1; O2SAT 94
[2020-10-26 10:45] VITALS: BP 121/90; BP 132/65; PULSE 80; RESP 16; O2SAT 94
[2020-10-26 11:04] VITALS: BP 121/90; BP 143/67; PULSE 74; RESP 16; O2SAT 96
[2020-10-26 11:10] VITALS: BP 121/90; BP 142/67; PULSE 71; RESP 16; TEMP 36.3; O2SAT 95
[2020-10-26] MEDS: oxyCODONE 5 MG Tablet PO (11:43)
[2020-10-26] MEDS: Acetaminophen 325 MG Tablet PO (11:43)
[2020-10-26 12:05] VITALS: BP 121/90; BP 140/69; PULSE 90; RESP 18; TEMP 36.4; O2SAT 99
== END 2020-10-26 12:19 | disposition home or self-care (01) ==
LOC: SDC 07:44 → AC 07:44
PROVIDERS: PCP Internal Medicine; Referring Provider Urology; Visit Provider Urology
PROC: (CPT 50590; principal; 2020-10-26 09:35)
DX: N13.2 Hydronephrosis with renal and ureteral calculous obstruction (principal); N39.46 Mixed incontinence; N95.2 Postmenopausal atrophic vaginitis; K57.32 Diverticulitis of large intestine without perforation or abscess without bleeding; E78.00 Pure hypercholesterolemia, unspecified; M06.9 Rheumatoid arthritis, unspecified; F32.9 Major depressive disorder, single episode, unspecified; F41.9 Anxiety disorder, unspecified; Z87.442 Personal history of urinary calculi; Z79.82 Long term (current) use of aspirin; Z79.899 Other long term (current) drug therapy; Z20.822 Contact with and (suspected) exposure to COVID-19
CPT/HCPCS: 52356; 36415; 80053; 85027; 87426; C9803; J7120; C2625; J2405

== ENCOUNTER → 2020-11-10 11:08 | Outpatient (CLI) | payer MEDICARE, SELFPAY ==
[2020-10-26 08:17] VITALS: BMI 26.2
--- NOTE | 2020-11-10 11:11 | RAD_ITS ---
STUDY: X-RAY - ABDOMEN/PELVIS REASON FOR EXAM: Female, 75 years old. KUB- KIDNEY STONE TECHNIQUE: Single AP view of the abdomen / pelvis. COMPARISON: None. FINDINGS: Satisfactory appearance of a right JJ stent. There is an unremarkable bowel gas pattern. There is no demonstrated free abdominal air. The visualized liver, spleen and kidneys are grossly normal in size and morphology. No calcifications overlying the right renal shadow or along the right JJ stent. Normal soft tissue structures. There are diffuse degenerative changes of the visualized lumbar spine. RAD/Abdomen Single View IMPRESSION: No acute findings Electronically Signed: Terry Fernandez MD at 12:05 EST , Service support ,
== END ==
PROVIDERS: PCP Internal Medicine; Referring Provider Urology; Visit Provider Urology
DX: N20.0 Calculus of kidney (principal)
CPT/HCPCS: 74018

== ENCOUNTER → 2020-11-15 10:47 | Outpatient (CLI) | payer MEDICARE, SELFPAY ==
[2020-10-26 08:17] VITALS: BMI 26.2
--- NOTE | 2020-11-15 10:49 | RAD_ITS ---
STUDY: X-RAY - ABDOMEN/PELVIS REASON FOR EXAM: Female, 75 years old. History of stone. Ureteral catheter. TECHNIQUE: Single AP view of the abdomen / pelvis. COMPARISON: 11/10/2020 FINDINGS: Lung bases not visualized. There is an unremarkable bowel gas pattern. Moderate amount of feces in colon. There is no demonstrated free abdominal air. Stable ureteral catheter on the right. The visualized liver, spleen and kidneys are grossly normal in size and morphology. Stable postsurgical changes in the pelvis. Mild lumbosacral spondylosis unchanged. RAD/Abdomen Single View IMPRESSION: Stable abdomen with no complicating features. Electronically Signed: Garrett Velasquez MD at 11:27 EDT , Service support ,
== END ==
PROVIDERS: PCP Internal Medicine; Referring Provider Urology; Visit Provider Urology
DX: N20.0 Calculus of kidney (principal)
CPT/HCPCS: 74018

== ENCOUNTER → 2020-12-27 07:56 | Outpatient (CLI) | payer MEDICARE, SELFPAY ==
[2020-12-27 10:00] LABS: Absolute Lymphocyte Count 1.94 X10^3/uL (0.83-4.51); Absolute Neutrophil Count 2.7 X10^3/uL (2.0-7.7); Basophil# 0.03 X10^3/uL; Basophil% 0.6 % (0-1); Eosinophil# 0.02 X10^3/uL; Eosinophils% 0.4 % (0-5); Hematocrit 36.4 % (37-47); Hemoglobin 11.4 g/dL (12.0-15.0); Lymphocyte # 1.94 X10^3/ul (0.83-4.51); Lymphocyte % 37.1 % (19-41); Mean Corp Hgb Conc 31.3 g/dL (32-36); Mean Corpuscular Hgb 28.9 pg (27.0-32.0); Mean Corpuscular Volume 92.4 fL (81-99); Mean Platelet Vol. 9.2 fl (6.2-12.0); Monocyte# 0.48 X10^3/uL; Monocyte% 9.2 % (0-10); NRBC Flagged by Analyzer 0 % (0-5); Neutrophil # 2.73 X10^3/uL (2.7-7.7); Neutrophil % 52.1 % (47-70); Platelet Count 465 K/mm3 (150-450); RBC Distribution Width CV 13.8 % (11.6-14.6); RBC Distribution Width SD 46.9 fl (35.1-43.9); Red Blood Count 3.94 M/mm3 (4.2-5.4); White Blood Count 5.2 K/mm3 (4.4-11.0)
[2020-12-27 10:23] LABS: ALB/GLOB Ratio 1.1 RATIO (0.9-2.4); AST(SGOT) 28 U/L (15-37); Alanine Aminotransfer ALT/SGPT 26 U/L (13-56); Albumin, Serum 3.9 g/dL (3.2-5.0); Alkaline Phosphatase 51 U/L (45-117); Anion Gap 7 (5-15); BUN 17 mg/dL (7-18); BUN/Creat Ratio 15.5 RATIO (10-20); Calcium,Total 9.6 mg/dL (8.5-10.1); Chloride 106 mmol/L (98-107); EST Glomerular Filtration Rate 51 mL/min (>60); Est Glom Filt Rate - Afr Amer 62 mL/min (>60); Globulin 3.7 g/dL (2.2-4.2); Glucose 97 mg/dL (74-106); Protein, Total 7.6 g/dL (6.4-8.2); Sodium Level 139 mmol/L (136-145)
== END ==
PROVIDERS: PCP Internal Medicine; Referring Provider Internal Medicine Rheumatology; Visit Provider Internal Medicine Rheumatology
DX: M06.4 Inflammatory polyarthropathy (principal); M79.7 Fibromyalgia; M17.0 Bilateral primary osteoarthritis of knee; M19.071 Primary osteoarthritis, right ankle and foot; K76.0 Fatty (change of) liver, not elsewhere classified; K21.9 Gastro-esophageal reflux disease without esophagitis; M47.896 Other spondylosis, lumbar region; H33.001 Unspecified retinal detachment with retinal break, right eye; E78.5 Hyperlipidemia, unspecified; F32.89 Other specified depressive episodes; F41.9 Anxiety disorder, unspecified; Z79.899 Other long term (current) drug therapy
CPT/HCPCS: 36415; 80053; 85025

== ENCOUNTER → 2021-01-19 08:33 | Outpatient (CLI) | payer MEDICARE, SELFPAY ==
[2021-01-19 11:07] LABS: ALB/GLOB Ratio 1.1 RATIO (0.9-2.4); AST(SGOT) 29 U/L (15-37); Alanine Aminotransfer ALT/SGPT 26 U/L (13-56); Albumin, Serum 3.9 g/dL (3.2-5.0); Alkaline Phosphatase 43 U/L (45-117); Anion Gap 5 (5-15); BUN 14 mg/dL (7-18); BUN/Creat Ratio 13.3 RATIO (10-20); Calcium,Total 9.3 mg/dL (8.5-10.1); Chloride 108 mmol/L (98-107); Creatinine, Serum 1.05 mg/dL (0.55-1.02); EST Glomerular Filtration Rate 54 mL/min (>60); Est Glom Filt Rate - Afr Amer 65 mL/min (>60); Globulin 3.5 g/dL (2.2-4.2); Glucose 96 mg/dL (74-106); Potassium 3.9 mmol/L (3.5-5.1); Protein, Total 7.4 g/dL (6.4-8.2); Sodium Level 141 mmol/L (136-145)
== END ==
PROVIDERS: PCP Internal Medicine; Referring Provider Internal Medicine Rheumatology; Visit Provider Internal Medicine Rheumatology
DX: M06.4 Inflammatory polyarthropathy (principal); M79.7 Fibromyalgia; M17.0 Bilateral primary osteoarthritis of knee; M19.071 Primary osteoarthritis, right ankle and foot; K76.0 Fatty (change of) liver, not elsewhere classified; K21.9 Gastro-esophageal reflux disease without esophagitis; M47.896 Other spondylosis, lumbar region; H33.001 Unspecified retinal detachment with retinal break, right eye; E78.5 Hyperlipidemia, unspecified; F32.89 Other specified depressive episodes; F41.9 Anxiety disorder, unspecified; N20.0 Calculus of kidney; Z79.899 Other long term (current) drug therapy
CPT/HCPCS: 36415; 80053

== ENCOUNTER → 2021-04-05 10:50 | Outpatient (CLI) | payer MEDICARE, SELFPAY ==
[2021-04-05 10:07] VITALS: BMI 27.1
[2021-04-05 12:03] LABS: Absolute Lymphocyte Count 1.47 X10^3/uL (0.83-4.51); Absolute Neutrophil Count 2.4 X10^3/uL (2.0-7.7); Basophil# 0.03 X10^3/uL; Basophil% 0.7 % (0-1); Hematocrit 36.2 % (37-47); Hemoglobin 11.7 g/dL (12.0-15.0); Lymphocyte # 1.47 X10^3/ul (0.83-4.51); Lymphocyte % 34.3 % (19-41); Mean Corp Hgb Conc 32.3 g/dL (32-36); Mean Corpuscular Hgb 30.1 pg (27.0-32.0); Mean Corpuscular Volume 93.1 fL (81-99); Mean Platelet Vol. 9.5 fl (6.2-12.0); Monocyte# 0.41 X10^3/uL; Monocyte% 9.6 % (0-10); NRBC Flagged by Analyzer 0 % (0-5); Neutrophil # 2.37 X10^3/uL (2.7-7.7); Neutrophil % 55.2 % (47-70); Platelet Count 409 K/mm3 (150-450); RBC Distribution Width CV 13.2 % (11.6-14.6); RBC Distribution Width SD 45.2 fl (35.1-43.9); Red Blood Count 3.89 M/mm3 (4.2-5.4); White Blood Count 4.3 K/mm3 (4.4-11.0)
[2021-04-05 12:48] LABS: ALB/GLOB Ratio 1.2 RATIO (0.9-2.4); AST(SGOT) 28 U/L (15-37); Alanine Aminotransfer ALT/SGPT 26 U/L (13-56); Albumin, Serum 4.1 g/dL (3.2-5.0); Alkaline Phosphatase 43 U/L (45-117); Anion Gap 7 (5-15); BUN 15 mg/dL (7-18); BUN/Creat Ratio 13.5 RATIO (10-20); Calcium,Total 10.9 mg/dL (8.5-10.1); Chloride 107 mmol/L (98-107); Creatinine, Serum 1.11 mg/dL (0.55-1.02); EST Glomerular Filtration Rate 51 mL/min (>60); Est Glom Filt Rate - Afr Amer 61 mL/min (>60); Globulin 3.5 g/dL (2.2-4.2); Glucose 93 mg/dL (74-106); Potassium 3.9 mmol/L (3.5-5.1); Protein, Total 7.6 g/dL (6.4-8.2); Sodium Level 140 mmol/L (136-145)
== END ==
PROVIDERS: PCP Internal Medicine; Referring Provider Internal Medicine Rheumatology; Visit Provider Internal Medicine Rheumatology
DX: M06.4 Inflammatory polyarthropathy (principal); M79.7 Fibromyalgia; M17.0 Bilateral primary osteoarthritis of knee; M19.071 Primary osteoarthritis, right ankle and foot; K76.0 Fatty (change of) liver, not elsewhere classified; Z79.899 Other long term (current) drug therapy
CPT/HCPCS: 36415; 80053; 85025

== ENCOUNTER → 2021-05-04 14:57 | Outpatient (CLI) | payer MEDICARE, SELFPAY ==
--- NOTE | 2021-05-04 15:00 | RAD_ITS ---
STUDY: X-RAY - LEFT KNEE REASON FOR EXAM: Left knee pain with progressive worsening. TECHNIQUE: 4 view(s) of the knee. COMPARISON: Radiographs of the left tibia and fibula 11/05/2018. FINDINGS: Normal visualized distal femur. Normal visualized proximal tibia and fibula. Normal proximal tibiofibular articulation. There is mild joint space narrowing of the medial femorotibial compartment. Normal lateral femorotibial compartment. Normal patellofemoral articulation. The soft tissue structures are unremarkable. RAD/Knee 4 or More Views IMPRESSION: Mild arthrosis of the medial femorotibial compartment. Electronically Signed: Axel Razo MD at 9:32 EDT Tel , Service support ,
--- NOTE | 2021-05-04 15:00 | RAD_ITS ---
INDICATION: PAIN EXAMINATION/TECHNIQUE: X-RAY - XR Spine Lumbar Min 4 Views COMPARISON: 09/23/2020. FINDINGS: Straightening of the alignment of the columns of the lumbar spine is visualized. No evidence of spondylolisthesis is seen. Multilevel degenerative endplate changes with anterior osteophyte formation, no evidence of compression deformity of the lumbar vertebral bodies. Decreased intervertebral disc height visualized at multiple levels most prominent at L5-S1. Oblique images demonstrate no evidence of pars interarticularis fracture. Hypertrophic changes in the posterior column. Nonobstructive bowel gas pattern seen. Surgical clips visualized in the pelvis. RAD/L/S Spine Min 4 Views IMPRESSION: Degenerative changes of the lumbar spine, no acute osseous abnormality is seen. Electronically Signed: Des Pradhan MD at 8:01 EDT Tel , Service support ,
[2021-05-05 09:26] LABS: PTHIN 21.7 pg/mL (18.4-80.1)
== END ==
PROVIDERS: PCP Internal Medicine; Referring Provider Internal Medicine Rheumatology; Visit Provider Internal Medicine Rheumatology
DX: M06.4 Inflammatory polyarthropathy (principal); Z79.899 Other long term (current) drug therapy; M79.7 Fibromyalgia; M15.9 Polyosteoarthritis, unspecified; M17.0 Bilateral primary osteoarthritis of knee; M19.071 Primary osteoarthritis, right ankle and foot; K76.0 Fatty (change of) liver, not elsewhere classified; K21.9 Gastro-esophageal reflux disease without esophagitis; M47.896 Other spondylosis, lumbar region; H33.001 Unspecified retinal detachment with retinal break, right eye; E78.5 Hyperlipidemia, unspecified; F32.89 Other specified depressive episodes; F41.9 Anxiety disorder, unspecified; N20.0 Calculus of kidney; N13.30 Unspecified hydronephrosis
CPT/HCPCS: 36415; 72110; 73564; 83970

== ENCOUNTER → 2021-05-30 08:30 | Outpatient (CLI) | payer MEDICARE, SELFPAY ==
[2021-04-05 10:07] VITALS: BMI 27.1
--- NOTE | 2021-05-30 08:32 | BI_ITS ---
MAMMOGRAPHY - BILATERAL SCREENING REASON FOR EXAM: Female, 76 years old. Routine annual screening examination. PERTINENT HISTORY: Daughter with breast cancer. Remote left excisional breast biopsy. TECHNIQUE: Digital bilateral breast rosa (3D mammographic acquisition) in the CC and MLO projections. 2-D mediolateral oblique (MLO) and craniocaudad (CC) views of both breasts were obtained. CAD: Full Field Digital Mammography with Computer Added Detection was performed. COMPARISON: Comparison is made with prior study dated 05/28/2020 and 05/01/2019. FINDINGS: Breast Composition: There are scattered areas of fibroglandular density. There are no dominant masses or suspicious calcifications. There is a stable 4 mm well-defined nodule in the deep slightly upper lateral aspect of the left breast. This most likely represents a small intramammary lymph node. No other significant abnormalities are identified. There has been no significant change since the prior study. BI/SCRN MAMM (CAD)W/ROSA BILAT IMPRESSION: Stable bilateral screening mammogram. Yearly follow-up mammogram recommended. (A) ASSESSMENT CATEGORY: BIRADS Category 2: Benign. A letter regarding these results will be sent to the patient by the facility within 30 days. Approximately 10% of breast cancers are not detected by mammography. A normal mammogram should not delay biopsy of a clinically suspicious abnormality. [id number] Electronically Signed: Zbigniew Perez MD at 9:46 EDT , Service support ,
== END ==
PROVIDERS: PCP Internal Medicine; Referring Provider Nurse Practitioner Women's Health; Visit Provider Nurse Practitioner Women's Health
DX: Z12.31 Encounter for screening mammogram for malignant neoplasm of breast (principal); Z80.3 Family history of malignant neoplasm of breast
CPT/HCPCS: 77063; 77067

== ENCOUNTER → 2021-07-02 09:17 | Outpatient (CLI) | payer MEDICARE, SELFPAY ==
--- NOTE | 2021-07-02 09:24 | US_ITS ---
rScriptor Unformatted Report Format: Options: n 2f 2i act cap dr pimentel wm wcta sl lj Gender: Female Age: 76 years Exam: US Abdomen Limited (quadrant) Comparison: CT 09/23/2020 History: EPIGASTIC PAIN Contrast: Cholecystectomy. 1.2 cm hyperechoic lesion of the pancreatic body without demonstrated DOPPLER flow. Impression. Pancreatic protocol CT or MRI recommended. 1.3 cm right renal cyst with well-defined margins, and no septations, no mural nodularity. No required imaging follow-up needed given high likelihood of benign nature. Electronically Signed: Emre Brice MD ([place]) at 18:14 EDT , Service support , US/Abdomen Limited
== END ==
PROVIDERS: PCP Internal Medicine; Visit Provider Internal Medicine
DX: R10.13 Epigastric pain (principal)
CPT/HCPCS: 76705

== ENCOUNTER → 2021-07-21 06:29 | Outpatient (CLI) | payer MEDICARE, SELFPAY ==
--- NOTE | 2021-07-21 06:44 | MRI_ITS ---
EXAM: MR ABDOMEN WITHOUT AND WITH INTRAVENOUS CONTRAST : 1945 CLINICAL INDICATION: PANCREATIC LESION, FOLLOW UP TO U/S TECHNIQUE: Multiplanar and multisequence MR images of the abdomen without and with intravenous contrast. This report was created using SyMynd report InRiver technology. CONTRAST: 14MLIV DOTAREM COMPARISON: None. FINDINGS: LOWER THORAX: Unremarkable. No pleural effusion. LIVER: Signal dropout within the liver on the out of phase image consistent with steatosis. GALLBLADDER AND BILE DUCTS: Gallbladder is absent. No intra- or extrahepatic biliary ductal dilation. PANCREAS: No discrete evidence of pancreatic mass. 5 mm nonenhancing cystic lesion noted within the neck of the pancreas. Pancreatic duct is normaL SPLEEN: Unremarkable. Normal size without focal cystic or solid mass. ADRENALS: Unremarkable. No nodules. KIDNEYS AND URETERS: 12 mm left renal cyst which necessitated this no follow-up. Normal renal size and position. No hydronephrosis. INTRAPERITONEAL SPACE: Unremarkable. No ascites or other fluid collection. No free air. VASCULATURE: Unremarkable. Abdominal aorta is non-dilated. LYMPH NODES: No enlarged lymph nodes. MRI/MRI Abd WITH and W/O Contrast IMPRESSION: 1. No evidence of solid pancreatic mass. 5 mm cystic lesion within the neck of the pancreas of doubtful significance. 2. Mild hepatic steatosis. at 1108 Reported and signed by: Stanton Malhotra MD Electronically Signed: Stanton Malhotra MD at 11:07 EST Tel , Service support ,
[2021-07-21 06:56] LABS: CREATININE FINGERSTICK 0.9 mg/dL (0.55-1.02); EGFR FINGERSTICK > 60.0000 mL/min (>60)
[2021-07-21 12:28] LABS: Absolute Lymphocyte Count 2.53 X10^3/uL (0.83-4.51); Absolute Neutrophil Count 3.1 X10^3/uL (2.0-7.7); Basophil# 0.03 X10^3/uL; Basophil% 0.5 % (0-1); Eosinophils% 1.6 % (0-5); Hematocrit 36.5 % (37-47); Hemoglobin 11.8 g/dL (12.0-15.0); Lymphocyte # 2.53 X10^3/ul (0.83-4.51); Lymphocyte % 39.5 % (19-41); Mean Corp Hgb Conc 32.3 g/dL (32-36); Mean Corpuscular Hgb 29.9 pg (27.0-32.0); Mean Corpuscular Volume 92.6 fL (81-99); Mean Platelet Vol. 9.6 fl (6.2-12.0); Monocyte# 0.59 X10^3/uL; Monocyte% 9.2 % (0-10); NRBC Flagged by Analyzer 0 % (0-5); Neutrophil # 3.13 X10^3/uL (2.7-7.7); Neutrophil % 48.7 % (47-70); Platelet Count 465 K/mm3 (150-450); RBC Distribution Width CV 13.3 % (11.6-14.6); RBC Distribution Width SD 45.3 fl (35.1-43.9); Red Blood Count 3.94 M/mm3 (4.2-5.4); White Blood Count 6.4 K/mm3 (4.4-11.0)
[2021-07-21 12:42] LABS: ALB/GLOB Ratio 0.9 RATIO (0.9-2.4); AST(SGOT) 29 U/L (15-37); Alanine Aminotransfer ALT/SGPT 26 U/L (13-56); Albumin, Serum 3.7 g/dL (3.2-5.0); Alkaline Phosphatase 41 U/L (45-117); Anion Gap 8 (5-15); BUN 17 mg/dL (7-18); Calcium,Total 9.8 mg/dL (8.5-10.1); Chloride 104 mmol/L (98-107); Creatinine, Serum 1.06 mg/dL (0.55-1.02); EST Glomerular Filtration Rate 53 mL/min (>60); Est Glom Filt Rate - Afr Amer 64 mL/min (>60); Globulin 3.9 g/dL (2.2-4.2); Glucose 103 mg/dL (74-106); Potassium 3.8 mmol/L (3.5-5.1); Protein, Total 7.6 g/dL (6.4-8.2); Sodium Level 138 mmol/L (136-145)
== END ==
PROVIDERS: Internal Medicine Rheumatology; PCP Internal Medicine; Referring Provider Internal Medicine; Visit Provider Internal Medicine
DX: K86.9 Disease of pancreas, unspecified (principal); M06.4 Inflammatory polyarthropathy; M79.7 Fibromyalgia; M17.0 Bilateral primary osteoarthritis of knee; M19.071 Primary osteoarthritis, right ankle and foot; K76.0 Fatty (change of) liver, not elsewhere classified; K21.9 Gastro-esophageal reflux disease without esophagitis; M47.896 Other spondylosis, lumbar region; H33.001 Unspecified retinal detachment with retinal break, right eye; E78.5 Hyperlipidemia, unspecified; F32.89 Other specified depressive episodes; F41.9 Anxiety disorder, unspecified; N13.2 Hydronephrosis with renal and ureteral calculous obstruction; Z79.899 Other long term (current) drug therapy
CPT/HCPCS: 36415; 74183; 80053; 85025; A9575

== ENCOUNTER 2021-10-18 08:11 | Outpatient (CLI) | payer MEDICARE, SELFPAY ==
[2021-10-18 10:47] LABS: Absolute Lymphocyte Count 2.35 X10^3/uL (0.83-4.51); Absolute Neutrophil Count 2.6 X10^3/uL (2.0-7.7); Basophil# 0.03 X10^3/uL; Basophil% 0.5 % (0-1); Eosinophil# 0.11 X10^3/uL; Hemoglobin 12.3 g/dL (12.0-15.0); Lymphocyte # 2.35 X10^3/ul (0.83-4.51); Lymphocyte % 42.7 % (19-41); Mean Corp Hgb Conc 32.4 g/dL (32-36); Mean Corpuscular Hgb 29.8 pg (27.0-32.0); Mean Platelet Vol. 9.7 fl (6.2-12.0); Monocyte# 0.44 X10^3/uL; NRBC Flagged by Analyzer 0 % (0-5); Neutrophil # 2.55 X10^3/uL (2.7-7.7); Neutrophil % 46.4 % (47-70); Platelet Count 420 K/mm3 (150-450); RBC Distribution Width CV 13.5 % (11.6-14.6); RBC Distribution Width SD 45.4 fl (35.1-43.9); Red Blood Count 4.13 M/mm3 (4.2-5.4); White Blood Count 5.5 K/mm3 (4.4-11.0)
[2021-10-18 11:11] LABS: AST(SGOT) 27 U/L (15-37); Alanine Aminotransfer ALT/SGPT 27 U/L (13-56); Albumin, Serum 3.9 g/dL (3.2-5.0); Alkaline Phosphatase 46 U/L (45-117); Anion Gap 7 (5-15); BUN 15 mg/dL (7-18); Calcium,Total 9.3 mg/dL (8.5-10.1); Chloride 107 mmol/L (98-107); Creatinine, Serum 1.07 mg/dL (0.55-1.02); EST Glomerular Filtration Rate 53 mL/min (>60); Est Glom Filt Rate - Afr Amer 64 mL/min (>60); Globulin 3.8 g/dL (2.2-4.2); Glucose 94 mg/dL (74-106); Potassium 3.9 mmol/L (3.5-5.1); Protein, Total 7.7 g/dL (6.4-8.2); Sodium Level 140 mmol/L (136-145)
== END 2021-10-18 23:59 | disposition home or self-care (01) ==
LOC: MTLAB 08:13
PROVIDERS: PCP Internal Medicine; Referring Provider Internal Medicine Rheumatology; Visit Provider Internal Medicine Rheumatology
DX: M06.4 Inflammatory polyarthropathy (principal); M79.7 Fibromyalgia; M17.0 Bilateral primary osteoarthritis of knee; M19.071 Primary osteoarthritis, right ankle and foot; K76.0 Fatty (change of) liver, not elsewhere classified; K21.9 Gastro-esophageal reflux disease without esophagitis; M47.896 Other spondylosis, lumbar region; H33.001 Unspecified retinal detachment with retinal break, right eye; E78.5 Hyperlipidemia, unspecified; F32.89 Other specified depressive episodes; F41.9 Anxiety disorder, unspecified; N20.0 Calculus of kidney; N13.30 Unspecified hydronephrosis; Z79.899 Other long term (current) drug therapy
CPT/HCPCS: 36415; 80053; 85025

== ENCOUNTER 2021-12-21 09:05 | Outpatient (CLI) | payer MEDICARE, SELFPAY ==
--- NOTE | 2021-12-21 09:07 | RAD_ITS ---
STUDY: X-RAY - ABDOMEN/PELVIS REASON FOR EXAM: Female, 76 years old. Kidney stones. TECHNIQUE: Single AP view of the abdomen / pelvis. COMPARISON: Abdominal study report dated 11/10/2020. Images were not provided. FINDINGS: Normal visualized lung bases. There is an unremarkable bowel gas pattern. Moderate amount of feces and gas obscure the renal outlines. There is no demonstrated free abdominal air. The visualized liver, spleen and kidneys are grossly normal in size and morphology. Postsurgical changes in the lower pelvis. Normal visualized osseous structures. RAD/Abdomen Single View IMPRESSION: Renal outlines obscured by feces and gas. No renal calculi identified. Electronically Signed: Garrett Velasquez MD at 11:28 EDT ,
== END 2021-12-21 23:59 | disposition home or self-care (01) ==
LOC: MTRAD 09:06
PROVIDERS: PCP Internal Medicine; Referring Provider Urology; Visit Provider Urology
DX: N20.0 Calculus of kidney (principal)
CPT/HCPCS: 74018

== ENCOUNTER 2022-01-23 10:50 | Day surgery (SDC) | payer MEDICARE, SELFPAY ==
[2022-01-23] VITALS (7 sets, daily range): BP systolic 128–147; BP diastolic 52–78; PULSE 78–96; RESP 16; TEMP 36.2–36.4; O2SAT 88–98; BMI 27.1
[2022-01-23] MEDS: Lactated Ringers 1,000 ML 15 ML IV (11:26)
--- NOTE | 2022-01-23 15:23 | PCM.HP.STD ---
HPI - General HPI Narrative JENS KUO, is a 76 F who presents for surgical intervention with a mid urethral sling for her stress urinary incontinence. Informed consent was obtained with daughter and in the office. [facility] Medical History (Updated 01/23/22 @ 15:[address] Maria Luisa Blackwood MD) Anemia Anxiety Arthritis Back pain Bladder disease Constipation Diverticula of colon Dysphagia GERD (gastroesophageal reflux disease) High cholesterol History of diverticulitis History of echocardiogram History of stress test Non-smoker Restless legs Rheumatoid arthritis Screening for intestinal cancer Shortness of breath Stress incontinence Home Medications cyanocobalamin (vitamin B-12) 2,000 mcg PO DAILY 02/12/17 [History Last Taken 10/25/20] duloxetine 60 mg PO DAILY 02/12/17 [History Last Taken 10/25/20] aspirin 81 mg chewable tablet 81 mg PO QDAY 01/29/18 [History Last Taken 01/17/22] cholecalciferol (vit D3) 1,000 unit-vitamin K2 (MK4) 100 mcg tablet 1 tab PO QDAY 01/29/18 [History Last Taken 10/25/20] gabapentin 600 mg tablet 600 mg PO QHS 04/25/18 [History Last Taken 10/25/20] vitamin K2 40 mcg tablet 40 mcg PO DAILY 04/25/18 [History Last Taken 10/25/20] fenofibrate 160 mg PO DAILY 10/19/20 [History Last Taken 10/25/20] ibandronate 150 mg PO QMONTH 10/19/20 [History Last Taken 10/25/20] mometasone 0.1 % topical ointment 1 applic TOPICAL .COMPLEX #15 g 04/05/21 [Rx Last Taken Unknown] vitamins A,C,M-dvtc-gvhbcd 14,320 unit-226 mg-200 unit capsule 1 cap PO BID 04/05/21 [History Last Taken Unknown] estradiol 0.1 g VAGINAL MOWEFR 01/18/22 [History Last Taken Unknown] Allergy/AdvReac Type Severity Reaction Status Date / Time erythromycin base Allergy Rash Verified 01/23/22 11:18 ibuprofen [From Motrin] Allergy Rash Verified 01/23/22 11:18 dicyclomine HCl [From Bentyl] AdvReac Nausea Verified 01/23/22 11:18 nitrofurantoin AdvReac Nausea Verified 01/23/22 11:18 Sulfa (Sulfonamide AdvReac Nausea Verified 01/23/22 11:18 Antibiotics) Family History Mother CVA (cerebral vascular accident) Sister Diabetes Heart disease Brother Heart disease Daughter Breast cancer Surgical History History of appendectomy History of colectomy (~03/2017) History of colonoscopy (~03/2017) History of esophagogastroduodenoscopy (EGD) (~2014) History of hysterectomy History of laparoscopic cholecystectomy History of lithotripsy Social History Smoking Status: Never smoker alcohol intake: never substance use type: does not use caffeine: Yes what type of physical activity do you participate in: none seatbelt use: always do you feel safe at home: Yes additional social history: [place]- Both are retired ROS Constitutional Constitutional: Denies anorexia, body ache(s), chills, fatigue or fever(s) Eyes Eyes: Denies change in vision ENT HEENT: Reports systems reviewed and no addt'l complaints, except as documented Cardiovascular Cardiovascular: Denies abdominal pain, chest pain, dyspnea, irregular heart rhythm, nausea, racing heartbeat or vomiting Respiratory/Chest Respiratory/Chest: Denies cough, shortness of breath at rest or tachypnea Gastrointestinal Gastrointestinal: Denies abdominal pain, anorexia, dysphagia, nausea, taste impaired or vomiting Genitourinary Genitourinary: Reports urinary incontinence Musculoskeletal Musculoskeletal: Reports systems reviewed and no addt'l complaints, except as documented Integumentary Integumentary: Reports systems reviewed and no addt'l complaints, except as documented Neurologic Neurologic: Reports systems reviewed and no addt'l complaints, except as documented Psychiatric Psychiatric: Reports systems reviewed and no addt'l complaints, except as documented Endocrine Endocrinology: Reports systems reviewed and no addt'l complaints, except as documented Hematologic/Lymphatic Hematologic/Lymphatic: Reports systems reviewed and no addt'l complaints, except as documented Vital Signs Vital Signs Vital Signs: 01/23/22 11:20 Temperature 97.2 F L Temperature Source Temporal Pulse Rate 92 Respiratory Rate 16 Respiratory Pattern Normal Blood Pressure 147/63 H Blood Pressure Mean 91 Blood Pressure Source Monitor Blood Pressure Position Semi-Fowlers Blood Pressure Location Left Arm Pulse Ox 98 Oxygen Delivery Method Room Air Weight Weight: 65 kg Body Mass Index (BMI) 27.1 Physical Exam Const alert, oriented x3 and no apparent distress HEENT normocephalic, head/scalp atraumatic, hearing grossly normal bilaterally and external nose normal Eyes conjunctivae normal and no scleral icterus General Eye: normal appearance of both eyes Neck supple General: trachea midline Lymph Lymphatic: no lymphedema noted Chest Chest: symmetrical chest wall rise Resp normal respiratory effort, normal air movement and no retractions Cardio regular rate and regular rhythm GI soft to palpation, non-tender and non-distended no CVA tenderness, external exam normal and appearance of the vagina normal Back/Spine no CVA tenderness Extremity normal to inspection Skin no rashes or lesions noted, no wounds, skin turgor normal, no jaundice, no petechiae and no mottling Neuro oriented x3, CN's II-XII intact bilaterally and moves all extremities Psych mental status grossly normal, thought process normal and cooperative Assessment & Plan Assessment/Plan (1) Stress incontinence: PLAN: midurethral sling, cystoscopy Procedure Criteria Type of Procedure Procedure Type: Elective Elective Risks - COVID COVID Risk Discussion: The surgeon/proceduralist and patient have discussed in detail the risk of exposure to and/or potential harm posed by the COVID-19 virus with having a surgery/procedure at this time versus the risk of delaying the surgery/procedure. It is not possible to know either the risk of delaying the surgery or procedure or chance of getting an infection with perfect accuracy, but a joint decision was made between the patient and the surgeon/proceduralist to proceed at this time with the scheduled surgery/procedure as indicated on the consent form.
--- NOTE | 2022-01-23 15:27 | PCM.DC ---
Discharge Instructions Diet Discharge Diet: No restrictions Activity Discharge Activity: May Shower Lifting Restrictions: 5 pounds Additional Activity Instructions:: No exercise, no heavy lifting, no swimming, no hot tubs, no tub bathing Dressing / Incision Call your doctor if your incision/area has: Continuous Slow Oozing, Sudden Increased Bleeding, Increased Pain/ Swelling, Increased Redness, Foul Smelling Discharge and Swelling at the incision site Call your doctor if you observe: Fever of 101 or Higher, Inability to urinate and Inability to have a bowel movement Follow Up Care Please Follow Up With: Maria Luisa Blackwood MD When: call office for appt Test Results: Test results from this visit will be discussed in further detail at your follow-up appointment, if applicable. Discharge Plan Admission Attending Provider: Maria Luisa Blackwood Primary Care Provider: Camryn Faith Discharge Orders/Prescriptions Prescriptions: New oxycodone-acetaminophen [Percocet] 5-325 mg tablet 1 tab PO Q8H PRN (Reason: pain) 3 Days Qty: 10 RF: 0 cephalexin [cephalexin] 500 MG capsule 500 mg PO Q12 3 Days Qty: 6 RF: 0 Continued vitamin D3-vitamin K2 (MK4) 1,000-100 unit-mcg tablet 1 tab PO QDAY RF: 0 aspirin 81 mg tablet,chewable 81 mg PO QDAY RF: 0 vitamin K2 40 mcg tablet 40 mcg PO DAILY RF: 0 gabapentin 600 mg tablet 600 mg PO QHS RF: 0 PreserVision AREDS 14,320-226-200 ybbl-if-kemo capsule 1 cap PO BID RF: 0 mometasone 0.1 % ointment 1 applic topical .COMPLEX Qty: 15 RF: 2 cyanocobalamin (vitamin B-12) 1,000 MCG tablet 2,000 mcg PO DAILY RF: 0 duloxetine 60 MG capsule,delayed release(DR/EC) 60 mg PO DAILY RF: 0 ibandronate 150 MG tablet 150 mg PO QMONTH RF: 0 fenofibrate 160 MG tablet 160 mg PO DAILY RF: 0 estradiol 0.01 % (0.1 mg/gram) cream 0.1 g vaginal MOWEFR RF: 0 Referrals / Follow Up: Camryn Faith DO [Primary Care Provider] - Disposition Disposition (needs filled in before D/C Order can be placed): Home, Self Care
--- NOTE | 2022-01-23 15:30 | OP.PCM_ITS ---
Problems Associated Problem List Diagnoses (1) Stress incontinence: Report of Operation Date of Procedure: 01/23/22 Pre-Operative Diagnosis: Stress urinary incontinence Post-Operative Diagnosis: Same Surgery/Procedure Performed:: Mid urethral sling insertion, cystoscopy Surgeon: Maria Luisa Blackwood Type of Anesthesia: General Description of Procedure: The patient is a 76-year-old female with stress urinary incontinence who presents for definitive surgical intervention with placement of a mid urethral sling. Informed consent was obtained. The patient was taken to the operating room and placed on the operating room table. Anesthesia monitored the head, neck, airway, IV access and vital signs throughout the case. Once anesthesia was appropriate ministered the patient was placed into dorsal lithotomy position and was prepped and draped in usual sterile fashion. She was then placed into Trendelenburg position and a Gruber catheter was inserted to straight drain and the bladder was emptied. The mid urethra was identified and injected submucosally with 1% lidocaine with epinephrine for hydrostatic dissection and hemostatic control. A vertical midline 2 cm incision was then made over the mid urethra. Sharp and blunt dissection was performed on either side of the urethra with care being taken to avoid entrance into the urethra. Using the given trochars, the sling was placed into the transobturator complexes bilaterally and was positioned using the tensioning suture. The sling lay flat against the urethra with good posi tioning. The positioning suture was then cut. The incision was closed using running interlocking 2-0 Vicryl. At this time the Gruber catheter was removed and the cystoscope was inserted through the urethra under direct visualization into the urinary bladder. There is no evidence of injury identified at this time. The bladder mucosa was visualized in its entirety as well as the urethral mucosa. Patient's bladder was emptied and the cystoscope was removed. The patient was awakened and taken to the recovery room in good condition. There were no complications during this procedure. Grafts/Implants Used: Altis mid urethral sling Complications None Admit VTE Documentation VTE Present on Admission: Yes VTE Mechan Device Prophylaxis: SCD's VTE Pharm Prophylaxis ordered?: No Reason prophylaxis not ordered:: Treatment Not Indicated
[2022-01-23] MEDS: Cefazolin 2 GM in 0.9% Normal Saline 100 ML IV (15:33)
[2022-01-23] MEDS: Lidocaine 1% /Epi 1:100 (50ml) 50 ML VIAL (15:52)
--- NOTE | 2022-01-23 17:19 | SUR.PHASEII ---
PT VOIDED 150 ML, PT THEN BLADDER SCANNED FOR [address] SILVA AWARE PT CAN BE D/C
== END 2022-01-23 17:48 | disposition home or self-care (01) ==
LOC: SDC 10:51 → AC 10:53
PROVIDERS: PCP Internal Medicine; Visit Provider Urology
PROC: 0TJB8ZZ Inspection of Bladder, Via Natural or Artificial Opening Endoscopic (ICD-10-PCS; CPT 57288; principal; 2022-01-23 12:50)
DX: N39.3 Stress incontinence (female) (male) (principal); M06.9 Rheumatoid arthritis, unspecified; E78.00 Pure hypercholesterolemia, unspecified; K21.9 Gastro-esophageal reflux disease without esophagitis; Z79.82 Long term (current) use of aspirin; Z79.899 Other long term (current) drug therapy
CPT/HCPCS: 57288; 00860; J7120; J2405

== ENCOUNTER 2022-02-05 05:28 | Emergency (ER) | payer MEDICARE, SELFPAY ==
[2022-02-05 05:31] VITALS: BP 142/62; PULSE 86; RESP 18; TEMP 36.7; O2SAT 98; BMI 26.3
--- NOTE | 2022-02-05 06:49 | EX.ED.DYSGE1 ---
HPI History of Present Illness Chief Complaint: Wound Informant: patient Onset/Context/Timing Onset: Weeks (1) Context: Gradual Onset Timing: Continuous Quality: Sharp Location: Mouth and throat Worsened by: Antifungal medicine Relieved by: Nothing Narrative Narrative: Patient presents with thrush and a blister under her tongue that has been getting worse over the last week. Patient noticed a blister under her tongue today. Patient states she was put on a medication for thrush. Patient states she was unable to tolerate that medication. Patient describes her pain as aching and burning. Patient states it is mainly in her mouth and throat. Patient also admits to some nasal congestion. Patient admits to some nausea but denies any vomiting. Patient admits to some diarrhea. Patient also admits to a nonproductive cough. [facility] Medical History Allergic reaction Anemia Anxiety Arthritis Back pain Bladder disease Constipation Diverticula of colon Dysphagia GERD (gastroesophageal reflux disease) High cholesterol History of diverticulitis History of echocardiogram History of stress test Non-smoker Oral candidiasis Restless legs Rheumatoid arthritis Screening for intestinal cancer Shortness of breath Stress incontinence Home Medications cyanocobalamin (vitamin B-12) 2,000 mcg PO DAILY 02/12/17 [History Last Taken 10/25/20] duloxetine 60 mg PO DAILY 02/12/17 [History Last Taken 10/25/20] aspirin 81 mg chewable tablet 81 mg PO QDAY 01/29/18 [History Last Taken 01/17/22] cholecalciferol (vit D3) 1,000 unit-vitamin K2 (MK4) 100 mcg tablet 1 tab PO QDAY 01/29/18 [History Last Taken 10/25/20] gabapentin 600 mg tablet 600 mg PO QHS 04/25/18 [History Last Taken 10/25/20] vitamin K2 40 mcg tablet 40 mcg PO DAILY 04/25/18 [History Last Taken 10/25/20] fenofibrate 160 mg PO DAILY 10/19/20 [History Last Taken 10/25/20] ibandronate 150 mg PO QMONTH 10/19/20 [History Last Taken 10/25/20] mometasone 0.1 % topical ointment 1 applic TOPICAL .COMPLEX #15 g 04/05/21 [Rx Last Taken Unknown] vitamins A,C,D-bjph-nstmqh 14,320 unit-226 mg-200 unit capsule 1 cap PO BID 04/05/21 [History Last Taken Unknown] estradiol 0.1 g VAGINAL MOWEFR 01/18/22 [History Last Taken Unknown] oxycodone-acetaminophen [Percocet] 1 tab PO Q8H PRN 3 Days #10 tab 01/23/22 [Rx Last Taken Unknown] miconazole 50 mg buccal tablet 50 mg BUCCAL QAM 14 Days #14 tab 02/02/22 [Rx Last Taken Unknown] prednisone 20 mg tablet 20 mg PO BID #10 tab 02/02/22 [Rx Last Taken Unknown] MAGIC MOUTH WASH (BMX) 30 ml BUCCAL Q8H PRN PRN #180 ml 02/05/22 [Rx Last Taken Unknown] Allergy/AdvReac Type Severity Reaction Status Date / Time erythromycin base Allergy Rash Verified 01/23/22 11:18 fluconazole Allergy Rash Verified 02/05/22 05:38 ibuprofen [From Motrin] Allergy Rash Verified 01/23/22 11:18 pitavastatin [From Livalo] Allergy Rash Verified 02/05/22 05:38 pravastatin [From Pravachol] Allergy Rash Verified 02/05/22 05:38 dicyclomine HCl [From Bentyl] AdvReac Nausea Verified 01/23/22 11:18 nitrofurantoin AdvReac Nausea Verified 01/23/22 11:18 Sulfa (Sulfonamide AdvReac Nausea Verified 01/23/22 11:18 Antibiotics) Family History Mother CVA (cerebral vascular accident) Sister Diabetes Heart disease Brother Heart disease Daughter Breast cancer Surgical History History of appendectomy History of colectomy (~03/2017) History of colonoscopy (~03/2017) History of esophagogastroduodenoscopy (EGD) (~2014) History of hysterectomy History of laparoscopic cholecystectomy History of lithotripsy Social History Smoking Status: Never smoker alcohol intake: never substance use type: does not use caffeine: Yes what type of physical activity do you participate in: none seatbelt use: always do you feel safe at home: Yes additional social history: [place] are retired ROS ROS ED Constitutional Constitutional ED: Denies chills or fever(s) Eyes Eyes: Denies blurry vision or change in vision ENT ENT ED: Reports rhinorrhea and sore throat Cardiovascular Cardiovascular: Denies chest pain or palpitations Respiratory/Chest Respiratory/Chest: Reports cough; Denies dyspnea Gastrointestinal Gastrointestinal: Reports diarrhea and nausea; Denies vomiting Genitourinary Genitourinary ED: Denies dysuria or hematuria Musculoskeletal Musculoskeletal: Denies back pain or neck pain Integumentary Reports rash; Denies abscess Neurologic Neurologic: Denies headache(s) or weakness Allergic/Immunologic Allergic/Immunologic ED: Denies mouth swelling or urticaria EXAM Physical Exam Const Vital Signs: 02/05/22 05:31 Temperature 98.1 F Temperature Source Oral Pulse Rate 86 Respiratory Rate 18 Blood Pressure 142/62 H Blood Pressure Mean 88 Pulse Ox 98 Oxygen Delivery Method Room Air Positive well nourished and well developed General Appearance ED: well developed and NAD HEENT Reports moist mucous membranes HEENT Narrative: There is a tender lesion in the sublingual area on the mucosal surface. There is no erythema or warmth. There is no abscess. Teeth are intact. There is mild exudate on the tongue itself. Oropharynx is clear. Airway is patent. Eyes PERRL and EOMs intact bilaterally Neck supple and no JVD Neuro oriented x3, CN's II-XII intact bilaterally and no sensory deficits noted Sensorium / Orientation: alert Motor Exam: strength 5/5 throughout Psych mental status grossly normal MDM MDM MDM Narrative Medical decision making narrative: Patient was given a prescription for Magic mouthwash. Patient was also given referral for ENT. Patient was advised that this may need biopsy if it does not improve. Patient understood and was agreeable with the plan. All questions were answered. Discharge Plan Triage Chief Complaint: Wound ED Provider: Jenaro Fontenot Dx/Rx/DC Orders Clinical Impression: Aphthous ulcer of mouth, Oral thrush Instructions: ED Canker Sore Prescriptions: New MAGIC MOUTH WASH (BMX) 180 mL suspension 30 ml buccal Q8H PRN PRN (Reason: pain) Qty: 180 RF: 0 No Action vitamin D3-vitamin K2 (MK4) 1,000-100 unit-mcg tablet 1 tab PO QDAY RF: 0 aspirin 81 mg tablet,chewable 81 mg PO QDAY RF: 0 vitamin K2 40 mcg tablet 40 mcg PO DAILY RF: 0 gabapentin 600 mg tablet 600 mg PO QHS RF: 0 PreserVision AREDS 14,320-226-200 wqmp-ix-nlhf capsule 1 cap PO BID RF: 0 mometasone 0.1 % ointment 1 applic topical .COMPLEX Qty: 15 RF: 2 Oravig 50 mg muco-adhesive buccal tablet 50 mg buccal QAM 14 Days Qty: 14 RF: 0 prednisone 20 mg tablet 20 mg PO BID Qty: 10 RF: 0 cyanocobalamin (vitamin B-12) 1,000 MCG tablet 2,000 mcg PO DAILY RF: 0 duloxetine 60 MG capsule,delayed release(DR/EC) 60 mg PO DAILY RF: 0 ibandronate 150 MG tablet 150 mg PO QMONTH RF: 0 fenofibrate 160 MG tablet 160 mg PO DAILY RF: 0 estradiol 0.01 % (0.1 mg/gram) cream 0.1 g vaginal MOWEFR RF: 0 oxycodone-acetaminophen [Percocet] 5-325 mg tablet 1 tab PO Q8H PRN (Reason: pain) 3 Days Qty: 10 RF: 0 Primary Care Provider: Camryn Faith Referrals: Ben Daigle MD [STAFF PHYSICIAN] - 3-5 Days Camryn Faith DO [Primary Care Provider] - 3-5 Days Disposition Disposition: Home, Self Care
== END 2022-02-05 07:11 | disposition home or self-care (01) ==
PROVIDERS: Emergency Provider Emergency Medicine; PCP Internal Medicine; Visit Provider Emergency Medicine
DX: B37.0 Candidal stomatitis (principal); M06.9 Rheumatoid arthritis, unspecified; K12.0 Recurrent oral aphthae; E78.00 Pure hypercholesterolemia, unspecified; Z79.82 Long term (current) use of aspirin; Z79.899 Other long term (current) drug therapy
CPT/HCPCS: 99282

== ENCOUNTER → 2022-02-20 | Outpatient (CLI) | payer MEDICARE, SELFPAY ==
[2022-02-20 15:25] LABS: Hematocrit 33.6 % (37-47); Hemoglobin 10.6 g/dL (12.0-15.0); Mean Corp Hgb Conc 31.5 g/dL (32-36); Mean Corpuscular Hgb 29.6 pg (27.0-32.0); Mean Corpuscular Volume 93.9 fL (81-99); Mean Platelet Vol. 9.4 fl (6.2-12.0); POSITIVE COUNT YES; POSITIVE MORPHOLOGY YES; RBC Distribution Width SD 46.1 fl (35.1-43.9); Red Blood Count 3.58 M/mm3 (4.2-5.4); White Blood Count 5.8 K/mm3 (4.4-11.0)
[2022-02-20 15:31] LABS: Platelet Count 1350 K/mm3 (150-450)
[2022-02-20 15:50] LABS: ALB/GLOB Ratio 0.9 RATIO (0.9-2.4); AST(SGOT) 26 U/L (15-37); Alanine Aminotransfer ALT/SGPT 34 U/L (13-56); Albumin, Serum 3.2 g/dL (3.2-5.0); Alkaline Phosphatase 60 U/L (45-117); Anion Gap 7 (5-15); BUN 16 mg/dL (7-18); BUN/Creat Ratio 16.4 RATIO (10-20); Calcium,Total 9.4 mg/dL (8.5-10.1); Chloride 106 mmol/L (98-107); Creatinine, Serum 0.98 mg/dL (0.55-1.02); EST Glomerular Filtration Rate 59 mL/min (>60); Est Glom Filt Rate - Afr Amer 71 mL/min (>60); Globulin 3.5 g/dL (2.2-4.2); Glucose 99 mg/dL (74-106); Potassium 3.4 mmol/L (3.5-5.1); Protein, Total 6.7 g/dL (6.4-8.2); Sodium Level 141 mmol/L (136-145)
[2022-02-20 15:51] LABS: Differential Indicated MANUAL DIFF
[2022-02-20 16:02] LABS: Basophil 1 % (0-1); Lymphocyte 41 % (19-41); Metamyelocyte 2 % (0-1); Monocyte 10 % (0-10); Myelocyte 6 % (0-0); Neutrophil-Band 4 % (0-5); Neutrophil-Segmented 36 % (47-70); Scan Smear per Review Criteria MANUAL DIFF; Total Cells Counted 100 (MANUAL DIFF)
[2022-02-20 16:04] LABS: Absolute Neutrophil Count 2.3 X10^3/uL (2.0-7.7)
[2022-02-20 16:05] LABS: Absolute Lymphocyte Count 2.37 X10^3/uL (0.83-4.51)
[2022-02-21 13:40] LABS: Pathologist Review Reviewed
== END | disposition home or self-care (01) ==
LOC: MTLAB 14:02
PROVIDERS: PCP Internal Medicine; Referring Provider Internal Medicine Rheumatology; Visit Provider Internal Medicine Rheumatology
DX: M06.4 Inflammatory polyarthropathy (principal); M79.7 Fibromyalgia; M17.0 Bilateral primary osteoarthritis of knee; M19.071 Primary osteoarthritis, right ankle and foot; K76.0 Fatty (change of) liver, not elsewhere classified; K21.9 Gastro-esophageal reflux disease without esophagitis; M47.896 Other spondylosis, lumbar region; Z79.899 Other long term (current) drug therapy
CPT/HCPCS: 36415; 80053; 85025

== ENCOUNTER → 2022-03-20 | Outpatient (CLI) | payer MEDICARE, SELFPAY ==
[2022-03-20 12:43] LABS: Absolute Lymphocyte Count 2.17 X10^3/uL (0.83-4.51); Absolute Neutrophil Count 3.6 X10^3/uL (2.0-7.7); Basophil# 0.06 X10^3/uL; Eosinophil# 0.05 X10^3/uL; Eosinophils% 0.8 % (0-5); Hematocrit 35.6 % (37-47); Hemoglobin 11.2 g/dL (12.0-15.0); Lymphocyte # 2.17 X10^3/ul (0.83-4.51); Lymphocyte % 34.6 % (19-41); Mean Corp Hgb Conc 31.5 g/dL (32-36); Mean Corpuscular Hgb 29.6 pg (27.0-32.0); Mean Corpuscular Volume 93.9 fL (81-99); Mean Platelet Vol. 9.9 fl (6.2-12.0); Monocyte# 0.41 X10^3/uL; Monocyte% 6.5 % (0-10); NRBC Flagged by Analyzer 0 % (0-5); Neutrophil # 3.55 X10^3/uL (2.7-7.7); Neutrophil % 56.6 % (47-70); Platelet Count 371 K/mm3 (150-450); RBC Distribution Width CV 15.7 % (11.6-14.6); RBC Distribution Width SD 53.9 fl (35.1-43.9); Red Blood Count 3.79 M/mm3 (4.2-5.4); White Blood Count 6.3 K/mm3 (4.4-11.0)
[2022-03-20 12:57] LABS: ALB/GLOB Ratio 1.1 RATIO (0.9-2.4); AST(SGOT) 24 U/L (15-37); Alanine Aminotransfer ALT/SGPT 21 U/L (13-56); Albumin, Serum 3.7 g/dL (3.2-5.0); Alkaline Phosphatase 54 U/L (45-117); Anion Gap 8 (5-15); BUN 11 mg/dL (7-18); BUN/Creat Ratio 11.4 RATIO (10-20); Calcium,Total 9.3 mg/dL (8.5-10.1); Chloride 109 mmol/L (98-107); Creatinine, Serum 0.96 mg/dL (0.55-1.02); EST Glomerular Filtration Rate 60 mL/min (>60); Est Glom Filt Rate - Afr Amer 72 mL/min (>60); Globulin 3.3 g/dL (2.2-4.2); Glucose 130 mg/dL (74-106); Potassium 3.7 mmol/L (3.5-5.1); Sodium Level 142 mmol/L (136-145)
== END | disposition home or self-care (01) ==
PROVIDERS: PCP Internal Medicine; Referring Provider Internal Medicine Rheumatology; Visit Provider Internal Medicine Rheumatology
DX: M06.4 Inflammatory polyarthropathy (principal); M79.7 Fibromyalgia; M17.0 Bilateral primary osteoarthritis of knee; M19.071 Primary osteoarthritis, right ankle and foot; K21.9 Gastro-esophageal reflux disease without esophagitis; M47.896 Other spondylosis, lumbar region; H33.001 Unspecified retinal detachment with retinal break, right eye; E78.5 Hyperlipidemia, unspecified; F32.81 Premenstrual dysphoric disorder; F41.9 Anxiety disorder, unspecified; N20.0 Calculus of kidney; N13.30 Unspecified hydronephrosis; Z79.899 Other long term (current) drug therapy
CPT/HCPCS: 36415; 80053; 85025

== ENCOUNTER → 2022-06-08 | Outpatient (CLI) | payer MEDICARE, SELFPAY ==
--- NOTE | 2022-06-08 09:49 | BI_ITS ---
MAMMOGRAPHY - BILATERAL SCREENING REASON FOR EXAM: Female, 77 years old. Routine annual screening examination. PERTINENT HISTORY: Daughter with breast cancer. Remote left excisional breast biopsy. TECHNIQUE: Digital bilateral breast rosa (3D mammographic acquisition) in the CC and MLO projections. 2-D mediolateral oblique (MLO) and craniocaudad (CC) views of both breasts were obtained. CAD: Full Field Digital Mammography with Computer Added Detection was performed. COMPARISON: Comparison is made with prior study dated 05/30/2021 and 05/28/2020. FINDINGS: Breast Composition: There are scattered areas of fibroglandular density. There are no dominant masses or suspicious calcifications. There is a stable 4 mm well-defined nodule in the deep slightly upper lateral aspect of the left breast. This most likely represents a small lymph node. No other significant abnormalities are identified. There has been no significant change since the prior study. BI/SCRN MAMM (CAD)W/ROSA BILAT IMPRESSION: Stable bilateral screening mammogram. Yearly follow-up mammogram recommended. (A) ASSESSMENT CATEGORY: BIRADS Category 2: Benign. A letter regarding these results will be sent to the patient by the facility within 30 days. Approximately 10% of breast cancers are not detected by mammography. A normal mammogram should not delay biopsy of a clinically suspicious abnormality. [id number] Electronically Signed: Zbigniew Perez MD at 10:56 EDT ,
--- NOTE | 2022-06-08 09:54 | BD_ITS ---
STUDY: DUAL ENERGY X-RAY ABSORPTIOMETRY / DXA REASON FOR EXAM: Female, 77 years old. [id number] TECHNIQUE: Bone Mineral Density (BMD) measurements of lumbar spine and bilateral hips were obtained. COMPARISON: Comparison is made with prior study dated 05/26/2020. FINDINGS: Lumbar Spine (L1-L4): g/cm2 (0.923) / T-score (-1.1) / Z-score (1.5) Findings are suggestive of osteopenia with a low fracture risk. Left Femur Total: g/cm2 (0.913) / T-score (-0.2) / Z-score (1.8) Left Femoral Neck: g/cm2 (0.749) / T-score (-0.9) / Z-score (1.4) Right Femur Total: g/cm2 (0.877) / T-score (-0.5) / Z-score (1.5) Right Femoral Neck: g/cm2 (0.713) / T-score (-1.2) / Z-score (1.0) The T-Scores on the most recent prior examination were: Lumbar Spine (L1-L4): There has been improvement of bone density since the previous examination. Left Femur Total: which represents a worsening of 2.2%. Right Femur Total: which represents an improvement of 3.1%. BD/Dexa Bone Density Study IMPRESSION: The patient is considered osteopenic as outlined below according to World Matt Organization (WHO) criteria with a low fracture risk. There has been improvement of bone density since the previous examination. Reference Information: The T-score is the number of standard deviations above or below the standard which is normal for young adults at their peak bone mineral density. The World Health Organization (WHO) interprets the T-scores as follows: Above -1 Normal bone density Between -1 and -2.5 Osteopenia Equal to / or below -2.5 Osteoporosis As a practical clinical guideline, osteopenia may be graded as follows: Mild -1 through -1.5 Moderate -1.6 through -2.0 Severe -2.1 through -2.4 The Z-score is the number of standard deviations above or below age-matched controls. A Z-score of less than -1.5 would be considered abnormal. References: 1. NIH Osteoporosis and Related Bone Diseases www osteo.org 2. International Society for Clinical Densitometry www iscd.org 3. National Osteoporosis Foundation www nof.org Electronically Signed: Zbigniew Perez MD at 9:08 EDT ,
== END | disposition home or self-care (01) ==
LOC: OPBD 09:46
PROVIDERS: PCP Internal Medicine; Visit Provider Internal Medicine
DX: M81.0 Age-related osteoporosis without current pathological fracture (principal); Z78.0 Asymptomatic menopausal state; Z12.31 Encounter for screening mammogram for malignant neoplasm of breast; Z80.3 Family history of malignant neoplasm of breast
CPT/HCPCS: 77063; 77067; 77080

== ENCOUNTER → 2022-06-14 | Outpatient (CLI) | payer MEDICARE, SELFPAY ==
[2022-06-14 15:18] LABS: Absolute Lymphocyte Count 1.38 X10^3/uL (0.83-4.51); Absolute Neutrophil Count 2.6 X10^3/uL (2.0-7.7); Basophil# 0.03 X10^3/uL; Basophil% 0.7 % (0-1); Eosinophil# 0.03 X10^3/uL; Eosinophils% 0.7 % (0-5); Hematocrit 35.9 % (37-47); Hemoglobin 11.5 g/dL (12.0-15.0); Lymphocyte # 1.38 X10^3/ul (0.83-4.51); Lymphocyte % 30.6 % (19-41); Mean Corpuscular Hgb 30.6 pg (27.0-32.0); Mean Corpuscular Volume 95.5 fL (81-99); Mean Platelet Vol. 9.8 fl (6.2-12.0); Monocyte# 0.42 X10^3/uL; Monocyte% 9.3 % (0-10); NRBC Flagged by Analyzer 0 % (0-5); Neutrophil # 2.64 X10^3/uL (2.7-7.7); Neutrophil % 58.5 % (47-70); Platelet Count 379 K/mm3 (150-450); RBC Distribution Width SD 50.9 fl (35.1-43.9); Red Blood Count 3.76 M/mm3 (4.2-5.4); White Blood Count 4.5 K/mm3 (4.4-11.0)
[2022-06-14 15:38] LABS: AST(SGOT) 48 U/L (15-37); Alanine Aminotransfer ALT/SGPT 47 U/L (13-56); Albumin, Serum 3.8 g/dL (3.2-5.0); Alkaline Phosphatase 67 U/L (45-117); Anion Gap 8 (5-15); BUN 15 mg/dL (7-18); BUN/Creat Ratio 13.3 RATIO (10-20); Calcium,Total 9.6 mg/dL (8.5-10.1); Chloride 105 mmol/L (98-107); Creatinine, Serum 1.13 mg/dL (0.55-1.02); EST Glomerular Filtration Rate 49 mL/min (>60); Est Glom Filt Rate - Afr Amer 60 mL/min (>60); Glucose 119 mg/dL (74-106); Potassium 3.8 mmol/L (3.5-5.1); Protein, Total 7.8 g/dL (6.4-8.2); Sodium Level 137 mmol/L (136-145)
== END | disposition home or self-care (01) ==
LOC: MTLAB 13:33
PROVIDERS: PCP Internal Medicine; Referring Provider Internal Medicine Rheumatology; Visit Provider Internal Medicine Rheumatology
DX: M06.4 Inflammatory polyarthropathy (principal); E11.9 Type 2 diabetes mellitus without complications; M19.041 Primary osteoarthritis, right hand; M19.042 Primary osteoarthritis, left hand; M17.0 Bilateral primary osteoarthritis of knee; M19.071 Primary osteoarthritis, right ankle and foot; K76.0 Fatty (change of) liver, not elsewhere classified; M47.896 Other spondylosis, lumbar region; H33.001 Unspecified retinal detachment with retinal break, right eye; N13.2 Hydronephrosis with renal and ureteral calculous obstruction; E78.5 Hyperlipidemia, unspecified; H35.3130 Nonexudative age-related macular degeneration, bilateral, stage unspecified; H43.813 Vitreous degeneration, bilateral; H33.311 Horseshoe tear of retina without detachment, right eye; Z79.899 Other long term (current) drug therapy
CPT/HCPCS: 36415; 80053; 85025

== ENCOUNTER → 2022-07-26 | Outpatient (CLI) | payer MEDICARE, SELFPAY ==
[2022-07-26 15:25] LABS: Absolute Neutrophil Count 3.6 X10^3/uL (2.0-7.7); Basophil# 0.02 X10^3/uL; Basophil% 0.3 % (0-1); Eosinophil# 0.03 X10^3/uL; Eosinophils% 0.5 % (0-5); Hematocrit 37.3 % (37-47); Hemoglobin 11.7 g/dL (12.0-15.0); Lymphocyte % 30.2 % (19-41); Mean Corp Hgb Conc 31.4 g/dL (32-36); Mean Corpuscular Hgb 30.2 pg (27.0-32.0); Mean Corpuscular Volume 96.1 fL (81-99); Mean Platelet Vol. 9.4 fl (6.2-12.0); Monocyte% 8.4 % (0-10); NRBC Flagged by Analyzer 0 % (0-5); Neutrophil % 60.3 % (47-70); Platelet Count 394 K/mm3 (150-450); RBC Distribution Width CV 14.6 % (11.6-14.6); Red Blood Count 3.88 M/mm3 (4.2-5.4)
[2022-07-26 15:54] LABS: ALB/GLOB Ratio 1.2 RATIO (0.9-2.4); AST(SGOT) 24 U/L (15-37); Alanine Aminotransfer ALT/SGPT 27 U/L (13-56); Alkaline Phosphatase 64 U/L (45-117); Anion Gap 6 (5-15); BUN 16 mg/dL (7-18); BUN/Creat Ratio 16.1 RATIO (10-20); Calcium,Total 10.1 mg/dL (8.5-10.1); Chloride 108 mmol/L (98-107); Creatinine, Serum 0.99 mg/dL (0.55-1.02); EST Glomerular Filtration Rate 57 mL/min (>60); Est Glom Filt Rate - Afr Amer 69 mL/min (>60); Globulin 3.3 g/dL (2.2-4.2); Glucose 85 mg/dL (74-106); Potassium 4.3 mmol/L (3.5-5.1); Protein, Total 7.3 g/dL (6.4-8.2); Sodium Level 141 mmol/L (136-145)
== END | disposition home or self-care (01) ==
LOC: MTLAB 11:21
PROVIDERS: PCP Internal Medicine; Referring Provider Internal Medicine Rheumatology; Visit Provider Internal Medicine Rheumatology
DX: M06.4 Inflammatory polyarthropathy (principal); E11.9 Type 2 diabetes mellitus without complications; M79.7 Fibromyalgia; M19.041 Primary osteoarthritis, right hand; M17.0 Bilateral primary osteoarthritis of knee; M19.071 Primary osteoarthritis, right ankle and foot; K76.0 Fatty (change of) liver, not elsewhere classified; K21.9 Gastro-esophageal reflux disease without esophagitis; M47.896 Other spondylosis, lumbar region; H33.001 Unspecified retinal detachment with retinal break, right eye; E78.5 Hyperlipidemia, unspecified; F41.9 Anxiety disorder, unspecified; N20.0 Calculus of kidney; N13.30 Unspecified hydronephrosis; H35.3130 Nonexudative age-related macular degeneration, bilateral, stage unspecified; H43.813 Vitreous degeneration, bilateral; H33.311 Horseshoe tear of retina without detachment, right eye; H04.129 Dry eye syndrome of unspecified lacrimal gland; Z79.899 Other long term (current) drug therapy
CPT/HCPCS: 36415; 80053; 85025

== ENCOUNTER → 2022-09-12 | Outpatient (CLI) | payer MEDICARE, SELFPAY ==
[2022-09-12 12:31] LABS: Absolute Lymphocyte Count 1.94 X10^3/uL (0.83-4.51); Absolute Neutrophil Count 3.1 X10^3/uL (2.0-7.7); Basophil# 0.02 X10^3/uL; Basophil% 0.4 % (0-1); Eosinophil# 0.01 X10^3/uL; Eosinophils% 0.2 % (0-5); Hematocrit 37.8 % (37-47); Hemoglobin 12.1 g/dL (12.0-15.0); Lymphocyte # 1.94 X10^3/ul (0.83-4.51); Lymphocyte % 35.3 % (19-41); Mean Corpuscular Hgb 30.6 pg (27.0-32.0); Mean Corpuscular Volume 95.7 fL (81-99); Mean Platelet Vol. 9.5 fl (6.2-12.0); Monocyte# 0.43 X10^3/uL; Monocyte% 7.8 % (0-10); NRBC Flagged by Analyzer 0 % (0-5); Neutrophil # 3.07 X10^3/uL (2.7-7.7); Neutrophil % 55.9 % (47-70); Platelet Count 395 K/mm3 (150-450); RBC Distribution Width CV 14.4 % (11.6-14.6); RBC Distribution Width SD 50.1 fl (35.1-43.9); Red Blood Count 3.95 M/mm3 (4.2-5.4); White Blood Count 5.5 K/mm3 (4.4-11.0)
[2022-09-12 13:16] LABS: ALB/GLOB Ratio 1.1 RATIO (0.9-2.4); AST(SGOT) 43 U/L (15-37); Alanine Aminotransfer ALT/SGPT 38 U/L (13-56); Alkaline Phosphatase 61 U/L (45-117); Anion Gap 7 (5-15); BUN 16 mg/dL (7-18); BUN/Creat Ratio 14.8 RATIO (10-20); Chloride 106 mmol/L (98-107); Creatinine, Serum 1.08 mg/dL (0.55-1.02); EST Glomerular Filtration Rate 52 mL/min (>60); Est Glom Filt Rate - Afr Amer 63 mL/min (>60); Globulin 3.5 g/dL (2.2-4.2); Glucose 85 mg/dL (74-106); Potassium 4.1 mmol/L (3.5-5.1); Protein, Total 7.5 g/dL (6.4-8.2); Sodium Level 139 mmol/L (136-145)
== END | disposition home or self-care (01) ==
LOC: MTLAB 11:09
PROVIDERS: PCP Internal Medicine; Referring Provider Internal Medicine Rheumatology; Visit Provider Internal Medicine Rheumatology
DX: M06.4 Inflammatory polyarthropathy (principal); Z79.899 Other long term (current) drug therapy
CPT/HCPCS: 36415; 80053; 85025

== ENCOUNTER → 2022-10-27 | Outpatient (CLI) | payer MEDICARE, SELFPAY ==
[2022-10-27 13:00] LABS: Vitamin B12 389 pg/mL (211-911); Vitamin D,25 Hydroxy 92.5 ng/mL
[2022-10-27 13:01] LABS: AST(SGOT) 29 U/L (15-37); Alanine Aminotransfer ALT/SGPT 30 U/L (13-56); Albumin, Serum 3.7 g/dL (3.2-5.0); Alkaline Phosphatase 58 U/L (45-117); Anion Gap 8 (5-15); BUN 17 mg/dL (7-18); BUN/Creat Ratio 15.5 RATIO (10-20); Calcium,Total 9.7 mg/dL (8.5-10.1); Chloride 108 mmol/L (98-107); Cholesterol 229 mg/dL (200); EST Glomerular Filtration Rate 51 mL/min (>60); Est Glom Filt Rate - Afr Amer 62 mL/min (>60); Ferritin 48 ng/mL (8-252); Globulin 3.6 g/dL (2.2-4.2); Glucose 103 mg/dL (74-106); High Density Lipoprotein 38 mg/dL; Protein, Total 7.3 g/dL (6.4-8.2); Sodium Level 139 mmol/L (136-145); Triglycerides 173 mg/dL; Very Low Density Lipoprotein 35 mg/dL (5-40)
== END | disposition home or self-care (01) ==
LOC: MTLAB 09:35
PROVIDERS: PCP Family Medicine; Referring Provider Family Medicine; Visit Provider Family Medicine
DX: E78.5 Hyperlipidemia, unspecified (principal); K21.9 Gastro-esophageal reflux disease without esophagitis; F41.9 Anxiety disorder, unspecified
CPT/HCPCS: 36415; 80053; 80061; 82306; 82607; 82728

== ENCOUNTER → 2022-11-20 | Outpatient (CLI) | payer MEDICARE, SELFPAY ==
--- NOTE | 2022-11-20 08:55 | BI_ITS ---
MAMMOGRAPHY - BILATERAL DIAGNOSTIC REASON FOR EXAM: Female, 77 years old. Right inferior lateral breast pain for 2 weeks. PERTINENT HISTORY: Daughter with breast cancer. TECHNIQUE: Digital bilateral breast stephanie (3D mammographic acquisition) in the CC and MLO projections. 2-D mediolateral oblique (MLO) and craniocaudad (CC) views of both breasts were obtained. CAD: Full Field Digital Mammography with Computer Added Detection was performed. COMPARISON: Comparison is made with prior examination of June 08, 2022 and May 30, 2021. FINDINGS: Breast Composition: There are scattered areas of fibroglandular density. There are no dominant masses or suspicious calcifications. Stable 4 mm well-defined nodule in the deep slightly upper lateral aspect of the left breast suggestive of a small lymph node. No other significant abnormalities are identified. There has been no significant change since the prior study. BI/DIAG MAMM W/CAD, BILAT IMPRESSION: Stable bilateral diagnostic mammogram. One year follow-up recommended. (A) ASSESSMENT CATEGORY: BIRADS Category 2: Benign. A letter regarding these results will be sent to the patient by the facility within 30 days. Approximately 10% of breast cancers are not detected by mammography. A normal mammogram should not delay biopsy of a clinically suspicious abnormality. Electronically Signed: Zbigniew Perez MD at 9:50 EDT ,
--- NOTE | 2022-11-20 08:55 | US_ITS ---
STUDY: ULTRASOUND BREAST - RIGHT REASON FOR EXAM: Female, 77 years old. Pain in the right breast. TECHNIQUE: Axial and longitudinal images of the RIGHT breast were performed with a high resolution ultrasound transducer. # OF IMAGES: 33 COMPARISON: Comparison is made with prior sonogram of the right breast dated February 01, 2018 and prior mammogram done earlier today. FINDINGS: RIGHT Breast: The inferior lateral aspect of the right breast was examined with ultrasound. No sonographic abnormality is seen. US/Breast Limited Unilateral IMPRESSION: No sonographic abnormality is seen. ASSESSMENT CATEGORY: BIRADS Category 2: Benign. A letter regarding these results will be sent to the patient by the facility within 30 days. Electronically Signed: Zbigniew Perez MD at 15:24 EDT ,
== END | disposition home or self-care (01) ==
PROVIDERS: PCP Family Medicine; Referring Provider Nurse Practitioner Family; Visit Provider Nurse Practitioner Family
DX: N64.4 Mastodynia (principal); Z80.3 Family history of malignant neoplasm of breast
CPT/HCPCS: 76642; 77062; 77066; G0279

== ENCOUNTER → 2022-11-27 | Outpatient (CLI) | payer MEDICARE, SELFPAY ==
[2022-11-27 10:14] LABS: Absolute Lymphocyte Count 1.84 X10^3/uL (0.83-4.51); Absolute Neutrophil Count 2.4 X10^3/uL (2.0-7.7); Basophil# 0.01 X10^3/uL; Basophil% 0.2 % (0-1); Hematocrit 37.3 % (37-47); Hemoglobin 11.8 g/dL (12.0-15.0); Lymphocyte # 1.84 X10^3/ul (0.83-4.51); Lymphocyte % 39.8 % (19-41); Mean Corp Hgb Conc 31.6 g/dL (32-36); Mean Corpuscular Volume 97.9 fL (81-99); Mean Platelet Vol. 9.8 fl (6.2-12.0); Monocyte# 0.38 X10^3/uL; Monocyte% 8.2 % (0-10); NRBC Flagged by Analyzer 0 % (0-5); Neutrophil # 2.37 X10^3/uL (2.7-7.7); Neutrophil % 51.4 % (47-70); Platelet Count 395 K/mm3 (150-450); RBC Distribution Width CV 14.7 % (11.6-14.6); Red Blood Count 3.81 M/mm3 (4.2-5.4); White Blood Count 4.6 K/mm3 (4.4-11.0)
[2022-11-27 10:27] LABS: AST(SGOT) 23 U/L (15-37); Alanine Aminotransfer ALT/SGPT 28 U/L (13-56); Albumin, Serum 3.6 g/dL (3.2-5.0); Alkaline Phosphatase 56 U/L (45-117); Anion Gap 4 (5-15); BUN 15 mg/dL (7-18); BUN/Creat Ratio 14.7 RATIO (10-20); Calcium,Total 9.8 mg/dL (8.5-10.1); Chloride 108 mmol/L (98-107); Creatinine, Serum 1.02 mg/dL (0.55-1.02); EST Glomerular Filtration Rate 56 mL/min (>60); Est Glom Filt Rate - Afr Amer 67 mL/min (>60); Globulin 3.5 g/dL (2.2-4.2); Glucose 103 mg/dL (74-106); Protein, Total 7.1 g/dL (6.4-8.2); Sodium Level 139 mmol/L (136-145)
== END | disposition home or self-care (01) ==
LOC: MTLAB 07:02
PROVIDERS: PCP Family Medicine; Referring Provider Internal Medicine Rheumatology; Visit Provider Internal Medicine Rheumatology
DX: M06.4 Inflammatory polyarthropathy (principal); Z79.899 Other long term (current) drug therapy
CPT/HCPCS: 36415; 80053; 85025

== ENCOUNTER → 2023-02-12 | Outpatient (CLI) | payer MEDICARE, SELFPAY ==
--- NOTE | 2023-02-12 08:51 | RAD_ITS ---
STUDY: X-RAY - ABDOMEN/PELVIS REASON FOR EXAM: Female, 77 years old. Stones. TECHNIQUE: AP supine and decubitus views of the abdomen and pelvis. COMPARISON: CT the abdomen and pelvis, September 23, 2019 FINDINGS: Lung bases are not included. There is an unremarkable bowel gas pattern. There is increased feces in the right colon which partially obstructs visualization of the right kidney. There are surgical clips in the region of the sigmoid colon. There is no demonstrated free abdominal air. The visualized liver and kidneys are grossly normal in size and morphology. No visualized renal or ureteral calculi. There are calcifications within the spleen. Normal soft tissue structures. Minimal degenerative changes of the thoracic spine. RAD/Abdomen Single View IMPRESSION: 1. No visualized renal or ureteral calculi. 2. Stable splenic calculi. 3. Evidence of colonic resection with sigmoid anastomosis. Electronically Signed: Js Spencer DO at 17:00 EDT ,
== END | disposition home or self-care (01) ==
PROVIDERS: PCP Family Medicine; Referring Provider Urology; Visit Provider Urology
DX: N20.0 Calculus of kidney (principal)
CPT/HCPCS: 74018

== ENCOUNTER → 2023-02-16 | Outpatient (CLI) | payer MEDICARE, SELFPAY ==
[2023-02-16 12:08] LABS: Absolute Lymphocyte Count 1.45 X10^3/uL (0.83-4.51); Absolute Neutrophil Count 2.4 X10^3/uL (2.0-7.7); Basophil# 0.02 X10^3/uL; Basophil% 0.5 % (0-1); Hematocrit 38.7 % (37-47); Hemoglobin 12.1 g/dL (12.0-15.0); Lymphocyte # 1.45 X10^3/ul (0.83-4.51); Lymphocyte % 33.9 % (19-41); Mean Corp Hgb Conc 31.3 g/dL (32-36); Mean Corpuscular Hgb 30.5 pg (27.0-32.0); Mean Corpuscular Volume 97.5 fL (81-99); Mean Platelet Vol. 9.7 fl (6.2-12.0); Monocyte# 0.38 X10^3/uL; Monocyte% 8.9 % (0-10); NRBC Flagged by Analyzer 0 % (0-5); Neutrophil # 2.41 X10^3/uL (2.7-7.7); Neutrophil % 56.2 % (47-70); Platelet Count 387 K/mm3 (150-450); RBC Distribution Width CV 14.2 % (11.6-14.6); RBC Distribution Width SD 50.3 fl (35.1-43.9); Red Blood Count 3.97 M/mm3 (4.2-5.4); White Blood Count 4.3 K/mm3 (4.4-11.0)
[2023-02-16 12:41] LABS: AST(SGOT) 23 U/L (15-37); Alanine Aminotransfer ALT/SGPT 25 U/L (13-56); Albumin, Serum 3.7 g/dL (3.2-5.0); Alkaline Phosphatase 68 U/L (45-117); Anion Gap 6 (5-15); BUN 15 mg/dL (7-18); BUN/Creat Ratio 14.9 RATIO (10-20); Calcium,Total 9.8 mg/dL (8.5-10.1); Chloride 108 mmol/L (98-107); Creatinine, Serum 1.01 mg/dL (0.55-1.02); EST Glomerular Filtration Rate 56 mL/min (>60); Est Glom Filt Rate - Afr Amer 68 mL/min (>60); Globulin 3.7 g/dL (2.2-4.2); Glucose 94 mg/dL (74-106); Potassium 4.1 mmol/L (3.5-5.1); Protein, Total 7.4 g/dL (6.4-8.2); Sodium Level 141 mmol/L (136-145)
== END | disposition home or self-care (01) ==
PROVIDERS: PCP Family Medicine; Referring Provider Internal Medicine Rheumatology; Visit Provider Internal Medicine Rheumatology
DX: M06.4 Inflammatory polyarthropathy (principal); M79.7 Fibromyalgia; Z79.899 Other long term (current) drug therapy
CPT/HCPCS: 36415; 80053; 85025

== ENCOUNTER → 2023-03-13 | Outpatient (CLI) | payer MEDICARE, SELFPAY ==
--- NOTE | 2023-03-13 06:58 | CT_ITS ---
EXAM: CT ABDOMEN WITHOUT AND WITH INTRAVENOUS CONTRAST CLINICAL INDICATION: Pancreatic Lesion TECHNIQUE: Helically acquired images were obtained of the abdomen without and with intravenous contrast. Arterial and venous phase images were obtained. This CT exam was performed using one or more of the following dose reduction techniques: automated exposure control, adjustment of the mA and/or kV according to patient size, and/or use of iterative reconstruction technique. CONTRAST: 100 cc of Isovue-300 IV. With oral contrast. RADIATION DOSE: CTDIvol = 14.37 mGy, DLP = 1124.09 mGy-cm COMPARISON: CT scan of the abdomen and pelvis 09/23/2020. MR of the abdomen 07/21/2021. FINDINGS: LOWER THORAX: Unremarkable. Lung bases are clear. No cardiomegaly. No significant pericardial effusion. LIVER: Unremarkable. Homogeneous. No focal mass. GALLBLADDER AND BILE DUCTS: Cholecystectomy. No intra- or extrahepatic biliary ductal dilation. PANCREAS: Small 3 mm cyst in the neck of the pancreas. This corresponds to the 3 mm cyst seen on the prior MRI separate from the pancreatic duct. SPLEEN: Unremarkable. No change splenic granulomas. ADRENALS: Unremarkable. No nodules. KIDNEYS AND URETERS: Unremarkable. Normal renal size and position. No hydronephrosis. STOMACH AND BOWEL: Unremarkable. No stomach or bowel distention. No focal inflammatory change. INTRAPERITONEAL SPACE: Unremarkable. No ascites or other fluid collection. No free air. BONES/JOINTS: Unremarkable. No suspicious lytic or blastic abnormality. SOFT TISSUES: Unremarkable. No discrete abdominal wall hernia. VASCULATURE: Unremarkable. Abdominal aorta is non-dilated. LYMPH NODES: No enlarged lymph nodes. CT/Abdomen W/WO IV Contrast IMPRESSION: 1. 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 Recommend a contrast-enhanced, pancreas-protocol abdominal CT or MR in 2 years. 2. Cholecystectomy. 3. No change splenic granulomas. Electronically Signed: Nathanael Patterson MD at 7:51 EDT ,
== END | disposition home or self-care (01) ==
LOC: CT 06:58
PROVIDERS: PCP Family Medicine; Referring Provider Family Medicine; Visit Provider Family Medicine
DX: K86.9 Disease of pancreas, unspecified (principal)
CPT/HCPCS: 74170; Q9967

== ENCOUNTER → 2023-05-10 | Outpatient (CLI) | payer MEDICARE, SELFPAY ==
[2023-05-10 12:36] LABS: Absolute Lymphocyte Count 1.36 X10^3/uL (0.83-4.51); Absolute Neutrophil Count 2.9 X10^3/uL (2.0-7.7); Basophil# 0.03 X10^3/uL; Basophil% 0.6 % (0-1); Eosinophil# 0.01 X10^3/uL; Eosinophils% 0.2 % (0-5); Hemoglobin 11.7 g/dL (12.0-15.0); Lymphocyte # 1.36 X10^3/ul (0.83-4.51); Lymphocyte % 28.8 % (19-41); Mean Corp Hgb Conc 31.6 g/dL (32-36); Mean Corpuscular Hgb 30.8 pg (27.0-32.0); Mean Corpuscular Volume 97.4 fL (81-99); Mean Platelet Vol. 9.7 fl (6.2-12.0); Monocyte# 0.44 X10^3/uL; Monocyte% 9.3 % (0-10); NRBC Flagged by Analyzer 0 % (0-5); Neutrophil # 2.86 X10^3/uL (2.7-7.7); Neutrophil % 60.7 % (47-70); Platelet Count 410 K/mm3 (150-450); RBC Distribution Width CV 14.4 % (11.6-14.6); RBC Distribution Width SD 51.8 fl (35.1-43.9); White Blood Count 4.7 K/mm3 (4.4-11.0)
[2023-05-10 12:59] LABS: Vitamin B12 356 pg/mL (211-911); Vitamin D,25 Hydroxy 52.4 ng/mL
[2023-05-10 13:02] LABS: ALB/GLOB Ratio 1.1 RATIO (0.9-2.4); AST(SGOT) 22 U/L (15-37); Alanine Aminotransfer ALT/SGPT 22 U/L (13-56); Albumin, Serum 3.7 g/dL (3.2-5.0); Alkaline Phosphatase 68 U/L (45-117); Anion Gap 5 (5-15); BUN 15 mg/dL (7-18); BUN/Creat Ratio 13.9 RATIO (10-20); Calcium,Total 9.4 mg/dL (8.5-10.1); Chloride 109 mmol/L (98-107); Cholesterol 225 mg/dL (200); Creatinine, Serum 1.08 mg/dL (0.55-1.02); EST Glomerular Filtration Rate 52 mL/min (>60); Est Glom Filt Rate - Afr Amer 63 mL/min (>60); Ferritin 45 ng/mL (8-252); Globulin 3.4 g/dL (2.2-4.2); Glucose 90 mg/dL (74-106); High Density Lipoprotein 34 mg/dL; Protein, Total 7.1 g/dL (6.4-8.2); Sodium Level 138 mmol/L (136-145); Triglycerides 280 mg/dL; Very Low Density Lipoprotein 56 mg/dL (5-40)
== END | disposition home or self-care (01) ==
LOC: MTLAB 10:22
PROVIDERS: PCP Family Medicine; Visit Provider Internal Medicine Rheumatology
DX: M06.4 Inflammatory polyarthropathy (principal); N18.30 Chronic kidney disease, stage 3 unspecified; K21.9 Gastro-esophageal reflux disease without esophagitis; M85.80 Other specified disorders of bone density and structure, unspecified site; Z79.899 Other long term (current) drug therapy
CPT/HCPCS: 36415; 80053; 80061; 82306; 82607; 82728; 85025

== ENCOUNTER → 2023-07-23 | Outpatient (CLI) | payer MEDICARE, SELFPAY ==
[2023-07-23 13:24] LABS: Anion Gap 8 (5-15); BUN 17 mg/dL (7-18); BUN/Creat Ratio 15.2 RATIO (10-20); Calcium,Total 9.6 mg/dL (8.5-10.1); Chloride 106 mmol/L (98-107); Creatinine, Serum 1.12 mg/dL (0.55-1.02); EST Glomerular Filtration Rate 50 mL/min (>60); Est Glom Filt Rate - Afr Amer 60 mL/min (>60); Glucose 95 mg/dL (74-106); Sodium Level 138 mmol/L (136-145)
== END | disposition home or self-care (01) ==
LOC: MFPLAB 09:42
PROVIDERS: PCP Family Medicine; Visit Provider Family Medicine
DX: N18.30 Chronic kidney disease, stage 3 unspecified (principal)
CPT/HCPCS: 36415; 80048

== ENCOUNTER → 2023-07-31 | Outpatient (CLI) | payer MEDICARE, SELFPAY ==
[2023-07-31 10:01] LABS: Absolute Lymphocyte Count 1.68 X10^3/uL (0.83-4.51); Absolute Neutrophil Count 2.5 X10^3/uL (2.0-7.7); Basophil# 0.03 X10^3/uL; Basophil% 0.6 % (0-1); Eosinophil# 0.02 X10^3/uL; Eosinophils% 0.4 % (0-5); Hematocrit 39.1 % (37-47); Hemoglobin 12.2 g/dL (12.0-15.0); Lymphocyte # 1.68 X10^3/ul (0.83-4.51); Lymphocyte % 36.1 % (19-41); Mean Corp Hgb Conc 31.2 g/dL (32-36); Mean Corpuscular Hgb 30.2 pg (27.0-32.0); Mean Corpuscular Volume 96.8 fL (81-99); Mean Platelet Vol. 9.4 fl (6.2-12.0); Monocyte# 0.38 X10^3/uL; Monocyte% 8.2 % (0-10); NRBC Flagged by Analyzer 0 % (0-5); Neutrophil # 2.54 X10^3/uL (2.7-7.7); Neutrophil % 54.5 % (47-70); Platelet Count 419 K/mm3 (150-450); RBC Distribution Width CV 13.9 % (11.6-14.6); RBC Distribution Width SD 49.7 fl (35.1-43.9); Red Blood Count 4.04 M/mm3 (4.2-5.4); White Blood Count 4.7 K/mm3 (4.4-11.0)
[2023-07-31 10:51] LABS: AST(SGOT) 20 U/L (15-37); Alanine Aminotransfer ALT/SGPT 21 U/L (13-56); Albumin, Serum 3.6 g/dL (3.2-5.0); Alkaline Phosphatase 54 U/L (45-117); Anion Gap 3 (5-15); BUN 16 mg/dL (7-18); Calcium,Total 9.4 mg/dL (8.5-10.1); Chloride 111 mmol/L (98-107); Creatinine, Serum 1.14 mg/dL (0.55-1.02); EST Glomerular Filtration Rate 49 mL/min (>60); Est Glom Filt Rate - Afr Amer 59 mL/min (>60); Globulin 3.5 g/dL (2.2-4.2); Glucose 100 mg/dL (74-106); Potassium 3.8 mmol/L (3.5-5.1); Protein, Total 7.1 g/dL (6.4-8.2); Sodium Level 141 mmol/L (136-145)
== END | disposition home or self-care (01) ==
LOC: MTLAB 08:49
PROVIDERS: PCP Family Medicine; Referring Provider Internal Medicine Rheumatology; Visit Provider Internal Medicine Rheumatology
DX: M06.4 Inflammatory polyarthropathy (principal); M79.7 Fibromyalgia; Z79.899 Other long term (current) drug therapy
CPT/HCPCS: 36415; 80053; 85025

== ENCOUNTER → 2023-09-10 | Outpatient (CLI) | payer MEDICARE, SELFPAY ==
[2023-09-10 10:27] LABS: Absolute Lymphocyte Count 2.12 X10^3/uL (0.83-4.51); Absolute Neutrophil Count 3.2 X10^3/uL (2.0-7.7); Basophil# 0.03 X10^3/uL; Basophil% 0.5 % (0-1); Hematocrit 41.5 % (37-47); Lymphocyte # 2.12 X10^3/ul (0.83-4.51); Lymphocyte % 35.6 % (19-41); Mean Corp Hgb Conc 31.3 g/dL (32-36); Mean Corpuscular Hgb 29.7 pg (27.0-32.0); Mean Corpuscular Volume 94.7 fL (81-99); Mean Platelet Vol. 9.4 fl (6.2-12.0); Monocyte# 0.52 X10^3/uL; Monocyte% 8.7 % (0-10); NRBC Flagged by Analyzer 0 % (0-5); Neutrophil # 3.23 X10^3/uL (2.7-7.7); Neutrophil % 54.2 % (47-70); Platelet Count 367 K/mm3 (150-450); RBC Distribution Width CV 13.9 % (11.6-14.6); RBC Distribution Width SD 48.5 fl (35.1-43.9); Red Blood Count 4.38 M/mm3 (4.2-5.4)
[2023-09-10 11:01] LABS: AST(SGOT) 19 U/L (15-37); Alanine Aminotransfer ALT/SGPT 20 U/L (13-56); Albumin, Serum 3.6 g/dL (3.2-5.0); Alkaline Phosphatase 81 U/L (45-117); Anion Gap 5 (5-15); BUN 15 mg/dL (7-18); BUN/Creat Ratio 17.1 RATIO (10-20); Calcium,Total 9.9 mg/dL (8.5-10.1); Chloride 108 mmol/L (98-107); Creatinine, Serum 0.88 mg/dL (0.55-1.02); EST Glomerular Filtration Rate 66 mL/min (>60); Est Glom Filt Rate - Afr Amer 80 mL/min (>60); Globulin 3.7 g/dL (2.2-4.2); Glucose 107 mg/dL (74-106); Potassium 3.9 mmol/L (3.5-5.1); Protein, Total 7.3 g/dL (6.4-8.2); Sodium Level 141 mmol/L (136-145)
== END | disposition home or self-care (01) ==
LOC: MTLAB 07:39
PROVIDERS: PCP Family Medicine; Referring Provider Internal Medicine Rheumatology; Visit Provider Internal Medicine Rheumatology
DX: M06.4 Inflammatory polyarthropathy (principal); M79.7 Fibromyalgia; Z79.899 Other long term (current) drug therapy
CPT/HCPCS: 36415; 80053; 85025

== ENCOUNTER → 2023-10-04 | Outpatient (CLI) | payer MEDICARE, SELFPAY ==
--- NOTE | 2023-10-04 09:08 | RAD_ITS ---
STUDY: X-RAY CHEST REASON FOR EXAM: Female, 78 years old. cough TECHNIQUE: PA and lateral views of the chest. COMPARISON: 08/17/2020 FINDINGS: The lungs are clear and expanded. There is no demonstrated pleural abnormality. Normal size heart. Normal mediastinum and [place]. Normal visualized pulmonary arteries. Normal visualized aortic arch and descending thoracic aorta. Normal visualized thoracic spine. Normal visualized ribs, clavicles, and shoulders. There is no demonstrated abnormality of the visualized soft tissue structures of the upper abdomen. RAD/Chest PA and Lateral IMPRESSION: No evidence of acute cardiopulmonary process or focal consolidation. Electronically Signed: Roderick Diaz DO at 16:51 EST ,
== END | disposition home or self-care (01) ==
LOC: MTRAD 09:08
PROVIDERS: PCP Family Medicine; Referring Provider Nurse Practitioner Family; Visit Provider Nurse Practitioner Family
DX: R05.9 Cough, unspecified (principal)
CPT/HCPCS: 71046

== ENCOUNTER → 2023-12-06 | Outpatient (CLI) | payer MEDICARE, SELFPAY ==
[2023-12-06 09:56] LABS: Absolute Neutrophil Count 3.6 X10^3/uL (2.0-7.7); Basophil# 0.01 X10^3/uL; Basophil% 0.2 % (0-1); Eosinophil# 0.01 X10^3/uL; Eosinophils% 0.2 % (0-5); Hematocrit 40.6 % (37-47); Hemoglobin 12.9 g/dL (12.0-15.0); Lymphocyte % 31.5 % (19-41); Mean Corp Hgb Conc 31.8 g/dL (32-36); Mean Corpuscular Hgb 28.9 pg (27.0-32.0); Mean Corpuscular Volume 90.8 fL (81-99); Mean Platelet Vol. 9.2 fl (6.2-12.0); Monocyte# 0.31 X10^3/uL; Monocyte% 5.4 % (0-10); NRBC Flagged by Analyzer 0 % (0-5); Neutrophil # 3.56 X10^3/uL (2.7-7.7); Neutrophil % 62.3 % (47-70); Platelet Count 329 K/mm3 (150-450); RBC Distribution Width CV 13.7 % (11.6-14.6); RBC Distribution Width SD 45.8 fl (35.1-43.9); Red Blood Count 4.47 M/mm3 (4.2-5.4); White Blood Count 5.7 K/mm3 (4.4-11.0)
[2023-12-06 10:11] LABS: AST(SGOT) 19 U/L (15-37); Alanine Aminotransfer ALT/SGPT 17 U/L (13-56); Albumin, Serum 3.6 g/dL (3.2-5.0); Alkaline Phosphatase 73 U/L (45-117); Anion Gap 8 (5-15); BUN 10 mg/dL (7-18); Calcium,Total 8.9 mg/dL (8.5-10.1); Chloride 108 mmol/L (98-107); EST Glomerular Filtration Rate 57 mL/min (>60); Est Glom Filt Rate - Afr Amer 69 mL/min (>60); Globulin 3.6 g/dL (2.2-4.2); Glucose 163 mg/dL (74-106); Potassium 3.6 mmol/L (3.5-5.1); Protein, Total 7.2 g/dL (6.4-8.2); Sodium Level 140 mmol/L (136-145)
== END | disposition home or self-care (01) ==
LOC: MTLAB 08:39
PROVIDERS: PCP Family Medicine; Referring Provider Internal Medicine Rheumatology; Visit Provider Internal Medicine Rheumatology
DX: M06.4 Inflammatory polyarthropathy (principal); M19.071 Primary osteoarthritis, right ankle and foot; K76.0 Fatty (change of) liver, not elsewhere classified; Z79.899 Other long term (current) drug therapy
CPT/HCPCS: 36415; 80053; 85025

== ENCOUNTER → 2024-01-08 | Outpatient (CLI) | payer MEDICARE, SELFPAY ==
--- NOTE | 2024-01-08 15:48 | CT_ITS ---
STUDY: CT FACIAL BONES WITHOUT CONTRAST REASON FOR EXAM: Female, 78 years old. CHRONIC SINUSITIS RADIATION DOSAGE (If Supplied By Facility): CTDIvol = ( 33.06 ) mGy, DLP = ( 862.77 ) mGycm TECHNIQUE: The patient was scanned in a multi detector CT scanner. Sagittal and coronal images were reconstructed. Individualized dose optimization techniques were used for this CT. COMPARISON: None. FINDINGS: Normal soft tissue structures. Normal orbital mercer and orbital contents. Normal nasal bones and anterior nasal spine. Normal facial bones. There is no demonstrated fracture. Normal visualized paranasal sinuses. CT/Sinus/Facial Bone IMPRESSION: Normal unenhanced CT of the facial bones. Electronically Signed: Carson Briceno MD at 0:07 EDT ,
== END | disposition home or self-care (01) ==
PROVIDERS: PCP Family Medicine; Referring Provider Otolaryngology; Visit Provider Otolaryngology
DX: J32.8 Other chronic sinusitis (principal)
CPT/HCPCS: 70486

== ENCOUNTER → 2024-01-29 | Outpatient (CLI) | payer MEDICARE, SELFPAY ==
[2024-01-29 12:50] LABS: ALB/GLOB Ratio 0.9 RATIO (0.9-2.4); AST(SGOT) 24 U/L (15-37); Alanine Aminotransfer ALT/SGPT 28 U/L (13-56); Albumin, Serum 3.4 g/dL (3.2-5.0); Alkaline Phosphatase 84 U/L (45-117); Anion Gap 11 (5-15); BUN 17 mg/dL (7-18); BUN/Creat Ratio 17.5 RATIO (10-20); Calcium,Total 9.3 mg/dL (8.5-10.1); Chloride 105 mmol/L (98-107); Creatinine, Serum 0.97 mg/dL (0.55-1.02); EST Glomerular Filtration Rate 59 mL/min (>60); Est Glom Filt Rate - Afr Amer 71 mL/min (>60); Globulin 3.9 g/dL (2.2-4.2); Glucose 161 mg/dL (74-106); Potassium 3.9 mmol/L (3.5-5.1); Protein, Total 7.3 g/dL (6.4-8.2); Sodium Level 138 mmol/L (136-145)
== END | disposition home or self-care (01) ==
LOC: MTLAB 09:15
PROVIDERS: PCP Family Medicine; Referring Provider Family Medicine; Visit Provider Family Medicine
DX: E88.89 Other specified metabolic disorders (principal); W19.XXXA Unspecified fall, initial encounter
CPT/HCPCS: 36415; 80053

== ENCOUNTER → 2024-02-07 | Outpatient (CLI) | payer MEDICARE, SELFPAY | END | disposition home or self-care (01) | LOC: LABSPEC 15:26 | PROVIDERS: PCP Family Medicine; Referring Provider Otolaryngology; Visit Provider Otolaryngology | DX: J32.8 Other chronic sinusitis (principal) | CPT/HCPCS: 87070; 87205 ==

== ENCOUNTER → 2024-02-28 | Outpatient (CLI) | payer MEDICARE, SELFPAY ==
--- NOTE | 2024-02-28 09:49 | RAD_ITS ---
STUDY: X-RAY - LUMBAR SPINE REASON FOR EXAM: Female, 78 years old. Inflammatory polyarthropathy. TECHNIQUE: 4 view(s) of the lumbar spine were obtained. COMPARISON: May 04, 2020 FINDINGS: Osteopenia. Normal lumbar lordosis. Mild levoscoliosis. Normal vertebral alignment. Diffuse mild lower thoracic and lumbosacral facet sclerosis. Intervertebral disc space narrowing at L1-2, L2-3, L3-4, and L5-S1 with osteophyte formation. Vascular calcification. 4 mm in diameter calcification projected over the upper pole of the left kidney. RAD/L/S Spine Min 4 Views IMPRESSION: Osteopenia with moderate lower lumbosacral spondylosis. Probable left nephrocalcinosis. Electronically Signed: Garrett Velasquez MD at 9:19 EDT ,
[2024-02-28 12:29] LABS: Absolute Lymphocyte Count 1.49 X10^3/uL (0.83-4.51); Absolute Neutrophil Count 2.9 X10^3/uL (2.0-7.7); Basophil# 0.02 X10^3/uL; Basophil% 0.4 % (0-1); Hematocrit 38.6 % (37-47); Hemoglobin 12.5 g/dL (12.0-15.0); Lymphocyte # 1.49 X10^3/ul (0.83-4.51); Lymphocyte % 30.3 % (19-41); Mean Corp Hgb Conc 32.4 g/dL (32-36); Mean Corpuscular Volume 92.8 fL (81-99); Mean Platelet Vol. 9.5 fl (6.2-12.0); Monocyte# 0.45 X10^3/uL; Monocyte% 9.2 % (0-10); NRBC Flagged by Analyzer 0 % (0-5); Neutrophil # 2.92 X10^3/uL (2.7-7.7); Neutrophil % 59.5 % (47-70); Platelet Count 336 K/mm3 (150-450); RBC Distribution Width CV 14.1 % (11.6-14.6); RBC Distribution Width SD 47.4 fl (35.1-43.9); Red Blood Count 4.16 M/mm3 (4.2-5.4); White Blood Count 4.9 K/mm3 (4.4-11.0)
[2024-02-28 12:49] LABS: AST(SGOT) 20 U/L (15-37); Alanine Aminotransfer ALT/SGPT 19 U/L (13-56); Albumin, Serum 3.8 g/dL (3.2-5.0); Alkaline Phosphatase 82 U/L (45-117); Anion Gap 9 (5-15); BUN 15 mg/dL (7-18); BUN/Creat Ratio 15.8 RATIO (10-20); Calcium,Total 10.1 mg/dL (8.5-10.1); Chloride 107 mmol/L (98-107); Creatinine, Serum 0.95 mg/dL (0.55-1.02); EST Glomerular Filtration Rate 60 mL/min (>60); Est Glom Filt Rate - Afr Amer 73 mL/min (>60); Globulin 3.8 g/dL (2.2-4.2); Glucose 122 mg/dL (74-106); Potassium 3.9 mmol/L (3.5-5.1); Protein, Total 7.6 g/dL (6.4-8.2); Sodium Level 138 mmol/L (136-145)
== END | disposition home or self-care (01) ==
LOC: MTRAD 09:47
PROVIDERS: PCP Family Medicine; Referring Provider Internal Medicine Rheumatology; Visit Provider Internal Medicine Rheumatology
DX: M06.4 Inflammatory polyarthropathy (principal); Z79.899 Other long term (current) drug therapy; K76.0 Fatty (change of) liver, not elsewhere classified
CPT/HCPCS: 36415; 72110; 80053; 85025

== ENCOUNTER → 2024-05-02 | Outpatient (CLI) | payer MEDICARE, SELFPAY ==
--- NOTE | 2024-05-02 11:15 | RAD_ITS ---
INDICATION: Knee injury EXAMINATION/TECHNIQUE: X-RAY - RIGHT XR Knee Complete 4 Views or More 4 VIEWS COMPARISON: Prior study dated: 08/01/2010 FINDINGS: SOFT TISSUES: No soft tissue swelling or gas. No radiopaque foreign body. BONES/JOINTS: No acute fracture or subluxation.. Normal alignment. Preservation of the joint space.. No sclerotic or destructive changes observed. RAD/Knee 4 or More Views IMPRESSION: 1. No evidence fracture, malalignment or focal bony or joint space abnormality. Electronically Signed: Carson Martin MD at 0:57 EDT ,
== END | disposition home or self-care (01) ==
LOC: MTRAD 11:14
PROVIDERS: PCP Family Medicine; Referring Provider Family Medicine; Visit Provider Family Medicine
DX: S89.91XS Unspecified injury of right lower leg, sequela (principal)
CPT/HCPCS: 73564

== ENCOUNTER 2024-05-10 11:08 | Emergency (ER) | payer MEDICARE, SELFPAY ==
[2024-05-10 11:08] VITALS: BP 143/74; PULSE 103; RESP 20; TEMP 35.7; O2SAT 100; BMI 26.6
--- NOTE | 2024-05-10 11:28 | EX.ED.DYSGE1 ---
HPI History of Present Illness Chief Complaint: Rash Informant: patient Onset/Context/Timing Onset: Days Context: Gradual Onset Timing: Continuous Quality: Burning Location: Bilateral arms, legs, and mouth. Worsened by: Eating and drinking Relieved by: Nothing Narrative Narrative: Patient presents with a rash that has been getting worse over the past several days. Patient states she was seen by residential concierge and was diagnosed with lichen planus. Patient has been on topical steroids with minimal relief. Patient states she was put on a dental paste for the lesions in her mouth. Patient states she has difficulty eating and swallowing because of the pain. Patient describes her pain as burning. Patient denies any fevers or chills. Patient denies any nausea or vomiting. 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 Oral candidiasis Allergic reaction Stress incontinence Bladder disease High cholesterol Anemia History of diverticulitis Restless legs Back pain Non-smoker History of echocardiogram History of stress test Dysphagia Screening for intestinal cancer Shortness of breath Rheumatoid arthritis GERD (gastroesophageal reflux disease) Constipation Diverticula of colon Arthritis Anxiety Home Medications ?Medication ?Instructions ?Recorded ?Last Taken ?Type cyanocobalamin (vitamin B-12) 2,000 mcg PO DAILY 02/12/17 10/25/20 History 1,000 mcg tablet duloxetine 60 mg capsule,delayed 60 mg PO DAILY 02/12/17 10/25/20 History release aspirin 81 mg chewable tablet 81 mg PO QDAY 01/29/18 01/17/22 History cholecalciferol (vit D3) 1,000 1 tab PO QDAY 01/29/18 10/25/20 History unit-vitamin K2 (MK4) 100 mcg tablet gabapentin 600 mg tablet 600 mg PO QHS 04/25/18 10/25/20 History vitamin K2 40 mcg tablet 40 mcg PO DAILY 04/25/18 10/25/20 History fenofibrate 160 mg tablet 160 mg PO DAILY 10/19/20 10/25/20 History ibandronate 150 mg tablet 150 mg PO QMONTH 10/19/20 10/25/20 History vitamins A,C,N-paus-naravx 4,296 1 cap PO BID 04/05/21 Unknown History mcg-226 mg-90 mg capsule (PreserVision AREDS) oxycodone-acetaminophen 5 mg-325 1 tab PO Q8H PRN pain 3 days #10 01/23/22 Unknown Rx mg tablet (Percocet) tabs prednisone 20 mg tablet 20 mg PO BID #10 tabs 02/02/22 Unknown Rx MAGIC MOUTH WASH (BMX) 180 mL 30 ml buccal Q8H PRN PRN pain #180 02/05/22 Unknown Rx suspension mL mometasone 0.1 % topical ointment 1 applic topical .COMPLEX #15 grams 10/01/22 Unknown Rx estradiol 0.01% (0.1 mg/gram) 0.1 g vaginal MOWEFR #42.5 grams 06/06/23 Unknown Rx vaginal cream azithromycin 250 mg tablet See Rx Instructions PO .COMPLEX #6 09/07/23 Unknown Rx tabs montelukast 10 mg tablet 10 mg PO QPM #20 tabs 09/07/23 Unknown Rx (Singulair) permethrin 5 % topical cream 1 applic topical Q14D 2 doses #60 05/06/24 Unknown Rx grams prednisone 20 mg tablet 40 mg (2 x 20 mg) PO DAILY #12 05/10/24 Unknown Rx TABLETS Allergy/AdvReac Type Severity Reaction Status Date / Time erythromycin base Allergy Rash Verified 05/10/24 11:11 fluconazole Allergy Rash Verified 05/10/24 11:11 ibuprofen (From Motrin) Allergy Rash Verified 05/10/24 11:11 pitavastatin (From Livalo) Allergy Rash Verified 05/10/24 11:11 pravastatin (From Pravachol) Allergy Rash Verified 05/10/24 11:11 dicyclomine HCl (From Bentyl) AdvReac Nausea Verified 05/10/24 11:11 Sulfa (Sulfonamide AdvReac Nausea Verified 05/10/24 11:11 Antibiotics) Family History Mother CVA (cerebral vascular accident) Sister Diabetes Heart disease Brother Heart disease Daughter Breast cancer Surgical History History of lithotripsy History of esophagogastroduodenoscopy (EGD) (~2014) History of colonoscopy (~03/2017) History of colectomy (~03/2017) History of appendectomy History of hysterectomy History of laparoscopic cholecystectomy Social History Smoking Status: Never smoker alcohol intake: never substance use type: does not use caffeine: Yes what type of physical activity do you participate in: none seatbelt use: always do you feel safe at home: Yes additional social history: [employer] are retired ROS ROS ED Constitutional Constitutional ED: Denies chills or fever(s) Eyes Eyes: Denies blurry vision or change in vision ENT ENT ED: Denies rhinorrhea or sore throat Cardiovascular Cardiovascular: Denies chest pain or palpitations Respiratory/Chest Respiratory/Chest: Denies cough or dyspnea Gastrointestinal Gastrointestinal: Denies nausea or vomiting Genitourinary Genitourinary ED: Denies dysuria or hematuria Musculoskeletal Musculoskeletal: Denies back pain or neck pain Integumentary Reports rash; Denies abscess Neurologic Neurologic: Denies headache(s) or weakness Allergic/Immunologic Allergic/Immunologic ED: Denies mouth swelling or urticaria EXAM Physical Exam Const Vital Signs: 05/10/24 11:08 Temperature 96.3 F L Temperature Source Temporal Pulse Rate 103 H Respiratory Rate 20 H Blood Pressure 143/74 H Blood Pressure Mean 97 Pulse Ox 100 Oxygen Delivery Method Room Air Positive well nourished and well developed General Appearance ED: well developed and NAD HEENT Reports moist mucous membranes HEENT Narrative: There are superficial ulcerations in the oral mucosa. There is no bleeding. There is some mild surrounding erythema. Oropharynx is clear. Airway is patent. Neck supple and no JVD Resp normal respiratory effort and clear to auscultation bilaterally Cardio regular rate and regular rhythm GI non-tender and non-distended Palpation: soft Neuro oriented x3, CN's II-XII intact bilaterally and no sensory deficits noted Sensorium / Orientation: alert Motor Exam: strength 5/5 throughout Psych mental status grossly normal Skin Skin Narrative: There is patchy erythematous ulcerated rash over both upper extremities, both lower extremities, and in the oral mucosa. There is no active discharge or drainage noted. There is no induration. There is no tenderness. There are no petechia noted. There is no sloughing of the skin. MDM MDM MDM Narrative Medical decision making narrative: Patient was recently started on topical corticosteroids by her residential concierge. Patient was given a dose of prednisone here. Patient was given a prescription for prednisone. Patient was instructed to follow-up with her residential concierge in 3 to 5 days for further evaluation. Patient understood and was agreeable with the plan. All questions were answered. Discharge Plan Triage Chief Complaint: Rash ED Provider: Jenaro Fontenot Dx/Rx/DC Orders Clinical Impression: Lichen planus Instructions: Understanding Lichen Planus Prescriptions: New prednisone 20 mg tablet 40 mg PO DAILY Qty: 12 0RF No Action vitamin D3-vitamin K2 (MK4) 1,000-100 unit-mcg tablet 1 tab PO QDAY aspirin 81 mg tablet,chewable 81 mg PO QDAY vitamin K2 40 mcg tablet 40 mcg PO DAILY gabapentin 600 mg tablet 600 mg PO QHS PreserVision AREDS 14,320-226-200 [id number] capsule 1 cap PO BID prednisone 20 mg tablet 20 mg PO BID Qty: 10 0RF montelukast [Singulair] 10 mg tablet 10 mg PO QPM Qty: 20 0RF azithromycin 250 mg tablet See Rx Instructions PO .COMPLEX Qty: 6 0RF Rx Instructions: take 500 mg today (day 1), then 250 mg for 4 days (days 2-5) PO permethrin 5 % cream 1 applic topical Q14D Qty: 60 0RF Rx Instructions: apply 1/2 tube [id number] leaving on 8-14 hours before washing off; repeat second treatment 10-14 days w/ other 1/2 of tube cyanocobalamin (vitamin B-12) 1,000 MCG tablet 2,000 mcg PO DAILY duloxetine 60 MG capsule,delayed release(DR/EC) 60 mg PO DAILY Patient Comments: DEPRESSION ibandronate 150 MG tablet 150 mg PO QMONTH fenofibrate 160 MG tablet 160 mg PO DAILY oxycodone-acetaminophen [Percocet] 5-325 mg tablet 1 tab PO Q8H PRN (Reason: pain) 3 Days Qty: 10 0RF MAGIC MOUTH WASH (BMX) 180 mL suspension 30 ml buccal Q8H PRN PRN (Reason: pain) Qty: 180 0RF Rx Instructions: diphenhydramine 12.5 mg/5 mL oral liquid 60 mL; aluminum-mag hydroxide-simethicone 400 mg-400 mg-40 mg/5 mL oral susp 60 mL; Lidocaine Viscous 2 % mucosal solution 60 mL; Per 180 mL mometasone 0.1 % ointment 1 applic topical .COMPLEX Qty: 15 2RF Rx Instructions: 1 applic topical small amount as directed and rub in bid X 2 weeks, dailly X 2 weeks then prn; estradiol 0.01 % (0.1 mg/gram) cream 0.1 g vaginal MOWEFR Qty: 42.5 0RF Primary Care Provider: Shane Saleh Referrals: Shane Saleh MD [Primary Care Provider] - 3-5 Days Activity Restrictions/Additional Instructions: Follow-up with your residential concierge in 3 to 5 days for reevaluation. Print Language: Nepali Disposition Disposition: Home, Self Care
[2024-05-10] MEDS: predniSONE 20 MG Tablet 40 MG PO (11:33)
== END 2024-05-10 11:42 | disposition home or self-care (01) ==
PROVIDERS: Emergency Provider Emergency Medicine; PCP Family Medicine; Visit Provider Emergency Medicine
DX: L43.3 Subacute (active) lichen planus (principal)
CPT/HCPCS: 99282

== ENCOUNTER → 2024-05-12 | Outpatient (CLI) | payer MEDICARE, SELFPAY ==
[2024-05-12 17:57] LABS: Absolute Lymphocyte Count 0.39 X10^3/uL (0.83-4.51); Absolute Neutrophil Count 1.8 X10^3/uL (2.0-7.7); Hematocrit 34.3 % (37-47); Hemoglobin 11.1 g/dL (12.0-15.0); Lymphocyte # 0.39 X10^3/ul (0.83-4.51); Mean Corp Hgb Conc 32.4 g/dL (32-36); Mean Corpuscular Hgb 30.7 pg (27.0-32.0); Monocyte# 0.01 X10^3/uL; Monocyte% 0.5 % (0-10); NRBC Flagged by Analyzer 0 % (0-5); Neutrophil # 1.76 X10^3/uL (2.7-7.7); POSITIVE COUNT YES; POSITIVE DIFFERENTIAL YES; RBC Distribution Width CV 13.1 % (11.6-14.6); RBC Distribution Width SD 45.4 fl (35.1-43.9); Red Blood Count 3.61 M/mm3 (4.2-5.4); White Blood Count 2.2 K/mm3 (4.4-11.0)
[2024-05-12 18:30] LABS: Platelet Count 29 K/mm3 (150-450)
[2024-05-12 18:31] LABS: Differential Indicated SCAN CRITERIA MET
[2024-05-12 19:08] LABS: Anisocytosis 1+; Crenated RBC 3+; Macrocytosis 1+; Ovalocyte RARE; Platelet Estimate MKD DEC (ADEQ); Red Cell Morphology N CHROM NORMAL (NORM C&C)
[2024-05-12 20:36] LABS: ALB/GLOB Ratio 0.9 RATIO (0.9-2.4); AST(SGOT) 66 U/L (15-37); Alanine Aminotransfer ALT/SGPT 151 U/L (13-56); Albumin, Serum 3.5 g/dL (3.2-5.0); Alkaline Phosphatase 137 U/L (45-117); Anion Gap 14 (5-15); BUN 25 mg/dL (7-18); BUN/Creat Ratio 22.9 RATIO (10-20); Chloride 101 mmol/L (98-107); Creatinine, Serum 1.09 mg/dL (0.55-1.02); EST Glomerular Filtration Rate 51 mL/min (>60); Est Glom Filt Rate - Afr Amer 62 mL/min (>60); Globulin 4.1 g/dL (2.2-4.2); Glucose 125 mg/dL (74-106); Potassium 4.5 mmol/L (3.5-5.1); Protein, Total 7.6 g/dL (6.4-8.2); Sodium Level 135 mmol/L (136-145)
[2024-05-13 11:37] LABS: Pathologist Review Reviewed
== END | disposition home or self-care (01) ==
LOC: MFPLAB 15:08
PROVIDERS: PCP Family Medicine; Visit Provider Family Medicine
DX: R42 Dizziness and giddiness (principal); L43.3 Subacute (active) lichen planus
CPT/HCPCS: 36415; 80053; 85025

== ENCOUNTER 2024-05-13 06:59 | Inpatient (IN) | payer MEDICARE, SELFPAY ==
[2024-05-13] VITALS (10 sets, daily range): BP systolic 108–141; BP diastolic 43–61; PULSE 75–92; RESP 14–18; TEMP 36.4–37.3; O2SAT 96–99; BMI 28.3; BMI 25.9
--- NOTE | 2024-05-13 07:17 | EKG12_ITS ---
Test Reason : WEAKNES Blood Pressure : / mmHG Vent. Rate : 074 BPM Atrial Rate : 074 BPM P-R Int : 086 ms QRS Dur : 084 ms QT Int : 398 ms P-R-T Axes : 027 057 089 degrees QTc Int : 441 ms Sinus rhythm with short GA Otherwise normal ECG Confirmed by NANCY MONREO, MARITZA ([id number]), advertising editor SELVIN MATA ([id number]) on 05/14/2024 1:24:50 PM Referred By: Confirmed By:MARITZA CRUZ MD
--- NOTE | 2024-05-13 07:17 | EDS_ITS ---
HPI History of Present Illness Chief Complaint: Weakness Detail of Chief Complaint: Weakness and near syncope Informant: patient Narrative Narrative: Patient presents to the emergency department with complaint of generalized weakness and near syncope. Patient states that she had gotten up and went down to the basement to feed the cats. Patient remembers feeling lightheaded and dizzy and dropping the bolus. She laid down. She would like she was in a pass out. She was incontinent of stool. Also vomited once on arrival to the emergency department. Patient states that she has had a rash for 3 weeks that she has been seen for by dermatology and was diagnosed with lichen planus. She has lesions in her mouth which makes it hard for her to eat or drink. She been having some diarrhea because anytime she tries to eat or drink it just runs right through her. Patient was seen in the emergency department recently and started on prednisone. She denies chest pain or shortness of breath. She denies abdominal pain. 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 Oral candidiasis Allergic reaction Stress incontinence Bladder disease High cholesterol Anemia History of diverticulitis Restless legs Back pain Non-smoker History of echocardiogram History of stress test Dysphagia Screening for intestinal cancer Shortness of breath Rheumatoid arthritis GERD (gastroesophageal reflux disease) Constipation Diverticula of colon Arthritis Anxiety Home Medications ?Medication ?Instructions ?Recorded ?Last Taken ?Type duloxetine 60 mg capsule,delayed 60 mg PO DAILY 02/12/17 10/25/20 History release aspirin 81 mg chewable tablet 81 mg PO QDAY 01/29/18 01/17/22 History gabapentin 600 mg tablet 600 mg PO QHS 04/25/18 10/25/20 History MAGIC MOUTH WASH (BMX) 180 mL 30 ml buccal Q8H PRN PRN pain #180 02/05/22 Unknown Rx suspension mL prednisone 20 mg tablet 40 mg (2 x 20 mg) PO DAILY #12 05/10/24 Unknown Rx TABLETS clobetasol 0.05 % topical cream topical 05/13/24 Unknown History esomeprazole magnesium 40 mg 40 mg PO DAILY 05/13/24 Unknown History capsule,delayed release hyoscyamine sulfate 0.125 mg 0.125 mg PO TID PRN 05/13/24 05/12/24 History disintegrating tablet lisinopril 30 mg tablet 30 mg PO DAILY 05/13/24 Unknown History methotrexate sodium 2.5 mg tablet 12.5 mg PO QWEEK 05/13/24 Unknown History sucralfate 1 gram tablet (Carafate) 1 g PO TID 05/13/24 Unknown History tramadol 50 mg tablet 50 mg PO BID PRN 05/13/24 Unknown History Allergy/AdvReac Type Severity Reaction Status Date / Time erythromycin base Allergy Rash Verified 05/13/24 07:01 fluconazole Allergy Rash Verified 05/13/24 07:01 ibuprofen (From Motrin) Allergy Rash Verified 05/13/24 07:01 pitavastatin (From Livalo) Allergy Rash Verified 05/13/24 07:01 pravastatin (From Pravachol) Allergy Rash Verified 05/13/24 07:01 dicyclomine HCl (From Bentyl) AdvReac Nausea Verified 05/13/24 07:01 Sulfa (Sulfonamide AdvReac Nausea Verified 05/13/24 07:01 Antibiotics) Family History Mother CVA (cerebral vascular accident) Sister Diabetes Heart disease Brother Heart disease Daughter Breast cancer Surgical History History of lithotripsy History of esophagogastroduodenoscopy (EGD) (~2014) History of colonoscopy (~03/2017) History of colectomy (~03/2017) History of appendectomy History of hysterectomy History of laparoscopic cholecystectomy Social History Smoking Status: Never smoker alcohol intake: never substance use type: does not use caffeine: Yes what type of physical activity do you participate in: none seatbelt use: always do you feel safe at home: Yes additional social history: [place]- Both are retired ROS ROS ED Review of Systems ROS Unobtainable: other Constitutional Constitutional ED: Reports lethargy; Denies chills, fever(s), sweats or weight loss Eyes Eyes: Denies blurry vision, change in vision or diplopia ENT ENT ED: Denies rhinorrhea or sore throat Cardiovascular Cardiovascular: Denies chest pain, orthopnea or racing heartbeat Respiratory/Chest Respiratory/Chest: Denies cough, dyspnea, dyspnea on exertion, orthopnea or sputum Gastrointestinal Gastrointestinal: Reports diarrhea, nausea and vomiting; Denies abdominal pain Genitourinary Genitourinary ED: Denies dysuria, hematuria or urinary frequency Musculoskeletal Musculoskeletal: Denies arthralgias, back pain, myalgias or neck pain Integumentary Denies abscess, Abrasions or rash Neurologic Neurologic: Reports weakness; Denies headache(s) Psychiatric Psychiatric: Denies anxiety, depression or suicidal thoughts Endocrine Endocrinology: Denies polydipsia, polyphagia or polyuria Hematologic/Lymphatic Hematologic/Lymphatic: Denies easy bleeding, easy bruising or lymphadenopathy Allergic/Immunologic Allergic/Immunologic ED: Denies mouth swelling, tongue swelling or urticaria EXAM Physical Exam Const Vital Signs: 05/13/24 07:00 05/13/24 07:01 05/13/24 07:05 Temperature 97.8 F 98.3 F Temperature Source Temporal Oral Pulse Rate 75 75 Pulse Rate [Lying] Pulse Rate [Standing (for 1 minute prior to obtaining)] Respiratory Rate 15 18 Respiratory Effort Normal Respiratory Pattern Normal Blood Pressure 124/54 H 124/54 H Blood Pressure [Lying] Blood Pressure [Sitting (for 1 minute prior to obtaining)] Blood Pressure [Standing (for 1 minute prior to obtaining)] Blood Pressure Mean 77 77 Blood Pressure Mean [Lying] Blood Pressure Mean [Sitting (for 1 minute prior to obtaining)] Blood Pressure Mean [Standing (for 1 minute prior to obtaining)] Pulse Ox 99 99 Oxygen Delivery Method Room Air Room Air 05/13/24 07:17 05/13/24 09:00 05/13/24 09:00 Temperature 98.3 F Temperature Source Oral Pulse Rate 76 78 Pulse Rate [Lying] 80 Pulse Rate [Standing (for 1 minute prior to obtaining)] 91 Respiratory Rate 16 16 Respiratory Effort Respiratory Pattern Blood Pressure 108/47 L 121/46 H Blood Pressure [Lying] 115/49 L Blood Pressure [Sitting (for 1 minute prior to obtaining)] 109/61 Blood Pressure [Standing (for 1 minute prior to obtaining)] 118/50 L Blood Pressure Mean 67 71 Blood Pressure Mean [Lying] 71 Blood Pressure Mean [Sitting (for 1 minute prior to obtaining)] 77 Blood Pressure Mean [Standing (for 1 minute prior to obtaining)] 72 Pulse Ox 99 98 Oxygen Delivery Method Room Air Room Air Positive well nourished and well developed General Appearance ED: well developed and NAD HEENT Reports TM's clear and dry mucous membranes HEENT Narrative: Ulcerative lesions noted on the lips and posterior oropharynx. normocephalic and atraumatic; Negative for trauma or tenderness Tympanic Membrane ED: Yes TM's clear Mouth ED: Yes dry mucous membranes Mouth: dry mucous membranes Eyes PERRL and EOMs intact bilaterally General Eye ED: Negative for pale conjunctiva or scleral icterus Neck no lymphadenopathy, supple and no JVD General: Negative for tenderness Chest Wall inspection of chest normal and palpation of chest normal Chest: Negative for tenderness Resp normal respiratory effort and clear to auscultation bilaterally Effort and Inspection: Negative for respiratory distress or pain with movement Auscultation: Negative for rhonchi, wheezes or diminished lung sounds Cardio regular rate, regular rhythm, S1 normal heart sound, S2 normal heart sound and no murmurs Peripheral Pulses: pulses 2+ throughout GI normal to inspection, nondistended, normoactive bowel sounds, soft to palpation, non-tender, non-distended and no masses Back/Spine no CVA tenderness and no thoracic nor lumbar tenderness Extremity normal to inspection General Extremety ED: Negative for edema General Extremity: Negative for edema Neuro oriented x3, CN's II-XII intact bilaterally, no sensory deficits noted and gait normal Sensorium / Orientation: awake, alert, oriented to person, oriented to place and oriented to time Motor Exam: strength 5/5 throughout and strength abnormal Psych mental status grossly normal Skin no rashes or lesions noted and no wounds MDM MDM MDM Narrative Medical decision making narrative: Patient presents with generalized weakness. She has had a rash and oral lesions for at least 3 weeks that was diagnosed as lichen planus. Apparently she tested negative for [id number]-mouth. Seen in the emergency department recently and started on prednisone. Not able to eat or drink very well. Today felt lightheaded and dizzy had a near syncopal episode. IV line established on arrival. EKG obtained shows sinus rhythm with rate of 74 bpm with no acute ST segment changes. CBC with differential showed pancytopenia with a white blood cell count of 1.5 with hemoglobin 9.2 and platelet count of 18,000. Absolute neutrophil count low at 0.6. Chemistries unremarkable. LFTs show slight elevation in the AST at 41 and ALT of 112 with alk phos of 116 and normal total bilirubin of 0.9. Troponin normal at 4. Urinalysis was normal. While in department she received normal saline. This point concern over pancytopenia and significant neutropenia. Will discuss with hospitalist to evaluate for admission. Will likely require evaluation by heme-onc. I spoke with Dr. Coombs who felt patient likely has methotrexate toxicity and recommended admission for leucovorin. Will discuss with hospitalist again to evaluate for admission Lab Data Attestation: I reviewed the patient's lab results. Labs: Laboratory Results - last 24 hr 05/13/24 05/13/24 07:29 08:27 WBC 1.5 L* RBC 3.02 L Hgb 9.2 L Hct 28.3 L MCV 93.7 MCH 30.5 MCHC 32.5 RDW Std Deviation 43.7 RDW Coeff of Evelio 12.9 Plt Count 18 L* MPV 12.0 Immature Gran % (Auto) 0.700 Neut % (Auto) 40.3 L Lymph % (Auto) 58.3 H [place] % (Auto) 0.7 Eos % (Auto) 0.0 Baso % (Auto) 0.0 Absolute Neuts (auto) 0.6 L Absolute Lymphs (auto) 0.88 Nucleated RBC % 0 Differential Comment COMMENT Diff Path Review May foll Platelet Estimate MKD DEC Sodium 136 Potassium 4.7 Chloride 106 Carbon Dioxide 23.0 Anion Gap 7 BUN 31 H Creatinine 1.01 Estim Creat Clear Calc 39.19 Est GFR (MDRD) Af Amer 68 Est GFR (MDRD) Non-Af 56 L BUN/Creatinine Ratio 30.7 H Glucose 111 H Calcium 9.4 Total Bilirubin 0.90 AST 41 H ALT 112 H Alkaline Phosphatase 116 Troponin I High Sens 4 Total Protein 6.2 L Albumin 2.8 L Globulin 3.4 Albumin/Globulin Ratio 0.8 L Urine Color Yellow Urine Clarity Clear Urine pH 7.0 Ur Specific [place] 1.010 Urine Protein 30 H Urine Glucose (UA) Normal Urine Ketones Negative Urine Occult Blood 50 H Urine Nitrite Negative Urine Bilirubin Negative Urine Urobilinogen 1 H Ur Leukocyte Esterase 25 H Urine RBC 0 SEEN Urine WBC 0-5 SEEN Ur Squamous Epith Cells 0-5 SEEN Urine Bacteria 0 SEEN Urine Mucus 0 SEEN EKG Initial EKG: Attestation: I personally reviewed and interpreted this EKG as follows: Comments: Sinus rhythm with rate of 74 bpm with short [facility] Discharge Plan Dx/Rx/DC Orders Clinical Impression: Weakness, Near syncope, Pancytopenia Disposition Disposition: Acute Care Hospital [facility]
[2024-05-13] MEDS: 0.9% Normal Saline (1000mL) 1,000 ML 1000 ML IV (07:26)
[2024-05-13 07:44] LABS: Absolute Lymphocyte Count 0.88 X10^3/uL (0.83-4.51); Absolute Neutrophil Count 0.6 X10^3/uL (2.0-7.7); Hematocrit 28.3 % (37-47); Hemoglobin 9.2 g/dL (12.0-15.0); Lymphocyte # 0.88 X10^3/ul (0.83-4.51); Lymphocyte % 58.3 % (19-41); Mean Corp Hgb Conc 32.5 g/dL (32-36); Mean Corpuscular Hgb 30.5 pg (27.0-32.0); Mean Corpuscular Volume 93.7 fL (81-99); Monocyte# 0.01 X10^3/uL; Monocyte% 0.7 % (0-10); NRBC Flagged by Analyzer 0 % (0-5); Neutrophil # 0.61 X10^3/uL (2.7-7.7); Neutrophil % 40.3 % (47-70); POSITIVE COUNT YES; POSITIVE DIFFERENTIAL YES; POSITIVE MORPHOLOGY YES; RBC Distribution Width CV 12.9 % (11.6-14.6); RBC Distribution Width SD 43.7 fl (35.1-43.9); Red Blood Count 3.02 M/mm3 (4.2-5.4)
[2024-05-13 07:48] LABS: Platelet Count 18 K/mm3 (150-450); White Blood Count 1.5 K/mm3 (4.4-11.0)
[2024-05-13 07:49] LABS: Differential Indicated SCAN CRITERIA MET
[2024-05-13 08:09] LABS: Platelet Estimate MKD DEC (ADEQ)
[2024-05-13 08:17] LABS: ALB/GLOB Ratio 0.8 RATIO (0.9-2.4); AST(SGOT) 41 U/L (15-37); Alanine Aminotransfer ALT/SGPT 112 U/L (13-56); Albumin, Serum 2.8 g/dL (3.2-5.0); Alkaline Phosphatase 116 U/L (45-117); Anion Gap 7 (5-15); BUN 31 mg/dL (7-18); BUN/Creat Ratio 30.7 RATIO (10-20); Calcium,Total 9.4 mg/dL (8.5-10.1); Chloride 106 mmol/L (98-107); Creatinine, Serum 1.01 mg/dL (0.55-1.02); EST Glomerular Filtration Rate 56 mL/min (>60); Est Glom Filt Rate - Afr Amer 68 mL/min (>60); Estimated Creatinine Clearance 39.19 ml/min; Globulin 3.4 g/dL (2.2-4.2); Glucose 111 mg/dL (74-106); Potassium 4.7 mmol/L (3.5-5.1); Protein, Total 6.2 g/dL (6.4-8.2); Sodium Level 136 mmol/L (136-145); Troponin-I HS 4 pg/mL (3.0-54.0)
[2024-05-13] MEDS: 0.9% Normal Saline (1000mL) 1,000 ML 150 ML IV (08:26)
[2024-05-13 08:32] LABS: Bacteria 0 SEEN /hpf (None Seen); Mucous, Urine 0 SEEN /hpf (<or=2+); Red Blood Cells-Urine 0 SEEN /hpf (0-5)
[2024-05-13 08:35] LABS: Color, Urine Yellow (Yellow); Glucose, Dipstick Normal (Normal); Ketone-Dipstick Negative (Negative); Leukocyte Esterase-Dipstick 25 /ul (Negative); Nitrite-Dipstick Negative (Negative); Occult Blood-Urine 50 /ul (Negative); Protein-Dipstick 30 mg/dl (Negative); Urine Bilirubin Dipstick Negative (Negative); Urine Clarity Clear (Clear); Urine Urobilinogen 1 mg/dl (Normal)
[2024-05-13 08:45] LABS: Squamous Epithelial Cells - UA 0-5 SEEN /hpf (5-10); White Blood Cells 0-5 SEEN /hpf (0-5)
--- NOTE | 2024-05-13 10:19 | NURSING ---
MED SURG LEXY PANCYTOPENIA, GENERALIZED WEAKNESS
[2024-05-13] MEDS: fentaNYL 100 MCG/2 ML Ampul 25 MCG IV (11:31)
--- NOTE | 2024-05-13 13:34 | ONC.CONSULT ---
Assessment & Plan Assessment/Plan (1) Pancytopenia: Status: Acute Code(s): D61.818 - Other pancytopenia Plan: 78-year-old female who presents with acute pancytopenia and acute GI mucositis with painful sores in mouth, nausea, acute diarrhea. The findings are most consistent with methotrexate toxicity complicated with acute prerenal azotemia due to inadequate oral intake. Recommendation: 1. Leucovorin (active folic acid) 20 mg IV every 6 hours until mucositis and diarrhea improved then can be switched to oral and the patient can be discharged with 1 week supply and follow-up with myself. 2. Support with IV fluids until sufficient oral intake and reversal of acute prerenal azotemia. 3. Hold further doses of methotrexate until full recovery than the patient is to follow-up with her chief environmental commitment officer. Impression and plan discussed with patient Neftali Heller MD Herbarium Worker, [facility] Divisions of Medical Oncology & Hematology Department of Internal Medicine [place] [id number] This note was generated using a voice recognition system software. Although it was reviewed by the author prior to finalization, it may still contain incorrect words, spelling, and punctuation that were not noted when reviewing prior to saving. If a clinically significant typo or inaccurately typed phrase is noted, please notify the author. (2) Mucositis: Status: Acute Code(s): K12.30 - Oral mucositis (ulcerative), unspecified (3) Diarrhea: Status: Acute Code(s): R19.7 - Diarrhea, unspecified Qualifiers: Diarrhea type: unspecified type Qualified Code(s): R19.7 - Diarrhea, unspecified (4) Dysphagia: Status: Acute Code(s): R13.10 - Dysphagia, unspecified Qualifiers: Dysphagia type: esophageal phase Qualified Code(s): R13.10 - Dysphagia, unspecified (5) Acute prerenal azotemia: Status: Acute Code(s): N19 - Unspecified kidney failure HPI Consult Data Date of Service:: 05/13/24 PCP / Referring Provider: Dr. Jenaro Gallo MD Attending: Dr. Jenaro Swenson DO Chief Complaint Chief Complaint: Sore mouth, nausea, diarrhea, fatigue History of Present Illness History of Present Illness: 78-year-old female with medical history notable for osteoarthritis on weekly low-dose methotrexate who was in her usual state of health until approximately 1 week earlier when she experienced increasing sores in the mouth, nausea, acute diarrhea and increasing fatigue and near syncope. She continued to take her oral methotrexate last dose was May 12, 2024. Advanced Directives Power of Operations Advisor: Yes Living Will: Yes REPLACED BY [facility] Medical History (Updated 05/13/24 @ 13:[address] 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 Oral candidiasis Allergic reaction Stress incontinence Bladder disease High cholesterol Anemia History of diverticulitis Restless legs Back pain Non-smoker History of echocardiogram History of stress test Dysphagia Screening for intestinal cancer Shortness of breath Rheumatoid arthritis GERD (gastroesophageal reflux disease) Constipation Diverticula of colon Arthritis Anxiety Home Medications ?Medication ?Instructions ?Recorded ?Last Taken ?Type duloxetine 60 mg capsule,delayed 60 mg PO DAILY 02/12/17 05/12/24 History release aspirin 81 mg chewable tablet 81 mg PO QDAY 01/29/18 05/12/24 History gabapentin 600 mg tablet 600 mg PO QHS 04/25/18 05/12/24 History MAGIC MOUTH WASH (BMX) 180 mL 30 ml buccal Q8H PRN PRN pain #180 02/05/22 Unknown Rx suspension mL prednisone 20 mg tablet 40 mg (2 x 20 mg) PO DAILY #12 05/10/24 05/12/24 Rx TABLETS clobetasol 0.05 % topical cream 1 applic topical BID skin 05/13/24 Unknown History esomeprazole magnesium 40 mg 40 mg PO DAILY 05/13/24 05/12/24 History capsule,delayed release hyoscyamine sulfate 0.125 mg 0.125 mg PO TID PRN rectal spasms 05/13/24 05/12/24 History disintegrating tablet lisinopril 30 mg tablet 30 mg PO DAILY 05/13/24 05/12/24 History methotrexate sodium 2.5 mg tablet 12.5 mg PO QWEEK 05/13/24 05/12/24 History sucralfate 1 gram tablet (Carafate) 1 g PO TID 05/13/24 Unknown History Allergy/AdvReac Type Severity Reaction Status Date / Time erythromycin base Allergy Rash Verified 05/13/24 07:01 fluconazole Allergy Rash Verified 05/13/24 07:01 ibuprofen (From Motrin) Allergy Rash Verified 05/13/24 07:01 pitavastatin (From Livalo) Allergy Rash Verified 05/13/24 07:01 pravastatin (From Pravachol) Allergy Rash Verified 05/13/24 07:01 dicyclomine HCl (From Bentyl) AdvReac Nausea Verified 05/13/24 07:01 Sulfa (Sulfonamide AdvReac Nausea Verified 05/13/24 07:01 Antibiotics) Family History Mother CVA (cerebral vascular accident) Sister Diabetes Heart disease Brother Heart disease Daughter Breast cancer Surgical History History of lithotripsy History of esophagogastroduodenoscopy (EGD) (~2014) History of colonoscopy (~03/2017) History of colectomy (~03/2017) History of appendectomy History of hysterectomy History of laparoscopic cholecystectomy Social History Smoking Status: Never smoker alcohol intake: never substance use type: does not use caffeine: Yes what type of physical activity do you participate in: none seatbelt use: always do you feel safe at home: Yes additional social history: [place]- Both are retired ROS Constitutional Constitutional: Reports fatigue; Denies fever(s) or poor appetite ENT HEENT: Reports dysphagia, sore throat and other Details: Painful sores in mouth Cardiovascular Cardiovascular: Denies chest pain or dyspnea Respiratory/Chest Respiratory/Chest: Denies cough Gastrointestinal Gastrointestinal: Reports abdominal pain, change in bowel habits, diarrhea, dysphagia and nausea; Denies hematochezia or melena Genitourinary Genitourinary: Denies dysuria Musculoskeletal Musculoskeletal: Reports other Details: Has osteoarthritis Integumentary Integumentary: Denies new lesions Neurologic Neurologic: Denies abnormal speech or focal weakness Hematologic/Lymphatic Hematologic/Lymphatic: Denies easy bleeding Physical Exam Narrative Elderly and frail but in no acute distress Const alert and oriented x3 General Appearance: cooperative and comfortable HEENT HEENT Narrative: Mucositis Eyes no scleral icterus Neck no JVD General: Negative for lymphadenopathy Resp clear to auscultation bilaterally Cardio regular rate and regular rhythm GI soft to palpation and non-tender Extremity no clubbing, cyanosis or edema Extremity Narrative: Chronic joint changes consistent with OA Skin no rashes or lesions noted Neuro CN's II-XII intact bilaterally, moves all extremities and no focal motor deficits Psych mental status grossly normal Vital Signs Temperature 98.2 F 05/13/24 12:05 Temperature Source Oral 05/13/24 12:05 Pulse Rate 79 05/13/24 12:05 Respiratory Rate 18 05/13/24 12:05 Respiratory Effort Normal 05/13/24 07:00 Respiratory Pattern Normal 05/13/24 07:00 Blood Pressure 115/50 L 05/13/24 12:05 Blood Pressure Mean 71 05/13/24 12:05 Blood Pressure Source Monitor 05/13/24 12:05 Blood Pressure Position Semi-Fowlers 05/13/24 12:05 Blood Pressure Location Left Arm 05/13/24 12:05 Pulse Ox 99 05/13/24 12:05 Oxygen Delivery Method Room Air 05/13/24 12:05 Laboratory Results - last 24 hr 05/13/24 07:29: WBC 1.5 L*, RBC 3.02 L, Hgb 9.2 L, Hct 28.3 L, MCV 93.7, MCH 30.5, MCHC 32.5, RDW Std Deviation 43.7, RDW Coeff of Evelio 12.9, Plt Count 18 L*, MPV 12.0, Immature Gran % (Auto) 0.700, Neut % (Auto) 40.3 L, Lymph % (Auto) 58.3 H, [place] % (Auto) 0.7, Eos % (Auto) 0.0, Baso % (Auto) 0.0, Absolute Neuts (auto) 0.6 L, Absolute Lymphs (auto) 0.88, Nucleated RBC % 0, Differential Comment COMMENT, Diff Path Review May foll, Platelet Estimate MKD DEC, Sodium 136, Potassium 4.7, Chloride 106, Carbon Dioxide 23.0, Anion Gap 7, BUN 31 H, Creatinine 1.01, Estim Creat Clear Calc 39.19, Est GFR (MDRD) Af Amer 68, Est GFR (MDRD) Non-Af 56 L, BUN/Creatinine Ratio 30.7 H, Glucose 111 H, Calcium 9.4, Total Bilirubin 0.90, AST 41 H, ALT 112 H, Alkaline Phosphatase 116, Troponin I High Sens 4, Total Protein 6.2 L, Albumin 2.8 L, Globulin 3.4, Albumin/Globulin Ratio 0.8 L 05/13/24 08:27: Urine Color Yellow, Urine Clarity Clear, Urine pH 7.0, Ur Specific [place] 1.010, Urine Protein 30 H, Urine Glucose (UA) Normal, Urine Ketones Negative, Urine Occult Blood 50 H, Urine Nitrite Negative, Urine Bilirubin Negative, Urine Urobilinogen 1 H, Ur Leukocyte Esterase 25 H, Urine RBC 0 SEEN, Urine WBC 0-5 SEEN, Ur Squamous Epith Cells 0-5 SEEN, Urine Bacteria 0 SEEN, Urine Mucus 0 SEEN Laboratory Results 05/13/24 05/12/24 02/28/24 07:29 15:10 09:51 WBC 1.5 L* 2.2 L 4.9 Hgb 9.2 L 11.1 L 12.5 Plt Count 18 L* 29 L* 336 Absolute Neuts (auto) 0.6 L 1.8 L 2.9 BUN 31 H 25 H 15
[2024-05-13] MEDS: LEUCOVORIN IV ×2 (13:45→18:12)
[2024-05-13] MEDS: WATER IV ×2 (13:45→18:12)
[2024-05-13] MEDS: DEXTROSE 5% IV ×3 (13:45→18:12)
--- NOTE | 2024-05-13 15:52 | HP.PCM.HOS_ITS ---
HPI - General General Date of Admission: 05/13/24 Date of Service: 05/13/24 Chief Complaint: Sore mouth. Fatigue HPI Narrative JENS KUO, is a 78 F who presents with a week history of sore mouth, rash on legs and weakness. Few weeks ago, patient was restarted back on methotrexate for lichen planus. She arranged this through her information assurance manager not for her history of osteoarthritis but because of the lichen planus at her audio/visual manager recommendations. Since then she has progressively gotten weaker. She presented to the emergency room and was noted to be pancytopenic. Dr. Heller was contacted and was concerned about methotrexate toxicity. He recommended admission and to initiate treatment. 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 Oral candidiasis Allergic reaction Stress incontinence Bladder disease High cholesterol Anemia History of diverticulitis Restless legs Back pain Non-smoker History of echocardiogram History of stress test Dysphagia Screening for intestinal cancer Shortness of breath Rheumatoid arthritis GERD (gastroesophageal reflux disease) Constipation Diverticula of colon Arthritis Anxiety Home Medications ?Medication ?Instructions ?Recorded ?Last Taken ?Type duloxetine 60 mg capsule,delayed 60 mg PO DAILY 02/12/17 05/12/24 History release aspirin 81 mg chewable tablet 81 mg PO QDAY 01/29/18 05/12/24 History gabapentin 600 mg tablet 600 mg PO QHS 04/25/18 05/12/24 History MAGIC MOUTH WASH (BMX) 180 mL 30 ml buccal Q8H PRN PRN pain #180 02/05/22 Unknown Rx suspension mL prednisone 20 mg tablet 40 mg (2 x 20 mg) PO DAILY #12 05/10/24 05/12/24 Rx TABLETS clobetasol 0.05 % topical cream 1 applic topical BID skin 05/13/24 Unknown History esomeprazole magnesium 40 mg 40 mg PO DAILY 05/13/24 05/12/24 History capsule,delayed release hyoscyamine sulfate 0.125 mg 0.125 mg PO TID PRN rectal spasms 05/13/24 05/12/24 History disintegrating tablet lisinopril 30 mg tablet 30 mg PO DAILY 05/13/24 05/12/24 History methotrexate sodium 2.5 mg tablet 12.5 mg PO QWEEK 05/13/24 05/12/24 History sucralfate 1 gram tablet (Carafate) 1 g PO TID 05/13/24 Unknown History Allergy/AdvReac Type Severity Reaction Status Date / Time erythromycin base Allergy Rash Verified 05/13/24 07:01 fluconazole Allergy Rash Verified 05/13/24 07:01 ibuprofen (From Motrin) Allergy Rash Verified 05/13/24 07:01 pitavastatin (From Livalo) Allergy Rash Verified 05/13/24 07:01 pravastatin (From Pravachol) Allergy Rash Verified 05/13/24 07:01 dicyclomine HCl (From Bentyl) AdvReac Nausea Verified 05/13/24 07:01 Sulfa (Sulfonamide AdvReac Nausea Verified 05/13/24 07:01 Antibiotics) Family History Mother CVA (cerebral vascular accident) Sister Diabetes Heart disease Brother Heart disease Daughter Breast cancer Surgical History History of lithotripsy History of esophagogastroduodenoscopy (EGD) (~2014) History of colonoscopy (~03/2017) History of colectomy (~03/2017) History of appendectomy History of hysterectomy History of laparoscopic cholecystectomy Social History Smoking Status: Never smoker alcohol intake: never substance use type: does not use caffeine: Yes what type of physical activity do you participate in: none seatbelt use: always do you feel safe at home: Yes additional social history: Cholo- Both are retired ROS ROS Narrative All review of systems were negative except as mentioned above in the history of present illness and the other review of systems. Vital Signs Vital Signs Vital Signs: 05/13/24 07:00 05/13/24 07:01 05/13/24 07:05 Temperature 36.6 C 36.8 C Temperature Source Temporal Oral Pulse Rate 75 75 Pulse Rate [Lying] Pulse Rate [Standing (for 1 minute prior to obtaining)] Respiratory Rate 15 18 Respiratory Effort Normal Respiratory Pattern Normal Blood Pressure 124/54 H 124/54 H Blood Pressure [Lying] Blood Pressure [Sitting (for 1 minute prior to obtaining)] Blood Pressure [Standing (for 1 minute prior to obtaining)] Blood Pressure Mean 77 77 Blood Pressure Mean [Lying] Blood Pressure Mean [Sitting (for 1 minute prior to obtaining)] Blood Pressure Mean [Standing (for 1 minute prior to obtaining)] Blood Pressure Source Blood Pressure Position Blood Pressure Location Pulse Ox 99 99 Oxygen Delivery Method Room Air Room Air 05/13/24 07:17 05/13/24 09:00 05/13/24 09:00 Temperature 36.8 C Temperature Source Oral Pulse Rate 76 78 Pulse Rate [Lying] 80 Pulse Rate [Standing (for 1 minute prior to obtaining)] 91 Respiratory Rate 16 16 Respiratory Effort Respiratory Pattern Blood Pressure 108/47 L 121/46 H Blood Pressure [Lying] 115/49 L Blood Pressure [Sitting (for 1 minute prior to obtaining)] 109/61 Blood Pressure [Standing (for 1 minute prior to obtaining)] 118/50 L Blood Pressure Mean 67 71 Blood Pressure Mean [Lying] 71 Blood Pressure Mean [Sitting (for 1 minute prior to obtaining)] 77 Blood Pressure Mean [Standing (for 1 minute prior to obtaining)] 72 Blood Pressure Source Blood Pressure Position Blood Pressure Location Pulse Ox 99 98 Oxygen Delivery Method Room Air Room Air 05/13/24 10:02 05/13/24 10:33 05/13/24 11:00 Temperature 36.8 C 36.8 C 36.8 C Temperature Source Oral Oral Pulse Rate 76 75 76 Pulse Rate [Lying] Pulse Rate [Standing (for 1 minute prior to obtaining)] Respiratory Rate 18 14 16 Respiratory Effort Respiratory Pattern Blood Pressure 112/44 L 113/46 L 111/43 L Blood Pressure [Lying] Blood Pressure [Sitting (for 1 minute prior to obtaining)] Blood Pressure [Standing (for 1 minute prior to obtaining)] Blood Pressure Mean 66 68 65 Blood Pressure Mean [Lying] Blood Pressure Mean [Sitting (for 1 minute prior to obtaining)] Blood Pressure Mean [Standing (for 1 minute prior to obtaining)] Blood Pressure Source Blood Pressure Position Blood Pressure Location Pulse Ox 96 96 96 Oxygen Delivery Method Room Air Room Air 05/13/24 11:00 05/13/24 12:05 05/13/24 15:00 Temperature 36.8 C 36.4 C L Temperature Source Oral Oral Pulse Rate 76 79 78 Pulse Rate [Lying] Pulse Rate [Standing (for 1 minute prior to obtaining)] Respiratory Rate 16 18 18 Respiratory Effort Respiratory Pattern Blood Pressure 111/43 L 115/50 L 141/51 H Blood Pressure [Lying] Blood Pressure [Sitting (for 1 minute prior to obtaining)] Blood Pressure [Standing (for 1 minute prior to obtaining)] Blood Pressure Mean 65 71 81 Blood Pressure Mean [Lying] Blood Pressure Mean [Sitting (for 1 minute prior to obtaining)] Blood Pressure Mean [Standing (for 1 minute prior to obtaining)] Blood Pressure Source Monitor Monitor Blood Pressure Position Semi-Fowlers Semi-Fowlers Blood Pressure Location Left Arm Left Arm Pulse Ox 99 99 99 Oxygen Delivery Method Room Air Room Air Room Air Weight Weight: 63.3 kg Body Mass Index (BMI) 25.9 Physical Exam Const alert and no apparent distress HEENT HEENT Narrative: Lesion on soft palate just posterior to her dentures that does have some evidence of some nonactive bleeding. Eyes Eyes Narrative: No icterus Neck no lymphadenopathy Neck Narrative: No thyromegaly Resp normal respiratory effort, no retractions, no use of accessory muscles and clear to auscultation bilaterally Cardio regular rate, regular rhythm, S1 normal heart sound and S2 normal heart sound GI normal to inspection, nondistended, normoactive bowel sounds, soft to palpation, non-tender and non-distended Extremity normal to inspection and full ROM Neuro Sensorium / Orientation: awake and alert Psych affect normal Results Lab / Micro Data 05/13/24 07:29 05/13/24 07:29 Labs: Laboratory Results - last 24 hr 05/13/24 07:29: WBC 1.5 L*, RBC 3.02 L, Hgb 9.2 L, Hct 28.3 L, MCV 93.7, MCH 30.5, MCHC 32.5, RDW Std Deviation 43.7, RDW Coeff of Evelio 12.9, Plt Count 18 L*, MPV 12.0, Immature Gran % (Auto) 0.700, Neut % (Auto) 40.3 L, Lymph % (Auto) 58.3 H, [place] % (Auto) 0.7, Eos % (Auto) 0.0, Baso % (Auto) 0.0, Absolute Neuts (auto) 0.6 L, Absolute Lymphs (auto) 0.88, Nucleated RBC % 0, Differential Comment COMMENT, Diff Path Review May foll, Platelet Estimate MKD DEC, Sodium 136, Potassium 4.7, Chloride 106, Carbon Dioxide 23.0, Anion Gap 7, BUN 31 H, Creatinine 1.01, Estim Creat Clear Calc 39.19, Est GFR (MDRD) Af Amer 68, Est GFR (MDRD) Non-Af 56 L, BUN/Creatinine Ratio 30.7 H, Glucose 111 H, Calcium 9.4, Total Bilirubin 0.90, AST 41 H, ALT 112 H, Alkaline Phosphatase 116, Troponin I High Sens 4, Total Protein 6.2 L, Albumin 2.8 L, Globulin 3.4, Albumin/Globulin Ratio 0.8 L 05/13/24 08:27: Urine Color Yellow, Urine Clarity Clear, Urine pH 7.0, Ur Specific [place] 1.010, Urine Protein 30 H, Urine Glucose (UA) Normal, Urine Ketones Negative, Urine Occult Blood 50 H, Urine Nitrite Negative, Urine Bilirubin Negative, Urine Urobilinogen 1 H, Ur Leukocyte Esterase 25 H, Urine RBC 0 SEEN, Urine WBC 0-5 SEEN, Ur Squamous Epith Cells 0-5 SEEN, Urine Bacteria 0 SEEN, Urine Mucus 0 SEEN Assessment & Plan Assessment/Plan (1) Pancytopenia: PLAN: Seen by hematology who is concerned that this could be methotrexate toxicity. Methotrexate will be held. Patient has been started on leucovorin. Recommendations per hematology is leucovorin 20 mg IV every 6 hours until mucositis and diarrhea improved and then switched over to oral to be discharged with 1 week supply. (2) Mucositis: PLAN: Secondary to methotrexate toxicity. Supportive management. IV fluids until can eat properly. I have advised removing her dentures until that can be further resolved. PLAN: Plan Chronic conditions * Lichen planus: Continue with dermatology follow-up. Holding off on methotrexate for the time being. * Osteoarthritis: Patient denies history of rheumatoid arthritis but states that she had been in the past, on methotrexate. Follow-up with rheumatology VTE prophylaxis: Not indicated as patient is pancytopenic and at risk for bleeding and bruising with chemo and mechanical prophylaxis, respectively. CODE STATUS: Addressed with the patient. Patient wishes to be full code. Charges/Coding Visit Charges Inpatient E&M: 67341 Init Hosp L3
[2024-05-13] MEDS: Acetaminophen 325 MG Tablet 650 MG PO (17:03)
[2024-05-13] MEDS: BMX LIQUID 180 ML 30 ML PO (17:05)
[2024-05-13] MEDS: 0.9% Normal Saline (1000mL) 1,000 ML 75 ML IV (17:08)
[2024-05-13] MEDS: Gabapentin 600 MG Tablet PO (22:16)
[2024-05-14] VITALS (8 sets, daily range): BP systolic 116–154; BP diastolic 40–55; PULSE 93–115; RESP 15–18; TEMP 36.8–37.9; O2SAT 92–99
[2024-05-14] MEDS: WATER IV ×4 (00:11→19:16)
[2024-05-14] MEDS: LEUCOVORIN IV ×4 (00:11→19:16)
[2024-05-14] MEDS: DEXTROSE 5% IV ×4 (00:11→19:16)
[2024-05-14] MEDS: Pantoprazole Sodium 40 MG Tablet PO ×2 (00:44→09:20)
[2024-05-14] MEDS: 0.9% Saline Lock 10 ML Syringe IV ×2 (00:44→15:25)
[2024-05-14] MEDS: BMX LIQUID 180 ML 30 ML PO ×2 (05:29→16:47)
[2024-05-14] MEDS: Acetaminophen 325 MG Tablet 650 MG PO (05:31)
[2024-05-14] MEDS: 0.9% Normal Saline (1000mL) 1,000 ML 75 ML IV ×2 (06:16→22:00)
[2024-05-14 06:59] LABS: Hemoglobin 7.7 g/dL (12.0-15.0); Mean Corp Hgb Conc 32.1 g/dL (32-36); Mean Corpuscular Hgb 30.9 pg (27.0-32.0); Mean Corpuscular Volume 96.4 fL (81-99); Mean Platelet Vol. 10.9 fl (6.2-12.0); POSITIVE COUNT YES; POSITIVE DIFFERENTIAL YES; POSITIVE MORPHOLOGY YES; RBC Distribution Width CV 12.8 % (11.6-14.6); RBC Distribution Width SD 43.9 fl (35.1-43.9); Red Blood Count 2.49 M/mm3 (4.2-5.4)
[2024-05-14 07:24] LABS: Differential Indicated MANUAL DIFF; Platelet Count 6 K/mm3 (150-450); White Blood Count 0.5 K/mm3 (4.4-11.0)
[2024-05-14 08:20] LABS: ALB/GLOB Ratio 0.8 RATIO (0.9-2.4); AST(SGOT) 35 U/L (15-37); Alanine Aminotransfer ALT/SGPT 89 U/L (13-56); Albumin, Serum 2.4 g/dL (3.2-5.0); Alkaline Phosphatase 116 U/L (45-117); Anion Gap 6 (5-15); BUN 20 mg/dL (7-18); BUN/Creat Ratio 22.5 RATIO (10-20); Calcium,Total 8.8 mg/dL (8.5-10.1); Chloride 106 mmol/L (98-107); Creatinine, Serum 0.89 mg/dL (0.55-1.02); EST Glomerular Filtration Rate 65 mL/min (>60); Est Glom Filt Rate - Afr Amer 78 mL/min (>60); Estimated Creatinine Clearance 42.98 ml/min; Glucose 123 mg/dL (74-106); Potassium 4.1 mmol/L (3.5-5.1); Protein, Total 5.4 g/dL (6.4-8.2); Sodium Level 135 mmol/L (136-145)
--- NOTE | 2024-05-14 08:39 | PN.HOSP_ITS ---
Reason for Visit Reason for Visit: Diagnoses Other pancytopenia (05/13/24) Oral mucositis (ulcerative), unspecified (05/13/24) Unspecified kidney failure (05/13/24) Dysphagia, unspecified (05/13/24) Diarrhea, unspecified (05/13/24) Subjective Subjective had low-grade temp overnight. still with some epistaxis. Objective Data Objective Data Vital Signs: Vital Signs Temp Pulse Resp BP Pulse Ox O2 Del Method 37.9 C H 99 18 137/55 H 98 Room Air 05/14/24 05:27 05/14/24 05:27 05/14/24 05:27 05/14/24 05:27 05/14/24 05:27 05/14/24 05:27 Oxygen Delivery Method Room Air Weight: 63.3 kg Body Mass Index (BMI) 25.9 Intake & Output: Intake and Output for Last 24 Hours 05/12/24 05/13/24 05/14/24 23:59 23:59 23:59 Intake Total 2492.75 / 2732.75 1186.50 / 1186.50 Balance 2492.75 / 2732.75 1186.50 / 1186.50 Lab / Micro Data 05/14/24 06:26 05/14/24 06:26 Labs: Laboratory Results - last 24 hr 05/13/24 08:27: Urine Color Yellow, Urine Clarity Clear, Urine pH 7.0, Ur Specific [place] 1.010, Urine Protein 30 H, Urine Glucose (UA) Normal, Urine Ketones Negative, Urine Occult Blood 50 H, Urine Nitrite Negative, Urine Bilirubin Negative, Urine Urobilinogen 1 H, Ur Leukocyte Esterase 25 H, Urine RBC 0 SEEN, Urine WBC 0-5 SEEN, Ur Squamous Epith Cells 0-5 SEEN, Urine Bacteria 0 SEEN, Urine Mucus 0 SEEN 05/14/24 06:26: WBC 0.5 L*, RBC 2.49 L, Hgb 7.7 L, Hct 24.0 L, MCV 96.4, MCH 30.9, MCHC 32.1, RDW Std Deviation 43.9, RDW Coeff of Evelio 12.8, Plt Count 6 L*, MPV 10.9, Neut % (Auto) Not Reportable, Sodium 135 L, Potassium 4.1, Chloride 106, Carbon Dioxide 23.0, Anion Gap 6, BUN 20 H, Creatinine 0.89, Estim Creat Clear Calc 42.98, Est GFR (MDRD) Af Amer 78, Est GFR (MDRD) Non-Af 65, B UN/Creatinine Ratio 22.5 H, Glucose 123 H, Calcium 8.8, Total Bilirubin 1.40 H, AST 35, ALT 89 H, Alkaline Phosphatase 116, Total Protein 5.4 L, Albumin 2.4 L, Globulin 3.0, Albumin/Globulin Ratio 0.8 L Micro: Microbiology 05/13/24 22:30 Stool Stool Occult Blood (NIYAH) - Final Occult Blood Positive Physical Exam Const alert and no apparent distress HEENT head/scalp atraumatic and moist oral mucous membranes HEENT Narrative: sore on soft palate Resp normal respiratory effort, no retractions, no use of accessory muscles and clear to auscultation bilaterally Cardio regular rate, regular rhythm, S1 normal heart sound and S2 normal heart sound Assessment & Plan Assessment/Plan (1) Pancytopenia: PLAN: Seen by hematology who is concerned that this could be methotrexate toxicity. Methotrexate will be held. Patient has been started on leucovorin. Recommendations per hematology is leucovorin 20 mg IV every 6 hours until mucositis and diarrhea improved and then switched over to oral to be discharged with 1 week supply. Worse today. Continue to monitor. No need for PRBC transfusion (transfuse if less than 7). However, will transfuse platelets as 6000 today. (2) Mucositis: PLAN: Secondary to methotrexate toxicity. Supportive management. IV fluids until can eat properly. I have advised removing her dentures until that can be further resolved. (3) Pneumonia: PLAN: Patient with low-grade temperature. Chest x-ray performed that shows a questionable left lower lobe infiltrate (final read pending) will start the patient on levofloxacin Check urinary antigens for strep and Legionella, check sputum culture. PLAN: Plan Chronic conditions * Lichen planus: Continue with dermatology follow-up. Holding off on methotrexate for the time being. * Osteoarthritis: Patient denies history of rheumatoid arthritis but states that she had been in the past, on methotrexate. Follow-up with rheumatology VTE prophylaxis: Not indicated as patient is pancytopenic and at risk for bleeding and bruising with chemo and mechanical prophylaxis, respectively. CODE STATUS: Addressed with the patient. Patient wishes to be full code. Charges/Coding Visit Charges Inpatient E&M: 17114 Subs Hosp L3
[2024-05-14 09:18] LABS: Lymphocyte 86 % (19-41); Neutrophil-Segmented 14 % (47-70); Total Cells Counted 50 (MANUAL DIFF)
[2024-05-14 09:19] LABS: Platelet Estimate MKD DEC (ADEQ); Red Cell Morphology NORM C+C NORMAL (NORM C&C)
[2024-05-14 09:20] LABS: Absolute Lymphocyte Count 0.43 X10^3/uL (0.83-4.51); Absolute Neutrophil Count 0.1 X10^3/uL (2.0-7.7)
[2024-05-14] MEDS: Menthol/Lanolin/Calamine/Znox 113 GM Tube 1 APPLIC TOPICAL ×2 (09:20→23:30)
[2024-05-14 10:28] LABS: Pathologist Review Reviewed
--- NOTE | 2024-05-14 13:40 | CASEMGMT ---
RN CM SAP BW CONSULTANT CM?to room to meet with patient for initial transition planning/care coordination assessment. RN CM?introduced self and role at [facility]. Pt voices understanding and consents to assessment?at this time. Pt resting in bed in no distress at this time. Pt is A/O at this time and answers all questions appropriately. Care providers, pharmacy, and demographics verified/updated at this time. Strata:?3 PCP: Dr Saleh Specialists: Dr Heller-boom operator, Dr Gill-RA, Dr Prater-dermatology @ [facility], Dr Daigle-ENT Preferred Pharmacy: [facility] Retail Insurance: [employer] Prescription Benefit: yes LNOK: , Cholo. Daughter, Danette Living Arrangements: Lives w/ in one-story home w/basement where she does the laundry. 2-3 steps to enter home. Pt denies difficulty w/stairs. She states her could help w/the laundry, if needed. They share most other home mgnt tasks. Transportation:?Pt states drives self and states no transportation concerns at this time. DME: Denies using any DME and denies needs. HHC/SNF: No hx of either. She states she has been weak/unsteady since coming to the hospital and has just been getting up to BSC w/assist since being admitted. She is hoping she will return to her baseline by discharge. Pt denies need for HHC or OP therapy @ discharge. Made aware she can discuss this w/Dr Saleh if she changes her mind once returning home. Pt wishes to return home and states has no concerns with going home at time of discharge. CM?to follow for any discharge planning/needs. Pt voices no further concerns/needs at this time. Advised pt to ask for CM?if any further questions/concerns/needs arise. Voices understanding. PLAN: Home. CM to follow for any needs. Mary BASHIR RN, CM
--- NOTE | 2024-05-14 13:50 | RAD_ITS ---
INDICATION: fever EXAMINATION/TECHNIQUE: X-RAY - XR Chest 2 Views COMPARISON: No previous relevant examinations available for comparison.. FINDINGS: LIFE-SUPPORT AND LINES: 1. None HEART AND VESSELS: The cardiac silhouette, pulmonary vasculature have normal appearance. No evidence of congestive failure. LUNGS AND PLEURAL SPACES: There is patchy of atelectasis versus interstitial infiltrate LEFT base. Remaining lung zones are clear. No pulmonary mass is noted. MEDIASTINUM AND HILAR REGIONS: No masses adenopathy noted. No areas of calcification. Visualized upper airway is normal in position. BONY ELEMENTS: No acute bony changes noted. RAD/Chest PA and Lateral IMPRESSION: 1. LEFT basilar atelectasis versus interstitial infiltrate. 2. Remaining lung zones are clear. 3. No consolidation, congestive failure, or effusion. Electronically Signed: aCrson Martin MD at 17:21 EDT ,
--- NOTE | 2024-05-14 16:12 | CASEMGMT ---
Social Work SW met with pt to discuss advance directives.? Pt confirms she has completed a living will and health care POA naming her Cholo Brown. Pt notified that documents are not on file at [facility] and SW requested they be brought in for scanning into the EMR.? OSWALDO Mukherjee
[2024-05-14] MEDS: levoFLOXacin IV 500 MG/100 ML BAG 100 MG IV (16:31)
[2024-05-15] VITALS (13 sets, daily range): BP systolic 116–146; BP diastolic 42–65; PULSE 83–109; RESP 15–18; TEMP 36.1–37.1; O2SAT 94–99
[2024-05-15] MEDS: Morphine 2 MG/ML Syringe IV (02:26)
[2024-05-15] MEDS: Oxymetazoline 0.05% 1 SPRAY SPRAY.BTL 2 SPRAY NASAL ×3 (02:28→20:41)
[2024-05-15] MEDS: LEUCOVORIN IV ×4 (02:31→18:17)
[2024-05-15] MEDS: DEXTROSE 5% IV ×4 (02:31→18:17)
[2024-05-15] MEDS: WATER IV ×4 (02:31→18:17)
[2024-05-15 07:24] LABS: Absolute Lymphocyte Count 0.36 X10^3/uL (0.83-4.51); Absolute Neutrophil Count 0.1 X10^3/uL (2.0-7.7); Eosinophil# 0.03 X10^3/uL; Eosinophils% 6.4 % (0-5); Hematocrit 18.4 % (37-47); Lymphocyte # 0.36 X10^3/ul (0.83-4.51); Lymphocyte % 76.6 % (19-41); Mean Corp Hgb Conc 32.1 g/dL (32-36); Mean Corpuscular Hgb 30.3 pg (27.0-32.0); Mean Corpuscular Volume 94.4 fL (81-99); Mean Platelet Vol. 9.3 fl (6.2-12.0); Monocyte# 0.01 X10^3/uL; Monocyte% 2.1 % (0-10); NRBC Flagged by Analyzer 0 % (0-5); Neutrophil # 0.06 X10^3/uL (2.7-7.7); Neutrophil % 12.8 % (47-70); POSITIVE COUNT YES; POSITIVE DIFFERENTIAL YES; POSITIVE MORPHOLOGY YES; RBC Distribution Width CV 12.8 % (11.6-14.6); Red Blood Count 1.95 M/mm3 (4.2-5.4)
[2024-05-15 07:34] LABS: White Blood Count 0.5 K/mm3 (4.4-11.0)
[2024-05-15 07:35] LABS: Differential Indicated SCAN CRITERIA MET; Hemoglobin 5.9 g/dL (12.0-15.0); Platelet Count 14 K/mm3 (150-450)
[2024-05-15 07:42] LABS: Anion Gap 6 (5-15); BUN 13 mg/dL (7-18); BUN/Creat Ratio 18.3 RATIO (10-20); Calcium,Total 8.9 mg/dL (8.5-10.1); Chloride 104 mmol/L (98-107); Creatinine, Serum 0.71 mg/dL (0.55-1.02); EST Glomerular Filtration Rate 84 mL/min (>60); Est Glom Filt Rate - Afr Amer 102 mL/min (>60); Estimated Creatinine Clearance 47.81 ml/min; Glucose 116 mg/dL (74-106); Potassium 3.7 mmol/L (3.5-5.1); Sodium Level 134 mmol/L (136-145)
--- NOTE | 2024-05-15 07:51 | PCM.PN.HOSP ---
Reason for Visit Reason for Visit: Diagnoses Other pancytopenia (05/13/24) Pneumonia, unspecified organism (05/13/24) Oral mucositis (ulcerative), unspecified (05/13/24) Unspecified kidney failure (05/13/24) Dysphagia, unspecified (05/13/24) Diarrhea, unspecified (05/13/24) Subjective Subjective Still with sore mouth. Not eating. Objective Data Objective Data Vital Signs: Vital Signs Temp Pulse Resp BP Pulse Ox O2 Del Method 36.8 C 109 H 15 133/42 H 95 Room Air 05/15/24 05:43 05/15/24 05:43 05/15/24 05:43 05/15/24 05:43 05/15/24 06:47 05/15/24 06:47 Oxygen Delivery Method Room Air Weight: 63.3 kg Body Mass Index (BMI) 25.9 Intake & Output: Intake and Output for Last 24 Hours 05/13/24 05/14/24 05/15/24 23:59 23:59 23:59 Intake Total 2492.75 / 2732.75 2690.50 / 2690.50 784.5 / 784.5 Output Total 500 / 500 Balance 2492.75 / 2732.75 2690.50 / 2690.50 284.5 / 284.5 Lab / Micro Data 05/15/24 06:23 05/15/24 06:23 Labs: Laboratory Results - last 24 hr 05/13/24 07:29: Diff Path Review Reviewed 05/14/24 06:26: Absolute Neuts (auto) 0.1 L, Absolute Lymphs (auto) 0.43 L, Total Counted 50, Neutrophils % (Manual) 14 L, Lymphocytes % (Manual) 86 H*, Diff Path Review May foll, Platelet Estimate MKD DEC, RBC Morphology NORM C+C, Sodium 135 L, Potassium 4.1, Chloride 106, Carbon Dioxide 23.0, Anion Gap 6, BUN 20 H, Creatinine 0.89, Estim Creat Clear Calc 42.98, Est GFR (MDRD) Af Amer 78, Est GFR (MDRD) Non-Af 65, BUN/Creatinine Ratio 22.5 H, Glucose 123 H, Calcium 8.8, Total Bilirubin 1.40 H, AST 35, ALT 89 H, Alkaline Phosphatase 116, Total Protein 5.4 L, Albumin 2.4 L, Globulin 3.0, Albumin/Globulin Ratio 0.8 L 05/14/24 08:58: Blood Type A POSITIVE 05/15/24 06:23: WBC 0.5 L*, RBC 1.95 L, Hgb 5.9 L*, Hct 18.4 L, MCV 94.4, MCH 30.3, MCHC 32.1, RDW Std Deviation 43.0, RDW Coeff of Evelio 12.8, Plt Count 14 L*, MPV 9.3, Immature Gran % (Auto) 2.100 H, Neut % (Auto) 12.8 L, Lymph % (Auto) 76.6 H, Cowley % (Auto) 2.1, Eos % (Auto) 6.4 H, Baso % (Auto) 0.0, Absolute Neuts (auto) 0.1 L, Absolute Lymphs (auto) 0.36 L, Nucleated RBC % 0, Sodium 134 L, Potassium 3.7, Chloride 104, Carbon Dioxide 24.0, Anion Gap 6, BUN 13, Creatinine 0.71, Estim Creat Clear Calc 47.81, Est GFR (MDRD) Af Amer 102, Est GFR (MDRD) Non-Af 84, BUN/Creatinine Ratio 18.3, Glucose 116 H, Calcium 8.9 Micro: Microbiology 05/13/24 22:30 Stool Stool Occult Blood (NIYAH) - Final Occult Blood Positive Radiography Diagnostic Testing: Radiology Impression Chest X-Ray 05/14/24 13:50 IMPRESSION: 1. LEFT basilar atelectasis versus interstitial infiltrate. 2. Remaining lung zones are clear. 3. No consolidation, congestive failure, or effusion. Electronically Signed: Carson Martin MD at 17:21 EDT , Physical Exam Const alert and no apparent distress Constitutional Narrative: listless. HEENT head/scalp atraumatic and moist oral mucous membranes Resp normal respiratory effort, no retractions, no use of accessory muscles and clear to auscultation bilaterally Cardio regular rate, regular rhythm, S1 normal heart sound and S2 normal heart sound GI normal to inspection, nondistended, normoactive bowel sounds and soft to palpation GI Narrative: slightly tender. Extremity normal to inspection, full ROM and no clubbing, cyanosis or edema Neuro Sensorium / Orientation: awake and alert Assessment & Plan Assessment/Plan (1) Pancytopenia: PLAN: Seen by hematology who is concerned that this could be methotrexate toxicity. Methotrexate will be held. Patient has been started on leucovorin. Recommendations per hematology is leucovorin 20 mg IV every 6 hours until mucositis and diarrhea improved and then switched over to oral to be discharged with 1 week supply. Platelets improved after unit of platelets, however hemoglobin is down to 5.9. Will transfuse 1 unit of packed red blood cells. Patient has positive Hemoccult. Hold off on GI evaluation at this time this can be deferred as outpatient. DW Dr. Heller who expects her bone marrow suppression to be about 7 to 10 days after her last dose. Her last dose apparently was prior to coming in. He is vaccinated to roxanna probably sometime next week and just recommends continued transfusions as necessary. States that leucovorin will help mitigate this suppression but would not occur acutely. (2) Mucositis: PLAN: Secondary to methotrexate toxicity. Supportive management. IV fluids until can eat properly. I have advised removing her dentures until that can be further resolved. Will add viscous lidocaine. Add Ensure clear to help with lack of oral intake. (3) Pneumonia: PLAN: Patient with low-grade temperature. Chest x-ray performed that shows a questionable left lower lobe infiltrate (final read pending) will start the patient on levofloxacin Urinary antigens for strep and Legionella negative, check sputum culture. PLAN: Plan Chronic conditions Lichen planus: Continue with dermatology follow-up. Holding off on methotrexate for the time being. Osteoarthritis: Patient denies history of rheumatoid arthritis but states that she had been in the past, on methotrexate. Follow-up with rheumatology VTE prophylaxis: Not indicated as patient is pancytopenic and at risk for bleeding and bruising with chemo and mechanical prophylaxis, respectively. CODE STATUS: Addressed with the patient. Patient wishes to be full code. [facility]'s care today as the patient's children were present and were upset at her care and were requesting transfer. [facility] with [facility] who I spoke with before seeing the patient this morning. I went saw the patient and she was there with 3 of her children as well as her . One of her children was sent to [facility] and was calm and listened whereas the other 2 were standing at the side and 1 being her son and another daughter. I explained to them what was going on with the patient with the bone marrow suppression and pancytopenia due to the methotrexate and the treatment with leucovorin and as needed transfusions. They state that they were very upset that the fact that the patient has not been eating prior to coming in here and that nothing is being done. The 1 daughter who is standing say that she should have a PEG tube or IV nutrition. I told her that she should not have an NG tube because of her mucositis but we can try clear diet and liquid supplements to help optimize her nutritional status. And I went through them what Dr. Heller had said, expectations and recommendations. Despite that, they insisted the patient be transferred to the [facility]. I told him that I would happily make that call but told them that if the patient is excepted it may not be for several days. The 1 daughter who is standing said that patient could go to the ER and then be admitted. I told her that I cannot transfer patient to an ER but I would need an accepting physician for the patient to go to a bed. She scoffed at that but her demeanor did not given the impression that I could discuss with her about EMTALA violations. The same daughter who was standing walked out of the room so that left her son who is 1 who is left demanding the transfer. I told him that she would need to have an excepting addition and I wanted him to tell me that he understood that and that the possibility that she may not be excepted. He nodded his head but I had to ask him explicitly to say yes or no twitch he said yes. I left the room to reach out to [facility] and spoke to the transfer law firm receptionist who stated that they are not having any beds available for the next week. I went back and talk to the son who told me [facility]. I asked him what his next option if the [facility] Were to fall through and he said he did not know. I reached out to [facility] And informed them of the patient's condition and the family's request for transfer and I am waiting to hear back whether or not the patient has been accepted. Greater than 60 minutes of which greater than 50% of time was discussing and evaluating the patient, discussing with family about the course of action, medical treatment, pancytopenia, methotrexate toxicity; reaching out to [facility] as well as [facility] For transfer. Charges/Coding Visit Charges Inpatient E&M: 49179 Subs Hosp L3
[2024-05-15] MEDS: Menthol/Lanolin/Calamine/Znox 113 GM Tube 1 APPLIC TOPICAL ×2 (08:14→20:41)
[2024-05-15 08:57] LABS: Platelet Estimate MKD DEC (ADEQ)
[2024-05-15] MEDS: levoFLOXacin IV 500 MG/100 ML BAG 100 MG IV (10:21)
[2024-05-15] MEDS: BMX LIQUID 180 ML 30 ML PO ×2 (10:21→20:45)
--- NOTE | 2024-05-15 10:57 | CASEMGMT ---
Insurance review for hospitals In-network with [employer] insurance if transfer is recommended is as follows: [facility], [facility], [place], [facility], [facility], [facility], [facility], [place], [facility] ([facility]), and . Meena Cannon, Discharge Planning Asst.
--- NOTE | 2024-05-15 11:27 | CASEMGMT ---
Social Work SW spoke with Patient Advocate who states pt's family is requesting to be seen by SW. SW met with pt's spouse, son and daughter. Active listening and support provided to pt's family. SW verbally reviewed list of in [facility] hospitals. Family requesting information in writing. SW provided written list of in [facility] hospitals. OSWALDO Mukherjee
[2024-05-15] MEDS: Lidocaine 2% Viscous15 ML UDC 5 ML PO (11:55)
[2024-05-15] MEDS: 0.9% Saline Lock 10 ML Syringe IV ×4 (13:50→20:38)
[2024-05-15] MEDS: Sodium Chloride 0.65% 1 SPRAY SPRAY.BTL 2 SPRAY NASAL ×2 (13:50→17:35)
[2024-05-15] MEDS: Morphine 2 MG/ML Syringe 1 MG IV (13:51)
[2024-05-15 13:54] LABS: Pathologist Review Reviewed
[2024-05-15 13:56] LABS: Pathologist Review Reviewed
[2024-05-15] MEDS: Acetaminophen 325 MG Tablet 650 MG PO (17:35)
[2024-05-15 18:40] LABS: Bedside Glucose 121 mg/dL (74-106)
[2024-05-15] MEDS: Gabapentin 600 MG Tablet PO (20:42)
[2024-05-15] MEDS: 0.9% Normal Saline (1000mL) 1,000 ML 75 ML IV (20:43)
[2024-05-15] MEDS: Ensure Clear 120 ML Liquid PO (20:45)
[2024-05-16] VITALS (13 sets, daily range): BP systolic 122–147; BP diastolic 55–71; PULSE 66–100; RESP 16–18; TEMP 36.5–37; O2SAT 95–100
[2024-05-16] MEDS: WATER IV ×4 (00:16→19:49)
[2024-05-16] MEDS: DEXTROSE 5% IV ×4 (00:16→19:49)
[2024-05-16] MEDS: LEUCOVORIN IV ×4 (00:16→19:49)
[2024-05-16 01:43] LABS: Mucous, Urine 0 SEEN /hpf (<or=2+); Red Blood Cells-Urine 0 SEEN /hpf (0-5); Squamous Epithelial Cells - UA 0 SEEN /hpf (5-10); White Blood Cells 0 SEEN /hpf (0-5)
[2024-05-16 01:44] LABS: Color, Urine Yellow (Yellow); Glucose, Dipstick Normal (Normal); Ketone-Dipstick 5 mg/dl (Negative); Leukocyte Esterase-Dipstick Negative /ul (Negative); Nitrite-Dipstick Negative (Negative); Occult Blood-Urine 10 /ul (Negative); Protein-Dipstick 15 mg/dl (Negative); Specific Gravity, Urine 1.015 (1.002-1.030); Urine Bilirubin Dipstick Negative (Negative); Urine Clarity Clear (Clear); Urine Urobilinogen Normal (Normal)
[2024-05-16 01:59] LABS: Bacteria 1+ /hpf (None Seen)
[2024-05-16] MEDS: Sodium Chloride 0.65% 1 SPRAY SPRAY.BTL 2 SPRAY NASAL (03:35)
[2024-05-16] MEDS: Lidocaine 2% Viscous15 ML UDC 5 ML PO (03:47)
[2024-05-16 06:57] LABS: Absolute Lymphocyte Count 0.42 X10^3/uL (0.83-4.51); Eosinophil# 0.12 X10^3/uL; Eosinophils% 19.7 % (0-5); Hematocrit 23.5 % (37-47); Hemoglobin 7.8 g/dL (12.0-15.0); Lymphocyte # 0.42 X10^3/ul (0.83-4.51); Lymphocyte % 68.9 % (19-41); Mean Corp Hgb Conc 33.2 g/dL (32-36); Mean Corpuscular Hgb 30.6 pg (27.0-32.0); Mean Corpuscular Volume 92.2 fL (81-99); Mean Platelet Vol. 9.7 fl (6.2-12.0); Monocyte# 0.04 X10^3/uL; Monocyte% 6.6 % (0-10); NRBC Flagged by Analyzer 3.3 % (0-5); Neutrophil # 0.03 X10^3/uL (2.7-7.7); Neutrophil % 4.8 % (47-70); POSITIVE COUNT YES; POSITIVE DIFFERENTIAL YES; POSITIVE MORPHOLOGY YES; RBC Distribution Width CV 13.7 % (11.6-14.6); RBC Distribution Width SD 45.9 fl (35.1-43.9); Red Blood Count 2.55 M/mm3 (4.2-5.4)
[2024-05-16 07:01] LABS: White Blood Count 0.6 K/mm3 (4.4-11.0)
[2024-05-16 07:02] LABS: Differential Indicated SCAN CRITERIA MET; Platelet Count 11 K/mm3 (150-450)
[2024-05-16 07:14] LABS: Anion Gap 8 (5-15); BUN 10 mg/dL (7-18); BUN/Creat Ratio 14.6 RATIO (10-20); Chloride 105 mmol/L (98-107); Creatinine, Serum 0.68 mg/dL (0.55-1.02); EST Glomerular Filtration Rate 88 mL/min (>60); Est Glom Filt Rate - Afr Amer 106 mL/min (>60); Estimated Creatinine Clearance 47.02 ml/min; Glucose 112 mg/dL (74-106); Potassium 3.4 mmol/L (3.5-5.1); Sodium Level 135 mmol/L (136-145)
--- NOTE | 2024-05-16 07:22 | PCM.PN.HOSP ---
Reason for Visit Reason for Visit: Diagnoses Other pancytopenia (05/13/24) Pneumonia, unspecified organism (05/13/24) Oral mucositis (ulcerative), unspecified (05/13/24) Unspecified kidney failure (05/13/24) Dysphagia, unspecified (05/13/24) Diarrhea, unspecified (05/13/24) Subjective Subjective Still with frequent epistaxis. Sore mouth, helped with lidocaine. Objective Data Objective Data Vital Signs: Vital Signs Temp Pulse Resp BP Pulse Ox O2 Del Method 36.6 C 98 18 139/55 H 100 Room Air 05/16/24 03:45 05/16/24 03:45 05/16/24 03:45 05/16/24 03:45 05/16/24 03:45 05/16/24 03:45 Oxygen Delivery Method Room Air Weight: 63.3 kg Body Mass Index (BMI) 25.9 Intake & Output: Intake and Output for Last 24 Hours 05/14/24 05/15/24 05/16/24 23:59 23:59 23:59 Intake Total 2690.50 / 2690.50 1659.0 / 1659.0 469 / 469 Output Total 500 / 500 Balance 2690.50 / 2690.50 1159.0 / 1159.0 469 / 469 Lab / Micro Data 05/16/24 05:49 05/16/24 05:49 Labs: Laboratory Results - last 24 hr 05/14/24 06:26: Diff Path Review Reviewed 05/14/24 08:58: Blood Type A POSITIVE, Antibody Screen NEGATIVE, Crossmatch See Detail 05/15/24 06:00: Urine Color Yellow, Urine Clarity Clear, Urine pH 6.0, Ur Specific Harrison 1.015, Urine Protein 15 H, Urine Glucose (UA) Normal, Urine Ketones 5 H, Urine Occult Blood 10 H, Urine Nitrite Negative, Urine Bilirubin Negative, Urine Urobilinogen Normal, Ur Leukocyte Esterase Negative, Urine RBC 0 SEEN, Urine WBC 0 SEEN, Ur Squamous Epith Cells 0 SEEN, Urine Bacteria 1+, Urine Mucus 0 SEEN 05/15/24 06:23: WBC 0.5 L*, RBC 1.95 L, Hgb 5.9 L*, Hct 18.4 L, MCV 94.4, MCH 30.3, MCHC 32.1, RDW Std Deviation 43.0, RDW Coeff of Evelio 12.8, Plt Count 14 L*, MPV 9.3, Immature Gran % (Auto) 2.100 H, Neut % (Auto) 12.8 L, Lymph % (Auto) 76.6 H, Crowley % (Auto) 2.1, Eos % (Auto) 6.4 H, Baso % (Auto) 0.0, Absolute Neuts (auto) 0.1 L, Absolute Lymphs (auto) 0.36 L, Nucleated RBC % 0, Differential Comment COMMENT, Diff Path Review Reviewed, Platelet Estimate MKD DEC, Sodium 134 L, Potassium 3.7, Chloride 104, Carbon Dioxide 24.0, Anion Gap 6, BUN 13, Creatinine 0.71, Estim Creat Clear Calc 47.81, Est GFR (MDRD) Af Amer 102, Est GFR (MDRD) Non-Af 84, BUN/Creatinine Ratio 18.3, Glucose 116 H, Calcium 8.9 05/15/24 18:22: POC Glucose 121 H 05/16/24 05:49: WBC 0.6 L*, RBC 2.55 L, Hgb 7.8 L, Hct 23.5 L, MCV 92.2, MCH 30.6, MCHC 33.2, RDW Std Deviation 45.9 H, RDW Coeff of Evelio 13.7, Plt Count 11 L*, MPV 9.7, Immature Gran % (Auto) 0.000, Neut % (Auto) 4.8 L, Lymph % (Auto) 68.9 H, Crowley % (Auto) 6.6, Eos % (Auto) 19.7 H, Baso % (Auto) 0.0, Absolute Neuts (auto) 0.0 L, Absolute Lymphs (auto) 0.42 L, Nucleated RBC % 3.3, Sodium 135 L, Potassium 3.4 L, Chloride 105, Carbon Dioxide 22.0, Anion Gap 8, BUN 10, Creatinine 0.68, Estim Creat Clear Calc 47.02, Est GFR (MDRD) Af Amer 106, Est GFR (MDRD) Non-Af 88, BUN/Creatinine Ratio 14.6, Glucose 112 H, Calcium 9.0 Micro: Microbiology 05/15/24 06:00 Urine Catheter - Catheter Legionella Antigen - Final 05/15/24 06:00 Urine Catheter - Catheter Streptococcus pneumoniae Antigen (M - Final 05/13/24 22:30 Stool Stool Occult Blood (NIYAH) - Final Occult Blood Positive Physical Exam Const alert and no apparent distress HEENT HEENT Narrative: Lesion on upper palate with adherent clot. Resp normal respiratory effort, no retractions, no use of accessory muscles and clear to auscultation bilaterally Cardio regular rate, regular rhythm, S1 normal heart sound and S2 normal heart sound GI normal to inspection, nondistended, normoactive bowel sounds, soft to palpation, non-tender and non-distended Neuro Sensorium / Orientation: awake and alert Psych affect normal Psych Narrative: Flat affect Assessment & Plan Assessment/Plan (1) Pancytopenia: PLAN: Seen by hematology who is concerned that this could be methotrexate toxicity. Methotrexate will be held. Patient has been started on leucovorin. Recommendations per hematology is leucovorin 20 mg IV every 6 hours until mucositis and diarrhea improved and then switched over to oral to be discharged with 1 week supply. Patient has positive Hemoccult. Hold off on GI evaluation at this time this can be deferred as outpatient. DW Dr. Heller on the who expects her bone marrow suppression to be about 7 to 10 days after her last dose. Her last dose apparently was prior to coming in. He is vaccinated to roxanna probably sometime next week and just recommends continued transfusions as necessary. States that leucovorin will help mitigate this suppression but would not occur acutely. Overall, patient has been transfused 1 pack of platelets and 1 packed red blood cells. With the patient's ongoing epistaxis, will transfuse another unit of platelets. Will type and cross her for 2 units but transfuse 1 at this time. (2) Mucositis: PLAN: Secondary to methotrexate toxicity. Supportive management. IV fluids until can eat properly. I have advised removing her dentures until that can be further resolved. Continue BMX and viscous lidocaine (3) Pneumonia: PLAN: Patient with low-grade temperature. Chest x-ray performed that shows a questionable left lower lobe infiltrate (final read pending) will start the patient on levofloxacin Urinary antigens for strep and Legionella negative, check sputum culture. (4) Heme positive stool: PLAN: Likely secondary to the mucositis as well as the severe thrombocytopenia. Would defer any acute GI evaluation as this should improve with the improvement of the mucositis and her thrombocytopenia. Though it may be advisable to have outpatient gastroenterology follow-up down the road. (5) Hypokalemia: PLAN: replace. monitor (6) Malnutrition: PLAN: Patient eating very little though she is able to eat some when she does take the lidocaine. Not a candidate for NG tube or Dobbhoff's given her severe mucositis. Will consult nutrition for recommendations on TPN. PLAN: Plan Chronic conditions Lichen planus: Continue with dermatology follow-up. Holding off on methotrexate for the time being. Osteoarthritis: Patient denies history of rheumatoid arthritis but states that she had been in the past, on methotrexate. Follow-up with rheumatology VTE prophylaxis: Not indicated as patient is pancytopenic and at risk for bleeding and bruising with chemo and mechanical prophylaxis, respectively. CODE STATUS: Addressed with the patient. Patient wishes to be full code. Family encounter 05/15: The [facility] was involved in patient's care today as the patient's children were present and were upset at her care and were requesting transfer. I [facility] with the [facility] who I spoke with before seeing the patient this morning. I went saw the patient and she was there with 3 of her children as well as her . One of her children was sent to [facility] and was calm and listened whereas the other 2 were standing at the side and 1 being her son and another daughter. I explained to them what was going on with the patient with the bone marrow suppression and pancytopenia due to the methotrexate and the treatment with leucovorin and as needed transfusions. They state that they were very upset that the fact that the patient has not been eating prior to coming in here and that nothing is being done. The 1 daughter who is standing say that she should have a PEG tube or IV nutrition. I told her that she should not have an NG tube because of her mucositis but we can try clear diet and liquid supplements to help optimize her nutritional status. And I went through them what Dr. Heller had said, expectations and recommendations. Despite that, they insisted the patient be transferred to the [facility]. I told him that I would happily make that call but told them that if the patient is excepted it may not be for several days. The 1 daughter who is standing said that patient could go to the ER and then be admitted. I told her that I cannot transfer patient to an ER but I would need an accepting physician for the patient to go to a bed. She scoffed at that but her demeanor did not given the impression that I could discuss with her about EMTALA violations. The same daughter who was standing walked out of the room so that left her son who is 1 who is left demanding the transfer. I told him that she would need to have an excepting addition and I wanted him to tell me that he understood that and that the possibility that she may not be excepted. He nodded his head but I had to ask him explicitly to say yes or no twitch he said yes. I left the room to reach out to [facility] and spoke to the transfer sales receptionist who stated that they are not having any beds available for the next week. I went back and talk to the son who told me [facility]. I asked him what his next option if the [facility] Were to fall through and he said he did not know. I reached out to [facility] And informed them of the patient's condition and the family's request for transfer and I am waiting to hear back whether or not the patient has been accepted. Charges/Coding Visit Charges Inpatient E&M: 83790 Subs Hosp L3
[2024-05-16] MEDS: BMX LIQUID 180 ML 30 ML PO (08:00)
[2024-05-16] MEDS: Potassium Chloride 10mEq/100mL 10 MEQ/100 ML IV.SOLN. 100 MEQ IV BOLUS ×4 (08:22→12:06)
[2024-05-16] MEDS: Menthol/Lanolin/Calamine/Znox 113 GM Tube 1 APPLIC TOPICAL ×2 (08:25→22:15)
[2024-05-16] MEDS: Oxymetazoline 0.05% 1 SPRAY SPRAY.BTL 2 SPRAY NASAL ×2 (08:46→22:14)
[2024-05-16] MEDS: Pantoprazole Sodium 40 MG Tablet PO (08:47)
[2024-05-16] MEDS: Ensure Clear 120 ML Liquid PO ×4 (08:47→22:14)
[2024-05-16 09:08] LABS: Platelet Estimate MKD DEC (ADEQ)
[2024-05-16 11:13] LABS: Triglycerides 254 mg/dL
[2024-05-16 12:11] LABS: Bedside Glucose 80 mg/dL (74-106)
[2024-05-16] MEDS: 0.9% Normal Saline (1000mL) 1,000 ML 75 ML IV (12:35)
[2024-05-16] MEDS: levoFLOXacin IV 500 MG/100 ML BAG 100 MG IV (12:35)
[2024-05-16 14:30] LABS: Pathologist Review Reviewed
[2024-05-16] MEDS: TPN - Clinimix E 8%-14% Soln 2,000 ML with Multivitamins 10 ML, Trace Elements 1 ML, Fo... 42 ML IV (15:38)
[2024-05-16] MEDS: 0.9% Saline Lock 10 ML Syringe IV (15:39)
[2024-05-16] MEDS: Hyoscyamine Sulfate 0.125 MG Tablet PO (16:11)
[2024-05-16 18:49] LABS: Bedside Glucose 116 mg/dL (74-106)
[2024-05-16] MEDS: Gabapentin 600 MG Tablet PO (22:15)
[2024-05-16] MEDS: Acetaminophen 325 MG Tablet 650 MG PO (22:17)
[2024-05-17] MEDS: DEXTROSE 5% IV ×4 (00:45→18:02)
[2024-05-17] MEDS: LEUCOVORIN IV ×4 (00:45→18:02)
[2024-05-17] MEDS: WATER IV ×4 (00:45→18:02)
[2024-05-17 00:54] VITALS: BP 131/57; PULSE 79; RESP 18; TEMP 36.4; O2SAT 95
[2024-05-17 01:21] LABS: Bedside Glucose 136 mg/dL (74-106)
[2024-05-17 05:23] VITALS: BMI 26.8
[2024-05-17 06:15] VITALS: BP 156/57; PULSE 72; RESP 16; TEMP 36.3; O2SAT 99
[2024-05-17] MEDS: 0.9% Saline Lock 10 ML Syringe IV ×2 (06:22→16:01)
[2024-05-17] MEDS: BMX LIQUID 180 ML 30 ML PO ×2 (06:39→20:39)
[2024-05-17 06:46] LABS: Bedside Glucose 121 mg/dL (74-106)
--- NOTE | 2024-05-17 07:35 | PN.HOSP_ITS ---
Reason for Visit Reason for Visit: Diagnoses Other pancytopenia (05/13/24) Unspecified protein-calorie malnutrition (05/13/24) Hypokalemia (05/13/24) Pneumonia, unspecified organism (05/13/24) Oral mucositis (ulcerative), unspecified (05/13/24) Unspecified kidney failure (05/13/24) Dysphagia, unspecified (05/13/24) Other fecal abnormalities (05/13/24) Diarrhea, unspecified (05/13/24) Subjective Subjective Able to drink water and the clear Ensure supplements. Still having bloody noses coughing up some blood but less frequent. Objective Data Objective Data Vital Signs: Vital Signs Temp Pulse Resp BP Pulse Ox O2 Del Method 36.3 C L 72 16 156/57 H 99 Room Air 05/17/24 06:15 05/17/24 06:15 05/17/24 06:15 05/17/24 06:15 05/17/24 06:15 05/17/24 06:15 Oxygen Delivery Method Room Air Weight: 65.5 kg Body Mass Index (BMI) 26.8 Intake & Output: Intake and Output for Last 24 Hours 05/15/24 05/16/24 05/17/24 23:59 23:59 23:59 Intake Total 1659.0 / 1659.0 2438.00 / 2838.00 502 / 502 Output Total 500 / 500 900 / 900 Balance 1159.0 / 1159.0 2438.00 / 1938.00 -398 / -398 Medical Nutrition Assessment Dietitian: Malnutrition Criteria Met Start: 05/16/24 10:31 Freq: Status: Active Protocol: Document 05/16/24 10:31 MARLIN (Rec: 05/16/24 10:31 MARLIN [email or web address]) Nutrition Malnutrition Evidence of Malnutrition Exists Yes Malnutrition (severe): Acute Illness/Injury Evidenced By Suboptimal Energy Intake ( Severe),Weight Loss (Severe) Intake Problem Inadequate Oral Intake Status Inactive Problem Clinical Problem Chronic Disease or Condition Related Malnutrition Etiology related to cancer tx/ painful sores in mouth and inadequate energy intake Signs/Symptoms as evidenced by po intake of < 75% and unintentional 5.1% wt loss in in past 1-2 weeks Status Active Problem Recommendation Dietitian Recommendations/Changes Continue Regular diet Soft bite sized; pureed soups per pt request, Ensure Compact w/ beneprotein and Vanilla Magic cup tid w/ meals Continue Ensure Clear 120mL 4x with medpass Will order Start TPN 8% AA/14 % Dextrose at 1 L (42 ml/hr) on day 1 and increase to 1.5 L (63 ml/hr) on day 2. Order 250 ml 20% lipids 3x/wk. TPN at 1.5L 8%AA/14% Dextrose w/ 250 ml 20% lipids every M,W,F to provide avg 1410 altagracia/ 120 gm pro/day. Check prealb and triglycerides for baseline. Lab / Micro Data 05/17/24 07:52 05/16/24 05:49 Labs: Laboratory Results - last 24 hr 05/14/24 08:58: Blood Type A POSITIVE, Antibody Screen NEGATIVE, Crossmatch See Detail 05/16/24 05:49: Differential Comment COMMENT, Diff Path Review Reviewed, Platelet Estimate MKD DEC, Triglycerides 254 H 05/16/24 11:52: POC Glucose 80 05/16/24 18:30: POC Glucose 116 H 05/17/24 00:52: POC Glucose 136 H 05/17/24 06:20: POC Glucose 121 H Micro: Microbiology 05/15/24 06:00 Urine, Catheterized Urine Culture - Preliminary Culture exhibits no growth. 05/15/24 06:00 Urine Catheter - Catheter Legionella Antigen - Final 05/15/24 06:00 Urine Catheter - Catheter Streptococcus pneumoniae Antigen (M - Final 05/13/24 22:30 Stool Stool Occult Blood (NIYAH) - Final Occult Blood Positive Physical Exam Const alert and no apparent distress HEENT head/scalp atraumatic and moist oral mucous membranes HEENT Narrative: Beefy red appearance to her gumline as well as the top of her palate. Resp normal respiratory effort, no retractions, no use of accessory muscles and clear to auscultation bilaterally Cardio regular rate, regular rhythm, S1 normal heart sound and S2 normal heart sound GI normal to inspection, nondistended, normoactive bowel sounds, soft to palpation, non-tender and non-distended Psych affect normal Assessment & Plan Assessment/Plan (1) Pancytopenia: PLAN: Seen by hematology who is concerned that this could be methotrexate toxicity. Methotrexate will be held. Patient has been started on leucovorin. Recommendations per hematology is leucovorin 20 mg IV every 6 hours until mucositis and diarrhea improved and then switched over to oral to be discharged with 1 week supply. Patient has positive Hemoccult. Hold off on GI evaluation at this time this can be deferred as outpatient. DW Dr. Heller on the who expects her bone marrow suppression to be about 7 to 10 days after her last dose. Her last dose apparently was prior to coming in. He is vaccinated to roxanna probably sometime next week and just recommends continued transfusions as necessary. States that leucovorin will help mitigate this suppression but would not occur acutely. Patient has been transfused 2 units of packed red blood cells and 3 units of platelets. Numbers are overall better. Hold off on transfusions for today (2) Mucositis: PLAN: Secondary to methotrexate toxicity. Supportive management. IV fluids until can eat properly. I have advised removing her dentures until that can be further resolved. Continue BMX and viscous lidocaine (3) Pneumonia: PLAN: Patient with low-grade temperature. Chest x-ray performed that shows a questionable left lower lobe infiltrate (final read pending) will start the patient on levofloxacin Urinary antigens for strep and Legionella negative, check sputum culture. (4) Heme positive stool: PLAN: Likely secondary to the mucositis as well as the severe thrombocytopenia. Would defer any acute GI evaluation as this should improve with the improvement of the mucositis and her thrombocytopenia. Though it may be advisable to have outpatient gastroenterology follow-up down the road. (5) Hypokalemia: PLAN: replace. monitor (6) Malnutrition: PLAN: Patient eating very little though she is able to eat some when she does take the lidocaine. Not a candidate for NG tube or Dobbhoff's given her severe mucositis. Will consult nutrition for recommendations on TPN. PLAN: Plan Chronic conditions * Lichen planus: Continue with dermatology follow-up. Holding off on methotrexate for the time being. * Osteoarthritis: Patient denies history of rheumatoid arthritis but states that she had been in the past, on methotrexate. Follow-up with rheumatology VTE prophylaxis: Not indicated as patient is pancytopenic and at risk for bleeding and bruising with chemo and mechanical prophylaxis, respectively. CODE STATUS: Addressed with the patient. Patient wishes to be full code. Family on the stated that they did not want the patient transferred. The nurse asked the patient and she said that she did not wish to be transferred. The patient will remain here. Charges/Coding Visit Charges Inpatient E&M: 57392 Subs Hosp L3
[2024-05-17 08:05] LABS: Absolute Lymphocyte Count 0.43 X10^3/uL (0.83-4.51); Absolute Neutrophil Count 0.1 X10^3/uL (2.0-7.7); Eosinophil# 0.18 X10^3/uL; Eosinophils% 19.4 % (0-5); Hematocrit 27.7 % (37-47); Hemoglobin 9.3 g/dL (12.0-15.0); Lymphocyte # 0.43 X10^3/ul (0.83-4.51); Lymphocyte % 46.2 % (19-41); Mean Corp Hgb Conc 33.6 g/dL (32-36); Mean Corpuscular Hgb 30.5 pg (27.0-32.0); Mean Corpuscular Volume 90.8 fL (81-99); Mean Platelet Vol. 10.7 fl (6.2-12.0); Monocyte# 0.23 X10^3/uL; Monocyte% 24.7 % (0-10); NRBC Flagged by Analyzer 2.2 % (0-5); Neutrophil # 0.09 X10^3/uL (2.7-7.7); Neutrophil % 9.7 % (47-70); POSITIVE COUNT YES; POSITIVE DIFFERENTIAL YES; POSITIVE MORPHOLOGY YES; Platelet Count 58 K/mm3 (150-450); RBC Distribution Width SD 47.4 fl (35.1-43.9); Red Blood Count 3.05 M/mm3 (4.2-5.4); White Blood Count 0.9 K/mm3 (4.4-11.0)
[2024-05-17 08:25] LABS: Differential Indicated SCAN CRITERIA MET
[2024-05-17] MEDS: Ensure Clear 120 ML Liquid PO (08:27)
[2024-05-17] MEDS: 0.9% Normal Saline (1000mL) 1,000 ML 75 ML IV (08:27)
[2024-05-17 08:29] VITALS: BP 146/61; PULSE 88; RESP 16; TEMP 37.4; O2SAT 98
[2024-05-17 09:56] LABS: Anisocytosis 1+; Polychromasia 1+
[2024-05-17 09:59] LABS: Spherocyte 1+
[2024-05-17] MEDS: Oxymetazoline 0.05% 1 SPRAY SPRAY.BTL 2 SPRAY NASAL ×2 (10:13→20:38)
[2024-05-17] MEDS: Menthol/Lanolin/Calamine/Znox 113 GM Tube 1 APPLIC TOPICAL ×2 (10:14→20:40)
[2024-05-17] MEDS: Pantoprazole Sodium 40 MG Tablet PO (10:44)
[2024-05-17] MEDS: levoFLOXacin IV 500 MG/100 ML BAG 100 MG IV (10:44)
[2024-05-17] MEDS: Lidocaine 2% Viscous15 ML UDC 5 ML PO ×2 (10:53→16:02)
[2024-05-17 10:55] VITALS: TEMP 37.1
[2024-05-17] MEDS: Loperamide (Oral Liquid) 1 MG/7.5 ML ML 2 MG PO (10:58)
[2024-05-17 12:56] LABS: Bedside Glucose 87 mg/dL (74-106)
[2024-05-17 14:54] VITALS: BP 135/55; PULSE 98; RESP 16; TEMP 37.4; O2SAT 97
[2024-05-17] MEDS: TPN - Clinimix E 8%-14% Soln 2,000 ML with Multivitamins 10 ML, Trace Elements 1 ML, Fo... 63 ML IV (15:59)
[2024-05-17] MEDS: Fat Emulsions 20% 250 ML IV (16:01)
[2024-05-17] MEDS: Sodium Chloride 0.65% 1 SPRAY SPRAY.BTL 2 SPRAY NASAL (18:02)
[2024-05-17 18:24] LABS: Bedside Glucose 141 mg/dL (74-106)
[2024-05-17 19:46] LABS: Triglycerides 264 mg/dL
[2024-05-17 20:15] VITALS: BP 117/53; PULSE 91; RESP 16; TEMP 36.9; O2SAT 94
[2024-05-17] MEDS: Gabapentin 600 MG Tablet PO (20:38)
[2024-05-18] MEDS: DEXTROSE 5% IV ×4 (00:44→18:03)
[2024-05-18] MEDS: WATER IV ×4 (00:44→18:03)
[2024-05-18] MEDS: LEUCOVORIN IV ×4 (00:44→18:03)
[2024-05-18] MEDS: 0.9% Normal Saline (1000mL) 1,000 ML 75 ML IV (00:44)
[2024-05-18 01:10] LABS: Bedside Glucose 115 mg/dL (74-106)
[2024-05-18 03:11] VITALS: BMI 26.9
[2024-05-18 03:44] VITALS: BP 129/46; PULSE 93; RESP 16; TEMP 37.1; O2SAT 92
[2024-05-18 06:23] LABS: Absolute Lymphocyte Count 0.67 X10^3/uL (0.83-4.51); Absolute Neutrophil Count 0.2 X10^3/uL (2.0-7.7); Eosinophil# 0.11 X10^3/uL; Eosinophils% 7.9 % (0-5); Hematocrit 25.6 % (37-47); Hemoglobin 8.6 g/dL (12.0-15.0); Lymphocyte # 0.67 X10^3/ul (0.83-4.51); Lymphocyte % 47.9 % (19-41); Mean Corp Hgb Conc 33.6 g/dL (32-36); Mean Corpuscular Hgb 30.3 pg (27.0-32.0); Mean Corpuscular Volume 90.1 fL (81-99); Mean Platelet Vol. 11.1 fl (6.2-12.0); Monocyte# 0.36 X10^3/uL; Monocyte% 25.7 % (0-10); NRBC Flagged by Analyzer 2.9 % (0-5); Neutrophil # 0.23 X10^3/uL (2.7-7.7); Neutrophil % 16.4 % (47-70); POSITIVE COUNT YES; POSITIVE DIFFERENTIAL YES; POSITIVE MORPHOLOGY YES; Platelet Count 89 K/mm3 (150-450); RBC Distribution Width SD 47.4 fl (35.1-43.9); Red Blood Count 2.84 M/mm3 (4.2-5.4)
[2024-05-18 06:30] LABS: Differential Indicated SCAN CRITERIA MET; White Blood Count 1.4 K/mm3 (4.4-11.0)
[2024-05-18 06:56] LABS: Magnesium 1.9 mg/dL (1.6-2.6); Phosphorus 2.7 mg/dL (2.5-4.9)
[2024-05-18 07:01] LABS: Bedside Glucose 124 mg/dL (74-106)
[2024-05-18 07:17] LABS: Differential Comment SCANNED; Platelet Estimate MOD DEC (ADEQ)
[2024-05-18 07:18] LABS: Platelet Morphology LARGE
--- NOTE | 2024-05-18 08:07 | PN.HOSP_ITS ---
Reason for Visit Reason for Visit: Diagnoses Other pancytopenia (05/13/24) Unspecified protein-calorie malnutrition (05/13/24) Hypokalemia (05/13/24) Pneumonia, unspecified organism (05/13/24) Oral mucositis (ulcerative), unspecified (05/13/24) Unspecified kidney failure (05/13/24) Dysphagia, unspecified (05/13/24) Other fecal abnormalities (05/13/24) Diarrhea, unspecified (05/13/24) Subjective Subjective Eating some but not much but does currently more than she was previously. Mouth is still sore. No further hemoptysis though still has having epistaxis but less frequent and less amounts. Complaining of diarrhea. Objective Data Objective Data Vital Signs: Vital Signs Temp Pulse Resp BP Pulse Ox O2 Del Method 37.1 C 93 16 129/46 H 92 Room Air 05/18/24 03:44 05/18/24 03:44 05/18/24 03:44 05/18/24 03:44 05/18/24 03:44 05/18/24 03:44 Oxygen Delivery Method Room Air Weight: 65.4 kg Body Mass Index (BMI) 26.9 Intake & Output: Intake and Output for Last 24 Hours 05/16/24 05/17/24 05/18/24 23:59 23:59 23:59 Intake Total 2438.00 / 2838.00 3365.15 / 3365.15 1703.25 / 1703.25 Output Total 900 / 900 Balance 2438.00 / 1938.00 2465.15 / 2465.15 1703.25 / 1703.25 Medical Nutrition Assessment Dietitian: Malnutrition Criteria Met Start: 05/16/24 10:31 Freq: Status: Active Protocol: Document 05/17/24 11:52 RMA (Rec: 05/17/24 11:52 RMA [id number]) Nutrition Malnutrition Evidence of Malnutrition Exists Yes Malnutrition (severe): Acute Illness/Injury Evidenced By Suboptimal Energy Intake ( Severe),Weight Loss (Severe) Intake Problem Inadequate Oral Intake Etiology related to difficulty chewing/ swallowing due to mucositis Signs/Symptoms as evidenced by need for pureed food, TPN and ONS as tolerated; PO <50% meals Status Active Problem Clinical Problem Acute Disease or Injury Related Malnutrition Etiology Severe protein-calorie malnutrition in the context of acute disease related to difficulty chewing/swallowing and inadequate oral/energy intake Signs/Symptoms as evidenced by oral intake meeting less than 50% estimated nutrition needs, need for mechanically altered food to pureed consistency, need for parenteral nutrition support and unintentional wt loss ~5% x past 1-2 weeks Status Active Problem Recommendation Dietitian Recommendations/Changes 1.) Will order TPN bag #2 Clinimix to infuse 1.5 L 8% Amino Acid/14% Dextrose @ 63mL /hour with electrolytes, MVI, trace elements and folic acid with 250mL of 20% lipids to provide 1696 kcal, 210 gm dextrose and 120 gm pro per day. Lipids every other day. 2.) Will continue liberalized Regular diet, neutropenic precautions with Pureed Food consistency as per pt request. 3.) Will add 1 scoop beneprotein Q meal to eggs and soup. 4.) Will d/c Ensure Compact w/ beneprotein and Vanilla Magic cup with meals per pt request . 5.) Will change Ensure Clear from 120mL 4x with medpass to 240mL 3 times per day w/ meals per pt request. 6.) Follow-up Q day to renew/ adjust TPN, monitor PO, weight , labs. 7.) Encouraged pt and family to call RD as needed regarding TPN, diet, nutrition status. 8.) Monitor Mag/Phos x 3 days with start of TPN; check Triglycerides 1 time per week- -labs ordered. Lab / Micro Data 05/18/24 05:26 05/16/24 05:49 Labs: Laboratory Results - last 24 hr 05/17/24 05:49: Triglycerides 264 H 05/17/24 07:52: WBC 0.9 L*, RBC 3.05 L, Hgb 9.3 L, Hct 27.7 L, MCV 90.8, MCH 30.5, MCHC 33.6, RDW Std Deviation 47.4 H, RDW Coeff of Evelio 15.0 H, Plt Count 58 L, MPV 10.7, Immature Gran % (Auto) 0.000, Neut % (Auto) 9.7 L, Lymph % (Auto) 46.2 H, [place] % (Auto) 24.7 H, Eos % (Auto) 19.4 H, Baso % (Auto) 0.0, Absolute Neuts (auto) 0.1 L, Absolute Lymphs (auto) 0.43 L, Nucleated RBC % 2.2, Diff Path Review May foll, Polychromasia 1+, Anisocytosis 1+, Spherocytes 1+ H 05/17/24 12:30: POC Glucose 87 05/17/24 17:56: POC Glucose 141 H 05/18/24 00:51: POC Glucose 115 H 05/18/24 05:26: WBC 1.4 L*, RBC 2.84 L, Hgb 8.6 L, Hct 25.6 L, MCV 90.1, MCH 30.3, MCHC 33.6, RDW Std Deviation 47.4 H, RDW Coeff of Evelio 15.0 H, Plt Count 89 L, MPV 11.1, Immature Gran % (Auto) 2.100 H, Neut % (Auto) 16.4 L, Lymph % (Auto) 47.9 H, [place] % (Auto) 25.7 H, Eos % (Auto) 7.9 H, Baso % (Auto) 0.0, A bsolute Neuts (auto) 0.2 L, Absolute Lymphs (auto) 0.67 L, Nucleated RBC % 2.9, Differential Comment SCANNED, Diff Path Review May foll, Platelet Estimate MOD DEC, Plt Morphology Comment LARGE, Phosphorus 2.7, Magnesium 1.9 05/18/24 06:43: POC Glucose 124 H Micro: Microbiology 05/14/24 15:49 Blood Culture (Wb) - No Site/Description Given Blood Culture - Preliminary No growth in 48 hours. 05/15/24 06:00 Urine, Catheterized Urine Culture - Final Culture exhibits no growth. 05/15/24 06:00 Urine Catheter - Catheter Legionella Antigen - Final 05/15/24 06:00 Urine Catheter - Catheter Streptococcus pneumoniae Antigen (M - Final 05/13/24 22:30 Stool Stool Occult Blood (NIYAH) - Final Occult Blood Positive Physical Exam Const alert and no apparent distress HEENT head/scalp atraumatic and moist oral mucous membranes Resp normal respiratory effort, no retractions, no use of accessory muscles and clear to auscultation bilaterally Cardio regular rate, regular rhythm, S1 normal heart sound and S2 normal heart sound GI normal to inspection, nondistended, normoactive bowel sounds, soft to palpation, non-tender and non-distended Extremity normal to inspection and full ROM Assessment & Plan Assessment/Plan (1) Pancytopenia: PLAN: Improving seen by hematology on admission who is concerned that this could be methotrexate toxicity. Methotrexate will be held. Patient has been started on leucovorin. Recommendations per hematology is leucovorin 20 mg IV every 6 hours until mucositis and diarrhea improved and then switched over to oral to be discharged with 1 week supply. Patient has positive Hemoccult. Hold off on GI evaluation at this time this can be deferred as outpatient. DW Dr. Heller on the who expects her bone marrow suppression to be about 7 to 10 days after her last dose. Her last dose apparently was prior to coming in. He is vaccinated to roxanna probably sometime next week and just recommends continued transfusions as necessary. States that leucovorin will help mitigate this suppression but would not occur acutely. Patient has been transfused 2 units of packed red blood cells and 3 units of platelets. Numbers are overall better. Continue to hold off on transfusions (2) Mucositis: PLAN: Secondary to methotrexate toxicity. Supportive management. IV fluids until can eat properly. I have advised removing her dentures until that can be further resolved. Continue BMX and viscous lidocaine (3) Pneumonia: PLAN: Patient with low-grade temperature. Chest x-ray performed that shows a questionable left lower lobe infiltrate (final read pending) will start the patient on levofloxacin Urinary antigens for strep and Legionella negative, check sputum culture. (4) Heme positive stool: PLAN: Likely secondary to the mucositis as well as the severe thrombocytopenia. Would defer any acute GI evaluation as this should improve with the improvement of the mucositis and her thrombocytopenia. Though it may be advisable to have outpatient gastroenterology follow-up down the road. (5) Hypokalemia: PLAN: replace. monitor (6) Malnutrition: PLAN: Patient eating very little though she is able to eat some when she does take the lidocaine. Not a candidate for NG tube or Dobbhoff's given her severe mucositis. Will consult nutrition for recommendations on TPN. Will continue with TPN for another day. PLAN: Plan Chronic conditions * Lichen planus: Continue with dermatology follow-up. Holding off on methotrexate for the time being. * Osteoarthritis: Patient denies history of rheumatoid arthritis but states that she had been in the past, on methotrexate. Follow-up with rheumatology VTE prophylaxis: Not indicated as patient is pancytopenic and at risk for bleeding and bruising with chemo and mechanical prophylaxis, respectively. CODE STATUS: Addressed with the patient. Patient wishes to be full code. Plan on observing the patient for open just 1-2 more days. Once patient is able to take oral decently, she can likely be discharged continue with leucovorin and follow-up with oncology. Charges/Coding Visit Charges Inpatient E&M: 68232 Subs Hosp L2
[2024-05-18 09:07] VITALS: BP 132/43; PULSE 90; RESP 16; TEMP 36.7; O2SAT 100
[2024-05-18] MEDS: BMX LIQUID 180 ML 30 ML PO ×2 (09:24→21:18)
[2024-05-18] MEDS: Pantoprazole Sodium 40 MG Tablet PO (09:25)
[2024-05-18] MEDS: Sodium Chloride 0.65% 1 SPRAY SPRAY.BTL 2 SPRAY NASAL (09:25)
[2024-05-18] MEDS: levoFLOXacin IV 500 MG/100 ML BAG 100 MG IV (09:35)
[2024-05-18] MEDS: Loperamide (Oral Liquid) 1 MG/7.5 ML ML 2 MG PO (09:38)
[2024-05-18] MEDS: Oxymetazoline 0.05% 1 SPRAY SPRAY.BTL 2 SPRAY NASAL ×2 (09:39→21:18)
[2024-05-18] MEDS: Menthol/Lanolin/Calamine/Znox 113 GM Tube 1 APPLIC TOPICAL ×2 (09:40→21:18)
[2024-05-18 11:48] LABS: Bedside Glucose 115 mg/dL (74-106)
[2024-05-18] MEDS: Lidocaine 2% Viscous15 ML UDC 5 ML PO (12:26)
[2024-05-18] MEDS: TPN - Clinimix E 8%-14% Soln 2,000 ML with Multivitamins 10 ML, Trace Elements 1 ML, Fo... 42 ML IV (16:07)
[2024-05-18 16:19] VITALS: BP 147/61; PULSE 88; RESP 16; TEMP 36.8; O2SAT 97
[2024-05-18] MEDS: Gabapentin 600 MG Tablet PO (21:15)
[2024-05-18 22:00] VITALS: BP 142/59; PULSE 89; RESP 16; TEMP 37.2; O2SAT 98
[2024-05-19] MEDS: WATER IV ×4 (00:30→18:49)
[2024-05-19] MEDS: LEUCOVORIN IV ×4 (00:30→18:49)
[2024-05-19] MEDS: DEXTROSE 5% IV ×4 (00:30→18:49)
[2024-05-19 00:41] LABS: Bedside Glucose 121 mg/dL (74-106)
[2024-05-19 05:16] VITALS: BP 150/74; PULSE 96; RESP 16; TEMP 37; O2SAT 96
[2024-05-19 06:00] VITALS: BMI 26.9
[2024-05-19 06:30] LABS: Bedside Glucose 112 mg/dL (74-106)
[2024-05-19 07:18] LABS: Hemoglobin 9.1 g/dL (12.0-15.0); Mean Corp Hgb Conc 33.7 g/dL (32-36); Mean Corpuscular Hgb 30.2 pg (27.0-32.0); Mean Corpuscular Volume 89.7 fL (81-99); Mean Platelet Vol. 11.9 fl (6.2-12.0); POSITIVE COUNT YES; POSITIVE DIFFERENTIAL YES; POSITIVE MORPHOLOGY YES; Platelet Count 184 K/mm3 (150-450); RBC Distribution Width SD 47.3 fl (35.1-43.9); Red Blood Count 3.01 M/mm3 (4.2-5.4); White Blood Count 2.2 K/mm3 (4.4-11.0)
[2024-05-19 07:42] LABS: Differential Indicated MANUAL DIFF
[2024-05-19 07:52] LABS: Magnesium 1.8 mg/dL (1.6-2.6)
[2024-05-19 08:36] LABS: Blast 4 % (0-0); Eosinophil 2 % (0-5); Lymphocyte 25 % (19-41); Metamyelocyte 12 % (0-1); Monocyte 5 % (0-10); Myelocyte 7 % (0-0); Neutrophil-Band 9 % (0-5); Neutrophil-Segmented 31 % (47-70); Promyelocyte 5 % (0-0); Total Cells Counted 100 (MANUAL DIFF)
[2024-05-19 08:37] LABS: Atypical Lymphocyte 1+ %; Platelet Estimate ADEQUATE (ADEQ); Red Cell Morphology NORM C+C NORMAL (NORM C&C)
[2024-05-19 08:38] LABS: Absolute Neutrophil Count 0.9 X10^3/uL (2.0-7.7)
[2024-05-19 09:13] LABS: Pathologist Review Reviewed
[2024-05-19 09:17] VITALS: BP 148/56; PULSE 91; RESP 14; TEMP 37.3; O2SAT 97
[2024-05-19 09:22] VITALS: PULSE 91; O2SAT 97
[2024-05-19 09:27] LABS: Pathologist Review Reviewed
[2024-05-19 09:30] LABS: Pathologist Review Reviewed
[2024-05-19] MEDS: Pantoprazole Sodium 40 MG Tablet PO (09:35)
[2024-05-19] MEDS: Oxymetazoline 0.05% 1 SPRAY SPRAY.BTL 2 SPRAY NASAL ×2 (09:36→21:03)
[2024-05-19] MEDS: Menthol/Lanolin/Calamine/Znox 113 GM Tube 1 APPLIC TOPICAL ×2 (09:37→21:03)
[2024-05-19] MEDS: levoFLOXacin IV 250 MG/50 ML BAG 50 MG IV (10:10)
[2024-05-19] MEDS: Loperamide (Oral Liquid) 1 MG/7.5 ML ML 2 MG PO (10:11)
[2024-05-19] MEDS: Nystatin 500,000 UNIT/5 ML PO.SYRINGE (WCH) 500000 UNIT PO ×4 (10:11→21:03)
--- NOTE | 2024-05-19 11:18 | PN_ITS ---
Subjective Subjective Patient seen and examined. She had no active complaints and said she felt much better. She denied any fever, chills, cough, chest pain, palpitations, dizziness, abdominal pain, nausea, vomiting or diarrhea. She felt her mouth ulcers were improving. She is on a clear liquid diet and has tolerated it so far. She remains on TPN. Review of ystems is otherwise negative. WBC is uup to 2.2 today and platelets are up to 184. Review of systems is otherwise negative. Objective Data Objective Data Vital Signs: Vital Signs Temp Pulse Resp BP Pulse Ox O2 Del Method 99.2 F H 91 14 148/56 H 97 Room Air 05/19/24 09:17 05/19/24 09:22 05/19/24 09:17 05/19/24 09:17 05/19/24 09:22 05/19/24 09:22 Oxygen Delivery Method Room Air Weight: 144 lb 2.917 oz Body Mass Index (BMI) 26.9 Intake & Output: Intake and Output for Last 24 Hours 05/17/24 05/18/24 05/19/24 23:59 23:59 23:59 Intake Total 3365.15 / 3365.15 3629.65 / 3629.65 204 / 204 Output Total 900 / 900 Balance 2465.15 / 2465.15 3629.65 / 3629.65 204 / 204 Medical Nutrition Assessment Dietitian: Malnutrition Criteria Met Start: 05/16/24 10:31 Freq: Status: Active Protocol: Document 05/18/24 11:12 MARLIN (Rec: 05/18/24 11:13 MARLIN [id number]) Nutrition Malnutrition Evidence of Malnutrition Exists Yes Malnutrition (severe): Acute Illness/Injury Evidenced By Suboptimal Energy Intake ( Severe),Weight Loss (Severe) Intake Problem Inadequate Oral Intake Etiology related to difficulty chewing/ swallowing due to mucositis Signs/Symptoms as evidenced by need for pureed food, TPN and ONS as tolerated; PO <50% meals Status Active Problem Clinical Problem Acute Disease or Injury Related Malnutrition Etiology Severe protein-calorie malnutrition in the context of acute disease related to difficulty chewing/swallowing and inadequate oral/energy intake Signs/Symptoms as evidenced by oral intake meeting less than 50% estimated nutrition needs, need for mechanically altered food to pureed consistency, need for parenteral nutrition support and unintentional wt loss ~5% x past 1-2 weeks Status Active Problem Recommendation Dietitian Recommendations/Changes 1.) Will order TPN bag #3 Clinimix to infuse 1 L 8% Amino Acid/14% Dextrose @ 63mL /hour with electrolytes, MVI, trace elements and folic acid to provide 798 kcal, 140 gm dextrose and 80 gm pro per day . 2.) Will continue liberalized Regular diet, neutropenic precautions with Pureed Food consistency as per pt request. 3.) Will add 1 scoop beneprotein Q meal to sweet iced tea and soup. 4.) Will add broth, gravies, sauces to meals to help pt thin out puree foods so easier to eat. 5.) Follow-up Q day to renew/ adjust TPN, monitor PO, weight , labs. 6.) Encouraged pt and family to call RD as needed regarding TPN, diet, nutrition status. 8.) Monitor Mag/Phos x 3 days with start of TPN; check Triglycerides 1 time per week- -labs ordered. Lab / Micro Data 05/19/24 07:09 05/16/24 05:49 Labs: Laboratory Results - last 24 hr 05/17/24 07:52: Diff Path Review Reviewed 05/18/24 05:26: Diff Path Review Reviewed 05/18/24 11:29: POC Glucose 115 H 05/19/24 00:24: POC Glucose 121 H 05/19/24 06:08: POC Glucose 112 H 05/19/24 07:09: WBC 2.2 L, RBC 3.01 L, Hgb 9.1 L, Hct 27.0 L, MCV 89.7, MCH 30.2, MCHC 33.7, RDW Std Deviation 47.3 H, RDW Coeff of Evelio 15.0 H, Plt Count 184, MPV 11.9, Neut % (Auto) Not Reportable, Absolute Neuts (auto) 0.9 L, A bsolute Lymphs (auto) 0.50 L, Total Counted 100, Neutrophils % (Manual) 31 L, B and Neutrophils % 9 H, Lymphocytes % (Manual) 25, Monocytes % (Manual) 5, Eosinophils % (Manual) 2, Metamyelocytes % 12 H, Myelocytes % 7 H, Promyelocytes % 5 H, Blast Cells % 4 H*, Diff Path Review Reviewed, Atypical Lymphocytes 1+, Platelet Estimate ADEQUATE, RBC Morphology NORM C+C, Phosphorus 3.0, Magnesium 1.8 Micro: Microbiology 05/14/24 15:49 Blood Culture (Wb) - No Site/Description Given Blood Culture - Preliminary No growth in 48 hours. 05/15/24 06:00 Urine, Catheterized Urine Culture - Final Culture exhibits no growth. 05/15/24 06:00 Urine Catheter - Catheter Legionella Antigen - Final 05/15/24 06:00 Urine Catheter - Catheter Streptococcus pneumoniae Antigen (M - Final 05/13/24 22:30 Stool Stool Occult Blood (NIYAH) - Final Occult Blood Positive Physical Exam Const alert, oriented x3 and no apparent distress General Appearance: cooperative HEENT normocephalic, head/scalp atraumatic, moist oral mucous membranes and oropharynx normal HEENT Narrative: has oral thrush. No visible ulceration in her mouth. Eyes PERRL and EOMs intact bilaterally Neck no lymphadenopathy, supple and no JVD Lymph Lymphatic: no lymphadenopathy noted and no lymphedema noted Resp normal respiratory effort, normal air movement and clear to auscultation bilaterally Cardio regular rate, regular rhythm, S1 normal heart sound, S2 normal heart sound and no murmurs GI normal to inspection, nondistended, normoactive bowel sounds, soft to palpation, non-tender and non-distended Extremity normal capillary refill, no clubbing, cyanosis or edema and no calf tenderness General Extremity: no tenderness to palpation of joints or extremities Skin General Skin Exam: no breakdown Neuro CN's II-XII intact bilaterally, no focal motor deficits, no sensory deficits noted and deep tendon reflexes 2+ bilaterally Motor Exam: strength 5/5 throughout and general weakness Psych thought process normal, cooperative and affect normal Appearance: appropriate Assessment & Plan Assessment/Plan (1) Mucositis: (2) Pancytopenia: PLAN: Plan #Pancytopenia * Thought to be due to methotrexate toxicity. Methotrexate currently on hold and patient on leucovorin * Improving. Platelets are trending upwards as well as hemoglobin and WBC. WBC is up to 2.2 and hemoglobin is 9.1 and platelets being 184 today. * Hematology was consulted and per Dr. Heller, constipation expected to last for about 7 to 10 days after her last dose. To transfuse as needed. Has had 2 units of packed red blood cells and 3 units of platelets of 5. * To continue on IV leucovorin 20 mg every 6 hours until mucositis and diarrhea improving and to be switched to oral mucosa on 922 home with a 1 week supply. * #Mucositis * Thought to be due to methotrexate toxicity. Methotrexate now on hold. * Mucositis seems to have improved. Patient started on nystatin swish and swallow today due to concern about candidiasis also. * Also on BMX and viscous lidocaine. * #Probable community-acquired pneumonia * Patient developed a fever in the hospital and chest x-ray showed a questionable left lower lobe infiltrate. Currently on IV levofloxacin. Urine for strep and Legionella negative. Sputum culture pending. #Positive FOBT * Thought to be due to mucositis and severe thrombocytopenia. * Hemoglobin is 8.1. * Follow-up with gastroenterology on outpatient basis for further workup as deemed necessary. * #Mild to moderate protein calorie malnutrition * Patient had apparently not eaten for about 5 days before she came in due to pain from eating due to the mucositis. * Started on TPN. Patient is not taking an oral diet. She is currently on a pur?ed diet. I am concerned that the risk of TPN such as infection and electrolyte abnormalities outweighed the benefits in this patient's because she is having oral intake. She is currently taking an oral supplement as well. * Will DC TPN. Discussed this with the dietitian. * #History of lichen planus: Methotrexate discontinued. Follow-up with dermatology on outpatient basis. #Osteoarthritis: * Patient states she has osteoarthritis and not rheumatoid arthritis though she also states that she is on the methotrexate for osteoarthritis. I informed her that likely it is rheumatoid arthritis for which she is on the methotrexate. * Follow-up with [facility] grad[facility] on outpatient basis. * DVT prophylaxis: SCDs. No anticoagulation on account of thrombocytopenia Charges/Coding Visit Charges Inpatient E&M: 33990 Subs Hosp L2
[2024-05-19 12:09] LABS: Anion Gap 10 (5-15); BUN 14 mg/dL (7-18); BUN/Creat Ratio 20.9 RATIO (10-20); Calcium,Total 9.3 mg/dL (8.5-10.1); Chloride 105 mmol/L (98-107); Creatinine, Serum 0.67 mg/dL (0.55-1.02); EST Glomerular Filtration Rate 90 mL/min (>60); Est Glom Filt Rate - Afr Amer 109 mL/min (>60); Estimated Creatinine Clearance 47.75 ml/min; Glucose 113 mg/dL (74-106); Potassium 3.4 mmol/L (3.5-5.1); Sodium Level 137 mmol/L (136-145)
[2024-05-19] MEDS: 0.9% Normal Saline (1000mL) 1,000 ML 75 ML IV (13:27)
--- NOTE | 2024-05-19 14:58 | NURSING ---
TPN d/c'd per Dr. Ybarra. Upgraded diet to soft bite sized. Will cont. to monitor.
[2024-05-19 15:00] VITALS: BP 138/65; PULSE 84; RESP 16; TEMP 37; O2SAT 96
[2024-05-19 18:18] LABS: Bedside Glucose 94 mg/dL (74-106)
[2024-05-19] MEDS: Gabapentin 600 MG Tablet PO (21:03)
[2024-05-19] MEDS: BMX LIQUID 180 ML 30 ML PO (21:08)
[2024-05-19 21:44] VITALS: BP 152/65; PULSE 88; RESP 16; TEMP 36.9; O2SAT 99
[2024-05-20] MEDS: LEUCOVORIN IV ×3 (00:22→11:42)
[2024-05-20] MEDS: WATER IV ×3 (00:22→11:42)
[2024-05-20] MEDS: DEXTROSE 5% IV ×3 (00:22→11:42)
[2024-05-20 00:38] LABS: Bedside Glucose 92 mg/dL (74-106)
[2024-05-20 03:00] VITALS: BP 135/61; PULSE 81; RESP 16; TEMP 36.6; O2SAT 94
[2024-05-20] MEDS: 0.9% Normal Saline (1000mL) 1,000 ML 75 ML IV (03:00)
[2024-05-20 03:54] VITALS: BMI 27.0
[2024-05-20 08:59] VITALS: BP 147/53; PULSE 83; RESP 16; TEMP 37.2; O2SAT 95
[2024-05-20 09:11] LABS: Hematocrit 29.4 % (37-47); Hemoglobin 9.3 g/dL (12.0-15.0); Mean Corp Hgb Conc 31.6 g/dL (32-36); Mean Corpuscular Hgb 29.3 pg (27.0-32.0); Mean Corpuscular Volume 92.7 fL (81-99); Mean Platelet Vol. 10.9 fl (6.2-12.0); POSITIVE COUNT YES; POSITIVE MORPHOLOGY YES; Platelet Count 369 K/mm3 (150-450); RBC Distribution Width CV 15.6 % (11.6-14.6); RBC Distribution Width SD 50.9 fl (35.1-43.9); Red Blood Count 3.17 M/mm3 (4.2-5.4); White Blood Count 4.4 K/mm3 (4.4-11.0)
[2024-05-20 09:15] LABS: Differential Indicated MANUAL DIFF
[2024-05-20 09:42] LABS: Phosphorus 3.2 mg/dL (2.5-4.9)
[2024-05-20] MEDS: Oxymetazoline 0.05% 1 SPRAY SPRAY.BTL 2 SPRAY NASAL (10:08)
[2024-05-20] MEDS: Pantoprazole Sodium 40 MG Tablet PO (10:08)
[2024-05-20] MEDS: Menthol/Lanolin/Calamine/Znox 113 GM Tube 1 APPLIC TOPICAL (10:09)
[2024-05-20] MEDS: Nystatin 500,000 UNIT/5 ML PO.SYRINGE (WCH) 500000 UNIT PO (10:09)
[2024-05-20] MEDS: levoFLOXacin IV 250 MG/50 ML BAG 50 MG IV (10:12)
[2024-05-20 11:25] LABS: Basophil 1 % (0-1); Blast 2 % (0-0); Eosinophil 7 % (0-5); Lymphocyte 31 % (19-41); Metamyelocyte 14 % (0-1); Monocyte 2 % (0-10); Myelocyte 5 % (0-0); Neutrophil-Band 4 % (0-5); Neutrophil-Segmented 24 % (47-70); Plasma Cell 4 %; Promyelocyte 6 % (0-0); Total Cells Counted 100 (MANUAL DIFF)
[2024-05-20 11:26] LABS: Platelet Estimate ADEQUATE (ADEQ)
[2024-05-20 11:28] LABS: Red Cell Morphology NORM C+C NORMAL (NORM C&C)
[2024-05-20 11:30] LABS: Absolute Neutrophil Count 1.2 X10^3/uL (2.0-7.7)
--- NOTE | 2024-05-20 11:38 | DCINST_ITS ---
Discharge Instructions Diet Discharge Diet: Low fat / Low cholesterol Activity Discharge Activity: Return to Normal Activity Weight Bearing Status: Weight bearing as tolerated Dressing / Incision Call your doctor if you observe: Fever of 101 or Higher, Shortness of breath, Dizziness, Swelling in the ankles and Chest pain Follow Up Care Test Results: Test results from this visit will be discussed in further detail at your follow- up appointment, if applicable. Discharge Plan Admission Admit Date/Time: 05/13/24 10:11 Primary Reason for Your Visit: pancytopenia Attending Provider: Charlotte Ybarra Primary Care Provider: Shane Saleh Consulting Providers: Braydon Vicente; Socrates Renee; Neftali Heller; Rylan Jordan; Shan Torres; Cristóbal Devi; Anjel Escobar; Camille Real NP; Jenaro Swenson Instructions Patient Instructions: Neutropenia, Thrombocytopenia Discharge Orders/Prescriptions Prescriptions: New leucovorin calcium 10 mg tablet 20 mg PO Q6H 7 Days Qty: 56 1RF levofloxacin 500 mg tablet 500 mg PO DAILY Qty: 5 0RF Continued aspirin 81 mg tablet,chewable 81 mg PO QDAY gabapentin 600 mg tablet 600 mg PO QHS duloxetine 60 MG capsule,delayed release(DR/EC) 60 mg PO DAILY Patient Comments: DEPRESSION MAGIC MOUTH WASH (BMX) 180 mL suspension 30 ml buccal Q8H PRN PRN (Reason: pain) Qty: 180 0RF Patient Comments: has not started yet Rx Instructions: diphenhydramine 12.5 mg/5 mL oral liquid 60 mL; aluminum-mag hydroxide- simethicone 400 mg-400 mg-40 mg/5 mL oral susp 60 mL; Lidocaine Viscous 2 % mucosal solution 60 mL; Per 180 mL clobetasol 0.05 % cream 1 applic topical BID Patient Comments: has not started yet esomeprazole magnesium 40 mg capsule,delayed release(DR/EC) 40 mg PO DAILY lisinopril 30 mg tablet 30 mg PO DAILY hyoscyamine sulfate 0.125 mg tablet,disintegrating 0.125 mg PO TID PRN sucralfate [Carafate] 1 gram tablet 1 g PO TID Rx Instructions: has not started yet prednisone 20 mg tablet 40 mg PO DAILY Qty: 12 0RF Discontinued methotrexate sodium 2.5 mg tablet 12.5 mg PO QWEEK Referrals / Follow Up: Shane Saleh MD [Primary Care Provider] - Within 1 Week Jenaro Gallo MD [Med Staff - Jewelry Store Manager] - Neftali Heller MD [Med Staff - Active Staff] - Within 1 Week Alcides Adams DO [Med Staff - Active Staff] - Within 2 Weeks (see to establish care for positive occult blood in stool) Disposition Disposition (needs filled in before D/C Order can be placed): Home, Self Care
--- NOTE | 2024-05-20 11:40 | PCM.DC.SUM ---
Providers Date of Admission: 05/13/24 Date of Discharge: 05/20/24 Primary Care Physician: Shane Saleh MD Consultations 05/13/24 12:00 Consult: Oncology/Hematology Routine Consulting Provider: [facility]) Reason for Consult: pancytopenia EMERGENT Consult: No MD Notified: Yes Date Notified: 05/13/24 Time Notified: 10:18 Method of Notification: ED Physician Initiated Reason For Visit: PANCYTOPENIA Diagnosis Discharge Diagnosis (1) Mucositis: Status: Acute Code(s): K12.30 - Oral mucositis (ulcerative), unspecified (2) Pancytopenia: Status: Acute Code(s): D61.818 - Other pancytopenia Plan #Pancytopenia Thought to be due to methotrexate toxicity. Methotrexate currently on hold and patient on leucovorin Improving. Platelets are trending upwards as well as hemoglobin and WBC. WBC is up to 2.2 and hemoglobin is 9.1 and platelets being 184 today. Hematology was consulted and per Dr. Heller, constipation expected to last for about 7 to 10 days after her last dose. To transfuse as needed. Has had 2 units of packed red blood cells and 3 units of platelets of 5. To continue on IV leucovorin 20 mg every 6 hours until mucositis and diarrhea improving and to be switched to oral mucosa on 922 home with a 1 week supply. #Mucositis Thought to be due to methotrexate toxicity. Methotrexate now on hold. Mucositis seems to have improved. Patient started on nystatin swish and swallow today due to concern about candidiasis also. Also on BMX and viscous lidocaine. #Probable community-acquired pneumonia Patient developed a fever in the hospital and chest x-ray showed a questionable left lower lobe infiltrate. Currently on IV levofloxacin. Urine for strep and Legionella negative. Sputum culture pending. #Positive FOBT Thought to be due to mucositis and severe thrombocytopenia. Hemoglobin is 8.1. Follow-up with gastroenterology on outpatient basis for further workup as deemed necessary. #Mild to moderate protein calorie malnutrition Patient had apparently not eaten for about 5 days before she came in due to pain from eating due to the mucositis. Started on TPN. Patient is not taking an oral diet. She is currently on a pur?ed diet. I am concerned that the risk of TPN such as infection and electrolyte abnormalities outweighed the benefits in this patient's because she is having oral intake. She is currently taking an oral supplement as well. Will DC TPN. Discussed this with the dietitian. #History of lichen planus: Methotrexate discontinued. Follow-up with dermatology on outpatient basis. #Osteoarthritis: Patient states she has osteoarthritis and not rheumatoid arthritis though she also states that she is on the methotrexate for osteoarthritis. I informed her that likely it is rheumatoid arthritis for which she is on the methotrexate. Follow-up with stores laborer on outpatient basis. DVT prophylaxis: SCDs. No anticoagulation on account of thrombocytopenia Medications at Discharge Home Medications duloxetine 60 mg capsule,delayed release 60 mg PO DAILY 02/12/17 aspirin 81 mg chewable tablet 81 mg PO QDAY 01/29/18 gabapentin 600 mg tablet 600 mg PO QHS 04/25/18 MAGIC MOUTH WASH (BMX) 180 mL suspension 30 ml buccal Q8H PRN PRN pain #180 mL 02/05/22 prednisone 20 mg tablet 40 mg (2 x 20 mg) PO DAILY #12 TABLETS 05/10/24 clobetasol 0.05 % topical cream 1 applic topical BID skin 05/13/24 esomeprazole magnesium 40 mg capsule,delayed release 40 mg PO DAILY 05/13/24 hyoscyamine sulfate 0.125 mg disintegrating tablet 0.125 mg PO TID PRN rectal spasms 05/13/24 lisinopril 30 mg tablet 30 mg PO DAILY 05/13/24 sucralfate 1 gram tablet (Carafate) 1 g PO TID 05/13/24 leucovorin calcium 10 mg tablet 20 mg (2 x 10 mg) PO Q6H 1 week #56 tabs 05/20/24 levofloxacin 500 mg tablet 500 mg PO DAILY #5 tabs 05/20/24 Hospital Course Operations None Procedures None Summary of Care Provided Minutes Spent on Discharge: 55 Hospital Course: Patient is an 78-year-old female with a past medical history as outlined was admitted through the ED on 05/13/2024 with a complaint of sore mouth, rash on legs and weakness. She had been on methotrexate for lichen planus. However since she started methotrexate she had been getting weaker and in the ED labs showed that she was significantly pancytopenic. Oncology was consulted and there was concern about methotrexate toxicity. She was therefore admitted to be managed for pancytopenia due to methotrexate toxicity. Methotrexate was discontinued and she was started on IV leucovorin. Patient has severe mucositis and had difficulty eating so during the course of admission she was started on TPN for a few days as there was concern that she could not even have an NG tube passed due to the mucositis. She was placed on BMX syrup as well and there was concern for thrush so she was also placed on nystatin swish and swallow. Her oral ulcers and sores resolved and she was able to tolerate an oral diet. TPN was therefore discontinued. Her pancytopenia resolved and platelets also normalized. Per hematology, the pancytopenia was suspected to last for about 7 to 10 days after her last dose of methotrexate. Of note she developed a fever during admission and chest x-ray showed a questionable left lower lobe infiltrate. She was therefore started on IV levofloxacin. Urine for strep and Legionella were negative. She did have positive stool for occult blood but this was thought to be due to the mucositis and severe thrombocytopenia. Hemoglobin remained around 8. She was therefore given a referral to gastroenterology on outpatient basis. Patient was discharged on 05/20/2024. She was given a prescription for p.o. leucovorin 20 mg every 6 hours for 1 week with 1 refill as per hematology who I discussed this with, she had a tendency to have the pancytopenia with care if she was taking of the leucovorin. He will therefore see her in the office in a week and determine if she should continue with the leucovorin. Patient was seen and examined prior to discharge. She felt well and had no complaints. She had an uneventful night. She was able to tolerate her diet and felt well. She was ready to be discharged. Review of systems otherwise negative. Labs and vitals reviewed. Home medication reviewed and reconciled. She was given a prescription for p.o. levofloxacin 500 mg daily for 5 days for the presumptive pneumonia. Physical Exam Const alert, oriented x3 and no apparent distress Constitutional Narrative: listless. General Appearance: cooperative, comfortable and well kempt Orientation / Consciousness: awake HEENT normocephalic, head/scalp atraumatic, hearing grossly normal bilaterally, moist oral mucous membranes and oropharynx normal Mouth: oral and palatal mucosa normal Eyes PERRL and EOMs intact bilaterally Eyes Narrative: No icterus Neck no lymphadenopathy, supple and no JVD Neck Narrative: No thyromegaly Lymph Lymphatic: no lymphadenopathy noted and no lymphedema noted Resp normal respiratory effort, normal air movement, no retractions, no use of accessory muscles and clear to auscultation bilaterally Cardio regular rate, regular rhythm, S1 normal heart sound, S2 normal heart sound and no murmurs GI normal to inspection, nondistended, normoactive bowel sounds, soft to palpation, non-tender and non-distended GI Narrative: slightly tender. Extremity normal to inspection, full ROM, normal capillary refill, no clubbing, cyanosis or edema and no calf tenderness General Extremity: no tenderness to palpation of joints or extremities Skin no rashes or lesions noted General Skin Exam: no breakdown Neuro oriented x3, CN's II-XII intact bilaterally, moves all extremities, no focal motor deficits, no sensory deficits noted and deep tendon reflexes 2+ bilaterally Sensorium / Orientation: awake and alert Motor Exam: strength 5/5 throughout and general weakness Psych thought process normal, cooperative and affect normal Appearance: appropriate Medical Records Data Medical Nutrition Assessment Dietitian: Malnutrition Criteria Met Start: 05/16/24 10:31 Freq: Status: Active Protocol: Document 05/18/24 11:12 [facility] (Rec: 05/18/24 11:13 [facility] [id number]) Nutrition Malnutrition Evidence of Malnutrition Exists Yes Malnutrition (severe): Acute Illness/Injury Evidenced By Suboptimal Energy Intake ( Severe),Weight Loss (Severe) Intake Problem Inadequate Oral Intake Etiology related to difficulty chewing/ swallowing due to mucositis Signs/Symptoms as evidenced by need for pureed food, TPN and ONS as tolerated; PO <50% meals Status Active Problem Clinical Problem Acute Disease or Injury Related Malnutrition Etiology Severe protein-calorie malnutrition in the context of acute disease related to difficulty chewing/swallowing and inadequate oral/energy intake Signs/Symptoms as evidenced by oral intake meeting less than 50% estimated nutrition needs, need for mechanically altered food to pureed consistency, need for parenteral nutrition support and unintentional wt loss ~5% x past 1-2 weeks Status Active Problem Recommendation Dietitian Recommendations/Changes 1.) Will order TPN bag #3 Clinimix to infuse 1 L 8% Amino Acid/14% Dextrose @ 63mL /hour with electrolytes, MVI, trace elements and folic acid to provide 798 kcal, 140 gm dextrose and 80 gm pro per day . 2.) Will continue liberalized Regular diet, neutropenic precautions with Pureed Food consistency as per pt request. 3.) Will add 1 scoop beneprotein Q meal to sweet iced tea and soup. 4.) Will add broth, gravies, sauces to meals to help pt thin out puree foods so easier to eat. 5.) Follow-up Q day to renew/ adjust TPN, monitor PO, weight , labs. 6.) Encouraged pt and family to call RD as needed regarding TPN, diet, nutrition status. 8.) Monitor Mag/Phos x 3 days with start of TPN; check Triglycerides 1 time per week- -labs ordered. Weight / BMI Weight Weight: 145 lb 8.081 oz Body Mass Index (BMI) 27.0 ABG / Lab / Microbiology Data 05/20/24 09:01 05/19/24 07:09 Laboratory: Laboratory Results - last 24 hr 05/19/24 07:09: Sodium 137, Potassium 3.4 L, Chloride 105, Carbon Dioxide 22.0, Anion Gap 10, BUN 14, Creatinine 0.67, Estim Creat Clear Calc 47.75, Est GFR (MDRD) Af Amer 109, Est GFR (MDRD) Non-Af 90, BUN/Creatinine Ratio 20.9 H, Glucose 113 H, Calcium 9.3 05/19/24 17:16: POC Glucose 94 05/20/24 00:22: POC Glucose 92 05/20/24 09:01: WBC 4.4, RBC 3.17 L, Hgb 9.3 L, Hct 29.4 L, MCV 92.7, MCH 29.3, MCHC 31.6 L D, RDW Std Deviation 50.9 H, RDW Coeff of Evelio 15.6 H, Plt Count 369, MPV 10.9, Neut % (Auto) Not Reportable, Absolute Neuts (auto) 1.2 L, Absolute Lymphs (auto) 1.40, Total Counted 100, Neutrophils % (Manual) 24 L, Band Neutrophils % 4, Lymphocytes % (Manual) 31, Monocytes % (Manual) 2, Eosinophils % (Manual) 7 H, Basophils % (Manual) 1, Metamyelocytes % 14 H, Myelocytes % 5 H, Promyelocytes % 6 H, Blast Cells % 2 H*, Plasma Cell % (Manual) 4, Diff Path Review May foll, Platelet Estimate ADEQUATE, RBC Morphology NORM C+C, Phosphorus 3.2, Magnesium 2.0 Microbiology: Microbiology 05/14/24 15:49 Blood Culture (Wb) - No Site/Description Given Blood Culture - Final No growth in 5 days. 05/15/24 06:00 Urine, Catheterized Urine Culture - Final Culture exhibits no growth. 05/15/24 06:00 Urine Catheter - Catheter Legionella Antigen - Final 05/15/24 06:00 Urine Catheter - Catheter Streptococcus pneumoniae Antigen (M - Final 05/13/24 22:30 Stool Stool Occult Blood (NIYAH) - Final Occult Blood Positive D/C Instructions Discharge Diet: Low fat / Low cholesterol Discharge Activity: Return to Normal Activity Weight Bearing Status: Weight bearing as tolerated Call your doctor if you observe: Fever of 101 or Higher, Shortness of breath, Dizziness, Swelling in the ankles and Chest pain Meaningful Use Info Meaningful Use Meaningful Use Diagnoses (Choose all that apply): None applicable Ischemic Stroke Statin Dosing Therapy Reference: STATIN DOSE THERAPY REFERENCE: * Patients > 75 years receive moderate or high dose statin therapy. * Patients 75 years or YOUNGER should receive HIGH intensity statin dose unless contraindicated. You will be required to document reason for non-treatment if statin daily dose does not meet guidelines. HIGH DOSE STATIN THERAPY DAILY Atorvastatin > than or = to 40 mg Rosuvastatin > than or = to 20 mg Amlodipine + Atorvastatin > than or = to 2.5/40 mg Ezetimibe + Simvastatin 10/80 mg Simvastatin 80mg Discharge Plan Admission Admit Date/Time: 05/13/24 10:11 Primary Reason for Your Visit: pancytopenia Attending Provider: Charlotte Ybarra Primary Care Provider: Shane Saleh Consulting Providers: Braydon Vicente; Socrates Renee; Neftali Heller; Rylan Jordan; Shan Torres; Cristóbal Devi; Anjel Escobar; Camille Real NP; Jenaro Swenson Instructions Patient Instructions: Neutropenia, Thrombocytopenia Discharge Orders/Prescriptions Prescriptions: New leucovorin calcium 10 mg tablet 20 mg PO Q6H 7 Days Qty: 56 1RF levofloxacin 500 mg tablet 500 mg PO DAILY Qty: 5 0RF Continued aspirin 81 mg tablet,chewable 81 mg PO QDAY gabapentin 600 mg tablet 600 mg PO QHS duloxetine 60 MG capsule,delayed release(DR/EC) 60 mg PO DAILY Patient Comments: DEPRESSION MAGIC MOUTH WASH (BMX) 180 mL suspension 30 ml buccal Q8H PRN PRN (Reason: pain) Qty: 180 0RF Patient Comments: has not started yet Rx Instructions: diphenhydramine 12.5 mg/5 mL oral liquid 60 mL; aluminum-mag hydroxide-simethicone 400 mg-400 mg-40 mg/5 mL oral susp 60 mL; Lidocaine Viscous 2 % mucosal solution 60 mL; Per 180 mL clobetasol 0.05 % cream 1 applic topical BID Patient Comments: has not started yet esomeprazole magnesium 40 mg capsule,delayed release(DR/EC) 40 mg PO DAILY lisinopril 30 mg tablet 30 mg PO DAILY hyoscyamine sulfate 0.125 mg tablet,disintegrating 0.125 mg PO TID PRN sucralfate [Carafate] 1 gram tablet 1 g PO TID Rx Instructions: has not started yet prednisone 20 mg tablet 40 mg PO DAILY Qty: 12 0RF Discontinued methotrexate sodium 2.5 mg tablet 12.5 mg PO QWEEK Referrals / Follow Up: Shane Saleh MD [Primary Care Provider] - Within 1 Week Jenaro Gallo MD [Med Staff - Outsole Handler] - Neftali Heller MD [Med Staff - Active Staff] - 05/27/24 3:00 pm Alcides Adams DO [Med Staff - Active Staff] - 06/03/24 9:30 am (see to establish care for positive occult blood in stool) Disposition Disposition (needs filled in before D/C Order can be placed): Home, Self Care Charges/Coding Visit Charges Inpatient E&M: 21866 Disch Hosp >30min
--- NOTE | 2024-05-20 11:53 | CASEMGMT ---
IRENE CM into pt room, pt sitting up in bed in no distress. Pt denies any homegoing needs. Pt states she feels her strength is good to go home. She is glad to be dc'ing. Pt denies need for any HHC.
--- NOTE | 2024-05-20 12:12 | PHA.DC.MC.R ---
Pharmacy [facility] has performed discharge medication reconciliation and counseling for this patient. The patient's discharge medication list was reviewed for discrepancies and discrepancies were resolved. The patient was counseled on the following discharge medications and changes in medications for homegoing were reviewed. The Reason for Use, instructions for use, and potential side effects were reviewed for all new medications. The patient's questions regarding all of their medications were answered. 1. Leucovorin 20 mg PO 4x/day 2. Levofloxacin 500 mg PO daily x 5 days The patient was able to verbally demonstrate an understanding of their discharge medications. Medications at Discharge Home Medications duloxetine 60 mg capsule,delayed release 60 mg PO DAILY 02/12/17 aspirin 81 mg chewable tablet 81 mg PO QDAY 01/29/18 gabapentin 600 mg tablet 600 mg PO QHS 04/25/18 MAGIC MOUTH WASH (BMX) 180 mL suspension 30 ml buccal Q8H PRN PRN pain #180 mL 02/05/22 prednisone 20 mg tablet 40 mg (2 x 20 mg) PO DAILY #12 TABLETS 05/10/24 clobetasol 0.05 % topical cream 1 applic topical BID skin 05/13/24 esomeprazole magnesium 40 mg capsule,delayed release 40 mg PO DAILY 05/13/24 hyoscyamine sulfate 0.125 mg disintegrating tablet 0.125 mg PO TID PRN rectal spasms 05/13/24 lisinopril 30 mg tablet 30 mg PO DAILY 05/13/24 sucralfate 1 gram tablet (Carafate) 1 g PO TID 05/13/24 leucovorin calcium 10 mg tablet 20 mg (2 x 10 mg) PO Q6H 1 week #56 tabs 05/20/24 levofloxacin 500 mg tablet 500 mg PO DAILY #5 tabs 05/20/24
[2024-05-22 13:03] LABS: Pathologist Review Reviewed
== END 2024-05-20 14:50 | disposition home or self-care (01) | DRG 808 ==
LOC: ED 09:16 → MS3 10:31
PROVIDERS: Emergency Provider Emergency Medicine; PCP Family Medicine; Visit Provider Student in an Organized Health Care Education/Training Program
DX: D61.810 Antineoplastic chemotherapy induced pancytopenia (principal); J18.9 Pneumonia, unspecified organism; E44.0 Moderate protein-calorie malnutrition; K12.32 Oral mucositis (ulcerative) due to other drugs; M06.9 Rheumatoid arthritis, unspecified; E78.00 Pure hypercholesterolemia, unspecified; E87.6 Hypokalemia; L43.3 Subacute (active) lichen planus; R19.5 Other fecal abnormalities; T45.1X5A Adverse effect of antineoplastic and immunosuppressive drugs, initial encounter; Z68.27 Body mass index [BMI] 27.0-27.9, adult; Z79.82 Long term (current) use of aspirin; Z79.899 Other long term (current) drug therapy
CPT/HCPCS: 36415; 36569; 71046; 80048; 80053; 81001; 82274; 82962; 83735; 84100; 84478; 84484; 85025; 86850; 86900; 86901; 86920; 86922; 86965; 87040; 87086; 87449; 93005; 97110; 97116; 97161; 97166; 97530; 97802; 97803; 99282; 99285; J7030; P9016; P9035; A4216; J0640

== ENCOUNTER → 2024-05-27 | Outpatient (CLI) | payer MEDICARE, SELFPAY ==
[2024-05-27 14:40] LABS: Hematocrit 33.4 % (37-47); Hemoglobin 10.3 g/dL (12.0-15.0); Mean Corp Hgb Conc 30.8 g/dL (32-36); Mean Corpuscular Hgb 29.9 pg (27.0-32.0); Mean Corpuscular Volume 97.1 fL (81-99); Mean Platelet Vol. 9.3 fl (6.2-12.0); POSITIVE COUNT YES; POSITIVE MORPHOLOGY YES; Platelet Count 1037 K/mm3 (150-450); RBC Distribution Width SD 51.8 fl (35.1-43.9); Red Blood Count 3.44 M/mm3 (4.2-5.4); White Blood Count 11.6 K/mm3 (4.4-11.0)
[2024-05-27 14:51] LABS: Anion Gap 5 (5-15); BUN 14 mg/dL (7-18); BUN/Creat Ratio 14.4 RATIO (10-20); Calcium,Total 9.8 mg/dL (8.5-10.1); Chloride 101 mmol/L (98-107); Creatinine, Serum 0.97 mg/dL (0.55-1.02); EST Glomerular Filtration Rate 59 mL/min (>60); Est Glom Filt Rate - Afr Amer 71 mL/min (>60); Glucose 108 mg/dL (74-106); Potassium 4.2 mmol/L (3.5-5.1); Sodium Level 135 mmol/L (136-145)
[2024-05-27 15:33] LABS: Differential Indicated MANUAL DIFF
[2024-05-27 15:55] LABS: Lymphocyte 17 % (19-41); Metamyelocyte 2 % (0-1); Monocyte 8 % (0-10); Myelocyte 5 % (0-0); Neutrophil-Band 2 % (0-5); Neutrophil-Segmented 62 % (47-70); Platelet Estimate MKD DEC (ADEQ); Promyelocyte 4 % (0-0); Total Cells Counted 100 (MANUAL DIFF)
[2024-05-27 19:21] LABS: Absolute Lymphocyte Count 1.97 X10^3/uL (0.83-4.51); Absolute Neutrophil Count 7.4 X10^3/uL (2.0-7.7); Differential Comment MANUAL
[2024-05-28 15:05] LABS: Pathologist Review Reviewed
== END | disposition home or self-care (01) ==
LOC: LAB 14:11
PROVIDERS: PCP Family Medicine; Referring Provider Internal Medicine Hematology & Oncology; Visit Provider Internal Medicine Hematology & Oncology
DX: D61.818 Other pancytopenia (principal)
CPT/HCPCS: 36415; 80048; 85025

== ENCOUNTER → 2024-06-03 | Outpatient (CLI) | payer MEDICARE, SELFPAY ==
[2024-06-03 10:46] LABS: Absolute Lymphocyte Count 1.15 X10^3/uL (0.83-4.51); Absolute Neutrophil Count 6.1 X10^3/uL (2.0-7.7); Basophil# 0.04 X10^3/uL; Basophil% 0.5 % (0-1); Hematocrit 33.6 % (37-47); Hemoglobin 10.5 g/dL (12.0-15.0); Lymphocyte # 1.15 X10^3/ul (0.83-4.51); Lymphocyte % 14.3 % (19-41); Mean Corp Hgb Conc 31.3 g/dL (32-36); Mean Platelet Vol. 9.5 fl (6.2-12.0); Monocyte# 0.51 X10^3/uL; Monocyte% 6.3 % (0-10); NRBC Flagged by Analyzer 0 % (0-5); Neutrophil # 6.14 X10^3/uL (2.7-7.7); Neutrophil % 76.2 % (47-70); Platelet Count 559 K/mm3 (150-450); RBC Distribution Width CV 16.4 % (11.6-14.6); RBC Distribution Width SD 55.1 fl (35.1-43.9); White Blood Count 8.1 K/mm3 (4.4-11.0)
== END | disposition home or self-care (01) ==
LOC: LAB 10:08
PROVIDERS: PCP Family Medicine; Referring Provider Student in an Organized Health Care Education/Training Program; Visit Provider Student in an Organized Health Care Education/Training Program
DX: D64.9 Anemia, unspecified (principal)
CPT/HCPCS: 36415; 85025

== ENCOUNTER → 2024-06-05 | Outpatient (CLI) | payer MEDICARE, SELFPAY | END | disposition home or self-care (01) | LOC: LABSPEC 11:13 | PROVIDERS: PCP Family Medicine; Referring Provider Student in an Organized Health Care Education/Training Program; Visit Provider Student in an Organized Health Care Education/Training Program | DX: D64.9 Anemia, unspecified (principal) | CPT/HCPCS: 82274 ==

== ENCOUNTER → 2024-08-12 | Outpatient (CLI) | payer MEDICARE, SELFPAY ==
[2024-08-12 10:10] LABS: Absolute Lymphocyte Count 1.36 X10^3/uL (0.83-4.51); Absolute Neutrophil Count 2.4 X10^3/uL (2.0-7.7); Basophil# 0.02 X10^3/uL; Basophil% 0.5 % (0-1); Hematocrit 38.7 % (37-47); Hemoglobin 12.6 g/dL (12.0-15.0); Lymphocyte # 1.36 X10^3/ul (0.83-4.51); Lymphocyte % 32.4 % (19-41); Mean Corp Hgb Conc 32.6 g/dL (32-36); Mean Corpuscular Hgb 31.4 pg (27.0-32.0); Mean Corpuscular Volume 96.5 fL (81-99); Mean Platelet Vol. 8.7 fl (6.2-12.0); Monocyte# 0.41 X10^3/uL; Monocyte% 9.8 % (0-10); NRBC Flagged by Analyzer 0 % (0-5); Neutrophil % 57.1 % (47-70); Platelet Count 234 K/mm3 (150-450); RBC Distribution Width CV 13.9 % (11.6-14.6); RBC Distribution Width SD 49.5 fl (35.1-43.9); Red Blood Count 4.01 M/mm3 (4.2-5.4); White Blood Count 4.2 K/mm3 (4.4-11.0)
[2024-08-12 10:29] LABS: Vitamin B12 644 pg/mL (211-911)
[2024-08-12 10:33] LABS: AST(SGOT) 13 U/L (15-37); Alanine Aminotransfer ALT/SGPT 20 U/L (13-56); Albumin, Serum 3.6 g/dL (3.2-5.0); Alkaline Phosphatase 93 U/L (45-117); Anion Gap 6 (5-15); BUN 11 mg/dL (7-18); BUN/Creat Ratio 11.8 RATIO (10-20); Chloride 108 mmol/L (98-107); Creatinine, Serum 0.93 mg/dL (0.55-1.02); EST Glomerular Filtration Rate 61 mL/min (>60); Est Glom Filt Rate - Afr Amer 74 mL/min (>60); Ferritin 91 ng/mL (8-252); Globulin 3.7 g/dL (2.2-4.2); Glucose 98 mg/dL (74-106); Iron 72 ug/dL (50-170); Iron Binding Capacity,Total 328 ug/dL (250-450); Potassium 4.3 mmol/L (3.5-5.1); Protein, Total 7.3 g/dL (6.4-8.2); Sodium Level 142 mmol/L (136-145)
== END | disposition home or self-care (01) ==
PROVIDERS: Internal Medicine Hematology & Oncology; PCP Family Medicine; Referring Provider Internal Medicine Rheumatology; Visit Provider Internal Medicine Rheumatology
DX: M06.4 Inflammatory polyarthropathy (principal); D64.9 Anemia, unspecified; M79.7 Fibromyalgia; Z79.899 Other long term (current) drug therapy
CPT/HCPCS: 36415; 80053; 82607; 82728; 83540; 83550; 85025

== ENCOUNTER → 2024-09-25 | Outpatient (CLI) | payer MEDICARE, SELFPAY ==
--- NOTE | 2024-09-25 08:08 | BD_ITS ---
STUDY: DUAL ENERGY X-RAY ABSORPTIOMETRY / DXA REASON FOR EXAM: Female, 79 years old. 627.8Menopausal postmenopausal BONE DENSITY REASON FOR EXAM TECHNIQUE: Bone Mineral Density (BMD) measurements of lumbar spine and bilateral hips were obtained. COMPARISON: Comparison is made with prior study dated June 08, 2022. FINDINGS: Lumbar Spine (L1-L4): g/cm2 (0.916) / T-score (-1.2) / Z-score (1.5) Findings are suggestive of osteopenia with a low fracture risk. Left Femur Total: g/cm2 (0.916) / T-score (-0.2) / Z-score (1.9) Left Femoral Neck: g/cm2 (0.765) / T-score (-0.8) / Z-score (1.6) Right Femur Total: g/cm2 (0.867) / T-score (-0.6) / Z-score (1.5) Right Femoral Neck: g/cm2 (0.702) / T-score (-1.3) / Z-score (1.0) The T-Scores on the most recent prior examination were: Lumbar Spine (L1-L4): There has been worsening of bone density since the previous examination. Left Femur Total: which represents an improvement of 0.3%. Right Femur Total: which represents a worsening of 1.1%. BD/Dexa Bone Density Study IMPRESSION: The patient is considered osteopenic as outlined below according to World Matt Organization (WHO) criteria with a low fracture risk. There has been worsening of bone density since the previous examination. Reference Information: The T-score is the number of standard deviations above or below the standard which is normal for young adults at their peak bone mineral density. The World Health Organization (WHO) interprets the T-scores as follows: Above -1 Normal bone density Between -1 and -2.5 Osteopenia Equal to / or below -2.5 Osteoporosis As a practical clinical guideline, osteopenia may be graded as follows: Mild -1 through -1.5 Moderate -1.6 through -2.0 Severe -2.1 through -2.4 The Z-score is the number of standard deviations above or below age-matched controls. A Z-score of less than -1.5 would be considered abnormal. References: 1. NIH Osteoporosis and Related Bone Diseases www osteo.org 2. International Society for Clinical Densitometry www iscd.org 3. National Osteoporosis Foundation www nof.org Electronically Signed: Zbigniew Perez MD at 14:23 EST ,
== END | disposition home or self-care (01) ==
LOC: OPBD 08:07
PROVIDERS: PCP Family Medicine
DX: M81.0 Age-related osteoporosis without current pathological fracture (principal); Z78.0 Asymptomatic menopausal state
CPT/HCPCS: 77080

== ENCOUNTER → 2024-09-26 | Outpatient (CLI) | payer MEDICARE, SELFPAY ==
--- NOTE | 2024-09-26 11:30 | MRI_ITS ---
STUDY: MRI LEFT FOOT REASON FOR EXAM: Female, 79 years old. GANGLION CYST. TECHNIQUE: Standardized fat and water weighted pulse sequences were obtained in all 3 orthogonal planes. COMPARISON: None. FINDINGS: There is a septated ganglion cyst adjacent to the dorsomedial margin of the interphalangeal joint of the great toe, overall measuring 1.4 cm AP, 1.3 cm transverse, and 0.6 cm craniocaudad. Normal bone marrow of the metatarsals, phalanges and visualized distal tarsal row, without fracture, periostitis, erosions or reactive bone edema. Normal sesamoids without sesamoiditis, fracture or avascular necrosis. Normal joint spaces, without effusions. Normal visualized Lisfranc joints and normal Lisfranc ligament. Normal intermetatarsal spaces without intermetatarsal (Fang) neuroma or bursitis. Normal visualized extensor digitorum longus, extensor hallucis longus, flexor digitorum brevis and flexor hallucis longus tendons. Normal visualized plantar fascia without fasciitis, fibromatosis or tear. Normal intrinsic muscles of the foot, without soft tissue masses or evidence of denervation atrophy. Normal dorsal and plantar subcutis adipose space. MRI/Lower Ext/No Jt/w/o IMPRESSION: 1.4 x 1.3 x 0.6 cm septated ganglion cyst adjacent to the dorsomedial margin of the interphalangeal joint of the great toe. Electronically Signed: Cristóbal Roldan MD at 13:31 EST ,
== END | disposition home or self-care (01) ==
LOC: MRI 10:30
PROVIDERS: PCP Family Medicine; Referring Provider Podiatrist; Visit Provider Podiatrist
DX: M67.472 Ganglion, left ankle and foot (principal)
CPT/HCPCS: 73718

== ENCOUNTER 2024-10-10 05:44 | Day surgery (SDC) | payer MEDICARE, SELFPAY ==
--- NOTE | 2024-09-29 13:55 | PAT.ANESEVAL ---
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 When Was Last Pacemaker Check QUESTION #4 FULL TEXT: You/Your Family Experience fever (hyperthermia) with Anesthesia Last Oral Intake Last Oral intake: Last Oral Intake NPO since Meds taken in AM with sips of water? 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 engineering technician Female Yes 09/26/24 08:54 HX of Motion Sickness Yes 09/26/24 08:54 HX of N/V After Surgery Yes 09/26/24 08:54 Non-Smoker Yes 09/26/24 08:54 Duration of Surgery greater No 09/26/24 08:54 than 60 minutes Number of Risk Factors 4 09/26/24 08:54 PONV Score Severe Risk 09/26/24 08:54 Height & Weight Height & Weight: Anesthesia: Height & Weight Height 5 ft 1.5 in 08/20/24 14:59 Respiratory Assessment Respiratory Assessment - environmental engineering technician: Respiratory Tract Infection Hx - environmental engineering technician Hx Respiratory Tract Infection No 09/26/24 08:54 STOP Sleep Apnea STOP Sleep Apnea - environmental engineering technician: STOP Sleep Apnea - environmental engineering technician Hx Hypertension Yes: CONTROLLED WITH MED 09/26/24 08:54 Hx Sleep Apnea No 09/26/24 08:54 CPAP No 05/06/24 08:32 BIPAP No 05/06/24 08:32 Do you snore loudly (louder No 09/26/24 08:54 than talking or can be heard Do you often feel tired/ No 09/26/24 08:54 fatigued/ sleepy during daytime? Has anyone observed you stop No 09/26/24 08:54 breathing during sleep? STOP Results Negative 09/26/24 08:54 QUESTION #5 FULL TEXT : Do you snore loudly (louder than talking or can be heard through closed doors)? 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 Specify any problems Hx of Preganancy in last 3 No 09/26/24 08:54 Months Nurse Filling Out Transfusion DSCHRIBER 09/26/24 08:54 & Questions: Date: 09/26/24 09/26/24 08:54 Time: 08:55 09/26/24 08:54 Patient unable to answer at this time (ie. 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 Oral candidiasis Allergic reaction Stress incontinence High cholesterol Anemia History of diverticulitis Restless legs Back pain Non-smoker History of echocardiogram History of stress test Dysphagia Screening for intestinal cancer Shortness of breath Rheumatoid arthritis GERD (gastroesophageal reflux disease) Arthritis Anxiety Home Medications ?Medication ?Instructions ?Recorded ?Last Taken ?Type aspirin 81 mg chewable tablet 81 mg PO QDAY 01/29/18 05/12/24 History gabapentin 600 mg tablet 600 mg PO QHS 04/25/18 05/12/24 History clobetasol 0.05 % topical cream 1 applic topical BID skin 05/13/24 Unknown History esomeprazole magnesium 40 mg 40 mg PO DAILY 05/13/24 05/12/24 History capsule,delayed release lisinopril 30 mg tablet 30 mg PO DAILY 05/13/24 05/12/24 History bupropion HCl 150 mg 24 hr tablet, 150 mg PO QAM 08/20/24 Unknown History extended release ferrous sulfate 325 mg (65 mg 325 mg PO QDAY 08/20/24 Unknown History iron) tablet (FeroSul) mecobalamin (vitamin B12) 1,000 1,000 mcg PO QDAY 08/20/24 Unknown History mcg lozenges vitamin A-vit C-vit E-zinc-Cu 1 tab PO DAILY 08/20/24 Unknown History tablet zinc gluconate 50 mg tablet 50 mg PO QDAY 08/20/24 Unknown History Allergy/AdvReac Type Severity Reaction Status Date / Time erythromycin base Allergy Rash Verified 09/26/24 08:51 fluconazole Allergy Rash Verified 09/26/24 08:51 ibuprofen (From Motrin) Allergy Rash Verified 09/26/24 08:51 methotrexate Allergy Toxicity Verified 09/26/24 08:51 pitavastatin (From Livalo) Allergy Rash Verified 09/26/24 08:51 pravastatin (From Pravachol) Allergy Rash Verified 09/26/24 08:51 dicyclomine HCl (From Bentyl) AdvReac Nausea Verified 09/26/24 08:51 Sulfa (Sulfonamide AdvReac Nausea Verified 09/26/24 08:51 Antibiotics) Family History Mother CVA (cerebral vascular accident) Sister Diabetes Heart disease Brother Heart disease Daughter Breast cancer Surgical History (Updated 09/26/24 @ 09:01 by Kavya Potter) Hx of cystoscopy History of lithotripsy History of esophagogastroduodenoscopy (EGD) (~2014) History of colonoscopy (~03/2017) History of colectomy (~03/2017) History of appendectomy History of hysterectomy History of laparoscopic cholecystectomy Social History Smoking Status: Never smoker alcohol intake: never substance use type: does not use caffeine: Yes what type of physical activity do you participate in: none seatbelt use: always do you feel safe at home: Yes additional social history: Cholo- Both are retired Audit: Pertinent Findings Pertinent Findings EKG Perinent findings: NSR from 2023 Current Visit Impressions Current Visit Impressions: No new symptoms. OK to proceed. Recommendation Anesthesia Recommendation Anesthesia recommendation: OPTIMIZED for anesthesia
[2024-10-10] VITALS (7 sets, daily range): BP systolic 113–145; BP diastolic 58–65; PULSE 72–85; RESP 16; TEMP 36–36.9; O2SAT 94–98; BMI 27.1
--- NOTE | 2024-10-10 06:39 | PCM.PRE.AN2 ---
ASA Classification* ASA Classification ASA Classification: 2 Assessment & Plan Anesthesia* Anesthesia Assessment Anesthesia Assessment: Discussed sedation and/or anesthesia options, risks, benefits, and alternatives with patient/parents/legal guardian/POA. Questions invited. The patient/parents/legal guardian/POA seems to understand and agrees to proceed with anesthesia plan. Reviewed the physical assessment, medical history, allergy history and patient home medications list prior to surgery/procedure/anesthetic and documented any changes. Performed airway and anesthesia risk assessments. Anesthesia Type Anesthesia Type: MAC Anesthesia Focused Assessment* Temperature: 98 F Pulse Rate: 85 Blood Pressure: 145/60 Respiratory Rate: 16 Pulse Ox: 95 Airway Assessment Mouth opens: >3 cm Mallampati Score: II Focused Labs Anesthesia Preop lab: CBC WBC 4.2 K/mm3 (4.4-11.0) L 08/12/24 09:20 08/12/24 RBC 4.01 M/mm3 (4.2-5.4) L 08/12/24 09:20 08/12/24 Hgb 12.6 g/dL (12.0-15.0) 08/12/24 09:20 08/12/24 Hct 38.7 % (37-47) 08/12/24 09:20 08/12/24 Plt Count 234 K/mm3 (150-450) 08/12/24 09:20 08/12/24 CHEMISTRY Potassium 4.3 mmol/L (3.5-5.1) 08/12/24 09:20 08/12/24 Sodium 142 mmol/L (136-145) 08/12/24 09:20 08/12/24 Magnesium 2.0 mg/dL (1.6-2.6) 05/20/24 09:01 05/20/24 Phosphorus 3.2 mg/dL (2.5-4.9) 05/20/24 09:01 05/20/24 BUN 11 mg/dL (7-18) 08/12/24 09:20 08/12/24 Creatinine 0.93 mg/dL (0.55-1.02) 08/12/24 09:20 08/12/24 Glucose [facility] 119 mg/dL (70-110) H 08/17/20 18:08 08/17/20 Glucose 98 mg/dL (74-106) 08/12/24 09:20 08/12/24 POC Glucose 92 mg/dL (74-106) 05/20/24 00:22 05/20/24 TSH 1.33 uIU/mL (0.358-3.74) 08/12/20 10:11 08/12/20 COAG PT 12.7 SECONDS (11.7-14.9) 03/14/17 08:35 03/14/17 Pre-Assessment Diagnosis/Proposed Procedure Planned Operative Procedure(s): EXCISION OF THE LEFT FIRST TOE Cyst Anesthesia History 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 When Was Last Pacemaker Check QUESTION #4 FULL TEXT: You/Your Family Experience fever (hyperthermia) with Anesthesia Last Oral Intake Last Oral intake: Last Oral Intake NPO since 00:00 10/10/24 06:18 Meds taken in AM with sips of water? 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 Female Yes 09/26/24 08:54 HX of Motion Sickness Yes 09/26/24 08:54 HX of N/V After Surgery Yes 09/26/24 08:54 Non-Smoker Yes 09/26/24 08:54 Duration of Surgery greater No 09/26/24 08:54 than 60 minutes Number of Risk Factors 4 09/26/24 08:54 PONV Score Severe Risk 09/26/24 08:54 Height & Weight Height & Weight: Anesthesia: Height & Weight Height 5 ft 2 in 10/10/24 06:18 Weight: 67.132 kg 10/10/24 06:18 Body Mass Index (BMI) 27.1 10/10/24 06:18 Respiratory Assessment Respiratory Assessment - rocket engine mechanic: Respiratory Tract Infection Hx - rocket engine mechanic Hx Respiratory Tract Infection No 09/26/24 08:54 STOP Sleep Apnea STOP Sleep Apnea - rocket engine mechanic: STOP Sleep Apnea - rocket engine mechanic Hx Hypertension Yes: CONTROLLED WITH MED 09/26/24 08:54 Hx Sleep Apnea No 09/26/24 08:54 CPAP No 05/06/24 08:32 BIPAP No 05/06/24 08:32 Do you snore loudly (louder No 09/26/24 08:54 than talking or can be heard Do you often feel tired/ No 09/26/24 08:54 fatigued/ sleepy during daytime? Has anyone observed you stop No 09/26/24 08:54 breathing during sleep? STOP Results Negative 09/26/24 08:54 QUESTION #5 FULL TEXT : Do you snore loudly (louder than talking or can be heard through closed doors)? 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 Specify any problems Hx of Preganancy in last 3 No 09/26/24 08:54 Months Nurse Filling Out Transfusion DSCHRIBER 09/26/24 08:54 & Questions: Date: 09/26/24 09/26/24 08:54 Time: 08:55 09/26/24 08:54 Patient unable to answer at this time (ie. confused, unrespo /Reproduction History /Reproductive History - rocket engine mechanic: /Reproductive Hx- rocket engine mechanic Hx Now No 09/26/24 08:54 Gestational Age (in weeks): EDC: Hx Hx Para Hx Section SAB No 09/26/24 08:54 Active Medications Active Medications: Current Medications Generic Name Dose Route Start Last Admin Trade Name Kevon PRN Reason Stop Dose Admin Cefazolin Sodium 2 gm/ N/A 20 mls @ 400 mls/hr 10/10/24 07:30 IV 10/10/24 07:32 PREOP ONE [facility] Medical History Wears glasses Wears dentures Depression Syncope Shortness of breath on exertion Hypertension Malnutrition Heme positive stool Mucositis 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 Oral candidiasis Allergic reaction Stress incontinence High cholesterol Anemia History of diverticulitis Restless legs Back pain Non-smoker History of echocardiogram History of stress test Dysphagia Screening for intestinal cancer Shortness of breath Rheumatoid arthritis GERD (gastroesophageal reflux disease) Arthritis Anxiety Home Medications ?Medication ?Instructions ?Recorded ?Last Taken ?Type aspirin 81 mg chewable tablet 81 mg PO QDAY 01/29/18 10/09/24 History gabapentin 600 mg tablet 600 mg PO QHS 04/25/18 10/09/24 History clobetasol 0.05 % topical cream 1 applic topical BID skin 05/13/24 Unknown History esomeprazole magnesium 40 mg 40 mg PO DAILY 05/13/24 05/12/24 History capsule,delayed release lisinopril 30 mg tablet 30 mg PO DAILY 05/13/24 10/09/24 History bupropion HCl 150 mg 24 hr tablet, 150 mg PO QAM 08/20/24 10/09/24 History extended release ferrous sulfate 325 mg (65 mg 325 mg PO QDAY 08/20/24 Unknown History iron) tablet (FeroSul) mecobalamin (vitamin B12) 1,000 1,000 mcg PO QDAY 08/20/24 Unknown History mcg lozenges vitamin A-vit C-vit E-zinc-Cu 1 tab PO DAILY 08/20/24 Unknown History tablet zinc gluconate 50 mg tablet 50 mg PO QDAY 08/20/24 Unknown History Allergy/AdvReac Type Severity Reaction Status Date / Time erythromycin base Allergy Rash Verified 10/10/24 06:17 fluconazole Allergy Rash Verified 10/10/24 06:17 ibuprofen (From Motrin) Allergy Rash Verified 10/10/24 06:17 methotrexate Allergy Toxicity Verified 10/10/24 06:17 pitavastatin (From Livalo) Allergy Rash Verified 10/10/24 06:17 pravastatin (From Pravachol) Allergy Rash Verified 10/10/24 06:17 dicyclomine HCl (From Bentyl) AdvReac Nausea Verified 10/10/24 06:17 Sulfa (Sulfonamide AdvReac Nausea Verified 10/10/24 06:17 Antibiotics) Family History Mother CVA (cerebral vascular accident) Sister Diabetes Heart disease Brother Heart disease Daughter Breast cancer Surgical History Hx of cystoscopy History of lithotripsy History of esophagogastroduodenoscopy (EGD) (~2014) History of colonoscopy (~03/2017) History of colectomy (~03/2017) History of appendectomy History of hysterectomy History of laparoscopic cholecystectomy Social History Smoking Status: Never smoker alcohol intake: never substance use type: does not use caffeine: Yes what type of physical activity do you participate in: none seatbelt use: always do you feel safe at home: Yes additional social history: Cholo- Both are retired Review of Systems (Anesthesia) ROS Narrative System reviewed and no additional complaints, except as documented.
[2024-10-10] MEDS: Cefazolin 2 GM in Syringe IV (07:30)
--- NOTE | 2024-10-10 07:30 | GANG_PTH ---
PATIENT: JENS KUO [place] [facility] [place][id number] AGE/SX: 79/F ROOM: RE10/10/[address]: Dr. Leo Pappas DPM : 1945 BED: DIS: 10/10/2024 SPEC #: [id number] RECD: 10/10/24 11:00 STATUS: NICOLE DONY #: [id number] NANI: 10/10/24 07:[address]: Leo Pappas DEPT: SURGICAL PATHOLOGY RECD BY: Harvey Torres ENTERED: 10/10/24 11:46 SP TYPE: GANGLION OTHR DR: Shane Saleh MD Tissues: GANGLION CYST Procedures: Surgery Specimen Level III HEADER OPERATION: Excision of left first toe cyst PRE-OP DIAGNOSIS: Ganglion cyst left first toe TISSUE SUBMITTED: Ganglion cyst left first toe MICROSCOPIC DIAGNOSIS Ganglion cyst, left first toe, excision: Fragments of fibroadipose tissue, fibroconnective tissue, and fibrocartilaginous tissue with focal changes consistent with ganglion cyst. 10/13/2024 MICROSCOPIC DESCRIPTION Slides are reviewed. GROSS DESCRIPTION Received in fixative is one container labeled with the patient's name and designated Ganglion cyst first left toe. The specimen consists of two fragments of burciaga soft tissue that in aggregate measure 0.8 x 0.8 x 0.3cm. The specimen is totally submitted in one cassette. 10/10/2024 TC:5 CPT:28112
[2024-10-10] MEDS: Bupivacaine Mpf 0.5% 30 ML VIAL (07:35)
--- NOTE | 2024-10-10 08:18 | PCM.POST.ANE ---
Anesthesia: Postop Eval I Current Vital Signs Temperature: 96.8 F Pulse Rate: 78 Blood Pressure: 116/65 Respiratory Rate: 16 Pulse Ox: 98 Oxygen Delivery Method: Room Air Assessment Airway patent: Yes Spontaneous unlabored respirations: Yes Mental status: Awake and Calm nausea: No Vomiting: No Anesthesia Complication: No Fluid Hydration Crystalloid volume administer (ml): 10 Total IV fluid infused: 10 Progress Note Anesthesia document: Postop Eval 1 completed: Yes
--- NOTE | 2024-10-10 08:26 | PCM.DC ---
Discharge Instructions Diet Discharge Diet: Light diet - advance as tolerated DC O2, CPAP, BIPAP needs Home O2 Discharge instructions: No Dressing / Incision Weight Bearing Status: No weight bearing (No weightbearing on toes left foot, ok to put weight on left heel only as needed) Keep extremity elevated above heart level: Operative Extremity (Keep left foot elevated for at least 50 minutes of every hour using pillows) Dressing / Incision Call your doctor if your incision/area has: Continuous Slow Oozing, Sudden Increased Bleeding and Foul Smelling Discharge Call your doctor if you observe: Fever of 101 or Higher, Shortness of breath, Chest pain, Increased palpitations (irregular heartbeat), Calf discomfort and Uncontrolled pain Change Dressing in: do not change dressing Remove Dressing in: do not remove dressing Cleanse incision/area with: Keep Dressing Clean & Dry Follow Up Care Please Follow Up With: Leo Pappas DPM When: Next week in office, sooner if needed Test Results: Test results from this visit will be discussed in further detail at your follow-up appointment, if applicable. Discharge Plan Admission Attending Provider: Leo Pappas Primary Care Provider: Shane Saleh Instructions Print Language: Nauruan Discharge Orders/Prescriptions Prescriptions: New hydrocodone-acetaminophen 5-325 mg tablet 1 tab PO Q6H PRN (Reason: pain) 3 Days Qty: 12 0RF No Action aspirin 81 mg tablet,chewable 81 mg PO QDAY gabapentin 600 mg tablet 600 mg PO QHS ferrous sulfate [FeroSul] 325 mg (65 mg iron) tablet 325 mg PO QDAY zinc gluconate 50 mg tablet 50 mg PO QDAY vitamin A-vit C-vit E-zinc-Cu Tablet 1 tab PO DAILY bupropion HCl 150 mg tablet extended release 24 hr 150 mg PO QAM mecobalamin (vitamin B12) 1,000 mcg lozenge 1,000 mcg PO QDAY Rx Instructions: allow to dissolve in mouth OR may chew lightly before swallowing clobetasol 0.05 % cream 1 applic topical BID Patient Comments: has not started yet esomeprazole magnesium 40 mg capsule,delayed release(DR/EC) 40 mg PO DAILY lisinopril 30 mg tablet 30 mg PO DAILY Referrals / Follow Up: Shane Saleh MD [Primary Care Provider] - Disposition Disposition (needs filled in before D/C Order can be placed): Home, Self Care
--- NOTE | 2024-10-10 08:28 | OP.PCM_ITS ---
Operative Report (Standard) Operative Information Date of Procedure: 10/10/24 Pre-Operative Diagnosis: Soft tissue mass, ganglion cyst left 1st toe Post-Operative Diagnosis: Same Surgery/Procedure Performed: Excision of soft tissue mass/cyst left 1st toe faculty neuropsychologist: Yes Social Work Associate: Tasks completed by assistant cross country coach: Opening & closing and Retracting Type of Anesthesia: MAC/Supplemental/Local RN Documented Start/Stop Times: Operation Date: 10/10/24 07:30 Case Time Into Pre-Op 10/10/24 06:04 Out of Pre-Op 10/10/24 07:24 Anesthesia Start 10/10/24 07:27 Into Room 10/10/24 07:27 Procedure Start 10/10/24 07:41 Procedure End 10/10/24 08:16 Anesthesia End 10/10/24 08:21 Out of Room 10/10/24 08:21 Into Recovery 10/10/24 08:24 Procedure Start Time: 07:41 Procedure Stop Time: 08:16 Select all DRAINS/GRAFTS/IMPLANTS that apply: None Estimated Blood Loss: < 1 mL Specimen collected: Yes Description of specimen(s) removed: Excised mass/cyst from left 1st toe sent to pathology Description of surgery: Tourniquet time was 35 minutes Surgical Findings: See above Complications Complications: No
--- NOTE | 2024-10-10 08:28 | PCM.OPRPT ---
Operative Report (Standard) Operative Information Date of Procedure: 10/10/24 Pre-Operative Diagnosis: Soft tissue mass, ganglion cyst left 1st toe Post-Operative Diagnosis: Same Surgery/Procedure Performed: Excision of soft tissue mass/cyst left 1st toe manager environmental affairs: Yes Door Serviceman: Tasks completed by first sampler: Opening & closing and Retracting Type of Anesthesia: MAC/Supplemental/Local RN Documented Start/Stop Times: Operation Date: 10/10/24 07:30 Case Time Into Pre-Op 10/10/24 06:04 Out of Pre-Op 10/10/24 07:24 Anesthesia Start 10/10/24 07:27 Into Room 10/10/24 07:27 Procedure Start 10/10/24 07:41 Procedure End 10/10/24 08:16 Anesthesia End 10/10/24 08:21 Out of Room 10/10/24 08:21 Into Recovery 10/10/24 08:24 Out of Recovery 10/10/24 08:36 Into Phase II Recovery 10/10/24 08:37 Out of Phase II 10/10/24 09:20 Procedure Start Time: 07:41 Procedure Stop Time: 08:16 Select all DRAINS/GRAFTS/IMPLANTS that apply: None Estimated Blood Loss: < 1 mL Specimen collected: Yes Description of specimen(s) removed: Excised mass/cyst from left 1st toe sent to pathology Description of surgery: Indications: 79 year old female with left 1st toe mass. Mass was drained in office but recurred. Left foot xrays and MRI have been obtained, and also aspirate from cyst was sent to pathology and findings consistent with ganglion cyst. Since the cyst recurred we discussed further options both nonsurgical and surgical. She elected to proceed with surgical excision of this. Discussed procedure, possible benefits vs risks, goals, expectations, estimated healing time, as well as alternative options. Alternative options include but not limited to monitoring, also repeat drainage/aspiration. She elected to proceed with surgical excision. The consent forms were reviewed with her and she freely signed them. All of her questions were answered. No guarantees or warranties were given nor implied. Operative Procedure: The patient was brought back to the operating room and was placed on the operating room table in the supine position. She was secured to the operating room table with a safety belt around her waist. The patient received 2 g of IV Ancef for antibiotic prophylaxis. A well padded pneumatic tourniquet was applied around her left ankle. She received MAC anesthesia per the anesthesia team. After the skin was cleansed with 70% Isopropyl alcohol a total of 9mL of 0.5% Bupivacaine plain was given as a lock nerve block to distal 1st ray of her left foot. A timeout was completed and the patient was properly identified and surgical plan was confirmed. The patient's left foot was scrubbed, prepped, and draped in normal aseptic fashion. Further attention was directed to her left 1st toe and there was noted to be a raised round soft tissue mass to the dorsal medial 1st toe consistent with a ganglion cyst. Her left foot was exsanguinated using an Esmarch bandage and elevation (without putting pressure on the cyst) and the left ankle pneumatic tourniquet was inflated to 250mmHg. A linear longitudinal skin incision was made overlying the cyst. Dissection was completed down to the cyst. The cyst was identified, and it was a lobulated soft tissue mass with a stalk coming from the 1st toe interphalangeal joint consistent with a ganglion cyst. There was noted to be a small defect/attenuation of the 1st toe interphalangeal joint capsule at this site. The cyst was impinging the dorsal medial 1st toe nerve. The cyst was carefully freed up and dissected free and was excised. It was sent to pathology. It was noted there was yellowish/clear jelly material within the cyst consistent with a ganglion cyst. The site was flushed out with copious amounts of normal saline solution and rest of the tissues to the site appeared to be healthy and viable, this includes the surrounding soft tissue, the bone and rest of the joint of the 1st toe interphalangeal joint. There was no necrosis or suspicious appearing tissue. The 1st toe interphalangeal joint capsule was reapproximated using 4-0 Vicryl and the skin was reapproximated using 4-0 Monocryl. The sutured skin incision was painted with Cavilon and steristrips were applied. Of note the cyst measured 1.5cm x 1.5cm and extended down to the 1st toe interphalangeal capsule joint. A dressing was applied which consisted of Betadine soaked adaptic, 4x4 gauze, Kerlix and hallie dressing. The left ankle pneumatic tourniquet was deflated (total tourniquet time was 35 minutes) and there was immediate return of warmth and perfusion to left foot with CFT < 2 seconds to all toes. The patient tolerated the procedure well and anesthesia well with no complications. The patient was transported from the operating room to the recovery room with vital signs stable and in good condition. Post operative orders were placed. Post operating instructions were reviewed with patient and her both pre and post operatively and also written discharge instructions were provided to them as well. Patient is going to follow up next week in office, sooner if needed. Surgical Findings: See above Complications Complications: No
--- NOTE | 2024-10-10 08:29 | POSTOPAN2_ITS ---
Anesthesia Postop Eval I Sum Postop Eval Completion status Anesthesia document: Postop Eval 1 completed: Yes Anesthesia Postop Eval I Summary Anesthesia Postop Eval I Summary: Anesthesia Postop Eval I: Assessment Summary Airway patent Yes 10/10/24 08:19 [email or web address] Spontaneous unlabored Yes 10/10/24 08:19 FUNERAL [email or web address].[email or web address] respirations Mental status Awake,Calm 10/10/24 08:19 FUNERAL [email or web address] nausea No 10/10/24 08:19 FUNERAL ATTENDANT.[email or web address] Vomiting No 10/10/24 08:19 FUNERAL ATTENDANT.[email or web address] Anesthesia Postop Eval I: Fluid Summary Crystalloid volume administer 10 10/10/24 08:19 FUNERAL [email or web address].[email or web address] (ml) Colloids volume administered ( ml) Blood Product volume administered (ml) Total IV fluid infused 10 10/10/24 08:19 FUNERAL ATTENDANT.[email or web address] Anesthesia Postop Eval I: Summary Notes Anesthesia Complication No 10/10/24 08:19 FUNERAL ATTENDANT.[email or web address] Anesthesia Complication Comment: Post-operative progress note Anesthesia: Postop Eval II Evaluation Mental status: Awake Pain Level: 0 nausea: No Vomiting: No
--- NOTE | 2024-10-10 08:29 | PCM.POSTANE2 ---
Anesthesia Postop Eval I Sum Postop Eval Completion status Anesthesia document: Postop Eval 1 completed: Yes Anesthesia Postop Eval I Summary Anesthesia Postop Eval I Summary: Anesthesia Postop Eval I: Assessment Summary Airway patent Yes 10/10/24 08:19 CLIENT [email or web address] Spontaneous unlabored Yes 10/10/24 08:19 CLIENT PARTNER.[email or web address] respirations Mental status Awake,Calm 10/10/24 08:19 CLIENT [email or web address] nausea No 10/10/24 08:19 CLIENT PARTNER.[email or web address] Vomiting No 10/10/24 08:19 CLIENT PARTNER.[email or web address] Anesthesia Postop Eval I: Fluid Summary Crystalloid volume administer 10 10/10/24 08:19 CLIENT [email or web address].[email or web address] (ml) Colloids volume administered ( ml) Blood Product volume administered (ml) Total IV fluid infused 10 10/10/24 08:19 CLIENT PARTNER.[email or web address] Anesthesia Postop Eval I: Summary Notes Anesthesia Complication No 10/10/24 08:19 CLIENT PARTNER.[email or web address] Anesthesia Complication Comment: Post-operative progress note Anesthesia: Postop Eval II Evaluation Mental status: Awake Pain Level: 0 nausea: No Vomiting: No
== END 2024-10-10 09:20 | disposition home or self-care (01) ==
LOC: SDC 05:45 → AC 05:48
PROVIDERS: PCP Family Medicine; Referring Provider Podiatrist; Visit Provider Podiatrist
PROC: (CPT 28092; principal; 2024-10-10 07:15)
DX: M67.472 Ganglion, left ankle and foot (principal); N18.30 Chronic kidney disease, stage 3 unspecified; I12.9 Hypertensive chronic kidney disease with stage 1 through stage 4 chronic kidney disease, or unspecified chronic kidney disease; Z79.899 Other long term (current) drug therapy
CPT/HCPCS: 28092; 01470; 88304; A4216

== ENCOUNTER → 2024-11-11 | Outpatient (CLI) | payer MEDICARE, SELFPAY ==
[2024-11-11 12:50] LABS: Absolute Lymphocyte Count 1.08 X10^3/uL (0.83-4.51); Absolute Neutrophil Count 2.7 X10^3/uL (2.0-7.7); Basophil# 0.02 X10^3/uL; Basophil% 0.5 % (0-1); Eosinophil# 0.03 X10^3/uL; Eosinophils% 0.7 % (0-5); Hematocrit 35.6 % (37-47); Hemoglobin 11.8 g/dL (12.0-15.0); Lymphocyte # 1.08 X10^3/ul (0.83-4.51); Lymphocyte % 25.4 % (19-41); Mean Corp Hgb Conc 33.1 g/dL (32-36); Mean Corpuscular Hgb 32.1 pg (27.0-32.0); Mean Corpuscular Volume 96.7 fL (81-99); Monocyte# 0.41 X10^3/uL; Monocyte% 9.6 % (0-10); NRBC Flagged by Analyzer 0 % (0-5); Neutrophil % 63.3 % (47-70); Platelet Count 270 K/mm3 (150-450); RBC Distribution Width CV 13.5 % (11.6-14.6); RBC Distribution Width SD 48.2 fl (35.1-43.9); Red Blood Count 3.68 M/mm3 (4.2-5.4); White Blood Count 4.3 K/mm3 (4.4-11.0)
[2024-11-11 13:23] LABS: ALB/GLOB Ratio 1.4 RATIO (0.9-2.4); AST(SGOT) 24 U/L (<=31); Alanine Aminotransfer ALT/SGPT 15 U/L (<=34); Albumin, Serum 4.2 g/dL (3.4-4.8); Alkaline Phosphatase 92 U/L (35-104); Anion Gap 13 (5-15); BUN 12 mg/dL (4-19); BUN/Creat Ratio 13.2 RATIO (10-20); Calcium,Total 9.8 mg/dL (7.6-11.0); Carbon Dioxide 22.5 mmol/L (21.0-32.0); Chloride 103 mmol/L (98-108); Creatinine, Serum 0.92 mg/dL (0.70-1.20); EST Glomerular Filtration Rate 63 (>60); Glucose 108 mg/dL (70-99); Potassium 4.2 mmol/L (3.3-5.1); Protein, Total 7.2 g/dL (5.9-8.4); Sodium Level 139 mmol/L (133-145); Total Bilirubin 0.34 mg/dL (0.00-1.30)
== END | disposition home or self-care (01) ==
LOC: MTLAB 09:01
PROVIDERS: PCP Family Medicine; Referring Provider Internal Medicine Rheumatology; Visit Provider Internal Medicine Rheumatology
DX: M06.4 Inflammatory polyarthropathy (principal); Z79.899 Other long term (current) drug therapy; M79.7 Fibromyalgia
CPT/HCPCS: 36415; 80053; 85025

== ENCOUNTER → 2025-03-10 | Outpatient (CLI) | payer MEDICARE, SELFPAY ==
--- NOTE | 2025-03-10 10:21 | RAD_ITS ---
EXAM: XR Abdomen, 1 View CLINICAL INDICATION: KUB- KIDNEY STONE TECHNIQUE: Frontal supine view of the abdomen/pelvis. COMPARISON: No relevant prior studies available. FINDINGS: GASTROINTESTINAL TRACT: Unremarkable. No dilation. ORGANS: Stool burden limits evaluation of subtle renal calculi. No gross nephrolithiasis. BONES/JOINTS: Unremarkable. No acute fracture. RAD/Abdomen Single View IMPRESSION: Stool burden limits evaluation of subtle renal calculi. No gross nephrolithias is. Reading Location: [facility]
== END | disposition home or self-care (01) ==
LOC: MTRAD 10:20
PROVIDERS: PCP Family Medicine; Referring Provider Urology; Visit Provider Urology
DX: N20.0 Calculus of kidney (principal)
CPT/HCPCS: 74018

== ENCOUNTER → 2025-05-06 | Outpatient (CLI) | payer MEDICARE, SELFPAY ==
[2025-05-06 12:33] LABS: Hematocrit 35.3 % (37-47); Hemoglobin 11.6 g/dL (12.0-15.0); Immature Granulocytes Count 0.040 X10^3/uL (0.0-0.0); Mean Corp Hgb Conc 32.9 g/dL (32-36); Mean Corpuscular Volume 97.0 fL (81-99); Mean Platelet Vol. 9.1 fl (6.2-12.0); NRBC Flagged by Analyzer 0 % (0-5); Platelet Count 259 K/mm3 (150-450); RBC Distribution Width CV 13.3 % (11.6-14.6); RBC Distribution Width SD 47.6 fl (35.1-43.9); Red Blood Count 3.64 M/mm3 (4.2-5.4); White Blood Count 4.5 K/mm3 (4.4-11.0)
[2025-05-06 13:03] LABS: AST(SGOT) 21 U/L (<=31); Alanine Aminotransfer ALT/SGPT 16 U/L (<=34); Albumin, Serum 4.1 g/dL (3.4-4.8); Alkaline Phosphatase 83 U/L (35-104); Anion Gap 13 (5-15); BUN 13 mg/dL (4-19); BUN/Creat Ratio 13.0 RATIO (10-20); Calcium,Total 10.0 mg/dL (7.6-11.0); Carbon Dioxide 22.7 mmol/L (21.0-32.0); Chloride 104 mmol/L (98-108); Globulin 2.8 g/dL (2.2-4.2); Glucose 110 mg/dL (70-99); Potassium 3.7 mmol/L (3.3-5.1)
== END | disposition home or self-care (01) ==
LOC: MTLAB 09:36
PROVIDERS: PCP Family Medicine; Referring Provider Internal Medicine Rheumatology; Visit Provider Internal Medicine Rheumatology
DX: M06.4 Inflammatory polyarthropathy (principal); M79.7 Fibromyalgia; Z79.899 Other long term (current) drug therapy
CPT/HCPCS: 36415; 80053; 85025

== ENCOUNTER → 2025-06-22 | Outpatient (CLI) | payer MEDICARE, SELFPAY | END | disposition home or self-care (01) | PROVIDERS: PCP Family Medicine | DX: R61 Generalized hyperhidrosis (principal) | CPT/HCPCS: 36415; 84443 ==

== ENCOUNTER → 2025-06-25 | Outpatient (CLI) | payer MEDICARE, SELFPAY | END | disposition home or self-care (01) | LOC: MTLAB 10:01 | PROVIDERS: PCP Family Medicine | DX: R61 Generalized hyperhidrosis (principal) | CPT/HCPCS: 36415; 83036 ==

== ENCOUNTER → 2025-07-02 | Outpatient (CLI) | payer MEDICARE, SELFPAY ==
--- NOTE | 2025-07-02 11:25 | RAD_ITS ---
PROCEDURE: RAD/Chest PA and Lateral
== END | disposition home or self-care (01) ==
LOC: MTRAD 11:23
PROVIDERS: PCP Family Medicine; Referring Provider Family Medicine; Visit Provider Family Medicine
DX: R06.02 Shortness of breath (principal)
CPT/HCPCS: 71046